=== PATIENT | female | born 1945 | race Caucasian/White ===

== ENCOUNTER 2018-06-27 11:16 | Observation (INO) | payer MEDICARE, SELFPAY ==
[2018-06-27 11:18] VITALS: BP 145/98; PULSE 59; RESP 18; TEMP 36.7; O2SAT 100
--- NOTE | 2018-06-27 11:41 | RAD_ITS ---
STUDY: X-RAY - RIGHT HIP REASON FOR EXAM: Female, 72 years old. Right hip pain. No known injury. TECHNIQUE: 2 views of the hip. COMPARISON: Comparison is made with prior study dated November 26, 2016. FINDINGS: The patient is status post Tejinder's pinning and side plate fixation of the right intertrochanteric fracture. This is unchanged. Healed right superior and inferior pubic rami fractures. RAD/HIP, UNI W/ Pelvis 2-3 Views IMPRESSION: No acute abnormality is seen. Electronically Signed: Martinez Amin, at 13:31 EST , Service support ,
[2018-06-27 12:17] LABS: Hematocrit 49.4 % (37-47); Mean Corp Hgb Conc 32.4 g/gl (32-36); Mean Corpuscular Volume 101.9 fL (81-99); Platelet Count 276 K/mm3 (150-450); RBC Distribution Width CV 14.8 % (11.6-14.6); RBC Distribution Width SD 52.8 fl (35.1-43.9); Red Blood Count 4.85 M/mm3 (4.2-5.4); White Blood Count 9.9 K/mm3 (4.4-11.0)
[2018-06-27] MEDS: HYDROcodone Bitartrate/Apap 5/325 Tablet PO (12:17)
[2018-06-27 12:18] LABS: Scan Indicated on CBC? Y/N NO
[2018-06-27 13:17] VITALS: BP 143/78; PULSE 61; RESP 17; O2SAT 97
[2018-06-27 13:36] LABS: International Normalized Ratio 1.1
[2018-06-27 13:37] LABS: Partial Thromboplast Time 27.7 Seconds (24.1-36.2)
[2018-06-27 13:41] LABS: ALB/GLOB Ratio 1.1 RATIO (0.9-2.4); AST(SGOT) 20 U/L (15-37); Alanine Aminotransfer ALT/SGPT 16 U/L (13-56); Alkaline Phosphatase 129 U/L (45-117); Anion Gap 11 (5-15); BUN 12 mg/dL (7-18); BUN/Creat Ratio 18.8 RATIO (10-20); Calcium,Total 8.1 mg/dL (8.5-10.1); Chloride 106 mmol/L (98-107); Creatinine, Serum 0.64 mg/dL (0.55-1.02); EST Glomerular Filtration Rate 98 mL/min (>60); Est Glom Filt Rate - Afr Amer 118 mL/min (>60); Estimated Creatinine Clearance 42.39 ml/min; Globulin 3.8 g/dL (2.2-4.2); Glucose 85 mg/dL (74-106); Protein, Total 7.8 g/dL (6.4-8.2); Sodium Level 141 mmol/L (136-145)
--- NOTE | 2018-06-27 14:50 | ED.DCSUM_ITS ---
- ER Visit Summary Date of Service: 06/27/18 Chief Complaint: Right leg pain History of Present Illness: The patient is a 72 F who states that when she woke this morning she had pain in her right leg. She describes it as being in the hip down the thigh and hamstring and into the calf. She states that it i ntermittently gets worse. She denies any rash. She denies any trauma. She has had prior orthopedic pinning of the right hip. She states that she has fallen twice because of the pain. She has history of hypertension hypothyroidism. She tells me she only has a glass of wine at nighttime. However from looking at prior records she has a history of alcoholism. She states that she has not had anything since last night. She is a long-term smoker. Physical Examination: Afebrile vital signs are stable Gen: Well-nourished well-developed Head: Normocephalic atraumatic Eyes: Perrl EOMI ENT: TMs clear no rhinorrhea moist mucous membranes Neck: Supple no lymphadenopathy no JVD nontender CVS: Regular rate rhythm no murmurs normal S1-S2 Respiratory: No distress clear to auscultation bilaterally chest nontender Abdomen: Soft nontender nondistended normal bowel sounds no masses Back: Nontender Extremity: Patient has intermittent tenderness to palpation of the calf hamstrin g and thigh musculature. There is no deformity. She is moving the extremity with full range of motion. Skin: Normal color no rash Neuro: alert orientated ?3 CN II-XII intact normal strength sensation reflexes Psych: Normal affect normal mood Test Results: Basic labs were negative. Alcohol level is 229. X-rays of the hip and pelvis were negative for fracture. Emergency Department Course and Treatment: Patient received 2 Macomb's and a liter of IV fluids. Patient states that the Macomb has not really helped. She reports continued discomfort. At this point I do not see an obvious cause for the patient's pain. She is rather cachectic and there is no edema or palpable cords. There is no obvious deformities. I discussed with her admission for physical therapy and for further evaluation as well as treatment for her alcoholism. She declines this. However she is unable to ambulate from the bed to the door. She is requiring assistance by nursing and a bedside commode. Impression: 1. Right leg pain 2. Alcoholism This note was generated with Dragon dictation software. It may contain incorrect words, spelling, and punctuation that were not noted in review of the chart prior to signing ED Disposition - Plan for ED Patient: Disposition: Home or Assisted Living Instructions: Possible Causes of Low Back or Leg Pain Referrals: Michael Brownlee MD [NON-STAFF] - (as soon as possible)
[2018-06-27] MEDS: 0.9% Normal Saline 1,000 ML 999 ML IV (14:54)
[2018-06-27 15:00] VITALS: BP 149/77; PULSE 63; RESP 17; O2SAT 97
--- NOTE | 2018-06-27 15:24 | RAD_ITS ---
STUDY: X-RAY - RIGHT KNEE REASON FOR EXAM: Female, 72 years old. Status post fall, pain TECHNIQUE: 4 view(s) of the knee. COMPARISON: None. FINDINGS: There is demineralization of the visualized distal femur. There is demineralization of the tibia and fibula. Normal proximal tibiofibular articulation. There is mild degenerative arthrosis of the medial femorotibial compartment. Normal lateral femorotibial compartment. There is mild degenerative arthrosis of the patellofemoral articulation. The soft tissue structures are unremarkable. RAD/Knee 4 or More Views IMPRESSION: Bony osteopenia. No visualized fracture. Electronically Signed: Stephanie Garner MD at 16:52 EST Tel , Service support ,
--- NOTE | 2018-06-27 16:27 | CM.ED ---
Social Work Assessment Referral Date: 07/11/18 Date of Assessment: 07/11/18 Informant: DR. HASSAN Reason for Consult: D/C PLANNING, POSSIBLE ALCOHOL ABUSE Information obtained from: PATIENT Living Arrangements: PATIENT LIVES HOME ALONE IN A 1 STORY APARTMENT WITH 0 STEPS TO ENTER. Employment/Financial: RETIRED FROM [employer]. DENIES ANY FINANCIAL ISSUES/CONCERNS. Supports: PATIENT STATES UTILIZES MEALS ON WHEELS AND HAS GOOD SUPPORT FROM CHILDREN. Social/Family Stressors: PATIENT CONCERNED WITH WHAT IS CAUSING HER PAIN. EMOTIONAL SUPPORT PROVIDED. Mental Health History: PATIENT ADMITS TO HX OF ANXIETY AND DEPRESSION WHEN HER . PATIENT REPORTS IN HIS LATER 30'S. PATIENT STATES WAS TREATED WITH MEDICATION AT THAT TIME. Substance Abuse History: PATIENT ADMITS TO ALCOHOL USE. PATIENT REPORTS DRINKS A GLASS OR MORE OF WINE EVERY NIGHT. PATIENT DOES NOT VIEW USE OF ALCOHOL A PROBLEM. Interventions: SOCIAL SERVICE ASSESSMENT EDUCATION AND EMOTIONAL SUPPORT Assessment: PATIENT IS A 72 Y/O FEMALE WHO PRESENTS TO THE ED WITH HIP PAIN. NURSING REPORTS ATTEMPTED TO WALK PATIENT AND PATIENT UNABLE TO AMBULATE SAFELY. DR. HASSAN REQUESTED THIS WORKER FOLLOW UP WITH PATIENT TO DISCUSS D/C PLANNING AND ALCOHOL USE PATIENT'S ALCOHOL LEVEL WAS A 229 UPON ARRIVAL. PATIENT STATES HAS HX OF R HIP FRACTURE AND STATES PAIN IS RADIATING DOWN RIGHT LEG. PATIENT STATES DID NOT FALL AND DOES NOT UNDERSTAND WHAT IS CAUSING ALL OF HER PAIN. PATIENT DOES NOT FEEL SAFE RETURNING HOME NOT BEING ABLE TO WALK SHE LIVES HOME ALONE. PATIENT STATES DME IN THE HOME CONSISTS OF WALKER, GRAB BARS, AND SHOWER CHAIR. PATIENT REPORTS HAS HAD HOME HEALTH SERVICES IN THE PAST ALONG WITH A SNF STAY AT [facility] AFTER HIP SURGERY 3-4 YEARS AGO. PATIENT REPORTS UTILIZES MEALS ON WHEELS AND DAUGHTER ASSISTS WITH TRANSPORTATION, [employer]OPPING AND LAUNDRY. PATIENT ADMITS TO HX OF ANXIETY AND DEPRESSION WHEN . PATIENT STATES AT THAT TIME, SHE WAS TREATED WITH MEDICATION. PATIENT ADMITS TO ALCOHOL USE. PATIENT STATES DRINKS A GLASS OR MORE OF WINE A NIGHT. PATIENT DOES NOT VIEW USE OF ALCOHOL A PROBLEM. INFORMED PATIENT A COMMERCIAL INSULATOR WILL BE FOLLOWING UP TOMORROW TO DISCUSS D/C PLANNING. PATIENT VERBALIZED UNDERSTANDING AND IS HOPING TO RETURN HOME UPON D/C. UPDATED NURSING AND DR. HASSAN ON THIS WORKER'S ASSESSMENT OF PATIENT. PLAN: PER DR. HASSAN, ANTICIPATE ADMISSION
[2018-06-27 17:17] VITALS: BP 164/78; PULSE 78; RESP 14; O2SAT 99
--- NOTE | 2018-06-27 18:17 | PCM.HP.STD ---
Problem List (1) Right knee pain Status: Acute Qualifiers: Chronicity: acute Qualified Code(s): M25.561 - Pain in right knee History of Present Illness Date of Admission: 06/27/18 Chief Complaint: right leg pain. The patient is a 72 year old F who has falls that she has no idea how the occur and had several last night. She does not recall how they happened or how she winds up but noted that when she try to get up this morning, her right leg hurts. Patient described the pain in her thigh near the anterior and posteriorly as well as her calf. Is never had anything like this before. She presented to the emergency room with this complaint and had a knee and hip x-ray that were negative for any acute fracture. Patient states that she drinks a glass to and 1/2-2 glasses of wine per night. Her last drink was sometime last evening. She denies any additional alcohol and denies any alcohol today, however, her alcohol level came at 229. Patient seem to scoffed at that notion of that her alcohol level should not be that high if she only had a glass and a half or 2 glasses of wine last night. [] Past Medical History Past Medical History (Chronic Problems): Chronic Problems Tobacco user (Chronic) Hypothyroidism (Chronic) Essential hypertension (Chronic) Chronic pain syndrome (Chronic) Alcoholic cirrhosis (Chronic) Alcohol abuse (Chronic) Allergies No Known Allergies Allergy (Verified 06/27/18 11:21) Home Medications: Ambulatory Orders Medication Instructions Recorded Sertraline HCl [Zoloft] 50 mg PO DAILY tablet 11/29/16 Levothyroxine [Synthroid] 75 mcg PO DAILY 06/27/18 Surgical History: appendectomy, hysterectomy, tonsillectomy, - - Right hip surgery Psychiatric History: No pertinent psych hx 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 Smoking Status: Heavy Smoker (>10/day) Tobacco Use: Cigarettes Alcohol: Heavy Drugs: None - *Family History Maternal History Items: Heart Disease Paternal History Items: Cancer - Suspected, Diabetes, Heart Disease Review of Systems Constitutional: Denies: Anorexia, Chills, Fever Eyes: Denies: Blurred vision, Double vision HEENT: Denies: Head Aches, Sinus Congestion, Sinus Drainage Cardiovascular: Denies: Chest Pain, Palpitations Respiratory: Denies: Cough, Shortness of breath at rest, Sputum production Gastrointestinal: Denies: Abdominal Pain, Constipation, Diarrhea Genitourinary: Denies: Dysuria Musculoskeletal: Reports: Joint Pain - Right knee pain, Leg Pain - Right leg pain Skin: Denies: Dryness, Jaundice Neurological: Reports: Balance problems. Denies: Blurred vision, Double vision Psychiatric: Denies: Anxiety, Depression, Homicidal Ideations, Suicidal Ideations Endocrine: Denies: Change in Body Habitus, Heat/ Cold Intolerance Hematologic/ Lymphatic: Denies: Easy Bruising, Easy Bleeding, Hx of blood clot Comment: A 10 point review of systems were negative except as mentioned in the history of present illness and the other review of systems. VTE Information - Inpt Only VTE Present on Admission: No VTE Mechan Device Prophylaxis: None VTE Pharm Prophylaxis ordered?: Yes Patient Problems: Active and Suspected Problems Right knee pain (Acute) - Physical Exam General: Alert, Cooperative, No apparent distress, - - Cachectic. Afebrile. HEENT: Atraumatic, PERRLA, EOMI, Normocephalic Oral: Moist Mucosa, No Gingival or Mucosal Lesions/ Ulcerations Neck: No Nodes, Thyroid Normal Size and Texture Lungs: Clear to auscultation, Normal air movement, No rhonchi, No wheeze Cardiovascular: Regular rate, Regular Rhythm, Normal S1, Normal S2, No murmurs Abdomen: Bowel Sounds Present, Soft, Non Tender, Non-Distended, No Hepato-splenomegaly Extremities: No edema, No Calf Tenderness Skin: No rashes, No breakdown Musculoskeletal: Cachexia, Muscle Wasting, - - No right knee effusion but tender to palpation at the tibial plateau. Also tender palpation medially along the knee joint. Psych/Mental Status: Normal Affect, Appropriate Vital Signs Temp Pulse Resp BP Pulse Ox 36.7 C 78 14 164/78 H 99 06/27/18 11:18 06/27/18 17:17 06/27/18 17:17 06/27/18 17:17 06/27/18 17:17 Oxygen Delivery Method Room Air Weight: 51.3 kg Body Mass Index (BMI) 20.0 Laboratory Tests Past 24 Hrs 06/27/18 06/27/18 06/27/18 11:55 11:55 11:55 WBC 9.9 RBC 4.85 Hgb 16.0 H Hct 49.4 H MCV 101.9 H MCH 33.0 H MCHC 32.4 RDW 14.8 H RDW Differential 52.8 H Plt Count 276 MPV 9.0 PT Cancelled INR Cancelled APTT Cancelled Sodium Cancelled Potassium Cancelled Chloride Cancelled Carbon Dioxide Cancelled Anion Gap Cancelled BUN Cancelled Creatinine Cancelled Estim Creat Clear Calc Cancelled Est GFR (MDRD) Af Amer Cancelled Est GFR (MDRD) Non-Af Cancelled BUN/Creatinine Ratio Cancelled Glucose Cancelled Calcium Cancelled Magnesium Cancelled Total Bilirubin Cancelled AST Cancelled ALT Cancelled Alkaline Phosphatase Cancelled Total Protein Cancelled Albumin Cancelled Globulin Cancelled Albumin/Globulin Ratio Cancelled Ethyl Alcohol 06/27/18 06/27/18 06/27/18 12:20 13:15 13:15 WBC RBC Hgb Hct MCV MCH MCHC RDW RDW Differential Plt Count MPV PT 14.0 INR 1.1 APTT 27.7 Sodium 141 Potassium 4.0 Chloride 106 Carbon Dioxide 24.0 Anion Gap 11 BUN 12 Creatinine 0.64 Estim Creat Clear Calc 42.39 Est GFR (MDRD) Af Amer 118 Est GFR (MDRD) Non-Af 98 BUN/Creatinine Ratio 18.8 Glucose 85 Calcium 8.1 L Magnesium 2.0 Total Bilirubin 0.20 AST 20 ALT 16 Alkaline Phosphatase 129 H Total Protein 7.8 Albumin 4.0 Globulin 3.8 Albumin/Globulin Ratio 1.1 Ethyl Alcohol 229.0 Clinical Impression(s) from Imaging Studies Hip/Pelvis X-Ray 06/27/18 11:41 IMPRESSION: No acute abnormality is seen. Electronically Signed: Martinez Amin, at 13:31 EST , Service support , Knee X-Ray 06/27/18 15:24 IMPRESSION: Bony osteopenia. No visualized fracture. Electronically Signed: Stephanie Garner MD at 16:52 EST Tel , Service support , Assessment/Plan All Active Problems Right knee pain (Acute) Fracture of inferior pubic ramus (Acute) 1. Right knee pain: Secondary to her fall. No obvious fracture on x-rays. Will order an MRI given her does not have a hairline fracture. Osteopenia was noted on the x-ray so I will check a 25-hydroxy vitamin D level. 2. Debility: We will have physical and occupational therapy evaluate her see if she requires any higher level care upon discharge. 3. Alcohol abuse: 229. Patient states that she only drank a glass or 2 glasses of wine last night. Either way there is no way that her that high roughly 18 hours after her last drink. I suspect you have the patient drank way more than a glass or 2 of wine or she is drinking this morning. On patient's history she has a history of alcohol abuse and alcoholic cirrhosis. Will start patient on thiamine and folate and monitor the patient closely for any signs or symptoms of alcohol withdrawal. Patient apparently told the ER doctor that she was concerned about delirium tremens but when I brought that up to her, patient denies she ever said that. 4. DVT prophylaxis with Lovenox 5. Falls: Patient states that she has no idea why she is falling. I presume is probably because she is intoxicated/inebriated. We will monitor the patient while she was here to see has any further events. Code Visit OBSV E&M: 21447 Initial observation care L3
--- NOTE | 2018-06-27 18:21 | HP.PCM_ITS ---
Problem List (1) Right knee pain Status: Acute Qualifiers: Chronicity: acute Qualified Code(s): M25.561 - Pain in right knee History of Present Illness Date of Admission: 06/27/18 Chief Complaint: right leg pain. The patient is a 72 year old F who has falls that she has no idea how the occur and had several last night. She does not recall how they happened or how she winds up but noted that when she try to get up this morning, her right leg hurts. Patient described the pain in her thigh near the anterior and posteriorly as well as her calf. Is never had anything like this before. She p resented to the emergency room with this complaint and had a knee and hip x-ray that were negative for any acute fracture. Patient states that she drinks a glass to and 1/2-2 glasses of wine per night. Her last drink was sometime last evening. She denies any additional alcohol and denies any alcohol today, however, her alcohol level came at 229. Patient seem to scoffed at that notion of that her alcohol level should not be that high if she only had a glass and a half or 2 glasses of wine last night. 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 [employer]ESSION[employer]ISTICS history Smoking Status: Heavy Smoker (>10/day) Tobacco Use: Cigarettes Alcohol: Heavy Drugs: None - *Family History Maternal History Items: Heart Disease Paternal History Items: Cancer - Suspected, Diabetes, Heart Disease Review of Systems Constitutional: Denies: Anorexia, Chills, Fever Eyes: Denies: Blurred vision, Double vision HEENT: Denies: Head Aches, Sinus Congestion, Sinus Drainage Cardiovascular: Denies: Chest Pain, Palpitations Respiratory: Denies: Cough, Shortness of breath at rest, Sputum production Gastrointestinal: Denies: Abdominal Pain, Constipation, Diarrhea Genitourinary: Denies: Dysuria Musculoskeletal: Reports: Joint Pain - Right knee pain, Leg Pain - Right leg pain Skin: Denies: Dryness, Jaundice Neurological: Reports: Balance problems. Denies: Blurred vision, Double vision Psychiatric: Denies: Anxiety, Depression, Homicidal Ideations, Suicidal Ideations Endocrine: Denies: Change in Body Habitus, Heat/ Cold Intolerance Hematologic/ Lymphatic: Denies: Easy Bruising, Easy Bleeding, Hx of blood clot Comment: A 10 point review of systems were negative except as mentioned in the history of present illness and the other review of systems. VTE Information - Inpt Only VTE Present on Admission: No VTE Mechan Device Prophylaxis: None VTE Pharm Prophylaxis ordered?: Yes Patient Problems: Active and Suspected Problems Right knee pain (Acute) - Physical Exam General: Alert, Cooperative, No apparent distress, - - Cachectic. Afebrile. HEENT: Atraumatic, PERRLA, EOMI, Normocephalic Oral: Moist Mucosa, No Gingival or Mucosal Lesions/ Ulcerations Neck: No Nodes, Thyroid Normal Size and Texture Lungs: Clear to auscultation, Normal air movement, No rhonchi, No wheeze Cardiovascular: Regular rate, Regular Rhythm, Normal S1, Normal S2, No murmurs Abdomen: Bowel Sounds Present, Soft, Non Tender, Non-Distended, No Hepato- splenomegaly Extremities: No edema, No Calf Tenderness Skin: No rashes, No breakdown Musculoskeletal: Cachexia, Muscle Wasting, - - No right knee effusion but tender to palpation at the tibial plateau. Also tender palpation medially along the knee joint. Psych/Mental Status: Normal Affect, Appropriate Vital Signs Temp Pulse Resp BP Pulse Ox 36.7 C 78 14 164/78 H 99 06/27/18 11:18 06/27/18 17:17 06/27/18 17:17 06/27/18 17:17 06/27/18 17:17 Oxygen Delivery Method Room Air Weight: 51.3 kg Body Mass Index (BMI) 20.0 Laboratory Tests Past 24 Hrs 06/27/18 06/27/18 06/27/18 11:55 11:55 11:55 WBC 9.9 RBC 4.85 Hgb 16.0 H Hct 49.4 H MCV 101.9 H MCH 33.0 H MCHC 32.4 RDW 14.8 H RDW Differential 52.8 H Plt Count 276 MPV 9.0 PT Cancelled INR Cancelled APTT Cancelled Sodium Cancelled Potassium Cancelled Chloride Cancelled Carbon Dioxide Cancelled Anion Gap Cancelled BUN Cancelled Creatinine Cancelled Estim Creat Clear Calc Cancelled Est GFR (MDRD) Af Amer Cancelled Est GFR (MDRD) Non-Af Cancelled BUN/Creatinine Ratio Cancelled Glucose Cancelled Calcium Cancelled Magnesium Cancelled Total Bilirubin Cancelled AST Cancelled ALT Cancelled Alkaline Phosphatase Cancelled Total Protein Cancelled Albumin Cancelled Globulin Cancelled Albumin/Globulin Ratio Cancelled Ethyl Alcohol 06/27/18 06/27/18 06/27/18 12:20 13:15 13:15 WBC RBC Hgb Hct MCV MCH MCHC RDW RDW Differential Plt Count MPV PT 14.0 INR 1.1 APTT 27.7 Sodium 141 Potassium 4.0 Chloride 106 Carbon Dioxide 24.0 Anion Gap 11 BUN 12 Creatinine 0.64 Estim Creat Clear Calc 42.39 Est GFR (MDRD) Af Amer 118 Est GFR (MDRD) Non-Af 98 BUN/Creatinine Ratio 18.8 Glucose 85 Calcium 8.1 L Magnesium 2.0 Total Bilirubin 0.20 AST 20 ALT 16 Alkaline Phosphatase 129 H Total Protein 7.8 Albumin 4.0 Globulin 3.8 Albumin/Globulin Ratio 1.1 Ethyl Alcohol 229.0 Clinical Impression(s) from Imaging Studies Hip/Pelvis X-Ray 06/27/18 11:41 IMPRESSION: No acute abnormality is seen. Electronically Signed: Martinez Amin, at 13:31 EST , Service support , Knee X-Ray 06/27/18 15:24 IMPRESSION: Bony osteopenia. No visualized fracture. Electronically Signed: Stephanie Garner MD at 16:52 EST Tel , Service support , Assessment/Plan All Active Problems Right knee pain (Acute) Fracture of inferior pubic ramus (Acute) 1. Right knee pain: Secondary to her fall. No obvious fracture on x-rays. Will order an MRI given her does not have a hairline fracture. Osteopenia was noted on the x-ray so I will check a 25-hydroxy vitamin D level. 2. Debility: We will have physical and occupational therapy evaluate her see if she requires any higher level care upon discharge. 3. Alcohol abuse: 229. Patient states that she only drank a glass or 2 glasses of wine last night. Either way there is no way that her that high roughly 18 hours after her last drink. I suspect you have the patient drank way more than a glass or 2 of wine or she is drinking this morning. On patient's history she has a history of alcohol abuse and alcoholic cirrhosis. Will start patient on thiamine and folate and monitor the patient closely for any signs or symptoms of alcohol withdrawal. Patient apparently told the ER doctor that she was concerned about delirium tremens but when I brought that up to her, patient denies she ever said that. 4. DVT prophylaxis with Lovenox 5. Falls: Patient states that she has no idea why she is falling. I presume is probably because she is intoxicated/inebriated. We will monitor the patient while she was here to see has any further events. Code Visit OBSV E&M: 18936 Initial observation care L3
--- NOTE | 2018-06-27 18:26 | NURSING ---
207 RT KNEE PAIN JOSSUE
[2018-06-27] MEDS: oxyCODONE 5 MG Tablet PO (19:00)
[2018-06-27 19:45] VITALS: BP 162/106; PULSE 71; RESP 18; TEMP 36.6; O2SAT 99
[2018-06-27 19:53] VITALS: BMI 19.6
[2018-06-27 20:10] LABS: Prealbumin 30.9 mg/dL (20.0-40.0); Thyroid Stim Hormone (TSH) 1.13 uIU/mL (0.358-3.74)
[2018-06-27] MEDS: Acetaminophen 325 MG Tablet 650 MG PO (20:11)
[2018-06-27 20:28] LABS: Vitamin D,25 Hydroxy < 4.2 ng/mL (29.95-100.01)
[2018-06-27] MEDS: oxyCODONE 5 MG Tablet 10 MG PO (22:58)
[2018-06-28 02:12] VITALS: BP 167/73; PULSE 75; RESP 18; TEMP 36.9; O2SAT 99
[2018-06-28] MEDS: Acetaminophen 325 MG Tablet 650 MG PO ×2 (02:14→09:14)
[2018-06-28] MEDS: 0.9% NaCl Peripheral Flush Adult/Peds IV (03:56)
[2018-06-28] MEDS: Ketorolac 15 MG/ML Vial IV (03:56)
[2018-06-28] MEDS: Levothyroxine 75 MCG Tablet PO (05:57)
[2018-06-28] MEDS: oxyCODONE 5 MG Tablet 10 MG PO (05:57)
--- NOTE | 2018-06-28 07:30 | MRI_ITS ---
STUDY: MRI RIGHT KNEE REASON FOR EXAM: Female, 72 years old. Right knee pain TECHNIQUE: Standardized fat and water weighted pulse sequences were obtained in all 3 orthogonal planes. COMPARISON: None. FINDINGS: Normal medial meniscus. Normal hyaline cartilage of the medial femorotibial compartment. Normal medial femoral condyle . There is mild to moderate marrow edema in the posterior medial tibial plateau without evidence of fracture. There is mild edema superficial to the MCL and mild thickening without evidence of tear. There is mild high signal and thickening in the semimembranosus distal tendon. Normal distal gracilis and semitendinosus tendons. Normal lateral meniscus. Normal hyaline cartilage of the lateral femorotibial compartment. Normal lateral femoral condyle and tibial plateau. Normal proximal tibiofibular articulation. Normal lateral collateral (fibular) ligament. Normal popliteus tendon. Normal biceps femoris tendon. Normal anterior cruciate ligament (ACL). Normal posterior cruciate ligament (PCL). Normal congruent patellofemoral articulation. Normal hyaline cartilage of the patellofemoral compartment. Normal medial and lateral patellar retinaculum. Normal quadriceps tendon. Normal patellar tendon. Normal Hoffa's fat pad. There is a small volume joint effusion. There is a small Ugalde's cyst. The soft tissues are unremarkable. MRI/Lower Ext Joint Only (Routine) IMPRESSION: Bony contusion of the medial tibial plateau posteriorly without evidence of fracture. Grade 1 MCL injury and mild tendinopathy of the semimembranosus distal tendon. Small joint effusion. Small Ugalde cyst. Electronically Signed: Yomaira Joseestefany, at 15:52 EST Tel , Service support ,
[2018-06-28 09:05] VITALS: BP 138/92; PULSE 74; RESP 16; TEMP 36.9; O2SAT 100
[2018-06-28] MEDS: Enoxaparin 40 MG/0.4 ML Syringe SC (09:14)
[2018-06-28] MEDS: Sertraline 50 MG Tablet PO (09:14)
[2018-06-28] MEDS: Folic Acid 1 MG Tablet PO (09:14)
[2018-06-28] MEDS: Thiamine Hydrochloride 100 MG Tablet PO (09:14)
--- NOTE | 2018-06-28 09:55 | CASEMGMT ---
Copies of LW/POA in [facility], however the LW is not signed. SW did print the POA form and place it in the paper chart. JENNY Guerin, CLERK OF SUPERIOR COURT
--- NOTE | 2018-06-28 10:46 | CASEMGMT ---
SW spoke w/pt in room, to follow up on initial assessment by SW in ED. Pt reports to be feeling better today and moving better. Pt does feel she will be able to manage at home rather than going somewhere for rehab. Pt walked 110 feet w/therapy today, SBA. Pt states she has her 's walker at home and can use this. Pt declined home health referral at this time also. Pt reports her children to be supportive, will take her wherever she needs to go. Pt states she fell on her knee going to the restroom at 3am. SW did ask about pt's alcohol use, pt continues to state that it is not a problem. SW spoke w/pt about LW, as it is not signed. Pt may be interested in redo-ing the document after discharge. SW gave pt a blank copy of LW with the card to call SW, let her know if she would like to complete the document she can call and set up an appointment. Pt states understanding. No further needs anticipated, pt home at discharge. JENNY Guerin, FINGERPRINTER
--- NOTE | 2018-06-28 11:03 | DS.PCM_ITS ---
Discharge Date and Diagnosis Date of Admission: 06/27/18 Date of Discharge: 06/28/18 - Primary Discharge Diagnosis Active and Suspected Problems Right knee pain (Acute) secondary to knee contusion Acute alcohol intoxication Alcohol use disorder Nicotine dependence - Secondary Discharge Diagnosis Chronic Problems Tobacco user (Chronic) Hypothyroidism (Chronic) Essential hypertension (Chronic) Chronic pain syndrome (Chronic) Alcoholic cirrhosis (Chronic) Alcohol abuse (Chronic) Hospital Course and Treatment Imaging Results: 06/28/18 07:30 Lower Ext Joint Only (Routine) [MRI] Stat Clinical Impression(s) from Imaging Studies Hip/Pelvis X-Ray 06/27/18 11:41 IMPRESSION: No acute abnormality is seen. Electronically Signed: Martinez Amin, at 13:31 EST , Service support , Knee X-Ray 06/27/18 15:24 IMPRESSION: Bony osteopenia. No visualized fracture. Electronically Signed: Stephanie Garner MD at 16:52 EST Tel , Service support , Lower Extremity MRI 06/28/18 07:30 IMPRESSION: Bony contusion of the medial tibial plateau posteriorly without evidence of fracture. Grade 1 MCL injury and mild tendinopathy of the semimembranosus distal tendon. Small joint effusion. Small Ugalde cyst. Electronically Signed: Yomaira Boston, at 15:52 EST Tel , Service support , None Operations: None Procedures: None Summary of Care Provided: The patient is a 72 year old F with past medical history of heavy alcohol use disorder, with alcoholic cirrhosis, hypertension, hypothyroidism, nicotine dependence who comes in with complaints of right leg pain. Patient has history of recurrent falls, and has no idea how they happened or how she ends up on the floor. She described the pain in her right knee as well as her thigh. X-ray of the hip and knee in the emergency room negative for any acute fractures. Patient's admitting alcohol level was 229. I had an extensive talk with her counseling her strongly against use of alcohol and nicotine. She insists that she will continue to drink because she is 72 years old and that the only pleasure she has left in her life. She was admitted to the regular nursing floor, no acute events overnight. Vitals remained stable. MRI of the knee showed bony contusion of the medial tibial plateau posteriorly without evidence of fracture, grade 1 MCL injury with mild tendinopathy of the semimembranosus distal tendon with small joint effusion. Patient refused follow-up with home health team. She was discharged in a stable state. Subjective: The day of discharge, patient was seen and examined. Pain in her right knee was improved. She had ambulated with physical and occupational therapy with a walker. She states she has a walker at home. She was bearing some weight on the right knee. Denied any fever or chills. No other acute complaints. - Physical Exam General: Alert, Oriented x3, Cooperative, No apparent distress, - - Appears cachectic HEENT: Atraumatic, PERRLA, EOMI, Normocephalic Oral: Moist Mucosa Neck: Supple Lungs: Clear to auscultation, Normal air movement Cardiovascular: Regular rate, Regular Rhythm, Normal S1, Normal S2, No murmurs Abdomen: Bowel Sounds Present, Soft, Non Tender, Non-Distended, No Hepato- splenomegaly Extremities: No edema Skin: No rashes, No breakdown Musculoskeletal: Tenderness - Over the right knee, no effusion seen or erythema. Lymphatic: No Cervical, Supraclavicular, or Inguinal Adenopathy Neurological: Cranial nerves II-XII grossly intact, Neuro grossly intact Psych/Mental Status: Normal Affect, Appropriate Vital Signs Temp Pulse Resp BP Pulse Ox 98.4 F 74 16 138/92 H 100 06/28/18 09:05 06/28/18 09:05 06/28/18 09:05 06/28/18 09:05 06/28/18 09:05 Oxygen Delivery Method Room Air Weight: 50.3 kg Body Mass Index (BMI) 19.6 Intake and Output for Last 24 Hours 06/26/18 06/27/18 06/28/18 23:59 23:59 23:59 Intake Total 900 / 900 Output Total 850 / 850 Balance 50 / 50 Laboratory Tests Past 24 Hrs 06/27/18 06/27/18 06/27/18 11:55 11:55 11:55 WBC 9.9 RBC 4.85 Hgb 16.0 H Hct 49.4 H MCV 101.9 H MCH 33.0 H MCHC 32.4 RDW 14.8 H RDW Differential 52.8 H Plt Count 276 MPV 9.0 PT Cancelled INR Cancelled APTT Cancelled Sodium Cancelled Potassium Cancelled Chloride Cancelled Carbon Dioxide Cancelled Anion Gap Cancelled BUN Cancelled Creatinine Cancelled Estim Creat Clear Calc Cancelled Est GFR (MDRD) Af Amer Cancelled Est GFR (MDRD) Non-Af Cancelled BUN/Creatinine Ratio Cancelled Glucose Cancelled Calcium Cancelled Magnesium Cancelled Total Bilirubin Cancelled AST Cancelled ALT Cancelled Alkaline Phosphatase Cancelled Total Protein Cancelled Albumin Cancelled Globulin Cancelled Albumin/Globulin Ratio Cancelled Prealbumin Vitamin D 25-Hydroxy TSH Ethyl Alcohol 06/27/18 06/27/18 06/27/18 12:20 12:20 13:15 WBC RBC Hgb Hct MCV MCH MCHC RDW RDW Differential Plt Count MPV PT 14.0 INR 1.1 APTT 27.7 Sodium Potassium Chloride Carbon Dioxide Anion Gap BUN Creatinine Estim Creat Clear Calc Est GFR (MDRD) Af Amer Est GFR (MDRD) Non-Af BUN/Creatinine Ratio Glucose Calcium Magnesium Total Bilirubin AST ALT Alkaline Phosphatase Total Protein Albumin Globulin Albumin/Globulin Ratio Prealbumin Vitamin D 25-Hydroxy < 4.2 L TSH Ethyl Alcohol 229.0 06/27/18 06/27/18 13:15 13:15 WBC RBC Hgb Hct MCV MCH MCHC RDW RDW Differential Plt Count MPV PT INR APTT Sodium 141 Potassium 4.0 Chloride 106 Carbon Dioxide 24.0 Anion Gap 11 BUN 12 Creatinine 0.64 Estim Creat Clear Calc 42.39 Est GFR (MDRD) Af Amer 118 Est GFR (MDRD) Non-Af 98 BUN/Creatinine Ratio 18.8 Glucose 85 Calcium 8.1 L Magnesium 2.0 Total Bilirubin 0.20 AST 20 ALT 16 Alkaline Phosphatase 129 H Total Protein 7.8 Albumin 4.0 Globulin 3.8 Albumin/Globulin Ratio 1.1 Prealbumin 30.9 Vitamin D 25-Hydroxy TSH 1.13 Ethyl Alcohol Discharge Diet: No Restrictions Discharge Activity: Return to Normal Activity Weight Bearing Status: Weight bearing as tolerated Home Medications: Medications to take at Discharge Sertraline HCl [Zoloft] 50 mg PO DAILY tablet 08/07/17 Levothyroxine [Synthroid] 75 mcg PO DAILY 06/27/18 Acetaminophen [Tylenol] 1,000 mg PO TID #60 tablet 06/28/18 Ensure Enlive 120 ml PO 4X/DAY #100 liquid 06/28/18 Folic Acid 1 mg PO DAILY@0800 #30 tablet 06/28/18 Thiamine Hydrochloride [Vitamin B1] 100 mg PO BIDCM #30 tablet 06/28/18 Following Prescrptions Were Given to Patient: Folic Acid 1 mg PO DAILY@0800 #30 tablet Thiamine Hydrochloride [Vitamin B1] 100 mg PO BIDCM #30 tablet Acetaminophen [Tylenol] 1,000 mg PO TID #60 tablet Ensure Enlive 120 ml PO 4X/DAY #100 liquid Primary Care Physician: Michael Brownlee MD [NON-STAFF] - (as soon as possible) Please follow up with your Primary Care Physician in: within 1-2 weeks Patient Instructions: Possible Causes of Low Back or Leg Pain Disposition: Home Minutes spent on discharge:: 40 Patient Condition:: Stable Medical Necessity - Tobacco Use Smoking Status: Heavy Smoker (>10/day) Tobacco Use: Cigarettes Meaningful Use Info Meaningful Use Diagnoses (Choose all that apply): None applicable Code Visit OBSV E&M: 49020 Observation care discharge
--- NOTE | 2018-06-28 11:03 | DCINST_ITS ---
- Discharge Diagnoses Current Active Problems: Current Active and Chronic Problems Right knee pain (Acute) Reason(s) for Visit for Discharge Instructions: Right knee pain You will use the following diet at home:: Cardiac Your food should be the consistency of: Regular Your liquids should be the consistency of: Regular/Thin Discharge Activity: Return to Normal Activity Weight Bearing Status: Weight bearing as tolerated Instructions: Possible Causes of Low Back or Leg Pain Additional Instructions: You are strongly advised to quit drinking and stop smoking. Continue to take all your medications as prescribed. Follow-up with your primary care doctor within 1-2 weeks. Allergies/Adverse Reactions: Allergies adhesive tape Adverse Reaction (Verified 06/27/18 18:49) Rash Medications to take at Discharge Sertraline HCl [Zoloft] 50 mg PO DAILY tablet 11/29/16 Levothyroxine [Synthroid] 75 mcg PO DAILY 06/27/18 Acetaminophen [Tylenol] 1,000 mg PO TID #60 tablet 06/28/18 Ensure Enlive 120 ml PO 4X/DAY #100 liquid 06/28/18 Folic Acid 1 mg PO DAILY@0800 #30 tablet 06/28/18 Thiamine Hydrochloride [Vitamin B1] 100 mg PO BIDCM #30 tablet 06/28/18 The following prescriptions were given: Folic Acid 1 mg PO DAILY@0800 #30 tablet Thiamine Hydrochloride [Vitamin B1] 100 mg PO BIDCM #30 tablet Acetaminophen [Tylenol] 1,000 mg PO TID #60 tablet Ensure Enlive 120 ml PO 4X/DAY #100 liquid Primary Care Physician: Michael Brownlee MD [NON-STAFF] - (as soon as possible) Please follow up with your Primary Care Physician in: within 1-2 weeks Test Results: Test results from this visit will be discussed in further detail at your follow- up appointment, if applicable. Proposed Discharge Date: 06/28/18
[2018-06-28 14:55] VITALS: BP 154/99; PULSE 73; RESP 18; TEMP 36.9; O2SAT 95
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
[2018-06-28] MEDS: Acetaminophen 500 MG Tablet 1000 MG PO (17:15)
== END 2018-06-28 17:27 | disposition home or self-care (01) ==
LOC: ED 15:07 → MS2 18:31
PROVIDERS: Emergency Provider Emergency Medicine; Visit Provider Internal Medicine
DX: S80.01XA Contusion of right knee, initial encounter (principal); W19.XXXA Unspecified fall, initial encounter; Y93.9 Activity, unspecified; Y92.9 Unspecified place or not applicable; Y99.9 Unspecified external cause status; F10.229 Alcohol dependence with intoxication, unspecified; Y90.7 Blood alcohol level of 200-239 mg/100 ml; E03.9 Hypothyroidism, unspecified; I10 Essential (primary) hypertension; Z79.899 Other long term (current) drug therapy; F17.210 Nicotine dependence, cigarettes, uncomplicated; R29.6 Repeated falls; K70.30 Alcoholic cirrhosis of liver without ascites; R64 Cachexia; Z68.1 Body mass index [BMI] 19.9 or less, adult; M79.651 Pain in right thigh
CPT/HCPCS: 73502; 73564; 73721; 80053; 80320; 82306; 83735; 84134; 84443; 85027; 85610; 85730; 96361; 96372; 96374; 97162; 97165; 99218; 99285; 99406; J7030; A4216; G0378; G0480

== ENCOUNTER 2020-11-10 13:01 | Emergency (ER) | payer MEDICARE, MEDICAID, SELFPAY ==
[2020-11-10] VITALS (7 sets, daily range): BP systolic 148–177; BP diastolic 91–110; PULSE 88–113; RESP 14–16; TEMP 36.6; O2SAT 96–98; BMI 19.5
--- NOTE | 2020-11-10 13:47 | EKG12_ITS ---
Test Reason : MENTAL HEALTH Blood Pressure : / mmHG Vent. Rate : 090 BPM Atrial Rate : 090 BPM P-R Int : 134 ms QRS Dur : 072 ms QT Int : 392 ms P-R-T Axes : 073 010 058 degrees QTc Int : 479 ms Normal sinus rhythm Nonspecific ST abnormality Abnormal ECG Confirmed by MARGI STANLEY, SUSY ([id number]), society editor VALENTIN XAVIER ([id number]) on 11/12/2020 12:33:36 PM Referred By: Confirmed By:SUSY KISER MD
--- NOTE | 2020-11-10 13:47 | CT_ITS ---
STUDY: CT BRAIN WITHOUT CONTRAST REASON FOR EXAM: Female, 75 years old. Altered loc RADIATION DOSAGE (If Supplied By Facility): CTDIvol = ( 44.99 ) mGy, DLP = ( 762.36 ) mGycm TECHNIQUE: Transaxial CT imaging of the brain was performed without administration of intravenous contrast material. Individualized dose optimization techniques were used for this CT. COMPARISON: Comparison is made with prior study dated 08/06/2012. FINDINGS: Normal soft tissue structures. Normal calvarium. There is mild cerebral atrophy with widening of the extra-axial spaces and ventricular dilatation. There are areas of decreased attenuation within the white matter tracts of the supratentorial brain, consistent with microvascular disease changes. Normal basal ganglia and thalami. Normal brainstem. Normal cerebellum. There is no intracranial hemorrhage. There are no findings of an acute ischemic infarction. Atherosclerotic calcification of the cavernous portions of the internal carotid arteries bilaterally. Normal visualized paranasal sinuses. CT/Brain/Head without Contrast IMPRESSION: Chronic involutional changes of the brain. Stable examination. Electronically Signed: Martinez Amin MD at 15:33 EDT , Service support ,
--- NOTE | 2020-11-10 13:47 | RAD_ITS ---
STUDY: X-RAY CHEST REASON FOR EXAM: Female, 75 years old. Altered LOC TECHNIQUE: Single AP portable view of the chest. COMPARISON: Comparison is made with prior study dated 04/01/2012. FINDINGS: There is hyperinflation of the lungs consistent with chronic obstructive lung disease (COPD). There is no demonstrated pleural abnormality. Normal size heart. Normal mediastinum and javy. Normal visualized pulmonary arteries. Normal visualized aortic arch and descending thoracic aorta. Normal visualized thoracic spine. Healed fracture of the proximal right humerus. There is no demonstrated abnormality of the visualized soft tissue structures of the upper abdomen. RAD/Chest 1 View (Portable) IMPRESSION: Stable examination. Electronically Signed: Martinez Amin MD at 15:18 EDT , Service support ,
--- NOTE | 2020-11-10 13:48 | EX.ED.VIS.PS ---
HPI HPI - Psych History of Present Illness Chief Complaint: Mental Health Informant: patient and spouse/S.O. Narrative Narrative: 75-year-old female presents to the emergency room with auditory and visual hallucinations. She tells me that about a year ago she started noticing that she was forgetting things. That has worsened. Her daughter is her power of workers compensation attorney and pays the bills for her. The daughter states that they check on her multiple times a week. She gets Meals on Wheels and has all these delivered. The daughter states that she went to visit her mom a month ago and seemed like a normal conversation however the neighbor called and stated that she reported that she did not know who she was. This morning when the daughter picked her up she was unsure if it was a large bear or a gorilla that was in her neighbors yard but it was just the neighbors dog. She notes at 1 point somebody came to visit her and 30 minutes after they left she kept hearing their voice and she got up to look for him. She tries to not get out of bed at night and takes a sleeping pill. She notes at least 2 to 3 glasses of red wine per night. PFSH PFSH Medical History Alcohol abuse Anxiety Cirrhosis Depression Smoker Home Medications diphenhydramine HCl [Benadryl] 150 mg PO QHS 11/10/20 [History Last Taken Unknown] naproxen sodium [Aleve] 440 mg PO Q12H 11/10/20 [History Last Taken Unknown] Allergy/AdvReac Type Severity Reaction Status Date / Time adhesive tape AdvReac Rash Verified 11/10/20 13:03 Surgical History History of appendectomy History of cholecystectomy History of hysterectomy Social History (Updated 11/10/20 @ 13:[address] Bhupinder Carrillo DO) Smoking Status: Heavy Smoker (>10/day) substance use type: does not use ROS ROS ED Constitutional Constitutional ED: Denies chills or weight loss Eyes Eyes: Denies change in vision or diplopia ENT ENT ED: Denies ear pain, rhinorrhea or sore throat Cardiovascular Cardiovascular: Denies chest pain, orthopnea, palpitations or racing heartbeat Respiratory/Chest Respiratory/Chest: Denies cough, dyspnea or orthopnea Gastrointestinal Gastrointestinal: Denies abdominal pain, diarrhea, nausea or vomiting Genitourinary Genitourinary ED: Denies dysuria, hematuria or urinary frequency Musculoskeletal Musculoskeletal: Denies arthralgias or myalgias Integumentary Denies abscess or rash Neurologic Neurologic: Denies headache(s) or weakness Psychiatric Psychiatric: Reports other Details: Dementia auditory visual hallucinations ; Denies anxiety, depression, suicidal ideation or suicidal thoughts Endocrine Endocrinology: Denies polydipsia, polyphagia or polyuria Allergic/Immunologic Allergic/Immunologic ED: Denies mouth swelling, tongue swelling or urticaria EXAM Physical Exam Const Vital Signs: 11/10/20 13:03 11/10/20 14:50 11/10/20 16:38 Temperature 97.9 F Temperature Source Temporal Pulse Rate 113 H 93 88 Respiratory Rate 14 16 16 Blood Pressure 177/102 H 173/110 H 165/92 H Blood Pressure Mean 127 131 116 Pulse Ox 97 97 98 Oxygen Delivery Method Room Air Room Air Positive well nourished and well developed General Appearance ED: well developed HEENT Reports normocephalic, head/scalp atraumatic and moist mucous membranes Eyes PERRL and EOMs intact bilaterally Neck no lymphadenopathy, supple and no JVD Resp normal respiratory effort and clear to auscultation bilaterally Cardio regular rate, regular rhythm and no murmurs GI normal to inspection, nondistended, normoactive bowel sounds and non-tender Palpation: soft Back/Spine no CVA tenderness and normal ROM Extremity normal to inspection General Extremety ED: Negative for edema General Extremity: Negative for edema Neuro oriented x3 and CN's II-XII intact bilaterally Sensorium / Orientation: alert Motor Exam: strength 5/5 throughout Psych mental status grossly normal Mood & Affect: Negative for depressed or tearful Skin no rashes or lesions noted and no wounds MDM MDM MDM Narrative Medical decision making narrative: Basic blood work was obtained which showed an elevated TSH at 5.73. Urinalysis shows 50-100 white cells negative nitrates positive leukocyte esterase and 1+ bacteria. She is asymptomatic. This will be sent for culture we can give her Keflex. Covid negative. My interpretation of the chest x-ray is no acute process. CT the brain negative. I think the patient most likely has dementia with now greater than 1 month history of auditory and visual hallucinations. I doubt that her asymptomatic cystitis is the cause of this. We will work with social work. Lab Data Attestation: I reviewed the patient's lab results. Labs: Laboratory Results - last 24 hr 11/10/20 11/10/20 11/10/20 14:47 14:47 14:47 WBC 9.3 RBC 3.90 L Hgb 14.0 Hct 40.5 MCV 103.8 H MCH 35.9 H MCHC 34.6 RDW Std Deviation 52.3 H RDW Coeff of Holly 13.7 Plt Count 182 MPV 8.7 Immature Gran % (Auto) 0.200 Neut % (Auto) 80.4 H Lymph % (Auto) 12.5 L [place] % (Auto) 6.0 Eos % (Auto) 0.5 Baso % (Auto) 0.4 Absolute Neuts (auto) 7.4 Absolute Lymphs (auto) 1.16 Nucleated RBC % 0 Sodium 137 Potassium 3.7 Chloride 103 Carbon Dioxide 26.0 Anion Gap 8 BUN 9 Creatinine 0.67 Estim Creat Clear Calc 39.47 Est GFR (MDRD) Af Amer 111 Est GFR (MDRD) Non-Af 92 BUN/Creatinine Ratio 13.5 Glucose 106 Calcium 8.5 Total Bilirubin 1.40 H AST 51 H ALT 25 Alkaline Phosphatase 148 H Troponin I High Sens 46.0 Total Protein 7.6 Albumin 4.2 Globulin 3.4 Albumin/Globulin Ratio 1.2 Lipase 48 L TSH 5.73 H Urine Color Urine Clarity Urine pH Ur Specific [place] Urine Protein Urine Glucose (UA) Urine Ketones Urine Occult Blood Urine Nitrite Urine Bilirubin Urine Urobilinogen Ur Leukocyte Esterase Urine RBC Urine WBC Ur Squamous Epith Cells Amorphous Sediment Urine Bacteria Urine Mucus Urine Opiates Screen Urine Methadone Screen Ur Barbiturates Screen Ur Phencyclidine Scrn Ur Amphetamines Screen U Methamphetamin-MDMA U Benzodiazepines Scrn Urine Cocaine Screen U Cannabinoids Screen Ur Drug Screen Comment Ethyl Alcohol < 3.0 11/10/20 11/10/20 16:00 16:00 WBC RBC Hgb Hct MCV MCH MCHC RDW Std Deviation RDW Coeff of Holly Plt Count MPV Immature Gran % (Auto) Neut % (Auto) Lymph % (Auto) [place] % (Auto) Eos % (Auto) Baso % (Auto) Absolute Neuts (auto) Absolute Lymphs (auto) Nucleated RBC % Sodium Potassium Chloride Carbon Dioxide Anion Gap BUN Creatinine Estim Creat Clear Calc Est GFR (MDRD) Af Amer Est GFR (MDRD) Non-Af BUN/Creatinine Ratio Glucose Calcium Total Bilirubin AST ALT Alkaline Phosphatase Troponin I High Sens Total Protein Albumin Globulin Albumin/Globulin Ratio Lipase TSH Urine Color Yellow Urine Clarity Cloudy Urine pH 8.0 Ur Specific [place] 1.010 Urine Protein 30 H Urine Glucose (UA) Normal Urine Ketones 50 H Urine Occult Blood 25 H Urine Nitrite Negative Urine Bilirubin Negative Urine Urobilinogen Normal Ur Leukocyte Esterase 500 H Urine RBC 0-5 SEEN Urine WBC 50-100 SEEN Ur Squamous Epith Cells 0-5 SEEN Amorphous Sediment 3+ PHOS Urine Bacteria 1+ Urine Mucus 0 SEEN Urine Opiates Screen NEGATIVE Urine Methadone Screen NEGATIVE Ur Barbiturates Screen NEGATIVE Ur Phencyclidine Scrn NEGATIVE Ur Amphetamines Screen NEGATIVE U Methamphetamin-MDMA NEGATIVE U Benzodiazepines Scrn NEGATIVE Urine Cocaine Screen NEGATIVE U Cannabinoids Screen NEGATIVE Ur Drug Screen Comment Ethyl Alcohol Radiography Diagnostic Testing: Radiology Impression Brain CT 11/10/20 13:47 IMPRESSION: Chronic involutional changes of the brain. Stable examination. Electronically Signed: Martinez Amin MD at 15:33 EDT , Service support , Chest X-Ray 11/10/20 13:47 IMPRESSION: Stable examination. Electronically Signed: Martinez Amin MD at 15:18 EDT , Service support , EKG Initial EKG: Attestation: I personally reviewed and interpreted this EKG as follows: Comments: EKG demonstrates a normal sinus rhythm at a rate of 90 bpm. No concerning features of ACS or ectopy noted. Discharge Plan Triage Chief Complaint: Mental Health ED Provider: Bhupinder Carrillo Dx/Rx/DC Orders Clinical Impression: Dementia, Hallucination, visual, Auditory hallucination, Elevated TSH, Cystitis Prescriptions: No Action diphenhydramine HCl [Benadryl] 50 mg Capsule 150 mg PO QHS RF: 0 naproxen sodium [Aleve] 220 mg Tablet 440 mg PO Q12H RF: 0 Primary Care Provider: Michael Brownlee Referrals: Michael Brownlee MD [Primary Care Provider] -
[2020-11-10 14:57] LABS: Absolute Lymphocyte Count 1.16 X10^3/uL (0.83-4.51); Absolute Neutrophil Count 7.4 X10^3/uL (2.0-7.7); Basophil# 0.04 X10^3/uL; Basophil% 0.4 % (0-1); Eosinophil# 0.05 X10^3/uL; Eosinophils% 0.5 % (0-5); Hematocrit 40.5 % (37-47); Lymphocyte # 1.16 X10^3/ul (0.83-4.51); Lymphocyte % 12.5 % (19-41); Mean Corp Hgb Conc 34.6 g/dL (32-36); Mean Corpuscular Hgb 35.9 pg (27.0-32.0); Mean Corpuscular Volume 103.8 fL (81-99); Mean Platelet Vol. 8.7 fl (6.2-12.0); Monocyte# 0.56 X10^3/uL; NRBC Flagged by Analyzer 0 % (0-5); Neutrophil # 7.44 X10^3/uL (2.7-7.7); Neutrophil % 80.4 % (47-70); Platelet Count 182 K/mm3 (150-450); RBC Distribution Width CV 13.7 % (11.6-14.6); RBC Distribution Width SD 52.3 fl (35.1-43.9); White Blood Count 9.3 K/mm3 (4.4-11.0)
--- NOTE | 2020-11-10 15:00 | CM.ED ---
SOCIAL WORK ASSESSMENT Referral Source: Dr. Carrillo Reason for Consult: Lawanda-psych evaluation Chief Compliant: Patient presents to [facility] ER by her daughter. Patient having auditory and visual hallucinations. Patient with no diagnosis of dementia at this time. 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 Triggers/Stressors: none reported Coping Skills: playing solitaire on the computer Abuse Issues: Patient denies any history of abuse. Substance Abuse History: Patient states I like my wine. Patient reports drinks 2 glasses of wine at night. Patient reports is a smoker. Risk to Self/Others: Suicidal- Patient denies any suicidal ideation. Homicidal- Patient denies any homicidal ideation. Violence- Patient denies any history of violence. Mental Status Exam: Orientation- A&OX3 Memory: fair Appearance/General Behavior: clean/appropriate, calm Mood/Affect: appropriate Communication Pattern: responds to questions Thought Process: patient reports more frequent auditory and visual hallucinations General Intellectual Functioning: Judgement: Insight: Assessment Plan:
--- NOTE | 2020-11-10 15:00 | CM.ED ---
SOCIAL WORK ASSESSMENT Referral Source: Dr. Carrillo Reason for Consult: [facility] evaluation Chief Compliant: Patient presents to [facility] ER by her daughter. Patient having auditory and visual hallucinations. Patient with no diagnosis of dementia at this time. 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 Triggers/Stressors: none reported Coping Skills: playing solitaire on the computer Abuse Issues: Patient denies any history of abuse. Substance Abuse History: Patient states I like my wine. Patient reports drinks 2 glasses of wine at night. Patient reports is a smoker. Risk to Self/Others: Suicidal- Patient denies any suicidal ideation. Homicidal- Patient denies any homicidal ideation. Violence- Patient denies any history of violence. Mental Status Exam: Orientation- A&OX3 Memory: fair Appearance/General Behavior: clean/appropriate, calm Mood/Affect: appropriate Communication Pattern: responds to questions Thought Process: patient reports more frequent auditory and visual hallucinations Judgement: fair Assessment: Met with patient and daughter in room. Patient with auditory and visual hallucinations. Patient reported to some forgetfulness over the last year. Daughter states forgetfulness has become worse. Patient today having visual hallucinations that neighbors dog was either a large bear or a gorilla. Patient has not been formally diagnosed with dementia per Dr. Carrillo. Daughter concerned for patient's safety due to active hallucinations. Collaboration with Dr. Carrillo, recommending referral to [facility] for evaluation and stabilization. This worker to facilitate placement. Plan: Referral to [facility] JESUS Galarza, SYL
[2020-11-10 15:27] LABS: Alcohol, Blood (Medical)-Serum < 3.0 mg/dL
[2020-11-10 15:38] LABS: ALB/GLOB Ratio 1.2 RATIO (0.9-2.4); AST(SGOT) 51 U/L (15-37); Alanine Aminotransfer ALT/SGPT 25 U/L (13-56); Albumin, Serum 4.2 g/dL (3.2-5.0); Alkaline Phosphatase 148 U/L (45-117); Anion Gap 8 (5-15); BUN 9 mg/dL (7-18); BUN/Creat Ratio 13.5 RATIO (10-20); Calcium,Total 8.5 mg/dL (8.5-10.1); Chloride 103 mmol/L (98-107); Creatinine, Serum 0.67 mg/dL (0.55-1.02); EST Glomerular Filtration Rate 92 mL/min (>60); Est Glom Filt Rate - Afr Amer 111 mL/min (>60); Estimated Creatinine Clearance 39.47 ml/min; Globulin 3.4 g/dL (2.2-4.2); Glucose 106 mg/dL (74-106); Lipase 48 U/L (73-393); Potassium 3.7 mmol/L (3.5-5.1); Protein, Total 7.6 g/dL (6.4-8.2); Sodium Level 137 mmol/L (136-145); Thyroid Stim Hormone (TSH) 5.73 uIU/mL (0.358-3.74)
[2020-11-10 16:12] LABS: Mucous, Urine 0 SEEN /hpf (<or=2+)
[2020-11-10 16:25] LABS: Color, Urine Yellow (Yellow); Glucose, Dipstick Normal (Normal); Ketone-Dipstick 50 mg/dl (Negative); Protein-Dipstick 30 mg/dl (Negative); Urine Bilirubin Dipstick Negative (Negative); Urine Clarity Cloudy (Clear)
[2020-11-10 16:26] LABS: Amorphous Sediment 3+ PHOS; Bacteria 1+ /hpf (None Seen); Leukocyte Esterase-Dipstick 500 /ul (Negative); Nitrite-Dipstick Negative (Negative); Occult Blood-Urine 25 /ul (Negative); Red Blood Cells-Urine 0-5 SEEN /hpf (0-5); Squamous Epithelial Cells - UA 0-5 SEEN /hpf (5-10); Urine Urobilinogen Normal (Normal); White Blood Cells 50-100 SEEN /hpf (0-5)
[2020-11-10 16:41] LABS: Amphetamine Urine VISTA NEGATIVE (<1000 ng/mL); Barbiturate Urine VISTA NEGATIVE (< 200 ng/mL); Benzodiazepine Urine VISTA NEGATIVE (< 200 ng/mL); Cocaine Urine VISTA NEGATIVE (< 300 ng/mL); Ecstacy Urine VISTA NEGATIVE (< 500 ng/mL); Methadone Urine VISTA NEGATIVE (< 300 ng/mL); PCP Urine VISTA NEGATIVE (< 25 ng/mL); THC Urine VISTA NEGATIVE (< 50 ng/mL); Vista UDS pH Range 6
[2020-11-10] MEDS: Cephalexin 250 MG Capsule 500 MG PO (16:46)
--- NOTE | 2020-11-10 17:06 | CM.ED ---
SOCIAL WORK Referral faxed to [facility]. Pending review at this time. Jenny Diaz, CHOPPER GUN OPERATOR, FUSION JUNCTURE GRINDER
--- NOTE | 2020-11-10 18:31 | CM.ED ---
SOCIAL WORK Call to [facility] to check on status of referral. Awaiting call back from intake. Jenny Diaz, SKIP TENDER, WAREHOUSE SELECTOR
--- NOTE | 2020-11-10 19:18 | CM.ED ---
SOCIAL WORK Call to [facility] regarding referral, spoke with Maritza who reports Sanjuana with intake is on the phone with physician at this time and will be calling this worker back. Jenny Diaz, WILDLIFE MANAGEMENT PROFESSOR, CORSAGE MAKER
--- NOTE | 2020-11-10 19:47 | CM.ED ---
SOCIAL WORK Patient has been accepted to [facility] by Dr. Pascual. Sanjuana with [facility] requesting curing pickling packer time of 10:30p. [facility] to set up transport for 10:30p curing pickling packer. Nurse to call report to [phone]. Patient and daughter updated. Jenny Diaz, NAIL SPECIALIST, DOOR ASSEMBLER
[2020-11-10] MEDS: Calcium Carbonate 500 MG Tablet PO (20:16)
== END 2020-11-10 23:17 ==
PROVIDERS: Emergency Provider Emergency Medicine; PCP Family Medicine
DX: F03.90 Unspecified dementia, unspecified severity, without behavioral disturbance, psychotic disturbance, mood disturbance, and anxiety (principal); N30.90 Cystitis, unspecified without hematuria; R44.0 Auditory hallucinations; R44.1 Visual hallucinations; F17.210 Nicotine dependence, cigarettes, uncomplicated; F32.9 Major depressive disorder, single episode, unspecified; F41.9 Anxiety disorder, unspecified
CPT/HCPCS: 70450; 71045; 80053; 80307; 81001; 82077; 83690; 84443; 84484; 85025; 87077; 87086; 87088; 87186; 87426; 93005; 99285; A4216

== ENCOUNTER → 2020-11-26 14:28 | Outpatient (CLI) | payer MEDICARE, SELFPAY ==
[2020-11-10 13:03] VITALS: BMI 19.5
[2020-11-26 15:48] LABS: Absolute Lymphocyte Count 1.01 X10^3/uL (0.83-4.51); Absolute Neutrophil Count 4.4 X10^3/uL (2.0-7.7); Basophil# 0.07 X10^3/uL; Basophil% 1.1 % (0-1); Eosinophil# 0.19 X10^3/uL; Hematocrit 38.3 % (37-47); Hemoglobin 12.4 g/dL (12.0-15.0); Lymphocyte # 1.01 X10^3/ul (0.83-4.51); Lymphocyte % 16.1 % (19-41); Mean Corp Hgb Conc 32.4 g/dL (32-36); Mean Corpuscular Hgb 34.5 pg (27.0-32.0); Mean Corpuscular Volume 106.7 fL (81-99); Mean Platelet Vol. 9.4 fl (6.2-12.0); Monocyte# 0.57 X10^3/uL; Monocyte% 9.1 % (0-10); NRBC Flagged by Analyzer 0 % (0-5); Neutrophil # 4.42 X10^3/uL (2.7-7.7); Neutrophil % 70.2 % (47-70); Platelet Count 499 K/mm3 (150-450); RBC Distribution Width CV 13.9 % (11.6-14.6); RBC Distribution Width SD 54.4 fl (35.1-43.9); Red Blood Count 3.59 M/mm3 (4.2-5.4); White Blood Count 6.3 K/mm3 (4.4-11.0)
[2020-11-26 15:53] LABS: Color, Urine Yellow (Yellow); Glucose, Dipstick Normal (Normal); Ketone-Dipstick Negative (Negative); Leukocyte Esterase-Dipstick 25 /ul (Negative); Nitrite-Dipstick Negative (Negative); Occult Blood-Urine Negative /ul (Negative); Protein-Dipstick Negative (Negative); Urine Bilirubin Dipstick Negative (Negative); Urine Clarity Sl. Cloudy (Clear); Urine Urobilinogen Normal (Normal)
[2020-11-26 16:12] LABS: T3 Total - Triiodothyronine 0.81 ng/mL (0.6-1.81)
[2020-11-26 16:31] LABS: AST(SGOT) 20 U/L (15-37); Alanine Aminotransfer ALT/SGPT 20 U/L (13-56); Albumin, Serum 3.6 g/dL (3.2-5.0); Alkaline Phosphatase 111 U/L (45-117); Anion Gap 6 (5-15); BUN 8 mg/dL (7-18); BUN/Creat Ratio 12.2 RATIO (10-20); Calcium,Total 8.9 mg/dL (8.5-10.1); Chloride 109 mmol/L (98-107); Creatinine, Serum 0.66 mg/dL (0.55-1.02); EST Glomerular Filtration Rate 94 mL/min (>60); Est Glom Filt Rate - Afr Amer 114 mL/min (>60); Globulin 3.7 g/dL (2.2-4.2); Glucose 99 mg/dL (74-106); Potassium 3.9 mmol/L (3.5-5.1); Protein, Total 7.3 g/dL (6.4-8.2); Sodium Level 138 mmol/L (136-145); T4 Free Direct 0.67 ng/dL (0.76-1.46); Thyroid Stim Hormone (TSH) 4.85 uIU/mL (0.358-3.74)
== END ==
PROVIDERS: PCP Family Medicine; Referring Provider Physician Assistant; Visit Provider Physician Assistant
DX: E03.9 Hypothyroidism, unspecified (principal); N30.00 Acute cystitis without hematuria; R44.0 Auditory hallucinations; R44.1 Visual hallucinations; K74.60 Unspecified cirrhosis of liver
CPT/HCPCS: 36415; 80053; 81002; 82140; 84439; 84443; 84480; 85025

== ENCOUNTER 2021-07-11 11:19 | Emergency (ER) | payer MEDICARE, MEDICAID, SELFPAY ==
[2021-07-11 11:21] VITALS: BP 191/90; PULSE 70; RESP 17; TEMP 36.9; O2SAT 100
--- NOTE | 2021-07-11 11:41 | CT_ITS ---
STUDY: CTA OF THE ABDOMINAL AORTA AND BILATERAL LOWER EXTREMITIES REASON FOR EXAM: Female, 76 years old. Leg weakness RADIATION DOSAGE (If Supplied By Facility): CTDIvol = ( 4.77 ) mGy, DLP = ( 1104.47 ) mGycm TECHNIQUE: Axial CT angiography multi-detector data acquisition was obtained from the to the following intravenous administration of IV 100mL Isovue-370. Axial images and MIP images were reconstructed from the axial data set. Post-processing of the angiographic images was performed, with multiplanar reformation and 3D reconstruction. Individualized dose optimization techniques were used for this CT. TECHNICAL QUALITY: Good COMPARISON: None. Descriptors of Narrowing: None (0%) Mild (< 50%) Moderate (50-70%) Severe (70-90%) Subtotal/Total Occlusion (90-100%) Non-Evaluable (technically non-diagnostic FINDINGS: Abdominal aorta: Diffuse atherosclerotic calcifications. No significant stenosis. No evidence of aneurysm. Celiac and superior mesenteric arteries: No demonstrated narrowing. Inferior mesenteric artery: No demonstrated narrowing. Right renal artery(arteries): Minimal calcification of the origin of the right renal artery without significant stenosis. Left renal artery(arteries): No demonstrated narrowing. Right common iliac artery: Atherosclerotic calcifications at its origin with mild stenosis. Right external iliac artery: No demonstrated narrowing. Right internal iliac artery: No demonstrated narrowing. Left common iliac artery: No demonstrated narrowing. Left external iliac artery: Atherosclerotic is patient''s of this origin with mild stenosis. Left internal iliac artery: No demonstrated narrowing. RIGHT LOWER EXTREMITY Right common femoral artery: There is mild diffuse narrowing. Right profundus femoris: No demonstrated narrowing. Right superficial femoral: No demonstrated narrowing. Right popliteal artery: No demonstrated narrowing. Right tibioperoneal trunk: No demonstrated narrowing. Right anterior tibial artery: Visualized to just below the level of the calf. Right posterior tibial artery: Visualized to the level of the calf. Right peroneal artery: Not clearly seen and its origin. LEFT LOWER EXTREMITY Left common femoral artery: No demonstrated narrowing. Left profundus femoris: No demonstrated narrowing. Left superficial femoral: No demonstrated narrowing. Left popliteal artery: No demonstrated narrowing. Left tibioperoneal trunk: There is moderate diffuse narrowing. Left anterior tibial artery: Not visualized. Left posterior tibial artery: Not visualized. Left peroneal artery: Not visualized. CT/CTA Abd w/Runoff W/WO Contrast IMPRESSION: 1. Mild diffuse atherosclerotic calcifications of the abdominal aorta without significant stenosis or aneurysm. 2. No significant stenosis in the common femoral, superficial femoral or popliteal arteries bilaterally. 3. Nonvisualization of the vessels below the level of the calfs bilaterally likely due to timing of contrast. Occlusion is less likely. The lower legs cannot be accurately evaluated on this exam. Electronically Signed: Raymundo Kilgore MD at 13:09 EDT ,
--- NOTE | 2021-07-11 11:45 | EDS_ITS ---
HPI History of Present Illness Chief Complaint: Lower Extremity Injury Narrative Narrative: 76-year-old female presenting with bilateral foot pain. She states he has a history of undiagnosed neuropathy in her feet. She states that she is never actually been told she has neuropathy. She used to see a primary care physician and Dr. Weir but he has retired. She currently sees Dr. Brownlee and was seen by him this morning. She is describing pain in her feet and difficulty walking. She has had no trauma to her feet. She states that over the last 2 weeks her toes have become more red and painful. She is not treated with anything for neuropathy. When she saw Dr. Brownlee this morning he told her to come to the emergency room. Patient states that she is able to ambulate and uses a walker and assist herself by using furniture. She is not had any falls. Patient is a smoker. She herself believes it is a circulatory problem. PFSH PFSH Medical History Alcohol abuse Anxiety Cirrhosis Depression Neuropathy Smoker Home Medications levothyroxine 50 mcg PO DAILY 07/11/21 [History Last Taken Unknown] Allergy/AdvReac Type Severity Reaction Status Date / Time adhesive tape AdvReac Rash Verified 07/11/21 11:21 Surgical History History of appendectomy History of cholecystectomy History of hysterectomy Social History Smoking Status: Current every day smoker tobacco type: cigarettes substance use type: does not use ROS ROS ED Constitutional Constitutional ED: Denies chills or fever(s) Eyes Eyes: Denies blurry vision or diplopia ENT ENT ED: Denies rhinorrhea or sore throat Cardiovascular Cardiovascular: Denies chest pain or palpitations Respiratory/Chest Respiratory/Chest: Denies cough or dyspnea Gastrointestinal Gastrointestinal: Denies abdominal pain, nausea or vomiting Genitourinary Genitourinary ED: Denies dysuria or hematuria Musculoskeletal Musculoskeletal: Reports other Details: Bilateral foot pain. Integumentary Denies Abrasions or rash Neurologic Neurologic: Denies headache(s) Psychiatric Psychiatric: Denies anxiety or depression EXAM Physical Exam Const Vital Signs: 07/11/21 11:21 07/11/21 14:02 Temperature 98.5 F Temperature Source Temporal Pulse Rate 70 76 Respiratory Rate 17 15 Blood Pressure 191/90 H 179/93 H Blood Pressure Mean 123 Pulse Ox 100 98 Oxygen Delivery Method Room Air Positive well nourished General Appearance ED: NAD HEENT Reports moist mucous membranes normocephalic and atraumatic Eyes PERRL Resp normal respiratory effort and clear to auscultation bilaterally Cardio regular rate and regular rhythm Extremity Extremity Narrative: 1+ pedal pulses bilaterally. All toes are slightly erythematous. She does have cap refill throughout. No bony abnormalities. Neuro oriented x3 Sensorium / Orientation: alert Psych mental status grossly normal Skin Skin Narrative: As described above. MDM MDM MDM Narrative Medical decision making narrative: Patient does appear to have blood flow to the bilateral feet although she does have pain in her toes. There is not evidence of infection here. No history of trauma. I obtained blood work which is normal. Her thyroid studies are within normal limits as well. I did order a CT with runoffs to evaluate the vascular supply however this was nondiagnostic. The radiologist cannot see the contrast below the level of the calves. He does document that it is less likely from occlusion and more likely from the timing of the bolus. I did staff genetic counselor the patient on this finding and she was comfortable following up with Dr. Timmons outpatient versus her own vascular surgeon. I do believe she has some peripheral vascular disease but I do not believe that she needs anything acutely done today. Impression: 1. Peripheral vascular disease 2. Peripheral neuropathy Lab Data Attestation: I reviewed the patient's lab results. Labs: Laboratory Results - last 24 hr 07/11/21 07/11/21 11:52 11:52 WBC 4.8 RBC 4.14 L Hgb 14.7 Hct 42.2 MCV 101.9 H MCH 35.5 H MCHC 34.8 RDW Std Deviation 51.2 H RDW Coeff of Holly 13.6 Plt Count 209 MPV 9.0 Immature Gran % (Auto) 0.400 Neut % (Auto) 70.7 H Lymph % (Auto) 15.[address] [place] % (Auto) 10.5 H Eos % (Auto) 2.5 Baso % (Auto) 0.6 Absolute Neuts (auto) 3.4 Absolute Lymphs (auto) 0.73 L Nucleated RBC % 0 Sodium 138 Potassium 4.1 Chloride 109 H Carbon Dioxide 27.0 Anion Gap 2 L BUN 9 Creatinine 0.76 Estim Creat Clear Calc 39.94 Est GFR (MDRD) Af Amer 96 Est GFR (MDRD) Non-Af 79 BUN/Creatinine Ratio 11.9 Glucose 103 Calcium 8.6 Total Bilirubin 0.30 AST 13 L ALT 18 Alkaline Phosphatase 104 Total Protein 6.9 Albumin 3.6 Globulin 3.3 Albumin/Globulin Ratio 1.1 TSH 3.54 Free T4 0.95 Free T3 pg/dL 2.4 Radiography Diagnostic Testing: Clinical Impression(s) from Imaging Studies Abdomen/Pelvis CTA 07/11/21 11:41 IMPRESSION: 1. Mild diffuse atherosclerotic calcifications of the abdominal aorta without significant stenosis or aneurysm. 2. No significant stenosis in the common femoral, superficial femoral or popliteal arteries bilaterally. 3. Nonvisualization of the vessels below the level of the calfs bilaterally likely due to timing of contrast. Occlusion is less likely. The lower legs cannot be accurately evaluated on this exam. Electronically Signed: Raymundo Kilgore MD at 13:09 EDT , Discharge Plan Triage Chief Complaint: Lower Extremity Injury ED Provider: Jose Payton Dx/Rx/DC Orders Instructions: ED Neuropathy, Peripheral, ED Peripheral Artery Disease (PAD) Prescriptions: No Action levothyroxine 50 mcg tablet 50 mcg PO DAILY RF: 0 Primary Care Provider: Michael Brownlee Referrals: Roc Timmons MD [STAFF PHYSICIAN] - As soon as possible Michael Brownlee MD [Primary Care Provider] - Disposition Disposition: Home, Self Care Discharge Date/Time: 07/11/21 14:03
[2021-07-11 12:06] LABS: Absolute Lymphocyte Count 0.73 X10^3/uL (0.83-4.51); Absolute Neutrophil Count 3.4 X10^3/uL (2.0-7.7); Basophil# 0.03 X10^3/uL; Basophil% 0.6 % (0-1); Eosinophil# 0.12 X10^3/uL; Eosinophils% 2.5 % (0-5); Hematocrit 42.2 % (37-47); Hemoglobin 14.7 g/dL (12.0-15.0); Lymphocyte # 0.73 X10^3/ul (0.83-4.51); Lymphocyte % 15.3 % (19-41); Mean Corp Hgb Conc 34.8 g/dL (32-36); Mean Corpuscular Hgb 35.5 pg (27.0-32.0); Mean Corpuscular Volume 101.9 fL (81-99); Monocyte% 10.5 % (0-10); NRBC Flagged by Analyzer 0 % (0-5); Neutrophil # 3.37 X10^3/uL (2.7-7.7); Neutrophil % 70.7 % (47-70); Platelet Count 209 K/mm3 (150-450); RBC Distribution Width CV 13.6 % (11.6-14.6); RBC Distribution Width SD 51.2 fl (35.1-43.9); Red Blood Count 4.14 M/mm3 (4.2-5.4); White Blood Count 4.8 K/mm3 (4.4-11.0)
[2021-07-11 12:25] LABS: ALB/GLOB Ratio 1.1 RATIO (0.9-2.4); AST(SGOT) 13 U/L (15-37); Alanine Aminotransfer ALT/SGPT 18 U/L (13-56); Albumin, Serum 3.6 g/dL (3.2-5.0); Alkaline Phosphatase 104 U/L (45-117); Anion Gap 2 (5-15); BUN 9 mg/dL (7-18); BUN/Creat Ratio 11.9 RATIO (10-20); Calcium,Total 8.6 mg/dL (8.5-10.1); Chloride 109 mmol/L (98-107); Creatinine, Serum 0.76 mg/dL (0.55-1.02); EST Glomerular Filtration Rate 79 mL/min (>60); Est Glom Filt Rate - Afr Amer 96 mL/min (>60); Estimated Creatinine Clearance 39.94 ml/min; Free T3 2.4 pg/mL (2.18-3.98); Globulin 3.3 g/dL (2.2-4.2); Glucose 103 mg/dL (74-106); Potassium 4.1 mmol/L (3.5-5.1); Protein, Total 6.9 g/dL (6.4-8.2); Sodium Level 138 mmol/L (136-145); T4 Free Direct 0.95 ng/dL (0.76-1.46); Thyroid Stim Hormone (TSH) 3.54 uIU/mL (0.358-3.74)
[2021-07-11 14:02] VITALS: BP 179/93; PULSE 76; RESP 15; O2SAT 98
== END 2021-07-11 14:03 | disposition home or self-care (01) ==
PROVIDERS: Emergency Provider Student in an Organized Health Care Education/Training Program; PCP Family Medicine; Visit Provider Student in an Organized Health Care Education/Training Program
DX: I73.9 Peripheral vascular disease, unspecified (principal); G62.9 Polyneuropathy, unspecified; F17.210 Nicotine dependence, cigarettes, uncomplicated; R26.2 Difficulty in walking, not elsewhere classified; Z79.899 Other long term (current) drug therapy
CPT/HCPCS: 75635; 80053; 84439; 84443; 84481; 85025; 99283; J7030; Q9967

== ENCOUNTER 2021-08-05 09:18 | Outpatient (CLI) | payer MEDICARE, MEDICAID, SELFPAY ==
--- NOTE | 2021-08-05 09:22 | ART_ITS ---
Reason For Study: BILATERAL LEG PAIN Procedure A bilateral lower extremity continuous wave Doppler with analog waveform analysis,segmental pressures,and ankle brachial indexes without exercise. Left Segmental Pressures Left brachial= 180mmHg. Left posterior tibial artery = 188mmHg. Left dorsalis pedis artery = 186mmHg. Left digit = 193 mmHg. The left posterior tibial artery waveforms are triphasic. The left dorsalis pedis waveforms are biphasic. Right Segmental Pressures Right brachial= 163mmHg. Right posterior tibial artery = 190mmHg. Right dorsalis pedis artery = 194mmHg. Right digit = 178 mmHg. The right posterior tibial artery waveforms are triphasic. The right dorsalis pedis waveforms are triphasic. Indices The right resting ankle brachial index is 1.08. The right ankle brachial index by the posterior tibial artery is 1.06. The right ankle brachial index by the dorsalis pedis is 1.08. The right digital-brachial index is 0.99. The left resting ankle brachial index is 1.04. The left ankle brachial index by the posterior tibial artery is 1.04. The left ankle brachial index by the dorsalis pedis is 1.03. The left digital-brachial index is 1.07. VL/Lower Ext Art Exam w/o Exercis Interpretation Summary Normal right lower extremity PT and DP ankle-brachial index of 1.061.0 respecti vely with triphasic Doppler waveforms Normal left lower extremity PT and DP ankle-brachial indices of 1.04 and 1.03 r espectively with triphasic Doppler waveforms of the posterior tibialis and biphasic at the dorsa lis pedis. Digital brachial indices are normal bilaterally on the right at 0.99 and on the left at 1.07 Ordering Physician: Roc Timmons Referring Physician: Michael Brownlee Performed By: Magdalena Romo RVT, RDCS
== END 2021-08-05 23:59 | disposition home or self-care (01) ==
LOC: CVS 09:22
PROVIDERS: PCP Family Medicine; Visit Provider Surgery
DX: I73.9 Peripheral vascular disease, unspecified (principal); M79.604 Pain in right leg; M79.605 Pain in left leg
CPT/HCPCS: 93923

== ENCOUNTER 2021-12-27 00:44 | Emergency (ER) | payer MEDICARE, SELFPAY ==
[2021-12-27] VITALS (10 sets, daily range): BP systolic 78–174; BP diastolic 45–89; PULSE 69–96; RESP 14–22; TEMP 36.8–37.1; O2SAT 93–99
--- NOTE | 2021-12-27 01:20 | EDS_ITS ---
HPI History of Present Illness Chief Complaint: Flank Pain Narrative Narrative: Patient is a 76-year-old female from home with past medical history of hypertension peripheral vascular disease alcoholic cirrhosis/alcohol abuse and dementia. She states she typically drinks wine nightly. Patient states she did her normal routine this evening. However a few hours ago she developed abdominal pain greatest in the right mid to upper abdomen and with this large amounts of loose stool. She denies any known sick contacts but with the pain called EMS and was brought in for evaluation. PFSH PFSH Medical History Alcohol abuse Anxiety Cirrhosis Depression Neuropathy Smoker Home Medications levothyroxine 50 mcg tablet 50 mcg PO DAILY 07/11/21 [History Last Taken Unknow n] ibuprofen 200 mg capsule 400 mg PO Q6H PRN Pain 08/07/21 [History Last Taken Unknown] Allergy/AdvReac Type Severity Reaction Status Date / Time adhesive tape AdvReac Rash Verified 08/07/21 13:05 Surgical History (Updated 08/07/21 @ 13:02 by Maritza Tuesday) History of appendectomy History of cholecystectomy History of hysterectomy History of repair of right hip joint Social History (Updated 08/07/21 @ 13:04 by Maritza Tuesday) Smoking Status: Current every day smoker tobacco type: cigarettes alcohol intake: current substance use type: does not use ROS ROS ED Constitutional Constitutional ED: Denies chills or fever(s) ENT ENT ED: Denies sore throat Cardiovascular Cardiovascular: Denies chest pain Respiratory/Chest Respiratory/Chest: Denies cough or dyspnea Gastrointestinal Gastrointestinal: Reports abdominal pain, diarrhea and nausea; Denies vomiting Genitourinary Genitourinary ED: Denies dysuria Musculoskeletal Musculoskeletal: Denies myalgias Integumentary Denies rash Neurologic Neurologic: Denies headache(s) Hematologic/Lymphatic Hematologic/Lymphatic: Denies easy bleeding or easy bruising EXAM Physical Exam Const Vital Signs: 12/27/21 00:47 12/27/21 00:58 12/27/21 01:33 Temperature 98.7 F Temperature Source Temporal Pulse Rate 69 Respiratory Rate 14 Respiratory Effort Normal Blood Pressure 78/45 L Blood Pressure Mean 56 Pulse Ox 97 Oxygen Delivery Method Room Air Oxygen Flow Rate (L/min) 12/27/21 02:11 12/27/21 03:15 12/27/21 03:42 Temperature 98.3 F Temperature Source Oral Pulse Rate 88 90 94 Respiratory Rate 16 18 20 H Respiratory Effort Blood Pressure 101/84 H 148/87 H 142/72 H Blood Pressure Mean 89 107 95 Pulse Ox 99 99 99 Oxygen Delivery Method Nasal Cannula Room Air Nasal Cannula Oxygen Flow Rate (L/min) 2 2 12/27/21 04:40 12/27/21 05:40 12/27/21 06:40 Temperature 98.7 F 98.8 F 98.6 F Temperature Source Oral Oral Oral Pulse Rate 95 92 85 Respiratory Rate 22 H 20 H 18 Respiratory Effort Blood Pressure 157/79 H 151/80 H 171/81 H Blood Pressure Mean 105 103 111 Pulse Ox 93 97 94 Oxygen Delivery Method Nasal Cannula Nasal Cannula Nasal Cannula Oxygen Flow Rate (L/min) 2 3 3 Positive well nourished and well developed General Appearance ED: well developed HEENT Reports dry mucous membranes Mouth ED: Yes dry mucous membranes Mouth: dry mucous membranes Eyes PERRL and EOMs intact bilaterally General Eye ED: Negative for scleral icterus Neck supple Resp normal respiratory effort Resp Narrative: Breath sounds are diminished throughout with diffuse expiratory wheeze consistent with history of smoking but no signs of respiratory distress Cardio regular rate and regular rhythm Rate: other Other Details: Radial pulses are +2-4 bilaterally are equal and symmetric GI non-distended GI Narrative: Abdomen is soft and nondistended with hyperactive bowel sound. Patient has pain with palpation in the midepigastric to right upper quadrant with voluntary guarding but no rigidity. No pulsatile mass or fluid wave noted. Auscultation: hyperactive bowel sounds Palpation: soft Extremity normal to inspection Neuro CN's II-XII intact bilaterally Neuro Narrative: Patient is oriented to person place but off on time which is consistent with her history of dementia however there is no focal neurologic deficit noted Psych Psych Narrative: Patient has a flat affect Skin no rashes or lesions noted Skin Narrative: Skin turgor slightly increased. No jaundice noted. No overlying soft tissue changes to suggest infection or trauma MDM MDM MDM Narrative Medical decision making narrative: Patient presented to the ER hypertensive but afebrile. With report of sudden onset pain and physical exam having voluntary guarding basic labs and a CT scan with IV contrast of the abdomen and pelvis was ordered. The labs show leukocytosis at 15.1 with lactic acidosis at 3.4. Patient does not have a history of of diabetes but her bicarb is low at 19 so serum ketones were added which were also negative. Patient was given IV fluids and her blood pressure normalized. The CT scan revealed a pneumomediastinum with air around the lower esophagus as well as pneumatosis of the cecum without obvious infectious or perforation change. The case was discussed with general surgery on-call and they feel patient would require higher level of care. Secondary to this [facility] was contacted. I spoke to the general surgeon Dr. Madsen and he feels that patient would be appropriate for their facility and he agrees to accept the patient but would prefer they go to the ER as an ER to ER. Patient was started on Zosyn secondary to concern for infection. I elected to add a CT of the chest to check for extension of the pneumomediastinum prior to transport. CT of the chest did reveal a pneumomediastinum extending up into the base of the neck without obvious pneumothorax or esophageal rupture. At this time because of the patient's pneumatosis and pneumomediastinum she will require higher level of care and patient will be sent to [facility] for further evaluation and treatment Lab Data Attestation: I reviewed the patient's lab results. Labs: Laboratory Results - last 24 hr 12/27/21 12/27/21 12/27/21 01:46 01:46 01:46 WBC 15.1 H RBC 3.93 L Hgb 14.2 Hct 42.8 MCV 108.9 H MCH 36.1 H MCHC 33.2 RDW Std Deviation 61.1 H RDW Coeff of Holly 15.2 H Plt Count 243 MPV 8.4 Immature Gran % (Auto) 0.300 Neut % (Auto) 83.6 H Lymph % (Auto) 6.6 L [place] % (Auto) 8.2 Eos % (Auto) 0.8 Baso % (Auto) 0.5 Absolute Neuts (auto) 12.6 H Absolute Lymphs (auto) 0.99 Nucleated RBC % 0 PT INR APTT Sodium 145 Potassium 3.7 Chloride 114 H Carbon Dioxide 19.0 L Anion Gap 12 BUN 9 Creatinine 1.01 Estim Creat Clear Calc 39.50 Est GFR (MDRD) Af Amer 69 Est GFR (MDRD) Non-Af 57 L BUN/Creatinine Ratio 8.9 L Glucose 173 H Lactic Acid 3.4 H* Calcium 8.1 L Total Bilirubin 0.20 Direct Bilirubin 0.09 AST 11 L ALT 13 Alkaline Phosphatase 86 Total Protein 6.7 Albumin 3.2 Globulin 3.5 Lipase 128 Urine Color Urine Clarity Urine pH Ur Specific [place] Urine Protein Urine Glucose (UA) Urine Ketones Urine Occult Blood Urine Nitrite Urine Bilirubin Urine Urobilinogen Ur Leukocyte Esterase Urine RBC Urine WBC Ur Squamous Epith Cells Urine Bacteria Urine Mucus Acetone Level 12/27/21 12/27/21 12/27/21 01:50 02:40 03:41 WBC RBC Hgb Hct MCV MCH MCHC RDW Std Deviation RDW Coeff of Holly Plt Count MPV Immature Gran % (Auto) Neut % (Auto) Lymph % (Auto) [place] % (Auto) Eos % (Auto) Baso % (Auto) Absolute Neuts (auto) Absolute Lymphs (auto) Nucleated RBC % PT INR APTT Sodium Potassium Chloride Carbon Dioxide Anion Gap BUN Creatinine Estim Creat Clear Calc Est GFR (MDRD) Af Amer Est GFR (MDRD) Non-Af BUN/Creatinine Ratio Glucose Lactic Acid 3.4 H* Calcium Total Bilirubin Direct Bilirubin AST ALT Alkaline Phosphatase Total Protein Albumin Globulin Lipase Urine Color Yellow Urine Clarity Clear Urine pH 6.0 Ur Specific [place] 1.015 Urine Protein Negative Urine Glucose (UA) Normal Urine Ketones Negative Urine Occult Blood Negative Urine Nitrite Negative Urine Bilirubin Negative Urine Urobilinogen Normal Ur Leukocyte Esterase Negative Urine RBC 0 SEEN Urine WBC 0 SEEN Ur Squamous Epith Cells 0 SEEN Urine Bacteria RARE Urine Mucus 0 SEEN Acetone Level NEGATIVE 12/27/21 12/27/21 04:34 06:11 WBC RBC Hgb Hct MCV MCH MCHC RDW Std Deviation RDW Coeff of Holly Plt Count MPV Immature Gran % (Auto) Neut % (Auto) Lymph % (Auto) [place] % (Auto) Eos % (Auto) Baso % (Auto) Absolute Neuts (auto) Absolute Lymphs (auto) Nucleated RBC % PT 13.2 INR 1.0 APTT 21.0 L Sodium Potassium Chloride Carbon Dioxide Anion Gap BUN Creatinine Estim Creat Clear Calc Est GFR (MDRD) Af Amer Est GFR (MDRD) Non-Af BUN/Creatinine Ratio Glucose Lactic Acid 2.5 H* Calcium Total Bilirubin Direct Bilirubin AST ALT Alkaline Phosphatase Total Protein Albumin Globulin Lipase Urine Color Urine Clarity Urine pH Ur Specific [place] Urine Protein Urine Glucose (UA) Urine Ketones Urine Occult Blood Urine Nitrite Urine Bilirubin Urine Urobilinogen Ur Leukocyte Esterase Urine RBC Urine WBC Ur Squamous Epith Cells Urine Bacteria Urine Mucus Acetone Level Radiography Diagnostic Testing: Clinical Impression(s) from Imaging Studies Abdomen/Pelvis CT 12/27/21 02:32 IMPRESSION: There is pneumomediastinum surrounding the lower esophagus. There is pneumatosis in the wall of the cecum suggesting ischemia. There is sigmoid diverticulosis. Electronically Signed: Delia Bedoya MD at 2:58 EDT , ADDENDUM: 12/27/21 0312 IMPRESSION: There is pneumomediastinum surrounding the lower esophagus. There is pneumatosis in the wall of the cecum suggesting ischemia. There is sigmoid diverticulosis. N.B. : The above Results were Read Back by Delia Bedoya MD to IRAM levy, and understanding confirmed on 12/27/2021 03:05:03 (ET). Electronically Signed: Delia Bedoya MD at 2:58 EDT , Chest CT 12/27/21 05:02 IMPRESSION: 1. Pneumomediastinum. No evidence of pneumothorax 2. Bibasilar airspace disease; right greater than left. Small effusion Electronically Signed: Bradley Woodward DO at 5:37 EDT , Discharge Plan Triage Chief Complaint: Flank Pain ED Provider: Wale Chavez Dx/Rx/DC Orders Clinical Impression: Pneumomediastinum, Pneumatosis of intestines, History of alcohol abuse, Alcoholic cirrhosis of liver without ascites Prescriptions: No Action ibuprofen 200 mg capsule 400 mg PO Q6H PRN (Reason: Pain) levothyroxine 50 mcg tablet 50 mcg PO DAILY Label Comments: take 1 tablet by mouth every morning ON AN EMPTY STOMACH Primary Care Provider: Michael Brownlee Referrals: Michael Brownlee MD [Primary Care Provider] - Disposition Disposition: Acute Care Hospital Discharge Location: [facility]
[2021-12-27] MEDS: 0.9% Normal Saline 1,000 ML 999 ML IV (01:29)
[2021-12-27] MEDS: Ondansetron 4 MG/2 ML Vial IV ×2 (01:30→04:38)
[2021-12-27] MEDS: fentaNYL 100 MCG/2 ML Ampul 25 MCG IV (01:30)
[2021-12-27 01:54] LABS: Absolute Lymphocyte Count 0.99 X10^3/uL (0.83-4.51); Absolute Neutrophil Count 12.6 X10^3/uL (2.0-7.7); Basophil# 0.07 X10^3/uL; Basophil% 0.5 % (0-1); Eosinophil# 0.12 X10^3/uL; Eosinophils% 0.8 % (0-5); Hematocrit 42.8 % (37-47); Hemoglobin 14.2 g/dL (12.0-15.0); Lymphocyte # 0.99 X10^3/ul (0.83-4.51); Lymphocyte % 6.6 % (19-41); Mean Corp Hgb Conc 33.2 g/dL (32-36); Mean Corpuscular Hgb 36.1 pg (27.0-32.0); Mean Corpuscular Volume 108.9 fL (81-99); Mean Platelet Vol. 8.4 fl (6.2-12.0); Monocyte# 1.24 X10^3/uL; Monocyte% 8.2 % (0-10); NRBC Flagged by Analyzer 0 % (0-5); Neutrophil # 12.62 X10^3/uL (2.7-7.7); Neutrophil % 83.6 % (47-70); Platelet Count 243 K/mm3 (150-450); RBC Distribution Width CV 15.2 % (11.6-14.6); RBC Distribution Width SD 61.1 fl (35.1-43.9); Red Blood Count 3.93 M/mm3 (4.2-5.4); White Blood Count 15.1 K/mm3 (4.4-11.0)
[2021-12-27 01:57] LABS: Mucous, Urine 0 SEEN /hpf (<or=2+); Red Blood Cells-Urine 0 SEEN /hpf (0-5); Squamous Epithelial Cells - UA 0 SEEN /hpf (5-10); White Blood Cells 0 SEEN /hpf (0-5)
[2021-12-27 02:00] LABS: Color, Urine Yellow (Yellow); Glucose, Dipstick Normal (Normal); Ketone-Dipstick Negative (Negative); Leukocyte Esterase-Dipstick Negative /ul (Negative); Nitrite-Dipstick Negative (Negative); Occult Blood-Urine Negative /ul (Negative); Protein-Dipstick Negative (Negative); Specific Gravity, Urine 1.015 (1.002-1.030); Urine Bilirubin Dipstick Negative (Negative); Urine Clarity Clear (Clear); Urine Urobilinogen Normal (Normal)
[2021-12-27 02:12] LABS: AST(SGOT) 11 U/L (15-37); Alanine Aminotransfer ALT/SGPT 13 U/L (13-56); Albumin, Serum 3.2 g/dL (3.2-5.0); Alkaline Phosphatase 86 U/L (45-117); Anion Gap 12 (5-15); BUN 9 mg/dL (7-18); BUN/Creat Ratio 8.9 RATIO (10-20); Bilirubin, Direct 0.09 mg/dL (0.00-0.30); Calcium,Total 8.1 mg/dL (8.5-10.1); Chloride 114 mmol/L (98-107); Creatinine, Serum 1.01 mg/dL (0.55-1.02); EST Glomerular Filtration Rate 57 mL/min (>60); Est Glom Filt Rate - Afr Amer 69 mL/min (>60); Globulin 3.5 g/dL (2.2-4.2); Glucose 173 mg/dL (74-106); Lipase 128 U/L (73-393); Potassium 3.7 mmol/L (3.5-5.1); Protein, Total 6.7 g/dL (6.4-8.2); Sodium Level 145 mmol/L (136-145)
[2021-12-27 02:18] LABS: Lactic Acid 3.4 mmol/L (0.4-1.9)
[2021-12-27 02:21] LABS: Bacteria RARE /hpf (None Seen)
--- NOTE | 2021-12-27 02:32 | CT_ITS ---
We are attempting to reach an attending provider to discuss findings. An addendum with communication details will be sent when the communication is complete. STUDY: CT ABDOMEN AND PELVIS WITH CONTRAST REASON FOR EXAM: Female, 76 years old. abd pain RADIATION DOSAGE (If Supplied By Facility): CTDIvol = ( 9.49 ) mGy, DLP = ( 429.29 ) mGycm TECHNIQUE: Transaxial images were obtained from the dome of the diaphragm to the symphysis pubis without oral contrast. IV 75mL Isovue-370 was administered. Sagittal and coronal images were reconstructed. Individualized dose optimization techniques were used for this CT. COMPARISON: None. FINDINGS: There is small right pleural effusion. There is pneumomediastinum surrounding the lower esophagus. The visualized portions of the heart are within normal limits. Normal liver. There is non-visualization of the gallbladder, which may be secondary to either contraction or a prior cholecystectomy. Normal spleen. Normal pancreas. Normal bilateral adrenal glands. Bilateral renal cysts the largest measures 1.7 cm. Normal visualized stomach. Normal small intestine. There is pneumatosis in the wall of the cecum suggesting ischemia. There is sigmoid diverticulosis. There is non-visualization of the appendix. Normal abdominal aorta. Normal inferior vena cava. Normal retroperitoneum. Normal urinary bladder. Normal abdominal wall. Normal osseous structures. CT/Abdomen/Pelvis W IV Cont ONLY IMPRESSION: There is pneumomediastinum surrounding the lower esophagus. There is pneumatosis in the wall of the cecum suggesting ischemia. There is sigmoid diverticulosis. Electronically Signed: Delia Bedoya MD at 2:58 EDT ,
[2021-12-27] MEDS: Lactated Ringers 1,000 ML 999 ML IV (02:45)
[2021-12-27] MEDS: fentaNYL 100 MCG/2 ML Ampul 50 MCG IV (03:37)
--- NOTE | 2021-12-27 03:47 | EKG12_ITS ---
Test Reason : FLANK PAIN Blood Pressure : / mmHG Vent. Rate : 097 BPM Atrial Rate : 097 BPM P-R Int : 136 ms QRS Dur : 074 ms QT Int : 350 ms P-R-T Axes : 071 052 073 degrees QTc Int : 444 ms Normal sinus rhythm Nonspecific ST abnormality Abnormal ECG Confirmed by ESTHER STANLEY, ALEX ([id number]), video editor VALENTIN XAVIER ([id number]) on 12/29/2021 9:11:43 AM Referred By: ABDIRIZAK Confirmed By:PHANI SANTANA MD
[2021-12-27] MEDS: HYDROmorphone 1 MG/ML Syringe IV ×3 (04:39→08:51)
[2021-12-27 04:47] LABS: Lactic Acid 3.4 mmol/L (0.4-1.9)
[2021-12-27] MEDS: Lactated Ringers 1,000 ML 150 ML IV ×2 (04:52→09:04)
[2021-12-27 04:55] LABS: Prothrombin Time (Protime)PT. 13.2 SECONDS (11.7-14.9)
--- NOTE | 2021-12-27 05:02 | CT_ITS ---
INDICATION: Pneumomediastinum EXAMINATION: CT CHEST WITHOUT CONTRAST - CT Chest W/O Contrast Injection TECHNIQUE: Helically acquired images were obtained of the chest. A radiation dose optimization technique was used for this scan. IV Contrast dosage and agent: None. COMPARISON: None. FINDINGS: LUNGS, PLEURA AND LARGE AIRWAYS: Bibasilar airspace disease with consolidation; right greater than left. Small bilateral effusions. No pneumothorax. THYROID: Nonvisualized HEART AND PERICARDIUM: Mild cardiomegaly. No pericardial effusion. CORONARY ARTERIES: Coronary artery calcification is seen. VESSELS: Thoracic aorta is not dilated. MEDIASTINUM AND LEWIS: Pneumomediastinum is identified extending into the soft tissues of the base of the neck. No identifiable esophageal rupture. Small hiatal hernia. UPPER ABDOMEN: No acute pathology. BONES: No suspicious lytic or blastic abnormality. CT/Chest without Contrast IMPRESSION: 1. Pneumomediastinum. No evidence of pneumothorax 2. Bibasilar airspace disease; right greater than left. Small effusion Electronically Signed: Bradley Woodward DO at 5:37 EDT ,
--- NOTE | 2021-12-27 05:17 | NURSING ---
[facility] 2-3 hours transport pt to [facility]
[2021-12-27 05:50] LABS: Reflex Lactate? Y
--- NOTE | 2021-12-27 06:26 | ED.RN ---
called and lmom for lizette patel, to let know of transfer to [facility]. patient is aware of this contact.
[2021-12-27 06:43] LABS: Lactic Acid 2.5 mmol/L (0.4-1.9)
[2021-12-27 08:01] LABS: Reflex Lactate? Y
[2021-12-27 09:06] LABS: Lactic Acid 2.5 mmol/L (0.4-1.9)
== END 2021-12-27 09:06 | disposition short-term general hospital (02) ==
PROVIDERS: Emergency Provider Emergency Medicine; PCP Family Medicine; Visit Provider Emergency Medicine
DX: J98.2 Interstitial emphysema (principal); K70.30 Alcoholic cirrhosis of liver without ascites; F03.90 Unspecified dementia, unspecified severity, without behavioral disturbance, psychotic disturbance, mood disturbance, and anxiety; I73.9 Peripheral vascular disease, unspecified; K63.89 Other specified diseases of intestine; F17.210 Nicotine dependence, cigarettes, uncomplicated; I10 Essential (primary) hypertension; F32.9 Major depressive disorder, single episode, unspecified; Z79.899 Other long term (current) drug therapy; G62.9 Polyneuropathy, unspecified; F10.10 Alcohol abuse, uncomplicated
CPT/HCPCS: 71250; 74177; 80048; 80076; 81001; 82009; 83605; 83690; 85025; 85610; 85730; 87811; 93005; 99285; J7030; J7050; J7120; Q9967; A4216; J2405

== ENCOUNTER → 2022-01-29 | Outpatient (REF) | payer SELFPAY ==
[2022-01-29 08:07] LABS: Absolute Lymphocyte Count 1.55 X10^3/uL (0.83-4.51); Absolute Neutrophil Count 5.7 X10^3/uL (2.0-7.7); Basophil# 0.07 X10^3/uL; Basophil% 0.8 % (0-1); Eosinophil# 0.25 X10^3/uL; Hematocrit 28.7 % (37-47); Hemoglobin 9.2 g/dL (12.0-15.0); Lymphocyte # 1.55 X10^3/ul (0.83-4.51); Lymphocyte % 18.5 % (19-41); Mean Corp Hgb Conc 32.1 g/dL (32-36); Mean Corpuscular Hgb 31.8 pg (27.0-32.0); Mean Corpuscular Volume 99.3 fL (81-99); Mean Platelet Vol. 8.7 fl (6.2-12.0); Monocyte# 0.83 X10^3/uL; Monocyte% 9.9 % (0-10); NRBC Flagged by Analyzer 0 % (0-5); Neutrophil # 5.67 X10^3/uL (2.7-7.7); Neutrophil % 67.6 % (47-70); POSITIVE MORPHOLOGY YES; Platelet Count 486 K/mm3 (150-450); RBC Distribution Width SD 65.9 fl (35.1-43.9); Red Blood Count 2.89 M/mm3 (4.2-5.4); White Blood Count 8.4 K/mm3 (4.4-11.0)
[2022-01-29 08:16] LABS: Differential Indicated SCAN CRITERIA MET
[2022-01-29 08:17] LABS: ALB/GLOB Ratio 0.5 RATIO (0.9-2.4); AST(SGOT) 16 U/L (15-37); Alanine Aminotransfer ALT/SGPT 22 U/L (13-56); Albumin, Serum 2.4 g/dL (3.2-5.0); Alkaline Phosphatase 98 U/L (45-117); Anion Gap 8 (5-15); BUN 9 mg/dL (7-18); BUN/Creat Ratio 11.8 RATIO (10-20); Calcium,Total 9.4 mg/dL (8.5-10.1); Chloride 101 mmol/L (98-107); Creatinine, Serum 0.76 mg/dL (0.55-1.02); EST Glomerular Filtration Rate 79 mL/min (>60); Est Glom Filt Rate - Afr Amer 96 mL/min (>60); Globulin 5.2 g/dL (2.2-4.2); Glucose 101 mg/dL (74-106); Potassium 4.6 mmol/L (3.5-5.1); Protein, Total 7.6 g/dL (6.4-8.2); Sodium Level 135 mmol/L (136-145)
[2022-01-29 08:56] LABS: Anisocytosis 1+; Platelet Estimate ADEQUATE (ADEQ); Red Cell Morphology N CHROM NORMAL (NORM C&C)
== END ==
LOC: OLS.WHLTCC 05:00
PROVIDERS: PCP Family Medicine; Visit Provider Family Medicine
DX: E03.9 Hypothyroidism, unspecified (principal); J98.2 Interstitial emphysema; J96.01 Acute respiratory failure with hypoxia; K63.9 Disease of intestine, unspecified; J90 Pleural effusion, not elsewhere classified; M62.81 Muscle weakness (generalized); R26.2 Difficulty in walking, not elsewhere classified
CPT/HCPCS: 36415; 80053; 85025

== ENCOUNTER → 2022-02-26 | Outpatient (REF) | payer MEDICARE, SELFPAY ==
[2022-02-26 07:39] LABS: Absolute Lymphocyte Count 1.59 X10^3/uL (0.83-4.51); Absolute Neutrophil Count 2.5 X10^3/uL (2.0-7.7); Basophil# 0.08 X10^3/uL; Basophil% 1.6 % (0-1); Eosinophils% 5.8 % (0-5); Hematocrit 31.3 % (37-47); Hemoglobin 10.1 g/dL (12.0-15.0); Lymphocyte # 1.59 X10^3/ul (0.83-4.51); Mean Corp Hgb Conc 32.3 g/dL (32-36); Mean Corpuscular Hgb 28.9 pg (27.0-32.0); Mean Corpuscular Volume 89.7 fL (81-99); Mean Platelet Vol. 8.4 fl (6.2-12.0); Monocyte# 0.66 X10^3/uL; Monocyte% 12.9 % (0-10); NRBC Flagged by Analyzer 0 % (0-5); Neutrophil # 2.47 X10^3/uL (2.7-7.7); Neutrophil % 48.1 % (47-70); Platelet Count 358 K/mm3 (150-450); RBC Distribution Width SD 59.3 fl (35.1-43.9); Red Blood Count 3.49 M/mm3 (4.2-5.4); White Blood Count 5.1 K/mm3 (4.4-11.0)
[2022-02-26 07:53] LABS: ALB/GLOB Ratio 0.6 RATIO (0.9-2.4); AST(SGOT) 13 U/L (15-37); Alanine Aminotransfer ALT/SGPT 15 U/L (13-56); Albumin, Serum 2.8 g/dL (3.2-5.0); Alkaline Phosphatase 110 U/L (45-117); Anion Gap 6 (5-15); BUN 9 mg/dL (7-18); BUN/Creat Ratio 11.1 RATIO (10-20); Calcium,Total 9.3 mg/dL (8.5-10.1); Chloride 101 mmol/L (98-107); Creatinine, Serum 0.81 mg/dL (0.55-1.02); EST Glomerular Filtration Rate 73 mL/min (>60); Est Glom Filt Rate - Afr Amer 88 mL/min (>60); Globulin 4.5 g/dL (2.2-4.2); Glucose 99 mg/dL (74-106); Potassium 4.3 mmol/L (3.5-5.1); Protein, Total 7.3 g/dL (6.4-8.2); Sodium Level 134 mmol/L (136-145)
== END ==
LOC: OLS.WHLEAS 05:00
PROVIDERS: PCP Family Medicine; Referring Provider Family Medicine; Visit Provider Family Medicine
DX: J98.2 Interstitial emphysema (principal); J96.01 Acute respiratory failure with hypoxia; K63.9 Disease of intestine, unspecified; J90 Pleural effusion, not elsewhere classified; M62.81 Muscle weakness (generalized); R26.2 Difficulty in walking, not elsewhere classified; G89.29 Other chronic pain
CPT/HCPCS: 36415; 80053; 85025

== ENCOUNTER → 2022-03-26 | Outpatient (REF) | payer MEDICARE, MEDICAID, SELFPAY ==
[2022-03-26 09:27] LABS: Absolute Lymphocyte Count 0.77 X10^3/uL (0.83-4.51); Basophil# 0.06 X10^3/uL; Basophil% 0.6 % (0-1); Eosinophil# 0.16 X10^3/uL; Eosinophils% 1.7 % (0-5); Hematocrit 37.6 % (37-47); Hemoglobin 11.5 g/dL (12.0-15.0); Lymphocyte # 0.77 X10^3/ul (0.83-4.51); Mean Corp Hgb Conc 30.6 g/dL (32-36); Mean Corpuscular Hgb 27.7 pg (27.0-32.0); Mean Corpuscular Volume 90.6 fL (81-99); Mean Platelet Vol. 8.9 fl (6.2-12.0); Monocyte# 0.67 X10^3/uL; NRBC Flagged by Analyzer 0 % (0-5); Neutrophil # 7.95 X10^3/uL (2.7-7.7); Neutrophil % 82.4 % (47-70); Platelet Count 334 K/mm3 (150-450); RBC Distribution Width CV 17.9 % (11.6-14.6); RBC Distribution Width SD 59.8 fl (35.1-43.9); Red Blood Count 4.15 M/mm3 (4.2-5.4); White Blood Count 9.6 K/mm3 (4.4-11.0)
[2022-03-26 09:37] LABS: ALB/GLOB Ratio 0.8 RATIO (0.9-2.4); AST(SGOT) 12 U/L (15-37); Alanine Aminotransfer ALT/SGPT 15 U/L (13-56); Albumin, Serum 3.2 g/dL (3.2-5.0); Alkaline Phosphatase 125 U/L (45-117); Anion Gap 5 (5-15); BUN 12 mg/dL (7-18); BUN/Creat Ratio 14.1 RATIO (10-20); Calcium,Total 8.9 mg/dL (8.5-10.1); Chloride 107 mmol/L (98-107); Creatinine, Serum 0.85 mg/dL (0.55-1.02); EST Glomerular Filtration Rate 69 mL/min (>60); Est Glom Filt Rate - Afr Amer 84 mL/min (>60); Glucose 115 mg/dL (74-106); Potassium 4.2 mmol/L (3.5-5.1); Protein, Total 7.2 g/dL (6.4-8.2); Sodium Level 138 mmol/L (136-145)
== END ==
LOC: OLS.WHLEAS 05:00
PROVIDERS: PCP Family Medicine; Visit Provider Family Medicine
DX: J98.2 Interstitial emphysema (principal); J96.01 Acute respiratory failure with hypoxia; K63.9 Disease of intestine, unspecified; J90 Pleural effusion, not elsewhere classified; M62.81 Muscle weakness (generalized); R26.2 Difficulty in walking, not elsewhere classified; G89.29 Other chronic pain
CPT/HCPCS: 36415; 80053; 85025

== ENCOUNTER → 2022-03-29 | Outpatient (REF) | payer MEDICARE, SELFPAY ==
[2022-03-29 09:08] LABS: Thyroid Stim Hormone (TSH) 2.52 uIU/mL (0.358-3.74)
== END ==
LOC: OLS.WHLEAS 04:00
PROVIDERS: PCP Family Medicine; Referring Provider Internal Medicine; Visit Provider Internal Medicine
DX: J98.2 Interstitial emphysema (principal); J96.01 Acute respiratory failure with hypoxia; K63.9 Disease of intestine, unspecified; J90 Pleural effusion, not elsewhere classified; M62.81 Muscle weakness (generalized); R26.2 Difficulty in walking, not elsewhere classified; Z74.1 Need for assistance with personal care
CPT/HCPCS: 36415; 84443

== ENCOUNTER → 2022-04-30 | Outpatient (REF) | payer MEDICARE, MEDICAID, SELFPAY ==
[2022-04-30 08:30] LABS: Absolute Lymphocyte Count 1.52 X10^3/uL (0.83-4.51); Absolute Neutrophil Count 2.7 X10^3/uL (2.0-7.7); Basophil# 0.07 X10^3/uL; Basophil% 1.4 % (0-1); Eosinophil# 0.18 X10^3/uL; Eosinophils% 3.5 % (0-5); Hematocrit 35.9 % (37-47); Hemoglobin 11.5 g/dL (12.0-15.0); Lymphocyte # 1.52 X10^3/ul (0.83-4.51); Lymphocyte % 29.4 % (19-41); Mean Corpuscular Hgb 28.3 pg (27.0-32.0); Mean Corpuscular Volume 88.2 fL (81-99); Mean Platelet Vol. 9.1 fl (6.2-12.0); Monocyte# 0.67 X10^3/uL; NRBC Flagged by Analyzer 0 % (0-5); Neutrophil % 52.1 % (47-70); Platelet Count 280 K/mm3 (150-450); RBC Distribution Width CV 17.4 % (11.6-14.6); RBC Distribution Width SD 55.8 fl (35.1-43.9); Red Blood Count 4.07 M/mm3 (4.2-5.4); White Blood Count 5.2 K/mm3 (4.4-11.0)
[2022-04-30 08:35] LABS: ALB/GLOB Ratio 0.9 RATIO (0.9-2.4); AST(SGOT) 11 U/L (15-37); Alanine Aminotransfer ALT/SGPT 15 U/L (13-56); Albumin, Serum 3.1 g/dL (3.2-5.0); Alkaline Phosphatase 102 U/L (45-117); Anion Gap 3 (5-15); BUN 16 mg/dL (7-18); Calcium,Total 8.9 mg/dL (8.5-10.1); Chloride 111 mmol/L (98-107); Creatinine, Serum 0.89 mg/dL (0.55-1.02); EST Glomerular Filtration Rate 66 mL/min (>60); Est Glom Filt Rate - Afr Amer 80 mL/min (>60); Globulin 3.3 g/dL (2.2-4.2); Glucose 110 mg/dL (74-106); Potassium 4.3 mmol/L (3.5-5.1); Protein, Total 6.4 g/dL (6.4-8.2); Sodium Level 141 mmol/L (136-145)
== END ==
LOC: OLS.WHLEAS 05:00
PROVIDERS: PCP Family Medicine; Visit Provider Family Medicine
DX: G89.29 Other chronic pain (principal); J98.2 Interstitial emphysema; K63.9 Disease of intestine, unspecified; J96.01 Acute respiratory failure with hypoxia; J90 Pleural effusion, not elsewhere classified; M62.81 Muscle weakness (generalized); R26.2 Difficulty in walking, not elsewhere classified
CPT/HCPCS: 36415; 80053; 85025

== ENCOUNTER → 2022-05-28 | Outpatient (REF) | payer MEDICARE, SELFPAY ==
[2022-05-28 09:09] LABS: Absolute Lymphocyte Count 1.54 X10^3/uL (0.83-4.51); Basophil# 0.06 X10^3/uL; Basophil% 1.4 % (0-1); Eosinophil# 0.19 X10^3/uL; Eosinophils% 4.3 % (0-5); Hematocrit 36.2 % (37-47); Hemoglobin 11.9 g/dL (12.0-15.0); Lymphocyte # 1.54 X10^3/ul (0.83-4.51); Lymphocyte % 35.2 % (19-41); Mean Corp Hgb Conc 32.9 g/dL (32-36); Mean Corpuscular Hgb 29.3 pg (27.0-32.0); Mean Corpuscular Volume 89.2 fL (81-99); Mean Platelet Vol. 9.2 fl (6.2-12.0); Monocyte# 0.63 X10^3/uL; Monocyte% 14.4 % (0-10); NRBC Flagged by Analyzer 0 % (0-5); Neutrophil # 1.95 X10^3/uL (2.7-7.7); Neutrophil % 44.7 % (47-70); Platelet Count 219 K/mm3 (150-450); RBC Distribution Width CV 15.8 % (11.6-14.6); RBC Distribution Width SD 51.6 fl (35.1-43.9); Red Blood Count 4.06 M/mm3 (4.2-5.4); White Blood Count 4.4 K/mm3 (4.4-11.0)
[2022-05-28 09:22] LABS: ALB/GLOB Ratio 0.9 RATIO (0.9-2.4); AST(SGOT) 14 U/L (15-37); Alanine Aminotransfer ALT/SGPT 14 U/L (13-56); Albumin, Serum 3.1 g/dL (3.2-5.0); Alkaline Phosphatase 91 U/L (45-117); Anion Gap 9 (5-15); BUN 16 mg/dL (7-18); BUN/Creat Ratio 18.8 RATIO (10-20); Calcium,Total 8.3 mg/dL (8.5-10.1); Chloride 111 mmol/L (98-107); Creatinine, Serum 0.85 mg/dL (0.55-1.02); EST Glomerular Filtration Rate 69 mL/min (>60); Est Glom Filt Rate - Afr Amer 84 mL/min (>60); Globulin 3.3 g/dL (2.2-4.2); Glucose 105 mg/dL (74-106); Potassium 4.2 mmol/L (3.5-5.1); Protein, Total 6.4 g/dL (6.4-8.2); Sodium Level 142 mmol/L (136-145)
== END ==
LOC: OLS.WHLEAS 05:00
PROVIDERS: PCP Family Medicine; Visit Provider Internal Medicine
DX: G89.29 Other chronic pain (principal); J98.2 Interstitial emphysema; K63.9 Disease of intestine, unspecified; J96.01 Acute respiratory failure with hypoxia; J90 Pleural effusion, not elsewhere classified; M62.81 Muscle weakness (generalized); R26.2 Difficulty in walking, not elsewhere classified
CPT/HCPCS: 36415; 80053; 85025

== ENCOUNTER → 2022-06-25 | Outpatient (REF) | payer MEDICARE, MEDICAID, SELFPAY ==
[2022-06-25 07:56] LABS: Absolute Lymphocyte Count 1.43 X10^3/uL (0.83-4.51); Absolute Neutrophil Count 2.7 X10^3/uL (2.0-7.7); Basophil# 0.04 X10^3/uL; Basophil% 0.8 % (0-1); Eosinophil# 0.16 X10^3/uL; Eosinophils% 3.2 % (0-5); Hematocrit 36.5 % (37-47); Lymphocyte # 1.43 X10^3/ul (0.83-4.51); Lymphocyte % 28.8 % (19-41); Mean Corp Hgb Conc 32.9 g/dL (32-36); Mean Corpuscular Hgb 30.3 pg (27.0-32.0); Mean Corpuscular Volume 92.2 fL (81-99); Mean Platelet Vol. 9.6 fl (6.2-12.0); Monocyte# 0.63 X10^3/uL; Monocyte% 12.7 % (0-10); NRBC Flagged by Analyzer 0 % (0-5); Neutrophil # 2.69 X10^3/uL (2.7-7.7); Neutrophil % 54.1 % (47-70); Platelet Count 237 K/mm3 (150-450); RBC Distribution Width CV 14.1 % (11.6-14.6); RBC Distribution Width SD 47.5 fl (35.1-43.9); Red Blood Count 3.96 M/mm3 (4.2-5.4)
[2022-06-25 08:19] LABS: AST(SGOT) 12 U/L (15-37); Alanine Aminotransfer ALT/SGPT 17 U/L (13-56); Albumin, Serum 3.2 g/dL (3.2-5.0); Alkaline Phosphatase 94 U/L (45-117); Anion Gap 8 (5-15); BUN 13 mg/dL (7-18); BUN/Creat Ratio 15.6 RATIO (10-20); Chloride 108 mmol/L (98-107); Creatinine, Serum 0.83 mg/dL (0.55-1.02); EST Glomerular Filtration Rate 71 mL/min (>60); Est Glom Filt Rate - Afr Amer 86 mL/min (>60); Globulin 3.2 g/dL (2.2-4.2); Glucose 122 mg/dL (74-106); Potassium 4.5 mmol/L (3.5-5.1); Protein, Total 6.4 g/dL (6.4-8.2); Sodium Level 141 mmol/L (136-145)
== END ==
LOC: OLS.WHLEAS 05:00
PROVIDERS: PCP Family Medicine; Visit Provider Family Medicine
DX: G89.29 Other chronic pain (principal); J98.2 Interstitial emphysema; K63.9 Disease of intestine, unspecified; J96.01 Acute respiratory failure with hypoxia; J90 Pleural effusion, not elsewhere classified; M62.81 Muscle weakness (generalized); R26.2 Difficulty in walking, not elsewhere classified
CPT/HCPCS: 36415; 80053; 85025

== ENCOUNTER → 2022-07-30 | Outpatient (REF) | payer MEDICARE, MEDICAID, SELFPAY ==
[2022-07-30 07:28] LABS: Absolute Neutrophil Count 2.6 X10^3/uL (2.0-7.7); Basophil# 0.06 X10^3/uL; Basophil% 1.2 % (0-1); Hematocrit 35.5 % (37-47); Hemoglobin 11.8 g/dL (12.0-15.0); Lymphocyte % 30.2 % (19-41); Mean Corp Hgb Conc 33.2 g/dL (32-36); Mean Corpuscular Hgb 31.6 pg (27.0-32.0); Mean Corpuscular Volume 94.9 fL (81-99); Mean Platelet Vol. 9.1 fl (6.2-12.0); Monocyte# 0.59 X10^3/uL; Monocyte% 11.9 % (0-10); NRBC Flagged by Analyzer 0 % (0-5); Neutrophil % 52.5 % (47-70); Platelet Count 261 K/mm3 (150-450); RBC Distribution Width CV 13.2 % (11.6-14.6); RBC Distribution Width SD 45.2 fl (35.1-43.9); Red Blood Count 3.74 M/mm3 (4.2-5.4)
[2022-07-30 07:40] LABS: AST(SGOT) 19 U/L (15-37); Alanine Aminotransfer ALT/SGPT 17 U/L (13-56); Albumin, Serum 3.4 g/dL (3.2-5.0); Alkaline Phosphatase 101 U/L (45-117); Anion Gap 6 (5-15); BUN 18 mg/dL (7-18); BUN/Creat Ratio 20.7 RATIO (10-20); Calcium,Total 8.8 mg/dL (8.5-10.1); Chloride 111 mmol/L (98-107); Creatinine, Serum 0.87 mg/dL (0.55-1.02); EST Glomerular Filtration Rate 68 mL/min (>60); Est Glom Filt Rate - Afr Amer 82 mL/min (>60); Globulin 3.3 g/dL (2.2-4.2); Glucose 117 mg/dL (74-106); Potassium 4.2 mmol/L (3.5-5.1); Protein, Total 6.7 g/dL (6.4-8.2); Sodium Level 139 mmol/L (136-145)
== END ==
LOC: OLS.WHLEAS 05:00
PROVIDERS: PCP Family Medicine; Visit Provider Family Medicine
DX: G89.29 Other chronic pain (principal); J98.2 Interstitial emphysema; K63.9 Disease of intestine, unspecified; J96.01 Acute respiratory failure with hypoxia; J90 Pleural effusion, not elsewhere classified; M62.81 Muscle weakness (generalized); R26.2 Difficulty in walking, not elsewhere classified; Z79.899 Other long term (current) drug therapy
CPT/HCPCS: 36415; 80053; 85025

== ENCOUNTER → 2022-08-27 | Outpatient (REF) | payer MEDICARE, MEDICAID, SELFPAY ==
[2022-08-27 08:24] LABS: Absolute Lymphocyte Count 1.65 X10^3/uL (0.83-4.51); Absolute Neutrophil Count 2.7 X10^3/uL (2.0-7.7); Basophil# 0.06 X10^3/uL; Basophil% 1.1 % (0-1); Eosinophil# 0.19 X10^3/uL; Eosinophils% 3.6 % (0-5); Hematocrit 36.7 % (37-47); Lymphocyte # 1.65 X10^3/ul (0.83-4.51); Lymphocyte % 31.4 % (19-41); Mean Corp Hgb Conc 32.7 g/dL (32-36); Mean Corpuscular Hgb 31.3 pg (27.0-32.0); Mean Corpuscular Volume 95.6 fL (81-99); Mean Platelet Vol. 9.6 fl (6.2-12.0); Monocyte# 0.66 X10^3/uL; Monocyte% 12.6 % (0-10); NRBC Flagged by Analyzer 0 % (0-5); Neutrophil # 2.67 X10^3/uL (2.7-7.7); Neutrophil % 50.9 % (47-70); Platelet Count 270 K/mm3 (150-450); RBC Distribution Width CV 12.8 % (11.6-14.6); RBC Distribution Width SD 44.7 fl (35.1-43.9); Red Blood Count 3.84 M/mm3 (4.2-5.4); White Blood Count 5.3 K/mm3 (4.4-11.0)
[2022-08-27 08:43] LABS: AST(SGOT) 11 U/L (15-37); Alanine Aminotransfer ALT/SGPT 19 U/L (13-56); Albumin, Serum 3.4 g/dL (3.2-5.0); Alkaline Phosphatase 94 U/L (45-117); Anion Gap 10 (5-15); BUN 21 mg/dL (7-18); BUN/Creat Ratio 24.6 RATIO (10-20); Calcium,Total 8.7 mg/dL (8.5-10.1); Chloride 110 mmol/L (98-107); Creatinine, Serum 0.85 mg/dL (0.55-1.02); EST Glomerular Filtration Rate 69 mL/min (>60); Est Glom Filt Rate - Afr Amer 84 mL/min (>60); Globulin 3.4 g/dL (2.2-4.2); Glucose 105 mg/dL (74-106); Potassium 4.5 mmol/L (3.5-5.1); Protein, Total 6.8 g/dL (6.4-8.2); Sodium Level 142 mmol/L (136-145)
== END ==
LOC: OLS.WHLEAS 05:00
PROVIDERS: PCP Family Medicine; Visit Provider Family Medicine
DX: G89.29 Other chronic pain (principal); J98.2 Interstitial emphysema; K63.9 Disease of intestine, unspecified; J96.01 Acute respiratory failure with hypoxia; J90 Pleural effusion, not elsewhere classified; M62.81 Muscle weakness (generalized); R26.2 Difficulty in walking, not elsewhere classified
CPT/HCPCS: 36415; 80053; 85025

== ENCOUNTER → 2022-09-24 | Outpatient (REF) | payer MEDICARE, MEDICAID, SELFPAY ==
[2022-09-24 06:41] LABS: Absolute Lymphocyte Count 1.68 X10^3/uL (0.83-4.51); Absolute Neutrophil Count 2.8 X10^3/uL (2.0-7.7); Basophil# 0.03 X10^3/uL; Basophil% 0.6 % (0-1); Eosinophil# 0.18 X10^3/uL; Eosinophils% 3.3 % (0-5); Hematocrit 36.5 % (37-47); Hemoglobin 12.1 g/dL (12.0-15.0); Lymphocyte # 1.68 X10^3/ul (0.83-4.51); Lymphocyte % 31.2 % (19-41); Mean Corp Hgb Conc 33.2 g/dL (32-36); Mean Corpuscular Hgb 31.7 pg (27.0-32.0); Mean Corpuscular Volume 95.5 fL (81-99); Mean Platelet Vol. 8.9 fl (6.2-12.0); Monocyte# 0.72 X10^3/uL; Monocyte% 13.4 % (0-10); NRBC Flagged by Analyzer 0 % (0-5); Neutrophil # 2.75 X10^3/uL (2.7-7.7); Neutrophil % 51.1 % (47-70); Platelet Count 286 K/mm3 (150-450); RBC Distribution Width SD 45.3 fl (35.1-43.9); Red Blood Count 3.82 M/mm3 (4.2-5.4); White Blood Count 5.4 K/mm3 (4.4-11.0)
[2022-09-24 06:57] LABS: ALB/GLOB Ratio 0.8 RATIO (0.9-2.4); AST(SGOT) 14 U/L (15-37); Alanine Aminotransfer ALT/SGPT 20 U/L (13-56); Albumin, Serum 3.2 g/dL (3.2-5.0); Alkaline Phosphatase 115 U/L (45-117); Anion Gap 6 (5-15); BUN 16 mg/dL (7-18); BUN/Creat Ratio 18.8 RATIO (10-20); Calcium,Total 8.6 mg/dL (8.5-10.1); Chloride 110 mmol/L (98-107); Creatinine, Serum 0.85 mg/dL (0.55-1.02); EST Glomerular Filtration Rate 69 mL/min (>60); Est Glom Filt Rate - Afr Amer 84 mL/min (>60); Globulin 3.9 g/dL (2.2-4.2); Glucose 124 mg/dL (74-106); Potassium 4.4 mmol/L (3.5-5.1); Protein, Total 7.1 g/dL (6.4-8.2); Sodium Level 139 mmol/L (136-145)
[2022-09-27 05:11] LABS: Thyroid Stim Hormone (TSH) 2.25 uIU/mL (0.358-3.74)
== END ==
LOC: OLS.WHLEAS 05:00
PROVIDERS: PCP Family Medicine; Visit Provider Family Medicine
DX: Z74.1 Need for assistance with personal care (principal); J98.2 Interstitial emphysema; K63.9 Disease of intestine, unspecified; J96.01 Acute respiratory failure with hypoxia; J90 Pleural effusion, not elsewhere classified; M62.81 Muscle weakness (generalized)
CPT/HCPCS: 36415; 80053; 84443; 85025

== ENCOUNTER → 2022-10-29 | Outpatient (REF) | payer MEDICARE, MEDICAID, SELFPAY ==
[2022-10-29 08:34] LABS: Absolute Lymphocyte Count 1.55 X10^3/uL (0.83-4.51); Absolute Neutrophil Count 2.5 X10^3/uL (2.0-7.7); Basophil# 0.06 X10^3/uL; Basophil% 1.3 % (0-1); Eosinophil# 0.22 X10^3/uL; Eosinophils% 4.6 % (0-5); Hemoglobin 13.2 g/dL (12.0-15.0); Lymphocyte # 1.55 X10^3/ul (0.83-4.51); Lymphocyte % 32.6 % (19-41); Mean Corp Hgb Conc 33.8 g/dL (32-36); Mean Corpuscular Volume 97.5 fL (81-99); Mean Platelet Vol. 9.1 fl (6.2-12.0); Monocyte# 0.46 X10^3/uL; Monocyte% 9.7 % (0-10); NRBC Flagged by Analyzer 0 % (0-5); Neutrophil # 2.45 X10^3/uL (2.7-7.7); Neutrophil % 51.6 % (47-70); Platelet Count 282 K/mm3 (150-450); RBC Distribution Width CV 12.7 % (11.6-14.6); RBC Distribution Width SD 45.5 fl (35.1-43.9); White Blood Count 4.8 K/mm3 (4.4-11.0)
[2022-10-29 08:51] LABS: AST(SGOT) 15 U/L (15-37); Alanine Aminotransfer ALT/SGPT 18 U/L (13-56); Albumin, Serum 3.8 g/dL (3.2-5.0); Alkaline Phosphatase 109 U/L (45-117); Anion Gap 5 (5-15); BUN 18 mg/dL (7-18); Calcium,Total 9.1 mg/dL (8.5-10.1); Chloride 107 mmol/L (98-107); EST Glomerular Filtration Rate 58 mL/min (>60); Est Glom Filt Rate - Afr Amer 70 mL/min (>60); Globulin 3.9 g/dL (2.2-4.2); Glucose 112 mg/dL (74-106); Potassium 4.3 mmol/L (3.5-5.1); Protein, Total 7.7 g/dL (6.4-8.2); Sodium Level 138 mmol/L (136-145)
== END ==
LOC: OLS.WHLEAS 06:55
PROVIDERS: PCP Family Medicine; Referring Provider Family Medicine; Visit Provider Family Medicine
DX: G89.29 Other chronic pain (principal); J98.2 Interstitial emphysema; J96.01 Acute respiratory failure with hypoxia; M62.81 Muscle weakness (generalized); Z79.899 Other long term (current) drug therapy
CPT/HCPCS: 36415; 80053; 85025

== ENCOUNTER → 2022-11-09 | Outpatient (REF) | payer MEDICARE, MEDICAID, SELFPAY ==
[2022-11-09 07:02] LABS: Absolute Lymphocyte Count 1.33 X10^3/uL (0.83-4.51); Absolute Neutrophil Count 2.5 X10^3/uL (2.0-7.7); Basophil# 0.05 X10^3/uL; Basophil% 1.1 % (0-1); Eosinophil# 0.24 X10^3/uL; Eosinophils% 5.1 % (0-5); Hematocrit 36.7 % (37-47); Hemoglobin 11.9 g/dL (12.0-15.0); Lymphocyte # 1.33 X10^3/ul (0.83-4.51); Lymphocyte % 28.2 % (19-41); Mean Corp Hgb Conc 32.4 g/dL (32-36); Mean Corpuscular Hgb 31.6 pg (27.0-32.0); Mean Corpuscular Volume 97.3 fL (81-99); Monocyte% 12.7 % (0-10); NRBC Flagged by Analyzer 0 % (0-5); Neutrophil # 2.48 X10^3/uL (2.7-7.7); Neutrophil % 52.7 % (47-70); Platelet Count 256 K/mm3 (150-450); RBC Distribution Width CV 12.6 % (11.6-14.6); Red Blood Count 3.77 M/mm3 (4.2-5.4); White Blood Count 4.7 K/mm3 (4.4-11.0)
[2022-11-09 07:27] LABS: ALB/GLOB Ratio 0.9 RATIO (0.9-2.4); AST(SGOT) 12 U/L (15-37); Alanine Aminotransfer ALT/SGPT 15 U/L (13-56); Albumin, Serum 3.2 g/dL (3.2-5.0); Alkaline Phosphatase 103 U/L (45-117); Anion Gap 6 (5-15); BUN 14 mg/dL (7-18); BUN/Creat Ratio 15.7 RATIO (10-20); Calcium,Total 8.7 mg/dL (8.5-10.1); Chloride 111 mmol/L (98-107); Creatinine, Serum 0.89 mg/dL (0.55-1.02); EST Glomerular Filtration Rate 66 mL/min (>60); Est Glom Filt Rate - Afr Amer 79 mL/min (>60); Globulin 3.6 g/dL (2.2-4.2); Glucose 135 mg/dL (74-106); Potassium 4.2 mmol/L (3.5-5.1); Protein, Total 6.8 g/dL (6.4-8.2); Sodium Level 141 mmol/L (136-145)
== END ==
LOC: OLS.WHLEAS 05:00
PROVIDERS: PCP Family Medicine; Visit Provider Internal Medicine
DX: G89.29 Other chronic pain (principal); J98.2 Interstitial emphysema; K63.9 Disease of intestine, unspecified; J96.01 Acute respiratory failure with hypoxia; J90 Pleural effusion, not elsewhere classified; M62.81 Muscle weakness (generalized)
CPT/HCPCS: 36415; 80053; 85025

== ENCOUNTER → 2022-11-26 | Outpatient (REF) | payer MEDICARE, MEDICAID, SELFPAY ==
[2022-11-26 09:03] LABS: Absolute Lymphocyte Count 1.32 X10^3/uL (0.83-4.51); Absolute Neutrophil Count 2.7 X10^3/uL (2.0-7.7); Basophil# 0.08 X10^3/uL; Basophil% 1.6 % (0-1); Eosinophil# 0.24 X10^3/uL; Eosinophils% 4.9 % (0-5); Hematocrit 35.7 % (37-47); Hemoglobin 12.1 g/dL (12.0-15.0); Lymphocyte # 1.32 X10^3/ul (0.83-4.51); Lymphocyte % 27.1 % (19-41); Mean Corp Hgb Conc 33.9 g/dL (32-36); Mean Corpuscular Hgb 32.6 pg (27.0-32.0); Mean Corpuscular Volume 96.2 fL (81-99); Mean Platelet Vol. 9.2 fl (6.2-12.0); Monocyte# 0.54 X10^3/uL; Monocyte% 11.1 % (0-10); NRBC Flagged by Analyzer 0 % (0-5); Neutrophil # 2.68 X10^3/uL (2.7-7.7); Neutrophil % 55.1 % (47-70); Platelet Count 264 K/mm3 (150-450); RBC Distribution Width CV 12.6 % (11.6-14.6); RBC Distribution Width SD 44.2 fl (35.1-43.9); Red Blood Count 3.71 M/mm3 (4.2-5.4); White Blood Count 4.9 K/mm3 (4.4-11.0)
[2022-11-26 09:21] LABS: AST(SGOT) 11 U/L (15-37); Alanine Aminotransfer ALT/SGPT 16 U/L (13-56); Albumin, Serum 3.4 g/dL (3.2-5.0); Alkaline Phosphatase 104 U/L (45-117); Anion Gap 7 (5-15); BUN 16 mg/dL (7-18); BUN/Creat Ratio 18.3 RATIO (10-20); Calcium,Total 8.8 mg/dL (8.5-10.1); Chloride 109 mmol/L (98-107); Creatinine, Serum 0.88 mg/dL (0.55-1.02); EST Glomerular Filtration Rate 67 mL/min (>60); Est Glom Filt Rate - Afr Amer 81 mL/min (>60); Globulin 3.5 g/dL (2.2-4.2); Glucose 132 mg/dL (74-106); Potassium 4.1 mmol/L (3.5-5.1); Protein, Total 6.9 g/dL (6.4-8.2); Sodium Level 139 mmol/L (136-145)
== END ==
LOC: OLS.WHLEAS 05:00
PROVIDERS: PCP Family Medicine; Visit Provider Family Medicine
DX: G89.29 Other chronic pain (principal); J98.2 Interstitial emphysema; K63.9 Disease of intestine, unspecified; J96.01 Acute respiratory failure with hypoxia; J90 Pleural effusion, not elsewhere classified; M62.81 Muscle weakness (generalized)
CPT/HCPCS: 36415; 80053; 85025

== ENCOUNTER → 2022-12-24 | Outpatient (REF) | payer MEDICARE, MEDICAID, SELFPAY ==
[2022-12-24 10:49] LABS: Absolute Lymphocyte Count 1.57 X10^3/uL (0.83-4.51); Absolute Neutrophil Count 3.9 X10^3/uL (2.0-7.7); Basophil# 0.06 X10^3/uL; Eosinophil# 0.17 X10^3/uL; Eosinophils% 2.7 % (0-5); Hematocrit 40.3 % (37-47); Hemoglobin 12.8 g/dL (12.0-15.0); Lymphocyte # 1.57 X10^3/ul (0.83-4.51); Lymphocyte % 25.1 % (19-41); Mean Corp Hgb Conc 31.8 g/dL (32-36); Mean Corpuscular Hgb 32.1 pg (27.0-32.0); Mean Platelet Vol. 9.4 fl (6.2-12.0); Monocyte# 0.59 X10^3/uL; Monocyte% 9.4 % (0-10); NRBC Flagged by Analyzer 0 % (0-5); Neutrophil # 3.85 X10^3/uL (2.7-7.7); Neutrophil % 61.5 % (47-70); Platelet Count 308 K/mm3 (150-450); RBC Distribution Width CV 12.6 % (11.6-14.6); RBC Distribution Width SD 46.8 fl (35.1-43.9); Red Blood Count 3.99 M/mm3 (4.2-5.4); White Blood Count 6.3 K/mm3 (4.4-11.0)
[2022-12-24 11:34] LABS: AST(SGOT) 11 U/L (15-37); Alanine Aminotransfer ALT/SGPT 16 U/L (13-56); Albumin, Serum 3.8 g/dL (3.2-5.0); Alkaline Phosphatase 108 U/L (45-117); Anion Gap 5 (5-15); BUN 15 mg/dL (7-18); BUN/Creat Ratio 16.5 RATIO (10-20); Chloride 108 mmol/L (98-107); Creatinine, Serum 0.91 mg/dL (0.55-1.02); EST Glomerular Filtration Rate 64 mL/min (>60); Est Glom Filt Rate - Afr Amer 78 mL/min (>60); Globulin 3.8 g/dL (2.2-4.2); Glucose 133 mg/dL (74-106); Potassium 4.1 mmol/L (3.5-5.1); Protein, Total 7.6 g/dL (6.4-8.2); Sodium Level 140 mmol/L (136-145)
== END ==
LOC: OLS.WHLEAS 05:00
PROVIDERS: PCP Family Medicine; Visit Provider Family Medicine
DX: G89.29 Other chronic pain (principal); J96.01 Acute respiratory failure with hypoxia; M62.81 Muscle weakness (generalized)
CPT/HCPCS: 36415; 80053; 85025

== ENCOUNTER → 2023-01-07 | Outpatient (CLI) | payer MEDICARE, MEDICAID, SELFPAY ==
--- NOTE | 2023-01-07 14:36 | ART_ITS ---
Reason For Study: PVD Procedure A bilateral lower extremity continuous wave Doppler with analog waveform analysis,segmental pressures,and ankle brachial indexes without exercise. Left Segmental Pressures Left brachial= 132mmHg. Left posterior tibial artery = 119mmHg. Left dorsalis pedis artery = 126mmHg. Left digit = 64 mmHg. The left posterior tibial artery waveforms are biphasic. The left dorsalis pedis waveforms are triphasic. Right Segmental Pressures Right brachial= 131mmHg. Right posterior tibial artery = 56mmHg. Right dorsalis pedis artery = 56mmHg. Right digit = 26 mmHg. The right posterior tibial artery waveforms are monophasic. The right dorsalis pedis waveforms are monophasic. Indices The right ankle brachial index by the posterior tibial artery is 0.42. The right ankle brachial index by the dorsalis pedis is 0.42. The right digital-brachial index is 0.20. The left ankle brachial index by the posterior tibial artery is 0.90. The left ankle brachial index by the dorsalis pedis is 0.95. The left digital-brachial index is 0.48. . Unable to reach provider to deliver preliminary results. VL/Ankle Brachial Index Interpretation Summary Right FAISAL 0.42, severe arterial insufficiency. Doppler/PVR waveforms of the rig ht ankle severely diminished. Left FAISAL 0.95, mild arterial insufficiency. Doppler/PVR waveforms of the left a nkle mildly diminished. Ordering Physician: Matilda Doherty Referring Physician: Michael Brownlee Performed By: Barrett Malhotra, RVT
== END | disposition home or self-care (01) ==
LOC: CVS 14:36
PROVIDERS: PCP Family Medicine; Referring Provider Nurse Practitioner Adult Health; Visit Provider Nurse Practitioner Adult Health
DX: I73.9 Peripheral vascular disease, unspecified (principal)
CPT/HCPCS: 93922

== ENCOUNTER → 2023-01-26 | Outpatient (CLI) | payer MEDICARE, MEDICAID, SELFPAY ==
[2023-01-26 16:24] LABS: Creatinine, Serum 1.16 mg/dL (0.55-1.02); EST Glomerular Filtration Rate 48 mL/min (>60); Est Glom Filt Rate - Afr Amer 59 mL/min (>60)
== END | disposition home or self-care (01) ==
PROVIDERS: PCP Family Medicine; Referring Provider Surgery Trauma Surgery; Visit Provider Surgery Trauma Surgery
DX: I73.9 Peripheral vascular disease, unspecified (principal)
CPT/HCPCS: 36415; 82565

== ENCOUNTER → 2023-01-28 | Outpatient (REF) | payer MEDICARE, MEDICAID, SELFPAY ==
[2023-01-28 09:25] LABS: Absolute Lymphocyte Count 1.28 X10^3/uL (0.83-4.51); Absolute Neutrophil Count 3.5 X10^3/uL (2.0-7.7); Basophil# 0.05 X10^3/uL; Basophil% 0.9 % (0-1); Eosinophil# 0.13 X10^3/uL; Eosinophils% 2.4 % (0-5); Hematocrit 37.7 % (37-47); Hemoglobin 12.1 g/dL (12.0-15.0); Lymphocyte # 1.28 X10^3/ul (0.83-4.51); Lymphocyte % 23.2 % (19-41); Mean Corp Hgb Conc 32.1 g/dL (32-36); Mean Corpuscular Hgb 32.3 pg (27.0-32.0); Mean Corpuscular Volume 100.5 fL (81-99); Mean Platelet Vol. 9.3 fl (6.2-12.0); Monocyte# 0.57 X10^3/uL; Monocyte% 10.3 % (0-10); NRBC Flagged by Analyzer 0 % (0-5); Neutrophil # 3.46 X10^3/uL (2.7-7.7); Neutrophil % 62.7 % (47-70); Platelet Count 292 K/mm3 (150-450); RBC Distribution Width CV 12.2 % (11.6-14.6); Red Blood Count 3.75 M/mm3 (4.2-5.4); White Blood Count 5.5 K/mm3 (4.4-11.0)
[2023-01-28 09:31] LABS: ALB/GLOB Ratio 0.9 RATIO (0.9-2.4); AST(SGOT) 10 U/L (15-37); Alanine Aminotransfer ALT/SGPT 17 U/L (13-56); Albumin, Serum 3.4 g/dL (3.2-5.0); Alkaline Phosphatase 107 U/L (45-117); Anion Gap 4 (5-15); BUN 13 mg/dL (7-18); BUN/Creat Ratio 13.7 RATIO (10-20); Chloride 109 mmol/L (98-107); Creatinine, Serum 0.95 mg/dL (0.55-1.02); EST Glomerular Filtration Rate 61 mL/min (>60); Est Glom Filt Rate - Afr Amer 74 mL/min (>60); Globulin 3.8 g/dL (2.2-4.2); Glucose 152 mg/dL (74-106); Potassium 4.1 mmol/L (3.5-5.1); Protein, Total 7.2 g/dL (6.4-8.2); Sodium Level 139 mmol/L (136-145)
== END ==
LOC: OLS.WHLEAS 05:00
PROVIDERS: PCP Family Medicine; Visit Provider Internal Medicine
DX: G89.29 Other chronic pain (principal); J98.2 Interstitial emphysema; K63.9 Disease of intestine, unspecified; J96.01 Acute respiratory failure with hypoxia; J90 Pleural effusion, not elsewhere classified; M62.81 Muscle weakness (generalized)
CPT/HCPCS: 36415; 80053; 85025

== ENCOUNTER 2023-01-30 16:38 | Emergency (ER) | payer MEDICARE, MEDICAID, SELFPAY ==
[2023-01-30 16:40] VITALS: BP 182/74; PULSE 68; RESP 18; TEMP 36.5; O2SAT 98; BMI 26.7
[2023-01-30 16:47] VITALS: BP 174/92; PULSE 59; RESP 18; O2SAT 98
--- NOTE | 2023-01-30 16:57 | RAD_ITS ---
STUDY: X-RAY - PELVIS REASON FOR EXAM: Female, 77 years old. pain TECHNIQUE: One view of the pelvis was obtained. COMPARISON: 06/27/2018 FINDINGS: There is a non-specific bowel gas pattern. Normal visualized soft tissue structures. Normal bilateral iliac wings, sacroiliac joints and visualized sacrum. Healed fractures of the right superior and inferior pubic rami. Normal pubic symphysis. Normal ischial tuberosities. Healed fracture of the intertrochanteric right femur after open reduction internal fixation with a femoral neck compression screw and lateral plate. Normal right acetabulum. Normal right hip joint. Normal visualized left femoral head. Normal left acetabulum. Normal left hip joint. RAD/Pelvis 1 or 2 Views IMPRESSION: No acute fracture or dislocation Electronically Signed: Tejinder Veliz MD at 18:15 EDT ,
--- NOTE | 2023-01-30 16:58 | EDS_ITS ---
HPI History of Present Illness Chief Complaint: Lower Extremity Injury Detail of Chief Complaint: Right leg pain Informant: patient Onset/Context/Timing Onset: Today Narrative Narrative: Patient presents with progressive right leg pain today. She points to the lateral portion of her mid right thigh and complains of pain there. She states she also noted some swelling in her right ankle today. She denies any recent fall or injury. On review of her records it appears she was on prednisone a couple weeks ago for right greater trochanter bursitis. PFSH PFSH Medical History Alcohol abuse Anxiety Chronic pain syndrome Cirrhosis Dementia Depression Essential hypertension Neuropathy PAD (peripheral artery disease) Smoker Home Medications levothyroxine 50 mcg tablet 50 mcg PO DAILY 07/11/21 [History Last Taken Unknown] ibuprofen 200 mg capsule 400 mg PO Q6H PRN Pain 08/07/21 [History Last Taken Unknown] docusate sodium 100 mg capsule (Colace) 100 mg PO DAILY 01/26/23 [History Last Taken Unknown] furosemide 20 mg tablet (Lasix) 20 mg PO QAM 01/26/23 [History Last Taken Unknown] melatonin 5 mg capsule mg PO 01/26/23 [History Last Taken Unknown] mirtazapine 15 mg tablet 15 mg PO QHS 01/26/23 [History Last Taken Unknown] spironolactone 25 mg tablet 25 mg PO BID 01/26/23 [History Last Taken Unknown] prednisone 20 mg tablet 40 mg (2 x 20 mg) PO DAILY #10 tabs 01/30/23 [Rx Last Taken Unknown] Allergy/AdvReac Type Severity Reaction Status Date / Time azithromycin Allergy Intermediate PT UNSURE Verified 01/30/23 16:43 OF REACTION bisoprolol Allergy Intermediate PT UNSURE Verified 01/30/23 16:43 OF REACTION adhesive tape AdvReac Rash Verified 01/30/23 16:43 Surgical History History of appendectomy History of cholecystectomy History of hysterectomy History of repair of right hip joint Social History Smoking Status: Current every day smoker tobacco type: cigarettes Tobacco: How many years used: 40 alcohol intake: former substance use type: does not use ROS ROS ED Constitutional Constitutional ED: Denies chills or fever(s) Eyes Eyes: Denies change in vision or discharge from eye(s) ENT ENT ED: Denies discharge from eye(s), rhinorrhea or sore throat Cardiovascular Cardiovascular: Denies chest pain or palpitations Respiratory/Chest Respiratory/Chest: Denies cough or dyspnea Gastrointestinal Gastrointestinal: Denies abdominal pain, nausea or vomiting Musculoskeletal Musculoskeletal: Reports extremity pain; Denies back pain Integumentary Denies Abrasions or rash Neurologic Neurologic: Denies headache(s) or weakness Allergic/Immunologic Allergic/Immunologic ED: Denies lip swelling or urticaria EXAM Physical Exam Const Vital Signs: 01/30/23 16:40 01/30/23 16:47 01/30/23 17:37 Temperature 97.7 F L Temperature Source Oral Pulse Rate 68 59 L 66 Respiratory Rate 18 18 18 Blood Pressure 182/74 H 174/92 H 181/77 H Blood Pressure Mean 110 119 111 Pulse Ox 98 98 98 Oxygen Delivery Method Room Air Room Air Room Air Positive well nourished and well developed General Appearance ED: well developed Eyes EOMs intact bilaterally Neck no lymphadenopathy Chest Wall inspection of chest normal and palpation of chest normal Resp normal respiratory effort and clear to auscultation bilaterally Cardio regular rate and regular rhythm GI non-tender Palpation: soft Back/Spine Back/Spine Narrative: No thoracic or lumbar tenderness to palpation. Extremity Extremity Narrative: Mild tenderness to the lateral right thigh. No skin changes noted. Mild edema noted to the lateral malleolus of the right ankle. No leg edema noted over the calf or thigh. No skin changes appreciated. Strong distal pulses. Neuro oriented x3 and no sensory deficits noted Psych mental status grossly normal MDM MDM MDM Narrative Medical decision making narrative: Patient has been getting Tylenol regularly at the [facility]. She was given a dose of oxycodone here. X-rays of the pelvis, right femur, right ankle obtained to evaluate for fracture. Radiography Diagnostic Testing: Clinical Impression(s) from Imaging Studies Pelvis X-Ray 01/30/23 16:57 IMPRESSION: No acute fracture or dislocation Electronically Signed: Tejinder Veliz MD at 18:15 EDT , Ankle X-Ray 01/30/23 17:05 IMPRESSION: Normal x-ray examination of the ankle. Electronically Signed: Tejinder Veliz MD at 17:42 EDT , Femur X-Ray 01/30/23 17:05 IMPRESSION: No acute fracture or dislocation. Electronically Signed: Tejinder Veliz MD at 18:05 EDT , Treatment and Re-Evaluation :: X-rays of the pelvis, right femur, and right ankle per my interpretation reveal no evidence of bony fracture. Radiology interpretation is reviewed and agrees. Patient is on prednisone January 12 the for right hip bursitis per the records. Patient does not remember this. I think this likely irritated the sciatic nerve running down the lateral aspect of her thigh and now has nerve irritation. I do not see significant edema concerning for a blood clot. I will treat patient with another course of steroids. I will speak with her [facility] doctor or whoever is on-call for her. Discharge Plan Triage Chief Complaint: Lower Extremity Injury ED Provider: Darlene Veliz Dx/Rx/DC Orders Clinical Impression: Acute pain of right thigh Instructions: ED Contusion, Lower Extremity, ED Muscle Strain, Extremity Prescriptions: New prednisone 20 mg tablet 40 mg PO DAILY Qty: 10 0RF No Action ibuprofen 200 mg capsule 400 mg PO Q6H PRN (Reason: Pain) levothyroxine 50 mcg tablet 50 mcg PO DAILY Patient Comments: take 1 tablet by mouth every morning ON AN EMPTY STOMACH Primary Care Provider: Viviana Mcgee Referrals: Viviana Mcgee MD [Primary Care Provider] - 3-5 Days Michael Brownlee MD [Non-Staff] - Disposition Disposition: Home, Self Care
--- NOTE | 2023-01-30 17:05 | RAD_ITS ---
STUDY: X-RAY - RIGHT FEMUR REASON FOR STUDY: Female, 77 years old. pain TECHNIQUE: 2 view(s) of the femur. COMPARISON: 06/27/2018 FINDINGS: Healed fracture of the intertrochanteric right femur with the femoral neck compression screw and lateral plate and screws. Normal visualized soft tissue structure. RAD/Femur Min 2 Views IMPRESSION: No acute fracture or dislocation. Electronically Signed: Tejinder Veliz MD at 18:05 EDT ,
--- NOTE | 2023-01-30 17:05 | RAD_ITS ---
STUDY: X-RAY - RIGHT ANKLE REASON FOR EXAM: Female, 77 years old. pain TECHNIQUE: 3 view(s) of the ankle. COMPARISON: None. FINDINGS: Normal visualized distal tibia and fibula. Normal medial and lateral malleoli. Normal tibiotalar articulation and ankle mortise. Normal visualized talus and calcaneus. Moderate-sized plantar calcaneal enthesophyte. The visualized subtalar, talonavicular, calcaneocuboid and tarsal articulations are normal. The soft tissue structures are unremarkable. RAD/Ankle min 3 Views IMPRESSION: Normal x-ray examination of the ankle. Electronically Signed: Tejinder Veliz MD at 17:42 EDT ,
[2023-01-30] MEDS: oxyCODONE 5 MG Tablet PO (17:15)
[2023-01-30 17:37] VITALS: BP 181/77; PULSE 66; RESP 18; O2SAT 98
[2023-01-30 18:46] VITALS: BP 162/83; PULSE 63; RESP 14; O2SAT 97
== END 2023-01-30 18:55 | disposition home or self-care (01) ==
PROVIDERS: Emergency Provider Emergency Medicine; PCP Internal Medicine; Visit Provider Emergency Medicine
DX: M79.651 Pain in right thigh (principal); I10 Essential (primary) hypertension; F17.210 Nicotine dependence, cigarettes, uncomplicated; F32.A Depression, unspecified; Z79.899 Other long term (current) drug therapy; Z90.49 Acquired absence of other specified parts of digestive tract; Z90.710 Acquired absence of both cervix and uterus
CPT/HCPCS: 72170; 73552; 73610; 99284

== ENCOUNTER → 2023-02-25 | Outpatient (REF) | payer MEDICARE, MEDICAID, SELFPAY ==
[2023-02-25 09:39] LABS: Absolute Lymphocyte Count 1.49 X10^3/uL (0.83-4.51); Absolute Neutrophil Count 2.8 X10^3/uL (2.0-7.7); Basophil# 0.05 X10^3/uL; Eosinophil# 0.16 X10^3/uL; Eosinophils% 3.1 % (0-5); Hematocrit 36.2 % (37-47); Hemoglobin 12.1 g/dL (12.0-15.0); Lymphocyte # 1.49 X10^3/ul (0.83-4.51); Lymphocyte % 29.2 % (19-41); Mean Corp Hgb Conc 33.4 g/dL (32-36); Mean Corpuscular Hgb 32.7 pg (27.0-32.0); Mean Corpuscular Volume 97.8 fL (81-99); Mean Platelet Vol. 9.3 fl (6.2-12.0); Monocyte% 11.8 % (0-10); NRBC Flagged by Analyzer 0 % (0-5); Neutrophil # 2.78 X10^3/uL (2.7-7.7); Neutrophil % 54.5 % (47-70); Platelet Count 281 K/mm3 (150-450); RBC Distribution Width CV 12.5 % (11.6-14.6); White Blood Count 5.1 K/mm3 (4.4-11.0)
[2023-02-25 09:54] LABS: ALB/GLOB Ratio 0.8 RATIO (0.9-2.4); AST(SGOT) 9 U/L (15-37); Alanine Aminotransfer ALT/SGPT 15 U/L (13-56); Albumin, Serum 3.1 g/dL (3.2-5.0); Alkaline Phosphatase 102 U/L (45-117); Anion Gap 4 (5-15); BUN 13 mg/dL (7-18); BUN/Creat Ratio 14.4 RATIO (10-20); Calcium,Total 8.4 mg/dL (8.5-10.1); Chloride 109 mmol/L (98-107); EST Glomerular Filtration Rate 64 mL/min (>60); Est Glom Filt Rate - Afr Amer 78 mL/min (>60); Globulin 3.8 g/dL (2.2-4.2); Glucose 165 mg/dL (74-106); Potassium 4.2 mmol/L (3.5-5.1); Protein, Total 6.9 g/dL (6.4-8.2); Sodium Level 139 mmol/L (136-145)
== END ==
LOC: OLS.WHLEAS 05:00
PROVIDERS: PCP Internal Medicine
DX: G89.29 Other chronic pain (principal); J98.2 Interstitial emphysema; J44.9 Chronic obstructive pulmonary disease, unspecified; I10 Essential (primary) hypertension; E03.9 Hypothyroidism, unspecified; K70.30 Alcoholic cirrhosis of liver without ascites
CPT/HCPCS: 36415; 80053; 85025

== ENCOUNTER → 2023-03-25 | Outpatient (REF) | payer MEDICARE, MEDICAID, SELFPAY ==
[2023-03-25 09:08] LABS: Absolute Lymphocyte Count 1.53 X10^3/uL (0.83-4.51); Absolute Neutrophil Count 4.9 X10^3/uL (2.0-7.7); Basophil# 0.06 X10^3/uL; Basophil% 0.8 % (0-1); Eosinophil# 0.17 X10^3/uL; Eosinophils% 2.3 % (0-5); Hematocrit 38.8 % (37-47); Hemoglobin 12.6 g/dL (12.0-15.0); Lymphocyte # 1.53 X10^3/ul (0.83-4.51); Lymphocyte % 20.6 % (19-41); Mean Corp Hgb Conc 32.5 g/dL (32-36); Mean Corpuscular Hgb 31.7 pg (27.0-32.0); Mean Corpuscular Volume 97.5 fL (81-99); Mean Platelet Vol. 9.1 fl (6.2-12.0); Monocyte# 0.72 X10^3/uL; Monocyte% 9.7 % (0-10); NRBC Flagged by Analyzer 0 % (0-5); Neutrophil # 4.91 X10^3/uL (2.7-7.7); Neutrophil % 66.1 % (47-70); Platelet Count 337 K/mm3 (150-450); RBC Distribution Width CV 12.2 % (11.6-14.6); RBC Distribution Width SD 44.2 fl (35.1-43.9); Red Blood Count 3.98 M/mm3 (4.2-5.4); White Blood Count 7.4 K/mm3 (4.4-11.0)
[2023-03-25 09:30] LABS: ALB/GLOB Ratio 0.9 RATIO (0.9-2.4); AST(SGOT) 10 U/L (15-37); Alanine Aminotransfer ALT/SGPT 16 U/L (13-56); Albumin, Serum 3.7 g/dL (3.2-5.0); Alkaline Phosphatase 109 U/L (45-117); Anion Gap 5 (5-15); BUN 20 mg/dL (7-18); BUN/Creat Ratio 19.6 RATIO (10-20); Calcium,Total 9.1 mg/dL (8.5-10.1); Chloride 107 mmol/L (98-107); Creatinine, Serum 1.02 mg/dL (0.55-1.02); EST Glomerular Filtration Rate 56 mL/min (>60); Est Glom Filt Rate - Afr Amer 68 mL/min (>60); Globulin 4.1 g/dL (2.2-4.2); Glucose 189 mg/dL (74-106); Potassium 4.4 mmol/L (3.5-5.1); Protein, Total 7.8 g/dL (6.4-8.2); Sodium Level 135 mmol/L (136-145)
== END ==
LOC: OLS.WHLEAS 05:00
PROVIDERS: PCP Internal Medicine; Visit Provider Internal Medicine
DX: G89.29 Other chronic pain (principal); I10 Essential (primary) hypertension
CPT/HCPCS: 36415; 80053; 85025

== ENCOUNTER → 2023-03-28 | Outpatient (CLI) | payer MEDICARE, MEDICAID, SELFPAY ==
--- NOTE | 2023-03-28 13:08 | CT_ITS ---
STUDY: CTA OF THE ABDOMINAL AORTA AND BILATERAL LOWER EXTREMITIES REASON FOR EXAM: Female, 77 years old. Claudication RADIATION DOSAGE (If Supplied By Facility): CTDIvol = ( 6.51 ) mGy, DLP = ( 1313.23 ) mGycm TECHNIQUE: Axial CT angiography multi-detector data acquisition was obtained from the dome of the liver to the level of the ankles following intravenous administration of IV 100mL Isovue-[id number]. Axial images and MIP images were reconstructed from the axial data set. Post-processing of the angiographic images was performed, with multiplanar reformation and 3D reconstruction. Individualized dose optimization techniques were used for this CT. TECHNICAL QUALITY: Good COMPARISON: Comparison is made with prior study dated July 11, 2021. Descriptors of Narrowing: None (0%) Mild (< 50%) Moderate (50-70%) Severe (70-90%) Subtotal/Total Occlusion (90-100%) Non-Evaluable (technically non-diagnostic FINDINGS: Diffuse fatty infiltration of the liver. Hepatomegaly. Abdominal aorta: Atherosclerotic plaque formation. No significant stenosis is seen. Celiac and superior mesenteric arteries: No demonstrated narrowing. Inferior mesenteric artery: No demonstrated narrowing. Right renal artery(arteries): No demonstrated narrowing. Left renal artery(arteries): No demonstrated narrowing. Right common iliac artery: Mild degree of atherosclerotic tract formation. Right external iliac artery: No demonstrated narrowing. Right internal iliac artery: No demonstrated narrowing. Left common iliac artery: Mild degree of atherosclerotic plaque formation. Left external iliac artery: No demonstrated narrowing. Left internal iliac artery: No demonstrated narrowing. RIGHT LOWER EXTREMITY Right common femoral artery: No demonstrated narrowing. Right profundus femoris: No demonstrated narrowing. 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 Right popliteal artery: Reconstitution of the popliteal artery at its origin. Right tibioperoneal trunk: No demonstrated narrowing. Right anterior tibial artery: No demonstrated narrowing. Right posterior tibial artery: No demonstrated narrowing. Right peroneal artery: No demonstrated narrowing. LEFT LOWER EXTREMITY Left common femoral artery: No demonstrated narrowing. Left profundus femoris: No demonstrated narrowing. Left superficial femoral: No demonstrated narrowing. Left popliteal artery: No demonstrated narrowing. Left tibioperoneal trunk: Moderate degree of diffuse narrowing. Left anterior tibial artery: No demonstrated narrowing. Left posterior tibial artery: No demonstrated narrowing. Left peroneal artery: No demonstrated narrowing. 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 Electronically Signed: Martinez Amin MD at 15:33 EST ,
== END | disposition home or self-care (01) ==
LOC: CT 13:08
PROVIDERS: PCP Internal Medicine; Referring Provider Physician Assistant; Visit Provider Physician Assistant
DX: I73.9 Peripheral vascular disease, unspecified (principal); I70.90 Unspecified atherosclerosis
CPT/HCPCS: 75635; Q9967

== ENCOUNTER → 2023-04-29 | Outpatient (REF) | payer MEDICARE, MEDICAID, SELFPAY ==
[2023-04-29 09:03] LABS: Absolute Lymphocyte Count 1.47 X10^3/uL (0.83-4.51); Absolute Neutrophil Count 3.4 X10^3/uL (2.0-7.7); Basophil# 0.07 X10^3/uL; Basophil% 1.3 % (0-1); Eosinophil# 0.17 X10^3/uL; Hematocrit 39.3 % (37-47); Hemoglobin 12.6 g/dL (12.0-15.0); Lymphocyte # 1.47 X10^3/ul (0.83-4.51); Lymphocyte % 26.3 % (19-41); Mean Corp Hgb Conc 32.1 g/dL (32-36); Mean Corpuscular Hgb 31.7 pg (27.0-32.0); Mean Corpuscular Volume 98.7 fL (81-99); Mean Platelet Vol. 9.3 fl (6.2-12.0); Monocyte# 0.49 X10^3/uL; Monocyte% 8.8 % (0-10); NRBC Flagged by Analyzer 0 % (0-5); Neutrophil # 3.36 X10^3/uL (2.7-7.7); Neutrophil % 60.2 % (47-70); Platelet Count 289 K/mm3 (150-450); RBC Distribution Width CV 12.9 % (11.6-14.6); RBC Distribution Width SD 46.8 fl (35.1-43.9); Red Blood Count 3.98 M/mm3 (4.2-5.4); White Blood Count 5.6 K/mm3 (4.4-11.0)
[2023-04-29 09:23] LABS: ALB/GLOB Ratio 0.9 RATIO (0.9-2.4); AST(SGOT) 10 U/L (15-37); Alanine Aminotransfer ALT/SGPT 14 U/L (13-56); Albumin, Serum 3.6 g/dL (3.2-5.0); Alkaline Phosphatase 102 U/L (45-117); Anion Gap 5 (5-15); BUN 16 mg/dL (7-18); BUN/Creat Ratio 16.7 RATIO (10-20); Chloride 109 mmol/L (98-107); Creatinine, Serum 0.96 mg/dL (0.55-1.02); EST Glomerular Filtration Rate 60 mL/min (>60); Est Glom Filt Rate - Afr Amer 73 mL/min (>60); Globulin 3.9 g/dL (2.2-4.2); Glucose 144 mg/dL (74-106); Potassium 4.1 mmol/L (3.5-5.1); Protein, Total 7.5 g/dL (6.4-8.2); Sodium Level 139 mmol/L (136-145)
== END ==
LOC: OLS.WHLEAS 05:00
PROVIDERS: PCP Internal Medicine; Visit Provider Internal Medicine
DX: E55.9 Vitamin D deficiency, unspecified (principal); G89.29 Other chronic pain; I10 Essential (primary) hypertension; E03.9 Hypothyroidism, unspecified
CPT/HCPCS: 36415; 80053; 82306; 85025

== ENCOUNTER → 2023-05-27 | Outpatient (REF) | payer MEDICARE, MEDICAID, SELFPAY ==
[2023-05-27 08:34] LABS: Absolute Lymphocyte Count 1.09 X10^3/uL (0.83-4.51); Absolute Neutrophil Count 9.1 X10^3/uL (2.0-7.7); Basophil# 0.04 X10^3/uL; Basophil% 0.4 % (0-1); Eosinophil# 0.08 X10^3/uL; Eosinophils% 0.7 % (0-5); Hematocrit 39.5 % (37-47); Hemoglobin 12.5 g/dL (12.0-15.0); Lymphocyte # 1.09 X10^3/ul (0.83-4.51); Lymphocyte % 9.6 % (19-41); Mean Corp Hgb Conc 31.6 g/dL (32-36); Mean Platelet Vol. 9.3 fl (6.2-12.0); Monocyte# 1.02 X10^3/uL; NRBC Flagged by Analyzer 0 % (0-5); Neutrophil # 9.05 X10^3/uL (2.7-7.7); Platelet Count 301 K/mm3 (150-450); RBC Distribution Width SD 48.2 fl (35.1-43.9); Red Blood Count 3.91 M/mm3 (4.2-5.4); White Blood Count 11.3 K/mm3 (4.4-11.0)
[2023-05-27 08:57] LABS: ALB/GLOB Ratio 0.9 RATIO (0.9-2.4); AST(SGOT) 14 U/L (15-37); Alanine Aminotransfer ALT/SGPT 21 U/L (13-56); Albumin, Serum 3.8 g/dL (3.2-5.0); Alkaline Phosphatase 117 U/L (45-117); Anion Gap 4 (5-15); BUN 21 mg/dL (7-18); BUN/Creat Ratio 18.8 RATIO (10-20); Chloride 114 mmol/L (98-107); Creatinine, Serum 1.12 mg/dL (0.55-1.02); EST Glomerular Filtration Rate 50 mL/min (>60); Est Glom Filt Rate - Afr Amer 61 mL/min (>60); Globulin 4.1 g/dL (2.2-4.2); Glucose 224 mg/dL (74-106); Potassium 4.6 mmol/L (3.5-5.1); Protein, Total 7.9 g/dL (6.4-8.2); Sodium Level 137 mmol/L (136-145)
== END ==
LOC: OLS.WHLEAS 05:00
PROVIDERS: PCP Internal Medicine; Visit Provider Internal Medicine
DX: G89.29 Other chronic pain (principal); I10 Essential (primary) hypertension; E03.9 Hypothyroidism, unspecified; J44.9 Chronic obstructive pulmonary disease, unspecified
CPT/HCPCS: 36415; 80053; 85025

== ENCOUNTER → 2023-06-24 | Outpatient (REF) | payer MEDICARE, MEDICAID, SELFPAY ==
[2023-06-24 08:16] LABS: Absolute Lymphocyte Count 1.01 X10^3/uL (0.83-4.51); Absolute Neutrophil Count 4.2 X10^3/uL (2.0-7.7); Basophil# 0.04 X10^3/uL; Basophil% 0.7 % (0-1); Eosinophil# 0.18 X10^3/uL; Eosinophils% 2.9 % (0-5); Hematocrit 36.5 % (37-47); Hemoglobin 11.9 g/dL (12.0-15.0); Lymphocyte # 1.01 X10^3/ul (0.83-4.51); Lymphocyte % 16.4 % (19-41); Mean Corp Hgb Conc 32.6 g/dL (32-36); Mean Corpuscular Hgb 32.2 pg (27.0-32.0); Mean Corpuscular Volume 98.9 fL (81-99); Mean Platelet Vol. 9.1 fl (6.2-12.0); Monocyte# 0.71 X10^3/uL; Monocyte% 11.5 % (0-10); NRBC Flagged by Analyzer 0 % (0-5); Neutrophil % 68.3 % (47-70); Platelet Count 267 K/mm3 (150-450); RBC Distribution Width CV 12.8 % (11.6-14.6); RBC Distribution Width SD 46.1 fl (35.1-43.9); Red Blood Count 3.69 M/mm3 (4.2-5.4); White Blood Count 6.2 K/mm3 (4.4-11.0)
[2023-06-24 08:34] LABS: AST(SGOT) 11 U/L (15-37); Alanine Aminotransfer ALT/SGPT 16 U/L (13-56); Albumin, Serum 3.4 g/dL (3.2-5.0); Alkaline Phosphatase 110 U/L (45-117); Anion Gap 4 (5-15); BUN 12 mg/dL (7-18); BUN/Creat Ratio 12.3 RATIO (10-20); Calcium,Total 9.2 mg/dL (8.5-10.1); Chloride 111 mmol/L (98-107); Cholesterol 108 mg/dL (200); Creatinine, Serum 0.97 mg/dL (0.55-1.02); EST Glomerular Filtration Rate 59 mL/min (>60); Est Glom Filt Rate - Afr Amer 72 mL/min (>60); Globulin 3.4 g/dL (2.2-4.2); Glucose 142 mg/dL (74-106); High Density Lipoprotein 38 mg/dL; Potassium 4.3 mmol/L (3.5-5.1); Protein, Total 6.8 g/dL (6.4-8.2); Sodium Level 140 mmol/L (136-145); Triglycerides 204 mg/dL; Very Low Density Lipoprotein 41 mg/dL (5-40)
[2023-06-24 09:16] LABS: Hemoglobin A1c 7.5 % (3.8-5.6)
== END ==
LOC: OLS.WHLEAS 05:00
PROVIDERS: PCP Internal Medicine; Visit Provider Nurse Practitioner Adult Health
DX: R73.9 Hyperglycemia, unspecified (principal); I10 Essential (primary) hypertension; G89.29 Other chronic pain; E03.9 Hypothyroidism, unspecified
CPT/HCPCS: 36415; 80053; 80061; 83036; 85025

== ENCOUNTER → 2023-07-29 | Outpatient (REF) | payer MEDICARE, MEDICAID, SELFPAY ==
[2023-07-29 07:48] LABS: Absolute Lymphocyte Count 1.41 X10^3/uL (0.83-4.51); Absolute Neutrophil Count 4.4 X10^3/uL (2.0-7.7); Basophil# 0.05 X10^3/uL; Basophil% 0.7 % (0-1); Eosinophil# 0.18 X10^3/uL; Eosinophils% 2.7 % (0-5); Hematocrit 37.3 % (37-47); Lymphocyte # 1.41 X10^3/ul (0.83-4.51); Lymphocyte % 21.1 % (19-41); Mean Corp Hgb Conc 32.2 g/dL (32-36); Mean Corpuscular Hgb 31.9 pg (27.0-32.0); Mean Corpuscular Volume 99.2 fL (81-99); Mean Platelet Vol. 9.4 fl (6.2-12.0); Monocyte# 0.61 X10^3/uL; Monocyte% 9.1 % (0-10); NRBC Flagged by Analyzer 0 % (0-5); Neutrophil # 4.41 X10^3/uL (2.7-7.7); Platelet Count 275 K/mm3 (150-450); RBC Distribution Width CV 12.8 % (11.6-14.6); RBC Distribution Width SD 46.4 fl (35.1-43.9); Red Blood Count 3.76 M/mm3 (4.2-5.4); White Blood Count 6.7 K/mm3 (4.4-11.0)
[2023-07-29 08:00] LABS: AST(SGOT) 17 U/L (15-37); Alanine Aminotransfer ALT/SGPT 15 U/L (13-56); Albumin, Serum 3.4 g/dL (3.2-5.0); Alkaline Phosphatase 92 U/L (45-117); Anion Gap 4 (5-15); BUN 12 mg/dL (7-18); BUN/Creat Ratio 13.4 RATIO (10-20); Calcium,Total 8.8 mg/dL (8.5-10.1); Chloride 113 mmol/L (98-107); Creatinine, Serum 0.89 mg/dL (0.55-1.02); EST Glomerular Filtration Rate 65 mL/min (>60); Est Glom Filt Rate - Afr Amer 79 mL/min (>60); Globulin 3.4 g/dL (2.2-4.2); Glucose 112 mg/dL (74-106); Protein, Total 6.8 g/dL (6.4-8.2); Sodium Level 142 mmol/L (136-145)
== END ==
LOC: OLS.WHLEAS 05:00
PROVIDERS: PCP Internal Medicine; Visit Provider Internal Medicine
DX: G89.29 Other chronic pain (principal); J44.9 Chronic obstructive pulmonary disease, unspecified; I10 Essential (primary) hypertension; E03.9 Hypothyroidism, unspecified
CPT/HCPCS: 36415; 80053; 85025

== ENCOUNTER → 2023-08-16 | Outpatient (REF) | payer MEDICARE, MEDICAID, SELFPAY ==
[2023-08-16 08:45] LABS: Vitamin D,25 Hydroxy 74.1 ng/mL
== END ==
LOC: OLS.WHLEAS 05:00
PROVIDERS: PCP Internal Medicine; Visit Provider Internal Medicine
DX: E55.9 Vitamin D deficiency, unspecified (principal)
CPT/HCPCS: 36415; 82306

== ENCOUNTER → 2023-08-26 | Outpatient (REF) | payer MEDICARE, MEDICAID, SELFPAY ==
[2023-08-26 07:43] LABS: Absolute Lymphocyte Count 1.44 X10^3/uL (0.83-4.51); Absolute Neutrophil Count 2.5 X10^3/uL (2.0-7.7); Basophil# 0.06 X10^3/uL; Basophil% 1.3 % (0-1); Eosinophil# 0.18 X10^3/uL; Eosinophils% 3.8 % (0-5); Hematocrit 37.6 % (37-47); Hemoglobin 12.1 g/dL (12.0-15.0); Lymphocyte # 1.44 X10^3/ul (0.83-4.51); Lymphocyte % 30.2 % (19-41); Mean Corp Hgb Conc 32.2 g/dL (32-36); Mean Corpuscular Volume 99.5 fL (81-99); Mean Platelet Vol. 9.3 fl (6.2-12.0); Monocyte# 0.56 X10^3/uL; Monocyte% 11.7 % (0-10); NRBC Flagged by Analyzer 0 % (0-5); Neutrophil # 2.52 X10^3/uL (2.7-7.7); Neutrophil % 52.8 % (47-70); Platelet Count 250 K/mm3 (150-450); RBC Distribution Width CV 12.6 % (11.6-14.6); Red Blood Count 3.78 M/mm3 (4.2-5.4); White Blood Count 4.8 K/mm3 (4.4-11.0)
[2023-08-26 08:47] LABS: ALB/GLOB Ratio 1.1 RATIO (0.9-2.4); AST(SGOT) 16 U/L (15-37); Alanine Aminotransfer ALT/SGPT 17 U/L (13-56); Albumin, Serum 3.6 g/dL (3.2-5.0); Alkaline Phosphatase 89 U/L (45-117); Anion Gap 8 (5-15); BUN 16 mg/dL (7-18); BUN/Creat Ratio 17.3 RATIO (10-20); Calcium,Total 8.8 mg/dL (8.5-10.1); Chloride 109 mmol/L (98-107); Creatinine, Serum 0.92 mg/dL (0.55-1.02); EST Glomerular Filtration Rate 63 mL/min (>60); Est Glom Filt Rate - Afr Amer 76 mL/min (>60); Globulin 3.3 g/dL (2.2-4.2); Glucose 121 mg/dL (74-106); Potassium 4.3 mmol/L (3.5-5.1); Protein, Total 6.9 g/dL (6.4-8.2); Sodium Level 141 mmol/L (136-145); Thyroid Stim Hormone (TSH) 1.89 uIU/mL (0.358-3.74)
== END ==
LOC: OLS.WHLEAS 05:00
PROVIDERS: PCP Internal Medicine; Visit Provider Nurse Practitioner Adult Health
DX: J98.2 Interstitial emphysema (principal); I10 Essential (primary) hypertension; J44.9 Chronic obstructive pulmonary disease, unspecified; E03.9 Hypothyroidism, unspecified; G89.29 Other chronic pain
CPT/HCPCS: 36415; 80053; 84443; 85025

== ENCOUNTER → 2023-09-30 | Outpatient (REF) | payer MEDICARE, MEDICAID, SELFPAY ==
[2023-09-30 08:55] LABS: Absolute Lymphocyte Count 1.58 X10^3/uL (0.83-4.51); Absolute Neutrophil Count 2.5 X10^3/uL (2.0-7.7); Basophil# 0.05 X10^3/uL; Eosinophil# 0.29 X10^3/uL; Eosinophils% 5.8 % (0-5); Hematocrit 36.7 % (37-47); Hemoglobin 11.9 g/dL (12.0-15.0); Lymphocyte # 1.58 X10^3/ul (0.83-4.51); Lymphocyte % 31.8 % (19-41); Mean Corp Hgb Conc 32.4 g/dL (32-36); Mean Corpuscular Hgb 32.2 pg (27.0-32.0); Mean Corpuscular Volume 99.5 fL (81-99); Mean Platelet Vol. 9.5 fl (6.2-12.0); Monocyte# 0.53 X10^3/uL; Monocyte% 10.7 % (0-10); NRBC Flagged by Analyzer 0 % (0-5); Neutrophil # 2.51 X10^3/uL (2.7-7.7); Neutrophil % 50.5 % (47-70); Platelet Count 288 K/mm3 (150-450); RBC Distribution Width CV 12.3 % (11.6-14.6); RBC Distribution Width SD 44.5 fl (35.1-43.9); Red Blood Count 3.69 M/mm3 (4.2-5.4)
[2023-09-30 09:08] LABS: AST(SGOT) 13 U/L (15-37); Alanine Aminotransfer ALT/SGPT 20 U/L (13-56); Albumin, Serum 3.5 g/dL (3.2-5.0); Alkaline Phosphatase 108 U/L (45-117); Anion Gap 9 (5-15); BUN 13 mg/dL (7-18); BUN/Creat Ratio 14.4 RATIO (10-20); Calcium,Total 8.4 mg/dL (8.5-10.1); Chloride 108 mmol/L (98-107); EST Glomerular Filtration Rate 64 mL/min (>60); Est Glom Filt Rate - Afr Amer 78 mL/min (>60); Globulin 3.4 g/dL (2.2-4.2); Glucose 150 mg/dL (74-106); Protein, Total 6.9 g/dL (6.4-8.2); Sodium Level 142 mmol/L (136-145)
[2023-10-05 08:28] LABS: Hemoglobin A1c 6.6 % (3.8-5.6)
== END ==
LOC: OLS.WHLEAS 04:00
PROVIDERS: PCP Internal Medicine; Referring Provider Internal Medicine; Visit Provider Internal Medicine
DX: G89.29 Other chronic pain (principal); I10 Essential (primary) hypertension; J98.2 Interstitial emphysema; J44.9 Chronic obstructive pulmonary disease, unspecified; E03.9 Hypothyroidism, unspecified; Z79.899 Other long term (current) drug therapy
CPT/HCPCS: 36415; 80053; 83036; 85025

== ENCOUNTER → 2023-10-28 | Outpatient (REF) | payer MEDICARE, MEDICAID, SELFPAY ==
[2023-10-28 08:06] LABS: Absolute Lymphocyte Count 1.67 X10^3/uL (0.83-4.51); Absolute Neutrophil Count 4.2 X10^3/uL (2.0-7.7); Basophil# 0.05 X10^3/uL; Basophil% 0.7 % (0-1); Eosinophil# 0.18 X10^3/uL; Eosinophils% 2.7 % (0-5); Hematocrit 38.6 % (37-47); Hemoglobin 12.1 g/dL (12.0-15.0); Lymphocyte # 1.67 X10^3/ul (0.83-4.51); Mean Corp Hgb Conc 31.3 g/dL (32-36); Mean Corpuscular Hgb 31.3 pg (27.0-32.0); Mean Corpuscular Volume 99.7 fL (81-99); Mean Platelet Vol. 9.5 fl (6.2-12.0); NRBC Flagged by Analyzer 0 % (0-5); Neutrophil # 4.16 X10^3/uL (2.7-7.7); Neutrophil % 62.3 % (47-70); Platelet Count 320 K/mm3 (150-450); RBC Distribution Width CV 12.4 % (11.6-14.6); RBC Distribution Width SD 45.1 fl (35.1-43.9); Red Blood Count 3.87 M/mm3 (4.2-5.4); White Blood Count 6.7 K/mm3 (4.4-11.0)
[2023-10-28 08:28] LABS: AST(SGOT) 17 U/L (15-37); Alanine Aminotransfer ALT/SGPT 19 U/L (13-56); Albumin, Serum 3.7 g/dL (3.2-5.0); Alkaline Phosphatase 108 U/L (45-117); Anion Gap 5 (5-15); BUN 14 mg/dL (7-18); BUN/Creat Ratio 15.5 RATIO (10-20); Calcium,Total 8.8 mg/dL (8.5-10.1); Chloride 108 mmol/L (98-107); Creatinine, Serum 0.91 mg/dL (0.55-1.02); EST Glomerular Filtration Rate 64 mL/min (>60); Est Glom Filt Rate - Afr Amer 78 mL/min (>60); Globulin 3.6 g/dL (2.2-4.2); Glucose 131 mg/dL (74-106); Protein, Total 7.3 g/dL (6.4-8.2); Sodium Level 140 mmol/L (136-145); Vitamin D,25 Hydroxy 36.6 ng/mL
== END ==
LOC: OLS.WHLEAS 05:00
PROVIDERS: PCP Internal Medicine; Visit Provider Internal Medicine
DX: E55.9 Vitamin D deficiency, unspecified (principal); G89.29 Other chronic pain; I10 Essential (primary) hypertension; J44.9 Chronic obstructive pulmonary disease, unspecified
CPT/HCPCS: 36415; 80053; 82306; 85025

== ENCOUNTER → 2023-11-25 | Outpatient (REF) | payer MEDICARE, MEDICAID, SELFPAY ==
[2023-11-25 08:18] LABS: Absolute Lymphocyte Count 1.63 X10^3/uL (0.83-4.51); Absolute Neutrophil Count 3.6 X10^3/uL (2.0-7.7); Basophil# 0.05 X10^3/uL; Basophil% 0.8 % (0-1); Eosinophil# 0.14 X10^3/uL; Eosinophils% 2.4 % (0-5); Hematocrit 35.5 % (37-47); Hemoglobin 11.6 g/dL (12.0-15.0); Lymphocyte # 1.63 X10^3/ul (0.83-4.51); Lymphocyte % 27.4 % (19-41); Mean Corp Hgb Conc 32.7 g/dL (32-36); Mean Corpuscular Volume 98.1 fL (81-99); Mean Platelet Vol. 9.8 fl (6.2-12.0); Monocyte# 0.55 X10^3/uL; Monocyte% 9.3 % (0-10); NRBC Flagged by Analyzer 0 % (0-5); Neutrophil # 3.56 X10^3/uL (2.7-7.7); Neutrophil % 59.9 % (47-70); Platelet Count 260 K/mm3 (150-450); RBC Distribution Width CV 12.3 % (11.6-14.6); RBC Distribution Width SD 44.4 fl (35.1-43.9); Red Blood Count 3.62 M/mm3 (4.2-5.4); White Blood Count 5.9 K/mm3 (4.4-11.0)
[2023-11-25 08:26] LABS: ALB/GLOB Ratio 1.1 RATIO (0.9-2.4); AST(SGOT) 16 U/L (15-37); Alanine Aminotransfer ALT/SGPT 19 U/L (13-56); Albumin, Serum 3.4 g/dL (3.2-5.0); Alkaline Phosphatase 105 U/L (45-117); Anion Gap 4 (5-15); BUN 13 mg/dL (7-18); BUN/Creat Ratio 14.1 RATIO (10-20); Calcium,Total 8.7 mg/dL (8.5-10.1); Chloride 113 mmol/L (98-107); Creatinine, Serum 0.92 mg/dL (0.55-1.02); EST Glomerular Filtration Rate 63 mL/min (>60); Est Glom Filt Rate - Afr Amer 76 mL/min (>60); Globulin 3.2 g/dL (2.2-4.2); Glucose 119 mg/dL (74-106); Potassium 4.3 mmol/L (3.5-5.1); Protein, Total 6.6 g/dL (6.4-8.2); Sodium Level 143 mmol/L (136-145)
== END ==
LOC: OLS.WHLEAS 05:00
PROVIDERS: PCP Internal Medicine; Visit Provider Internal Medicine
DX: G89.29 Other chronic pain (principal); I10 Essential (primary) hypertension; E03.9 Hypothyroidism, unspecified
CPT/HCPCS: 36415; 80053; 85025

== ENCOUNTER → 2023-12-28 05:00 | Outpatient (REF) | payer MEDICARE, MEDICAID, SELFPAY ==
[2023-12-28 08:50] LABS: Hemoglobin A1c 6.4 % (3.8-5.6)
== END ==
LOC: OLS.WHLEAS 05:00
PROVIDERS: PCP Internal Medicine; Visit Provider Internal Medicine
DX: E11.9 Type 2 diabetes mellitus without complications (principal)
CPT/HCPCS: 36415; 83036

== ENCOUNTER → 2023-12-30 05:00 | Outpatient (REF) | payer MEDICARE, MEDICAID, SELFPAY ==
[2023-12-30 07:19] LABS: Absolute Lymphocyte Count 1.29 X10^3/uL (0.83-4.51); Absolute Neutrophil Count 2.2 X10^3/uL (2.0-7.7); Basophil# 0.03 X10^3/uL; Basophil% 0.7 % (0-1); Eosinophil# 0.16 X10^3/uL; Eosinophils% 3.9 % (0-5); Hematocrit 35.8 % (37-47); Hemoglobin 11.6 g/dL (12.0-15.0); Lymphocyte # 1.29 X10^3/ul (0.83-4.51); Lymphocyte % 31.1 % (19-41); Mean Corp Hgb Conc 32.4 g/dL (32-36); Mean Corpuscular Hgb 31.9 pg (27.0-32.0); Mean Corpuscular Volume 98.4 fL (81-99); Mean Platelet Vol. 9.7 fl (6.2-12.0); Monocyte# 0.43 X10^3/uL; Monocyte% 10.4 % (0-10); NRBC Flagged by Analyzer 0 % (0-5); Neutrophil # 2.23 X10^3/uL (2.7-7.7); Neutrophil % 53.7 % (47-70); Platelet Count 254 K/mm3 (150-450); RBC Distribution Width CV 12.8 % (11.6-14.6); RBC Distribution Width SD 45.9 fl (35.1-43.9); Red Blood Count 3.64 M/mm3 (4.2-5.4); White Blood Count 4.2 K/mm3 (4.4-11.0)
[2023-12-30 10:09] LABS: AST(SGOT) 19 U/L (15-37); Alanine Aminotransfer ALT/SGPT 20 U/L (13-56); Albumin, Serum 3.2 g/dL (3.2-5.0); Alkaline Phosphatase 104 U/L (45-117); Anion Gap 5 (5-15); BUN 9 mg/dL (7-18); BUN/Creat Ratio 10.8 RATIO (10-20); Calcium,Total 8.6 mg/dL (8.5-10.1); Chloride 111 mmol/L (98-107); Creatinine, Serum 0.83 mg/dL (0.55-1.02); EST Glomerular Filtration Rate 71 mL/min (>60); Est Glom Filt Rate - Afr Amer 86 mL/min (>60); Globulin 3.1 g/dL (2.2-4.2); Glucose 122 mg/dL (74-106); Potassium 3.8 mmol/L (3.5-5.1); Protein, Total 6.3 g/dL (6.4-8.2); Sodium Level 142 mmol/L (136-145)
== END ==
LOC: OLS.WHLEAS 05:00
PROVIDERS: PCP Internal Medicine; Visit Provider Internal Medicine
DX: G89.29 Other chronic pain (principal); I10 Essential (primary) hypertension
CPT/HCPCS: 36415; 80053; 85025

== ENCOUNTER → 2024-01-06 05:00 | Outpatient (REF) | payer MEDICARE, MEDICAID, SELFPAY ==
[2024-01-06 15:09] LABS: Vitamin B12 203 pg/mL (211-911)
== END ==
LOC: OLS.WHLEAS 05:00
PROVIDERS: PCP Internal Medicine; Visit Provider Internal Medicine
DX: E53.9 Vitamin B deficiency, unspecified (principal); J98.2 Interstitial emphysema; J44.9 Chronic obstructive pulmonary disease, unspecified; K70.30 Alcoholic cirrhosis of liver without ascites; E03.9 Hypothyroidism, unspecified; G89.29 Other chronic pain
CPT/HCPCS: 36415; 82607

== ENCOUNTER → 2024-01-27 | Outpatient (REF) | payer MEDICARE, MEDICAID, SELFPAY ==
[2024-01-27 08:04] LABS: Absolute Lymphocyte Count 1.34 X10^3/uL (0.83-4.51); Absolute Neutrophil Count 3.1 X10^3/uL (2.0-7.7); Basophil# 0.05 X10^3/uL; Eosinophil# 0.16 X10^3/uL; Eosinophils% 3.2 % (0-5); Hematocrit 36.8 % (37-47); Hemoglobin 11.8 g/dL (12.0-15.0); Lymphocyte # 1.34 X10^3/ul (0.83-4.51); Lymphocyte % 26.4 % (19-41); Mean Corp Hgb Conc 32.1 g/dL (32-36); Mean Corpuscular Hgb 31.8 pg (27.0-32.0); Mean Corpuscular Volume 99.2 fL (81-99); Mean Platelet Vol. 10.2 fl (6.2-12.0); Monocyte# 0.41 X10^3/uL; Monocyte% 8.1 % (0-10); NRBC Flagged by Analyzer 0 % (0-5); Neutrophil % 61.1 % (47-70); Platelet Count 267 K/mm3 (150-450); RBC Distribution Width CV 12.7 % (11.6-14.6); RBC Distribution Width SD 45.9 fl (35.1-43.9); Red Blood Count 3.71 M/mm3 (4.2-5.4); White Blood Count 5.1 K/mm3 (4.4-11.0)
[2024-01-27 08:11] LABS: Anion Gap 5 (5-15); BUN 12 mg/dL (7-18); BUN/Creat Ratio 15.9 RATIO (10-20); Calcium,Total 8.6 mg/dL (8.5-10.1); Chloride 111 mmol/L (98-107); Creatinine, Serum 0.76 mg/dL (0.55-1.02); EST Glomerular Filtration Rate 79 mL/min (>60); Est Glom Filt Rate - Afr Amer 95 mL/min (>60); Glucose 127 mg/dL (74-106); Potassium 3.7 mmol/L (3.5-5.1); Sodium Level 142 mmol/L (136-145)
== END ==
LOC: OLS.WHLEAS 05:00
PROVIDERS: PCP Internal Medicine; Visit Provider Internal Medicine
DX: I10 Essential (primary) hypertension (principal); G89.29 Other chronic pain
CPT/HCPCS: 36415; 80048; 85025

== ENCOUNTER → 2024-02-24 | Outpatient (REF) | payer MEDICARE, MEDICAID, SELFPAY ==
[2024-02-24 08:35] LABS: Absolute Neutrophil Count 2.5 X10^3/uL (2.0-7.7); Basophil# 0.05 X10^3/uL; Basophil% 1.1 % (0-1); Eosinophil# 0.13 X10^3/uL; Eosinophils% 2.8 % (0-5); Hematocrit 38.6 % (37-47); Hemoglobin 12.3 g/dL (12.0-15.0); Lymphocyte % 32.7 % (19-41); Mean Corp Hgb Conc 31.9 g/dL (32-36); Mean Corpuscular Hgb 31.4 pg (27.0-32.0); Mean Corpuscular Volume 98.5 fL (81-99); Mean Platelet Vol. 9.8 fl (6.2-12.0); Monocyte# 0.43 X10^3/uL; Monocyte% 9.4 % (0-10); NRBC Flagged by Analyzer 0 % (0-5); Neutrophil # 2.47 X10^3/uL (2.7-7.7); Neutrophil % 53.8 % (47-70); Platelet Count 285 K/mm3 (150-450); RBC Distribution Width CV 12.8 % (11.6-14.6); RBC Distribution Width SD 45.8 fl (35.1-43.9); Red Blood Count 3.92 M/mm3 (4.2-5.4); White Blood Count 4.6 K/mm3 (4.4-11.0)
[2024-02-24 09:10] LABS: AST(SGOT) 17 U/L (15-37); Alanine Aminotransfer ALT/SGPT 21 U/L (13-56); Albumin, Serum 3.5 g/dL (3.2-5.0); Alkaline Phosphatase 129 U/L (45-117); Anion Gap 8 (5-15); BUN 10 mg/dL (7-18); BUN/Creat Ratio 11.7 RATIO (10-20); Chloride 110 mmol/L (98-107); Creatinine, Serum 0.86 mg/dL (0.55-1.02); EST Glomerular Filtration Rate 68 mL/min (>60); Est Glom Filt Rate - Afr Amer 83 mL/min (>60); Globulin 3.5 g/dL (2.2-4.2); Glucose 105 mg/dL (74-106); Potassium 3.5 mmol/L (3.5-5.1); Sodium Level 144 mmol/L (136-145)
== END ==
LOC: OLS.WHLEAS 05:00
PROVIDERS: PCP Internal Medicine; Visit Provider Internal Medicine
DX: I10 Essential (primary) hypertension (principal); G89.29 Other chronic pain
CPT/HCPCS: 36415; 80053; 84443; 85025

== ENCOUNTER → 2024-03-21 | Outpatient (REF) | payer MEDICARE, MEDICAID, SELFPAY ==
[2024-03-21 08:15] LABS: Hemoglobin A1c 6.2 % (3.8-5.6)
== END ==
LOC: OLS.WHLEAS 05:00
PROVIDERS: PCP Internal Medicine; Visit Provider Internal Medicine
DX: E11.9 Type 2 diabetes mellitus without complications (principal)
CPT/HCPCS: 36415; 83036

== ENCOUNTER → 2024-03-30 | Outpatient (REF) | payer MEDICARE, MEDICAID, SELFPAY ==
[2024-03-30 07:41] LABS: Absolute Lymphocyte Count 1.63 X10^3/uL (0.83-4.51); Basophil# 0.05 X10^3/uL; Basophil% 0.9 % (0-1); Eosinophil# 0.15 X10^3/uL; Eosinophils% 2.8 % (0-5); Hematocrit 37.1 % (37-47); Hemoglobin 12.1 g/dL (12.0-15.0); Lymphocyte # 1.63 X10^3/ul (0.83-4.51); Lymphocyte % 30.2 % (19-41); Mean Corp Hgb Conc 32.6 g/dL (32-36); Mean Corpuscular Volume 98.1 fL (81-99); Mean Platelet Vol. 9.8 fl (6.2-12.0); Monocyte# 0.56 X10^3/uL; Monocyte% 10.4 % (0-10); NRBC Flagged by Analyzer 0 % (0-5); Neutrophil # 2.99 X10^3/uL (2.7-7.7); Neutrophil % 55.3 % (47-70); Platelet Count 241 K/mm3 (150-450); RBC Distribution Width CV 12.8 % (11.6-14.6); Red Blood Count 3.78 M/mm3 (4.2-5.4); White Blood Count 5.4 K/mm3 (4.4-11.0)
[2024-03-30 07:55] LABS: ALB/GLOB Ratio 1.1 RATIO (0.9-2.4); AST(SGOT) 14 U/L (15-37); Alanine Aminotransfer ALT/SGPT 15 U/L (13-56); Albumin, Serum 3.5 g/dL (3.2-5.0); Alkaline Phosphatase 114 U/L (45-117); Anion Gap 6 (5-15); BUN 12 mg/dL (7-18); BUN/Creat Ratio 15.5 RATIO (10-20); Calcium,Total 8.5 mg/dL (8.5-10.1); Chloride 112 mmol/L (98-107); Creatinine, Serum 0.77 mg/dL (0.55-1.02); EST Glomerular Filtration Rate 77 mL/min (>60); Est Glom Filt Rate - Afr Amer 93 mL/min (>60); Globulin 3.1 g/dL (2.2-4.2); Glucose 119 mg/dL (74-106); Potassium 3.7 mmol/L (3.5-5.1); Protein, Total 6.6 g/dL (6.4-8.2); Sodium Level 144 mmol/L (136-145)
== END ==
LOC: OLS.WHLEAS 05:00
PROVIDERS: PCP Internal Medicine; Visit Provider Internal Medicine
DX: G89.29 Other chronic pain (principal); E03.9 Hypothyroidism, unspecified
CPT/HCPCS: 36415; 80053; 85025

== ENCOUNTER → 2024-04-27 05:00 | Outpatient (REF) | payer MEDICARE, MEDICAID, SELFPAY ==
[2024-04-27 09:24] LABS: Vitamin D,25 Hydroxy 22.5 ng/mL
[2024-04-27 09:33] LABS: Absolute Lymphocyte Count 1.58 X10^3/uL (0.83-4.51); Absolute Neutrophil Count 2.3 X10^3/uL (2.0-7.7); Basophil# 0.04 X10^3/uL; Basophil% 0.9 % (0-1); Eosinophil# 0.13 X10^3/uL; Eosinophils% 2.9 % (0-5); Hematocrit 37.6 % (37-47); Hemoglobin 12.1 g/dL (12.0-15.0); Lymphocyte # 1.58 X10^3/ul (0.83-4.51); Mean Corp Hgb Conc 32.2 g/dL (32-36); Mean Corpuscular Hgb 31.6 pg (27.0-32.0); Mean Corpuscular Volume 98.2 fL (81-99); Mean Platelet Vol. 9.8 fl (6.2-12.0); Monocyte# 0.46 X10^3/uL; Monocyte% 10.2 % (0-10); NRBC Flagged by Analyzer 0 % (0-5); Neutrophil # 2.29 X10^3/uL (2.7-7.7); Neutrophil % 50.8 % (47-70); Platelet Count 240 K/mm3 (150-450); RBC Distribution Width CV 12.5 % (11.6-14.6); Red Blood Count 3.83 M/mm3 (4.2-5.4); White Blood Count 4.5 K/mm3 (4.4-11.0)
[2024-04-27 09:44] LABS: AST(SGOT) 18 U/L (15-37); Alanine Aminotransfer ALT/SGPT 18 U/L (13-56); Albumin, Serum 3.2 g/dL (3.2-5.0); Alkaline Phosphatase 108 U/L (45-117); Anion Gap 4 (5-15); BUN 12 mg/dL (7-18); BUN/Creat Ratio 14.4 RATIO (10-20); Calcium,Total 8.4 mg/dL (8.5-10.1); Chloride 110 mmol/L (98-107); Creatinine, Serum 0.83 mg/dL (0.55-1.02); EST Glomerular Filtration Rate 71 mL/min (>60); Est Glom Filt Rate - Afr Amer 85 mL/min (>60); Globulin 3.2 g/dL (2.2-4.2); Glucose 107 mg/dL (74-106); Potassium 3.7 mmol/L (3.5-5.1); Protein, Total 6.4 g/dL (6.4-8.2); Sodium Level 141 mmol/L (136-145)
== END ==
LOC: OLS.WHLEAS 05:00
PROVIDERS: PCP Internal Medicine; Visit Provider Internal Medicine
DX: G89.29 Other chronic pain (principal); E55.9 Vitamin D deficiency, unspecified
CPT/HCPCS: 36415; 80053; 82306; 85025

== ENCOUNTER → 2024-06-01 04:00 | Outpatient (REF) | payer MEDICARE, MEDICAID, SELFPAY ==
[2024-06-01 08:51] LABS: Vitamin B12 475 pg/mL (211-911)
== END ==
LOC: OLS.WHLEAS 04:00
PROVIDERS: PCP Internal Medicine; Referring Provider Internal Medicine; Visit Provider Internal Medicine
DX: J98.2 Interstitial emphysema (principal); J44.9 Chronic obstructive pulmonary disease, unspecified; I10 Essential (primary) hypertension; K70.30 Alcoholic cirrhosis of liver without ascites; E03.9 Hypothyroidism, unspecified; G89.29 Other chronic pain; E53.9 Vitamin B deficiency, unspecified
CPT/HCPCS: 36415; 82607

== ENCOUNTER → 2024-06-07 05:00 | Outpatient (REF) | payer MEDICARE, MEDICAID, SELFPAY ==
[2024-06-07 08:19] LABS: Hemoglobin A1c 6.4 % (3.8-5.6)
== END ==
LOC: OLS.WHLEAS 05:00
PROVIDERS: PCP Internal Medicine; Visit Provider Internal Medicine
DX: J98.2 Interstitial emphysema (principal); J44.9 Chronic obstructive pulmonary disease, unspecified; I10 Essential (primary) hypertension; K70.30 Alcoholic cirrhosis of liver without ascites; E03.9 Hypothyroidism, unspecified; G89.29 Other chronic pain; E11.9 Type 2 diabetes mellitus without complications
CPT/HCPCS: 36415; 83036

== ENCOUNTER → 2024-06-29 | Outpatient (REF) | payer MEDICARE, MEDICAID, SELFPAY ==
[2024-06-29 08:20] LABS: Cholesterol 105 mg/dL (<=200); High Density Lipoprotein 39 mg/dL; Low Density Lipoprotein Calc. 34 mg/dL; Triglycerides 157 mg/dL; Very Low Density Lipoprotein 31 mg/dL (5-40); cholesterol:hdl ratio screen 2.68
== END ==
LOC: OLS.WHLEAS 05:00
PROVIDERS: PCP Internal Medicine; Visit Provider Nurse Practitioner Adult Health
DX: I10 Essential (primary) hypertension (principal)
CPT/HCPCS: 36415; 80061

== ENCOUNTER → 2024-07-31 | Outpatient (CLI) | payer MEDICARE, MEDICAID, SELFPAY ==
--- NOTE | 2024-07-31 11:00 | ART_ITS ---
Reason For Study Reason For Study: PVD Procedure A bilateral lower extremity continuous wave Doppler with analog waveform analysis,segmental pressures,and ankle brachial indexes without exercise. Left Segmental Pressures Left brachial= 142mmHg. Left calf = 142mmHg. Left posterior tibial artery = 125mmHg. Left dorsalis pedis artery = 132mmHg. Left digit = 83 mmHg. The left dorsalis pedis waveforms are biphasic. The left posterior tibial artery waveforms are triphasic. Right Segmental Pressures Right brachial= 142mmHg. Right high thigh = 181mmHg. Right low thigh = 103mmHg. Right calf = 90mmHg. Right posterior tibial artery = 80mmHg. Right dorsalis pedis artery = 80mmHg. Right digit = 57 mmHg. The right dorsalis pedis waveforms are monophasic. The right posterior tibial artery waveforms are monophasic. Indices The right ankle brachial index by the dorsalis pedis is 0.56. The right ankle brachial index by the posterior tibial artery is 0.56. The right digital-brachial index is 0.40. The left ankle brachial index by the dorsalis pedis is 0.93. The left ankle brachial index by the posterior tibial artery is 0.88. The left digital-brachial index is 0.58. VL/Lower Ext Art Exam w/o Exercis Interpretation Summary Right FAISAL 0.56, moderate arterial insufficiency. Doppler/PVR waveforms and segm ental pressures reveal proximal SFA disease. Left FAISAL 0.93, mild arterial insufficiency. Doppler/PVR waveforms of the left l eg normal at rest. Ordering Physician: Lacy Barbour Referring Physician: Viviana Mcgee Performed By: GARRETT NANCE RVT
== END | disposition home or self-care (01) ==
LOC: CVS 10:59
PROVIDERS: PCP Internal Medicine; Referring Provider Physician Assistant; Visit Provider Physician Assistant
DX: I73.9 Peripheral vascular disease, unspecified (principal)
CPT/HCPCS: 93923

== ENCOUNTER → 2024-08-24 | Outpatient (REF) | payer MEDICARE, MEDICAID, SELFPAY ==
[2024-08-24 08:56] LABS: Vitamin B12 885 pg/mL (180-914)
== END ==
LOC: OLS.WHLTSB 05:00
PROVIDERS: PCP Internal Medicine; Visit Provider Internal Medicine
DX: E03.9 Hypothyroidism, unspecified (principal); J98.2 Interstitial emphysema; J44.9 Chronic obstructive pulmonary disease, unspecified; I10 Essential (primary) hypertension; G89.29 Other chronic pain
CPT/HCPCS: 36415; 82607; 84443

== ENCOUNTER → 2024-11-23 05:00 | Outpatient (REF) | payer MEDICARE, MEDICAID, SELFPAY ==
--- OUTSIDE RECORDS SUMMARY | 2024-11-23 04:20 | XMS RPT_ITS | CCD ---
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 Michael Cox Primary Care Provider Dr. Roc Timmons Attending Provider Dr. Roc Timmons Referring Provider Dr. Michael Cox Referring Provider Michael Cox MD Primary Care Provider Michael Cox MD Primary Care Provider [phone] Michael Cox Primary Care Unavailable Marcus Murry Referring Unavailable Johnny Berrios Attending Unavailable Dr. Michael Cox Primary Care Provider RAYNE Dohetry NP Attending Provider MICHAEL Bergeron Attending MICHAEL Parra Primary Care Unavailable Michael Cox MD Primary Care Provider Dr. Michael Cox Primary Care Provider Dr. Viviana Mcgee Attending Provider [phone] RAYNE Doherty Attending Provider Dr. Michael Cox Primary Care Provider RAYNE Doherty NP Attending Provider Unav Dr. Viviana Perez Attending Provider RAYNE Emmanuel Attending Provider Unavailable Primary Care Provider Dr. Michael Sosa Primary Care Provider Dr. Viviana Mcgee Attending Provider RAYNE Doherty NP Attending Provider Dr. Michael Bergeron Primary Care Provider Dr. Viviana Mcgee Attending Provider [phone] Dr. Zachary Cruz Attending Provider [phone] [place] [employer] SUPERVISOR, [employer] SHE[employer] SUPERVISOR-C Matilda Referring Provider Dr. Michael Bergeron Referring Provider Dr. Michale Cox Primary Care Provider [place] [employer] SUPERVISOR, M[employer] SHEETS SUPERVISOR-C Matilda Attending Provider Dr. Zachary San Attending Provider [phone] [place] [employer] SHEETS SUPERVISOR, M[employer] SHEETS SUPERVISOR-C Matilda Referring Provider Dr. Viviana Gaines Attending Provider [phone] Dr. Michael Cox Referring Provider Dr. Viviana Mcgee Primary Care Provider [phone] Dr. Michael Cox Primary Care Provider [place] [employer] SUPERVISOR, M[employer] SHE[employer] SUPERVISOR-C Matilda Attending Provider Dr. Michael Bergeron Primary Care Provider Dr. Zachary Cruz Attending Provider [phone] [place] [employer] SHEETS SUPERVISOR, M[employer] SHEETS SUPERVISOR-C Matilda Attending Provider Dr. Viviana Mcgee Attending Provider [phone] Dr. Viviana Mcgee Referring Provider [phone] Dr. Viviana Mcgee Primary Care Provider [phone] [place] [employer] SHE[employer] SUPERVISOR, M[employer] SHEETS SUPERVISOR-C Matilda Attending Provider Dr. Zachary Cruz Attending Provider [phone] Dr. Viviana Mcgee Primary Care Provider [phone] [place] [employer] SHEETS SUPERVISOR, M[employer] SHEETS SUPERVISOR-C Matilda Attending Provider Dr. Viviana Mcgee Referring Provider [phone] Dr. Zachary Cruz Attending Provider [phone] Dr. Viviana Mcgee Attending Provider [phone] Dr. Viviana Mcgee Primary Care Provider [phone] Bessy [employer]ETS SUPERVISOR, M[employer] SHEETS SUPERVISOR-C Matilda Attending Provider Newton [employer] SHE[employer] SUPERVISOR-C Lesvia Attending Provider [phone] LAURA Perdomo Attending Provider [phone] Everardo STANLEY, Dr. Michelle Primary Care Provider Viviana Mcgee MD Attending Provider Shahid Doherty [employer] SUPERVISOR-CMatilda Attending Provider Everardo STANLEY, Dr. Michelle Attending Provider [phone] Viviana Mcgee MD Referring Provider Cr Delatorre Attending Provider Everardo STANLEY, Dr. Michelle Referring Provider [phone] Lacy Mcmanus Attending Provider [phone] Bessy [employer] SUPERVISOR-CMatilda Attending Provider [phone] Everardo STANLEY, Dr. Michelle Primary Care Provider Viviana Mcgee MD Attending Provider Shahid Doherty [employer] SUPERVISOR-CMatilda Attending Provider Lacy Mcmanus Referring Provider [phone] Nancy STANLEY, Dr. Sharma Attending Provider [phone] Dr. Viviana Mcgee MD Primary Care Provider Viviana Mcgee MD Attending Provider Unavailchayo Mcgee MD, Dr. Michelle Primary Care Provider Everardo STANLEY, Dr. Michelle Attending Provider [phone] Bessy [employer] SUPERVISOR-CMatilda Attending Provider Everardo STANLEY, Dr. Michelle Primary Care Provider Lacy Mcmanus Attending Provider [phone] Viviana Mcgee MD Attending Provider Shahid Mcgee MD, Dr. Efewongbe Attending Provider Oleghe, Efewongbe Attending Unavailable Oleghe, Efewongbe Primary Care Unavailable Matilda Doherty NP Attending Unavailable Oleghe, Efewongbe Primary Care Unavailable Oleghe, Efewongbe Primary Care Unavailable [place] [employer] SUPERVISORMatilda Attending Unavailable Oleghe, Efewongbe Primary Care Unavailable Lesvia Glez Attending Unavailable Oleghe OLS, Efewongbe Attending Unavailabl e Oleghe, Efewongbe Primary Care Unavailable Oleghe, Efewongbe Primary Care Unavailable Oleghe OLS, Efewongbe Attending Unavailabl e Oleghe, Efewongbe Primary Care Unavailable Barbour, Lacy Referring Unavailable Barbour, Lacy Attending Unavailable Oleghe OLS, Efewongbe Attending Unavailabl e Oleghe, Efewongbe Primary Care Unavailable Oleghe, Efewongbe Referring Unavailable Oleghe, Efewongbe Primary Care Unavailable Barbour, Lacy Attending Unavailable Oleghe, Efewongbe Attending Unavailable Oleghe, Efewongbe Primary Care Unavailable Zachary Cruz Attending Unavailable Oleghe, Efewongbe Primary Care Unavailable Barbour, Lacy Referring Unavailable Oleghe, Efewongbe Primary Care Unavailable Oleghe OLS, Efewongbe Attending Unavailabl e Oleghe, Efewongbe Primary Care Unavailable Oleghe OLS, Efewongbe Attending Unavailabl e Oleghe OLS, Efewongbe Attending Unavailabl e Oleghe, Efewongbe Primary Care Unavailable Oleghe, Efewongbe Primary Care Unavailable Oleghe OLS, Efewongbe Attending Unavailabl e [place] Matilda ABBOTT Attending Unavailable Oleghe, Efewongbe Primary Care Unavailable Oleghe OLS, Efewongbe Referring Unavailabl e Oleghe, Efewongbe Primary Care Unavailable Oleghe OLS, Efewongbe Attending Unavailabl e Oleghe OLS, Efewongbe Attending Unavailabl e Oleghe, Efewongbe Primary Care Unavailable Oleghe OLS, Efewongbe Attending Unavailabl e Oleghe, Efewongbe Primary Care Unavailable Oleghe, Efewongbe Primary Care Unavailable Cr Perdomo Attending Unavailable Oleghe OLS, Efewongbe Attending Unavailabl e Oleghe, Efewongbe Primary Care Unavailable Oleghe OLS, Efewongbe Attending Unavailabl e Oleluize, Efewongbe Primary Care Unavailable Bessy [employer] SUPERVISOR, Matilda Attending Unavailable Oleghe, Efewongbe Primary Care Unavailable Oleghe, Efewongbe Attending Unavailable Oleghe, Efewongbe Primary Care Unavailable Oleghe, Efewongbe Primary Care Unavailable Bessy [employer]ETS SUPERVISOR, Matilda Attending Unavailable Oleghe, Efewongbe Primary Care Unavailable Oleluize, Efewongbe Attending Unavailable Oleghe, Efewongbe Primary Care Unavailable Oleluize, Efewongbe Attending Unavailable Allergies Allergy Classification Reported Allergen(s) Allergy Type Date of Onset Reaction(s) Facility (20 sources) Adhesive Tape; Translations: [adhesive tape] Propensity to adverse reactions 2 Rash [facility] (19 sources) Azithromycin; Translations: [AZITHROMYCIN] Drug Allergy 8 PT UNSURE OF REACTION [facility] Work Phone: (5 sources) Bisoprolol / hydroCHLOROthiaz guerita; Translations: [BISOPROLOL-HYDR OCHLOROTHIAZIDE] Drug Allergy 8 [facility] Work Phone: (5 sources) Latex; Translations: [LATEX] Propensity to adverse reactions 9 [facility] Work Phone: (14 sources) Bisoprolol Drug Allergy 3 PT UNSURE OF REACTION [facility] (1 source) Azithromycin Drug Allergy 5 [facility] Repository (1 source) Bisoprolol Drug Allergy 5 [facility] Repository Medications Current Medications Medication Drug Class(es) Dates Sig (Normalized) Sig (Original) albuterol 0.833 mg/ml / ipratropium bromide 0.167 mg/ml inhalation solution (4 sources) Anticholinergic, beta2-Adrenergic Agonist Start: 01-07-2022 Start: 01-02-2022 End: 01-06-2022 1 ampule, Inhalation, 2 TIME S DAILY PRN, Starting on Tue01/06/22 at 0945, Until Discontinued, Shortness of Breath Initiate RT Bronchodilator Protocol: No Start: 12-28-2021 End: 01-02-2022 1 ampule, Inhalation, EVERY 4 HOURS WHILE AWAKE, First dose on 12/28/21 at 0800, Until Discontinued Initiate RT Bronchodilator Protocol: No amoxicillin 875 mg / clavula makenna 125 mg oral tablet (1 source) Penicillin-class Antibacterial Start: 01-08-2022 End: 01-07-2022 Start: 01-08-2022 End: 01-07-2022 aspirin 81 mg delayed release oral tablet (10 sources) Platelet Aggregation Inhibitor, Nonsteroidal Anti-inflammatory Drug Start: 04-29-2023 take 1 tablet by mouth once daily Aspirin (Adult Aspirin Regimen) 81 mg tablet,delayed release (DR/EC) Active 81 mg PO DAILY 24 03April 29, 2023 1:00am atorvastatin 80 mg oral tablet (10 sources) HMG-CoA Reductase Inhibitor Start: 04-29-2023 take 1 tablet by mouth at bedtime Atorvastatin 80 mg tablet Active 80 mg PO AT BEDTIME 24 03April 29, 2023 1:00am cholecalciferol 9.52 unt/ml / glucose 357 mg/ml oral gel (1 source) Vitamin D Start: 12-30-2021 15 g, Oral, PRN, Starting on Tue12/30/21 at 0944, Until Discontinued, Low blood sugar If blood glucose less than 50 mg/dL and patient ALERT and NOT NPO, give 2 tubes glucose gel. If blood glucose less than 70 mg/dL and patient ALERT and NOT NPO, give 1 tube glucose gel. Repeat blood glucose in 15 minutes. If blood glucose is less than 70 mg/dL, repeat treatment and recheck blood glucose in 15 minutes x2 and notify provider. docusate sodium 100 mg oral capsule (14 sources) Start: 01-26-2023 take 1 capsule by mouth at bedtime Docusate Sodium (Colace) 100 mg capsule Active 100 mg PO AT BEDTIME January 26, 2023 12:00am folic acid 1 mg oral tablet (3 sources) Start: 01-08-2022 Start: 01-02-2022 take 1 mg by mouth once daily 1 mg, Oral, DAILY, First dose on 01/02/22 at 0900, Until Discontinued Start: 12-27-2021 End: 12-29-2021 take 1 mg by mouth once daily 1 mg, Oral, DAILY, First dose on 12/27/21 at 1815, Until Discontinued furosemide 20 mg oral tablet (19 sources) Loop Diuretic Start: 01-26-2023 take 1 tablet by mouth once daily in the morning Furosemide (Lasix) 20 mg tablet Active 20 mg PO EVERY MORNING January 26, 2023 12:00am Start: 01-08-2022 Start: 01-06-2022 take 20 mg by mouth once daily 20 mg, Oral, DAILY, First dose on Tue01/06/22 at 1315, Until Discontinued Start: 01-01-2022 40 mg, IntraVE Nous, ONCE, 1 dose, On Tue01/05/22 at 1045 150 ml glucose 50 mg/ml injection (2 sources) Start: 12-30-2021 100 mL/hr, Int raVENous, PRN, Blood sugar less than 70mg/dL, Starting on Tue12/30/21 at 0944 Start infusion following administration of dextrose 50% or glucagon. Start: 12-30-2021 12.5 g, IntraV ENous, PRN, Starting on Tue12/30/21 at 0944, Until Discontinued, Low blood sugar, Blood glucose less than 70 mg/dL and patient NOT ALERT or NPO. If patient does not respond within 5 minutes, repeat dose x1. Start D5W at 100 mL/hour until ordering provider can be reached. Repeat blood glucose in 15 minutes. If blood glucose is less than 70 mg/dL, repeat treatment and recheck blood glucose in 15 minutes x2. lidocaine 0.04 mg/mg medicated patch (2 sources) Antiarrhythmic, Amide Local Anesthetic Start: 01-08-2022 Start: 12-27-2021 apply 1 dose transde rmal route every twelve hours 1 patch, TransDERmal, Administer over 12 Hours, DAILY, First dose on Tue12/27/21 at 1815 Apply patch to R chest. Patch may remain in place for up to 12 hours in any 24 hour period. melatonin 5 mg oral capsule (14 sources) Start: 01-26-2023 take 1 mg by mouth at bedtime Melatonin 5 mg capsule Active mg PO AT BEDTIME January 26, 2023 12:00am Start: 01-26-2023 take 1 mg by mouth at bedtime Melatonin Active MG PO AT BEDTIME January 26, 2023 12:00am meloxicam 7.5 mg oral tablet (10 sources) Nonsteroidal Anti-inflammatory Drug Start: 04-27-2023 take 1 tablet by mouth once daily Meloxicam 7.5 mg tablet Active 7.5 mg PO DAILY April 27, 2023 1:00am 24 hr nicotine 0.875 mg/hr transdermal system (2 sources) Cholinergic Nicotinic Agonist Start: 01-08-2022 Start: 01-01-2022 apply 1 dose transde rmal route once daily 1 patch, TransDERmal, Administer over 24 Hours, DAILY, First dose on Tue01/01/22 at 1345 Apply new patch to nonhairy, clean, dry skin on the upper body or upper outer arm. Rotate patch sites. Notify pharmacy if patient or provider prefers patch to be removed at bedtime and replaced in the morning. Hazardous Medication -- Refer to facility policy for handling and disposal. oxyCODONE hydrochloride 5 mg oral tablet (2 sources) Opioid Agonist Start: 01-07-2022 End: 01-12-2022 QUEtiapine 50 mg oral tablet (2 sources) Atypical Antipsychotic Start: 01-01-2022 spironolactone 25 mg oral tablet (17 sources) Aldosterone Antagonist Start: 01-26-2023 take 1 tablet by mouth twice daily Spironolactone 25 mg tablet Active 25 mg PO TWICE A DAY January 26, 2023 12:00am Start: 01-08-2022 End: 01-07-2022 Start: 01-02-2022 thiamine 100 mg oral tablet (5 sources) Start: 01-08-2022 Start: 01-02-2022 take 100 mg by mouth once daily 100 mg, Oral, DAILY, First dose on Tue01/02/22 at 0900, Until Discontinued Start: 12-28-2021 End: 12-28-2021 Doses greater than 100 mg sh ould be administered over 1-2 minutes 200 mg, IntraVENous, ONCE, 1 dose, On Tue12/28/21 at 1530 Start: 12-28-2021 End: 12-29-2021 Doses greater than 100 mg sh ould be administered over 1-2 minutes 100 mg, IntraVENous, DAILY, First dose on Tue12/28/21 at 0900, Until Discontinued Start: 12-27-2021 End: 12-28-2021 take 100 mg by mouth once daily 100 mg, Oral, DAILY, First dose on 12/27/21 at 1815, Until Discontinued Completed/Discontinued Medications Medication Drug Class(es) Dates Sig (Normalized) Sig (Original) acetaminophen 500 mg oral tablet (1 source) Start: 12-27-2021 take 1 dose by mouth three times daily 1,000 mg, Oral, EVERY 8 HOURS SCHEDULED (3 times per day), First dose on 12/27/21 at 2200, Until Discontinued Maximum dose of acetaminophen is 4000 mg from all sources in 24 hours. [id number] 200 actuat albuterol 0.09 mg/actuat metered dose inhaler (3 sources) beta2-Adrenergic Agonist Start: 11-14-2020 take 2 puff(s) by inhalation every four hours as needed for wheezing albuterol HFA (VENTOLIN HFA) 90 mcg/actuation inhaler Inhale 2 Puffs as instructed every 4 hours as needed for wheezing/shortness of breath. 0 11/14/2020 Active Comment on above: Inhale 2 Puffs as in structed every 4 hours as needed for wheezing/shortness of breath. ARIPiprazole 2 mg oral tablet (3 sources) Atypical Antipsychotic Start: 11-14-2020 take 1 tablet by mouth once daily ARIPiprazole (ABILIFY) 2 mg tablet Indications: Verbal auditory hallucination , Visual hallucinations Take 1 tablet by mouth once daily. 0 11/14/2020 Active Comment on above: Take 1 tablet by teo once daily. bisacodyl 10 mg rectal suppository (3 sources) Stimulant Laxative Start: 12-29-2021 End: 12-31-2021 take 10 mg rectal route once daily as needed 10 mg, Rectal, DAILY PRN, Starting on Carly 12/31/21 at 0830, Until Discontinued, Constipation First line therapy for constipation Start: 12-27-2021 take 5 mg by mouth once daily 5 mg, Oral, DAILY, First dose on 12/27/21 at 1815, Until Discontinued Do not crush or break. calcium chloride 0.0014 meq/ ml / potassium chloride 0.004 meq/ml / sodium chloride 0.103 meq/ml / sodium lactate 0.028 meq/ml injectable solution (3 sources) Start: 12-28-2021 End: 09-05-2022 500 mL, IntraVENous, at 247. 9 mL/hr, Administer over 121 Minutes, ONCE, On Tue12/28/21 at 1530, For 1 dose Start: 12-27-2021 End: 12-30-2021 IntraVENous, at 50 mL/hr, CO NTINUOUS, Starting on Tue12/27/21 at 1430 cholecalciferol 0.05 mg oral capsule (5 sources) Vitamin D Start: 06-27-2024 take 1 capsule by mouth once daily Cholecalciferol (Vitamin D3) 50 mcg (2,000 unit) capsule Discontinued 50 ug PO daily June 27, 2024 1:00am docusate sodium 50 mg / sennosides, longterm 8.6 mg oral tablet (1 source) Start: 12-27-2021 take 1 tablet by mouth twice daily 1 tablet, Oral, 2 TIMES DAILY, First dose on Tue12/27/21 at 2100, Until Discontinued Drug or medicament (substance) (1 source) Start: 12-29-2021 take 0.3 mg under the tongue once daily as needed 0.3 mg, SubLINGual, NIGHTLY PRN, Starting on Tue12/29/21 at 2100, Until Discontinued, Sleep 0.4 ml enoxaparin sodium 100 mg/ml prefilled syringe (1 source) Low Molecular Weight Heparin Start: 12-27-2021 inject 40 mg by subcutaneous injection once daily 40 mg, SubCUTAneous, DAILY, First dose on Tue12/27/21 at 1900, Until Discontinued Indication of Use: Prophylaxis-DVT/PE glucagon (rdna) 1 mg injection (1 source) Antihypoglycemic Agent Start: 12-30-2021 take 1 mL intravenously every hour 1 mg, IntraMUSCular, PRN, Starting on Tue12/30/21 at 0944, Until Discontinued, Low blood sugar, Blood glucose less than 70 mg/dL and patient NOT ALERT or NPO and does not have IV access. After administration, attempt intravenous access and start D5W at 100 mL/hr. Repeat blood glucose in 15 minutes x2 and notify provider. 500 ml glucose 50 mg/ml / potassium chloride 0.02 meq/ml / sodium chloride 4.5 mg/ml injection (1 source) Start: 12-30-2021 End: 01-01-2022 IntraVENous, at 50 mL/hr, CONTINUOUS, Starting on Tue12/30/21 at 1415 1 ml hydrALAZINE hydrochloride 20 mg/ml injection (1 source) Arteriolar Vasodilator Start: 01-01-2022 10 mg, IntraVENous, EVERY 4 HOURS PRN, Starting on Tue01/01/22 at 0709, Until Discontinued, High Blood Pressure, for SBP>160, hold for HR>105, second line ibuprofen 200 mg oral capsule (20 sources) Nonsteroidal Anti-inflammatory Drug Start: 08-07-2021 End: 04-27-2023 take 2 capsules by mouth every six hours as needed for pain Ibuprofen 200 mg capsule Discontinued 400 mg PO EVERY 6 HOURS as needed for Pain August 07, 2021 12:00am April 27, 2023 4:38pm Start: 08-07-2021 End: 04-27-2023 take 400 mg by mouth every six hours Ibuprofen Discontinued 400 MG PO EVERY 6 HOURS August 07, 2021 12:00am April 27, 2023 4:38pm labetalol hydrochloride 5 mg/ml injectable solution (2 sources) beta-Adrenergic Leanna Start: 01-01-2022 10 mg, IntraVENous, EVERY 4 HOURS PRN, Starting on Tue01/01/22 at 0715, Until Discontinued, High Blood Pressure, for SBP>160, hold for HR<60, first line Start: 12-28-2021 End: 01-01-2022 10 mg, IntraVENous, EVERY 6 HOURS PRN, Starting on Tue12/28/21 at 0221, Until Tue01/01/22 at 0722, High Blood Pressure, for SBP>160, hold for HR<60, first line levothyroxine sodium 0.025 mg oral tablet (20 sources) l-Thyroxine Start: 12-30-2021 take 50 ug by mouth once daily 50 mcg, Oral, DAILY, First dose on Tue12/30/21 at 1245, Until Discontinued Tube feeding (TF) interaction, obtain physician order to manage, recommend holding TF for 30 minutes before and after dose. Start: 07-11-2021 End: 03-10-2022 take 1 tablet by mouth once daily Levothyroxine 50 mcg tablet Active 50 ug PO DAILY July 11, 2021 12:00am Comment on above: Take 1 tablet by teo once daily. Take on empty stomach. For thyroid. 50 ml magnesium sulfate 40 mg/ml injection (1 source) Start: End: 2 2,000 mg, IntraVENous, at 25 mL/hr, Administer over 2 Hours, ONCE, On Carly 12/31/21 at 1200, For 1 dose Recommended infusion rate not to exceed 1,000 mg (milligrams) per hour. mirtazapine 15 mg oral tablet (17 sources) Start: 3 End: 5 take 1 tablet by mouth at bedtime Mirtazapine 15 mg tablet Discontinued 15 mg PO AT BEDTIME January 26, 2023 12:00am June 27, 2024 9:47am Start: 11-14-2020 take 1 tablet by teo th once daily at bedtime mirtazapine (REMERON) 15 mg tablet Indications: Verbal auditory hallucination , Visual hallucinations Take 1 tablet by mouth daily at bedtime. 0 11/14/2020 Active Comment on above: Take 1 tablet by teo th daily at bedtime. 1 ml morphine sulfate 4 mg/ml injection (3 sources) Opioid Agonist Start: 12-28-2021 End: 12-28-2021 1 dose, Starting on Tue12/28/21 at 1119, Until Tue12/28/21 at 2329 Kriss Rodriges: melly override Kriss Rodriges: melly override Start: 12-27-2021 End: 12-28-2021 take 1 dose by mouth once 2 mg, IntraVENous, ONCE, 1 d ose, On Tue12/28/21 at 1200 If oral and IV narcotics ordered, use oral first and only use IV if oral is ineffective or cannot take oral. Do Not give oral and IV within 1 hour of each other unless specifically ordered. omeprazole 20 mg delayed release oral capsule (5 sources) Proton Pump Inhibitor Start: 06-27-2024 take 1 capsule by mouth once daily Omeprazole 20 mg capsule,delayed release(DR/EC) Discontinued 20 mg PO daily June 27, 2024 1:00am 2 ml ondansetron 2 mg/ml injection (1 source) Serotonin-3 Receptor Antagonist Start: 12-27-2021 4 mg, IntraVENous, EVERY 6 HOURS PRN, Starting on Tue12/27/21 at 1757, Until Discontinued, Nausea, Vomiting PHENobarbital 32 mg oral tablet (4 sources) Start: 01-02-2022 End: 01-03-2022 take 16.2 mg by mouth once daily 16.2 mg, Oral, NIGHTLY, First dose on Tue01/02/22 at 2100, Until Discontinued Start: 12-31-2021 End: 01-01-2022 16.25 mg, IntraVENous, 2 PAO ES DAILY, First dose (after last modification) on Tue12/31/21 at 2100, Until Discontinued Start: 12-28-2021 End: 12-31-2021 16.25 mg, IntraVENous, EVERY 8 HOURS SCHEDULED (3 times per day), First dose (after last modification) on Tue12/29/21 at 1600, Until Discontinued piperacillin 4000 mg / tazobactam 500 mg injection (1 source) Penicillin-class Antibacterial, beta Lactamase Inhibitor Start: 12-28-2021 End: 01-04-2022 4,500 mg, IntraVENous, EVERY 6 HOURS, 28 doses, First dose (after last modification) on Tue12/28/21 at 1045, Last dose on Tue01/04/22 at 0445 Antimicrobial Indications: Intra-Abdominal Infection Day 1: 12/28/21 Original dose: pip/tazo 3.375 g every 8 hours over 4 hours Dose adjusted for initial critical care dosing for CrCl > 40 mL/min per P&T Committee, SLIM <= 24 and 32 mcg/mL polyethylene glycol 3350 79521 mg powder for oral solution (1 source) Osmotic Laxative Start: 12-30-2021 17 g, Oral, DAILY, First dose on Tue12/30/21 at 1245, Until Discontinued potassium chloride 20 meq powder for oral solution (3 sources) Start: 12-31-2021 40 mEq, Oral, 2 TIMES DAILY, First dose on Tue12/31/21 at 0900, Until Discontinued Dilute with at least 4 ounces of cold water. May further dilute if GI adverse effects occur. Start: 12-29-2021 End: 12-30-2021 For doses greater than 10 mE q, change frequency to every one hour for "x" number of doses. 10 mEq, IntraVENous, EVERY HOUR, 4 doses, First dose on Tue12/30/21 at 0800, Last dose on Tue12/30/21 at 1100, at 100 mL/hr predniSONE 20 mg oral tablet (14 sources) Start: 01-30-2023 End: 04-27-2023 take 2 tablets by mouth once daily Prednisone 20 mg tablet Discontinued 40 mg PO DAILY January 30, 2023 12:00am April 27, 2023 4:38pm Start: 01-30-2023 End: 04-27-2023 take 40 mg by mouth once daily Prednisone Discontinued 40 MG PO DAILY January 30, 2023 12:00am April 27, 2023 4:38pm SITagliptin 100 mg oral tablet (5 sources) Dipeptidyl Peptidase 4 Inhibitor Start: 06-27-2024 take 1 tablet by mouth once daily Sitagliptin Phosphate (Januvia) 100 mg tablet Discontinued 100 mg PO daily June 27, 2024 1:00am sodium chloride 30 mg/ml inhalation solution (8 sources) Start: 01-02-2022 End: 01-06-2022 4 mL, Nebulization, 2 TIMES DAILY PRN, Starting on Tue01/06/22 at 0945, Until Discontinued, Cough Start: 12-29-2021 End: 01-02-2022 4 mL, Nebulization, 3 times daily, First dose (after last modification) on Tue12/29/21 at 1500, Until Discontinued Start: 12-28-2021 take 5-40 mL intrave nously every eight hours 5-40 mL, IntraCATHeter, EVERY 8 HOURS, First dose on Tue12/28/21 at 1830, Until Discontinued For Line Patency: Peripheral IV = 5 mL; Midline or Central Line = 10 mL/lumen. If following IV push medication, administer flush at same rate as the IV push. Flush volume is determined by type of infusion therapy being given. For non-viscous solutions use: Peripheral IV = 5 mL Midline or Central Line = 10 mL/lumen For viscous solutions (i.e. blood components, parenteral nutrition, contrast media, or after obtaining blood sample) use: Peripheral IV = 10 mL Midline or Central Line = 20 mL/lumen Start: 12-28-2021 5-40 mL, Intra CATHeter, PRN, Starting on Tue12/28/21 at 1800, Until Discontinued, Line Care, before and after blood draws, infusion or medication administration For Line Patency: Peripheral IV = 5 mL; Midline or Central Line = 10 mL/lumen. If following IV push medication, administer flush at same rate as the IV push. Flush volume is determined by type of infusion therapy being given. For non-viscous solutions use: Peripheral IV = 5 mL Midline or Central Line = 10 mL/lumen For viscous solutions (i.e. blood components, parenteral nutrition, contrast media, or after obtaining blood sample) use: Peripheral IV = 10 mL Midline or Central Line = 20 mL/lumen Start: 12-27-2021 take 1 dose intraven ously twice daily 5-40 mL, IntraVENous, EVERY 12 HOURS SCHEDULED (2 times per day), First dose on 12/27/21 at 2100, Until Discontinued For Line Patency: Peripheral IV = 5 mL; Midline or Central Line = 10 mL/lumen. If following IV push medication, administer flush at same rate as the IV push. Flush volume is determined by type of infusion therapy being given. For non-viscous solutions use: Peripheral IV = 5 mL Midline or Central Line = 10 mL/lumen For viscous solutions (i.e. blood components, parenteral nutrition, contrast media, or after obtaining blood sample) use: Peripheral IV = 10 mL Midline or Central Line = 20 mL/lumen Start: 12-27-2021 IntraVENous, a t 5-250 mL/hr, PRN, if patient receiving piggyback infusions and maintenance fluids are not ordered OR KVO fluids to protect IV site / prevent frequent line interruptions/ long duration, Starting on 12/27/21 at 1757 For piggyback infusion, administer at same rate as piggyback for a total of 25 mL. Enter 25 mL into dose field and piggyback rate into rate field of order. If piggyback is infusing at a rate less than 100 mL/hr, enter 25 mL into dose field and 100 mL/hr into rate field of order. For KVO fluids, enter rate of 20 mL/hr or less into rate field of order. Start: 12-27-2021 take 5-40 mL intrave nously once as needed 5-40 mL, IntraVENous, PRN, Starting on Tue12/27/21 at 1757, Until Discontinued, Line Care, After every IV line use For Line Patency: Peripheral IV = 5 mL; Midline or Central Line = 10 mL/lumen. If following IV push medication, administer flush at same rate as the IV push. Flush volume is determined by type of infusion therapy being given. For non-viscous solutions use: Peripheral IV = 5 mL Midline or Central Line = 10 mL/lumen For viscous solutions (i.e. blood components, parenteral nutrition, contrast media, or after obtaining blood sample) use: Peripheral IV = 10 mL Midline or Central Line = 20 mL/lumen 10 actuat tiotropium 0.0025 mg/actuat inhalation spray (3 sources) Anticholinergic Start: 11-14-2020 take 2 puff(s) by inhalation once daily, then take 2 puff(s) by inhalation once daily tiotropium bromide (SPIRIVA RESPIMAT) 2.5 mcg/actuation inhaler Inhale 2 Puffs as instructed once daily. Inhale two puffs once daily. 0 11/14/2020 Active Comment on above: Inhale 2 Puffs as instructed once daily. Inhale two puffs once daily. vitamin b12 1 mg oral tablet (5 sources) Vitamin B12 Start: 06-27-2024 take 1 tablet by mouth once daily Cyanocobalamin (Vitamin B-12) 1,000 mcg tablet Discontinued 1000 ug PO daily June 27, 2024 1:00am (5 sources) Start: 12-29-2021 End: 01-01-2022 500 mg, IntraVENous, at 200 mL/hr, Administer over 30 Minutes, 3 times daily, First dose on Tue12/29/21 at 1830 Protect from light. Start: 12-29-2021 End: 01-01-2022 1 mg, IntraVENous, at 100 mL /hr, Administer over 30 Minutes, DAILY, First dose on Tue12/29/21 at 0900 Start: 12-29-2021 End: 12-29-2021 1,000 mg, IntraVENous, at 10 0 mL/hr, Administer over 60 Minutes, ONCE, On Tue12/29/21 at 0715, For 1 dose Start: 12-28-2021 End: 01-01-2022 40 mg, IntraVENous, DAILY, F irst dose on Tue12/28/21 at 0900 Reconstitute with 10 mL 0.9 % sodium chloride and administer over at least 2 minutes. Start: 12-27-2021 [Order 1 Start ] Name: oxyCODONE (ROXICODONE) immediate release tablet 5 mg Signed Summary: 5 mg, Oral, EVERY 4 HOURS PRN, Starting on Tue12/27/21 at 1757, Until Discontinued, Pain Moderate (4-6) [Order 1 End] [Order 2 Start] Name: oxyCODONE (ROXICODONE) immediate release tablet 10 mg Signed Summary: 10 mg, Oral, EVERY 4 HOURS PRN, Starting on Tue12/27/21 at 1757, Until Discontinued, Pain Severe (7-10) [Order 2 End] Problems Active Problems Problem Classification Problem Date Documented Da te Episodic/Chronic Alcohol-related disorders (20 sources) Alcohol abuse; Translations: [Alcohol abuse, uncomplicated] Onset: 12-28-2021 Chronic Blindness and vision defects (20 sources) Visual hallucinations; Translations: [Visual hallucinations] 11-10-2020 Episodic Chronic obstructive pulmonary disease and bronchiectasis (2 sources) Chronic obstructive pulmonary disease, unspecified; Translations: [Chronic obstructive pulmonary disease, unspecified] Onset: 07-03-2024 Chronic Coronary atherosclerosis and other heart disease (2 sources) Myocardial ischemia; Translations: [Other forms of acute ischemic heart disease] Onset: 12-29-2021 Resolved: 01-07-2022 Chronic Delirium, dementia, and amnestic and other cognitive disorders (20 sources) Dementia; Translations: [Unspecified dementia without behavioral disturbance] 11-10-2020 Chronic Diabetes mellitus without complication (2 sources) Type 2 diabetes mellitus without complications; Translations: [Type 2 diabetes mellitus without complications] Onset: 04-27-2024 Chronic Disorders of lipid metabolism (3 sources) Hyperlipidemia; Translations: [Hyperlipidemia, unspecified] 01-11-2008 Chronic Essential hypertension (20 sources) Essential hypertension; Translations: [Essential (primary) hypertension] Onset: 06-11-2024 02-06-2016 Chronic Fluid and electrolyte disorders (3 sources) Hypokalemia; Translations: [Hypokalemia] 01-11-2008 Episodic Malaise and fatigue (7 sources) Malaise and fatigue; Translations: [Other malaise] Onset: 12-28-2021 01-11-2008 Episodic Nutritional deficiencies (3 sources) Nutritional marasmus; Translations: [Unspecified severe protein-calorie malnutrition] Onset: 01-01-2022 Chronic Other aftercare (2 sources) Patient encounter status; Translations: [Encounter for palliative care] Onset: 12-29-2021 Resolved: 01-07-2022 Episodic Other circulatory disease (15 sources) Abnormal peripheral pulse; Translations: [Other specified symptoms and signs involving the circulatory and respiratory systems] 12-23-2022 Episodic Other connective tissue disease (14 sources) Thigh pain; Translations: [Pain in right thigh] 02-07-2023 Episodic Other fractures (20 sources) Fracture of inferior pubic ramus; Translations: [Other specified fracture of unspecified pubis, initial encounter for closed fracture] 06-27-2018 Episodic Other gastrointestinal disorders (20 sources) Disorder of intestine; Translations: [Other specified diseases of intestine] Onset: 12-27-2021 Resolved: 01-07-2022 Episodic Other gastrointestinal disorders (2 sources) Slow transit constipation; Translations: [Slow transit constipation] Onset: 01-01-2022 Resolved: 01-07-2022 Episodic Other hematologic conditions (2 sources) Protein level - finding; Translations: [Other specified abnormalities of plasma proteins] Onset: 12-30-2021 Resolved: 01-07-2022 Episodic Other liver diseases (3 sources) Cirrhosis of liver; Translations: [Unspecified cirrhosis of liver] Onset: 12-03-2008 02-17-2016 Chronic Other lower respiratory disease (2 sources) Respiratory insufficiency; Translations: [Other abnormalities of breathing] Onset: 12-29-2021 Episodic Other lower respiratory disease (2 sources) Dyspnea; Translations: [Shortness of breath] Onset: 12-29-2021 Resolved: 01-07-2022 Episodic Other lower respiratory disease (2 sources) Hypoxia; Translations: [Hypoxemia] Onset: 01-01-2022 Resolved: 01-07-2022 Episodic Other nervous system disorders (20 sources) Chronic pain syndrome; Translations: [Chronic pain syndrome] 06-27-2018 Chronic Other nervous system disorders (3 sources) Neuropathy; Translations: [Polyneuropathy, unspecified] Onset: 11-17-2017 11-17-2017 Chronic Other nervous system disorders (2 sources) Disorder of brain; Translations: [Encephalopathy, unspecified] Onset: 01-01-2022 Resolved: 01-07-2022 Chronic Other nervous system disorders (2 sources) Other chronic pain; Translations: [Other chronic pain] Onset: 06-11-2024 Chronic Other nervous system disorders (1 source) Chronic pain syndrome; Translations: [Chronic pain syndrome] Onset: 01-19-2024 Chronic Other nervous system disorders (3 sources) Skin sensation disturbance; Translations: [Unspecified disturbances of skin sensation] 01-11-2008 Episodic Other nervous system disorders (2 sources) Impaired cognition; Translations: [Other symptoms and signs involving cognitive functions and awareness] Onset: 01-01-2022 Episodic Other non-traumatic joint disorders (20 sources) Pain in right knee; Translations: [Right knee pain] 06-27-2018 Episodic Other screening for suspected conditions (not mental disorders or infectious disease) (20 sources) Raised TSH level; Translations: [Other specified abnormal findings of blood chemistry] Episodic Peripheral and visceral atherosclerosis (20 sources) Peripheral vascular disease; Translations: [Peripheral vascular disease, unspecified] Onset: 08-06-2024 Chronic Comment on above: PVR-Interpretation S ummaryRight FAISAL 0.42, severe arterial insufficiency. Doppler/PVR waveforms of the right ankle severelydiminished.Left FAISAL 0.95, mild arterial insufficiency. Doppler/PVR waveforms of the left ankle mildlydiminished. CTA- right SFA occlu myrna, no significant aortic/iliac stenosis, moderate scattered atherosclerosis on left Regional enteritis and ulcerative colitis (3 sources) Crohn's disease; Translations: [Crohn's disease, unspecified, without complications] 01-11-2008 Chronic Rehabilitation care; fitting of prostheses; and adjustment of devices (2 sources) Procedure needed; Translations: [Encounter for fitting and adjustment of non-vascular catheter] Onset: 01-06-2022 Resolved: 01-07-2022 Episodic Residual codes; unclassified (20 sources) Auditory hallucinations; Translations: [Auditory hallucinations] 11-10-2020 Episodic Residual codes; unclassified (20 sources) Tobacco user; Translations: [Tobacco use] Onset: 01-17-2014 01-17-2014 Episodic Residual codes; unclassified (1 source) Tobacco use; Translations: [Tobacco use disorder] Episodic Residual codes; unclassified (2 sources) At risk of delirium; Translations: [Other specified personal risk factors, not elsewhere classified] Onset: 12-28-2021 Episodic Thyroid disorders (20 sources) Hypothyroidism; Translations: [Hypothyroidism, unspecified] Onset: 05-29-2014 05-29-2014 Chronic Urinary tract infections (20 sources) Cystitis; Translations: [Cystitis, unspecified without hematuria] 11-10-2020 Episodic Past or Other Problems Problem Classification Problem Date Documented Da te Episodic/Chronic Complications of surgical procedures or medical care (3 sources) Expected difficult tracheal intubation; Translations: [Failed or difficult intubation, initial encounter] Onset: 07-02-2014 Episodic Deficiency and other anemia (3 sources) Anemia; Translations: [Anemia, unspecified] Onset: 02-06-2008 02-06-2008 Episodic Nutritional deficiencies (1 source) Vitamin B deficiency, unspecified; Translations: [Vitamin B deficiency, unspecified] Onset: 06-11-2024 Episodic Other gastrointestinal disorders (3 sources) Ascites; Translations: [Other ascites] Onset: 12-09-2008 12-09-2008 Episodic Pleurisy; pneumothorax; pulmonary collapse (20 sources) Mediastinal emphysema; Translations: [Interstitial emphysema] Onset: 12-29-2021 Resolved: 01-07-2022 Episodic Results Test Name Value Interpretation Reference Range Facility TSH DL <= 0.005 mIU/L QnOrde red By: Viviana Mcgee on 08-24-2024 TSH Qn 1.860 uIU/mL 0.300-4.200 [facility] Vitamin B12 ser/plasOrdered By: Viviana Mcgee on 08-24-2024 Cobalamin (Vitamin B12) [Mass/Vol] 885 pg/mL 180-914 [facility] Arterial study reportOrdered By: Zachary Cruz on 07-31-2024 Noninvasive arteriosclerosis study report [facility] [address] [place] [address] Lower Ext Art Exam w/o Exercis 07/31/24 1102 MR#: [id number] Acct: [id number] Name: JAIMIE AVENDANO Rep #:[id number] : 1945 79 From: Zachary Adams Attending Dr: LAURA Irby Stat us: REG CLI Ordering Dr: Lacy Barbour Date: Location: [facility] Sex: F C Admitted: Reason For Study Reason For Study: PVD Procedure A bilateral lower extremity continuous wave Doppler with analog waveform analysis,segmental pressures,and ankle brachial indexes without exercise. Left Segmental Pressures Left brachial= 142mmHg. Left calf = 142mmHg. Left posterior tibial artery = 125mmHg. Left dorsalis pedis artery = 132mmHg. Left digit = 83 mmHg. The left dorsalis pedis waveforms are biphasic. The left posterior tibial artery waveforms are triphasic. Right Segmental Pressures Right brachial= 142mmHg. Right high thigh = 181mmHg. Right low thigh = 103mmHg. Right calf = 90mmHg. Right posterior tibial artery = 80mmHg. Right dorsalis pedis artery = 80mmHg. Right digit = 57 mmHg. The right dorsalis pedis waveforms are monophasic. The right posterior tibial artery waveforms are monophasic. Indices The right ankle brachial index by the dorsalis pedis is 0.56. The right ankle brachial index by the posterior tibial artery is 0.56. The right digital-brachial index is 0.40. The left ankle brachial index by the dorsalis pedis is 0.93. The left ankle brachial index by the posterior tibial artery is 0.88. The left digital-brachial index is 0.58. /Lower Ext Art Exam w/o Exercis Interpretation Summary Right FAISAL 0.56, moderate arterial insufficiency. Doppler/PVR waveforms and segmental pressures reveal proximal SFA disease. Left FAISAL 0.93, mild arterial insufficiency. Doppler/PVR waveforms of the left leg normal at rest. Ordering Physician: Lacy Barbour Referring Physician: Viviana Mcgee Performed By: GARRETT NANCE RVT 07/31/24 1800 Date _ Zachary Cruz MD CC: LAURA Irby; Dr. Viviana Mcgee MD ~ Date Dictated: 07/31/24 1102 Date Transcribed: 07/31/24 1800 Mechatronics Technician: Signed [facility] Work Phone: Lower Ext Art Exam w/o Exerc do 07-31-2024 Lower Ext Art Exam w/o Exercis [facility] Cardi[facility] Services [address] [place] [address] Lower Ext Art Exam w/o Exercis 07/31/24 110 MR#: [id number] Acct: [id number] Name: JAIMIE AVENDANO Rep #: [id number] : 1945 79 From: Zachary Cruz MD Attending Dr: LAURA Irby Status: REG CLI Ordering Dr: Lacy Barbour Date: 07/31/24 Location: [facility] Sex: F C Admitted: Reason For Study Reason For Study: PVD Procedure A bilateral lower extremity continuous wave Doppler with analog waveform analysis,segmental pressures,and ankle brachial indexes without exercise. Left Segmental Pressures Left brachial= 142mmHg. Left calf = 142mmHg. Left posterior tibial artery = 125mmHg. Left dorsalis pedis artery = 132mmHg. Left digit = 83 mmHg. The left dorsalis pedis waveforms are biphasic. The left posterior tibial artery waveforms are triphasic. Right Segmental Pressures Right brachial= 142mmHg. Right high thigh = 181mmHg. Right low thigh = 103mmHg. Right calf = 90mmHg. Right posterior tibial artery = 80mmHg. Right dorsalis pedis artery = 80mmHg. Right digit = 57 mmHg. The right dorsalis pedis waveforms are monophasic. The right posterior tibial artery waveforms are monophasic. Indices The right ankle brachial index by the dorsalis pedis is 0.56. The right ankle brachial index by the posterior tibial artery is 0.56. The right digital-brachial index is 0.40. The left ankle brachial index by the dorsalis pedis is 0.93. The left ankle brachial index by the posterior tibial artery is 0.88. The left digital-brachial index is 0.58. VL/Lower Ext Art Exam w/o Exercis Interpretation Summary Right FAISAL 0.56, moderate arterial insufficiency. Doppler/PVR waveforms and segmental pressures reveal proximal SFA disease. Left FAISAL 0.93, mild arterial insufficiency. Doppler/PVR waveforms of the left leg normal at rest. Ordering Physician: Lacy Barbour Referring Physician: Viviana Mcgee Performed By: GARRETT NANCE T 07/31/24 1800 Date Zachary Cruz MD CC: LAURA Irby; Dr. Viviana Mcgee MD Date Dictated: 07/31/24 1102 Date Transcribed: 07/31/24 1800 Mechatronics Technician: Signed Normal [facility] Calculated very low density lipoprotein (VLDL) cholesterol measurementOrdered By: Matilda Doherty on 06-29-2024 Calculated very low density lipoprotein (VLDL) cholesterol measurement 31 mg/dL [facility] VLDL Cholesterol 31 mg/dL [facility] LDL calc ser/plasOrdered By: Matilda Doherty on 06-29-2024 Cholesterol in LDL [Mass/Vol] 34 mg/dL [facility] Comment on above: Odxrlvrufc=213-553 m g/dL & Higher Whcj=433 mg/dL or greater LDL Cholesterol, Calculated 34 mg/dL [facility] Comment on above: Pszvlqenpk=334-840 m g/dL & Higher Emiu=930 mg/dL or greater Screening total cholesterol/ high density lipoprotein (HDL) cholesterol ratioOrdered By: Matilda Doherty on 06-29-2024 Cholesterol.total/Vicenta sterol in HDL [Mass ratio] 2.68 {ratio} [facility] Serum or plasma cholesterol in HDL measurement (mass/volume)Ordered By: Matilda Doherty on 06-29-2024 Cholesterol in HDL [Mass/Vol] 39 mg/dL Low >40 [facility] Comment on above: National Cholesterol Education Program (NCEP) guidelines:<40 mg/dL: Low HDL-cholesterol (major risk factor for CHD)>= 60 mg/dL: High HDL-cholesterol (negative risk factor for CHD)HDL-cholesterol is affected by a number of factors, e.g. smoking, exercise, hormones, sex and age. Serum or plasma cholesterol measurement (mass/volume)Ordered By: Matilda Doherty on 06-29-2024 Cholesterol [Mass/Vol] 105 mg/dL <201 [facility] Comment on above: Cholesterol level, D esirable <200 mg/dLBorderline high cholesterol 200-239 mg/dLHigh cholesterol >=240 mg/dLRecommendations of the NCEP Adult Treatment Panel for the following risk-cutoff thresholds for the [place] population. Triglycerides measurementOrd ered By: Matilda Doherty on 06-29-2024 Triglyceride [Mass/Vol] 157 mg/dL <199 [facility] Comment on above: The drugs N-Acetylcy steine and Metamizole may falsely depress this assay. Normal range: <150 mg/dLBorderline High: 150-199 mg/dLHigh: 200-499 mg/dLVery High: >500 mg/dL Justen 06-27-2024 MARY [facility] Surgery [address] [place] [address] OFFICE VISIT Date of Service: 06/27/24 MR#: [id number] Acct: [id number] Name: JAIMIE AVENDANO Rep #: [id number] : 1945 Provider: LAURA Irby Age/Sex: 78/F Location[place] [facility] [place] Status: Signed Intake Vital Signs 02/24/23 11:52 06/27/24 08:37 Height 5 ft 3 in Weight: 148 lb BP 167/90 H Blood Pressure Location Rt brachial Position Sitting Respiration 14 Pulse 80 Pulse Source Monitor Temp 98.2 F Temp Source Temporal Pulse Oximetry (%) 98 Oxygen Delivery Method room air Intake Visit Reasons: Peripheral vascular disease Is patient in pain?: No Allergies azithromycin Allergy (Intermediate, Verified 06/27/24 08:40) PT UNSURE OF REACTION bisoprolol Allergy (Intermediate, Verified 06/27/24 08:40) PT UNSURE OF REACTION adhesive tape Adverse Reaction (Verified 06/27/24 08:40) Rash Medications ???Medication ???Instructions ???Recorded ???Confirmed ???Type levothyroxine 50 mcg tablet 50 mcg PO DAILY 07/11/21 06/27/24 History docusate sodium 100 mg capsule 100 mg PO QHS 01/26/23 06/27/24 Hi story (Colace) furosemide 20 mg tablet (Lasix) 20 mg PO QAM 01/26/23 06/27/24 His tory melatonin 5 mg capsule mg PO QHS 01/26/23 06/27/24 Histor y spironolactone 25 mg tablet 25 mg PO BID 01/26/23 06/27/24 His tory meloxicam 7.5 mg tablet 7.5 mg PO DAILY 04/27/23 06/27/24 History aspirin 81 mg tablet,delayed 81 mg PO DAILY #30 tabs 04/29/23 0 06/27/24 Rx release (Adult Aspirin Regimen) atorvastatin 80 mg tablet 80 mg PO QHS #30 tabs 04/29/2309/16 Rx cholecalciferol (vitamin D3) 50 50 mcg PO QDAY 06/27/24 06/27/24 H istory mcg (2,000 unit) capsule cyanocobalamin (vitamin B-12) 1,000 mcg PO QDAY 06/27/24 5 History 1,000 mcg tablet omeprazole 20 mg capsule,delayed 20 mg PO QDAY 06/27/24 06/27/24 Hi story release sitagliptin phosphate 100 mg 100 mg PO QDAY 06/27/24 06/27/24 H istory tablet (Januvia) Is last menstrual period known: No Post menopausal: Yes Patient : No Have you fallen in the past year?: No PFSH Medical History PAD (peripheral artery disease) Neuropathy Dementia Alcohol abuse Anxiety Depression Cirrhosis Smoker Essential hypertension Chronic pain syndrome Surgical History History of repair of right hip joint History of hysterectomy History of appendectomy History of cholecystectomy Family History (Updated 06/27/24 @ 08:37 by Marnie Smith) Other CVA (cerebral vascular accident) Cancer Diabetes Hypertension Social History Smoking Status: Former smoker Tobacco: How many years used: 40 alcohol intake: former substance use type: does not use HPI HPI HPI: JAIMIE AVENDANO, is a 78 F who presents to the office today for follow-up of her RLE PAD. Last year, she had CTA which revealed R SFA occlusion with distal reconstitution and had no associated claudication. Plan was for repeat PVRs in 1 year which have not yet been completed. She complains of bilateral nocturnal calf cramps which improve when she gets out of bed and moves around a bit and with massage. She denies any calf cramping or pain with ambulation. She denies any lower extremity wounds. She continues to have neuropathy in her bilateral feet, otherwise no rest pain. She denies any significant changes to her health over the last year. She takes ASA and statin daily without adverse effects. ROS General General: Yes weight change, fatigue and weakness; No appetite, colon cancer or breast cancer HEENT HEENT: No difficulty swallowing, eye injury, eye surgery, swollen glands or hoarseness Endo Endocrine: No thyroid disease, diabetes mellitus, thyroid cancer, Hair loss, heat intolerance or cold intolerance Skin Skin: Yes changing moles; No rash Musc Musculoskeletal: Yes arthritis and joint pain; No back problems, rheumatoid arthritis or gout Cardio Cardiovascular: Yes high blood pressure; No murmur, pacemaker, heart disease, atrial fibrillation, heart attack, heart stent, palpitations, shortness of breat with exertion or chest pain Psych Psychiatric: Yes depression and anxiety; No hearing voices Resp Respiratory: No shortness of breath, Yes sleep apnea, No cough, No COPD, No asthma, No emphysema and No wheezing Gastro Gastrointestinal: No abdominal pain, No nausea or vomiting, Yes diarrhea, No constipation, No blood in stool, No acid reflux, No hemorrhoids, No ulcers, No gallbladder problem and No black,tarry stools Jonny Hematologic: No blood thinners, No blood disorders, N (more content not included)... Normal [facility] Hemoglobin A1c percentageOrd ered By: Viviana Mcgee on 06-07-2024 HbA1c (Bld) [Mass fraction] 6.4 % High 3.8-5.6 [facility] Comment on above: Normal < 5.7 % Predi abetic 5.7 - 6.4 % Diabetic >or= 6.5 % Please note range changes. Vitamin B12 measurementOrder ed By: Viviana Mcgee on 06-01-2024 Cobalamin (Vitamin B12) [Mass/Vol] 475 pg/mL 211-911 [facility] [id number] DOrdered By: Ji Mcgee on 04-27-2024 Vitamin D 25-Hydroxy 22.5 ng/mL [facility] Comment on above: Vitamin D 25(OH) Sta tus Range Deficiency <20 ng/mL (50nmol/L) Insufficiency 20 - 30 ng/mL (50 - 75 nmol/L) Sufficiency 30 - 100 ng/mL (75 - 250 nmol/L) Toxicity >100 ng/mL (>250 nmol/L) Absolute neutrophil countOrd ered By: Viviana Mcgee on 04-27-2024 Neutrophils (Bld) [#/Vol] 2.3 10*3/uL 2.0-7.7 [facility] Albumin to globulin ratioOrd ered By: Viviana Mcgee on 04-27-2024 Albumin/Globulin [Mass ratio] 1.0 {ratio} 0.9-2.4 [facility] [facility] Basophil percentageOrdered B y: Viviana Mcgee on 04-27-2024 Basophils/100 WBC (Bld) 0.9 % 0-1 [facility] Bilirubin, totalOrdered By: Viviana Mcgee on 04-27-2024 Bilirubin [Mass/Vol] 0.40 mg/dL 0.20-1.00 [facility] Comment on above: For patients on eltr ombopag therapy, use of Dimension Mays TBIL is not recommended. Blood urea nitrogen (BUN)/cr eatinine ratioOrdered By: Viviana Mcgee on 04-27-2024 Urea nitrogen/Creatinine [Mass ratio] 14.4 mg/mg 10-20 [facility] Carbon dioxide measurementOr dered By: Viviana Mcgee on 04-27-2024 CO2 [Moles/Vol] 27.0 mmol/L 21.0-32.0 [facility] Chloride measurementOrdered By: Viviana Mcgee on 04-27-2024 Chloride [Moles/Vol] 110 mmol/L High 98-107 [facility] Eosinophil percentageOrdered By: Viviana Mcgee on 04-27-2024 Eosinophils/100 WBC (Bld) 2.9 % 0-5 [facility] Erythrocyte distribution wid th (RBC) [Ratio]Ordered By: Viviana Mcgee on 04-27-2024 Erythrocyte distribution width (RBC) [Entitic vol] 45.0 fL High 35.1-43.9 [facility] Erythrocyte distribution wid th ratioOrdered By: Viviana Mcgee on 04-27-2024 Erythrocyte distribution width (RBC) [Ratio] 12.5 % 11.6-14.6 [facility] Estimated glomerular filtrat ion rate (GFR) AmericanOrdered By: Viviana Mcgee on 04-27-2024 Estimated GFR (MDRD) Amer 85 mL/min >60 [facility] Comment on above: GFR Calc Glomerular filtration rate ( GFR) estimationOrdered By: Viviana Mcgee on 04-27-2024 Estimated GFR (MDRD) Non-Af Amer 71 mL/min >60 [facility] Comment on above: Non- GFR Calc Glucose measurementOrdered B y: Viviana Mcgee on 04-27-2024 Glucose [Mass/Vol] 107 mg/dL High 74-106 [facility] Comment on above: Fasting Glucose resu lt from 100 to 125 mg/dL suggests IMPAIRED HOMEOSTASIS per A.D.A. criteria. Hematocrit Auto (Bld) [Volum e fraction]Ordered By: Viviana Mcgee on 04-27-2024 Hematocrit (Bld) [Volume fraction] 37.6 % 37-47 [facility] Hemoglobin measurementOrdere d By: Viviana Mcgee on 04-27-2024 Hemoglobin (Bld) [Mass/Vol] 12.1 g/dL 12.0-15.0 [facility] Immature granulocytes/100 WB C Auto (Bld)Ordered By: Viviana Mcgee on 04-27-2024 Immature granulocytes/100 WBC (Bld) 0.200 % 0.0-0.9 [facility] Comment on above: IG% - Immature Granu locytes (promyelocytes, myelocytes and metamyelocytes) > 1% indicates that a LEFT SHIFT is Present. Laboratory - Chemistry and C hemistry - challengeOrdered By: Viviana Mcgee on 04-27-2024 AST [Catalytic activity/Vol] 18 U/L 15-37 [facility] Lymphocytes Auto (Unsp spec) [#/Vol]Ordered By: Viviana Mcgee on 04-27-2024 Lymphocytes (Bld) [#/Vol] 1.58 10*3/uL 0.83-4.51 [facility] Lymphocytes/100 WBC Auto (Un sp spec)Ordered By: Viviana Mcgee on 04-27-2024 Lymphocytes/100 WBC (Bld) 35.0 % 19-41 [facility] MCV (mean corpuscular volume ) determinationOrdered By: Viviana Mcgee on 04-27-2024 MCV (RBC) [Entitic vol] 98.2 fL 81-99 [facility] Mean corpuscular hemoglobin (MCH) determinationOrdered By: Viviana Mcgee on 04-27-2024 MCH (RBC) [Entitic mass] 31.6 pg 27.0-32.0 [facility] Mean corpuscular hemoglobin concentration (MCHC) determinationOrdered By: Viviana Mcgee on 04-27-2024 MCHC (RBC) [Mass/Vol] 32.2 g/dL 32-36 [facility] Mean platelet volume determi nationOrdered By: Viviana Mcgee on 04-27-2024 Platelet mean volume (Bld) [Entitic vol] 9.8 fL 6.2-12.0 [facility] Monocyte percentageOrdered B y: Viviana Mcgee on 04-27-2024 Monocytes/100 WBC (Bld) 10.2 % High 0-10 [facility] Neutrophil percentageOrdered By: Viviana Mcgee on 04-27-2024 Neutrophils/100 WBC (Bld) 50.8 % 47-70 [facility] Nucleated red blood cell per centageOrdered By: Viviana Mcgee on 04-27-2024 Nucleated RBC/100 WBC (Bld) [Ratio] 0 % 0-5 [facility] Platelet countOrdered By: Link Mcgee on 04-27-2024 Platelets (Bld) [#/Vol] 240 10*3/uL 150-450 [facility] Potassium measurementOrdered By: Viviana Mcgee on 04-27-2024 Potassium [Moles/Vol] 3.7 mmol/L 3.5-5.1 [facility] RBC Auto (Bld) [#/Vol]Ordere d By: Viviana Mcgee on 04-27-2024 RBC (Bld) [#/Vol] 3.83 10*6/uL Low 4.2-5.4 [facility] Serum anion gap measurementO rdered By: Viviana Mcgee on 04-27-2024 Anion gap [Moles/Vol] 4 mmol/L Low 5-15 [facility] Serum globulin measurementOr dered By: Viviana Mcgee on 04-27-2024 Globulin (S) [Mass/Vol] 3.2 g/dL 2.2-4.2 [facility] Serum or plasma alanine jay otransferase (ALT) measurementOrdered By: Viviana Mcgee on 04-27-2024 ALT [Catalytic activity/Vol] 18 U/L 13-56 [facility] Serum or plasma albumin fiona urement (mass/volume)Ordered By: Viviana Mcgee on 04-27-2024 Albumin [Mass/Vol] 3.2 g/dL 3.2-5.0 [facility] Serum or plasma alkaline dmitry sphatase measurementOrdered By: Viviana Walterluizji on 04-27-2024 ALP [Catalytic activity/Vol] 108 U/L 45-117 [facility] Serum or plasma calcium fiona urement (mass/volume)Ordered By: Viviana Walterluizji on 04-27-2024 Calcium [Mass/Vol] 8.4 mg/dL Low 8.5-10.1 [facility] Serum or plasma creatinine m easurement (mass/volume)Ordered By: Viviana Walterluizji on 04-27-2024 Creatinine [Mass/Vol] 0.83 mg/dL 0.55-1.02 [facility] Comment on above: The validity of the calculated GFR & GFRAA in patients over 70 years has not been determined. Clinical correlation is essential. Serum or plasma urea nitroge n measurement (mass/volume)Ordered By: Linklawsonclint Walterluizji on 04-27-2024 Urea nitrogen [Mass/Vol] 12 mg/dL 7-18 [facility] Sodium levelOrdered By: Reynaldo jaramillo Walterluizji on 04-27-2024 Sodium [Moles/Vol] 141 mmol/L 136-145 [facility] Total proteinOrdered By: Reza boothe Walterluizji on 04-27-2024 Protein [Mass/Vol] 6.4 g/dL 6.4-8.2 [facility] White blood cell (WBC) count Ordered By: Linklawsonjose apapa Watsonluizji on 04-27-2024 WBC (Bld) [#/Vol] 4.5 10*3/uL 4.4-11.0 [facility] Absolute neutrophil countOrd ered By: [facility] Watsonluizji on 03-30-2024 Neutrophils (Bld) [#/Vol] 3.0 10*3/uL 2.0-7.7 [facility] Albumin to globulin ratioOrd ered By: lawsonjose apapa Watsonluizji on 03-30-2024 Albumin/Globulin [Mass ratio] 1.1 {ratio} 0.9-2.4 [facility] Basophil percentageOrdered B y: Viviana Walterluizji on 03-30-2024 Basophils/100 WBC (Bld) 0.9 % 0-1 [facility] Bilirubin, totalOrdered By: Viviana Mcgee on 03-30-2024 Bilirubin [Mass/Vol] 0.40 mg/dL 0.20-1.00 [facility] Comment on above: For patients on eltr ombopag therapy, use of Dimension [place] TBIL is not recommended. Blood urea nitrogen (BUN)/cr eatinine ratioOrdered By: Viviana Mcgee on 03-30-2024 Urea nitrogen/Creatinine [Mass ratio] 15.5 mg/mg 10-20 [facility] Carbon dioxide measurementOr dered By: Viviana Mcgee on 03-30-2024 CO2 [Moles/Vol] 27.0 mmol/L 21.0-32.0 [facility] Chloride measurementOrdered By: Viviana Mcgee on 03-30-2024 Chloride [Moles/Vol] 112 mmol/L High 98-107 [facility] Eosinophil percentageOrdered By: Viviana Mcgee on 03-30-2024 Eosinophils/100 WBC (Bld) 2.8 % 0-5 [facility] Erythrocyte distribution wid th (RBC) [Ratio]Ordered By: Viviana Mcgee on 03-30-2024 Erythrocyte distribution width (RBC) [Entitic vol] 46.0 fL High 35.1-43.9 [facility] Erythrocyte distribution wid th ratioOrdered By: Viviana Mcgee on 03-30-2024 Erythrocyte distribution width (RBC) [Ratio] 12.8 % 11.6-14.6 [facility] Estimated glomerular filtrat ion rate (GFR) AmericanOrdered By: Viviana Mcgee on 03-30-2024 Estimated GFR (MDRD) Amer 93 mL/min >60 [facility] Comment on above: GFR Calc Glomerular filtration rate ( GFR) estimationOrdered By: Viviana Mcgee on 03-30-2024 Estimated GFR (MDRD) Non-Af Amer 77 mL/min >60 [facility] Comment on above: Non- GFR Calc Glucose measurementOrdered B y: Viviana Mcgee on 03-30-2024 Glucose [Mass/Vol] 119 mg/dL High 74-106 [facility] Comment on above: Fasting Glucose resu lt from 100 to 125 mg/dL suggests IMPAIRED HOMEOSTASIS per A.D.A. criteria. Hematocrit Auto (Bld) [Volum e fraction]Ordered By: Viviana Mcgee on 03-30-2024 Hematocrit (Bld) [Volume fraction] 37.1 % 37-47 [facility] Hemoglobin measurementOrdere d By: Viviana Mcgee on 03-30-2024 Hemoglobin (Bld) [Mass/Vol] 12.1 g/dL 12.0-15.0 [facility] Immature granulocytes/100 WB C Auto (Bld)Ordered By: Viviana Mcgee on 03-30-2024 Immature granulocytes/100 WBC (Bld) 0.400 % 0.0-0.9 [facility] Comment on above: IG% - Immature Granu locytes (promyelocytes, myelocytes and metamyelocytes) > 1% indicates that a LEFT SHIFT is Present. Laboratory - Chemistry and C hemistry - challengeOrdered By: Viviana Mcgee on 03-30-2024 AST [Catalytic activity/Vol] 14 U/L Low 15-37 [facility] Lymphocytes Auto (Unsp spec) [#/Vol]Ordered By: Viviana Mcgee on 03-30-2024 Lymphocytes (Bld) [#/Vol] 1.63 10*3/uL 0.83-4.51 [facility] Lymphocytes/100 WBC Auto (Un sp spec)Ordered By: Viviana Mcgee on 03-30-2024 Lymphocytes/100 WBC (Bld) 30.2 % 19-41 [facility] MCV (mean corpuscular volume ) determinationOrdered By: Viviana Mcgee on 03-30-2024 MCV (RBC) [Entitic vol] 98.1 fL 81-99 [facility] Mean corpuscular hemoglobin (MCH) determinationOrdered By: Viviana Mcgee on 03-30-2024 MCH (RBC) [Entitic mass] 32.0 pg 27.0-32.0 [facility] Mean corpuscular hemoglobin concentration (MCHC) determinationOrdered By: Viviana Mcgee on 03-30-2024 MCHC (RBC) [Mass/Vol] 32.6 g/dL 32-36 [facility] Mean platelet volume determi nationOrdered By: Viviana Mcgee on 03-30-2024 Platelet mean volume (Bld) [Entitic vol] 9.8 fL 6.2-12.0 [facility] Monocyte percentageOrdered B y: Viviana Mcgee on 03-30-2024 Monocytes/100 WBC (Bld) 10.4 % High 0-10 [facility] Neutrophil percentageOrdered By: Viviana Mcgee on 03-30-2024 Neutrophils/100 WBC (Bld) 55.3 % 47-70 [facility] Nucleated red blood cell per centageOrdered By: Viviana Mcgee on 03-30-2024 Nucleated RBC/100 WBC (Bld) [Ratio] 0 % 0-5 [facility] Platelet countOrdered By: Link Mcgee on 03-30-2024 Platelets (Bld) [#/Vol] 241 10*3/uL 150-450 [facility] Potassium measurementOrdered By: Viviana Mcgee on 03-30-2024 Potassium [Moles/Vol] 3.7 mmol/L 3.5-5.1 [facility] RBC Auto (Bld) [#/Vol]Ordere d By: Viviana Mcgee on 03-30-2024 RBC (Bld) [#/Vol] 3.78 10*6/uL Low 4.2-5.4 [facility] Serum anion gap measurementO rdered By: Viviana Mcgee on 03-30-2024 Anion gap [Moles/Vol] 6 mmol/L 5-15 [facility] Serum globulin measurementOr dered By: Viviana Mcgee on 03-30-2024 Globulin (S) [Mass/Vol] 3.1 g/dL 2.2-4.2 [facility] Serum or plasma alanine jay otransferase (ALT) measurementOrdered By: Viviana Mcgee on 03-30-2024 ALT [Catalytic activity/Vol] 15 U/L 13-56 [facility] Serum or plasma albumin fiona urement (mass/volume)Ordered By: Linklevy Mcgee on 03-30-2024 Albumin [Mass/Vol] 3.5 g/dL 3.2-5.0 [facility] Serum or plasma alkaline dmitry sphatase measurementOrdered By: Linklawsonjose apapa Watsonluizji on 03-30-2024 ALP [Catalytic activity/Vol] 114 U/L 45-117 [facility] Serum or plasma calcium fiona urement (mass/volume)Ordered By: Linklevy Mcgee on 03-30-2024 Calcium [Mass/Vol] 8.5 mg/dL 8.5-10.1 [facility] Serum or plasma creatinine m easurement (mass/volume)Ordered By: Linklevy Mcgee on 03-30-2024 Creatinine [Mass/Vol] 0.77 mg/dL 0.55-1.02 [facility] Comment on above: The validity of the calculated GFR & GFRAA in patients over 70 years has not been determined. Clinical correlation is essential. Serum or plasma urea nitroge n measurement (mass/volume)Ordered By: Linklevy Mcgee on 03-30-2024 Urea nitrogen [Mass/Vol] 12 mg/dL 7-18 [facility] Sodium levelOrdered By: Reynaldo jaramillo Walterluizji on 03-30-2024 Sodium [Moles/Vol] 144 mmol/L 136-145 [facility] Total proteinOrdered By: Reza boothe Walterluizji on 03-30-2024 Protein [Mass/Vol] 6.6 g/dL 6.4-8.2 [facility] White blood cell (WBC) count Ordered By: Viviana Mcgee on 03-30-2024 WBC (Bld) [#/Vol] 5.4 10*3/uL 4.4-11.0 [facility] Absolute lymphocyte countOrd ered By: Matilda Doherty on 08-26-2023 Lymphocytes Auto (Unsp spec) [#/Vol] 1.44 10*3/uL 0.83-4.51 [facility] Automated lymphocyte count a s percentage of total leukocytesOrdered By: Matilda Doherty on 08-26-2023 Lymphocytes/100 WBC Auto (Unsp spec) 30.2 % 19-41 [facility] Basophil percentageOrdered B y: Matilda Doherty on 08-26-2023 Basophils/100 WBC (Bld) 1.3 % 0-1 [facility] Bilirubin [Mass/Vol] 0.30 mg/dL 0.20-1.00 [facility] Comment on above: For patients on eltr ombopag therapy, use of Dimension [place] TBIL is not recommended. Chloride [Moles/Vol] 109 mmol/L 98-107 [facility] Eosinophils/100 WBC (Bld) 3.8 % 0-5 [facility] Glucose [Mass/Vol] 121 mg/dL 74-106 [facility] Comment on above: Fasting Glucose resu lt from 100 to 125 mg/dL suggests IMPAIRED HOMEOSTASIS per A.D.A. criteria. Hemoglobin (Bld) [Mass/Vol] 12.1 g/dL 12.0-15.0 [facility] Monocytes/100 WBC (Bld) 11.7 % 0-10 [facility] Neutrophils (Bld) [#/Vol] 2.5 10*3/uL 2.0-7.7 [facility] Neutrophils/100 WBC (Bld) 52.8 % 47-70 [facility] Potassium [Moles/Vol] 4.3 mmol/L 3.5-5.1 [facility] Protein [Mass/Vol] 6.9 g/dL 6.4-8.2 [facility] Sodium [Moles/Vol] 141 mmol/L 136-145 [facility] WBC (Bld) [#/Vol] 4.8 10*3/uL 4.4-11.0 [facility] Determination of erythrocyte mean corpuscular volume (MCV)Ordered By: Matilda Doherty on 08-26-2023 MCV (RBC) [Entitic vol] 99.5 fL 81-99 [facility] Erythrocyte distribution wid th ratioOrdered By: Matilda Doherty on 08-26-2023 Erythrocyte distribution width (RBC) [Ratio] 12.6 % 11.6-14.6 [facility] Erythrocyte distribution wid th standard deviationOrdered By: Matilda Doherty on 08-26-2023 Erythrocyte distribution width (RBC) [Entitic vol] 46.0 fL 35.1-43.9 [facility] Hematocrit Auto (Bld) [Volum e fraction]Ordered By: Matilda Doherty on 08-26-2023 Hematocrit (Bld) [Volume fraction] 37.6 % 37-47 [facility] Immature granulocytes/100 WB C Auto (Bld)Ordered By: Matilda Doherty on 08-26-2023 Immature granulocytes/100 WBC (Bld) 0.200 % 0.0-0.9 [facility] Comment on above: IG% - Immature Granu locytes (promyelocytes, myelocytes and metamyelocytes) > 1% indicates that a LEFT SHIFT is Present. Laboratory - Chemistry and C hemistry - challengeOrdered By: Matilda Doherty on 08-26-2023 Albumin/Globulin [Mass ratio] 1.1 {ratio} 0.9-2.4 [facility] ALP [Catalytic activity/Vol] 89 U/L 45-117 [facility] ALT [Catalytic activity/Vol] 17 U/L 13-56 [facility] CO2 [Moles/Vol] 24.0 mmol/L 21.0-32.0 [facility] Globulin (S) [Mass/Vol] 3.3 g/dL 2.2-4.2 [facility] Urea nitrogen/Creatinine [Mass ratio] 17.3 mg/mg 10-20 [facility] Laboratory - Hematology and Cell countsOrdered By: Matilda Doherty on 08-26-2023 MCH (RBC) [Entitic mass] 32.0 pg 27.0-32.0 [facility] MCHC (RBC) [Mass/Vol] 32.2 g/dL 32-36 [facility] Nucleated RBC/100 WBC (Bld) [Ratio] 0 % 0-5 [facility] Platelet mean volume (Bld) [Entitic vol] 9.3 fL 6.2-12.0 [facility] Platelets (Bld) [#/Vol] 250 10*3/uL 150-450 [facility] No Panel InformationOrdered By: Matilda Doherty on 08-26-2023 Estimated GFR (MDRD) Amer 76 mL/min >60 [facility] Comment on above: GFR Calc Estimated GFR (MDRD) Non-Af Amer 63 mL/min >60 [facility] Comment on above: Non- GFR Calc RBC Auto (Bld) [#/Vol]Ordere d By: Matilda Doherty on 08-26-2023 RBC (Bld) [#/Vol] 3.78 10*6/uL 4.2-5.4 [facility] Serum or plasma calcium fiona urement (mass/volume)Ordered By: Matilda Doherty on 08-26-2023 Calcium [Mass/Vol] 8.8 mg/dL 8.5-10.1 [facility] Serum or plasma creatinine m easurement (mass/volume)Ordered By: Matilda Doherty on 08-26-2023 Creatinine [Mass/Vol] 0.92 mg/dL 0.55-1.02 [facility] Comment on above: The validity of the calculated GFR & GFRAA in patients over 70 years has not been determined. Clinical correlation is essential. Serum or plasma thyroid stim ulating hormone (TSH) measurement (units/volume)Ordered By: Matilda Doherty on 08-26-2023 TSH Qn 1.89 uIU/mL 0.358-3.74 [facility] Serum or plasma urea nitroge n measurement (mass/volume)Ordered By: Matilda Doherty on 08-26-2023 Urea nitrogen [Mass/Vol] 16 mg/dL 7-18 [facility] Thin prep Papanicolaou smear with manual screeningOrdered By: Matilda Doherty on 08-26-2023 Thin prep Papanicolaou smear with manual screening 3.6 g/dL 3.2-5.0 [facility] Thin prep Papanicolaou smear with manual screening 16 U/L 15-37 [facility] Thin prep Papanicolaou smear with manual screening 8 5-15 [facility] No Panel InformationOrdered By: Viviana Mcgee on 08-16-2023 Vitamin D 25-Hydroxy 74.1 ng/mL [facility] Comment on above: Vitamin D 25(OH) Sta tus Range Deficiency <20 ng/mL (50nmol/L) Insufficiency 20 - 30 ng/mL (50 - 75 nmol/L) Sufficiency 30 - 100 ng/mL (75 - 250 nmol/L) Toxicity >100 ng/mL (>250 nmol/L) Absolute lymphocyte countOrd ered By: Viviana Mcgee on 07-29-2023 Lymphocytes Auto (Unsp spec) [#/Vol] 1.41 10*3/uL 0.83-4.51 [facility] Automated lymphocyte count a s percentage of total leukocytesOrdered By: Viviana Mcgee on 07-29-2023 Lymphocytes/100 WBC Auto (Unsp spec) 21.1 % 19-41 [facility] Basophil percentageOrdered B y: Viviana Mcgee on 07-29-2023 Basophils/100 WBC (Bld) 0.7 % 0-1 [facility] Bilirubin [Mass/Vol] 0.30 mg/dL 0.20-1.00 [facility] Comment on above: For patients on eltr ombopag therapy, use of Dimension [place] TBIL is not recommended. Chloride [Moles/Vol] 113 mmol/L 98-107 [facility] Eosinophils/100 WBC (Bld) 2.7 % 0-5 [facility] Glucose [Mass/Vol] 112 mg/dL 74-106 [facility] Comment on above: Fasting Glucose resu lt from 100 to 125 mg/dL suggests IMPAIRED HOMEOSTASIS per A.D.A. criteria. Hemoglobin (Bld) [Mass/Vol] 12.0 g/dL 12.0-15.0 [facility] Monocytes/100 WBC (Bld) 9.1 % 0-10 [facility] Neutrophils (Bld) [#/Vol] 4.4 10*3/uL 2.0-7.7 [facility] Neutrophils/100 WBC (Bld) 66.0 % 47-70 [facility] Potassium [Moles/Vol] 4.0 mmol/L 3.5-5.1 [facility] Protein [Mass/Vol] 6.8 g/dL 6.4-8.2 [facility] Sodium [Moles/Vol] 142 mmol/L 136-145 [facility] WBC (Bld) [#/Vol] 6.7 10*3/uL 4.4-11.0 [facility] Determination of erythrocyte mean corpuscular volume (MCV)Ordered By: [place] Watsonluizji on 07-29-2023 MCV (RBC) [Entitic vol] 99.2 fL 81-99 [facility] Erythrocyte distribution wid th ratioOrdered By: Reynaldocuba citypapa Mcgee on 07-29-2023 Erythrocyte distribution width (RBC) [Ratio] 12.8 % 11.6-14.6 [facility] Erythrocyte distribution wid th standard deviationOrdered By: [facility] Everardo on 07-29-2023 Erythrocyte distribution width (RBC) [Entitic vol] 46.4 fL 35.1-43.9 [facility] Hematocrit Auto (Bld) [Volum e fraction]Ordered By: [facility] Mcgee on 07-29-2023 Hematocrit (Bld) [Volume fraction] 37.3 % 37-47 [facility] Immature granulocytes/100 WB C Auto (Bld)Ordered By: [facility] Everardo on 07-29-2023 Immature granulocytes/100 WBC (Bld) 0.400 % 0.0-0.9 [facility] Comment on above: IG% - Immature Granu locytes (promyelocytes, myelocytes and metamyelocytes) > 1% indicates that a LEFT SHIFT is Present. Laboratory - Chemistry and C hemistry - challengeOrdered By: [facility] Mcgee on 07-29-2023 Albumin/Globulin [Mass ratio] 1.0 {ratio} 0.9-2.4 [facility] ALP [Catalytic activity/Vol] 92 U/L 45-117 [facility] ALT [Catalytic activity/Vol] 15 U/L 13-56 [facility] CO2 [Moles/Vol] 25.0 mmol/L 21.0-32.0 [facility] Globulin (S) [Mass/Vol] 3.4 g/dL 2.2-4.2 [facility] Urea nitrogen/Creatinine [Mass ratio] 13.4 mg/mg 10-20 [facility] Laboratory - Hematology and Cell countsOrdered By: lawsoncuba citypapa Mcgee on 07-29-2023 MCH (RBC) [Entitic mass] 31.9 pg 27.0-32.0 [facility] MCHC (RBC) [Mass/Vol] 32.2 g/dL 32-36 [facility] Nucleated RBC/100 WBC (Bld) [Ratio] 0 % 0-5 [facility] Platelet mean volume (Bld) [Entitic vol] 9.4 fL 6.2-12.0 [facility] Platelets (Bld) [#/Vol] 275 10*3/uL 150-450 [facility] No Panel InformationOrdered By: Viviana Mcgee on 07-29-2023 Estimated GFR (MDRD) Amer 79 mL/min >60 [facility] Comment on above: GFR Calc Estimated GFR (MDRD) Non-Af Amer 65 mL/min >60 [facility] Comment on above: Non- GFR Calc RBC Auto (Bld) [#/Vol]Ordere d By: Viviana Mcgee on 07-29-2023 RBC (Bld) [#/Vol] 3.76 10*6/uL 4.2-5.4 [facility] Serum or plasma calcium fiona urement (mass/volume)Ordered By: Viviana Mcgee on 07-29-2023 Calcium [Mass/Vol] 8.8 mg/dL 8.5-10.1 [facility] Serum or plasma creatinine m easurement (mass/volume)Ordered By: Viviana Mcgee on 07-29-2023 Creatinine [Mass/Vol] 0.89 mg/dL 0.55-1.02 [facility] Comment on above: The validity of the calculated GFR & GFRAA in patients over 70 years has not been determined. Clinical correlation is essential. Serum or plasma urea nitroge n measurement (mass/volume)Ordered By: Viviana Mcgee on 07-29-2023 Urea nitrogen [Mass/Vol] 12 mg/dL 7-18 [facility] Thin prep Papanicolaou smear with manual screeningOrdered By: Viviana Mcgee on 07-29-2023 Thin prep Papanicolaou smear with manual screening 3.4 g/dL 3.2-5.0 [facility] Thin prep Papanicolaou smear with manual screening 17 U/L 15-37 [facility] Thin prep Papanicolaou smear with manual screening 4 5-15 [facility] Absolute lymphocyte countOrd ered By: Matilda Doherty on 06-24-2023 Lymphocytes Auto (Unsp spec) [#/Vol] 1.01 10*3/uL 0.83-4.51 [facility] Automated lymphocyte count a s percentage of total leukocytesOrdered By: Matilda Doherty on 06-24-2023 Lymphocytes/100 WBC Auto (Unsp spec) 16.4 % 19-41 [facility] Basophil percentageOrdered B y: Matilda Doherty on 06-24-2023 Basophils/100 WBC (Bld) 0.7 % 0-1 [facility] Bilirubin [Mass/Vol] 0.40 mg/dL 0.20-1.00 [facility] Comment on above: For patients on eltr ombopag therapy, use of Dimension [place] TBIL is not recommended. Chloride [Moles/Vol] 111 mmol/L 98-107 [facility] Cholesterol [Mass/Vol] 108 mg/dL <200 [facility] Comment on above: <200 mg/dL Desirable 200-240 mg/dL Borderline >240 mg/dL High Risk Eosinophils/100 WBC (Bld) 2.9 % 0-5 [facility] Glucose [Mass/Vol] 142 mg/dL 74-106 [facility] Comment on above: Fasting Glucose resu lt greater than or equal to 126 mg/dL suggests DIABETES MELLITUS per A.D.A. criteria. Hemoglobin (Bld) [Mass/Vol] 11.9 g/dL 12.0-15.0 [facility] Monocytes/100 WBC (Bld) 11.5 % 0-10 [facility] Neutrophils (Bld) [#/Vol] 4.2 10*3/uL 2.0-7.7 [facility] Neutrophils/100 WBC (Bld) 68.3 % 47-70 [facility] Potassium [Moles/Vol] 4.3 mmol/L 3.5-5.1 [facility] Protein [Mass/Vol] 6.8 g/dL 6.4-8.2 [facility] Sodium [Moles/Vol] 140 mmol/L 136-145 [facility] Triglyceride [Mass/Vol] 204 mg/dL <199 [facility] Comment on above: The drugs N-Acetylcy steine and Metamizole may falsely depress this assay.Serum Triglycerides Reference Interval Normal <150 mg/dL Borderline high 150 - 199 mg/dL High 200 - 499 mg/dL Very High > or = 500 mg/dL WBC (Bld) [#/Vol] 6.2 10*3/uL 4.4-11.0 [facility] Determination of erythrocyte mean corpuscular volume (MCV)Ordered By: Matilda Doherty on 06-24-2023 MCV (RBC) [Entitic vol] 98.9 fL 81-99 [facility] Erythrocyte distribution wid th ratioOrdered By: Matilda Doherty on 06-24-2023 Erythrocyte distribution width (RBC) [Ratio] 12.8 % 11.6-14.6 [facility] Erythrocyte distribution wid th standard deviationOrdered By: Matilda Doherty on 06-24-2023 Erythrocyte distribution width (RBC) [Entitic vol] 46.1 fL 35.1-43.9 [facility] Hematocrit Auto (Bld) [Volum e fraction]Ordered By: Matilda Doherty on 06-24-2023 Hematocrit (Bld) [Volume fraction] 36.5 % 37-47 [facility] Immature granulocytes/100 WB C Auto (Bld)Ordered By: Matilda Doherty on 06-24-2023 Immature granulocytes/100 WBC (Bld) 0.200 % 0.0-0.9 [facility] Comment on above: IG% - Immature Granu locytes (promyelocytes, myelocytes and metamyelocytes) > 1% indicates that a LEFT SHIFT is Present. Laboratory - Chemistry and C hemistry - challengeOrdered By: Matilda Doherty on 06-24-2023 Albumin/Globulin [Mass ratio] 1.0 {ratio} 0.9-2.4 [facility] ALP [Catalytic activity/Vol] 110 U/L 45-117 [facility] ALT [Catalytic activity/Vol] 16 U/L 13-56 [facility] Cholesterol in HDL [Mass/Vol] 38 mg/dL >40 [facility] Comment on above: The drugs N-Acetylcy steine and Metamizole may falsely depress this assay. Reference Range HDL <40 mg/dL Low HDL Cholesterol HDL >or= 60 mg/dL High HDL Cholesterol Cholesterol in LDL [Mass/Vol] 29 mg/dL 0-130 [facility] CO2 [Moles/Vol] 25.0 mmol/L 21.0-32.0 [facility] Globulin (S) [Mass/Vol] 3.4 g/dL 2.2-4.2 [facility] Urea nitrogen/Creatinine [Mass ratio] 12.3 mg/mg 10-20 [facility] Laboratory - Hematology and Cell countsOrdered By: Matilda Doherty on 06-24-2023 MCH (RBC) [Entitic mass] 32.2 pg 27.0-32.0 [facility] MCHC (RBC) [Mass/Vol] 32.6 g/dL 32-36 [facility] Nucleated RBC/100 WBC (Bld) [Ratio] 0 % 0-5 [facility] Platelet mean volume (Bld) [Entitic vol] 9.1 fL 6.2-12.0 [facility] Platelets (Bld) [#/Vol] 267 10*3/uL 150-450 [facility] No Panel InformationOrdered By: Matilda Doherty on 06-24-2023 Estimated GFR (MDRD) Amer 72 mL/min >60 [facility] Comment on above: GFR Calc Estimated GFR (MDRD) Non-Af Amer 59 mL/min >60 [facility] Comment on above: Non- GFR Calc VLDL Cholesterol 41 mg/dL 5-40 [facility] RBC Auto (Bld) [#/Vol]Ordere d By: Matilda Doherty on 06-24-2023 RBC (Bld) [#/Vol] 3.69 10*6/uL 4.2-5.4 [facility] Serum or plasma calcium fiona urement (mass/volume)Ordered By: Matilda Doherty on 06-24-2023 Calcium [Mass/Vol] 9.2 mg/dL 8.5-10.1 [facility] Serum or plasma creatinine m easurement (mass/volume)Ordered By: Matilda Doherty on 06-24-2023 Creatinine [Mass/Vol] 0.97 mg/dL 0.55-1.02 [facility] Comment on above: The validity of the calculated GFR & GFRAA in patients over 70 years has not been determined. Clinical correlation is essential. Serum or plasma urea nitroge n measurement (mass/volume)Ordered By: Matilda Doherty on 06-24-2023 Urea nitrogen [Mass/Vol] 12 mg/dL 7-18 [facility] Thin prep Papanicolaou smear with manual screeningOrdered By: Matilda Doherty on 06-24-2023 Thin prep Papanicolaou smear with manual screening 3.4 g/dL 3.2-5.0 [facility] Thin prep Papanicolaou smear with manual screening 11 U/L 15-37 [facility] Thin prep Papanicolaou smear with manual screening 4 5-15 [facility] Whole blood hemoglobin A1c/t otal hemoglobin ratio (mass fraction)Ordered By: Matilda Doherty on 06-24-2023 HbA1c (Bld) [Mass fraction] 7.5 % 3.8-5.6 [facility] Comment on above: Normal < 5.7 % Predi abetic 5.7 - 6.4 % Diabetic >or= 6.5 % Please note range changes. Absolute lymphocyte countOrd ered By: Viviana Mcgee on 05-27-2023 Lymphocytes Auto (Unsp spec) [#/Vol] 1.09 10*3/uL 0.83-4.51 [facility] Automated lymphocyte count a s percentage of total leukocytesOrdered By: Viviana Mcgee on 05-27-2023 Lymphocytes/100 WBC Auto (Unsp spec) 9.6 % 19-41 [facility] Basophil percentageOrdered B y: Viviana Mcgee on 05-27-2023 Basophils/100 WBC (Bld) 0.4 % 0-1 [facility] Bilirubin [Mass/Vol] 0.20 mg/dL 0.20-1.00 [facility] Comment on above: For patients on eltr ombopag therapy, use of Dimension [place] TBIL is not recommended. Chloride [Moles/Vol] 114 mmol/L 98-107 [facility] Eosinophils/100 WBC (Bld) 0.7 % 0-5 [facility] Glucose [Mass/Vol] 224 mg/dL 74-106 [facility] Comment on above: Glucose result great er than or equal to 200 mg/dLsuggests DIABETES MELLITUS per A.D.A. criteria. Hemoglobin (Bld) [Mass/Vol] 12.5 g/dL 12.0-15.0 [facility] Monocytes/100 WBC (Bld) 9.0 % 0-10 [facility] Neutrophils (Bld) [#/Vol] 9.1 10*3/uL 2.0-7.7 [facility] Neutrophils/100 WBC (Bld) 80.0 % 47-70 [facility] Potassium [Moles/Vol] 4.6 mmol/L 3.5-5.1 [facility] Protein [Mass/Vol] 7.9 g/dL 6.4-8.2 [facility] Sodium [Moles/Vol] 137 mmol/L 136-145 [facility] WBC (Bld) [#/Vol] 11.3 10*3/uL 4.4-11.0 [facility] Determination of erythrocyte mean corpuscular volume (MCV)Ordered By: Viviana Mcgee on 05-27-2023 MCV (RBC) [Entitic vol] 101.0 fL 81-99 [facility] Erythrocyte distribution wid th ratioOrdered By: [facility] Watsonji on 05-27-2023 Erythrocyte distribution width (RBC) [Ratio] 13.0 % 11.6-14.6 [facility] Erythrocyte distribution wid th standard deviationOrdered By: [facility] Mcgee on 05-27-2023 Erythrocyte distribution width (RBC) [Entitic vol] 48.2 fL 35.1-43.9 [facility] Hematocrit Auto (Bld) [Volum e fraction]Ordered By: Reynaldocuba citypapa Mcgee on 05-27-2023 Hematocrit (Bld) [Volume fraction] 39.5 % 37-47 [facility] Immature granulocytes/100 WB C Auto (Bld)Ordered By: Viviana Mcgee on 05-27-2023 Immature granulocytes/100 WBC (Bld) 0.300 % 0.0-0.9 [facility] Comment on above: IG% - Immature Granu locytes (promyelocytes, myelocytes and metamyelocytes) > 1% indicates that a LEFT SHIFT is Present. Laboratory - Chemistry and C hemistry - challengeOrdered By: Viviana Mcgee on 05-27-2023 Albumin/Globulin [Mass ratio] 0.9 {ratio} 0.9-2.4 [facility] ALP [Catalytic activity/Vol] 117 U/L 45-117 [facility] ALT [Catalytic activity/Vol] 21 U/L 13-56 [facility] CO2 [Moles/Vol] 19.0 mmol/L 21.0-32.0 [facility] Globulin (S) [Mass/Vol] 4.1 g/dL 2.2-4.2 [facility] Urea nitrogen/Creatinine [Mass ratio] 18.8 mg/mg 10-20 [facility] Laboratory - Hematology and Cell countsOrdered By: Viviana Mcgee on 05-27-2023 MCH (RBC) [Entitic mass] 32.0 pg 27.0-32.0 [facility] MCHC (RBC) [Mass/Vol] 31.6 g/dL 32-36 [facility] Nucleated RBC/100 WBC (Bld) [Ratio] 0 % 0-5 [facility] Platelets (Bld) [#/Vol] 301 10*3/uL 150-450 [facility] No Panel InformationOrdered By: Viviana Mcgee on 05-27-2023 Estimated GFR (MDRD) Amer 61 mL/min >60 [facility] Comment on above: GFR Calc Estimated GFR (MDRD) Non-Af Amer 50 mL/min >60 [facility] Comment on above: Non- GFR Calc Platelet mean volume Bj-Ec ker (Bld) [Entitic vol]Ordered By: Viviana Mcgee on 05-27-2023 Platelet mean volume (Bld) [Entitic vol] 9.3 fL 6.2-12.0 [facility] RBC Auto (Bld) [#/Vol]Ordere d By: Viviana Mcgee on 05-27-2023 RBC (Bld) [#/Vol] 3.91 10*6/uL 4.2-5.4 [facility] Serum or plasma calcium fiona urement (mass/volume)Ordered By: Viviana Mcgee on 05-27-2023 Calcium [Mass/Vol] 9.0 mg/dL 8.5-10.1 [facility] Serum or plasma creatinine m easurement (mass/volume)Ordered By: Viviana Mcgee on 05-27-2023 Creatinine [Mass/Vol] 1.12 mg/dL 0.55-1.02 [facility] Comment on above: The validity of the calculated GFR & GFRAA in patients over 70 years has not been determined. Clinical correlation is essential. Serum or plasma urea nitroge n measurement (mass/volume)Ordered By: Viviana Mcgee on 05-27-2023 Urea nitrogen [Mass/Vol] 21 mg/dL 7-18 [facility] Thin prep Papanicolaou smear with manual screeningOrdered By: Viviana Mcgee on 05-27-2023 Thin prep Papanicolaou smear with manual screening 3.8 g/dL 3.2-5.0 [facility] Thin prep Papanicolaou smear with manual screening 14 U/L 15-37 [facility] Thin prep Papanicolaou smear with manual screening 4 5-15 [facility] Absolute lymphocyte countOrd ered By: Viviana Mcgee on 04-29-2023 Lymphocytes Auto (Unsp spec) [#/Vol] 1.47 10*3/uL 0.83-4.51 [facility] Basophil percentageOrdered B y: Viviana Mcgee on 04-29-2023 Basophils/100 WBC (Bld) 1.3 % 0-1 [facility] Bilirubin [Mass/Vol] 0.30 mg/dL 0.20-1.00 [facility] Comment on above: For patients on eltr ombopag therapy, use of Dimension [place] TBIL is not recommended. Chloride [Moles/Vol] 109 mmol/L 98-107 [facility] Eosinophils/100 WBC (Bld) 3.0 % 0-5 [facility] Glucose [Mass/Vol] 144 mg/dL 74-106 [facility] Comment on above: Fasting Glucose resu lt greater than or equal to 126 mg/dL suggests DIABETES MELLITUS per A.D.A. criteria. Neutrophils (Bld) [#/Vol] 3.4 10*3/uL 2.0-7.7 [facility] Neutrophils/100 WBC (Bld) 60.2 % 47-70 [facility] Potassium [Moles/Vol] 4.1 mmol/L 3.5-5.1 [facility] Protein [Mass/Vol] 7.5 g/dL 6.4-8.2 [facility] Sodium [Moles/Vol] 139 mmol/L 136-145 [facility] WBC (Bld) [#/Vol] 5.6 10*3/uL 4.4-11.0 [facility] Blood erythrocytes count (nu mber/volume)Ordered By: Viviana Mcgee on 04-29-2023 RBC (Bld) [#/Vol] 3.98 10*6/uL 4.2-5.4 [facility] Blood hemoglobin measurement (mass/volume)Ordered By: Viviana Mgcee on 04-29-2023 Hemoglobin (Bld) [Mass/Vol] 12.6 g/dL 12.0-15.0 [facility] Blood lymphocytes/100 leukoc ytesOrdered By: Viviana Mcgee on 04-29-2023 Lymphocytes/100 WBC (Bld) 26.3 % 19-41 [facility] Blood monocytes/100 leukocyt esOrdered By: Viviana Mcgee on 04-29-2023 Monocytes/100 WBC (Bld) 8.8 % 0-10 [facility] Blood platelet mean volumeOr dered By: Viviana Mcgee on 04-29-2023 Platelet mean volume (Bld) [Entitic vol] 9.3 fL 6.2-12.0 [facility] Determination of erythrocyte mean corpuscular volume (MCV)Ordered By: Viviana Mcgee on 04-29-2023 MCV (RBC) [Entitic vol] 98.7 fL 81-99 [facility] Hematocrit Auto (Bld) [Volum e fraction]Ordered By: Viviana Mcgee on 04-29-2023 Hematocrit (Bld) [Volume fraction] 39.3 % 37-47 [facility] Laboratory - Chemistry and C hemistry - challengeOrdered By: Viviana Mcgee on 04-29-2023 ALP [Catalytic activity/Vol] 102 U/L 45-117 [facility] ALT [Catalytic activity/Vol] 14 U/L 13-56 [facility] CO2 [Moles/Vol] 25.0 mmol/L 21.0-32.0 [facility] Globulin (S) [Mass/Vol] 3.9 g/dL 2.2-4.2 [facility] Urea nitrogen/Creatinine [Mass ratio] 16.7 mg/mg 10-20 [facility] Laboratory - Hematology and Cell countsOrdered By: Viviana Mcgee on 04-29-2023 Erythrocyte distribution width (RBC) [Entitic vol] 46.8 fL 35.1-43.9 [facility] Erythrocyte distribution width (RBC) [Ratio] 12.9 % 11.6-14.6 [facility] Immature granulocytes/100 WBC (Bld) 0.400 % 0.0-0.9 [facility] Comment on above: IG% - Immature Granu locytes (promyelocytes, myelocytes and metamyelocytes) > 1% indicates that a LEFT SHIFT is Present. MCH (RBC) [Entitic mass] 31.7 pg 27.0-32.0 [facility] Nucleated RBC/100 WBC (Bld) [Ratio] 0 % 0-5 [facility] MCHC Auto (RBC) [Mass/Vol]Or dered By: Viviana Mcgee on 04-29-2023 MCHC (RBC) [Mass/Vol] 32.1 g/dL 32-36 [facility] No Panel InformationOrdered By: Viviana Mcgee on 04-29-2023 Estimated GFR (MDRD) Amer 73 mL/min >60 [facility] Comment on above: GFR Calc Estimated GFR (MDRD) Non-Af Amer 60 mL/min >60 [facility] Comment on above: Non- GFR Calc Vitamin D 25-Hydroxy 13.0 ng/mL [facility] Comment on above: Vitamin D 25(OH) Sta tus Range Deficiency <20 ng/mL (50nmol/L) Insufficiency 20 - 30 ng/mL (50 - 75 nmol/L) Sufficiency 30 - 100 ng/mL (75 - 250 nmol/L) Toxicity >100 ng/mL (>250 nmol/L) Platelets bldOrdered By: Reza Mcgee on 04-29-2023 Platelets (Bld) [#/Vol] 289 10*3/uL 150-450 [facility] Serum or plasma albumin fiona urement (mass/volume)Ordered By: Viviana Mcgee on 04-29-2023 Albumin [Mass/Vol] 3.6 g/dL 3.2-5.0 [facility] Serum or plasma albumin/glob ulin mass ratioOrdered By: Viviana Mcgee on 04-29-2023 Albumin/Globulin [Mass ratio] 0.9 {ratio} 0.9-2.4 [facility] Serum or plasma calcium fiona urement (mass/volume)Ordered By: Viviana Mcgee on 04-29-2023 Calcium [Mass/Vol] 9.0 mg/dL 8.5-10.1 [facility] Serum or plasma creatinine m easurement (mass/volume)Ordered By: Viviana Mcgee on 04-29-2023 Creatinine [Mass/Vol] 0.96 mg/dL 0.55-1.02 [facility] Comment on above: The validity of the calculated GFR & GFRAA in patients over 70 years has not been determined. Clinical correlation is essential. Serum or plasma urea nitroge n measurement (mass/volume)Ordered By: Viviana Mcgee on 04-29-2023 Urea nitrogen [Mass/Vol] 16 mg/dL 7-18 [facility] Thin prep Papanicolaou smear with manual screeningOrdered By: Viviana Mcgee on 04-29-2023 Thin prep Papanicolaou smear with manual screening 10 U/L 15-37 [facility] Thin prep Papanicolaou smear with manual screening 5 5-15 [facility] Absolute lymphocyte countOrd ered By: Viviana Mcgee on 03-25-2023 Lymphocytes Auto (Unsp spec) [#/Vol] 1.53 10*3/uL 0.83-4.51 [facility] Basophil percentageOrdered B y: Viviana Mcgee on 03-25-2023 Basophils/100 WBC (Bld) 0.8 % 0-1 [facility] Bilirubin [Mass/Vol] 0.20 mg/dL 0.20-1.00 [facility] Comment on above: For patients on eltr ombopag therapy, use of Dimension [place] TBIL is not recommended. Chloride [Moles/Vol] 107 mmol/L 98-107 [facility] Eosinophils/100 WBC (Bld) 2.3 % 0-5 [facility] Glucose [Mass/Vol] 189 mg/dL 74-106 [facility] Comment on above: Fasting Glucose resu lt greater than or equal to 126 mg/dL suggests DIABETES MELLITUS per A.D.A. criteria. Neutrophils (Bld) [#/Vol] 4.9 10*3/uL 2.0-7.7 [facility] Neutrophils/100 WBC (Bld) 66.1 % 47-70 [facility] Potassium [Moles/Vol] 4.4 mmol/L 3.5-5.1 [facility] Protein [Mass/Vol] 7.8 g/dL 6.4-8.2 [facility] Sodium [Moles/Vol] 135 mmol/L 136-145 [facility] WBC (Bld) [#/Vol] 7.4 10*3/uL 4.4-11.0 [facility] Blood erythrocytes count (nu mber/volume)Ordered By: Viviana Mcgee on 03-25-2023 RBC (Bld) [#/Vol] 3.98 10*6/uL 4.2-5.4 [facility] Blood hemoglobin measurement (mass/volume)Ordered By: Viviana Mcgee on 03-25-2023 Hemoglobin (Bld) [Mass/Vol] 12.6 g/dL 12.0-15.0 [facility] Blood lymphocytes/100 leukoc ytesOrdered By: Viviana Mcgee on 03-25-2023 Lymphocytes/100 WBC (Bld) 20.6 % 19-41 [facility] Blood monocytes/100 leukocyt esOrdered By: Viviana Mcgee on 03-25-2023 Monocytes/100 WBC (Bld) 9.7 % 0-10 [facility] Blood platelet mean volumeOr dered By: Viviana Mcgee on 03-25-2023 Platelet mean volume (Bld) [Entitic vol] 9.1 fL 6.2-12.0 [facility] Determination of erythrocyte mean corpuscular volume (MCV)Ordered By: Viviana Mcgee on 12-01-2023 MCV (RBC) [Entitic vol] 97.5 fL 81-99 [facility] Hematocrit Auto (Bld) [Volum e fraction]Ordered By: Viviana Mcgee on 03-25-2023 Hematocrit (Bld) [Volume fraction] 38.8 % 37-47 [facility] Laboratory - Chemistry and C hemistry - challengeOrdered By: Viviana Mcgee on 03-25-2023 ALP [Catalytic activity/Vol] 109 U/L 45-117 [facility] ALT [Catalytic activity/Vol] 16 U/L 13-56 [facility] CO2 [Moles/Vol] 23.0 mmol/L 21.0-32.0 [facility] Globulin (S) [Mass/Vol] 4.1 g/dL 2.2-4.2 [facility] Urea nitrogen/Creatinine [Mass ratio] 19.6 mg/mg 10-20 [facility] Laboratory - Hematology and Cell countsOrdered By: Viviana Mcgee on 03-25-2023 Erythrocyte distribution width (RBC) [Entitic vol] 44.2 fL 35.1-43.9 [facility] Erythrocyte distribution width (RBC) [Ratio] 12.2 % 11.6-14.6 [facility] Immature granulocytes/100 WBC (Bld) 0.500 % 0.0-0.9 [facility] Comment on above: IG% - Immature Granu locytes (promyelocytes, myelocytes and metamyelocytes) > 1% indicates that a LEFT SHIFT is Present. MCH (RBC) [Entitic mass] 31.7 pg 27.0-32.0 [facility] Nucleated RBC/100 WBC (Bld) [Ratio] 0 % 0-5 [facility] MCHC Auto (RBC) [Mass/Vol]Or dered By: Viviana Mcgee on 03-25-2023 MCHC (RBC) [Mass/Vol] 32.5 g/dL 32-36 [facility] No Panel InformationOrdered By: Viviana Mcgee on 03-25-2023 Estimated GFR (MDRD) Amer 68 mL/min >60 [facility] Comment on above: GFR Calc Estimated GFR (MDRD) Non-Af Amer 56 mL/min >60 [facility] Comment on above: Non- GFR Calc Platelets bldOrdered By: Reza boothe Walterluizji on 03-25-2023 Platelets (Bld) [#/Vol] 337 10*3/uL 150-450 [facility] Serum or plasma albumin fiona urement (mass/volume)Ordered By: Viviana Mcgee on 03-25-2023 Albumin [Mass/Vol] 3.7 g/dL 3.2-5.0 [facility] Serum or plasma albumin/glob ulin mass ratioOrdered By: Viviana Mcgee on 03-25-2023 Albumin/Globulin [Mass ratio] 0.9 {ratio} 0.9-2.4 [facility] Serum or plasma calcium fiona urement (mass/volume)Ordered By: Viviana Mcgee on 03-25-2023 Calcium [Mass/Vol] 9.1 mg/dL 8.5-10.1 [facility] Serum or plasma creatinine m easurement (mass/volume)Ordered By: Viviana Mcgee on 03-25-2023 Creatinine [Mass/Vol] 1.02 mg/dL 0.55-1.02 [facility] Comment on above: The validity of the calculated GFR & GFRAA in patients over 70 years has not been determined. Clinical correlation is essential. Serum or plasma urea nitroge n measurement (mass/volume)Ordered By: Viviana Mcgee on 03-25-2023 Urea nitrogen [Mass/Vol] 20 mg/dL 7-18 [facility] Thin prep Papanicolaou smear with manual screeningOrdered By: Viviana Mcege on 03-25-2023 Thin prep Papanicolaou smear with manual screening 10 U/L 15-37 [facility] Thin prep Papanicolaou smear with manual screening 5 5-15 [facility] Absolute lymphocyte countOrd ered By: [facility] Living on 02-25-2023 Lymphocytes Auto (Unsp spec) [#/Vol] 1.49 10*3/uL 0.83-4.51 [facility] Basophil percentageOrdered B y: Juan Carlos Living on 02-25-2023 Basophils/100 WBC (Bld) 1.0 % 0-1 [facility] Bilirubin [Mass/Vol] 0.30 mg/dL 0.20-1.00 [facility] Comment on above: For patients on eltr ombopag therapy, use of Dimension [place] TBIL is not recommended. Chloride [Moles/Vol] 109 mmol/L 98-107 [facility] Eosinophils/100 WBC (Bld) 3.1 % 0-5 [facility] Glucose [Mass/Vol] 165 mg/dL 74-106 [facility] Comment on above: Fasting Glucose resu lt greater than or equal to 126 mg/dL suggests DIABETES MELLITUS per A.D.A. criteria. Neutrophils (Bld) [#/Vol] 2.8 10*3/uL 2.0-7.7 [facility] Neutrophils/100 WBC (Bld) 54.5 % 47-70 [facility] Potassium [Moles/Vol] 4.2 mmol/L 3.5-5.1 [facility] Protein [Mass/Vol] 6.9 g/dL 6.4-8.2 [facility] Sodium [Moles/Vol] 139 mmol/L 136-145 [facility] WBC (Bld) [#/Vol] 5.1 10*3/uL 4.4-11.0 [facility] Blood erythrocytes count (nu mber/volume)Ordered By: [facility] on 02-25-2023 RBC (Bld) [#/Vol] 3.70 10*6/uL 4.2-5.4 [facility] Blood hemoglobin measurement (mass/volume)Ordered By: [facility] on 02-25-2023 Hemoglobin (Bld) [Mass/Vol] 12.1 g/dL 12.0-15.0 [facility] Blood lymphocytes/100 leukoc ytesOrdered By: [facility] on 02-25-2023 Lymphocytes/100 WBC (Bld) 29.2 % 19-41 [facility] Blood monocytes/100 leukocyt esOrdered By: [facility] on 02-25-2023 Monocytes/100 WBC (Bld) 11.8 % 0-10 [facility] Blood platelet mean volumeOr dered By: [facility] on 02-25-2023 Platelet mean volume (Bld) [Entitic vol] 9.3 fL 6.2-12.0 [facility] Determination of erythrocyte mean corpuscular volume (MCV)Ordered By: [facility] on 02-25-2023 MCV (RBC) [Entitic vol] 97.8 fL 81-99 [facility] Hematocrit Auto (Bld) [Volum e fraction]Ordered By: [facility] on 02-25-2023 Hematocrit (Bld) [Volume fraction] 36.2 % 37-47 [facility] Laboratory - Chemistry and C hemistry - challengeOrdered By: [facility] on 02-25-2023 ALP [Catalytic activity/Vol] 102 U/L 45-117 [facility] ALT [Catalytic activity/Vol] 15 U/L 13-56 [facility] CO2 [Moles/Vol] 26.0 mmol/L 21.0-32.0 [facility] Globulin (S) [Mass/Vol] 3.8 g/dL 2.2-4.2 [facility] Urea nitrogen/Creatinine [Mass ratio] 14.4 mg/mg 10-20 [facility] Laboratory - Hematology and Cell countsOrdered By: [facility] on 02-25-2023 Erythrocyte distribution width (RBC) [Entitic vol] 45.0 fL 35.1-43.9 [facility] Erythrocyte distribution width (RBC) [Ratio] 12.5 % 11.6-14.6 [facility] Immature granulocytes/100 WBC (Bld) 0.400 % 0.0-0.9 [facility] Comment on above: IG% - Immature Granu locytes (promyelocytes, myelocytes and metamyelocytes) > 1% indicates that a LEFT SHIFT is Present. MCH (RBC) [Entitic mass] 32.7 pg 27.0-32.0 [facility] Nucleated RBC/100 WBC (Bld) [Ratio] 0 % 0-5 [facility] MCHC Auto (RBC) [Mass/Vol]Or dered By: [facility] on 02-25-2023 MCHC (RBC) [Mass/Vol] 33.4 g/dL 32-36 [facility] No Panel InformationOrdered By: [facility] on 02-25-2023 Estimated GFR (MDRD) Amer 78 mL/min >60 [facility] Comment on above: GFR Calc Estimated GFR (MDRD) Non-Af Amer 64 mL/min >60 [facility] Comment on above: Non- GFR Calc Platelets bldOrdered By: [facility] on 02-25-2023 Platelets (Bld) [#/Vol] 281 10*3/uL 150-450 [facility] Serum or plasma albumin fiona urement (mass/volume)Ordered By: [facility] on 02-25-2023 Albumin [Mass/Vol] 3.1 g/dL 3.2-5.0 [facility] Serum or plasma albumin/glob ulin mass ratioOrdered By: [facility] on 02-25-2023 Albumin/Globulin [Mass ratio] 0.8 {ratio} 0.9-2.4 [facility] Serum or plasma calcium fiona urement (mass/volume)Ordered By: [facility] on 02-25-2023 Calcium [Mass/Vol] 8.4 mg/dL 8.5-10.1 [facility] Serum or plasma creatinine m easurement (mass/volume)Ordered By: [facility] on 02-25-2023 Creatinine [Mass/Vol] 0.90 mg/dL 0.55-1.02 [facility] Comment on above: The validity of the calculated GFR & GFRAA in patients over 70 years has not been determined. Clinical correlation is essential. Serum or plasma urea nitroge n measurement (mass/volume)Ordered By: [facility] on 02-25-2023 Urea nitrogen [Mass/Vol] 13 mg/dL 7-18 [facility] Thin prep Papanicolaou smear with manual screeningOrdered By: [facility] on 02-25-2023 Thin prep Papanicolaou smear with manual screening 9 U/L 15-37 [facility] Thin prep Papanicolaou smear with manual screening 4 5-15 [facility] Absolute lymphocyte countOrd ered By: Viviana Mcgee on 01-28-2023 Lymphocytes Auto (Unsp spec) [#/Vol] 1.28 10*3/uL 0.83-4.51 [facility] Basophil percentageOrdered B y: Viviana Mcgee on 01-28-2023 Basophils/100 WBC (Bld) 0.9 % 0-1 [facility] Bilirubin [Mass/Vol] 0.30 mg/dL 0.20-1.00 [facility] Comment on above: For patients on eltr ombopag therapy, use of Dimension Mays TBIL is not recommended. Chloride [Moles/Vol] 109 mmol/L 98-107 [facility] Eosinophils/100 WBC (Bld) 2.4 % 0-5 [facility] Glucose [Mass/Vol] 152 mg/dL 74-106 [facility] Comment on above: Fasting Glucose resu lt greater than or equal to 126 mg/dL suggests DIABETES MELLITUS per A.D.A. criteria. Neutrophils (Bld) [#/Vol] 3.5 10*3/uL 2.0-7.7 [facility] Neutrophils/100 WBC (Bld) 62.7 % 47-70 [facility] Potassium [Moles/Vol] 4.1 mmol/L 3.5-5.1 [facility] Protein [Mass/Vol] 7.2 g/dL 6.4-8.2 [facility] Sodium [Moles/Vol] 139 mmol/L 136-145 [facility] WBC (Bld) [#/Vol] 5.5 10*3/uL 4.4-11.0 [facility] Blood erythrocytes count (nu mber/volume)Ordered By: Viviana Mcgee on 01-28-2023 RBC (Bld) [#/Vol] 3.75 10*6/uL 4.2-5.4 [facility] Blood hemoglobin measurement (mass/volume)Ordered By: Viviana Mcgee on 01-28-2023 Hemoglobin (Bld) [Mass/Vol] 12.1 g/dL 12.0-15.0 [facility] Blood lymphocytes/100 leukoc ytesOrdered By: Viviana Mcgee on 01-28-2023 Lymphocytes/100 WBC (Bld) 23.2 % 19-41 [facility] Blood monocytes/100 leukocyt esOrdered By: Viviana Mcgee on 01-28-2023 Monocytes/100 WBC (Bld) 10.3 % 0-10 [facility] Blood platelet mean volumeOr dered By: Viviana Mcgee on 01-28-2023 Platelet mean volume (Bld) [Entitic vol] 9.3 fL 6.2-12.0 [facility] Determination of erythrocyte mean corpuscular volume (MCV)Ordered By: Viviana Mcgee on 01-28-2023 MCV (RBC) [Entitic vol] 100.5 fL 81-99 [facility] Hematocrit Auto (Bld) [Volum e fraction]Ordered By: Viviana Mcgee on 01-28-2023 Hematocrit (Bld) [Volume fraction] 37.7 % 37-47 [facility] Laboratory - Chemistry and C hemistry - challengeOrdered By: Viviana Mcgee on 01-28-2023 ALP [Catalytic activity/Vol] 107 U/L 45-117 [facility] ALT [Catalytic activity/Vol] 17 U/L 13-56 [facility] CO2 [Moles/Vol] 26.0 mmol/L 21.0-32.0 [facility] Globulin (S) [Mass/Vol] 3.8 g/dL 2.2-4.2 [facility] Urea nitrogen/Creatinine [Mass ratio] 13.7 mg/mg 10-20 [facility] Laboratory - Hematology and Cell countsOrdered By: Viviana Mcgee on 01-28-2023 Erythrocyte distribution width (RBC) [Entitic vol] 45.0 fL 35.1-43.9 [facility] Erythrocyte distribution width (RBC) [Ratio] 12.2 % 11.6-14.6 [facility] Immature granulocytes/100 WBC (Bld) 0.500 % 0.0-0.9 [facility] Comment on above: IG% - Immature Granu locytes (promyelocytes, myelocytes and metamyelocytes) > 1% indicates that a LEFT SHIFT is Present. MCH (RBC) [Entitic mass] 32.3 pg 27.0-32.0 [facility] Nucleated RBC/100 WBC (Bld) [Ratio] 0 % 0-5 [facility] MCHC Auto (RBC) [Mass/Vol]Or dered By: Viviana Mcgee on 01-28-2023 MCHC (RBC) [Mass/Vol] 32.1 g/dL 32-36 [facility] No Panel InformationOrdered By: Viviana Mcgee on 01-28-2023 Estimated GFR (MDRD) Amer 74 mL/min >60 [facility] Comment on above: GFR Calc Estimated GFR (MDRD) Non-Af Amer 61 mL/min >60 [facility] Comment on above: Non- GFR Calc Platelets bldOrdered By: Reaz Mcgee on 01-28-2023 Platelets (Bld) [#/Vol] 292 10*3/uL 150-450 [facility] Serum or plasma albumin fiona urement (mass/volume)Ordered By: Viviana Mcgee on 01-28-2023 Albumin [Mass/Vol] 3.4 g/dL 3.2-5.0 [facility] Serum or plasma albumin/glob ulin mass ratioOrdered By: Viviana Mcgee on 01-28-2023 Albumin/Globulin [Mass ratio] 0.9 {ratio} 0.9-2.4 [facility] Serum or plasma calcium fiona urement (mass/volume)Ordered By: Viviana Mcgee on 01-28-2023 Calcium [Mass/Vol] 9.0 mg/dL 8.5-10.1 [facility] Serum or plasma creatinine m easurement (mass/volume)Ordered By: Viviana Mcgee on 01-28-2023 Creatinine [Mass/Vol] 0.95 mg/dL 0.55-1.02 [facility] Comment on above: The validity of the calculated GFR & GFRAA in patients over 70 years has not been determined. Clinical correlation is essential. Serum or plasma urea nitroge n measurement (mass/volume)Ordered By: Viviana Mcgee on 01-28-2023 Urea nitrogen [Mass/Vol] 13 mg/dL 7-18 [facility] Thin prep Papanicolaou smear with manual screeningOrdered By: Viviana Mcgee on 01-28-2023 Thin prep Papanicolaou smear with manual screening 10 U/L 15-37 [facility] Thin prep Papanicolaou smear with manual screening 4 5-15 [facility] No Panel InformationOrdered By: Zachary Cruz on 01-26-2023 Estimated GFR (MDRD) Amer 59 mL/min >60 [facility] Comment on above: GFR Calc Estimated GFR (MDRD) Non-Af Amer 48 mL/min >60 [facility] Comment on above: Non- GFR Calc Serum or plasma creatinine m easurement (mass/volume)Ordered By: Zachary Cruz on 01-26-2023 Creatinine [Mass/Vol] 1.16 mg/dL 0.55-1.02 [facility] Comment on above: The validity of the calculated GFR & GFRAA in patients over 70 years has not been determined. Clinical correlation is essential. Absolute lymphocyte countOrd ered By: Alex Weir on 12-24-2022 Lymphocytes Auto (Unsp spec) [#/Vol] 1.57 10*3/uL 0.83-4.51 [facility] Basophil percentageOrdered B y: Alex Weir on 12-24-2022 Basophils/100 WBC (Bld) 1.0 % 0-1 [facility] Bilirubin [Mass/Vol] 0.30 mg/dL 0.20-1.00 [facility] Comment on above: For patients on eltr ombopag therapy, use of Dimension Mays TBIL is not recommended. Chloride [Moles/Vol] 108 mmol/L 98-107 [facility] Eosinophils/100 WBC (Bld) 2.7 % 0-5 [facility] Glucose [Mass/Vol] 133 mg/dL 74-106 [facility] Comment on above: Fasting Glucose resu lt greater than or equal to 126 mg/dL suggests DIABETES MELLITUS per A.D.A. criteria. Neutrophils (Bld) [#/Vol] 3.9 10*3/uL 2.0-7.7 [facility] Neutrophils/100 WBC (Bld) 61.5 % 47-70 [facility] Potassium [Moles/Vol] 4.1 mmol/L 3.5-5.1 [facility] Protein [Mass/Vol] 7.6 g/dL 6.4-8.2 [facility] Sodium [Moles/Vol] 140 mmol/L 136-145 [facility] WBC (Bld) [#/Vol] 6.3 10*3/uL 4.4-11.0 [facility] Blood erythrocytes count (nu mber/volume)Ordered By: Alex Weir on 12-24-2022 RBC (Bld) [#/Vol] 3.99 10*6/uL 4.2-5.4 [facility] Blood hemoglobin measurement (mass/volume)Ordered By: Alex Weir on 12-24-2022 Hemoglobin (Bld) [Mass/Vol] 12.8 g/dL 12.0-15.0 [facility] Blood lymphocytes/100 leukoc ytesOrdered By: Alex Weir on 12-24-2022 Lymphocytes/100 WBC (Bld) 25.1 % 19-41 [facility] Blood monocytes/100 leukocyt esOrdered By: Alex Weir on 12-24-2022 Monocytes/100 WBC (Bld) 9.4 % 0-10 [facility] Blood platelet mean volumeOr dered By: Alex Weir on 12-24-2022 Platelet mean volume (Bld) [Entitic vol] 9.4 fL 6.2-12.0 [facility] Determination of erythrocyte mean corpuscular volume (MCV)Ordered By: Alex Weir on 12-24-2022 MCV (RBC) [Entitic vol] 101.0 fL 81-99 [facility] Hematocrit Auto (Bld) [Volum e fraction]Ordered By: Alex Weir on 12-24-2022 Hematocrit (Bld) [Volume fraction] 40.3 % 37-47 [facility] Laboratory - Chemistry and C hemistry - challengeOrdered By: Alex Weir on 12-24-2022 ALP [Catalytic activity/Vol] 108 U/L 45-117 [facility] ALT [Catalytic activity/Vol] 16 U/L 13-56 [facility] CO2 [Moles/Vol] 27.0 mmol/L 21.0-32.0 [facility] Globulin (S) [Mass/Vol] 3.8 g/dL 2.2-4.2 [facility] Urea nitrogen/Creatinine [Mass ratio] 16.5 mg/mg 10-20 [facility] Laboratory - Hematology and Cell countsOrdered By: Alex Weir on 12-24-2022 Erythrocyte distribution width (RBC) [Entitic vol] 46.8 fL 35.1-43.9 [facility] Erythrocyte distribution width (RBC) [Ratio] 12.6 % 11.6-14.6 [facility] Immature granulocytes/100 WBC (Bld) 0.300 % 0.0-0.9 [facility] Comment on above: IG% - Immature Granu locytes (promyelocytes, myelocytes and metamyelocytes) > 1% indicates that a LEFT SHIFT is Present. MCH (RBC) [Entitic mass] 32.1 pg 27.0-32.0 [facility] Nucleated RBC/100 WBC (Bld) [Ratio] 0 % 0-5 [facility] MCHC Auto (RBC) [Mass/Vol]Or dered By: Alex Weir on 12-24-2022 MCHC (RBC) [Mass/Vol] 31.8 g/dL 32-36 [facility] No Panel InformationOrdered By: Alex Weir on 12-24-2022 Estimated GFR (MDRD) Amer 78 mL/min >60 [facility] Comment on above: GFR Calc Estimated GFR (MDRD) Non-Af Amer 64 mL/min >60 [facility] Comment on above: Non- GFR Calc Platelets bldOrdered By: Kunal Weir on 12-24-2022 Platelets (Bld) [#/Vol] 308 10*3/uL 150-450 [facility] Serum or plasma albumin fiona urement (mass/volume)Ordered By: Alex Weir on 12-24-2022 Albumin [Mass/Vol] 3.8 g/dL 3.2-5.0 [facility] Serum or plasma albumin/glob ulin mass ratioOrdered By: Alex Weir on 12-24-2022 Albumin/Globulin [Mass ratio] 1.0 {ratio} 0.9-2.4 [facility] Serum or plasma calcium fiona urement (mass/volume)Ordered By: Alex Weir on 12-24-2022 Calcium [Mass/Vol] 9.0 mg/dL 8.5-10.1 [facility] Serum or plasma creatinine m easurement (mass/volume)Ordered By: Alex Weir on 12-24-2022 Creatinine [Mass/Vol] 0.91 mg/dL 0.55-1.02 [facility] Comment on above: The validity of the calculated GFR & GFRAA in patients over 70 years has not been determined. Clinical correlation is essential. Serum or plasma urea nitroge n measurement (mass/volume)Ordered By: Alex Weir on 12-24-2022 Urea nitrogen [Mass/Vol] 15 mg/dL 7-18 [facility] Thin prep Papanicolaou smear with manual screeningOrdered By: Alex Weir on 12-24-2022 Thin prep Papanicolaou smear with manual screening 11 U/L 15-37 [facility] Thin prep Papanicolaou smear with manual screening 5 5-15 [facility] Absolute lymphocyte countOrd ered By: Alex Weir on 11-26-2022 Lymphocytes Auto (Unsp spec) [#/Vol] 1.32 10*3/uL 0.83-4.51 [facility] Basophil percentageOrdered B y: Alex Weir on 11-26-2022 Basophils/100 WBC (Bld) 1.6 % 0-1 [facility] Bilirubin [Mass/Vol] 0.30 mg/dL 0.20-1.00 [facility] Comment on above: For patients on eltr ombopag therapy, use of Dimension Mays TBIL is not recommended. Chloride [Moles/Vol] 109 mmol/L 98-107 [facility] Eosinophils/100 WBC (Bld) 4.9 % 0-5 [facility] Glucose [Mass/Vol] 132 mg/dL 74-106 [facility] Comment on above: Fasting Glucose resu lt greater than or equal to 126 mg/dL suggests DIABETES MELLITUS per A.D.A. criteria. Neutrophils (Bld) [#/Vol] 2.7 10*3/uL 2.0-7.7 [facility] Neutrophils/100 WBC (Bld) 55.1 % 47-70 [facility] Potassium [Moles/Vol] 4.1 mmol/L 3.5-5.1 [facility] Protein [Mass/Vol] 6.9 g/dL 6.4-8.2 [facility] Sodium [Moles/Vol] 139 mmol/L 136-145 [facility] WBC (Bld) [#/Vol] 4.9 10*3/uL 4.4-11.0 [facility] Blood erythrocytes count (nu mber/volume)Ordered By: Alex Weir on 11-26-2022 RBC (Bld) [#/Vol] 3.71 10*6/uL 4.2-5.4 [facility] Blood hemoglobin measurement (mass/volume)Ordered By: Alex Weir on 11-26-2022 Hemoglobin (Bld) [Mass/Vol] 12.1 g/dL 12.0-15.0 [facility] Blood lymphocytes/100 leukoc ytesOrdered By: Alex Weir on 11-26-2022 Lymphocytes/100 WBC (Bld) 27.1 % 19-41 [facility] Blood monocytes/100 leukocyt esOrdered By: Alex Weir on 11-26-2022 Monocytes/100 WBC (Bld) 11.1 % 0-10 [facility] Blood platelet mean volumeOr dered By: Alex Weir on 11-26-2022 Platelet mean volume (Bld) [Entitic vol] 9.2 fL 6.2-12.0 [facility] Determination of erythrocyte mean corpuscular volume (MCV)Ordered By: Alex Weir on 11-26-2022 MCV (RBC) [Entitic vol] 96.2 fL 81-99 [facility] Hematocrit Auto (Bld) [Volum e fraction]Ordered By: Alex Weir on 11-26-2022 Hematocrit (Bld) [Volume fraction] 35.7 % 37-47 [facility] Laboratory - Chemistry and C hemistry - challengeOrdered By: Alex Weir on 11-26-2022 ALP [Catalytic activity/Vol] 104 U/L 45-117 [facility] ALT [Catalytic activity/Vol] 16 U/L 13-56 [facility] CO2 [Moles/Vol] 23.0 mmol/L 21.0-32.0 [facility] Globulin (S) [Mass/Vol] 3.5 g/dL 2.2-4.2 [facility] Urea nitrogen/Creatinine [Mass ratio] 18.3 mg/mg 10-20 [facility] Laboratory - Hematology and Cell countsOrdered By: Alex Weir on 11-26-2022 Erythrocyte distribution width (RBC) [Entitic vol] 44.2 fL 35.1-43.9 [facility] Erythrocyte distribution width (RBC) [Ratio] 12.6 % 11.6-14.6 [facility] Immature granulocytes/100 WBC (Bld) 0.200 % 0.0-0.9 [facility] Comment on above: IG% - Immature Granu locytes (promyelocytes, myelocytes and metamyelocytes) > 1% indicates that a LEFT SHIFT is Present. MCH (RBC) [Entitic mass] 32.6 pg 27.0-32.0 [facility] Nucleated RBC/100 WBC (Bld) [Ratio] 0 % 0-5 [facility] MCHC Auto (RBC) [Mass/Vol]Or dered By: Alex Weir on 11-26-2022 MCHC (RBC) [Mass/Vol] 33.9 g/dL 32-36 [facility] No Panel InformationOrdered By: Alex Weir on 11-26-2022 Estimated GFR (MDRD) Amer 81 mL/min >60 [facility] Comment on above: GFR Calc Estimated GFR (MDRD) Non-Af Amer 67 mL/min >60 [facility] Comment on above: Non- GFR Calc Platelets bldOrdered By: Kunal Weir on 11-26-2022 Platelets (Bld) [#/Vol] 264 10*3/uL 150-450 [facility] Serum or plasma albumin fiona urement (mass/volume)Ordered By: Alex Weir on 11-26-2022 Albumin [Mass/Vol] 3.4 g/dL 3.2-5.0 [facility] Serum or plasma albumin/glob ulin mass ratioOrdered By: Alex Weir on 11-26-2022 Albumin/Globulin [Mass ratio] 1.0 {ratio} 0.9-2.4 [facility] Serum or plasma calcium fiona urement (mass/volume)Ordered By: Alex Weir on 11-26-2022 Calcium [Mass/Vol] 8.8 mg/dL 8.5-10.1 [facility] Serum or plasma creatinine m easurement (mass/volume)Ordered By: Alex Weir on 11-26-2022 Creatinine [Mass/Vol] 0.88 mg/dL 0.55-1.02 [facility] Comment on above: The validity of the calculated GFR & GFRAA in patients over 70 years has not been determined. Clinical correlation is essential. Serum or plasma urea nitroge n measurement (mass/volume)Ordered By: Alex Weir on 11-26-2022 Urea nitrogen [Mass/Vol] 16 mg/dL 7-18 [facility] Thin prep Papanicolaou smear with manual screeningOrdered By: Alex Weir on 11-26-2022 Thin prep Papanicolaou smear with manual screening 11 U/L 15-37 [facility] Thin prep Papanicolaou smear with manual screening 7 5-15 [facility] Absolute lymphocyte countOrd ered By: Viviana Mcgee on 11-09-2022 Lymphocytes Auto (Unsp spec) [#/Vol] 1.33 10*3/uL 0.83-4.51 [facility] Basophil percentageOrdered B y: Viviana Mcgee on 11-09-2022 Basophils/100 WBC (Bld) 1.1 % 0-1 [facility] Bilirubin [Mass/Vol] 0.30 mg/dL 0.20-1.00 [facility] Comment on above: For patients on eltr ombopag therapy, use of Dimension Mays TBIL is not recommended. Chloride [Moles/Vol] 111 mmol/L 98-107 [facility] Eosinophils/100 WBC (Bld) 5.1 % 0-5 [facility] Glucose [Mass/Vol] 135 mg/dL 74-106 [facility] Comment on above: Fasting Glucose resu lt greater than or equal to 126 mg/dL suggests DIABETES MELLITUS per A.D.A. criteria. Neutrophils (Bld) [#/Vol] 2.5 10*3/uL 2.0-7.7 [facility] Neutrophils/100 WBC (Bld) 52.7 % 47-70 [facility] Potassium [Moles/Vol] 4.2 mmol/L 3.5-5.1 [facility] Protein [Mass/Vol] 6.8 g/dL 6.4-8.2 [facility] Sodium [Moles/Vol] 141 mmol/L 136-145 [facility] WBC (Bld) [#/Vol] 4.7 10*3/uL 4.4-11.0 [facility] Blood erythrocytes count (nu mber/volume)Ordered By: Viviana Mcgee on 11-09-2022 RBC (Bld) [#/Vol] 3.77 10*6/uL 4.2-5.4 [facility] Blood hemoglobin measurement (mass/volume)Ordered By: Viviana Mcgee on 11-09-2022 Hemoglobin (Bld) [Mass/Vol] 11.9 g/dL 12.0-15.0 [facility] Blood lymphocytes/100 leukoc ytesOrdered By: levy Mcgee on 11-09-2022 Lymphocytes/100 WBC (Bld) 28.2 % 19-41 [facility] Blood monocytes/100 leukocyt esOrdered By: [facility] on 11-09-2022 Monocytes/100 WBC (Bld) 12.7 % 0-10 [facility] Blood platelet mean volumeOr dered By: levy Mcgee on 11-09-2022 Platelet mean volume (Bld) [Entitic vol] 9.0 fL 6.2-12.0 [facility] Determination of erythrocyte mean corpuscular volume (MCV)Ordered By: [facility] [facility] Mcgee on 11-09-2022 MCV (RBC) [Entitic vol] 97.3 fL 81-99 [facility] Hematocrit Auto (Bld) [Volum e fraction]Ordered By: [facility] Mcgee on 11-09-2022 Hematocrit (Bld) [Volume fraction] 36.7 % 37-47 [facility] Laboratory - Chemistry and C hemistry - challengeOrdered By: levy Mcgee on 11-09-2022 ALP [Catalytic activity/Vol] 103 U/L 45-117 [facility] ALT [Catalytic activity/Vol] 15 U/L 13-56 [facility] CO2 [Moles/Vol] 24.0 mmol/L 21.0-32.0 [facility] Globulin (S) [Mass/Vol] 3.6 g/dL 2.2-4.2 [facility] Urea nitrogen/Creatinine [Mass ratio] 15.7 mg/mg 10-20 [facility] Laboratory - Hematology and Cell countsOrdered By: [place] [facility] Mcgee on 11-09-2022 Erythrocyte distribution width (RBC) [Entitic vol] 45.0 fL 35.1-43.9 [facility] Erythrocyte distribution width (RBC) [Ratio] 12.6 % 11.6-14.6 [facility] Immature granulocytes/100 WBC (Bld) 0.200 % 0.0-0.9 [facility] Comment on above: IG% - Immature Granu locytes (promyelocytes, myelocytes and metamyelocytes) > 1% indicates that a LEFT SHIFT is Present. MCH (RBC) [Entitic mass] 31.6 pg 27.0-32.0 [facility] Nucleated RBC/100 WBC (Bld) [Ratio] 0 % 0-5 [facility] MCHC Auto (RBC) [Mass/Vol]Or dered By: Viviana Mcgee on 11-09-2022 MCHC (RBC) [Mass/Vol] 32.4 g/dL 32-36 [facility] No Panel InformationOrdered By: Viviana Mcgee on 11-09-2022 Estimated GFR (MDRD) Amer 79 mL/min >60 [facility] Comment on above: GFR Calc Estimated GFR (MDRD) Non-Af Amer 66 mL/min >60 [facility] Comment on above: Non- GFR Calc Platelets bldOrdered By: Reza Mcgee on 11-09-2022 Platelets (Bld) [#/Vol] 256 10*3/uL 150-450 [facility] Serum or plasma albumin fiona urement (mass/volume)Ordered By: Viviana Mcgee on 11-09-2022 Albumin [Mass/Vol] 3.2 g/dL 3.2-5.0 [facility] Serum or plasma albumin/glob ulin mass ratioOrdered By: Viviana Mcgee on 11-09-2022 Albumin/Globulin [Mass ratio] 0.9 {ratio} 0.9-2.4 [facility] Serum or plasma calcium fiona urement (mass/volume)Ordered By: Viviana Mcgee on 11-09-2022 Calcium [Mass/Vol] 8.7 mg/dL 8.5-10.1 [facility] Serum or plasma creatinine m easurement (mass/volume)Ordered By: Viviana Mcgee on 11-09-2022 Creatinine [Mass/Vol] 0.89 mg/dL 0.55-1.02 [facility] Comment on above: The validity of the calculated GFR & GFRAA in patients over 70 years has not been determined. Clinical correlation is essential. Serum or plasma urea nitroge n measurement (mass/volume)Ordered By: Viviana Mcgee on 11-09-2022 Urea nitrogen [Mass/Vol] 14 mg/dL -18 [facility] Thin prep Papanicolaou smear with manual screeningOrdered By: Viviana Mcgee on 11-09-2022 Thin prep Papanicolaou smear with manual screening 12 U/L 15-37 [facility] Thin prep Papanicolaou smear with manual screening 6 5-15 [facility] Absolute lymphocyte countOrd ered By: Alex Weir on 10-29-2022 Lymphocytes Auto (Unsp spec) [#/Vol] 1.55 10*3/uL 0.83-4.51 [facility] Basophil percentageOrdered B y: Alex Weir on 10-29-2022 Basophils/100 WBC (Bld) 1.3 % 0-1 [facility] Bilirubin [Mass/Vol] 0.30 mg/dL 0.20-1.00 [facility] Comment on above: For patients on eltr ombopag therapy, use of Dimension Mays TBIL is not recommended. Chloride [Moles/Vol] 107 mmol/L 98-107 [facility] Eosinophils/100 WBC (Bld) 4.6 % 0-5 [facility] Glucose [Mass/Vol] 112 mg/dL 74-106 [facility] Comment on above: Fasting Glucose resu lt from 100 to 125 mg/dL suggests IMPAIRED HOMEOSTASIS per A.D.A. criteria. Neutrophils (Bld) [#/Vol] 2.5 10*3/uL 2.0-7.7 [facility] Neutrophils/100 WBC (Bld) 51.6 % 47-70 [facility] Potassium [Moles/Vol] 4.3 mmol/L 3.5-5.1 [facility] Protein [Mass/Vol] 7.7 g/dL 6.4-8.2 [facility] Sodium [Moles/Vol] 138 mmol/L 136-145 [facility] WBC (Bld) [#/Vol] 4.8 10*3/uL 4.4-11.0 [facility] Blood erythrocytes count (nu mber/volume)Ordered By: Alex Weir on 10-29-2022 RBC (Bld) [#/Vol] 4.00 10*6/uL 4.2-5.4 [facility] Blood hemoglobin measurement (mass/volume)Ordered By: Alex Weir on 10-29-2022 Hemoglobin (Bld) [Mass/Vol] 13.2 g/dL 12.0-15.0 [facility] Blood lymphocytes/100 leukoc ytesOrdered By: Alex Weir on 10-29-2022 Lymphocytes/100 WBC (Bld) 32.6 % 19-41 [facility] Blood monocytes/100 leukocyt esOrdered By: Alex Weir on 10-29-2022 Monocytes/100 WBC (Bld) 9.7 % 0-10 [facility] Blood platelet mean volumeOr dered By: Alex Weir on 10-29-2022 Platelet mean volume (Bld) [Entitic vol] 9.1 fL 6.2-12.0 [facility] Determination of erythrocyte mean corpuscular volume (MCV)Ordered By: Alex Weir on 10-29-2022 MCV (RBC) [Entitic vol] 97.5 fL 81-99 [facility] Hematocrit Auto (Bld) [Volum e fraction]Ordered By: Alex Weir on 10-29-2022 Hematocrit (Bld) [Volume fraction] 39.0 % 37-47 [facility] Laboratory - Chemistry and C hemistry - challengeOrdered By: Alex Weir on 10-29-2022 ALP [Catalytic activity/Vol] 109 U/L 45-117 [facility] ALT [Catalytic activity/Vol] 18 U/L 13-56 [facility] CO2 [Moles/Vol] 26.0 mmol/L 21.0-32.0 [facility] Globulin (S) [Mass/Vol] 3.9 g/dL 2.2-4.2 [facility] Urea nitrogen/Creatinine [Mass ratio] 18.0 mg/mg 10-20 [facility] Laboratory - Hematology and Cell countsOrdered By: Alex Weir on 10-29-2022 Erythrocyte distribution width (RBC) [Entitic vol] 45.5 fL 35.1-43.9 [facility] Erythrocyte distribution width (RBC) [Ratio] 12.7 % 11.6-14.6 [facility] Immature granulocytes/100 WBC (Bld) 0.200 % 0.0-0.9 [facility] Comment on above: IG% - Immature Granu locytes (promyelocytes, myelocytes and metamyelocytes) > 1% indicates that a LEFT SHIFT is Present. MCH (RBC) [Entitic mass] 33.0 pg 27.0-32.0 [facility] Nucleated RBC/100 WBC (Bld) [Ratio] 0 % 0-5 [facility] MCHC Auto (RBC) [Mass/Vol]Or dered By: Alex Weir on 10-29-2022 MCHC (RBC) [Mass/Vol] 33.8 g/dL 32-36 [facility] No Panel InformationOrdered By: Alex Weir on 10-29-2022 Estimated GFR (MDRD) Amer 70 mL/min >60 [facility] Comment on above: GFR Calc Estimated GFR (MDRD) Non-Af Amer 58 mL/min >60 [facility] Comment on above: Non- GFR Calc Platelets bldOrdered By: Kunal Weir on 10-29-2022 Platelets (Bld) [#/Vol] 282 10*3/uL 150-450 [facility] Serum or plasma albumin fiona urement (mass/volume)Ordered By: Alex Weir on 10-29-2022 Albumin [Mass/Vol] 3.8 g/dL 3.2-5.0 [facility] Serum or plasma albumin/glob ulin mass ratioOrdered By: Alex Weir on 10-29-2022 Albumin/Globulin [Mass ratio] 1.0 {ratio} 0.9-2.4 [facility] Serum or plasma calcium fiona urement (mass/volume)Ordered By: Alex Weir on 10-29-2022 Calcium [Mass/Vol] 9.1 mg/dL 8.5-10.1 [facility] Serum or plasma creatinine m easurement (mass/volume)Ordered By: Alex Weir on 10-29-2022 Creatinine [Mass/Vol] 1.00 mg/dL 0.55-1.02 [facility] Comment on above: The validity of the calculated GFR & GFRAA in patients over 70 years has not been determined. Clinical correlation is essential. Serum or plasma urea nitroge n measurement (mass/volume)Ordered By: Alex Weir on 10-29-2022 Urea nitrogen [Mass/Vol] 18 mg/dL 7-18 [facility] Thin prep Papanicolaou smear with manual screeningOrdered By: Alex Weir on 10-29-2022 Thin prep Papanicolaou smear with manual screening 15 U/L 15-37 [facility] Thin prep Papanicolaou smear with manual screening 5 5-15 [facility] Absolute lymphocyte countOrd ered By: Alex Weir on 09-24-2022 Lymphocytes Auto (Unsp spec) [#/Vol] 1.68 10*3/uL 0.83-4.51 [facility] Basophil percentageOrdered B y: Alex Weir on 09-24-2022 Basophils/100 WBC (Bld) 0.6 % 0-1 [facility] Bilirubin [Mass/Vol] 0.30 mg/dL 0.20-1.00 [facility] Comment on above: For patients on eltr ombopag therapy, use of Dimension Mays TBIL is not recommended. Chloride [Moles/Vol] 110 mmol/L 98-107 [facility] Eosinophils/100 WBC (Bld) 3.3 % 0-5 [facility] Glucose [Mass/Vol] 124 mg/dL 74-106 [facility] Comment on above: Fasting Glucose resu lt from 100 to 125 mg/dL suggests IMPAIRED HOMEOSTASIS per A.D.A. criteria. Neutrophils (Bld) [#/Vol] 2.8 10*3/uL 2.0-7.7 [facility] Neutrophils/100 WBC (Bld) 51.1 % 47-70 [facility] Potassium [Moles/Vol] 4.4 mmol/L 3.5-5.1 [facility] Protein [Mass/Vol] 7.1 g/dL 6.4-8.2 [facility] Sodium [Moles/Vol] 139 mmol/L 136-145 [facility] WBC (Bld) [#/Vol] 5.4 10*3/uL 4.4-11.0 [facility] Blood erythrocytes count (nu mber/volume)Ordered By: Alex Weir on 09-24-2022 RBC (Bld) [#/Vol] 3.82 10*6/uL 4.2-5.4 [facility] Blood hemoglobin measurement (mass/volume)Ordered By: Alex Weir on 09-24-2022 Hemoglobin (Bld) [Mass/Vol] 12.1 g/dL 12.0-15.0 [facility] Blood lymphocytes/100 leukoc ytesOrdered By: Alex Weir on 09-24-2022 Lymphocytes/100 WBC (Bld) 31.2 % 19-41 [facility] Blood monocytes/100 leukocyt esOrdered By: Alex Weir on 09-24-2022 Monocytes/100 WBC (Bld) 13.4 % 0-10 [facility] Blood platelet mean volumeOr dered By: Alex Weir on 09-24-2022 Platelet mean volume (Bld) [Entitic vol] 8.9 fL 6.2-12.0 [facility] Determination of erythrocyte mean corpuscular volume (MCV)Ordered By: Alex Weir on 09-24-2022 MCV (RBC) [Entitic vol] 95.5 fL 81-99 [facility] Hematocrit Auto (Bld) [Volum e fraction]Ordered By: Alex Weir on 09-24-2022 Hematocrit (Bld) [Volume fraction] 36.5 % 37-47 [facility] Laboratory - Chemistry and C hemistry - challengeOrdered By: Alex Weir on 09-24-2022 ALP [Catalytic activity/Vol] 115 U/L 45-117 [facility] ALT [Catalytic activity/Vol] 20 U/L 13-56 [facility] CO2 [Moles/Vol] 23.0 mmol/L 21.0-32.0 [facility] Globulin (S) [Mass/Vol] 3.9 g/dL 2.2-4.2 [facility] Urea nitrogen/Creatinine [Mass ratio] 18.8 mg/mg 10-20 [facility] Laboratory - Hematology and Cell countsOrdered By: Alex Weir on 09-24-2022 Erythrocyte distribution width (RBC) [Entitic vol] 45.3 fL 35.1-43.9 [facility] Erythrocyte distribution width (RBC) [Ratio] 13.0 % 11.6-14.6 [facility] Immature granulocytes/100 WBC (Bld) 0.400 % 0.0-0.9 [facility] Comment on above: IG% - Immature Granu locytes (promyelocytes, myelocytes and metamyelocytes) > 1% indicates that a LEFT SHIFT is Present. MCH (RBC) [Entitic mass] 31.7 pg 27.0-32.0 [facility] Nucleated RBC/100 WBC (Bld) [Ratio] 0 % 0-5 [facility] MCHC Auto (RBC) [Mass/Vol]Or dered By: Alex Weir on 09-24-2022 MCHC (RBC) [Mass/Vol] 33.2 g/dL 32-36 [facility] No Panel InformationOrdered By: Alex Weir on 09-24-2022 Estimated GFR (MDRD) Amer 84 mL/min >60 [facility] Comment on above: GFR Calc Estimated GFR (MDRD) Non-Af Amer 69 mL/min >60 [facility] Comment on above: Non- GFR Calc Thyroid Stimulating Hormone (TSH) 2.25 uIU/mL 0.358-3.74 [facility] Platelets bldOrdered By: Kunal Weir on 09-24-2022 Platelets (Bld) [#/Vol] 286 10*3/uL 150-450 [facility] Serum or plasma albumin fiona urement (mass/volume)Ordered By: Alex Weir on 09-24-2022 Albumin [Mass/Vol] 3.2 g/dL 3.2-5.0 [facility] Serum or plasma albumin/glob ulin mass ratioOrdered By: Alex Weir on 09-24-2022 Albumin/Globulin [Mass ratio] 0.8 {ratio} 0.9-2.4 [facility] Serum or plasma calcium fiona urement (mass/volume)Ordered By: Alex Weir on 09-24-2022 Calcium [Mass/Vol] 8.6 mg/dL 8.5-10.1 [facility] Serum or plasma creatinine m easurement (mass/volume)Ordered By: Alex Weir on 09-24-2022 Creatinine [Mass/Vol] 0.85 mg/dL 0.55-1.02 [facility] Comment on above: The validity of the calculated GFR & GFRAA in patients over 70 years has not been determined. Clinical correlation is essential. Serum or plasma urea nitroge n measurement (mass/volume)Ordered By: Alex Weir on 09-24-2022 Urea nitrogen [Mass/Vol] 16 mg/dL 7-18 [facility] Thin prep Papanicolaou smear with manual screeningOrdered By: Alex Weir on 09-24-2022 Thin prep Papanicolaou smear with manual screening 14 U/L 15-37 [facility] Thin prep Papanicolaou smear with manual screening 6 5-15 [facility] Absolute lymphocyte countOrd ered By: Alex Weir on 08-27-2022 Lymphocytes Auto (Unsp spec) [#/Vol] 1.65 10*3/uL 0.83-4.51 [facility] Basophil percentageOrdered B y: Alex Weir on 08-27-2022 Basophils/100 WBC (Bld) 1.1 % 0-1 [facility] Bilirubin [Mass/Vol] 0.20 mg/dL 0.20-1.00 [facility] Comment on above: For patients on eltr ombopag therapy, use of Dimension Mays TBIL is not recommended. Chloride [Moles/Vol] 110 mmol/L 98-107 [facility] Eosinophils/100 WBC (Bld) 3.6 % 0-5 [facility] Glucose [Mass/Vol] 105 mg/dL 74-106 [facility] Comment on above: Fasting Glucose resu lt from 100 to 125 mg/dL suggests IMPAIRED HOMEOSTASIS per A.D.A. criteria. Neutrophils (Bld) [#/Vol] 2.7 10*3/uL 2.0-7.7 [facility] Neutrophils/100 WBC (Bld) 50.9 % 47-70 [facility] Potassium [Moles/Vol] 4.5 mmol/L 3.5-5.1 [facility] Protein [Mass/Vol] 6.8 g/dL 6.4-8.2 [facility] Sodium [Moles/Vol] 142 mmol/L 136-145 [facility] WBC (Bld) [#/Vol] 5.3 10*3/uL 4.4-11.0 [facility] Blood erythrocytes count (nu mber/volume)Ordered By: Alex Weir on 08-27-2022 RBC (Bld) [#/Vol] 3.84 10*6/uL 4.2-5.4 [facility] Blood hemoglobin measurement (mass/volume)Ordered By: Alex Weir on 08-27-2022 Hemoglobin (Bld) [Mass/Vol] 12.0 g/dL 12.0-15.0 [facility] Blood lymphocytes/100 leukoc ytesOrdered By: Alex Weir on 08-27-2022 Lymphocytes/100 WBC (Bld) 31.4 % 19-41 [facility] Blood monocytes/100 leukocyt esOrdered By: Alex Weir on 08-27-2022 Monocytes/100 WBC (Bld) 12.6 % 0-10 [facility] Blood platelet mean volumeOr dered By: Alex Weir on 08-27-2022 Platelet mean volume (Bld) [Entitic vol] 9.6 fL 6.2-12.0 [facility] Determination of erythrocyte mean corpuscular volume (MCV)Ordered By: Alex Weir on 08-27-2022 MCV (RBC) [Entitic vol] 95.6 fL 81-99 [facility] Hematocrit Auto (Bld) [Volum e fraction]Ordered By: Alex Weir on 08-27-2022 Hematocrit (Bld) [Volume fraction] 36.7 % 37-47 [facility] Laboratory - Chemistry and C hemistry - challengeOrdered By: Alex Weir on 08-27-2022 ALP [Catalytic activity/Vol] 94 U/L 45-117 [facility] ALT [Catalytic activity/Vol] 19 U/L 13-56 [facility] CO2 [Moles/Vol] 22.0 mmol/L 21.0-32.0 [facility] Globulin (S) [Mass/Vol] 3.4 g/dL 2.2-4.2 [facility] Urea nitrogen/Creatinine [Mass ratio] 24.6 mg/mg 10-20 [facility] Laboratory - Hematology and Cell countsOrdered By: Alex Weir on 08-27-2022 Erythrocyte distribution width (RBC) [Entitic vol] 44.7 fL 35.1-43.9 [facility] Erythrocyte distribution width (RBC) [Ratio] 12.8 % 11.6-14.6 [facility] Immature granulocytes/100 WBC (Bld) 0.400 % 0.0-0.9 [facility] Comment on above: IG% - Immature Granu locytes (promyelocytes, myelocytes and metamyelocytes) > 1% indicates that a LEFT SHIFT is Present. MCH (RBC) [Entitic mass] 31.3 pg 27.0-32.0 [facility] Nucleated RBC/100 WBC (Bld) [Ratio] 0 % 0-5 [facility] MCHC Auto (RBC) [Mass/Vol]Or dered By: Alex Weir on 08-27-2022 MCHC (RBC) [Mass/Vol] 32.7 g/dL 32-36 [facility] No Panel InformationOrdered By: Alex Weir on 08-27-2022 Estimated GFR (MDRD) Amer 84 mL/min >60 [facility] Comment on above: GFR Calc Estimated GFR (MDRD) Non-Af Amer 69 mL/min >60 [facility] Comment on above: Non- GFR Calc Platelets bldOrdered By: Kunal Weir on 08-27-2022 Platelets (Bld) [#/Vol] 270 10*3/uL 150-450 [facility] Serum or plasma albumin fiona urement (mass/volume)Ordered By: Alex Weir on 08-27-2022 Albumin [Mass/Vol] 3.4 g/dL 3.2-5.0 [facility] Serum or plasma albumin/glob ulin mass ratioOrdered By: Alex Weir on 08-27-2022 Albumin/Globulin [Mass ratio] 1.0 {ratio} 0.9-2.4 [facility] Serum or plasma calcium fiona urement (mass/volume)Ordered By: Alex Weir on 08-27-2022 Calcium [Mass/Vol] 8.7 mg/dL 8.5-10.1 [facility] Serum or plasma creatinine m easurement (mass/volume)Ordered By: Alex Weir on 08-27-2022 Creatinine [Mass/Vol] 0.85 mg/dL 0.55-1.02 [facility] Comment on above: The validity of the calculated GFR & GFRAA in patients over 70 years has not been determined. Clinical correlation is essential. Serum or plasma urea nitroge n measurement (mass/volume)Ordered By: Alex Weir on 08-27-2022 Urea nitrogen [Mass/Vol] 21 mg/dL 7-18 [facility] Thin prep Papanicolaou smear with manual screeningOrdered By: Alex Weir on 08-27-2022 Thin prep Papanicolaou smear with manual screening 11 U/L 15-37 [facility] Thin prep Papanicolaou smear with manual screening 10 5-15 [facility] Absolute lymphocyte countOrd ered By: Alex Weir on 06-25-2022 Lymphocytes Auto (Unsp spec) [#/Vol] 1.43 10*3/uL 0.83-4.51 [facility] Basophil percentageOrdered B y: Alex Weir on 06-25-2022 Basophils/100 WBC (Bld) 0.8 % 0-1 [facility] Bilirubin [Mass/Vol] 0.30 mg/dL 0.20-1.00 [facility] Comment on above: For patients on eltr ombopag therapy, use of Dimension Mays TBIL is not recommended. Chloride [Moles/Vol] 108 mmol/L 98-107 [facility] Eosinophils/100 WBC (Bld) 3.2 % 0-5 [facility] Glucose [Mass/Vol] 122 mg/dL 74-106 [facility] Comment on above: Fasting Glucose resu lt from 100 to 125 mg/dL suggests IMPAIRED HOMEOSTASIS per A.D.A. criteria. Neutrophils (Bld) [#/Vol] 2.7 10*3/uL 2.0-7.7 [facility] Neutrophils/100 WBC (Bld) 54.1 % 47-70 [facility] Potassium [Moles/Vol] 4.5 mmol/L 3.5-5.1 [facility] Protein [Mass/Vol] 6.4 g/dL 6.4-8.2 [facility] Sodium [Moles/Vol] 141 mmol/L 136-145 [facility] WBC (Bld) [#/Vol] 5.0 10*3/uL 4.4-11.0 [facility] Blood erythrocytes count (nu mber/volume)Ordered By: Alex Weir on 06-25-2022 RBC (Bld) [#/Vol] 3.96 10*6/uL 4.2-5.4 [facility] Blood hemoglobin measurement (mass/volume)Ordered By: Alex Weir on 06-25-2022 Hemoglobin (Bld) [Mass/Vol] 12.0 g/dL 12.0-15.0 [facility] Blood lymphocytes/100 leukoc ytesOrdered By: Alex Weir on 06-25-2022 Lymphocytes/100 WBC (Bld) 28.8 % 19-41 [facility] Blood monocytes/100 leukocyt esOrdered By: Alex Weir on 06-25-2022 Monocytes/100 WBC (Bld) 12.7 % 0-10 [facility] Blood platelet mean volumeOr dered By: Alex Weir on 06-25-2022 Platelet mean volume (Bld) [Entitic vol] 9.6 fL 6.2-12.0 [facility] Determination of erythrocyte mean corpuscular volume (MCV)Ordered By: Alex Weir on 06-25-2022 MCV (RBC) [Entitic vol] 92.2 fL 81-99 [facility] Hematocrit Auto (Bld) [Volum e fraction]Ordered By: Alex Weir on 06-25-2022 Hematocrit (Bld) [Volume fraction] 36.5 % 37-47 [facility] Laboratory - Chemistry and C hemistry - challengeOrdered By: Alex Weir on 06-25-2022 ALP [Catalytic activity/Vol] 94 U/L 45-117 [facility] ALT [Catalytic activity/Vol] 17 U/L 13-56 [facility] CO2 [Moles/Vol] 25.0 mmol/L 21.0-32.0 [facility] Globulin (S) [Mass/Vol] 3.2 g/dL 2.2-4.2 [facility] Urea nitrogen/Creatinine [Mass ratio] 15.6 mg/mg 10-20 [facility] Laboratory - Hematology and Cell countsOrdered By: Alex Weir on 06-25-2022 Erythrocyte distribution width (RBC) [Entitic vol] 47.5 fL 35.1-43.9 [facility] Erythrocyte distribution width (RBC) [Ratio] 14.1 % 11.6-14.6 [facility] Immature granulocytes/100 WBC (Bld) 0.400 % 0.0-0.9 [facility] Comment on above: IG% - Immature Granu locytes (promyelocytes, myelocytes and metamyelocytes) > 1% indicates that a LEFT SHIFT is Present. MCH (RBC) [Entitic mass] 30.3 pg 27.0-32.0 [facility] Nucleated RBC/100 WBC (Bld) [Ratio] 0 % 0-5 [facility] MCHC Auto (RBC) [Mass/Vol]Or dered By: Alex Weir on 06-25-2022 MCHC (RBC) [Mass/Vol] 32.9 g/dL 32-36 [facility] No Panel InformationOrdered By: Alex Weir on 06-25-2022 Estimated GFR (MDRD) Amer 86 mL/min >60 [facility] Comment on above: GFR Calc Estimated GFR (MDRD) Non-Af Amer 71 mL/min >60 [facility] Comment on above: Non- GFR Calc Platelets bldOrdered By: Kunal Weir on 06-25-2022 Platelets (Bld) [#/Vol] 237 10*3/uL 150-450 [facility] Serum or plasma albumin fiona urement (mass/volume)Ordered By: Alex Weir on 06-25-2022 Albumin [Mass/Vol] 3.2 g/dL 3.2-5.0 [facility] Serum or plasma albumin/glob ulin mass ratioOrdered By: Alex Weir on 06-25-2022 Albumin/Globulin [Mass ratio] 1.0 {ratio} 0.9-2.4 [facility] Serum or plasma calcium fiona urement (mass/volume)Ordered By: Alex Weir on 06-25-2022 Calcium [Mass/Vol] 9.0 mg/dL 8.5-10.1 [facility] Serum or plasma creatinine m easurement (mass/volume)Ordered By: Alex Weir on 06-25-2022 Creatinine [Mass/Vol] 0.83 mg/dL 0.55-1.02 [facility] Comment on above: The validity of the calculated GFR & GFRAA in patients over 70 years has not been determined. Clinical correlation is essential. Serum or plasma urea nitroge n measurement (mass/volume)Ordered By: Alex Weir on 06-25-2022 Urea nitrogen [Mass/Vol] 13 mg/dL 7-18 [facility] Thin prep Papanicolaou smear with manual screeningOrdered By: lAex Weir on 06-25-2022 Thin prep Papanicolaou smear with manual screening 12 U/L 15-37 [facility] Thin prep Papanicolaou smear with manual screening 8 5-15 [facility] Absolute lymphocyte countOrd ered By: Viviana Mcgee on 05-28-2022 Lymphocytes Auto (Unsp spec) [#/Vol] 1.54 10*3/uL 0.83-4.51 [facility] Basophil percentageOrdered B y: Viviana Mcgee on 05-28-2022 Basophils/100 WBC (Bld) 1.4 % 0-1 [facility] Bilirubin [Mass/Vol] 0.30 mg/dL 0.20-1.00 [facility] Comment on above: For patients on eltr ombopag therapy, use of Dimension [place] TBIL is not recommended. Chloride [Moles/Vol] 111 mmol/L 98-107 [facility] Eosinophils/100 WBC (Bld) 4.3 % 0-5 [facility] Glucose [Mass/Vol] 105 mg/dL 74-106 [facility] Comment on above: Fasting Glucose resu lt from 100 to 125 mg/dL suggests IMPAIRED HOMEOSTASIS per A.D.A. criteria. Neutrophils (Bld) [#/Vol] 2.0 10*3/uL 2.0-7.7 [facility] Neutrophils/100 WBC (Bld) 44.7 % 47-70 [facility] Potassium [Moles/Vol] 4.2 mmol/L 3.5-5.1 [facility] Protein [Mass/Vol] 6.4 g/dL 6.4-8.2 [facility] Sodium [Moles/Vol] 142 mmol/L 136-145 [facility] WBC (Bld) [#/Vol] 4.4 10*3/uL 4.4-11.0 [facility] Blood erythrocytes count (nu mber/volume)Ordered By: Viviana Mcgee on 05-28-2022 RBC (Bld) [#/Vol] 4.06 10*6/uL 4.2-5.4 [facility] Blood hemoglobin measurement (mass/volume)Ordered By: Viviana Mcgee on 05-28-2022 Hemoglobin (Bld) [Mass/Vol] 11.9 g/dL 12.0-15.0 [facility] Blood lymphocytes/100 leukoc ytesOrdered By: levy Mcgee on 05-28-2022 Lymphocytes/100 WBC (Bld) 35.2 % 19-41 [facility] Blood monocytes/100 leukocyt esOrdered By: [facility] Mcgee on 05-28-2022 Monocytes/100 WBC (Bld) 14.4 % 0-10 [facility] Blood platelet mean volumeOr dered By: levy Mcgee on 05-28-2022 Platelet mean volume (Bld) [Entitic vol] 9.2 fL 6.2-12.0 [facility] Determination of erythrocyte mean corpuscular volume (MCV)Ordered By: levy Mcgee on 05-28-2022 MCV (RBC) [Entitic vol] 89.2 fL 81-99 [facility] Hematocrit Auto (Bld) [Volum e fraction]Ordered By: [facility] [place] on 05-28-2022 Hematocrit (Bld) [Volume fraction] 36.2 % 37-47 [facility] Laboratory - Chemistry and C hemistry - challengeOrdered By: [facility] Mcgee on 05-28-2022 ALP [Catalytic activity/Vol] 91 U/L 45-117 [facility] ALT [Catalytic activity/Vol] 14 U/L 13-56 [facility] CO2 [Moles/Vol] 22.0 mmol/L 21.0-32.0 [facility] Globulin (S) [Mass/Vol] 3.3 g/dL 2.2-4.2 [facility] Urea nitrogen/Creatinine [Mass ratio] 18.8 mg/mg 10-20 [facility] Laboratory - Hematology and Cell countsOrdered By: [place] on 05-28-2022 Erythrocyte distribution width (RBC) [Entitic vol] 51.6 fL 35.1-43.9 [facility] Erythrocyte distribution width (RBC) [Ratio] 15.8 % 11.6-14.6 [facility] Immature granulocytes/100 WBC (Bld) 0.000 % 0.0-0.9 [facility] Comment on above: IG% - Immature Granu locytes (promyelocytes, myelocytes and metamyelocytes) > 1% indicates that a LEFT SHIFT is Present. MCH (RBC) [Entitic mass] 29.3 pg 27.0-32.0 [facility] Nucleated RBC/100 WBC (Bld) [Ratio] 0 % 0-5 [facility] MCHC Auto (RBC) [Mass/Vol]Or dered By: Viviana Mcgee on 05-28-2022 MCHC (RBC) [Mass/Vol] 32.9 g/dL 32-36 [facility] No Panel InformationOrdered By: Viviana Mcgee on 05-28-2022 Estimated GFR (MDRD) Amer 84 mL/min >60 [facility] Comment on above: GFR Calc Estimated GFR (MDRD) Non-Af Amer 69 mL/min >60 [facility] Comment on above: Non- GFR Calc Platelets bldOrdered By: Reza Mcgee on 05-28-2022 Platelets (Bld) [#/Vol] 219 10*3/uL 150-450 [facility] Serum or plasma albumin fiona urement (mass/volume)Ordered By: Viviana Mcgee on 05-28-2022 Albumin [Mass/Vol] 3.1 g/dL 3.2-5.0 [facility] Serum or plasma albumin/glob ulin mass ratioOrdered By: Viviana Mcgee on 05-28-2022 Albumin/Globulin [Mass ratio] 0.9 {ratio} 0.9-2.4 [facility] [facility] Serum or plasma calcium fiona urement (mass/volume)Ordered By: Viviana Mcgee on 05-28-2022 Calcium [Mass/Vol] 8.3 mg/dL 8.5-10.1 [facility] Serum or plasma creatinine m easurement (mass/volume)Ordered By: Viviana Mcgee on 05-28-2022 Creatinine [Mass/Vol] 0.85 mg/dL 0.55-1.02 [facility] Comment on above: The validity of the calculated GFR & GFRAA in patients over 70 years has not been determined. Clinical correlation is essential. Serum or plasma urea nitroge n measurement (mass/volume)Ordered By: Viviana Mcgee on 05-28-2022 Urea nitrogen [Mass/Vol] 16 mg/dL 7-18 [facility] Thin prep Papanicolaou smear with manual screeningOrdered By: Viviana Mcgee on 05-28-2022 Thin prep Papanicolaou smear with manual screening 14 U/L 15-37 [facility] Thin prep Papanicolaou smear with manual screening 9 5-15 [facility] Absolute lymphocyte countOrd ered By: Alex Weir on 04-30-2022 Lymphocytes Auto (Unsp spec) [#/Vol] 1.52 10*3/uL 0.83-4.51 [facility] Basophil percentageOrdered B y: Alex Weir on 04-30-2022 Basophils/100 WBC (Bld) 1.4 % 0-1 [facility] Bilirubin [Mass/Vol] 0.30 mg/dL 0.20-1.00 [facility] Comment on above: For patients on eltr ombopag therapy, use of Dimension Mays TBIL is not recommended. Chloride [Moles/Vol] 111 mmol/L 98-107 [facility] Eosinophils/100 WBC (Bld) 3.5 % 0-5 [facility] Glucose [Mass/Vol] 110 mg/dL 74-106 [facility] Comment on above: Fasting Glucose resu lt from 100 to 125 mg/dL suggests IMPAIRED HOMEOSTASIS per A.D.A. criteria. Neutrophils (Bld) [#/Vol] 2.7 10*3/uL 2.0-7.7 [facility] Neutrophils/100 WBC (Bld) 52.1 % 47-70 [facility] Potassium [Moles/Vol] 4.3 mmol/L 3.5-5.1 [facility] Protein [Mass/Vol] 6.4 g/dL 6.4-8.2 [facility] Sodium [Moles/Vol] 141 mmol/L 136-145 [facility] WBC (Bld) [#/Vol] 5.2 10*3/uL 4.4-11.0 [facility] Blood erythrocytes count (nu mber/volume)Ordered By: Alex Weir on 04-30-2022 RBC (Bld) [#/Vol] 4.07 10*6/uL 4.2-5.4 [facility] Blood hemoglobin measurement (mass/volume)Ordered By: Alex Weir on 04-30-2022 Hemoglobin (Bld) [Mass/Vol] 11.5 g/dL 12.0-15.0 [facility] Blood lymphocytes/100 leukoc ytesOrdered By: Alex Weir on 04-30-2022 Lymphocytes/100 WBC (Bld) 29.4 % 19-41 [facility] Blood monocytes/100 leukocyt esOrdered By: Alex Weir on 04-30-2022 Monocytes/100 WBC (Bld) 13.0 % 0-10 [facility] Blood platelet mean volumeOr dered By: Alex Weir on 04-30-2022 Platelet mean volume (Bld) [Entitic vol] 9.1 fL 6.2-12.0 [facility] Determination of erythrocyte mean corpuscular volume (MCV)Ordered By: Alex Weir on 04-30-2022 MCV (RBC) [Entitic vol] 88.2 fL 81-99 [facility] Hematocrit Auto (Bld) [Volum e fraction]Ordered By: Alex Weir on 04-30-2022 Hematocrit (Bld) [Volume fraction] 35.9 % 37-47 [facility] Laboratory - Chemistry and C hemistry - challengeOrdered By: Alex Weir on 04-30-2022 ALP [Catalytic activity/Vol] 102 U/L 45-117 [facility] ALT [Catalytic activity/Vol] 15 U/L 13-56 [facility] CO2 [Moles/Vol] 27.0 mmol/L 21.0-32.0 [facility] Globulin (S) [Mass/Vol] 3.3 g/dL 2.2-4.2 [facility] Urea nitrogen/Creatinine [Mass ratio] 18.0 mg/mg 10-20 [facility] Laboratory - Hematology and Cell countsOrdered By: Alex Weir on 04-30-2022 Erythrocyte distribution width (RBC) [Entitic vol] 55.8 fL 35.1-43.9 [facility] Erythrocyte distribution width (RBC) [Ratio] 17.4 % 11.6-14.6 [facility] Immature granulocytes/100 WBC (Bld) 0.600 % 0.0-0.9 [facility] Comment on above: IG% - Immature Granu locytes (promyelocytes, myelocytes and metamyelocytes) > 1% indicates that a LEFT SHIFT is Present. MCH (RBC) [Entitic mass] 28.3 pg 27.0-32.0 [facility] Nucleated RBC/100 WBC (Bld) [Ratio] 0 % 0-5 [facility] MCHC Auto (RBC) [Mass/Vol]Or dered By: Alex Weir on 04-30-2022 MCHC (RBC) [Mass/Vol] 32.0 g/dL 32-36 [facility] No Panel InformationOrdered By: Alex Weir on 04-30-2022 Estimated GFR (MDRD) Amer 80 mL/min >60 [facility] Comment on above: GFR Calc Estimated GFR (MDRD) Non-Af Amer 66 mL/min >60 [facility] Comment on above: Non- GFR Calc Platelets bldOrdered By: Kunal Weir on 04-30-2022 Platelets (Bld) [#/Vol] 280 10*3/uL 150-450 [facility] Serum or plasma albumin fiona urement (mass/volume)Ordered By: Alex Weir on 04-30-2022 Albumin [Mass/Vol] 3.1 g/dL 3.2-5.0 [facility] Serum or plasma albumin/glob ulin mass ratioOrdered By: Alex Weir on 04-30-2022 Albumin/Globulin [Mass ratio] 0.9 {ratio} 0.9-2.4 [facility] Serum or plasma calcium fiona urement (mass/volume)Ordered By: Alex Weir on 04-30-2022 Calcium [Mass/Vol] 8.9 mg/dL 8.5-10.1 [facility] Serum or plasma creatinine m easurement (mass/volume)Ordered By: Alex Weir on 04-30-2022 Creatinine [Mass/Vol] 0.89 mg/dL 0.55-1.02 [facility] Comment on above: The validity of the calculated GFR & GFRAA in patients over 70 years has not been determined. Clinical correlation is essential. Serum or plasma urea nitroge n measurement (mass/volume)Ordered By: Alex Weir on 04-30-2022 Urea nitrogen [Mass/Vol] 16 mg/dL 7-18 [facility] Thin prep Papanicolaou smear with manual screeningOrdered By: Alex Weir on 04-30-2022 Thin prep Papanicolaou smear with manual screening 11 U/L 15-37 [facility] Thin prep Papanicolaou smear with manual screening 3 5-15 [facility] No Panel InformationOrdered By: Viviana Mcgee on 03-29-2022 Thyroid Stimulating Hormone (TSH) 2.52 uIU/mL 0.358-3.74 [facility] Absolute lymphocyte countOrd ered By: Alex Weir on 03-26-2022 Lymphocytes Auto (Unsp spec) [#/Vol] 0.77 10*3/uL 0.83-4.51 [facility] Basophil percentageOrdered B y: Alex Weir on 03-26-2022 Basophils/100 WBC (Bld) 0.6 % 0-1 [facility] Bilirubin [Mass/Vol] 0.20 mg/dL 0.20-1.00 [facility] Comment on above: For patients on eltr ombopag therapy, use of Dimension Mays TBIL is not recommended. Chloride [Moles/Vol] 107 mmol/L 98-107 [facility] Eosinophils/100 WBC (Bld) 1.7 % 0-5 [facility] Glucose [Mass/Vol] 115 mg/dL 74-106 [facility] Comment on above: Fasting Glucose resu lt from 100 to 125 mg/dL suggests IMPAIRED HOMEOSTASIS per A.D.A. criteria. Neutrophils (Bld) [#/Vol] 8.0 10*3/uL 2.0-7.7 [facility] Neutrophils/100 WBC (Bld) 82.4 % 47-70 [facility] Potassium [Moles/Vol] 4.2 mmol/L 3.5-5.1 [facility] Protein [Mass/Vol] 7.2 g/dL 6.4-8.2 [facility] Sodium [Moles/Vol] 138 mmol/L 136-145 [facility] WBC (Bld) [#/Vol] 9.6 10*3/uL 4.4-11.0 [facility] Blood erythrocytes count (nu mber/volume)Ordered By: Alex Weir on 03-26-2022 RBC (Bld) [#/Vol] 4.15 10*6/uL 4.2-5.4 [facility] Blood hemoglobin measurement (mass/volume)Ordered By: Alex Weir on 03-26-2022 Hemoglobin (Bld) [Mass/Vol] 11.5 g/dL 12.0-15.0 [facility] Blood lymphocytes/100 leukoc ytesOrdered By: Alex Weir on 03-26-2022 Lymphocytes/100 WBC (Bld) 8.0 % 19-41 [facility] Blood monocytes/100 leukocyt esOrdered By: Alex Weir on 03-26-2022 Monocytes/100 WBC (Bld) 7.0 % 0-10 [facility] Blood platelet mean volumeOr dered By: Alex Weir on 03-26-2022 Platelet mean volume (Bld) [Entitic vol] 8.9 fL 6.2-12.0 [facility] Determination of erythrocyte mean corpuscular volume (MCV)Ordered By: Alex Weir on 03-26-2022 MCV (RBC) [Entitic vol] 90.6 fL 81-99 [facility] Hematocrit Auto (Bld) [Volum e fraction]Ordered By: Alex Weir on 03-26-2022 Hematocrit (Bld) [Volume fraction] 37.6 % 37-47 [facility] Laboratory - Chemistry and C hemistry - challengeOrdered By: Alex Weir on 03-26-2022 ALP [Catalytic activity/Vol] 125 U/L 45-117 [facility] ALT [Catalytic activity/Vol] 15 U/L 13-56 [facility] CO2 [Moles/Vol] 26.0 mmol/L 21.0-32.0 [facility] Globulin (S) [Mass/Vol] 4.0 g/dL 2.2-4.2 [facility] Urea nitrogen/Creatinine [Mass ratio] 14.1 mg/mg 10-20 [facility] Laboratory - Hematology and Cell countsOrdered By: Alex Weir on 03-26-2022 Erythrocyte distribution width (RBC) [Entitic vol] 59.8 fL 35.1-43.9 [facility] Erythrocyte distribution width (RBC) [Ratio] 17.9 % 11.6-14.6 [facility] Immature granulocytes/100 WBC (Bld) 0.300 % 0.0-0.9 [facility] Comment on above: IG% - Immature Granu locytes (promyelocytes, myelocytes and metamyelocytes) > 1% indicates that a LEFT SHIFT is Present. MCH (RBC) [Entitic mass] 27.7 pg 27.0-32.0 [facility] Nucleated RBC/100 WBC (Bld) [Ratio] 0 % 0-5 [facility] MCHC Auto (RBC) [Mass/Vol]Or dered By: Alex Weir on 03-26-2022 MCHC (RBC) [Mass/Vol] 30.6 g/dL 32-36 [facility] No Panel InformationOrdered By: Alex Weir on 03-26-2022 Estimated GFR (MDRD) Amer 84 mL/min >60 [facility] Comment on above: GFR Calc Estimated GFR (MDRD) Non-Af Amer 69 mL/min >60 [facility] Comment on above: Non- GFR Calc Platelets bldOrdered By: Kunal Weir on 03-26-2022 Platelets (Bld) [#/Vol] 334 10*3/uL 150-450 [facility] Serum or plasma albumin fiona urement (mass/volume)Ordered By: Alex Weir on 03-26-2022 Albumin [Mass/Vol] 3.2 g/dL 3.2-5.0 [facility] Serum or plasma albumin/glob ulin mass ratioOrdered By: Alex Weir on 03-26-2022 Albumin/Globulin [Mass ratio] 0.8 {ratio} 0.9-2.4 [facility] Serum or plasma calcium fiona urement (mass/volume)Ordered By: Alex Weir on 03-26-2022 Calcium [Mass/Vol] 8.9 mg/dL 8.5-10.1 [facility] Serum or plasma creatinine m easurement (mass/volume)Ordered By: Alex Weir on 03-26-2022 Creatinine [Mass/Vol] 0.85 mg/dL 0.55-1.02 [facility] Comment on above: The validity of the calculated GFR & GFRAA in patients over 70 years has not been determined. Clinical correlation is essential. Serum or plasma urea nitroge n measurement (mass/volume)Ordered By: Alex Weir on 03-26-2022 Urea nitrogen [Mass/Vol] 12 mg/dL 7-18 [facility] Thin prep Papanicolaou smear with manual screeningOrdered By: Alex Weir on 03-26-2022 Thin prep Papanicolaou smear with manual screening 12 U/L 15-37 [facility] Thin prep Papanicolaou smear with manual screening 5 5-15 [facility] Absolute lymphocyte countOrd ered By: Alex Weir on 02-26-2022 Lymphocytes Auto (Unsp spec) [#/Vol] 1.59 10*3/uL 0.83-4.51 [facility] Basophil percentageOrdered B y: Alex Weir on 02-26-2022 Basophils/100 WBC (Bld) 1.6 % 0-1 [facility] Bilirubin [Mass/Vol] 0.20 mg/dL 0.20-1.00 [facility] Comment on above: For patients on eltr ombopag therapy, use of Dimension Mays TBIL is not recommended. Chloride [Moles/Vol] 101 mmol/L 98-107 [facility] Eosinophils/100 WBC (Bld) 5.8 % 0-5 [facility] Glucose [Mass/Vol] 99 mg/dL 74-106 [facility] Neutrophils (Bld) [#/Vol] 2.5 10*3/uL 2.0-7.7 [facility] Neutrophils/100 WBC (Bld) 48.1 % 47-70 [facility] Potassium [Moles/Vol] 4.3 mmol/L 3.5-5.1 [facility] Protein [Mass/Vol] 7.3 g/dL 6.4-8.2 [facility] Sodium [Moles/Vol] 134 mmol/L 136-145 [facility] WBC (Bld) [#/Vol] 5.1 10*3/uL 4.4-11.0 [facility] Blood erythrocytes count (nu mber/volume)Ordered By: Alex Weir on 02-26-2022 RBC (Bld) [#/Vol] 3.49 10*6/uL 4.2-5.4 [facility] Blood hemoglobin measurement (mass/volume)Ordered By: Alex Weir on 02-26-2022 Hemoglobin (Bld) [Mass/Vol] 10.1 g/dL 12.0-15.0 [facility] Blood lymphocytes/100 leukoc ytesOrdered By: Alex Weir on 02-26-2022 Lymphocytes/100 WBC (Bld) 31.0 % 19-41 [facility] Blood monocytes/100 leukocyt esOrdered By: Alex Weir on 02-26-2022 Monocytes/100 WBC (Bld) 12.9 % 0-10 [facility] Blood platelet mean volumeOr dered By: Alex Weir on 02-26-2022 Platelet mean volume (Bld) [Entitic vol] 8.4 fL 6.2-12.0 [facility] Determination of erythrocyte mean corpuscular volume (MCV)Ordered By: Alex Weir on 02-26-2022 MCV (RBC) [Entitic vol] 89.7 fL 81-99 [facility] Hematocrit Auto (Bld) [Volum e fraction]Ordered By: Alex Weir on 02-26-2022 Hematocrit (Bld) [Volume fraction] 31.3 % 37-47 [facility] Laboratory - Chemistry and C hemistry - challengeOrdered By: Alex Weir on 02-26-2022 ALP [Catalytic activity/Vol] 110 U/L 45-117 [facility] ALT [Catalytic activity/Vol] 15 U/L 13-56 [facility] CO2 [Moles/Vol] 27.0 mmol/L 21.0-32.0 [facility] Globulin (S) [Mass/Vol] 4.5 g/dL 2.2-4.2 [facility] Urea nitrogen/Creatinine [Mass ratio] 11.1 mg/mg 10-20 [facility] Laboratory - Hematology and Cell countsOrdered By: Alex Weir on 02-26-2022 Erythrocyte distribution width (RBC) [Entitic vol] 59.3 fL 35.1-43.9 [facility] Erythrocyte distribution width (RBC) [Ratio] 18.0 % 11.6-14.6 [facility] Immature granulocytes/100 WBC (Bld) 0.600 % 0.0-0.9 [facility] Comment on above: IG% - Immature Granu locytes (promyelocytes, myelocytes and metamyelocytes) > 1% indicates that a LEFT SHIFT is Present. MCH (RBC) [Entitic mass] 28.9 pg 27.0-32.0 [facility] Nucleated RBC/100 [facility]Bld) [[facility]] 0 [facility] [[facility]/Vol]Or dered By: Alex Weir on 02-26-2022 MCHC (RBC) [Mass/Vol] 32.3 g/dL 32-36 [facility] No Panel InformationOrdered By: Alex Weir on 02-26-2022 Estimated GFR (MDRD) Amer 88 mL/min >60 [facility] Comment on above: GFR Calc Estimated GFR (MDRD) Non-Af Amer 73 mL/min >60 [facility] Comment on above: Non- GFR Calc Platelets bldOrdered By: Kunal Weir on 02-26-2022 Platelets (Bld) [#/Vol] 358 10*3/uL 150-450 [facility] Serum or plasma albumin fiona urement (mass/volume)Ordered By: Alex Weir on 02-26-2022 Albumin [Mass/Vol] 2.8 g/dL 3.2-5.0 [facility] Serum or plasma albumin/glob ulin mass ratioOrdered By: Alex Weir on 02-26-2022 Albumin/Globulin [Mass ratio] 0.6 {ratio} 0.9-2.4 [facility] Serum or plasma calcium fiona urement (mass/volume)Ordered By: Alex Weir on 02-26-2022 Calcium [Mass/Vol] 9.3 mg/dL 8.5-10.1 [facility] Serum or plasma creatinine m easurement (mass/volume)Ordered By: Alex Weir on 02-26-2022 Creatinine [Mass/Vol] 0.81 mg/dL 0.55-1.02 [facility] Comment on above: The validity of the calculated GFR & GFRAA in patients over 70 years has not been determined. Clinical correlation is essential. Serum or plasma urea nitroge n measurement (mass/volume)Ordered By: Alex Weir on 02-26-2022 Urea nitrogen [Mass/Vol] 9 mg/dL 7-18 [facility] Thin prep Papanicolaou smear with manual screeningOrdered By: Alex Weir on 02-26-2022 Thin prep Papanicolaou smear with manual screening 13 U/L 15-37 [facility] Thin prep Papanicolaou smear with manual screening 6 5-15 [facility] Absolute lymphocyte countOrd ered By: Alex Weir on 01-29-2022 Lymphocytes Auto (Unsp spec) [#/Vol] 1.55 10*3/uL 0.83-4.51 [facility] Basophil percentageOrdered B y: Alex Weir on 01-29-2022 Basophils/100 WBC (Bld) 0.8 % 0-1 [facility] Bilirubin [Mass/Vol] 0.10 mg/dL 0.20-1.00 [facility] Comment on above: For patients on eltr ombopag therapy, use of Dimension Mays TBIL is not recommended. Chloride [Moles/Vol] 101 mmol/L 98-107 [facility] Eosinophils/100 WBC (Bld) 3.0 % 0-5 [facility] Glucose [Mass/Vol] 101 mg/dL 74-106 [facility] Comment on above: Fasting Glucose resu lt from 100 to 125 mg/dL suggests IMPAIRED HOMEOSTASIS per A.D.A. criteria. Neutrophils (Bld) [#/Vol] 5.7 10*3/uL 2.0-7.7 [facility] Neutrophils/100 WBC (Bld) 67.6 % 47-70 [facility] Potassium [Moles/Vol] 4.6 mmol/L 3.5-5.1 [facility] Protein [Mass/Vol] 7.6 g/dL 6.4-8.2 [facility] Sodium [Moles/Vol] 135 mmol/L 136-145 [facility] WBC (Bld) [#/Vol] 8.4 10*3/uL 4.4-11.0 [facility] Blood erythrocytes count (nu mber/volume)Ordered By: Alex Weir on 01-29-2022 RBC (Bld) [#/Vol] 2.89 10*6/uL 4.2-5.4 [facility] Blood hemoglobin measurement (mass/volume)Ordered By: Alex Weir on 01-29-2022 Hemoglobin (Bld) [Mass/Vol] 9.2 g/dL 12.0-15.0 [facility] Blood lymphocytes/100 leukoc ytesOrdered By: Alex Weir on 01-29-2022 Lymphocytes/100 WBC (Bld) 18.5 % 19-41 [facility] Blood monocytes/100 leukocyt esOrdered By: Alex Weir on 01-29-2022 Monocytes/100 WBC (Bld) 9.9 % 0-10 [facility] Blood platelet adequacy dete ction by light microscopyOrdered By: Alex Weir on 01-29-2022 Platelets LM Ql (Bld) ADEQUATE ADEQ [facility] Blood platelet mean volumeOr dered By: Alex Weir on 01-29-2022 Platelet mean volume (Bld) [Entitic vol] 8.7 fL 6.2-12.0 [facility] Determination of erythrocyte mean corpuscular volume (MCV)Ordered By: Alex Weir on 01-29-2022 MCV (RBC) [Entitic vol] 99.3 fL 81-99 [facility] Hematocrit Auto (Bld) [Volum e fraction]Ordered By: Alex Weir on 01-29-2022 Hematocrit (Bld) [Volume fraction] 28.7 % 37-47 [facility] Laboratory - Chemistry and C hemistry - challengeOrdered By: Alex Weir on 01-29-2022 ALP [Catalytic activity/Vol] 98 U/L 45-117 [facility] ALT [Catalytic activity/Vol] 22 U/L 13-56 [facility] CO2 [Moles/Vol] 26.0 mmol/L 21.0-32.0 [facility] Globulin (S) [Mass/Vol] 5.2 g/dL 2.2-4.2 [facility] Urea nitrogen/Creatinine [Mass ratio] 11.8 mg/mg 10-20 [facility] Laboratory - Hematology and Cell countsOrdered By: Alex Weir on 01-29-2022 Anisocytosis Ql (Bld) 1+ [facility] Erythrocyte distribution width (RBC) [Entitic vol] 65.9 fL 35.1-43.9 [facility] Erythrocyte distribution width (RBC) [Ratio] 18.0 % 11.6-14.6 [facility] Immature granulocytes/100 WBC (Bld) 0.200 % 0.0-0.9 [facility] Comment on above: IG% - Immature Granu locytes (promyelocytes, myelocytes and metamyelocytes) > 1% indicates that a LEFT SHIFT is Present. MCH (RBC) [Entitic mass] 31.8 pg 27.0-32.0 [facility] Nucleated RBC/100 WBC (Bld) [Ratio] 0 % 0-5 [facility] MCHC Auto (RBC) [Mass/Vol]Or dered By: Alex Weir on 01-29-2022 MCHC (RBC) [Mass/Vol] 32.1 g/dL 32-36 [facility] No Panel InformationOrdered By: Alex Weir on 01-29-2022 Estimated GFR (MDRD) Amer 96 mL/min >60 [facility] Comment on above: GFR Calc Estimated GFR (MDRD) Non-Af Amer 79 mL/min >60 [facility] Comment on above: Non- GFR Calc Platelets bldOrdered By: Kunal Weir on 01-29-2022 Platelets (Bld) [#/Vol] 486 10*3/uL 150-450 [facility] RBC morphologyOrdered By: Naida Weir on 01-29-2022 RBC morphology finding Nom (Bld) N CHROM NORMAL NORM C&C [facility] Serum or plasma albumin fiona urement (mass/volume)Ordered By: Alex Weir on 01-29-2022 Albumin [Mass/Vol] 2.4 g/dL 3.2-5.0 [facility] Serum or plasma albumin/glob ulin mass ratioOrdered By: Alex Weir on 01-29-2022 Albumin/Globulin [Mass ratio] 0.5 {ratio} 0.9-2.4 [facility] Serum or plasma calcium fiona urement (mass/volume)Ordered By: Alex Weir on 01-29-2022 Calcium [Mass/Vol] 9.4 mg/dL 8.5-10.1 [facility] Serum or plasma creatinine m easurement (mass/volume)Ordered By: Alex Weir on 01-29-2022 Creatinine [Mass/Vol] 0.76 mg/dL 0.55-1.02 [facility] Comment on above: The validity of the calculated GFR & GFRAA in patients over 70 years has not been determined. Clinical correlation is essential. Serum or plasma urea nitroge n measurement (mass/volume)Ordered By: Alex Weir on 01-29-2022 Urea nitrogen [Mass/Vol] 9 mg/dL 7-18 [facility] Thin prep Papanicolaou smear with manual screeningOrdered By: Alex Weir on 01-29-2022 Thin prep Papanicolaou smear with manual screening 16 U/L 15-37 [facility] Thin prep Papanicolaou smear with manual screening 8 5-15 [facility] Absolute lymphocyte counton 01-11-2022 Lymphocytes Auto (Unsp spec) [#/Vol] 0.80 10*3/uL 0.83-4.51 [facility] Work Phone: Basophil percentageon 2021 Basophils/100 WBC (Bld) 0.7 % 0-1 [facility] Work Phone: Bilirubin [Mass/Vol] 0.30 mg/dL 0.20-1.00 [facility] Work Phone: Comment on above: For patients on eltr ombopag therapy, use of Dimension Mays TBIL is not recommended. Chloride [Moles/Vol] 100 mmol/L 98-107 [facility] Work Phone: Eosinophils/100 WBC (Bld) 0.8 % 0-5 [facility] Work Phone: Glucose [Mass/Vol] 84 mg/dL 74-106 [facility] Work Phone: Neutrophils (Bld) [#/Vol] 6.7 10*3/uL 2.0-7.7 [facility] Work Phone: Neutrophils/100 WBC (Bld) 76.8 % 47-70 [facility] Work Phone: Potassium [Moles/Vol] 3.8 mmol/L 3.5-5.1 [facility] Work Phone: Protein [Mass/Vol] 7.0 g/dL 6.4-8.2 [facility] Work Phone: Sodium [Moles/Vol] 135 mmol/L 136-145 [facility] Work Phone: WBC (Bld) [#/Vol] 8.8 10*3/uL 4.4-11.0 [facility] Work Phone: Blood erythrocytes count (nu mber/volume)on 01-11-2022 RBC (Bld) [#/Vol] 2.73 10*6/uL 4.2-5.4 [facility] Work Phone: Blood hemoglobin measurement (mass/volume)on 01-11-2022 Hemoglobin (Bld) [Mass/Vol] 9.4 g/dL 12.0-15.0 [facility] Work Phone: [phone] Blood lymphocytes/100 leukoc yteson 01-11-2022 Lymphocytes/100 WBC (Bld) 9.1 % 19-41 [facility] Work Phone: [phone] Blood monocytes/100 leukocyt eson 01-11-2022 Monocytes/100 WBC (Bld) 11.8 % 0-10 [facility] Work Phone: Blood platelet adequacy dete ction by light microscopyon 01-11-2022 Platelets LM Ql (Bld) MKD INC ADEQ [facility] Work Phone: Blood platelet mean volumeon 01-11-2022 Platelet mean volume (Bld) [Entitic vol] 8.6 fL 6.2-12.0 [facility] Work Phone: Determination of erythrocyte mean corpuscular volume (MCV)on 01-11-2022 MCV (RBC) [Entitic vol] 107.0 fL 81-99 [facility] Work Phone: Hematocrit Auto (Bld) [Volum e fraction]on 01-11-2022 Hematocrit (Bld) [Volume fraction] 29.2 % 37-47 [facility] Work Phone: Laboratory - Chemistry and C hemistry - challengeon 01-11-2022 ALP [Catalytic activity/Vol] 148 U/L 45-117 [facility] Work Phone: ALT [Catalytic activity/Vol] 56 U/L 13-56 [facility] Work Phone: CO2 [Moles/Vol] 25.0 mmol/L 21.0-32.0 [facility] Work Phone: Globulin (S) [Mass/Vol] 5.2 g/dL 2.2-4.2 [facility] Work Phone: [phone] Urea nitrogen/Creatinine [Mass ratio] 8.5 mg/mg 10-20 [facility] Work Phone: Laboratory - Hematology and Cell countson 01-11-2022 Anisocytosis Ql (Bld) 1+ [facility] Work Phone: [phone] Erythrocyte distribution width (RBC) [Entitic vol] 65.2 fL 35.1-43.9 [facility] Work Phone: [phone] Erythrocyte distribution width (RBC) [Ratio] 16.7 % 11.6-14.6 [facility] Work Phone: [phone] Immature granulocytes/100 WBC (Bld) 0.800 % 0.0-0.9 [facility] Work Phone: Comment on above: IG% - Immature Granu locytes (promyelocytes, myelocytes and metamyelocytes) > 1% indicates that a LEFT SHIFT is Present. MCH (RBC) [Entitic mass] 34.4 pg 27.0-32.0 [facility] Work Phone: Nucleated RBC/100 WBC (Bld) [Ratio] 0 % 0-5 [facility] Work Phone: MCHC Auto (RBC) [Mass/Vol]on 01-11-2022 MCHC (RBC) [Mass/Vol] 32.2 g/dL 32-36 [facility] Work Phone: No Panel Informationon 01-11 Estimated GFR (MDRD) Amer 128 mL/min >60 [facility] Work Phone: Comment on above: GFR Calc Estimated GFR (MDRD) Non-Af Amer 106 mL/min >60 [facility] Work Phone: Comment on above: Non- GFR Calc Platelets bldon 01-11-2022 Platelets (Bld) [#/Vol] 846 10*3/uL 150-450 [facility] Work Phone: Comment on above: CRITICAL VALUE VERIF IED. CALLED TO LEANNA BAEZA ([facility])01/11/22 0834 Cr [place].RESULTS READ BACK BY SAME. Previous reported result: 846 K/tc1Eevory by: MICHELLE on 01/11/22:0834 AMENDED REPORT 01/11/22 0834 PLT previously reported as: 846 *H K/mm3 Review by pathologiston 12-24 Pathologist review Guy (Unsp spec) [Interp] Reviewed [facility] Work Phone: Comment on above: Previous reported re sult: Iqra reianldo Edited by: ANDERSON on 01/12/22:1304Mild Macrocytic anemia.Thrombocytosis.Clinical correlation necessary.Chao Mathews M.D. 01/12/22 AMENDED REPORT 01/12/22 1304 PATH REV previously reported as: Iqra najera Serum or plasma albumin fiona urement (mass/volume)on 01-11-2022 Albumin [Mass/Vol] 1.8 g/dL 3.2-5.0 [facility] Work Phone: Serum or plasma albumin/glob ulin mass ratioon 01-11-2022 Albumin/Globulin [Mass ratio] 0.3 {ratio} 0.9-2.4 [facility] Work Phone: Serum or plasma calcium fiona urement (mass/volume)on 01-11-2022 Calcium [Mass/Vol] 8.7 mg/dL 8.5-10.1 [facility] Work Phone: Serum or plasma creatinine m easurement (mass/volume)on 01-11-2022 Creatinine [Mass/Vol] 0.59 mg/dL 0.55-1.02 [facility] Work Phone: Comment on above: The validity of the calculated GFR & GFRAA in patients over 70 years has not been determined. Clinical correlation is essential. Serum or plasma urea nitroge n measurement (mass/volume)on 01-11-2022 Urea nitrogen [Mass/Vol] 5 mg/dL 7-18 [facility] Work Phone: Thin prep Papanicolaou smear with manual screeningon 01-11-2022 Thin prep Papanicolaou smear with manual screening 41 U/L 15-37 [facility] Work Phone: Thin prep Papanicolaou smear with manual screening 10 5-15 [facility] Work Phone: Basic Metabolic Panelon 12-24 Calcium [Mass/Vol] 8.6 mg/dL Normal 8.4-10.4 [facility] Comment on above: Performed By: #### H EMDF, BMP3M #### [facility] [address] [place], [place] Glucose [Mass/Vol] 86 mg/dL Normal 70-100 [facility] Comment on above: Performed By: #### H EMDF, BMP3M #### [facility] [address] [place], [place] Urea nitrogen [Mass/Vol] 9 mg/dL Normal 9-20 [facility] Comment on above: Performed By: #### H EMDF, BMP3M #### [facility] [address] [place], [place] Anion gap [Moles/Vol] 8 mmol/L Normal 3-13 [facility] Comment on above: Performed By: #### H EMDF, BMP3M #### [facility] [address] [place], [place] CO2 [Moles/Vol] 23 mmol/L Normal 22-30 [facility] Comment on above: Performed By: #### H EMDF, BMP3M #### [facility] [address] [place] Creatinine [Mass/Vol] 0.55 mg/dL Normal 0.52-1.25 [facility] Comment on above: Performed By: #### H EMDF, BMP3M #### [facility] [address] [place] eGFR OTHER > 90.0 Normal >60 [facility] Comment on above: Result Comment: KDIG O guidelines provide the following GFR categories: Stage GFR(ml/min/1.73 m2) Terms G1 >=90 Normal or high G2 60-89 Mildly decreased* G3a 45-59 Mildly to moderately decreased G3b 30-44 Moderately to severely decreased G4 15-29 Severely decreased G5 <15 Kidney failure *Relative to young adult level. In the absence of evidence of kidney damage, neither GFR category G1 nor G2 fulfill the criteria for CKD. The CKD-EPI equation is validated in individuals 18 years of age and older. Currently the best equation for estimating glomerular filtration rate (GFR) from serum creatinine in children is the Bedside Velez equation. It is less accurate in patients with extremes of muscle mass, restriction of dietary protein, ingestion of creatine, extra-renal metabolism of creatinine, or treatment with medications that affect renal tubular creatinine secretion. Performed By: #### H LALA BMP3M #### [address] [address] [place], [place] GFR/1.73 sq M.predicted among blacks MDRD (S/P/Bld) [Vol rate/Area] mL/min/{1.73_m2} Normal >60 [facility] Comment on above: Performed By: #### H LALA BMP3M #### [address] [place], [place] Chloride [Moles/Vol] 105 mmol/L Normal 98-107 [facility] Comment on above: Performed By: #### H LALA BMP3M #### [address] [address] [place], [place] Potassium [Moles/Vol] 4.8 mmol/L Normal 3.5-5.1 [facility] Comment on above: Performed By: #### H LALA BMP3M #### [address] Sodium [Moles/Vol] 136 mmol/L Normal 135-145 [facility] Comment on above: Performed By: #### H LALA BMP3M #### [address] [address] [place], [place] Basic Metabolic Panel w/ Ref emmanuel to MGon 01-07-2022 Anion gap [Moles/Vol] 8 mmol/L 3 - 13 mmol/L [facility] Calcium [Mass/Vol] 8.6 mg/dL 8.4 - 10. 4 mg/dL [facility] Chloride [Moles/Vol] 105 mmol/L 98 - 10 7 mmol/L [facility] CO2 [Moles/Vol] 23 mmol/L 22 - 30 mmol/L [facility] Creatinine [Mass/Vol] 0.55 mg/dL 0.52 - 1.25 mg/dL [facility] eGFR mL/min 60 - P INF mL/min [facility] EGFR IF NonAfrican Trinidadian mL/min 60 - PINF mL/min [facility] Glucose [Mass/Vol] 86 mg/dL 70 - 100 mg/dL [facility] Potassium [Moles/Vol] 4.8 mmol/L 3.5 - 5.1 mmol/L [facility] Sodium [Moles/Vol] 136 mmol/L 135 - 145 mmol/L [facility] Urea nitrogen (BldV) [Mass/Vol] 9 mg/dL 9 - 20 mg/dL [facility] CBC with Auto Differentialon 01-07-2022 Absolute Baso # 0.1 10*3/uL 0 - 0.2 10*3/uL [facility] Absolute Neut # 8.9 10*3/uL High 1.8 - 7 10*3/uL [facility] Basophils/100 WBC (Bld) 0.6 % 0 - 2 % [facility] Eosinophils (Bld) [#/Vol] 0.1 10*3/uL 0 - 0.5 10*3/uL [facility] Eosinophils/100 WBC (Bld) 1.1 % 1 - 6 % [facility] Granulocytes/100 WBC (Bld) 79.2 % 40 - 80 % [facility] Hematocrit (Bld) [Volume fraction] 34.9 % Low 35 - 47 % [facility] Hemoglobin (Bld) [Mass/Vol] 11.2 g/dL Low 11.7 - 16 g/dL [facility] Interpretation and review of laboratory results Abnormal [facility] Lymphocytes (Bld) [#/Vol] 0.9 10*3/uL Low 1 - 4.3 10*3/uL [facility] Lymphocytes/100 WBC (Bld) 8.4 % Low 20 - 40 % [facility] MCH (RBC) [Entitic mass] 34.1 pg High 26 - 34 pg [facility] MCHC (RBC) [Mass/Vol] 32.1 % 32 - 36 % [facility] MCV (RBC) [Entitic vol] 106.4 fL High 79 - 98 fL [facility] Monocytes (Bld) [#/Vol] 1.2 10*3/uL High 0 - 0.8 10*3/uL [facility] Monocytes/100 WBC (Bld) 10.7 % High 2 - 10 % [facility] Platelet distribution width (Bld) [Ratio] 18.6 % High 11.5 - 14.5 % [facility] Platelet mean volume (Bld) [Entitic vol] 7.3 fL Low 7.4 - 12.4 fL [facility] Platelets (Bld) [#/Vol] 725 10*3/uL High 140 - 440 10*3/uL [facility] RBC (Bld) [#/Vol] 3.28 10*6/uL Low 3.8 - 5.2 10*6/uL [facility] W[facility] ([facility]ld) [#/Vol] 10.8 10*3/uL High 3.6 - 10.7 10*3/uL [facility] COVID-19on 01-07-2022 SARS-CoV-2 (COVID-19) RNA LISE+probe Ql (Unsp spec) Not detected Not Detected [facility] CR Chest Portableon 01-08-20 CR Chest Portable Patient Name: JAIMIE MCGOVERN Diagnostic Radiology ACCESSION EXAM DATE/TIME PROCEDURE ORDERING PROVIDER [id number] 01/07/2022 06:40 EDT CR Chest Portable [id number] -NATHALIE, ANEIL CPT code 36236 Reason For Exam (CR Chest Portable) patient with desaturation and tacypnea Report PORTABLE CHEST: INDICATION: Tachypnea COMPARISON: 01/06/2022 Obtained at 0627 hours. A single portable AP radiograph of the chest was obtained. The heart is normal in size. The mediastinal silhouette is normal. Again seen is a moderate right-sided pleural effusion with atelectasis of the right base. There is a small left effusion with linear atelectasis. There is biapical pleural thickening. Arthritic changes of the spine and shoulders are present. IMPRESSION: Chronic interstitial changes. Bilateral effusions and atelectasis, right greater than left. Report Dictated on Final Dictated: 01/07/2022 7:25 am Dictating Physician: DO BLANKENSHIP ALFRED Signed Date and Time: 01/07/2022 7:27 am Signed by: DO BLANKENSHIP ALFRED Transcribed Date and Time: 01/07/2022 7:25 Normal [facility] Hemogram w/ Autodiffon 01-07 Abs Baso Cnt 0.1 10*3/uL Normal 0.0-0.2 [facility] Comment on above: Performed By: #### H EMDLavon BMP3M #### [address] [place] [address] Abs Neutrophile Cnt 8.9 10*3/uL High 1.8-7.0 [facility] Comment on above: Performed By: #### H EMDLavon BMP3M #### [address] [address] [place] [address] Basophils/100 WBC (Bld) 0.6 % Normal 0.0-2.0 [facility] Comment on above: Performed By: #### H EMDLavon BMP3M #### [address] [address] Eosinophils (Bld) [#/Vol] 0.1 10*3/uL Normal 0.0-0.5 [facility] Comment on above: Performed By: #### H EMDF BMP3M #### [address] [place] [address] Eosinophils/100 WBC (Bld) 1.1 % Normal 1.0-6.0 [facility] Comment on above: Performed By: #### H EMDF BMP3M #### [address] [address] Granulocytes/100 WBC (Bld) 79.2 % Normal 40.0-80.0 [facility] Comment on above: Performed By: #### H EMDF BMP3M #### [address] Lymphocytes (Bld) [#/Vol] 0.9 10*3/uL Low 1.0-4.3 [facility] Comment on above: Performed By: #### H LALA BMP3M #### [facility] [address] [place] Lymphocytes/100 WBC (Bld) 8.4 % Low 20.0-40.0 [facility] Comment on above: Performed By: #### H LALA BMP3M #### [facility] [address] [place] Monocytes (Bld) [#/Vol] 1.2 10*3/uL High 0.0-0.8 [facility] Comment on above: Performed By: #### H LALA BMP3M #### [address] [address] [place], [place] Monocytes/100 WBC (Bld) 10.7 % High 2.0-10.0 [facility] Comment on above: Performed By: #### H LALA BMP3M #### [facility] [address] [place] Erythrocyte distribution width (RBC) [Ratio] 18.6 % High 11.5-14.5 [facility] Comment on above: Performed By: #### H LALA BMP3M #### [facility] [address] [place] Hematocrit (Bld) [Volume fraction] 34.9 % Low 35.0-47.0 [facility] Comment on above: Performed By: #### H LALA BMP3M #### [facility] [address] [place] Hemoglobin (Bld) [Mass/Vol] 11.2 g/dL Low 11.7-16.0 [facility] Comment on above: Performed By: #### H LALA BMP3M #### [facility] [address] [place] MCH (RBC) [Entitic mass] 34.1 pg High 26.0-34.0 [facility] Comment on above: Performed By: #### MAGDALENA BOBO3M #### [address] [address] [place] MCHC 32.1 % Normal 32.0-36.0 [facility] Comment on above: Performed By: #### MAGDALENA BOBO3M #### [address] [address] [place] MCV (RBC) [Entitic vol] 106.4 fL High 79.0-98.0 [facility] Comment on above: Performed By: #### MAGDALENA BBOO3M #### [address] [address] [address] [place] Platelet mean volume (Bld) [Entitic vol] 7.3 fL Low 7.4-12.4 [facility] Comment on above: Result Comment: MPV is a calculated measurement using platelet volume ratio. Performed By: #### MAGDALENA BOBO3M #### [address] [address] [address] [place], [place] Platelets (Bld) [#/Vol] 725 10*3/uL High 140-440 [facility] Comment on above: Performed By: #### MAGDALENA BOBO3M #### [address] [address] [address] [place] RBC (Bld) [#/Vol] 3.28 10*6/uL Low 3.80-5.20 [facility] Comment on above: Performed By: #### Micheal REEVES BMP3M #### [address] [address] [address] [place] WBC (Bld) [#/Vol] 10.8 10*3/uL High 3.6-10.7 [facility] Comment on above: Performed By: #### MAGDALENA BOBO3M #### [address] [address] [place], [place] No Panel Informationon 01-07 Radiology Study observation (narrative) [facility] Work Phone: [id number] 01-07-2022 SARS-CoV-2 (COVID-19) RNA LISE+probe Ql (Unsp spec) SARS-CoV-2 --> Status: F Not Detected. Expected result: Not Detected _ Method: Real-time, RT-PCR Negative results do not preclude SARS-CoV-2 infection and should not be used as the sole basis for treatment or other patient management decisions. This assay was developed by [employer] and distributed under an Emergency Use Authorization (EUA) granted by the FDA for the qualitative detection of SARS-CoV-2 nucleic acid. Provider and patient fact sheets can be found at https://www.[facility].gov/ edia/993690/download and https://www.fda.gov/ edia/662368/download. Expected result: Not Detected _ Method: Real-time, RT-PCR Negative results do not preclude SARS-CoV-2 infection and should not be used as the sole basis for treatment or other patient management decisions. This assay was developed by [employer] and distributed under an Emergency Use Authorization (EUA) granted by the FDA for the qualitative detection of SARS-CoV-2 nucleic acid. Provider and patient fact sheets can be found at https://www.[employer].gov/m edia/766534/download and https://www.[employer].gov/ edia/605462/download. Normal [facility] Comment on above: Performed By: #### B MP3M, HEMDF, MG3, PHOS3, PCAL #### [facility] [address] [place] [phone] VL LOWER EXTREMITY BILATERAL VENOUS DUPLEXon 01-07-2022 [facility] Work Phone: VL LOWER EXTREMITY BILATERAL VENOUS DUPLEXOrdered By: Rob Combs on 01-07-2022 [facility] Work Phone: VL Venous Duplex US Lower Ex t Bilateralon 01-07-2022 VL Venous Duplex US Lower Ext Bilateral Patient Name: JAIMIE MCGOVERN Ultrasound ACCESSION EXAM DATE/TIME PROCEDURE ORDERING PROVIDER [id number] 01/07/2022 14:19 EDT VL Venous Duplex US [id number] -NATHALIE, ANEIL Lower Ext Bilateral CPT code 32739 Reason For Exam (VL Venous Duplex US Lower Ext Bilateral) edema Report [facility] -------- Lower Extremity Venous Duplex Report Patient Olimpia, : 1945 Study 01/07/2022 Name: Jaimie (76yrs) Date: Patient [id number] Age: 76 Account: [id number] ID: Gender: F Loc: 6104 BP: Ordering Physician: [employer] Secretary: Carolina Mccormack RVT Interpreting Physician: Rob Combs MD -------- Location: [facility] -------- Indications: BLE edema. -------- Conclusions 1. There is no evidence of acute deep or superficial venous thrombosis noted in the right lower extremity. 2. There is no evidence of acute deep or superficial venous thrombosis noted in the left lower extremity. -------- History: Risk factors: Immobility. Age over 65 years. -------- Study data: Complete lower extremity venous duplex evaluation. Grayscale 2D imaging, color Doppler imaging, and spectral Doppler analysis. Location: Vascular laboratory. Procedure: A vascular evaluation was performed with the patient in the supine position. Images were obtained using a Fullscreens vascular ultrasound machine. -------- Ultrasound Report Venous flow and imaging: + -----+-------+------- -------+ +Location +Overall+Properties + + -----+-------+------- -------+ +R CFV +Patent +Normal phasicity; spontaneous; + + + +normal augmentation; compressible + + -----+-------+------- -------+ +R saphenofemoral junction+Patent +Compressible + + -----+-------+------- -------+ +R profunda femoral +Patent + + + -----+-------+------- -------+ +R FV - prox. +Patent +Compressible + + -----+-------+------- -------+ +R FV - mid +Patent +Normal phasicity; spontaneous; + + + +normal augmentation; compressible + + -----+-------+------- -------+ +R FV - distal +Patent +Compressible + + -----+-------+------- -------+ +R popliteal +Patent +Normal phasicity; spontaneous; + + + +normal augmentation; compressible + + -----+-------+------- -------+ +R gastrocnemius +Patent +Compressible + + -----+-------+------- -------+ +R PTV +Patent +Compressible + + -----+-------+------- -------+ +R peroneal +Patent +Compressible + + -----+-------+------- -------+ +R soleal +Patent +Compressible + + -----+-------+------- -------+ +R GSV +Patent +Compressible + + -----+-------+------- -------+ +L CFV +Patent +Normal phasicity; spontaneous; + + + +normal augmentation; compressible + + -----+-------+------- -------+ +L saphenofemoral junction+Patent +Compressible + + -----+-------+------- -------+ +L profunda femoral +Patent + + + -----+-------+------- -------+ +L FV - prox. +Patent +Compressible + + -----+-------+------- -------+ +L FV - mid +Patent +Normal phasicity; spontaneous; + + + +normal augmentation; compressible + + -----+-------+------- -------+ +L FV - distal +Patent +Compressible + + -----+-------+------- -------+ +L popliteal +Patent +Normal phasicity; spontaneous; + + + +normal augmentation; compressible + + -----+-------+------- -------+ +L gastrocnemius +Patent +Compressible + + -----+-------+------- -------+ +L PTV +Patent +Compressible + + -----+-------+------- -------+ +L peroneal +Patent (more content not included)... Normal [facility] XR CHEST PORTABLEon 01-08-20 22 [facility] [employer] Work Phone: XR CHEST PORTABLEOrdered By: Jack Blankenship on 01-07-2022 [facility] Work Phone: Basic Metabolic Panelon 12-24 Anion gap [Moles/Vol] 8 mmol/L Normal 3-13 [facility] Comment on above: Performed By: #### H LALA BMP3M ####[facility] [employer] [id number] [place] [address] Calcium [Mass/Vol] 8.4 mg/dL Normal 8.4-10.4 [facility] Comment on above: Performed By: #### H LALA BMP3M ####[facility] [employer]. [id number] [place] [address] CO2 [Moles/Vol] 22 mmol/L Normal 22-30 [facility] Comment on above: Performed By: #### H MAGDALENA REEVES3M ####[address] [place], [place] Creatinine [Mass/Vol] 0.60 mg/dL Normal 0.52-1.25 [facility] Comment on above: Performed By: #### H LALA BMP3M ####[address] [place], [place] GFR/1.73 sq M.predicted among blacks MDRD (S/P/Bld) [Vol rate/Area] mL/min/{1.73_m2} Normal >60 [facility] Comment on above: Performed By: #### H MAGDALENA REEVES3M ####[address] GFR/1.73 sq M.predicted among non-blacks MDRD (S/P/Bld) [Vol rate/Area] 89.5 mL/min/{1.73_m2} Normal >60 [facility] Comment on above: Result Comment: KDIG O guidelines provide the following GFR categories: Stage GFR(ml/min/1.73 m2) Terms G1 >=90 Normal or high G2 60-89 Mildly decreased* G3a 45-59 Mildly to moderately decreased G3b 30-44 Moderately to severely decreased G4 15-29 Severely decreased G5 <15 Kidney failure *Relative to young adult level. In the absence of evidence of kidney damage, neither GFR category G1 nor G2 fulfill the criteria for CKD. The CKD-EPI equation is validated in individuals 18 years of age and older. Currently the best equation for estimating glomerular filtration rate (GFR) from serum creatinine in children is the Bedside Velez equation. It is less accurate in patients with extremes of muscle mass, restriction of dietary protein, ingestion of creatine, extra-renal metabolism of creatinine, or treatment with medications that affect renal tubular creatinine secretion. Performed By: #### H MAGDALENA REEVES3M ####[address] [place], [place] Glucose [Mass/Vol] 107 mg/dL High 70-100 [facility] Comment on above: Performed By: #### H MAGDALENA REEVES3M ####[facility] [address] [place] [address] Urea nitrogen [Mass/Vol] 8 mg/dL Low 9-20 [facility] Comment on above: Performed By: #### H MAGDALENA REEVES3M ####[facility] [place] [address] Chloride [Moles/Vol] 107 mmol/L Normal 98-107 [facility] Comment on above: Performed By: #### H MAGDALENA REEVES3M ####[facility] [place] [address] Potassium [Moles/Vol] 4.2 mmol/L Normal 3.5-5.1 [facility] Comment on above: Performed By: #### H MAGDALENA REEVES3M ####[address] [place] [address] Sodium [Moles/Vol] 137 mmol/L Normal 135-145 [facility] Comment on above: Performed By: #### H MAGDALENA REEVES3M ####[address] [place] [address] Basic Metabolic Panel w/ Ref emmanuel to MGon 01-06-2022 Anion gap [Moles/Vol] 8 mmol/L 3 - 13 mmol/L [facility] Calcium [Mass/Vol] 8.4 mg/dL 8.4 - 10. 4 mg/dL [facility] Chloride [Moles/Vol] 107 mmol/L 98 - 10 7 mmol/L [facility] CO2 [Moles/Vol] 22 mmol/L 22 - 30 mmol/L [facility] Creatinine [Mass/Vol] 0.6 mg/dL 0.52 - 1.25 mg/dL [facility] eGFR mL/min 60 - P INF mL/min [facility] EGFR IF NonAfrican Trinidadian 89.5 mL/min 60 - PINF mL/min [facility] Glucose [Mass/Vol] 107 mg/dL High 70 - 100 mg/dL [facility] Interpretation and review of laboratory results Abnormal [facility] Potassium [Moles/Vol] 4.2 mmol/L 3.5 - 5.1 mmol/L [facility] Sodium [Moles/Vol] 137 mmol/L 135 - 145 mmol/L [facility] Urea nitrogen (BldV) [Mass/Vol] 8 mg/dL Low 9 - 20 mg/dL [facility] CBC with Auto Differentialon 01-06-2022 Absolute Baso # 0.2 10*3/uL 0 - 0.2 10*3/uL [facility] Absolute Neut # 10.5 10*3/uL High 1.8 - 7 10*3/uL [facility] Basophils/100 WBC (Bld) 1.4 % 0 - 2 % [facility] Eosinophils (Bld) [#/Vol] 0.1 10*3/uL 0 - 0.5 10*3/uL [facility] Eosinophils/100 WBC (Bld) 0.9 % Low 1 - 6 % [facility] Granulocytes/100 WBC (Bld) 83.1 % High 40 - 80 % [facility] Hematocrit (Bld) [Volume fraction] 33.4 % Low 35 - 47 % [facility] Hemoglobin (Bld) [Mass/Vol] 10.9 g/dL Low 11.7 - 16 g/dL [facility] Interpretation and review of laboratory results Abnormal [facility] Lymphocytes (Bld) [#/Vol] 0.8 10*3/uL Low 1 - 4.3 10*3/uL [facility] Lymphocytes/100 WBC (Bld) 6.3 % Low 20 - 40 % [facility] MCH (RBC) [Entitic mass] 34.5 pg High 26 - 34 pg [facility] MCHC (RBC) [Mass/Vol] 32.7 % 32 - 36 % [facility] MCV (RBC) [Entitic vol] 105.5 fL High 79 - 98 fL [facility] Monocytes (Bld) [#/Vol] 1.0 10*3/uL High 0 - 0.8 10*3/uL [facility] Monocytes/100 WBC (Bld) 8.3 % 2 - 10 % [facility] Platelet distribution width (Bld) [Ratio] 17.8 % High 11.5 - 14.5 % [facility] Platelet mean volume (Bld) [Entitic vol] 7.3 fL Low 7.4 - 12.4 fL [facility] Platelets (Bld) [#/Vol] 647 10*3/uL High 140 - 440 10*3/uL [facility] RBC (Bld) [#/Vol] 3.17 10*6/uL Low 3.8 - 5.2 10*6/uL [facility] WBC (Bld) [#/Vol] 12.3 10*3/uL High 3.6 - 10.7 10*3/uL [facility] CR Chest Portableon 01-07-20 CR Chest Portable Patient Name: JAIMIE MCGOVERN Diagnostic Radiology ACCESSION EXAM DATE/TIME PROCEDURE ORDERING PROVIDER [id number] 01/06/2022 06:48 EDT CR Chest Portable [id number] -NATHALIE, ANEIL CPT code 41367 Reason For Exam (CR Chest Portable) patient with desaturation and tacypnea Report INDICATION: 76-year-old; inpatient; desaturation and tachypnea. VIEWS: Portable COMPARISON: 01/05/2022 FINDINGS: The trachea is midline. The cardiac silhouette is upper limits of normal. Blunting of left costophrenic angle with left lung base opacities. Right lower lung opacities obscure the hemidiaphragm and blunts the costophrenic angle. There is thickening of the interstitium. The osseous structures appear stable. IMPRESSION: 1. No significant change of a right small to moderate pleural effusion with compressive atelectasis and/or infiltrate.. 2. Mild increase in size of a small a left pleural effusion with possible atelectasis and/or infiltrate. Report Dictated on Final Dictated: 01/06/2022 8:25 am Dictating Physician: MD CARLIN JENNIFER R Signed Date and Time: 01/06/2022 8:27 am Signed by: MD CARLIN JENNIFER R Transcribed Date and Time: 01/06/2022 8:25 Normal [facility] Culture, Body Fluidon 2021 Body Fluid Cult/Smear, Aerobic No growth at 5 days. [facility] Gram Stain Result [facility] w/ Autodiffon 01-06 Abs Baso Cnt 0.2 10*3/uL Normal 0.0-0.2 [facility] Comment on above: Performed By: #### H EMDF, BMP3M ####[address] [place] [address] Abs Neutrophile Cnt 10.5 10*3/uL High 1.8-7.0 [facility] Comment on above: Performed By: #### H LALA BMP3M ####[address] [place] [address] Basophils/100 WBC (Bld) 1.4 % Normal 0.0-2.0 [facility] Comment on above: Performed By: #### H LALA BMP3M ####[address] [place] [address] Eosinophils (Bld) [#/Vol] 0.1 10*3/uL Normal 0.0-0.5 [facility] Comment on above: Performed By: #### H LALA BMP3M ####[address] [address] Eosinophils/100 WBC (Bld) 0.9 % Low 1.0-6.0 [facility] Comment on above: Performed By: #### H LALA BMP3M ####[address] [address] Granulocytes/100 WBC (Bld) 83.1 % High 40.0-80.0 [facility] Comment on above: Performed By: #### H LALA BMP3M ####[address] [address] Lymphocytes (Bld) [#/Vol] 0.8 10*3/uL Low 1.0-4.3 [facility] Comment on above: Performed By: #### H LALA BMP3M ####[address] [place] [address] Lymphocytes/100 WBC (Bld) 6.3 % Low 20.0-40.0 [facility] Comment on above: Performed By: #### H LALA BMP3M ####[address] [address] Monocytes (Bld) [#/Vol] 1.0 10*3/uL High 0.0-0.8 [facility] Comment on above: Performed By: #### H MAGDALENA REEVES3M ####[address] Monocytes/100 WBC (Bld) 8.3 % Normal 2.0-10.0 [facility] Comment on above: Performed By: #### H MAGDALENA REEVES3M ####[address] Erythrocyte distribution width (RBC) [Ratio] 17.8 % High 11.5-14.5 [facility] Comment on above: Performed By: #### H MAGDALENA REEVES3M ####[address] Hematocrit (Bld) [Volume fraction] 33.4 % Low 35.0-47.0 [facility] Comment on above: Performed By: #### H MAGDALENA REEVES3M ####[address] Hemoglobin (Bld) [Mass/Vol] 10.9 g/dL Low 11.7-16.0 [facility] Comment on above: Performed By: #### MAGDALENA BOBO3M ####[address] [place], [place] MCH (RBC) [Entitic mass] 34.5 pg High 26.0-34.0 [facility] Comment on above: Performed By: #### H LALA BMP3M ####[address] MCHC 32.7 % Normal 32.0-36.0 [facility] Comment on above: Performed By: #### H LALA BMP3M ####[address] MCV (RBC) [Entitic vol] 105.5 fL High 79.0-98.0 [facility] Comment on above: Performed By: #### H LALA BMP3M ####[address], [place] Platelet mean volume (Bld) [Entitic vol] 7.3 fL Low 7.4-12.4 [facility] Comment on above: Result Comment: MPV is a calculated measurement using platelet volume ratio. Performed By: #### H LALA BMP3M ####[address] [place], [place] Platelets (Bld) [#/Vol] 647 10*3/uL High 140-440 [facility] Comment on above: Performed By: #### H EMDLavon BMP3M ####[address] [place], [place] RBC (Bld) [#/Vol] 3.17 10*6/uL Low 3.80-5.20 [facility] Comment on above: Performed By: #### H EMDF BMP3M ####[address] [place], [place] WBC (Bld) [#/Vol] 12.3 10*3/uL High 3.6-10.7 [facility] Comment on above: Performed By: #### H EMDLavon BMP3M ####[facility] [employer]. [address] No Panel Informationon 01-06 Radiology Study observation (narrative) [facility] Work Phone: US GUIDE THORACENTESISon [facility] Work Phone: [facility] Work Phone: US Thora-Aspir Pleura w/ Shawanda geon 01-06-2022 US Thora-Aspir Pleura w/ Image Patient Name: JAIMIE MCGOVERN Ultrasound ACCESSION EXAM DATE/TIME PROCEDURE ORDERING PROVIDER [id number] 01/06/2022 15:22 EDT US Thora-Aspir Pleura w/ [id number] -PATRICK, MELY Image CPT code 47786 Reason For Exam (US Thora-Aspir Pleura w/ Image) persistent R-sided pleural effusion Report PROCEDURE: Ultrasound-guided thoracentesis Procedural Personnel Attending physician(s): Rafael Liao M.D. Advanced practice provider(s): Nicola Rob PA-C Indication: Pleural effusion Additional clinical history: None Complications: No immediate complications. IMPRESSION: Successful ultrasound-guided right thoracentesis with drainage of 40 milliliters of tea-colored fluid from loculated fluid pocket. Attending physician was present for the entirety of the procedure. PROCEDURE SUMMARY: - Limited thoracic ultrasound - Ultrasound-guided thoracentesis - Additional procedure(s): None PROCEDURE DETAILS: Pre-procedure Consent: Informed consent for the procedure including risks, benefits and alternatives was obtained and time-out was performed prior to the procedure. Preparation: The site was prepared and draped using maximal sterile barrier technique including cutaneous antisepsis. Anesthesia/sedation None Limited thoracic ultrasound Limited thoracic ultrasound was performed using a curved transducer. A safe window for thoracentesis was identified. Moderate to large pleural effusion was seen on the side of aspiration. The contralateral side was not investigated. Ultrasound Report Thoracentesis Local anesthesia was administered. Ultrasound was used to pick a safe access site. A permanent image was stored. The pleural space was accessed and fluid return confirmed position. The fluid was drained. Catheter placed: 5F Yueh Closure The catheter was removed. A sterile bandage was applied. Post-drainage hemithorax findings: Minimal effusion Additional Details Additional description of procedure: None Equipment details: None Specimens removed: Pleural fluid Estimated blood loss (mL): Less than 10 Report Dictated on Final Dictated: 01/06/2022 4:08 pm Dictating Physician: MD LIAO MALAY Signed Date and Time: 01/06/2022 4:29 pm Signed by: MD LIAO MALAY Transcribed Date and Time: 01/06/2022 4:09 Normal [facility] XR CHEST PORTABLEon 01-07-20 22 [facility] Work Phone: [facility] Work Phone: Add On Lab Teston 01-05-2022 Add On Accepted [facility] Add on test from HISon 01-05 Add on test from HIS Accepted Normal [facility] Comment on above: Result Comment: Spec imen available & acceptable for analysis. Performed By: #### A DDON ####[facility] [place], [place] Basic Metabolic Panelon 12-24 Calcium [Mass/Vol] 8.0 mg/dL Low 8.4-10.4 [facility] Comment on above: Performed By: #### H EMDF, BMP3M #### [facility] [address] [place], [place] Anion gap [Moles/Vol] 8 mmol/L Normal 07-05 [facility] Comment on above: Performed By: #### H EMDF, BMP3M #### [facility] [address] [place], [place] CO2 [Moles/Vol] 17 mmol/L Low - [facility] Comment on above: Performed By: #### H EMDF, BMP3M #### [facility] [address] [place], [place] Creatinine [Mass/Vol] 0.46 mg/dL Low 0.52-1.25 [facility] Comment on above: Performed By: #### H EMDF, BMP3M #### [facility] [address] [place], [place] eGFR OTHER > 90.0 Normal >60 [facility] Comment on above: Result Comment: KDIG O guidelines provide the following GFR categories: Stage GFR(ml/min/1.73 m2) Terms G1 >=90 Normal or high G2 60-89 Mildly decreased* G3a 45-59 Mildly to moderately decreased G3b 30-44 Moderately to severely decreased G4 15-29 Severely decreased G5 <15 Kidney failure *Relative to young adult level. In the absence of evidence of kidney damage, neither GFR category G1 nor G2 fulfill the criteria for CKD. The CKD-EPI equation is validated in individuals 18 years of age and older. Currently the best equation for estimating glomerular filtration rate (GFR) from serum creatinine in children is the Bedside Velez equation. It is less accurate in patients with extremes of muscle mass, restriction of dietary protein, ingestion of creatine, extra-renal metabolism of creatinine, or treatment with medications that affect renal tubular creatinine secretion. Performed By: #### Micheal REEVES BMP3M #### [address] [place], [place] GFR/1.73 sq M.predicted among blacks MDRD (S/P/Bld) [Vol rate/Area] mL/min/{1.73_m2} Normal >60 [facility] Comment on above: Performed By: #### H LALA BMP3M #### [address] [place] Glucose [Mass/Vol] 64 mg/dL Low 70-100 [facility] Comment on above: Performed By: #### Micheal REEVES BMP3M #### [address] [place], [place] Urea nitrogen [Mass/Vol] 6 mg/dL Low 9-20 [facility] Comment on above: Performed By: #### H LALA BMP3M #### [address] [place] Chloride [Moles/Vol] 108 mmol/L High 98-107 [facility] Comment on above: Performed By: #### H LALA BMP3M #### [address] [place] Potassium [Moles/Vol] 4.7 mmol/L Normal 3.5-5.1 [facility] Comment on above: Performed By: #### Micheal REEVES BMP3M #### [address] [place] Sodium [Moles/Vol] 133 mmol/L Low 135-145 [facility] Comment on above: Performed By: #### Micheal REEVES BMP3M #### [address] [place], [place] Basic Metabolic Panel w/ Ref emmanuel to MGon 01-05-2022 Anion gap [Moles/Vol] 8 mmol/L 3 - 13 mmol/L [facility] Calcium [Mass/Vol] 8.0 mg/dL Low 8.4 - 10. 4 mg/dL [facility] Chloride [Moles/Vol] 108 mmol/L High 98 - 10 7 mmol/L [facility] CO2 [Moles/Vol] 17 mmol/L Low 22 - 30 mmol/L [facility] Creatinine [Mass/Vol] 0.46 mg/dL Low 0.52 - 1.25 mg/dL [facility] eGFR mL/min 60 - P INF mL/min [facility] EGFR IF NonAfrican Trinidadian mL/min 60 - PINF mL/min [facility] Glucose [Mass/Vol] 64 mg/dL Low 70 - 100 mg/dL [facility] Interpretation and review of laboratory results Abnormal [facility] Potassium [Moles/Vol] 4.7 mmol/L 3.5 - 5.1 mmol/L [facility] Sodium [Moles/Vol] 133 mmol/L Low 135 - 145 mmol/L [facility] Urea nitrogen (BldV) [Mass/Vol] 6 mg/dL Low 9 - 20 mg/dL [facility] CBC with Auto Differentialon 01-05-2022 Absolute Baso # 0.0 10*3/uL 0 - 0.2 10*3/uL [facility] Absolute Neut # 11.3 10*3/uL High 1.8 - 7 10*3/uL [facility] Basophils/100 WBC (Bld) 0.3 % 0 - 2 % S [facility] Eosinophils (Bld) [#/Vol] 0.1 10*3/uL 0 - 0.5 10*3/uL [facility] Eosinophils/100 WBC (Bld) 1.1 % 1 - 6 % [facility] Granulocytes/100 WBC (Bld) 84.2 % High 40 - 80 % [facility] Hematocrit (Bld) [Volume fraction] 35.7 % 35 - 47 % [facility] Hemoglobin (Bld) [Mass/Vol] 11.6 g/dL Low 11.7 - 16 g/dL [facility] Interpretation and review of laboratory results Abnormal [facility] Lymphocytes (Bld) [#/Vol] 0.8 10*3/uL Low 1 - 4.3 10*3/uL [facility] Lymphocytes/100 WBC (Bld) 6.0 % Low 20 - 40 % [facility] MCH (RBC) [Entitic mass] 35.4 pg High 26 - 34 pg [facility] MCHC (RBC) [Mass/Vol] 32.6 % 32 - 36 % [facility] MCV (RBC) [Entitic vol] 108.5 fL High 79 - 98 fL S [facility] Monocytes (Bld) [#/Vol] 1.1 10*3/uL High 0 - 0.8 10*3/uL [facility] Monocytes/100 WBC (Bld) 8.4 % 2 - 10 % [facility] Platelet distribution width (Bld) [Ratio] 18.1 % High 11.5 - 14.5 % [facility] Platelet mean volume (Bld) [Entitic vol] 7.1 fL Low 7.4 - 12.4 fL [facility] Platelets (Bld) [#/Vol] 500 10*3/uL High 140 - 440 10*3/uL [facility] RBC (Bld) [#/Vol] 3.29 10*6/uL Low 3.8 - 5.2 10*6/uL [facility] WBC (Bld) [#/Vol] 13.4 10*3/uL High 3.6 - 10.7 10*3/uL [facility] CR Chest Portableon 01-06-20 CR Chest Portable Patient Name: JAIMIE MCGOVERN Diagnostic Radiology ACCESSION EXAM DATE/TIME PROCEDURE ORDERING PROVIDER [id number] 01/05/2022 06:51 EDT CR Chest Portable [id number] -NATHALIE, ANEIL CPT code 52374 Reason For Exam (CR Chest Portable) patient with desaturation and tacypnea Report INDICATION: 76-year-old; inpatient; patient with desaturation; pleural effusion; L2 vertebral body fracture. VIEWS: Portable COMPARISON: 01/04/2022 FINDINGS: Interval removal of a right chest tube/pigtail catheter. The osseous structures are stable. The bone mineralization is decreased (osteopenia versus osteoporosis). The trachea is midline. The cardiac silhouette is within normal limits. Improved aeration of the left lung base. Bibasilar opacities are present. Right lower lung opacities silhouette the hemidiaphragm and costophrenic angle. There is thickening of the pleura of the right hemithorax. IMPRESSION: 1. Interval removal of right pigtail catheter with no change of the right pleural effusion with compressive atelectasis and/or infiltrate. 2. Improved aeration of the left lung base with a probable small residual left pleural effusion and/or infiltrate. Report Dictated on Final Dictated: 01/05/2022 9:19 am Dictating Physician: MD CARLIN JENNIFER R Signed Date and Time: 01/05/2022 9:23 am Signed by: MD CARLIN JENNIFER R Transcribed Date and Time: 01/05/2022 9:19 Normal [facility] Hemogram w/ Autodiffon 01-05 Abs Baso Cnt 0.0 10*3/uL Normal 0.0-0.2 [facility] Comment on above: Performed By: #### H EMDF, BMP3M #### [facility] [address] [place], [place] Abs Neutrophile Cnt 11.3 10*3/uL High 1.8-7.0 [facility] Comment on above: Performed By: #### H EMDF, BMP3M #### [facility] [address] [place], [place] Basophils/100 WBC (Bld) 0.3 % Normal 0.0-2.0 S [facility] Comment on above: Performed By: #### H EMDF, BMP3M #### [facility] [address] [place] [address] Eosinophils (Bld) [#/Vol] 0.1 10*3/uL Normal 0.0-0.5 [facility] Comment on above: Performed By: #### H EMDF, BMP3M #### [facility] [address] [place] Eosinophils/100 WBC (Bld) 1.1 % Normal 1.0-6.0 [facility] Comment on above: Performed By: #### H EMDF, BMP3M #### [facility] [address] [place], [place] Erythrocyte distribution width (RBC) [Ratio] 18.1 % High 11.5-14.5 [facility] Comment on above: Performed By: #### H MAGDALENA REEVES3M #### [address] Granulocytes/100 WBC (Bld) 84.2 % High 40.0-80.0 [facility] Comment on above: Performed By: #### MAGDALENA BOBO3M #### [address] [place], [place] Hematocrit (Bld) [Volume fraction] 35.7 % Normal 35.0-47.0 [facility] Comment on above: Performed By: #### H MAGDALENA REEVES3M #### [address] Hemoglobin (Bld) [Mass/Vol] 11.6 g/dL Low 11.7-16.0 [facility] Comment on above: Performed By: #### MAGDALENA BOBO3M #### [address] [place], [place] Lymphocytes (Bld) [#/Vol] 0.8 10*3/uL Low 1.0-4.3 [facility] Comment on above: Performed By: #### MAGDALENA BOBO3M #### [address] Lymphocytes/100 WBC (Bld) 6.0 % Low 20.0-40.0 [facility] Comment on above: Performed By: #### Micheal REEVES BMP3M #### [address] [place] MCH (RBC) [Entitic mass] 35.4 pg High 26.0-34.0 [facility] Comment on above: Performed By: #### MAGDALENA BOBO3M #### [address] MCHC 32.6 % Normal 32.0-36.0 [facility] Comment on above: Performed By: #### Micheal REEVES BMP3M #### [address] [place] MCV (RBC) [Entitic vol] 108.5 fL High 79.0-98.0 S [facility] Comment on above: Performed By: #### H LALA BMP3M #### [address] Monocytes (Bld) [#/Vol] 1.1 10*3/uL High 0.0-0.8 [facility] Comment on above: Performed By: #### H LALA BMP3M #### [address] Monocytes/100 WBC (Bld) 8.4 % Normal 2.0-10.0 [facility] Comment on above: Performed By: #### H LALA BMP3M #### [address] Platelet mean volume (Bld) [Entitic vol] 7.1 fL Low 7.4-12.4 [facility] Comment on above: Result Comment: MPV is a calculated measurement using platelet volume ratio. Performed By: #### H LALA BMP3M #### [address] Platelets (Bld) [#/Vol] 500 10*3/uL High 140-440 [facility] Comment on above: Performed By: #### H LALA BMP3M #### [address] RBC (Bld) [#/Vol] 3.29 10*6/uL Low 3.80-5.20 [facility] Comment on above: Performed By: #### H LALA BMP3M #### [address] WBC (Bld) [#/Vol] 13.4 10*3/uL High 3.6-10.7 [facility] Comment on above: Performed By: #### H LALA BMP3M #### [address] Hepatic Functionon 2 ALP [Catalytic activity/Vol] 94 U/L Normal 38-126 [facility] Comment on above: Result Comment: Slig htly hemolysed, interpret with caution. Performed By: #### H LALA BMP3M #### [facility] [address] [place], [place] ALT [Catalytic activity/Vol] 23 U/L Normal 0-34 [facility] Comment on above: Result Comment: The ALT test is performed by an updated assay method. Please note that the reference intervals have been changed and are now sex specific. Performed By: #### H LALA BMP3M #### [address] [place], [place] AST [Catalytic activity/Vol] 55 U/L High 15-46 [facility] Comment on above: Result Comment: Slig htly hemolysed, interpret with caution. Performed By: #### H LALA BMP3M #### [address] [place] Bilirubin [Mass/Vol] 0.7 mg/dL Normal 0.2-1.3 [facility] Comment on above: Performed By: #### H LALA BMP3M #### [address] [place] Bilirubin.indirect [Mass/Vol] 0.0 mg/dL Normal 0.0-0.3 [facility] Comment on above: Performed By: #### H LALA BMP3M #### [address] [place] Protein [Mass/Vol] 5.5 g/dL Low 6.3-8.2 [facility] Comment on above: Performed By: #### H LALA BMP3M #### [address] [place] Albumin [Mass/Vol] 3.0 g/dL Low 3.5-5.0 [facility] Comment on above: Performed By: #### H LALA BMP3M #### [address] [place] Hepatic Function Panelon Albumin [Mass/Vol] 3.0 g/dL Low 3.5 - 5 g/dL [facility] ALP (Bld) [Catalytic activity/Vol] 94 U/L 38 - 126 U/L [facility] ALT [Catalytic activity/Vol] 23 U/L 0 - 34 U/L [facility] AST [Catalytic activity/Vol] 55 U/L High 15 - 46 U/L [facility] Bilirubin [Mass/Vol] 0.7 mg/dL 0.2 - 1 .3 mg/dL [facility] Bilirubin.indirect [Mass/Vol] 0.0 mg/dL 0 - 0.3 mg/dL [facility] Free PSA/Total PSA [Mass fraction] 5.5 g/dL Low 6.3 - 8.2 g/dL [facility] Interpretation and review of laboratory results Abnormal [facility] Procalcitoninon 01-05-2022 Procalcitonin 14.05 ng/mL High 0.00-0.09 [facility] Comment on above: Performed By: #### H EMDF, BMP3M #### [facility] [address] [place] [address] Interpretation See Below [facility] Interpretation and review of laboratory results Abnormal [facility] Procalcitonin 14.05 ng/mL High 0 - 0.09 ng/mL [facility] X[facility] CHEST PORTABLEon 01-06-20 22 [facility] Work Phone: [facility] Work Phone: Radiology Study observation (narrative) [facility] Work Phone: Add On Lab Teston 01-04-2022 Add On Accepted [facility] Add on test from HISon 01-04 Add on test from HIS Accepted Normal [facility] Comment on above: Result Comment: Spec imen available & acceptable for analysis. Performed By: #### A DDON ####[facility] [place] [address] Albumin, Body Fluidon 2021 Fluid Type Thoracentesis Normal [facility] Comment on above: Performed By: #### B MP3M, HEMDF, MG3, PHOS3, PCAL #### [facility] [address] [place] Albumin [Mass/Vol] 1.3 g/dL Normal No Range [facility] Comment on above: Performed By: #### B MP3M, HEMDF, MG3, PHOS3, PCAL #### [facility] [address] [place] Albumin, Fluid 1.3 g/dL No Range [facility] Fluid Type Thoracentesis [facility] Basic Metabolic Panelon 12-24-2021 Anion gap [Moles/Vol] 8 mmol/L Normal 3-13 [facility] Comment on above: Performed By: #### B MP3M, HEMDF, MG3, PHOS3, PCAL #### [address] [place], [place] Calcium [Mass/Vol] 7.9 mg/dL Low 8.4-10.4 [facility] Comment on above: Performed By: #### B MP3M, HEMDF, MG3, PHOS3, PCAL #### [address] [place] CO2 [Moles/Vol] 22 mmol/L Normal 22-30 [facility] Comment on above: Performed By: #### B MP3M, HEMDF, MG3, PHOS3, PCAL #### [address] [place] Creatinine [Mass/Vol] 0.49 mg/dL Low 0.52-1.25 [facility] Comment on above: Performed By: #### B MP3M, HEMDF, MG3, PHOS3, PCAL #### [address] [place], [place] eGFR OTHER > 90.0 Normal >60 [facility] Comment on above: Result Comment: KDIG O guidelines provide the following GFR categories: Stage GFR(ml/min/1.73 m2) Terms G1 >=90 Normal or high G2 60-89 Mildly decreased* G3a 45-59 Mildly to moderately decreased G3b 30-44 Moderately to severely decreased G4 15-29 Severely decreased G5 <15 Kidney failure *Relative to young adult level. In the absence of evidence of kidney damage, neither GFR category G1 nor G2 fulfill the criteria for CKD. The CKD-EPI equation is validated in individuals 18 years of age and older. Currently the best equation for estimating glomerular filtration rate (GFR) from serum creatinine in children is the Bedside Velez equation. It is less accurate in patients with extremes of muscle mass, restriction of dietary protein, ingestion of creatine, extra-renal metabolism of creatinine, or treatment with medications that affect renal tubular creatinine secretion. Performed By: #### B MP3M, HEMDF, MG3, PHOS3, PCAL #### [address] [address] GFR/1.73 sq M.predicted among blacks MDRD (S/P/Bld) [Vol rate/Area] mL/min/{1.73_m2} Normal >60 [facility] Comment on above: Performed By: #### B MP3M, HEMDF, MG3, PHOS3, PCAL #### [address] [place] [address] Glucose [Mass/Vol] 101 mg/dL High 70-100 [facility] Comment on above: Performed By: #### B MP3M, HEMDF, MG3, PHOS3, PCAL #### [address] [address] Urea nitrogen [Mass/Vol] 10 mg/dL Normal 9-20 [facility] Comment on above: Performed By: #### B MP3M, HEMDF, MG3, PHOS3, PCAL #### [address] [place] [address] Chloride [Moles/Vol] 108 mmol/L High 98-107 [facility] Comment on above: Performed By: #### B MP3M, HEMDF, MG3, PHOS3, PCAL #### [address] [place] [address] Potassium [Moles/Vol] 4.0 mmol/L Normal 3.5-5.1 [facility] Comment on above: Performed By: #### B MP3M, HEMDF, MG3, PHOS3, PCAL #### [facility] [address] [place] [address] Sodium [Moles/Vol] 137 mmol/L Normal 135-145 [facility] Comment on above: Performed By: #### B MP3M, HEMDF, MG3, PHOS3, PCAL #### [facility] [address] [place] [address] Basic Metabolic Panel w/ Ref emmanuel to MGon 01-04-2022 Anion gap [Moles/Vol] 8 mmol/L 3 - 13 mmol/L [facility] Calcium [Mass/Vol] 7.9 mg/dL Low 8.4 - 10. 4 mg/dL [facility] Chloride [Moles/Vol] 108 mmol/L High 98 - 10 7 mmol/L [facility] CO2 [Moles/Vol] 22 mmol/L 22 - 30 mmol/L [facility] Creatinine [Mass/Vol] 0.49 mg/dL Low 0.52 - 1.25 mg/dL [facility] eGFR mL/min 60 - P INF mL/min [facility] EGFR IF NonAfrican Trinidadian mL/min 60 - PINF mL/min [facility] Glucose [Mass/Vol] 101 mg/dL High 70 - 100 mg/dL [facility] Interpretation and review of laboratory results Abnormal [facility] Potassium [Moles/Vol] 4.0 mmol/L 3.5 - 5.1 mmol/L [facility] Sodium [Moles/Vol] 137 mmol/L 135 - 145 mmol/L [facility] Urea nitrogen (BldV) [Mass/Vol] 10 mg/dL 9 - 20 mg/dL [facility] CBC with Auto Differentialon 01-04-2022 Absolute Baso # 0.0 10*3/uL 0 - 0.2 10*3/uL [facility] Absolute Neut # 8.3 10*3/uL High 1.8 - 7 10*3/uL [facility] Basophils/100 WBC (Bld) 0.4 % 0 - 2 % [facility] Eosinophils (Bld) [#/Vol] 0.2 10*3/uL 0 - 0.5 10*3/uL [facility] Eosinophils/100 WBC (Bld) 2.2 % 1 - 6 % [facility] Granulocytes/100 WBC (Bld) 83.2 % High 40 - 80 % [facility] Hematocrit (Bld) [Volume fraction] 30.9 % Low 35 - 47 % [facility] Hemoglobin (Bld) [Mass/Vol] 10.7 g/dL Low 11.7 - 16 g/dL [facility] Interpretation and review of laboratory results Abnormal [facility] Lymphocytes (Bld) [#/Vol] 0.7 10*3/uL Low 1 - 4.3 10*3/uL [facility] Lymphocytes/100 WBC (Bld) 6.5 % Low 20 - 40 % [facility] MCH (RBC) [Entitic mass] 36.5 pg High 26 - 34 pg [facility] MCHC (RBC) [Mass/Vol] 34.6 % 32 - 36 % [facility] MCV (RBC) [Entitic vol] 105.6 fL High 79 - 98 fL [facility] Monocytes (Bld) [#/Vol] 0.8 10*3/uL 0 - 0.8 10*3/uL [facility] Monocytes/100 WBC (Bld) 7.7 % 2 - 10 % [facility] Platelet distribution width (Bld) [Ratio] 17.2 % High 11.5 - 14.5 % [facility] Platelet mean volume (Bld) [Entitic vol] 7.5 fL 7.4 - 12.4 fL [facility] Platelets (Bld) [#/Vol] 451 10*3/uL High 140 - 440 10*3/uL [facility] RBC (Bld) [#/Vol] 2.93 10*6/uL Low 3.8 - 5.2 10*6/uL [facility] WBC (Bld) [#/Vol] 10.0 10*3/uL 3.6 - 10.7 10*3/uL [facility] Chest Portableon 01-05-20 CR Chest Portable Patient Name: JAIMIE MCGOVERN Diagnostic Radiology ACCESSION EXAM DATE/TIME PROCEDURE ORDERING PROVIDER [id number] 01/04/2022 06:30 EDT CR Chest Portable [id number] -NATHALIE, ANEIL CPT code 72133 Reason For Exam (CR Chest Portable) patient with desaturation and tacypnea Report CLINICAL INFORMATION: Respiratory distress. Hypoxia. Portable view of the chest at 0625 hours is provided and compared to a previous study dated January 03, 2022. FINDINGS: The cardiac silhouette and mediastinum are within normal limits. Interstitial infiltrates are noted bilaterally. There is a pleural effusion on the right. There is evidence of loculation. A pigtail chest tube is in place. However, the catheter appears to have been withdrawn several cm. IMPRESSION: 1. Progression of interstitial infiltrates. 2. Right-sided pleural effusion. This appears to have increased in size despite pigtail catheter in place. The catheter appears to have been withdrawn several cm. Report Dictated on Final Dictated: 01/04/2022 6:36 am Dictating Physician: MD LOYOLA JEFFREY Signed Date and Time: 01/04/2022 6:38 am Signed by: MD LOYOLA JEFFREY Transcribed Date and Time: 01/04/2022 6:36 Normal [facility] Glucose,Bedsideon 01-04-2022 Glucose [Mass/Vol] 157 mg/dL High 70-100 [facility] Work Phone: Comment on above: Result Comment: Test performed by glucose meter. Results may be 10%-15% lower than serum/plasma values. (CLIA ID [id number]) Performed By: #### B GLU #### [address] [place] [address] Glucose [Mass/Vol] 104 mg/dL High 70-100 [facility] Comment on above: Result Comment: Test performed by glucose meter. Results may be 10%-15% lower than serum/plasma values. (CLIA ID [id number]) Performed By: #### H EMDF, BMP3M #### [facility] [address] [place] [address] Glucose [Mass/Vol] 91 mg/dL Normal 70-100 [facility] Comment on above: Result Comment: Test performed by glucose meter. Results may be 10%-15% lower than serum/plasma values. (CLIA ID [id number]) Performed By: #### B GLU ####[id number] [place], [place] Hemogram w/ Autodiffon 01-04 Abs Baso Cnt 0.0 10*3/uL Normal 0.0-0.2 [facility] Comment on above: Performed By: #### B MP3M, HEMDF, MG3, PHOS3, PCAL #### [facility] [address] [place], [place] Abs Neutrophile Cnt 8.3 10*3/uL High 1.8-7.0 [facility] Comment on above: Performed By: #### B MP3M, HEMDF, MG3, PHOS3, PCAL #### [address] [place] Basophils/100 WBC (Bld) 0.4 % Normal 0.0-2.0 [facility] Comment on above: Performed By: #### B MP3M, HEMDF, MG3, PHOS3, PCAL #### [address] [place] Eosinophils (Bld) [#/Vol] 0.2 10*3/uL Normal 0.0-0.5 [facility] Comment on above: Performed By: #### B MP3M, HEMDF, MG3, PHOS3, PCAL #### [address] [place] Eosinophils/100 WBC (Bld) 2.2 % Normal 1.0-6.0 [facility] Comment on above: Performed By: #### B MP3M, HEMDF, MG3, PHOS3, PCAL #### [address] [place] Erythrocyte distribution width (RBC) [Ratio] 17.2 % High 11.5-14.5 [facility] Comment on above: Performed By: #### B MP3M, HEMDF, MG3, PHOS3, PCAL #### [address] [place] Granulocytes/100 WBC (Bld) 83.2 % High 40.0-80.0 [facility] Comment on above: Performed By: #### B MP3M, HEMDF, MG3, PHOS3, PCAL #### [address] [place] Hematocrit (Bld) [Volume fraction] 30.9 % Low 35.0-47.0 [facility] Comment on above: Performed By: #### B MP3M, HEMDF, MG3, PHOS3, PCAL #### [address] [place], [place] Hemoglobin (Bld) [Mass/Vol] 10.7 g/dL Low 11.7-16.0 [facility] Comment on above: Performed By: #### B MP3M, HEMDF, MG3, PHOS3, PCAL #### [address] [place] Lymphocytes (Bld) [#/Vol] 0.7 10*3/uL Low 1.0-4.3 [facility] Comment on above: Performed By: #### B MP3M, HEMDF, MG3, PHOS3, PCAL #### [address] [place] Lymphocytes/100 WBC (Bld) 6.5 % Low 20.0-40.0 [facility] Comment on above: Performed By: #### B MP3M, HEMDF, MG3, PHOS3, PCAL #### [address] [address] [place] MCH (RBC) [Entitic mass] 36.5 pg High 26.0-34.0 [facility] Comment on above: Performed By: #### B MP3M, HEMDF, MG3, PHOS3, PCAL #### [address] [place] MCHC 34.6 % Normal 32.0-36.0 [facility] Comment on above: Performed By: #### B MP3M, HEMDF, MG3, PHOS3, PCAL #### [address] MCV (RBC) [Entitic vol] 105.6 fL High 79.0-98.0 [facility] Comment on above: Performed By: #### B MP3M, HEMDF, MG3, PHOS3, PCAL #### [address] [place] Monocytes (Bld) [#/Vol] 0.8 10*3/uL Normal 0.0-0.8 [facility] Comment on above: Performed By: #### B MP3M, HEMDF, MG3, PHOS3, PCAL #### [address] [address] [place], [place] Monocytes/100 WBC (Bld) 7.7 % Normal 2.0-10.0 [facility] Comment on above: Performed By: #### B MP3M, HEMDF, MG3, PHOS3, PCAL #### [address] Platelet mean volume (Bld) [Entitic vol] 7.5 fL Normal 7.4-12.4 [facility] Comment on above: Result Comment: MPV is a calculated measurement using platelet volume ratio. Performed By: #### B MP3M, HEMDF, MG3, PHOS3, PCAL #### [address] [address] [place], [place] Platelets (Bld) [#/Vol] 451 10*3/uL High 140-440 [facility] Comment on above: Performed By: #### B MP3M, HEMDF, MG3, PHOS3, PCAL #### [address] [place], [place] RBC (Bld) [#/Vol] 2.93 10*6/uL Low 3.80-5.20 [facility] Comment on above: Performed By: #### B MP3M, HEMDF, MG3, PHOS3, PCAL #### [address] WBC (Bld) [#/Vol] 10.0 10*3/uL Normal 3.6-10.7 [facility] Comment on above: Performed By: #### B MP3M, HEMDF, MG3, PHOS3, PCAL #### [facility] [address] [place] [address] Magnesiumon 01-04-2022 Magnesium [Mass/Vol] 2.1 mg/dL Normal 1.6-2.3 [facility] Comment on above: Performed By: #### B MP3M, HEMDF, MG3, PHOS3, PCAL #### [facility] [address] [place] [address] Magnesium [Mass/Vol] 2.1 mg/dL 1.6 - 2 .3 mg/dL [facility] No Panel InformationOrdered By: Johnny Salas on 01-04-2022 Interpretation and review of laboratory results Abnormal [facility] Work Phone: [phone] [facility] Work Phone: [phone] Panel Informationon 01-04 [facility] Radiology Study observation (narrative) [facility] Work Phone: POCT Glucoseon 01-04-2022 Interpretation and review of laboratory results Abnormal [facility] Work Phone: [facility] Work Phone: [facility] Glucose [Mass/Vol] 91 mg/dL 70 - 100 mg/dL [facility] Work Phone: [facility] Work Phone: POCT GlucoseOrdered By: Isra Salas on 01-04-2022 Glucose [Mass/Vol] 104 mg/dL High 70 - 100 mg/dL [facility] Work Phone: Phosphoruson 01-04-2022 Phosphate [Mass/Vol] 4.6 mg/dL High 2.5-4.5 [facility] Comment on above: Performed By: #### B MP3M, HEMDF, MG3, PHOS3, PCAL #### [facility] [address] [place] [address] Interpretation and review of laboratory results Abnormal [facility] Phosphate [Mass/Vol] 4.6 mg/dL High 2.5 - 4 .5 mg/dL [facility] Procalcitoninon 01-04-2022 Procalcitonin 15.03 ng/mL High 0.00-0.09 [facility] Comment on above: Performed By: #### B MP3M, HEMDF, MG3, PHOS3, PCAL #### [facility] [address] [place] [address] Interpretation See Below Normal [facility] Comment on above: Result Comment: PCT <0.50 = Low risk of severe sepsis and/or septic shock. PCT >2.00 = High risk of severe sepsis and/or septic shock. Performed By: #### B MP3M, HEMDF, MG3, PHOS3, PCAL #### [address] [address] US ABDOMEN LIMITEDon 022 [facility] Work Phone: US ABDOMEN LIMITEDOrdered By : Froilan Elam on 01-04-2022 [facility] Work Phone: US Abdomen Limitedon 022 US Abdomen Limited Patient Name: JAIMIE MCGOVERN Ultrasound ACCESSION EXAM DATE/TIME PROCEDURE ORDERING PROVIDER [id number] 01/04/2022 16:53 EDT US Abdomen Limited [id number] -PATRICK MELY CPT code 67741 Reason For Exam (US Abdomen Limited) ascites Report ULTRASOUND ABDOMEN LIMITED CLINICAL INDICATION: Suspected ascites with pleural effusion TECHNIQUE: Ultrasound of the four quadrants of the abdomen and pelvis COMPARISON: CT from four days ago FINDINGS: No free intraperitoneal fluid is identified. Left pleural fluid is noted. Report Dictated on Final Dictated: 01/04/2022 11:46 pm Dictating Physician: MD ELAM JEFFREY Signed Date and Time: 01/04/2022 11:47 pm Signed by: MD ELAM JEFFREY Transcribed Date and Time: 01/04/2022 11:46 Normal [facility] VL DUP LOWER EXTREMITY VENOU S BILATERALon 01-04-2022 [facility] Work Phone: [facility] Work Phone: XR CHEST PORTABLEon 01-05-20 22 [facility] Work Phone: [phone] [facility] Work Phone: Basic Metabolic Panelon 12-24 Calcium [Mass/Vol] 7.8 mg/dL Low 8.4-10.4 [facility] Comment on above: Performed By: #### B MP3M, LFT3, HEMDF ####[facility] [place] [address] Anion gap [Moles/Vol] 5 mmol/L Normal 3-13 [facility] Comment on above: Performed By: #### B MP3M, LFT3, HEMDF ####[facility] [place] [address] CO2 [Moles/Vol] 26 mmol/L Normal 22-30 [facility] Comment on above: Performed By: #### B MP3M, LFT3, HEMDF ####[facility] [place] [address] Glucose [Mass/Vol] 99 mg/dL Normal 70-100 [facility] Comment on above: Performed By: #### B MP3M, LFT3, HEMDF ####[facility] [address] [place] [address] Urea nitrogen [Mass/Vol] 10 mg/dL Normal 9-20 [facility] Comment on above: Performed By: #### B MP3M, LFT3, HEMDF ####[facility] [address] [place] [address] Creatinine [Mass/Vol] 0.61 mg/dL Normal 0.52-1.25 [facility] Comment on above: Performed By: #### B MP3M, LFT3, HEMDF ####[address] [place] [address] GFR/1.73 sq M.predicted among blacks MDRD (S/P/Bld) [Vol rate/Area] mL/min/{1.73_m2} Normal >60 [facility] Comment on above: Performed By: #### B MP3M, LFT3, HEMDF ####[facility] [employer] [id number] [place], [place] GFR/1.73 sq M.predicted among non-blacks MDRD (S/P/Bld) [Vol rate/Area] 89.0 mL/min/{1.73_m2} Normal >60 [facility] Comment on above: Result Comment: KDIG O guidelines provide the following GFR categories: Stage GFR(ml/min/1.73 m2) Terms G1 >=90 Normal or high G2 60-89 Mildly decreased* G3a 45-59 Mildly to moderately decreased G3b 30-44 Moderately to severely decreased G4 15-29 Severely decreased G5 <15 Kidney failure *Relative to young adult level. In the absence of evidence of kidney damage, neither GFR category G1 nor G2 fulfill the criteria for CKD. The CKD-EPI equation is validated in individuals 18 years of age and older. Currently the best equation for estimating glomerular filtration rate (GFR) from serum creatinine in children is the Bedside Velez equation. It is less accurate in patients with extremes of muscle mass, restriction of dietary protein, ingestion of creatine, extra-renal metabolism of creatinine, or treatment with medications that affect renal tubular creatinine secretion. Performed By: #### B MP3M, LFT3, HEMDF ####[facility] [employer]. [id number] [place], [place] Chloride [Moles/Vol] 107 mmol/L Normal 98-107 [facility] Comment on above: Performed By: #### B MP3M, LFT3, HEMDF ####[address] [place], [place] Potassium [Moles/Vol] 3.6 mmol/L Normal 3.5-5.1 [facility] Comment on above: Performed By: #### B MP3M, LFT3, HEMDF ####[address] [place], [place] Sodium [Moles/Vol] 138 mmol/L Normal 135-145 [facility] Comment on above: Performed By: #### B MP3M, LFT3, HEMDF ####[facility] [employer] [id number] [place] [address] Basic Metabolic Panel w/ Ref emmanuel to MGon 01-03-2022 Anion gap [Moles/Vol] 5 mmol/L 3 - 13 mmol/L [facility] Calcium [Mass/Vol] 7.8 mg/dL Low 8.4 - 10. 4 mg/dL [facility] Chloride [Moles/Vol] 107 mmol/L 98 - 10 7 mmol/L [facility] CO2 [Moles/Vol] 26 mmol/L 22 - 30 mmol/L [facility] Creatinine [Mass/Vol] 0.61 mg/dL 0.52 - 1.25 mg/dL [facility] eGFR mL/min 60 - P INF mL/min [facility] EGFR IF NonAfrican Trinidadian 89.0 mL/min 60 - PINF mL/min [facility] Glucose [Mass/Vol] 99 mg/dL 70 - 100 mg/dL [facility] Potassium [Moles/Vol] 3.6 mmol/L 3.5 - 5.1 mmol/L [facility] Sodium [Moles/Vol] 138 mmol/L 135 - 145 mmol/L [facility] Urea nitrogen (BldV) [Mass/Vol] 10 mg/dL 9 - 20 mg/dL [facility] CBC with Auto Differentialon 01-03-2022 Absolute Baso # 0.1 10*3/uL 0 - 0.2 10*3/uL [facility] Absolute Neut # 6.1 10*3/uL 1.8 - 7 10*3/uL [facility] Basophils/100 WBC (Bld) 0.8 % 0 - 2 % [facility] Eosinophils (Bld) [#/Vol] 0.2 10*3/uL 0 - 0.5 10*3/uL [facility] Eosinophils/100 WBC (Bld) 2.4 % 1 - 6 % [facility] Granulocytes/100 WBC (Bld) 80.5 % High 40 - 80 % [facility] Hematocrit (Bld) [Volume fraction] 32.7 % Low 35 - 47 % [facility] Hemoglobin (Bld) [Mass/Vol] 10.8 g/dL Low 11.7 - 16 g/dL [facility] Interpretation and review of laboratory results Abnormal [facility] Lymphocytes (Bld) [#/Vol] 0.7 10*3/uL Low 1 - 4.3 10*3/uL [facility] Lymphocytes/100 WBC (Bld) 8.6 % Low 20 - 40 % [facility] MCH (RBC) [Entitic mass] 35.2 pg High 26 - 34 pg [facility] MCHC (RBC) [Mass/Vol] 33.0 % 32 - 36 % [facility] MCV (RBC) [Entitic vol] 106.8 fL High 79 - 98 fL [facility] Monocytes (Bld) [#/Vol] 0.6 10*3/uL 0 - 0.8 10*3/uL [facility] Monocytes/100 WBC (Bld) 7.7 % 2 - 10 % [facility] Platelet distribution width (Bld) [Ratio] 17.5 % High 11.5 - 14.5 % [facility] Platelet mean volume (Bld) [Entitic vol] 7.6 fL 7.4 - 12.4 fL [facility] Platelets (Bld) [#/Vol] 365 10*3/uL 140 - 440 10*3/uL [facility] RBC (Bld) [#/Vol] 3.06 10*6/uL Low 3.8 - 5.2 10*6/uL [facility] WBC (Bld) [#/Vol] 7.6 10*3/uL 3.6 - 10.7 10*3/uL [facility] CR Chest Portableon 01-04-20 CR Chest Portable Patient Name: JAIMIE MCGOVERN Diagnostic Radiology ACCESSION EXAM DATE/TIME PROCEDURE ORDERING PROVIDER [id number] 01/03/2022 08:23 EDT CR Chest Portable MD MACIEL ANDREW CPT code 75975 Reason For Exam (CR Chest Portable) patient with desaturation and tacypnea Report Clinical History: patient with desaturation and tacypnea Comparison: 01/02/2022 Technique: Single AP radiograph of the chest. Findings: Right sided chest tube appears retracted a few centimeters from prior examination, now positioned peripherally over the right lung base. Cardiomediastinal silhouette is within normal limits. Diffuse interstitial coarsening is similar to prior study with predominance in the right upper and mid lung. More dense right basilar opacity obscures the diaphragm with meniscus sign in lateral right-sided pleural straight thickening. Partial obscuration of the left hemidiaphragm by smaller hazy opacity. No pneumothorax. Impression: 1. Interval partial retraction of right basilar chest tube by a few centimeters. 2. Otherwise unchanged examination of the chest with bibasilar pulmonary infiltrates and right greater than left pleural effusions. Report Dictated on Final Dictated: 01/03/2022 8:20 am Dictating Physician: MD PANTOJA JAMES Signed Date and Time: 01/03/2022 8:23 am Signed by: MD PANTOJA JAMES Transcribed Date and Time: 01/03/2022 8:20 Normal [facility] Culture, Body Fluidon 2021 Body Fluid Cult/Smear, Aerobic No growth at 5 days. [facility] Gram Stain Result [facility] Glucose,Bedsideon 01-03-2022 Glucose [Mass/Vol] 115 mg/dL High 70-100 [facility] Comment on above: Result Comment: Test performed by glucose meter. Results may be 10%-15% lower than serum/plasma values. (CLIA ID [id number]) Performed By: #### B GLU #### [facility] [address] [place], [place] Hemogram w/ Autodiffon 01-03 Abs Baso Cnt 0.1 10*3/uL Normal 0.0-0.2 [facility] Comment on above: Performed By: #### B MP3M, LFT3, HEMDF ####[address] [place] [address] Abs Neutrophile Cnt 6.1 10*3/uL Normal 1.8-7.0 [facility] Comment on above: Performed By: #### B MP3M, LFT3, HEMDF ####[facility] [place] [address] Basophils/100 WBC (Bld) 0.8 % Normal 0.0-2.0 [facility] Comment on above: Performed By: #### B MP3M, LFT3, HEMDF ####[address] [place] [address] Eosinophils (Bld) [#/Vol] 0.2 10*3/uL Normal 0.0-0.5 [facility] Comment on above: Performed By: #### B MP3M, LFT3, HEMDF ####[address] Eosinophils/100 WBC (Bld) 2.4 % Normal 1.0-6.0 [facility] Comment on above: Performed By: #### B MP3M, LFT3, HEMDF ####[address] Erythrocyte distribution width (RBC) [Ratio] 17.5 % High 11.5-14.5 [facility] Comment on above: Performed By: #### B MP3M, LFT3, HEMDF ####[address] Granulocytes/100 WBC (Bld) 80.5 % High 40.0-80.0 [facility] Comment on above: Performed By: #### B MP3M, LFT3, HEMDF ####[address] Hematocrit (Bld) [Volume fraction] 32.7 % Low 35.0-47.0 [facility] Comment on above: Performed By: #### B MP3M, LFT3, HEMDF ####[address] Hemoglobin (Bld) [Mass/Vol] 10.8 g/dL Low 11.7-16.0 [facility] Comment on above: Performed By: #### B MP3M, LFT3, HEMDF ####[address] Lymphocytes (Bld) [#/Vol] 0.7 10*3/uL Low 1.0-4.3 [facility] Comment on above: Performed By: #### B MP3M, LFT3, HEMDF ####[address] Lymphocytes/100 WBC (Bld) 8.6 % Low 20.0-40.0 [facility] Comment on above: Performed By: #### B MP3M, LFT3, HEMDF ####[address] MCH (RBC) [Entitic mass] 35.2 pg High 26.0-34.0 [facility] Comment on above: Performed By: #### B MP3M, LFT3, HEMDF ####[address] [place], [place] MCHC 33.0 % Normal 32.0-36.0 [facility] Comment on above: Performed By: #### B MP3M, LFT3, HEMDF ####[address] [place], [place] MCV (RBC) [Entitic vol] 106.8 fL High 79.0-98.0 [facility] Comment on above: Performed By: #### B MP3M, LFT3, HEMDF ####[address] Monocytes (Bld) [#/Vol] 0.6 10*3/uL Normal 0.0-0.8 [facility] Comment on above: Performed By: #### B MP3M, LFT3, HEMDF ####[address] [place], [place] Monocytes/100 WBC (Bld) 7.7 % Normal 2.0-10.0 [facility] Comment on above: Performed By: #### B MP3M, LFT3, HEMDF ####[address] Platelet mean volume (Bld) [Entitic vol] 7.6 fL Normal 7.4-12.4 [facility] Comment on above: Result Comment: MPV is a calculated measurement using platelet volume ratio. Performed By: #### B MP3M, LFT3, HEMDF ####[address] [place], [place] Platelets (Bld) [#/Vol] 365 10*3/uL Normal 140-440 [facility] Comment on above: Performed By: #### B MP3M, LFT3, HEMDF ####[address] [place], [place] RBC (Bld) [#/Vol] 3.06 10*6/uL Low 3.80-5.20 [facility] Comment on above: Performed By: #### B MP3M, LFT3, HEMDF ####[address] [place], [place] WBC (Bld) [#/Vol] 7.6 10*3/uL Normal 3.6-10.7 [facility] Comment on above: Performed By: #### B MP3M, LFT3, HEMDF ####[address] [place], [place] Hepatic Functionon 2 ALP [Catalytic activity/Vol] 91 U/L Normal 38-126 [facility] Comment on above: Performed By: #### B MP3M, LFT3, HEMDF ####[address] [place], [place] ALT [Catalytic activity/Vol] 14 U/L Normal 0-34 [facility] Comment on above: Result Comment: The ALT test is performed by an updated assay method. Please note that the reference intervals have been changed and are now sex specific. Performed By: #### B MP3M, LFT3, HEMDF ####[id number] [place], [place] AST [Catalytic activity/Vol] 29 U/L Normal 15-46 [facility] Comment on above: Performed By: #### B MP3M, LFT3, HEMDF ####[id number] [place], [place] Bilirubin [Mass/Vol] 0.4 mg/dL Normal 0.2-1.3 [facility] Comment on above: Performed By: #### B MP3M, LFT3, HEMDF ####[id number] [place], [place] Protein [Mass/Vol] 5.9 g/dL Low 6.3-8.2 [facility] Comment on above: Performed By: #### B MP3M, LFT3, HEMDF ####[facility] [employer] [id number] [place], [place] Bilirubin.indirect [Mass/Vol] 0.0 mg/dL Normal 0.0-0.3 [facility] Comment on above: Performed By: #### B MP3M, LFT3, HEMDF ####[facility] [employer]. [id number] [place], [place] Albumin [Mass/Vol] 2.8 g/dL Low 3.5-5.0 [facility] Comment on above: Performed By: #### B MP3M, LFT3, HEMDF ####[id number] [place], [place] Hepatic Function Panelon Albumin [Mass/Vol] 2.8 g/dL Low 3.5 - 5 g/dL [facility] ALP (Bld) [Catalytic activity/Vol] 91 U/L 38 - 126 U/L [facility] ALT [Catalytic activity/Vol] 14 U/L 0 - 34 U/L [facility] AST [Catalytic activity/Vol] 29 U/L 15 - 46 U/L [facility] Bilirubin [Mass/Vol] 0.4 mg/dL 0.2 - 1 .3 mg/dL [facility] Bilirubin.indirect [Mass/Vol] 0.0 mg/dL 0 - 0.3 mg/dL [facility] Free PSA/Total PSA [Mass fraction] 5.9 g/dL Low 6.3 - 8.2 g/dL [facility] Lactic Acidon 01-03-2022 Lactate [Moles/Vol] 1.6 mmol/L Normal 0.7-2.0 [facility] Comment on above: Performed By: #### L ACT3 ####[id number] [place], [place] Lactate [Moles/Vol] 1.6 mmol/L 0.7 - 2 mmol/L [facility] No Panel Informationon 01-03 Radiology Study observation (narrative) [facility] Work Phone: Interpretation and review of laboratory results Abnormal [facility] POCT GlucoseOrdered By: Corbin Carpio on 01-03-2022 Glucose [Mass/Vol] 115 mg/dL High 70 - 100 mg/dL [facility] Work Phone: Interpretation and review of laboratory results Abnormal [facility] Work Phone: [facility] Work Phone: POCT Glucoseon 01-03-2022 [facility] Procalcitoninon 01-03-2022 Interpretation See Below Normal [facility] Comment on above: Result Comment: PCT <0.50 = Low risk of severe sepsis and/or septic shock. PCT >2.00 = High risk of severe sepsis and/or septic shock. Performed By: #### H EMD, BMP3M #### [address] [address] VL Venous Duplex US Lower Ex t Bilateralon 01-03-2022 VL Venous Duplex US Lower Ext Bilateral Patient Name: JAIMIE MCGOVERN Ultrasound ACCESSION EXAM DATE/TIME PROCEDURE ORDERING PROVIDER [id number] 01/03/2022 12:07 EDT VL Venous Duplex [place] [id number] -YARIEL BEASLEY Lower Ext Bilateral CPT code 79742 Reason For Exam (VL Venous Duplex US Lower Ext Bilateral) elevated procalcitonin and edema Report [facility] -------- Lower Extremity Venous Duplex Report Patient Olimpia, : 1945 Study 01/03/2022 Name: Jaimie (76yrs) Date: Patient [id number] Age: 76 Account: [id number] ID: Gender: F Loc: 6104 BP: Ordering Physician: [employer] Secretary: Aleja Case, RDMS, RVT Interpreting Physician: Alex Diop MD -------- Location: [facility] -------- Indications: Elevated procalcitionin and edema. -------- Conclusions 1. There is no evidence of acute deep or superficial venous thrombosis noted in the right lower extremity. 2. There is no evidence of acute deep or superficial venous thrombosis noted in the left lower extremity. -------- History: Risk factors: Immobility. Age over 65 years. Recent trauma. -------- Study data: Complete lower extremity venous duplex evaluation. Grayscale 2D imaging, color Doppler imaging, and spectral Doppler analysis. Location: Vascular laboratory. Procedure: A vascular evaluation was performed with the patient in the supine position. Images were obtained using a Fullscreens vascular ultrasound machine. -------- Ultrasound Report Venous flow and imaging: + -----+-------+------- -------+ +Location +Overall+Properties + + -----+-------+------- -------+ +R CFV +Patent +Normal phasicity; spontaneous; + + + +normal augmentation; compressible + + -----+-------+------- -------+ +R saphenofemoral junction+Patent +Compressible + + -----+-------+------- -------+ +R profunda femoral +Patent + + + -----+-------+------- -------+ +R FV - prox. +Patent +Compressible + + -----+-------+------- -------+ +R FV - mid +Patent +Normal phasicity; spontaneous; + + + +normal augmentation; compressible + + -----+-------+------- -------+ +R FV - distal +Patent +Compressible + + -----+-------+------- -------+ +R popliteal +Patent +Normal phasicity; spontaneous; + + + +normal augmentation; compressible + + -----+-------+------- -------+ +R gastrocnemius +Patent +Compressible + + -----+-------+------- -------+ +R PTV +Patent +Compressible + + -----+-------+------- -------+ +R peroneal +Patent +Compressible + + -----+-------+------- -------+ +R soleal +Patent +Compressible + + -----+-------+------- -------+ +R GSV +Patent +Compressible + + -----+-------+------- -------+ +L CFV +Patent +Normal phasicity; spontaneous; + + + +normal augmentation; compressible + + -----+-------+------- -------+ +L saphenofemoral junction+Patent +Compressible + + -----+-------+------- -------+ +L profunda femoral +Patent + + + -----+-------+------- -------+ +L FV - prox. +Patent +Compressible + + -----+-------+------- -------+ +L FV - mid +Patent +Normal phasicity; spontaneous; + + + +normal augmentation; compressible + + -----+-------+------- -------+ +L FV - distal +Patent +Compressible + + -----+-------+------- -------+ +L popliteal +Patent +Normal phasicity; spontaneous; + + + +normal augmentation; compressible + + -----+-------+------- -------+ +L gastrocnemius +Patent +Compressible + + -----+-------+------- -------+ +L PTV +Patent +Compressible + + -- (more content not included)... Normal [facility] [employer]. System XR CHEST PORTABLEon 01-04-20 22 [facility] Work Phone: XR CHEST PORTABLEOrdered By: Isaiah Pantoja on 01-03-2022 [facility] Work Phone: Basic Metabolic Panelon 12-24 Anion gap [Moles/Vol] 1 mmol/L Low 3-13 [facility] Comment on above: Performed By: #### B GLU #### [facility] [address], [place] Calcium [Mass/Vol] 7.9 mg/dL Low 8.4-10.4 [facility] Comment on above: Performed By: #### B GLU #### [facility] [address], [place] CO2 [Moles/Vol] 26 mmol/L Normal 22-30 [facility] Comment on above: Performed By: #### B GLU #### [facility] [address], [place] Creatinine [Mass/Vol] 0.54 mg/dL Normal 0.52-1.25 [facility] Comment on above: Performed By: #### B GLU #### [facility] [address] [place], [place] eGFR OTHER > 90.0 Normal >60 [facility] Comment on above: Result Comment: KDIG O guidelines provide the following GFR categories: Stage GFR(ml/min/1.73 m2) Terms G1 >=90 Normal or high G2 60-89 Mildly decreased* G3a 45-59 Mildly to moderately decreased G3b 30-44 Moderately to severely decreased G4 15-29 Severely decreased G5 <15 Kidney failure *Relative to young adult level. In the absence of evidence of kidney damage, neither GFR category G1 nor G2 fulfill the criteria for CKD. The CKD-EPI equation is validated in individuals 18 years of age and older. Currently the best equation for estimating glomerular filtration rate (GFR) from serum creatinine in children is the Bedside Velez equation. It is less accurate in patients with extremes of muscle mass, restriction of dietary protein, ingestion of creatine, extra-renal metabolism of creatinine, or treatment with medications that affect renal tubular creatinine secretion. Performed By: #### B GLU #### [facility] [address] [place], [place] GFR/1.73 sq M.predicted among blacks MDRD (S/P/Bld) [Vol rate/Area] mL/min/{1.73_m2} Normal >60 [facility] Comment on above: Performed By: #### B GLU #### [address] [place], [place] Glucose [Mass/Vol] 80 mg/dL Normal 70-100 [facility] Comment on above: Performed By: #### B GLU #### [address] [place] Urea nitrogen [Mass/Vol] 5 mg/dL Low 9-20 [facility] Comment on above: Performed By: #### B GLU #### [address] [place] Chloride [Moles/Vol] 110 mmol/L High 98-107 [facility] Comment on above: Performed By: #### B GLU #### [address] [place] Potassium [Moles/Vol] 3.6 mmol/L Normal 3.5-5.1 [facility] Comment on above: Performed By: #### B GLU #### [address] [place] Sodium [Moles/Vol] 138 mmol/L Normal 135-145 [facility] Comment on above: Performed By: #### B GLU #### [address] [place] [facility] Basic Metabolic PanelOrdered By: Ledy Penn on 01-02-2022 Anion gap [Moles/Vol] 1 mmol/L Low 3 - 13 mmol/L [facility] Calcium [Mass/Vol] 7.9 mg/dL Low 8.4 - 10. 4 mg/dL [facility] Chloride [Moles/Vol] 110 mmol/L High 98 - 10 7 mmol/L [facility] CO2 [Moles/Vol] 26 mmol/L 22 - 30 mmol/L [facility] Creatinine [Mass/Vol] 0.54 mg/dL 0.52 - 1.25 mg/dL [facility] eGFR mL/min 60 - P INF mL/min [facility] EGFR IF NonAfrican Trinidadian mL/min 60 - PINF mL/min [facility] Glucose [Mass/Vol] 80 mg/dL 70 - 100 mg/dL [facility] Interpretation and review of laboratory results Abnormal [facility] Potassium [Moles/Vol] 3.6 mmol/L 3.5 - 5.1 mmol/L [facility] Sodium [Moles/Vol] 138 mmol/L 135 - 145 mmol/L [facility] Urea nitrogen (BldV) [Mass/Vol] 5 mg/dL Low 9 - 20 mg/dL [facility] CBC with Auto Differentialon 01-02-2022 Hematocrit (Bld) [Volume fraction] 31.4 % Low 35 - 47 % [facility] Hemoglobin (Bld) [Mass/Vol] 10.4 g/dL Low 11.7 - 16 g/dL [facility] Interpretation and review of laboratory results Abnormal [facility] MCH (RBC) [Entitic mass] 35.0 pg High 26 - 34 pg [facility] MCHC (RBC) [Mass/Vol] 33.0 % 32 - 36 % [facility] MCV (RBC) [Entitic vol] 106.1 fL High 79 - 98 fL [facility] Platelet distribution width (Bld) [Ratio] 17.0 % High 11.5 - 14.5 % [facility] Platelet mean volume (Bld) [Entitic vol] 7.8 fL 7.4 - 12.4 fL [facility] Platelets (Bld) [#/Vol] 268 10*3/uL 140 - 440 10*3/uL [facility] RBC (Bld) [#/Vol] 2.96 10*6/uL Low 3.8 - 5.2 10*6/uL [facility] WBC (Bld) [#/Vol] 7.7 10*3/uL 3.6 - 10.7 10*3/uL [facility] CR Chest Portableon 01-03-20 CR Chest Portable Patient Name: JAIMIE MCGOVERN [facility]#: [id number] Diagnostic Radiology ACCESSION EXAM DATE/TIME PROCEDURE ORDERING PROVIDER [id number] 01/02/2022 06:01 EDT CR Chest Portable MD MACIEL ANDREW CPT code 11512 Reason For Exam (CR Chest Portable) patient with desaturation and tacypnea Report CHEST: CLINICAL INDICATION: Desaturations, tachypnea TECHNIQUE: AP portable chest COMPARISON: Radiograph from yesterday FINDINGS: Support devices: Right basilar chest tube The cardiomediastinal silhouette appears unchanged from the prior exam. No pneumothorax. Infiltrates in both lungs, unchanged. Stable or slightly smaller right pleural effusion and small left pleural effusion. Degenerative change of the thoracic spine is noted. IMPRESSION: No pneumothorax. Infiltrates in both lungs, unchanged. Right chest tube with a stable or slightly smaller right pleural effusion and small left pleural effusion. Report Dictated on Final Dictated: 01/02/2022 7:16 am Dictating Physician: MD SUNSHINE NICHOLAS Signed Date and Time: 01/02/2022 7:17 am Signed by: MD SUNSHINE NICHOLAS Transcribed Date and Time: 01/02/2022 7:16 Normal [facility] CULTURE BLOODon 01-02-2022 Microscopic examination of blood, culture CULTURE BLOOD --> Status: F No growth at 5 days. Normal [facility] Comment on above: Performed By: #### B MP3M, HEMDF, MG3, PHOS3, PCAL #### [facility] [address] [place] [address] Culture, Bloodon 01-02-2022 Blood Culture, Routine No growth at 5 days. [facility] Work Phone: [facility] Work Phone: Glucose,Bedsideon 01-02-2022 Glucose [Mass/Vol] 100 mg/dL Normal 70-100 [facility] Comment on above: Result Comment: Test performed by glucose meter. Results may be 10%-15% lower than serum/plasma values. (CLIA ID [id number]) Performed By: #### B GLU ####[facility] [address] Hemogram w/ Autodiffon 01-02 Erythrocyte distribution width (RBC) [Ratio] 17.0 % High 11.5-14.5 [facility] Comment on above: Performed By: #### DAVID BOBO ####[address] Hematocrit (Bld) [Volume fraction] 31.4 % Low 35.0-47.0 [facility] Comment on above: Performed By: #### DAVID BOBO ####[address] Hemoglobin (Bld) [Mass/Vol] 10.4 g/dL Low 11.7-16.0 [facility] Comment on above: Performed By: #### DAVID BOBO ####[address] MCH (RBC) [Entitic mass] 35.0 pg High 26.0-34.0 [facility] Comment on above: Performed By: #### DAVID BOBO ####[address] MCHC 33.0 % Normal 32.0-36.0 [facility] Comment on above: Performed By: #### DAVID BOBO ####[address] MCV (RBC) [Entitic vol] 106.1 fL High 79.0-98.0 S [facility] Comment on above: Performed By: #### DAVID BOBO ####[address] Platelet mean volume (Bld) [Entitic vol] 7.8 fL Normal 7.4-12.4 [facility] Comment on above: Result Comment: MPV is a calculated measurement using platelet volume ratio. Performed By: #### DAVID BOBO ####[address] Platelets (Bld) [#/Vol] 268 10*3/uL Normal 140-440 [facility] Comment on above: Performed By: ###DAVID SHERMAN ####[address] RBC (Bld) [#/Vol] 2.96 10*6/uL Low 3.80-5.20 [facility] Comment on above: Performed By: ###DAVID SHERMAN ####[address] WBC (Bld) [#/Vol] 7.7 10*3/uL Normal 3.6-10.7 [facility] Comment on above: Performed By: #### DAVID BOBO ####[id number] [place], [place] Manual Diffon 01-02-2022 Abs Lymph Cnt 0.5 10*3/uL Low 1.1-4.5 [facility] Comment on above: Performed By: ###ADVID SHERMAN ####[id number] [place], [place] Abs Monocyte Cnt 0.5 10*3/uL Normal 0.2-1.1 [facility] Comment on above: Performed By: ###DAVID SHERMAN ####[id number] [place], [place] Abs Neutrophile Cnt 6.7 10*3/uL Normal 2.2-8.2 [facility] Comment on above: Performed By: #### DAVID BOBO ####[address] Anisocytosis Slight Normal [facility] Comment on above: Performed By: ###DAVID SHERMAN ####[id number] [place], [place] Bands 16 % High 0-3 [facility] Comment on above: Performed By: #### DAVID BOBO ####[address] [place] Cells Slight Normal [facility] Comment on above: Performed By: #### DAVID BOBO ####[facility] [id number] [place], [place] Lymphocytes 7 % Low 20-40 [facility] Comment on above: Performed By: #### DAVID BOBO ####[facility] [id number] [place], [place] Macrocytosis Slight Normal [facility] Comment on above: Performed By: #### DAVID BOBO ####[facility] [id number] [place], [place] Monocytes 6 % Normal 2-10 [facility] Comment on above: Performed By: #### DAVID BOBO ####[facility] [id number] [place], [place] Ovalocytes Slight Normal [facility] Comment on above: Performed By: #### DAVID BOBO ####[facility] [id number] [place], [place] Poikilocytosis Slight Normal [facility] Comment on above: Performed By: #### DVAID BOBO ####[facility] [id number] [place], [place] Polychromasia Slight Normal [facility] Comment on above: Performed By: #### DAVID BOBO ####[facility] [id number] [place], [place] RBC Morphology ABNORMAL Normal [facility] Comment on above: Performed By: #### DAVID BOBO ####[facility] [id number] [place], [place] Seg Neutrophils 71 % Normal 40-80 [facility] Comment on above: Performed By: #### DAVID BOBO ####[facility] [id number] [place], [place] Target Cells Slight Normal [facility] Comment on above: Performed By: #### DAVID BOBO ####[facility] [id number] [place], [place] Tear Drop Forms Slight Normal [facility] Comment on above: Performed By: #### DAVID BOBO ####[address] Toxic Granulation Slight Normal [facility] Comment on above: Performed By: #### DAVID BOBO ####[address] Toxic Vacuoles Slight Normal [facility] Comment on above: Performed By: #### DAVID BOBO ####[address] Abs Baso Cnt 0.0 10*3/uL Normal 0.0-0.2 [facility] Comment on above: Performed By: #### DAVID BOBO ####[address] Abs Eosin Cnt 0.0 10*3/uL Normal 0.0-0.5 [facility] Comment on above: Performed By: #### DAVID BOBO ####[address] Basophils 0 % Normal 0-2 [facility] Comment on above: Performed By: #### DAVID BOBO ####[address] Cells counted 100 Normal [facility] Comment on above: Performed By: #### DAVID BOBO ####[facility] [id number] [place], [place] Eosinophils 0 % Low 1-6 [facility] Comment on above: Performed By: #### DAVID BOBO ####[address] Manual Differentialon 2021 Absolute Baso # 0.0 10*3/uL 0 - 0.2 10*3/uL [facility] Absolute Eos # 0.0 10*3/uL 0 - 0.5 10*3/uL [facility] Absolute Lymph # 0.5 10*3/uL Low 1.1 - 4.5 10*3/uL [facility] Absolute [place] # 0.5 10*3/uL 0.2 - 1.1 10*3/uL [facility] Absolute Neut # 6.7 10*3/uL 2.2 - 8.2 10*3/uL [facility] Anisocytosis Slight [facility] Bands 16 % High 0 - 3 % [facility] Basophils/100 WBC (Bld) 0 % 0 - 2 % [facility] Brandt Cells Slight [facility] Eosinophils/100 WBC (Bld) 0 % Low 1 - 6 % [facility] Interpretation and review of laboratory results Abnormal [facility] Lymphocytes/100 WBC (Bld) 7 % Low 20 - 40 % [facility] Macrocytosis Slight [facility] Monocytes/100 WBC (Bld) 6 % 2 - 10 % S [facility] Ovalocytes Slight [facility] Poikilocytes Slight [facility] Polychromasia Slight [facility] RBC (Bld) [#/Vol] ABNORMAL [facility] Seg Neutrophils 71 % 40 - 80 % [facility] Target Cells Slight [facility] Tear Drop Cells Slight [facility] TOTAL CELLS COUNTED 100 [facility] Toxic Granulation Slight [facility] TOXIC VACUOLES Slight [facility] POCT Glucoseon 01-02-2022 Glucose [Mass/Vol] 100 mg/dL 70 - 100 mg/dL [facility] Work Phone: [phone] [facility] Work Phone: [phone] Procalcitoninon 01-02-2022 Procalcitonin 23.68 ng/mL High 0.00-0.09 [facility] Comment on above: Performed By: #### B GLU #### [address] [address] Interpretation See Below [facility] Interpretation and review of laboratory results Abnormal [facility] Procalcitonin 23.68 ng/mL High 0 - 0.09 ng/mL [facility] XR CHEST PORTABLEon 01-03-20 22 [facility] Work Phone: [phone] [facility] Work Phone: [phone] Radiology Study observation (narrative) [facility] Work Phone: [phone] Basic Metabolic Panelon Calcium [Mass/Vol] 7.2 mg/dL Low 8.4-10.4 [facility] Comment on above: Performed By: #### B GLU #### [facility] [address], [place] Glucose [Mass/Vol] 129 mg/dL High 70-100 [facility] Comment on above: Performed By: #### B GLU #### [facility] [address] [place], [place] Urea nitrogen [Mass/Vol] 3 mg/dL Low 9-20 [facility] Comment on above: Performed By: #### B GLU #### [facility] [address] [place], [place] Anion gap [Moles/Vol] 2 mmol/L Low 3-13 [facility] Comment on above: Performed By: #### B GLU #### [facility] [address] [place], [place] CO2 [Moles/Vol] 22 mmol/L Normal 22-30 [facility] Comment on above: Performed By: #### B GLU #### [facility] [address] [place], [place] Creatinine [Mass/Vol] 0.40 mg/dL Low 0.52-1.25 [facility] Comment on above: Performed By: #### B GLU #### [facility] [address] [place], [place] eGFR OTHER > 90.0 Normal >60 [facility] Comment on above: Result Comment: KDIG O guidelines provide the following GFR categories: Stage GFR(ml/min/1.73 m2) Terms G1 >=90 Normal or high G2 60-89 Mildly decreased* G3a 45-59 Mildly to moderately decreased G3b 30-44 Moderately to severely decreased G4 15-29 Severely decreased G5 <15 Kidney failure *Relative to young adult level. In the absence of evidence of kidney damage, neither GFR category G1 nor G2 fulfill the criteria for CKD. The CKD-EPI equation is validated in individuals 18 years of age and older. Currently the best equation for estimating glomerular filtration rate (GFR) from serum creatinine in children is the Bedside Velez equation. It is less accurate in patients with extremes of muscle mass, restriction of dietary protein, ingestion of creatine, extra-renal metabolism of creatinine, or treatment with medications that affect renal tubular creatinine secretion. Performed By: #### B GLU #### [address] [place], [place] GFR/1.73 sq M.predicted among blacks MDRD (S/P/Bld) [Vol rate/Area] mL/min/{1.73_m2} Normal >60 [facility] Comment on above: Performed By: #### B GLU #### [address] [place] Chloride [Moles/Vol] 112 mmol/L High 98-107 [facility] Comment on above: Performed By: #### B GLU #### [address] [place], [place] Potassium [Moles/Vol] 4.1 mmol/L Normal 3.5-5.1 [facility] Comment on above: Performed By: #### B GLU #### [address] [place] Sodium [Moles/Vol] 136 mmol/L Normal 135-145 [facility] Comment on above: Performed By: #### B GLU #### [address] [place], [place] Basic Metabolic Panel w/ Ref emmanuel to MGon 01-01-2022 Anion gap [Moles/Vol] 2 mmol/L Low 3 - 13 mmol/L [facility] Calcium [Mass/Vol] 7.2 mg/dL Low 8.4 - 10. 4 mg/dL [facility] Chloride [Moles/Vol] 112 mmol/L High 98 - 10 7 mmol/L [facility] CO2 [Moles/Vol] 22 mmol/L 22 - 30 mmol/L [facility] Creatinine [Mass/Vol] 0.4 mg/dL Low 0.52 - 1.25 mg/dL [facility] eGFR mL/min 60 - P INF mL/min [facility] EGFR IF NonAfrican Trin[place] mL/min 60 - PINF mL/min [facility] Glucose [Mass/Vol] 129 mg/dL High 70 - 100 mg/dL [facility] Potassium [Moles/Vol] 4.1 mmol/L 3.5 - 5.1 mmol/L [facility] Sodium [Moles/Vol] 136 mmol/L 135 - 145 mmol/L [facility] Urea nitrogen (BldV) [Mass/Vol] 3 mg/dL Low 9 - 20 mg/dL [facility] CBC with Auto Differentialon 01-01-2022 Absolute Baso # 0.0 10*3/uL 0 - 0.2 10*3/uL [facility] Absolute Neut # 10.9 10*3/uL High 1.8 - 7 10*3/uL [facility] Basophils/100 WBC (Bld) 0.1 % 0 - 2 % [facility] Eosinophils (Bld) [#/Vol] 0.0 10*3/uL 0 - 0.5 10*3/uL [facility] Eosinophils/100 WBC (Bld) 0.1 % Low 1 - 6 % [facility] Granulocytes/100 WBC (Bld) 91.7 % High 40 - 80 % [facility] Hematocrit (Bld) [Volume fraction] 32.4 % Low 35 - 47 % [facility] Hemoglobin (Bld) [Mass/Vol] 10.9 g/dL Low 11.7 - 16 g/dL [facility] Interpretation and review of laboratory results Abnormal [facility] Lymphocytes (Bld) [#/Vol] 0.3 10*3/uL Low 1 - 4.3 10*3/uL [facility] Lymphocytes/100 WBC (Bld) 2.3 % Low 20 - 40 % [facility] MCH (RBC) [Entitic mass] 35.8 pg High 26 - 34 pg [facility] MCHC (RBC) [Mass/Vol] 33.7 % 32 - 36 % [facility] MCV (RBC) [Entitic vol] 106.1 fL High 79 - 98 fL [facility] Monocytes (Bld) [#/Vol] 0.7 10*3/uL 0 - 0.8 10*3/uL [facility] Monocytes/100 WBC (Bld) 5.8 % 2 - 10 % [facility] Platelet distribution width (Bld) [Ratio] 17.0 % High 11.5 - 14.5 % [facility] Platelet mean volume (Bld) [Entitic vol] 7.3 fL Low 7.4 - 12.4 fL [facility] Platelets (Bld) [#/Vol] 220 10*3/uL 140 - 440 10*3/uL [facility] RBC (Bld) [#/Vol] 3.05 10*6/uL Low 3.8 - 5.2 10*6/uL [facility] WBC (Bld) [#/Vol] 11.8 10*3/uL High 3.6 - 10.7 10*3/uL [facility] CR Abdomen APon 01-01-2022 CR Abdomen AP Patient Name: JAIMIE MCGOVERN Diagnostic Radiology ACCESSION EXAM DATE/TIME PROCEDURE ORDERING PROVIDER [id number] 01/01/2022 06:10 EDT CR Abdomen AP [id number] -[place] CPT code 14248 Reason For Exam (CR Abdomen AP) assess for cecal pneumatosis Report EXAM TYPE: CR Abdomen AP EXAM DATE AND TIME: 01/01/2022 6:10 AM EDT INDICATION: 76 years Female with possible cecal pneumatosis COMPARISON: Radiograph from yesterday TECHNIQUE: AP supine radiograph of the abdomen and pelvis was obtained. FINDINGS: The bowel gas pattern is unremarkable. No pneumatosis intestinalis or pneumatosis coli. Limited evaluation for free air or air-fluid levels on supine-only imaging. No abnormal soft tissue calcifications are seen. Degenerative changes are seen in the visualized spine.. Postsurgical changes in the right hip. The lung bases are not included in the field of view. IMPRESSION: No pneumatosis intestinalis or pneumatosis coli. Nonobstructive bowel gas pattern. If there is concern for an abdominopelvic process not seen radiographically, consider CT or ultrasound depending on the nature of the symptoms. Report Dictated on Final Dictated: 01/01/2022 7:24 am Dictating Physician: MD SUNSHINE NICHOLAS Signed Date and Time: 01/01/2022 7:25 am Signed by: MD SUNSHINE NICHOLAS Transcribed Date and Time: 01/01/2022 7:24 Normal [facility] CR Chest Portableon 01-02-20 CR Chest Portable Patient Name: JAIMIE MCGOVERN Diagnostic Radiology ACCESSION EXAM DATE/TIME PROCEDURE ORDERING PROVIDER [id number] 01/01/2022 11:08 EDT CR Chest Portable [id number] -[place] CPT code 49669 Reason For Exam (CR Chest Portable) right chest tube placement Report CHEST: CLINICAL INDICATION: Chest tube placement TECHNIQUE: AP portable chest COMPARISON: Earlier today at 5:32 AM FINDINGS: Interval placement of a right basilar chest tube. No pneumothorax. Some improved aeration of the right lung base and decreased size of the right pleural effusion. No other significant interval change. Report Dictated on Final Dictated: 01/01/2022 12:16 pm Dictating Physician: MD SUNSHINE NICHOLAS Signed Date and Time: 01/01/2022 12:19 pm Signed by: MD SUNSHINE NICHOLAS Transcribed Date and Time: 01/01/2022 12:17 [facility] CR Chest Portable Patient Name: JAIMIE MCGOVERN Diagnostic Radiology ACCESSION EXAM DATE/TIME PROCEDURE ORDERING PROVIDER [id number] 01/01/2022 06:10 EDT CR Chest Portable MD MACIEL ANDREW CPT code 55208 Reason For Exam (CR Chest Portable) patient with desaturation and tacypnea Report CHEST: CLINICAL INDICATION: Hypoxia, tachypnea TECHNIQUE: AP portable chest COMPARISON: Radiograph from yesterday FINDINGS: Support devices: Stable right IJ central venous catheter The cardiomediastinal silhouette appears unchanged from the prior exam. Multifocal opacities in both lungs, greater on the right and most notable in the upper lobes, not significantly changed. Large right pleural effusion again present. Small left pleural effusion. The osseous structures are unremarkable. IMPRESSION: Multifocal opacities in both lungs, greater on the right and most notable in the upper lobes, not significantly changed. Large right pleural effusion again present. Small left pleural effusion. Report Dictated on Final Dictated: 01/01/2022 7:22 am Dictating Physician: MD SUNSHINE NICHOLAS Signed Date and Time: 01/01/2022 7:24 am Signed by: MD SUNSHINE NICHOLAS Transcribed Date and Time: 01/01/2022 7:22 Normal [facility] CT GUIDED PLEURAL DRAINAGE W CATH PERCon 01-01-2022 [facility] Work Phone: [facility] Work Phone: CT Insert Cath Pleura w/ Shawanda geon 01-01-2022 CT Insert Cath Pleura w/ Image Patient Name: JAIMIE MCGOVERN Computed Tomography ACCESSION EXAM DATE/TIME PROCEDURE ORDERING PROVIDER [id number] 01/01/2022 10:[address] Insert Cath Pleura w/ [id number] -NATHALIE, ANEIL Image CPT code 55525 Reason For Exam (CT Insert Cath Pleura w/ Image) consult for Alonso thoracentesis - R sided pigtail if output >750cc or thick Report EXAMINATION: CT-guided right-sided chest tube placement. CLINICAL INFORMATION: Recurrent sizable pleural effusion. Prior to the procedure, the details of the examination were explained to the patient. She understands the risks, alternative, and benefits and wishes to proceed. Informed written consent is obtained and placed in the chart. ANESTHESIA: 1 mg Versed and 50 mcg Fentanyl IV for intraservice conscious sedation. The patient was monitored by an independent observer/nurse for a total of 30 minutes. Local anesthesia is maintained with Lidocaine. PROCEDURE: The patient was placed supine on the CT table. A limited CT scan through the chest demonstrates a sizable right-sided pleural effusion. A site was picked for percutaneous drainage. This area was prepped and draped in the usual fashion. Under CT guidance, an 18 gauge Chiba needle was directed without difficulty into the posterior pleural space. Subsequently, the tract was dilated. A 12 Israeli pigtail drainage catheter was advanced into position. A CT was performed to confirm its position. There were no immediate complications. The patient tolerated the procedure without difficulty and was transferred back to the floor in stable condition. IMPRESSION: 1. Successful placement of a right-sided pigtail chest tube as detailed above. Report Dictated on Final Dictated: 01/01/2022 10:45 am Dictating Physician: MD LOYOLA JEFFREY Signed Date and Time: 01/01/2022 10:48 am Signed by: MD LOYOLA JEFFREY Transcribed Date and Time: 01/01/2022 10:45 Normal [facility] CULTURE AND STAIN - FLUIDon 01-01-2022 CULTURE AND STAIN - FLUID CULTURE & STAIN - FLUID --> Status: F No growth at 5 days. STAIN GRAM --> Status: F Many polymorphonuclear cells/lpf. No organisms seen. No organisms seen. Normal [facility] Comment on above: Performed By: #### B MP3M, HEMDF, MG3, PHOS3, PCAL #### [facility] [address] [place], [place] Glucose,Bedsideon 01-01-2022 Glucose [Mass/Vol] 125 mg/dL High 70-100 [facility] Comment on above: Result Comment: Test performed by glucose meter. Results may be 10%-15% lower than serum/plasma values. (CLIA ID [id number]) Performed By: #### B GLU ####[id number] [place], [place] Glucose [Mass/Vol] 102 mg/dL High 70-100 [facility] Comment on above: Result Comment: Test performed by glucose meter. Results may be 10%-15% lower than serum/plasma values. (CLIA ID [id number]) Performed By: #### B GLU #### [facility] [address], [place] Glucose [Mass/Vol] 120 mg/dL High 70-100 [facility] Comment on above: Result Comment: Test performed by glucose meter. Results may be 10%-15% lower than serum/plasma values. (CLIA ID [id number]) Performed By: #### B GLU ####[id number] [place], [place] Hemogram w/ Autodiffon 01-01 Abs Baso Cnt 0.0 10*3/uL Normal 0.0-0.2 [facility] Comment on above: Performed By: #### B GLU #### [facility] [address] [place], [place] Abs Neutrophile Cnt 10.9 10*3/uL High 1.8-7.0 [facility] Comment on above: Performed By: #### B GLU #### [facility] [address] [place] [address] Basophils/100 WBC (Bld) 0.1 % Normal 0.0-2.0 S [facility] Comment on above: Performed By: #### B GLU #### [facility] [address] [place] [address] Eosinophils (Bld) [#/Vol] 0.0 10*3/uL Normal 0.0-0.5 [facility] Comment on above: Performed By: #### B GLU #### [facility] [address] [place] [address] Eosinophils/100 WBC (Bld) 0.1 % Low 1.0-6.0 [facility] Comment on above: Performed By: #### B GLU #### [address] [place] [address] Erythrocyte distribution width (RBC) [Ratio] 17.0 % High 11.5-14.5 [facility] Comment on above: Performed By: #### B GLU #### [address] [place] [address] Granulocytes/100 WBC (Bld) 91.7 % High 40.0-80.0 [facility] Comment on above: Performed By: #### B GLU #### [facility] [address] [place] [address] Hematocrit (Bld) [Volume fraction] 32.4 % Low 35.0-47.0 [facility] Comment on above: Performed By: #### B GLU #### [address] [place] [address] Hemoglobin (Bld) [Mass/Vol] 10.9 g/dL Low 11.7-16.0 [facility] Comment on above: Performed By: #### B GLU #### [address] [place] [address] Lymphocytes (Bld) [#/Vol] 0.3 10*3/uL Low 1.0-4.3 [facility] Comment on above: Performed By: #### B GLU #### [facility] [address], [place] Lymphocytes/100 WBC (Bld) 2.3 % Low 20.0-40.0 [facility] Comment on above: Performed By: #### B GLU #### [facility] [address], [place] MCH (RBC) [Entitic mass] 35.8 pg High 26.0-34.0 [facility] Comment on above: Performed By: #### B GLU #### [facility] [address] MCHC 33.7 % Normal 32.0-36.0 [facility] Comment on above: Performed By: #### B GLU #### [address] [place], [place] MCV (RBC) [Entitic vol] 106.1 fL High 79.0-98.0 [facility] Comment on above: Performed By: #### B GLU #### [address] [place], [place] Monocytes (Bld) [#/Vol] 0.7 10*3/uL Normal 0.0-0.8 [facility] Comment on above: Performed By: #### B GLU #### [address] [place], [place] Monocytes/100 WBC (Bld) 5.8 % Normal 2.0-10.0 [facility] Comment on above: Performed By: #### B GLU #### [address] [place] Platelet mean volume (Bld) [Entitic vol] 7.3 fL Low 7.4-12.4 [facility] Comment on above: Result Comment: MPV is a calculated measurement using platelet volume ratio. Performed By: #### B GLU #### [address] [place], [place] Platelets (Bld) [#/Vol] 220 10*3/uL Normal 140-440 [facility] Comment on above: Performed By: #### B GLU #### [facility] [address], [place] RBC (Bld) [#/Vol] 3.05 10*6/uL Low 3.80-5.20 [facility] Comment on above: Performed By: #### B GLU #### [facility] [address], [place] WBC (Bld) [#/Vol] 11.8 10*3/uL High 3.6-10.7 [facility] Comment on above: Performed By: #### B GLU #### [facility] [address], [place] Hepatic Functionon 2 ALP [Catalytic activity/Vol] 56 U/L Normal 38-126 [facility] Comment on above: Performed By: #### B GLU #### [facility] [address] [place], [place] ALT [Catalytic activity/Vol] 12 U/L Normal 0-34 [facility] Comment on above: Result Comment: The ALT test is performed by an updated assay method. Please note that the reference intervals have been changed and are now sex specific. Performed By: #### B GLU #### [facility] [address], [place] AST [Catalytic activity/Vol] 35 U/L Normal 15-46 [facility] Comment on above: Performed By: #### B GLU #### [facility] [address] [facility], [place] Bilirubin [Mass/Vol] 1.0 mg/dL Normal 0.2-1.3 [facility] Comment on above: Performed By: #### B GLU #### [facility] [address] [facility] [place], [place] Bilirubin.indirect [Mass/Vol] 0.0 mg/dL Normal 0.0-0.3 [facility] Comment on above: Performed By: #### B GLU #### [facility] [address] [facility], [place] Protein [Mass/Vol] 5.3 g/dL Low 6.3-8.2 [facility] Comment on above: Performed By: #### B GLU #### [facility] [address] [place] [address] Albumin [Mass/Vol] 2.5 g/dL Low 3.5-5.0 [facility] Comment on above: Performed By: #### B GLU #### [facility] [address] [place] [address] Hepatic Function Panelon Albumin [Mass/Vol] 2.5 g/dL Low 3.5 - 5 g/dL [facility] ALP (Bld) [Catalytic activity/Vol] 56 U/L 38 - 126 U/L [facility] ALT [Catalytic activity/Vol] 12 U/L 0 - 34 U/L [facility] AST [Catalytic activity/Vol] 35 U/L 15 - 46 U/L [facility] Bilirubin [Mass/Vol] 1.0 mg/dL 0.2 - 1 .3 mg/dL [facility] Bilirubin.indirect [Mass/Vol] 0.0 mg/dL 0 - 0.3 mg/dL [facility] Free PSA/Total PSA [Mass fraction] 5.3 g/dL Low 6.3 - 8.2 g/dL [facility] No Panel Informationon 01-01 Radiology Study observation (narrative) [facility] Work Phone: Interpretation and review of laboratory results Abnormal [facility] POCT GlucoseOrdered By: Vamshi Solorio on 01-01-2022 Glucose [Mass/Vol] 125 mg/dL High 70 - 100 mg/dL [facility] Work Phone: Interpretation and review of laboratory results Abnormal [facility] Work Phone: [facility] Work Phone: POCT Glucoseon 01-01-2022 [facility] Glucose [Mass/Vol] 102 mg/dL High 70 - 100 mg/dL [facility] Work Phone: Interpretation and review of laboratory results Abnormal [facility] Work Phone: [facility] Work Phone: Glucose [Mass/Vol] 120 mg/dL High 70 - 100 mg/dL [facility] Work Phone: Interpretation and review of laboratory results Abnormal [facility] Work Phone: [facility] Work Phone: Procalcitoninon 01-01-2022 Interpretation See Below Normal [facility] Comment on above: Result Comment: PCT <0.50 = Low risk of severe sepsis and/or septic shock. PCT >2.00 = High risk of severe sepsis and/or septic shock. Performed By: #### B GLU #### [facility] [employer] [address] [place] [address] Staph Aureus Complete Nasalo n 01-01-2022 Staph Aureus Complete Nasal Staph Screen --> Status: F No S. aureus detected. Negative nasal MRSA PCR has a high negative predictive value for MRSA pneumonia. Consider stopping vancomycin if no other clinical indication. Contact Antimicrobial Stewardship for further recommendations. The analytical performance characteristics of this assay have been determined by [facility] in accordance with CLIA regulations. The modifications have not been cleared or approved by the U. S. Food and Drug Administration; however, the FDA has determined that such clearance or approval is not necessary. Negative nasal MRSA PCR has a high negative predictive value for MRSA pneumonia. Consider stopping vancomycin if no other clinical indication. Contact Antimicrobial Stewardship for further recommendations. The analytical performance characteristics of this assay have been determined by [facility] in accordance with CLIA regulations. The modifications have not been cleared or approved by the U. S. Food and Drug Administration; however, the FDA has determined that such clearance or approval is not necessary. Normal [facility] Comment on above: Performed By: #### B MP3M, HEMDF, MG3, PHOS3, PCAL #### [facility] [address] [place] [address] XR ABDOMEN (KUB) (SINGLE AP VIEW)on 01-01-2022 [facility] [employer] Work Phone: XR ABDOMEN (KUB) (SINGLE AP VIEW)Ordered By: Ted Sunshine on 01-01-2022 [employer] Work Phone: XR CHEST PORTABLEon 01-02-20 [facility] Work Phone: [phone] [facility] Work Phone: [phone] [facility] Work Phone: [phone] [facility] Work Phone: [phone] Basic Metabolic Panelon 09-0 Calcium [Mass/Vol] 7.4 mg/dL Low 8.4-10.4 [facility] Comment on above: Performed By: #### M G3, LFT3, PCAL, BMP3M ####[facility] [employer] [id number] [place] [address] Glucose [Mass/Vol] 163 mg/dL High 70-100 [facility] Comment on above: Performed By: #### M G3, LFT3, PCAL, BMP3M ####[facility] [employer] [id number] [place] [address] Anion gap [Moles/Vol] 2 mmol/L Low 3-13 [facility] Comment on above: Performed By: #### M G3, LFT3, PCAL, BMP3M ####[facility] [employer] [id number] [employer] [place] [address] CO2 [Moles/Vol] 23 mmol/L Normal 22-30 [facility] Comment on above: Performed By: #### M G3, LFT3, PCAL, BMP3M ####[facility] [employer] [id number] [place] [address] Creatinine [Mass/Vol] 0.49 mg/dL Low 0.52-1.25 [facility] Comment on above: Performed By: #### M G3, LFT3, PCAL, BMP3M ####[facility] [employer]. [id number] [place] [address] eGFR OTHER > 90.0 Normal >60 [facility] Comment on above: Result Comment: KDIG O guidelines provide the following GFR categories: Stage GFR(ml/min/1.73 m2) Terms G1 >=90 Normal or high G2 60-89 Mildly decreased* G3a 45-59 Mildly to moderately decreased G3b 30-44 Moderately to severely decreased G4 15-29 Severely decreased G5 <15 Kidney failure *Relative to young adult level. In the absence of evidence of kidney damage, neither GFR category G1 nor G2 fulfill the criteria for CKD. The CKD-EPI equation is validated in individuals 18 years of age and older. Currently the best equation for estimating glomerular filtration rate (GFR) from serum creatinine in children is the Bedside Velez equation. It is less accurate in patients with extremes of muscle mass, restriction of dietary protein, ingestion of creatine, extra-renal metabolism of creatinine, or treatment with medications that affect renal tubular creatinine secretion. Performed By: #### M G3, LFT3, PCAL, BMP3M ####[id number] [place], [place] GFR/1.73 sq M.predicted among blacks MDRD (S/P/Bld) [Vol rate/Area] mL/min/{1.73_m2} Normal >60 [facility] Comment on above: Performed By: #### M G3, LFT3, PCAL, BMP3M ####[address] Urea nitrogen [Mass/Vol] 5 mg/dL Low 9-20 [facility] Comment on above: Performed By: #### M G3, LFT3, PCAL, BMP3M ####[address] Chloride [Moles/Vol] 111 mmol/L High 98-107 [facility] Comment on above: Performed By: #### M G3, LFT3, PCAL, BMP3M ####[address] Potassium [Moles/Vol] 2.9 mmol/L Low 3.5-5.1 [facility] Comment on above: Performed By: #### M G3, LFT3, PCAL, BMP3M ####[address] Sodium [Moles/Vol] 137 mmol/L Normal 135-145 [facility] Comment on above: Performed By: #### M G3, LFT3, PCAL, BMP3M ####[address] Basic Metabolic Panel w/ Ref emmanuel to MGon 12-31-2021 Anion gap [Moles/Vol] 2 mmol/L Low 3 - 13 mmol/L [facility] Calcium [Mass/Vol] 7.4 mg/dL Low 8.4 - 10. 4 mg/dL [facility] Chloride [Moles/Vol] 111 mmol/L High 98 - 10 7 mmol/L [facility] CO2 [Moles/Vol] 23 mmol/L 22 - 30 mmol/L [facility] Creatinine [Mass/Vol] 0.49 mg/dL Low 0.52 - 1.25 mg/dL [facility] eGFR mL/min 60 - P INF mL/min [facility] EGFR IF NonAfrican Trinidadian mL/min 60 - PINF mL/min [facility] Glucose [Mass/Vol] 163 mg/dL High 70 - 100 mg/dL [facility] Interpretation and review of laboratory results Abnormal [facility] Potassium [Moles/Vol] 2.9 mmol/L Low 3.5 - 5.1 mmol/L [facility] Sodium [Moles/Vol] 137 mmol/L 135 - 145 mmol/L [facility] Urea nitrogen (BldV) [Mass/Vol] 5 mg/dL Low 9 - 20 mg/dL [facility] CBC with Auto Differentialon 12-31-2021 Absolute Baso # 0.0 10*3/uL 0 - 0.2 10*3/uL [facility] Absolute Neut # 6.4 10*3/uL 1.8 - 7 10*3/uL [facility] Basophils/100 WBC (Bld) 0.2 % 0 - 2 % [facility] Eosinophils (Bld) [#/Vol] 0.0 10*3/uL 0 - 0.5 10*3/uL [facility] Eosinophils/100 WBC (Bld) 0.2 % Low 1 - 6 % [facility] Granulocytes/100 WBC (Bld) 85.2 % High 40 - 80 % [facility] Hematocrit (Bld) [Volume fraction] 32.2 % Low 35 - 47 % [facility] Hemoglobin (Bld) [Mass/Vol] 10.6 g/dL Low 11.7 - 16 g/dL [facility] Interpretation and review of laboratory results Abnormal [facility] Lymphocytes (Bld) [#/Vol] 0.4 10*3/uL Low 1 - 4.3 10*3/uL [facility] Lymphocytes/100 WBC (Bld) 5.4 % Low 20 - 40 % [facility] MCH (RBC) [Entitic mass] 35.2 pg High 26 - 34 pg [facility] MCHC (RBC) [Mass/Vol] 33.1 % 32 - 36 % [facility] MCV (RBC) [Entitic vol] 106.5 fL High 79 - 98 fL [facility] Monocytes (Bld) [#/Vol] 0.7 10*3/uL 0 - 0.8 10*3/uL [facility] Monocytes/100 WBC (Bld) 9.0 % 2 - 10 % [facility] Platelet distribution width (Bld) [Ratio] 16.6 % High 11.5 - 14.5 % [facility] Platelet mean volume (Bld) [Entitic vol] 6.8 fL Low 7.4 - 12.4 fL [facility] Platelets (Bld) [#/Vol] 193 10*3/uL 140 - 440 10*3/uL [facility] RBC (Bld) [#/Vol] 3.02 10*6/uL Low 3.8 - 5.2 10*6/uL [facility] WBC (Bld) [#/Vol] 7.8 10*3/uL 3.6 - 10.7 10*3/uL [facility] CR Abdomen APon 12-31-2021 CR Abdomen AP Patient Name: JAIMIE MCGOVERN Diagnostic Radiology ACCESSION EXAM DATE/TIME PROCEDURE ORDERING PROVIDER [id number] 12/31/2021 05:51 EDT CR Abdomen AP [id number] -[place] CPT code 66785 Reason For Exam (CR Abdomen AP) assess for cecal pneumatosis Report EXAMINATION: ABDOMINAL RADIOGRAPH HISTORY: Assess for pneumatosis TECHNIQUE: AP view COMPARISON: 12/30/2021 FINDINGS: Nonobstructive bowel gas pattern. No free air or definite evidence of pneumatosis. No abnormal calcifications. No acute osseous abnormality. Contrast within the colon noted. IMPRESSION: No definite evidence of pneumatosis though evaluation is limited on radiograph. Nonobstructive bowel gas pattern. Report Dictated on Final Dictated: 12/31/2021 7:34 am Dictating Physician: MD SERA, KISHA ROGEL Signed Date and Time: 12/31/2021 7:44 am Signed by: MD BECERRA WASSIM OSAMA Transcribed Date and Time: 12/31/2021 7:34 Normal [facility] CR Chest Portableon 01-01-20 CR Chest Portable Patient Name: JAIMIE MCGOVERN [facility]#: [id number] Diagnostic Radiology ACCESSION EXAM DATE/TIME PROCEDURE ORDERING PROVIDER [id number] 12/31/2021 05:51 EDT CR Chest Portable MD MACIEL ANDREW CPT code 34729 Reason For Exam (CR Chest Portable) patient with desaturation and tacypnea Report EXAM TYPE: RADIOLOGIC EXAMINATION, CHEST, SINGLE VIEW FRONTAL (CXR SINGLE VIEW) EXAM DATE AND TIME: 12/31/2021 5:51 AM EDT INDICATION: Respiratory distress COMPARISON: 12/30/2021 TECHNIQUE: A single frontal view of the thorax was obtained and reviewed. Special views: None. IMPRESSION: 1. Lines/Tubes/Devices/H ardware: Stable projection of venous access. Please confirm position/function of devices/catheters clinically. 2. Lungs: Abnormal. Persistent infiltrate densities and volume loss. Enlarging right effusion.. Limited due to technique. Consider follow-up with PA and lateral chest for persistent symptoms. 3. Pleura: See above. No significant pneumothorax. 4. Heart and mediastinum: Limited due to technique. 5. Upper abdomen: No acute process seen. 6. Thorax:No acute bony process Report Dictated on Final Dictated: 12/31/2021 7:15 am Dictating Physician: MD CERRATO JOHN Signed Date and Time: 12/31/2021 7:16 am Signed by: MD CERRATO JOHN Transcribed Date and Time: 12/31/2021 7:15 [facility] CTA CHEST ABDOMEN PELVIS W C ONTRASTon 12-31-2021 [facility] Work Phone: [facility] Work Phone: CTA Chest/Abdomen/Pelvis w/ + w/o contraon 12-31-2021 CTA Chest/Abdomen/Pelvis w/ + w/o contra Patient Name: JAIMIE MCGOVERN Computed Tomography ACCESSION EXAM DATE/TIME PROCEDURE ORDERING PROVIDER [id number] 12/31/2021 12:41 EDT CTA Chest/Abdomen/Pelvis [id number] -[place] w/ + w/o contra CPT code 86218 [id number] Reason For Exam (CTA Chest/Abdomen/Pelvis w/ + w/o contra) elevated procal, pleural effusion, concern for cecal pneumatosis, concern for pneumomediastinum Report CT ANGIOGRAM OF THE CHEST, ABDOMEN AND PELVIS, INDICATION: Pleural effusion TECHNIQUE: Multidetector contiguous 2 mm axial images obtained from of the chest abdomen pelvis before and after the administration of 75 mL of Isovue-370 intravenous contrast in the angiographic phase. Coronal and sagittal reformats were included. MIP reformats were performed at a non-independent work station. COMPARISON: Chest CT 12/27/2021 FINDINGS: CT ANGIOGRAM OF THE CHEST, ABDOMEN AND PELVIS: THORACIC AORTA: Thoracic aorta is normal in caliber. Mild calcifications of the thoracic aorta. No evidence of abdominal aortic dissection or aneurysm. Scattered atherosclerotic calcifications of the abdominal aorta and its major branches. The abdominal aorta measures 1.6 cm. The celiac, superior and inferior mesenteric and renal arteries are patent and normal in caliber. Conventional branching pattern of the celiac axis. Left common iliac artery is dilated measuring 1.5 cm. Otherwise, right common iliac and bilateral external/internal iliac arteries are unremarkable. CT CHEST: PULMONARY ARTERIES: The main pulmonary artery is normal in caliber. Limited evaluation for pulmonary emboli due to phase of contrast. LUNGS AND AIRWAYS: The central tracheobronchial tree is clear. Large right and moderate left loculated pleural effusions with atelectasis of the right middle and bilateral lower lobes. Ground glass opacities in the left greater than right upper lobes. PLEURA: Loculated effusions. No pneumothorax. Computed Tomography Report LOWER NECK: Visualized portion of the thyroid is unremarkable. No lymphadenopathy. MEDIASTINUM AND LEWIS: Significant interval decrease in pneumomediastinum with only few foci remaining. No mediastinal lymphadenopathy. No hilar lymphadenopathy. HEART AND PERICARDIUM: Heart size is normal. No pericardial thickening or effusion. No visible coronary artery calcification. CHEST WALL: Unremarkable. No axillary or supraclavicular lymphadenopathy. CT ABDOMEN AND PELVIS: LIVER: Unremarkable. GALLBLADDER: Unremarkable. No calcified gallstones. BILIARY TREE: No intrahepatic or extrahepatic biliary ductal dilatation. PANCREAS: Unremarkable. SPLEEN: Unremarkable. ADRENAL GLANDS: Unremarkable. KIDNEYS/URETERS: Unremarkable. No renal or ureteral stones. No hydronephrosis or hydroureter. GI TRACT: No bowel wall thickening, distention, or obstruction in the small or large bowel. Slightly ill-defined cecal wall may be due to respiratory degradation. No definite pneumatosis. Diverticulosis without diverticulitis. APPENDIX: Normal. LYMPH NODES: No lymphadenopathy. BLADDER: Indwelling [place] PELVIS: No pelvic mass. PERITONEUM/RETROPERIT ONEUM: No free fluid or focal fluid collections. No intraperitoneal free air. INGUINAL: Unremarkable. VESSELS: Normal caliber abdominal aorta. No abnormality of the IVC or portal venous system. SUPERFICIAL SOFT TISSUES: Edema within the subcutaneous fat bilateral hips. BONES: No suspicious lytic or blastic bone lesions. Compression deformity of the L2 vertebral body of uncertain chronicity. Minimal posterior displacement of fracture fragments. CONCLUSION: No evidence of aortic aneurysm, dissection, or intracranial hematoma. Dilatation of the left common iliac artery measuring 1.5 cm. Moderate Computed Tomography Report diffuse atherosclerotic disease noted. Significant improvement in pneumomediastinum with only few foci remaining along the right esophageal wall. Large right and moderate left loculated pleural effusions with atelectasis of the right middle lobe and bilateral lower lobes. Multifocal infiltrate within the left more than right upper lobes. No evidence of pneumatosis intestinalis. No acute abdominal abnormality. Compression deformity of the L2 vertebral body of uncertain chronicity. Minimal posterior displacement of fracture fragments. Report Dictated on Final Dictated: 12/31/2021 2:49 pm Dictating Physician: MD SERA, KISHA ROGEL Signed Date and Time: 12/31/2021 3:16 pm Signed by: MD SERA, KISHA ROGEL Transcribed Date and Time: 12/31/2021 2:58 Normal [facility] Cytology, Non-Gynon 01-01-20 22 Cytology report Cyto stain.thin prep Doc (Cvx/Vag) SEE BELOW [facility] Glucose, Bedsideon 2 Confirmation see below Normal [facility] Comment on above: Result Comment: No c onfirmation received. Performed By: #### G LUB ####[facility] [employer]. [id number] [place], [place] Glucose,Bedside < 50 Low 70-100 [facility] Comment on above: Result Comment: Test performed by glucose meter. Results may be 10%-15% lower than serum/plasma values. (CLIA ID [id number]) Performed By: #### G LUB ####[id number] [place], [place] Glucose,Bedsideon 12-31-2021 Glucose [Mass/Vol] 129 mg/dL High 70-100 [facility] Comment on above: Result Comment: Test performed by glucose meter. Results may be 10%-15% lower than serum/plasma values. (CLIA ID [id number]) Performed By: #### B GLU ####[id number] [place], [place] Glucose [Mass/Vol] 165 mg/dL High 70-100 [facility] Comment on above: Result Comment: Test performed by glucose meter. Results may be 10%-15% lower than serum/plasma values. (CLIA ID [id number]) Performed By: #### B GLU ####[id number] [place], [place] Hemogram w/ Autodiffon 12-31 Abs Baso Cnt 0.0 10*3/uL Normal 0.0-0.2 [facility] Comment on above: Performed By: #### H EMDF ####[id number] [place], [place] Abs Neutrophile Cnt 6.4 10*3/uL Normal 1.8-7.0 [facility] Comment on above: Performed By: #### H EMDF ####[address] Basophils/100 WBC (Bld) 0.2 % Normal 0.0-2.0 S [facility] Comment on above: Performed By: #### H EMDF ####[id number] [place] [address] Eosinophils (Bld) [#/Vol] 0.0 10*3/uL Normal 0.0-0.5 [facility] Comment on above: Performed By: #### H EMDF ####[id number] [place] [address] Eosinophils/100 WBC (Bld) 0.2 % Low 1.0-6.0 [facility] Comment on above: Performed By: #### H EMDF ####[address] [place] [address] Granulocytes/100 WBC (Bld) 85.2 % High 40.0-80.0 [facility] Comment on above: Performed By: #### H EMDF ####[address] [address] Lymphocytes (Bld) [#/Vol] 0.4 10*3/uL Low 1.0-4.3 [facility] Comment on above: Performed By: #### H EMDF ####[address] [address] Lymphocytes/100 WBC (Bld) 5.4 % Low 20.0-40.0 [facility] Comment on above: Performed By: #### H EMDF ####[address] [address] Monocytes (Bld) [#/Vol] 0.7 10*3/uL Normal 0.0-0.8 [facility] Comment on above: Performed By: #### H EMDF ####[facility] [id number] [place] [address] Monocytes/100 WBC (Bld) 9.0 % Normal 2.0-10.0 [facility] Comment on above: Performed By: #### H EMDF ####[address] [address] Erythrocyte distribution width (RBC) [Ratio] 16.6 % High 11.5-14.5 [facility] Comment on above: Performed By: #### H EMDF ####[address] [place], [place] Hematocrit (Bld) [Volume fraction] 32.2 % Low 35.0-47.0 [facility] Comment on above: Performed By: #### H EMDF ####[address] [place], [place] Hemoglobin (Bld) [Mass/Vol] 10.6 g/dL Low 11.7-16.0 [facility] Comment on above: Performed By: #### H EMDF ####[address] MCH (RBC) [Entitic mass] 35.2 pg High 26.0-34.0 [facility] Comment on above: Performed By: #### H EMDF ####[address] MCHC 33.1 % Normal 32.0-36.0 [facility] Comment on above: Performed By: #### H EMDF ####[address] MCV (RBC) [Entitic vol] 106.5 fL High 79.0-98.0 S [facility] Comment on above: Performed By: #### H EMDF ####[address] Platelet mean volume (Bld) [Entitic vol] 6.8 fL Low 7.4-12.4 [facility] Comment on above: Result Comment: MPV is a calculated measurement using platelet volume ratio. Performed By: #### H EMDF ####[address] [place], [place] Platelets (Bld) [#/Vol] 193 10*3/uL Normal 140-440 [facility] Comment on above: Performed By: #### H EMDF ####[id number] [place], [place] RBC (Bld) [#/Vol] 3.02 10*6/uL Low 3.80-5.20 [facility] Comment on above: Performed By: #### H EMDF ####[facility] [place], [place] WBC (Bld) [#/Vol] 7.8 10*3/uL Normal 3.6-10.7 [facility] Comment on above: Performed By: #### H EMDF ####[address] [place], [place] Hepatic Functionon 2 ALP [Catalytic activity/Vol] 60 U/L Normal 38-126 [facility] Comment on above: Performed By: #### H LALA BMP3M #### [facility] [address] [place], [place] ALT [Catalytic activity/Vol] 12 U/L Normal 0-34 [facility] Comment on above: Result Comment: The ALT test is performed by an updated assay method. Please note that the reference intervals have been changed and are now sex specific. Performed By: #### H LALA BMP3M #### [facility] [address] [place], [place] AST [Catalytic activity/Vol] 40 U/L Normal 15-46 [facility] Comment on above: Performed By: #### H LALA BMP3M #### [facility] [address] [place], [place] Protein [Mass/Vol] 4.8 g/dL Low 6.3-8.2 [facility] Comment on above: Performed By: #### H LALA BMP3M #### [facility] [address] [place], [place] Bilirubin [Mass/Vol] 0.9 mg/dL Normal 0.2-1.3 [facility] Comment on above: Performed By: #### H LALA BMP3M #### [facility] [address] [place], [place] Bilirubin.indirect [Mass/Vol] 0.0 mg/dL Normal 0.0-0.3 [facility] Comment on above: Performed By: #### H LALA BMP3M #### [facility] [address] [place] [address] Albumin [Mass/Vol] 2.3 g/dL Low 3.5-5.0 [facility] Comment on above: Performed By: #### H MAGDALENA REEVES3M #### [address] [address] Hepatic Function Panelon Albumin [Mass/Vol] 2.3 g/dL Low 3.5 - 5 g/dL [facility] ALP (Bld) [Catalytic activity/Vol] 60 U/L 38 - 126 U/L [facility] ALT [Catalytic activity/Vol] 12 U/L 0 - 34 U/L [facility] AST [Catalytic activity/Vol] 40 U/L 15 - 46 U/L [facility] Bilirubin [Mass/Vol] 0.9 mg/dL 0.2 - 1 .3 mg/dL [facility] Bilirubin.indirect [Mass/Vol] 0.0 mg/dL 0 - 0.3 mg/dL [facility] Free PSA/Total PSA [Mass fraction] 4.8 g/dL Low 6.3 - 8.2 g/dL [facility] Interpretation and review of laboratory results Abnormal [facility] MRSA by PCRon 12-31-2021 Staph Aureus Sc [facility] Magnesiumon 12-31-2021 Magnesium [Mass/Vol] 1.9 mg/dL Normal 1.6-2.3 [facility] Comment on above: Performed By: #### H MAGDALENA REEVES3M #### [address] [address] Magnesium [Mass/Vol] 1.9 mg/dL 1.6 - 2 .3 mg/dL [facility] No Panel Informationon 12-31 Radiology Study observation (narrative) [facility] Work Phone: POC Glucose, Whole Bloodon 0 12-31-2021 Confirmation see below [facility] Glucose [Mass/Vol] mg/dL Low 70 - 100 mg/dL [facility] Interpretation and review of laboratory results Abnormal [facility] POCT GlucoseOrdered By: Gerda Stiles on 12-31-2021 Glucose [Mass/Vol] 129 mg/dL High 70 - 100 mg/dL [facility] Work Phone: Interpretation and review of laboratory results Abnormal [facility] Work Phone: [facility] Work Phone: POCT Glucoseon 12-31-2021 [facility] POCT GlucoseOrdered By: Cruz Weir on 12-31-2021 Glucose [Mass/Vol] 165 mg/dL High 70 - 100 mg/dL [facility] Work Phone: Interpretation and review of laboratory results Abnormal [facility] Work Phone: [facility] Work Phone: Procalcitoninon 12-31-2021 Procalcitonin 6.23 ng/mL High 0.00-0.09 [facility] Comment on above: Performed By: #### H EMDF, BMP3M #### [address] [address] Interpretation See Below [facility] Interpretation and review of laboratory results Abnormal [facility] Procalcitonin 6.23 ng/mL High 0 - 0.09 ng/mL [facility] Interpretation See Below Normal [facility] Comment on above: Result Comment: PCT <0.50 = Low risk of severe sepsis and/or septic shock. PCT >2.00 = High risk of severe sepsis and/or septic shock. Performed By: #### H EMDF, BMP3M #### [address] [address] VL LOWER EXTREMITY BILATERAL VENOUS DUPLEXon 12-31-2021 [facility] Work Phone: VL LOWER EXTREMITY BILATERAL VENOUS DUPLEXOrdered By: Alex Diop on 12-31-2021 [facility] Work Phone: VL Venous Duplex US Lower Ex t Bilateralon 12-31-2021 VL Venous Duplex US Lower Ext Bilateral Patient Name: JAIMIE MCGOVERN [facility]#: [id number] Ultrasound ACCESSION EXAM DATE/TIME PROCEDURE ORDERING PROVIDER [id number] 12/31/2021 12:39 EDT VL Venous Duplex US [id number] -[place] Lower Ext Bilateral CPT code 78655 Reason For Exam (VL Venous Duplex US Lower Ext Bilateral) edema Report [facility] [place] -------- Lower Extremity Venous Duplex Report Patient Olimpia, : 1945 Study 12/31/2021 Name: Jaimie (76yrs) Date: Patient [id number] Age: 76 Account: [id number] ID: Gender: F Loc: T223 BP: Ordering Physician: [employer] Secretary: Marylou Harper RVT Interpreting Physician: Alex Diop MD -------- Location: [facility] -------- Indications: Edema left calf. -------- Conclusions 1. There is no evidence of acute deep or superficial venous thrombosis noted in the right lower extremity. 2. There is no evidence of acute deep or superficial venous thrombosis noted in the left lower extremity. -------- History: Risk factors: Age over 65 years. Pneumatosis of intestines. -------- Study data: Complete lower extremity venous duplex evaluation. Grayscale 2D imaging, color Doppler imaging, and spectral Doppler analysis. Location: Vascular laboratory. Procedure: A vascular evaluation was performed with the patient in the supine position. Images were obtained using a Fullscreens vascular ultrasound machine. -------- Ultrasound Report Venous flow and imaging: + --+-------+ +---- -------+ +Location +Overall+Properties +Comments + + --+-------+ +---- -------+ +R CFV +Patent +Normal phasicity; + + + + +spontaneous; normal + + + + +augmentation; compressible+ + + --+-------+ +---- -------+ +R saphenofemoral +Patent +Compressible + + +junction + + + + + --+-------+ +---- -------+ +R profunda femoral +Patent + ------+ + + --+-------+ +---- -------+ +R FV - prox. +Patent +Compressible + + + --+-------+ +---- -------+ +R FV - mid +Patent +Normal phasicity; + + + + +spontaneous; normal + + + + +augmentation; compressible+ + + --+-------+ +---- -------+ +R FV - distal +Patent + ------+Color only.+ + --+-------+ +---- -------+ +R popliteal +Patent +Normal phasicity; + + + + +spontaneous; normal + + + + +augmentation; compressible+ + + --+-------+ +---- -------+ +R gastrocnemius +Patent +Compressible + + + --+-------+ +---- -------+ +R PTV +Patent +Compressible + + + --+-------+ +---- -------+ +R peroneal +Patent +Compressible + + + --+-------+ +---- -------+ +R soleal +Patent +Compressible + + + --+-------+ +---- -------+ +R GSV +Patent +Compressible + + + --+-------+ +---- -------+ +L CFV +Patent +Normal phasicity; + + + + +spontaneous; normal + + + + +augmentation; compressible+ + + --+-------+ +---- -------+ +L saphenofemoral +Patent +Compressible + + +junction + + + + + --+-------+ +---- -------+ +L profunda femoral +Patent + ------+ + + --+-------+ +---- -------+ +L FV - prox. +Patent +Compressible + + + --+-------+ +---- -------+ +L FV - mid +Patent +Normal phasicity; + + + + +spontaneous; normal + + + + +augmentation; compressible+ + + --+-------+ +---- -------+ +L FV - distal +Patent +Compressible + + + --+-------+ +---- -------+ +L popliteal +Patent +Normal phasicity; + + + + +spontaneous; normal + + + + + (more content not included)... Normal [facility] XR ABDOMEN (KUB) (SINGLE AP VIEW)on 12-31-2021 [facility] [employer] Work Phone: XR ABDOMEN (KUB) (SINGLE AP VIEW)Ordered By: Kisha Becerra on 12-31-2021 [employer] Work Phone: XR CHEST PORTABLEon 01-01-20 [facility] [employer] Work Phone: XR CHEST PORTABLEOrdered By: Alex Cerrato on 12-31-2021 [employer] Work Phone: Arterial Blood Gaseson 12-30 CO2 [Moles/Vol] 22.7 mmol/L Low 23.0-27.0 [facility] Comment on above: Performed By: #### H LALA BMP3M #### [facility] [address] [place], [place] HCO3 (Bld) [Moles/Vol] 21.7 mmol/L Normal 21.0-25.0 [facility] Comment on above: Performed By: #### H EMDLavon BMP3M #### [facility] [address] [place], [place] Hemoglobin (Bld) [Mass/Vol] 11.7 g/dL Normal ScreenOnly [facility] Comment on above: Performed By: #### H LALA BMP3M #### [facility] [address] [place] Oxygen (Bld) [Partial pressure] 62.1 mm[Hg] Low 80.0-100.0 [facility] Comment on above: Performed By: #### H LALA BMP3M #### [facility] [address] [place] Oxygen saturation in Blood 91.8 % Low 95.0-100.0 [facility] Comment on above: Performed By: #### H EMDLavon BMP3M #### [facility] [address] [place] pCO2 32.2 mm[Hg] Low 35.0-45.0 [facility] Comment on above: Performed By: #### H EMDLavon BMP3M #### [facility] [address] [place] pH 7.446 Normal 7.350-7.450 [facility] Comment on above: Performed By: #### H EMDF BMP3M #### [facility] [address] [place], [place] Std Base Excess -1.7 mmol/L Normal -3.0-3.0 [facility] Comment on above: Performed By: #### H EMDLavon, BMP3M #### [facility] [address] [place] [address] FIO2 No data Normal [facility] Comment on above: Performed By: #### H LALA BMP3M #### [facility] [address] [place] [address] Basic Metabolic Panelon 09-0 Anion gap [Moles/Vol] 5 mmol/L Normal 3-13 [facility] Comment on above: Performed By: #### H TRAEF BMP3M #### [facility] [address] [place] Calcium [Mass/Vol] 7.7 mg/dL Low 8.4-10.4 [facility] Comment on above: Performed By: #### H LALA BMP3M #### [facility] [address] [place] CO2 [Moles/Vol] 24 mmol/L Normal 22-30 [facility] Comment on above: Performed By: #### H LALA BMP3M #### [facility] [address] [place] Creatinine [Mass/Vol] 0.57 mg/dL Normal 0.52-1.25 [facility] Comment on above: Performed By: #### H EMDLavon BMP3M #### [facility] [address] [place] eGFR OTHER > 90.0 Normal >60 [facility] Comment on above: Result Comment: KDIG O guidelines provide the following GFR categories: Stage GFR(ml/min/1.73 m2) Terms G1 >=90 Normal or high G2 60-89 Mildly decreased* G3a 45-59 Mildly to moderately decreased G3b 30-44 Moderately to severely decreased G4 15-29 Severely decreased G5 <15 Kidney failure *Relative to young adult level. In the absence of evidence of kidney damage, neither GFR category G1 nor G2 fulfill the criteria for CKD. The CKD-EPI equation is validated in individuals 18 years of age and older. Currently the best equation for estimating glomerular filtration rate (GFR) from serum creatinine in children is the Bedside Velez equation. It is less accurate in patients with extremes of muscle mass, restriction of dietary protein, ingestion of creatine, extra-renal metabolism of creatinine, or treatment with medications that affect renal tubular creatinine secretion. Performed By: #### MAGDALENA BOBO3M #### [facility] [address] [place], [place] GFR/1.73 sq M.predicted among blacks MDRD (S/P/Bld) [Vol rate/Area] mL/min/{1.73_m2} Normal >60 [facility] Comment on above: Performed By: #### Micheal REEVES BMP3M #### [address] [place], [place] Glucose [Mass/Vol] 61 mg/dL Low 70-100 [facility] Comment on above: Performed By: #### Micheal REEVES BMP3M #### [address] [place], [place] Urea nitrogen [Mass/Vol] 8 mg/dL Low 9-20 [facility] Comment on above: Performed By: #### Micheal REEVES BMP3M #### [address] [place] Potassium [Moles/Vol] 2.8 mmol/L Low 3.5-5.1 [facility] Comment on above: Performed By: #### Micheal REEVES BMP3M #### [address] [place] Sodium [Moles/Vol] 136 mmol/L Normal 135-145 [facility] Comment on above: Performed By: #### Micheal REEVES BMP3M #### [address] [place] Chloride [Moles/Vol] 107 mmol/L Normal 98-107 [facility] Comment on above: Performed By: #### Micheal REEVES BMP3M #### [address] [place], [place] Basic Metabolic Panel w/ Ref emmanuel to MGon 12-30-2021 Anion gap [Moles/Vol] 5 mmol/L 3 - 13 mmol/L [facility] Calcium [Mass/Vol] 7.7 mg/dL Low 8.4 - 10. 4 mg/dL [facility] Chloride [Moles/Vol] 107 mmol/L 98 - 10 7 mmol/L [facility] CO2 [Moles/Vol] 24 mmol/L 22 - 30 mmol/L [facility] Creatinine [Mass/Vol] 0.57 mg/dL 0.52 - 1.25 mg/dL [facility] eGFR mL/min 60 - P INF mL/min [facility] EGFR IF NonAfrican Trinidadian mL/min 60 - PINF mL/min [facility] Glucose [Mass/Vol] 61 mg/dL Low 70 - 100 mg/dL [facility] [facility] Interpretation and review of laboratory results Abnormal [facility] Potassium [Moles/Vol] 2.8 mmol/L Low 3.5 - 5.1 mmol/L [facility] Sodium [Moles/Vol] 136 mmol/L 135 - 145 mmol/L [facility] Urea nitrogen (BldV) [Mass/Vol] 8 mg/dL Low 9 - 20 mg/dL [facility] Blood Gas, Arterialon 2021 Base Excess, Arterial -1.7 mmol/L -3 - 3 mmol/L [facility] Work Phone: CO2 [Moles/Vol] 22.7 mmol/L Low 23 - 27 mmol/L [facility] Work Phone: FIO2 Arterial No data [facility] Work Phone: HCO3 (Bld) [Moles/Vol] 21.7 mmol/L 21 - 25 mmol/L [facility] Work Phone: Hemoglobin (Bld) [Mass/Vol] 11.7 g/dL ScreenOnly [facility] Work Phone: Interpretation and review of laboratory results Abnormal [facility] Work Phone: Oxygen saturation in Blood 91.8 % Low 95 - 100 % [facility] Work Phone: pCO2, Arterial 32.2 mm[Hg] Low 35 - 45 mm[Hg] [facility] Work Phone: pH, Arterial 7.446 [facility] Work Phone: pO2, Arterial 62.1 mm[Hg] Low 80 - 100 mm[Hg] [facility] Work Phone: [facility] Work Phone: CBC with Auto Differentialon 12-30-2021 Absolute Baso # 0.0 10*3/uL 0 - 0.2 10*3/uL [facility] Absolute Neut # 5.5 10*3/uL 1.8 - 7 10*3/uL [facility] Basophils/100 WBC (Bld) 0.6 % 0 - 2 % S [facility] Eosinophils (Bld) [#/Vol] 0.0 10*3/uL 0 - 0.5 10*3/uL [facility] Eosinophils/100 WBC (Bld) 0.3 % Low 1 - 6 % [facility] Granulocytes/100 WBC (Bld) 80.0 % 40 - 80 % [facility] Hematocrit (Bld) [Volume fraction] 29.7 % Low 35 - 47 % [facility] Hemoglobin (Bld) [Mass/Vol] 10.2 g/dL Low 11.7 - 16 g/dL [facility] Interpretation and review of laboratory results Abnormal [facility] Lymphocytes (Bld) [#/Vol] 0.7 10*3/uL Low 1 - 4.3 10*3/uL [facility] Lymphocytes/100 WBC (Bld) 10.0 % Low 20 - 40 % [facility] MCH (RBC) [Entitic mass] 36.3 pg High 26 - 34 pg [facility] MCHC (RBC) [Mass/Vol] 34.2 % 32 - 36 % [facility] MCV (RBC) [Entitic vol] 106.2 fL High 79 - 98 fL [facility] Monocytes (Bld) [#/Vol] 0.6 10*3/uL 0 - 0.8 10*3/uL [facility] Monocytes/100 WBC (Bld) 9.1 % 2 - 10 % [facility] Platelet distribution width (Bld) [Ratio] 16.6 % High 11.5 - 14.5 % [facility] Platelet mean volume (Bld) [Entitic vol] 6.9 fL Low 7.4 - 12.4 fL [facility] Platelets (Bld) [#/Vol] 161 10*3/uL 140 - 440 10*3/uL [facility] RBC (Bld) [#/Vol] 2.80 10*6/uL Low 3.8 - 5.2 10*6/uL [facility] WBC (Bld) [#/Vol] 6.8 10*3/uL 3.6 - 10.7 10*3/uL [facility] CR Abdomen APon 12-30-2021 CR Abdomen AP Patient Name: JAIMIE MCGOVERN Diagnostic Radiology ACCESSION EXAM DATE/TIME PROCEDURE ORDERING PROVIDER [id number] 12/30/2021 07:53 EDT CR Abdomen AP [id number] -[place] CPT code 60007 Reason For Exam (CR Abdomen AP) assess for cecal pneumatosis Report Examination: Abdomen: AP view. Comparison: 12/29/2021. Reason For Study: Assess for cecal pneumatosis. Findings/Interpretati ons: 1. Limited view of the right lower quadrant shows curvilinear lucencies cephalad to the right greater trochanter which may represent pneumatosis coli. Clarification with CT of the abdomen would be more beneficial. 2. Small amount residual colorectal contrast and solid content. 3. Tubular lucencies overlying the abdomen suggest distal small bowel obstruction. Further evaluation with CT scan of the abdomen and pelvis would be of value. Report Dictated on Final Dictated: 12/30/2021 11:07 am Dictating Physician: MD MAHAJAN B NELSON Signed Date and Time: 12/30/2021 11:24 am Signed by: MD MAHAJAN B NELSON Transcribed Date and Time: 12/30/2021 11:07 Normal [facility] CR Chest Portableon 12-31-19 CR Chest Portable Patient Name: JAIMIE MCGOVERN Diagnostic Radiology ACCESSION EXAM DATE/TIME PROCEDURE ORDERING PROVIDER [id number] 12/30/2021 06:05 EDT CR Chest Portable MD MACIEL ANDREW CPT code 92594 Reason For Exam (CR Chest Portable) patient with desaturation and tacypnea Report Indication: 76-year-old; inpatient; desaturation and tachypnea. Views: Chest portable Comparison: 12/29/2021 at 5:34 AM Findings: Right internal jugular approach central venous catheter is present with tip overlying the right atria. Cardiac monitoring wires and leads are present. The patient is rotated. The cardiomediastinal silhouette is enlarged. The osseous structures appear stable. A layering right pleural effusion is present which appears decreased compared to prior day. Small left pleural effusion. There is thickening of the interstitium.. IMPRESSION: Interval decrease in size of a RIGHT pleural effusion. Bilateral pleural effusions, right greater than left. Pulmonary vascular congestion.. Report Dictated on Final Dictated: 12/30/2021 7:09 am Dictating Physician: MD CARLIN JENNIFER R Signed Date and Time: 12/30/2021 7:12 am Signed by: MD CARLIN JENNIFER R Transcribed Date and Time: 12/30/2021 7:09 [facility] CULTURE BLOOD (Two)on 2021 Microscopic examination of blood, culture CULTURE BLOOD (Two) --> Status: F Coagulase negative Staphylococcus species DETECTED. Presumptive identification performed using [employer]NetworksArray PCR methodology; confirmatory identification to follow. _ The [employer]Array BCID2 PCR Panel can detect the following targets: E. faecalis, E. faecium, Staphylococcus spp., S. aureus, S. epidermidis, S. lugdunensis, Streptococcus spp., S. pyogenes (Group A), S. agalactiae (Group B), S. pneumoniae, A. baumannii complex, B. fragilis, H. influenzae, N. meningitidis (encapsulated), P. aeruginosa, S. maltophilia, Enterobacterales, E. cloacae complex, E. coli, K. aerogenes, K. oxytoca, K. pneumoniae, Proteus spp., Salmonella spp., S. marcescens, C. albicans, C. auris, C. glabrata, C. krusei, C. parapsilosis, C. tropicalis, C. neoformans/gattii, and antimicrobial resistance genes: mecA/C, Pedro/B, CTX-M, IMP, KPC, NDM, OXA-48-like, VIM, and mcr-1. Presumptive identification performed using [employer] FilmArray PCR methodology; confirmatory identification to follow. _ The [employer]ViNetworksArray BCID2 PCR Panel can detect the following targets: E. faecalis, E. faecium, Staphylococcus spp., S. aureus, S. epidermidis, S. lugdunensis, Streptococcus spp., S. pyogenes (Group A), S. agalactiae (Group B), S. pneumoniae, A. baumannii complex, B. fragilis, H. influenzae, N. meningitidis (encapsulated), P. aeruginosa, S. maltophilia, Enterobacterales, E. cloacae complex, E. coli, K. aerogenes, K. oxytoca, K. pneumoniae, Proteus spp., Salmonella spp., S. marcescens, C. albicans, C. auris, C. glabrata, C. krusei, C. parapsilosis, C. tropicalis, C. neoformans/gattii, and antimicrobial resistance genes: mecA/C, Pedro/B, CTX-M, IMP, KPC, NDM, OXA-48-like, VIM, and mcr-1. 1 Organism (Coagulase-negative) Staphylococcus hominis Isolated: Contamination likely unless additional blood culture sets are found to be positive with the same organism. Normal [facility] Comment on above: Performed By: #### C /BLT ####[facility] [employer] [place] [address] Culture, Blood 2on 2 Blood Culture, Routine Staphylococcus hominis Abnormal [facility] Work Phone: Interpretation and review of laboratory results Abnormal [facility] Work Phone: [facility] Work Phone: EKG 12 Leadon 12-30-2021 [facility] Work Phone: EKG 12 LeadOrdered By: Tiago Moses on 12-30-2021 [facility] Work Phone: Glucose,Bedsideon 12-30-2021 Glucose [Mass/Vol] 141 mg/dL High 70-100 [facility] Comment on above: Result Comment: Test performed by glucose meter. Results may be 10%-15% lower than serum/plasma values. (CLIA ID [id number]) Performed By: #### B GLU ####[facility] [place] [address] Glucose [Mass/Vol] 163 mg/dL High 70-100 [facility] Comment on above: Result Comment: Test performed by glucose meter. Results may be 10%-15% lower than serum/plasma values. (CLIA ID [id number]) Performed By: #### B MP3M, HEMDF, MG3, PHOS3, PCAL #### [facility] [address] [place], [place] Glucose [Mass/Vol] 210 mg/dL High 70-100 [facility] Comment on above: Result Comment: Test performed by glucose meter. Results may be 10%-15% lower than serum/plasma values. (CLIA ID [id number]) Performed By: #### B MP3M, HEMDF, MG3, PHOS3, PCAL #### [facility] [address] [place], [place] Glucose [Mass/Vol] 63 mg/dL Low 70-100 [facility] Comment on above: Result Comment: Test performed by glucose meter. Results may be 10%-15% lower than serum/plasma values. (CLIA ID [id number]) Performed By: #### B MP3M, HEMDF, MG3, PHOS3, PCAL #### [facility] [employer] [facility] [address] [place], [place] Glucose [Mass/Vol] 70 mg/dL Normal 70-100 [facility] Comment on above: Result Comment: Test performed by glucose meter. Results may be 10%-15% lower than serum/plasma values. (CLIA ID [id number]) Performed By: #### H EMDLavon BMP3M #### [facility] [employer] [facility] [address] [place], [place] Hemogram w/ Autodiffon 12-30 Abs Baso Cnt 0.0 10*3/uL Normal 0.0-0.2 [facility] Comment on above: Performed By: #### H EMDF, BMP3M #### [facility] [address] [place], [place] Abs Neutrophile Cnt 5.5 10*3/uL Normal 1.8-7.0 [facility] Comment on above: Performed By: #### H EMDLavon BMP3M #### [address] Basophils/100 WBC (Bld) 0.6 % Normal 0.0-2.0 S [facility] Comment on above: Performed By: #### H LALA BMP3M #### [address] [address] [place], [place] Eosinophils (Bld) [#/Vol] 0.0 10*3/uL Normal 0.0-0.5 [facility] Comment on above: Performed By: #### H LALA BMP3M #### [address] Eosinophils/100 WBC (Bld) 0.3 % Low 1.0-6.0 [facility] Comment on above: Performed By: #### H LALA BMP3M #### [address] Erythrocyte distribution width (RBC) [Ratio] 16.6 % High 11.5-14.5 [facility] Comment on above: Performed By: #### H LALA BMP3M #### [address] Granulocytes/100 WBC (Bld) 80.0 % Normal 40.0-80.0 [facility] Comment on above: Performed By: #### H EMDLavon BMP3M #### [address] Hematocrit (Bld) [Volume fraction] 29.7 % Low 35.0-47.0 [facility] Comment on above: Performed By: #### H LALA BMP3M #### [address] Hemoglobin (Bld) [Mass/Vol] 10.2 g/dL Low 11.7-16.0 [facility] Comment on above: Performed By: #### H LALA BMP3M #### [address] Lymphocytes (Bld) [#/Vol] 0.7 10*3/uL Low 1.0-4.3 [facility] Comment on above: Performed By: #### H MAGDALENA REEVES3M #### [facility] [address] [place], [place] Lymphocytes/100 WBC (Bld) 10.0 % Low 20.0-40.0 [facility] Comment on above: Performed By: #### H LALA BMP3M #### [facility] [address] [place], [place] MCH (RBC) [Entitic mass] 36.3 pg High 26.0-34.0 [facility] Comment on above: Performed By: #### H LALA BMP3M #### [address] [address] [place], [place] MCHC 34.2 % Normal 32.0-36.0 [facility] Comment on above: Performed By: #### H LALA BMP3M #### [address] [address] [address] [place], [place] MCV (RBC) [Entitic vol] 106.2 fL High 79.0-98.0 S [facility] Comment on above: Performed By: #### H LALA BMP3M #### [address] [address] [place], [place] Monocytes (Bld) [#/Vol] 0.6 10*3/uL Normal 0.0-0.8 [facility] Comment on above: Performed By: #### H LALA BMP3M #### [address] [address] [address] [place], [place] Monocytes/100 WBC (Bld) 9.1 % Normal 2.0-10.0 S [facility] Comment on above: Performed By: #### H LALA BMP3M #### [address] [address] [place], [place] Platelet mean volume (Bld) [Entitic vol] 6.9 fL Low 7.4-12.4 [facility] Comment on above: Result Comment: MPV is a calculated measurement using platelet volume ratio. Performed By: #### H LALA BMP3M #### [facility] [address] [place], [place] Platelets (Bld) [#/Vol] 161 10*3/uL Normal 140-440 [facility] Comment on above: Performed By: #### H LALA BMP3M #### [facility] [address] [place], [place] RBC (Bld) [#/Vol] 2.80 10*6/uL Low 3.80-5.20 [facility] Comment on above: Performed By: #### H LALA BMP3M #### [address] [address] [address] [place], [place] WBC (Bld) [#/Vol] 6.8 10*3/uL Normal 3.6-10.7 [facility] Comment on above: Performed By: #### H LALA BMP3M #### [address] [address] [address] [place], [place] Hepatic/Renal Panelon 2021 ALP [Catalytic activity/Vol] 52 U/L Normal 38-126 [facility] Comment on above: Performed By: #### H LALA BMP3M #### [address] [address] [address], [place] ALT [Catalytic activity/Vol] 11 U/L Normal 0-34 [facility] Comment on above: Result Comment: The ALT test is performed by an updated assay method. Please note that the reference intervals have been changed and are now sex specific. Performed By: #### H LALA BMP3M #### [facility] [address] [place], [place] AST [Catalytic activity/Vol] 42 U/L Normal 15-46 [facility] Comment on above: Performed By: #### H LALA BMP3M #### [facility] [address] [place], [place] Calcium [Mass/Vol] 7.7 mg/dL Low 8.4-10.4 [facility] Comment on above: Performed By: #### H EMDF, BMP3M #### [facility] [address] [place] [address] Glucose [Mass/Vol] 70 mg/dL Normal 70-100 [facility] Comment on above: Performed By: #### H EMDF, BMP3M #### [facility] [address] [place] [address] Phosphate [Mass/Vol] 3.6 mg/dL Normal 2.5-4.5 [facility] Comment on above: Performed By: #### H EMDF, BMP3M #### [facility] [address] [place] [address] Protein [Mass/Vol] 4.8 g/dL Low 6.3-8.2 [facility] Comment on above: Performed By: #### H EMDF, BMP3M #### [facility] [address] [place] [address] Urea nitrogen [Mass/Vol] 8 mg/dL Low 9-20 [facility] Comment on above: Performed By: #### H EMDF, BMP3M #### [facility] [address] [place] [address] Anion gap [Moles/Vol] 6 mmol/L Normal 3-13 [facility] Comment on above: Performed By: #### H EMDF, BMP3M #### [facility] [address] [place] [address] Bilirubin [Mass/Vol] 1.1 mg/dL Normal 0.2-1.3 [facility] Comment on above: Performed By: #### H EMDF, BMP3M #### [facility] [address] [place] [address] Bilirubin.indirect [Mass/Vol] 0.0 mg/dL Normal 0.0-0.3 [facility] Comment on above: Performed By: #### H EMDF, BMP3M #### [facility] [address] [place] [address] CO2 [Moles/Vol] 23 mmol/L Normal 22-30 [facility] Comment on above: Performed By: #### H EMDF, BMP3M #### [facility] [address] [place], [place] Creatinine [Mass/Vol] 0.53 mg/dL Normal 0.52-1.25 [facility] Comment on above: Performed By: #### H LALA BMP3M #### [facility] [address] [place], [place] eGFR OTHER > 90.0 Normal >60 [facility] Comment on above: Result Comment: KDIG O guidelines provide the following GFR categories: Stage GFR(ml/min/1.73 m2) Terms G1 >=90 Normal or high G2 60-89 Mildly decreased* G3a 45-59 Mildly to moderately decreased G3b 30-44 Moderately to severely decreased G4 15-29 Severely decreased G5 <15 Kidney failure *Relative to young adult level. In the absence of evidence of kidney damage, neither GFR category G1 nor G2 fulfill the criteria for CKD. The CKD-EPI equation is validated in individuals 18 years of age and older. Currently the best equation for estimating glomerular filtration rate (GFR) from serum creatinine in children is the Bedside Velez equation. It is less accurate in patients with extremes of muscle mass, restriction of dietary protein, ingestion of creatine, extra-renal metabolism of creatinine, or treatment with medications that affect renal tubular creatinine secretion. Performed By: #### H MAGDALENA REEVES3M #### [address] GFR/1.73 sq M.predicted among blacks MDRD (S/P/Bld) [Vol rate/Area] mL/min/{1.73_m2} Normal >60 [facility] Comment on above: Performed By: #### H LALA BMP3M #### [facility] [address] [place], [place] Potassium [Moles/Vol] 2.7 mmol/L Low 3.5-5.1 [facility] Comment on above: Performed By: #### H LALA BMP3M #### [facility] [address] [place], [place] Sodium [Moles/Vol] 136 mmol/L Normal 135-145 [facility] Comment on above: Performed By: #### H LALA, BMP3M #### [facility] [address] [place] [address] Albumin [Mass/Vol] 2.3 g/dL Low 3.5-5.0 [facility] Comment on above: Performed By: #### H EMDF, BMP3M #### [facility] [address] [place] [address] Chloride [Moles/Vol] 108 mmol/L High 98-107 [facility] Comment on above: Performed By: #### H EMDF, BMP3M #### [facility] [address] [place] [address] Magnesiumon 12-30-2021 Magnesium [Mass/Vol] 1.9 mg/dL Normal 1.6-2.3 [facility] Comment on above: Performed By: #### H EMDF BMP3M #### [facility] [address] [place] [address] Magnesium [Mass/Vol] 1.9 mg/dL 1.6 - 2 .3 mg/dL [facility] No Panel Informationon 12-30 Interpretation and review of laboratory results Abnormal [facility] Work Phone: [facility] Work Phone: Blood Culture, Routine [employer] [facility] Work Phone: Radiology Study observation (narrative) [facility] Work Phone: POCT GlucoseOrdered By: Rock Corbett on 12-30-2021 Glucose [Mass/Vol] 141 mg/dL High 70 - 100 mg/dL [facility] Work Phone: Interpretation and review of laboratory results Abnormal [facility] Work Phone: [facility] Work Phone: POCT Glucoseon 12-30-2021 [facility] Glucose [Mass/Vol] 210 mg/dL High 70 - 100 mg/dL [facility] Work Phone: Glucose [Mass/Vol] 163 mg/dL High 70 - 100 mg/dL [facility] Work Phone: [facility] POCT GlucoseOrdered By: Laura Hilliard on 12-30-2021 Glucose [Mass/Vol] 63 mg/dL Low 70 - 100 mg/dL [facility] Work Phone: Interpretation and review of laboratory results Abnormal [facility] Work Phone: [facility] Work Phone: POCT GlucoseOrdered By: Chidi Brewer on 12-30-2021 Glucose [Mass/Vol] 70 mg/dL 70 - 100 mg/dL [facility] Renal & Liver Profileon Albumin [Mass/Vol] 2.3 g/dL Low 3.5 - 5 g/dL [facility] ALP (Bld) [Catalytic activity/Vol] 52 U/L 38 - 126 U/L [facility] ALT [Catalytic activity/Vol] 11 U/L 0 - 34 U/L [facility] Anion gap [Moles/Vol] 6 mmol/L 3 - 13 mmol/L [facility] AST [Catalytic activity/Vol] 42 U/L 15 - 46 U/L [facility] Bilirubin [Mass/Vol] 1.1 mg/dL 0.2 - 1 .3 mg/dL [facility] Bilirubin.indirect [Mass/Vol] 0.0 mg/dL 0 - 0.3 mg/dL [facility] Calcium [Mass/Vol] 7.7 mg/dL Low 8.4 - 10. 4 mg/dL [facility] Chloride [Moles/Vol] 108 mmol/L High 98 - 10 7 mmol/L [facility] CO2 [Moles/Vol] 23 mmol/L 22 - 30 mmol/L [facility] Creatinine [Mass/Vol] 0.53 mg/dL 0.52 - 1.25 mg/dL [facility] eGFR mL/min 60 - P INF mL/min [facility] EGFR IF NonAfrican Trinidadian mL/min 60 - PINF mL/min [facility] Free PSA/Total PSA [Mass fraction] 4.8 g/dL Low 6.3 - 8.2 g/dL [facility] Glucose [Mass/Vol] 70 mg/dL 70 - 100 mg/dL [facility] Interpretation and review of laboratory results Abnormal [facility] Phosphate [Mass/Vol] 3.6 mg/dL 2.5 - 4 .5 mg/dL [facility] Potassium [Moles/Vol] 2.7 mmol/L Low 3.5 - 5.1 mmol/L [facility] Sodium [Moles/Vol] 136 mmol/L 135 - 145 mmol/L [facility] Urea nitrogen (BldV) [Mass/Vol] 8 mg/dL Low 9 - 20 mg/dL [facility] Troponinon 12-30-2021 Interpretation and review of laboratory results Abnormal [facility] Work Phone: Troponin I.cardiac [Mass/Vol] 0.124 ng/mL High 0 - 0.034 ng/mL [facility] Work Phone: [facility] Work Phone: Troponin Ion 12-30-2021 Troponin I.cardiac [Mass/Vol] 0.124 ng/mL High 0.000-0.034 [facility] Comment on above: Result Comment: . Performed By: #### B MP3M, HEMDF, MG3, PHOS3, PCAL #### [facility] [employer] [address] [place] [address] US GUIDE THORACENTESISon [facility] Work Phone: US GUIDE THORACENTESISOrdere d By: Quinn Pastor on 12-30-2021 [facility] Work Phone: Vitamin B12on 12-30-2021 Cobalamin (Vitamin B12) [Mass/Vol] 459 pg/mL Normal 239-931 [facility] Comment on above: Performed By: #### H EMDF, BMP3M #### [facility] [address] [place] [address] Cobalamin (Vitamin B12) [Mass/Vol] 459 pg/mL 239 - 931 pg/mL [facility] XR ABDOMEN (KUB) (SINGLE AP VIEW)on 12-30-2021 [facility] Work Phone: XR ABDOMEN (KUB) (SINGLE AP VIEW)Ordered By: Faheem Mahajan on 12-30-2021 [facility] Work Phone: XR CHEST PORTABLEon 12-31-19 [facility] Work Phone: XR CHEST PORTABLEOrdered By: Darlene Carlin on 12-30-2021 [facility] Work Phone: Ammoniaon 12-29-2021 Ammonia (P) [Mass/Vol] ug/dL Normal 9-30 [facility] Comment on above: Performed By: #### B MP3M, HEMDF, MG3, PHOS3, PCAL #### [address] [address] [place] [address] Ammonia (P) [Mass/Vol] ug/dL 9 - 30 umol/L [facility] Work Phone: [facility] Work Phone: Arterial Respiratory Panel - Rapid Responseon 12-29-2021 Base Excess -2.3 mmol/L Normal -3.0-3.0 [facility] Comment on above: Performed By: #### B MP3M, HEMDF, MG3, PHOS3, PCAL #### [address] [address] [place] [address] CO2 [Moles/Vol] 21.9 mmol/L Low 23.0-27.[address] [facility] Comment on above: Performed By: #### B MP3M, HEMDF, MG3, PHOS3, PCAL #### [address] [address] [place] [address] HCO3 (Bld) [Moles/Vol] 20.9 mmol/L Low 21.0-25.0 S [facility] Comment on above: Performed By: #### B MP3M, HEMDF, MG3, PHOS3, PCAL #### [address] [address] Hematocrit, Whole Blood 40 % Normal 37-52 S [facility] Comment on above: Result Comment: Perf ormed by CLIA ID: [id number] [place], [place] Performed By: #### B MP3M, HEMDF, MG3, PHOS3, PCAL #### [address] [address] [place], [place] Oxygen (Bld) [Partial pressure] 64.8 mm[Hg] Low 80.0-100.0 [facility] Comment on above: Performed By: #### B MP3M, HEMDF, MG3, PHOS3, PCAL #### [address] [address] [place], [place] Oxygen saturation in Blood 93.3 % Low 95.0-100.0 [facility] Comment on above: Performed By: #### B MP3M, HEMDF, MG3, PHOS3, PCAL #### [address] pCO2 31.1 mm[Hg] Low 35.0-45.0 [facility] Comment on above: Performed By: #### B MP3M, HEMDF, MG3, PHOS3, PCAL #### [address] pH 7.436 Normal 7.350-7.450 [facility] Comment on above: Performed By: #### B MP3M, HEMDF, MG3, PHOS3, PCAL #### [address] Potassium [Moles/Vol] 3.4 mmol/L Normal 3.4-5.1 [facility] Comment on above: Performed By: #### B MP3M, HEMDF, MG3, PHOS3, PCAL #### [address] Sodium [Moles/Vol] 135 mmol/L Normal 133-145 [facility] Comment on above: Performed By: #### B MP3M, HEMDF, MG3, PHOS3, PCAL #### [address] Basic Metabolic Panelon 09-0 -2021 Anion gap [Moles/Vol] 6 mmol/L Normal 3-13 [facility] Comment on above: Performed By: #### B MP3M, HEMDF, MG3, PHOS3, PCAL #### [address] [address] [place] Calcium [Mass/Vol] 8.1 mg/dL Low 8.4-10.4 [facility] Comment on above: Performed By: #### B MP3M, HEMDF, MG3, PHOS3, PCAL #### [address] [address] [place] CO2 [Moles/Vol] 23 mmol/L Normal 22-30 [facility] Comment on above: Performed By: #### B MP3M, HEMDF, MG3, PHOS3, PCAL #### [address] [address] [place] Glucose [Mass/Vol] 104 mg/dL High 70-100 [facility] Comment on above: Performed By: #### B MP3M, HEMDF, MG3, PHOS3, PCAL #### [address] [address] [place] Urea nitrogen [Mass/Vol] 7 mg/dL Low 9-20 [facility] Comment on above: Performed By: #### B MP3M, HEMDF, MG3, PHOS3, PCAL #### [address] [address] [place] Creatinine [Mass/Vol] 0.50 mg/dL Low 0.52-1.25 [facility] Comment on above: Performed By: #### B MP3M, HEMDF, MG3, PHOS3, PCAL #### [address] [address] [place] eGFR OTHER > 90.0 Normal >60 [facility] Comment on above: Result Comment: KDIG O guidelines provide the following GFR categories: Stage GFR(ml/min/1.73 m2) Terms G1 >=90 Normal or high G2 60-89 Mildly decreased* G3a 45-59 Mildly to moderately decreased G3b 30-44 Moderately to severely decreased G4 15-29 Severely decreased G5 <15 Kidney failure *Relative to young adult level. In the absence of evidence of kidney damage, neither GFR category G1 nor G2 fulfill the criteria for CKD. The CKD-EPI equation is validated in individuals 18 years of age and older. Currently the best equation for estimating glomerular filtration rate (GFR) from serum creatinine in children is the Bedside Velez equation. It is less accurate in patients with extremes of muscle mass, restriction of dietary protein, ingestion of creatine, extra-renal metabolism of creatinine, or treatment with medications that affect renal tubular creatinine secretion. Performed By: #### B MP3M, HEMDF, MG3, PHOS3, PCAL #### [address] [address] [place], [place] GFR/1.73 sq M.predicted among blacks MDRD (S/P/Bld) [Vol rate/Area] mL/min/{1.73_m2} Normal >60 [facility] Comment on above: Performed By: #### B MP3M, HEMDF, MG3, PHOS3, PCAL #### [address] [address] [place] Potassium [Moles/Vol] 3.4 mmol/L Low 3.5-5.1 [facility] Comment on above: Performed By: #### B MP3M, HEMDF, MG3, PHOS3, PCAL #### [address] [address] [place] Sodium [Moles/Vol] 136 mmol/L Normal 135-145 [facility] Comment on above: Performed By: #### B MP3M, HEMDF, MG3, PHOS3, PCAL #### [address] Chloride [Moles/Vol] 107 mmol/L Normal 98-107 [facility] Comment on above: Performed By: #### B MP3M, HEMDF, MG3, PHOS3, PCAL #### [address] Basic Metabolic Panel w/ Ref emmanuel to MGon 12-29-2021 Anion gap [Moles/Vol] 6 mmol/L 3 - 13 mmol/L [facility] Work Phone: Calcium [Mass/Vol] 8.1 mg/dL Low 8.4 - 10. 4 mg/dL [facility] Work Phone: Chloride [Moles/Vol] 107 mmol/L 98 - 10 7 mmol/L [employer] Work Phone: CO2 [Moles/Vol] 23 mmol/L 22 - 30 mmol/L [employer] Work Phone: Creatinine [Mass/Vol] 0.5 mg/dL Low 0.52 - 1.25 mg/dL [employer] Work Phone: eGFR mL/min 60 - P INF mL/min [facility] Work Phone: EGFR IF NonAfrican Trinidadian mL/min 60 - PINF mL/min [employer] Work Phone: Glucose [Mass/Vol] 104 mg/dL High 70 - 100 mg/dL [employer] Work Phone: Potassium [Moles/Vol] 3.4 mmol/L Low 3.5 - 5.1 mmol/L [facility] Work Phone: [phone] Sodium [Moles/Vol] 136 mmol/L 135 - 145 mmol/L [facility] Work Phone: [phone] Urea nitrogen (BldV) [Mass/Vol] 7 mg/dL Low 9 - 20 mg/dL [facility] Work Phone: [phone] Body Fluid Cell Count with D ifferentialon 12-29-2021 Fluid Type Thoracentesis [facility] Nucl Cell, Fluid 6336 {cells}/uL [facility] RED BLOOD CELLS, BODY FLUID 62407 {RBC}/uL [facility] CBC with Auto Differentialon 12-29-2021 Absolute Baso # 0.0 10*3/uL 0 - 0.2 10*3/uL [facility] Absolute Neut # 9.8 10*3/uL High 1.8 - 7 10*3/uL [facility] Basophils/100 WBC (Bld) 0.4 % 0 - 2 % [facility] Eosinophils (Bld) [#/Vol] 0.0 10*3/uL 0 - 0.5 10*3/uL [facility] Eosinophils/100 WBC (Bld) 0.1 % Low 1 - 6 % [facility] Granulocytes/100 WBC (Bld) 92.0 % High 40 - 80 % [facility] Hematocrit (Bld) [Volume fraction] 35.3 % 35 - 47 % [facility] Hemoglobin (Bld) [Mass/Vol] 12.1 g/dL 11.7 - 16 g/dL [facility] Interpretation and review of laboratory results Abnormal [facility] Lymphocytes (Bld) [#/Vol] 0.4 10*3/uL Low 1 - 4.3 10*3/uL [facility] Lymphocytes/100 WBC (Bld) 3.5 % Low 20 - 40 % [facility] MCH (RBC) [Entitic mass] 36.6 pg High 26 - 34 pg [facility] MCHC (RBC) [Mass/Vol] 34.2 % 32 - 36 % [facility] MCV (RBC) [Entitic vol] 106.9 fL High 79 - 98 fL [facility] Monocytes (Bld) [#/Vol] 0.4 10*3/uL 0 - 0.8 10*3/uL [facility] Monocytes/100 WBC (Bld) 4.0 % 2 - 10 % [facility] Platelet distribution width (Bld) [Ratio] 16.8 % High 11.5 - 14.5 % [facility] Platelet mean volume (Bld) [Entitic vol] 6.7 fL Low 7.4 - 12.4 fL [facility] Platelets (Bld) [#/Vol] 178 10*3/uL 140 - 440 10*3/uL [facility] RBC (Bld) [#/Vol] 3.30 10*6/uL Low 3.8 - 5.2 10*6/uL [facility] WBC (Bld) [#/Vol] 10.6 10*3/uL 3.6 - 10.7 10*3/uL [facility] CR Abdomen APon 12-29-2021 CR Abdomen AP Patient Name: JAIMIE MCGOVERN Diagnostic Radiology ACCESSION EXAM DATE/TIME PROCEDURE ORDERING PROVIDER [id number] 12/29/2021 10:58 EDT CR Abdomen AP [id number] -NATHALIE, ANEIL CPT code 18139 Reason For Exam (CR Abdomen AP) distention, increase WOB Report CLINICAL INFORMATION: Abdominal pain. Distention. Supine KUB is provided. FINDINGS: Air, stool, and previously administered oral contrast are seen in nondistended loops of: to the level of the rectum. The small bowel is not dilated. IMPRESSION: 1. Nonobstructive bowel gas pattern. Report Dictated on Final Dictated: 12/29/2021 11:13 am Dictating Physician: MD LOYOLA JEFFREY Signed Date and Time: 12/29/2021 11:14 am Signed by: MD LOYOLA JEFFREY Transcribed Date and Time: 12/29/2021 11:13 Normal [facility] CR Chest Portableon 12-30-19 CR Chest Portable Patient Name: JAIMIE MCGOVERN Diagnostic Radiology ACCESSION EXAM DATE/TIME PROCEDURE ORDERING PROVIDER [id number] 12/29/2021 05:47 EDT CR Chest Portable Jb -MONIKA ARAUJO CPT code 25692 Reason For Exam (CR Chest Portable) pneumomediastinum Report CLINICAL INFORMATION: Respiratory abnormality. History of pneumomediastinum. CHEST X-RAY, PORTABLE, 0534 hours: An AP portable view is compared to the prior examination of earlier the same day at 0044 hours. There is no change in the position of the right internal jugular central venous catheter. A moderate right pleural effusion appears to be slightly increased but differences may be positional. There is mild to moderate pulmonary vascular congestion. No pneumomediastinum is visualized. No other changes. Report Dictated on Final Dictated: 12/29/2021 8:11 am Dictating Physician: MD MCKENNA HARLAN Signed Date and Time: 12/29/2021 8:20 am Signed by: MD MCKENNA HARLAN Transcribed Date and Time: 12/29/2021 8:11 Normal [facility] CR Chest Portable Patient Name: JAIMIE MCGOVERN Diagnostic Radiology ACCESSION EXAM DATE/TIME PROCEDURE ORDERING PROVIDER [id number] 12/29/2021 00:49 EDT CR Chest Portable MD MACIEL ANDREW CPT code 63255 Reason For Exam (CR Chest Portable) patient with desaturation and tacypnea Report Chest one view HISTORY: Desaturation Right IJ central line. Moderate right pleural effusion. Adjacent right lower lung infiltrate. Cardiomegaly. Report Dictated on Final Dictated: 12/29/2021 0:47 am Dictating Physician: MD LIAO MALAY Signed Date and Time: 12/29/2021 0:47 am Signed by: MD LIAO MALAY Transcribed Date and Time: 12/29/2021 0:47 Normal [facility] CULTURE AND STAIN - FLUIDon 12-29-2021 CULTURE AND STAIN - FLUID CULTURE & STAIN - FLUID --> Status: F No growth at 5 days. STAIN GRAM --> Status: F Many polymorphonuclear cells/lpf. No organisms seen. No organisms seen. Normal [facility] Comment on above: Performed By: #### B MP3M, HEMDF, MG3, PHOS3, PCAL #### [facility] [address], [place] Cell Count,Body Fluidon Nucleated Cells 6336 {cells}/uL Normal [facility] Comment on above: Order Comment: rt. t hora uu=423 ml Performed By: #### B GLU #### [facility] [address], [place] [address] {RBC}/uL Normal [facility] Comment on above: Order Comment: rt. t hora kr=506 ml Performed By: #### B GLU #### [facility] [address] Fluid Type Thoracentesis Normal [facility] Comment on above: Order Comment: rt. t hora ev=540 ml Performed By: #### B GLU #### [facility] [address] Differential, Body Fluidon 0 12-29-2021 Differential Count 100 [facility] Monocytes/100 WBC (Bld) 1 % [facility] Neutrophils/100 WBC (Bld) 99 % [facility] Differential,Body Fluidson 0 12-29-2021 Monocytes/100 WBC (Bld) 1 % Normal [facility] Comment on above: Order Comment: rt. t hora tp=636 ml Performed By: #### B MP3M, HEMDF, MG3, PHOS3, PCAL #### [facility] [address] [place] [address] Neutrophils/100 WBC (Bld) 99 % Normal [facility] Comment on above: Order Comment: rt. t hora jk=054 ml Performed By: #### B MP3M, HEMDF, MG3, PHOS3, PCAL #### [facility] [address] [place] [address] Cells Counted for Diff 100 Normal [facility] Comment on above: Order Comment: rt. t hora ow=157 ml Performed By: #### B MP3M, HEMDF, MG3, PHOS3, PCAL #### [facility] [address] [place] [address] EKG 12 Leadon 12-29-2021 [facility] Work Phone: [facility] Work Phone: [facility] Work Phone: EKG 12 LeadOrdered By: Phoebe Mccracken on 12-29-2021 [facility] Work Phone: Hemogram w/ Autodiffon 12-29 Abs Baso Cnt 0.0 10*3/uL Normal 0.0-0.2 [facility] Comment on above: Performed By: #### B MP3M, HEMDF, MG3, PHOS3, PCAL #### [facility] [address] [place] [address] Abs Neutrophile Cnt 9.8 10*3/uL High 1.8-7.0 [facility] Comment on above: Performed By: #### B MP3M, HEMDF, MG3, PHOS3, PCAL #### [facility] [address] [place] [address] Basophils/100 WBC (Bld) 0.4 % Normal 0.0-2.0 [facility] Comment on above: Performed By: #### B MP3M, HEMDF, MG3, PHOS3, PCAL #### [address] [place] [address] [place] Eosinophils (Bld) [#/Vol] 0.0 10*3/uL Normal 0.0-0.5 [facility] Comment on above: Performed By: #### B MP3M, HEMDF, MG3, PHOS3, PCAL #### [address] [place] [address] [place] Eosinophils/100 WBC (Bld) 0.1 % Low 1.0-6.0 [facility] Comment on above: Performed By: #### B MP3M, HEMDF, MG3, PHOS3, PCAL #### [address] Erythrocyte distribution width (RBC) [Ratio] 16.8 % High 11.5-14.5 [facility] Comment on above: Performed By: #### B MP3M, HEMDF, MG3, PHOS3, PCAL #### [address] Granulocytes/100 WBC (Bld) 92.0 % High 40.0-80.0 [facility] Comment on above: Performed By: #### B MP3M, HEMDF, MG3, PHOS3, PCAL #### [address] [address] [place], [place] Hematocrit (Bld) [Volume fraction] 35.3 % Normal 35.0-47.0 [facility] Comment on above: Performed By: #### B MP3M, HEMDF, MG3, PHOS3, PCAL #### [address] [address] [place] Hemoglobin (Bld) [Mass/Vol] 12.1 g/dL Normal 11.7-16.0 [facility] Comment on above: Performed By: #### B MP3M, HEMDF, MG3, PHOS3, PCAL #### [address] [address] [place] Lymphocytes (Bld) [#/Vol] 0.4 10*3/uL Low 1.0-4.3 [facility] Comment on above: Performed By: #### B MP3M, HEMDF, MG3, PHOS3, PCAL #### [address] [address] [place] Lymphocytes/100 WBC (Bld) 3.5 % Low 20.0-40.0 [facility] Comment on above: Performed By: #### B MP3M, HEMDF, MG3, PHOS3, PCAL #### [address] [address] [place] MCH (RBC) [Entitic mass] 36.6 pg High 26.0-34.0 [facility] Comment on above: Performed By: #### B MP3M, HEMDF, MG3, PHOS3, PCAL #### [address] [address] [place] MCHC 34.2 % Normal 32.0-36.0 [facility] Comment on above: Performed By: #### B MP3M, HEMDF, MG3, PHOS3, PCAL #### [address] MCV (RBC) [Entitic vol] 106.9 fL High 79.0-98.0 S [facility] Comment on above: Performed By: #### B MP3M, HEMDF, MG3, PHOS3, PCAL #### [address] [address] [place] Monocytes (Bld) [#/Vol] 0.4 10*3/uL Normal 0.0-0.8 [facility] Comment on above: Performed By: #### B MP3M, HEMDF, MG3, PHOS3, PCAL #### [address] Monocytes/100 WBC (Bld) 4.0 % Normal 2.0-10.0 [facility] Comment on above: Performed By: #### B MP3M, HEMDF, MG3, PHOS3, PCAL #### [facility] [address] [place] Platelet mean volume (Bld) [Entitic vol] 6.7 fL Low 7.4-12.4 [facility] Comment on above: Result Comment: MPV is a calculated measurement using platelet volume ratio. Performed By: #### B MP3M, HEMDF, MG3, PHOS3, PCAL #### [facility] [address] [place] Platelets (Bld) [#/Vol] 178 10*3/uL Normal 140-440 [facility] Comment on above: Performed By: #### B MP3M, HEMDF, MG3, PHOS3, PCAL #### [address] [place] [place] RBC (Bld) [#/Vol] 3.30 10*6/uL Low 3.80-5.20 [facility] Comment on above: Performed By: #### B MP3M, HEMDF, MG3, PHOS3, PCAL #### [address] [place] [place] WBC (Bld) [#/Vol] 10.6 10*3/uL Normal 3.6-10.7 [facility] Comment on above: Performed By: #### B MP3M, HEMDF, MG3, PHOS3, PCAL #### [address] [place] [place] LDHon 12-29-2021 LDH 199 U/L Normal 120-246 [facility] Comment on above: Performed By: #### H EMDF, BMP3M #### [facility] [address] LDH, Body Fluidon 12-29-2021 LDH, Body Fluid 1025 U/L Normal No Range [facility] Comment on above: Order Comment: rt. t hora ve=533 ml Performed By: #### B GLU #### [facility] [address], [place] LEGIONELLA AG, URINEon 12-29 LEGIONELLA AG, URINE Not detected Normal [facility] Comment on above: Performed By: #### B MP3M, HEMDF, MG3, PHOS3, PCAL #### [facility] [address] [place] [address] Lactate Dehydrogenaseon LD 199 U/L 120 - 246 U/L [facility] Lactate Dehydrogenase, Body Fluidon 12-29-2021 LD, Fluid 1025 U/L No Range [facility] Lactic Acidon 12-29-2021 Lactate [Moles/Vol] 1.0 mmol/L Normal 0.7-2.0 [facility] Comment on above: Performed By: #### B MP3M, HEMDF, MG3, PHOS3, PCAL #### [address] [address] Lactate [Moles/Vol] 1 mmol/L 0.7 - 2 mmol/L [facility] Lactate [Moles/Vol] 2.1 mmol/L Critically high 0.7-2.0 [facility] Comment on above: Performed By: #### B MP3M, HEMDF, MG3, PHOS3, PCAL #### [facility] [address] [place] [address] Lactate [Moles/Vol] 2.1 mmol/L Critically high 0.7 - 2 mmol/L [facility] Legionella Antigen, Urineon 12-29-2021 LEGIONELLA ANTIGEN Not detected [facility] Work Phone: Magnesiumon 12-29-2021 Magnesium [Mass/Vol] 1.6 mg/dL Normal 1.6-2.3 [facility] Comment on above: Performed By: #### B MP3M, HEMDF, MG3, PHOS3, PCAL #### [facility] [address] [place] [address] Magnesium [Mass/Vol] 1.6 mg/dL 1.6 - 2 .3 mg/dL [facility] Work Phone: [facility] Work Phone: Medical Cytology 2 Medical Cytology [facility] [phone] DEPARTMENT OF PATHOLOGY AND [facility] LABORATORY MEDICINE [address] [facility] [place] [address] FINAL MEDICAL CYTOLOGY REPORT NAME: JAIMIE MCGOVERN : 1945 76 Y F BILLING NO.: [id number] LOCATION: [facility] T2 INPAT T223 PROCEDURE 12/29/2021 DATE: PHYSICIAN: MONIKA ARAUJO MD RECEIVED DATE: 12/30/2021 ATTENDING: JOHNNY BERRIOS MD REPORT DATE: 12/31/2021 COPIES TO: JOHNNY BERRIOS MD; DARLENE MENDEZ D.O. CLINICAL DATA: DIAGNOSIS NO MALIGNANT CELLS IDENTIFIED. Inflammation present. SPECIMEN: PLEURAL FLUID, RIGHT PROCEDURE(S): FLUID COLLECTION GROSS DESCRIPTION: 500 ml, Red fluid, w/o cytolyt. Materials Prepared & Examined: Cell Blocks . . . . . . . . . . . . 2 Monolayers . . . . . . . . . . . . 1 KB5 Screened by RADHA GALVAN M.D. The following statement applies to all immunohistochemistry, in situ hybridization, molecular studies, and immunofluorescence testing. The use of one or more reagents in the above tests is regulated as an analyte specific reagent (ASR). These tests were developed and their performance characteristics determined by the clinical laboratories of [facility]. They have not been cleared by the US Food and Drug Administration (FDA). The FDA has determined that such clearance or approval is not necessary. All the above immunostains were performed on paraffin embedded tissue. Appropriate positive and negative controls (where applicable) were run in parallel with the patient's specimen; these controls showed expected staining pattern, with acceptable intensity of staining. Immunohistochemical assays have not been validated on decalcified tissues. Results should be interpreted with caution given the raised possibility of false negativity on decalcified specimens. Case reviewed at [facility] [address] [place] [address]. DEPARTMENT OF PATHOLOGY AND LABORATORY MEDICINE [place], [place] [address] [email or web address] Normal [facility] No Panel Informationon 12-29 [facility] Work Phone: Radiology Study observation (narrative) [facility] Work Phone: Interpretation and review of laboratory results Abnormal [facility] Interpretation and review of laboratory results Abnormal [facility] POC Arterial Respiratory Pastor el - Rapid Responseon 12-29-2021 Base Excess, Arterial -2.3 mmol/L -3 - 3 mmol/L [facility] CO2 [Moles/Vol] 21.9 mmol/L Low 23 - 27 mmol/L [facility] HCO3 (Bld) [Moles/Vol] 20.9 mmol/L Low 21 - 25 mmol/L [facility] Hematocrit (Bld) [Volume fraction] 40 % 37 - 52 % [facility] Oxygen saturation in Blood 93.3 % Low 95 - 100 % [facility] pCO2, Arterial 31.1 mm[Hg] Low 35 - 45 mm[Hg] [facility] pH, Arterial 7.436 [facility] pO2, Arterial 64.8 mm[Hg] Low 80 - 100 mm[Hg] [facility] Potassium [Moles/Vol] 3.4 mmol/L 3.4 - 5.1 mmol/L [facility] Sodium [Moles/Vol] 135 mmol/L 133 - 145 mmol/L [facility] Procalcitoninon 12-29-2021 Procalcitonin 3.68 ng/mL High 0.00-0.09 [facility] Comment on above: Performed By: #### B MP3M, HEMDF, MG3, PHOS3, PCAL #### [facility] [address] [place] [address] Interpretation See Below [facility] Work Phone: Interpretation and review of laboratory results Abnormal [facility] Work Phone: [phone] Procalcitonin 3.68 ng/mL High 0 - 0.09 ng/mL [facility] Work Phone: [phone] Work Phone: [phone] Interpretation See Below Normal [facility] Comment on above: Result Comment: PCT <0.50 = Low risk of severe sepsis and/or septic shock. PCT >2.00 = High risk of severe sepsis and/or septic shock. Performed By: #### B MP3M, HEMDF, MG3, PHOS3, PCAL #### [facility] [address] [place] Protein, Totalon 12-29-2021 Free PSA/Total PSA [Mass fraction] 5.5 g/dL Low 6.3 - 8.2 g/dL [facility] Interpretation and review of laboratory results Abnormal [facility] Protein, Total Body Fluidon 12-29-2021 Protein,Total-Body Fld 2.9 g/dL Normal No Range [facility] Comment on above: Order Comment: rt. t hora yu=810 ml Performed By: #### B GLU #### [facility] [address] STREP PNEUMO ANTIGEN, URINEo n 12-29-2021 STREP PNEUMO ANTIGEN, URINE Not detected Normal [facility] Comment on above: Performed By: #### B MP3M, HEMDF, MG3, PHOS3, PCAL #### [facility] [address] Strep Pneumoniae Antigenon 0 12-29-2021 STREP PNEUMONIAE ANTIGEN, URINE Not detected [facility] Work Phone: TSHon 12-29-2021 TSH Qn 2.263 u[IU]/mL 0.465 - 4.68 u[IU]/mL [facility] Work Phone: [phone] [facility] Work Phone: [phone] Thyroid Stim. Hormoneon Thyroid Stim. Hormone 2.263 u[IU]/mL Normal 0.465-4.68 0 [facility] Comment on above: Performed By: #### B MP3M, HEMDF, MG3, PHOS3, PCAL #### [address] [address] Total Proteinon 12-29-2021 Protein [Mass/Vol] 5.5 g/dL Low 6.3-8.2 [facility] Comment on above: Performed By: #### H EMDF, BMP3M #### [address] [address] Total Protein, Fluidon 12-29 Fluid Type Thoracentesis [facility] Protein, body fluid 2.9 g/dL No Range [facility] Troponinon 12-29-2021 Interpretation and review of laboratory results Abnormal [facility] Work Phone: [phone] Troponin I.cardiac [Mass/Vol] 0.156 ng/mL High 0 - 0.034 ng/mL [facility] Work Phone: [phone] [facility] Work Phone: [phone] Interpretation and review of laboratory results Abnormal [facility] Work Phone: [phone] Troponin I.cardiac [Mass/Vol] 0.162 ng/mL High 0 - 0.034 ng/mL [facility] Work Phone: [phone] [facility] Work Phone: [phone] Interpretation and review of laboratory results Abnormal [facility] Work Phone: [phone] Troponin I.cardiac [Mass/Vol] 0.039 ng/mL High 0 - 0.034 ng/mL [facility] Work Phone: [phone] [facility] Work Phone: [phone] Troponin Ion 12-29-2021 Troponin I.cardiac [Mass/Vol] 0.156 ng/mL High 0.000-0.034 [facility] [employer] [facility] Comment on above: Result Comment: . Performed By: #### H EMDF, BMP3M #### [employer] [facility] [address] [place], [place] Troponin I.cardiac [Mass/Vol] 0.162 ng/mL High 0.000-0.034 [facility] [employer] [facility] Comment on above: Result Comment: . Performed By: #### T ROPN ####[address] [place], [place] Troponin I.cardiac [Mass/Vol] 0.039 ng/mL High 0.000-0.034 [facility] [employer] Comment on above: Result Comment: . Performed By: #### B MP3M, HEMDF, MG3, PHOS3, PCAL #### [employer] [address] [place], [place] US Thora-Aspir Pleura w/ Shawanda geon 12-29-2021 US Thora-Aspir Pleura w/ Image Patient Name: JAIMIE MCGOVERN Ultrasound ACCESSION EXAM DATE/TIME PROCEDURE ORDERING PROVIDER [id number] 12/29/2021 16:07 EDT US Thora-Aspir Pleura w/ [id number] -[place], Image MONIKA CPT code 44412 Reason For Exam (US Thora-Aspir Pleura w/ Image) Thoracentesis Right pleural effusion. Report PROCEDURE: Ultrasound-guided thoracentesis Procedural Personnel Attending physician(s): Quinn Pastor MD Advanced practice provider(s): Nicola Rob PA-C Indication: Pleural effusion Additional clinical history: None Complications: No immediate complications. IMPRESSION: Successful ultrasound-guided right thoracentesis with drainage of 500 milliliters of cloudy sita-colored serous fluid. Attending physician was present for the entirety of the procedure. PROCEDURE SUMMARY: - Limited thoracic ultrasound - Ultrasound-guided thoracentesis - Additional procedure(s): None PROCEDURE DETAILS: Pre-procedure Consent: Informed consent for the procedure including risks, benefits and alternatives was obtained and time-out was performed prior to the procedure. Preparation: The site was prepared and draped using maximal sterile barrier technique including cutaneous antisepsis. Anesthesia/sedation None Limited thoracic ultrasound Limited thoracic ultrasound was performed using a curved transducer. A safe window for thoracentesis was identified. Moderate to large pleural effusion was seen on the side of aspiration. The contralateral side was not investigated. Ultrasound Report Thoracentesis Local anesthesia was administered. Ultrasound was used to pick a safe access site. A permanent image was stored. The pleural space was accessed and fluid return confirmed position. The fluid was drained. Catheter placed: 5F Yueh Closure The catheter was removed. A sterile bandage was applied. Post-drainage hemithorax findings: Minimal effusion Additional Details Additional description of procedure: None Equipment details: None Specimens removed: Pleural fluid Estimated blood loss (mL): Less than 10 Report Dictated on Final Dictated: 12/29/2021 4:13 pm Dictating Physician: MD PASTOR KEVIN Signed Date and Time: 12/30/2021 8:18 am Signed by: MD PASTOR KEVIN Transcribed Date and Time: 12/29/2021 4:14 Normal [facility] XR ABDOMEN (KUB) (SINGLE AP VIEW)on 12-29-2021 [facility] Work Phone: XR ABDOMEN (KUB) (SINGLE AP VIEW)Ordered By: Froilan Loyola on 12-29-2021 [facility] Work Phone: XR CHEST PORTABLEon 12-30-19 22 [facility] Work Phone: [facility] Work Phone: XR CHEST PORTABLEOrdered By: Jorge Mckenna on 12-29-2021 [facility] Work Phone: XR CHEST PORTABLEOrdered By: Rafael Liao on 12-29-2021 [facility] Work Phone: CR Chest Portableon 12-29-19 22 CR Chest Portable Patient Name: JAIMIE MCGOVERN Diagnostic Radiology ACCESSION EXAM DATE/TIME PROCEDURE ORDERING PROVIDER [id number] 12/28/2021 12:22 EDT CR Chest Portable MD GONZALEZ DAVID CPT code 42742 Reason For Exam (CR Chest Portable) s/p R IJ CVC placement Report PORTABLE CHEST (Frontal View) History: Catheter placement Comparison: 12/28/2021, 0556 hours Findings: Frontal portable chest view shows the tip of newly inserted right IJ catheter overlies the right atrium/SVC junction. There is large right and small left pleural effusion. There are also right and smaller left basilar atelectasis/infiltrat e. The lungs appear less congested compared to last exam. The heart is borderline in size. There is no mediastinal widening, pneumothorax, or other significant interval change. Report Dictated on Final Dictated: 12/28/2021 1:35 pm Dictating Physician: MD SALAZAR AHMAD Signed Date and Time: 12/28/2021 1:38 pm Signed by: MD SALAZAR AHMAD Transcribed Date and Time: 12/28/2021 1:35 Normal [facility] CR Chest Portable Patient Name: JAIMIE MCGOVERN Diagnostic Radiology ACCESSION EXAM DATE/TIME PROCEDURE ORDERING PROVIDER [id number] 12/28/2021 05:56 EDT CR Chest Portable [id number] MONIKA AYOUB CPT code 25251 Reason For Exam (CR Chest Portable) pneumomediastinum Report PORTABLE CHEST (Frontal View) History: Respiratory abnormality, pneumomediastinum, follow-up Comparison: 12/27/[address] Findings: Frontal portable chest view shows haziness throughout the right lung and to a lesser degree left lung base suggesting bilateral infiltrate/edema with moderate right and a small left pleural effusions. The heart is borderline in size. Compared to the chest CT of 12/27/2021, previously described pneumomediastinum could not be appreciated on the current radiographs (CT more sensitive). Continued evaluation and follow-up recommended. Report Dictated on Final Dictated: 12/28/2021 8:18 am Dictating Physician: MD SALAZAR AHMAD Signed Date and Time: 12/28/2021 8:28 am Signed by: MD SALAZAR AHMAD Transcribed Date and Time: 12/28/2021 8:18 Normal [facility] Lactic Acidon 12-28-2021 Lactate [Moles/Vol] 2.4 mmol/L Critically high 0.7-2.0 [facility] Comment on above: Performed By: #### H EMDF, BMP3M #### [facility] [address] [place], [place] Lactate [Moles/Vol] 3.6 mmol/L Critically high 0.7-2.0 [facility] Comment on above: Performed By: #### L ACT3 ####[id number] [place], [place] Interpretation and review of laboratory results Abnormal [facility] Lactate [Moles/Vol] 3.6 mmol/L Critically high 0.7 - 2 mmol/L [facility] No Panel Informationon 12-28 [facility] Work Phone: [phone] [facility] Radiology Study observation (narrative) [facility] Work Phone: Troponinon 12-28-2021 Troponin I.cardiac [Mass/Vol] 0.027 ng/mL 0 - 0.034 ng/mL [facility] Work Phone: [phone] Troponin I.cardiac [Mass/Vol] 0.025 ng/mL 0 - 0.034 ng/mL [facility] Work Phone: Troponin Ion 12-28-2021 Troponin I.cardiac [Mass/Vol] 0.027 ng/mL Normal 0.000-0.034 [facility] Comment on above: Result Comment: . Performed By: #### T ROPN ####[address] [place], [place] Troponin I.cardiac [Mass/Vol] 0.025 ng/mL Normal 0.000-0.034 [facility] Comment on above: Result Comment: . Performed By: #### T ROPN ####[facility] [place], [place] XR CHEST PORTABLEon 12-29-19 22 [facility] Work Phone: [facility] Work Phone: [facility] Work Phone: XR CHEST PORTABLEOrdered By: Unknown Result on 12-28-2021 [facility] Absolute lymphocyte counton 12-27-2021 Lymphocytes Auto (Unsp spec) [#/Vol] 0.99 10*3/uL 0.83-4.51 [facility] Work Phone: Add On Lab Teston 12-27-2021 Add On Accepted [facility] Add on test from HISon 12-27 Add on test from HIS Accepted Normal [facility] Comment on above: Result Comment: Spec imen available & acceptable for analysis. Performed By: #### B MP3M, HEMDF, MG3, PHOS3, PCAL #### [facility] [address], [place] Basic Metabolic Panelon Anion gap [Moles/Vol] 7 mmol/L Normal 3-13 [facility] Comment on above: Performed By: #### B MP3M, HEMDF, MG3, PHOS3, PCAL #### [facility] [address] [place], [place] Calcium [Mass/Vol] 7.9 mg/dL Low 8.4-10.4 [facility] Comment on above: Performed By: #### B MP3M, HEMDF, MG3, PHOS3, PCAL #### [facility] [address] [place], [place] CO2 [Moles/Vol] 20 mmol/L Low 22-30 [facility] Comment on above: Performed By: #### B MP3M, HEMDF, MG3, PHOS3, PCAL #### [facility] [address] [place], [place] Glucose [Mass/Vol] 120 mg/dL High 70-100 [facility] Comment on above: Performed By: #### B MP3M, HEMDF, MG3, PHOS3, PCAL #### [facility] [address] [place], [place] Urea nitrogen [Mass/Vol] 9 mg/dL Normal 9-20 [facility] Comment on above: Performed By: #### B MP3M, HEMDF, MG3, PHOS3, PCAL #### [facility] [address] [place], [place] Creatinine [Mass/Vol] 0.52 mg/dL Normal 0.52-1.25 [facility] Comment on above: Performed By: #### B MP3M, HEMDF, MG3, PHOS3, PCAL #### [facility] [address], [place] eGFR OTHER > 90.0 Normal >60 [facility] Comment on above: Result Comment: KDIG O guidelines provide the following GFR categories: Stage GFR(ml/min/1.73 m2) Terms G1 >=90 Normal or high G2 60-89 Mildly decreased* G3a 45-59 Mildly to moderately decreased G3b 30-44 Moderately to severely decreased G4 15-29 Severely decreased G5 <15 Kidney failure *Relative to young adult level. In the absence of evidence of kidney damage, neither GFR category G1 nor G2 fulfill the criteria for CKD. The CKD-EPI equation is validated in individuals 18 years of age and older. Currently the best equation for estimating glomerular filtration rate (GFR) from serum creatinine in children is the Bedside Velez equation. It is less accurate in patients with extremes of muscle mass, restriction of dietary protein, ingestion of creatine, extra-renal metabolism of creatinine, or treatment with medications that affect renal tubular creatinine secretion. Performed By: #### B MP3M, HEMDF, MG3, PHOS3, PCAL #### [facility] [address], [place] GFR/1.73 sq M.predicted among blacks MDRD (S/P/Bld) [Vol rate/Area] mL/min/{1.73_m2} Normal >60 [facility] Comment on above: Performed By: #### B MP3M, HEMDF, MG3, PHOS3, PCAL #### [facility] [address] [place] [address] Chloride [Moles/Vol] 112 mmol/L High 98-107 [facility] Comment on above: Performed By: #### B MP3M, HEMDF, MG3, PHOS3, PCAL #### [facility] [address] [place] [address] Potassium [Moles/Vol] 4.4 mmol/L Normal 3.5-5.1 [facility] Comment on above: Result Comment: Slig htly hemolysed, interpret with caution. Performed By: #### B MP3M, HEMDF, MG3, PHOS3, PCAL #### [facility] [address] [place] [address] Sodium [Moles/Vol] 140 mmol/L Normal 135-145 [facility] Comment on above: Performed By: #### B MP3M, HEMDF, MG3, PHOS3, PCAL #### [address] [place] [address] Anion gap [Moles/Vol] 7 mmol/L 3 - 13 mmol/L [facility] Work Phone: Calcium [Mass/Vol] 7.9 mg/dL Low 8.4 - 10. 4 mg/dL [facility] Work Phone: [phone] Chloride [Moles/Vol] 112 mmol/L High 98 - 10 7 mmol/L [facility] Work Phone: [phone] CO2 [Moles/Vol] 20 mmol/L Low 22 - 30 mmol/L [facility] Work Phone: [phone] Creatinine [Mass/Vol] 0.52 mg/dL 0.52 - 1.25 mg/dL [facility] Work Phone: [phone] eGFR mL/min 60 - P INF mL/min [facility] Work Phone: [phone] EGFR IF NonAfrican Trinidadian mL/min 60 - PINF mL/min [facility] Work Phone: [phone] Glucose [Mass/Vol] 120 mg/dL High 70 - 100 mg/dL [facility] Work Phone: Interpretation and review of laboratory results Abnormal [facility] Work Phone: [phone] Potassium [Moles/Vol] 4.4 mmol/L 3.5 - 5.1 mmol/L [facility] Work Phone: [phone] Sodium [Moles/Vol] 140 mmol/L 135 - 145 mmol/L [facility] Work Phone: [phone] Urea nitrogen (BldV) [Mass/Vol] 9 mg/dL 9 - 20 mg/dL [facility] Work Phone: [phone] [facility] Work Phone: [phone] Basophil percentageon 2021 Lactate [Moles/Vol] 2.5 mmol/L 0.4-2.0 [facility] Work Phone: Comment on above: Critical Result(s) C alled at: 09:11:21 12/27/2021 by: Mercedes Panda to [place]. Results read back by same. Basophil percentage 0 SEEN /hpf 0-5 [facility] Work Phone: Basophils/100 WBC (Bld) 0.5 % 0-1 [facility] Work Phone: Bilirubin [Mass/Vol] 0.20 mg/dL 0.20-1.00 [facility] Work Phone: Comment on above: For patients on eltr ombopag therapy, use of Dimension Mays TBIL is not recommended. Chloride [Moles/Vol] 114 mmol/L 98-107 [facility] Work Phone: Eosinophils/100 WBC (Bld) 0.8 % 0-5 [facility] Work Phone: Glucose [Mass/Vol] 173 mg/dL 74-106 [facility] Work Phone: Comment on above: Fasting Glucose resu lt greater than or equal to 126 mg/dL suggests DIABETES MELLITUS per A.D.A. criteria. Neutrophils (Bld) [#/Vol] 12.6 10*3/uL 2.0-7.7 [facility] Work Phone: Neutrophils/100 WBC (Bld) 83.6 % 47-70 [facility] Work Phone: Potassium [Moles/Vol] 3.7 mmol/L 3.5-5.1 [facility] Work Phone: Protein [Mass/Vol] 6.7 g/dL 6.4-8.2 [facility] Work Phone: Sodium [Moles/Vol] 145 mmol/L 136-145 [facility] Work Phone: WBC (Bld) [#/Vol] 15.1 10*3/uL 4.4-11.0 [facility] Work Phone: Bilirubin Test strip Ql (U)o n 12-27-2021 Bilirubin Ql (U) Negative Negative [facility] Work Phone: Blood erythrocytes count (nu mber/volume)on 12-27-2021 RBC (Bld) [#/Vol] 3.93 10*6/uL 4.2-5.4 [facility] Work Phone: Blood hemoglobin measurement (mass/volume)on 12-27-2021 Hemoglobin (Bld) [Mass/Vol] 14.2 g/dL 12.0-15.0 [facility] Work Phone: Blood lymphocytes/100 leukoc yteson 12-27-2021 Lymphocytes/100 WBC (Bld) 6.6 % 19-41 [facility] Work Phone: Blood monocytes/100 leukocyt eson 12-27-2021 Monocytes/100 WBC (Bld) 8.2 % 0-10 [facility] Work Phone: Blood platelet mean volumeon 12-27-2021 Platelet mean volume (Bld) [Entitic vol] 8.4 fL 6.2-12.0 [facility] Work Phone: CBC with Auto Differentialon 12-27-2021 Hematocrit (Bld) [Volume fraction] 41.2 % 35 - 47 % [facility] Work Phone: [phone] Hemoglobin (Bld) [Mass/Vol] 13.5 g/dL 11.7 - 16 g/dL [facility] Work Phone: [phone] Interpretation and review of laboratory results Abnormal [facility] Work Phone: [phone] MCH (RBC) [Entitic mass] 35.8 pg High 26 - 34 pg [facility] Work Phone: [phone] MCHC (RBC) [Mass/Vol] 32.9 % 32 - 36 % [facility] Work Phone: [phone] MCV (RBC) [Entitic vol] 108.9 fL High 79 - 98 fL [facility] Work Phone: [phone] Platelet distribution width (Bld) [Ratio] 17.3 % High 11.5 - 14.5 % [facility] Work Phone: [phone] Platelet mean volume (Bld) [Entitic vol] 6.9 fL Low 7.4 - 12.4 fL [facility] Work Phone: [phone] Platelets (Bld) [#/Vol] 219 10*3/uL 140 - 440 10*3/uL [facility] Work Phone: [phone] RBC (Bld) [#/Vol] 3.78 10*6/uL Low 3.8 - 5.2 10*6/uL [facility] Work Phone: [phone] WBC (Bld) [#/Vol] 8.4 10*3/uL 3.6 - 10.7 10*3/uL [facility] Work Phone: [phone] [facility] Work Phone: [phone] COVID and Resp PCR Panelon 0 12-27-2021 SARS-CoV-2 (COVID-19) RNA LISE+probe Ql (Unsp spec) COVID and Resp PCR Panel --> Status: F NEGATIVE: No targets were detected by the [employer] Upper Respiratory Pathogens PCR Panel. _ Expected Result: Not Detected The [employer] Upper Respiratory Pathogens PCR Panel can detect the following targets: SARS-CoV-2, Adenovirus, Coronavirus 229E, Coronavirus HKU1, Coronavirus NL63, Coronavirus OC43, Human Metapneumovirus, Human Rhinovirus/Enteroviru s, Influenza A, Influenza B, Parainfluenza Virus 1, Parainfluenza Virus 2, Parainfluenza Virus 3, Parainfluenza Virus 4, Respiratory Syncytial Virus, Bordetella pertussis, Bordetella parapertussis, Chlamydia pneumoniae, Mycoplasma pneumoniae. Method: Real-time PCR. Respiratory Pathogens PCR Panel. _ Expected Result: Not Detected The [employer] Upper Respiratory Pathogens PCR Panel can detect the following targets: SARS-CoV-2, Adenovirus, Coronavirus 229E, Coronavirus HKU1, Coronavirus NL63, Coronavirus OC43, Human Metapneumovirus, Human Rhinovirus/Enteroviru s, Influenza A, Influenza B, Parainfluenza Virus 1, Parainfluenza Virus 2, Parainfluenza Virus 3, Parainfluenza Virus 4, Respiratory Syncytial Virus, Bordetella pertussis, Bordetella parapertussis, Chlamydia pneumoniae, Mycoplasma pneumoniae. Method: Real-time PCR. Normal [facility] Comment on above: Performed By: #### B MP3M, HEMDF, MG3, PHOS3, PCAL #### [employer] [address] [place] [id number] [address] CHEST W CONTRASTon 2021 [facility] [employer] Work Phone: Radiology Study observation (narrative) [employer] Work Phone: CT CHEST W CONTRASTOrdered B y: Evgeny Arenas on 12-27-2021 [facility] Work [facility]: CT Chest w/ Contraston 12-27 CT Chest w/ Contrast Patient Name: JAIMIE MCGOVERN Computed Tomography ACCESSION EXAM DATE/TIME PROCEDURE ORDERING PROVIDER [id number] 12/27/2021 14:[address] Thorax w/ Contrast [id number] MONIKA AYOUB CPT code 08377 Q9967 Reason For Exam (CT Thorax w/ Contrast) CT esophogram for possible esophageal perforation Report EXAMINATION: CT of the chest with oral contrast (CT esophagram). EXAM DATE and TIME: 12/27/2021 2:58 PM EDT INDICATION: CT esophogram for possible esophageal perforation ADDITIONAL INFORMATION: 76-year-old female with suspected perforated esophagus presents for CT esophagram COMPARISON: None LIMITATIONS: None TECHNIQUE: [address] images were obtained of the chest during dynamic injection of oral contrast. Images were reformatted in coronal and sagittal projections using the raw CT data and were interpreted in conjunction with the axial images to render the findings listed below. Before infusion of intravenous contrast, radiology personnel investigated the possibility of an allergic history and any history of reaction to iodinated contrast material. FINDINGS: Cardiovascular: Atherosclerotic vascular calcifications are present. Mediastinum/pericardi um: A moderate amount of pneumomediastinum is present, tracking from the level of the thyroid gland, down to the gastroesophageal junction. No evidence of contrast extravasation into the mediastinum to suggest the presence of an esophageal injury. Thyroid: Unremarkable. Tracheobronchial tree: Some debris is present in the trachea and proximal mainstem bronchi. A large amount of debris is present in the bilateral lower lobe bronchioles, suspicious for aspiration. Pleura: There are large right and small left pleural effusions with associated atelectatic change. No evidence of pneumothorax. Computed Tomography Report Lungs: There is bibasilar scarring/atelectasis and partial collapse of the bilateral lower lobes. There is also mild patchy consolidation near the dependent aspects of the lung bases. Nodules: No nodules are present that require follow up. Lymph nodes: No emerging adenopathy. Included images of the upper abdomen: There is colonic interposition. Nodular hepatic margin is suggestive of cirrhotic liver morphology. There is moderate bilateral adrenal nodularity, left greater than right. Visualized musculoskeletal structures: No acute osseous abnormality is demonstrated. Mild multilevel spondylosis is present. IMPRESSION: 1. No contrast extravasation to suggest the presence of an esophageal injury. 2. Fairly extensive pneumomediastinum, spanning the level of the thyroid gland of the gastroesophageal junction. 3. Large right and small left pleural effusions with associated atelectatic change. 4. Debris in the trachea, mainstem bronchi and bilateral lower lobe bronchioles, suspicious for aspiration. Clinical correlation recommended. 5. Hepatic cirrhosis. 6. Additional chronic findings as above. Report Dictated on Final Dictated: 12/27/2021 3:37 pm Dictating Physician: MD ARENAS CHRISTOPHER Signed Date and Time: 12/27/2021 3:46 pm Signed by: MD ARENAS CHRISTOPHER Transcribed Date and Time: 12/27/2021 3:37 Normal [facility] Determination of erythrocyte mean corpuscular volume (MCV)on 12-27-2021 MCV (RBC) [Entitic vol] 108.9 fL 81-99 [facility] Work Phone: Direct bilirubinon 2 Bilirubin.direct [Mass/Vol] 0.09 mg/dL 0.00-0.30 [facility] Work Phone: ED Provider Noteon 2 ED Provider Note [facility] EMERG[facility]Y DEPT EMERGENCY DEPARTMENT ENCOUNTER Pt Name: Jaimie Mcgovern Birthdate 1945 Date of evaluation: 12/27/2021 Provider: Mary Queen MD CHIEF COMPLAINT Chief Complaint Patient presents with Abdominal Pain Transfer from [place]. Pt c/o abdominal pain. HISTORY OF PRESENT ILLNESS (Location/Symptom, Timing/Onset, Context/Setting, Quality, Duration, Modifying Factors, Severity) Note limiting factors. I wore a kn95 mask for the entirety of this encounter. Jaimie Mcgovern is a 76 y.o. female who presents to the emergency department from transfer from [facility] . She had originally presented to [facility] via EMS due to pain in the right side for the past couple days and worsening late last night.There she had scans showing pneumatosis of the cecum concerning for bowel ischemia. She was transferred for surgical evaluation. S/P 2L fluid bolus, Piperacillen/Tazobact am, and pain control. She denies changes in bowel or bladder habits, blood in stools, or changes in stool caliber. She last ate yesterday night. Past medical history is only significant for liver cirrhosis which was diagnosed >5 years ago. She drinks approximately 3 glasses of wine >4x weekly. She is a current everyday smoker of 1ppd, with no prior oxygen requirement. 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 They stated no current interventions to be done per patient family. Nursing Notes were reviewed. REVIEW OF SYSTEMS (2+ for level 4; 10+ for level 5) Review of Systems Constitutional: Negative for activity change, appetite change, chills, diaphoresis, fatigue and fever. HENT: Negative for sore throat. Respiratory: Positive for cough. Negative for chest tightness and shortness of breath. Cardiovascular: Negative for chest pain. Gastrointestinal: Positive for abdominal pain and vomiting. Negative for abdominal distention, anal bleeding, blood in stool, constipation, diarrhea and nausea. Genitourinary: Positive for frequency. Negative for dysuria and flank pain. Skin: Negative. Allergic/Immunologic: Negative. Neurological: Negative for dizziness, syncope and weakness. Psychiatric/Behaviora l: Negative. All other systems reviewed and are negative. PAST MEDICAL HISTORY No past medical history on file. SURGICAL HISTORY No past surgical history on file. CURRENT MEDICATIONS Previous Medications No medications on file ALLERGIES Patient has no allergy information on record. FAMILY HISTORY No family history on file. SOCIAL HISTORY Social History Socioeconomic History Marital status: Single SCREENINGS PHYSICAL EXAM (up to 7 for level 4, 8 or more for level 5) ED Triage Vitals BP Temp Temp Source Heart Rate Resp SpO2 Height Weight 12/27/21 1033 12/27/21 1033 12/27/21 1033 12/27/21 1033 12/27/21 1033 12/27/21 1033 12/27/21 1040 12/27/21 1040 (!) 173/89 98.3 ?F (36.8 ?C) Oral 92 16 98 % 5' (1.524 m) 115 lb (52.2 kg) Physical Exam Constitutional: Appearance: She is well-developed. She is not toxic-appearing. HENT: Head: Normocephalic and atraumatic. Mouth/Throat: Mouth: Mucous membranes are moist. Pharynx: Oropharynx is clear. Eyes: Extraocular Movements: Extraocular movements intact. Pupils: Pupils are equal, round, and reactive to light. Cardiovascular: Rate and Rhythm: Normal rate and regular rhythm. Heart sounds: Normal heart sounds. No murmur heard. No friction rub. No gallop. Pulmonary: Effort: Pulmonary effort is normal. No respiratory distress. Breath sounds: Wheezing present. Abdominal: General: Abdomen is flat. There is no distension. Palpations: Abdomen is soft. There is no hepatomegaly. Tenderness: There is abdominal tenderness in the right upper quadrant and right lower quadrant. Hernia: No hernia is present. Skin: General: Skin is warm and dry. Neurological: General: No focal deficit present. Mental Status: She is alert. Psychiatric: Mood and Affect: Mood normal. DIAGNOSTIC RESULTS RADIOLOGY (Per Emergency Physician): Findings present in documentation from [place] [facility]. Interpretation per the Radiologist below, if available at the time of this note: CT CHEST W CONTRAST Result Date: 12/27/2021 Patient Name: JAIMIE MCGOVERN [facility]#: [id number] Computed Tomography ACCESSION EXAM DATE/TIME PROCEDURE ORDERING PROVIDER [id number] 12/27/2021 14:[address] Thorax w/ Contrast [id number] MONIKA AYOUB CPT code 47315 Q9967 Reason For Exam (CT Thorax w/ Contrast) CT esophogram for possible esophageal perforation Report EXAMINATION: CT of the chest with oral contrast (CT esophagram). EXAM DATE & TIME: 12/27/2021 2:58 PM EDT INDICATION: CT esophogram for possible esophageal perforation ADDITIONAL INFORMATION: 76-year-old female with suspected perforated esophagus presents for CT esophagram COMPARISON: None LIMITATIONS: (more content not included)... Normal [facility] ED Provider Note Emergency Department Encounter [facility] EMERGENCY DEPT Patient: Jaimie Mcgovern : 1945 Date of Evaluation: 12/27/2021 ED Supervising Physician: Dex Hicks DO I independently examined and evaluated Jaimie Mcgovern. Focused exam: Appears well, in no acute distress, regular rate and rhythm, lungs are clear to auscultation, it is present in the right upper and right lower quadrant. Brief ED course/MDM: I, Dr. Hicks, am the outreach clinician of record. I personally saw the patient and performed a substantive portion of the visit including all aspects of the medical decision making. Patient is a 76 y.o. female presenting to the emergency department with abdominal pain.The chart was reviewed for pertinent history relating to the chief complaint. The patient was evaluated at bedside. The patient appears uncomfortable, vitals are stable, CT at outside hospital revealed pneumatosis within the cecum. The patient was given 1 dose of Zosyn and 2 L normal saline bolus at outside hospital emergency department. Appropriate evaluation adjuncts were ordered. All diagnostic, treatment, and disposition decisions were made by myself in conjunction with the Resident. I also supervised gustafson portions of any procedures performed by the Resident. For all further details of the patient's emergency department visit, please see their documentation. (Please note that portions of this note may have been completed with a voice recognition program. Efforts were made to edit the dictations but occasionally words are mis-transcribed.) Dex Hicks DO [employer] Dex Hicks DO 12/27/21 1053 Normal [facility] Hematocrit Auto (Bld) [Volum e fraction]on 12-27-2021 Hematocrit (Bld) [Volume fraction] 42.8 % 37-47 [facility] Work Phone: Hemogram w/ Autodiffon 12-27 Erythrocyte distribution width (RBC) [Ratio] 17.3 % High 11.5-14.5 [facility] Comment on above: Performed By: #### B MP3M, HEMDF, MG3, PHOS3, PCAL #### [address] Hematocrit (Bld) [Volume fraction] 41.2 % Normal 35.0-47.0 [facility] Comment on above: Performed By: #### B MP3M, HEMDF, MG3, PHOS3, PCAL #### [address] Hemoglobin (Bld) [Mass/Vol] 13.5 g/dL Normal 11.7-16.0 [facility] Comment on above: Performed By: #### B MP3M, HEMDF, MG3, PHOS3, PCAL #### [address] MCH (RBC) [Entitic mass] 35.8 pg High 26.0-34.0 [facility] Comment on above: Performed By: #### B MP3M, HEMDF, MG3, PHOS3, PCAL #### [address] MCHC 32.9 % Normal 32.0-36.0 [facility] Comment on above: Performed By: #### B MP3M, HEMDF, MG3, PHOS3, PCAL #### [place] [address] [address] [place] MCV (RBC) [Entitic vol] 108.9 fL High 79.0-98.0 [facility] Comment on above: Performed By: #### B MP3M, HEMDF, MG3, PHOS3, PCAL #### [address] [place] [address] [place], [place] Platelet mean volume (Bld) [Entitic vol] 6.9 fL Low 7.4-12.4 [facility] Comment on above: Result Comment: MPV is a calculated measurement using platelet volume ratio. Performed By: #### B MP3M, HEMDF, MG3, PHOS3, PCAL #### [place] [address] [place], [place] Platelets (Bld) [#/Vol] 219 10*3/uL Normal 140-440 [facility] Comment on above: Performed By: #### B MP3M, HEMDF, MG3, PHOS3, PCAL #### [place] [address] [address] [place] RBC (Bld) [#/Vol] 3.78 10*6/uL Low 3.80-5.20 [facility] Comment on above: Performed By: #### B MP3M, HEMDF, MG3, PHOS3, PCAL #### [place] [address] [place] WBC (Bld) [#/Vol] 8.4 10*3/uL Normal 3.6-10.7 [facility] Comment on above: Performed By: #### B MP3M, HEMDF, MG3, PHOS3, PCAL #### [place] [address] [place], [place] Hepatic Functionon 2 ALT [Catalytic activity/Vol] 14 U/L Normal 0-34 [facility] Comment on above: Result Comment: The ALT test is performed by an updated assay method. Please note that the reference intervals have been changed and are now sex specific. Performed By: #### B MP3M, HEMDF, MG3, PHOS3, PCAL #### [facility] [address] ALP [Catalytic activity/Vol] 56 U/L Normal 38-126 [facility] Comment on above: Result Comment: Slig htly hemolysed, interpret with caution. Performed By: #### B MP3M, HEMDF, MG3, PHOS3, PCAL #### [place] [address] [address] [place] AST [Catalytic activity/Vol] 36 U/L Normal 15-46 [facility] Comment on above: Result Comment: Slig htly hemolysed, interpret with caution. Performed By: #### B MP3M, HEMDF, MG3, PHOS3, PCAL #### [place] [address] [address] [place] Bilirubin [Mass/Vol] 0.8 mg/dL Normal 0.2-1.3 [facility] Comment on above: Performed By: #### B MP3M, HEMDF, MG3, PHOS3, PCAL #### [place] [address] [address] [place] Bilirubin.indirect [Mass/Vol] 0.0 mg/dL Normal 0.0-0.3 [facility] Comment on above: Performed By: #### B MP3M, HEMDF, MG3, PHOS3, PCAL #### [place] [address] [address] [place] Protein [Mass/Vol] 6.4 g/dL Normal 6.3-8.2 [facility] Comment on above: Result Comment: Slig htly hemolysed, interpret with caution. Performed By: #### B MP3M, HEMDF, MG3, PHOS3, PCAL #### [place] [address] [address] [place] Albumin [Mass/Vol] 3.5 g/dL Normal 3.5-5.0 [facility] Comment on above: Result Comment: Slig htly hemolysed, interpret with caution. Performed By: #### B MP3M, HEMDF, MG3, PHOS3, PCAL #### [address] [address] Hepatic Function Panelon Albumin [Mass/Vol] 3.5 g/dL 3.5 - 5 g/dL [facility] Work Phone: [phone] ALP (Bld) [Catalytic activity/Vol] 56 U/L 38 - 126 U/L [facility] Work Phone: [phone] ALT [Catalytic activity/Vol] 14 U/L 0 - 34 U/L [facility] Work Phone: [phone] AST [Catalytic activity/Vol] 36 U/L 15 - 46 U/L [facility] Work Phone: [phone] Bilirubin [Mass/Vol] 0.8 mg/dL 0.2 - 1 .3 mg/dL [facility] Work Phone: [phone] Bilirubin.indirect [Mass/Vol] 0.0 mg/dL 0 - 0.3 mg/dL [facility] Work Phone: [phone] Free PSA/Total PSA [Mass fraction] 6.4 g/dL 6.3 - 8.2 g/dL [facility] Work Phone: [phone] Work Phone: [phone] INR in Blood by Coagulation assayon 12-27-2021 INR Coag (Bld) [Relative time] 1.0 {INR} [facility] Work Phone: Ketones Test strip Ql (U)on 12-27-2021 Ketones Ql (U) Negative Negative [facility] Work Phone: Laboratory - Chemistry and C hemistry - challengeon 12-27-2021 ALP [Catalytic activity/Vol] 86 U/L 45-117 [facility] Work Phone: ALT [Catalytic activity/Vol] 13 U/L 13-56 [facility] Work Phone: CO2 [Moles/Vol] 19.0 mmol/L 21.0-32.0 [facility] Work Phone: Globulin (S) [Mass/Vol] 3.5 g/dL 2.2-4.2 [facility] Work Phone: Lipase [Catalytic activity/Vol] 128 U/L 73-393 [facility] Work Phone: Urea nitrogen/Creatinine [Mass ratio] 8.9 mg/mg 10-20 [facility] Work Phone: Laboratory - Coagulationon 0 12-27-2021 aPTT Coag (Bld) [Time] 21.0 s 24.1-36.2 mine Work Phone: PT Coag (PPP) [Time] 13.2 s 11.7-14.9 [facility] Work Phone: Laboratory - Hematology and Cell countson 12-27-2021 Erythrocyte distribution width (RBC) [Entitic vol] 61.1 fL 35.1-43.9 [facility] Work Phone: Erythrocyte distribution width (RBC) [Ratio] 15.2 % 11.6-14.6 [facility] Work Phone: [phone] Immature granulocytes/100 WBC (Bld) 0.300 % 0.0-0.9 [facility] Work Phone: Comment on above: IG% - Immature Granu locytes (promyelocytes, myelocytes and metamyelocytes) > 1% indicates that a LEFT SHIFT is Present. MCH (RBC) [Entitic mass] 36.1 pg 27.0-32.0 [facility] Work Phone: Nucleated RBC/100 WBC (Bld) [Ratio] 0 % 0-5 [facility] Work Phone: [phone] Lactic Acidon 12-27-2021 Lactate [Moles/Vol] 4.4 mmol/L Critically high 0.7-2.0 [facility] Comment on above: Performed By: #### B MP3M, HEMDF, MG3, PHOS3, PCAL #### [facility] [employer] [address] [place] [phone] Interpretation and review of laboratory results Abnormal [facility] Work Phone: Lactate [Moles/Vol] 4.4 mmol/L Critically high 0.7 - 2 mmol/L [facility] Work Phone: Lactate [Moles/Vol] 3.3 mmol/L Critically high 0.7-2.0 [facility] Comment on above: Result Comment: Crit ica Panic Lactate has fallen below the [facility] CCL/ED Panic Call Protocol. For [facility] ED patients ONLY the Lactate Levels greater than 2.0 and less than or equal to 4.0 mmol/L fall under the Panic Call Policy. Performed By: #### B MP3M, HEMDF, MG3, PHOS3, PCAL #### [address] [phone] Interpretation and review of laboratory results Abnormal [facility] Work Phone: Lactate [Moles/Vol] 3.3 mmol/L Critically high 0.7 - 2 mmol/L [facility] Work Phone: [facility] Work Phone: MCHC Auto (RBC) [Mass/Vol]on 12-27-2021 MCHC (RBC) [Mass/Vol] 33.2 g/dL 32-36 [facility] Work Phone: Manual Diffon 12-27-2021 Abs Baso Cnt 0.0 10*3/uL Normal 0.0-0.2 [facility] Comment on above: Performed By: #### B MP3M, HEMDF, MG3, PHOS3, PCAL #### [facility] [employer]. [address] [address] Abs Eosin Cnt 0.0 10*3/uL Normal 0.0-0.5 [facility] Comment on above: Performed By: #### B MP3M, HEMDF, MG3, PHOS3, PCAL #### [address] [address] Abs Lymph Cnt 0.3 10*3/uL Low 1.1-4.5 [facility] Comment on above: Performed By: #### B MP3M, HEMDF, MG3, PHOS3, PCAL #### [place] [address] [address] [place] Abs Monocyte Cnt 0.1 10*3/uL Low 0.2-1.1 [facility] Comment on above: Performed By: #### B MP3M, HEMDF, MG3, PHOS3, PCAL #### [place] [address] [address] [place] Abs Neutrophile Cnt 8.0 10*3/uL Normal 2.2-8.2 [facility] Comment on above: Performed By: #### B MP3M, HEMDF, MG3, PHOS3, PCAL #### [place] [address] [place] Anisocytosis Slight Normal [facility] Comment on above: Performed By: #### B MP3M, HEMDF, MG3, PHOS3, PCAL #### [place] [address] [address] [place] Bands 35 % High 0-3 [facility] Comment on above: Performed By: #### B MP3M, HEMDF, MG3, PHOS3, PCAL #### [place] [address] [place] Basophils 0 % Normal 0-2 [facility] Comment on above: Performed By: #### B MP3M, HEMDF, MG3, PHOS3, PCAL #### [place] [address] [address] [place] Cells counted 100 Normal [facility] Comment on above: Performed By: #### B MP3M, HEMDF, MG3, PHOS3, PCAL #### [address] Eosinophils 0 % Low 1-6 [facility] Comment on above: Performed By: #### B MP3M, HEMDF, MG3, PHOS3, PCAL #### [place] [address] [place] Lymphocytes 4 % Low 20-40 [facility] Comment on above: Performed By: #### B MP3M, HEMDF, MG3, PHOS3, PCAL #### [facility] [address] Macrocytosis Slight Normal [facility] Comment on above: Performed By: #### B MP3M, HEMDF, MG3, PHOS3, PCAL #### [facility] [address] [place] Monocytes 1 % Low 2-10 [facility] Comment on above: Performed By: #### B MP3M, HEMDF, MG3, PHOS3, PCAL #### [facility] [address] [place] RBC Morphology ABNORMAL Normal [facility] Comment on above: Performed By: #### B MP3M, HEMDF, MG3, PHOS3, PCAL #### [facility] [address] Seg Neutrophils 60 % Normal 40-80 [facility] Comment on above: Performed By: #### B MP3M, HEMDF, MG3, PHOS3, PCAL #### [facility] [address] Manual Differentialon 2021 Absolute Baso # 0.0 10*3/uL 0 - 0.2 10*3/uL [facility] Work Phone: Absolute Eos # 0.0 10*3/uL 0 - 0.5 10*3/uL [employer] [facility] Work Phone: [phone] Absolute Lymph # 0.3 10*3/uL Low 1.1 - 4.5 10*3/uL [facility] Work Phone: [phone] Absolute [place] # 0.1 10*3/uL Low 0.2 - 1.1 10*3/uL [facility] Work Phone: [phone] Absolute Neut # 8.0 10*3/uL 2.2 - 8.2 10*3/uL [facility] Work Phone: [phone] Anisocytosis Slight [facility] Work Phone: Bands 35 % High 0 - 3 % [facility] Work Phone: Basophils/100 WBC (Bld) 0 % 0 - 2 % [facility] Work Phone: Eosinophils/100 WBC (Bld) 0 % Low 1 - 6 % [facility] Work Phone: Interpretation and review of laboratory results Abnormal [facility] Work Phone: Lymphocytes/100 WBC (Bld) 4 % Low 20 - 40 % [facility] Work Phone: Macrocytosis Slight [facility] Work Phone: Monocytes/100 WBC (Bld) 1 % Low 2 - 10 % [facility] Work Phone: RBC (Bld) [#/Vol] ABNORMAL [facility] Work Phone: [phone] Seg Neutrophils 60 % 40 - 80 % [facility] Work Phone: [phone] TOTAL CELLS COUNTED 100 [facility] Work Phone: [facility] Work Phone: Mucus LM Ql (Urine sed)on Mucus Ql (Urine sed) 0 SEEN /hpf [facility] Work Phone: Nitrite Test strip Ql (U)on 12-27-2021 Nitrite Ql (U) Negative Negative [facility] Work Phone: No Panel Informationon 12-27 [facility] Work Phone: Estimated Creatinine Clearance Calc 39.50 ml/min [facility] Work Phone: Estimated GFR (MDRD) Amer 69 mL/min >60 [facility] Work Phone: Comment on above: GFR Calc Estimated GFR (MDRD) Non-Af Amer 57 mL/min >60 [facility] Work Phone: Comment on above: Non- GFR Calc POCT COVID-19, Antigenon SARS-CoV-2 Nucleocapsid Antigen Negative Negative NA [facility] Platelets bldon 12-27-2021 Platelets (Bld) [#/Vol] 243 10*3/uL 150-450 [facility] Work Phone: Protein Test strip Ql (U)on 12-27-2021 Protein Ql (U) Negative Negative [facility] Work Phone: Prothrombin Timeon INR 1.0 Normal 0.9-1.1 [facility] Comment on above: Result Comment: Darion mmended Anticoagulant Therapy: SEE BELOW ----- INR of 2.0 - 3.0 : - Prophylaxis of Venous Thrombosis (high-risk surgery) - Treatment of Venous Thrombosis - Treatment of Pulmonary Embolism (Includes tissue heart valves, Acute Myocardial Infarction to prevent systemic embolism, Valvular Heart Disease, and Atrial Fibrillation) ----- INR of 2.5 - 3.5 : - Mechanical Prosthetic Valves (high risk) - If oral anticoagulant therapy is used to prevent Myocardial Infarction Performed By: #### B MP3M, HEMDF, MG3, PHOS3, PCAL #### [place] [address] [place] [address] PT Coag (PPP) [Time] 10.4 s Normal 9.0-12.0 [facility] Comment on above: Result Comment: . Performed By: #### B MP3M, HEMDF, MG3, PHOS3, PCAL #### [place] [address] [place] [address] Protime-INRon 12-27-2021 INR Coag (Bld) [Relative time] 1.0 {INR} [facility] Work Phone: PT Coag (PPP) [Time] 10.4 s 9 - 12 s [facility] Work Phone: [facility] Work Phone: Respiratory Panel, Molecular , with COVID-19 (Restricted: peds pts or suitable admitted adults)on 12-27-2021 Respiratory Panel Molecular, with COVID [facility] SARS-CoV-2 Antigenon 022 SARS-CoV-2 Antigen Negative Normal Negative [facility] Comment on above: Order Comment: ORDER WAS CANCELLED 12/27/21 17:19, Wrong test ordered. 12/27/2021 17:19. Result Comment: A negative result does not rule out the possibility of SARS-CoV-2 infection. NAAT-based methods should be considered for symptomatic patients presenting greater than seven days after onset of symptoms. Method: Lateral flow immunoassay. Fact sheets for healthcare providers and patients can be found at the following sites: https://www.[employer].gov/media/758423/download https://www.[employer].gov/media/235984/download Performed By: #### H EMDF, BMP3M #### [address] [address] Serum or plasma acetone fiona urement (mass/volume)on 12-27-2021 Acetone [Mass/Vol] Negative NEG [facility] Work Phone: Serum or plasma albumin fiona urement (mass/volume)on 12-27-2021 Albumin [Mass/Vol] 3.2 g/dL 3.2-5.0 [facility] Work Phone: Serum or plasma calcium fiona urement (mass/volume)on 12-27-2021 Calcium [Mass/Vol] 8.1 mg/dL 8.5-10.1 [facility] Work Phone: Serum or plasma creatinine m easurement (mass/volume)on 12-27-2021 Creatinine [Mass/Vol] 1.01 mg/dL 0.55-1.02 [facility] Work Phone: Comment on above: The validity of the calculated GFR & GFRAA in patients over 70 years has not been determined. Clinical correlation is essential. Serum or plasma urea nitroge n measurement (mass/volume)on 12-27-2021 Urea nitrogen [Mass/Vol] 9 mg/dL 7-18 [facility] Work Phone: Squamous epithelial cells de tection in urine sediment by light microscopyon 12-27-2021 Epithelial cells.squamous LM Ql (Urine sed) 0 SEEN /hpf 5-10 [facility] Work Phone: Thin prep Papanicolaou smear with manual screeningon 12-27-2021 Thin prep Papanicolaou smear with manual screening 11 U/L 15-37 [facility] Work Phone: [phone] Thin prep Papanicolaou smear with manual screening 12 5-15 [facility] Work Phone: Urine blood detectionon 09-0 RBC Ql (U) Negative Negative [facility] Work Phone: RBC Ql (U) 0 SEEN /hpf 0-5 [facility] Work Phone: Urine clarityon 12-27-2021 Clarity (U) Clear Clear [facility] Work Phone: Urine color determinationon 12-27-2021 Color (U) Yellow Yellow [facility] Work Phone: Urine glucose detectionon Glucose Ql (U) Normal mg/dl Normal [facility] Work Phone: Urine leukocyte esterase det ection by dipstickon 12-27-2021 Leukocyte esterase Test strip Ql (U) Negative Negative [facility] Work Phone: Urine pHon 12-27-2021 pH (U) 6.0 [pH] 5.0 - 8.0 [facility] Work Phone: Urine sediment bacteria coun t by microscopy (number/high power field)on 12-27-2021 Bacteria LM.HPF (Urine sed) [#/Area] RARE /hpf None Seen [facility] Work Phone: Urine specific gravity measu rementon 12-27-2021 Specific gravity (U) [Rel density] 1.015 1.002-1.030 [facility] Work Phone: Urobilinogen Auto test strip Ql (U)on 12-27-2021 Urobilinogen Ql (U) Normal mg/dl Normal [facility] Work Phone: CNPNon 12-07-2021 CNPN Telephone ([facility]) JAIMIE AVENDANO ([id number]) 1945 F Date Time Provider Department 12/07/21 MICHAEL COX During your visit today, we recorded the following information about you: Graciela Chamorro LPN 12/07/2021 7:17 PM Signed FMLA in office for patient daughter (Jasmin Zaidi). Placed on Dr Cox's desk for review. Michael Cox MD 12/08/2021 5:01 PM Signed Is this for intermittent leave? If so, how often on average does she need her and for how long. Is this for a continuous leave? Mandy Lamar LPN 12/08/2021 5:09 PM Signed TC to Jasmin, she states its about 4x year or 1-2 times every 6 months This is intermittent leave Michael Cox MD 12/09/2021 12:20 PM Signed done Jesika Rosales 12/09/2021 1:09 PM Signed Forms completed and faxed back to [facility]. Jesika Rosales Allergies As of Date: 12/07/2021 Noted Allergy Reaction LATEX 11/19/2008 Z LADAN (AZITHROMYCIN) 01/11/2008 Comments: did not work ZIAC (BISOPROLOL-HYDROCHLO ROTHIAZ*01/11/2008 Comments: did not work Date Reviewed: 07/11/2021 Reviewed by: Graciela Chamorro LPN - Fully Assessed Reason for Visit: [place] Paperwork [4185] Prescriptions as of 12/09/2021 - levothyroxine (SYNTHROID) 50 mcg tablet Take 1 tablet by mouth once daily. Take on empty stomach. For thyroid. - ARIPiprazole (ABILIFY) 2 mg tablet Take 1 tablet by mouth once daily. - mirtazapine (REMERON) 15 mg tablet Take 1 tablet by mouth daily at bedtime. - albuterol HFA (VENTOLIN HFA) 90 mcg/actuation inhaler Inhale 2 Puffs as instructed every 4 hours as needed for wheezing/shortness of breath. - tiotropium bromide (SPIRIVA RESPIMAT) 2.5 mcg/actuation inhaler Inhale 2 Puffs as instructed once daily. Inhale two puffs once daily. Problem List As Of Date 12/07/2021 Noted Resolved Essential hypertension [I10] DIABETES MELLITUS TYPE II-UNCOMPL [E11.9] 01/30/2014 REGIONAL ENTERITIS NOS [K50.90] HYPOPOTASSEMIA [E87.6] SKIN SENSATION DISTURB [R20.9] HYPERLIPIDEMIA NEC/NOS [E78.5] MALAISE AND FATIGUE NEC [R53.81, R53.83] ANEMIA NOS [D64.9] 02/06/2008 Hepatic cirrhosis (HCC) [K74.60] 12/03/2008 Other Ascites [R18.8] 12/09/2008 Tobacco abuse [Z72.0] 01/17/2014 Hypothyroidism [E03.9] 05/29/2014 Difficult airway [T88.4XXA] 07/02/2014 Neuropathy (HCC) [G62.9] 11/17/2017 Encounter Status:Closed by JESIK[facility] ([facility]) JAIMIE AVENDANO ([id number]) 1945 F Date Time Provider Department 11/20/21 MICHAEL COX During your visit today, we recorded the following information about you: Cailin Castañeda, RN 11/20/2021 8:36 AM Signed Pts daughter called in and reports her mother has been upset all last week. She reports mother is saying, "I can't take care of myself and I want to go to a Senior Living.". Daughter said she is not sure what she needs to do and would like some help. Let her know I would send message through to provider and SW. Michael Cox MD 11/20/2021 8:38 AM Signed Is there something acute going on? ie-has she suddenly deteriorated, best place to evaluate why would be ER Elizabeth Guido Ma 11/20/2021 9:07 AM Signed Call to daughter, [place]. She feels the main issue is her feet, having vascular issues and losing toes. Worried about getting around. Daughter, states yes she thinks she's deteriorated not getting around well with using walker. Calling her daily for the past couple weeks crying. Daughter agreeable to ER [facility] to see if placement could be done at [place]. Elizabeth Guido Ma Allergies As of Date: 11/20/2021 Noted Allergy Reaction LATEX 11/19/2008 Z LADAN (AZITHROMYCIN) 01/11/2008 Comments: did not work ZIAC (BISOPROLOL-HYDROCHLO ROTHIAZ*01/11/2008 Comments: did not work Date Reviewed: 07/11/2021 Reviewed by: Graciela Chamorro LPN - Fully Assessed Reason for Visit: Patient Update [1234] Patient Question [9447] Help with Senior Living [Other] Prescriptions as of 04/16/2022 - levothyroxine (SYNTHROID) 50 mcg tablet Take 1 tablet by mouth once daily. Take on empty stomach. For thyroid. - ARIPiprazole (ABILIFY) 2 mg tablet Take 1 tablet by mouth once daily. - mirtazapine (REMERON) 15 mg tablet Take 1 tablet by mouth daily at bedtime. - albuterol HFA (VENTOLIN HFA) 90 mcg/actuation inhaler Inhale 2 Puffs as instructed every 4 hours as needed for wheezing/shortness of breath. - tiotropium bromide (SPIRIVA RESPIMAT) 2.5 mcg/actuation inhaler Inhale 2 Puffs as instructed once daily. Inhale two puffs once daily. Problem List As Of Date 11/20/2021 Noted Resolved Essential hypertension [I10] DIABETES MELLITUS TYPE II-UNCOMPL [E11.9] 01/30/2014 REGIONAL ENTERITIS NOS [K50.90] HYPOPOTASSEMIA [E87.6] SKIN SENSATION DISTURB [R20.9] HYPERLIPIDEMIA NEC/NOS [E78.5] MALAISE AND FATIGUE NEC [R53.81, R53.83] ANEMIA NOS [D64.9] 02/06/2008 Hepatic cirrhosis (HCC) [K74.60] 12/03/2008 Other Ascites [R18.8] 12/09/2008 Tobacco abuse [Z72.0] 01/17/2014 Hypothyroidism [E03.9] 05/29/2014 Difficult airway [T88.4XXA] 07/02/2014 Neuropathy (HCC) [G62.9] 11/17/2017 Encounter Status:Closed by CAILIN CASTAÑEDA on 04/16/22 [facility] JAIMIE AVENDANO ([id number]) 1945 F Date Time Provider Department 07/16/21 MICHAEL COX [facility] During your visit today, we recorded the following information about you: Bernarda Eisenberg LPN 07/16/2021 10:03 AM Signed Darlene with [facility] out of [facility] called to see if you received a fax they sent yesterday at pt's request to have cancer screening done at her home per Darlene. 1. Did you receive fax form? IF not phone [phone]. 2. Require form to be fax back with Doctor's signature. Bernarda Chamorro LPN 07/16/2021 2:24 PM Signed Patient declines at this time. I spoke to patient to family about this testing. If decides that wants to complete testing will do this through [facility] lab. Faxed this paperwork back. Allergies As of Date: 07/16/2021 Noted Allergy Reaction LATEX 11/19/2008 Z LADAN (AZITHROMYCIN) 01/11/2008 Comments: did not work ZIAC (BISOPROLOL-HYDROCHLO ROTHIAZ*01/11/2008 Comments: did not work Date Reviewed: 07/11/2021 Reviewed by: Graciela Chamorro LPN - Fully Assessed Reason for Visit: Forms [913] Prescriptions as of 07/16/2021 - levothyroxine (SYNTHROID) 50 mcg tablet Take 1 tablet by mouth once daily. Take on empty stomach. For thyroid. - ARIPiprazole (ABILIFY) 2 mg tablet Take 1 tablet by mouth once daily. - mirtazapine (REMERON) 15 mg tablet Take 1 tablet by mouth daily at bedtime. - albuterol HFA (VENTOLIN HFA) 90 mcg/actuation inhaler Inhale 2 Puffs as instructed every 4 hours as needed for wheezing/shortness of breath. - tiotropium bromide (SPIRIVA RESPIMAT) 2.5 mcg/actuation inhaler Inhale 2 Puffs as instructed once daily. Inhale two puffs once daily. Problem List As Of Date 07/16/2021 Noted Resolved Essential hypertension [I10] DIABETES MELLITUS TYPE II-UNCOMPL [E11.9] 01/30/2014 REGIONAL ENTERITIS NOS [K50.90] HYPOPOTASSEMIA [E87.6] SKIN SENSATION DISTURB [R20.9] HYPERLIPIDEMIA NEC/NOS [E78.5] MALAISE AND FATIGUE NEC [R53.81, R53.83] ANEMIA NOS [D64.9] 02/06/2008 Hepatic cirrhosis (HCC) [K74.60] 12/03/2008 Other Ascites [R18.8] 12/09/2008 Tobacco abuse [Z72.0] 01/17/2014 Hypothyroidism [E03.9] 05/29/2014 Difficult airway [T88.4XXA] 07/02/2014 Neuropathy (HCC) [G62.9] 11/17/2017 Encounter Status:Closed by GRACIELA CHAMORRO LPN on 07/16/21 Normal [facility] Absolute lymphocyte counton 07-11-2021 Lymphocytes Auto (Unsp spec) [#/Vol] 0.73 10*3/uL 0.83-4.51 [facility] Work Phone: Basophil percentageon 2021 Basophils/100 WBC (Bld) 0.6 % 0-1 [facility] Work Phone: Bilirubin [Mass/Vol] 0.30 mg/dL 0.20-1.00 [facility] Work Phone: Comment on above: For patients on eltr ombopag therapy, use of Dimension Mays TBIL is not recommended. Chloride [Moles/Vol] 109 mmol/L 98-107 [facility] Work Phone: Eosinophils/100 WBC (Bld) 2.5 % 0-5 [facility] Work Phone: Glucose [Mass/Vol] 103 mg/dL 74-106 [facility] Work Phone: Comment on above: Fasting Glucose resu lt from 100 to 125 mg/dL suggests IMPAIRED HOMEOSTASIS per A.D.A. criteria. Neutrophils (Bld) [#/Vol] 3.4 10*3/uL 2.0-7.7 [facility] Work Phone: Neutrophils/100 WBC (Bld) 70.7 % 47-70 [facility] Work Phone: Potassium [Moles/Vol] 4.1 mmol/L 3.5-5.1 [facility] Work Phone: Protein [Mass/Vol] 6.9 g/dL 6.4-8.2 [facility] Work Phone: Sodium [Moles/Vol] 138 mmol/L 136-145 [facility] Work Phone: WBC (Bld) [#/Vol] 4.8 10*3/uL 4.4-11.0 [facility] Work Phone: Blood erythrocytes count (nu mber/volume)on 07-11-2021 RBC (Bld) [#/Vol] 4.14 10*6/uL 4.2-5.4 [facility] Work Phone: Blood hemoglobin measurement (mass/volume)on 07-11-2021 Hemoglobin (Bld) [Mass/Vol] 14.7 g/dL 12.0-15.0 [facility] Work Phone: Blood lymphocytes/100 leukoc yteson 07-11-2021 Lymphocytes/100 WBC (Bld) 15.3 % 19-41 [facility] Work Phone: Blood monocytes/100 leukocyt eson 07-11-2021 Monocytes/100 WBC (Bld) 10.5 % 0-10 [facility] Work Phone: Blood platelet mean volumeon 07-11-2021 Platelet mean volume (Bld) [Entitic vol] 9.0 fL 6.2-12.0 [facility] Work Phone: CNOVon 07-11-2021 CNOV Office Visit (FAMPWS ) JAIMIE AVENDANO ([id number]) 1945 F Date Time Provider Department 07/11/21 10:40 AM MICHAEL COX During your visit today, we recorded the following information about you: Pulse Blood pressure Weight 72/minute 158/98 52.6 kg Michael Cox MD 07/11/2021 11:14 AM Signed No charge for visit today. Family brought her in because in the last two weeks, her toes on both feet have turned blue cold and are extremely painful. 8/10. Even with elevation, has several toes on both feet that are very dusky, blue, cold to touch and painful. Has palpable dorsalis pedis pulses. No redness or warmth. I worry about acute ischemia given her hx and I have absolutely no way of evaluating that over the weekend. To [facility] ER. ER passport completed for transfer of care. Referring Provider: SELF [[id number]] Allergies As of Date: 07/11/2021 Noted Allergy Reaction LATEX 11/19/2008 Z LADAN (AZITHROMYCIN) 01/11/2008 Comments: did not work ZIAC (BISOPROLOL-HYDROCHLO ROTHIAZ*01/11/2008 Comments: did not work Date Reviewed: 07/11/2021 Reviewed by: Graciela Chamorro LPN - Fully Assessed Reason for Visit: Pain (foot) [760] Cmt: toes are blue-needs nails trimmed Primary Visit Diagnosis:Foot pain, bilateral [M79.671, M79.672] Prescriptions as of 07/11/2021 - levothyroxine (SYNTHROID) 50 mcg tablet Take 1 tablet by mouth once daily. Take on empty stomach. For thyroid. - ARIPiprazole (ABILIFY) 2 mg tablet Take 1 tablet by mouth once daily. - mirtazapine (REMERON) 15 mg tablet Take 1 tablet by mouth daily at bedtime. - albuterol HFA (VENTOLIN HFA) 90 mcg/actuation inhaler Inhale 2 Puffs as instructed every 4 hours as needed for wheezing/shortness of breath. - tiotropium bromide (SPIRIVA RESPIMAT) 2.5 mcg/actuation inhaler Inhale 2 Puffs as instructed once daily. Inhale two puffs once daily. Problem List As Of Date 07/11/2021 Noted Resolved Essential hypertension [I10] DIABETES MELLITUS TYPE II-UNCOMPL [E11.9] 01/30/2014 REGIONAL ENTERITIS NOS [K50.90] HYPOPOTASSEMIA [E87.6] SKIN SENSATION DISTURB [R20.9] HYPERLIPIDEMIA NEC/NOS [E78.5] MALAISE AND FATIGUE NEC [R53.81, R53.83] ANEMIA NOS [D64.9] 02/06/2008 Hepatic cirrhosis (HCC) [K74.60] 12/03/2008 Other Ascites [R18.8] 12/09/2008 Tobacco abuse [Z72.0] 01/17/2014 Hypothyroidism [E03.9] 05/29/2014 Difficult airway [T88.4XXA] 07/02/2014 Neuropathy (HCC) [G62.9] 11/17/2017 Encounter Status:Closed by MICHAEL COX on 07/11/21 Normal [facility] Determination of erythrocyte mean corpuscular volume (MCV)on 07-11-2021 MCV (RBC) [Entitic vol] 101.9 fL 81-99 [facility] Work Phone: Hematocrit Auto (Bld) [Volum e fraction]on 07-11-2021 Hematocrit (Bld) [Volume fraction] 42.2 % 37-47 [facility] Work Phone: [phone] Laboratory - Chemistry and C hemistry - challengeon 07-11-2021 ALP [Catalytic activity/Vol] 104 U/L 45-117 [facility] Work Phone: [phone] ALT [Catalytic activity/Vol] 18 U/L 13-56 [facility] Work Phone: [phone] CO2 [Moles/Vol] 27.0 mmol/L 21.0-32.0 [facility] Work Phone: [phone] Free T4 [Mass/Vol] 0.95 ng/dL 0.76-1.46 [facility] Work Phone: [phone] Globulin (S) [Mass/Vol] 3.3 g/dL 2.2-4.2 [facility] Work Phone: [phone] Urea nitrogen/Creatinine [Mass ratio] 11.9 mg/mg 10-20 [facility] Work Phone: [phone] Laboratory - Hematology and Cell countson 07-11-2021 Erythrocyte distribution width (RBC) [Entitic vol] 51.2 fL 35.1-43.9 [facility] Work Phone: [phone] Erythrocyte distribution width (RBC) [Ratio] 13.6 % 11.6-14.6 [facility] Work Phone: [phone] Immature granulocytes/100 WBC (Bld) 0.400 % 0.0-0.9 [facility] Work Phone: [phone] Comment on above: IG% - Immature Granu locytes (promyelocytes, myelocytes and metamyelocytes) > 1% indicates that a LEFT SHIFT is Present. MCH (RBC) [Entitic mass] 35.5 pg 27.0-32.0 [facility] Work Phone: [phone] Nucleated RBC/100 WBC (Bld) [Ratio] 0 % 0-5 [facility] Work Phone: [phone] MCHC Auto (RBC) [Mass/Vol]on 07-11-2021 MCHC (RBC) [Mass/Vol] 34.8 g/dL 32-36 [facility] Work Phone: No Panel Informationon 07-11 Estimated Creatinine Clearance Calc 39.94 ml/min [facility] Work Phone: Estimated GFR (MDRD) Amer 96 mL/min >60 [facility] Work Phone: Comment on above: GFR Calc Estimated GFR (MDRD) Non-Af Amer 79 mL/min >60 [facility] Work Phone: Comment on above: Non- GFR Calc Free Triiodothyronine (T3) pg/dL 2.4 pg/mL 2.18-3.98 [facility] Work Phone: Thyroid Stimulating Hormone (TSH) 3.54 uIU/mL 0.358-3.74 [facility] Work Phone: Platelets bldon 07-11-2021 Platelets (Bld) [#/Vol] 209 10*3/uL 150-450 [facility] Work Phone: Serum or plasma albumin fiona urement (mass/volume)on 07-11-2021 Albumin [Mass/Vol] 3.6 g/dL 3.2-5.0 [facility] Work Phone: Serum or plasma albumin/glob ulin mass ratioon 07-11-2021 Albumin/Globulin [Mass ratio] 1.1 {ratio} 0.9-2.4 [facility] Work Phone: Serum or plasma calcium fiona urement (mass/volume)on 07-11-2021 Calcium [Mass/Vol] 8.6 mg/dL 8.5-10.1 [facility] Work Phone: Serum or plasma creatinine m easurement (mass/volume)on 07-11-2021 Creatinine [Mass/Vol] 0.76 mg/dL 0.55-1.02 [facility] Work Phone: Comment on above: The validity of the calculated GFR & GFRAA in patients over 70 years has not been determined. Clinical correlation is essential. Serum or plasma urea nitroge n measurement (mass/volume)on 07-11-2021 Urea nitrogen [Mass/Vol] 9 mg/dL 7-18 [facility] Work Phone: Thin prep Papanicolaou smear with manual screeningon 07-11-2021 Thin prep Papanicolaou smear with manual screening 13 U/L 15-37 [facility] Work Phone: Thin prep Papanicolaou smear with manual screening 2 5-15 [facility] Work Phone: COVID-19 virus antigen assay SARS-CoV-2 (COVID-19) Ag IA.rapid Ql (Resp) [facility] Work Phone: Vital Signs Date Time Vital Sign Value Performing Clinician Faci lity 11-06-2024 14:57-0400 Body height 160.[address] Viviana Mcgee MD Work Phone: [facility] 06-27-2024 08:37-0500 Body temperature 98.2 [degF] Dr. Viviana Mcgee MD Work Phone: [facility] 06-27-2024 08:37-0500 Body weight 67.[address] Viviana Mcgee MD Work Phone: [facility] 06-27-2024 08:37-0500 Diastolic blood pressure 90 mm[Hg] Dr. Viviana Mcgee MD Work Phone: [facility] 06-27-2024 08:37-0500 Heart rate 80 /min Dr. Viviana Mcgee MD Work Phone: [facility] 06-27-2024 08:37-0500 Respiratory rate 14 /min Dr. Viviana Mcgee MD Work Phone: [facility] 06-27-2024 08:37-0500 SaO2% (BldA) [Mass fraction] 98 % Dr. Viviana Mcgee MD Work Phone: [facility] 06-27-2024 08:37-0500 Systolic blood pressure 167 mm[Hg] Dr. Viviana Mcgee MD Work Phone: [facility] 04-27-2023 15:25-0500 Body temperature 98 [degF] Dr. Michael Cox Work Phone: 9(791)671-409444 [place] [address] 04-27-2023 15:25-0500 Body weight 68.[address] Michael Cox Work Phone: 2(983)138-239486 [place] [address] 04-27-2023 15:25-0500 Diastolic blood pressure 77 mm[Hg] Dr. Michael Cox Work Phone: 2(985)716-952886 [place] [address] 04-27-2023 15:25-0500 Heart rate 63 /min Dr. Michael Cox Work Phone: 2(060)486-901686 [place] [address] 04-27-2023 15:25-0500 Respiratory rate 16 /min Dr. Michael Cox Work Phone: 0(441)190-589186 [place] [address] 04-27-2023 15:25-0500 SaO2% (BldA) [Mass fraction] 98 % Dr. Michael Cox Work Phone: 8(024)690-686086 [place] [address] 04-27-2023 15:25-0500 Systolic blood pressure 167 mm[Hg] Dr. Michael Cox Work Phone: 8(170)090-896486 [place] [address] 02-24-2023 11:52-0400 Body height 160.[address] Michael Cox Work Phone: 6(653)601-836744 [place] [address] 01-30-2023 18:46-0400 Diastolic blood pressure 83 mm[Hg] Dr. Michael Cox Work Phone: 4(954)833-110186 [place] [address] 01-30-2023 18:46-0400 Heart rate 63 /min Dr. Michael Cox Work Phone: 9(933)001-982544 [place] [address] 01-30-2023 18:46-0400 Respiratory rate 14 /min Dr. Michael Cox Work Phone: 9(466)521-980286 [place] [address] 01-30-2023 18:46-0400 SaO2% (BldA) [Mass fraction] 97 % Dr. Michael Cox Work Phone: 2(620)153-318344 [place] [address] 01-30-2023 18:46-0400 Systolic blood pressure 162 mm[Hg] Dr. Michael Cox Work Phone: 4(758)407-299586 [place] [address] 01-30-2023 16:40-0400 Body height 160.[address] Michael Cox Work Phone: 3(917)945-053186 [place] [address] 01-30-2023 16:40-0400 Body mass index (BMI) [Ratio] 26.7 kg/m2 Dr. Michael Cox Work Phone: 8(695)857-509286 [place] [address] 01-30-2023 16:40-0400 Body temperature 97.7 [degF] Dr. Michael Cox Work Phone: 6(888)003-451586 [place] [address] 01-30-2023 16:40-0400 Body weight 68.[address] Michael Cox Work Phone: 8(522)040-641386 [place] [address] 08-12-2022 15:01-0400 Body mass index (BMI) [Ratio] 25.8 kg/m2 Dr. Michael Cox Work Phone: 7(252)595-151986 [place] [address] 08-12-2022 15:01-0400 Body temperature 98.2 [degF] Dr. Michael Cox Work Phone: 1(461)615-346986 [place] [address] 08-12-2022 15:01-0400 Body weight 66.[address] Michael Cox Work Phone: 6(650)826-042286 [place] [address] 08-12-2022 15:01-0400 Diastolic blood pressure 70 mm[Hg] Dr. Michael Cox Work Phone: 1(837)857-004486 [place] [address] 08-12-2022 15:01-0400 Heart rate 65 /min Dr. Michael Cox Work Phone: 1(647)044-181386 [place] [address] 08-12-2022 15:01-0400 Respiratory rate 16 /min Dr. Michael Cox Work Phone: 9(583)681-040386 [place] [address] 08-12-2022 15:01-0400 SaO2% (BldA) [Mass fraction] 96 % Dr. Michael Cox Work Phone: 0(732)169-377286 [place] [address] 08-12-2022 15:01-0400 Systolic blood pressure 128 mm[Hg] Dr. Michael Cox Work Phone: [facility] 05-20-2022 09:02-0500 Body height 160.[address] Michael Cox Work Phone: [facility] 01-07-2022 04:16-0400 Body temperature 97 [degF] Dex Hicks [employer] Work Phone: [facility] 01-07-2022 04:16-0400 Diastolic blood pressure 70 mm[Hg] Dex Hicks DO Work Phone: [facility] 01-07-2022 04:16-0400 Heart rate 69 /min Dex Hicks [employer] Work Phone: [facility] 01-07-2022 04:16-0400 Respiratory rate 17 /min Dex [facility] [employer] Work Phone[facility] 01-07-2022 04:16-0400 SaO2% (BldA) [Mass fraction] 92 % Dex Hicks [employer] Work Phone: [employer] 01-07-2022 04:16-0400 Systolic blood pressure 142 mm[Hg] Dex Hicks [employer] Work Phone: [employer] 01-04-2022 09:05-0400 Body height 152.4 cm Dex Hicks [employer] Work Phone: [employer] 01-02-2022 04:00-0400 Body mass index (BMI) [Ratio] 21.74 kg/m2 Dex Hicks [employer] Work Phone: [employer] 01-02-2022 04:00-0400 Body weight 50.5 kg Dex Hicks [employer] Work Phone: [facility] 12-27-2021 09:04-0400 Body temperature 98.4 [degF] [facility] Work Phone: 12-27-2021 09:04-0400 Diastolic blood pressure 73 mm[Hg] [facility] Work Phone: 12-27-2021 09:04-0400 Heart rate 96 /min [facility] Work Phone: 12-27-2021 09:04-0400 Inhaled oxygen flow rate 3 L/min [facility] Work Phone: 12-27-2021 09:04-0400 Respiratory rate 18 /min [facility] Work Phone: 12-27-2021 09:04-0400 SaO2% (BldA) [Mass fraction] 96 % [facility] Work Phone: 12-27-2021 09:04-0400 Systolic blood pressure 173 mm[Hg] [facility] Work Phone: 12-27-2021 00:47-0400 Body height 160.02 cm [facility] Work Phone: 12-27-2021 00:47-0400 Body mass index (BMI) [Ratio] 20 kg/m2 [facility] Work Phone: 12-27-2021 00:47-0400 Body weight 51.2 kg [facility] Work Phone: 08-07-2021 13:04-0400 Body height 160.[address] Michael Cox Work Phone: [facility] Work Phone: 08-07-2021 13:04-0400 Body temperature 97.6 [degF] Dr. Michael Cox Work Phone: [facility] Work Phone: 08-07-2021 13:04-0400 Diastolic blood pressure 88 mm[Hg] Dr. Michael Cox Work Phone: [facility] Work Phone: 08-07-2021 13:04-0400 Heart rate 91 /min Dr. Michael Cox Work Phone: [facility] Work Phone: 08-07-2021 13:04-0400 Respiratory rate 18 /min Dr. Michael Cox Work Phone: [facility] Work Phone: 08-07-2021 13:04-0400 SaO2% (BldA) [Mass fraction] 97 % Dr. Michael Cox Work Phone: [facility] Work Phone: 08-07-2021 13:04-0400 Systolic blood pressure 158 mm[Hg] Dr. Michael Cox Work Phone: [facility] Work Phone: 07-11-2021 14:02-0400 Diastolic blood pressure 93 mm[Hg] Dr. Michael Cox Work Phone: [facility] Work Phone: 07-11-2021 14:02-0400 Heart rate 76 /min Dr. Michael Cox Work Phone: [facility] Work Phone: 07-11-2021 14:02-0400 Respiratory rate 15 /min Dr. Michael Cox Work Phone: [facility] Work Phone: 07-11-2021 14:02-0400 SaO2% (BldA) [Mass fraction] 98 % Dr. Michael Cox Work Phone: [facility] Work Phone: 07-11-2021 14:02-0400 Systolic blood pressure 179 mm[Hg] Dr. Michael Cox Work Phone: [facility] Work Phone: 07-11-2021 11:21-0400 Body mass index (BMI) [Ratio] 20 kg/m2 Dr. Michael Cox Work Phone: [facility] Work Phone: 07-11-2021 11:21-0400 Body temperature 98.5 [degF] Dr. Michael Cox Work Phone: [facility] Work Phone: 07-11-2021 11:21-0400 Body weight 51.[address] Michael Cox Work Phone: [facility] Work Phone: Encounters Encounter Date Encounter Type Care Provider Facility Start: 10-02-2024 End: 10-02-[address] Viviana Mcgee MD Work Phone: -[facility] Start: 10-02-2024 End: 10-02-[address] Viviana Mcgee MD -[facility] Work Phone: Start: 08-24-2024 End: 08-24-[address] Viviana Mcgee MD Work Phone: [facility] Work Phone: Start: 08-24-2024 End: 08-24-2024 Departed Referred Viviana Mcgee MD -[facility] D[facility] Start: 08-24-2024 Registered Referred Viviana Mcgee MD -[facility] Start: 08-24-2024 End: 08-24-2024 ambulatory Viviana ABBOTT Facility:[facility] Start: 07-31-2024 End: 07-31-[address] Viviana Mcgee MD Work Phone: [facility] Work Phone: Start: 07-31-2024 End: 07-31-2024 Patient encounter procedure Matilda MCLAIN -[facility] Work Phone: Start: 07-31-2024 Non-patient / Non-visit Dr. Zachary gupta MD -[facility] Start: 07-31-2024 End: 07-31-[address] Viviana Mcgee MD Work Phone: [facility] Work Phone: Start: 07-31-2024 End: 07-31-2024 Patient encounter procedure Lacy Barbuor PA -[facility] Work Phone: Start: 07-31-2024 End: 07-31-2024 ambulatory Efewongbe Oleghe Facility:[facility] Start: 07-03-2024 End: 07-03-2024 ambulatory Efewongbe Oleghe Facility:[facility] Start: 07-03-2024 End: 07-03-[address] Viviana Mcgee MD -[facility] Work Phone: Start: 06-29-2024 End: 06-29-[address] Viviana Mcgee MD Work Phone: [facility] Work Phone: Start: 06-29-2024 End: 06-29-2024 [facility]: 06-29-2024 End: 06-29-2024 ambulatory Matilda ABBOTT Facility:[facility] Start: 06-27-2024 End: 06-27-2024 Patient encounter procedure Lacy SANCHEZ -[facility] Work Phone: Start: 06-27-2024 End: 06-27-2024 ambulatory Efewongbe Oleluize Facility:[facility] Start: 06-21-2024 End: 06-21-2024 ambulatory Efewongbe Oleghe Facility:[facility] Start: 06-21-2024 End: 06-21-2024 Patient encounter procedure Cr SANCHEZ [facility] Work Phone: Start: 06-07-2024 ambulatory Efewongbe Walterghe [facility] Fa cility:[facility] Start: 06-07-2024 [facility] Start: 06-01-2024 ambulatory Efewongbe Oleghe OLS Fa cility:[facility] Start: 06-01-2024 [facility] Start: 05-16-2024 End: 05-16-2024 ambulatory Efewongbe Jeromee Facility:[facility] Start: 05-16-2024 End: 05-16-2024 Patient encounter procedure Matilda Tickton [employer]-[facility] Work Phone: Start: 05-08-2024 End: 05-08-2024 ambulatory Efewongbe Oleluize Facility:[facility] Start: 05-08-2024 End: 05-08-[address] Viviana Mcgee MD -[facility] Work Phone: Start: 04-27-2024 ambulatory Efewongbe Oleghe Facili ty:[facility] Start: 04-27-2024 Registered Referred Viviana Mcgee MD [facility] Start: 04-03-2024 End: 04-03-2024 ambulatory Matilda Doherty NP Facility:[facility] Start: 04-03-2024 End: 04-03-2024 Patient encounter procedure Matilda Doherty [employer] SUPERVISOR-[facility] Work Phone: Start: 03-30-2024 End: 03-30-2024 Departed Referred Viviana Mcgee MD [facility] Start: 03-30-2024 End: 03-30-2024 ambulatory Efewongbe Oleghe Facility:[facility] Start: 03-21-2024 End: 03-21-2024 ambulatory Efewongbe Oleluize OLS Facility:[facility] Start: 02-28-2024 End: 02-28-2024 ambulatory Efewongbe Oleghe Facility:[facility] Start: 02-24-2024 End: 02-24-2024 ambulatory Efewongbe Oleghe Facility:[facility] Start: 01-27-2024 End: 01-27-2024 ambulatory Efewongbe Oleghe Facility:[facility] Start: 01-25-2024 End: 01-25-2024 ambulatory Matilda Doherty [employer] MA[employer] SUPERVISOR Facility:[facility] Start: 01-06-2024 ambulatory Efewongbe Oleghe OLS Fa cility:[facility] Start: 01-03-2024 End: 01-03-2024 ambulatory Efewongbe Oleghe Facility:[facility] Start: 12-30-2023 ambulatory Efewongbe Oleghe OLS Fa cility:[facility] Start: 12-28-2023 ambulatory Efewongbe Oleghe OLS Fa cility:[facility] Start: 12-19-2023 End: 12-19-2023 ambulatory Reynaldojose apapa Canoji Facility:[facility] Start: 11-25-2023 End: 11-25-2023 ambulatory Viviana Mcgee OLS Facility:[facility] Start: 08-26-[address] Flavio Mcgee Work Phone: [facility] Start: 08-16-2023 End: 08-16-[address] Viviana Mcgee Work Phone: [facility] Work Phone: Start: 08-16-2023 End: 08-16-[address] Viviana Mcgee Work Phone: [facility] Start: 08-04-2023 End: 08-04-[address] Viviana Mcgee Work Phone: [facility] Work Phone: Start: 07-29-2023 End: 07-29-[address] Viviana Mcgee Work Phone: [facility] Work Phone: Start: 07-29-2023 End: 07-29-[address] Viviana Mcgee Work Phone: [facility] Start: 07-29-[address] Flavio Mcgee Work Phone: [facility] Start: 07-11-2023 End: 07-11-[address] Viviana Mcgee Work Phone: [facility] Work Phone: Start: 06-29-2023 End: 06-29-[address] Viviana Mcgee Work Phone: [facility] Work Phone: Start: 06-28-2023 End: 06-28-[address] Viviana Mcgee Work Phone: [facility] Work Phone: Start: 06-24-2023 End: 06-24-[address] Viviana Mcgee Work Phone: [facility] Work Phone: Start: 06-24-2023 End: 06-24-[address] Viviana Mcgee Work Phone: [facility] Start: 06-20-2023 End: 06-20-[address] Viviana Mcgee Work Phone: [facility] Work Phone: Start: 05-27-2023 End: 05-27-[address] Viviana Mcgee Work Phone: [facility] Work Phone: Start: 05-27-2023 End: 05-27-[address] Viviana Mcgee Work Phone: [facility] Start: 05-25-2023 End: 05-25-[address] Viviana Mcgee Work Phone: [facility] Work Phone: Start: 05-10-2023 End: 05-10-[address] Viviana Mcgee Work Phone: [facility] Work Phone: Start: 04-29-2023 End: 04-29-[address] Michael Cox Work Phone: [facility] Work Phone: Start: 04-29-2023 End: 04-29-[address] Michael Cox Work Phone: [facility] Start: 04-27-2023 End: 04-27-[address] Michael Cox Work Phone: [facility] Work Phone: Start: 04-07-2023 End: 04-07-[address] Michael Cox Work Phone: [facility] Work Phone: Start: 03-28-2023 End: 03-28-[address] Michael Cox Work Phone: [facility] Work Phone: Start: 03-28-2023 End: 03-28-[address] Michael Cox Work Phone: [facility] Work Phone: Start: 03-25-2023 End: 03-25-[address] Michael Cox Work Phone: [facility] Work Phone: Start: 03-25-2023 End: 03-25-[address] Michael Cox Work Phone: [facility] Start: 03-25-[address] Aidan Cox Work Phone: [facility] Start: 03-08-2023 End: 03-08-[address] Michael Cox Work Phone: [facility] Work Phone: Start: 02-25-2023 End: 02-25-[address] Michael Cox Work Phone: [facility] Work Phone: Start: 02-25-2023 End: 02-25-[address] Michael Cox Work Phone: [facility] Start: 02-08-2023 End: 02-08-[address] Michael Cox Work Phone: [facility] Work Phone: Start: 02-02-2023 End: 02-02-[address] Michael Cox Work Phone: [facility] Work Phone: Start: 01-30-2023 End: 01-30-2023 Emergency department patient visit Dr. Michael Cox Work Phone: [facility] Work Phone: Start: 01-28-2023 End: 01-28-[address] Michael Cox Work Phone: [facility] Work Phone: Start: 01-28-2023 End: 01-28-[address] Michael Cox Work Phone: [facility] Start: 01-26-2023 End: 01-26-[address] Michael Cox Work Phone: [facility] Work Phone: Start: 01-11-2023 End: 01-11-[address] Michael Cox Work Phone: [facility] Work Phone: Start: 01-11-2023 Non-patient / Non-visit Dr. Day Cox Work Phone: [facility] Start: 01-07-2023 Non-patient / Non-visit [facility] Day [facility] Start: 01-07-2023 End: 01-07-[address] [facility] Start: 12-24-2022 End: 12-24-[address] Michael oCx Work Phone: [facility] Work Phone: Start: 12-24-2022 End: 12-24-[address] Michael Cox Work Phone: [facility] Start: 12-23-2022 End: 12-23-[address] Michael Cox Work Phone: [facility] Work Phone: Start: 11-29-2022 End: 11-29-[address] Michael Cox Work Phone: [facility] Work Phone: Start: 11-26-2022 End: 11-26-[address] Michael Cox Work Phone: [facility] Work Phone: Start: 11-26-2022 End: 11-26-[address] Michael Cox Work Phone: [facility] Start: 11-26-[address] Aidan Cox Work Phone: [facility] Start: 11-09-2022 End: 11-09-[address] Michael Cox Work Phone: [facility] Work Phone: Start: 11-09-2022 End: 11-09-[address] Michael Cox Work Phone: [facility] Start: 11-09-[address] Adian Cox Work Phone: [facility] Start: 11-08-2022 End: 11-08-[address] Michael Cox Work Phone: [facility] Work Phone: Start: 11-02-2022 End: 11-02-[address] Michael Cox Work Phone: [facility] Work Phone: Start: 10-29-2022 End: 10-29-[address] Michael Cox Work Phone: [facility] Work Phone: Start: 10-29-2022 End: 10-29-[address] Michael Cox Work Phone: [facility] Start: 10-29-[address] Aidan Cox Work Phone: [facility] Start: 10-20-2022 End: 10-20-[address] Michael Cox Work Phone: [facility] Work Phone: Start: 09-24-2022 End: 09-24-[address] Michael Cox Work Phone: [facility] Work Phone: Start: 09-24-2022 End: 09-24-[address] Michael Cox Work Phone: [facility] Start: 09-14-2022 End: 09-14-[address] Michael Cox Work Phone: [facility] Work Phone: Start: 08-27-2022 End: 08-27-[address] Michael Cox Work Phone: [facility] Start: 08-20-2022 ambulatory [facility] Comment on above: Population Health Na vigation Outreach (ACO NO PCP) Start: 06-25-2022 End: 06-25-[address] Michael Cox Work Phone: [facility] Work Phone: Start: 06-25-2022 End: 06-25-[address] Michael Cox Work Phone: [facility] Start: 06-25-[address] Aidan Cox Work Phone: [facility] Start: 06-08-2022 End: 06-08-[address] Michael Cox Work Phone: [facility] Start: 05-28-2022 End: 05-28-[address] Michael Cox Work Phone: [facility] Work Phone: Start: 05-28-2022 End: 05-28-[address] Michael Cox Work Phone: [facility] Start: 05-11-2022 End: 05-11-[address] Michael Cox Work Phone: [facility] Start: 05-10-2022 End: 05-10-[address] Michael Cox Work Phone: [facility] Start: 04-30-2022 End: 04-30-[address] Michael Cox Work Phone: [facility] Work Phone: Start: 04-30-2022 End: 04-30-[address] Michael Cox Work Phone: [facility] Start: 04-30-[address] Aidan Cox Work Phone: [facility] Start: 03-29-2022 End: 03-29-[address] Michael Cox Work Phone: [facility] Work Phone: Start: 03-29-2022 End: 03-29-[address] Michael Cox Work Phone: [facility] Start: 03-29-[address] Aidan Cox Work Phone: [facility] Start: 03-26-2022 End: 03-26-[address] Michael Cox Work Phone: [facility] Work Phone: Start: 03-26-2022 End: 03-26-[address] Michael Cox Work Phone: [facility] Start: 03-26-[address] Aidan Cox Work Phone: [facility] Start: 03-10-2022 End: 03-10-[address] Michael Cox Work Phone: [facility] Start: 03-02-2022 End: 03-02-[address] Michael Cox Work Phone: [facility] Start: 02-26-2022 End: 02-26-[address] Michael Cox Work Phone: [facility] Work Phone: Start: 02-26-2022 End: 02-26-[address] Michael Cox Work Phone: [facility] Start: 02-26-[address] Aidan Cox Work Phone: [facility] Start: 01-29-2022 End: 01-29-[address] Michael Cox Work Phone: [facility] Work Phone: Start: 01-29-2022 End: 01-29-[address] Michael Cox Work Phone: [facility] Start: 01-11-[address] Aidan Cox Work Phone: [facility] Start: 12-27-2021 End: 01-07-2022 Evaluation and management of inpatient [facility] Start: 12-27-2021 End: 01-07-2022 Evaluation and management of inpatient Dex Hicks DO Work Phone: [facility] Start: 12-27-2021 End: 12-27-2021 Emergency department patient visit [facility] Start: 11-20-2021 Telephone encounter Michael Cox MD Work Phone: [facility] [place] Comment on above: Patient Update; Yola ent Question; Help with [facility] Start: 10-21-2021 ambulatory Michael Cox MD Work Phone: [facility] [place] Start: 08-07-2021 End: 08-07-[address] Michael Cox Work Phone: [facility] Start: 08-05-2021 Non-patient / Non-visit Dr. Day Cox Work Phone: [facility] Start: 08-05-2021 End: 08-05-[address] Michael Cox Work Phone: [facility] Start: 07-11-2021 End: 07-11-2021 ambulatory MICHAEL COX Facility:[facility] Start: 07-11-2021 End: 07-11-2021 Emergency department patient visit Dr. Michael Cox Work Phone: [facility] Procedures Date Procedure Procedure Detail Performing Clinician Start: 03-28-2023 CT of abdominal aort a with contrast Dr. Michael Cox Work Phone: Start: 01-30-2023 Plain X-ray of femur Dr Mohamud Cox Work Phone: Start: 01-30-[address] Mohamud Cox Work Phone: Start: 01-30-2023 Pelvis X-ray Dr. Aidan Cox Work Phone: Start: 01-07-2022 Dup-scan xtr veins c omplete bilateral study Aneil A Stefania Zelaya MD Work Phone: Start: 01-07-2022 COVID-19 Raman grace DO Work Phone: Start: 01-07-2022 Radiologic exam ches t single view Aneil A Stefania Zelaya MD Work Phone: Start: 01-07-2022 BASIC METABOLIC PANE L W/ REFLEX TO MG FOR LOW K Aneil A Stefania Zelaya MD Work Phone: Start: 01-07-2022 Blood count complete auto&auto difrntl wbc Aneil A Stefania Zelaya MD Work Phone: Start: 01-06-2022 Thoracentesis for aspiration Mely Burch MD Work Phone: Start: 01-06-2022 Radiologic exam ches t single view Aneil A Stefania Zelaya MD Work Phone: Start: 01-06-2022 BASIC METABOLIC PANE L W/ REFLEX TO MG FOR LOW K Aneil A Stefania Zelaya MD Work Phone: Start: 01-06-2022 Blood count complete auto&auto difrntl wbc Aneil A Stefania Zelaya MD Work Phone: Start: 01-05-2022 ADD ON LAB TEST Ra Arboleda MD Work Phone: Start: 01-05-2022 Radiologic exam ches t single view Blayne Zelaya MD Work Phone: Start: 01-05-2022 BASIC METABOLIC PANE L W/ REFLEX TO MG FOR LOW K Aneil Chayo Zelaya MD Work Phone: Start: 01-05-2022 Blood count complete auto&auto difrntl wbc Blayne Zelaya MD Work Phone: Start: 01-05-2022 Hepatic function panel Blayne Zelaya MD Work Phone: Start: 01-04-2022 Gluc bld gluc mntr d ev cleared fda spec home use Johnny Berrios MD Work Phone: Start: 01-04-2022 Us abdominal real ti me w/image limited Mely Burch MD Work Phone: Start: 01-04-2022 Gluc bld gluc mntr d ev cleared fda spec home use Johnny Berrios MD Work Phone: Start: 01-04-2022 Gluc bld gluc mntr d ev cleared fda spec home use Johnny Berrios MD Work Phone: Start: 01-04-2022 ADD ON LAB TEST Ra Arboleda MD Work Phone: Start: 01-04-2022 Radiologic exam ches t single view Blayne Zelaya MD Work Phone: Start: 01-04-2022 Assay of magnesium Nancii leon Zelaya MD Work Phone: Start: 01-04-2022 BASIC METABOLIC PANE L W/ REFLEX TO MG FOR LOW K Nanciil A Stefania Zelaya MD Work Phone: Start: 01-03-2022 Gluc bld gluc mntr d ev cleared fda spec home use Johnny Berrios MD Work Phone: Start: 01-03-2022 Dup-scan xtr veins c omplete bilateral study Yariel Beasley MD Work Phone: Start: 01-03-2022 Radiologic exam ches t single view Blayne Zelaya MD Work Phone: Start: 01-03-2022 Assay of lactate Blayne Zelaya MD Work Phone: Start: 01-03-2022 BASIC METABOLIC PANE L W/ REFLEX TO MG FOR LOW K Blayne Zelaya MD Work Phone: Start: 01-03-2022 Hepatic function panel Blayne Zelaya MD Work Phone: Start: 01-02-2022 Basic metabolic pane l calcium total Johnny Berrios MD Work Phone: Start: 01-02-2022 Radiologic exam ches t single view Blayne Zelaya MD Work Phone: Start: 01-02-2022 End: 01-02-2022 Gluc bld gluc mntr dev cleared fda spec home use Johnny Berrios MD Work Phone: Start: 01-02-2022 Manual Differential panel - Blood Monika Araujo MD Work Phone: Start: 01-01-2022 Gluc bld gluc mntr d ev cleared fda spec home use Johnny Berrios MD Work Phone: Start: 01-01-2022 Gluc bld gluc mntr d ev cleared fda spec home use Johnny Berrios MD Work Phone: Start: 01-01-2022 Cul bact xcpt urine blood/stool aerobic isol Isabel Nj [employer] 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 FINISHER Work Phone: Start: 01-01-2022 Other source albumin quantitative each specimen Isabel Nj [employer] 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 FINISHER Work Phone: Start: 01-01-2022 Radiologic exam ches t single view Isabel Nj [employer] 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 FINISHER Work Phone: Start: 01-01-2022 Perq drainage pleura insert cath w/imaging Blayne Zelaya MD Work Phone: Start: 01-01-2022 Radiologic exam ches t single view Blayne Zelaya MD Work Phone: Start: 01-01-2022 Radiologic exam abdo men 1 view Isabel Nj [employer]SP[employer] 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 FINISHER Work Phone: Start: 01-01-2022 End: 01-01-2022 Gluc bld gluc mntr dev cleared fda spec home use Johnny Berrios MD Work Phone: Start: 01-01-2022 BASIC METABOLIC PANE L W/ REFLEX TO MG FOR LOW K Blayne Zelaya MD Work Phone: Start: 01-01-2022 Hepatic function panel Blayne Zelaya MD Work Phone: Start: 12-31-2021 Gluc bld gluc mntr d ev cleared fda spec home use Johnny Berrios MD Work Phone: Start: 12-31-2021 MRSA BY PCR Isabel hayes [employer] 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 FINISHER Work Phone: Start: 12-31-2021 Gluc bld gluc mntr d ev cleared fda spec home use Johnny Berrios MD Work Phone: Start: 12-31-2021 Ct angiography chest w/contrast/noncontrast Isabel Nj [employer] 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 FINISHER Work Phone: Start: 12-31-2021 Dup-scan xtr veins c omplete bilateral study Blayne Zelaya MD Work Phone: Start: 12-31-2021 Radiologic exam abdo men 1 view Isabel Nj [employer] 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 FINISHER Work Phone: Start: 12-31-2021 Radiologic exam ches t single view Blayne Zelaya MD Work Phone: Start: 12-31-2021 Blood count complete auto&auto difrntl wbc Ezekiel Maciel MD Work Phone: Start: 12-31-2021 Assay of magnesium Carmelina sa Leon Araujo MD Work Phone: Start: 12-31-2021 BASIC METABOLIC PANE L W/ REFLEX TO MG FOR LOW K Blayne Zelaya MD Work Phone: Start: 12-31-2021 Hepatic function panel Monika Araujo MD Work Phone: Start: 12-30-2021 Gluc bld gluc mntr d ev cleared fda spec home use Johnny Berrios MD Work Phone: Start: 12-30-2021 End: 12-30-2021 Gluc bld gluc mntr dev cleared fda spec home use Johnny Berrios MD Work Phone: Start: 12-30-2021 Gluc bld gluc mntr d ev cleared fda spec home use Johnny Berrios MD Work Phone: Start: 12-30-2021 BLOOD GAS, ARTERIAL Bianca juan Beasley MD Work Phone: Start: 12-30-2021 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 CLINICAL BEDSIDE SWALLOW EVALUATION & TREATMENT Yariel Beasley MD Work Phone: Start: 12-30-2021 Radiologic exam abdo men 1 view Isabel Roxane [employer] 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 Work Phone: Start: 12-30-2021 RENAL & LIVER PROFILE L danielle Roxane [employer] 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 FINISHER Work Phone: Start: 12-30-2021 BASIC METABOLIC PANE L W/ REFLEX TO MG FOR LOW K Blayne Zelaya MD Work Phone: Start: 12-30-2021 Cyanocobalamin vitamin b-12 Kristopher Todd [employer]SP[employer] MANAGER - [employer] MA[employer] SUPERVISOR Work Phone: Start: 12-30-2021 Radiologic exam ches t single view Blayne Zelaya MD Work Phone: Start: 12-30-2021 Assay of troponin quantitative Yariel Beasley MD Work Phone: Start: 12-29-2021 Assay of troponin quantitative Yariel Beasley MD Work Phone: Start: 12-29-2021 Cell count misc body fluids w/differential count Monika Araujo MD Work Phone: Start: 12-29-2021 DIFFERENTIAL, BODY FLUID Monika L Margiotta MD Work Phone: Start: 12-29-2021 Lactate dehydrogenase ldh Monika Araujo MD Work Phone: Start: 12-29-2021 TOTAL PROTEIN, FLUID Vazquez Araujo MD Work Phone: Start: 12-29-2021 Cul bact xcpt urine blood/stool aerobic isol Monika Araujo MD Work Phone: Start: 12-29-2021 Cytp flu washgs/brus hings xcpt c/v smrs interpj Monika Araujo MD Work Phone: Start: 12-29-2021 Thoracentesis for aspiration Monika Araujo MD Work Phone: Start: 12-29-2021 Radiologic exam abdo men 1 view Blayne Zelaya MD Work Phone: Start: 12-29-2021 Assay of ammonia Blayne Zelaya MD Work Phone: Start: 12-29-2021 Iaad ia mult step me thod nos each organism Blayne Zelaya MD Work Phone: Start: 12-29-2021 STREP PNEUMONIAE ANTIGEN Blayne Zelaya MD Work Phone: Start: 12-29-2021 Ecg routine ecg w/le ast 12 lds w/i&r Yariel Beasley MD Work Phone: Start: 12-29-2021 Radiologic exam ches t single view Monika Araujo MD Work Phone: Start: 12-29-2021 Ecg routine ecg w/le ast 12 lds w/i&r Ezekiel Maciel MD Work Phone: Start: 12-29-2021 Assay of lactate Monika Araujo MD Work Phone: Start: 12-29-2021 BASIC METABOLIC PANE L W/ REFLEX TO MG FOR LOW K Johnny Berrios MD Work Phone: Start: 12-29-2021 POC ARTERIAL REPIRAT ORY PANEL - RAPID RESPONSE Johnny Berrios MD Work Phone: Start: 12-29-2021 Radiologic exam ches t single view Blayne Zelyaa MD Work Phone: Start: 12-28-2021 Assay of lactate Monika Araujo MD Work Phone: Start: 12-28-2021 Assay of lactate Monika Araujo MD Work Phone: Start: 12-28-2021 Radiologic exam ches t single view Christiano Gonzalez MD Work Phone: Start: 12-28-2021 Ecg routine ecg w/le ast 12 lds w/i&r Yariel Beasley MD Work Phone: Start: 12-28-2021 Radiologic exam ches t single view Monika Araujo MD Work Phone: Start: 12-27-2021 Assay of lactate Marta Stallings RN Start: 12-27-2021 RESPIRATORY PANEL, MOLECULAR, WITH COVID-19 Johnny Berrios MD Work Phone: Start: 12-27-2021 CHG IAAD IA SEVERE A QT RESPIR SYND CORONAVIRUS Monika Araujo MD Work Phone: Start: 12-27-2021 Ct thorax w/contrast material Monika Araujo MD Work Phone: Start: 12-27-2021 ADD ON LAB TEST Dex Hicks DO Work Phone: Start: 12-27-2021 Basic metabolic pane l calcium total Mary Queen MD Work Phone: Start: 12-27-2021 Culture bacterial bl ood aerobic w/id isolates Mary Queen MD Work Phone: Start: 12-27-2021 CULTURE, BLOOD 1 Mary Queen MD Work Phone: Start: 12-27-2021 Hepatic function panel Mary Queen MD Work Phone: Start: 12-27-2021 Manual Differential panel - Blood Mary Queen MD Work Phone: Start: 12-27-2021 CT of chest without contrast Start: 12-27-2021 Computed tomography of abdomen and pelvis with intravenous contrast Start: 07-11-2021 CT of abdominal aort a with contrast Dr. Michael Cox Work Phone: Start: 02-17-2016 Adult depression scr eening assessment Michael Cox MD Work Phone: Start: 02-12-2016 Mammography Michael Fu MD Work Phone: Viral antigen assay Plan of Treatment Date Care Activity Detail Author Start: 09-15-2025 LIPID SCREEN LIPID SCREEN [facility] Start: 09-16-2023 DIABETES SCREEN DIABETES SCREEN [facility] Start: 08-26-2023 Thyroid stimulating hormone measurement [facility] Start: 08-26-2023 [facility] Start: 01-30-2023 [facility] Start: 01-11-2023 Patient referral [facility] Work Phone: Start: 12-27-2022 Influenza vaccination LUNG CANCER SC REENING [facility] Start: 12-24-2022 Influenza vaccination INFLUENZ A (Season Ended) [facility] Start: 07-11-2022 ANNUAL PCP TEAM YARD CLERK PATRICIA DISEASE VISIT ANNUAL PCP TEAM CHRONIC DISEASE VISIT [facility] Start: 04-25-2022 ADVANCE DIRECTIVE DISCUSSION ADVANCE DIRECTIVE DISCUSSION [facility] Start: 04-25-2022 [facility] Start: 12-24-2021 Influenza vaccination INFLUENZA (#1) [facility] Start: 12-24-2021 [facility] Start: 06-30-2021 COVID-19 VACCINE (3 - Booster for Moderna series) COVID-19 VACCINE (3 - Booster for Moderna series) [facility] Start: 04-25-2021 ADVANCE DIRECTIVE DISCUSSION ADVANCE DIRECTIVE DISCUSSION [facility] Start: 04-25-2021 DEPRESSION ASSESSMENT DEPRESSION ASS ESSMENT [facility] Start: 03-27-2021 COVID-19 VACCINE (3 - Booster for Moderna series) COVID-19 VACCINE (3 - Booster for Moderna series) [facility] Start: 02-27-2021 [facility] Start: 02-16-2017 Adult depression scr eening assessment DEPRESSION SCREENING [facility] Start: 02-11-2017 Mammography MAMMOGRAM [facility] Start: 04-01-2015 COLORECTAL CANCER SCREENING COLORECTAL CANCER SCREENING [facility] Start: 04-01-2015 FECAL OCCULT BLOOD FECAL OCCULT BLOO D [facility] Start: 2007 HEPATITIS B (1 of 3 - Risk 3-dose series) HEPATITIS B (1 of 3 - Risk 3-dose series) [facility] Start: 06-30-1997 Influenza vaccination LUNG CANCER SC REENING [facility] Start: 06-30-1997 SHINGRIX VACCINE (1 of 2) [facility]AMPOS GRIX VACCINE (1 [facility] 2) [facility] [facility] Start: 06-30-1992 COLOGUARD (FIT-DNA) COLOGUARD (FIT-D NA) [facility] Start: 06-30-1992 Colonoscopy COLONOSCOPY [facility] Start: 06-30-[address]OGRAP[address] [facility] Start: 06-30-1992 SIGMOIDOSCOPY SIGMOIDOSCOPY [facility] Start: 06-30-1966 HEPATITIS B (1 of 3 - Risk 3-dose series) HEPATITIS B (1 of 3 - Risk 3-dose series) [facility] Start: 06-30-1966 Urine microalbumin profile DTAP,TDAP ,TD (1 - Tdap) [facility] Start: 06-30-1966 [facility] Start: 06-30-1965 BP CONTROLLED (<130/80) BP CONTROLLE D (<130/80) [facility] Start: 06-30-1965 MMR (1 of 2 - Risk 2 -dose series) MMR (1 of 2 - Risk 2-dose series) [facility] Start: 06-30-1957 MENINGOCOCCAL B: Con 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 lecturer based on risk (1 of 4 - Increased Risk Bexsero 2-dose series) MENINGOCOCCAL B: Consider based on risk (1 of 4 - Increased Risk Bexsero 2-dose series) [facility] Start: 06-30-1953 PNEUMOCOCCAL: 65+ (1 - PCV) PNEUMOCOCCAL: 65+ (1 - PCV) [facility] Start: 06-30-1948 HEPATITIS A (1 of 2 - Risk 2-dose series) HEPATITIS A (1 of 2 - Risk 2-dose series) [facility] [employer] [facility] Work Phone: Alanine aminotransfe rase [Enzymatic activity/volume] in Serum or Plasma [facility] Albumin [Mass/volume ] in Serum or Plasma [facility] Alkaline phosphatase [Enzymatic activity/volume] in Serum or Plasma [facility] Anion gap measurement [facility] Ankle brachial press ure index [facility] Aspartate aminotrans ferase [Enzymatic activity/volume] in Serum or Plasma [facility] End: 01-17-2022 Basic Metabolic Panel w/ Reflex to MG [facility] Work Phone: Basic Metabolic Pane l w/ Reflex to MG [facility] Work Phone: Bilirubin, total measurement [facility] BUN/Creatinine ratio [facility] Calcium [Mass/volume ] in Serum or Plasma [facility] Carbon dioxide, tota l [Moles/volume] in Serum or Plasma [facility] End: 01-17-2022 CBC W Auto Differential panel - Blood [facility] Work Phone: Chloride [Moles/volu me] in Serum or Plasma [facility] Creatinine [Moles/vo lume] in Serum or Plasma [facility] Glucose [Mass/volume ] in Serum or Plasma [facility] Work Phone: Glucose [Mass/volume ] in Serum or Plasma [facility] End: 12-31-2021 Hepatic function 2000 panel - Serum or Plasma [facility] Work Phone: End: 12-27-2021 Lactate [Moles/volume] in Serum or Plasma [facility] Work Phone: Measurement of renal function [facility] End: 12-29-2021 MRSA by PCR [facility] Work Phone: Nasotracheal suctioning [facility] Work Phone: Oxygen therapy [[facility] Data Set] [facility] Work Phone: Patient Education [facility] Work Phone: Patient referral [facility] Work Phone: Potassium [Moles/vol ume] in Serum or Plasma [facility] End: 12-27-2021 Protime-INR [facility] Work Phone: End: 11-20-2022 Screening mammography bi 2-view breast inc cad JACQUI SCREENING Radiology Routine Encounter for screening mammogram for breast cancer 1 Occurrences starting 10/21/2021 until 11/20/2022 [facility] Work Phone: Comment on above: 1 Occurrences starti ng 10/21/2021 until 11/20/2022 Sodium [Moles/volume ] in Serum or Plasma [facility] Total protein measurement [facility] Urea nitrogen [Mass/volume] in Serum or Plasma [facility] VL LOWER EXTREMITY BILATERAL VENOUS DUPLEX [facility] Work Phone: XR CHEST PORTABLE [facility] Work Phone: Immunizations Immunization Date Immunization Notes Care Provider Fa irwin 01-30-2021 COVID-19 vaccine, fu ll dose (MODERNA) Michael Cox MD Work Phone: [facility] Payers Date Payer Category Payer Medicaid [id number] 2023 Self-pay [id number] 2023 Unknown [id number] 2010 Medicare [id number] 2010 Medicare MEDICARE MEDICAR E A AND B [id number] 2010-Present [phone] [place] [address] Medicare [id number] 2010 Medicare 1945 Unknown [id number]..[id number] Unknown [id number] 2.16.840.1.700657.3.579.2.462 Unknown [id number] 2.16.840.1.973381.3.579.2.462 Unknown [id number] 2.16.840.1.582361.3.579.2.462 Unknown [id number] 2.16.840.1.702982.3.579.2.462 Unknown [id number] 2.16.840.1.747531.3.579.2.462 Unknown [id number] 2.16.840.1.584376.3.579.2.462 Unknown [id number] 2.16.840.1.367060.3.579.2.462 Unknown [id number] 2.16.840.1.464556.3.579.2.462 Unknown [id number] 2.16.840.1.219152.3.579.2.462 Unknown [id number] 2.16.840.1.182130.3.579.2.462 Unknown [id number] 2.16.840.1.029350.3.579.2.462 Unknown [id number] 2.16.840.1.036914.3.579.2.462 Unknown [id number] 2.16.840.1.483251.3.579.2.462 Unknown [id number] 2.16.840.1.660359.3.579.2.462 Unknown [id number] 2.16.840.1.268484.3.579.2.462 Unknown [id number] 2.16.840.1.772745.3.579.2.462 Unknown [id number] 2.16.840.1.475132.3.579.2.462 Unknown [id number] 2.16.840.1.744094.3.579.2.462 Unknown [id number] 2.16.840.1.780961.3.579.2.462 Unknown [id number] 2.16.840.1.385052.3.579.2.462 Unknown [id number] 2.16.840.1.683969.3.579.2.462 Unknown [id number] 2.16.840.1.192342.3.579.2.462 Unknown [id number] 2.16.840.1.565695.3.579.2.462 Unknown [id number] 2.16.840.1.279089.3.579.2.462 Unknown [id number] 2.16.840.1.843387.3.579.2.462 Unknown [id number] 2.16.840.1.606984.3.579.2.462 Unknown [id number] 2.16.840.1.944769.3.579.2.462 Social History Date Type Detail Facility Start: 08-07-2021 End: 02-24-[address] [facility] Unknown if ever smoked [facility] Start: 06-27-2018 Heavy [facility] Start: 06-27-2018 None [facility] Start: 11-26-2016 Alone [facility] Start: 06-29-2018 Cigarettes [facility] Start: 1945 Sex Assigned At Female [facility] Start: 07-25-2017 End: 01-04-2022 Tobacco smoking status GAIS Smokes tobacco daily [facility] History of tobacco use [facility] Start: 07-11-2021 Alcohol intake Current drinke r of alcohol (finding) [facility] Start: 07-25-2017 End: 07-11-2021 Alcohol intake [facility] Start: 1945 Sex Assigned At Not on file [facility] Start: 07-25-2017 End: 01-04-2022 Tobacco use and exposure Smokeless tobacco non-user [facility] Work Phone: Start: 12-25-2021 End: 01-04-2022 Exposure to SARS-CoV-2 (event) Not sure [facility] Work Phone: Start: 04-27-2023 End: 11-06-2024 Tobacco smoking status NHIS Ex-smoker (finding) [facility] Start: 07-26-2024 End: 08-06-2024 Sex Female (finding) [facility] Mental Status Date Assessment Result Facility 12-27-2021 Cognitive function Level Of Cons ciousness Awake;Alert;Follows Commands [facility] Work Phone: Clinical Notes 01-30-2014 to 06-27-2024 Note Date & Type Note Facility 06-27-2024 Evaluation note Diagnosis Onset Date Resolution PVD (peripheral vascular disease) chronic June 27 8:21am [facility] Work Phone: 1(920) 329-309004-28-2023 History of Present illness Narrative* Kinsey Gordon - 08/20/2022 1:38 PM EDT POPULATION HEALTH NAVIGATION OUTREACH Action/FYI I left a voice message and a my chart message Patient Identified by Name and : NO Outreach Outcome/Action Unable to reach patient: Left message [employer] message sent Did you use a PCP flex slot to schedule this appointment? N/A Reason for Outreach Attribution: Consult to Primary Care Payer: Payor: MEDICARE / Plan: MEDICARE A AND B / Product Type: Medicare / Care Gap Reviewed:: Annual Wellness visit Controlling Blood Pressure Colorectal Cancer Screening HBA1C Reminder: Reminder note to check Health Maintenance for items below Health Maintenance items due: HEPATITIS A(1 of 2 - Risk 2-dose series) Never done PNEUMOCOCCAL: 65+(1 - PCV) Never done MMR(1 of 2 - Risk 2-dose series) Never done BP CONTROLLED (<130/80) Never done DTAP,TDAP,TD(1 - Tdap) Never done SHINGRIX VACCINE(1 of 2) Never done HEPATITIS B(1 of 3 - Risk 3-dose series) Never done COLORECTAL CANCER SCREENING due on 04/01/2015 COVID-19 VACCINE(3 - Booster for Moderna series) due on 03/27/2021 ADVANCE DIRECTIVE DISCUSSION Never done DEPRESSION ASSESSMENT Never done ANNUAL PCP TEAM CHRONIC DISEASE VISIT due on 07/11/2022 Navigation Signature: Kinsey Gordon August 20, 2022 1:39 PM [facility] Note Attestation with edits by Mary Acosta DO at 01/27/2022 2:34 PM Patient seen & examined on day of discharge. Please refer to note dated on the day of discharge (01/07/2022) for associated attestation, exam, and plan. 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 Hypoxemia- resolved Elevated procalcitonin Lactic Acidosis likely related to EtOH or Starvation Ketosis but with concern for severe sepsis 2/2 culture negative PNA or intra-abdominal infection; sepsis supported by bandemia and elevated procalcitonin and treated w/7 days zosyn Chronic RUQ/R chest pain 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 female with significant past medical history of cirrhosis, COPD, hypothyroidism who presented with R shoulder, R chest, and RUQ pain. Patient received CT scan at [place] [facility] and was transferred here with concern for cecal pneumatosis as well as pneumomediastinum. General surgery consulted for cecal pneumatosis and thoracic surgery was consulted for pneumomediastinum. In our ED she did meet severe sepsis criteria on admission- lactate rapidly down trended w/IVF. She was admitted to SICU w/CT surgery, general surgery, geriatrics and palliative care consults. Her SICU course was notable for metabolic encephalopathy, alcohol withdrawal and need for high flow O2 w/recurrent R>L pleural effusions. Pulmonology, cardiology and ID were also consulted during her SICU stay. CT esophogram performed at [facility] with no extravasation of contrast and working diagnosis of her pneumomediastinum was ruptured lung bleb. Patient s/p thora x3 yielding exudative effusion for repeated CXRs showing R and L pleural effusions. A right sided pigtail was placed for the recurrent pleural effusion and pulm was consulted. Diuresis instituted and pigtail removed. 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 Abd imaging w/o ascites but does show cirrhotic liver. No infectious etiology found for effusions but was on 7 day course Zosyn at time of thoracentesis. Patient did complete a 7 day course of IV Zosyn for the cecal pneumatosis and possible PNA present on admission. Disposition: SNF Activity: up with assist Diet: Regular Discharge Medications: Current Outpatient Medications Medication Instructions folic acid (FOLVITE) 1 mg, Oral, DAILY furosemide (LASIX) 20 mg, Oral, DAILY ipratropium-albuterol (DUONEB) 0.5-2.5 (3) MG/3ML SOLN nebulizer solution 3 mLs, Inhalation, 2 TIMES DAILY PRN levothyroxine (SYNTHROID) 50 mcg, Oral, DAILY lidocaine 4 % external patch 1 patch, TransDERmal, DAILY nicotine (NICODERM CQ) 21 MG/24HR 1 patch, TransDERmal, DAILY oxyCODONE (ROXICODONE) 5 mg, Oral, EVERY 6 HOURS PRN QUEtiapine (SEROQUEL) 50 mg, Oral, NIGHTLY spironolactone (ALDACTONE) 25 mg, Oral, 2 TIMES DAILY vitamin B-1 (THIAMINE) 100 mg, Oral, DAILY Notable Medication Changes & Reasoning: Start lasix 20 mg and aldactone 25 mg BID for further pleural effusion managment Consultants ID, pulmonology, palliative care, geriatrics, CTS, general surgery, cardiology Procedures Performed 12/29 right thoracentesis-525ml bloody fluid 01/01 right thoracentesis with pigtail placement to water seal 01/04 pigtail removed 01/07 right thoracentesis-40 ccs sita colored fluid Significant Laboratory/Radiographic Data: CXR 01/07: Chronic interstitial changes. Bilateral effusions and atelectasis, right greater than left. US abd 01/04: No free intraperitoneal fluid is identified. Left pleural fluid is noted. CXR 01/01: Interval placement of a right basilar chest tube. No pneumothorax. Some improved aeration of the right lung base and decreased size of the right pleural effusion. No other significant interval change. CTAP 12/31: No evidence of aortic aneurysm, dissection, or intracranial hematoma. Dilatation of the left common iliac artery measuring 1.5 cm. Moderate diffuse atherosclerotic disease noted. Significant (more content not included)...[facility]09-15-2022 History of Present illness Narrative* Leonarda Casillas RN - 01/07/2022 3:40 PM EDT Report called to [facility] [place]. All questions answered. Patient to be picked up at 1630. * Sofiya Wall, MARCOS - 01/07/2022 12:08 PM EDT Physical Therapy Facility/Department: [facility] Physical Therapy Treatment Note Name: Jaimie Mcgovern : 1945 Date of Service: 01/07/2022 Discharge Recommendations: Subacute/Jail Facility Patient Diagnosis(es): The primary encounter diagnosis was Pneumatosis of intestines. A diagnosis of Pleural effusion was also pertinent to this visit. Past Medical History: has a past medical history of Alcoholic cirrhosis (HCC), Demand ischemia (HCC), Hypothyroid, and Pneumomediastinum (HCC). Past Surgical History: has a past surgical history that includes Cholecystectomy; Appendectomy; Hysterectomy; and CT GUIDED PLEURAL DRAINAGE W CATH PERC (01/01/2022). Assessment Body Structures, Functions, Activity Limitations Requiring Skilled Therapeutic Intervention: Decreased balance;Decreased endurance;Decreased functional mobility Assessment: Pt presents with the above deficits and decreased functional mobility. Agreeable to bedlevel exercise this session. Performed Supine exercise to improve strength in BLE for future mobility. No PT goals met this sesison. Recommend SNF at discharge. Activity Tolerance Activity Tolerance: Patient limited by fatigue;Patient limited by endurance Plan Plan Plan: 2-3 times per week Plan weeks: 4 weeks Current Treatment Recommendations: Strengthening, Balance training, Functional mobility training, Transfer training, Gait training, Endurance training, Neuromuscular re-education, Safety education & training, Patient/Caregiver education & training, Equipment evaluation, education, & procurement, Therapeutic activities Safety Devices Type of Devices: Left in bed, Call light within reach, Bed alarm in place Restraints Restraints Initially in Place: No Restrictions Restrictions/Precautions Restrictions/Precautions: Fall Risk, Up as Tolerated Required Braces or Orthoses?: No Position Activity Restriction Other position/activity restrictions: tele Subjective General Chart Reviewed: Yes Response To Previous Treatment: Patient with no complaints from previous session. Family / Caregiver Present: No Diagnosis: Pneumatosis of intestines Follows Commands: Within Functional Limits Subjective Subjective: Pt supine in the bed, agrees to bed level PT. Reports exhaustion and does not want to perform any OOB mobility at this this time. On room air. Denies pain Social/Functional History Social/Functional History Lives With: Alone Type of Home: (Senior Living) Home Layout: One level Home Access: Level entry Bathroom Shower/Tub: Tub/Shower unit Bathroom Toilet: Standard Bathroom Equipment: Grab bars in shower, Shower chair Bathroom Accessibility: Accessible Home Equipment: Cane, Walker, rolling (Pt unclear how often she is using these devices.) Receives Help From: Family ADL Assistance: Independent Homemaking Assistance: Needs assistance Homemaking Responsibilities: No Ambulation Assistance: Independent Transfer Assistance: Independent [employer] Dies Loader: No Mode of Transportation: Family Occupation: Retired Additional Comments: Pt poor historian this date and states she is confused at the beginning of session. Vision/Hearing Cognition Orientation Orientation Level: Oriented to place;Oriented to person;Disoriented to time Cognition Overall Cognitive Status: WFL Objective Heart Rate: 69 Heart Rate Source: Monitor BP: (!) 142/70 BP Location: Left Arm Patient Position: Supine MAP (Calculated): 94 Resp: 17 SpO2: 92 % Bed mobility Bed Mobility Comments: Unable to assess Transfers Comment: Unable to assess Ambulation Comments: Unable to assess Exercise Treatment: BLE AROM 2 x 10 - ankle pumps. QS, GS, hip ABD/ADD, heel slides, SLR. Cues for eccentric control and proper technique. AM-PAC Score AM-PAC Inpatient Mobility Raw Score : 13 (01/07/221206) AM-PAC Inpatient T-Scale Score : 36.74 (01/07/221206) Mobility Inpatient CMS 0-100% Score: 64.91 (01/07/221206) Mobility Inpatient CMS G-Code Modifier : CL (01/07/221206) Tinneti Score Goals Short Term Goals Time Frame for Short term goals: 4 weeks Short term goal 1: bed mobility, independent - not met Short term goal 2: transfers with/without device, modified independent - not met Short term goal 3: ambulation 50ft with/without device, modified independent - not met Patient Goals Patient goals : none stated Education Patient Education Education Given To: Patient Education Provided: Role of Therapy;Plan of Care;Home Exercise Program Education Method: Verbal Barriers to Learning: None Education Outcome: Verbalized understanding Therapy Time Individual Concurrent Group Co-treatment Time In 1140 Time Out 1149 Minutes 9 Timed Code Treatment Minutes: 9 Minutes (TP) SHORT HAUL DRIVER wore surgical mask and gloves throughout entire session with patient. Sofiya Wall PTA * Alejandro Georges MD - 01/07/2022 9:17 AM EDT Images from the original note were not included. 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 Hypoxemia - now resolved Emphysema, likely COPD Nicotine dependence, not ready to quit Pneumatosis/pneumomediastinum - asympatomatic and w/o evidence of esophageal perforation Recommendations: Chest tube has been out for 3 days US guided thoracentesis yesterday produced only small amount (40cc) of fluid CXR with small to mod residual effusion, possible pleural thickening Patient today declines any further intervention on the pleural effusion Given her stable respiratory status on room air, I think we can defer further invasive procedures US abd confirms cirrhotic liver, but no ascites; presentation is still most consistent with hepatichydrothorax Suggest standing diuretics as outpatient; continue aldactone; suggest furosemide 20mg daily on discharge Outpt pulm f/u for the pleural space and parenchymal abnormalities seen on CT Interval History/Event Changes: - no acute events overnight - on room air - eager to go home; daughter in law is coming today Allergies Allergies Allergen Reactions Latex Azithromycin did not work Bisoprolol-Hydrochlorothiazide did not work Review of Systems A pertinent review of systems was performed and was otherwise non-contributory. Vitals- BP (!) 142/70 Pulse 69 Temp 97 F (36.1 C) (Temporal) Resp 17 Ht 5' (1.524 m) Wt 111 lb 5.3 oz (50.5 kg) SpO2 92% BMI 21.74 kg/m Tmax: Temp (24hrs), Av.2 F (36.8 C), Min:97 F (36.1 C), Max:99.8 F (37.7 C) Hemodynamics: Cuff: Systolic (24hrs), Av , Min:122 , Max:142 /Diastolic (24hrs), Av, Min:62, Max:76 Cuff MAP:MAP (mmHg) Av.4 Min: 67 Max: 163 P: Pulse Av Min: 64 Max: 78 Observed RR: Resp Av.2 Min: 16 Max: 19 Observed O2 sats: SpO2 Av % Min: 78 % Max: 100 % No intake or output data in the 24 hours ending 01/07/22 0917 Physical exam- General appearance: Not ill appearing, alert, no converstional dyspnea Head: Normocephalic, without obvious abnormality, atraumatic Eyes:Pupils bilateral equal and reactive, EOM intact, conjunctiva - no icterus , no injection Throat: Clear, no lesions, Mallampti =1, no tonsillar eythema or edema Neck: Supple, symmetrical, trachea midline, no significant lymphadenopathy Lungs: Diminshed at bases, scattered rhonchi, no wheeze Heart: RRR, S1, S2 normal, no murmur, click, rub or gallop Abdomen: soft, non-tender, nondistended. Bowel sounds normal Extremities: extremities normal, atraumatic, no cyanosis, edema Musculoskeletal - No deformities Skin: Skin color, texture, turgor normal. No rashes or lesions Neurological: No focal deficits, cranial nerves grossly intact, sensations intact Psychiatric : Mood and effect normal , alert and oriented times 4 Routine labs: Recent Labs 01/05/225701/06/22 05001/07/22 0042 WBC 13.4* 12.3* 10.8* HGB 11.6* 10.9* 11.2* HCT 35.7 33.4* 34.9* PLT 500* 647* 725* Recent Labs 01/05/225701/06/223 01/07/22 0042 NA 133* 137 136 K 4.7 4.2 4.8 CL 108* 107 105 CO2 17* 22 23 BUN 6* 8* 9 CREATININE 0.46* 0.60 0.55 No results for input(s): GLU in the last 72 hours. Other Laboratory - Imaging Studies: Reviewed and as per electronic record. CxR/CT images reviewed by me when available. CXR reviewed. Alejandro Georges MD 01/07/22 * Hugh Marsh - 01/07/2022 7:30 AM EDT Images from the original note were not included. Med Team Progress Note Jaimie Mcgovern : 1945(76 y.o.) Date: January 07, 2022 Med Team: Chayo Attending: Dr. Acosta Chief Complaint: BL pleural effusions Subjective: - No acute events overnight. - Currently, patient pain is well tolerated. States not to bothersome. Patient seems to have depressed mode. Patient stated daughter in law is coming today and she is going to the prison. - Patient stable for DC to [facility] Review of Systems Constitutional: Negative for chills, diaphoresis and fever. HENT: Positive for trouble swallowing. Negative for congestion and sore throat. Eyes: Negative for pain and visual disturbance. Respiratory: Positive for shortness of breath. Negative for cough and chest tightness. Cardiovascular: Negative for chest pain and leg swelling. Gastrointestinal: Positive for diarrhea. Negative for abdominal pain, blood in stool, constipation,nausea and vomiting. Endocrine: Negative for polydipsia and polyuria. Genitourinary: Negative for dysuria, frequency and hematuria. Musculoskeletal: Negative for arthralgias and myalgias. Skin: Negative for rash and wound. Neurological: Negative for dizziness, weakness, light-headedness, numbness and headaches. Psychiatric/Behavioral: Negative for confusion and sleep disturbance. Last two days had sad affect All other systems reviewed and are negative. Scheduled Meds: furosemide 20 mg Oral Daily spironolactone 25 mg Oral Daily nicotine 1 patch TransDERmal Daily folic acid 1 mg Oral Daily thiamine mononitrate 100 mg Oral Daily QUEtiapine 50 mg Oral Nightly potassium chloride 40 mEq Oral BID [Held by provider] polyethylene glycol 17 g Oral Daily levothyroxine 50 mcg Oral Daily sodium chloride flush 5-40 mL IntraCATHeter Q8H sodium chloride flush 5-40 mL IntraVENous 2 times per day acetaminophen 1,000 mg Oral 3 times per day lidocaine 1 patch TransDERmal Daily [Held by provider] sennosides-docusate sodium 1 tablet Oral BID [Held by provider] bisacodyl 5 mg Oral Daily enoxaparin 40 mg SubCUTAneous Daily Continuous Infusions: dextrose sodium chloride PRN meds used in last 24hrs: Oxycodone 10mg x3 Melatonin 0.3mg x1 Objective: BP (!) 142/70 Pulse 69 Temp 97 F (36.1 C) (Temporal) Resp 17 Ht 5' (1.524 m) Wt 111 lb 5.3 oz (50.5 kg) SpO2 92% BMI 21.74 kg/m Physical Exam Vitals reviewed. Constitutional: General: She is not in acute distress. Appearance: She is well-developed. She is ill-appearing. HENT: Right Ear: Hearing and external ear normal. Left Ear: Hearing and external ear normal. Nose: Nose normal. Mouth/Throat: Mouth: Mucous membranes are moist. Pharynx: Oropharynx is clear. Eyes: General: Lids are normal. Extraocular Movements: Extraocular movements intact. Conjunctiva/sclera: Conjunctivae normal. Comments: Pupils equal and round Neck: Thyroid: No thyromegaly or thyroid tenderness. Cardiovascular: Rate and Rhythm: Normal rate and regular rhythm. Heart sounds: Normal heart sounds, S1 normal and S2 normal. No murmur heard. No friction rub. No gallop. Pulmonary: Effort: No respiratory distress. Breath sounds: Normal breath sounds. No wheezing. Chest: Breasts: Right: No supraclavicular adenopathy. Left: No supraclavicular adenopathy. Abdominal: General: Bowel sounds are normal. Palpations: Abdomen is soft. There is no mass. Tenderness: There is abdominal tenderness. Comments: No hepatosplenomegaly Musculoskeletal: Cervical back: Full passive range of motion without pain and neck supple. Right lower leg: No edema. Left lower leg: No edema. Lymphadenopathy: Cervical: No cervical adenopathy. Upper Body: Right upper body: No supraclavicular adenopathy. Left upper body: No supraclavicular adenopathy. Skin: General: Skin is warm and dry. Findings: No rash. Neurological: Mental Status: She is alert and oriented to person, place, and time. Sensory: Sensation is intact. Deep Tendon Reflexes: Reflexes are normal and symmetric. Psychiatric: Mood and Affect: Affect normal. Cognition and Memory: Memory normal. Judgment: Judgment normal. Comments: Normal [facility] within last 24 hours Lab Results Component Value Date/Time WBC 10.8 (H) 01/07/2022 12:42 AM Hemoglobin 11.2 (L) 01/07/2022 12:42 AM Hematocrit 34.9 (L) 01/07/2022 12:42 AM Platelets 725 (H) 01/07/2022 12:42 AM MCV 106.4 (H) 01/07/2022 12:42 AM Lab Results Component Value Date/Time Sodium 136 01/07/2022 12:42 AM Potassium 4.8 01/07/2022 12:42 AM Chloride 105 01/07/2022 12:42 AM CO2 23 01/07/2022 12:42 AM BUN 9 01/07/2022 12:42 AM Creatinine 0.55 01/07/2022 12:42 AM Glucose 86 01/07/2022 12:42 AM Calcium 8.6 01/07/2022 12:42 AM Assessment and Plan: Pneumomediastinum Cecal Pneumatosis B/L pleural effusions Elevated procalcitonin - CT Chest 12/27: No presence of an esophageal injury. Fairly extensive pneumomediastinum, spanning the level of the thyroid gland of the gastroesophageal junction. Large right and small left pleural effusions with associated atelectatic change - Vitals: HDS, afebrile - Labs: LA 1.6 and downtrending, WBC 12.3 - Procal elevated from 6 to 23 on (01/01), procal recently at 14. Continue to trend - Fluid cxs negative, bcx x1 showing coag neg staph, likely contaminant - S/p thoracentesis 12/29 with 500 ccs sita colored serous fluid noted, exudative etiology, neg cytology - S/p 01/01 Thoracentesis with right pigtail to water seal (440cc) - cultures came back, showed coag neg staph, concerned for contamination - Per Pulmonology: Continue with goal O2 92% given COPD, acapella, IS, duonebs BID. - Per Palliative: Douneb and NaCl decreased from qid/tid to bid. Recommend PO morphine - Order spirometry - Continue diuresis with lasix and aldactone - Chest tube removed on 01/04 - Follow-up outpatient Pulm - Per ID: elevated procal likely secondary to post-procedural etiology, keep monitoring for s/s of infection. ID still following - Zoysn completed - 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 following, continue with ensure, soft/easy chew diet - Serial abdominal exams - Protonix IV daily - CT surgery following, general surgery signed off - Patient to IR for thoracentesis of pleural effusion, 40cc fluid removed -X-ray 01/06 shows pleural effusion still present - Patient will be discharged w 50mg 1 a day aldactone and 20mg lasix - Stop potassium supplement - Pt stable for discharge Chronic RUQ/R chest pain - Moderate pain compared to admission, pt s/p thoracentesis and R pigtail placement. Continue monitoring - Stop IV and PO morphine - Scheuled tylenol, oxy prn - Watch use of oxy, adjust if necessary as pain has improved and chest tube removed - Currently on Oxycodone 10mg q4h - Lido patch for R chest pain Hepatic Cirrhosis - Likely secondary to EtOH liver cirrhosis - CT Chest 12/27 showing evidence of hepatic cirrhosis - ALT 14, AST 29, ALP 91 - Continue monitoring liver enzymes Elevated Troponin Secondary to Demand Ischemia Prolonged QTc - elevated troponin likely due to ischemic demand from acute illness- MAP goal >65, no issues atthis time - trop 0.124 12/30 from 0.162 12/29 - Hydralazine and labetalol prn antihypertensives for SBP>160 - 12/29 EKG: NSR 116, Qtc 461 - Continue tele - Cardiology consulted, pending recs - Avoid QT prolonging meds Acute metabolic encephalopathy Declining Functional Status - Developed AMS after admission to ICU. Likely multifactorial in setting of EtOH withdrawal, polypharmacy, hospital-acquired delirium - Patient more at baseline, A&Ox3. was altered upon admission q8h seroquel for delirium - Melatonin nightly - Geriatrics and palliative care following - PT/OT following Urinary Retention - Denies sxs, I/O net -1.6L - urine antigens negaive - Bladder scan 12/28 400ccs - Costa removed 01/03 - Continue monitoring I/O's Macrocytic Anemia - Hgb 10.8, MCV 106.8, overall stable - Likely secondary to EtOH use disorder - B12 wnl - RBC morphology 01/02 overall unremarkable - Continue monitoring H/H Alcohol Use Disorder - Patient has 2-3 glasses of wine daily, not interested in cessation at this time - No withdrawal symptoms noted - folic acid and thiamine - Last dose of scheduled phenobarb 01/02 - [facility] protocols stopped Tobacco Abuse - Pt smokes 1ppd - Continue encouraging cessation Hypothyroidism - TSH wnl on admission - Continue home synthroid 50 mcg COPD - Continue with goal O2 92% given COPD, acapella, IS, duonebs q4h, 3% nebs TID - Pulmonology following - OP pulm follow-up Disposition: SNF ([facility]) when patient is medically stable per surgery recs. - Goals of Care: FULL CODE - DVT Prophylaxis: lovenox 40 q24h - creatinine clearance > 30 - GI Prophylaxis: Not Indicated - Diet: General Associated attestation - Mary Acosta DO - 01/07/2022 6:02 PM EDT I have discussed the care of Jaimie AvendanoMonyjada with the medical student and/or resident. I have personally taken a history, examined the patient, and performed the associated medical decision making activities. I have reviewed & verified the attested documentation. Unless otherwise noted below, this documentation reflects the history, physical exam, and medical decision making that I performed myself. Please see below for my personal highlights or additions to the note. Patient seen and examined by myself on 01/07/22 -ok for d/c to SNF today. D/W TCC. -has been getting daily K replacement so will increase aldactone to 50daily w/lasix 20 and hold K replacement as is at 4.8; OLIVERIO w/instructions for repeat BMP to check K * Alejandro Georges MD - 01/06/2022 3:14 PM EDT Images from the original note were not included. 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 Hypoxemia - now resolved Emphysema, likely COPD Nicotine dependence, not ready to quit Pneumatosis/pneumomediastinum - asympatomatic and w/o evidence of esophageal perforation Recommendations: Chest tube has been out for 2 days CXR with small to mod residual effusion US abd confirms cirrhotic liver, but no ascites; presentation is still most consistent with hepatichydrothorax Patient stable on room air Suggest therapeutic thoracentesis to remove residual fluid; avoid chest tubes in future Suggest standing diuretics as outpatient; continue aldactone; suggest furosemide 20mg daily on discharge Will arrange outpatient pulm follow-up Interval History/Event Changes: - no acute events overnight - on room air - mild pain at previous chest tube site, improving - getting closer to discharge Allergies Allergies Allergen Reactions Latex Azithromycin did not work Bisoprolol-Hydrochlorothiazide did not work Review of Systems A pertinent review of systems was performed and was otherwise non-contributory. Vitals- BP 130/64 Pulse 75 Temp 98.5 F (36.9 C) (Temporal) Resp 18 Ht 5' (1.524 m) Wt 111 lb 5.3 oz (50.5 kg) SpO2 95% BMI 21.74 kg/m Tmax: Temp (24hrs), Av.8 F (36.6 C), Min:97.1 F (36.2 C), Max:98.5 F (36.9 C) Hemodynamics: Cuff: Systolic (24hrs), Av , Min:116 , Max:133 /Diastolic (24hrs), Av, Min:64, Max:68 Cuff MAP:MAP (mmHg) Av.5 Min: 67 Max: 163 P: Pulse Av.5 Min: 54 Max: 82 Observed RR: Resp Av.5 Min: 18 Max: 20 Observed O2 sats: SpO2 Av.1 % Min: 78 % Max: 100 % Intake/Output Summary (Last 24 hours) at 01/06/2022 1514 Last data filed at 01/05/2022 1900 Gross per 24 hour Intake 850 ml Output -- Net 850 ml Physical exam- General appearance: Not ill appearing, alert, no converstional dyspnea Head: Normocephalic, without obvious abnormality, atraumatic Eyes:Pupils bilateral equal and reactive, EOM intact, conjunctiva - no icterus , no injection Throat: Clear, no lesions, Mallampti =1, no tonsillar eythema or edema Neck: Supple, symmetrical, trachea midline, no significant lymphadenopathy Lungs: Diminshed at bases, scattered rhonchi, no wheeze Heart: RRR, S1, S2 normal, no murmur, click, rub or gallop Abdomen: soft, non-tender, nondistended. Bowel sounds normal Extremities: extremities normal, atraumatic, no cyanosis, edema Musculoskeletal - No deformities Skin: Skin color, texture, turgor normal. No rashes or lesions Neurological: No focal deficits, cranial nerves grossly intact, sensations intact Psychiatric : Mood and effect normal , alert and oriented times 4 Routine labs: Recent Labs 01/04/22 0111 01/05/22 0058 01/06/22 0503 WBC 10.0 13.4* 12.3* HGB 10.7* 11.6* 10.9* HCT 30.9* 35.7 33.4* PLT 451* 500* 647* Recent Labs 01/04/22 0111 01/05/22 0058 01/06/22 0503 NA 137 133* 137 K 4.0 4.7 4.2 CL 108* 108* 107 CO2 22 17* 22 BUN 10 6* 8* CREATININE 0.49* 0.46* 0.60 MG 2.1 -- -- PHOS 4.6* -- -- No results for input(s): GLU in the last 72 hours. Other Laboratory - Imaging Studies: Reviewed and as per electronic record. CxR/CT images reviewed by me when available. CXR reviewed. Alejandro Georges MD 01/06/22 * Maritza Davis RN - 01/06/2022 3:07 PM EDT Patient arrived to Ultrasound department for thoracentesis. History, medications and allergies reviewed. Dr. Liao in to discuss procedure and informed consent obtained. Pt lying on left side in bed. Right upper back scanned, marked and prepped in sterile fashion. 40 of tea colored fluid removed. Bandaid applied. Patient tolerated procedure well. Pt transported to [place] [id number] * ELIZ Buck - 01/06/2022 12:35 PM EDT Occupational Therapy Facility/Department: [facility] Occupational Therapy Treatment Name: Jaimie Mcgovern : 1945 Date of Service: 01/06/2022 Discharge Recommendations: Subacute/Jail Facility Assessment Assessment: Progressing toward goals; would be unable to complete daily routines at home. At this time,suggest SNF level therapies at discharge. Plan Plan Comment: Cont OT per POC Subjective Subjective: Pt in bed, aqua K pad on but not warm. Adjusted k-pad hoses with immediate result. Agrees to OT. c/o abdominal pain 11/01. Objective Balance Sitting: (supv at EOBduring functional reaching task) Standing: (CGA static stand) Gait Overall Level of Assistance: (Funct amb short distance in room with FWW, min assist) Toilet Transfers Equipment Used: Standard bedside commode Toilet Transfer: Supervision ADL Grooming: Supervision (seated EOB) LE Dressing: Minimal assistance (for standing portion) Toileting: Supervision (seated hygiene) Bed mobility Supine to Sit: Minimal assistance Sit to Supine: Contact guard assistance Transfers Sit to stand: Minimal assistance Stand to sit: Contact guard assistance AM-PAC Score [facility] Inpatient Daily Activity Raw Score: 16 (01/06/221323) AM-[facility] Inpatient ADL T-Scale Score : 35.96 (01/06/221323) ADL Inpatient CMS 0-100% Score: 53.32 (01/06/221323) ADL Inpatient CMS G-Code Modifier : CK (01/06/221323) Goals Short Term Goal 1: Static sitting balance to CGA during unilateral UE task- --GOAL MET Short Term Goal 2: Bed mobility min assist as a precursor to functional tasks- GOAL MET Short Term Goal 3: Pt to keep eyes open 50% of session-Met 01/04/2022 Short Term Goal 4: Toilet transfer with mod assist-Progressing Therapy Time Individual Concurrent Group Co-treatment Time In 1210 Time Out 1235 Minutes 25 Timed Code Treatment Minutes: (Funct--1; Self--1) ELIZ Allison * Aster Parks PTA - 01/06/2022 11:24 AM EDT Physical Therapy Facility/Department: [facility] Physical Therapy Daily Treatment Note Name: Jaimie Mcgovern : 1945 Date of Service: 01/06/2022 Discharge Recommendations: Subacute/Jail Facility Patient Diagnosis(es): The encounter diagnosis was Pneumatosis of intestines. Past Medical History: has a past medical history of Alcoholic cirrhosis (HCC), Demand ischemia (HCC), Hypothyroid, and Pneumomediastinum (HCC). Past Surgical History: has a past surgical history that includes Cholecystectomy; Appendectomy; Hysterectomy; and CT GUIDED PLEURAL DRAINAGE W CATH PERC (01/01/2022). Assessment Body Structures, Functions, Activity Limitations Requiring Skilled Therapeutic Intervention: Decreased balance;Decreased endurance;Decreased functional mobility Assessment: Pt requires min assist for bed mobility, transfers, and ambulation short distance. Pt with less SOB with ambulation this session. No PT goals met this session. Recommend SNF at discharge. Treatment Diagnosis: weakness, difficulty walking Requires PT Follow-Up: Yes Activity Tolerance Activity Tolerance: Patient limited by fatigue;Patient limited by endurance Plan Plan Plan: 2-3 times per week Plan weeks: 4 weeks Current Treatment Recommendations: Strengthening, Balance training, Functional mobility training, Transfer training, Gait training, Endurance training, Neuromuscular re-education, Safety education & training, Patient/Caregiver education & training, Equipment evaluation, education, & procurement, Therapeutic activities Safety Devices Type of Devices: Left in bed, Gait belt, Patient at risk for falls, Nurse notified, Call light within reach Restraints Restraints Initially in Place: No Restrictions Restrictions/Precautions Restrictions/Precautions: Fall Risk, Up as Tolerated Required Braces or Orthoses?: No Position Activity Restriction Other position/activity restrictions: tele Subjective General Chart Reviewed: Yes Family / Caregiver Present: No Diagnosis: Pneumatosis of intestines Follows Commands: Within Functional Limits Subjective Subjective: Pt supine in the bed, agrees to PT. On room air. Social/Functional History Social/Functional History Lives With: Alone Type of Home: (Senior Living) Home Layout: One level Home Access: Level entry Bathroom Shower/Tub: Tub/Shower unit Bathroom Toilet: Standard Bathroom Equipment: Grab bars in shower, Shower chair Bathroom Accessibility: Accessible Home Equipment: Cane, Walker, rolling (Pt unclear how often she is using these devices.) Receives Help From: Family ADL Assistance: Independent Homemaking Assistance: Needs assistance Homemaking Responsibilities: No Ambulation Assistance: Independent Transfer Assistance: Independent [employer] Dies Loader: No Mode of Transportation: Family Occupation: Retired Additional Comments: Pt poor historian this date and states she is confused at the beginning of session. Vision/Hearing Cognition Objective Heart Rate: 75 Heart Rate Source: Monitor BP: 133/68 BP Location: Left Arm Patient Position: Sitting MAP (Calculated): 89.67 Resp: 18 SpO2: 91 % O2 Device: None (Room air) Bed mobility Supine to Sit: Minimal assistance Sit to Supine: Stand by assistance Scooting: Stand by assistance Transfers Sit to Stand: Moderate Assistance;Minimal Assistance (min to mod assist) Stand to sit: Minimal Assistance Ambulation Surface: level tile Device: Rolling Walker Assistance: Minimal assistance Gait Deviations: Slow Leighann;Decreased step length;Decreased step height Distance: 12 feet Comments: SOB Stairs/Curb Stairs?: No Exercise Treatment: BLE ther ex: supine- ankle pumps. QS, GS, hip abduction, heel slides. seated- LAQ. all x 10 reps AROM Breathing Techniques: I.S. 250mL x 5 reps OutComes Score AM-PAC Score AM-[facility] Inpatient Mobility Raw Score : 13 (01/05/221150) AM-PAC Inpatient T-Scale Score : 36.74 (01/05/221150) Mobility Inpatient CMS 0-100% Score: 64.91 (01/05/221150) Mobility Inpatient CMS G-Code Modifier : CL (01/05/221150) Goals Short Term Goals Time Frame for Short term goals: 4 weeks Short term goal 1: bed mobility, independent - progressing Short term goal 2: transfers with/without device, modified independent - progressing Short term goal 3: ambulation 50ft with/without device, modified independent - progressing Patient Goals Patient goals : none stated Education Patient Education Education Given To: Patient Education Provided: Role of Therapy;Plan of Care Education Method: Verbal Barriers to Learning: None Education Outcome: Verbalized understanding Therapy Time Individual Concurrent Group Co-treatment Time In 1045 Time Out 1109 Minutes 24 Timed Code Treatment Minutes: (GT, TP) *PPE per facility policy used during session* Aster Parks PTA * Darlene Hanson RCP - 01/06/2022 9:30 AM EDT [facility] Respiratory Care Department Progress Note As part of the Respiratory Assessment Program (RAP), the following Respiratory Therapist evaluationhas been completed, including a chart review and clinical/physical assessment. Respiratory Therapist RAP Evaluation Guideline Points 0 1 2 3 4 Points Strongly Consider History Factor No Pulmonary conditions Stable Pulmonary condition(s) Surgery or Intervention that may impact Pulmonary system (at risk) Surgery or Intervention that is impacting Pulmonary system Active Exacerbation of Pulmonary Condition 0 Respiratory Pattern Regular, RR= 12-18 MISHRA or Increased RR= 19-24 Irregular, or RR= 25-30 SOB, talk in short sentences, or RR= 31-35 Severe SOB, accessory muscle use, one word answers, or RR>35 0 Aerosol Med(s), High Flow O2 Breath Sounds Clear Diminished in 1 lobe Diminished in ? 2 lobes Adventitious breath sounds Coarse crackles, Wheezes, or Diminished in >2 lobes 2 Aerosol Med(s), Bronchial Hygiene, Hyperinflation Cough & Sputum Strong cough, no secretion retention or production Weak cough, no secretion retention or production Weak cough, w/ production (less often than Q2hr), or secretion retention No cough, w/ secretion retention or production (less often than Q2hr) Significant secretion production (more often than Q2hr) or mucus plug 0 Aerosol Med(s), Bronchial Hygiene, Hyperinflation Level of Activity Ambulatory Ambulatory with Assist Up in chair or edge of bed (dangle) Non-ambulatory, bedridden with active ROM Completely paralyzed or without active ROM 0 Triage 5 0-2 Triage 4 3-5 Triage 3 6-10 Triage 2 11-14 Triage 1 ?15 Total 2 Triage Score = 5 TRIAGE SCORING - SUGGESTED FREQUENCIES Aerosol Therapy Bronchial Hygiene Hyperinflation Triage Score Q4h & PRN 1 Q4hWA (QID) & PRN 2 TID & PRN 3 BID & PRN 4 PRN 5 Therapy(s) Indicated Yes/No Aerosol Medication no Hyperinflation no Bronchial Hygiene no High Flow Oxygen no RT to enter/modify frequency of treatment order in EMR/EHR to match this RAP evaluation. Based on this RAP evaluation the following therapy is being initiated: Albuterol At the following frequency: prn Comments: Patient has chest tube removed, breathing looks good, RA 91% her baseline. Change to prn Thank you for involving Respiratory in the care of this patient, * Kristopher Todd, TRANSPORT COMPANY MANAGER - [employer] SHEETS SUPERVISOR - 01/06/2022 9:04 AM EDT Images from the original note were not included. [facility] Geriatric Medicine Inpatient Consult Service Admission Date: 12/27/2021 Assessment Principal Problem: Pneumomediastinum (HCC) Active Problems: Demand ischemia of myocardium (HCC) Pneumatosis of intestines Declining functional status At risk for delirium Alcohol abuse Acute respiratory insufficiency Shortness of breath Pleural effusion on right Palliative care encounter Elevated troponin Severe malnutrition (HCC) Alcoholic cirrhosis (HCC) Hypoxia Acute encephalopathy Cognitive deficits Constipation, slow transit Debility Resolved Problems: * No resolved hospital problems. * Plan Acute Encephalopathy --Resolved --Etiology likely medications, alcohol withdrawal, hypoxia --Encourage PO intake, time up in chair, family visits, supervised ambulation, and sleep hygiene --If agitated, assess for and consider treating for pain --QTc= 461 --No antipsychotic unless patient is danger to self/others/treatment --Continue PRN melatonin at HS --Monitor for constipation/urinary retention - last BM 01/05 --Possible medication contributions: phenobarb ( no longer on CIWA) Cognitive deficits --+history of cognitive decline at home. + history of decline in IADL's --TSH WNL, B12 WNL --Head imaging - none available --History concerning for baseline dementia, due to alcohol use + vascular risk factors --Recommend outpatient follow up at [facility] formore in depth cognitive evaluation when in usual state of health. Alcohol Abuse --Now off phenobarb. --Pt aware of recommendation to stop drinking, "not gonna happen" Constipation --Improved --Patient has two scheduled stimulant laxatives ordered: bisacodyl and senna- docusate. Recommend discontinuing scheduled bisacodyl, now on hold Declining functional status --Related to acute medical isuses, deconditioning --Continue PT/OT as able while inpatient --Anticipate d/c to SNF for ongoing daily PT/OT Follow-up: will sign off, please call if questions Subjective Chief Complaint: abd/chest pain, shortness of breath Geriatrics consulted for frailty, lives independently, heavy ETOH/Tobacco use HPI- The patient is known to me. 76 y.o. year-old female admitted to acute care from home for abd/chest pain, sob. Diagnosed with cecal pneumatosis/ pneumomediastinum. Per family report, history of short-term memory loss at home prior to hospitalization. Also has history of delirium with UTI. Long-standing alcohol and tobacco use. Interval History: Transferred to telemetry. 6104 Possible DC SNF today? CT removed 01/04 In bed, awake, alert, with bright affect. Oriented to place, self, month, year. Denies feeling of confusion/agitation. Appears calm and encephalopathy resolved. Complains of pain in L side at site of CT(removed). Winces with pain when moving, but states pain is mostly under control. Reports that she walked around her room this morning with PT. Did well on her feet. Discussed with RN Seen by PT, min assist, ambulated 5 steps to the left, recommending SNF Review of Systems Constitutional: Positive for appetite change and fatigue. HENT: Negative for sore throat and trouble swallowing. Eyes: Positive for visual disturbance (slightly blurry vision). Respiratory: Negative for cough, chest tightness and shortness of breath. Gastrointestinal: Negative for abdominal pain, constipation and nausea. Genitourinary: Negative for difficulty urinating and dysuria. Musculoskeletal: Positive for myalgias. Neurological: Negative for dizziness and headaches. Psychiatric/Behavioral: Negative for agitation, confusion and hallucinations. Objective BP 133/68 Pulse 75 Temp 98.5 F (36.9 C) (Temporal) Resp 18 Ht 5' (1.524 m) Wt 111 lb 5.3 oz (50.5 kg) SpO2 91% BMI 21.74 kg/m Intake/Output Summary (Last 24 hours) at 01/06/2022 0904 Last data filed at 01/05/2022 1900 Gross per 24 hour Intake 850 ml Output -- Net 850 ml No data found. Current Facility-Administered Medications: ipratropium-albuterol (DUONEB) nebulizer solution 1 ampule, 1 ampule, Inhalation, BID sodium chloride (Inhalant) 3 % nebulizer solution 4 mL, 4 mL, Nebulization, BID spironolactone (ALDACTONE) tablet 25 mg, 25 mg, Oral, Daily hydrALAZINE (APRESOLINE) injection 10 mg, 10 mg, IntraVENous, Q4H PRN labetalol (NORMODYNE;TRANDATE) injection 10 mg, 10 mg, IntraVENous, Q4H PRN nicotine (NICODERM CQ) 21 MG/24HR 1 patch, 1 patch, TransDERmal, Daily folic acid (FOLVITE) tablet 1 mg, 1 mg, Oral, Daily thiamine mononitrate tablet 100 mg, 100 mg, Oral, Daily QUEtiapine (SEROQUEL) tablet 50 mg, 50 mg, Oral, Nightly potassium chloride (KLOR-CON) packet 40 mEq, 40 mEq, Oral, BID [Held by provider] bisacodyl (DULCOLAX) suppository 10 mg, 10 mg, Rectal, Daily PRN Glucose (TRUEPLUS) oral gel 15 g, 15 g, Oral, PRN dextrose 50 % IV solution, 12.5 g, IntraVENous, PRN glucagon (rDNA) injection 1 mg, 1 mg, IntraMUSCular, PRN dextrose 5 % solution, 100 mL/hr, IntraVENous, PRN [Held by provider] polyethylene glycol (GLYCOLAX) packet 17 g, 17 g, Oral, Daily levothyroxine (SYNTHROID) tablet 50 mcg, 50 mcg, Oral, Daily melatonin SL liquid 0.3 mg, 0.3 mg, SubLINGual, Nightly PRN sodium chloride flush 0.9 % injection 5-40 mL, 5-40 mL, IntraCATHeter, Q8H sodium chloride flush 0.9 % injection 5-40 mL, 5-40 mL, IntraCATHeter, PRN sodium chloride flush 0.9 % injection 5-40 mL, 5-40 mL, IntraVENous, 2 times per day sodium chloride flush 0.9 % injection 5-40 mL, 5-40 mL, IntraVENous, PRN 0.9 % sodium chloride infusion, , IntraVENous, PRN acetaminophen (TYLENOL) tablet 1,000 mg, 1,000 mg, Oral, 3 times per day oxyCODONE (ROXICODONE) immediate release tablet 5 mg, 5 mg, Oral, Q4H PRN OR oxyCODONE (ROXICODONE) immediate release tablet 10 mg, 10 mg, Oral, Q4H PRN lidocaine 4 % external patch 1 patch, 1 patch, TransDERmal, Daily [Held by provider] sennosides-docusate sodium (SENOKOT-S) 8.6-50 MG tablet 1 tablet, 1 tablet, Oral, BID [Held by provider] bisacodyl (DULCOLAX) EC tablet 5 mg, 5 mg, Oral, Daily ondansetron (ZOFRAN) injection 4 mg, 4 mg, IntraVENous, Q6H PRN enoxaparin (LOVENOX) injection 40 mg, 40 mg, SubCUTAneous, Daily Physical Exam Constitutional: No acute distress, thin, frail, disheveled Psych: Mood and affect Bright. Good eye contact. Cardiovascular: Regular rate and rhythm, no murmur, no BLE edema Pulmonary/Chest: Diminished to auscultation bilaterally, normal respiratory effort, no coughing noted Abdominal: Soft, not distended, no tenderness to palpation, BS present, Neurological: alert, inattentive, speech is clear but vague , oriented to month, year, place, and self, follows commands, no tremor and no rigidity Skin: warm and dry, no visible rashes or wounds Labs and Imaging: Recent Results (from the past 24 hour(s)) Basic Metabolic Panel w/ Reflex to MG Collection Time: 01/06/22 5:03 AM Result Value Ref Range Sodium 137 135 - 145 mmol/L Potassium 4.2 3.5 - 5.1 mmol/L Chloride 107 98 - 107 mmol/L CO2 22 22 - 30 mmol/L Anion Gap 8 3 - 13 mmol/L Glucose 107 (H) 70 - 100 mg/dL BUN 8 (L) 9 - 20 mg/dL Creatinine 0.60 0.52 - 1.25 mg/dL eGFR >90.0 >60 mL/min EGFR IF NonAfrican [place] 89.5 >60 mL/min Calcium 8.4 8.4 - 10.4 mg/dL CBC with Auto Differential Collection Time: 01/06/22 5:03 AM Result Value Ref Range WBC 12.3 (H) 3.6 - 10.7 10*3/uL RBC 3.17 (L) 3.80 - 5.20 10*6/uL Hemoglobin 10.9 (L) 11.7 - 16.0 g/dL Hematocrit 33.4 (L) 35.0 - 47.0 % MCV 105.5 (H) 79.0 - 98.0 fL MCH 34.5 (H) 26.0 - 34.0 pg MCHC 32.7 32.0 - 36.0 % RDW 17.8 (H) 11.5 - 14.5 % Platelets 647 (H) 140 - 440 10*3/uL MPV 7.3 (L) 7.4 - 12.4 fL Granulocytes % 83.1 (H) 40.0 - 80.0 % Lymphocyte % 6.3 (L) 20.0 - 40.0 % Monocytes 8.3 2.0 - 10.0 % Eosinophils 0.9 (L) 1.0 - 6.0 % Basophils 1.4 0.0 - 2.0 % Absolute Neut # 10.5 (H) 1.8 - 7.0 10*3/uL Absolute Lymph # 0.8 (L) 1.0 - 4.3 10*3/uL Absolute [place] # 1.0 (H) 0.0 - 0.8 10*3/uL Absolute Eos # 0.1 0.0 - 0.5 10*3/uL Absolute Baso # 0.2 0.0 - 0.2 10*3/uL Lab Results Component Value Date TSH 2.263 12/29/2021 Lab Results Component Value Date [id number] 12/30/2021 No results found for: VITD25 Reviewed: active problem list, medication list, lab results, * Hugh Marsh - 01/06/2022 7:38 AM EDT Images from the original note were not included. Med Team Progress Note Jaimie Mcgovern : 1945(76 y.o.) Date: January 06, 2022 Med Team: Chayo Attending: Chief Complaint: BL P Subjective: - No acute events overnight. - Currently, patient still states having some RUQ/chest pain but is decently controlled through pain regiment. Also endorses pain with swallowing and deep breathes. Has no other complaints. - For discharge stated children will decide where she will go, will contact them. Review of Systems Constitutional: Negative for chills, diaphoresis and fever. HENT: Positive for trouble swallowing (states it cause her right side chest pain to swallow due to chest tube placement). Negative for rhinorrhea and sore throat. Eyes: Negative for pain and visual disturbance. Respiratory: Positive for shortness of breath. Negative for cough and chest tightness. Cardiovascular: Negative for chest pain and leg swelling. Gastrointestinal: Positive for diarrhea. Negative for abdominal pain, blood in stool, constipation,nausea and vomiting. Endocrine: Negative for polydipsia and polyuria. Genitourinary: Negative for dysuria, frequency and hematuria. Musculoskeletal: Negative for arthralgias and myalgias. Skin: Negative for rash and wound. Neurological: Negative for dizziness, weakness, light-headedness, numbness and headaches. Psychiatric/Behavioral: Negative for confusion and sleep disturbance. All other systems reviewed and are negative. Scheduled Meds: ipratropium-albuterol 1 ampule Inhalation BID sodium chloride (Inhalant) 4 mL Nebulization BID spironolactone 25 mg Oral Daily nicotine 1 patch TransDERmal Daily folic acid 1 mg Oral Daily thiamine mononitrate 100 mg Oral Daily QUEtiapine 50 mg Oral Nightly potassium chloride 40 mEq Oral BID [Held by provider] polyethylene glycol 17 g Oral Daily levothyroxine 50 mcg Oral Daily sodium chloride flush 5-40 mL IntraCATHeter Q8H sodium chloride flush 5-40 mL IntraVENous 2 times per day acetaminophen 1,000 mg Oral 3 times per day lidocaine 1 patch TransDERmal Daily [Held by provider] sennosides-docusate sodium 1 tablet Oral BID [Held by provider] bisacodyl 5 mg Oral Daily enoxaparin 40 mg SubCUTAneous Daily Continuous Infusions: dextrose sodium chloride PRN meds used in last 24hrs: Melatonin 0.3mg Oxycodone 10mg x2 Objective: BP 133/68 Pulse 54 Temp 98.5 F (36.9 C) (Temporal) Resp 20 Ht 5' (1.524 m) Wt 111 lb 5.3 oz (50.5 kg) SpO2 92% BMI 21.74 kg/m Physical Exam Vitals reviewed. Constitutional: General: She is not in acute distress. Appearance: She is well-developed. She is ill-appearing. HENT: Right Ear: Hearing and external ear normal. Left Ear: Hearing and external ear normal. Nose: Nose normal. Mouth/Throat: Mouth: Mucous membranes are moist. Pharynx: Oropharynx is clear. Eyes: General: Lids are normal. Extraocular Movements: Extraocular movements intact. Conjunctiva/sclera: Conjunctivae normal. Comments: Pupils equal and round Neck: Thyroid: No thyromegaly or thyroid tenderness. Cardiovascular: Rate and Rhythm: Normal rate and regular rhythm. Heart sounds: Normal heart sounds, S1 normal and S2 normal. No murmur heard. No friction rub. No gallop. Pulmonary: Effort: Pulmonary effort is normal. No respiratory distress. Breath sounds: Normal breath sounds. No wheezing. Chest: Breasts: Right: No supraclavicular adenopathy. Left: No supraclavicular adenopathy. Abdominal: General: Bowel sounds are normal. Palpations: Abdomen is soft. There is no mass. Tenderness: There is abdominal tenderness. Comments: No hepatosplenomegaly Musculoskeletal: Cervical back: Full passive range of motion without pain and neck supple. Right lower leg: No edema. Left lower leg: No edema. Lymphadenopathy: Cervical: No cervical adenopathy. Upper Body: Right upper body: No supraclavicular adenopathy. Left upper body: No supraclavicular adenopathy. Skin: General: Skin is warm and dry. Findings: No rash. Neurological: Mental Status: She is alert and oriented to person, place, and time. Sensory: Sensation is intact. Deep Tendon Reflexes: Reflexes are normal and symmetric. Psychiatric: Mood and Affect: Mood and affect normal. Cognition and Memory: Memory normal. Judgment: Judgment normal. Comments: Normal insight [facility] within last 24 hours Lab Results Component Value Date/Time WBC 12.3 (H) 01/06/2022 05:03 AM Hemoglobin 10.9 (L) 01/06/2022 05:03 AM Hematocrit 33.4 (L) 01/06/2022 05:03 AM Platelets 647 (H) 01/06/2022 05:03 AM MCV 105.5 (H) 01/06/2022 05:03 AM Lab Results Component Value Date/Time Sodium 137 01/06/2022 05:03 AM Potassium 4.2 01/06/2022 05:03 AM Chloride 107 01/06/2022 05:03 AM CO2 22 01/06/2022 05:03 AM BUN 8 (L) 01/06/2022 05:03 AM Creatinine 0.60 01/06/2022 05:03 AM Glucose 107 (H) 01/06/2022 05:03 AM Calcium 8.4 01/06/2022 05:03 AM Assessment and Plan: Pneumomediastinum Cecal Pneumatosis B/L pleural effusions Elevated procalcitonin - CT Chest 12/27: No presence of an esophageal injury. Fairly extensive pneumomediastinum, spanning the level of the thyroid gland of the gastroesophageal junction. Large right and small left pleural effusions with associated atelectatic change - Vitals: HDS, afebrile - Labs: LA 1.6 and downtrending, WBC 12.3 - Procal elevated from 6 to 23 on (01/01), procal recently at 14. Continue to trend - Fluid cxs negative, bcx x1 showing coag neg staph, likely contaminant - S/p thoracentesis 12/29 with 500 ccs sita colored serous fluid noted, exudative etiology, neg cytology - S/p 01/01 Thoracentesis with right pigtail to water seal (440cc) - cultures came back, showed coag neg staph, concerned for contamination - Per Pulmonology: Continue with goal O2 92% given COPD, acapella, IS, duonebs BID. - Per Palliative: Douneb and NaCl decreased from qid/tid to bid. Recommend PO morphine - Order spirometry - Continue diuresis with lasix and aldactone - Chest tube removed on 01/04 - Follow-up outpatient Pulm - Per ID: elevated procal likely secondary to post-procedural etiology, keep monitoring for s/s of infection. ID still following - Zoysn completed - 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 following, continue with ensure, soft/easy chew diet - Serial abdominal exams - Protonix IV daily - CT surgery following, general surgery signed off - Pulm recs: Sent patient to IR for thoracentesis of pleural effusion, scheduled standard dose of lasix Chronic RUQ/R chest pain - Moderate pain compared to admission, pt s/p thoracentesis and R pigtail placement. Continue monitoring - Stop IV and PO morphine - Scheuled tylenol, oxy prn - Watch use of oxy, adjust if necessary as pain has improved and chest tube removed - Currently on Oxycodone 10mg q4h - Lido patch for R chest pain Hepatic Cirrhosis - Likely secondary to EtOH liver cirrhosis - CT Chest 12/27 showing evidence of hepatic cirrhosis - ALT 14, AST 29, ALP 91 - Continue monitoring liver enzymes Elevated Troponin Secondary to Demand Ischemia Prolonged QTc - elevated troponin likely due to ischemic demand from acute illness- MAP goal >65, no issues atthis time - trop 0.124 12/30 from 0.162 12/29 - Hydralazine and labetalol prn antihypertensives for SBP>160 - 12/29 EKG: NSR 116, Qtc 461 - Continue tele - Cardiology consulted, pending recs - Avoid QT prolonging meds Acute metabolic encephalopathy Declining Functional Status - Developed AMS after admission to ICU. Likely multifactorial in setting of EtOH withdrawal, polypharmacy, hospital-acquired delirium - Patient more at baseline, A&Ox3. was altered upon admission q8h seroquel for delirium - Melatonin nightly - Geriatrics and palliative care following - PT/OT following Urinary Retention - Denies sxs, I/O net -1.6L - urine antigens negaive - Bladder scan 12/28 400ccs - Costa removed 01/03 - Continue monitoring I/O's Macrocytic Anemia - Hgb 10.8, MCV 106.8, overall stable - Likely secondary to EtOH use disorder - B12 wnl - RBC morphology 01/02 overall unremarkable - Continue monitoring H/H Alcohol Use Disorder - Patient has 2-3 glasses of wine daily, not interested in cessation at this time - No withdrawal symptoms noted - folic acid and thiamine - Last dose of scheduled phenobarb 01/02 - CIWA protocols stopped Tobacco Abuse - Pt smokes 1ppd - Continue encouraging cessation Hypothyroidism - TSH wnl on admission - Continue home synthroid 50 mcg COPD - Continue with goal O2 92% given COPD, acapella, IS, duonebs q4h, 3% nebs TID - Pulmonology following - OP pulm follow-up Disposition: SNF ([facility]) when patient is medically stable per surgery recs. - Goals of Care: FULL CODE - DVT Prophylaxis: lovenox 40 q24h - creatinine clearance > 30 - GI Prophylaxis: Not Indicated - Diet: General Associated attestation - Mary Acosta DO - 01/06/2022 5:18 PM EDT I have discussed the care of Jaimie AvendanoMonyjada with the medical student and/or resident. I have personally taken a history, examined the patient, and performed the associated medical decision making activities. I have reviewed & verified the attested documentation. Unless otherwise noted below, this documentation reflects the history, physical exam, and medical decision making that I performed myself. Please see below for my personal highlights or additions to the note. Patient seen and examined by myself on 01/06/22 -pt w/increased SOB on my exam today. CXR w/reaccumulating effusion. Pulm following- plan for therapeutic thora today and scheduled diuresis -d/w TCC. Possible d/c to SNF 01/08 * Aster Parks, SHORT HAUL DRIVER - 01/05/2022 11:50 AM EDT Physical Therapy Facility/Department: [facility] Physical Therapy Daily Treatment Note Name: Jaimie Mcgovern : 1945 Date of Service: 01/05/2022 Discharge Recommendations: Subacute/Jail Facility Patient Diagnosis(es): The encounter diagnosis was Pneumatosis of intestines. Past Medical History: has a past medical history of Alcoholic cirrhosis (HCC), Demand ischemia (HCC), Hypothyroid, and Pneumomediastinum (HCC). Past Surgical History: has a past surgical history that includes Cholecystectomy; Appendectomy; Hysterectomy; and CT GUIDED PLEURAL DRAINAGE W CATH PERC (01/01/2022). Assessment Body Structures, Functions, Activity Limitations Requiring Skilled Therapeutic Intervention: Decreased balance;Decreased endurance;Decreased functional mobility Assessment: Pt requires min assist for bed mobility, transfers, and ambulation short distance. Pt with increased SOB with ambulation. SpO2 93% on room air before ambulation. 2L O2 on pt during ambulation and at 92% on 2L after ambulation. Pt's O2 drupped on room air during ambulation yesterday in PT session. Pt was SOB during ambulation, but was able to recover quicker this session. RN notified. No PT goals met this session. Recommend SNF at discharge. Requires PT Follow-Up: Yes Activity Tolerance Activity Tolerance: Patient limited by fatigue;Patient limited by endurance Activity Tolerance Comments: limited by SOB Plan Plan Plan: 2-3 times per week Plan weeks: 4 weeks Current Treatment Recommendations: Strengthening, Balance training, Functional mobility training, Transfer training, Gait training, Endurance training, Neuromuscular re-education, Safety education & training, Patient/Caregiver education & training, Equipment evaluation, education, & procurement, Therapeutic activities Safety Devices Type of Devices: Left in bed, Gait belt, Patient at risk for falls, Nurse notified, Call light within reach Restraints Restraints Initially in Place: No Restrictions Restrictions/Precautions Restrictions/Precautions: Fall Risk, Up as Tolerated Required Braces or Orthoses?: No Position Activity Restriction Other position/activity restrictions: tele Subjective General Chart Reviewed: Yes Family / Caregiver Present: No Diagnosis: Pneumatosis of intestines Follows Commands: Within Functional Limits Subjective Subjective: Pt supine in the bed, agrees to PT. On room air. Social/Functional History Social/Functional History Lives With: Alone Type of Home: (Senior Living) Home Layout: One level Home Access: Level entry Bathroom Shower/Tub: Tub/Shower unit Bathroom Toilet: Standard Bathroom Equipment: Grab bars in shower, Shower chair Bathroom Accessibility: Accessible Home Equipment: Cane, Walker, rolling (Pt unclear how often she is using these devices.) Receives Help From: Family ADL Assistance: Independent Homemaking Assistance: Needs assistance Homemaking Responsibilities: No Ambulation Assistance: Independent Transfer Assistance: Independent [employer] Dies Loader: No Mode of Transportation: Family Occupation: Retired Additional Comments: Pt poor historian this date and states she is confused at the beginning of session. Vision/Hearing Cognition Objective Heart Rate: 87 Heart Rate Source: Monitor BP: (!) 140/73 BP Location: Left Arm Patient Position: Semi fowlers MAP (Calculated): 95.33 Resp: 18 SpO2: 94 % O2 Device: None (Room air) Bed mobility Supine to Sit: Minimal assistance Sit to Supine: Minimal assistance Scooting: Minimal assistance Transfers Sit to Stand: Minimal Assistance Stand to sit: Minimal Assistance Ambulation Surface: level tile Device: Rolling Walker Other Apparatus: O2 (2L) Assistance: Minimal assistance Gait Deviations: Slow Leighann;Decreased step length;Decreased step height Distance: 12 feet Comments: SOB Stairs/Curb Stairs?: No Exercise Treatment: BLE ther ex: supine- ankle pumps. QS, GS, hip abduction, heel slides. seated- LAQ. all x 10 reps AROM Breathing Techniques: I.S. 250mL x 3 reps OutComes Score AM-PAC Score AM-PAC Inpatient Mobility Raw Score : 13 (01/05/22 115) [facility] Inpatient T-Scale Score : 36.74 (01/05/22 115) Mobility Inpatient CMS 0-100% Score: 64.91 (01/05/221150) Mobility Inpatient CMS G-Code Modifier : CL (01/05/221150) Goals Short Term Goals Time Frame for Short term goals: 4 weeks Short term goal 1: bed mobility, independent - progressing Short term goal 2: transfers with/without device, modified independent - progressing Short term goal 3: ambulation 50ft with/without device, modified independent - progressing Patient Goals Patient goals : none stated Education Patient Education Education Given To: Patient Education Provided: Role of Therapy;Plan of Care Education Method: Verbal Barriers to Learning: None Education Outcome: Verbalized understanding Therapy Time Individual Concurrent Group Co-treatment Time In 1048 Time Out 1112 Minutes 24 Timed Code Treatment Minutes: (GT, TP) *PPE per facility policy used during session* Aster Parks SHORT HAUL DRIVER * Maki Crystal, 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 - 01/05/2022 11:24 AM EDT Facility/Department: [facility] Dysphagia Treatment Note NAME: Jaimie Mcgovern : 1945 Patient Diagnosis(es): Patient Active Problem List Diagnosis Pneumatosis of intestines Declining functional status At risk for delirium Alcohol abuse Acute respiratory insufficiency Shortness of breath Pleural effusion on right Palliative care encounter Demand ischemia of myocardium (HCC) Pneumomediastinum (HCC) Elevated troponin Severe malnutrition (HCC) Alcoholic cirrhosis (HCC) Hypoxia Acute encephalopathy Cognitive deficits Constipation, slow transit Debility Allergies: Allergies Allergen Reactions Latex Azithromycin did not work Bisoprolol-Hydrochlorothiazide did not work Onset Date: 12/27/2021 Oxygen Level: was on Room air; now on 2 liters after walking with PT Current Diet Level: Easy To Chew Compensatory Techniques [x]Small bolus [x]Alternate bites/ sips [x]Position patient upright Pain: RN managing S: Patient is alert and cooperative; states appetite is still poor O: Assess for diet upgrade A: There is no difficulty completing mastication of a dry olayinka cracker. Patient achieves full oral clearance. Patient is able to drink water with a large bore straw without evidence of airway penetration. Patient denies dysphagia. There is no change in respiratory status. [x] Goal met [] Progressing as expected [] Progressing slower than expected [] Medical status inhibits participation [] Goals not addressed this session [] Goals revised this session [] Unable to show any progress towards functional goals [] Progress towards functional goal is gradual / fair Discharge Education: Spoke with the patient and RN. Communicated recommendation to upgrade to a regular diet. No additional dysphagia intervention required. P: Please upgrade to a regular diet. Speech therapy will sign off. Time Out: 1120 Session time: 15 minutes A KN95 mask, full face shield, gown and gloves were worn throughout this session. * Cristofer Valverde MD - 01/05/2022 9:35 AM EDT PULMONOLOGY CONSULT PROGRESS NOTE 01/05/2022 Hospital LOS: LOS: 9 days Interval History/Event Changes: Chest tube removed yesterday PM. Patient tolerated procedure well. Overnight, patient stated that she almost fell while getting out of bed to use commode. Patient states she did not fall completely but was able to get back into bed. Did not hit head and no other injury. Patient states she is feeling better since getting chest tube out yesterday. Patient is breathing comfortably on room air. Denies any new onset SOB, chest pain, fevers, chills, cough or hemoptysis. Allergies Allergies Allergen Reactions Latex Azithromycin did not work Bisoprolol-Hydrochlorothiazide did not work Review of Systems A pertinent review of systems was performed and was otherwise non-contributory. Vitals- BP (!) 140/73 Pulse 87 Temp 98.2 F (36.8 C) (Temporal) Resp 18 Ht 5' (1.524 m) Wt 111 lb 5.3 oz (50.5 kg) SpO2 94% BMI 21.74 kg/m Tmax: Temp (24hrs), Av.9 F (36.6 C), Min:97.7 F (36.5 C), Max:98.2 F (36.8 C) Hemodynamics: Cuff: Systolic (24hrs), Av , Min:140 , Max:155 /Diastolic (24hrs), Av, Min:73, Max:89 Cuff MAP:MAP (mmHg) Av.6 Min: 67 Max: 163 P: Pulse Av.3 Min: 72 Max: 89 Observed RR: Resp Av.6 Min: 18 Max: 28 Observed O2 sats: SpO2 Av.2 % Min: 78 % Max: 100 % Intake/Output Summary (Last 24 hours) at 01/05/2022 0935 Last data filed at 01/04/2022 1900 Gross per 24 hour Intake 850 ml Output -- Net 850 ml Physical exam- Physical Exam Constitutional: General: She is not in acute distress. Appearance: Normal appearance. She is ill-appearing. HENT: Head: Normocephalic and atraumatic. Right Ear: External ear normal. Left Ear: External ear normal. Nose: Nose normal. No congestion. Mouth/Throat: Mouth: Mucous membranes are moist. Pharynx: Oropharynx is clear. No oropharyngeal exudate. Eyes: General: No scleral icterus. Extraocular Movements: Extraocular movements intact. Conjunctiva/sclera: Conjunctivae normal. Pupils: Pupils are equal, round, and reactive to light. Cardiovascular: Rate and Rhythm: Normal rate and regular rhythm. Pulses: Normal pulses. Heart sounds: Normal heart sounds. No murmur heard. Pulmonary: Effort: No respiratory distress. Breath sounds: Rhonchi present. Comments: Diminished respiratory effort, diminished breath sounds on auscultation Chest: Chest wall: No tenderness. Abdominal: General: Abdomen is flat. Bowel sounds are normal. There is no distension. Palpations: Abdomen is soft. Tenderness: There is no abdominal tenderness. There is no guarding. Musculoskeletal: General: No swelling or tenderness. Normal range of motion. Cervical back: Normal range of motion. No rigidity or tenderness. Right lower leg: No edema. Left lower leg: No edema. Lymphadenopathy: Cervical: No cervical adenopathy. Skin: General: Skin is warm and dry. Findings: No lesion or rash. Neurological: General: No focal deficit present. Mental Status: She is alert and oriented to person, place, and time. Cranial Nerves: No cranial nerve deficit. Motor: No weakness. Psychiatric: Mood and Affect: Mood normal. Behavior: Behavior normal. Thought Content: Thought content normal. Routine labs: Recent Labs 01/03/225201/04/2211001/05/2257 WBC 7.6 10.0 13.4* HGB 10.8* 10.7* 11.6* HCT 32.7* 30.9* 35.7 PLT 365 451* 500* Recent Labs 01/03/225201/04/2211001/05/2257 NA 138 137 133* K 3.6 4.0 4.7 CL 107 108* 108* CO2 26 22 17* BUN 10 10 6* CREATININE 0.61 0.49* 0.46* MG -- 2.1 -- PHOS -- 4.6* -- No results for input(s): GLU in the last 72 hours. Other Laboratory - Imaging Studies: Reviewed and as per electronic record. CxR/CT images personally reviewed by me when available; salient findings summarized in A/P. 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 S/P thoracentesis S/P pigtail catheter removal 01/04 Hypoxemia (resolved) Emphysema Tobacco use (not interested in quitting at this time) Alcohol use (Daily, not interested in quitting at this time) Pneumatosis/pneumomediastinum - asymptomatic Plan: - lasix 40mg ordered for further diuresis - Continue aldactone 25mg daily - Continue monitoring CXRs - Duonebs 2 times daily - Currently on room air, continue to monitor SPO2 - PT/OT as able - Patient will most likely require facility-based rehab for period of time - Rest of medical management per primary team Cristofer Valverde MD Pulmonary, Critical Care, and Sleep Medicine Portions of the information within this encounter were entered using an electronic dictation system. Best attempts were made to edit/proofread the information prior to note completion. Despite the review of information, some errors may remain. If there are questions related to the information contained within the note please contact the signing physician directly. Associated attestation - Alejandro Georges MD - 01/05/2022 7:23 PM EDT I have personally performed a face to face diagnostic evaluation on this patient. Labs, imaging studies and electronic medical record have been reviewed by me. This note documented and discussed by household appliance repairer Dr. Valverde reflects my history, exam and medical decision making. I have reviewed and agree with the care plan. Changes were made in the orders as necessary. My history, exam, assessment and plan are as follows. 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 Valverde's note and as per primary team Full Code PHYSICAL EXAM: General Appearance: []WDWN []Obese []Cachectic [x]Thin []ill Skin: Temperature [x]Warm []Cool Rash []Yes [x]No Tattoo(s) []Yes []No HEENT: Pupils round and react [x]Yes []No Sclera []Icteric [x]Non-Icteric Conjunctiva []Injected [x]Non-Injected Pinnae []Normal []Other Dentitian [][place] Teeth []Dentures []edentulous Oral Mucosa [x]Comer [x]Moist []Dry Oral ETT []Present [x]Absent Neck: Trachea midline [x]Yes []No Thyromegaly []Yes []No Crepitus []Present [x]Absent Jvd []Present [x]Absent Lungs: []Clear [x]Crackles []Wheezes []Rhonchi Respiratory effort []Labored [x]Non-Labored Heart: Rate [x]Regular []Irregular []Tachycardia []Bradycardia Rhythm [x]Regular []Irregular Murmur []Present [x]Absent Peripheral Edema []Present []Absent Abdomen: [x]Soft Bowel Sounds []Present []Absent []Tender [x]Non-Tender []Distended []Non-distended Hernia []Present []Absent Organomegaly []Present []Absent []unable to assess 2/2 body habitus []Scar Extremities: Cyanosis []Present [x]Absent FLORES ([]RUE []RLE []LUE []LLE) Neurologic: [place] []Yes []No Corneal reflexes []Present []Absent Plantar reflexes []Up []Down []Absent Withdraws to tactile []Yes []No Follows Commands [x]Yes []No []Unresponsive to verbal [x]Cranial nerves grossly intact [x]Sensation grossly intact Psych: Alert [x]yes []no Oriented []x0 []x1 []x2 [x]x3 Affect []Normal []Flat []Agitated []Anxious []Calm []Sedated []NAD Portions of the information within this encounter were entered using an electronic dictation system. Best attempts were made to edit/proofread the information prior to note completion. Despite the review of information, some errors may remain. If there are questions related to the information contained within the note please contact the signing physician directly. * Hugh Marsh - 01/05/2022 7:06 AM EDT Images from the original note were not included. Med Team Progress Note Jaimie AvendanoIsaias : 1945(76 y.o.) Date: January 05, 2022 Med Team: Chayo Attending: Dr. Acosta Chief Complaint: BL pleural effusions Subjective: - No acute events overnight. - Currently, patient is feeling well. Also looks much better. Patient had chest tube removed yesterday, tolerated procedure well. Stated her RUQ pain (near chest tube placement) is much improved. Still experiencing SOB. Has no new complaints or symptoms. - Patient did state she had a minor fall yesterday. Was trying to get up to use bathroom and fell backward onto the bed shortly after rising. She did not hit anything and is in no pain. Attributed fall to weakness. Review of Systems Constitutional: Negative for chills, diaphoresis and fever. HENT: Negative for rhinorrhea and sore throat. Eyes: Negative for pain and visual disturbance. Respiratory: Positive for shortness of breath. Negative for cough and chest tightness. Cardiovascular: Negative for chest pain and leg swelling. Gastrointestinal: Positive for diarrhea. Negative for abdominal pain, blood in stool, constipation,nausea and vomiting. Endocrine: Negative for polydipsia and polyuria. Genitourinary: Negative for dysuria, frequency and hematuria. Musculoskeletal: Negative for arthralgias and myalgias. Skin: Negative for rash and wound. Neurological: Positive for weakness. Negative for dizziness, light-headedness, numbness and headaches. Psychiatric/Behavioral: Negative for confusion and sleep disturbance. All other systems reviewed and are negative. Scheduled Meds: ipratropium-albuterol 1 ampule Inhalation BID sodium chloride (Inhalant) 4 mL Nebulization BID spironolactone 25 mg Oral Daily nicotine 1 patch TransDERmal Daily folic acid 1 mg Oral Daily thiamine mononitrate 100 mg Oral Daily QUEtiapine 50 mg Oral Nightly potassium chloride 40 mEq Oral BID [Held by provider] polyethylene glycol 17 g Oral Daily levothyroxine 50 mcg Oral Daily sodium chloride flush 5-40 mL IntraCATHeter Q8H sodium chloride flush 5-40 mL IntraVENous 2 times per day acetaminophen 1,000 mg Oral 3 times per day lidocaine 1 patch TransDERmal Daily [Held by provider] sennosides-docusate sodium 1 tablet Oral BID [Held by provider] bisacodyl 5 mg Oral Daily enoxaparin 40 mg SubCUTAneous Daily Continuous Infusions: dextrose sodium chloride PRN meds used in last 24hrs: Morphine sulfate injection 2mg x1 Oxycodone 10mg x5 Objective: BP (!) 148/77 Pulse 80 Temp 97.7 F (36.5 C) (Temporal) Resp 18 Ht 5' (1.524 m) Wt 111 lb 5.3 oz (50.5 kg) SpO2 92% BMI 21.74 kg/m Physical Exam Vitals reviewed. Constitutional: General: She is not in acute distress. Appearance: She is well-developed. She is ill-appearing. HENT: Right Ear: Hearing and external ear normal. Left Ear: Hearing and external ear normal. Nose: Nose normal. Mouth/Throat: Mouth: Mucous membranes are moist. Pharynx: Oropharynx is clear. Eyes: General: Lids are normal. Extraocular Movements: Extraocular movements intact. Conjunctiva/sclera: Conjunctivae normal. Comments: Pupils equal and round Neck: Thyroid: No thyromegaly or thyroid tenderness. Cardiovascular: Rate and Rhythm: Normal rate and regular rhythm. Heart sounds: Normal heart sounds, S1 normal and S2 normal. No murmur heard. No friction rub. No gallop. Pulmonary: Effort: Pulmonary effort is normal. No respiratory distress. Breath sounds: Normal breath sounds. No wheezing. Chest: Breasts: Right: No supraclavicular adenopathy. Left: No supraclavicular adenopathy. Abdominal: General: Bowel sounds are normal. Palpations: Abdomen is soft. There is no mass. Comments: No hepatosplenomegaly Musculoskeletal: Cervical back: Full passive range of motion without pain and neck supple. Right lower leg: No edema. Left lower leg: No edema. Lymphadenopathy: Cervical: No cervical adenopathy. Upper Body: Right upper body: No supraclavicular adenopathy. Left upper body: No supraclavicular adenopathy. Skin: General: Skin is warm and dry. Findings: No rash. Comments: Dressing applied to placement of chest tube on RUQ Neurological: Mental Status: She is alert and oriented to person, place, and time. Sensory: Sensation is intact. Deep Tendon Reflexes: Reflexes are normal and symmetric. Psychiatric: Mood and Affect: Mood and affect normal. Cognition and Memory: Memory normal. Judgment: Judgment normal. Comments: Normal [facility] within last 24 hours Lab Results Component Value Date/Time WBC 13.4 (H) 01/05/2022 12:58 AM Hemoglobin 11.6 (L) 01/05/2022 12:58 AM Hematocrit 35.7 01/05/2022 12:58 AM Platelets 500 (H) 01/05/2022 12:58 AM MCV 108.5 (H) 01/05/2022 12:58 AM Lab Results Component Value Date/Time Sodium 133 (L) 01/05/2022 12:58 AM Potassium 4.7 01/05/2022 12:58 AM Chloride 108 (H) 01/05/2022 12:58 AM CO2 17 (L) 01/05/2022 12:58 AM BUN 6 (L) 01/05/2022 12:58 AM Creatinine 0.46 (L) 01/05/2022 12:58 AM Glucose 64 (L) 01/05/2022 12:58 AM Calcium 8.0 (L) 01/05/2022 12:58 AM Lab Results Component Value Date/Time Procalcitonin 14.05 (H) 01/05/2022 12:58 AM Assessment and Plan: Pneumomediastinum Cecal Pneumatosis B/L pleural effusions Elevated procalcitonin - CT Chest 12/27: No presence of an esophageal injury. Fairly extensive pneumomediastinum, spanning the level of the thyroid gland of the gastroesophageal junction. Large right and small left pleural effusions with associated atelectatic change - CXR 01/05 IMPRESSION: 1. Interval removal of right pigtail catheter with no change of the right pleural effusion with compressive atelectasis and/or infiltrate. 2. Improved aeration of the left lung base with a probable small residual left pleural effusion and/or infiltrate. - Vitals: HDS, afebrile - Labs: LA 1.6 and downtrending, WBC 13.4 - Procal elevated from 6 to 23 on (01/01), procal recently at 14. Continue to trend - Fluid cxs negative, bcx x1 showing coag neg staph, likely contaminant - S/p thoracentesis 12/29 with 500 ccs sita colored serous fluid noted, exudative etiology, neg cytology - S/p 01/01 Thoracentesis with right pigtail to water seal (440cc) - cultures came back, showed coag neg staph, concerned for contamination - Per Pulmonology: Continue with goal O2 92% given COPD, acapella, IS, duonebs BID. - Per Palliative: Douneb and NaCl decreased from qid/tid to bid. Recommend PO morphine - Order spirometry - Continue diuresis with lasix and aldactone - Chest tube removed on 01/04 - Follow-up outpatient Pulm - Per ID: elevated procal likely secondary to post-procedural etiology, keep monitoring for s/s of infection. ID still following - Zoysn completed - Pulmonology following, ID following, recs appreciated - 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 following, continue with ensure, soft/easy chew diet - Serial abdominal exams - Protonix IV daily - CT surgery following, general surgery signed off Chronic RUQ/R chest pain - Moderate pain compared to admission, pt s/p thoracentesis and R pigtail placement. Continue monitoring - Stop IV and PO morphine - Scheuled tylenol, oxy prn - Watch use of oxy, adjust if necessary as pain has improved and chest tube removed - Currently on Oxycodone 10mg q4h - Lido patch for R chest pain Hepatic Cirrhosis - Likely secondary to EtOH liver cirrhosis - CT Chest 12/27 showing evidence of hepatic cirrhosis - ALT 14, AST 29, ALP 91 - Continue monitoring liver enzymes Elevated Troponin Secondary to Demand Ischemia Prolonged QTc - elevated troponin likely due to ischemic demand from acute illness- MAP goal >65, no issues atthis time - trop 0.124 12/30 from 0.162 12/29 - Hydralazine and labetalol prn antihypertensives for SBP>160 - 12/29 EKG: NSR 116, Qtc 461 - Continue tele - Cardiology consulted, pending recs - Avoid QT prolonging meds Acute metabolic encephalopathy Declining Functional Status - Developed AMS after admission to ICU. Likely multifactorial in setting of EtOH withdrawal, polypharmacy, hospital-acquired delirium - Patient more at baseline, A&Ox3. was altered upon admission q8h seroquel for delirium - Melatonin nightly - Geriatrics and palliative care following - PT/OT following Urinary Retention - Denies sxs, I/O net -1.6L - urine antigens negaive - Bladder scan 12/28 400ccs - Costa removed 01/03 - Continue monitoring I/O's Macrocytic Anemia - Hgb 10.8, MCV 106.8, overall stable - Likely secondary to EtOH use disorder - B12 wnl - RBC morphology 01/02 overall unremarkable - Continue monitoring H/H Alcohol Use Disorder - Patient has 2-3 glasses of wine daily, not interested in cessation at this time - No withdrawal symptoms noted - folic acid and thiamine - Last dose of scheduled phenobarb 01/02 - [facility] protocols stopped Tobacco Abuse - Pt smokes 1ppd - Continue encouraging cessation Hypothyroidism - TSH wnl on admission - Continue home synthroid 50 mcg COPD - Continue with goal O2 92% given COPD, acapella, IS, duonebs q4h, 3% nebs TID - Pulmonology following - OP pulm follow-up Disposition: SNF ([facility]) when patient is medically stable per surgery recs. - Goals of Care: FULL CODE - DVT Prophylaxis: lovenox 40 q24h - creatinine clearance > 30 - GI Prophylaxis: Not Indicated - Diet: General Associated attestation - Mary Acosta DO - 01/05/2022 5:53 PM EDT I have discussed the care of Jaimie Mcgovern with the medical student and/or resident. I have personally taken a history, examined the patient, and performed the associated medical decision making activities. I have reviewed & verified the attested documentation. Unless otherwise noted below, this documentation reflects the history, physical exam, and medical decision making that I performed myself. Please see below for my personal highlights or additions to the note. Patient seen and examined by myself on 01/05/22 -pt doing well and R side pain improved w/chest tube removal. Will D/C IV morphine and monitor on oral oxycodone. -monitor off Abx. WBC count rising but subjectively stable and CXR unchanged. Appreciate ID and pulm. Anticipate monitor off abx for now. No ascites on abd US so do not think needs treatment for peritonitis. -d/w TCC. Likely need for monitoring. Possible d/c 01/07 or 01/08 if remains clinically stable. * Roberto Rodriguez DO - 01/04/2022 4:36 PM EDT Images from the original note were not included. [facility] - Infectious Diseases Attending Progress Note Subjective: Following for IAI and elevated pro-calcitonin. During my assessment, patient is alert and oriented, and states that she is feeling well. She has mild soreness around her chest tube insertion site, but otherwise has no new complaints. Denies fever, chills, nausea, vomiting, or abdominal pain. Vitals are notable for BP 155/77. Satting appropriately on 3L NC. Labs show WBC 10.0 and pro-calcitonin 15.03. Currently off of antimicrobial therapy. Pleural fluid CXs show NGTD. Plan is for d/c to [facility] per primary. Objective: Vitals: Patient Vitals for the past 24 hrs: BP Temp Temp src Pulse Resp SpO2 Height 01/04/22 1626 (!) 143/89 97.9 F (36.6 C) Temporal 81 20 94 % -- 01/04/22 1426 -- -- Temporal 89 28 96 % -- 01/04/22 1200 (!) 155/77 97.8 F (36.6 C) Temporal 72 20 97 % -- 01/04/22 0950 -- -- -- 78 18 97 % -- 01/04/22 0905 -- -- -- -- -- -- 5' (1.524 m) 01/04/22 0758 139/75 98 F (36.7 C) Temporal 66 17 98 % -- 01/04/22 0503 130/66 98.2 F (36.8 C) Temporal 65 16 97 % -- 01/04/22 0008 (!) 165/77 97.5 F (36.4 C) Temporal 76 16 93 % -- 01/03/222009 130/71 97.1 F (36.2 C) Temporal 68 17 97 % -- 01/03/22 1747 -- -- -- 80 18 98 % -- 01/03/22 1739 -- -- -- 74 18 97 % -- 01/03/22 1639 (!) 159/80 98 F (36.7 C) Temporal 77 16 100 % -- Physical Exam Constitutional: Appearance: She is not ill-appearing or toxic-appearing. HENT: Head: Normocephalic and atraumatic. Mouth/Throat: Mouth: Mucous membranes are dry. Eyes: General: No scleral icterus. Extraocular Movements: Extraocular movements intact. Pupils: Pupils are equal, round, and reactive to light. Cardiovascular: Rate and Rhythm: Normal rate and regular rhythm. Pulses: Normal pulses. Heart sounds: Normal heart sounds. No murmur heard. No friction rub. No gallop. Pulmonary: Breath sounds: No wheezing, rhonchi or rales. Comments: Diminished breath sounds b/l Abdominal: General: Abdomen is flat. Bowel sounds are normal. Palpations: Abdomen is soft. There is no mass. Tenderness: There is no abdominal tenderness. There is no guarding or rebound. Hernia: No hernia is present. Musculoskeletal: Cervical back: Normal range of motion and neck supple. Right lower leg: No edema. Left lower leg: No edema. Skin: General: Skin is warm and dry. Findings: No lesion or rash. Neurological: General: No focal deficit present. Mental Status: She is alert. Psychiatric: Mood and Affect: Mood normal. Judgment: Judgment normal. Labs: Component Value Date/Time NA 137 01/04/2022110 K 4.0 01/04/2022110 CL 108 (H) 01/04/2022110 CO2 22 01/04/2022110 BUN 10 01/04/2022110 CREATININE 0.49 (L) 01/04/2022110 GLUCOSE 101 (H) 01/04/2022110 CALCIUM 7.9 (L) 01/04/2022110 PROT 5.9 (L) 01/03/202252 LABALBU 2.8 (L) 01/03/2022 005 BILITOT 0.4 01/03/2022 005 ALKPHOS 91 01/03/2022 0053 AST 29 01/03/2022 0053 ALT 14 01/03/2022 0053 PROCAL 15.03 (H) 01/04/2022110 PROCAL 23.68 (H) 01/02/2022 0318 PROCAL 6.23 (H) 12/31/2021 0258 Component Value Date/Time WBC 10.0 01/04/2022110 HGB 10.7 (L) 01/04/2022110 HCT 30.9 (L) 01/04/2022110 PLT 451 (H) 01/04/2022110 GRANULOCYTES 83.2 (H) 01/04/2022110 LYMPHOPCT 6.5 (L) 01/04/2022110 MONOPCT 7.7 01/04/2022110 LABEOS 2.2 01/04/2022110 BASOPCT 0.4 01/04/2022110 NEUTROABS 8.3 (H) 01/04/2022 0111 Micro: 12/27 Respiratory panel, molecular, w/ COVID-19: (-) 12/27 Blood CXs + for CoNS 12/29 Strep pneumoniae Ag, urine: (-) 12/29 Legionella Ag, urine: (-) 01/01 Body fluid CX NGTD Lines: 01/01 RUE PIV Antimicrobials, Start/End Dates: 12/28-01/03 piperacillin/tazobactam Impression: Ms. Avendano is a 76 y/o F w/ PMH of alcoholic cirrhosis, hypothyroidism, and COPD. Presented 12/27 w/ pain in RUQ, R shoulder, R chest. CT at [place] [facility] showed cecal pneumatosis and pneumomediastinum,and she was transferred to [facility]. CT Esophagram showed no signs of esophageal injury. Thoracentesis 12/29 yielded 500 mL sita colored serous fluid; fluid CXs show NGTD. She had recurrence of b/l pleuraleffusions, R>L, and multifocal infiltrate L>R on repeat CT 12/31/21. R pigtail catheter placed 12/31. She is being managed conservatively per the recommendations of general surgery. Developed AMS after admission, procalcitonin increased to 23 from 6. Completed pip-tazo x7d, out of ICU. Mental status improved. The ID service is following for AMS and elevated procalcitonin. Plan: 1. Acute metabolic encephalopathy - Patient developed AMS after admission to the ICU - Likely multifactorial in the setting of ETOH withdrawal, polypharmacy, hospital-acquired delirium - Low suspicion for acute RECORDS SECTION SUPERVISOR infection at this time - Patient has been moved out of ICU; clinically improving 2. Elevated procalcitonin- Pro-calcitonin elevation is most likely post- procedural; no suspicion for new/worsening PNA given lack of respiratory symptoms, normal WBC, and improving O2 requirements 3. Cecal pneumatosis- completed piperacillin-tazobactam x7 days 4. b/l pleural effusions, R>L- s/p R thoracentesis 12/29- exudative with negative culture and negative cytology, and R pigtail chest tube; 01/01 CXs show NGTD 5. Acute on chronic hypoxic respiratory failure- initially needed HFNC; patient has been weaned down to 2L NC 6. Pneumomediastinum- no surgical intervention per CT surgery 7. Alcoholic cirrhosis 8. Hypothyroidism 9. ETOH abuse 10. Severe malnutrition 11. Tobacco use disorder 12. COPD Recommendations: 1. Completed piperacillin/tazobactam x7d for possible intra-abdominal infectious process 2. Pleural CXs show NGTD; low suspicion for infection 3. Mental status has improved; no concern of [employer]OR[employer] SECTION SUPERVISOR infection at this time 4. Pro-calcitonin elevation is most likely post-procedural; no suspicion for new/worsening PNA given lack of respiratory symptoms, normal WBC, and improving O2 requirements The ID service will sign off at this time. Feel free to call back with any further questions or concerns. More than 51% total time 35 Minutes counseling (or coordinating care) and providing discussion regarding plan of care, expectations, antimicrobials. * Aster Parks PTA - 01/04/2022 2:50 PM EDT Physical Therapy Facility/Department: [facility] Physical Therapy Daily Treatment Note Name: Jaimie Mcgovern : 1945 Date of Service: 01/04/2022 Discharge Recommendations: Subacute/Jail Facility Patient Diagnosis(es): The encounter diagnosis was Pneumatosis of intestines. Past Medical History: has a past medical history of Alcoholic cirrhosis (HCC), Demand ischemia (HCC), Hypothyroid, and Pneumomediastinum (HCC). Past Surgical History: has a past surgical history that includes Cholecystectomy; Appendectomy; Hysterectomy; and CT GUIDED PLEURAL DRAINAGE W CATH PERC (01/01/2022). Assessment Body Structures, Functions, Activity Limitations Requiring Skilled Therapeutic Intervention: Decreased balance;Decreased endurance;Decreased functional mobility Assessment: Pt requires min assist for bed mobility, transfers, and ambulation short distance. Pt with increased SOB after ambulation. RN states that pt has been off O2, but was on O2 last night. SpO2 down to 85% on room air. Nsg placed pt on 4L and pt recovered quickly to 95% on 4L. No PT goals met this session. Recommend SNF at discharge. Requires PT Follow-Up: Yes Activity Tolerance Activity Tolerance: Patient limited by fatigue;Patient limited by endurance Activity Tolerance Comments: limited by SpO2 Plan Plan Plan: 2-3 times per week Plan weeks: 4 weeks Current Treatment Recommendations: Strengthening, Balance training, Functional mobility training, Transfer training, Gait training, Endurance training, Neuromuscular re-education, Safety education & training, Patient/Caregiver education & training, Equipment evaluation, education, & procurement, Therapeutic activities Safety Devices Type of Devices: Left in bed, Gait belt, Patient at risk for falls, Nurse notified, Call light within reach Restraints Restraints Initially in Place: No Restrictions Restrictions/Precautions Restrictions/Precautions: Fall Risk, Up as Tolerated Required Braces or Orthoses?: No Position Activity Restriction Other position/activity restrictions: tele Subjective General Chart Reviewed: Yes Patient assessed for rehabilitation services?: Yes Family / Caregiver Present: No Diagnosis: Pneumatosis of intestines Follows Commands: Within Functional Limits Subjective Subjective: Pt supine in the bed, agrees to PT. Social/Functional History Social/Functional History Lives With: Alone Type of Home: (Senior Living) Home Layout: One level Home Access: Level entry Bathroom Shower/Tub: Tub/Shower unit Bathroom Toilet: Standard Bathroom Equipment: Grab bars in shower, Shower chair Bathroom Accessibility: Accessible Home Equipment: Cane, Walker, rolling (Pt unclear how often she is using these devices.) Receives Help From: Family ADL Assistance: Independent Homemaking Assistance: Needs assistance Homemaking Responsibilities: No Ambulation Assistance: Independent Transfer Assistance: Independent [employer] Dies Loader: No Mode of Transportation: Family Occupation: Retired Additional Comments: Pt poor historian this date and states she is confused at the beginning of session. Vision/Hearing Cognition Objective Heart Rate: 89 Heart Rate Source: Monitor BP: (!) 155/77 BP Location: Left Arm Patient Position: Supine MAP (Calculated): 103 Resp: 28 SpO2: 96 % O2 Device: Nasal cannula Bed mobility Supine to Sit: Minimal assistance Sit to Supine: Stand by assistance Scooting: Stand by assistance Transfers Sit to Stand: Minimal Assistance Stand to sit: Minimal Assistance Ambulation Surface: level tile Device: Rolling Walker Assistance: Minimal assistance Distance: 12 feet Stairs/Curb Stairs?: No Exercise Treatment: BLE ther ex: supine- ankle pumps. QS, GS, hip abduction, heel slides. seated- LAQ. all x 10 reps AROM OutComes Score AM-PAC Score AM-[facility] Inpatient Mobility Raw Score : 13 (01/04/22 1454) AM-[facility] Inpatient T-Scale Score : 36.74 (09/12/22 1454) Mobility Inpatient CMS 0-100% Score: 64.91 (01/04/221453) Mobility Inpatient CMS G-Code Modifier : CL (01/04/221453) Tinneti Score Goals Short Term Goals Time Frame for Short term goals: 4 weeks Short term goal 1: bed mobility, independent - progressing Short term goal 2: transfers with/without device, modified independent - progressing Short term goal 3: ambulation 50ft with/without device, modified independent - progressing Patient Goals Patient goals : none stated Education Patient Education Education Given To: Patient Education Provided: Role of Therapy;Plan of Care Education Method: Verbal Barriers to Learning: None Education Outcome: Verbalized understanding Therapy Time Individual Concurrent Group Co-treatment Time In 1404 Time Out 1427 Minutes 23 Timed Code Treatment Minutes: (GT, TP) *PPE per facility policy used during session* Aster Parks SH[employer]UL DRIVER * JOHN Shepherd - 01/04/2022 2:21 PM EDT Speech Language Pathology Attempted to see this date for dysphagia treatment. Patient politely declined all PO offered. 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 will follow up with as schedule permits. Glenna Colon MA, CCC-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 * Alejandro Georges MD - 01/04/2022 2:16 PM EDT Images from the original note were not included. PULMONARY SERVICE DAILY PROGRESS NOTE 01/04/2022 Hospital LOS: LOS: 8 days Impression: Bilateral pleural effusions right > L S/p right thoracentesis S/p right pigtail catheter Likely hepatic hydrothorax Hypoxemia - now resolved Emphysema, likely COPD Nicotine dependence, not ready to quit Pneumatosis/pneumomediastinum - asympatomatic and w/o evidence of esophageal perforation Recommendations: Chest tube has had low output; though there is a small remanant effusion on chest xray it ddoesn't appear that the tube is accessing it; moreover, it looks as though the tube was accidentally pulled out a bit based on bedside exam and radiology Hence, I removed the pigtail tube at bedside today; patient tolerated the procedure well; dressing in place; okay to change the dressing in 48 hours Given the cirrhosis and ascites history, likely mechanism of effusion was hepatic hydrothorax; checking a serum-pleural fluid albumin gradient could be supporting evidence Given the high neutrophil count, despite negative cultures, this should be treated with same antibiotic regimen as SBP -- ID is on board, aprpeciate their recs Would avoid chest tubes in the future Lasix and aldactone to manage pleural effusion and ascites Regarding cirrhosis, it appears to be mild; MELD-Na is 9, liver synthetic function seems to be in tact; no thrombocytopenia; may benefit from reassessment Hypoxemia has resolved; she is now on room air Parenchymal infiltrates persist on CXR; infectious w/u negative to date; suggest more aggressive diuresis as patient's hemodynamics tolerate. Interval History/Event Changes: Patient states breathing improving - now on room air No cough or hemoptysis She doesn't quite remember when the last time she had ascites needing paracentesis Allergies Allergies Allergen Reactions Latex Azithromycin did not work Bisoprolol-Hydrochlorothiazide did not work Review of Systems A pertinent review of systems was performed and was otherwise non-contributory. Vitals- BP (!) 155/77 Pulse 72 Temp 97.8 F (36.6 C) (Temporal) Resp 20 Ht 5' (1.524 m) Wt 111 lb 5.3 oz (50.5 kg) SpO2 97% BMI 21.74 kg/m Tmax: Temp (24hrs), Av.8 F (36.6 C), Min:97.1 F (36.2 C), Max:98.2 F (36.8 C) Hemodynamics: Cuff: Systolic (24hrs), Av , Min:130 , Max:165 /Diastolic (24hrs), Av, Min:66, Max:80 Cuff MAP:MAP (mmHg) Av.4 Min: 67 Max: 163 P: Pulse Av.9 Min: 65 Max: 80 Observed RR: Resp Av.3 Min: 16 Max: 20 Observed O2 sats: SpO2 Av.2 % Min: 78 % Max: 100 % Intake/Output Summary (Last 24 hours) at 01/04/2022 1416 Last data filed at 01/04/2022 0435 Gross per 24 hour Intake -- Output 430 ml Net -430 ml Physical exam- General appearance: Not ill appearing, alert, no converstional dyspnea Head: Normocephalic, without obvious abnormality, atraumatic Eyes:Pupils bilateral equal and reactive, EOM intact, conjunctiva - no icterus , no injection Throat: Clear, no lesions, Mallampti =1, no tonsillar eythema or edema Neck: Supple, symmetrical, trachea midline, no significant lymphadenopathy Lungs: Diminshed at bases, scattered rhonchi, no wheeze Heart: RRR, S1, S2 normal, no murmur, click, rub or gallop Abdomen: soft, non-tender, nondistended. Bowel sounds normal Extremities: extremities normal, atraumatic, no cyanosis, edema Musculoskeletal - No deformities Skin: Skin color, texture, turgor normal. No rashes or lesions Neurological: No focal deficits, cranial nerves grossly intact, sensations intact Psychiatric : Mood and effect normal , alert and oriented times 4 Routine labs: Recent Labs 01/02/22 0318 01/03/22 0053 01/04/22 0111 WBC 7.7 7.6 10.0 HGB 10.4* 10.8* 10.7* HCT 31.4* 32.7* 30.9* PLT 268 365 451* Recent Labs 01/02/22 0554 01/03/22 0053 01/04/22 0111 NA 138 138 137 K 3.6 3.6 4.0 CL 110* 107 108* CO2 26 26 22 BUN 5* 10 10 CREATININE 0.54 0.61 0.49* MG -- -- 2.1 PHOS -- -- 4.6* No results for input(s): GLU in the last 72 hours. Other Laboratory - Imaging Studies: Reviewed and as per electronic record. CxR/CT images reviewed by me when available. CXR reviewed. Alejandro Georges MD 01/04/22 * Estefania North RD, LD - 01/04/2022 1:37 PM EDT Comprehensive Nutrition Assessment Type and Reason for Visit: Reassess Nutrition Recommendations/Plan: Recommend to continue Easy to Chew diet as currently ordered. Encourage and assist patient in room-service selction to order nutrient dense food items Per MNT protocol, adjusted ONS: Ensure Enlive as AM snack --> +350 kcal, 20 g protein, 240 mL fluid Ensure Compact as PM snack --> +220 kcal, 9 g protein. 120 mL fluid Please record % meals and oral nutrition supplements consumed in flow-sheet for most accurate nutrient intake assessment. RDN to continue to monitor weekly Malnutrition Assessment: Malnutrition Status: Severe malnutrition (01/01/22 1351) Context: Chronic Illness Findings of the 6 clinical characteristics of malnutrition: Energy Intake: 75% or less estimated energy requirements for 1 month or longer Weight Loss: No significant weight loss Body Fat Loss: Severe body fat loss Orbital, Triceps Muscle Mass Loss: Severe muscle mass loss Thigh (quadraceps), Calf (gastrocnemius), Temples (temporalis), Clavicles (pectoralis & deltoids) Fluid Accumulation: No significant fluid accumulation Supervisor [place] Strength: Not Performed Nutrition Assessment: 76 year old woman who remains admitted as transfer from [facility] with concern for cecal pnematosis. S/P Right thoracentesis on 12/29/21 with 500 mL removal. Had recurrence of BL pleural effusions R> L and multifocal infiltrate L>R on repeat CT 12/31/21, right sided pig tail catheter placed 01/01/22. Geriatrics and palliative care following for declining functional status. Transferred from ICU to [facility] over the weekend. Plans to remove pigtail pending chest Xray later today. Bed scale weight obtained at time of visit 121#. Patient recalls eating about "a quarter" of her meals and taking "one, sometimes two" Ensure supplements daily. Feeling tired from ambulating this morning Nutrition Related Findings: -I/O balance. Jhonny score=16. No edema or skin break down noted. Meds: aldactone, seroquel, synthroid, lovenox. Meds reviewed. Wound Type: (+right sided chest tube) Current Nutrition Intake & Therapies: Average Meal Intake: 1-25% Average Supplements Intake: 51-75%, 26-50% (one to two shakes daily) ADULT DIET; Easy to Chew ADULT ORAL NUTRITION SUPPLEMENT; AM Snack; Standard High Calorie/High Protein Oral Supplement ADULT ORAL NUTRITION SUPPLEMENT; PM Snack; Standard 4 oz Oral Supplement Anthropometric Measures: Height: 5' (152.4 cm) [place] Body Weight (IBW): 100 lbs (45 kg) Admission Body Weight: 115 lb (52.2 kg) Current Body Weight: 121 lb 1.6 oz (54.9 kg), 121.1 % IBW. Weight Source: Bed Scale Current BMI (kg/m2): 23.7 Usual Body Weight: 116 lb (52.6 kg) (noted 07/11/21) % Weight Change (Calculated): 4.4 Weight Adjustment For: No Adjustment BMI Categories: Normal Weight (BMI 22.0 to 24.9) age over 65 Estimated Daily Nutrient Needs: Energy Requirements Based On: Kcal/kg Weight Used for Energy Requirements: Admission Energy (kcal/day): 25-28 kcals/kg = 2194-0272 kcals/day Weight Used for Protein Requirements: Admission Protein (g/day): 1.2-1.4g protein/kg IBW = 63-73g protein/day Method Used for Fluid Requirements: ml/Kg Fluid (ml/day): per MD Nutrition Diagnosis: Inadequate energy intake related to cognitive or neurological impairment as evidenced by NPO or clear liquid status due to medical condition Severe malnutrition, In context of chronic illness related to inadequate protein-energy intake as evidenced by poor intake prior to admission, severe loss of subcutaneous fat, severe muscle loss Nutrition Interventions: Food and/or Nutrient Delivery: Continue Current Diet, Modify Oral Nutrition Supplement, Vitamin Supplement, Mineral Supplement Nutrition Education/Counseling: Education not indicated Coordination of Nutrition Care: Continue to monitor while inpatient Plan of Care discussed with: patient Goals: Previous Goal Met: Progressing toward Goal(s) Goals: other (specify) Specify Other Goals: Patient to meet > 50% estimated needs via PO and ONS prior to discharge Nutrition Monitoring and Evaluation: Behavioral-Environmental Outcomes: None Identified Food/Nutrient Intake Outcomes: Food and Nutrient Intake, Supplement Intake Physical Signs/Symptoms Outcomes: GI Status, Meal Time Behavior, Hemodynamic Status, Chewing or Swallowing, Biochemical Data, Fluid Status or Edema, Nausea or Vomiting, Nutrition Focused Physical Findings, Weight, Skin Discharge Planning: Too soon to determine Estefania North RD, LD Contact: *[phone] [address] eSent[employer] * ELIZ Cedeño - 01/04/2022 11:41 AM EDT Occupational Therapy Facility/Department: [facility] Occupational Therapy daily note Name: Jaimie Mcgovern : 1945 Date of Service: 01/04/2022 Discharge Recommendations: Subacute/Jail Facility Patient Diagnosis(es): The encounter diagnosis was Pneumatosis of intestines. Past Medical History: has a past medical history of Alcoholic cirrhosis (HCC), Demand ischemia (HCC), Hypothyroid, and Pneumomediastinum (HCC). Past Surgical History: has a past surgical history that includes Cholecystectomy; Appendectomy; Hysterectomy; and CT GUIDED PLEURAL DRAINAGE W CATH PERC (01/01/2022). Assessment Performance deficits / Impairments: Decreased functional mobility ;Decreased endurance;Decreased ADL status;Decreased ROM;Decreased balance;Decreased strength;Decreased safe awareness;Decreased high-level IADLs;Decreased cognition Assessment: Pt limited by pain and decreased activity tolerance noted with quick fatigue following short distance ambulation. Min A for bed moblity, sit to stands, ambulation and toileting tasks for balance and assist w/IV pole, chest tubing and 02 tank/cord. Pt alert throughout session requiring no vc's for keeping eyes open; one OT goal met this session. Pt below baseline. Recommend SNF at d/c. REQUIRES OT FOLLOW-UP: Yes Activity Tolerance Activity Tolerance: Patient limited by fatigue;Patient limited by pain Plan Plan Times per Week: 3-5 Plan Weeks: 4 Current Treatment Recommendations: Strengthening, ROM, Balance training, Functional mobility training, Endurance training, Cognitive reorientation, Safety education & training, Patient/Caregiver education & training, Equipment evaluation, education, & procurement, Self-Care / ADL, Cognitive/Perceptual training Plan Comment: Follow OT POC Restrictions Restrictions/Precautions Restrictions/Precautions: Fall Risk, Up as Tolerated Required Braces or Orthoses?: No Position Activity Restriction Other position/activity restrictions: NC, costa, tele, chest tube Subjective General Chart Reviewed: Yes Patient assessed for rehabilitation services?: Yes Additional Pertinent Hx: liver cirrhosis Family / Caregiver Present: No Diagnosis: pneumatosis of intestines Subjective Subjective: Upon arrival, pt supine in bed w/HOB slightly elevated. Pt reports 8/10 pain; Rn notified. Pt stated, "I need to pee" and was agreeable to OT services. Social/Functional History Social/Functional History Lives With: Alone Type of Home: (Senior Living) Home Layout: One level Home Access: Level entry Bathroom Shower/Tub: Tub/Shower unit Bathroom Toilet: Standard Bathroom Equipment: Grab bars in shower, Shower chair Bathroom Accessibility: Accessible Home Equipment: Cane, Walker, rolling (Pt unclear how often she is using these devices.) Receives Help From: Family ADL Assistance: Independent Homemaking Assistance: Needs assistance Homemaking Responsibilities: No Ambulation Assistance: Independent Transfer Assistance: Independent [employer] Dies Loader: No Mode of Transportation: Family Occupation: Retired Additional Comments: Pt poor historian this date and states she is confused at the beginning of session. Objective Heart Rate: 78 Heart Rate Source: Monitor BP: 139/75 BP Location: Left Arm Patient Position: Supine MAP (Calculated): 96.33 Resp: 18 SpO2: 97 % O2 Device: Nasal cannula Safety Devices Type of Devices: Left in bed;Gait belt;Patient at risk for falls;Nurse notified;Call light within reach Toilet Transfers Toilet - Technique: Ambulating Equipment Used: Standard toilet Toilet Transfer: Minimal assistance Toilet Transfers Comments: Min A for ambulation; pt held IV pole, provider assist w/chest tubing and 02 tank. Min A for balance, decreased endurance/pt fatigued quickly. ADL Grooming: Minimal assistance;Contact guard assistance Grooming Skilled Clinical Factors: Min A for IV pole, chest tubing and 02 tank; CGA standing at sink to wash hands. LE Dressing: Stand by assistance;Increased time to complete LE Dressing Skilled Clinical Factors: doffed/donned bilateral socks sitting EOB. Extra time Toileting: Contact guard assistance;Minimal assistance Toileting Skilled Clinical Factors: CGA/Min A for elevation and balance with pericare following bowel/urination void. Additional Comments: Pt fatigues quickly and requires increased assist w/IV, chest tubing and 02 tank. Bed mobility Bridging: Supervision (cues provided; bridging completed for patient to center self in COB) Supine to Sit: Minimal assistance Sit to Supine: Stand by assistance Scooting: Stand by assistance Bed Mobility Comments: Min assist for trunk elevation; pt completed hip rotation and scooting to EOB with extra time. Transfers Stand Step Transfers: Minimal assistance Sit to stand: Minimal assistance Stand to sit: Minimal assistance Transfer Comments: CGA/Min A for sit <> stand from EOB and toilet for balance. AM-PAC Score AM-PAC Inpatient Daily Activity Raw Score: 15 (01/04/22 1140) AM-PAC Inpatient ADL T-Scale Score : 34.69 (01/04/22 1140) ADL Inpatient CMS 0-100% Score: 56.46 (01/04/22 1140) ADL Inpatient CMS G-Code Modifier : CK (01/04/22 1140) Tinneti Score Goals Short Term Goals Time Frame for Short term goals: 4 weeks Short Term Goal 1: Static sitting balance to CGA during unilateral UE task-Progressing Short Term Goal 2: Bed mobility min assist as a precursor to functional tasks-Progressing Short Term Goal 3: Pt to keep eyes open 50% of session-Met 01/04/2022 Short Term Goal 4: Toilet transfer with mod assist-Progressing Patient Goals Patient goals : None stated Therapy Time Individual Concurrent Group Co-treatment Time In 1100 Time Out 1125 Minutes 25 Timed Code Treatment Minutes: 25 Minutes (1 self care 1 fun act) ELIZ Cedeño * Nini Thomas APRN - BISQUE FINISHER - 01/04/2022 10:31 AM EDT Images from the original note were not included. Palliative Care Progress Note Chief Complaint: Jaimie RuizJames a 76 y.o. female with chief complaint of Chest Pain/Abdominal Pain Palliative care is actively following this patient. Assessment/Plan Assessment/Plan Shortness of Breath/Large R pleural effusion/ Pneumomediastinum No surgical intervention recommended Weaned to 2 L NC Plan for pigtail to be removed today Right chest tube Continues pip/tazo 3375mg 7 days -stopped 01/04 Nicotine Patch 21 mg/24 h Review of labs Duoneb and sodium chloride nebs decreased from qid/tid to bid Pulmonary consult to assess underlying lung disease- will need outpatient follow up CXR 01/03 improved - on room air, tolerating well Pigtail site pain - scheduled tylenol - lidocaine patch - prn oxycodone 5-10mg available, using 10mg at a time without oversedation - prn morphine available 2-4mg available appears to be for crisis, recommend using oral Cecal pneumatosis: Pip/lucia 3375 mg 7 days - plan to d/c today r/t diarrhea and continuing abdominal pain - polyethleneglycol and sennosides -docusate sodium both on hold - ID involved due to elevated procal, recs reviewed Debility: Plan to d/c to SNF for PT/OT PT/OT [facility] advising SNF 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 - pending acceptance to [facility] in [place], she was there before and did well, uncertain atthis time if will be able to return home vs LTC there Malnutrition - recommended diet per 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 easy to chew with think liquids , add ensure enlive TID with meals Alcohol abuse: History of cirrhosis-- labs reviewed [facility] protocol d/c 01/01 Phenobarb d/c 01/01 Folic acid changed from IV to po 01/03 Thiamine changed from IV to po 01/03 Agitation - quetiapine 50mg nightly - per daughter over weekend was combative with staff - calm today Palliative Care Encounter -FULL CODE -Daughter Geneva is POA - call to daughter, see notes for details - she is improving, transferred out of ICU to telemetry - open discussion regarding GOC, wanting SNF and hopes for home but would be okay if needed LTC placement. Discussed code status, will remain full code at this time including chest compressions, defibrillation, intubation and vent supports - goals clear without symptoms will sign off at this time, thank you Active Hospital Problems Diagnosis Date Noted Demand ischemia of myocardium (HCC) [I24.8] 12/29/2021 Priority: High Pneumomediastinum (HCC) [J98.2] 12/29/2021 Priority: High Severe malnutrition (HCC) [E43] 01/01/2022 Priority: Medium Alcoholic cirrhosis (HCC) [K70.30] 01/01/2022 Priority: Medium Hypoxia [R09.02] 01/01/2022 Priority: Medium Acute encephalopathy [G93.40] 01/01/2022 Priority: Medium Cognitive deficits [R41.89] 01/01/2022 Priority: Medium Constipation, slow transit [K59.01] 01/01/2022 Priority: Medium Debility [R53.81] 01/01/2022 Priority: Medium Elevated troponin [R77.8] 12/30/2021 Priority: Medium Acute respiratory insufficiency [R06.89] 12/29/2021 Priority: Medium Shortness of breath [R06.02] 12/29/2021 Priority: Medium Pleural effusion on right [J90] 12/29/2021 Priority: Medium Palliative care encounter [Z51.5] 12/29/2021 Priority: Medium Declining functional status [R53.81] 12/28/2021 Priority: Medium At risk for delirium [Z91.89] 12/28/2021 Priority: Medium Alcohol abuse [F10.10] 12/28/2021 Priority: Medium Pneumatosis of intestines [K63.89] 12/27/2021 Priority: Medium Time/Communication Greater than 51% of time spent, total 35 minutes in counseling and coordination of care at the bedside regarding Goals of Care, Symptom Management, and Diagnosis and Prognosis Discharge planning: discharge to [facility] Patient meets criteria for general inpatient hospice care including the following:N/A- Palliative Care Patient Referrals to: None Today Discussed patient and the plan of care with the other interdisciplinary team (IDT) members of Palliative Team, and with Patient, Family, and Floor Nurse Insert attestation statement here if applicable (.disupervision) or (.npattest) I have discussed the patient's case and plan of care with my collaborating physician Dr. Wynn I have seen and examined along with Marti Capps, DESTINY student, see my edits in italics Subjective: Subjective/Events Ms. Avendano is a 76 year old patient with a past medical history of cirrhosis,, COPD, and hypothyroidism. She was transferred from [place] for presentation of right chest, shoulder and abdominal pain. CT in [place] raised concern for pneumomediastinum and cecal pneumatosis. She was a surgery consult at [facility] where no surgical interventions were recommended for pneumomediastinum or right pleural effusion. Thoracentesis 12/29 with an output of 500 ml of sita colored serous fluid, no growth to date on culture. She has had reoccurring pleural effusions and infiltrate on repeat CT scan on 12/31. Rightpigtail catheter placed on 12/31. piperacillin-tazobactam for a total of 7 days. Infectious disease fo llowing. Patient had initial change in mental status in ICU likely related to polypharmacy and alcohol withdrawal. Mentation has improved since that time. [place] protocol for ETOH d/c 12/31. Patient smokes 1 ppd for 45 years and has nicotine patch in place 21 mg/24 h. Pulmonary consult for underlying lung issues TBD. Since last seen: transferred form ICU to telemetry, most awake today compared to previous visits, still admits to pain at pigtail site, no CP, abdominal pain, shortness of breath, nausea, vomiting, positive diarrhea. Appetite fair Goals of care: Improve or Maintain Function/Quality of Life Advance Directives: full code Surrogate: Child Prognosis: unknown Spiritual assessment: No spiritual distress identified Bereavement and grief: To Be Determined ROS: See palliative care ROS/ESAS below; see HPI Family Meeting: Participants:Child and Patient, see above and additional notes for details Objective: Physical Exam BP 139/75 Pulse 78 Temp 98 F (36.7 C) (Temporal) Resp 18 Ht 5' (1.524 m) Wt 111 lb 5.3 oz(50.5 kg) SpO2 97% BMI 21.74 kg/m Physical Exam Vitals and nursing note reviewed. HENT: Head: Normocephalic and atraumatic. Ears: Comments: C/o "the beginning of an earache" Nose: Nose normal. Mouth/Throat: Mouth: Mucous membranes are moist. Eyes: Pupils: Pupils are equal, round, and reactive to light. Cardiovascular: Rate and Rhythm: Normal rate and regular rhythm. Pulses: Normal pulses. Heart sounds: Normal heart sounds. No murmur heard. Comments: No edema B post tib/dorsalis pedis palpable Pulmonary: Effort: Pulmonary effort is normal. No respiratory distress. Breath sounds: No wheezing. Comments: Right chest especially at the "tube site" and rib tenderness Chest: Chest wall: Tenderness present. Abdominal: General: Bowel sounds are increased. Palpations: Abdomen is soft. Tenderness: There is generalized abdominal tenderness and tenderness in the right upper quadrant. Comments: Right upper quadrant Musculoskeletal: General: No swelling or deformity. Cervical back: Normal range of motion. Right lower leg: No edema. Left lower leg: No edema. Skin: General: Skin is warm and dry. Neurological: General: No focal deficit present. Mental Status: She is alert. Mental status is at baseline. Psychiatric: Mood and Affect: Mood normal. [place] Symptom Assessment Score [place] Score Pain Score 7 Tiredness Score 2 Nausea Score 0 Depression Score 5 Anxiety Score 5 Drowsiness Score 2 Anorexia Score (0= eating well, 10= not eating) 5 Wellbeing Score (10= worst sense of well-being) 8 Constipation 0 Dyspnea Score (0= no shortness of breath) 0 Assessed by: patient and provider. Intervention taken for pain: acetaminophen 1,000 mg three times daily, oxycodone 5-10 mg every 4 hours as needed for pain based on pain scale. All other systems were reviewed and are negative. Current Medications: Inpatient medications reviewed: yes Home Medications reviewed: yes 24 Hour PRNMeds: oxycodone 10 mg 3 doses/24 hours, morphine 4mg times 1 IV Results/Verification of Data Review Objective data reviewed: labs, medicationuse, vitals, and chart Data in Support of Terminal Illness: Is patient hospice appropriate? TBD * DESTINY Matthews NP - 01/04/2022 9:13 AM EDT Images from the original note were not included. [facility] Geriatric Medicine Inpatient Consult Service Admission Date: 12/27/2021 Assessment Principal Problem: Pneumomediastinum (HCC) Active Problems: Demand ischemia of myocardium (HCC) Pneumatosis of intestines Declining functional status At risk for delirium Alcohol abuse Acute respiratory insufficiency Shortness of breath Pleural effusion on right Palliative care encounter Elevated troponin Severe malnutrition (HCC) Alcoholic cirrhosis (HCC) Hypoxia Acute encephalopathy Cognitive deficits Constipation, slow transit Debility Resolved Problems: * No resolved hospital problems. * Plan Acute Encephalopathy --Resolved --Etiology likely medications, alcohol withdrawal, hypoxia --Encourage PO intake, time up in chair, family visits, supervised ambulation, and sleep hygiene --If agitated, assess for and consider treating for pain --QTc= 461 --No antipsychotic unless patient is danger to self/others/treatment --Continue PRN melatonin at HS --Monitor for constipation/urinary retention - last BM 12/31 --Possible medication contributions: phenobarb - now off Cognitive deficits --+history of cognitive decline at home. + history of decline in IADL's --TSH WNL, B12 WNL --Head imaging - none available --History concerning for baseline dementia, due to alcohol use + vascular risk factors --Recommend outpatient follow up at [facility] formore in depth cognitive evaluation when in usual state of health. Alcohol Abuse --Now off phenobarb. --Pt aware of recommendation to stop drinking, "not gonna happen" Constipation --Improved --Patient has two scheduled stimulant laxatives ordered: bisacodyl and senna- docusate. Recommend discontinuing scheduled bisacodyl, now on hold Declining functional status --Related to acute medical isuses, deconditioning --Continue PT/OT as able while inpatient --Anticipate d/c to SNF for ongoing daily PT/OT Follow-up: 1-2 days Subjective Chief Complaint: abd/chest pain, shortness of breath Geriatrics consulted for frailty, lives independently, heavy ETOH/Tobacco use HPI- The patient is known to me. 76 y.o. year-old female admitted to acute care from home for abd/chest pain, sob. Diagnosed with cecal pneumatosis/ pneumomediastinum. Per family report, history of short-term memory loss at home prior to hospitalization. Also has history of delirium with UTI. Long-standing alcohol and tobacco use. Interval History: Transferred to telemetry. 6104 No events overnight Awake, alert, oriented to self and place. Says " I can't keep up with what the day is around here' . Appears calm and denies feelings of confusion and anxiousness. Says she just got done working with OT and is a little tired now. Walked to the commode and had a small BM. Denies urinary symptoms. Complains of pain at chest tube site. Also complains of not being able to 'take a full breath like normal'. Says he appetite has yet to return and she just doesn't feel like eating. Forcing herself to eat atleast small amounts. Discussed with RN Seen by PT, min assist, ambulated 5 steps to the left, recommending SNF Review of Systems Constitutional: Positive for appetite change and fatigue. HENT: Negative for sore throat and trouble swallowing. Respiratory: Positive for shortness of breath. Negative for cough and chest tightness. Gastrointestinal: Negative for abdominal pain, constipation and nausea. Genitourinary: Negative for difficulty urinating and dysuria. Musculoskeletal: Positive for myalgias. Neurological: Negative for dizziness and headaches. Psychiatric/Behavioral: Positive for confusion. Negative for agitation and hallucinations. Objective BP 139/75 Pulse 66 Temp 98 F (36.7 C) (Temporal) Resp 17 Ht 5' (1.524 m) Wt 111 lb 5.3 oz(50.5 kg) SpO2 98% BMI 21.74 kg/m Intake/Output Summary (Last 24 hours) at 01/04/2022 0913 Last data filed at 01/04/2022 0435 Gross per 24 hour Intake -- Output 430 ml Net -430 ml Patient Vitals for the past 96 hrs (Last 3 readings): Weight 01/02/22 0400 111 lb 5.3 oz (50.5 kg) Current Facility-Administered Medications: ipratropium-albuterol (DUONEB) nebulizer solution 1 ampule, 1 ampule, Inhalation, BID sodium chloride (Inhalant) 3 % nebulizer solution 4 mL, 4 mL, Nebulization, BID spironolactone (ALDACTONE) tablet 25 mg, 25 mg, Oral, Daily hydrALAZINE (APRESOLINE) injection 10 mg, 10 mg, IntraVENous, Q4H PRN labetalol (NORMODYNE;TRANDATE) injection 10 mg, 10 mg, IntraVENous, Q4H PRN nicotine (NICODERM CQ) 21 MG/24HR 1 patch, 1 patch, TransDERmal, Daily folic acid (FOLVITE) tablet 1 mg, 1 mg, Oral, Daily thiamine mononitrate tablet 100 mg, 100 mg, Oral, Daily QUEtiapine (SEROQUEL) tablet 50 mg, 50 mg, Oral, Nightly potassium chloride (KLOR-CON) packet 40 mEq, 40 mEq, Oral, BID [Held by provider] bisacodyl (DULCOLAX) suppository 10 mg, 10 mg, Rectal, Daily PRN morphine sulfate (PF) injection 2 mg, 2 mg, IntraVENous, Q4H PRN OR morphine sulfate (PF) injection 4 mg, 4 mg, IntraVENous, Q4H PRN Glucose (TRUEPLUS) oral gel 15 g, 15 g, Oral, PRN dextrose 50 % IV solution, 12.5 g, IntraVENous, PRN glucagon (rDNA) injection 1 mg, 1 mg, IntraMUSCular, PRN dextrose 5 % solution, 100 mL/hr, IntraVENous, PRN [Held by provider] polyethylene glycol (GLYCOLAX) packet 17 g, 17 g, Oral, Daily levothyroxine (SYNTHROID) tablet 50 mcg, 50 mcg, Oral, Daily melatonin SL liquid 0.3 mg, 0.3 mg, SubLINGual, Nightly PRN sodium chloride flush 0.9 % injection 5-40 mL, 5-40 mL, IntraCATHeter, Q8H sodium chloride flush 0.9 % injection 5-40 mL, 5-40 mL, IntraCATHeter, PRN sodium chloride flush 0.9 % injection 5-40 mL, 5-40 mL, IntraVENous, 2 times per day sodium chloride flush 0.9 % injection 5-40 mL, 5-40 mL, IntraVENous, PRN 0.9 % sodium chloride infusion, , IntraVENous, PRN acetaminophen (TYLENOL) tablet 1,000 mg, 1,000 mg, Oral, 3 times per day oxyCODONE (ROXICODONE) immediate release tablet 5 mg, 5 mg, Oral, Q4H PRN OR oxyCODONE (ROXICODONE) immediate release tablet 10 mg, 10 mg, Oral, Q4H PRN lidocaine 4 % external patch 1 patch, 1 patch, TransDERmal, Daily [Held by provider] sennosides-docusate sodium (SENOKOT-S) 8.6-50 MG tablet 1 tablet, 1 tablet, Oral, BID [Held by provider] bisacodyl (DULCOLAX) EC tablet 5 mg, 5 mg, Oral, Daily ondansetron (ZOFRAN) injection 4 mg, 4 mg, IntraVENous, Q6H PRN enoxaparin (LOVENOX) injection 40 mg, 40 mg, SubCUTAneous, Daily Physical Exam Constitutional: No acute distress, thin, frail, disheveled Psych: Mood and affect Bright. Good eye contact. Cardiovascular: Regular rate and rhythm, no murmur, no BLE edema Pulmonary/Chest: Diminished to auscultation bilaterally, Increased respiratory effort, no coughing noted Abdominal: Soft, not distended, no tenderness to palpation, BS present, Neurological: alert, inattentive, speech is clear but vague , oriented to place and self, follows commands, no tremor and no rigidity Skin: warm and dry, no visible rashes or wounds Labs and Imaging: Recent Results (from the past 24 hour(s)) POCT Glucose Collection Time: 01/03/22 8:10 PM Result Value Ref Range POC Glucose 115 (H) 70 - 100 mg/dL Basic Metabolic Panel w/ Reflex to MG Collection Time: 01/04/22 1:11 AM Result Value Ref Range Sodium 137 135 - 145 mmol/L Potassium 4.0 3.5 - 5.1 mmol/L Chloride 108 (H) 98 - 107 mmol/L CO2 22 22 - 30 mmol/L Anion Gap 8 3 - 13 mmol/L Glucose 101 (H) 70 - 100 mg/dL BUN 10 9 - 20 mg/dL Creatinine 0.49 (L) 0.52 - 1.25 mg/dL eGFR >90.0 >60 mL/min EGFR IF NonAfrican [place] >90.0 >60 mL/min Calcium 7.9 (L) 8.4 - 10.4 mg/dL CBC with Auto Differential Collection Time: 01/04/22 1:11 AM Result Value Ref Range WBC 10.0 3.6 - 10.7 10*3/uL RBC 2.93 (L) 3.80 - 5.20 10*6/uL Hemoglobin 10.7 (L) 11.7 - 16.0 g/dL Hematocrit 30.9 (L) 35.0 - 47.0 % MCV 105.6 (H) 79.0 - 98.0 fL MCH 36.5 (H) 26.0 - 34.0 pg MCHC 34.6 32.0 - 36.0 % RDW 17.2 (H) 11.5 - 14.5 % Platelets 451 (H) 140 - 440 10*3/uL MPV 7.5 7.4 - 12.4 fL Granulocytes % 83.2 (H) 40.0 - 80.0 % Lymphocyte % 6.5 (L) 20.0 - 40.0 % Monocytes 7.7 2.0 - 10.0 % Eosinophils 2.2 1.0 - 6.0 % Basophils 0.4 0.0 - 2.0 % Absolute Neut # 8.3 (H) 1.8 - 7.0 10*3/uL Absolute Lymph # 0.7 (L) 1.0 - 4.3 10*3/uL Absolute [place] # 0.8 0.0 - 0.8 10*3/uL Absolute Eos # 0.2 0.0 - 0.5 10*3/uL Absolute Baso # 0.0 0.0 - 0.2 10*3/uL Procalcitonin Collection Time: 01/04/22 1:11 AM Result Value Ref Range Procalcitonin 15.03 (H) 0.00 - 0.09 ng/mL Interpretation See Below NA Magnesium Collection Time: 01/04/22 1:11 AM Result Value Ref Range Magnesium 2.1 1.6 - 2.3 mg/dL Phosphorus Collection Time: 01/04/22 1:11 AM Result Value Ref Range Phosphorus 4.6 (H) 2.5 - 4.5 mg/dL Add On Lab Test Collection Time: 01/04/22 6:08 AM Result Value Ref Range Add On Accepted NA POCT Glucose Collection Time: 01/04/22 7:56 AM Result Value Ref Range POC Glucose 91 70 - 100 mg/dL Lab Results Component Value Date TSH 2.263 12/29/2021 Lab Results Component Value Date [id number] 12/30/2021 No results found for: VITD25 Reviewed: active problem list, medication list, lab results, * Hugh Marsh - 01/04/2022 9:11 AM EDT Images from the original note were not included. Med Team Progress Note Jaimie AvendanoIsaias : 1945(76 y.o.) Date: January 04, 2022 Med Team: Chayo Attending: Dr. Acosta Chief Complaint: BL pleural effusions Subjective: - No acute events overnight. - Currently, patient still having right sided flank/abdominal pain near area of pigtail tube. Patient reports pain has improved since admission and pain is usually worse in the morning and improved throughout the day. - Pigtail tube at 700 mL, was at 600 mL yesterday. Pt overall w/no new complaints. Aware of deconditioning and agreeable to SNF on d/c. Had good experience at SNF following hip fx a few years ago. Review of Systems Constitutional: Negative for chills, diaphoresis and fever. HENT: Positive for congestion. Negative for rhinorrhea, sore throat and trouble swallowing. Eyes: Negative for pain and visual disturbance. Respiratory: Positive for cough and shortness of breath. Negative for chest tightness. Cardiovascular: Negative for chest pain and leg swelling. Gastrointestinal: Positive for abdominal pain (RUQ, area of pigtail and chest tube placements) and diarrhea. Negative for blood in stool, constipation, nausea and vomiting. Endocrine: Negative for polydipsia and polyuria. Genitourinary: Negative for dysuria, frequency and hematuria. Skin: Negative for rash and wound. Neurological: Negative for dizziness, weakness, light-headedness, numbness and headaches. Psychiatric/Behavioral: Negative for confusion and sleep disturbance. All other systems reviewed and are negative. Scheduled Meds: ipratropium-albuterol 1 ampule Inhalation BID sodium chloride (Inhalant) 4 mL Nebulization BID spironolactone 25 mg Oral Daily nicotine 1 patch TransDERmal Daily folic acid 1 mg Oral Daily thiamine mononitrate 100 mg Oral Daily QUEtiapine 50 mg Oral Nightly potassium chloride 40 mEq Oral BID [Held by provider] polyethylene glycol 17 g Oral Daily levothyroxine 50 mcg Oral Daily sodium chloride flush 5-40 mL IntraCATHeter Q8H sodium chloride flush 5-40 mL IntraVENous 2 times per day acetaminophen 1,000 mg Oral 3 times per day lidocaine 1 patch TransDERmal Daily [Held by provider] sennosides-docusate sodium 1 tablet Oral BID [Held by provider] bisacodyl 5 mg Oral Daily enoxaparin 40 mg SubCUTAneous Daily Continuous Infusions: dextrose sodium chloride PRN meds used in last 24hrs: Oxycodone 10mg x3 Objective: BP 139/75 Pulse 66 Temp 98 F (36.7 C) (Temporal) Resp 17 Ht 5' (1.524 m) Wt 111 lb 5.3 oz(50.5 kg) SpO2 98% BMI 21.74 kg/m Physical Exam Vitals reviewed. Constitutional: General: She is not in acute distress. Appearance: She is well-developed. She is ill-appearing. HENT: Right Ear: Hearing and external ear normal. Left Ear: Hearing and external ear normal. Nose: Congestion present. Mouth/Throat: Mouth: Mucous membranes are moist. Pharynx: Oropharynx is clear. Eyes: General: Lids are normal. Extraocular Movements: Extraocular movements intact. Conjunctiva/sclera: Conjunctivae normal. Comments: Pupils equal and round Neck: Thyroid: No thyromegaly or thyroid tenderness. Cardiovascular: Rate and Rhythm: Normal rate and regular rhythm. Heart sounds: Normal heart sounds, S1 normal and S2 normal. No murmur heard. No friction rub. No gallop. Pulmonary: Effort: Pulmonary effort is normal. No respiratory distress. Breath sounds: Normal breath sounds. No wheezing. Chest: Breasts: Right: No supraclavicular adenopathy. Left: No supraclavicular adenopathy. Abdominal: General: Bowel sounds are normal. Palpations: Abdomen is soft. There is no mass. Tenderness: There is abdominal tenderness (RUQ). Comments: No hepatosplenomegaly Musculoskeletal: Cervical back: Full passive range of motion without pain and neck supple. Right lower leg: No edema. Left lower leg: No edema. Lymphadenopathy: Cervical: No cervical adenopathy. Upper Body: Right upper body: No supraclavicular adenopathy. Left upper body: No supraclavicular adenopathy. Skin: General: Skin is warm and dry. Findings: No rash. Neurological: Mental Status: She is alert and oriented to person, place, and time. Sensory: Sensation is intact. Deep Tendon Reflexes: Reflexes are normal and symmetric. Psychiatric: Mood and Affect: Mood and affect normal. Cognition and Memory: Memory normal. Judgment: Judgment normal. Comments: Normal insight Frail appearing. Chest tube R chest wall. [facility] within last 24 hours Lab Results Component Value Date/Time WBC 10.0 01/04/2022 01:11 AM Hemoglobin 10.7 (L) 01/04/2022 01:11 AM Hematocrit 30.9 (L) 01/04/2022 01:11 AM Platelets 451 (H) 01/04/2022 01:11 AM MCV 105.6 (H) 01/04/2022 01:11 AM Lab Results Component Value Date/Time Sodium 137 01/04/2022 01:11 AM Potassium 4.0 01/04/2022 01:11 AM Chloride 108 (H) 01/04/2022 01:11 AM CO2 22 01/04/2022 01:11 AM BUN 10 01/04/2022 01:11 AM Creatinine 0.49 (L) 01/04/2022 01:11 AM Glucose 101 (H) 01/04/2022 01:11 AM Calcium 7.9 (L) 01/04/2022 01:11 AM Magnesium 2.1 01/04/2022 01:11 AM Phosphorus 4.6 (H) 01/04/2022 01:11 AM Lab Results Component Value Date/Time Procalcitonin 15.03 (H) 01/04/2022 01:11 AM Assessment and Plan: Pneumomediastinum Cecal Pneumatosis B/L pleural effusions Elevated procalcitonin - CT Chest 12/27: No presence of an esophageal injury. Fairly extensive pneumomediastinum, spanning the level of the thyroid gland of the gastroesophageal junction. Large right and small left pleural effusions with associated atelectatic change - CXR 01/03: Some improved aeration of the right lung base and decreased size of the right pleural effusion - Vitals: HDS, afebrile - Labs: LA 1.6 and downtrending, WBC 7.6 - Procal elevated from 6 to 23 on (01/01), procal recently at 15. Continue to trend - COVID-19 negative - Fluid cxs negative, bcx x1 showing coag neg staph, likely contaminant - No surgical intervention per general surgery. S/p thoracentesis 12/29 with 500 ccs sita colored serous fluid noted, exudative etiology, neg cytology - S/p 01/01 Thoracentesis with right pigtail to water seal (440cc) - cultures came back, showed coag neg staph, concerned for contamination - Per Pulmonology: Continue with goal O2 92% given COPD, acapella, IS, duonebs q4h, 3% nebs TID. Patient diuresed x1 with lasix IV 20 mg 01/01 - Continue diuresis with benton 20 mg - Chest tube removal possibly today per pulmonology, around 600 ccs today. Daily CXRs - Follow-up outpatient Pulm - Per ID: continue with zosyn 12/28-01/04, elevated procal likely secondary to post-procedural etiology, keep monitoring for s/s of infection - Pulmonology following, ID following, recs appreciated - 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 following, continue with ensure, soft/easy chew diet - Serial abdominal exams - Protonix IV daily - CT surgery following, general surgery signed off Chronic RUQ/R chest pain - Moderate pain compared to admission, pt s/p thoracentesis and R pigtail placement. Continue monitoring - Scheuled tylenol, morphine IV prn, oxy prn - Lido patch for R chest pain Hepatic Cirrhosis - Likely secondary to EtOH liver cirrhosis - CT Chest 12/27 showing evidence of hepatic cirrhosis - ALT 14, AST 29, ALP 91 - Continue monitoring liver enzymes Elevated Troponin Secondary to Demand Ischemia Prolonged QTc - elevated troponin likely due to ischemic demand from acute illness- MAP goal >65, no issues atthis time - trop 0.124 12/30 from 0.162 12/29 - Hydralazine and labetalol prn antihypertensives for SBP>160 - 12/29 EKG: NSR 116, Qtc 461 - Continue tele - Cardiology consulted, pending recs - Avoid QT prolonging meds Acute metabolic encephalopathy Declining Functional Status - Developed AMS after admission to ICU. Likely multifactorial in setting of EtOH withdrawal, polypharmacy, hospital-acquired delirium - Patient more at baseline, A&Ox3. was altered upon admission q8h seroquel for delirium - Melatonin nightly - Geriatrics and palliative care following - PT/OT following Urinary Retention - Denies sxs, I/O net -1.6L - urine antigens negaive - Bladder scan 12/28 400ccs - Costa removed 01/03 - Continue monitoring I/O's Macrocytic Anemia - Hgb 10.8, MCV 106.8, overall stable - Likely secondary to EtOH use disorder - B12 wnl - RBC morphology 01/02 overall unremarkable - Continue monitoring H/H Alcohol Use Disorder - Patient has 2-3 glasses of wine daily, not interested in cessation at this time - No withdrawal symptoms noted - folic acid and thiamine - Last dose of scheduled phenobarb 01/02 - [facility] protocols stopped Tobacco Abuse - Pt smokes 1ppd - Continue encouraging cessation Hypothyroidism - TSH wnl on admission - Continue home synthroid 50 mcg COPD - Continue with goal O2 92% given COPD, acapella, IS, duonebs q4h, 3% nebs TID - Pulmonology following - OP pulm follow-up Disposition: SNF ([facility]) when patient is medically stable per surgery recs. - Goals of Care: FULL CODE - DVT Prophylaxis: lovenox 40 q24h - creatinine clearance > 30 - GI Prophylaxis: Not Indicated - Diet: General Associated attestation - Mary Acosta DO - 01/04/2022 6:10 PM EDT I have discussed the care of Jaimie AvendanoJesJessie with the medical student and/or resident. I have personally taken a history, examined the patient, and performed the associated medical decision making activities. I have reviewed & verified the attested documentation. Unless otherwise noted below, this documentation reflects the history, physical exam, and medical decision making that I performed myself. Please see below for my personal highlights or additions to the note. Patient seen and examined by myself on 01/04/22 -pt seen and evaluated by me this afternoon. D/W Palliative care [employer]. -anticpate d/c to SNF once chest tube removed and tolerates that. * Roberto Rodriguez DO - 01/03/2022 2:18 PM EDT Images from the original note were not included. [facility] - Infectious Diseases Attending Progress Note Subjective: During my assessment, patient is alert and oriented, and states that she is feeling well. She has mild soreness around her chest tube insertion site, but otherwise has no new complaints. Denies fever, chills, nausea, vomiting, or abdominal pain. Pigtail to be removed tomorrow. Vitals are stable and she is afebrile. WBC is 6.6. Currently on pip-tazo, day 7. Pleural fluid CXs show NGTD. Objective: Vitals: Patient Vitals for the past 24 hrs: BP Temp Temp src Pulse Resp SpO2 01/03/22 1016 -- -- -- 67 18 100 % 01/03/22 1011 -- -- -- 66 18 98 % 01/03/22 0456 105/60 97.6 F (36.4 C) Temporal 60 16 98 % 01/02/22 2210 122/62 -- -- 76 -- -- 01/02/222151 122/62 97.5 F (36.4 C) Temporal 76 28 95 % 01/02/22 2100 112/60 -- -- 83 28 -- 01/02/22 2000 (!) 120/58 99.4 F (37.4 C) Temporal 85 23 94 % 01/02/22 1900 117/66 -- -- 81 24 -- 01/02/22 1800 130/67 -- -- 96 23 -- 01/02/22 1700 (!) 162/73 -- -- 93 29 -- 01/02/22 1654 -- -- -- (!) 104 22 93 % 01/02/22 1652 -- -- -- 88 29 95 % 01/02/22 1600 (!) 143/71 97.3 F (36.3 C) Temporal 80 26 -- 01/02/22 1500 129/65 -- -- 73 21 -- Physical Exam Constitutional: Appearance: She is not ill-appearing or toxic-appearing. HENT: Head: Normocephalic and atraumatic. Mouth/Throat: Mouth: Mucous membranes are dry. Eyes: General: No scleral icterus. Extraocular Movements: Extraocular movements intact. Pupils: Pupils are equal, round, and reactive to light. Cardiovascular: Rate and Rhythm: Normal rate and regular rhythm. Pulses: Normal pulses. Heart sounds: Normal heart sounds. No murmur heard. No friction rub. No gallop. Pulmonary: Breath sounds: No wheezing, rhonchi or rales. Comments: R chest tube; diminished breath sounds b/l Abdominal: General: Abdomen is flat. Bowel sounds are normal. Palpations: Abdomen is soft. There is no mass. Tenderness: There is no abdominal tenderness. There is no guarding or rebound. Hernia: No hernia is present. Musculoskeletal: Cervical back: Normal range of motion and neck supple. Right lower leg: No edema. Left lower leg: No edema. Skin: General: Skin is warm and dry. Findings: No lesion or rash. Neurological: General: No focal deficit present. Mental Status: She is alert. Psychiatric: Mood and Affect: Mood normal. Judgment: Judgment normal. Labs: Component Value Date/Time NA 138 01/03/2022 0053 K 3.6 01/03/2022 0053 CL 107 01/03/2022 0053 CO2 26 01/03/2022 0053 BUN 10 01/03/2022 005 CREATININE 0.61 01/03/2022 005 GLUCOSE 99 01/03/2022 0053 CALCIUM 7.8 (L) 01/03/2022 0053 PROT 5.9 (L) 01/03/2022 005 LABALBU 2.8 (L) 01/03/2022 005 BILITOT 0.4 01/03/2022 005 ALKPHOS 91 01/03/2022 0053 AST 29 01/03/2022 0053 ALT 14 01/03/2022 005 PROCAL 23.68 (H) 01/02/2022 0318 PROCAL 6.23 (H) 12/31/2021 0258 PROCAL 3.68 (H) 12/29/2021 1018 Component Value Date/Time WBC 7.6 01/03/202252 HGB 10.8 (L) 01/03/202252 HCT 32.7 (L) 01/03/202252 PLT 365 01/03/202252 GRANULOCYTES 80.5 (H) 01/03/202252 LYMPHOPCT 8.6 (L) 01/03/202252 MONOPCT 7.7 01/03/202252 LABEOS 2.4 01/03/202252 BASOPCT 0.8 01/03/202252 NEUTROABS 6.1 01/03/202252 Micro: 12/27 Respiratory Panel, Molecular, with COVID-19 negative 12/27 Blood CXs + for CoNS 12/29 Strep pneumoniae Ag, urine: negative 12/29 Legionella Ag, urine: negative 01/01 Body fluid CX NGTD Lines: 01/01 RUE PIV Antimicrobials, Start/End Dates: 12/28- piperacillin/tazobactam Impression: Ms. Avendano is a 76 y/o F w/ PMH of alcoholic cirrhosis, hypothyroidism, and COPD. Presented to [facility] 12/27 w/ pain in the RUQ, R shoulder, and R chest. CT at [place] [facility] showed cecal pneumatosis and pneumomediastinum, and she was transferred to [facility]. Both general surgery and thoracic surgery were consulted for pneumomediastinum, R pleural effusion. CT Esophagram showed no signs of esophageal injury. Thoracentesis 12/29 yielded 500 mL sita colored serous fluid; fluid CXs show NGTD. She had recurrenceof b/l pleural effusions, R>L, and multifocal infiltrate L>R on repeat CT 12/31/21. R pigtail catheter was placed on 12/31. She is being managed conservatively per the recommendations of general bassam mays. Patient has developed altered mental status since admission, and procalcitonin increased to 23 from 6. The ID service is consulted for AMS and elevated procalcitonin. Plan: 1. Acute metabolic encephalopathy - Patient developed AMS after admission to the ICU - Likely multifactorial in the setting of ETOH withdrawal, polypharmacy, hospital-aquired delirium - Low suspicion for acute RECORDS SECTION SUPERVISOR infection at this time 2. Elevated procalcitonin- Pro-calcitonin elevation is most likely post- procedural; no suspicion for new/worsening PNA given lack of respiratory symptoms, normal WBC, and improving O2 requirements 3. Cecal pneumatosis- continue piperacillin-tazobactam for a total of 7 days 4. b/l pleural effusions, R>L- s/p R thoracentesis on 12/29/21- exudative with negative culture and negative cytology, and R pigtail chest tube 01/01/22 cultures pending 5. Acute on chronic hypoxic respiratory failure- initially needed HFNC; patient has been weaned down to 2L NC; currently on piperacillin-tazobactam 6. Pneumomediastinum- CT surgery did not recommend any surgical intervention 7. Alcoholic cirrhosis 8. Hypothyroidism 9. ETOH abuse 10. Severe malnutrition 11. Tobacco use disorder 12. COPD Recommendations: 1. Discontinue piperacillin/tazobactam after today for possible intra-abdominal infectious process 2. Will follow CX results from pleural fluid 3. Mental status has improved; no concern of RECORDS SECTION SUPERVISOR infection at this time 4. Pro-calcitonin elevation is most likely post-procedural; no suspicion for new/worsening PNA given lack of respiratory symptoms, normal WBC, and improving O2 requirements The ID service will continue to follow. More than 51% total time 35 Minutes counseling (or coordinating care) and providing discussion regarding plan of care, expectations, antimicrobials. * Mely Burch MD - 01/03/2022 12:59 PM EDT Images from the original note were not included. Med Team Progress Note Jaimie Mcgovern : 1945(76 y.o.) Date: January 03, 2022 Med Team: Chayo Attending: Dr. Dhaliwal Chief Complaint: BL pleural effusions Subjective: - No acute events overnight. - Upon examination this AM, patient was resting comfortably in bed. A&Ox3. Denies any new complaints. States that her pain is localized to RUQ, improved since admission and characterized as dull,5/10 pain. Endorses diarrhea unchanged since admission. Denies fevers, chills, CP, SOB, n/v/c, abdominal pain. Saturating well off of NC. Patient has a R pigtail cath in place with about 600ccs fluid. Review of Systems Constitutional: Negative for activity change, appetite change, chills, fatigue and fever. HENT: Negative for postnasal drip, rhinorrhea, sinus pain and sore throat. Respiratory: Negative for apnea, cough, choking, chest tightness, shortness of breath, wheezing andstridor. Cardiovascular: Negative for chest pain, palpitations and leg swelling. Gastrointestinal: Positive for abdominal pain and diarrhea. Negative for abdominal distention, constipation, nausea and vomiting. Mild RUQ abdominal pain similar to baseline on admission Genitourinary: Negative for flank pain, frequency, hematuria and urgency. Musculoskeletal: Negative for arthralgias, back pain and myalgias. Skin: Negative for color change, pallor, rash and wound. Neurological: Negative for dizziness, weakness, light-headedness, numbness and headaches. Psychiatric/Behavioral: Negative for agitation and confusion. Scheduled Meds: ipratropium-albuterol 1 ampule Inhalation BID sodium chloride (Inhalant) 4 mL Nebulization BID spironolactone 25 mg Oral Daily nicotine 1 patch TransDERmal Daily folic acid 1 mg Oral Daily thiamine mononitrate 100 mg Oral Daily QUEtiapine 50 mg Oral Nightly potassium chloride 40 mEq Oral BID [Held by provider] polyethylene glycol 17 g Oral Daily levothyroxine 50 mcg Oral Daily piperacillin-tazobactam 4,500 mg IntraVENous Q6H sodium chloride flush 5-40 mL IntraCATHeter Q8H sodium chloride flush 5-40 mL IntraVENous 2 times per day acetaminophen 1,000 mg Oral 3 times per day lidocaine 1 patch TransDERmal Daily [Held by provider] sennosides-docusate sodium 1 tablet Oral BID [Held by provider] bisacodyl 5 mg Oral Daily enoxaparin 40 mg SubCUTAneous Daily Continuous Infusions: dextrose sodium chloride Objective: BP 105/60 Pulse 67 Temp 97.6 F (36.4 C) (Temporal) Resp 18 Ht 5' (1.524 m) Wt 111 lb 5.3 oz (50.5 kg) SpO2 100% BMI 21.74 kg/m Physical Exam Constitutional: General: She is not in acute distress. Appearance: Normal appearance. She is normal weight. She is not ill-appearing or toxic-appearing. HENT: Head: Normocephalic and atraumatic. Nose: Nose normal. No congestion or rhinorrhea. Mouth/Throat: Mouth: Mucous membranes are moist. Pharynx: Oropharynx is clear. No oropharyngeal exudate. Cardiovascular: Rate and Rhythm: Normal rate and regular rhythm. Pulses: Normal pulses. Heart sounds: Normal heart sounds. No murmur heard. No friction rub. No gallop. Pulmonary: Effort: Pulmonary effort is normal. No respiratory distress. Breath sounds: No stridor. Rhonchi and rales present. No wheezing. Chest: Chest wall: No tenderness. Abdominal: General: Abdomen is flat. Bowel sounds are normal. There is no distension. Palpations: Abdomen is soft. There is no mass. Tenderness: There is no abdominal tenderness. There is no guarding or rebound. Musculoskeletal: Right lower leg: No edema. Left lower leg: No edema. Skin: General: Skin is warm and dry. Coloration: Skin is not jaundiced. Findings: No bruising. Neurological: General: No focal deficit present. Mental Status: She is alert and oriented to person, place, and time. Mental status is at baseline. [facility] within last 24 hours Lab Results Component Value Date/Time WBC 7.6 01/03/2022 12:53 AM Hemoglobin 10.8 (L) 01/03/2022 12:53 AM Hematocrit 32.7 (L) 01/03/2022 12:53 AM Platelets 365 01/03/2022 12:53 AM MCV 106.8 (H) 01/03/2022 12:53 AM Lab Results Component Value Date/Time Sodium 138 01/03/2022 12:53 AM Potassium 3.6 01/03/2022 12:53 AM Chloride 107 01/03/2022 12:53 AM CO2 26 01/03/2022 12:53 AM BUN 10 01/03/2022 12:53 AM Creatinine 0.61 01/03/2022 12:53 AM Glucose 99 01/03/2022 12:53 AM Calcium 7.8 (L) 01/03/2022 12:53 AM Lab Results Component Value Date/Time AST 29 01/03/2022 12:53 AM ALT 14 01/03/2022 12:53 AM Total Protein 5.9 (L) 01/03/2022 12:53 AM Albumin,Serum 2.8 (L) 01/03/2022 12:53 AM Total Bilirubin 0.4 01/03/2022 12:53 AM Alkaline Phosphatase 91 01/03/2022 12:53 AM Lab Results Component Value Date/Time Lactic Acid 1.6 01/03/2022 12:53 AM Assessment and Plan: Pneumomediastinum Cecal Pneumatosis B/L pleural effusions Elevated procalcitonin - CT Chest 12/27: No presence of an esophageal injury. Fairly extensive pneumomediastinum, spanning the level of the thyroid gland of the gastroesophageal junction. Large right and small left pleural effusions with associated atelectatic change - CXR 01/03: Some improved aeration of the right lung base and decreased size of the right pleural effusion - Vitals: HDS, afebrile - Labs: Procal elevated from 6 to 23, LA 1.6 and downtrending, WBC 7.6 - COVID-19 negative - Fluid cxs negative, bcx x1 showing coag neg staph, likely contaminant - No surgical intervention per general surgery. S/p thoracentesis 12/29 with 500 ccs sita colored serous fluid noted, exudative etiology, neg cytology - S/p 01/01 Thoracentesis with right pigtail to water seal (440cc), cultures pending - Per Pulmonology: Continue with goal O2 92% given COPD, acapella, IS, duonebs q4h, 3% nebs TID. Patient diuresed x1 with lasix IV 20 mg 01/01 - Continue diuresis with benton 20 mg - Chest tube removal possibly tomorrow per pulmonology, around 600 ccs today. Daily CXRs - Follow-up outpatient Pulm - Per ID: continue with zosyn 12/28-01/04, elevated procal likely secondary to post-procedural etiology, keep monitoring for s/s of infection - Pulmonology following, ID following, recs appreciated - 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 following, continue with ensure, soft/easy chew diet - Serial abdominal exams - Protonix IV daily - CT surgery following, general surgery signed off Chronic RUQ/R chest pain - Moderate pain compared to admission, pt s/p thoracentesis and R pigtail placement. Continue monitoring - Scheuled tylenol, morphine IV prn, oxy prn - Lido patch for R chest pain Hepatic Cirrhosis - Likely secondary to EtOH liver cirrhosis - CT Chest 12/27 showing evidence of hepatic cirrhosis - ALT 14, AST 29, ALP 91 - Continue monitoring liver enzymes Elevated Troponin Secondary to Demand Ischemia Prolonged QTc - elevated troponin likely due to ischemic demand from acute illness- MAP goal >65, no issues atthis time - trop 0.124 12/30 from 0.162 12/29 - Hydralazine and labetalol prn antihypertensives for SBP>160 - 12/29 EKG: NSR 116, Qtc 461 - Continue tele - Cardiology consulted, pending recs - Avoid QT prolonging meds Acute metabolic encephalopathy Declining Functional Status - Developed AMS after admission to ICU. Likely multifactorial in setting of EtOH withdrawal, polypharmacy, hospital-acquired delirium - Patient more at baseline, A&Ox3. was altered upon admission q8h seroquel for delirium - Melatonin nightly - Geriatrics and palliative care following - PT/OT following Urinary Retention - Denies sxs, I/O net -1.6L - urine antigens negaive - Bladder scan 12/28 400ccs - Costa removed 01/03 - Continue monitoring I/O's Macrocytic Anemia - Hgb 10.8, MCV 106.8, overall stable - Likely secondary to EtOH use disorder - B12 wnl - RBC morphology 01/02 overall unremarkable - Continue monitoring H/H Alcohol Use Disorder - Patient has 2-3 glasses of wine daily, not interested in cessation at this time - No withdrawal symptoms noted - folic acid and thiamine - Last dose of scheduled phenobarb 01/02 - Continue CIWA Tobacco Abuse - Pt smokes 1ppd - Continue encouraging cessation Hypothyroidism - TSH wnl on admission - Continue home synthroid 50 mcg COPD - Continue with goal O2 92% given COPD, acapella, IS, duonebs q4h, 3% nebs TID - Pulmonology following - OP pulm follow-up Disposition: SNF ([facility]) when patient is medically stable per surgery recs. - Goals of Care: FULL CODE - DVT Prophylaxis: lovenox 40 q24h - creatinine clearance > 30 - GI Prophylaxis: Not Indicated - Diet: General Associated attestation - Raman Dhaliwal MD - 01/03/2022 2:01 PM EDT Attending Supervising Physician's Attestation Statement I performed a history and physical examination on the patient and discussed the management with theresident physician. I reviewed and agree with the findings and plan as documented in their note. Seen with med team this morning. Intestinal (cecal) pneumatosis-- CTA negative for severe mesenteric vascular compromise); 7 days ofempiric Zosyn empirically. Pneumomediastinum-- CT showed no esophageal compromise; due to COPD/coughing? Hospital delirium-- likely multifactorial and improving. B loculated pleural effusions including exudative on right -- non-infected per pleural fluid analysis; pigtail removal planned for tomorrow. ETOH and tobacco dependence-- per patient no interest in stopping either; agrees to placement into SNF; advanced directives per [facility] care. * Raman Monte MD - 01/03/2022 12:13 PM EDT Images from the original note were not included. PULMONARY SERVICE DAILY PROGRESS NOTE 01/03/2022 Hospital LOS: LOS: 7 days Impression: BL pleural effusions R>L with right thoracentesis and now pigtail in place on the right. 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 History of liver cirrhosis Pneumotosis Pneumomediastium, no evidence of esophageal perforation Recommendations: Chest tube has low output, however appears to have some residual fluid on CXR. Would likely favor removal in the next day or so given her improvement and history of liver disease etc versus intrapleural lytic therapy. Optimize diuretics lasix + aldactone OP Pulm workup if desired Nebs Wean oxygen No sign of pulmonary infection. Daily CXR Interval History/Event Changes: Patient states breathing improving. Denies fever or chills. Now on H6. No cough or hemoptysis Allergies Allergies Allergen Reactions Latex Azithromycin did not work Bisoprolol-Hydrochlorothiazide did not work Review of Systems A pertinent review of systems was performed and was otherwise non-contributory. Vitals- BP 105/60 Pulse 67 Temp 97.6 F (36.4 C) (Temporal) Resp 18 Ht 5' (1.524 m) Wt 111 lb 5.3 oz (50.5 kg) SpO2 100% BMI 21.74 kg/m Tmax: Temp (24hrs), Av F (36.7 C), Min:97.3 F (36.3 C), Max:99.4 F (37.4 C) Hemodynamics: Cuff: Systolic (24hrs), Av , Min:105 , Max:162 /Diastolic (24hrs), Av, Min:58, Max:73 Cuff MAP:MAP (mmHg) Av.3 Min: 67 Max: 163 P: Pulse Av.7 Min: 60 Max: 104 Observed RR: Resp Av.1 Min: 16 Max: 29 Observed O2 sats: SpO2 Av.2 % Min: 78 % Max: 100 % Intake/Output Summary (Last 24 hours) at 01/03/2022 1213 Last data filed at 01/03/2022 0733 Gross per 24 hour Intake 240 ml Output 580 ml Net -340 ml Physical exam- General appearance: Not ill appearing, alert, no converstional dyspnea Head: Normocephalic, without obvious abnormality, atraumatic Eyes:Pupils bilateral equal and reactive, EOM intact, conjunctiva - no icterus , no injection Throat: Clear, no lesions, Mallampti =1, no tonsillar eythema or edema Neck: Supple, symmetrical, trachea midline, no significant lymphadenopathy Lungs: Diminshed at bases, scattered rhonchi, no wheeze Heart: RRR, S1, S2 normal, no murmur, click, rub or gallop Abdomen: soft, non-tender, nondistended. Bowel sounds normal Extremities: extremities normal, atraumatic, no cyanosis, edema Musculoskeletal - No deformities Skin: Skin color, texture, turgor normal. No rashes or lesions Neurological: No focal deficits, cranial nerves grossly intact, sensations intact Psychiatric : Mood and effect normal , alert and oriented times 4 Routine labs: Recent Labs 01/01/22 0041 01/02/22 0318 01/03/22 0053 WBC 11.8* 7.7 7.6 HGB 10.9* 10.4* 10.8* HCT 32.4* 31.4* 32.7* PLT 220 268 365 Recent Labs 01/01/22 0041 01/02/22 0554 01/03/22 0053 NA 136 138 138 K 4.1 3.6 3.6 CL 112* 110* 107 CO2 22 26 26 BUN 3* 5* 10 CREATININE 0.40* 0.54 0.61 No results for input(s): GLU in the last 72 hours. Other Laboratory - Imaging Studies: Reviewed and as per electronic record. CxR/CT images reviewed by me when available. CXR reviewed. Raman Monte MD 01/03/22 * Dex Puga MD - 01/02/2022 8:27 AM EDT Images from the original note were not included. Department of General Surgery Daily Progress Note ADMIT DATE: 12/27/2021 TODAY'S DATE: 01/02/2022 SUBJECTIVE: ALBERTO Asked me for scissors this AM No nausea or vomiting Abdomen is not bothering her OBJECTIVE: VITALS: BP (!) 140/67 Pulse 76 Temp 97.1 F (36.2 C) (Temporal) Resp 18 Ht 5' (1.524 m) Wt111 lb 5.3 oz (50.5 kg) SpO2 97% BMI 21.74 kg/m INTAKE/OUTPUT: Date 01/02/22 0000 - 01/02/22 235 Shift 9882-2745 9404-4994 0748-9976 24 Hour Total INTAKE P.O.(mL/kg/hr) 250(0.6) 250 I.V.(mL/kg) 226.6(4.5) 226.6(4.5) Shift Total(mL/kg) 476.6(9.4) 476.6(9.4) OUTPUT Urine(mL/kg/hr) 900(2.2) 100 1000 Shift Total(mL/kg) 900(17.8) 100(2) 1000(19.8) Weight (kg) 50.5 50.5 50.5 50.5 I/O last 3 completed shifts: In: 2710.6 [P.O.:250; I.V.:2310.6; IV Piggyback:150] Out: 4610 [Urine:4115; Chest Tube:495] I/O this shift: In: - Out: 100 [Urine:100] PHYSICAL EXAM: Gen: NAD, A&Ox3, pain well controlled Heart: RRR, well perfused Lungs: symmetric chest rise, normal work of breathing, breath sounds b/l Abd: soft, nontender no reobund or guarding. Non tense Ext: no c/c/e no gross deformities Skin: warm, well perfused, no obvious rashes, cellulitis or gross discoloration LABS CBC: Recent Labs 12/31/21 0428 01/01/22 0041 01/02/22 0318 WBC 7.8 11.8* 7.7 HGB 10.6* 10.9* 10.4* HCT 32.2* 32.4* 31.4* PLT 193 220 268 BMP: Recent Labs 12/31/21 0258 01/01/22 0041 01/02/22 0554 NA 137 136 138 K 2.9* 4.1 3.6 CL 111* 112* 110* CO2 23 22 26 BUN 5* 3* 5* CREATININE 0.49* 0.40* 0.54 GLUCOSE 163* 129* 80 Hepatic: Recent Labs 12/31/21 0258 01/01/22 0041 AST 40 35 ALT 12 12 BILITOT 0.9 1.0 ALKPHOS 60 56 Current Inpatient Medications Scheduled Meds: ipratropium-albuterol 1 ampule Inhalation BID sodium chloride (Inhalant) 4 mL Nebulization BID nicotine 1 patch TransDERmal Daily PHENobarbital 16.2 mg Oral Nightly folic acid 1 mg Oral Daily thiamine mononitrate 100 mg Oral Daily QUEtiapine 50 mg Oral Nightly potassium chloride 40 mEq Oral BID [Held by provider] polyethylene glycol 17 g Oral Daily levothyroxine 50 mcg Oral Daily piperacillin-tazobactam 4,500 mg IntraVENous Q6H sodium chloride flush 5-40 mL IntraCATHeter Q8H sodium chloride flush 5-40 mL IntraVENous 2 times per day acetaminophen 1,000 mg Oral 3 times per day lidocaine 1 patch TransDERmal Daily [Held by provider] sennosides-docusate sodium 1 tablet Oral BID [Held by provider] bisacodyl 5 mg Oral Daily enoxaparin 40 mg SubCUTAneous Daily Continuous Infusions: dextrose sodium chloride PRN Meds:hydrALAZINE, labetalol, [Held by provider] bisacodyl, morphine OR morphine, glucose, dextrose, glucagon (rDNA), dextrose, melatonin, sodium chloride flush, sodium chloride flush, sodium chloride, oxyCODONE OR oxyCODONE, ondansetron, [Held by provider] LORazepam OR [Held by provider] LORazepam OR [Held by provider] LORazepam OR [Held by provider] LORazepam OR [Heldby provider] LORazepam OR [Held by provider] LORazepam OR [Held by provider] LORazepam OR [Held by provider] LORazepam ASSESSMENT AND PLAN: 76 y.o. female with cecal pneumatosis and pneumomediastinum - serial abdominal exams, currently non-acute - other management per SICU - No further ACS plans, will sign off Will discuss with Dr. Timothy PUGA MD General Surgery PGY-2 01/02/22 8:27 AM Pager # [phone] This note may have been dictated using [employer] Practice Edition 2.6 and/or [employer] Voice Recognition Feature. The document was proofread; however, unrecognized voice recognition flight dispatcher errors may be present. Associated attestation - Erendira Maciel MD - 01/03/2022 8:40 PM EDT ~~~~~~~~~~~~~~~~~~~~~~~~~~~~~~~~~~~~~~~~~~~~~~~~~~~~~~~~~~~~~ ATTENDING ADDENDUM Hospital Problems Last Modified POA * (Principal) Pneumomediastinum (HCC) 12/29/2021 Yes Demand ischemia of myocardium (HCC) 12/29/2021 Yes Pneumatosis of intestines 12/27/2021 Yes Declining functional status 01/01/2022 Yes At risk for delirium 12/28/2021 Yes Alcohol abuse 12/28/2021 Yes Acute respiratory insufficiency 12/29/2021 Yes Shortness of breath 12/29/2021 Yes Pleural effusion on right 01/01/2022 Yes Palliative care encounter 12/29/2021 Yes Elevated troponin 12/30/2021 Yes Severe malnutrition (HCC) (Chronic) 01/01/2022 Yes Alcoholic cirrhosis (HCC) 01/01/2022 Yes Hypoxia 01/01/2022 Yes Acute encephalopathy 01/01/2022 Yes Cognitive deficits 01/01/2022 Yes Constipation, slow transit 01/01/2022 Yes Debility 01/01/2022 Yes I independently saw the above patient and reviewed the recent events, imaging, labs, vital signs; Iperformed a physical exam and ROS on the same date of service as above. My findings agree with the above note except for any details corrected below. A complete review of systems was obtained and is negative except as stated in HPI. Per Dr. Puga's note Pneumatosis resolved Erendira Maciel MD Division of Trauma Department of Surgery [facility] Pager: [phone] ~~~~~~~~~~~~~~~~~~~~~~~~~~~~~~~~~~~~~~~~~~~~~~~~~~~~~~~~~~~~~ This note may have been dictated using [employer] Edition 2.6 and/or [employer] Voice Recognition Feature. The document was proofread; however, unrecognized voice recognition flight dispatcher errors may be present. * Darlene Hanson, CEPHALOMETRIC TECHNICIAN - 01/02/2022 7:29 AM EDT [facility] Respiratory Care Department Progress Note As part of the Respiratory Assessment Program (RAP), the following Respiratory Therapist evaluationhas been completed, including a chart review and clinical/physical assessment. Respiratory Therapist RAP Evaluation Guideline Points 0 1 2 3 4 Points Strongly Consider History Factor No Pulmonary conditions Stable Pulmonary condition(s) Surgery or Intervention that may impact Pulmonary system (at risk) Surgery or Intervention that is impacting Pulmonary system Active Exacerbation of Pulmonary Condition 0 Respiratory Pattern Regular, RR= 12-18 MISHRA or Increased RR= 19-24 Irregular, or RR= 25-30 SOB, talk in short sentences, or RR= 31-35 Severe SOB, accessory muscle use, one word answers, or RR>35 0 Aerosol Med(s), High Flow O2 Breath Sounds Clear Diminished in 1 lobe Diminished in ? 2 lobes Adventitious breath sounds Coarse crackles, Wheezes, or Diminished in >2 lobes 2 Aerosol Med(s), Bronchial Hygiene, Hyperinflation Cough & Sputum Strong cough, no secretion retention or production Weak cough, no secretion retention or production Weak cough, w/ production (less often than Q2hr), or secretion retention No cough, w/ secretion retention or production (less often than Q2hr) Significant secretion production (more often than Q2hr) or mucus plug 1 Aerosol Med(s), Bronchial Hygiene, Hyperinflation Level of Activity Ambulatory Ambulatory with Assist Up in chair or edge of bed (dangle) Non-ambulatory, bedridden with active ROM Completely paralyzed or without active ROM 3 Triage 5 0-2 Triage 4 3-5 Triage 3 6-10 Triage 2 11-14 Triage 1 ?15 Total 5 Triage Score = 4 TRIAGE SCORING - SUGGESTED FREQUENCIES Aerosol Therapy Bronchial Hygiene Hyperinflation Triage Score Q4h & PRN 1 Q4hWA (QID) & PRN 2 TID & PRN 3 BID & PRN 4 PRN 5 Therapy(s) Indicated Yes/No Aerosol Medication yes Hyperinflation no Bronchial Hygiene no High Flow Oxygen no RT to enter/modify frequency of treatment order in EMR/EHR to match this RAP evaluation. Based on this RAP evaluation the following therapy is being initiated: duoneb & sod chl At the following frequency: bid Comments: Thank you for involving Respiratory in the care of this patient, * Blayne Zelaya MD - 01/02/2022 7:04 AM EDT Daily SICU Progress Note Nurse Practitioner 01/02/2022 7:04 AM Admit Date: 12/27/2021 Post Hospital Day 6 History of Present illness: 76 y.o. female with significant past medical history of cirrhosis, COPD, hypothyroidism who presents with R shoulder, R chest, and RUQ pain. Patient received CT scan at [place] [facility] and was transferred here with concern for cecal pneumatosis as well as pneumomediastinum. PROCEDURES: 12/29 right thoracentesis-525ml bloody fluid 01/01 right thoracentesis with pigtail placement to water seal INCIDENTAL FINDINGS: none CHIEF COMPLAINT: chest pain, abdominal pain PREVIOUS 24 HOUR EVENTS: NAEON. On 2L NC Intermittent agitation, seroquel given in PM, in restaints Seen by Pulm team Consults: IP CONSULT TO GENERAL SURGERY IP CONSULT TO GERIATRICS IP CONSULT TO PALLIATIVE CARE IP CONSULT TO DIETITIAN IP CONSULT TO CARDIOLOGY IP CONSULT TO PULMONOLOGY MEDICATIONS: Current Facility-Administered Medications Medication Dose Route Frequency Provider Last Rate Last Admin hydrALAZINE (APRESOLINE) injection 10 mg 10 mg IntraVENous Q4H PRN DESTINY Philip CNP labetalol (NORMODYNE;TRANDATE) injection 10 mg 10 mg IntraVENous Q4H PRN DESTINY Philip CNP nicotine (NICODERM CQ) 21 MG/24HR 1 patch 1 patch TransDERmal Daily DESTINY Swenson CNP 1 patch at 01/01/22 0505 PHENobarbital (LUMINAL) tablet 16.2 mg 16.2 mg Oral Nightly DESTINY Philip CNP folic acid (FOLVITE) tablet 1 mg 1 mg Oral Daily DESTINY Philip CNP thiamine mononitrate tablet 100 mg 100 mg Oral Daily DESTINY Philip CNP QUEtiapine (SEROQUEL) tablet 50 mg 50 mg Oral Nightly Scott Durant MD 50 mg at 01/02/222 potassium chloride (KLOR-CON) packet 40 mEq 40 mEq Oral BID DESTINY Philip CNP 40 mEq at 01/01/222008 [Held by provider] bisacodyl (DULCOLAX) suppository 10 mg 10 mg Rectal Daily PRN DESTINY Philip CNP morphine sulfate (PF) injection 2 mg 2 mg IntraVENous Q4H PRN DESTINY Philip CNP 2 mg at 01/01/222047 Or morphine sulfate (PF) injection 4 mg 4 mg IntraVENous Q4H PRN DESTINY Philip CNP Glucose (TRUEPLUS) oral gel 15 g 15 g Oral PRN DESTINY Philip CNP dextrose 50 % IV solution 12.5 g IntraVENous PRN DESTINY Philip CNP 12.5 g at 12/30/21 1351 glucagon (rDNA) injection 1 mg 1 mg IntraMUSCular PRN DESTINY Philip CNP dextrose 5 % solution 100 mL/hr IntraVENous PRN DESTINY Philip CNP [Held by provider] polyethylene glycol (GLYCOLAX) packet 17 g 17 g Oral Daily DESTINY Philip CNP 17 g at 12/30/21 1230 levothyroxine (SYNTHROID) tablet 50 mcg 50 mcg Oral Daily DESTINY Philip CNP 50 mcg at 01/01/22 1031 melatonin SL liquid 0.3 mg 0.3 mg SubLINGual Nightly PRN DESTINY Philip CNP 0.3 mg at 12/31/212017 sodium chloride (Inhalant) 3 % nebulizer solution 4 mL 4 mL Nebulization TID DESTINY Philip 4 mL at 12/31/212223 ipratropium-albuterol (DUONEB) nebulizer solution 1 ampule 1 ampule Inhalation Q4H GNIGER Araujo MD 1 ampule at 01/01/222044 piperacillin-tazobactam (ZOSYN) 4500 mg in dextrose 100 mL IVPB extended infusion (premix) 4,500 mgIntraVENous Q6H Yariel Beasley MD 33.3 mL/hr at 01/02/22 0538 4,500 mg at 01/02/22 0538 sodium chloride flush 0.9 % injection 5-40 mL 5-40 mL IntraCATHeter Q8H Wale Christie MD 10 mL at 12/31/21 0251 sodium chloride flush 0.9 % injection 5-40 mL 5-40 mL IntraCATHeter PRN Wale Christie MD sodium chloride flush 0.9 % injection 5-40 mL 5-40 mL IntraVENous 2 times per day Monika Araujo MD 10 mL at 01/01/222010 sodium chloride flush 0.9 % injection 5-40 mL 5-40 mL IntraVENous PRN Monika Araujo MD 0.9 % sodium chloride infusion IntraVENous PRN Monika Araujo MD acetaminophen (TYLENOL) tablet 1,000 mg 1,000 mg Oral 3 times per day Monika Araujo MD 1,000 mg at 01/02/222 oxyCODONE (ROXICODONE) immediate release tablet 5 mg 5 mg Oral Q4H PRN Monika Araujo MD 5 mg at 01/01/22 1822 Or oxyCODONE (ROXICODONE) immediate release tablet 10 mg 10 mg Oral Q4H PRN Monika Araujo MD lidocaine 4 % external patch 1 patch 1 patch TransDERmal Daily Monika Araujo MD 1 patch at 01/01/22 0839 [Held by provider] sennosides-docusate sodium (SENOKOT-S) 8.6-50 MG tablet 1 tablet 1 tablet Oral BID Monika Araujo MD 1 tablet at 12/30/21 2137 [Held by provider] bisacodyl (DULCOLAX) EC tablet 5 mg 5 mg Oral Daily Monika Araujo MD 5 mg at 12/30/21 0827 ondansetron (ZOFRAN) injection 4 mg 4 mg IntraVENous Q6H PRN Monika Araujo MD enoxaparin (LOVENOX) injection 40 mg 40 mg SubCUTAneous Daily Monika Araujo MD 40 mg at 12/31/21 1815 [Held by provider] LORazepam (ATIVAN) tablet 1 mg 1 mg Oral Q1H PRN Monika Araujo MD 1 mg at 12/28/21 1550 Or [Held by provider] LORazepam (ATIVAN) injection 1 mg 1 mg IntraVENous Q1H PRN Monika Araujo MD 1 mg at 12/29/21 0012 Or [Held by provider] LORazepam (ATIVAN) tablet 2 mg 2 mg Oral Q1H PRN Monika Araujo MD Or [Held by provider] LORazepam (ATIVAN) injection 2 mg 2 mg IntraVENous Q1H PRN Monika Araujo MD Or [Held by provider] LORazepam (ATIVAN) tablet 3 mg 3 mg Oral Q1H PRN Monika Araujo MD Or [Held by provider] LORazepam (ATIVAN) injection 3 mg 3 mg IntraVENous Q1H PRSunshine Araujo MD 3 mg at 12/29/21 0120 Or [Held by provider] LORazepam (ATIVAN) tablet 4 mg 4 mg Oral Q1H PRN Monika Aarujo MD Or [Held by provider] LORazepam (ATIVAN) injection 4 mg 4 mg IntraVENous Q1H PRN Monika Araujo MD ARE THERE PERTINENT UPDATES TO PAST,FAMILY, OR SOCIAL HISTORY?: No Subjective: NAEON. Disoriented, in restaints this am. Review of Systems Constitutional: Positive for activity change and appetite change. HENT: Negative for trouble swallowing. Respiratory: Positive for cough and shortness of breath. Cardiovascular: Negative for chest pain. Palpitations: intermittent. Gastrointestinal: Negative for abdominal distention, abdominal pain, constipation, diarrhea, nauseaand vomiting. Genitourinary: Positive for difficulty urinating. Musculoskeletal: Positive for gait problem (genralized weakness). Negative for arthralgias, back pain, myalgias and neck pain. Skin: Negative for wound. Neurological: Negative for dizziness, light-headedness and headaches. Psychiatric/Behavioral: Positive for confusion. Negative for agitation and behavioral problems. PHQ In the last 2 weeks have you had: Little interest or pleasure in doing things No Been feeling down, depressed, or hopeless No If greater then 0, place CLP consult Date PHQ completed: 12/30/21 Objective: Patient Vitals for the past 24 hrs: BP Temp Temp src Pulse Resp SpO2 Height Weight 01/02/22 0600 (!) 143/70 -- -- 88 21 96 % -- -- 01/02/22 0500 (!) 144/72 -- -- 75 16 97 % -- -- 01/02/22 0400 127/69 97.1 F (36.2 C) Temporal 78 20 98 % -- 111 lb 5.3 oz (50.5 kg) 01/02/22 0300 120/72 -- -- 83 20 100 % -- -- 01/02/22 0200 (!) 175/94 -- -- 99 28 99 % -- -- 01/02/22 0100 (!) 174/96 -- -- 88 25 97 % -- -- 01/02/22 0000 (!) 163/109 97.8 F (36.6 C) Temporal 95 25 96 % -- -- 01/01/22 2300 120/64 -- -- 78 23 -- -- -- 01/01/22 2200 117/62 -- -- 73 19 99 % -- -- 01/01/22 2100 -- -- -- 80 20 97 % -- -- 01/01/222044 -- -- -- 80 27 96 % -- -- 01/01/22 2000 104/78 97.7 F (36.5 C) Temporal 95 19 95 % -- -- 01/01/22 1900 121/72 -- -- 92 (!) 32 96 % -- -- 01/01/22 1852 -- -- -- -- 20 -- -- -- 01/01/22 1822 -- -- -- -- 20 -- -- -- 01/01/22 1800 126/63 -- -- 93 30 93 % -- -- 01/01/22 1700 105/68 -- -- (!) 101 (!) 35 92 % -- -- 01/01/22 1629 -- 98.7 F (37.1 C) Temporal 93 20 95 % -- -- 01/01/22 1600 139/82 -- -- 94 29 96 % -- -- 01/01/22 1500 (!) 153/86 -- -- 94 20 93 % -- -- 01/01/22 1439 (!) 160/80 -- -- 90 29 94 % -- -- 01/01/22 1300 (!) 146/73 -- -- 86 (!) 32 97 % -- -- 01/01/22 1220 -- 97.4 F (36.3 C) Temporal 83 (!) 31 95 % -- -- 01/01/22 1200 (!) 168/96 -- -- 85 20 95 % -- -- 01/01/22 1110 -- -- -- -- 15 -- -- -- 01/01/22 1100 (!) 161/74 -- -- 88 27 100 % -- -- 01/01/22 1002 (!) 141/86 -- -- 82 -- 97 % -- -- 01/01/22 1000 (!) 141/86 -- -- -- -- -- -- -- 01/01/22 0955 (!) 153/85 -- -- 85 -- 99 % -- -- 01/01/22 0955 (!) 153/85 -- -- 85 -- 99 % -- -- 01/01/22 0826 -- -- -- 83 21 98 % -- -- 01/01/22 0824 -- -- -- -- -- -- 5' (1.524 m) -- 01/01/22 0806 -- -- -- 83 (!) 36 97 % -- -- 01/01/22 0800 (!) 174/79 98.1 F (36.7 C) Temporal 82 (!) 34 96 % -- -- Date 01/02/22 0000 - 01/02/229 Shift 3030-2972 3558-5734 0541-5352 24 Hour Total INTAKE P.O.(mL/kg/hr) 250 250 I.V.(mL/kg) 226.6(4.5) 226.6(4.5) Shift Total(mL/kg) 476.6(9.4) 476.6(9.4) OUTPUT Urine(mL/kg/hr) 900 900 Shift Total(mL/kg) 900(17.8) 900(17.8) Weight (kg) 50.5 50.5 50.5 50.5 Last BM: 01/01 Diet: Soft/Easy chew with thin liquids (per speech) CVP: Yes Where: Right IJ Chest Tubes: none PHYSICAL: Physical Exam Vitals and nursing note reviewed. Constitutional: General: She is not in acute distress. Appearance: She is ill-appearing. She is not toxic-appearing. HENT: Head: Normocephalic and atraumatic. Right Ear: External ear normal. Left Ear: External ear normal. Nose: Nose normal. Mouth/Throat: Mouth: Mucous membranes are dry. Eyes: Extraocular Movements: Extraocular movements intact. Conjunctiva/sclera: Conjunctivae normal. Pupils: Pupils are equal, round, and reactive to light. Cardiovascular: Rate and Rhythm: Normal rate. Pulses: Normal pulses. Pulmonary: Effort: Pulmonary effort is normal. No respiratory distress. Breath sounds: Rhonchi present. Comments: R CT in place to water seal 500cc sita output overnight, no leak Abdominal: General: Bowel sounds are normal. There is no distension. Palpations: Abdomen is soft. There is no mass. Tenderness: There is abdominal tenderness. There is no guarding or rebound. Hernia: No hernia is present. Genitourinary: Comments: [place] to [place] Musculoskeletal: General: No tenderness or signs of injury. Normal range of motion. Cervical back: Normal range of motion and neck supple. No tenderness. Comments: Generalized weakness Skin: General: Skin is warm and dry. Capillary Refill: Capillary refill takes 2 to 3 seconds. Neurological: Mental Status: She is alert. Comments: Disoriented this am Psychiatric: Mood and Affect: Mood normal. Comments: History of etoh withdraw Sutures or nicolas? No O2: High Flow, wean to goal 92% Data Review Data CBC with Differential: Lab Results Component Value Date/Time WBC 7.7 01/02/2022 03:18 AM RBC 2.96 01/02/2022 03:18 AM HGB 10.4 01/02/2022 03:18 AM HCT 31.4 01/02/2022 03:18 AM PLT 268 01/02/2022 03:18 AM CMP: Lab Results Component Value Date/Time NA 138 01/02/2022 05:54 AM K 3.6 01/02/2022 05:54 AM CL 110 01/02/2022 05:54 AM CO2 26 01/02/2022 05:54 AM BUN 5 01/02/2022 05:54 AM CREATININE 0.54 01/02/2022 05:54 AM GLUCOSE 80 01/02/2022 05:54 AM PROT 5.3 01/01/2022 12:41 AM LABALBU 2.5 01/01/2022 12:41 AM CALCIUM 7.9 01/02/2022 05:54 AM BILITOT 1.0 01/01/2022 12:41 AM ALKPHOS 56 01/01/2022 12:41 AM AST 35 01/01/2022 12:41 AM ALT 12 01/01/2022 12:41 AM BMP: Hepatic Function Panel:Ionized Calcium: No results found for: IONCA Magnesium: Lab Results Component Value Date/Time MG 1.9 12/31/2021 02:58 AM Phosphorus: Lab Results Component Value Date/Time PHOS 3.6 12/30/2021 07:31 AM PT/INR: Lab Results Component Value Date/Time PROTIME 10.4 12/27/2021 11:49 AM INR 1.0 12/27/2021 11:49 AM PTT: No results found for: APTT[APTT Last 3 Troponin: Lab Results Component Value Date/Time TROPONINI 0.124 12/30/2021 12:29 AM TROPONINI 0.156 12/29/2021 06:34 PM TROPONINI 0.162 12/29/2021 10:18 AM Urine Culture: No components found for: CURINE Blood Culture: No components found for: CBLOOD, CFUNGUSBL Blood Culture from Central Line: No components found for: CBLOODLN Stool Culture: No components found for: CSTOOL Sputum Culture: No components found for: CSPUTUM Sputum Culture for AFB: No components found for: CAFBSM Wound Culture: n/a Radiology: XR ABDOMEN (KUB) (SINGLE AP VIEW) Result Date: 12/30/2021 Patient Name: JAIMIE MCGOVERN Diagnostic Radiology ACCESSION EXAM DATE/TIME PROCEDURE ORDERING PROVIDER [id number] 12/30/2021 07:53 EDT CR Abdomen AP [id number] -IS[place]EL [place] CPT code 25303 Reason For Exam (CR Abdomen AP) assess for cecal pneumatosis Report Examination: Abdomen: AP view. Comparison: 12/29/2021. Reason For Study: Assess for cecal pneumatosis. Findings/Interpretations: 1. Limited view of the right lower quadrant shows curvilinear lucenciescephalad to the right greater trochanter which may represent pneumatosis coli. Clarification with CT of the abdomen would be more beneficial. 2. Small amount residual colorectal contrast and solid content. 3. Tubular lucencies overlying the abdomen suggest distal small bowel obstruction. Further evaluation with CT scan of the abdomen and pelvis would be of value. Report Dictated on --- Final --- Dictated: 12/30/2021 11:07 am Dictating Physician: MD MAHAJAN B NELSON Signed Date and Time: 12/30/2021 11:24 am Signed by: MD MAHAJAN B NELSON Transcribed Date and Time: 12/30/2021 11:07 XR ABDOMEN (KUB) (SINGLE AP VIEW) Result Date: 12/29/2021 Patient Name: JAIMIE MCGOVERN Diagnostic Radiology ACCESSION EXAM DATE/TIME PROCEDURE ORDERING PROVIDER [id number] 12/29/2021 10:58 EDT CR Abdomen AP [id number] -BLAYNE ZELAYA CPT code 03261 Reason For Exam (CR Abdomen AP) distention, increase WOB Report CLINICAL INFORMATION: Abdominal pain. Distention. Supine KUB is provided. FINDINGS: Air, stool, and previously administered oral contrast are seen in nondistended loops of: to the level of the rectum. The small bowel is not dilated. IMPRESSION: 1. Nonobstructive bowel gas pattern. Report Dictated on --- Final --- Dictated: 12/29/2021 11:13 am Dictating Physician: MD LOYOLA JEFFREY Signed Date and Time: 12/29/2021 11:14 am Signed by: MD LOYOLA JEFFREY Transcribed Date and Time: 12/29/2021 11:13 CT CHEST W CONTRAST Result Date: 12/27/2021 Patient Name: JAIMIE MCGOVERN [facility]#: [id number] Computed Tomography ACCESSION EXAM DATE/TIME PROCEDURE ORDERING PROVIDER [id number] 12/27/2021 14:[address] Thorax w/ Contrast [id number] MONIKA AYOUB CPT code 58133 Q9967 Reason For Exam (CT Thorax w/ Contrast) CT esophogram for possible esophageal perforation Report EXAMINATION: CT of the chest with oral contrast (CT esophagram). EXAM DATE & TIME: 12/27/2021 2:58 PM EDT INDICATION: CT esophogram for possible esophageal perforation ADDITIONAL INFORMATION: 76-year-old female with suspected perforated esophagus presents for CT esophagram COMPARISON: None LIMITATIONS: None TECHNIQUE: [address] images were obtained of the chest during dynamic injection of oral contrast. Images were reformatted in coronal and sagittal projections using the raw CT data and were interpreted in conjunction with the axial imagesto render the findings listed below. Before infusion of intravenous contrast, radiology personnel in vestigated the possibility of an allergic history and any history of reaction to iodinated contrastmaterial. FINDINGS: Cardiovascular: Atherosclerotic vascular calcifications are present. Mediastinum/pericardium: A moderate amount of pneumomediastinum is present, tracking from the level of the thyroid gland, down to the gastroesophageal junction. No evidence of contrast extravasation into the mediastinum to suggest the presence of an esophageal injury. Thyroid: Unremarkable. Tracheobronchial tree: Some debris is present in the trachea and proximal mainstem bronchi. A large amount of debris is present in the bilateral lower lobe bronchioles, suspicious for aspiration. Pleura: There are large right and small left pleural effusions with associated atelectatic change. No evidence of pneumothorax. Computed Tomography Report Lungs: There is bibasilar scarring/atelectasis and partial collapseof the bilateral lower lobes. There is also mild patchy consolidation near the dependent aspects ofthe lung bases. Nodules: No nodules are present that require follow up. Lymph nodes: No emerging adenopathy. Included images of the upper abdomen: There is colonic interposition. Nodular hepatic margin is suggestive of cirrhotic liver morphology. There is moderate bilateral adrenal nodularity, leftgreater than right. Visualized musculoskeletal structures: No acute osseous abnormality is demonstrated. Mild multilevel spondylosis is present. IMPRESSION: 1. No contrast extravasation to suggest the presence of an esophageal injury. 2. Fairly extensive pneumomediastinum, spanning the level of thethyroid gland of the gastroesophageal junction. 3. Large right and small left pleural effusions with associated atelectatic change. 4. Debris in the trachea, mainstem bronchi and bilateral lower lobebronchioles, suspicious for aspiration. Clinical correlation recommended. 5. Hepatic cirrhosis. 6. Additional chronic findings as above. Report Dictated on --- Final --- Dictated: 12/27/2021 3:37 pm Dictating Physician: MD ARENAS CHRISTOPHER Signed Date and Time:12/27/2021 3:46 pm Signed by: MD ARENAS CHRISTOPHER Transcribed Date and Time: 12/27/2021 3:37 XR CHEST PORTABLE Result Date: 12/30/2021 Patient Name: JAIMIE MCGOVERN Diagnostic Radiology ACCESSION EXAM DATE/TIME PROCEDURE ORDERING PROVIDER [id number] 12/30/2021 06:05 EDT CR Chest Portable MD MACIEL ANDREW CPT code 07814 Reason For Exam (CR Chest Portable) patient with desaturation and tacypnea Report Indication: 76-year-old; inpatient; desaturation and tachypnea. Views: Chest portable Comparison: 12/29/2021 at 5:34 AM Findings: Right internal jugular approach central venous catheter is present with tip overlying the right atria. Cardiac monitoring wires and leads are present. The patient is rotated. The cardiomediastinal silhouette is enlarged. The osseous structures appear stable. A layering right pleural effusion is present which appears decreased compared to prior day. Smallleft pleural effusion. There is thickening of the interstitium.. IMPRESSION: Interval decrease in size of a RIGHT pleural effusion. Bilateral pleural effusions, right greater than left. Pulmonary vasc ular congestion.. Report Dictated on --- Final --- Dictated: 12/30/2021 7:09 am Dictating Physician: MD CARLIN JENNIFER R Signed Date and Time: 12/30/2021 7:12 am Signed by: MD CARLNI JENNIFER R Transcribed Date and Time: 12/30/2021 7:09 XR CHEST PORTABLE Result Date: 12/29/2021 Patient Name: JAIMIE MCGOVERN Diagnostic Radiology ACCESSION EXAM DATE/TIME PROCEDURE ORDERING PROVIDER [id number] 12/29/2021 05:47 EDT CR Chest Portable MONIKA PERES CPT code 97239 Reason For Exam (CR Chest Portable) pneumomediastinum ReportCLINICAL INFORMATION: Respiratory abnormality. History of pneumomediastinum. CHEST X- RAY, PORTABLE,0534 hours: An AP portable view is compared to the prior examination of earlier the same day at 0044 hours. There is no change in the position of the right internal jugular central venous catheter. Amoderate right pleural effusion appears to be slightly increased but differences may be positional.There is mild to moderate pulmonary vascular congestion. No pneumomediastinum is visualized. No other changes. Report Dictated on --- Final --- Dictated: 12/29/2021 8:11 am Dictating Physician: MD MCKENNA HARLAN Signed Date and Time: 12/29/2021 8:20 am Signed by: MD MCKENNA HARLAN Transcribed Date and Time: 12/29/2021 8:11 XR CHEST PORTABLE Result Date: 12/29/2021 Patient Name: JAIMIE MCGOVERN Diagnostic Radiology ACCESSION EXAM DATE/TIME PROCEDURE ORDERING PROVIDER [id number] 12/29/2021 00:49 EDT CR Chest Portable MD MACIEL ANDREW CPT code 90931 Reason For Exam (CR Chest Portable) patient with desaturation and tacypnea Report Chest one view HISTORY: Desaturation Right IJ central line. Moderate right pleural effusion. Adjacent right lower lung infiltrate. Cardiomegaly. Report Dictated on --- Final --- Dictated: 12/29/2021 0:47 am Dictating Physician: MD LIAO MALAY Signed Date and Time: 12/29/2021 0:47 am Signed by: MD LIAO MALAY Transcribed Date and Time: 12/29/2021 0:47 XR CHEST PORTABLE Result Date: 12/28/2021 Patient Name: JAIMIE MCGOVERN Diagnostic Radiology ACCESSION EXAM DATE/TIME PROCEDURE ORDERING PROVIDER [id number] 12/28/2021 12:22 EDT CR Chest Portable MD GONZALEZ DAVID CPT code 05644 Reason For Exam (CR Chest Portable) s/p R IJ CVC placement Report PORTABLE CHEST (Frontal View) History: Catheter placement Comparison: 12/28/2021, 0556 hours Findings: Frontal portable chest view shows the tip of newly inserted right IJ catheter overlies the right atrium/SVC junction. There is large right and small left pleural effusion. There are also right and smaller left basilar atelectasis/infiltrate. The lungs appear less congested compared to last exam. Theheart is borderline in size. There is no mediastinal widening, pneumothorax, or other significant interval change. Report Dictated on --- Final --- Dictated: 21:35 pm Dictating Physician: MD SALAZAR AHMAD Signed Date and Time: 12/28/2021 1:38 pm Signed by: MITCH ARAUZ MD, AHMAD Transcribed Date and Time: 12/28/2021 1:35 XR CHEST PORTABLE Result Date: 12/28/2021 Patient Name: JAIMIE MCGOVERN Diagnostic Radiology ACCESSION EXAM DATE/TIME PROCEDURE ORDERING PROVIDER [id number] 12/28/2021 05:56 EDT CR Chest Portable [id number] MONIKA AYOUB CPT code 09513 Reason For Exam (CR Chest Portable) pneumomediastinum ReportPORTABLE CHEST (Frontal View) History: Respiratory abnormality, pneumomediastinum, follow-up Comparison: 12/27/[address] Findings: Frontal portable chest view shows haziness throughout the right lung and to a lesser degree left lung base suggesting bilateral infiltrate/edema with moderate right and a small left pleural effusions. The heart is borderline in size. Compared to the chest CT of 12/27/2021, previously described pneumomediastinum could not be appreciated on the current radiographs (CTmore sensitive). Continued evaluation and follow-up recommended. Report Dictated on --- Final --- Dictated: 12/28/2021 8:18 am Dictating Physician: MD SALAZAR AHMAD Signed Date and Time: 12/28/2021 8:28 am Signed by: MD SALAZAR AHMAD Transcribed Date and Time: 12/28/2021 8:18 US GUIDE THORACENTESIS Result Date: 12/30/2021 Patient Name: JAIMIE MCGOVERN Ultrasound ACCESSION EXAM DATE/TIME PROCEDURE ORDERING PROVIDER [id number] 12/29/2021 16:07 EDT US Thora-Aspir Pleura w/ [id number] -[place], Image MONIKA CPT code 56914 Reason For Exam (US Thora-Aspir Pleura w/ Image) Thoracentesis Right pleural effusion. Report PROCEDURE: Ultrasound-guided thoracentesis Procedural PersonnelAttending physician(s): Quinn Pastor MD Advanced practice provider(s): Nicola Rob PA-C Indication: Pleural effusion Additional clinical history: None Complications: No immediate complications. IMPRESSION: Successful ultrasound-guided right thoracentesis with drainage of 500 milliliters of cloudy sita-colored serous fluid. Attending physician was present for the entirety of the procedure. PROCEDURE SUMMARY: - Limited thoracic ultrasound - Ultrasound-guided thoracentesis - Additional procedure(s): None PROCEDURE DETAILS: Pre-procedure Consent: Informed consent for the procedure including risks, benefits and alternatives was obtained and time-out was performed prior to the procedure. Preparation: The site was prepared and draped using maximal sterile barrier technique including cutaneous antisepsis. Anesthesia/sedation None Limited thoracic ultrasound Limited thoracic ultrasound was performed using a curved transducer. A safe window for thoracentesis was identified. Moderate to large pleural effusion was seen on the sideof aspiration. The contralateral side was not investigated. Ultrasound Report Thoracentesis Local anesthesia was administered. Ultrasound was used to pick a safe access site. A permanent image was stored. The pleural space was accessed and fluid return confirmed position. The fluid was drained. Catheter placed: 5F Yueh Closure The catheter was removed. A sterile bandage was applied. Post-drainagehemithorax findings: Minimal effusion Additional Details Additional description of procedure: None E quipment details: None Specimens removed: Pleural fluid Estimated blood loss (mL): Less than 10 Report Dictated on --- Final --- Dictated: 12/29/2021 4:13 pm DictatingPhysician: MD PASTOR KEVIN Signed Date and Time: 12/30/2021 8:18 am Signed by: MD PASTOR KEVIN Transcribed Date and Time: 12/29/2021 4:14 Patient Active Problem List Diagnosis Pneumatosis of intestines Declining functional status At risk for delirium Alcohol abuse Acute respiratory insufficiency Shortness of breath Pleural effusion on right Palliative care encounter Demand ischemia of myocardium (HCC) Pneumomediastinum (HCC) Elevated troponin Severe malnutrition (HCC) Alcoholic cirrhosis (HCC) Hypoxia Acute encephalopathy Cognitive deficits Constipation, slow transit Debility ASSESSMENT: 76 yo F who presents with cecal pneumatosis and pneumomediastinum with low concern for esophageal source PLAN: Neuro/Spine: - alcohol withdraw symptoms resolving - transition to nightly Phenobarb -Last day phenobarb 01/02 -qHS seroquel for delerium - scheduled Tylenol, Morphine IV prn, Oxy prn - Lido patch for right chest - often refuses - CIWA scoring protocol for withdrawal (2-3 boxes of wine weekly) - folic acid and thiamine - palliative consult, following for goals of care -?hospice eval, family agreeable - geriatrics consult - Melatonin nightly HEENT: - no acute issues Cardiovascular: - MAP goal >65, no issues at this time - prn antihypertensives for SBP>160 - Hydralazine and Labetalol prn - 12/29 EKG: NSR 116, Qtc 461 - trop 0.124 from 0.162, stop trending (complaint of central CP upon admission) - Consult Cardiology -elevated troponin likely due to ischemic demand from acute illness Pulmonary: - R pleural effusion - exudative and sterile - goal O2 92% given COPD - 01/01 High Flow oxygen this am, wean - acapella, IS - duonebs q4h, 3% nebs TID - covid negative - 01/01 Thoracentesis with right pigtail to water seal (440cc) - 01/01 Thoracentesis culture pending - Consult Pulmonology: -volume overload-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 -Scattered bilateral patchy infiltrates R>L - will continue to monitor clinically and follow fluid cultures- continue drainage today -COPD presumed- follow up outpatient with Pulmonology for PFT and inhaler therapy - 01/01 Lasix 20mg IV once, start aldactone per pulm recs -On floor transfer will defer CT management to Pulm team -Outpatient COPD PFT testing if pt willing FEN/GI: - 01/01 Speech eval: Soft/easy chew diet -Ensure shakes - CVC removed, PIV in place -SLIV - Having loose bowel function, monitor - Zofran prn - Protonix IV daily - Serial abdominal exams, no further imaging - General Surgery consult: -Ok to sign off, will transfer to medicine -Med Team A Dr Dhaliwal accepted : - Urinary retention, bladder scan for 400cc 12/28 - Costa 12/29, goal DC to [facility] today - urine antigens negative - Strict I&Os Heme: - Hgb: stable no concerns ID: - empiric Zosyn with cecal pneumatosis - thoracentesis 12/29 given productive cough and chest pain - Thoracentesis fluid culture, gram stain with no organisms seen - MRSA nasal swab pending -DC Zosyn from cecal pneumatosis standpoint, unclear source of Procal >20 -ID consult - Blood cultures, no growth to date (second culture likely contamination) -Consider urine studies Endo: - hx hypothyroidism - TSH, WNL - Home Synthroid 50mcg daily - hypoglycemia protocol Lines/Devices: - Right IJ central line - goal remove 01/02, establish PIV - Costa- remove today Prophylaxis: DVT: Lovenox Has DVT PPX been started? Yes If no, why? started GI: discontinue Protonix Pressure Ulcer: turns per nursing, patient ambulatory Musculoskeletal: - no acute issues - PT/OT recs SNF WB Status: RUE:AT LUE: AT RLE: AT LLE: AT Medications Reconciled- Yes [x] NO [], why Disposition: H6 telemetry continious pulse ox transfer. SNF placement. Medicine accepted Blayne Zelaya MD PGY3, General Surgery Pager #[phone] Associated attestation - Erendira Maciel MD - 01/03/2022 8:39 PM EDT ~~~~~~~~~~~~~~~~~~~~~~~~~~~~~~~~~~~~~~~~~~~~~~~~~~~~~~~~~~~~~ ATTENDING ADDEND Hospital Problems Last Modified POA * (Principal) Pneumomediastinum (HCC) 12/29/2021 Yes Demand ischemia of myocardium (HCC) 12/29/2021 Yes Pneumatosis of intestines 12/27/2021 Yes Declining functional status 01/01/2022 Yes At risk for delirium 12/28/2021 Yes Alcohol abuse 12/28/2021 Yes Acute respiratory insufficiency 12/29/2021 Yes Shortness of breath 12/29/2021 Yes Pleural effusion on right 01/01/2022 Yes Palliative care encounter 12/29/2021 Yes Elevated troponin 12/30/2021 Yes Severe malnutrition (HCC) (Chronic) 01/01/2022 Yes Alcoholic cirrhosis (HCC) 01/01/2022 Yes Hypoxia 01/01/2022 Yes Acute encephalopathy 01/01/2022 Yes Cognitive deficits 01/01/2022 Yes Constipation, slow transit 01/01/2022 Yes Debility 01/01/2022 Yes I independently saw the above patient and reviewed the recent events, imaging, labs, vital signs; Iperformed a physical exam and ROS on the same date of service as above. My findings agree with the above note except for any details corrected below. A complete review of systems was obtained and is negative except as stated in HPI. 76 yo F who presents with cecal pneumatosis and pneumomediastinum Improved respiratory status Discussed plan detailed below with son at bedside Neurological system - Acute encephalopathy likely metabolic --> ETOH withdrawal --> phenobarb nightly --> likely dc in tomorrow - appreciate pall recs - Multimodal pain control - Delirium precautions, melatonin nightly Circulatory system - elevated trop - resolved - appreciate cards consult --> monitor, demand - SBP < 180 - pneumomediastinum improved Respiratory system - repeat Thoracentesis right for large effusion - CT placed -> CT to water seal --> DC tomorrow - follow up cultures - neg - acute respiratory insufficiency - 92% - Aggressive pulmonary hygiene - pulm consult - suspect underlying lung disease --> COPD, appreciate recs --> lasix + aldactone --> maintenance inhalers Gastrointestinal system - 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 - easy chew - LFTs wnl - history of etoh - Pneumatosis --> resolved on CT - +BM - Bowel regimen - CTS --> no injury to esophagus --> pneumomediastinum likely COPD Renal function - urinary retention --> DC costa - lactic acidosis - resolved - D5 1/2NS 50 --> DC Immunologic system - Monitor for fevers - zosyn x 7 days - Increasing procal --> ID consult Hematologic system - Monitor hemoglobin Endocrine system - Monitor glucose - hypoglycemic protocol - history of hypothyroid --> TSH wnl --> restart synthroid 50 mcg Integumentary system (GI and cutaneous) - Skin checks Musculoskeletal system - PTOT Ppx - Lovenox Greater than 51% of the >= 35 minute total care time throughout the day (including chart review,care coordination, and [id number] encounter) was spent discussing/counseling the patient/family regarding the care plan for Jaimie Mcgovern. Specifically, time spent coordinating care for acute encephalopathy. I examined independently and reviewed relevant data myself and may have done soin the context of team rounds. A full chart review was performed. I attest that this medical recordentry accurately reflects signatures/notations that I made in my capacity as M.D. when I treated/diagnosed Jaimie Mcgovern on the date of service above. I attest that this information is true, accurate, and complete to the best of my knowledge and I understand that any falsification, omission, or concealment of material fact may subject me to administrative, civil, or criminal liability. Erendira Maciel MD Division of Trauma Department of Surgery [facility] Pager: [phone] ~~~~~~~~~~~~~~~~~~~~~~~~~~~~~~~~~~~~~~~~~~~~~~~~~~~~~~~~~~~~~ This note may have been dictated using [employer] Medical Practice Edition 2.6 and/or [employer] Voice Recognition Feature. The document was proofread; however, unrecognized voice recognition flight dispatcher errors may be present. * Cailin Mcdonald APRN - BISQUE FINISHER - 01/01/2022 4:34 PM EDT Images from the original note were not included. [facility] Geriatric Medicine Inpatient Consult Service Admission Date: 12/27/2021 Assessment Principal Problem: Pneumomediastinum (HCC) Active Problems: Demand ischemia of myocardium (HCC) Pneumatosis of intestines Debility At risk for delirium Alcohol abuse Acute respiratory insufficiency Shortness of breath Recurrent pleural effusion Palliative care encounter Elevated troponin Severe malnutrition (HCC) Alcoholic cirrhosis (HCC) Hypoxia Resolved Problems: * No resolved hospital problems. * Plan Acute Encephalopathy --Improving --Etiology likely medications, alcohol withdrawal, hypoxia --Encourage PO intake, time up in chair, family visits, supervised ambulation, and sleep hygiene --If agitated, assess for and consider treating for pain --QTc= 461 --No antipsychotic unless patient is danger to self/others/treatment --Continue PRN melatonin at HS --Monitor for constipation/urinary retention - last BM 12/31 --Possible medication contributions: phenobarb - now off Cognitive deficits --+history of cognitive decline at home. + history of decline in IADL's --TSH WNL, B12 WNL --Head imaging - none available --History concerning for baseline dementia, due to alcohol use + vascular risk factors --Recommend outpatient follow up at [facility] formore in depth cognitive evaluation when in usual state of health. Alcohol Abuse --Now off phenobarb. --Pt aware of recommendation to stop drinking, "not gonna happen" Constipation --Improved --Patient has two scheduled stimulant laxatives ordered: bisacodyl and senna- docusate. Recommend discontinuing scheduled bisacodyl, now on hold Declining functional status --Related to acute medical isuses, deconditioning --Continue PT/OT as able while inpatient --Anticipate d/c to SNF for ongoing daily PT/OT Discussed with [id number], Soha, at bedside Follow-up: will plan to follow up Tuesday, for acute geriatric issues over the weekend, please page Dr. Mendez Subjective Chief Complaint: abd/chest pain, shortness of breath Geriatrics consulted for frailty, lives independently, heavy ETOH/Tobacco use HPI- The patient is new to me but seen by the Geriatric Inpatient Consult team. 76 y.o. year-old female admitted to acute care from home for abd/chest pain, sob. Diagnosed with cecal pneumatosis/ pneumomediastinum. Per family report, history of short-term memory loss at home prior to hospitalization. Also has history of delirium with UTI. Long-standing alcohol and tobacco use. Interval History: Remains on ICU. T223 More lucid this morning per surgery team. Didn't get acetaminopen today due to NPO status for chesttube placement. Phenobarb stopped today. LastAtivan per CIWA was 12/29. Used PRN oxycodone x 1 in thepast 48 hrs. Worked with 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 this afternoon, cleared for easy to chew diet with thin liquids. Trialing off HFNC. Pt reports some pain in chest at tube site. Knows she had a procedure today due to fluid build up in her chest. Knows she has problems with her liver from drinking and problems with her lungs and feet from smoking. Knows she should stop drinking/smoking but says "not gonna happen", knows she doesn't have a long time left to live. Tells me she's been thinking about going back to the SNF where she was previously at discharge. At times aware she's in the hospital, other times tells me she lives here and asks me if I live here too. MOON Soha at bedside, reports family has noticed short term memory decline at home for a while. History of significant delirium in the past. Seen by PT, min assist, ambulated 5 steps to the left, recommending SNF Review of Systems Respiratory: Positive for cough and shortness of breath. Gastrointestinal: Negative for abdominal pain and constipation. Psychiatric/Behavioral: Positive for confusion. Negative for agitation and hallucinations. Objective BP 139/82 Pulse 93 Temp 97.4 F (36.3 C) (Temporal) Resp 20 Ht 5' (1.524 m) Wt 123 lb 9.6 oz (56.1 kg) SpO2 95% BMI 24.14 kg/m Intake/Output Summary (Last 24 hours) at 01/01/2022 1634 Last data filed at 01/01/2022 1200 Gross per 24 hour Intake 1008 ml Output 2590 ml Net -1582 ml Patient Vitals for the past 96 hrs (Last 3 readings): Weight 12/30/21 0400 123 lb 9.6 oz (56.1 kg) Current Facility-Administered Medications: hydrALAZINE (APRESOLINE) injection 10 mg, 10 mg, IntraVENous, Q4H PRN labetalol (NORMODYNE;TRANDATE) injection 10 mg, 10 mg, IntraVENous, Q4H PRN nicotine (NICODERM CQ) 21 MG/24HR 1 patch, 1 patch, TransDERmal, Daily [START ON 01/02/2022] PHENobarbital (LUMINAL) tablet 16.2 mg, 16.2 mg, Oral, Nightly [START ON 01/02/2022] folic acid (FOLVITE) tablet 1 mg, 1 mg, Oral, Daily [START ON 01/02/2022] thiamine mononitrate tablet 100 mg, 100 mg, Oral, Daily potassium chloride (KLOR-CON) packet 40 mEq, 40 mEq, Oral, BID [Held by provider] bisacodyl (DULCOLAX) suppository 10 mg, 10 mg, Rectal, Daily PRN morphine sulfate (PF) injection 2 mg, 2 mg, IntraVENous, Q4H PRN OR morphine sulfate (PF) injection 4 mg, 4 mg, IntraVENous, Q4H PRN Glucose (TRUEPLUS) oral gel 15 g, 15 g, Oral, PRN dextrose 50 % IV solution, 12.5 g, IntraVENous, PRN glucagon (rDNA) injection 1 mg, 1 mg, IntraMUSCular, PRN dextrose 5 % solution, 100 mL/hr, IntraVENous, PRN [Held by provider] polyethylene glycol (GLYCOLAX) packet 17 g, 17 g, Oral, Daily levothyroxine (SYNTHROID) tablet 50 mcg, 50 mcg, Oral, Daily melatonin SL liquid 0.3 mg, 0.3 mg, SubLINGual, Nightly PRN sodium chloride (Inhalant) 3 % nebulizer solution 4 mL, 4 mL, Nebulization, TID ipratropium-albuterol (DUONEB) nebulizer solution 1 ampule, 1 ampule, Inhalation, Q4H WA piperacillin-tazobactam (ZOSYN) 4500 mg in dextrose 100 mL IVPB extended infusion (premix), 4,500 mg, IntraVENous, Q6H sodium chloride flush 0.9 % injection 5-40 mL, 5-40 mL, IntraCATHeter, Q8H sodium chloride flush 0.9 % injection 5-40 mL, 5-40 mL, IntraCATHeter, PRN sodium chloride flush 0.9 % injection 5-40 mL, 5-40 mL, IntraVENous, 2 times per day sodium chloride flush 0.9 % injection 5-40 mL, 5-40 mL, IntraVENous, PRN 0.9 % sodium chloride infusion, , IntraVENous, PRN acetaminophen (TYLENOL) tablet 1,000 mg, 1,000 mg, Oral, 3 times per day oxyCODONE (ROXICODONE) immediate release tablet 5 mg, 5 mg, Oral, Q4H PRN OR oxyCODONE (ROXICODONE) immediate release tablet 10 mg, 10 mg, Oral, Q4H PRN lidocaine 4 % external patch 1 patch, 1 patch, TransDERmal, Daily [Held by provider] sennosides-docusate sodium (SENOKOT-S) 8.6-50 MG tablet 1 tablet, 1 tablet, Oral, BID [Held by provider] bisacodyl (DULCOLAX) EC tablet 5 mg, 5 mg, Oral, Daily ondansetron (ZOFRAN) injection 4 mg, 4 mg, IntraVENous, Q6H PRN enoxaparin (LOVENOX) injection 40 mg, 40 mg, SubCUTAneous, Daily [Held by provider] LORazepam (ATIVAN) tablet 1 mg, 1 mg, Oral, Q1H PRN OR [Held by provider] LORazepam (ATIVAN) injection 1 mg, 1 mg, IntraVENous, Q1H PRN OR [Held by provider] LORazepam (ATIVAN) tablet 2 mg, 2 mg, Oral, Q1H PRN OR [Held by provider] LORazepam (ATIVAN) injection 2 mg, 2mg, IntraVENous, Q1H PRN OR [Held by provider] LORazepam (ATIVAN) tablet 3 mg, 3 mg, Oral, Q1H PRN OR [Held by provider] LORazepam (ATIVAN) injection 3 mg, 3 mg, IntraVENous, Q1H PRN OR [Held by provider] LORazepam (ATIVAN) tablet 4 mg, 4 mg, Oral, Q1H PRN OR [Held by provider] LORazepam (ATIVAN) injection 4 mg, 4 mg, IntraVENous, Q1H PRN Physical Exam Constitutional: No acute distress, thin, frail, disheveled Psych: Mood and affect Bright. Good eye contact. Cardiovascular: Regular rate and rhythm, no murmur, no BLE edema Pulmonary/Chest: Diminished to auscultation bilaterally, Increased respiratory effort, no coughing noted Abdominal: Soft, not distended, no tenderness to palpation, BS present, Neurological: alert, inattentive, speech is clear but vague , oriented to place and self, follows commands, no tremor and no rigidity Skin: warm and dry, no visible rashes or wounds Labs and Imaging: Recent Results (from the past 24 hour(s)) POCT Glucose Collection Time: 12/31/21 8:28 PM Result Value Ref Range POC Glucose 129 (H) 70 - 100 mg/dL Basic Metabolic Panel w/ Reflex to MG Collection Time: 01/01/22 12:41 AM Result Value Ref Range Sodium 136 135 - 145 mmol/L Potassium 4.1 3.5 - 5.1 mmol/L Chloride 112 (H) 98 - 107 mmol/L CO2 22 22 - 30 mmol/L Anion Gap 2 (L) 3 - 13 mmol/L Glucose 129 (H) 70 - 100 mg/dL BUN 3 (L) 9 - 20 mg/dL Creatinine 0.40 (L) 0.52 - 1.25 mg/dL eGFR >90.0 >60 mL/min EGFR IF NonAfrican Trinidadian >90.0 >60 mL/min Calcium 7.2 (L) 8.4 - 10.4 mg/dL CBC with Auto Differential Collection Time: 01/01/22 12:41 AM Result Value Ref Range WBC 11.8 (H) 3.6 - 10.7 10*3/uL RBC 3.05 (L) 3.80 - 5.20 10*6/uL Hemoglobin 10.9 (L) 11.7 - 16.0 g/dL Hematocrit 32.4 (L) 35.0 - 47.0 % MCV 106.1 (H) 79.0 - 98.0 fL MCH 35.8 (H) 26.0 - 34.0 pg MCHC 33.7 32.0 - 36.0 % RDW 17.0 (H) 11.5 - 14.5 % Platelets 220 140 - 440 10*3/uL MPV 7.3 (L) 7.4 - 12.4 fL Granulocytes % 91.7 (H) 40.0 - 80.0 % Lymphocyte % 2.3 (L) 20.0 - 40.0 % Monocytes 5.8 2.0 - 10.0 % Eosinophils 0.1 (L) 1.0 - 6.0 % Basophils 0.1 0.0 - 2.0 % Absolute Neut # 10.9 (H) 1.8 - 7.0 10*3/uL Absolute Lymph # 0.3 (L) 1.0 - 4.3 10*3/uL Absolute [place] # 0.7 0.0 - 0.8 10*3/uL Absolute Eos # 0.0 0.0 - 0.5 10*3/uL Absolute Baso # 0.0 0.0 - 0.2 10*3/uL Hepatic Function Panel Collection Time: 01/01/22 12:41 AM Result Value Ref Range Albumin,Serum 2.5 (L) 3.5 - 5.0 g/dL Total Protein 5.3 (L) 6.3 - 8.2 g/dL Total Bilirubin 1.0 0.2 - 1.3 mg/dL Bilirubin, Direct 0.0 0.0 - 0.3 mg/dL Alkaline Phosphatase 56 38 - 126 U/L ALT 12 0 - 34 U/L AST 35 15 - 46 U/L POCT Glucose Collection Time: 01/01/22 12:51 AM Result Value Ref Range POC Glucose 120 (H) 70 - 100 mg/dL POCT Glucose Collection Time: 01/01/22 12:37 PM Result Value Ref Range POC Glucose 102 (H) 70 - 100 mg/dL Lab Results Component Value Date TSH 2.263 12/29/2021 Lab Results Component Value Date [id number] 12/30/2021 No results found for: VITD25 Reviewed: active problem list, medication list, lab results, * Mily Duarte - 01/01/2022 2:27 PM EDT Physical Therapy Facility/Department: [facility] ICU T2 Physical Therapy treatment note Name: Jaimie Mcgovern : 1945 Date of Service: 01/01/2022 Discharge Recommendations: Subacute/Jail Facility Patient Diagnosis(es): The encounter diagnosis was Pneumatosis of intestines. Past Medical History: has a past medical history of Alcoholic cirrhosis (HCC), Demand ischemia (HCC), Hypothyroid, and Pneumomediastinum (HCC). Past Surgical History: has a past surgical history that includes Cholecystectomy; Appendectomy; Hysterectomy; and CT GUIDED PLEURAL DRAINAGE W CATH PERC (01/01/2022). Assessment Body Structures, Functions, Activity Limitations Requiring Skilled Therapeutic Intervention: Decreased balance;Decreased endurance;Decreased functional mobility Assessment: Pt continues to complete bed mobility and transfers with Antonia. Limited by c/o dizzinessand lightheadedness with drops in SpO2. Prolonged rest breaks this session for SpO2 to recover. Recommend discharge to SNF at this time. Treatment Diagnosis: weakness, difficulty walking Therapy Prognosis: Fair Decision Making: Medium Complexity Requires PT Follow-Up: Yes Activity Tolerance Activity Tolerance: Patient limited by fatigue;Patient limited by endurance Activity Tolerance Comments: limited by SpO2 Plan Plan Plan: 2-3 times per week Plan weeks: 4 weeks Current Treatment Recommendations: Strengthening, Balance training, Functional mobility training, Transfer training, Gait training, Endurance training, Neuromuscular re-education, Safety education & training, Patient/Caregiver education & training, Equipment evaluation, education, & procurement, Therapeutic activities Safety Devices Type of Devices: Left in bed, Gait belt, Patient at risk for falls, Nurse notified, Call light within reach Restraints Restraints Initially in Place: No Restrictions Restrictions/Precautions Restrictions/Precautions: Fall Risk Required Braces or Orthoses?: No Position Activity Restriction Other position/activity restrictions: NC, costa, tele, chest tube Subjective General Chart Reviewed: Yes Patient assessed for rehabilitation services?: Yes Family / Caregiver Present: Yes Follows Commands: Within Functional Limits Subjective Subjective: Pt supine in bed upon arrival with daughter and daughter in law present at bedside. Social/Functional History Vision/Hearing Cognition Cognition Following Commands: Follows one step commands with increased time Safety Judgement: Decreased awareness of need for safety Initiation: Requires cues for some Sequencing: Requires cues for some Objective Bed mobility Supine to Sit: Minimal assistance (hand held and trunk assist to sit EOB) Sit to Supine: Minimal assistance (pt unable to fully lift legs onto bed.) Scooting: Minimal assistance (verbal cues for posture and Antonia to scoot R hip toward EOB.) Bed Mobility Comments: HOB elevated Transfers Sit to Stand: Minimal Assistance (pt requires multiple attempts to stand. verbal cues for hand placement) Stand to sit: Minimal Assistance Lateral Transfers: Minimal Assistance (pt takes 4 steps to left, Antonia for ambulation and FWW guidance) Comment: Pt de-sating this session, SpO2 dropped to low 80s while sititng EOB, encouraged deep breaths through nose, spO2 back to high 80s. while standing for 1 min, pt de-satted to 78, pt sat back on bed and encouraged deep breaths through nose for recovery. Ambulation Surface: level tile Device: Rolling Walker Assistance: Minimal assistance Quality of Gait: staggering, small steps, rounded shoulders, head down posture Gait Deviations: Slow Leighann;Decreased step length;Decreased step height;Staggers Distance: 5 steps to left Comments: pt limited by SpO2 this session. More Ambulation?: No Balance Posture: Fair Sitting - Static: Good Sitting - Dynamic: Fair;+ Standing - Static: Fair;+ Standing - Dynamic: Fair;+ Comments: Pt limited by dizziness and lightheadedness this session. OutComes Score AM-PAC Score AM-PAC Inpatient Mobility Raw Score : 13 (01/01/221426) AM-PAC Inpatient T-Scale Score : 36.74 (01/01/221426) Mobility Inpatient CMS 0-100% Score: 64.91 (01/01/221426) Mobility Inpatient CMS G-Code Modifier : CL (01/01/221426) [place] Score Goals Short Term Goals Time Frame for Short term goals: 4 weeks Short term goal 1: bed mobility, independent - progressing Short term goal 2: transfers with/without device, modified independent - progressing Short term goal 3: ambulation 50ft with/without device, modified independent - progressing Patient Goals Patient goals : none stated Education Patient Education Education Given To: Patient;Family Education Provided: Role of Therapy;Plan of Care Education Method: Verbal Barriers to Learning: None Education Outcome: Verbalized understanding Therapy Time Individual Concurrent Group Co-treatment Time In 1352 Time Out 1413 Minutes 21 Timed Code Treatment Minutes: 21 Minutes 1 FA This physical therapist wore appropriate PPE during therapy session. Mily Duarte, SPT * Estefania North RD, LD - 01/01/2022 1:52 PM EDT Comprehensive Nutrition Assessment Type and Reason for Visit: Reassess Nutrition Recommendations/Plan: Recommend diet per 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: Easy to chew with thin liquids Assist patient in daily room-service participation, assure she is consuming adequate protein and calories Per MNT protocol added: ensure enlive TID with meals (+1050 kcal, 60 g protein, 720 mL free H2O) Should PO improve, may reduce Ensure supplements to BID or once daily Please record % meals and oral nutrition supplements consumed in flow-sheet for most accurate nutrient intake assessment. RDN to continue to monitor weekly: fluid accumulation, weight, skin integrity, trends in lab values, tolerance of diet, ONS, and ability to meet nutrition needs, improvement in clinical status, discharge planning Malnutrition Assessment: Malnutrition Status: Severe malnutrition (01/01/22 1351) Context: Chronic Illness Findings of the 6 clinical characteristics of malnutrition: Energy Intake: 75% or less estimated energy requirements for 1 month or longer Weight Loss: No significant weight loss Body Fat Loss: Severe body fat loss Orbital, Triceps Muscle Mass Loss: Severe muscle mass loss Thigh (quadraceps), Calf (gastrocnemius), Temples (temporalis), Clavicles (pectoralis & deltoids) Fluid Accumulation: No significant fluid accumulation Supervisor [place] Strength: Not Performed Nutrition Assessment: 76 year old woman with PMHx: EtOH cirrhosis, COPD, hypothyroidism who presents with Right shoulder,Right chest, and RUQ pain. Initially presented to [place] ED on 12/27, +CT scan completed: trivial coronary calcification was seen multiple small area of the LAD . Patient then transferred to [facility] d/t concern for cecal pneumatosis as well as pneumomediastinum. Underwent s/p thoracentesis of 525 mL on 12/29/21. +KUB this morning: No pneumatosis intestinalis or pneumatosis coli. Nonobstructive bowel gaspattern . GenSurg with no plans for surgical intervention at this time. +CTS following for poor respiratory status, and no intervention of pneumomediastinum. Remains on HHFNC. 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 recommending: Easy To Chew Menu with Thin Liquids diet when able to advance. This morning, NPO for chest tube placement. Visited patient on her return to the room. 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 Willing to try ONS with meals. Consent obtained and NFPE completed, brought patient menu to revuiew lunch options. Nutrition Related Findings: No skin break down or edema noted at this time. +4 x bm over the past 24 hours. -I/O balance. Meds and labs reviewed. Inadeqaute oral intake for at least 5 days Wound Type: None Current Nutrition Intake & Therapies: Average Meal Intake: 1-25% (noted 1 meal on 12/31/21) Average Supplements Intake: None Ordered ADULT DIET; Easy to Chew ADULT ORAL NUTRITION SUPPLEMENT; Breakfast, Lunch, Dinner; Standard High Calorie/High Protein Oral Supplement Anthropometric Measures: Height: 5' (152.4 cm) [place] Body Weight (IBW): 100 lbs (45 kg) Admission Body Weight: 115 lb (52.2 kg) (estimated on 12/27/21) Current Body Weight: 112 lb 14 oz (51.2 kg), 112.9 % IBW. Weight Source: Bed Scale Current BMI (kg/m2): 22 Usual Body Weight: 116 lb (52.6 kg) (noted 07/11/21) % Weight Change (Calculated): -2.7 Weight Adjustment For: No Adjustment BMI Categories: Normal Weight (BMI 22.0 to 24.9) age over 65 Estimated Daily Nutrient Needs: Energy Requirements Based On: Kcal/kg Weight Used for Energy Requirements: Admission Energy (kcal/day): 25-28 kcals/kg = 3467-0129 kcals/day Weight Used for Protein Requirements: Admission Protein (g/day): 1.2-1.4g protein/kg IBW = 63-73g protein/day Method Used for Fluid Requirements: ml/Kg Fluid (ml/day): per MD Nutrition Diagnosis: Inadequate energy intake related to cognitive or neurological impairment as evidenced by NPO or clear liquid status due to medical condition Severe malnutrition, In context of chronic illness related to inadequate protein-energy intake as evidenced by poor intake prior to admission, severe loss of subcutaneous fat, severe muscle loss Nutrition Interventions: Food and/or Nutrient Delivery: Start Oral Nutrition Supplement, Vitamin Supplement, Mineral Supplement, Start Oral Diet (NPO this morning for repeat thoracentesis? ADAT) Nutrition Education/Counseling: Education not indicated Coordination of Nutrition Care: Continue to monitor while inpatient Plan of Care discussed with: RN, and patient Goals: Previous Goal Met: No Progress toward Goal(s) (PO remains inadeqaute, NPO this morning) Goals: other (specify) Specify Other Goals: Patient to meet > 50% estimated needs via PO and ONS prior to discharge Nutrition Monitoring and Evaluation: Behavioral-Environmental Outcomes: None Identified Food/Nutrient Intake Outcomes: Supplement Intake, Food and Nutrient Intake Physical Signs/Symptoms Outcomes: GI Status, Meal Time Behavior, Hemodynamic Status, Chewing or Swallowing, Biochemical Data, Nausea or Vomiting, Nutrition Focused Physical Findings, Skin, Other (Comment), Weight, Fluid Status or Edema Discharge Planning: Too soon to determine Estefania North RD, LD Contact: *[phone] Or Via eSentire * Nini Thomas APRN - [facility] - 01/01/2022 1:33 PM EDT Images from the original note were not included. Palliative Care Progress Note Chief Complaint: Jaimie Alan a 76 y.o. female with chief complaint of CP, abdominal pain Palliative care is actively following this patient. Assessment/Plan Assessment/Plan Shortness of breath - pending thoracentesis today - on HFNC 50%/35L--weaned to 5L - pleural effusion - pneumomediastinum - reviewed labs - blood cultures - iv abx - lactic acid down trending - active smoker [employer] - hypertonic saline nebs - duonebs Large R pleural effusion - thoracentesis 12/29/21 with 500ML removed - R pigtail placed 01/01/22 for recurrence pleural effusion - pending pulm consult Pneumomediastinum - CTS following, no plans for intervention at this time Cecal pneumatosis - serial films - per SICU team Debility - PT/OT when medically stable - lived alone [employer], most recently daughter was helping with IADLs - she has refused to move in with children who have asked repeatedly - open to SNF at [place] - [facility] aware Alcohol abuse - history of cirrhosis - CIWA protocol--no longer requiring - on phenobarb, reduced to 16.25mg three times per day--dc 01/01/22 - folic acid and thiamine - addiction med when stable Elevated troponin - cardiology seen, with demand ischemia from acute illness Palliative Care Encounter -full code - does not have capacity to make medical decisions - daughter Geneva is HCPOA - more awake and interactive today, able to answer simple yes and no questions, minimal elaboration - daughter at bedside, education regarding pigtail for recurrent pleural effusion, overall mentation improved, still not enough to have GOC conversations, will follow peripherally - will continue to follow for ongoing monitoring of progression of mentation and Dyspnea - will continue to evaluate test results related to Respiratory Failure, medication effectiveness for mentation and Dyspnea, response to treatment of Respiratory Failure - obtaining testing as needed to monitor medication results:N/A - follow Active Hospital Problems Diagnosis Date Noted Demand ischemia of myocardium (HCC) [I24.8] 12/29/2021 Priority: High Pneumomediastinum (HCC) [J98.2] 12/29/2021 Priority: High Elevated troponin [R77.8] 12/30/2021 Priority: Medium Acute respiratory insufficiency [R06.89] 12/29/2021 Priority: Medium Shortness of breath [R06.02] 12/29/2021 Priority: Medium Pleural effusion on right [J90] 12/29/2021 Priority: Medium Palliative care encounter [Z51.5] 12/29/2021 Priority: Medium Debility [R53.81] 12/28/2021 Priority: Medium At risk for delirium [Z91.89] 12/28/2021 Priority: Medium Alcohol abuse [F10.10] 12/28/2021 Priority: Medium Pneumatosis of intestines [K63.89] 12/27/2021 Priority: Medium Time/Communication Greater than 51% of time spent, total 25 minutes in counseling and coordination of care at the bedside regarding See Above Discharge planning: to be determined Patient meets criteria for general inpatient hospice care including the following:N/A- Palliative Care Patient Referrals to: None Today Discussed patient and the plan of care with the other interdisciplinary team (IDT) members of Palliative Team, and with Primary Attending, Patient, Family, and Floor Nurse Insert attestation statement here if applicable (.disupervision) or (.npattest) I have discussed the patient's case and plan of care with my collaborating physician Dr. Wynn Subjective: Subjective/Events Since last seen: recurrent pleural effusion now with pigtail placement this morning, she is more awake and interactive, admits to pain at site of pigtail, not as short of breath, no nausea, vomiting having multiple BMs. Goals of care: Continue Current Management Advance Directives: full code Surrogate: Child Prognosis: unknown Spiritual assessment: No spiritual distress identified Bereavement and grief: Grief Issues Not Identified ROS: See palliative care ROS/ESAS below; see HPI Family Meeting: Participants:Patient and daughter Family meeting was held to discuss: as above Objective: Physical Exam BP (!) 146/73 Pulse 86 Temp 97.4 F (36.3 C) (Temporal) Resp (!) 32 Ht 5' (1.524 m) Wt 123lb 9.6 oz (56.1 kg) SpO2 97% BMI 24.14 kg/m Physical Exam Vitals and nursing note reviewed. Constitutional: General: She is awake. Appearance: She is normal weight. She is ill-appearing. HENT: Head: Normocephalic and atraumatic. Mouth/Throat: Mouth: Mucous membranes are dry. Eyes: General: Right eye: No discharge. Left eye: No discharge. Cardiovascular: Rate and Rhythm: Normal rate and regular rhythm. Pulses: Normal pulses. Heart sounds: Normal heart sounds. No murmur heard. Comments: No edema B post tib/dorsalis pedis palpable Positive mottling Pulmonary: Effort: Respiratory distress (mild) present. Breath sounds: Rhonchi present. Comments: R pigtail to water seal Abdominal: General: Bowel sounds are normal. There is no distension. Palpations: Abdomen is soft. Tenderness: There is no abdominal tenderness. Genitourinary: Comments: Costa to gravity Musculoskeletal: Cervical back: Normal range of motion and neck supple. Skin: General: Skin is warm and dry. Comments: fragile Neurological: Comments: More interactive, not at baseline per daughter at bedside Psychiatric: Comments: No agitation [place] Symptom Assessment Score [place] Score Pain Score 3 Tiredness Score 2 Nausea Score 0 Depression Score 0 Anxiety Score 0 Drowsiness Score 2 Anorexia Score (0= eating well, 10= not eating) 10 Wellbeing Score (10= worst sense of well-being) 10 Constipation 0 Dyspnea Score (0= no shortness of breath) 4 FLACC Scale (For Pain Assessment of the Non-Verbal Patient) Patient is verbal Assessed by: patient and provider. Intervention taken for pain: none All other systems were reviewed and are negative. Current Medications: Inpatient medications reviewed: yes Home Medications reviewed: yes 24 Hour PRNMeds: oxycodone 5mg times 1, melatonin 3mg times 1 Results/Verification of Data Review Objective data reviewed: labs, images, records, medicationuse, vitals, and chart Data in Support of Terminal Illness: Is patient hospice appropriate? TBD * JOHN Ruiz - 01/01/2022 12:50 PM EDT Facility/Department: [facility] ICU T2 Dysphagia Treatment Note NAME: Jaimie Mcgovern : 1945 Patient Diagnosis(es): Patient Active Problem List Diagnosis Pneumatosis of intestines Debility At risk for delirium Alcohol abuse Acute respiratory insufficiency Shortness of breath Pleural effusion on right Palliative care encounter Demand ischemia of myocardium (HCC) Pneumomediastinum (HCC) Elevated troponin Allergies: Allergies Allergen Reactions Latex Azithromycin did not work Bisoprolol-Hydrochlorothiazide did not work Onset Date: 12/27/2021 Oxygen Level: 5 liters nasal canula Current Diet Level: Easy To chew Compensatory Techniques [x]Small bolus; eat slowly to avoid shortness of breath [x]Alternate bites/ sips [x]Position patient upright Pain:RN managing S: Patient is alert and cooperative; daughter is present. O: Assess tolerance of diet A: Patient was NPO for Chest Tube placement this AM. Patient back on nasal canula and has strong vocal quality. Patient reports limited appetite. Patient will to consume water via straw, applesauce, and a piece of olayinka cracker. Patient reports chapped lips which limited patients tolerance of solid boli. Otherwise, there is adequate mastication, bolus formation and AP transit with all tested textures. Laryngeal excursion is clinically appropriate. There is no overt evidence suggestive of aspiration. [] Goal met [x] Progressing as expected [] Progressing slower than expected [] Medical status inhibits participation [] Goals not addressed this session [] Goals revised this session [] Unable to show any progress towards functional goals [] Progress towards functional goal is gradual / fair Routine Education: Results and recommendations from this session were discussed with the patient / RN / family including: diet recommendations (See below), swallowing strategies/compensatory techniques (see above), andtreatment goals in the dysphagia plan of care. Patient shows adequate level of comprehension. Family were available for session / education. P: OK to continue an Easy To Chew diet with Thin Liquids. Discussed menu selection options to limitexpenditure of physical energy during meals. Will continue the dysphagia plan of care and assess potential for diet upgrade next weeks once respiratory status supports same. Time Out: 1230 Session time: 20 minutes An N95 mask and gloves were worn throughout this session. * Dex Puga MD - 01/01/2022 10:44 AM EDT Images from the original note were not included. Department of General Surgery Daily Progress Note ADMIT DATE: 12/27/2021 TODAY'S DATE: 01/01/2022 SUBJECTIVE: CT results noted ALBERTO Much more lucid this AM No nausea or vomiting Says she feels better overall OBJECTIVE: VITALS: BP (!) 141/86 Pulse 82 Temp 98.1 F (36.7 C) (Temporal) Resp 21 Ht 5' (1.524 m) Wt123 lb 9.6 oz (56.1 kg) SpO2 97% BMI 24.14 kg/m INTAKE/OUTPUT: Date 01/01/22 0000 - 01/01/22 2359 Shift 5634-4608 2646-2688 5791-6851 24 Hour Total INTAKE Shift Total(mL/kg) OUTPUT Urine(mL/kg/hr) 940(2.1) 1000 1940 Shift Total(mL/kg) 940(16.8) 1000(17.8) 1940(34.6) Weight (kg) 56.1 56.1 56.1 56.1 I/O last 3 completed shifts: In: 1648 [P.O.:220; I.V.:1328; IV Piggyback:100] Out: 4215 [Urine:4215] I/O this shift: In: - Out: 1000 [Urine:1000] PHYSICAL EXAM: Gen: NAD, A&Ox3, pain well controlled Heart: RRR, well perfused Lungs: symmetric chest rise, normal work of breathing, breath sounds b/l Abd: soft, nontender no reobund or guarding. Non tense Ext: no c/c/e no gross deformities Skin: warm, well perfused, no obvious rashes, cellulitis or gross discoloration LABS CBC: Recent Labs 12/30/21 0617 12/31/21 0428 01/01/22 0041 WBC 6.8 7.8 11.8* HGB 10.2* 10.6* 10.9* HCT 29.7* 32.2* 32.4* PLT 161 193 220 BMP: Recent Labs 12/30/21 0731 12/31/21 0258 01/01/22 0041 NA 136 137 136 K 2.7* 2.9* 4.1 CL 108* 111* 112* CO2 23 23 22 BUN 8* 5* 3* CREATININE 0.53 0.49* 0.40* GLUCOSE 70 163* 129* Hepatic: Recent Labs 12/30/21 0731 12/31/21 0258 01/01/22 0041 AST 42 40 35 ALT 11 12 12 BILITOT 1.1 0.9 1.0 ALKPHOS 52 60 56 Current Inpatient Medications Scheduled Meds: potassium chloride 40 mEq Oral BID PHENobarbital 16.25 mg IntraVENous BID [Held by provider] polyethylene glycol 17 g Oral Daily levothyroxine 50 mcg Oral Daily folic acid IVPB 1 mg IntraVENous Daily sodium chloride (Inhalant) 4 mL Nebulization TID thiamine (VITAMIN B1) IVPB 500 mg IntraVENous TID ipratropium-albuterol 1 ampule Inhalation Q4H WA pantoprazole (PROTONIX) 40 mg injection 40 mg IntraVENous Daily piperacillin-tazobactam 4,500 mg IntraVENous Q6H sodium chloride flush 5-40 mL IntraCATHeter Q8H sodium chloride flush 5-40 mL IntraVENous 2 times per day acetaminophen 1,000 mg Oral 3 times per day lidocaine 1 patch TransDERmal Daily [Held by provider] sennosides-docusate sodium 1 tablet Oral BID [Held by provider] bisacodyl 5 mg Oral Daily enoxaparin 40 mg SubCUTAneous Daily Continuous Infusions: dextrose dextrose 5% and 0.45% NaCl with KCl 20 mEq 50 mL/hr at 01/01/22 0424 sodium chloride PRN Meds:hydrALAZINE, labetalol, [Held by provider] bisacodyl, morphine OR morphine, glucose, dextrose, glucagon (rDNA), dextrose, melatonin, sodium chloride flush, sodium chloride flush, sodium chloride, oxyCODONE OR oxyCODONE, ondansetron, [Held by provider] LORazepam OR [Held by provider] LORazepam OR [Held by provider] LORazepam OR [Held by provider] LORazepam OR [Heldby provider] LORazepam OR [Held by provider] LORazepam OR [Held by provider] LORazepam OR [Held by provider] LORazepam ASSESSMENT AND PLAN: 76 y.o. female with cecal pneumatosis and pneumomediastinum - serial abdominal exams, currently non-acute - other management per SICU - ACS to follow while SICU team also following, will await floor transfer to assume primary care thereafter. Will discuss with Dr. Kyung PUGA MD General Surgery PGY-2 01/01/22 10:44 AM Pager # [phone] This note may have been dictated using [employer] Edition 2.6 and/or [employer] Voice Recognition Feature. The document was proofread; however, unrecognized voice recognition flight dispatcher errors may be present. * Stephanie Olivia RN - 01/01/2022 10:00 AM EDT Patient arrived to Radiology department for Right =Pleural drain placement History, medications and allergies reviewed. Dr. Loyola present. Informed consent obtained prior via telephone [address] table CT imaging completed. Site marked and prepped in sterile fashion. 65ml of tea colored fluid removed aspirated. 12 Fr. Drain placed and secured with Stay-Fix dressingand 2 large Opsites. Drain connected to Atruim. Patient tolerated procedure well.Patient returned to T2 via bed * DESTINY Philip CNP - 01/01/2022 7:02 AM EDT Daily SICU Progress Note Nurse Practitioner 01/01/2022 7:02 AM Admit Date: 12/27/2021 Post Hospital Day 5 History of Present illness: 76 y.o. female with significant past medical history of cirrhosis, COPD, hypothyroidism who presents with R shoulder, R chest, and RUQ pain. Patient received CT scan at [place] [facility] and was transferred here with concern for cecal pneumatosis as well as pneumomediastinum. PROCEDURES: 12/29 right thoracentesis-525ml bloody fluid 01/01 right thoracentesis with pigtail placement to water seal INCIDENTAL FINDINGS: none CHIEF COMPLAINT: chest pain, abdominal pain PREVIOUS 24 HOUR EVENTS: Returned from 3L NC to High flow oxygen requirements Decrease phenobarb nightly CTA chest/abd/pelvis repeat thoracentesis 01/01 w/pigtail placement BMX4 loose stools Consults: IP CONSULT TO GENERAL SURGERY IP CONSULT TO GERIATRICS IP CONSULT TO PALLIATIVE CARE IP CONSULT TO DIETITIAN IP CONSULT TO CARDIOLOGY MEDICATIONS: Current Facility-Administered Medications Medication Dose Route Frequency Provider Last Rate Last Admin potassium chloride (KLOR-CON) packet 40 mEq 40 mEq Oral BID DESTINY Philip CNP 40 mEq at 12/31/212017 [Held by provider] bisacodyl (DULCOLAX) suppository 10 mg 10 mg Rectal Daily PRN DESTINY Philip CNP PHENobarbital (LUMINAL) injection 16.25 mg 16.25 mg IntraVENous BID Yariel Beasley MD 16.25 mg at 12/31/212017 morphine sulfate (PF) injection 2 mg 2 mg IntraVENous Q4H PRN DESTINY Philip CNP Or morphine sulfate (PF) injection 4 mg 4 mg IntraVENous Q4H PRN DESTINY Philip CNP Glucose (TRUEPLUS) oral gel 15 g 15 g Oral PRN DESTINY Philip CNP dextrose 50 % IV solution 12.5 g IntraVENous PRN DESTINY Philip CNP 12.5 g at 12/30/21 1351 glucagon (rDNA) injection 1 mg 1 mg IntraMUSCular PRN DESTINY Philip CNP dextrose 5 % solution 100 mL/hr IntraVENous PRN DESTINY Philip CNP [Held by provider] polyethylene glycol (GLYCOLAX) packet 17 g 17 g Oral Daily DESTINY Philip CNP 17 g at 12/30/21 1230 levothyroxine (SYNTHROID) tablet 50 mcg 50 mcg Oral Daily DESTINY Philip CNP 50 mcg at 12/31/21 0838 dextrose 5 % and 0.45 % NaCl with KCl 20 mEq infusion IntraVENous Continuous Yariel Beasley MD 50 mL/hr at 01/01/22 0424 New Bag at 01/01/22 0424 folic acid 1 mg in sodium chloride 0.9 % 50 mL IVPB 1 mg IntraVENous Daily DESTINY Philip CNP Stopped at 12/31/21917 melatonin SL liquid 0.3 mg 0.3 mg SubLINGual Nightly PRN DESTINY Philip CNP 0.3 mg at 12/31/212017 sodium chloride (Inhalant) 3 % nebulizer solution 4 mL 4 mL Nebulization TID DESTINY Philip 4 mL at 12/31/212223 thiamine (B-1) 500 mg in sodium chloride 0.9 % 100 mL IVPB 500 mg IntraVENous TID DESTINY Philip CNP Stopped at 12/31/212058 ipratropium-albuterol (DUONEB) nebulizer solution 1 ampule 1 ampule Inhalation Q4H GINGER Araujo MD 1 ampule at 12/31/212216 labetalol (NORMODYNE;TRANDATE) injection 10 mg 10 mg IntraVENous Q6H PRN Monika Araujo MD 10 mg at 01/01/22 0531 hydrALAZINE (APRESOLINE) injection 10 mg 10 mg IntraVENous Q6H PRN Monika Araujo MD pantoprazole (PROTONIX) 40 mg in sodium chloride (PF) 10 mL injection 40 mg IntraVENous Daily Monika Araujo MD 40 mg at 12/31/21 0838 piperacillin-tazobactam (ZOSYN) 4500 mg in dextrose 100 mL IVPB extended infusion (premix) 4,500 mgIntraVENous Q6H Yariel Beasley MD 33.3 mL/hr at 01/01/22 0424 4,500 mg at 01/01/22 0424 sodium chloride flush 0.9 % injection 5-40 mL 5-40 mL IntraCATHeter Q8H Wale Christie MD 10 mL at 12/31/21 0251 sodium chloride flush 0.9 % injection 5-40 mL 5-40 mL IntraCATHeter PRN Wale Christie MD sodium chloride flush 0.9 % injection 5-40 mL 5-40 mL IntraVENous 2 times per day Monika Araujo MD 10 mL at 12/30/21 2140 sodium chloride flush 0.9 % injection 5-40 mL 5-40 mL IntraVENous PRN Monika Araujo MD 0.9 % sodium chloride infusion IntraVENous PRN Monika Araujo MD acetaminophen (TYLENOL) tablet 1,000 mg 1,000 mg Oral 3 times per day Monika Araujo MD 1,000 mg at 12/31/21 1610 oxyCODONE (ROXICODONE) immediate release tablet 5 mg 5 mg Oral Q4H PRN Monika Araujo MD 5 mg at 12/30/21 0629 Or oxyCODONE (ROXICODONE) immediate release tablet 10 mg 10 mg Oral Q4H PRN Monika Araujo MD lidocaine 4 % external patch 1 patch 1 patch TransDERmal Daily Monika Araujo MD 1 patch at 12/31/21 0839 [Held by provider] sennosides-docusate sodium (SENOKOT-S) 8.6-50 MG tablet 1 tablet 1 tablet Oral BID Monika Araujo MD 1 tablet at 12/30/217 [Held by provider] bisacodyl (DULCOLAX) EC tablet 5 mg 5 mg Oral Daily Monika Araujo MD 5 mg at 12/30/21 0827 ondansetron (ZOFRAN) injection 4 mg 4 mg IntraVENous Q6H PRN Monika Araujo MD enoxaparin (LOVENOX) injection 40 mg 40 mg SubCUTAneous Daily Monika Araujo MD 40 mg at 12/31/21 1815 [Held by provider] LORazepam (ATIVAN) tablet 1 mg 1 mg Oral Q1H PRN Monika Araujo MD 1 mg at 12/28/21 1550 Or [Held by provider] LORazepam (ATIVAN) injection 1 mg 1 mg IntraVENous Q1H PRN Monika Araujo MD 1 mg at 12/29/21 0012 Or [Held by provider] LORazepam (ATIVAN) tablet 2 mg 2 mg Oral Q1H PRN Monika Araujo MD Or [Held by provider] LORazepam (ATIVAN) injection 2 mg 2 mg IntraVENous Q1H PRN Monika Araujo MD Or [Held by provider] LORazepam (ATIVAN) tablet 3 mg 3 mg Oral Q1H PRN Monika Araujo MD Or [Held by provider] LORazepam (ATIVAN) injection 3 mg 3 mg IntraVENous Q1H PRN Monika Araujo MD 3 mg at 12/29/21 0120 Or [Held by provider] LORazepam (ATIVAN) tablet 4 mg 4 mg Oral Q1H PRN Monika Araujo MD Or [Held by provider] LORazepam (ATIVAN) injection 4 mg 4 mg IntraVENous Q1H PRN Monika Aruajo MD ARE THERE PERTINENT UPDATES TO PAST,FAMILY, OR SOCIAL HISTORY?: No Subjective: States she had several loose stools overnight. Denies abdominal pain or chest pain this am. States she has been coughing and wheezing overnight and feels short of breath this am. Review of Systems Constitutional: Positive for activity change and appetite change. HENT: Negative for trouble swallowing. Respiratory: Positive for cough and shortness of breath. Cardiovascular: Negative for chest pain. Palpitations: intermittent. Gastrointestinal: Negative for abdominal distention, abdominal pain, constipation, diarrhea, nauseaand vomiting. Genitourinary: Positive for difficulty urinating. Musculoskeletal: Positive for gait problem (genralized weakness). Negative for arthralgias, back pain, myalgias and neck pain. Skin: Negative for wound. Neurological: Negative for dizziness, light-headedness and headaches. Psychiatric/Behavioral: Positive for confusion. Negative for agitation and behavioral problems. PHQ In the last 2 weeks have you had: Little interest or pleasure in doing things No Been feeling down, depressed, or hopeless No If greater then 0, place CLP consult Date PHQ completed: 12/30/21 Objective: Patient Vitals for the past 24 hrs: BP Temp Temp src Pulse Resp SpO2 01/01/22 0549 -- -- -- 92 25 97 % 01/01/22 0500 (!) 172/91 -- -- 84 29 97 % 01/01/22 0400 (!) 158/102 -- -- 86 (!) 31 97 % 01/01/22 0300 (!) 134/107 -- -- 83 (!) 35 95 % 01/01/22 0200 (!) 140/80 -- -- 81 (!) 34 96 % 01/01/22 0100 134/89 -- -- 83 30 92 % 01/01/22 0000 136/79 -- -- 78 27 91 % 12/31/21 2300 (!) 145/80 -- -- 84 (!) 36 94 % 12/31/21 2224 -- -- -- -- -- 100 % 12/31/21 2217 -- -- -- -- -- 100 % 12/31/21 2200 (!) 111/97 -- -- 80 27 93 % 12/31/21 2100 (!) 148/81 -- -- 79 29 98 % 12/31/21 2000 (!) 149/91 98.1 F (36.7 C) Temporal 82 (!) 33 97 % 12/31/21 1900 137/80 -- -- 84 19 97 % 12/31/21 1800 137/74 -- -- 81 25 97 % 12/31/21 1700 129/69 -- -- 82 (!) 33 96 % 12/31/21 1600 (!) 164/83 99.9 F (37.7 C) Temporal (!) 112 (!) 33 94 % 12/31/21 1513 -- -- -- 94 28 93 % 12/31/21 1512 -- -- -- 99 (!) 31 95 % 12/31/21 1500 (!) 166/84 -- -- 94 (!) 35 96 % 12/31/21 1400 119/70 -- -- 94 (!) 36 99 % 12/31/21 1300 (!) 140/77 -- -- 100 (!) 33 93 % 12/31/21 1200 138/72 98.2 F (36.8 C) Temporal (!) 103 26 98 % 12/31/21 1102 -- -- -- 92 28 94 % 12/31/21 1100 135/75 -- -- 97 29 93 % 12/31/21 1000 (!) 144/74 -- -- 93 24 96 % 12/31/21 0910 -- -- -- 92 (!) 35 100 % 12/31/21 0909 -- -- -- 92 16 98 % 12/31/21 0900 (!) 171/80 -- -- 95 (!) 40 97 % 12/31/21 0850 (!) 175/97 -- -- 100 25 95 % 12/31/21 0800 -- 100.1 F (37.8 C) Temporal -- -- -- Date 01/01/22 0000 - 01/01/22 2359 Shift 4261-5912 7695-7473 1631-2215 24 Hour Total INTAKE Shift Total(mL/kg) OUTPUT Urine(mL/kg/hr) 400 400 Shift Total(mL/kg) 400(7.1) 400(7.1) Weight (kg) 56.1 56.1 56.1 56.1 Last BM: 01/01 Diet: Soft/Easy chew with thin liquids (per speech) CVP: Yes Where: Right IJ Chest Tubes: none PHYSICAL: Physical Exam Vitals and nursing note reviewed. Constitutional: General: She is not in acute distress. Appearance: She is ill-appearing. She is not toxic-appearing. HENT: Head: Normocephalic and atraumatic. Right Ear: External ear normal. Left Ear: External ear normal. Nose: Nose normal. Mouth/Throat: Mouth: Mucous membranes are dry. Eyes: Extraocular Movements: Extraocular movements intact. Conjunctiva/sclera: Conjunctivae normal. Pupils: Pupils are equal, round, and reactive to light. Cardiovascular: Rate and Rhythm: Normal rate. Pulses: Normal pulses. Pulmonary: Effort: Pulmonary effort is normal. No respiratory distress. Breath sounds: Rhonchi present. Comments: High flow oxygen, wean to goal of 92% Abdominal: General: Bowel sounds are normal. There is no distension. Palpations: Abdomen is soft. There is no mass. Tenderness: There is abdominal tenderness. There is no guarding or rebound. Hernia: No hernia is present. Genitourinary: Comments: Julissa to CLARK Musculoskeletal: General: No tenderness or signs of injury. Normal range of motion. Cervical back: Normal range of motion and neck supple. No tenderness. Comments: Generalized weakness Skin: General: Skin is warm and dry. Capillary Refill: Capillary refill takes 2 to 3 seconds. Neurological: Mental Status: She is alert. Comments: Alert to place and year today Psychiatric: Mood and Affect: Mood normal. Comments: History of etoh withdraw Sutures or nicolas? No O2: High Flow, wean to goal 92% Data Review Data CBC with Differential: Lab Results Component Value Date/Time WBC 11.8 01/01/2022 12:41 AM RBC 3.05 01/01/2022 12:41 AM HGB 10.9 01/01/2022 12:41 AM HCT 32.4 01/01/2022 12:41 AM PLT 220 01/01/2022 12:41 AM CMP: Lab Results Component Value Date/Time NA 136 01/01/2022 12:41 AM K 4.1 01/01/2022 12:41 AM CL 112 01/01/2022 12:41 AM CO2 22 01/01/2022 12:41 AM BUN 3 01/01/2022 12:41 AM CREATININE 0.40 01/01/2022 12:41 AM GLUCOSE 129 01/01/2022 12:41 AM PROT 5.3 01/01/2022 12:41 AM LABALBU 2.5 01/01/2022 12:41 AM CALCIUM 7.2 01/01/2022 12:41 AM BILITOT 1.0 01/01/2022 12:41 AM ALKPHOS 56 01/01/2022 12:41 AM AST 35 01/01/2022 12:41 AM ALT 12 01/01/2022 12:41 AM BMP: Hepatic Function Panel:Ionized Calcium: No results found for: IONCA Magnesium: Lab Results Component Value Date/Time MG 1.9 12/31/2021 02:58 AM Phosphorus: Lab Results Component Value Date/Time PHOS 3.6 12/30/2021 07:31 AM PT/INR: Lab Results Component Value Date/Time PROTIME 10.4 12/27/2021 11:49 AM INR 1.0 12/27/2021 11:49 AM PTT: No results found for: APTT[APTT Last 3 Troponin: Lab Results Component Value Date/Time TROPONINI 0.124 12/30/2021 12:29 AM TROPONINI 0.156 12/29/2021 06:34 PM TROPONINI 0.162 12/29/2021 10:18 AM Urine Culture: No components found for: CURINE Blood Culture: No components found for: CBLOOD, CFUNGUSBL Blood Culture from Central Line: No components found for: CBLOODLN Stool Culture: No components found for: CSTOOL Sputum Culture: No components found for: CSPUTUM Sputum Culture for AFB: No components found for: CAFBSM Wound Culture: n/a Radiology: XR ABDOMEN (KUB) (SINGLE AP VIEW) Result Date: 12/30/2021 Patient Name: JAIMIE MCGOVERN Diagnostic Radiology ACCESSION EXAM DATE/TIME PROCEDURE ORDERING PROVIDER [id number] 12/30/2021 07:53 EDT CR Abdomen AP [id number] ISABEL VICK CPT code 32695 Reason For Exam (CR Abdomen AP) assess for cecal pneumatosis Report Examination: Abdomen: AP view. Comparison: 12/29/2021. Reason For Study: Assess for cecal pneumatosis. Findings/Interpretations: 1. Limited view of the right lower quadrant shows curvilinear lucenciescephalad to the right greater trochanter which may represent pneumatosis coli. Clarification with CT of the abdomen would be more beneficial. 2. Small amount residual colorectal contrast and solid content. 3. Tubular lucencies overlying the abdomen suggest distal small bowel obstruction. Further evaluation with CT scan of the abdomen and pelvis would be of value. Report Dictated on --- Final --- Dictated: 12/30/2021 11:07 am Dictating Physician: MD MAHAJAN B NELSON Signed Date and Time: 12/30/2021 11:24 am Signed by: MD MAHAJAN B NELSON Transcribed Date and Time: 12/30/2021 11:07 XR ABDOMEN (KUB) (SINGLE AP VIEW) Result Date: 12/29/2021 Patient Name: JAIMIE MCGOVERN Diagnostic Radiology ACCESSION EXAM DATE/TIME PROCEDURE ORDERING PROVIDER [id number] 12/29/2021 10:58 EDT CR Abdomen AP [id number] -NATHALIENANCI JIIL CPT code 01319 Reason For Exam (CR Abdomen AP) distention, increase WOB Report CLINICAL INFORMATION: Abdominal pain. Distention. Supine KUB is provided. FINDINGS: Air, stool, and previously administered oral contrast are seen in nondistended loops of: to the level of the rectum. The small bowel is not dilated. IMPRESSION: 1. Nonobstructive bowel gas pattern. Report Dictated on --- Final --- Dictated: 12/29/2021 11:13 am Dictating Physician: MD LOYOLA JEFFREY Signed Date and Time: 12/29/2021 11:14 am Signed by: MD LOYOLA JEFFREY Transcribed Date and Time: 12/29/2021 11:13 CT CHEST W CONTRAST Result Date: 12/27/2021 Patient Name: JAIMIE MCGOVERN Computed Tomography ACCESSION EXAM DATE/TIME PROCEDURE ORDERING PROVIDER [id number] 12/27/2021 14:[address] Thorax w/ Contrast [id number] MONIKA AYOUB CPT code 63581 Q9967 Reason For Exam (CT Thorax w/ Contrast) CT esophogram for possible esophageal perforation Report EXAMINATION: CT of the chest with oral contrast (CT esophagram). EXAM DATE & TIME: 12/27/2021 2:58 PM EDT INDICATION: CT esophogram for possible esophageal perforation ADDITIONAL INFORMATION: 76-year-old female with suspected perforated esophagus presents for CT esophagram COMPARISON: None LIMITATIONS: None TECHNIQUE: [address] images were obtained of the chest during dynamic injection of oral contrast. Images were reformatted in coronal and sagittal projections using the raw CT data and were interpreted in conjunction with the axial imagesto render the findings listed below. Before infusion of intravenous contrast, radiology personnel in vestigated the possibility of an allergic history and any history of reaction to iodinated contrastmaterial. FINDINGS: Cardiovascular: Atherosclerotic vascular calcifications are present. Mediastinum/pericardium: A moderate amount of pneumomediastinum is present, tracking from the level of the thyroid gland, down to the gastroesophageal junction. No evidence of contrast extravasation into the mediastinum to suggest the presence of an esophageal injury. Thyroid: Unremarkable. Tracheobronchial tree: Some debris is present in the trachea and proximal mainstem bronchi. A large amount of debris is present in the bilateral lower lobe bronchioles, suspicious for aspiration. Pleura: There are large right and small left pleural effusions with associated atelectatic change. No evidence of pneumothorax. Computed Tomography Report Lungs: There is bibasilar scarring/atelectasis and partial collapseof the bilateral lower lobes. There is also mild patchy consolidation near the dependent aspects ofthe lung bases. Nodules: No nodules are present that require follow up. Lymph nodes: No emerging adenopathy. Included images of the upper abdomen: There is colonic interposition. Nodular hepatic margin is suggestive of cirrhotic liver morphology. There is moderate bilateral adrenal nodularity, leftgreater than right. Visualized musculoskeletal structures: No acute osseous abnormality is demonstrated. Mild multilevel spondylosis is present. IMPRESSION: 1. No contrast extravasation to suggest the presence of an esophageal injury. 2. Fairly extensive pneumomediastinum, spanning the level of thethyroid gland of the gastroesophageal junction. 3. Large right and small left pleural effusions with associated atelectatic change. 4. Debris in the trachea, mainstem bronchi and bilateral lower lobebronchioles, suspicious for aspiration. Clinical correlation recommended. 5. Hepatic cirrhosis. 6. Additional chronic findings as above. Report Dictated on --- Final --- Dictated: 12/27/2021 3:37 pm Dictating Physician: MD ARENAS CHRISTOPHER Signed Date and Time:12/27/2021 3:46 pm Signed by: MD ARENAS CHRISTOPHER Transcribed Date and Time: 12/27/2021 3:37 XR CHEST PORTABLE Result Date: 12/30/2021 Patient Name: JAIMIE MCGOVERN Diagnostic Radiology ACCESSION EXAM DATE/TIME PROCEDURE ORDERING PROVIDER [id number] 12/30/2021 06:05 EDT CR Chest Portable MD MACIEL ANDREW CPT code 84791 Reason For Exam (CR Chest Portable) patient with desaturation and tacypnea Report Indication: 76-year-old; inpatient; desaturation and tachypnea. Views: Chest portable Comparison: 12/29/2021 at 5:34 AM Findings: Right internal jugular approach central venous catheter is present with tip overlying the right atria. Cardiac monitoring wires and leads are present. The patient is rotated. The cardiomediastinal silhouette is enlarged. The osseous structures appear stable. A layering right pleural effusion is present which appears decreased compared to prior day. Smallleft pleural effusion. There is thickening of the interstitium.. IMPRESSION: Interval decrease in size of a RIGHT pleural effusion. Bilateral pleural effusions, right greater than left. Pulmonary vasc ular congestion.. Report Dictated on --- Final --- Dictated: 12/30/2021 7:09 am Dictating Physician: MD CARLIN JENNIFER R Signed Date and Time: 12/30/2021 7:12 am Signed by: MD CARLIN JENNIFER R Transcribed Date and Time: 12/30/2021 7:09 XR CHEST PORTABLE Result Date: 12/29/2021 Patient Name: JAIMIE MCGOVERN Diagnostic Radiology ACCESSION EXAM DATE/TIME PROCEDURE ORDERING PROVIDER [id number] 12/29/2021 05:47 EDT CR Chest Portable Jb -LEE ANNJYOTI MONIKA CPT code 41153 Reason For Exam (CR Chest Portable) pneumomediastinum ReportCLINICAL INFORMATION: Respiratory abnormality. History of pneumomediastinum. CHEST X- RAY, PORTABLE,0534 hours: An AP portable view is compared to the prior examination of earlier the same day at 0044 hours. There is no change in the position of the right internal jugular central venous catheter. Amoderate right pleural effusion appears to be slightly increased but differences may be positional.There is mild to moderate pulmonary vascular congestion. No pneumomediastinum is visualized. No other changes. Report Dictated on --- Final --- Dictated: 12/29/2021 8:11 am Dictating Physician: MD MCKENNA HARLAN Signed Date and Time: 12/29/2021 8:20 am Signed by: MD MCKENNA HARLAN Transcribed Date and Time: 12/29/2021 8:11 XR CHEST PORTABLE Result Date: 12/29/2021 Patient Name: JAIMIE MCGOVERN Diagnostic Radiology ACCESSION EXAM DATE/TIME PROCEDURE ORDERING PROVIDER [id number] 12/29/2021 00:49 EDT CR Chest Portable MD MACIEL ANDREW CPT code 24816 Reason For Exam (CR Chest Portable) patient with desaturation and tacypnea Report Chest one view HISTORY: Desaturation Right IJ central line. Moderate right pleural effusion. Adjacent right lower lung infiltrate. Cardiomegaly. Report Dictated on --- Final --- Dictated: 12/29/2021 0:47 am Dictating Physician: MD LIAO MALAY Signed Date and Time: 12/29/2021 0:47 am Signed by: MD LIAO MALAY Transcribed Date and Time: 12/29/2021 0:47 XR CHEST PORTABLE Result Date: 12/28/2021 Patient Name: JAIMIE MCGOVERN Diagnostic Radiology ACCESSION EXAM DATE/TIME PROCEDURE ORDERING PROVIDER [id number] 12/28/2021 12:22 EDT CR Chest Portable MD GONZALEZ DAVID CPT code 30837 Reason For Exam (CR Chest Portable) s/p R IJ CVC placement Report PORTABLE CHEST (Frontal View) History: Catheter placement Comparison: 12/28/2021, 0556 hours Findings: Frontal portable chest view shows the tip of newly inserted right IJ catheter overlies the right atrium/SVC junction. There is large right and small left pleural effusion. There are also right and smaller left basilar atelectasis/infiltrate. The lungs appear less congested compared to last exam. Theheart is borderline in size. There is no mediastinal widening, pneumothorax, or other significant interval change. Report Dictated on --- Final --- Dictated: 21:35 pm Dictating Physician: MD SALAZAR AHMAD Signed Date and Time: 12/28/2021 1:38 pm Signed by: MITCH ARAUZ MD, AHMAD Transcribed Date and Time: 12/28/2021 1:35 XR CHEST PORTABLE Result Date: 12/28/2021 Patient Name: JAIMIE MCGOVERN Diagnostic Radiology ACCESSION EXAM DATE/TIME PROCEDURE ORDERING PROVIDER [id number] 12/28/2021 05:56 EDT CR Chest Portable [id number] -MONIKA ARAUJO CPT code 67038 Reason For Exam (CR Chest Portable) pneumomediastinum ReportPORTABLE CHEST (Frontal View) History: Respiratory abnormality, pneumomediastinum, follow-up Comparison: 12/27/[address] Findings: Frontal portable chest view shows haziness throughout the right lung and to a lesser degree left lung base suggesting bilateral infiltrate/edema with moderate right and a small left pleural effusions. The heart is borderline in size. Compared to the chest CT of 12/27/2021, previously described pneumomediastinum could not be appreciated on the current radiographs (CTmore sensitive). Continued evaluation and follow-up recommended. Report Dictated on --- Final --- Dictated: 12/28/2021 8:18 am Dictating Physician: MD SALAZAR AHMAD Signed Date and Time: 12/28/2021 8:28 am Signed by: MD SALAZAR AHMAD Transcribed Date and Time: 12/28/2021 8:18 US GUIDE THORACENTESIS Result Date: 12/30/2021 Patient Name: JAIMIE MCGOVERN Ultrasound ACCESSION EXAM DATE/TIME PROCEDURE ORDERING PROVIDER [id number] 12/29/2021 16:07 EDT US Thora-Aspir Pleura w/ [id number] -GAYLE, Image MONIKA CPT code 99095 Reason For Exam (US Thora-Aspir Pleura w/ Image) Thoracentesis Right pleural effusion. Report PROCEDURE: Ultrasound-guided thoracentesis Procedural PersonnelAttending physician(s): Quinn Pastor MD Advanced practice provider(s): Nicola Rob PA-C Indication: Pleural effusion Additional clinical history: None Complications: No immediate complications. IMPRESSION: Successful ultrasound-guided right thoracentesis with drainage of 500 milliliters of cloudy sita-colored serous fluid. Attending physician was present for the entirety of the procedure. PROCEDURE SUMMARY: - Limited thoracic ultrasound - Ultrasound-guided thoracentesis - Additional procedure(s): None PROCEDURE DETAILS: Pre-procedure Consent: Informed consent for the procedure including risks, benefits and alternatives was obtained and time-out was performed prior to the procedure. Preparation: The site was prepared and draped using maximal sterile barrier technique including cutaneous antisepsis. Anesthesia/sedation None Limited thoracic ultrasound Limited thoracic ultrasound was performed using a curved transducer. A safe window for thoracentesis was identified. Moderate to large pleural effusion was seen on the sideof aspiration. The contralateral side was not investigated. Ultrasound Report Thoracentesis Local anesthesia was administered. Ultrasound was used to pick a safe access site. A permanent image was stored. The pleural space was accessed and fluid return confirmed position. The fluid was drained. Catheter placed: 5F Yueh Closure The catheter was removed. A sterile bandage was applied. Post-drainagehemithorax findings: Minimal effusion Additional Details Additional description of procedure: None E quipment details: None Specimens removed: Pleural fluid Estimated blood loss (mL): Less than 10 Report Dictated on --- Final --- Dictated: 12/29/2021 4:13 pm DictatingPhysician: MD PASTOR KEVIN Signed Date and Time: 12/30/2021 8:18 am Signed by: MD PASTOR KEVIN Transcribed Date and Time: 12/29/2021 4:14 Patient Active Problem List Diagnosis Pneumatosis of intestines Debility At risk for delirium Alcohol abuse Acute respiratory insufficiency Shortness of breath Pleural effusion on right Palliative care encounter Demand ischemia of myocardium (HCC) Pneumomediastinum (HCC) Elevated troponin ASSESSMENT: 76 yo F who presents with cecal pneumatosis and pneumomediastinum with low concern for esophageal source PLAN: Neuro/Spine: - alcohol withdraw symptoms resolving - scheduled Tylenol, Morphine IV prn, Oxy prn - Lido patch for right chest - CIWA scoring protocol for withdrawal (2-3 boxes of wine weekly) - folic acid and thiamine - 12/29 Phenobarb decreased to 16.25mg nightly - palliative consult, following for goals of care - geriatrics consult - Melatonin nightly HEENT: - no acute issues Cardiovascular: - MAP goal >65, no issues at this time - prn antihypertensives for SBP>160 - Hydralazine and Labetalol prn - 12/29 EKG: NSR 116, Qtc 461 - trop 0.124 from 0.162, stop trending (complaint of central CP upon admission) - Consult Cardiology -elevated troponin likely due to ischemic demand from acute illness Pulmonary: - R pleural effusion - 12/29 [facility] thoracentesis: 525ml bloody fluid - Lights criteria ordered and pending - goal O2 92% given COPD - 01/01 High Flow oxygen this am, wean - acapella, IS - duonebs q4h, 3% nebs TID - covid negative - 12/31 Procal elevated 6.23 from 3.68, repeat Q48hrs - 12/29 chest physiotherapy, contraindicated with pleural effusion and pneumomediastinum per RT - 12/31 CTA chest/abd/pelvis Large right and moderate left loculated pleural effusions with atelectasis of the right middle lobe and bilateral lower lobes. Multifocal infiltrate within the left more than right upper lobes. No evidence of pneumatosis intestinalis. -Daily CXR: Multifocal opacities in both lungs, greater on the right and most notable in the upper lobes, not significantly changed. Large right pleural effusion again present. Small left pleural effusion. - 01/01 Right thoracentesis with pigtail placement to water seal - 01/01 Thoracentesis with right pigtail to water seal (440cc) - 01/01 Thoracentesis culture pending - Consult Pulmonology: -volume overload-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 -Scattered bilateral patchy infiltrates L >R - will continue to monitor clinically and follow fluid cultures- currently on zosyn for intra-abdominal infection, prior pleural fluid culture negative -COPD presumed- follow up outpatient with Pulmonology for PFT and inhaler therapy - 01/01 Lasix 20mg IV once - Cardiothoracic consult: -Thoracentesis suggestive of parapneumonic effusion with negative gram stain and some improvement on AM CXR -WBC remains normal -Cardiothoracic surgery will sign off. Thank you for this consult. We appreciate the opportunity tocare for this patient. Please reach out with questions and concerns FEN/GI: - 01/01 Speech eval: Soft/easy chew diet - lactic acid 1.0, stop trending - central line placed for labs and IVF - Bowel regimen held, BMX4 overnight - Zofran prn - Protonix IV daily - 12/31 hypokalemia 2.9, D51/2NS w 20KCL@50 - 01/01 K 4.1 from 2.9 - 12/31 add KCL 40meq BID, mag bolus 2gm IV - 01/01 Discontinue daily KUBs - Serial abdominal exams - General Surgery consult: -serial abdominal exams, currently non-acute - contiune IVF - CTS on board no intervention of pneumomediastinum - other management per SICU - ACS to follow while SICU team also following, will await floor transfer to assume primary care thereafter. : - Urinary retention, bladder scan for 400cc 12/28 - Costa 12/29 - urine antigens negative - Strict I&Os Heme: - Hgb: stable 10.6 from 10.2 ID: - empiric Zosyn with cecal pneumatosis - thoracentesis 12/29 given productive cough and chest pain - Thoracentesis fluid culture, gram stain with no organisms seen - MRSA nasal swab pending - Blood cultures, no growth to date (second culture likely contamination) Endo: - hx hypothyroidism - TSH, WNL - Home Synthroid 50mcg daily - hypoglycemia protocol Lines/Devices: - Right IJ central line - Costa Prophylaxis: DVT: Lovenox Has DVT PPX been started? Yes If no, why? started GI: discontinue Protonix Pressure Ulcer: turns per nursing, patient ambulatory Musculoskeletal: - no acute issues - PT/OT recs SNF WB Status: RUE:AT LUE: AT RLE: AT LLE: AT Medications Reconciled- Yes [x] NO [], why Disposition: Continue T2 care, monitor respiratory status closely. Returned to high flow from 3L NC. Discontinue daily KUB, continue daily CXRs. Leukocytosis 11.8 from 7.8. Consult Pulmonology. [id number] IV once. Obtain peripheral IV and discontinue RIJ. Associated attestation - Erendira Maciel MD - 01/01/2022 9:12 PM EDT ~~~~~~~~~~~~~~~~~~~~~~~~~~~~~~~~~~~~~~~~~~~~~~~~~~~~~~~~~~~~~ ATTENDING ADDENDUM Hospital Problems Last Modified POA * (Principal) Pneumomediastinum (HCC) 12/29/2021 Yes Demand ischemia of myocardium (HCC) 12/29/2021 Yes Pneumatosis of intestines 12/27/2021 Yes Declining functional status 01/01/2022 Yes At risk for delirium 12/28/2021 Yes Alcohol abuse 12/28/2021 Yes Acute respiratory insufficiency 12/29/2021 Yes Shortness of breath 12/29/2021 Yes Pleural effusion on right 01/01/2022 Yes Palliative care encounter 12/29/2021 Yes Elevated troponin 12/30/2021 Yes Severe malnutrition (HCC) (Chronic) 01/01/2022 Yes Alcoholic cirrhosis (HCC) 01/01/2022 Yes Hypoxia 01/01/2022 Yes Acute encephalopathy 01/01/2022 Yes Cognitive deficits 01/01/2022 Yes Constipation, slow transit 01/01/2022 Yes Debility 01/01/2022 Yes I independently saw the above patient and reviewed the recent events, imaging, labs, vital signs; Iperformed a physical exam and ROS on the same date of service as above. My findings agree with the above note except for any details corrected below. A complete review of systems was obtained and is negative except as stated in HPI. 76 yo F who presents with cecal pneumatosis and pneumomediastinum Thoracentesis with CT placed - H2O seal Changed phenobarb to nightly Lasix 20 for worsening respiratory status Neurological system - Acute encephalopathy likely metabolic --> ETOH withdrawal --> phenobarb BID likely switch to nightly - appreciate pall recs - Multimodal pain control - Delirium precautions, melatonin nightly Circulatory system - elevated trop - resolved - appreciate cards consult --> monitor, demand - SBP < 180 - pneumomediastinum improved Respiratory system - repeat Thoracentesis right for large effusion - CT placed -> CT to water seal - follow up cultures - neg - acute respiratory insufficiency - 92% - Aggressive pulmonary hygiene - pulm consult - suspect underlying lung disease --> COPD, appreciate recs --> lasix + aldactone --> maintenance inhalers Gastrointestinal system - 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 - easy chew - LFTs wnl - history of etoh - Pneumatosis --> resolved on CT - +BM - Bowel regimen - CTS --> no injury to esophagus --> pneumomediastinum likely COPD Renal function - urinary retention - Costa - lactic acidosis - resolved - D5 1/2NS 50 --> DC Immunologic system - Monitor for fevers - zosyn x 7 days - trend procalc Hematologic system - Monitor hemoglobin Endocrine system - Monitor glucose - hypoglycemic protocol - history of hypothyroid --> TSH wnl --> restart synthroid 50 mcg Integumentary system (GI and cutaneous) - Skin checks Musculoskeletal system - PTOT Ppx - Lovenox - protonix --> DC Critical Care time spent 39 min. The time involved in the performance of this care was exclusive ofseparately billable procedures, teaching time and treating other patients. The time was spent personally by the attending physician for the following activities: examination of the patient, ordering and/or performing treatment, reviewing the laboratory and radiographic studies, and if applicable, ventilator management and blood gas interpretation. Critical Care was necessary because of an illness or injury that actively impaired one or more vital organ systems such that there was a high probability of imminent life treatening deterioration in the patient's condition. The following organ systems are involved: Neurologic, Respiratory, ID Erendira Maciel MD Division of Trauma Department of Surgery [facility] Pager: [phone] ~~~~~~~~~~~~~~~~~~~~~~~~~~~~~~~~~~~~~~~~~~~~~~~~~~~~~~~~~~~~~ This note may have been dictated using [employer] Edition 2.6 and/or [employer] Voice Recognition Feature. The document was proofread; however, unrecognized voice recognition flight dispatcher errors may be present. * Mily Duarte - 12/31/2021 12:37 PM EDT Physical Therapy Facility/Department: [facility] ICU T2 Physical Therapy Initial Assessment Name: Jaimie Mcgovern : 1945 Date of Service: 12/31/2021 Discharge Recommendations: Subacute/Jail Facility Patient Diagnosis(es): The encounter diagnosis was Pneumatosis of intestines. Past Medical History: has a past medical history of Alcoholic cirrhosis (HCC), Demand ischemia (HCC), Hypothyroid, and Pneumomediastinum (HCC). Past Surgical History: has a past surgical history that includes Cholecystectomy; Appendectomy; andHysterectomy. Assessment Body Structures, Functions, Activity Limitations Requiring Skilled Therapeutic Intervention: Decreased balance;Decreased endurance;Decreased functional mobility Assessment: Pt completes bed mobility with minimal assistance this date, hand held assist and trunkassist to sit EOB. Pt requires Antonia for transfers and lateral ambulation this date with fatigue limiting activity. Recommend discharge to SNF at this time. Treatment Diagnosis: weakness Therapy Prognosis: Fair Decision Making: Medium Complexity Requires PT Follow-Up: Yes Activity Tolerance Activity Tolerance: Patient limited by fatigue;Patient limited by endurance Plan Plan Plan: 2-3 times per week Plan weeks: 4 weeks Current Treatment Recommendations: Strengthening, Balance training, Functional mobility training, Transfer training, Gait training, Endurance training, Neuromuscular re-education, Safety education & training, Patient/Caregiver education & training, Equipment evaluation, education, & procurement, Therapeutic activities Safety Devices Type of Devices: Bed alarm in place, All fall risk precautions in place, Call light within reach, Patient at risk for falls, Left in bed, Nurse notified Restraints Restraints Initially in Place: No Restrictions Restrictions/Precautions Restrictions/Precautions: Fall Risk, Bed Alarm Required Braces or Orthoses?: No Position Activity Restriction Other position/activity restrictions: VANNA, julissa, farrah Subjective General Chart Reviewed: Yes Patient assessed for rehabilitation services?: Yes Family / Caregiver Present: No Diagnosis: Pneumatosis of intestines Follows Commands: Within Functional Limits Subjective Subjective: Pt supine in bed upon arrival. Per nurse, pt going for CT scan soon but OK to be seen. Social/Functional History Social/Functional History Lives With: Alone Type of Home: (Senior Living) Home Layout: One level Home Access: Level entry Bathroom Shower/Tub: Tub/Shower unit Bathroom Toilet: Standard Bathroom Equipment: Grab bars in shower, Shower chair Bathroom Accessibility: Accessible Home Equipment: Cane, Walker, rolling (Pt unclear how often she is using these devices.) Receives Help From: Family ADL Assistance: Independent Homemaking Assistance: Needs assistance Homemaking Responsibilities: No Ambulation Assistance: Independent Transfer Assistance: Independent Active [employer] Dies Loader: No Mode of Transportation: Family Occupation: Retired Additional Comments: Pt poor historian this date and states she is confused at the beginning of session. Vision/Hearing Cognition Orientation Orientation Level: Oriented to place;Oriented to person;Disoriented to time Cognition Following Commands: Follows one step commands with increased time;Follows one step commands with repetition Attention Span: Attends with cues to redirect Initiation: Requires cues for some Sequencing: Requires cues for some Objective Strength RLE Strength RLE: WFL Strength LLE Strength LLE: WFL Bed mobility Supine to Sit: Minimal assistance (hand held assist and trunk assist to sit EOB.) Sit to Supine: Minimal assistance (min assist with legs) Scooting: Minimal assistance (increased time taken to complete due to frequent coughing.) Bed Mobility Comments: HOB elevated Transfers Sit to Stand: Minimal Assistance Stand to sit: Minimal Assistance Lateral Transfers: Minimal Assistance Comment: x2 to FWW. verbal cues for foot placement and directioning. first stand for 3 min while bed sheets are changed. second stand for 30 sec before pt fatigued. Ambulation Surface: level tile Device: Rolling Walker Assistance: Minimal assistance Quality of Gait: staggering, small steps, rounded shoulders, head down posture Gait Deviations: Slow Leighann;Decreased step length;Decreased step height;Staggers Distance: 5 steps to right, 5 steps to left More Ambulation?: Yes Ambulation 2 Surface - 2: level tile Device 2: Rolling Walker Assistance 2: Minimal assistance Quality of Gait 2: staggering, small steps, rounded shoulders, head down posture Gait Deviations: Slow Leighann;Decreased step length;Decreased step height;Staggers Distance: 3 steps to left to be able to sit higher in bed. Comments: pt fatigued quickly after completion. Stairs/Curb Stairs?: No Balance Posture: Fair Sitting - Static: Good Sitting - Dynamic: Fair;+ Standing - Static: Fair;+ Standing - Dynamic: Fair;+ Comments: pt leans significantly forward when coughing while sitting EOB, Antonia to prevent from going too far forward. OutComes Score AM-PAC Score AM-PAC Inpatient Mobility Raw Score : 15 (12/31/211234) AM-PAC Inpatient T-Scale Score : 39.45 (12/31/211234) Mobility Inpatient CMS 0-100% Score: 57.7 (12/31/211234) Mobility Inpatient CMS G-Code Modifier : CK (12/31/211234) Tinneti Score Goals Short Term Goals Time Frame for Short term goals: 4 weeks Short term goal 1: bed mobility, independent Short term goal 2: transfers with/without device, modified independent Short term goal 3: ambulation 50ft with/without device, modified independent Patient Goals Patient goals : none stated Education Patient Education Education Given To: Patient Education Provided: Role of Therapy;Plan of Care Education Method: Verbal Barriers to Learning: None Patient's Physical Therapy Plan of Care supervision is transferred to [facility] Rehab Department Physical Therapist. Goals and/or treatment plan was established in collaboration with patient/family/other representatives. Therapy Time Individual Concurrent Group Co-treatment Time In 1043 Time Out 1058 Minutes 15 Timed Code Treatment Minutes: 15 Minutes This physical therapist wore appropriate PPE during therapy session. Mily Duarte, SPT * JOHN Ruiz - 12/31/2021 12:13 PM EDT Facility/Department: [facility] ICU T2 Dysphagia Treatment Note NAME: Jaimie Mcgovern : 1945 Patient Diagnosis(es): Patient Active Problem List Diagnosis Pneumatosis of intestines Debility At risk for delirium Alcohol abuse Acute respiratory insufficiency Shortness of breath Pleural effusion on right Palliative care encounter Demand ischemia of myocardium (HCC) Pneumomediastinum (HCC) Elevated troponin Allergies: Allergies Allergen Reactions Latex Azithromycin did not work Bisoprolol-Hydrochlorothiazide did not work Onset Date: 12/27/2021 Oxygen Level: O2 Device: nasal canula Liters of Oxygen: 3 liters Current Diet Level: puree with thin liquids CXR 12/29/2021 Lungs: Abnormal. Persistent infiltrate densities and volume loss. Enlarging right effusion.. Limited due to technique. Consider follow-up with PA and lateral chest for persistent symptoms. Compensatory Techniques [x]Small bolus [x]Alternate bites/ sips [x]Position patient upright Pain: RN managing S: More alert today and cooperative. Patient is awaiting a CT of the abdomen but is not NPO. O: Assess tolerance of current menu and assess potential for diet upgrade A: Patient taking puree and thin liquids from her lunch tray without difficulty. Patient has adequate oral motor skills and natural dentition. Patient able to self feed a saltine cracker. Mastication, bolus formation and AP transit are WFL. Patient achieves full oral clearance. Patient is able to drink thin liquids without clinical evidence of aspiration. Patient does have a baseline cough that is witnessed x 1 only. Patient states that the cough "comes and goes". Patient denies dysphagia. [] Goal met [] Progressing as expected [] Progressing slower than expected [] Medical status inhibits participation [] Goals not addressed this session [] Goals revised this session [] Unable to show any progress towards functional goals [x] Progress towards functional goal is gradual / fair Routine Education: Results and recommendations from this session were discussed with the patient / RN including: diet recommendations (See below), swallowing strategies/compensatory techniques (see above), and treatment goals in the dysphagia plan of care. Patient shows fair / good level of comprehension. Family were available for session / education. P: Please upgrade to an Easy To Chew Menu with Thin Liquids. OK for PO meds with water/wastewater engineer. Willcontinue the dysphagia plan of care to ensure patient safety with the upgraded menu. Time Out: 1210 Session time: 20 minutes An N95 mask and gloves were worn throughout this session. * Dex Puga MD - 12/31/2021 10:48 AM EDT Images from the original note were not included. Department of General Surgery Daily Progress Note ADMIT DATE: 12/27/2021 TODAY'S DATE: 12/31/2021 SUBJECTIVE: ALBERTO Confused overnight per RN Had BM yesterday per RN, believes it was formed Complains of persistent chest pain OBJECTIVE: VITALS: BP (!) 144/74 Pulse 93 Temp 100.1 F (37.8 C) (Temporal) Resp 24 Ht 5' (1.524 m) Wt 123 lb 9.6 oz (56.1 kg) SpO2 96% BMI 24.14 kg/m INTAKE/OUTPUT: Date 12/31/21 0000 - 12/31/21 2359 Shift 7823-4015 4235-3087 7511-0582 24 Hour Total INTAKE P.O.(mL/kg/hr) 0(0) 0 I.V.(mL/kg) 397(7.1) 397(7.1) Shift Total(mL/kg) 397(7.1) 397(7.1) OUTPUT Urine(mL/kg/hr) 950(2.1) 300 1250 Shift Total(mL/kg) 950(16.9) 300(5.4) 1250(22.3) Weight (kg) 56.1 56.1 56.1 56.1 I/O last 3 completed shifts: In: 3600 [P.O.:440; I.V.:2500; IV Piggyback:660] Out: 3265 [Urine:3265] I/O this shift: In: - Out: 300 [Urine:300] PHYSICAL EXAM: Gen: NAD, A&Ox3, pain well controlled Heart: RRR, well perfused Lungs: symmetric chest rise, normal work of breathing, breath sounds b/l Abd: soft, focally tender in the RLQ, no reobund or guarding. Non tense Ext: no c/c/e no gross deformities Skin: warm, well perfused, no obvious rashes, cellulitis or gross discoloration LABS CBC: Recent Labs 12/29/21 0148 12/30/21 0617 12/31/21 0428 WBC 10.6 6.8 7.8 HGB 12.1 10.2* 10.6* HCT 35.3 29.7* 32.2* PLT 178 161 193 BMP: Recent Labs 12/30/21 0617 12/30/21 0731 12/31/21 0258 NA 136 136 137 K 2.8* 2.7* 2.9* CL 107 108* 111* CO2 24 23 23 BUN 8* 8* 5* CREATININE 0.57 0.53 0.49* GLUCOSE 61* 70 163* Hepatic: Recent Labs 12/30/21 0731 12/31/21 0258 AST 42 40 ALT 11 12 BILITOT 1.1 0.9 ALKPHOS 52 60 Current Inpatient Medications Scheduled Meds: potassium chloride 40 mEq Oral BID polyethylene glycol 17 g Oral Daily levothyroxine 50 mcg Oral Daily folic acid IVPB 1 mg IntraVENous Daily PHENobarbital 16.25 mg IntraVENous 3 times per day sodium chloride (Inhalant) 4 mL Nebulization TID thiamine (VITAMIN B1) IVPB 500 mg IntraVENous TID ipratropium-albuterol 1 ampule Inhalation Q4H WA pantoprazole (PROTONIX) 40 mg injection 40 mg IntraVENous Daily piperacillin-tazobactam 4,500 mg IntraVENous Q6H sodium chloride flush 5-40 mL IntraCATHeter Q8H sodium chloride flush 5-40 mL IntraVENous 2 times per day acetaminophen 1,000 mg Oral 3 times per day lidocaine 1 patch TransDERmal Daily sennosides-docusate sodium 1 tablet Oral BID bisacodyl 5 mg Oral Daily enoxaparin 40 mg SubCUTAneous Daily Continuous Infusions: dextrose dextrose 5% and 0.45% NaCl with KCl 20 mEq 100 mL/hr at 12/31/21 0950 sodium chloride PRN Meds:bisacodyl, glucose, dextrose, glucagon (rDNA), dextrose, melatonin, labetalol, hydrALAZINE, sodium chloride flush, sodium chloride flush, sodium chloride, oxyCODONE OR oxyCODONE, morphine OR morphine, ondansetron, [Held by provider] LORazepam OR [Held by provider] LORazepam OR [Held by provider] LORazepam OR [Held by provider] LORazepam OR [Held by provider] LORazepam OR [Held by provider] LORazepam OR [Held by provider] LORazepam OR [Held by provider] LORazepam ASSESSMENT AND PLAN: 76 y.o. 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 Will discuss with Dr. Kyung PUGA MD General Surgery PGY-2 12/31/21 10:48 AM Pager # [phone] This note may have been dictated using [employer] Edition 2.6 and/or [employer] Voice Recognition Feature. The document was proofread; however, unrecognized voice recognition flight dispatcher errors may be present. * Kristopher Todd, DESTINY - MOLD MAKING [employer] SHEETS SUPERVISOR - 12/31/2021 9:37 AM EDT Images from the original note were not included. [facility] Geriatric Medicine Inpatient Consult Service Admission Date: 12/27/2021 Assessment Principal Problem: Pneumomediastinum (HCC) Active Problems: Demand ischemia of myocardium (HCC) Pneumatosis of intestines Debility At risk for delirium Alcohol abuse Acute respiratory insufficiency Shortness of breath Pleural effusion on right Palliative care encounter Elevated troponin Resolved Problems: * No resolved hospital problems. * Plan Debility -acute on chronic debility -acute reasons: pleural effusion, pneumomediastinum, cecal pneumatosis -chronic etiology: physical deconditioning, alcohol use, tobacco use, advanced age -PT and OT - will help provide discharge recommendations. High risk for needing facility based rehab following hospitalization -patient reports good family and community support. Unable to obtain collateral information from daughter today to see if she was having more difficulty managing at home -would benefit from a more thorough cognitive evaluation when she is physically feeling better. At Risk for Delirium -risk factors include: age, pain, pain medication, frailty, alcohol use, acute illness -monitor bowels/ bladder -adequate pain control -delirium protocol -recommend scheduling melatonin at night. Alcohol Abuse -ciwa protocol per primary team --Consider addiction medicine consult for additional assistance managing phenobarbital and use of lorazepam per CIWA scale. Addendum Med Recommendations --Consider need for vitamin B12 supplementation with megaloblastic anemia and Vitamin B12 level towards the lower end of normal. --Patient has two scheduled stimulant laxatives ordered: bisacodyl and senna- docusate. Recommend discontinuing scheduled bisacodyl. Follow-up: 1-2 days Subjective Chief Complaint: abd/chest pain, shortness of breath Geriatrics consulted for frailty, lives independently, heavy ETOH/Tobacco use HPI- The patient is known to me. 76 y.o. year-old female admitted to acute care from home for abd/chest pain, sob. Diagnosed with cecal pneumatosis/ pneumomediastinum. Interval History: Remains on ICU. T223 No events overnight. Hasn't been eating much. IV fluids increased. CT of chest, abd, pelvis today. Large Bm this morning. Reports patient will often repeat questions. Pt is awake, alert. Oriented to self, place only. Says she's tired and 'not sure how I feel today'. C/o pain in R chest/abd and slight shortness of breath. Has decreased appetite, doesn't feel like eating much. ( Breakfast tray in front of her, untouched). No urinary complaints, Bm this morning. Await PT recommendations Review of Systems Constitutional: Positive for appetite change and fatigue. HENT: Negative for sore throat and trouble swallowing. Respiratory: Positive for cough and shortness of breath. Gastrointestinal: Negative for abdominal pain and constipation. Genitourinary: Negative for difficulty urinating and dysuria. Neurological: Negative for dizziness and headaches. Psychiatric/Behavioral: Positive for confusion. Negative for agitation. Objective BP (!) 171/80 Pulse 92 Temp 100.1 F (37.8 C) (Temporal) Resp (!) 35 Ht 5' (1.524 m) Wt 123 lb 9.6 oz (56.1 kg) SpO2 100% BMI 24.14 kg/m Intake/Output Summary (Last 24 hours) at 12/31/2021 0937 Last data filed at 12/31/2021 0800 Gross per 24 hour Intake 2600 ml Output 2350 ml Net 250 ml Patient Vitals for the past 96 hrs (Last 3 readings): Weight 12/30/21 0400 123 lb 9.6 oz (56.1 kg) 12/27/21 1040 115 lb (52.2 kg) Current Facility-Administered Medications: potassium chloride (KLOR-CON) packet 40 mEq, 40 mEq, Oral, BID bisacodyl (DULCOLAX) suppository 10 mg, 10 mg, Rectal, Daily PRN Glucose (TRUEPLUS) oral gel 15 g, 15 g, Oral, PRN dextrose 50 % IV solution, 12.5 g, IntraVENous, PRN glucagon (rDNA) injection 1 mg, 1 mg, IntraMUSCular, PRN dextrose 5 % solution, 100 mL/hr, IntraVENous, PRN polyethylene glycol (GLYCOLAX) packet 17 g, 17 g, Oral, Daily levothyroxine (SYNTHROID) tablet 50 mcg, 50 mcg, Oral, Daily dextrose 5 % and 0.45 % NaCl with KCl 20 mEq infusion, , IntraVENous, Continuous folic acid 1 mg in sodium chloride 0.9 % 50 mL IVPB, 1 mg, IntraVENous, Daily PHENobarbital (LUMINAL) injection 16.25 mg, 16.25 mg, IntraVENous, 3 times per day melatonin SL liquid 0.3 mg, 0.3 mg, SubLINGual, Nightly PRN sodium chloride (Inhalant) 3 % nebulizer solution 4 mL, 4 mL, Nebulization, TID thiamine (B-1) 500 mg in sodium chloride 0.9 % 100 mL IVPB, 500 mg, IntraVENous, TID ipratropium-albuterol (DUONEB) nebulizer solution 1 ampule, 1 ampule, Inhalation, Q4H WA labetalol (NORMODYNE;TRANDATE) injection 10 mg, 10 mg, IntraVENous, Q6H PRN hydrALAZINE (APRESOLINE) injection 10 mg, 10 mg, IntraVENous, Q6H PRN pantoprazole (PROTONIX) 40 mg in sodium chloride (PF) 10 mL injection, 40 mg, IntraVENous, Daily piperacillin-tazobactam (ZOSYN) 4500 mg in dextrose 100 mL IVPB extended infusion (premix), 4,500 mg, IntraVENous, Q6H sodium chloride flush 0.9 % injection 5-40 mL, 5-40 mL, IntraCATHeter, Q8H sodium chloride flush 0.9 % injection 5-40 mL, 5-40 mL, IntraCATHeter, PRN sodium chloride flush 0.9 % injection 5-40 mL, 5-40 mL, IntraVENous, 2 times per day sodium chloride flush 0.9 % injection 5-40 mL, 5-40 mL, IntraVENous, PRN 0.9 % sodium chloride infusion, , IntraVENous, PRN acetaminophen (TYLENOL) tablet 1,000 mg, 1,000 mg, Oral, 3 times per day oxyCODONE (ROXICODONE) immediate release tablet 5 mg, 5 mg, Oral, Q4H PRN OR oxyCODONE (ROXICODONE) immediate release tablet 10 mg, 10 mg, Oral, Q4H PRN morphine sulfate (PF) injection 2 mg, 2 mg, IntraVENous, Q2H PRN OR morphine sulfate (PF) injection 4 mg, 4 mg, IntraVENous, Q2H PRN lidocaine 4 % external patch 1 patch, 1 patch, TransDERmal, Daily sennosides-docusate sodium (SENOKOT-S) 8.6-50 MG tablet 1 tablet, 1 tablet, Oral, BID bisacodyl (DULCOLAX) EC tablet 5 mg, 5 mg, Oral, Daily ondansetron (ZOFRAN) injection 4 mg, 4 mg, IntraVENous, Q6H PRN enoxaparin (LOVENOX) injection 40 mg, 40 mg, SubCUTAneous, Daily [Held by provider] LORazepam (ATIVAN) tablet 1 mg, 1 mg, Oral, Q1H PRN OR [Held by provider] LORazepam (ATIVAN) injection 1 mg, 1 mg, IntraVENous, Q1H PRN OR [Held by provider] LORazepam (ATIVAN) tablet 2 mg, 2 mg, Oral, Q1H PRN OR [Held by provider] LORazepam (ATIVAN) injection 2 mg, 2mg, IntraVENous, Q1H PRN OR [Held by provider] LORazepam (ATIVAN) tablet 3 mg, 3 mg, Oral, Q1H PRN OR [Held by provider] LORazepam (ATIVAN) injection 3 mg, 3 mg, IntraVENous, Q1H PRN OR [Held by provider] LORazepam (ATIVAN) tablet 4 mg, 4 mg, Oral, Q1H PRN OR [Held by provider] LORazepam (ATIVAN) injection 4 mg, 4 mg, IntraVENous, Q1H PRN Physical Exam Constitutional: No acute distress, thin, frail, disheveled Psych: Mood and affect Lethargic. Poor eye contact. Cardiovascular: Regular rate and rhythm, no murmur, no BLE edema Pulmonary/Chest: Diminished to auscultation bilaterally, Increased respiratory effort, no coughing noted Abdominal: Soft, not distended, no tenderness to palpation, BS present, Neurological: alert, inattentive, speech is clear but vague , oriented to place and self, follows commands, no tremor and no rigidity Skin: warm and dry, no visible rashes or wounds Labs and Imaging: Recent Results (from the past 24 hour(s)) POCT Glucose Collection Time: 12/30/21 9:42 AM Result Value Ref Range POC Glucose 70 70 - 100 mg/dL POC Glucose, Whole Blood Collection Time: 12/30/21 1:19 PM Result Value Ref Range POC Glucose <50 (L) 70 - 100 mg/dL Confirmation see below NA POCT Glucose Collection Time: 12/30/21 1:51 PM Result Value Ref Range POC Glucose 63 (L) 70 - 100 mg/dL POCT Glucose Collection Time: 12/30/21 2:18 PM Result Value Ref Range POC Glucose 210 (H) 70 - 100 mg/dL POCT Glucose Collection Time: 12/30/21 2:19 PM Result Value Ref Range POC Glucose 163 (H) 70 - 100 mg/dL POCT Glucose Collection Time: 12/30/21 9:45 PM Result Value Ref Range POC Glucose 141 (H) 70 - 100 mg/dL Basic Metabolic Panel w/ Reflex to MG Collection Time: 12/31/21 2:58 AM Result Value Ref Range Sodium 137 135 - 145 mmol/L Potassium 2.9 (L) 3.5 - 5.1 mmol/L Chloride 111 (H) 98 - 107 mmol/L CO2 23 22 - 30 mmol/L Anion Gap 2 (L) 3 - 13 mmol/L Glucose 163 (H) 70 - 100 mg/dL BUN 5 (L) 9 - 20 mg/dL Creatinine 0.49 (L) 0.52 - 1.25 mg/dL eGFR >90.0 >60 mL/min EGFR IF NonAfrican Trin[place]adian >90.0 >60 mL/min Calcium 7.4 (L) 8.4 - 10.4 mg/dL Procalcitonin Collection Time: 12/31/21 2:58 AM Result Value Ref Range Procalcitonin 6.23 (H) 0.00 - 0.09 ng/mL Interpretation See Below NA Magnesium Collection Time: 12/31/21 2:58 AM Result Value Ref Range Magnesium 1.9 1.6 - 2.3 mg/dL Hepatic Function Panel Collection Time: 12/31/21 2:58 AM Result Value Ref Range Albumin,Serum 2.3 (L) 3.5 - 5.0 g/dL Total Protein 4.8 (L) 6.3 - 8.2 g/dL Total Bilirubin 0.9 0.2 - 1.3 mg/dL Bilirubin, Direct 0.0 0.0 - 0.3 mg/dL Alkaline Phosphatase 60 38 - 126 U/L ALT 12 0 - 34 U/L AST 40 15 - 46 U/L CBC with Auto Differential Collection Time: 12/31/21 4:28 AM Result Value Ref Range WBC 7.8 3.6 - 10.7 10*3/uL RBC 3.02 (L) 3.80 - 5.20 10*6/uL Hemoglobin 10.6 (L) 11.7 - 16.0 g/dL Hematocrit 32.2 (L) 35.0 - 47.0 % MCV 106.5 (H) 79.0 - 98.0 fL MCH 35.2 (H) 26.0 - 34.0 pg MCHC 33.1 32.0 - 36.0 % RDW 16.6 (H) 11.5 - 14.5 % Platelets 193 140 - 440 10*3/uL MPV 6.8 (L) 7.4 - 12.4 fL Granulocytes % 85.2 (H) 40.0 - 80.0 % Lymphocyte % 5.4 (L) 20.0 - 40.0 % Monocytes 9.0 2.0 - 10.0 % Eosinophils 0.2 (L) 1.0 - 6.0 % Basophils 0.2 0.0 - 2.0 % Absolute Neut # 6.4 1.8 - 7.0 10*3/uL Absolute Lymph # 0.4 (L) 1.0 - 4.3 10*3/uL Absolute [place] # 0.7 0.0 - 0.8 10*3/uL Absolute Eos # 0.0 0.0 - 0.5 10*3/uL Absolute Baso # 0.0 0.0 - 0.2 10*3/uL Lab Results Component Value Date TSH 2.263 12/29/2021 Lab Results Component Value Date [id number] 12/30/2021 No results found for: VITD25 Reviewed: active problem list, medication list, lab results, imaging * DESTINY Philip CNP - 12/31/2021 6:13 AM EDT Daily SICU Progress Note Nurse Practitioner 12/31/2021 6:13 AM Admit Date: 12/27/2021 Post Hospital Day 4 History of Present illness: 76 y.o. female with significant past medical history of cirrhosis, COPD, hypothyroidism who presents with R shoulder, R chest, and RUQ pain. Patient received CT scan at [place] [facility] and was transferred here with concern for cecal pneumatosis as well as pneumomediastinum. PROCEDURES: 12/29 right thoracentesis-525ml bloody fluid INCIDENTAL FINDINGS: none CHIEF COMPLAINT: chest pain, abdominal pain PREVIOUS 24 HOUR EVENTS: High flow oxygen requirements, wean Decrease phenobarb to BID CTA chest/abd/pelvis, continued chest pain/abd pain Consults: IP CONSULT TO GENERAL SURGERY IP CONSULT TO GERIATRICS IP CONSULT TO PALLIATIVE CARE IP CONSULT TO DIETITIAN IP CONSULT TO CARDIOLOGY MEDICATIONS: Current Facility-Administered Medications Medication Dose Route Frequency Provider Last Rate Last Admin Glucose (TRUEPLUS) oral gel 15 g 15 g Oral PRN DESTINY Philip CNP dextrose 50 % IV solution 12.5 g IntraVENous PRN DESTINY Philip CNP 12.5 g at 12/30/21 1351 glucagon (rDNA) injection 1 mg 1 mg IntraMUSCular PRN DESTINY Philip CNP dextrose 5 % solution 100 mL/hr IntraVENous PRN DESTINY Philip CNP polyethylene glycol (GLYCOLAX) packet 17 g 17 g Oral Daily DESTINY Philip CNP 17 g at 12/30/21 1230 levothyroxine (SYNTHROID) tablet 50 mcg 50 mcg Oral Daily DESTINY Philip CNP 50 mcg at 12/30/21 1230 dextrose 5 % and 0.45 % NaCl with KCl 20 mEq infusion IntraVENous Continuous Aneil Chayo Zelaya MD 50 mL/hr at 12/30/212234 Rate Verify at 12/30/212234 folic acid 1 mg in sodium chloride 0.9 % 50 mL IVPB 1 mg IntraVENous Daily DESTINY Philip CNP Stopped at 12/30/21925 PHENobarbital (LUMINAL) injection 16.25 mg 16.25 mg IntraVENous 3 times per day DESTINY Philip CNP 16.25 mg at 12/30/21 2347 bisacodyl (DULCOLAX) suppository 10 mg 10 mg Rectal Daily DESTINY Philip CNP 10 mg at 12/30/21 100 melatonin SL liquid 0.3 mg 0.3 mg SubLINGual Nightly PRN DESTINY Philip CNP sodium chloride (Inhalant) 3 % nebulizer solution 4 mL 4 mL Nebulization TID DESTINY Philip 4 mL at 12/30/212019 thiamine (B-1) 500 mg in sodium chloride 0.9 % 100 mL IVPB 500 mg IntraVENous TID DESTINY Philip CNP Stopped at 12/30/21 234 ipratropium-albuterol (DUONEB) nebulizer solution 1 ampule 1 ampule Inhalation Q4H DC Monika Araujo MD 1 ampule at 12/30/212019 labetalol (NORMODYNE;TRANDATE) injection 10 mg 10 mg IntraVENous Q6H PRN Monika Araujo MD 10 mg at 12/29/21 010 hydrALAZINE (APRESOLINE) injection 10 mg 10 mg IntraVENous Q6H PRN Monika Araujo MD pantoprazole (PROTONIX) 40 mg in sodium chloride (PF) 10 mL injection 40 mg IntraVENous Daily Monika Araujo MD 40 mg at 12/30/21 0827 piperacillin-tazobactam (ZOSYN) 4500 mg in dextrose 100 mL IVPB extended infusion (premix) 4,500 mgIntraVENous Q6H Yariel Beasley MD 33.3 mL/hr at 12/31/21 0435 4,500 mg at 12/31/21 0435 sodium chloride flush 0.9 % injection 5-40 mL 5-40 mL IntraCATHeter Q8H Wale Christie MD 10 mL at 12/31/21 0251 sodium chloride flush 0.9 % injection 5-40 mL 5-40 mL IntraCATHeter PRN Wale Christie MD sodium chloride flush 0.9 % injection 5-40 mL 5-40 mL IntraVENous 2 times per day Monika Araujo MD 10 mL at 12/30/21 2140 sodium chloride flush 0.9 % injection 5-40 mL 5-40 mL IntraVENous PRN Monika Araujo MD 0.9 % sodium chloride infusion IntraVENous PRN Monika Araujo MD acetaminophen (TYLENOL) tablet 1,000 mg 1,000 mg Oral 3 times per day Monika Araujo MD 1,000 mg at 12/30/21 2358 oxyCODONE (ROXICODONE) immediate release tablet 5 mg 5 mg Oral Q4H PRN Monika Araujo MD 5 mg at 12/30/21 0629 Or oxyCODONE (ROXICODONE) immediate release tablet 10 mg 10 mg Oral Q4H PRN Monika Araujo MD morphine sulfate (PF) injection 2 mg 2 mg IntraVENous Q2H PRN Monika Araujo MD Or morphine sulfate (PF) injection 4 mg 4 mg IntraVENous Q2H PRN Monika Araujo MD 4 mg at 12/27/21 2150 lidocaine 4 % external patch 1 patch 1 patch TransDERmal Daily Monika Araujo MD 1 patch at 12/30/21 0828 sennosides-docusate sodium (SENOKOT-S) 8.6-50 MG tablet 1 tablet 1 tablet Oral BID Monika Araujo MD 1 tablet at 12/30/21 2137 bisacodyl (DULCOLAX) EC tablet 5 mg 5 mg Oral Daily Monika Araujo MD 5 mg at 12/30/21 0827 ondansetron (ZOFRAN) injection 4 mg 4 mg IntraVENous Q6H PRN Monika Araujo MD enoxaparin (LOVENOX) injection 40 mg 40 mg SubCUTAneous Daily Monika Araujo MD 40 mg at 12/30/21 1736 [Held by provider] LORazepam (ATIVAN) tablet 1 mg 1 mg Oral Q1H PRN Monika Araujo MD 1 mg at 12/28/21 1550 Or [Held by provider] LORazepam (ATIVAN) injection 1 mg 1 mg IntraVENous Q1H PRN Monika Araujo MD 1 mg at 12/29/21 0012 Or [Held by provider] LORazepam (ATIVAN) tablet 2 mg 2 mg Oral Q1H PRN Monika Araujo MD Or [Held by provider] LORazepam (ATIVAN) injection 2 mg 2 mg IntraVENous Q1H PRN Monika Araujo MD Or [Held by provider] LORazepam (ATIVAN) tablet 3 mg 3 mg Oral Q1H PRN Monika Araujo MD Or [Held by provider] LORazepam (ATIVAN) injection 3 mg 3 mg IntraVENous Q1H PRN Monika Araujo MD 3 mg at 12/29/21 0120 Or [Held by provider] LORazepam (ATIVAN) tablet 4 mg 4 mg Oral Q1H PRN Monika Araujo MD Or [Held by provider] LORazepam (ATIVAN) injection 4 mg 4 mg IntraVENous Q1H PRN Monika Arauoj MD ARE THERE PERTINENT UPDATES TO PAST,FAMILY, OR SOCIAL HISTORY?: No Subjective: States she does not feel well this am, complaining of right upper chest pain and generalized abdominal pain. Alert to city and place this am. Review of Systems Constitutional: Positive for activity change and appetite change. HENT: Negative for trouble swallowing. Respiratory: Positive for cough and shortness of breath. Cardiovascular: Positive for chest pain. Palpitations: intermittent. Gastrointestinal: Positive for abdominal pain. Negative for abdominal distention, constipation, diarrhea, nausea and vomiting. Genitourinary: Positive for difficulty urinating. Musculoskeletal: Positive for gait problem (genralized weakness). Negative for arthralgias, back pain, myalgias and neck pain. Skin: Negative for wound. Neurological: Negative for dizziness, light-headedness and headaches. Psychiatric/Behavioral: Positive for confusion. Negative for agitation and behavioral problems. PHQ In the last 2 weeks have you had: Little interest or pleasure in doing things No Been feeling down, depressed, or hopeless No If greater then 0, place CLP consult Date PHQ completed: 12/30/21 Objective: Patient Vitals for the past 24 hrs: BP Temp Temp src Pulse Resp SpO2 12/31/21 0300 -- 98.4 F (36.9 C) Temporal -- -- -- 12/30/21 2320 -- 99 F (37.2 C) Temporal 92 26 99 % 12/30/212020 -- -- -- 72 22 100 % 12/30/21 1939 -- (!) 96.5 F (35.8 C) Oral -- -- -- 12/30/21 1800 (!) 100/57 -- -- 75 21 -- 12/30/21 1700 104/73 -- -- 71 19 -- 12/30/21 1600 118/66 98.6 F (37 C) Temporal 73 22 99 % 12/30/21 1502 -- 98.8 F (37.1 C) Temporal -- -- -- 12/30/21 1501 -- -- -- 71 -- -- 12/30/21 1500 (!) 110/57 -- -- 64 22 100 % 12/30/21 1400 131/85 -- -- 76 23 97 % 12/30/21 1300 107/66 -- -- 64 20 -- 12/30/21 1200 131/61 99 F (37.2 C) Temporal 67 20 -- 12/30/21 1100 114/63 -- -- 63 20 -- 12/30/21 1000 (!) 109/55 -- -- 66 20 -- 12/30/21 0900 110/75 -- -- 79 16 95 % 12/30/21 0813 (!) 101/53 97.3 F (36.3 C) Temporal 72 20 -- 12/30/21 0802 -- -- -- 70 22 98 % 12/30/21 0800 (!) 101/53 -- -- 63 21 98 % 12/30/21 0730 -- -- -- 69 -- -- 12/30/21 07 110/63 -- -- 64 28 97 % Last BM: 12/31 Diet: Pureed with thin liquids (per speech) CVP: Yes Where: Right IJ Chest Tubes: none PHYSICAL: Physical Exam Vitals and nursing note reviewed. Constitutional: General: She is not in acute distress. Appearance: She is ill-appearing. She is not toxic-appearing. HENT: Head: Normocephalic and atraumatic. Right Ear: External ear normal. Left Ear: External ear normal. Nose: Nose normal. Mouth/Throat: Mouth: Mucous membranes are dry. Eyes: Extraocular Movements: Extraocular movements intact. Conjunctiva/sclera: Conjunctivae normal. Pupils: Pupils are equal, round, and reactive to light. Cardiovascular: Rate and Rhythm: Normal rate. Pulses: Normal pulses. Pulmonary: Effort: Pulmonary effort is normal. No respiratory distress. Breath sounds: Rhonchi present. Comments: High flow oxygen, wean to goal of 92% Abdominal: General: Bowel sounds are normal. There is no distension. Palpations: Abdomen is soft. There is no mass. Tenderness: There is abdominal tenderness. There is no guarding or rebound. Hernia: No hernia is present. Genitourinary: Comments: [place] to [place] Musculoskeletal: General: No tenderness or signs of injury. Normal range of motion. Cervical back: Normal range of motion and neck supple. No tenderness. Comments: Generalized weakness Skin: General: Skin is warm and dry. Capillary Refill: Capillary refill takes 2 to 3 seconds. Neurological: Mental Status: She is alert. Comments: Alert to place and year today Psychiatric: Mood and Affect: Mood normal. Comments: History of etoh withdraw Sutures or nicolas? No O2: 3L NC Data Review Data CBC with Differential: Lab Results Component Value Date/Time WBC 7.8 12/31/2021 04:28 AM RBC 3.02 12/31/2021 04:28 AM HGB 10.6 12/31/2021 04:28 AM HCT 32.2 12/31/2021 04:28 AM PLT 193 12/31/2021 04:28 AM CMP: Lab Results Component Value Date/Time NA 137 12/31/2021 02:58 AM K 2.9 12/31/2021 02:58 AM CL 111 12/31/2021 02:58 AM CO2 23 12/31/2021 02:58 AM BUN 5 12/31/2021 02:58 AM CREATININE 0.49 12/31/2021 02:58 AM GLUCOSE 163 12/31/2021 02:58 AM PROT 4.8 12/30/2021 07:31 AM LABALBU 2.3 12/30/2021 07:31 AM CALCIUM 7.4 12/31/2021 02:58 AM BILITOT 1.1 12/30/2021 07:31 AM ALKPHOS 52 12/30/2021 07:31 AM AST 42 12/30/2021 07:31 AM ALT 11 12/30/2021 07:31 AM BMP: Hepatic Function Panel:Ionized Calcium: No results found for: IONCA Magnesium: Lab Results Component Value Date/Time MG 1.9 12/31/2021 02:58 AM Phosphorus: Lab Results Component Value Date/Time PHOS 3.6 12/30/2021 07:31 AM PT/INR: Lab Results Component Value Date/Time PROTIME 10.4 12/27/2021 11:49 AM INR 1.0 12/27/2021 11:49 AM PTT: No results found for: APTT[APTT Last 3 Troponin: Lab Results Component Value Date/Time TROPONINI 0.124 12/30/2021 12:29 AM TROPONINI 0.156 12/29/2021 06:34 PM TROPONINI 0.162 12/29/2021 10:18 AM Urine Culture: No components found for: CURINE Blood Culture: No components found for: CBLOOD, CFUNGUSBL Blood Culture from Central Line: No components found for: CBLOODLN Stool Culture: No components found for: CSTOOL Sputum Culture: No components found for: CSPUTUM Sputum Culture for AFB: No components found for: CAFBSM Wound Culture: n/a Radiology: XR ABDOMEN (KUB) (SINGLE AP VIEW) Result Date: 12/30/2021 Patient Name: JAIMIE MCGOVERN Diagnostic Radiology ACCESSION EXAM DATE/TIME PROCEDURE ORDERING PROVIDER [id number] 12/30/2021 07:53 EDT CR Abdomen AP [id number] -IS[place]EL [place] CPT code 37220 Reason For Exam (CR Abdomen AP) assess for cecal pneumatosis Report Examination: Abdomen: AP view. Comparison: 12/29/2021. Reason For Study: Assess for cecal pneumatosis. Findings/Interpretations: 1. Limited view of the right lower quadrant shows curvilinear lucenciescephalad to the right greater trochanter which may represent pneumatosis coli. Clarification with CT of the abdomen would be more beneficial. 2. Small amount residual colorectal contrast and solid content. 3. Tubular lucencies overlying the abdomen suggest distal small bowel obstruction. Further evaluation with CT scan of the abdomen and pelvis would be of value. Report Dictated on --- Final --- Dictated: 12/30/2021 11:07 am Dictating Physician: MD MAHAJAN B NELSON Signed Date and Time: 12/30/2021 11:24 am Signed by: MD MAHAJAN B NELSON Transcribed Date and Time: 12/30/2021 11:07 XR ABDOMEN (KUB) (SINGLE AP VIEW) Result Date: 12/29/2021 Patient Name: JAIMIE MCGOVERN Diagnostic Radiology ACCESSION EXAM DATE/TIME PROCEDURE ORDERING PROVIDER [id number] 12/29/2021 10:58 EDT CR Abdomen AP [id number] -NATHALIE, ANEIL CPT code 44664 Reason For Exam (CR Abdomen AP) distention, increase WOB Report CLINICAL INFORMATION: Abdominal pain. Distention. Supine KUB is provided. FINDINGS: Air, stool, and previously administered oral contrast are seen in nondistended loops of: to the level of the rectum. The small bowel is not dilated. IMPRESSION: 1. Nonobstructive bowel gas pattern. Report Dictated on --- Final --- Dictated: 12/29/2021 11:13 am Dictating Physician: MD LOYOLA JEFFREY Signed Date and Time: 12/29/2021 11:14 am Signed by: MD LOYOLA JEFFREY Transcribed Date and Time: 12/29/2021 11:13 CT CHEST W CONTRAST Result Date: 12/27/2021 Patient Name: JAIMIE MCGOVERN [facility]#: [id number] Computed Tomography ACCESSION EXAM DATE/TIME PROCEDURE ORDERING PROVIDER [id number] 12/27/2021 14:[address] Thorax w/ Contrast [id number] MONIKA AYOUB CPT code 29095 Q9967 Reason For Exam (CT Thorax w/ Contrast) CT esophogram for possible esophageal perforation Report EXAMINATION: CT of the chest with oral contrast (CT esophagram). EXAM DATE & TIME: 12/27/2021 2:58 PM EDT INDICATION: CT esophogram for possible esophageal perforation ADDITIONAL INFORMATION: 76-year-old female with suspected perforated esophagus presents for CT esophagram COMPARISON: None LIMITATIONS: None TECHNIQUE: [address] images were obtained of the chest during dynamic injection of oral contrast. Images were reformatted in coronal and sagittal projections using the raw CT data and were interpreted in conjunction with the axial imagesto render the findings listed below. Before infusion of intravenous contrast, radiology personnel in vestigated the possibility of an allergic history and any history of reaction to iodinated contrastmaterial. FINDINGS: Cardiovascular: Atherosclerotic vascular calcifications are present. Mediastinum/pericardium: A moderate amount of pneumomediastinum is present, tracking from the level of the thyroid gland, down to the gastroesophageal junction. No evidence of contrast extravasation into the mediastinum to suggest the presence of an esophageal injury. Thyroid: Unremarkable. Tracheobronchial tree: Some debris is present in the trachea and proximal mainstem bronchi. A large amount of debris is present in the bilateral lower lobe bronchioles, suspicious for aspiration. Pleura: There are large right and small left pleural effusions with associated atelectatic change. No evidence of pneumothorax. Computed Tomography Report Lungs: There is bibasilar scarring/atelectasis and partial collapseof the bilateral lower lobes. There is also mild patchy consolidation near the dependent aspects ofthe lung bases. Nodules: No nodules are present that require follow up. Lymph nodes: No emerging adenopathy. Included images of the upper abdomen: There is colonic interposition. Nodular hepatic margin is suggestive of cirrhotic liver morphology. There is moderate bilateral adrenal nodularity, leftgreater than right. Visualized musculoskeletal structures: No acute osseous abnormality is demonstrated. Mild multilevel spondylosis is present. IMPRESSION: 1. No contrast extravasation to suggest the presence of an esophageal injury. 2. Fairly extensive pneumomediastinum, spanning the level of thethyroid gland of the gastroesophageal junction. 3. Large right and small left pleural effusions with associated atelectatic change. 4. Debris in the trachea, mainstem bronchi and bilateral lower lobebronchioles, suspicious for aspiration. Clinical correlation recommended. 5. Hepatic cirrhosis. 6. Additional chronic findings as above. Report Dictated on --- Final --- Dictated: 12/27/2021 3:37 pm Dictating Physician: MD ARENAS CHRISTOPHER Signed Date and Time:12/27/2021 3:46 pm Signed by: MD ARENAS CHRISTOPHER Transcribed Date and Time: 12/27/2021 3:37 XR CHEST PORTABLE Result Date: 12/30/2021 Patient Name: JAIMIE MCGOVERN Diagnostic Radiology ACCESSION EXAM DATE/TIME PROCEDURE ORDERING PROVIDER [id number] 12/30/2021 06:05 EDT CR Chest Portable MD MACIEL ANDREW CPT code 70150 Reason For Exam (CR Chest Portable) patient with desaturation and tacypnea Report Indication: 76-year-old; inpatient; desaturation and tachypnea. Views: Chest portable Comparison: 12/29/2021 at 5:34 AM Findings: Right internal jugular approach central venous catheter is present with tip overlying the right atria. Cardiac monitoring wires and leads are present. The patient is rotated. The cardiomediastinal silhouette is enlarged. The osseous structures appear stable. A layering right pleural effusion is present which appears decreased compared to prior day. Smallleft pleural effusion. There is thickening of the interstitium.. IMPRESSION: Interval decrease in size of a RIGHT pleural effusion. Bilateral pleural effusions, right greater than left. Pulmonary vasc ular congestion.. Report Dictated on --- Final --- Dictated: 12/30/2021 7:09 am Dictating Physician: MD CARLIN JENNIFER R Signed Date and Time: 12/30/2021 7:12 am Signed by: MD CARLIN JENNIFER R Transcribed Date and Time: 12/30/2021 7:09 XR CHEST PORTABLE Result Date: 12/29/2021 Patient Name: JAIMIE MCGOVERN Diagnostic Radiology ACCESSION EXAM DATE/TIME PROCEDURE ORDERING PROVIDER [id number] 12/29/2021 05:47 EDT CR Chest Portable [id number] -MONIKA ARAUJO CPT code 53140 Reason For Exam (CR Chest Portable) pneumomediastinum ReportCLINICAL INFORMATION: Respiratory abnormality. History of pneumomediastinum. CHEST X- RAY, PORTABLE,0534 hours: An AP portable view is compared to the prior examination of earlier the same day at 0044 hours. There is no change in the position of the right internal jugular central venous catheter. Amoderate right pleural effusion appears to be slightly increased but differences may be positional.There is mild to moderate pulmonary vascular congestion. No pneumomediastinum is visualized. No other changes. Report Dictated on --- Final --- Dictated: 12/29/2021 8:11 am Dictating Physician: MD MCKENNA HARLAN Signed Date and Time: 12/29/2021 8:20 am Signed by: MD MCKENNA HARLAN Transcribed Date and Time: 12/29/2021 8:11 XR CHEST PORTABLE Result Date: 12/29/2021 Patient Name: JAIMIE MCGOVERN Diagnostic Radiology ACCESSION EXAM DATE/TIME PROCEDURE ORDERING PROVIDER [id number] 12/29/2021 00:49 EDT CR Chest Portable MD MACIEL ANDREW CPT code 78635 Reason For Exam (CR Chest Portable) patient with desaturation and tacypnea Report Chest one view HISTORY: Desaturation Right IJ central line. Moderate right pleural effusion. Adjacent right lower lung infiltrate. Cardiomegaly. Report Dictated on --- Final --- Dictated: 12/29/2021 0:47 am Dictating Physician: MD LIAO MALAY Signed Date and Time: 12/29/2021 0:47 am Signed by: MD LIAO MALAY Transcribed Date and Time: 12/29/2021 0:47 XR CHEST PORTABLE Result Date: 12/28/2021 Patient Name: JAIMIE MCGOVERN Diagnostic Radiology ACCESSION EXAM DATE/TIME PROCEDURE ORDERING PROVIDER [id number] 12/28/2021 12:22 EDT CR Chest Portable MD GONZALEZ DAVID CPT code 12922 Reason For Exam (CR Chest Portable) s/p R IJ CVC placement Report PORTABLE CHEST (Frontal View) History: Catheter placement Comparison: 12/28/2021, 0556 hours Findings: Frontal portable chest view shows the tip of newly inserted right IJ catheter overlies the right atrium/SVC junction. There is large right and small left pleural effusion. There are also right and smaller left basilar atelectasis/infiltrate. The lungs appear less congested compared to last exam. Theheart is borderline in size. There is no mediastinal widening, pneumothorax, or other significant interval change. Report Dictated on --- Final --- Dictated: 21:35 pm Dictating Physician: MD SALAZAR AHMAD Signed Date and Time: 12/28/2021 1:38 pm Signed by: MITCH ARAUZ MD, AHMAD Transcribed Date and Time: 12/28/2021 1:35 XR CHEST PORTABLE Result Date: 12/28/2021 Patient Name: JAIMIE MCGOVERN Diagnostic Radiology ACCESSION EXAM DATE/TIME PROCEDURE ORDERING PROVIDER [id number] 12/28/2021 05:56 EDT CR Chest Portable [id number] -MONIKA ARAUJO CPT code 74242 Reason For Exam (CR Chest Portable) pneumomediastinum ReportPORTABLE CHEST (Frontal View) History: Respiratory abnormality, pneumomediastinum, follow-up Comparison: 12/27/[address] Findings: Frontal portable chest view shows haziness throughout the right lung and to a lesser degree left lung base suggesting bilateral infiltrate/edema with moderate right and a small left pleural effusions. The heart is borderline in size. Compared to the chest CT of 12/27/2021, previously described pneumomediastinum could not be appreciated on the current radiographs (CTmore sensitive). Continued evaluation and follow-up recommended. Report Dictated on --- Final --- Dictated: 12/28/2021 8:18 am Dictating Physician: MD SALAZAR AHMAD Signed Date and Time: 12/28/2021 8:28 am Signed by: MD SALAZAR AHMAD Transcribed Date and Time: 12/28/2021 8:18 US GUIDE THORACENTESIS Result Date: 12/30/2021 Patient Name: JAIMIE MCGOVERN Ultrasound ACCESSION EXAM DATE/TIME PROCEDURE ORDERING PROVIDER [id number] 12/29/2021 16:07 EDT US Thora-Aspir Pleura w/ [id number] -[place], Image MONIKA CPT code 87158 Reason For Exam (US Thora-Aspir Pleura w/ Image) Thoracentesis Right pleural effusion. Report PROCEDURE: Ultrasound-guided thoracentesis Procedural PersonnelAttending physician(s): Quinn Pastor MD Advanced practice provider(s): Nicola Rob PA-C Indication: Pleural effusion Additional clinical history: None Complications: No immediate complications. IMPRESSION: Successful ultrasound-guided right thoracentesis with drainage of 500 milliliters of cloudy sita-colored serous fluid. Attending physician was present for the entirety of the procedure. PROCEDURE SUMMARY: - Limited thoracic ultrasound - Ultrasound-guided thoracentesis - Additional procedure(s): None PROCEDURE DETAILS: Pre-procedure Consent: Informed consent for the procedure including risks, benefits and alternatives was obtained and time-out was performed prior to the procedure. Preparation: The site was prepared and draped using maximal sterile barrier technique including cutaneous antisepsis. Anesthesia/sedation None Limited thoracic ultrasound Limited thoracic ultrasound was performed using a curved transducer. A safe window for thoracentesis was identified. Moderate to large pleural effusion was seen on the sideof aspiration. The contralateral side was not investigated. Ultrasound Report Thoracentesis Local anesthesia was administered. Ultrasound was used to pick a safe access site. A permanent image was stored. The pleural space was accessed and fluid return confirmed position. The fluid was drained. Catheter placed: 5F Yueh Closure The catheter was removed. A sterile bandage was applied. Post-drainagehemithorax findings: Minimal effusion Additional Details Additional description of procedure: None E quipment details: None Specimens removed: Pleural fluid Estimated blood loss (mL): Less than 10 Report Dictated on --- Final --- Dictated: 12/29/2021 4:13 pm DictatingPhysician: MD PASTOR KEVIN Signed Date and Time: 12/30/2021 8:18 am Signed by: MD PASTOR KEVIN Transcribed Date and Time: 12/29/2021 4:14 Patient Active Problem List Diagnosis Pneumatosis of intestines Debility At risk for delirium Alcohol abuse Acute respiratory insufficiency Shortness of breath Pleural effusion on right Palliative care encounter Demand ischemia of myocardium (HCC) Pneumomediastinum (HCC) Elevated troponin ASSESSMENT: 76 yo F who presents with cecal pneumatosis and pneumomediastinum with low concern for esophageal source PLAN: Neuro/Spine: - alcohol withdraw symptoms resolving - scheduled Tylenol, Morphine IV prn, Oxy prn - Lido patch for right chest - CIWA scoring protocol for withdrawal (2-3 boxes of wine weekly) - folic acid and thiamine - 12/29 Phenobarb decreased to 16.25mg BID - palliative consult, following for goals of care - geriatrics consult - Melatonin nightly HEENT: - no acute issues Cardiovascular: - MAP goal >65, no issues at this time - prn antihypertensives for SBP>160 - Hydralazine and Labetalol prn - 12/29 EKG: NSR 116, Qtc 461 - trop 0.124 from 0.162, stop trending (complaint of central CP upon admission) - Consult Cardiology -elevated troponin likely due to ischemic demand from acute illness Pulmonary: - R pleural effusion - 12/29 [facility] thoracentesis: 525ml bloody fluid - Lights criteria ordered and pending - goal O2 92% given COPD - 12/30 High Flow oxygen this am, wean - acapella, IS - duonebs q4h, 3% nebs TID - covid negative - 12/31 Procal elevated 6.23 from 3.68, repeat Q48hrs - 12/29 chest physiotherapy, contraindicated with pleural effusion and pneumomediastinum per RT - 12/31 CTA chest/abd/pelvis pending - Cardiothoracic consult: -Thoracentesis per SICU team today -Will follow-up thoracentesis studies -Management of cecum per Gen surg -Will continue to follow to assess progression of symptoms FEN/GI: - 12/30 Speech eval: Pureed with thin - lactic acid 1.0, stop trending - central line placed for labs and IVF - Bowel regimen - Zofran prn - Protonix IV daily - 12/31 hypokalemia 2.9, D51/2NS w 20KCL@50 - 12/31 add KCL 40meq BID, mag bolus 2gm IV - KUB, daily exams - Serial abdominal exams - General Surgery consult: -serial abdominal exams, currently non-acute - contiune IVF - CTS on board no intervention of pneumomediastinum - other management per SICU - ACS to follow while SICU team also following, will await floor transfer to assume primary care thereafter. : - Urinary retention, bladder scan for 400cc 12/28 - Costa 12/29 - urine antigens negative Heme: - Hgb: stable 10.6 from 10.2 ID: - empiric Zosyn with cecal pneumatosis - thoracentesis 12/29 given productive cough and chest pain - Thoracentesis fluid culture, gram stain with no organisms seen - MRSA nasal swab pending - Blood cultures, no growth to date (second culture likely contamination) Endo: - hx hypothyroidism - TSH, WNL - Home Synthroid 50mcg daily - hypoglycemia protocol Lines/Devices: - Right IJ central line - Costa Prophylaxis: DVT: Lovenox Has DVT PPX been started? Yes If no, why? started GI: protonix IV Pressure Ulcer: turns per nursing, patient ambulatory Musculoskeletal: - no acute issues - PT/OT recs SNF WB Status: RUE:AT LUE: AT RLE: AT LLE: AT Medications Reconciled- Yes [x] NO [], why Disposition: Continue T2 care, monitor respiratory status closely. Weaned from high flow to 3L NC. CTA chest/abd/pelvis pending. Daily KUB, CXRs. Associated attestation - Erendira Maciel MD - 01/01/2022 10:58 AM EDT ATTENDING ADDENDUM Active Diagnoses/Problems this Admission: Hospital Problems Last Modified POA * (Principal) Pneumomediastinum (HCC) 12/29/2021 Yes Demand ischemia of myocardium (HCC) 12/29/2021 Yes Pneumatosis of intestines 12/27/2021 Yes Debility 12/28/2021 Yes At risk for delirium 12/28/2021 Yes Alcohol abuse 12/28/2021 Yes Acute respiratory insufficiency 12/29/2021 Yes Shortness of breath 12/29/2021 Yes Pleural effusion on right 12/29/2021 Yes Palliative care encounter 12/29/2021 Yes Elevated troponin 12/30/2021 Yes I independently saw the above patient and reviewed the recent events, imaging, labs, vital signs; Iperformed a physical exam and ROS. My findings agree with the above note except for any details corrected below. A complete review of systems was obtained and is negative except as stated in HPI. 76 yo F who presents with cecal pneumatosis and pneumomediastinum Weaned to NC Hypoglycemia Phenobarb BID Loose BM CTA chest abd pelvis today Neurological system - Acute encephalopathy likely metabolic --> ETOH withdrawal --> phenobarb BID likely switch to nightly - appreciate pall recs - Multimodal pain control - Delirium precautions, melatonin nightly Circulatory system - elevated trop - appreciate cards consult --> monitor, demand - SBP < 180 - pneumomediastinum improved Respiratory system - repeat Thoracentesis right for large effusion - follow up cultures - neg - acute respiratory insufficiency - 92% - Aggressive pulmonary hygiene - may consider pulm consult - suspect underlying lung disease Gastrointestinal system - 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 - puree with thin - LFTs wnl - history of etoh - Pneumatosis --> resolved on CT - +BM - Bowel regimen - CTS --> no injury to esophagus --> pneumomediastinum likely COPD Renal function - urinary retention - Costa - lactic acidosis - resolved - D5 1/2NS 50 Immunologic system - Monitor for fevers - zosyn x 7 days - trend procalc Hematologic system - Monitor hemoglobin Endocrine system - Monitor glucose - hypoglycemic protocol - history of hypothyroid - no meds --> TSH wnl --> restart synthroid 50 mcg Integumentary system (GI and cutaneous) - Skin checks Musculoskeletal system - PTOT Ppx - Lovenox - protonix Critical Care time spent 41 min. The time involved in the performance of this care was exclusive ofseparately billable procedures, teaching time and treating other patients. The time was spent personally by the attending physician for the following activities: examination of the patient, ordering and/or performing treatment, reviewing the laboratory and radiographic studies, and if applicable, ventilator management and blood gas interpretation. Critical Care was necessary because of an illness or injury that actively impaired one or more vital organ systems such that there was a high probability of imminent life treatening deterioration in the patient's condition. The following organ systems are involved: Neurologic, Respiratory, ID Erendira Maciel MD Division of Trauma Department of Surgery [facility] ~~~~~~~~~~~~~~~~~~~~~~~~~~~~~~~~~~~~~~~~~~~~~~~~~~~~~~~~~~~~~~~~~~~~~~~ This note may have been dictated using [employer] Edition 2.6 and/or [employer] Voice Recognition Feature. The document was proofread; however, unrecognized voice recognition flight dispatcher errors may be present. * Christiano Gonzalez MD - 12/30/2021 11:50 AM EDT Images from the original note were not included. Department of Surgery Surgical Service - Cardiothoracic surgery Daily Progress Note PATIENT NAME: Jaimie Mcgovern : 1945 ATTENDING PHYSICIAN: Johnny Berrios MD ADMIT DATE: 12/27/2021 TODAY'S DATE: 12/30/2021 SUBJECTIVE Patient with stable, poor respiratory status - remains on HFNC. Afebrile, hemodynamically stable. Slightly more interactive today. Pain well-controlled. No nausea or vomiting. Thoracentesis completedyesterday with cloudy serosanguinous fluid. Gram stain from thoracentesis negative. LDH >1000 con sistent with parapneumonic effusion. OBJECTIVE VITALS: BP 114/63 Pulse 63 Temp 97.3 F (36.3 C) (Temporal) Resp 20 Ht 5' (1.524 m) Wt 123lb 9.6 oz (56.1 kg) SpO2 95% BMI 24.14 kg/m PHYSICAL EXAM: CONSTITUTIONAL: NAD, Disoriented, non-participatory PULM: Resp effort labored, on High-flow nasal cannula, decreased right breath sounds; bilateral chest rise, Right chest pain with coughing CV: RRR, no lower extremity edema ABDOMEN: soft, non-distended, RUQ and RLQ mild TTP, Peritoneal signs absent NEURO: Moves all extremities spontaneously, disoriented, follows simple commands PSYCH: unable to assess 2/2 mentation INTAKE/OUTPUT: Date 12/30/21 0000 - 12/30/21 2359 Shift [id number] 5293-0887 8907-0966 24 Hour Total INTAKE P.O.(mL/kg/hr) 120(0.3) 120 I.V.(mL/kg) 580(10.3) 580(10.3) IV Piggyback(mL/kg) 200(3.6) 360(6.4) 560(10) Shift Total(mL/kg) 900(16.1) 360(6.4) 1260(22.5) OUTPUT Urine(mL/kg/hr) 615(1.4) 450 1065 Shift Total(mL/kg) 615(11) 450(8) 1065(19) Weight (kg) 56.1 56.1 56.1 56.1 I/O last 3 completed shifts: In: 4035 [P.O.:120; I.V.:3615; IV Piggyback:300] Out: 4290 [Urine:4290] I/O this shift: In: 360 [IV Piggyback:360] Out: 575 [Urine:575] Data Recent Labs 12/29/21 0148 12/30/21 0617 WBC 10.6 6.8 HGB 12.1 10.2* HCT 35.3 29.7* PLT 178 161 Recent Labs 12/29/21 0148 12/30/21 0617 12/30/21 0731 NA 136 136 136 K 3.4* 2.8* 2.7* CL 107 107 108* CO2 23 24 23 BUN 7* 8* 8* CREATININE 0.50* 0.57 0.53 GLUCOSE 104* 61* 70 Recent Labs 12/30/21 0731 AST 42 ALT 11 BILITOT 1.1 ALKPHOS 52 Imaging Pertinent imaging reviewed. Current Inpatient Medications Current Facility-Administered Medications: potassium chloride 10 mEq/100 mL IVPB (Peripheral Line),10 mEq, IntraVENous, Q1H Glucose (TRUEPLUS) oral gel 15 g, 15 g, Oral, PRN dextrose 50 % IV solution, 12.5 g, IntraVENous, PRN glucagon (rDNA) injection 1 mg, 1 mg, IntraMUSCular, PRN dextrose 5 % solution, 100 mL/hr, IntraVENous, PRN folic acid 1 mg in sodium chloride 0.9 % 50 mL IVPB, 1 mg, IntraVENous, Daily PHENobarbital (LUMINAL) injection 16.25 mg, 16.25 mg, IntraVENous, 3 times per day bisacodyl (DULCOLAX) suppository 10 mg, 10 mg, Rectal, Daily melatonin SL liquid 0.3 mg, 0.3 mg, SubLINGual, Nightly PRN sodium chloride (Inhalant) 3 % nebulizer solution 4 mL, 4 mL, Nebulization, TID thiamine (B-1) 500 mg in sodium chloride 0.9 % 100 mL IVPB, 500 mg, IntraVENous, TID ipratropium-albuterol (DUONEB) nebulizer solution 1 ampule, 1 ampule, Inhalation, Q4H WA labetalol (NORMODYNE;TRANDATE) injection 10 mg, 10 mg, IntraVENous, Q6H PRN hydrALAZINE (APRESOLINE) injection 10 mg, 10 mg, IntraVENous, Q6H PRN pantoprazole (PROTONIX) 40 mg in sodium chloride (PF) 10 mL injection, 40 mg, IntraVENous, Daily piperacillin-tazobactam (ZOSYN) 4500 mg in dextrose 100 mL IVPB extended infusion (premix), 4,500 mg, IntraVENous, Q6H sodium chloride flush 0.9 % injection 5-40 mL, 5-40 mL, IntraCATHeter, Q8H sodium chloride flush 0.9 % injection 5-40 mL, 5-40 mL, IntraCATHeter, PRN sodium chloride flush 0.9 % injection 5-40 mL, 5-40 mL, IntraVENous, 2 times per day sodium chloride flush 0.9 % injection 5-40 mL, 5-40 mL, IntraVENous, PRN 0.9 % sodium chloride infusion, , IntraVENous, PRN acetaminophen (TYLENOL) tablet 1,000 mg, 1,000 mg, Oral, 3 times per day oxyCODONE (ROXICODONE) immediate release tablet 5 mg, 5 mg, Oral, Q4H PRN OR oxyCODONE (ROXICODONE) immediate release tablet 10 mg, 10 mg, Oral, Q4H PRN morphine sulfate (PF) injection 2 mg, 2 mg, IntraVENous, Q2H PRN OR morphine sulfate (PF) injection 4 mg, 4 mg, IntraVENous, Q2H PRN lidocaine 4 % external patch 1 patch, 1 patch, TransDERmal, Daily sennosides-docusate sodium (SENOKOT-S) 8.6-50 MG tablet 1 tablet, 1 tablet, Oral, BID bisacodyl (DULCOLAX) EC tablet 5 mg, 5 mg, Oral, Daily ondansetron (ZOFRAN) injection 4 mg, 4 mg, IntraVENous, Q6H PRN enoxaparin (LOVENOX) injection 40 mg, 40 mg, SubCUTAneous, Daily [Held by provider] LORazepam (ATIVAN) tablet 1 mg, 1 mg, Oral, Q1H PRN OR [Held by provider] LORazepam (ATIVAN) injection 1 mg, 1 mg, IntraVENous, Q1H PRN OR [Held by provider] LORazepam (ATIVAN) tablet 2 mg, 2 mg, Oral, Q1H PRN OR [Held by provider] LORazepam (ATIVAN) injection 2 mg, 2mg, IntraVENous, Q1H PRN OR [Held by provider] LORazepam (ATIVAN) tablet 3 mg, 3 mg, Oral, Q1H PRN OR [Held by provider] LORazepam (ATIVAN) injection 3 mg, 3 mg, IntraVENous, Q1H PRN OR [Held by provider] LORazepam (ATIVAN) tablet 4 mg, 4 mg, Oral, Q1H PRN OR [Held by provider] LORazepam (ATIVAN) injection 4 mg, 4 mg, IntraVENous, Q1H PRN ASSESSMENT AND PLAN 76 y.o. female with cecal pneumoatosis and pneumomediastinum with right pleural effusion. CT Esophagram negative for esophageal injury. Favor parapneumonic effusion with pneumomediastinum 2/2 prolonged coughing -Thoracentesis suggestive of parapneumonic effusion with negative gram stain and some improvement on AM CXR -WBC remains normal -Cardiothoracic surgery will sign off. Thank you for this consult. We appreciate the opportunity tocare for this patient. Please reach out with questions and concerns Discussed with Dr. Britta Gonzalez MD 12/30/2021 11:50 AM * Dacia Presot - 12/30/2021 10:13 AM EDT Occupational Therapy Facility/Department: [facility] ICU T2 Occupational Therapy Initial Assessment Name: Jaimie Mcgovern : 1945 Date of Service: 12/30/2021 Discharge Recommendations: Subacute/Jail Facility Patient Diagnosis(es): The encounter diagnosis was Pneumatosis of intestines. Past Medical History: has a past medical history of Alcoholic cirrhosis (HCC), Demand ischemia (HCC), Hypothyroid, and Pneumomediastinum (HCC). Past Surgical History: has a past surgical history that includes Cholecystectomy; Appendectomy; andHysterectomy. Assessment Performance deficits / Impairments: Decreased functional mobility ;Decreased endurance;Decreased ADL status;Decreased ROM;Decreased balance;Decreased strength;Decreased safe awareness;Decreased high-level IADLs;Decreased cognition Assessment: OT eval completed. Pt presents with the above deficits. Limited by decreased cognition,decreased balance, fatigue, and decreased strength. Currently max x2 for bed mobility and dependentfor LB dressing. Would benefit from continued therapy to increase independence. OT recommending SNF Prognosis: Poor Decision Making: Medium Complexity REQUIRES OT FOLLOW-UP: Yes Activity Tolerance Activity Tolerance: Patient limited by fatigue;Treatment limited secondary to decreased cognition Plan Plan Times per Week: 3-5 Plan Weeks: 4 Current Treatment Recommendations: Strengthening, ROM, Balance training, Functional mobility training, Endurance training, Cognitive reorientation, Safety education & training, Patient/Caregiver education & training, Equipment evaluation, education, & procurement, Self-Care / ADL, Cognitive/Perceptual training Restrictions Restrictions/Precautions Restrictions/Precautions: NPO, Fall Risk (up with assistance) Required Braces or Orthoses?: No Position Activity Restriction Other position/activity restrictions: (+) alarms, high flow, costa Subjective General Chart Reviewed: Yes Patient assessed for rehabilitation services?: Yes Additional Pertinent Hx: liver cirrhosis Family / Caregiver Present: No Diagnosis: pneumatosis of intestines Subjective Subjective: Pt supine in bed upon arrival. Pt agreeable to OT. Pt reported 5/10 pain in right side of abdomen. RN ok'd to work with pt. RN in room throughout session and ok'd to remove and leave off soft bilateral wrist restraints at end of session. Pt very fatigued and required max verbal cues to keep eyes open throughout session. Social/Functional History Social/Functional History Lives With: Alone Type of Home: Apartment Home Layout: One level Home Access: Level entry Bathroom Shower/Tub: Tub/Shower unit Bathroom Toilet: Standard Bathroom Equipment: Grab bars in shower, Shower chair Bathroom Accessibility: Accessible Home Equipment: Cane, Walker, rolling Receives Help From: Family ADL Assistance: Independent Homemaking Assistance: Needs assistance Homemaking Responsibilities: No Ambulation Assistance: Independent Transfer Assistance: Independent [employer] Loader: No Mode of Transportation: Family Occupation: Retired Additional Comments: Pt poor historian. Pt reports her daughter does all cooking and cleaning. Pt reports independent with dressing, bathing, and toileting. Pt reports ambulating with a FWW or cane at times and ambulating without a device at times. Objective Safety Devices Type of Devices: Bed alarm in place;All fall risk precautions in place;Call light within reach;Patient at risk for falls;Left in bed;Nurse notified Restraints Restraints Initially in Place: Yes (soft bilateral wrist restraints on upon arrival. RN ok'd to remove and leave off at end of session) Balance Sitting: (Static sitting EOB with mod assist. Pt extremely wobbly with LOB noted to right and left.Retrograde lean noted with head and neck flexed, able to extend head with max verbal cues) AROM: (Bilateral shoulder flexion ~60 degrees, WFL distally) PROM: (Bilateral shoulder flexion WFL) Strength: (Bilateral shoulder flexion not tested due to decreased ROM, 3+/5 distally. Poor psychiatric social worker supervisor strength) Sensation: (Pt reports no acute changes) ADL LE Dressing: (Dependent to don bilateral socks) Bed mobility Supine to Sit: Maximum assistance;2 Person assistance Sit to Supine: Maximum assistance;2 Person assistance Scooting: Maximal assistance;2 Person assistance (with draw sheet) Vision - Basic Assessment Prior Vision: Wears glasses all the time Patient Visual Report: No visual complaint reported. Hearing Hearing: Within functional limits Cognition Overall Cognitive Status: Exceptions (pt poor historian, difficulty attending to directions, able to follow one steps commands, required max verbal cues to keep eyes open throughout session) Orientation Orientation Level: (A&O to person and place. Time: month "November" able to select month with modverbal cues, year "2021") Education Given To: Patient Education Provided: Role of Therapy;Plan of Care Education Method: Verbal Barriers to Learning: Cognition Education Outcome: Continued education needed [facility] Score AM-[facility] Daily Activity Inpatient How much help for putting on and taking off regular lower body clothing?: Total How much help for Bathing?: Total How much help for Toileting?: Total How much help for putting on and taking off regular upper body clothing?: A Lot How much help for taking care of personal grooming?: A Lot How much help for eating meals?: A Little AM-[facility] Inpatient Daily Activity Raw Score: 10 AM-PAC Inpatient ADL T-Scale Score : 27.31 ADL Inpatient CMS 0-100% Score: 74.7 ADL Inpatient [facility] G-Code Modifier : CL Goals Short Term Goals Time Frame for Short term goals: 4 weeks Short Term Goal 1: Static sitting balance to CGA during unilateral UE task Short Term Goal 2: Bed mobility min assist as a precursor to functional tasks Short Term Goal 3: Pt to keep eyes open 50% of session Short Term Goal 4: Toilet transfer with mod assist Patient Goals Patient goals : None stated Therapy Time Individual Concurrent Group Co-treatment Time In 0825 Time Out 0851 Minutes 26 Timed Code Treatment Minutes: 15 Minutes (1- functional activity) Patient's Occupational Therapy Plan of Care supervision is transferred to [facility] Occupational Therapist. Goals and/or treatment plan was established in collaboration with patient/family/other representatives. This provider wore a surgical mask and gloves for the duration of the session with this patient. 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 Pt c/o abdominal pain. Patient Active Problem List Diagnosis Date Noted Demand ischemia of myocardium (HCC) 12/29/2021 Pneumomediastinum (HCC) 12/29/2021 Elevated troponin 12/30/2021 Acute respiratory insufficiency 12/29/2021 Shortness of breath 12/29/2021 Pleural effusion on right 12/29/2021 Palliative care encounter 12/29/2021 Debility 12/28/2021 At risk for delirium 12/28/2021 Alcohol abuse 12/28/2021 Pneumatosis of intestines 12/27/2021 Past Medical History: Diagnosis Date Alcoholic cirrhosis (HCC) Demand ischemia (HCC) 12/29/2021 Hypothyroid Pneumomediastinum (HCC) 12/29/2021 Past Surgical History: Procedure Laterality Date APPENDECTOMY CHOLECYSTECTOMY HYSTERECTOMY (CERVIX STATUS UNKNOWN) No Known Allergies DATE ONSET: 12/27/21 Date of Evaluation: 12/30/2021 Evaluating Therapist: Glenna Colon MA, CCC- 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 Chest XRAY: 12/29/21 Findings: Right internal jugular approach central venous catheter is present with tip overlying the right atria. Cardiac monitoring wires and leads are present. The patient is rotated. The cardiomediastinal silhouette is enlarged. The osseous structures appear stable. A layering right pleural effusion is present which appears decreased compared to prior day. Small left pleural effusion. There isthickening of the interstitium.. IMPRESSION: Interval decrease in size of a RIGHT pleural effusion.Bilateral pleural effusions, right greater than left. Pulmonary vascular congestion." Chief Complaint: Abdominal Pain- Transfer from [place]. Pt c/o abdominal pain. Reason for Referral Jaimie Mcgovern was referred for a bedside swallow evaluation to assess the efficiency of her swallow function, identify signs and symptoms of aspiration, identify risk factors, and make recommendations regarding safe dietary consistencies, effective compensatory strategies, and safe eating environment. Jaimie Mcgovern is a 76 y.o. female who presents to the emergency department from transfer from [facility] . She had originally presented to [facility] via EMS due to pain in the right side for the past couple days and worsening late last night.There she had scans showing pneumatosis of the cecum concerning for bowel ischemia. She was transferred for surgical evaluation. S/P 2L fluid bolus, Piperacillen/Tazobactam, and pain control. She denies changes in bowel or bladder habits, blood in stools, or changes in stool caliber. She last ate yesterday night. Past medical history is only significant for liver cirrhosis which was diagnosed >5 years ago. She drinks approximately 3 glasses of wine >4x weekly. She is a current everyday smoker of 1ppd, with no prior oxygen requirement. 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 They stated no current interventions to be done per patient family. General Chart Reviewed: Yes Subjective Subjective: Patient alert and resting in bed upon 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 arrival, RN in room throughout session. Patient fully participate throughout session though required consistent cues from 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 to maintain level of alertness for safe participation. Behavior/Cognition: Alert;Pleasant mood;Cooperative Respiratory Status: O2 via nasual cannula O2 Device: High flow nasal cannula Liters of Oxygen: (30L) Communication Observation: Functional Follows Directions: Simple Dentition: Some missing teeth Patient Positioning: Upright in bed Baseline Vocal Quality: Weak;Normal Prior Dysphagia History: NA Consistencies Administered: Pureed;Thin - cup;Thin - straw;Ice Chips Vision and Hearing Vision Vision: Within Functional Limits Hearing Hearing: Within functional limits Current Diet level Current Diet : NPO Oral Motor Labial: No impairment Dentition: Natural Oral Hygiene: Clean;Moist Lingual: No impairment Velum: No Impairment Mandible: No impairment Oral/Pharyngeal Phase Oral Phase: Patient required full assistance with feeding. Did not trial solids this date d/t patient decreased level of alertness. Patient with timely bolus transport and no oral residue. Suspect good bolus control. No anterior spillage of liquids. Patient clinically presents with an essentially normal swallow function. Pharyngeal Phase: No cough or change in vocal quality. Noted strong laryngeal elevation. No watering eyes or increased/effortful breathing following PO trials. Patient clinically presents with an essentially normal pharyngeal phase of the swallow but requires further examination with other PO consistencies. Dysphagia Diagnosis Dysphagia Diagnosis: Swallow function appears WFL;Suspected needs further assessment Dysphagia Impression : Patient clinically presents with an essentially normal swallow but requires further examination with other PO consistencies. Suspect patient current decreased level of alertness impacting dysphagia. Patient requires LP for dysphagia plan of care. Recommendations Recommend Puree Diet with Thin Liquids + safe swallow strategies. Recommend medications in puree asable. Recommend 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 to follow with dysphagia plan of care. Requires 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 Intervention: Yes Recommendations: Dysphagia treatment Diet Solids Recommendation: Pureed Liquid Consistency Recommendation: Thin Compensatory Swallowing Strategies : Upright as possible for all oral intake;Small bites/sips;Totalfeed Recommended Form of Meds: Meds in puree Duration of Treatment: 3x/week for 2 weeks Prognosis Good Education 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 educated patient and RN on safe swallow function, strategies,and dysphagia plan of care. Individuals consulted Consulted and agree with results and recommendations: Patient;RN Treatment/Goals Short-term Goals Timeframe for Short-term Goals: 2 weeks Dysphagia Goals: The patient will tolerate recommended diet without observed clinical signs of aspiration, The patient will recall and perform compensatory strategies, with no cues. Safety Devices Safety Devices Safety Devices in place: Yes Pain: Rn managing patient pain. Therapy Time Time In: 904 Total Time: 10 minutes A surgical mask and gloves were worn throughout this session. Glenna Colon MA, [facility])-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 * Nini Thomas APRN - JONATHAN - 12/30/2021 9:14 AM EDT Images from the original note were not included. Palliative Care Progress Note Chief Complaint: Jaimie Alan a 76 y.o. female with chief complaint of CP, abdominal pain Palliative care is actively following this patient. Assessment/Plan Assessment/Plan Shortness of breath - pending thoracentesis today - on HFNC 50%/35L - pleural effusion - pneumomediastinum - reviewed labs - blood cultures - iv abx - lactic acid down trending - active smoker [employer]IVER - hypertonic saline mebs - duonebs Large R pleural effusion - thoracentesis 12/29/21 with 500ML removed Pneumomediastinum - CTS following, no plans for intervention at this time Cecal pneumatosis - serial films - per SICU team Debility - PT/OT when medically stable - lived alone [employer]IVER, most recently daughter was helping with IADLs - she has refused to move in with children who have asked repeatedly Alcohol abuse - history of cirrhosis - CIDC protocol--much required overnight - on phenobarb, reduced to 16.25mg three times per day - folic acid and thiamine - addiction med when stable Elevated troponin - cardiology seen, with demand ischemia from acute illness Palliative Care Encounter -full code - does not have capacity to make medical decisions - daughter Geneva is HCPOA - more awake and interactive today, able to answer simple yes and no questions, minimal elaboration - daughter at bedside, glad for overall improvement - will continue to follow for ongoing monitoring of progression of mentation and Dyspnea - will continue to evaluate test results related to Respiratory Failure, medication effectiveness for mentation and Dyspnea, response to treatment of Respiratory Failure - obtaining testing as needed to monitor medication results:N/A - follow Active Hospital Problems Diagnosis Date Noted Demand ischemia of myocardium (HCC) [I24.8] 12/29/2021 Priority: High Pneumomediastinum (HCC) [J98.2] 12/29/2021 Priority: High Elevated troponin [R77.8] 12/30/2021 Priority: Medium Acute respiratory insufficiency [R06.89] 12/29/2021 Priority: Medium Shortness of breath [R06.02] 12/29/2021 Priority: Medium Pleural effusion on right [J90] 12/29/2021 Priority: Medium Palliative care encounter [Z51.5] 12/29/2021 Priority: Medium Debility [R53.81] 12/28/2021 Priority: Medium At risk for delirium [Z91.89] 12/28/2021 Priority: Medium Alcohol abuse [F10.10] 12/28/2021 Priority: Medium Pneumatosis of intestines [K63.89] 12/27/2021 Priority: Medium Time/Communication Greater than 51% of time spent, total 25 minutes in counseling and coordination of care at the bedside regarding See Above Discharge planning: to be determined Patient meets criteria for general inpatient hospice care including the following:N/A- Palliative Care Patient Referrals to: None Today Discussed patient and the plan of care with the other interdisciplinary team (IDT) members of Palliative Team, and with Primary Attending, Patient, Family, and Floor Nurse Insert attestation statement here if applicable (.disupervision) or (.npattest) I have discussed the patient's case and plan of care with my collaborating physician Dr. [place] Subjective: Subjective/Events Since last seen: reduced oxygenation requirements, underwent thoracentesis with 500ml removed. Seenby cardiology. Awakens easily to verbal stimuli, daughter at bedside, without pain, CP, abdominal pain (until palpated) breathing easier but not at baseline, no nausea, vomiting, no documented BM since admission. Goals of care: Continue Current Management Advance Directives: full code Surrogate: Child Prognosis: unknown Spiritual assessment: No spiritual distress identified Bereavement and grief: Grief Issues Not Identified ROS: See palliative care ROS/ESAS below; see HPI Family Meeting: Participants:Patient and daughter Family meeting was held to discuss: as above Objective: Physical Exam BP (!) 101/53 Pulse 72 Temp 97.3 F (36.3 C) (Temporal) Resp 20 Ht 5' (1.524 m) Wt 123 lb 9.6 oz (56.1 kg) SpO2 98% BMI 24.14 kg/m Physical Exam Vitals and nursing note reviewed. Constitutional: General: She is awake. Appearance: She is normal weight. She is ill-appearing. HENT: Head: Normocephalic and atraumatic. Mouth/Throat: Mouth: Mucous membranes are dry. Eyes: General: Right eye: No discharge. Left eye: No discharge. Cardiovascular: Rate and Rhythm: Normal rate and regular rhythm. Pulses: Normal pulses. Heart sounds: Normal heart sounds. No murmur heard. Comments: No edema B post tib/dorsalis pedis palpable Pulmonary: Effort: Pulmonary effort is normal. Breath sounds: Normal breath sounds. Abdominal: General: Bowel sounds are normal. There is no distension. Palpations: Abdomen is soft. Tenderness: There is abdominal tenderness. Genitourinary: Comments: [place] to gravity Musculoskeletal: Cervical back: Normal range of motion and neck supple. Skin: General: Skin is warm and dry. Comments: fragile Neurological: Comments: More interactive, not at baseline per daughter at bedside Psychiatric: Comments: No agitation [place] Symptom Assessment Score [place] Score Pain Score 0 Tiredness Score 4 Nausea Score 0 Depression Score 0 Anxiety Score 0 Drowsiness Score 4 Anorexia Score (0= eating well, 10= not eating) 10 Wellbeing Score (10= worst sense of well-being) 10 Constipation 5 Dyspnea Score (0= no shortness of breath) 5 FLACC Scale (For Pain Assessment of the Non-Verbal Patient) Patient is verbal Assessed by: patient and provider. Intervention taken for pain: none All other systems were reviewed and are negative. Current Medications: Inpatient medications reviewed: yes Home Medications reviewed: yes 24 Hour PRNMeds: oxycodone 5mg times 1 Results/Verification of Data Review Objective data reviewed: labs, images, records, medicationuse, vitals, and chart Data in Support of Terminal Illness: Is patient hospice appropriate? TBD * Mary Palacios PT - 12/30/2021 8:42 AM EDT Physical Therapy PT evaluation orders received. PT evaluation attempted. Pt currently working with OT. Will reattempt PT evaluation at a later date or as schedule allows. * DESTINY Matthews NP - 12/30/2021 8:35 AM EDT Images from the original note were not included. [facility] Geriatric Medicine Inpatient Consult Service Admission Date: 12/27/2021 Assessment Principal Problem: Pneumomediastinum (HCC) Active Problems: Demand ischemia of myocardium (HCC) Pneumatosis of intestines Debility At risk for delirium Alcohol abuse Acute respiratory insufficiency Shortness of breath Pleural effusion on right Palliative care encounter Elevated troponin Resolved Problems: * No resolved hospital problems. * Plan Debility -acute on chronic debility -acute reasons: pleural effusion, pneumomediastinum, cecal pneumatosis -chronic etiology: physical deconditioning, alcohol use, tobacco use, advanced age -PT and OT - will help provide discharge recommendations. High risk for needing facility based rehab following hospitalization -patient reports good family and community support. Unable to obtain collateral information from daughter today to see if she was having more difficulty managing at home -would benefit from a more thorough cognitive evaluation when she is physically feeling better. At Risk for Delirium -risk factors include: age, pain, pain medication, frailty, alcohol use, acute illness -monitor bowels/ bladder -adequate pain control -delirium protocol -recommend scheduling melatonin at night. Alcohol Abuse -ciwa protocol per primary team Addendum Medication Recommendations --Change current thiamine order to 500 mg in 100 mL NS or D5W IV TID for 3-7 days, then thiamine 250 mg IV daily for 3-5 days, then 100 mg daily until no longer at risk due to altered mental status with prior to admission alcohol use --Reinitiate home levothyroxine 50 mcg PO daily --Consider addiction medicine consult for additional assistance managing phenobarbital and use of lorazepam per CIWA scale. Follow-up: 1-2 days Subjective Chief Complaint: abd/chest pain, shortness of breath Geriatrics consulted for frailty, lives independently, heavy ETOH/Tobacco use HPI- The patient is known to me. 76 y.o. year-old female admitted to acute care from home for abd/chest pain, sob. Diagnosed with cecal pneumatosis/ pneumomediastinum. Interval History: Remains on ICU. T223 No overnight events, restraints off. Did not get any PRNS - only phenobarb per CIWA More awake but remains very lethargic. Needs prompting to stay awake. Able to tell me she's in the [facility] but is confused otherwise. Complains of pain in R ribs Denies urinary catheter pain/burning. Await PT recommendations Review of Systems Unable to perform ROS: Mental status change Objective BP (!) 101/53 Pulse 72 Temp 97.3 F (36.3 C) (Temporal) Resp 20 Ht 5' (1.524 m) Wt 123 lb 9.6 oz (56.1 kg) SpO2 98% BMI 24.14 kg/m Intake/Output Summary (Last 24 hours) at 12/30/2021 0835 Last data filed at 12/30/2021 0730 Gross per 24 hour Intake 2535 ml Output 2765 ml Net -230 ml Patient Vitals for the past 96 hrs (Last 3 readings): Weight 12/30/21 0400 123 lb 9.6 oz (56.1 kg) 12/27/21 1040 115 lb (52.2 kg) Current Facility-Administered Medications: potassium chloride 10 mEq/100 mL IVPB (Peripheral Line),10 mEq, IntraVENous, Q1H folic acid 1 mg in sodium chloride 0.9 % 50 mL IVPB, 1 mg, IntraVENous, Daily PHENobarbital (LUMINAL) injection 16.25 mg, 16.25 mg, IntraVENous, 3 times per day bisacodyl (DULCOLAX) suppository 10 mg, 10 mg, Rectal, Daily melatonin SL liquid 0.3 mg, 0.3 mg, SubLINGual, Nightly PRN sodium chloride (Inhalant) 3 % nebulizer solution 4 mL, 4 mL, Nebulization, TID thiamine (B-1) 500 mg in sodium chloride 0.9 % 100 mL IVPB, 500 mg, IntraVENous, TID ipratropium-albuterol (DUONEB) nebulizer solution 1 ampule, 1 ampule, Inhalation, Q4H WA labetalol (NORMODYNE;TRANDATE) injection 10 mg, 10 mg, IntraVENous, Q6H PRN hydrALAZINE (APRESOLINE) injection 10 mg, 10 mg, IntraVENous, Q6H PRN pantoprazole (PROTONIX) 40 mg in sodium chloride (PF) 10 mL injection, 40 mg, IntraVENous, Daily piperacillin-tazobactam (ZOSYN) 4500 mg in dextrose 100 mL IVPB extended infusion (premix), 4,500 mg, IntraVENous, Q6H sodium chloride flush 0.9 % injection 5-40 mL, 5-40 mL, IntraCATHeter, Q8H sodium chloride flush 0.9 % injection 5-40 mL, 5-40 mL, IntraCATHeter, PRN lactated ringers infusion, , IntraVENous, Continuous sodium chloride flush 0.9 % injection 5-40 mL, 5-40 mL, IntraVENous, 2 times per day sodium chloride flush 0.9 % injection 5-40 mL, 5-40 mL, IntraVENous, PRN 0.9 % sodium chloride infusion, , IntraVENous, PRN acetaminophen (TYLENOL) tablet 1,000 mg, 1,000 mg, Oral, 3 times per day oxyCODONE (ROXICODONE) immediate release tablet 5 mg, 5 mg, Oral, Q4H PRN OR oxyCODONE (ROXICODONE) immediate release tablet 10 mg, 10 mg, Oral, Q4H PRN morphine sulfate (PF) injection 2 mg, 2 mg, IntraVENous, Q2H PRN OR morphine sulfate (PF) injection 4 mg, 4 mg, IntraVENous, Q2H PRN lidocaine 4 % external patch 1 patch, 1 patch, TransDERmal, Daily sennosides-docusate sodium (SENOKOT-S) 8.6-50 MG tablet 1 tablet, 1 tablet, Oral, BID bisacodyl (DULCOLAX) EC tablet 5 mg, 5 mg, Oral, Daily ondansetron (ZOFRAN) injection 4 mg, 4 mg, IntraVENous, Q6H PRN enoxaparin (LOVENOX) injection 40 mg, 40 mg, SubCUTAneous, Daily [Held by provider] LORazepam (ATIVAN) tablet 1 mg, 1 mg, Oral, Q1H PRN OR [Held by provider] LORazepam (ATIVAN) injection 1 mg, 1 mg, IntraVENous, Q1H PRN OR [Held by provider] LORazepam (ATIVAN) tablet 2 mg, 2 mg, Oral, Q1H PRN OR [Held by provider] LORazepam (ATIVAN) injection 2 mg, 2mg, IntraVENous, Q1H PRN OR [Held by provider] LORazepam (ATIVAN) tablet 3 mg, 3 mg, Oral, Q1H PRN OR [Held by provider] LORazepam (ATIVAN) injection 3 mg, 3 mg, IntraVENous, Q1H PRN OR [Held by provider] LORazepam (ATIVAN) tablet 4 mg, 4 mg, Oral, Q1H PRN OR [Held by provider] LORazepam (ATIVAN) injection 4 mg, 4 mg, IntraVENous, Q1H PRN Physical Exam Constitutional: No acute distress, thin, frail, disheveled Psych: Mood and affect Lethargic. Poor eye contact. Cardiovascular: Regular rate and rhythm, no murmur, no BLE edema Pulmonary/Chest: Diminished to auscultation bilaterally, Increased respiratory effort, no coughing noted Abdominal: Soft, not distended, no tenderness to palpation, BS present, Neurological: somnolent but wakes to stimuli and interacts briefly , inattentive, speech is did notverbalize , disoriented place, follows commands, no tremor and no rigidity Skin: warm and dry, no visible rashes or wounds Labs and Imaging: Recent Results (from the past 24 hour(s)) Legionella Antigen, Urine Collection Time: 12/29/21 10:01 AM Specimen: Urine costa Result Value Ref Range LEGIONELLA ANTIGEN NOT DETECTED Strep Pneumoniae Antigen Collection Time: 12/29/21 10:01 AM Specimen: Urine costa Result Value Ref Range STREP PNEUMONIAE ANTIGEN, URINE NOT DETECTED Lactic Acid Collection Time: 12/29/21 10:18 AM Result Value Ref Range Lactic Acid 1.0 0.7 - 2.0 mmol/L Troponin Collection Time: 12/29/21 10:18 AM Result Value Ref Range Troponin I 0.162 (H) 0.000 - 0.034 ng/mL TSH Collection Time: 12/29/21 10:18 AM Result Value Ref Range TSH 2.263 0.465 - 4.680 u[IU]/mL Ammonia Collection Time: 12/29/21 10:18 AM Result Value Ref Range Ammonia <9 9 - 30 umol/L Procalcitonin Collection Time: 12/29/21 10:18 AM Result Value Ref Range Procalcitonin 3.68 (H) 0.00 - 0.09 ng/mL Interpretation See Below NA Culture, Body Fluid Collection Time: 12/29/21 4:06 PM Specimen: Body Fluid thoracentesis R Result Value Ref Range Gram Stain Result Many polymorphonuclear cells/lpf. No organisms seen. Body Fluid Cell Count with Differential Collection Time: 12/29/21 4:35 PM Result Value Ref Range Fluid Type Thoracentesis NA Nucl Cell, Fluid 6,336 [cells]/uL RED BLOOD CELLS, BODY FLUID 11,310 [RBC]/uL Lactate Dehydrogenase, Body Fluid Collection Time: 12/29/21 4:35 PM Result Value Ref Range LD, Fluid 1,025 No Range U/L Total Protein, Fluid Collection Time: 12/29/21 4:35 PM Result Value Ref Range Protein, body fluid 2.9 No Range g/dL Fluid Type Thoracentesis NA Differential, Body Fluid Collection Time: 12/29/21 4:35 PM Result Value Ref Range Neutrophils % 99 % Monocytes 1 % Differential Count 100 NA Troponin Collection Time: 12/29/21 6:34 PM Result Value Ref Range Troponin I 0.156 (H) 0.000 - 0.034 ng/mL Troponin Collection Time: 12/30/21 12:29 AM Result Value Ref Range Troponin I 0.124 (H) 0.000 - 0.034 ng/mL Basic Metabolic Panel w/ Reflex to MG Collection Time: 12/30/21 6:17 AM Result Value Ref Range Sodium 136 135 - 145 mmol/L Potassium 2.8 (L) 3.5 - 5.1 mmol/L Chloride 107 98 - 107 mmol/L CO2 24 22 - 30 mmol/L Anion Gap 5 3 - 13 mmol/L Glucose 61 (L) 70 - 100 mg/dL BUN 8 (L) 9 - 20 mg/dL Creatinine 0.57 0.52 - 1.25 mg/dL eGFR >90.0 >60 mL/min EGFR IF NonAfrican [place] >90.0 >60 mL/min Calcium 7.7 (L) 8.4 - 10.4 mg/dL CBC with Auto Differential Collection Time: 12/30/21 6:17 AM Result Value Ref Range WBC 6.8 3.6 - 10.7 10*3/uL RBC 2.80 (L) 3.80 - 5.20 10*6/uL Hemoglobin 10.2 (L) 11.7 - 16.0 g/dL Hematocrit 29.7 (L) 35.0 - 47.0 % MCV 106.2 (H) 79.0 - 98.0 fL MCH 36.3 (H) 26.0 - 34.0 pg MCHC 34.2 32.0 - 36.0 % RDW 16.6 (H) 11.5 - 14.5 % Platelets 161 140 - 440 10*3/uL MPV 6.9 (L) 7.4 - 12.4 fL Granulocytes % 80.0 40.0 - 80.0 % Lymphocyte % 10.0 (L) 20.0 - 40.0 % Monocytes 9.1 2.0 - 10.0 % Eosinophils 0.3 (L) 1.0 - 6.0 % Basophils 0.6 0.0 - 2.0 % Absolute Neut # 5.5 1.8 - 7.0 10*3/uL Absolute Lymph # 0.7 (L) 1.0 - 4.3 10*3/uL Absolute [place] # 0.6 0.0 - 0.8 10*3/uL Absolute Eos # 0.0 0.0 - 0.5 10*3/uL Absolute Baso # 0.0 0.0 - 0.2 10*3/uL Vitamin B12 Collection Time: 12/30/21 6:17 AM Result Value Ref Range Vitamin B-12 459 239 - 931 pg/mL Magnesium Collection Time: 12/30/21 6:17 AM Result Value Ref Range Magnesium 1.9 1.6 - 2.3 mg/dL Renal & Liver Profile Collection Time: 12/30/21 7:31 AM Result Value Ref Range Sodium 136 135 - 145 mmol/L Potassium 2.7 (L) 3.5 - 5.1 mmol/L Chloride 108 (H) 98 - 107 mmol/L CO2 23 22 - 30 mmol/L Anion Gap 6 3 - 13 mmol/L Glucose 70 70 - 100 mg/dL BUN 8 (L) 9 - 20 mg/dL Creatinine 0.53 0.52 - 1.25 mg/dL eGFR >90.0 >60 mL/min EGFR IF NonAfrican [place] >90.0 >60 mL/min Calcium 7.7 (L) 8.4 - 10.4 mg/dL Albumin,Serum 2.3 (L) 3.5 - 5.0 g/dL Phosphorus 3.6 2.5 - 4.5 mg/dL Total Protein 4.8 (L) 6.3 - 8.2 g/dL Total Bilirubin 1.1 0.2 - 1.3 mg/dL Bilirubin, Direct 0.0 0.0 - 0.3 mg/dL Alkaline Phosphatase 52 38 - 126 U/L ALT 11 0 - 34 U/L AST 42 15 - 46 U/L Lab Results Component Value Date TSH 2.263 12/29/2021 Lab Results Component Value Date [id number] 12/30/2021 No results found for: [id number] Reviewed: active problem list, medication list, lab results, imaging Electronically signed by Kristopher Todd APRN - [employer] SUPER[employer]OR at 12/30/2021 9:28 AM EDT * Scott Durant MD - 12/30/2021 6:57 AM EDT Images from the original note were not included. Department of General Surgery Daily Progress Note ADMIT DATE: 12/27/2021 TODAY'S DATE: 12/30/2021 SUBJECTIVE: No acute events overnight. Pain reportedly similar to admission, R flank and rib cage. Denies: fevers, chills, nausea, vomiting, shortness of breath or chest pain. Denies bowel function. Alert to self and place, thinks it is October. OBJECTIVE: VITALS: BP 115/71 Pulse 63 Temp 98.8 F (37.1 C) (Temporal) Resp 19 Ht 5' (1.524 m) Wt 123lb 9.6 oz (56.1 kg) SpO2 99% BMI 24.14 kg/m INTAKE/OUTPUT: Date 12/30/21 0000 - 12/30/21 2359 Shift 6463-1512 3898-7048 6035-8400 24 Hour Total INTAKE P.O.(mL/kg/hr) 120 120 I.V.(mL/kg) 580(10.3) 580(10.3) IV Piggyback(mL/kg) 200(3.6) 200(3.6) Shift Total(mL/kg) 900(16.1) 900(16.1) OUTPUT Urine(mL/kg/hr) 490 490 Shift Total(mL/kg) 490(8.7) 490(8.7) Weight (kg) 56.1 56.1 56.1 56.1 I/O last 3 completed shifts: In: 4218 [I.V.:4218] Out: 4450 [Urine:4450] I/O this shift: In: 1000 [P.O.:120; I.V.:580; IV Piggyback:300] Out: 790 [Urine:790] PHYSICAL EXAM: Gen: NAD, A&Ox3, pain well controlled Heart: RRR, well perfused Lungs: symmetric chest rise, normal work of breathing, breath sounds b/l Abd: soft, focally tender in the RLQ, no reobund or guarding. Non tense Ext: no c/c/e no gross deformities Skin: warm, well perfused, no obvious rashes, cellulitis or gross discoloration LABS CBC: Recent Labs 12/27/21 1149 12/29/21 0148 12/30/21 0617 WBC 8.4 10.6 6.8 HGB 13.5 12.1 10.2* HCT 41.2 35.3 29.7* PLT 219 178 161 BMP: Recent Labs 12/27/21 1149 12/29/21 0148 NA 140 136 K 4.4 3.4* CL 112* 107 CO2 20* 23 BUN 9 7* CREATININE 0.52 0.50* GLUCOSE 120* 104* Hepatic: Recent Labs 12/27/21 1149 AST 36 ALT 14 BILITOT 0.8 ALKPHOS 56 Current Inpatient Medications Scheduled Meds: folic acid IVPB 1 mg IntraVENous Daily PHENobarbital 16.25 mg IntraVENous 3 times per day bisacodyl 10 mg Rectal Daily sodium chloride (Inhalant) 4 mL Nebulization TID thiamine (VITAMIN B1) IVPB 500 mg IntraVENous TID ipratropium-albuterol 1 ampule Inhalation Q4H WA pantoprazole (PROTONIX) 40 mg injection 40 mg IntraVENous Daily piperacillin-tazobactam 4,500 mg IntraVENous Q6H sodium chloride flush 5-40 mL IntraCATHeter Q8H sodium chloride flush 5-40 mL IntraVENous 2 times per day acetaminophen 1,000 mg Oral 3 times per day lidocaine 1 patch TransDERmal Daily sennosides-docusate sodium 1 tablet Oral BID bisacodyl 5 mg Oral Daily enoxaparin 40 mg SubCUTAneous Daily Continuous Infusions: lactated ringers 50 mL/hr at 12/30/21 0613 sodium chloride PRN Meds:melatonin, labetalol, hydrALAZINE, sodium chloride flush, sodium chloride flush, sodium chloride, oxyCODONE OR oxyCODONE, morphine OR morphine, ondansetron, [Held by provider] LORazepam OR [Held by provider] LORazepam OR [Held by provider] LORazepam OR [Held by provider] LORazepam OR [Held by provider] LORazepam OR [Held by provider] LORazepam OR [Held by provider] LORazepam OR [Held by provider] LORazepam ASSESSMENT AND PLAN: 76 y.o. 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 Will discuss with Dr. Kyung Durant MD General Surgery PGY-5 12/30/21 6:57 AM Pager # [phone] This note may have been dictated using [employer] Practice Edition 2.6 and/or [employer] Voice Recognition Feature. The document was proofread; however, unrecognized voice recognition flight dispatcher errors may be present. * DESTINY Philip CNP - 12/30/2021 6:13 AM EDT Daily SICU Progress Note Nurse Practitioner 12/30/2021 12:22 PM Admit Date: 12/27/2021 Post Hospital Day 2 History of Present illness: 76 y.o. female with significant past medical history of cirrhosis, COPD, hypothyroidism who presents with R shoulder, R chest, and RUQ pain. Patient received CT scan at [place] [facility] and was transferred here with concern for cecal pneumatosis as well as pneumomediastinum. PROCEDURES: 12/29 right thoracentesis-525ml bloody fluid INCIDENTAL FINDINGS: none CHIEF COMPLAINT: chest pain, abdominal pain PREVIOUS 24 HOUR EVENTS: Etoh withdraw High flow oxygen requirements, wean Decrease phenobarb Consults: IP CONSULT TO GENERAL SURGERY IP CONSULT TO GERIATRICS IP CONSULT TO PALLIATIVE CARE IP CONSULT TO DIETITIAN IP CONSULT TO CARDIOLOGY MEDICATIONS: Current Facility-Administered Medications Medication Dose Route Frequency Provider Last Rate Last Admin Glucose (TRUEPLUS) oral gel 15 g 15 g Oral PRN DESTINY Philip CNP dextrose 50 % IV solution 12.5 g IntraVENous PRN DESTINY Philip CNP glucagon (rDNA) injection 1 mg 1 mg IntraMUSCular PRN DESTINY Philip CNP dextrose 5 % solution 100 mL/hr IntraVENous PRN DESTINY Philip CNP polyethylene glycol (GLYCOLAX) packet 17 g 17 g Oral Daily DESTINY Philip CNP levothyroxine (SYNTHROID) tablet 50 mcg 50 mcg Oral Daily DESTINY Philip CNP folic acid 1 mg in sodium chloride 0.9 % 50 mL IVPB 1 mg IntraVENous Daily DESTINY Philip CNP Stopped at 12/30/21 0926 PHENobarbital (LUMINAL) injection 16.25 mg 16.25 mg IntraVENous 3 times per day DESTINY Philip CNP 16.25 mg at 12/30/21 0851 bisacodyl (DULCOLAX) suppository 10 mg 10 mg Rectal Daily DESTINY Philip CNP 10 mg at 12/30/21 1005 melatonin SL liquid 0.3 mg 0.3 mg SubLINGual Nightly PRN DESTINY Philip CNP sodium chloride (Inhalant) 3 % nebulizer solution 4 mL 4 mL Nebulization TID DESTINY Philip 4 mL at 12/30/21 0802 thiamine (B-1) 500 mg in sodium chloride 0.9 % 100 mL IVPB 500 mg IntraVENous TID DESTINY Philip CNP Stopped at 12/30/21 0926 ipratropium-albuterol (DUONEB) nebulizer solution 1 ampule 1 ampule Inhalation Q4H DC Monika Araujo MD 1 ampule at 12/30/21 1105 labetalol (NORMODYNE;TRANDATE) injection 10 mg 10 mg IntraVENous Q6H PRN Monika Araujo MD 10 mg at 12/29/21 0109 hydrALAZINE (APRESOLINE) injection 10 mg 10 mg IntraVENous Q6H PRN Monika Araujo MD pantoprazole (PROTONIX) 40 mg in sodium chloride (PF) 10 mL injection 40 mg IntraVENous Daily Monika Araujo MD 40 mg at 12/30/21 0827 piperacillin-tazobactam (ZOSYN) 4500 mg in dextrose 100 mL IVPB extended infusion (premix) 4,500 mgIntraVENous Q6H Yariel Beasley MD 33.3 mL/hr at 12/30/21 1009 4,500 mg at 12/30/21 1009 sodium chloride flush 0.9 % injection 5-40 mL 5-40 mL IntraCATHeter Q8H Wale Christie MD 10 mL at 12/30/21 0148 sodium chloride flush 0.9 % injection 5-40 mL 5-40 mL IntraCATHeter PRN Wale Christie MD sodium chloride flush 0.9 % injection 5-40 mL 5-40 mL IntraVENous 2 times per day Monika Araujo MD 10 mL at 12/29/21 2122 sodium chloride flush 0.9 % injection 5-40 mL 5-40 mL IntraVENous PRN Monika Araujo MD 0.9 % sodium chloride infusion IntraVENous PRN Monika Araujo MD acetaminophen (TYLENOL) tablet 1,000 mg 1,000 mg Oral 3 times per day Monika Araujo MD 1,000 mg at 12/30/21 0827 oxyCODONE (ROXICODONE) immediate release tablet 5 mg 5 mg Oral Q4H PRN Monika Araujo MD 5 mg at 12/30/21 0629 Or oxyCODONE (ROXICODONE) immediate release tablet 10 mg 10 mg Oral Q4H PRN Monika Araujo MD morphine sulfate (PF) injection 2 mg 2 mg IntraVENous Q2H PRN Monika Araujo MD Or morphine sulfate (PF) injection 4 mg 4 mg IntraVENous Q2H PRN Monika Araujo MD 4 mg at 12/27/212149 lidocaine 4 % external patch 1 patch 1 patch TransDERmal Daily Monika Araujo MD 1 patch at 12/30/21 0828 sennosides-docusate sodium (SENOKOT-S) 8.6-50 MG tablet 1 tablet 1 tablet Oral BID Monika Araujo MD 1 tablet at 12/30/21 0827 bisacodyl (DULCOLAX) EC tablet 5 mg 5 mg Oral Daily Monika Araujo MD 5 mg at 12/30/21 0827 ondansetron (ZOFRAN) injection 4 mg 4 mg IntraVENous Q6H PRN Monika Araujo MD enoxaparin (LOVENOX) injection 40 mg 40 mg SubCUTAneous Daily Monika Araujo MD 40 mg at 12/29/21 1840 [Held by provider] LORazepam (ATIVAN) tablet 1 mg 1 mg Oral Q1H PRN Monika Araujo MD 1 mg at 12/28/21 1550 Or [Held by provider] LORazepam (ATIVAN) injection 1 mg 1 mg IntraVENous Q1H PRN Monika Araujo MD 1 mg at 12/29/21 0012 Or [Held by provider] LORazepam (ATIVAN) tablet 2 mg 2 mg Oral Q1H PRN Monika Araujo MD Or [Held by provider] LORazepam (ATIVAN) injection 2 mg 2 mg IntraVENous Q1H PRN Monika Araujo MD Or [Held by provider] LORazepam (ATIVAN) tablet 3 mg 3 mg Oral Q1H PRN Monika Araujo MD Or [Held by provider] LORazepam (ATIVAN) injection 3 mg 3 mg IntraVENous Q1H PRN Monika Arauoj MD 3 mg at 12/29/21 0120 Or [Held by provider] LORazepam (ATIVAN) tablet 4 mg 4 mg Oral Q1H PRN Monika Araujo MD Or [Held by provider] LORazepam (ATIVAN) injection 4 mg 4 mg IntraVENous Q1H PRN Monika Araujo MD ARE THERE PERTINENT UPDATES TO PAST,FAMILY, OR SOCIAL HISTORY?: No Subjective: States she is having generalized abdominal pain this am, it is similar to the chronic pain that shehas had for years due to her liver cirrhosis. She denies shortness of breath, she admits to coughing which is also chronic. Review of Systems Constitutional: Positive for activity change and appetite change. HENT: Negative for trouble swallowing. Respiratory: Positive for cough and shortness of breath. Cardiovascular: Positive for chest pain. Palpitations: intermittent. Gastrointestinal: Positive for abdominal pain and constipation. Negative for abdominal distention, diarrhea, nausea and vomiting. Genitourinary: Positive for difficulty urinating. Musculoskeletal: Positive for gait problem. Negative for arthralgias, back pain, myalgias and neck pain. Skin: Negative for wound. Neurological: Negative for dizziness, light-headedness and headaches. Psychiatric/Behavioral: Positive for confusion. PHQ In the last 2 weeks have you had: Little interest or pleasure in doing things No Been feeling down, depressed, or hopeless No If greater then 0, place CLP consult Date PHQ completed: 12/30/21 Objective: Patient Vitals for the past 24 hrs: BP Temp Temp src Pulse Resp SpO2 Height Weight 12/30/21 1100 114/63 -- -- 63 20 -- -- -- 12/30/21 1000 (!) 109/55 -- -- 66 20 -- -- -- 12/30/21 0900 110/75 -- -- 79 16 95 % -- -- 12/30/21 0813 (!) 101/53 97.3 F (36.3 C) Temporal 72 20 -- -- -- 12/30/21 0802 -- -- -- 70 22 98 % -- -- 12/30/21 0800 (!) 101/53 -- -- 63 21 98 % -- -- 12/30/21 0730 -- -- -- 69 -- -- -- -- 12/30/21 0700 110/63 -- -- 64 28 97 % -- -- 12/30/21 0600 115/71 -- -- 63 19 99 % -- -- 12/30/21 0500 115/69 -- -- 71 24 99 % -- -- 12/30/21 0400 107/62 98.8 F (37.1 C) Temporal 70 24 98 % -- 123 lb 9.6 oz (56.1 kg) 12/30/21 0321 -- -- -- 77 28 98 % -- -- 12/30/21 0300 124/64 -- -- 69 28 98 % -- -- 12/30/21 0200 125/81 -- -- 70 28 98 % -- -- 12/30/21 0100 137/65 -- -- 75 27 98 % -- -- 12/30/21 0000 (!) 140/70 98.7 F (37.1 C) Temporal 78 24 98 % -- -- 12/29/21 2300 (!) 144/76 -- -- 84 30 -- -- -- 12/29/21 2200 130/66 -- -- 97 19 97 % -- -- 12/29/21 2100 125/68 -- -- 90 29 97 % -- -- 12/29/212015 -- -- -- 91 30 96 % -- -- 12/29/212014 -- -- -- 92 30 95 % -- -- 12/29/212013 -- -- -- 89 30 95 % -- -- 12/29/21 2000 118/63 98.8 F (37.1 C) Temporal 90 28 96 % -- -- 12/29/21 1800 132/63 -- -- 82 26 97 % -- -- 12/29/21 1700 (!) 145/72 -- -- 81 25 97 % -- -- 12/29/21 1623 -- -- -- -- -- -- 5' (1.524 m) -- 12/29/21 1600 (!) 146/94 100.4 F (38 C) Temporal 94 29 -- -- -- 12/29/21 1529 -- -- -- 60 -- -- -- -- 12/29/21 1500 (!) 146/73 98.1 F (36.7 C) -- 83 29 95 % -- -- 12/29/21 1400 -- -- -- 81 26 97 % -- -- 12/29/21 1300 129/65 -- -- 86 26 97 % -- -- Date 12/30/21 0000 - 12/30/21 2359 Shift [id number] 6372-7772 2183-8594 24 Hour Total INTAKE P.O. 120 120 I.V.(mL/kg/hr) 580(1.3) 580 IV Piggyback 200 360 560 Shift Total(mL/kg) 900(16.1) 360(6.4) 1260(22.5) OUTPUT Urine(mL/kg/hr) 615(1.4) 450 1065 Shift Total(mL/kg) 615(11) 450(8) 1065(19) Weight (kg) 56.1 56.1 56.1 56.1 Last BM: [employer] Diet: Pureed with thin liquids (per speech) CVP: Yes Where: Right IJ Chest Tubes: none PHYSICAL: Physical Exam Vitals and nursing note reviewed. Constitutional: General: She is not in acute distress. Appearance: She is ill-appearing. She is not toxic-appearing. HENT: Head: Normocephalic and atraumatic. Right Ear: External ear normal. Left Ear: External ear normal. Nose: Nose normal. Mouth/Throat: Mouth: Mucous membranes are dry. Eyes: Extraocular Movements: Extraocular movements intact. Conjunctiva/sclera: Conjunctivae normal. Pupils: Pupils are equal, round, and reactive to light. Cardiovascular: Rate and Rhythm: Normal rate. Pulses: Normal pulses. Pulmonary: Effort: Pulmonary effort is normal. No respiratory distress. Breath sounds: Rhonchi present. Comments: High flow oxygen, wean to goal of 92% Abdominal: General: Bowel sounds are normal. There is no distension. Palpations: Abdomen is soft. There is no mass. Tenderness: There is abdominal tenderness. There is no guarding or rebound. Hernia: No hernia is present. Genitourinary: Comments: Costa to [place] Musculoskeletal: General: No tenderness or signs of injury. Normal range of motion. Cervical back: Normal range of motion and neck supple. No tenderness. Comments: Generalized weakness Skin: General: Skin is warm and dry. Capillary Refill: Capillary refill takes 2 to 3 seconds. Neurological: Mental Status: She is alert. Comments: Alert to place and year today Psychiatric: Mood and Affect: Mood normal. Comments: History of etoh withdraw Sutures or nicolas? No O2: High Flow / / /FiO2 : 50 % Data Review Data CBC with Differential: Lab Results Component Value Date/Time WBC 6.8 12/30/2021 06:17 AM RBC 2.80 12/30/2021 06:17 AM HGB 10.2 12/30/2021 06:17 AM HCT 29.7 12/30/2021 06:17 AM PLT 161 12/30/2021 06:17 AM CMP: Lab Results Component Value Date/Time NA 136 12/30/2021 07:31 AM K 2.7 12/30/2021 07:31 AM CL 108 12/30/2021 07:31 AM CO2 23 12/30/2021 07:31 AM BUN 8 12/30/2021 07:31 AM CREATININE 0.53 12/30/2021 07:31 AM GLUCOSE 70 12/30/2021 07:31 AM PROT 4.8 12/30/2021 07:31 AM LABALBU 2.3 12/30/2021 07:31 AM CALCIUM 7.7 12/30/2021 07:31 AM BILITOT 1.1 12/30/2021 07:31 AM ALKPHOS 52 12/30/2021 07:31 AM AST 42 12/30/2021 07:31 AM ALT 11 12/30/2021 07:31 AM BMP: Hepatic Function Panel:Ionized Calcium: No results found for: IONCA Magnesium: Lab Results Component Value Date/Time MG 1.9 12/30/2021 06:17 AM Phosphorus: Lab Results Component Value Date/Time PHOS 3.6 12/30/2021 07:31 AM PT/INR: Lab Results Component Value Date/Time PROTIME 10.4 12/27/2021 11:49 AM INR 1.0 12/27/2021 11:49 AM PTT: No results found for: APTT[APTT Last 3 Troponin: Lab Results Component Value Date/Time TROPONINI 0.124 12/30/2021 12:29 AM TROPONINI 0.156 12/29/2021 06:34 PM TROPONINI 0.162 12/29/2021 10:18 AM Urine Culture: No components found for: CURINE Blood Culture: No components found for: CBLOOD, CFUNGUSBL Blood Culture from Central Line: No components found for: CBLOODLN Stool Culture: No components found for: CSTOOL Sputum Culture: No components found for: CSPUTUM Sputum Culture for AFB: No components found for: CAFBSM Wound Culture: n/a Radiology: XR ABDOMEN (KUB) (SINGLE AP VIEW) Result Date: 12/30/2021 Patient Name: JAIMIE MCGOVERN Diagnostic Radiology ACCESSION EXAM DATE/TIME PROCEDURE ORDERING PROVIDER [id number] 12/30/2021 07:53 EDT CR Abdomen AP [id number] ISABEL VICK CPT code 20993 Reason For Exam (CR Abdomen AP) assess for cecal pneumatosis Report Examination: Abdomen: AP view. Comparison: 12/29/2021. Reason For Study: Assess for cecal pneumatosis. Findings/Interpretations: 1. Limited view of the right lower quadrant shows curvilinear lucenciescephalad to the right greater trochanter which may represent pneumatosis coli. Clarification with CT of the abdomen would be more beneficial. 2. Small amount residual colorectal contrast and solid content. 3. Tubular lucencies overlying the abdomen suggest distal small bowel obstruction. Further evaluation with CT scan of the abdomen and pelvis would be of value. Report Dictated on --- Final --- Dictated: 12/30/2021 11:07 am Dictating Physician: MD MAHAJAN B NELSON Signed Date and Time: 12/30/2021 11:24 am Signed by: MD MAHAJAN B NELSON Transcribed Date and Time: 12/30/2021 11:07 XR ABDOMEN (KUB) (SINGLE AP VIEW) Result Date: 12/29/2021 Patient Name: JAIMIE MCGOVERN Diagnostic Radiology ACCESSION EXAM DATE/TIME PROCEDURE ORDERING PROVIDER [id number] 12/29/2021 10:58 EDT CR Abdomen AP [id number] -BLAYNE ZELAYA CPT code 27070 Reason For Exam (CR Abdomen AP) distention, increase WOB Report CLINICAL INFORMATION: Abdominal pain. Distention. Supine KUB is provided. FINDINGS: Air, stool, and previously administered oral contrast are seen in nondistended loops of: to the level of the rectum. The small bowel is not dilated. IMPRESSION: 1. Nonobstructive bowel gas pattern. Report Dictated on --- Final --- Dictated: 12/29/2021 11:13 am Dictating Physician: MD LOYOLA JEFFREY Signed Date and Time: 12/29/2021 11:14 am Signed by: MD LOYOLA JEFFREY Transcribed Date and Time: 12/29/2021 11:13 CT CHEST W CONTRAST Result Date: 12/27/2021 Patient Name: JAIMIE MCGOVERN Computed Tomography ACCESSION EXAM DATE/TIME PROCEDURE ORDERING PROVIDER [id number] 12/27/2021 14:[address] Thorax w/ Contrast [id number] -MONIKA ARAUJO CPT code 25100 Q9967 Reason For Exam (CT Thorax w/ Contrast) CT esophogram for possible esophageal perforation Report EXAMINATION: CT of the chest with oral contrast (CT esophagram). EXAM DATE & TIME: 12/27/2021 2:58 PM EDT INDICATION: CT esophogram for possible esophageal perforation ADDITIONAL INFORMATION: 76-year-old female with suspected perforated esophagus presents for CT esophagram COMPARISON: None LIMITATIONS: None TECHNIQUE: [address] images were obtained of the chest during dynamic injection of oral contrast. Images were reformatted in coronal and sagittal projections using the raw CT data and were interpreted in conjunction with the axial imagesto render the findings listed below. Before infusion of intravenous contrast, radiology personnel in vestigated the possibility of an allergic history and any history of reaction to iodinated contrastmaterial. FINDINGS: Cardiovascular: Atherosclerotic vascular calcifications are present. Mediastinum/pericardium: A moderate amount of pneumomediastinum is present, tracking from the level of the thyroid gland, down to the gastroesophageal junction. No evidence of contrast extravasation into the mediastinum to suggest the presence of an esophageal injury. Thyroid: Unremarkable. Tracheobronchial tree: Some debris is present in the trachea and proximal mainstem bronchi. A large amount of debris is present in the bilateral lower lobe bronchioles, suspicious for aspiration. Pleura: There are large right and small left pleural effusions with associated atelectatic change. No evidence of pneumothorax. Computed Tomography Report Lungs: There is bibasilar scarring/atelectasis and partial collapseof the bilateral lower lobes. There is also mild patchy consolidation near the dependent aspects ofthe lung bases. Nodules: No nodules are present that require follow up. Lymph nodes: No emerging adenopathy. Included images of the upper abdomen: There is colonic interposition. Nodular hepatic margin is suggestive of cirrhotic liver morphology. There is moderate bilateral adrenal nodularity, leftgreater than right. Visualized musculoskeletal structures: No acute osseous abnormality is demonstrated. Mild multilevel spondylosis is present. IMPRESSION: 1. No contrast extravasation to suggest the presence of an esophageal injury. 2. Fairly extensive pneumomediastinum, spanning the level of thethyroid gland of the gastroesophageal junction. 3. Large right and small left pleural effusions with associated atelectatic change. 4. Debris in the trachea, mainstem bronchi and bilateral lower lobebronchioles, suspicious for aspiration. Clinical correlation recommended. 5. Hepatic cirrhosis. 6. Additional chronic findings as above. Report Dictated on --- Final --- Dictated: 12/27/2021 3:37 pm Dictating Physician: MD ARENAS CHRISTOPHER Signed Date and Time:12/27/2021 3:46 pm Signed by: MD ARENAS CHRISTOPHER Transcribed Date and Time: 12/27/2021 3:37 XR CHEST PORTABLE Result Date: 12/30/2021 Patient Name: JAIMIE MCGOVERN Diagnostic Radiology ACCESSION EXAM DATE/TIME PROCEDURE ORDERING PROVIDER [id number] 12/30/2021 06:05 EDT CR Chest Portable MD MACIEL ANDREW CPT code 61264 Reason For Exam (CR Chest Portable) patient with desaturation and tacypnea Report Indication: 76-year-old; inpatient; desaturation and tachypnea. Views: Chest portable Comparison: 12/29/2021 at 5:34 AM Findings: Right internal jugular approach central venous catheter is present with tip overlying the right atria. Cardiac monitoring wires and leads are present. The patient is rotated. The cardiomediastinal silhouette is enlarged. The osseous structures appear stable. A layering right pleural effusion is present which appears decreased compared to prior day. Smallleft pleural effusion. There is thickening of the interstitium.. IMPRESSION: Interval decrease in size of a RIGHT pleural effusion. Bilateral pleural effusions, right greater than left. Pulmonary vasc ular congestion.. Report Dictated on --- Final --- Dictated: 12/30/2021 7:09 am Dictating Physician: MD CARLIN JENNIFER R Signed Date and Time: 12/30/2021 7:12 am Signed by: MD CARLIN JENNIFER R Transcribed Date and Time: 12/30/2021 7:09 XR CHEST PORTABLE Result Date: 12/29/2021 Patient Name: JAIMIE MCGOVERN Diagnostic Radiology ACCESSION EXAM DATE/TIME PROCEDURE ORDERING PROVIDER [id number] 12/29/2021 05:47 EDT CR Chest Portable MONIKA PERES CPT code 58576 Reason For Exam (CR Chest Portable) pneumomediastinum ReportCLINICAL INFORMATION: Respiratory abnormality. History of pneumomediastinum. CHEST X- RAY, PORTABLE,0534 hours: An AP portable view is compared to the prior examination of earlier the same day at 0044 hours. There is no change in the position of the right internal jugular central venous catheter. Amoderate right pleural effusion appears to be slightly increased but differences may be positional.There is mild to moderate pulmonary vascular congestion. No pneumomediastinum is visualized. No other changes. Report Dictated on --- Final --- Dictated: 12/29/2021 8:11 am Dictating Physician: MD MCKENNA HARLAN Signed Date and Time: 12/29/2021 8:20 am Signed by: MD MCKENNA HARLAN Transcribed Date and Time: 12/29/2021 8:11 XR CHEST PORTABLE Result Date: 12/29/2021 Patient Name: JAIMIE MCGOVERN Diagnostic Radiology ACCESSION EXAM DATE/TIME PROCEDURE ORDERING PROVIDER [id number] 12/29/2021 00:49 EDT CR Chest Portable MD MACIEL ANDREW CPT code 37731 Reason For Exam (CR Chest Portable) patient with desaturation and tacypnea Report Chest one view HISTORY: Desaturation Right IJ central line. Moderate right pleural effusion. Adjacent right lower lung infiltrate. Cardiomegaly. Report Dictated on --- Final --- Dictated: 12/29/2021 0:47 am Dictating Physician: MD LIAO MALAY Signed Date and Time: 12/29/2021 0:47 am Signed by: MD LIAO MALAY Transcribed Date and Time: 12/29/2021 0:47 XR CHEST PORTABLE Result Date: 12/28/2021 Patient Name: JAIMIE MCGOVERN Diagnostic Radiology ACCESSION EXAM DATE/TIME PROCEDURE ORDERING PROVIDER [id number] 12/28/2021 12:22 EDT CR Chest Portable MD GONZALEZ DAVID CPT code 65539 Reason For Exam (CR Chest Portable) s/p R IJ CVC placement Report PORTABLE CHEST (Frontal View) History: Catheter placement Comparison: 12/28/2021, 0556 hours Findings: Frontal portable chest view shows the tip of newly inserted right IJ catheter overlies the right atrium/SVC junction. There is large right and small left pleural effusion. There are also right and smaller left basilar atelectasis/infiltrate. The lungs appear less congested compared to last exam. Theheart is borderline in size. There is no mediastinal widening, pneumothorax, or other significant interval change. Report Dictated on --- Final --- Dictated: 21:35 pm Dictating Physician: MD SALAZAR AHMAD Signed Date and Time: 12/28/2021 1:38 pm Signed by: MITCH ARAUZ MD, AHMAD Transcribed Date and Time: 12/28/2021 1:35 XR CHEST PORTABLE Result Date: 12/28/2021 Patient Name: JAIMIE MCGOVERN Diagnostic Radiology ACCESSION EXAM DATE/TIME PROCEDURE ORDERING PROVIDER [id number] 12/28/2021 05:56 EDT CR Chest Portable [id number] MONIKA AYOUB CPT code 55624 Reason For Exam (CR Chest Portable) pneumomediastinum ReportPORTABLE CHEST (Frontal View) History: Respiratory abnormality, pneumomediastinum, follow-up Comparison: 12/27/[address] Findings: Frontal portable chest view shows haziness throughout the right lung and to a lesser degree left lung base suggesting bilateral infiltrate/edema with moderate right and a small left pleural effusions. The heart is borderline in size. Compared to the chest CT of 12/27/2021, previously described pneumomediastinum could not be appreciated on the current radiographs (CTmore sensitive). Continued evaluation and follow-up recommended. Report Dictated on --- Final --- Dictated: 12/28/2021 8:18 am Dictating Physician: MD SALAZAR AHMAD Signed Date and Time: 12/28/2021 8:28 am Signed by: MD SALAZAR AHMAD Transcribed Date and Time: 12/28/2021 8:18 US GUIDE THORACENTESIS Result Date: 12/30/2021 Patient Name: JAIMIE MCGOVERN Ultrasound ACCESSION EXAM DATE/TIME PROCEDURE ORDERING PROVIDER [id number] 12/29/2021 16:07 EDT US Thora-Aspir Pleura w/ [id number] -MARGISABELLATTA, Image MONIKA CPT code 52563 Reason For Exam (US Thora-Aspir Pleura w/ Image) Thoracentesis Right pleural effusion. Report PROCEDURE: Ultrasound-guided thoracentesis Procedural PersonnelAttending physician(s): Quinn Pastor MD Advanced practice provider(s): Nicola Rob PA-C Indication: Pleural effusion Additional clinical history: None Complications: No immediate complications. IMPRESSION: Successful ultrasound-guided right thoracentesis with drainage of 500 milliliters of cloudy sita-colored serous fluid. Attending physician was present for the entirety of the procedure. PROCEDURE SUMMARY: - Limited thoracic ultrasound - Ultrasound-guided thoracentesis - Additional procedure(s): None PROCEDURE DETAILS: Pre-procedure Consent: Informed consent for the procedure including risks, benefits and alternatives was obtained and time-out was performed prior to the procedure. Preparation: The site was prepared and draped using maximal sterile barrier technique including cutaneous antisepsis. Anesthesia/sedation None Limited thoracic ultrasound Limited thoracic ultrasound was performed using a curved transducer. A safe window for thoracentesis was identified. Moderate to large pleural effusion was seen on the sideof aspiration. The contralateral side was not investigated. Ultrasound Report Thoracentesis Local anesthesia was administered. Ultrasound was used to pick a safe access site. A permanent image was stored. The pleural space was accessed and fluid return confirmed position. The fluid was drained. Catheter placed: 5F Yueh Closure The catheter was removed. A sterile bandage was applied. Post-drainagehemithorax findings: Minimal effusion Additional Details Additional description of procedure: None E quipment details: None Specimens removed: Pleural fluid Estimated blood loss (mL): Less than 10 Report Dictated on --- Final --- Dictated: 12/29/2021 4:13 pm DictatingPhysician: MD PASTOR KEVIN Signed Date and Time: 12/30/2021 8:18 am Signed by: MD PASTOR KEVIN Transcribed Date and Time: 12/29/2021 4:14 Patient Active Problem List Diagnosis Pneumatosis of intestines Debility At risk for delirium Alcohol abuse Acute respiratory insufficiency Shortness of breath Pleural effusion on right Palliative care encounter Demand ischemia of myocardium (HCC) Pneumomediastinum (HCC) Elevated troponin ASSESSMENT: 76 yo F who presents with cecal pneumatosis and pneumomediastinum with low concern for esophageal source PLAN: Neuro/Spine: - alcohol withdraw symptoms - scheduled Tylenol, Morphine IV prn, Oxy prn - CIWA protocol for likely withdrawal (2-3 boxes of wine weekly) - folic acid and thiamine - 12/29 Phenobarb decreased from 32.5mg to 16.25 Q8hrs - palliative consult, following for goals of care - geriatrics consult - Melatonin nightly HEENT: - no acute issues Cardiovascular: - MAP goal >65, no issues at this time - prn antihypertensives for SBP>160 - Hydralazine and Labetalol prn - 12/29 EKG: NSR 116, Qtc 461 - trop 0.124 from 0.162, continue to trend (complaint of central CP upon admission) - Consult Cardiology -elevated troponin likely due to ischemic demand from acute illness Pulmonary: - R pleural effusion - 12/29 [facility] thoracentesis: 525ml bloody fluid - Lights criteria ordered and pending - goal O2 92% given COPD - 12/30 High Flow oxygen this am, wean - acapella, IS - duonebs q4h, 3% nebs TID - covid negative - 12/29 Procal elevated 3.68, repeat Q48hrs - 12/29 chest physiotherapy - Cardiothoracic consult: -Thoracentesis per SICU team today -Will follow-up thoracentesis studies -Management of cecum per Gen surg -Will continue to follow to assess progression of symptoms FEN/GI: - discontinue LR at 50cc/hr - 12/30 Speech eval: Pureed with thin - lactic acid 1.0, stop trending - central line placed for labs and IVF - 12/30 Increase Bowel regimen - Zofran prn - Protonix IV daily - 12/30 hypokalemia 2.8, 40meq IV - repeat CMP, LFTs WNL - 12/30 hypocalcemia 7.7, albumin 2.3 - KUB, daily exams - Serial abdominal exams - General Surgery consult: -serial abdominal exams, currently non-acute - contiune IVF - CTS on board no intervention of pneumomediastinum - other management per SICU - ACS to follow while SICU team also following, will await floor transfer to assume primary care thereafter. : - Urinary retention, bladder scan for 400cc 12/28 - Costa 12/29 - urine antigens negative Heme: - Hgb: stable 10.2 from 12.1 from 13.5 ID: - empiric Zosyn with cecal pneumatosis - thoracentesis 12/29 given productive cough and chest pain - Thoracentesis fluid culture, gram stain with no organisms seen - MRSA nasal swab pending - Blood cultures, no growth to date (second culture likely contamination) Endo: - hx hypothyroidism - TSH, WNL - Home Synthroid 50mcg daily Lines/Devices: - Right IJ central line - Costa - Soft wrist restraints prn Prophylaxis: DVT: Lovenox Has DVT PPX been started? Yes If no, why? started GI: protonix IV Pressure Ulcer: turns per nursing, patient ambulatory Musculoskeletal: - no acute issues - PT/OT recs pending WB Status: RUE:AT LUE: AT RLE: AT LLE: AT Medications Reconciled- Yes [x] NO [], why Disposition: Continue T2 care, monitor respiratory status closely. Wean high flow oxygen to goal of92%. Stop IVFs today. Replace K+ today, will recheck labs at 1400. Daily KUB, CXRs. ABG pending. Stop trending troponins. Speech cleared for Pureed with thin liquids. Associated attestation - Erendira Maciel MD - 12/31/2021 11:28 AM EDT ATTENDING ADDENDUM Active Diagnoses/Problems this Admission: Hospital Problems Last Modified POA * (Principal) Pneumomediastinum (HCC) 12/29/2021 Yes Demand ischemia of myocardium (HCC) 12/29/2021 Yes Pneumatosis of intestines 12/27/2021 Yes Debility 12/28/2021 Yes At risk for delirium 12/28/2021 Yes Alcohol abuse 12/28/2021 Yes Acute respiratory insufficiency 12/29/2021 Yes Shortness of breath 12/29/2021 Yes Pleural effusion on right 12/29/2021 Yes Palliative care encounter 12/29/2021 Yes Elevated troponin 12/30/2021 Yes I independently saw the above patient and reviewed the recent events, imaging, labs, vital signs; Iperformed a physical exam and ROS. My findings agree with the above note except for any details corrected below. A complete review of systems was obtained and is negative except as stated in HPI. 76 yo F who presents with cecal pneumatosis and pneumomediastinum Acute respiratory insuffiencey High flow Phenobarb to 16.25 TID Cards consult Neurological system - Acute encephalopathy likely metabolic --> ETOH withdrawal --> phenobarb - appreciate pall recs - Multimodal pain control - Delirium precautions, melatonin nightly Circulatory system - Vtach - elevated trop - appreciate cards consult --> monitor, demand - SBP < 180 Respiratory system - 525ml from thoracentesis --> bloody - follow up cultures - acute respiratory insufficiency - weaning hi flow - 92% - Aggressive pulmonary hygiene Gastrointestinal system - 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 - puree with thin - LFTs wnl - history of etoh - Pneumatosis --> serial KUB and abd exams - Bowel regimen - CTS --> no injury to esophagus --> pneumomediastinum likely COPD Renal function - urinary retention - Costa - lactic acidosis - resolved - D5 1/2NS 50 Immunologic system - Monitor for fevers - zosyn x 7 days - trend procalc Hematologic system - Monitor hemoglobin Endocrine system - Monitor glucose - hypoglycemic protocol - history of hypothyroid - no meds --> TSH wnl Integumentary system (GI and cutaneous) - Skin checks Musculoskeletal system - PTOT Ppx - Lovenox - protonix Critical Care time spent 40 min. The time involved in the performance of this care was exclusive ofseparately billable procedures, teaching time and treating other patients. The time was spent personally by the attending physician for the following activities: examination of the patient, ordering and/or performing treatment, reviewing the laboratory and radiographic studies, and if applicable, ventilator management and blood gas interpretation. Critical Care was necessary because of an illness or injury that actively impaired one or more vital organ systems such that there was a high probability of imminent life treatening deterioration in the patient's condition. The following organ systems are involved: Neurologic, Respiratory, ID Erendira Maciel MD Division of Trauma Department of Surgery [facility] ~~~~~~~~~~~~~~~~~~~~~~~~~~~~~~~~~~~~~~~~~~~~~~~~~~~~~~~~~~~~~~~~~~~~~~~ This note may have been dictated using [employer] Edition 2.6 and/or [employer] Voice Recognition Feature. The document was proofread; however, unrecognized voice recognition flight dispatcher errors may be present. * Maki Carey RD, LD - 12/29/2021 4:56 PM EDT Comprehensive Nutrition Assessment Type and Reason for Visit: Initial, Consult (Community [facility] W[facility] Prevention 12/29/21) Nutrition Recommendations/Plan: Continue NPO. If po is contraindicated can provide EN. Recommend for EN: Peptide Based (Vital 1.5) @ 35 mls/hour = 1260 kcals, 56g protein, 641 mls free H20 = 24 kcals/kg + 1.07g protein/kg ABW (52.2kgs). Monitor nutritional status. Malnutrition Assessment: Malnutrition Status: At risk for malnutrition (Comment) (12/29/21 2056) Context: Acute Illness Findings of the 6 clinical characteristics of malnutrition: Energy Intake: Mild decrease in energy intake (Comment) Weight Loss: Unable to assess Body Fat Loss: Unable to assess Muscle Mass Loss: Unable to assess Fluid Accumulation: No significant fluid accumulation Supervisor [place] Strength: Not Performed Nutrition Assessment: Pt is a 76 y.o. female with PMH significant for alcohol related liver cirrhosis (diagnosed ~5 yearsago), +1 ppd smoker, Buerger s disease (thromboangiitis obliterans), drinks ~3 glasses of wine daily, open vicenta, appy, and hysterectomy who presents [facility] from [facility] for concern for pneumatosis of the cecum concerning for bowel ischemia/esophageal perf in setting of right sided abd/chest/neck pain. CT esophagram - no extravasation of contrast. Pt with usual poor intake per family, has been tolerating wine and tea, no choking or emesis per pt. CIWA in place; she became increasingly agitated and confused overnight requiring Ativan and Phenobarb. Geriatric consult notes acute on chronic debility. Unable to follow simple commands or participate in her exam. Nutrition Related Findings: +BS, abd soft, no edema Wound Type: None Current Nutrition Intake & Therapies: Average Meal Intake: NPO Average Supplements Intake: NPO Diet NPO Exceptions are: Sips of Water with Meds Anthropometric Measures: Height: 5' (152.4 cm) [place] Body Weight (IBW): 100 lbs (45 kg) Admission Body Weight: 115 lb (52.2 kg) (stated on admission) Current Body Weight: 122 lb 2.2 oz (55.4 kg), 122.1 % IBW. Weight Source: (estimated) Current BMI (kg/m2): 23.9 BMI Categories: Normal Weight (BMI 18.5-24.9) Estimated Daily Nutrient Needs: Energy Requirements Based On: Kcal/kg Weight Used for Energy Requirements: Admission Energy (kcal/day): 25-28 kcals/kg = 4067-4909 kcals/day Weight Used for Protein Requirements: Admission Protein (g/day): 1.2-1.4g protein/kg IBW = 63-73g protein/day Method Used for Fluid Requirements: ml/Kg Fluid (ml/day): per MD BMP: Recent Labs 12/27/21 1149 12/29/21 0148 NA 140 136 K 4.4 3.4* CL 112* 107 CO2 20* 23 BUN 9 7* CREATININE 0.52 0.50* GLUCOSE 120* 104* CALCIUM 7.9* 8.1* MG -- 1.6 BG - WNL. Mg - WNL. K+ - decreased. HEPATIC: Recent Labs 12/27/21 1149 AST 36 ALT 14 BILITOT 0.8 ALKPHOS 56 Nutrition Diagnosis: Inadequate energy intake related to cognitive or neurological impairment as evidenced by NPO or clear liquid status due to medical condition Nutrition Interventions: Food and/or Nutrient Delivery: Continue NPO (? start EN) Nutrition Education/Counseling: Education not indicated Coordination of Nutrition Care: Continue to monitor while inpatient Goals: Goals: Initiate nutrition support Nutrition Monitoring and Evaluation: Food/Nutrient Intake Outcomes: Enteral Nutrition Intake/Tolerance, Diet Advancement/Tolerance Physical Signs/Symptoms Outcomes: Biochemical Data, Nutrition Focused Physical Findings, Skin, Weight, GI Status, Fluid Status or Edema, Hemodynamic Status Discharge Planning: Too soon to determine Maki Carey RD, JOSELUIS Contact: Pager #[phone] * Julio César Raygoza MD - 12/29/2021 4:42 PM EDT CARDIOLOGY CONSULTATION Patient Name: Jaimie Mcgovern : 1945 Reason for Consultation: Elevated troponin History of Present Illness: Jaimie Mcgovern is 76 years old. She was transported from [facility] to our institution due to chest and abdominal pain. She was found on CAT scan to pneumomediastinum. We have been asked to see due to some reported chest discomfort and elevated troponin. Patient is not able to give any history since admitted. He has a history of alcohol and smoking use. Daughter was present which was able to provide some history. She has a history of alcohol abuse with cirrhosis. Electrocardiogram onadmission showed a sinus rhythm late transition mild nonspecific T flattening the second and third EKG showed similar findings. No acute significant EKG changes were seen. Initial troponin 0.0250.039and 0.162. Hemoglobin 17.5 with macrocytic indices. Admission she did have elevated bands of 35% with a white blood cell count of 8400. Procalcitonin 3.[address] scan trivial coronary calcification was seen multiple small area of the LAD. Circumflex and right coronary arteries. To be grossly free of coronary calcification. Past Medical History: has a past medical history of Alcoholic cirrhosis (HCC), Demand ischemia (HCC), Hypothyroid, and Pneumomediastinum (HCC). Surgical History: has a past surgical history that includes Cholecystectomy; Appendectomy; and Hysterectomy. Social History: Lives by self, small 1 room apartment, smokes and drinks heavily for years. Daughter helps with some day-to-day activity. She does not climb. Family History: Not able to be obtained Medications: Non on admit Allergies: Patient has no allergy information on record. Review of Systems: Review of Systems Unable to perform ROS: Mental status change Physical Examination: VitalSigns: BP (!) 146/94 Pulse 94 Temp 100.4 F (38 C) (Temporal) Resp 29 Ht 5' (1.524 m) Wt 115 lb (52.2 kg) SpO2 95% BMI 22.46 kg/m Physical Exam Constitutional: Appearance: She is well-developed and underweight. She is ill-appearing. Interventions: Face mask in place. HENT: Head: Normocephalic. Eyes: General: No scleral icterus. Conjunctiva/sclera: Conjunctivae normal. Pupils: Pupils are equal, round, and reactive to light. Neck: Thyroid: No thyromegaly. Vascular: No carotid bruit, hepatojugular reflux or JVD. Cardiovascular: Rate and Rhythm: Normal rate and regular rhythm. Heart sounds: Normal heart sounds. No murmur heard. No friction rub. No gallop. Pulmonary: Effort: No respiratory distress. Breath sounds: Transmitted upper airway sounds present. Decreased breath sounds and rhonchi present. No wheezing or rales. Chest: Chest wall: No tenderness. Abdominal: General: Abdomen is flat. Bowel sounds are decreased. There is no distension. Palpations: There is no hepatomegaly or splenomegaly. Tenderness: There is no abdominal tenderness. There is no guarding or rebound. Musculoskeletal: Cervical back: No edema or erythema. Comments: Gait not able to be tested due to the acuity of illness Skin: General: Skin is warm and dry. Findings: No bruising. Comments: Cool extremities, not mottled , slightly reddened, no edema Neurological: General: No focal deficit present. Mental Status: She is lethargic. Psychiatric: Mood and Affect: Mood is not depressed. Comments: Unable to obtain adequate psychiatric evaluation due to the patient being sedated for alcohol withdrawal as well as the acuity of illness Alert and Oriented X 3 Pertinent Labs: CBC: Recent Labs 12/27/21 1149 12/29/21 0148 WBC 8.4 10.6 HGB 13.5 12.1 PLT 219 178 BMP: Recent Labs 12/27/21 1149 12/29/21 0148 NA 140 136 K 4.4 3.4* CL 112* 107 CO2 20* 23 BUN 9 7* CREATININE 0.52 0.50* GLUCOSE 120* 104* ABGs: Lab Results Component Value Date/Time PHART 7.436 12/29/2021 01:39 AM PO2ART 64.8 12/29/2021 01:39 AM [id number] 31.1 12/29/2021 01:39 AM INR: Recent Labs 12/27/21 1149 INR 1.0 PRO-BNP: No results for input(s): BNP in the last 72 hours. TSH: Lab Results Component Value Date TSH 2.263 12/29/2021 Cardiac Injury Profile: Recent Labs 12/29/21 0148 12/29/21 1018 TROPONINI 0.039* 0.162* Lipid Profile: No results found for: TRIG, HDL, LDLCALC, CHOL Hemoglobin A1C: No components found for: HGBA1C ECG: Sinus rhythm late transition no acute EKG changes Assessment: Principal Problem: Pneumomediastinum (HCC) Active Problems: Demand ischemia of myocardium (HCC) Pneumatosis of intestines Debility At risk for delirium Alcohol abuse Acute respiratory insufficiency Shortness of breath Pleural effusion on right Palliative care encounter Resolved Problems: * No resolved hospital problems. * Plan: Jaimie Mcgovern Presents with both chest and abdominal discomfort to an outside facility. She was found to have a pneumomediastinum as well as colonic pneumatosis. She currently is in a sinus rhythm. I did a [id number] echocardiogram which showed dynamic left ventricular function with no wall motion abnormalityseen. Valvular structures were grossly normal. Her cardiac biomarkers are slightly elevated. Likelythis is just demand ischemia. CT scan of her chest, which I personally reviewed showed no significant coronary calcification. She had a pleural effusion drained Which appears somewhat bloody. Cytology and cell count pending. She had 1 of 2 blood cultures positive for staphylococcal species. She Does have an elevated procalcitonin level and bands present. She is on broad spectrum antibiotics. At this time no specific additional cardiac testing would be required. We will see again with you in the morning. Again likely the slight troponin rise is from demand ischemia from her acute illness Julio César Raygoza MD In preparation for this encounter, we have personally reviewed pertinent lab work, imaging, and cardiac testing. NOTE: This report was transcribed using voice recognition software. Every effort was made to ensureaccuracy; however, inadvertent computerized flight dispatcher errors may be present. * Nadira Sanchez - 12/29/2021 2:31 PM EDT Occupational Therapy Facility/Department: [facility] ICU T2 Occupational Therapy Initial Assessment Name: Jaimie Mcgovern : 1945 Date of Service: 12/29/2021 OT eval and treat orders received. RN requested to hold therapy at this time d/t noting pt with worsening condition. Will re-attempt at later date. Nadira Sanchez, S/OT * Mily Duarte - 12/29/2021 11:34 AM EDT Physical Therapy PT evaluation orders received. Per RN, hold PT. Per MD notes worsening condition. Will reattempt PTevaluation at a later date or as schedule allows. Mily Duarte, SPT * Kristopher Todd APRN - [place] - 12/29/2021 9:58 AM EDT Images from the original note were not included. [facility] Geriatric Medicine Inpatient Consult Service Admission Date: 12/27/2021 Assessment Active Problems: Pneumatosis of intestines Debility At risk for delirium Alcohol abuse Resolved Problems: * No resolved hospital problems. * Plan Debility -acute on chronic debility -acute reasons: pleural effusion, pneumomediastinum, cecal pneumatosis -chronic etiology: physical deconditioning, alcohol use, tobacco use, advanced age -PT and OT - will help provide discharge recommendations. High risk for needing facility based rehab following hospitalization -patient reports good family and community support. Unable to obtain collateral information from daughter today to see if she was having more difficulty managing at home -would benefit from a more thorough cognitive evaluation when she is physically feeling better. At Risk for Delirium -risk factors include: age, pain, pain medication, frailty, alcohol use, acute illness -monitor bowels/ bladder -adequate pain control -delirium protocol -recommend scheduling melatonin at night. Alcohol Abuse -ciwa protocol per primary team Addendum Medication Recommendations --Change current thiamine order to 500 mg in 100 mL NS or D5W IV TID for 3-7 days, then thiamine 250 mg IV daily for 3-5 days, then 100 mg daily until no longer at risk due to altered mental status with prior to admission alcohol use --Reinitiate home levothyroxine 50 mcg PO daily --Consider addiction medicine consult for additional assistance managing phenobarbital and use of lorazepam per CIWA scale. Follow-up: 1-2 days Subjective Chief Complaint: abd/chest pain, shortness of breath Geriatrics consulted for frailty, lives independently, heavy ETOH/Tobacco use HPI- The patient is new to me but seen by the Geriatric Inpatient Consult team. 76 y.o. year-old female admitted to acute care from home for abd/chest pain, sob. Diagnosed with cecal pneumatosis/ pneumomediastinum. Interval History: Remains on ICU. 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 On High Flow NC Pt in bed with family at bedside. Pt awaken briefly but despite several attempts is unable to provide feedback. Await PT recommendations Review of Systems Unable to perform ROS: Mental status change Objective BP 118/67 Pulse 81 Temp 98.4 F (36.9 C) (Temporal) Resp 18 Ht 5' (1.524 m) Wt 115 lb (52.2 kg) SpO2 92% BMI 22.46 kg/m Intake/Output Summary (Last 24 hours) at 12/29/2021 0958 Last data filed at 12/29/2021 0924 Gross per 24 hour Intake 2683 ml Output 3600 ml Net -917 ml Patient Vitals for the past 96 hrs (Last 3 readings): Weight 12/27/21 1040 115 lb (52.2 kg) Current Facility-Administered Medications: sodium chloride (Inhalant) 3 % nebulizer solution 4 mL, 4 mL, Nebulization, PRN calcium gluconate 1,000 mg in dextrose 5 % 100 mL IVPB, 1,000 mg, IntraVENous, Once folic acid 1 mg in sodium chloride 0.9 % 50 mL IVPB, 1 mg, IntraVENous, Daily PHENobarbital (LUMINAL) injection 16.25 mg, 16.25 mg, IntraVENous, 3 times per day bisacodyl (DULCOLAX) suppository 10 mg, 10 mg, Rectal, Daily sodium chloride (Inhalant) 3 % nebulizer solution 4 mL, 4 mL, Nebulization, PRN melatonin SL liquid 0.3 mg, 0.3 mg, SubLINGual, Nightly PRN thiamine (B-1) injection 100 mg, 100 mg, IntraVENous, Daily ipratropium-albuterol (DUONEB) nebulizer solution 1 ampule, 1 ampule, Inhalation, Q4H WA labetalol (NORMODYNE;TRANDATE) injection 10 mg, 10 mg, IntraVENous, Q6H PRN hydrALAZINE (APRESOLINE) injection 10 mg, 10 mg, IntraVENous, Q6H PRN pantoprazole (PROTONIX) 40 mg in sodium chloride (PF) 10 mL injection, 40 mg, IntraVENous, Daily piperacillin-tazobactam (ZOSYN) 4500 mg in dextrose 100 mL IVPB extended infusion (premix), 4,500 mg, IntraVENous, Q6H sodium chloride flush 0.9 % injection 5-40 mL, 5-40 mL, IntraCATHeter, Q8H sodium chloride flush 0.9 % injection 5-40 mL, 5-40 mL, IntraCATHeter, PRN lactated ringers infusion, , IntraVENous, Continuous sodium chloride flush 0.9 % injection 5-40 mL, 5-40 mL, IntraVENous, 2 times per day sodium chloride flush 0.9 % injection 5-40 mL, 5-40 mL, IntraVENous, PRN 0.9 % sodium chloride infusion, , IntraVENous, PRN acetaminophen (TYLENOL) tablet 1,000 mg, 1,000 mg, Oral, 3 times per day oxyCODONE (ROXICODONE) immediate release tablet 5 mg, 5 mg, Oral, Q4H PRN OR oxyCODONE (ROXICODONE) immediate release tablet 10 mg, 10 mg, Oral, Q4H PRN morphine sulfate (PF) injection 2 mg, 2 mg, IntraVENous, Q2H PRN OR morphine sulfate (PF) injection 4 mg, 4 mg, IntraVENous, Q2H PRN lidocaine 4 % external patch 1 patch, 1 patch, TransDERmal, Daily sennosides-docusate sodium (SENOKOT-S) 8.6-50 MG tablet 1 tablet, 1 tablet, Oral, BID bisacodyl (DULCOLAX) EC tablet 5 mg, 5 mg, Oral, Daily ondansetron (ZOFRAN) injection 4 mg, 4 mg, IntraVENous, Q6H PRN enoxaparin (LOVENOX) injection 40 mg, 40 mg, SubCUTAneous, Daily [Held by provider] LORazepam (ATIVAN) tablet 1 mg, 1 mg, Oral, Q1H PRN OR [Held by provider] LORazepam (ATIVAN) injection 1 mg, 1 mg, IntraVENous, Q1H PRN OR [Held by provider] LORazepam (ATIVAN) tablet 2 mg, 2 mg, Oral, Q1H PRN OR [Held by provider] LORazepam (ATIVAN) injection 2 mg, 2mg, IntraVENous, Q1H PRN OR [Held by provider] LORazepam (ATIVAN) tablet 3 mg, 3 mg, Oral, Q1H PRN OR [Held by provider] LORazepam (ATIVAN) injection 3 mg, 3 mg, IntraVENous, Q1H PRN OR [Held by provider] LORazepam (ATIVAN) tablet 4 mg, 4 mg, Oral, Q1H PRN OR [Held by provider] LORazepam (ATIVAN) injection 4 mg, 4 mg, IntraVENous, Q1H PRN Physical Exam Constitutional: mild acute distress, thin, frail, disheveled Psych: Mood and affect somnolent . Poor eye contact. Cardiovascular: Regular rate and rhythm, no murmur, no BLE edema Pulmonary/Chest: Diminished to auscultation bilaterally, Increased respiratory effort, no coughing noted Abdominal: Soft, not distended, no tenderness to palpation, BS present, Neurological: somnolent, doesn't respond appropriately , inattentive, speech is did not verbalize ,disoriented disoriented , does not follow commands, no tremor and no rigidity Skin: warm and dry, no visible rashes or wounds Labs and Imaging: Recent Results (from the past 24 hour(s)) Lactic Acid Collection Time: 12/28/21 1:31 PM Result Value Ref Range Lactic Acid 3.6 (HH) 0.7 - 2.0 mmol/L Troponin Collection Time: 12/28/21 1:31 PM Result Value Ref Range Troponin I 0.025 0.000 - 0.034 ng/mL Lactic Acid Collection Time: 12/28/21 7:27 PM Result Value Ref Range Lactic Acid 2.4 (HH) 0.7 - 2.0 mmol/L Troponin Collection Time: 12/28/21 7:27 PM Result Value Ref Range Troponin I 0.027 0.000 - 0.034 ng/mL POC Arterial Respiratory Panel - Rapid Response Collection Time: 12/29/21 1:39 AM Result Value Ref Range POC Sodium 135 133 - 145 mmol/L POC Potassium 3.4 3.4 - 5.1 mmol/L POC Hematocrit 40 37 - 52 % pH, Arterial 7.436 7.350 - 7.450 NA pCO2, Arterial 31.1 (L) 35.0 - 45.0 mm[Hg] pO2, Arterial 64.8 (L) 80.0 - 100.0 mm[Hg] HCO3, Arterial 20.9 (L) 21.0 - 25.0 mmol/L Base Excess, Arterial -2.3 -3.0 - 3.0 mmol/L O2 Sat, Arterial 93.3 (L) 95.0 - 100.0 % TCO2, Arterial 21.9 (L) 23.0 - 27.0 mmol/L Protein, Total Collection Time: 12/29/21 1:48 AM Result Value Ref Range Total Protein 5.5 (L) 6.3 - 8.2 g/dL Lactate Dehydrogenase Collection Time: 12/29/21 1:48 AM Result Value Ref Range LD 199 120 - 246 U/L Troponin Collection Time: 12/29/21 1:48 AM Result Value Ref Range Troponin I 0.039 (H) 0.000 - 0.034 ng/mL Lactic Acid Collection Time: 12/29/21 1:48 AM Result Value Ref Range Lactic Acid 2.1 (HH) 0.7 - 2.0 mmol/L CBC with Auto Differential Collection Time: 12/29/21 1:48 AM Result Value Ref Range WBC 10.6 3.6 - 10.7 10*3/uL RBC 3.30 (L) 3.80 - 5.20 10*6/uL Hemoglobin 12.1 11.7 - 16.0 g/dL Hematocrit 35.3 35.0 - 47.0 % MCV 106.9 (H) 79.0 - 98.0 fL MCH 36.6 (H) 26.0 - 34.0 pg MCHC 34.2 32.0 - 36.0 % RDW 16.8 (H) 11.5 - 14.5 % Platelets 178 140 - 440 10*3/uL MPV 6.7 (L) 7.4 - 12.4 fL Granulocytes % 92.0 (H) 40.0 - 80.0 % Lymphocyte % 3.5 (L) 20.0 - 40.0 % Monocytes 4.0 2.0 - 10.0 % Eosinophils 0.1 (L) 1.0 - 6.0 % Basophils 0.4 0.0 - 2.0 % Absolute Neut # 9.8 (H) 1.8 - 7.0 10*3/uL Absolute Lymph # 0.4 (L) 1.0 - 4.3 10*3/uL Absolute [place] # 0.4 0.0 - 0.8 10*3/uL Absolute Eos # 0.0 0.0 - 0.5 10*3/uL Absolute Baso # 0.0 0.0 - 0.2 10*3/uL Basic Metabolic Panel w/ Reflex to MG Collection Time: 12/29/21 1:48 AM Result Value Ref Range Sodium 136 135 - 145 mmol/L Potassium 3.4 (L) 3.5 - 5.1 mmol/L Chloride 107 98 - 107 mmol/L CO2 23 22 - 30 mmol/L Anion Gap 6 3 - 13 mmol/L Glucose 104 (H) 70 - 100 mg/dL BUN 7 (L) 9 - 20 mg/dL Creatinine 0.50 (L) 0.52 - 1.25 mg/dL eGFR >90.0 >60 mL/min EGFR IF NonAfrican [place] >90.0 >60 mL/min Calcium 8.1 (L) 8.4 - 10.4 mg/dL Magnesium Collection Time: 12/29/21 1:48 AM Result Value Ref Range Magnesium 1.6 1.6 - 2.3 mg/dL No results found for: TSH No results found for: [id number] No results found for: VITD25 Reviewed: active problem list, medication list, lab results, imaging * Christiano Gonzalez MD - 12/29/2021 7:14 AM EDT Images from the original note were not included. Department of Surgery Surgical Service - Cardiothoracic surgery Daily Progress Note PATIENT NAME: Jaimie Mcgovern : 1945 ATTENDING PHYSICIAN: Johnny Berrios MD ADMIT DATE: 12/27/2021 TODAY'S DATE: 12/29/2021 SUBJECTIVE Patient with worsening respiratory status, now on HFNC. Afebrile, hemodynamically stable. More disoriented today. Minimally participatory. Pain well-controlled. No nausea or vomiting. NPO pending general surgical workup. Thoracentesis not completed yesterday. OBJECTIVE VITALS: BP 118/67 Pulse 81 Temp 98.7 F (37.1 C) Resp 26 Ht 5' (1.524 m) Wt 115 lb (52.2 kg) SpO2 99% BMI 22.46 kg/m PHYSICAL EXAM: CONSTITUTIONAL: NAD, Disoriented, non-participatory PULM: Resp effort labored, on High-flow nasal cannula, decreased right breath sounds; bilateral chest rise, Right chest pain with coughing CV: RRR, no lower extremity edema ABDOMEN: soft, non-distended, RUQ and RLQ mild TTP, Peritoneal signs absent NEURO: Moves all extremities spontaneously, disoriented PSYCH: unable to assess 2/2 mentation INTAKE/OUTPUT: Date 12/29/21 0000 - 12/29/21 2359 Shift 4001-0932 8863-0299 2834-4177 24 Hour Total INTAKE I.V.(mL/kg) 1500(28.8) 1500(28.8) Shift Total(mL/kg) 1500(28.8) 1500(28.8) OUTPUT Urine(mL/kg/hr) 1350 1350 Shift Total(mL/kg) 1350(25.9) 1350(25.9) Weight (kg) 52.2 52.2 52.2 52.2 I/O last 3 completed shifts: In: 2683 [I.V.:2683] Out: 2600 [Urine:2600] No intake/output data recorded. Data Recent Labs 12/27/21 1149 12/29/21 0148 WBC 8.4 10.6 HGB 13.5 12.1 HCT 41.2 35.3 PLT 219 178 Recent Labs 12/27/21 1149 12/29/21 0148 NA 140 136 K 4.4 3.4* CL 112* 107 CO2 20* 23 BUN 9 7* CREATININE 0.52 0.50* GLUCOSE 120* 104* Recent Labs 12/27/21 1149 AST 36 ALT 14 BILITOT 0.8 ALKPHOS 56 Imaging Pertinent imaging reviewed. Current Inpatient Medications Current Facility-Administered Medications: sodium chloride (Inhalant) 3 % nebulizer solution 4 mL, 4 mL, Nebulization, PRN calcium gluconate 1,000 mg in dextrose 5 % 100 mL IVPB, 1,000 mg, IntraVENous, Once potassium chloride 10 mEq/100 mL IVPB (Peripheral Line), 10 mEq, IntraVENous, Once thiamine (B-1) injection 100 mg, 100 mg, IntraVENous, Daily ipratropium-albuterol (DUONEB) nebulizer solution 1 ampule, 1 ampule, Inhalation, Q4H WA labetalol (NORMODYNE;TRANDATE) injection 10 mg, 10 mg, IntraVENous, Q6H PRN hydrALAZINE (APRESOLINE) injection 10 mg, 10 mg, IntraVENous, Q6H PRN pantoprazole (PROTONIX) 40 mg in sodium chloride (PF) 10 mL injection, 40 mg, IntraVENous, Daily piperacillin-tazobactam (ZOSYN) 4500 mg in dextrose 100 mL IVPB extended infusion (premix), 4,500 mg, IntraVENous, Q6H sodium chloride flush 0.9 % injection 5-40 mL, 5-40 mL, IntraCATHeter, Q8H sodium chloride flush 0.9 % injection 5-40 mL, 5-40 mL, IntraCATHeter, PRN PHENobarbital (LUMINAL) injection 32.5 mg, 32.5 mg, IntraVENous, 3 times per day lactated ringers infusion, , IntraVENous, Continuous sodium chloride flush 0.9 % injection 5-40 mL, 5-40 mL, IntraVENous, 2 times per day sodium chloride flush 0.9 % injection 5-40 mL, 5-40 mL, IntraVENous, PRN 0.9 % sodium chloride infusion, , IntraVENous, PRN folic acid (FOLVITE) tablet 1 mg, 1 mg, Oral, Daily acetaminophen (TYLENOL) tablet 1,000 mg, 1,000 mg, Oral, 3 times per day oxyCODONE (ROXICODONE) immediate release tablet 5 mg, 5 mg, Oral, Q4H PRN OR oxyCODONE (ROXICODONE) immediate release tablet 10 mg, 10 mg, Oral, Q4H PRN morphine sulfate (PF) injection 2 mg, 2 mg, IntraVENous, Q2H PRN OR morphine sulfate (PF) injection 4 mg, 4 mg, IntraVENous, Q2H PRN lidocaine 4 % external patch 1 patch, 1 patch, TransDERmal, Daily sennosides-docusate sodium (SENOKOT-S) 8.6-50 MG tablet 1 tablet, 1 tablet, Oral, BID bisacodyl (DULCOLAX) EC tablet 5 mg, 5 mg, Oral, Daily bisacodyl (DULCOLAX) suppository 10 mg, 10 mg, Rectal, Daily PRN ondansetron (ZOFRAN) injection 4 mg, 4 mg, IntraVENous, Q6H PRN enoxaparin (LOVENOX) injection 40 mg, 40 mg, SubCUTAneous, Daily LORazepam (ATIVAN) tablet 1 mg, 1 mg, Oral, Q1H PRN OR LORazepam (ATIVAN) injection 1 mg, 1 mg,IntraVENous, Q1H PRN OR LORazepam (ATIVAN) tablet 2 mg, 2 mg, Oral, Q1H PRN OR LORazepam (ATIVAN) injection 2 mg, 2 mg, IntraVENous, Q1H PRN OR LORazepam (ATIVAN) tablet 3 mg, 3 mg, Oral,Q1H PRN OR LORazepam (ATIVAN) injection 3 mg, 3 mg, IntraVENous, Q1H PRN OR LORazepam (ATIVAN) tablet 4 mg, 4 mg, Oral, Q1H PRN OR LORazepam (ATIVAN) injection 4 mg, 4 mg, IntraVENous, Q1H PRN ASSESSMENT AND PLAN 76 y.o. female with cecal pneumoatosis and pneumomediastinum with right pleural effusion. CT Esophagram negative for esophageal injury. Favor parapneumonic effusion with pneumomediastinum 2/2 prolonged coughing -Thoracentesis per SICU team today -Will follow-up thoracentesis studies -Management of cecum per Gen surg -Will continue to follow to assess progression of symptoms Discussed with Dr. Britta Gonzalez MD 12/29/2021 7:14 AM Associated attestation - Alessandra Callejas DO - 12/29/2021 4:54 PM EDT ATTESTATION The patient was seen and examined. I have reviewed the patients presentation, histories, imaging and serology studies. I agree with the above assessment and plan. My date of service is 12/29/2021. Respiratory status deteriorated over last 24 hours. Plan for thoracentesis per SICU. Defer diet to general surgery. No indication for acute CTS intervention. I (Alessandra Callejas) personally supervised the resident in the evaluation and development of a treatment plan for this patient including using nursing/ems notes. I personally discussed the review of systems and interviewed the patient along with performing a physical examination. In addition, I discussed the patient's condition and treatment options with them. I have also reviewed and agree with the past medical, family and social history unless otherwise noted and personally reviewed the imagingand labs. This note may be a delayed entry. All of the patient's questions were answered. Greater than 51% of the 35 minute face to face encounter was spent discussing/counseling the patient regarding the care plan for this patient. The patient was seen and examined independently and relevant data reviewed by myself. A full chart review was performed. Electronically signed by Alessandra Callejas DO * Scott Durant MD - 12/29/2021 7:13 AM EDT Images from the original note were not included. Department of General Surgery Daily Progress Note ADMIT DATE: 12/27/2021 TODAY'S DATE: 12/29/2021 SUBJECTIVE: No acute events overnight. Pain reportedly similar to admission. Denies: fevers, chills, nausea, vomiting, shortness of breath or chest pain. Denies bowel function. Confused this AM but reportedly at baseline. OBJECTIVE: VITALS: BP 118/67 Pulse 81 Temp 98.7 F (37.1 C) Resp 26 Ht 5' (1.524 m) Wt 115 lb (52.2 kg) SpO2 99% BMI 22.46 kg/m INTAKE/OUTPUT: Date 12/29/21 0000 - 12/29/21 2359 Shift 1875-2979 3850-9764 9806-8879 24 Hour Total INTAKE I.V.(mL/kg) 1500(28.8) 1500(28.8) Shift Total(mL/kg) 1500(28.8) 1500(28.8) OUTPUT Urine(mL/kg/hr) 1350 1350 Shift Total(mL/kg) 1350(25.9) 1350(25.9) Weight (kg) 52.2 52.2 52.2 52.2 I/O last 3 completed shifts: In: 2683 [I.V.:2683] Out: 2600 [Urine:2600] No intake/output data recorded. PHYSICAL EXAM: Gen: NAD, A&Ox3, pain well controlled Heart: RRR, well perfused Lungs: symmetric chest rise, normal work of breathing, breath sounds b/l Abd: soft, focally tender in the RLQ, no reobund or guarding. Non tense Ext: no c/c/e no gross deformities Skin: warm, well perfused, no obvious rashes, cellulitis or gross discoloration LABS CBC: Recent Labs 12/27/21 1149 12/29/21 0148 WBC 8.4 10.6 HGB 13.5 12.1 HCT 41.2 35.3 PLT 219 178 BMP: Recent Labs 12/27/21 1149 12/29/21 0148 NA 140 136 K 4.4 3.4* CL 112* 107 CO2 20* 23 BUN 9 7* CREATININE 0.52 0.50* GLUCOSE 120* 104* Hepatic: Recent Labs 12/27/21 1149 AST 36 ALT 14 BILITOT 0.8 ALKPHOS 56 Current Inpatient Medications Scheduled Meds: calcium gluconate 1,000 mg IntraVENous Once potassium chloride 10 mEq IntraVENous Once thiamine 100 mg IntraVENous Daily ipratropium-albuterol 1 ampule Inhalation Q4H WA pantoprazole (PROTONIX) 40 mg injection 40 mg IntraVENous Daily piperacillin-tazobactam 4,500 mg IntraVENous Q6H sodium chloride flush 5-40 mL IntraCATHeter Q8H PHENobarbital 32.5 mg IntraVENous 3 times per day sodium chloride flush 5-40 mL IntraVENous 2 times per day folic acid 1 mg Oral Daily acetaminophen 1,000 mg Oral 3 times per day lidocaine 1 patch TransDERmal Daily sennosides-docusate sodium 1 tablet Oral BID bisacodyl 5 mg Oral Daily enoxaparin 40 mg SubCUTAneous Daily Continuous Infusions: lactated ringers 100 mL/hr at 12/28/21 0934 sodium chloride PRN Meds:sodium chloride (Inhalant), labetalol, hydrALAZINE, sodium chloride flush, sodium chlorideflush, sodium chloride, oxyCODONE OR oxyCODONE, morphine OR morphine, bisacodyl, ondansetron, LORazepam OR LORazepam OR LORazepam OR LORazepam OR LORazepam OR LORazepam OR LORazepam OR LORazepam ASSESSMENT AND PLAN: 76 y.o. female with cecal pneumatosis and pneumomediastinum - serial abdominal exams, currently non acute - contiune IVF - CTS on board no intervention of pneumomediastinum - other management per SICU - ACS to follow while SICU team also following, will await floor transfer to assume primary care thereafter. Will discuss with Dr. Kyung Durant MD General Surgery PGY-5 12/29/21 7:14 AM Pager # [phone] This note may have been dictated using [employer] Edition 2.6 and/or [employer] Voice Recognition Feature. The document was proofread; however, unrecognized voice recognition flight dispatcher errors may be present. * Isabel Nj, TRANSPORT COMPANY 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 FINISHER - 12/29/2021 7:04 AM EDT Department of General Surgery Daily Progress Note SUBJECTIVE: Unable to provide subjective findings, overnight patient become increasingly confused and agitated. Required Ativan X 3 doses for a total of 7mg. No nausea or emesis. No bowel movement since admit. OBJECTIVE: Agitated this am, in soft wrist restraints bilaterally and high flow oxygen. Opens eyes at times but is not following any other commands. Labored respirations, will monitor closely. VITALS: BP 110/64 Pulse 85 Temp 98.7 F (37.1 C) Resp 26 Ht 5' (1.524 m) Wt 115 lb (52.2 kg) SpO2 99% BMI 22.46 kg/m INTAKE/OUTPUT: Date 12/29/21 0000 - 12/29/21 2359 Shift 2237-1029 6339-1039 1260-8009 24 Hour Total INTAKE I.V.(mL/kg/hr) 1500 1500 Shift Total(mL/kg) 1500(28.8) 1500(28.8) OUTPUT Urine(mL/kg/hr) 1350 1350 Shift Total(mL/kg) 1350(25.9) 1350(25.9) Weight (kg) 52.2 52.2 52.2 52.2 I/O last 3 completed shifts: In: 2683 [I.V.:2683] Out: 2600 [Urine:2600] No intake/output data recorded. PHYSICAL EXAM: Gen: Opens eyes with sternal rub, agitated at times. Unable to follow simple commands or participate in her exam. Heart: RRR, well perfused Lungs: symmetric chest rise, increased work of breathing, coarse breath sounds, persisting cough near baseline per patient Abd: soft, nondistended, no rebound tenderness or guarding apparent on exam. Difficult to assess due to change in mental status overnight. Ext: no c/c/e no gross deformities Skin: warm, well perfused, <2 cm cap refill, no obvious rashes, cellulitis or gross discoloration LABS CBC: Recent Labs 12/27/21 1149 12/29/21 0148 WBC 8.4 10.6 HGB 13.5 12.1 HCT 41.2 35.3 PLT 219 178 BMP: Recent Labs 12/27/21 1149 12/29/21 0148 NA 140 136 K 4.4 3.4* CL 112* 107 CO2 20* 23 BUN 9 7* CREATININE 0.52 0.50* GLUCOSE 120* 104* Hepatic: Recent Labs 12/27/21 1149 AST 36 ALT 14 BILITOT 0.8 ALKPHOS 56 Current Inpatient Medications Scheduled Meds: calcium gluconate 1,000 mg IntraVENous Once potassium chloride 10 mEq IntraVENous Once thiamine 100 mg IntraVENous Daily ipratropium-albuterol 1 ampule Inhalation Q4H WA pantoprazole (PROTONIX) 40 mg injection 40 mg IntraVENous Daily piperacillin-tazobactam 4,500 mg IntraVENous Q6H sodium chloride flush 5-40 mL IntraCATHeter Q8H PHENobarbital 32.5 mg IntraVENous 3 times per day sodium chloride flush 5-40 mL IntraVENous 2 times per day folic acid 1 mg Oral Daily acetaminophen 1,000 mg Oral 3 times per day lidocaine 1 patch TransDERmal Daily sennosides-docusate sodium 1 tablet Oral BID bisacodyl 5 mg Oral Daily enoxaparin 40 mg SubCUTAneous Daily Continuous Infusions: lactated ringers 100 mL/hr at 12/28/21 0934 sodium chloride PRN Meds:sodium chloride (Inhalant), labetalol, hydrALAZINE, sodium chloride flush, sodium chlorideflush, sodium chloride, oxyCODONE OR oxyCODONE, morphine OR morphine, bisacodyl, ondansetron, LORazepam OR LORazepam OR LORazepam OR LORazepam OR LORazepam OR LORazepam OR LORazepam OR LORazepam ASSESSMENT: 76 yo F who presents with cecal pneumatosis and pneumomediastinum with low concern for esophageal source. Patient Active Problem List Diagnosis Pneumatosis of intestines PLAN: Neuro/Spine: - alcohol withdraw symptoms - scheduled Tylenol, Morphine IV prn, Oxy prn - CIWA protocol for likely withdrawal (2-3 boxes of wine weekly) - folic acid and thiamine - 12/29 Phenobarb decreased from 32.5mg to 16.25 Q8hrs - palliative consult recs pending - geriatrics consult - Melatonin nightly HEENT: - no acute issues Cardiovascular: - MAP goal >65, no issues at this time - prn antihypertensives for SBP>160 - Hydralazine and Labetalol prn - 12/29 EKG: NSR 116, Qtc 461 - trop 0.162, continue to trend Q6 (complaint of central CP upon admission) - Consult Cardiology, recs pending Pulmonary: - R pleural effusion - [facility] thoracentesis ordered - Lights criteria ordered - Will be performed 12/29 - goal O2 92% given COPD - 12/29 High Flow oxygen this am - acapella, IS - duonebs q4h, 3% nebs TID - covid negative - Procal elevated 3.68 - 12/29 chest physiotherapy FEN/GI: - LR at 50cc/hr with PRN bolus - NPO sips w meds - lactic acid 1.0, stop trending - central line placed for labs and IVF - Bowel regimen - Zofran prn - Protonix IV daily : - Urinary retention, bladder scan for 400cc this am - Costa 12/29 - urine antigens pending - KUB 12/29 negative Heme: - Hgb: stable 12.1 from 13.5 ID: - low concern for infectious process at this time - empiric Zosyn with cecal pneumatosis - thoracentesis ordered for 12/29 given productive cough and chest pain - MRSA nasal swab pending - Blood cultures, no growth to date Endo: - hx hypothyroidism - TSH, WNL Lines/Devices: - Right IJ central line - Costa - Soft wrist restraints Prophylaxis: DVT: Lovenox Has DVT PPX been started? Yes If no, why? started GI: protonix IV Pressure Ulcer: turns per nursing, patient ambulatory Musculoskeletal: - no acute issues - PT/OT recs pending WB Status: RUE:AT LUE: AT RLE: AT LLE: AT Staff: Will discuss with Dr. Erendira Nj BISQUE FINISHER Associated attestation - Erendira Maciel MD - 12/30/2021 8:41 AM EDT ATTENDING ADDENDUM Active Diagnoses/Problems this Admission: Hospital Problems Last Modified POA * (Principal) Pneumomediastinum (HCC) 12/29/2021 Yes Demand ischemia of myocardium (HCC) 12/29/2021 Yes Pneumatosis of intestines 12/27/2021 Yes Debility 12/28/2021 Yes At risk for delirium 12/28/2021 Yes Alcohol abuse 12/28/2021 Yes Acute respiratory insufficiency 12/29/2021 Yes Shortness of breath 12/29/2021 Yes Pleural effusion on right 12/29/2021 Yes Palliative care encounter 12/29/2021 Yes Elevated troponin 12/30/2021 Yes I independently saw the above patient and reviewed the recent events, imaging, labs, vital signs; Iperformed a physical exam and ROS. My findings agree with the above note except for any details corrected below. A complete review of systems was obtained and is negative except as stated in HPI. 76 yo F who presents with cecal pneumatosis and pneumomediastinum ETOH withdrawal Acute respiratory insuffiencey High flow Phenobarb decrease to 16.[address] costa KUB Cards consult thoracentesis Neurological system - Acute encephalopathy likely metabolic --> ETOH withdrawal --> phenobarb --> DC ativan --> CIWA - appreciate pall recs - Multimodal pain control - Delirium precautions, melatonin nightly Circulatory system - Vtach - elevated trop - appreciate cards consult --> monitor - SBP < 180 Respiratory system - 525ml from thoracentesis --> bloody - follow up cultures - acute respiratory insufficiency - weaning hi flow - 92% - Aggressive pulmonary hygiene Gastrointestinal system - 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 - LFTs wnl - history of etoh - Pneumatosis --> serial KUB and abd exams - Bowel regimen - CTS --> no injury to esophagus --> pneumomediastinum likely COPD Renal function - urinary retention - Costa placed - lactic acidosis - resolved Immunologic system - Monitor for fevers - zosyn x 7 days - trend procalc Hematologic system - Monitor hemoglobin Endocrine system - Monitor glucose - hypoglycemic protocol - history of hypothyroid - no meds --> TSH wnl Integumentary system (GI and cutaneous) - Skin checks Musculoskeletal system - PTOT Ppx - Lovenox - protonix Critical Care time spent 45 min. The time involved in the performance of this care was exclusive ofseparately billable procedures, teaching time and treating other patients. The time was spent personally by the attending physician for the following activities: examination of the patient, ordering and/or performing treatment, reviewing the laboratory and radiographic studies, and if applicable, ventilator management and blood gas interpretation. Critical Care was necessary because of an illness or injury that actively impaired one or more vital organ systems such that there was a high probability of imminent life treatening deterioration in the patient's condition. The following organ systems are involved: Neurologic, Respiratory, LD Erendira Maciel MD Division of Trauma Department of Surgery [facility] ~~~~~~~~~~~~~~~~~~~~~~~~~~~~~~~~~~~~~~~~~~~~~~~~~~~~~~~~~~~~~~~~~~~~~~~ This note may have been dictated using [employer] Edition 2.6 and/or [employer] Voice Recognition Feature. The document was proofread; however, unrecognized voice recognition flight dispatcher errors may be present. * Blayne Zelaya MD - 12/28/2021 11:09 AM EDT Family Communication Number Called: N/A Name of Designated Family Seam Taper Machine: Patient's son Family Seam Taper Machine Updated on the Following: Patient and family at the bedside were updated on work-up and plan of care. Questions answered. Informed consent obtained for central line placement. Risk benefits and alternatives to the procedure were explained at length. Questions were answered. Patient is agreeable to proceeding with central line placement. Blayne Zelaya MD PGY3, General Surgery Pager #[phone] * Christiano Gonzalez MD - 12/28/2021 8:11 AM EDT Department of Surgery Surgical Service - Cardiothoracic surgery Daily Progress Note PATIENT NAME: Jaimie Mcgovern : 1945 ATTENDING PHYSICIAN: Johnny Berrios MD ADMIT DATE: 12/27/2021 TODAY'S DATE: 12/28/2021 SUBJECTIVE No acute events overnight. Afebrile, hemodynamically stable. Endorses Right chest wall pain and right abdominal pain. Pain well-controlled. No nausea or vomiting. NPO pending general surgical workup.Passing flatus. CT Esophagram negative for esophageal leak. Patient endorses persistent cough x 2-3weeks. OBJECTIVE VITALS: BP (!) 157/75 Pulse 91 Temp 98.3 F (36.8 C) (Oral) Resp 26 Ht 5' (1.524 m) Wt 115lb (52.2 kg) SpO2 100% BMI 22.46 kg/m PHYSICAL EXAM: CONSTITUTIONAL: NAD, A&O X3. PULM: Resp effort easy and unlabored, bilateral chest rise, Right chest pain with coughing CV: RRR, no lower extremity edema ABDOMEN: soft, non-distended, RUQ and RLQ mild TTP, Peritoneal signs absent NEURO: Moves all extremities spontaneously, A&O x3 PSYCH: Appropriate mood and affect INTAKE/OUTPUT: No intake/output data recorded. No intake/output data recorded. Data Recent Labs 12/27/21 1149 WBC 8.4 HGB 13.5 HCT 41.2 PLT 219 Recent Labs 12/27/21 1149 NA 140 K 4.4 CL 112* CO2 20* BUN 9 CREATININE 0.52 GLUCOSE 120* Recent Labs 12/27/21 1149 AST 36 ALT 14 BILITOT 0.8 ALKPHOS 56 Imaging Pertinent imaging reviewed. Current Inpatient Medications Current Facility-Administered Medications: thiamine (B-1) injection 100 mg, 100 mg, IntraVENous, Daily ipratropium-albuterol (DUONEB) nebulizer solution 1 ampule, 1 ampule, Inhalation, Q4H WA labetalol (NORMODYNE;TRANDATE) injection 10 mg, 10 mg, IntraVENous, Q6H PRN hydrALAZINE (APRESOLINE) injection 10 mg, 10 mg, IntraVENous, Q6H PRN pantoprazole (PROTONIX) 40 mg in sodium chloride (PF) 10 mL injection, 40 mg, IntraVENous, Daily lactated ringers infusion, , IntraVENous, Continuous sodium chloride flush 0.9 % injection 5-40 mL, 5-40 mL, IntraVENous, 2 times per day sodium chloride flush 0.9 % injection 5-40 mL, 5-40 mL, IntraVENous, PRN 0.9 % sodium chloride infusion, , IntraVENous, PRN folic acid (FOLVITE) tablet 1 mg, 1 mg, Oral, Daily acetaminophen (TYLENOL) tablet 1,000 mg, 1,000 mg, Oral, 3 times per day oxyCODONE (ROXICODONE) immediate release tablet 5 mg, 5 mg, Oral, Q4H PRN OR oxyCODONE (ROXICODONE) immediate release tablet 10 mg, 10 mg, Oral, Q4H PRN morphine sulfate (PF) injection 2 mg, 2 mg, IntraVENous, Q2H PRN OR morphine sulfate (PF) injection 4 mg, 4 mg, IntraVENous, Q2H PRN lidocaine 4 % external patch 1 patch, 1 patch, TransDERmal, Daily sennosides-docusate sodium (SENOKOT-S) 8.6-50 MG tablet 1 tablet, 1 tablet, Oral, BID bisacodyl (DULCOLAX) EC tablet 5 mg, 5 mg, Oral, Daily bisacodyl (DULCOLAX) suppository 10 mg, 10 mg, Rectal, Daily PRN ondansetron (ZOFRAN) injection 4 mg, 4 mg, IntraVENous, Q6H PRN enoxaparin (LOVENOX) injection 40 mg, 40 mg, SubCUTAneous, Daily LORazepam (ATIVAN) tablet 1 mg, 1 mg, Oral, Q1H PRN OR LORazepam (ATIVAN) injection 1 mg, 1 mg,IntraVENous, Q1H PRN OR LORazepam (ATIVAN) tablet 2 mg, 2 mg, Oral, Q1H PRN OR LORazepam (ATIVAN) injection 2 mg, 2 mg, IntraVENous, Q1H PRN OR LORazepam (ATIVAN) tablet 3 mg, 3 mg, Oral,Q1H PRN OR LORazepam (ATIVAN) injection 3 mg, 3 mg, IntraVENous, Q1H PRN OR LORazepam (ATIVAN) tablet 4 mg, 4 mg, Oral, Q1H PRN OR LORazepam (ATIVAN) injection 4 mg, 4 mg, IntraVENous, Q1H PRN ASSESSMENT AND PLAN 76 y.o. female with cecal pneumoatosis and pneumomediastinum with right pleural effusion. CT Esophagram negative for esophageal injury. Favor parapneumonic effusion with pneumomediastinum 2/2 prolonged coughing -Thoracentesis per SICU team today -Will follow-up thoracentesis studies -Management of cecum per Gen surg -Will continue to follow to assess progression of symptoms Discussed with Dr. Britta Gonzalez MD 12/28/2021 8:12 AM Associated attestation - Alessandra Callejas DO - 12/28/2021 9:40 AM EDT ATTESTATION The patient was seen and examined. I have reviewed the patients presentation, histories, imaging and serology studies. I agree with the above assessment and plan. My date of service is 12/28/2021. Please refer to consult note for additional details. Patient seen and examined. No crepitus, no acute events. Ok for diet from CTS standpoint. SICU planning thoracentesis will follow results, anticipate parapneumonic/reactive. Does have bibasilar effusions present R>L. No acute CTS interventions. I (Alessandra Callejas) personally supervised the resident in the evaluation and development of a treatment plan for this patient including using nursing/ems notes. I personally discussed the review of systems and interviewed the patient along with performing a physical examination. In addition, I discussed the patient's condition and treatment options with them. I have also reviewed and agree with the past medical, family and social history unless otherwise noted and personally reviewed the imagingand labs. This note may be a delayed entry. All of the patient's questions were answered. Greater than 51% of the 35 minute face to face encounter was spent discussing/counseling the patient regarding the care plan for this patient. The patient was seen and examined independently and relevant data reviewed by myself. A full chart review was performed. Electronically signed by Alessandra Callejas DO * Jesika Stallings RN - 12/28/2021 3:55 AM EDT This RN, other Rns on the unit and rpaid response all attempted to obtain IV access and bloodwork from patient but were unsuccessful. Dr Maciel made aware * Jesika Stallings RN - 12/27/2021 8:28 PM EDT Repeat lactic sent to lab. Patient is very difficult to obtain blood work from * Monika Araujo MD - 12/27/2021 8:06 PM EDT Multiple attempts to receive repeat lactic acid level have failed. Continuing to work with criticalcare lab and nursing to obtain. Monika Araujo MD General Surgery, PGY-3 12/27/21 8:08 PM Pager # [phone] documented in this encounterSUMMA Work Phone: [phone] Hospital Discharge instructions* Discharge Instr - OLIVERIO* Leonarda Casillas RN - 01/07/2022 11:13 AM EDT Continuity of Care Form Patient Name: Jaimie Mcgovern : 1945 Admit date: 12/27/2021 Discharge date: 01/07/22 Code Status Order: Full Code Advance Directives: Admitting Physician: Johnny Berrios MD PCP: Michael Cox MD Discharging Nurse: Leonarda Casillas Discharging Hospital Unit/Room#: 6104/659114 Discharging Unit Emergency Contact: Extended Emergency Contact Information Primary Emergency Contact: Geneva Zaidi Relation: Child Secondary Emergency Contact: Declan Avendano Mobile Relation: Child Past Surgical History: Past Surgical History: Procedure Laterality Date APPENDECTOMY CHOLECYSTECTOMY CT INSERT CATH PLEURA W IMAGE 01/01/2022 CT INSERT CATH PLEURA W IMAGE HYSTERECTOMY (CERVIX STATUS UNKNOWN) Immunization History: There is no immunization history on file for this patient. Active Problems: Patient Active Problem List Diagnosis Code Declining functional status R53.81 At risk for delirium Z91.89 Alcohol abuse F10.10 Acute respiratory insufficiency R06.89 Pleural effusion on right J90 Severe malnutrition (HCC) E43 Alcoholic cirrhosis (HCC) K70.30 Cognitive deficits R41.89 Debility R53.81 Isolation/Infection: Isolation No Isolation Patient Infection Status Infection Onset Added Last Indicated Last Indicated By Review Planned Expiration Resolved Resolved By None active Resolved COVID-19 (Rule Out) 12/27/21 12/27/21 12/27/21 Respiratory Panel, Molecular, with COVID-19 (Restricted: peds pts or suitable admitted adults) (Ordered) 12/27/21 Rule-Out Test Resulted COVID-19 (Rule Out) 12/27/21 12/27/21 12/27/21 POCT COVID-19, Antigen (Ordered) 12/27/21 Rule-Out Test Resulted Nurse Assessment: Last Vital Signs: BP (!) 142/70 Pulse 69 Temp 97 F (36.1 C) (Temporal) Resp 17 Ht 5' (1.524m) Wt 111 lb 5.3 oz (50.5 kg) SpO2 92% BMI 21.74 kg/m Last documented pain score (0-10 scale): Pain Level: 9 Last Weight: Wt Readings from Last 1 Encounters: 01/02/22 111 lb 5.3 oz (50.5 kg) Mental Status: oriented, alert, coherent, logical, thought processes intact, and able to concentrate and follow conversation IV Access: - None Nursing Mobility/ADLs: Walking Assisted Transfer Assisted Bathing Assisted Dressing Assisted Toileting Assisted Feeding Independent Safety Trainer Independent Med Delivery whole Wound Care Documentation and Therapy: Wound 01/02/22 Thigh Distal;Right (Active) Wound Etiology Skin Tear 01/07/2247 Dressing Status Clean;Dry;Intact 01/06/221999 Wound Cleansed Soap and water 01/03/22 07 Dressing/Treatment Foam 01/07/22 0847 Wound Assessment Dry 01/07/22 08 Drainage Amount None 01/06/221999 Odor None 01/06/221999 Lelia-wound Assessment Other (Comment) 01/07/22 0847 Number of days: 4 Incision 01/04/22 Chest Lower;Right (Active) Dressing Status Clean;Dry;Intact 01/07/22 0847 Dressing/Treatment Dry dressing 01/07/22 0847 Closure Other (Comment) 01/06/221999 Incision Assessment Other (Comment) 01/06/221999 Drainage Amount None 01/06/221999 Odor None 01/06/221999 Lelia-incision Assessment Other (Comment) 01/07/22 0847 Number of days: 3 Elimination: Continence: Bowel: Yes Bladder: Yes Urinary Catheter: None Colostomy/Ileostomy/Ileal Conduit: No Date of Last BM: 01/06/2022 No intake or output data in the 24 hours ending 01/07/22 1110 No intake/output data recorded. Safety Concerns: At Risk for Falls Impairments/Disabilities: None Nutrition Therapy: Current Nutrition Therapy: - Oral Diet: General Routes of Feeding: Oral Liquids: Thin Liquids Daily Fluid Restriction: no Last Modified Barium Swallow with Video (Video Swallowing Test): not done Treatments at the Time of Hospital Discharge: Respiratory Treatments: Oxygen Therapy: is not on home oxygen therapy. Ventilator: - No ventilator support Rehab Therapies: Physical Therapy and Occupational Therapy Weight Bearing Status/Restrictions: No weight bearing restrictions Other Medical Equipment (for information only, NOT a DME order): walker Other Treatments: Patient's personal belongings (please select all that are sent with patient): None RN SIGNATURE: CASE MANAGEMENT/SOCIAL WORK SECTION Inpatient Status Date: Readmission Risk Assessment Score: Readmission Risk Risk of Unplanned Readmission: 17 Discharging to Facility/ Agency Name: [facility] Address: [facility] [phone] Fax: Dialysis Facility (if applicable) Name: Address: Dialysis Schedule: Phone: Fax: [employer] It/Spanish Tutor signature: PHYSICIAN SECTION Prognosis: Fair Condition at Discharge: Stable Rehab Potential (if transferring to Rehab): Fair Recommended Labs or Other Treatments After Discharge: Patient started on lasix 20 mg daily and aldactone 25 mg on admission. She is discharged on lasix 20 mg and aldactone 50 mg once daily. Given this increase in aldactone, recheck BMP in 3 days. Patient may need K replacement depending on BMP results. Physician Certification: I certify the above information and transfer of [facility] for the continuing treatment of the diagnosis listed and that she requires Jail Facility for greater 30 days. Update Admission H&P: No change in H&P PHYSICIAN SIGNATURE: documented in this encounterSUMMA Work Phone: [phone] 361-130507-29-2022 Miscellaneous Notes* Telephone Encounter - Elizabeth Guido Ma - 11/20/2021 9:05 AM EDT Call to daughter, [place]. She feels the main issue is her feet, having vascular issues and losing toes. Worried about getting around. Daughter, states yes she thinks she's deteriorated not getting around well with using walker. Calling her daily for the past couple weeks crying. Daughter agreeable to ER eval to see if placement could be done at [place]. Elizabeth Guido Ma * Telephone Encounter - Michael Cox MD - 11/20/2021 8:37 AM EDT Is there something acute going on? ie-has she suddenly deteriorated, best place to evaluate why would be ER * Telephone Encounter - Cailin Castañeda RN - 11/20/2021 8:33 AM EDT Pts daughter called in and reports her mother has been upset all last week. She reports mother is saying, "I can't take care of myself and I want to go to a Senior Living.". Daughter said she is not sure what she needs to do and would like some help. Let her know I would send message through to provider and SW. documented in this encounterUniversity [facility]06-29-2022 NotePatient Outreach (INTMMN) JAIMIE AVENDANO ([id number]) 1945 F Date Time Provider Department 10/21/21 MICHAEL COX INTANGELA During your visit today, we recorded the following information about you: Allergies As of Date: 10/21/2021 Noted Allergy Reaction LATEX 11/19/2008 Z LADAN (AZITHROMYCIN) 01/11/2008 Comments: did not work ZIAC (BISOPROLOL-HYDROCHLOROTHIAZ*01/11/2008 Comments: did not work Date Reviewed: 07/11/2021 Reviewed by: Graciela Chamorro LPN - Fully Assessed Visit Diagnosis:Encounter for screening mammogram for breast cancer [Z12.31] Order(s):[facility] SCREENING [[id number]] Order #: [id number] FUTURE Prescriptions as of 10/26/2021 - levothyroxine (SYNTHROID) 50 mcg tablet Take 1 tablet by mouth once daily. Take on empty stomach. For thyroid. - ARIPiprazole (ABILIFY) 2 mg tablet Take 1 tablet by mouth once daily. - mirtazapine (REMERON) 15 mg tablet Take 1 tablet by mouth daily at bedtime. - albuterol HFA (VENTOLIN HFA) 90 mcg/actuation inhaler Inhale 2 Puffs as instructed every 4 hours as needed for wheezing/shortness of breath. - tiotropium bromide (SPIRIVA RESPIMAT) 2.5 mcg/actuation inhaler Inhale 2 Puffs as instructed once daily. Inhale two puffs once daily. Problem List As Of Date 10/21/2021 Noted Resolved Essential hypertension [I10] DIABETES MELLITUS TYPE II-UNCOMPL [E11.9] 01/30/2014 REGIONAL ENTERITIS NOS [K50.90] HYPOPOTASSEMIA [E87.6] SKIN SENSATION DISTURB [R20.9] HYPERLIPIDEMIA NEC/NOS [E78.5] MALAISE AND FATIGUE NEC [R53.81, R53.83] ANEMIA NOS [D64.9] 02/06/2008 Hepatic cirrhosis (HCC) [K74.60] 12/03/2008 Other Ascites [R18.8] 12/09/2008 Tobacco abuse [Z72.0] 01/17/2014 Hypothyroidism [E03.9] 05/29/2014 Difficult airway [T88.4XXA] 07/02/2014 Neuropathy (HCC) [G62.9] 11/17/2017 Encounter Status:Closed by Minuum, rocket staffUSER on 10/26/21[facility] 07-11-2021 NoteHNO ID: [id number] Author: Michael Cox MD Service: ? Author Type: Physician Type: Progress Notes Filed: 07/11/2021 11:14 AM Note Text: No charge for visit today. Family brought her in because in the last two weeks, her toes on both feet have turned blue cold and are extremely painful. /10. Even with elevation, has several toes on both feet that are very dusky, blue, cold to touch and painful. Has palpable dorsalis pedis pulses. No redness or warmth. I worry about acute ischemia given her hx and I have absolutely no way of evaluating that over the weekend. To [facility] ER. ER passport completed for transfer of care.[facility] 01-30-2014 History of Past illness Narrative* Problem Noted Date Resolved Date DIABETES MELLITUS TYPE II-UNCOMPL 01/30/2014 documented as of this encounter (statuses as of 10/26/2021) [facility]10[facility] History of Past illness Narrative* Problem Noted Date Resolved Date DIABETES MELLITUS TYPE II-UNCOMPL 01/30/2014 documented as of this encounter (statuses as of 04/18/2022) [facility] History of Past illness Narrative* Problem Noted Date Resolved Date DIABETES MELLITUS TYPE II-UNCOMPL 01/30/2014 documented as of this encounter (statuses as of 08/20/2022) [facility]* Diagnosis Onset Date Resolution Status PVD (peripheral vascular disease) acute Tobacco user [facility] Work Phone: Evaluation note* Diagnosis Encounter for screening mammogram for breast cancer documented in this encounter [facility] noteNo assessment information availableWChillicothe Hospital Work Phone: Evaluation note* Diagnosis Pneumomediastinum (HCC)- Primary Interstitial emphysema Pneumatosis of intestines Other specified disorder of intestines Pleural effusion Unspecified pleural effusion Declining functional status Debility, unspecified At risk for delirium Alcohol abuse Alcohol abuse, unspecified Acute respiratory insufficiency Other pulmonary insufficiency, not elsewhere classified Shortness of breath Pleural effusion on right Unspecified pleural effusion Palliative care encounter Encounter for palliative care Demand ischemia of myocardium (HCC) Other acute and subacute form of ischemic heart disease Elevated troponin Other abnormal blood chemistry Severe malnutrition (HCC) Nutritional marasmus Alcoholic cirrhosis (HCC) Alcoholic cirrhosis of liver Hypoxia Hypoxemia Acute encephalopathy Encephalopathy, unspecified Cognitive deficits Unspecified persistent mental disorders due to conditions classified elsewhere Constipation, slow transit Slow transit constipation Debility Debility, unspecified Need for management of chest tube documented in this encounter [facility] Work Phone: Evaluation note* Diagnosis Onset Date Resolution Status Claudication of right lower extremity chronic [facility] Work Phone: Evaluation note* Diagnosis Onset Date Resolution Status Claudication of right lower extremity chronic PVD (peripheral vascular disease) [facility] Work Phone: Evaluation note* Diagnosis Onset Date Resolution Status PVD (peripheral vascular disease) [facility] Work Phone: Hospital Discharge instructionsAmbulatory Orders* Vascular Location: None Selected [facility] Work Phone: Reason for referral (narrative)* Diagnostic Procedure Only (Routine) - Pending Review Specialty Diagnoses / Procedures Referred By Alessandro t Referred To Contact [facility] Diagnoses Encounter for screening mammogram for breast cancer Procedures JACQUI SCREENING SCREENING MAMMOGRAPHY BI 2-VIEW BREAST INC CAD Michael Cox MD [address] [place] [address] [facility] [address] [place] [address] Referral ID Status Reason Start Date Expiration Date Visits Requested Visits Authorized [id number] Pending Review Auto-Generat ed Referral 10/21/2021 11/20/2022 [facility]No reason for referral information availableWChillicothe Hospital Work Phone: Chief Complaint and Reason for Visit Chief Complaint b/l toes blue and pa inful PAIN LT LEG PVD TEST 08/05 Reason for Visit PVD (peripheral vasc ular disease) Tobacco user Chief Complaint flank pain Chief Complaint flank pain LABWORK LABWORK NEW SYMPTOMS/CONCERNS Chief Complaint LABWORK LABWORK ALF LAB WORK MONTHLY EXAM NEW SYMPTOMS/CONCERNS ALF LAB WORK Chief Complaint LABWORK LABWORK ALF LAB WORK MONTHLY EXAM NEW SYMPTOMS/CONCERNS ALF LABWORK ALF LAB WORK Chief Complaint LABWORK ALF LAB WORK MONTHLY EXAM NEW SYMPTOMS/CONCERNS ALF LABWORK ALF LAB WORK ALF LABWORK NEW SYMPTOMS/CONCERNS Chief Complaint ALF LAB WOR K MONTHLY EXAM NEW SYMPTOMS/CONCERNS ALF LABWORK ALF LAB WORK ALF LABWORK NEW SYMPTOMS/CONCERNS MONTHLY EXAM LABWORK MONTHLY EXAM Chief Complaint ALF LABWORK ALF LAB WORK ALF LABWORK NEW SYMPTOMS/CONCERNS MONTHLY EXAM LABWORK MONTHLY EXAM ALF LABWORK Chief Complaint ALF LABWORK MONTHLY EXAM ALF LABWORK NEW CONCERN ALF LAB WORK MONTHLY EXAM NEW CONCERN ALF LABWORK Chief Complaint ALF LABWORK MONTHLY EXAM ALF LABWORK NEW CONCERN ALF LAB WORK MONTHLY EXAM NEW CONCERN ALF LABWORK ALF LABWORK Chief Complaint ALF LABWORK NEW CONCERN ALF LAB WORK MONTHLY EXAM NEW CONCERN ALF LABWORK ALF LABWORK MONTHLY EXAM ALF LABWORK Peripheral vascular disease, unspecified Chief Complaint NEW CONCERN ALF LAB WORK MONTHLY EXAM NEW CONCERN ALF LABWORK ALF LABWORK MONTHLY EXAM NEW CONCERN ALF LABWORK Peripheral vascular disease, unspecified MONTHLY EXAM CONSULT-PVD LABWORK right hip pain Reason for Visit Claudication of righ t lower extremity Chief Complaint ALF LABWORK MONTHLY EXAM NEW CONCERN ALF LABWORK Peripheral vascular disease, unspecified MONTHLY EXAM CONSULT-PVD LABWORK right hip pain NEW CONCERN NEW CONCERN ALF LABWORK Reason for Visit Claudication of righ t lower extremity Chief Complaint NEW CONCERN ALF LABWORK Peripheral vascular disease, unspecified MONTHLY EXAM CONSULT-PVD LABWORK right hip pain NEW CONCERN NEW CONCERN ALF LABWORK MONTHLY EXAM Peripheral vascular disease, unspecified Reason for Visit Claudication of righ t lower extremity Chief Complaint CONSULT-PVD LABWORK right hip pain NEW CONCERN NEW CONCERN ALF LABWORK MONTHLY EXAM ALF LABWORK Peripheral vascular disease, unspecified NEW CONCERN DISCUSS RESULTS ALF LABWORK Reason for Visit Claudication of righ t lower extremity PVD (peripheral vascular disease) Chief Complaint ALF LABWORK MONTHLY EXAM ALF LABWORK Peripheral vascular disease, unspecified NEW CONCERN DISCUSS RESULTS ALF LABWORK LABWORK Reason for Visit PVD (peripheral vasc ular disease) Chief Complaint ALF LABWORK Peripheral vascular disease, unspecified NEW CONCERN DISCUSS RESULTS ALF LABWORK MONTHLY EXAM - MD NEW CONCERN LABWORK LABWORK Reason for Visit PVD (peripheral vasc ular disease) Chief Complaint ALF LABWORK MONTHLY EXAM - MD NEW CONCERN LABWORK MONTHLY EXAM 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 MONTHLY EXAM NEW CONCERN NEW CONCERN LABWORK MONTHLY EXAM ALF LAB WORK Chief Complaint NEW CONCERN ALF LABWORK Peripheral vascular disease, unspecified MONTHLY EXAM CONSULT-PVD LABWORK right hip pain NEW CONCERN NEW CONCERN ALF LABWORK MONTHLY EXAM ALF LABWORK Peripheral vascular disease, unspecified Reason for Visit Claudication of righ t lower extremity Chief Complaint Admit Date LABWORK March 30, 2024 5 :00am MONTHLY NOTE April 03, 2024 2:26pm ALF LAB WORK April 27, 2024 5:00am MONTHLY EXAM May 08, 2024 3 :45pm NEW CONCERN May 16, 2024 9 :24am ALF LAB WORK June 01, 2024 4:00am ALF LAB WORK June 07 5:00am MONTHLY EXAM June 21, 2024 11:47am Peripheral vascular disease June 27 8:21am ALF LAB WORK June 29, 2024 5: 00am MONTHLY EXAM July 03, 2024 3:0 4pm Reason for Visit Admit Date PVD (peripheral vascular disease) June 27, 2024 8:21am Chief Complaint Admit Date ALF LAB WORK April 27, 2024 5:00am MONTHLY EXAM May 08, 2024 3 :45pm NEW CONCERN May 16, 2024 9 :24am ALF LAB WORK June 01, 2024 4:00am ALF LAB WORK June 07 5:00am MONTHLY EXAM June 21, 2024 11:47am Peripheral vascular disease June 27, 2 025 8:21am ALF LAB WORK June 29, 2024 5: 00am MONTHLY EXAM July 03, 2024 3:0 4pm PVD July 31, 2024 10:5 9am Chief Complaint Admit Date MONTHLY EXAM May 08, 2024 3 :45pm NEW CONCERN May 16, 2024 9 :24am ALF LAB WORK June 01, 2024 4:00am ALF LAB WORK June 07 5:00am MONTHLY EXAM June 21, 2024 11:47am Peripheral vascular disease June 27, 2 025 8:21am ALF LAB WORK June 29, 2024 5: 00am MONTHLY EXAM July 03, 2024 3:0 4pm PVD July 31, 2024 10:5 9am ADMISSION EXAM July 31, 2024 5:24 pm Chief Complaint Admit Date ALF LAB WORK June 01, 2024 4:00am ALF LAB WORK June 07 5:00am MONTHLY EXAM June 21, 2024 11:47am Peripheral vascular disease June 27, 2 025 8:21am ALF LAB WORK June 29, 2024 5: 00am MONTHLY EXAM July 03, 2024 3:0 4pm PVD July 31, 2024 10:5 9am ADMISSION EXAM July 31, 2024 5:24 pm ALF LAB WORK August 24, 2024 5:00 am Chief Complaint Admit Date PVD July 31, 2024 10:5 9am ADMISSION EXAM July 31, 2024 5:24 pm ALF LAB WORK August 24, 2024 5:00 am New Concern October 02, 2024 1:57 pm Family History No Family History Records Found Relationship Condition Age at Onset Recorded Date/T nora Unknown Family History?Cance r, Diabetes, Heart Disease Unknown June 27, 2018 7:24pm Family History?Heart Disease Unknown November 26, 2016 1:59pm Family History?Heart Disease Unknown June 27, 2018 7:24pm Relationship Condition Age at Onset Recorded Date/T nora Unknown Family History?Cance r, Diabetes, Heart Disease Unknown June 27, 2018 6:24pm Family History?Heart Disease Unknown November 26, 2016 12:59pm Family History?Heart Disease Unknown June 27, 2018 6:24pm Relationship Condition Age at Onset Recorded Date/T nora Unknown Family History?Cance r, Diabetes, Heart Disease Unknown June 27, 2018 6:24pm Family History?Heart Disease Unknown June 27, 2018 6:24pm Family History?Heart Disease Unknown May 20, 2022 9:02am Relationship Condition Age at Onset Recorded Date/T nora Unknown Family History?Cance r, Diabetes, Heart Disease Unknown June 27, 2018 7:24pm Family History?Heart Disease Unknown June 27, 2018 7:24pm Family History?Heart Disease Unknown May 20, 2022 10:02am Relationship Condition Age at Onset Recorded Date/T nora Unknown Family History?Cance r, Diabetes, Heart Disease Unknown June 27, 2018 7:24pm Family History?Heart Disease Unknown June 27, 2018 7:24pm Family History?Heart Disease Unknown August 12, 2022 3:01pm Relationship Condition Age at Onset Recorded Date/T nora Unknown Family History?Cance r, Diabetes, Heart Disease Unknown June 27, 2018 6:24pm Family History?Heart Disease Unknown June 27, 2018 6:24pm Family History?Heart Disease Unknown February 24, 2023 10:52am Relationship Condition Age at Onset Recorded Date/T nora Unknown Family History?Cance r, Diabetes, Heart Disease Unknown June 27, 2018 7:24pm Family History?Heart Disease Unknown June 27, 2018 7:24pm Family History?Heart Disease Unknown February 24, 2023 11:52am Relationship Condition Age at Onset Recorded Date/T nora Not Specified Diabetes mellitus Unknown Malignant neoplasm Unknown Hypertension Unknown Cerebrovascular accident (CVA) Unknown Advance Directives No Advanced Directives Records Found Advance Directive Response Recorded Date/ Time Living Will Yes July 11, 2021 11:28am Power of Inventory Specialist Yes July 11 11:28am Documents on File Type Date Recorded Patient Seam Taper Machine Expl anation Advance Directive(s) Advance Directive(s) 04/21/2009 10:48 PM Advance Directive Response Recorded Date/ Time Living Will No December 27, 2 022 1:33am Power of Inventory Specialist No December 27, 2021 1:33am Documents on File Type Date Recorded Patient Seam Taper Machine Expl anation ACP-Advance Directive 12/27/2021 Latest Code Status on File Code Status Date Activated Date Inactivated Comments Full Code 12/27/2021 5:57 PM Advance Directive Response Recorded Date/ Time Living Will No December 27, 2 022 12:33am Power of Inventory Specialist No December 27, 2021 12:33am Documents on File Type Date Recorded Patient Seam Taper Machine Expl anation Advance Directive(s) 04/21/2009 10:48 PM Advance Directive Response Recorded Date/ Time Living Will No May 20 9:02am Power of Inventory Specialist No May 20, 2022 9:02am Advance Directive Response Recorded Date/ Time Living Will No May 20 10:02am Power of Inventory Specialist No May 20, 2022 10:02am Advance Directive Response Recorded Date/ Time Living Will No August 12, 2022 3:01pm Power of Inventory Specialist No August 12 3:01pm Advance Directive Response Recorded Date/ Time Name of Medical Power of Inventory Specialist [place] (daugh ter) January 30, 2023 4:43pm Living Will Yes January 30 4:43pm Power of Inventory Specialist Yes January 30, 023 4:43pm Advance Directive Response Recorded Date/ Time Living Will Yes February 24 10:52am Power of Inventory Specialist Yes February 24, 2023 10:52am Name of Medical Power of Inventory Specialist [place] (daugh ter) January 30, 2023 3:43pm Advance Directive Response Recorded Date/ Time Living Will Yes February 24 10:52am Power of Inventory Specialist Yes February 24, 2023 10:52am Advance Directive Response Recorded Date/ Time Living Will Yes February 24 11:52am Power of Inventory Specialist Yes February 24, 2023 11:52am Summary Purpose Additional Source Comments Goals (unrecognized section and content) Goals may be documented in a n alternate sectionGoals may be documented in an alternate sectionGoals may be documented in an alternate sectionGoals may be documented in an alternate sectionGoals may be documented in an alternate sectionGoals may be documented in an alternate sectionGoals may be documented in an alternate sectionGoals may be documented in an alternate sectionGoals may be documented in an alternate sectionGoals may be documented in an alternate sectionGoals may be documented in an alternate sectionGoals may be documented in an alternate sectionGoals may be documented in an alternate sectionGoals may be documented in an alternate sectionGoals may be documented in an alternate sectionGoals may be documented in an alternate sectionGoals may be documented in an alternate sectionGoals may be documented in an alternate sectionGoals may be documented in an alternate sectionGoals may be documented in an alternate sectionGoals may be documented in an alternate sectionGoals may be documented in an alternate sectionGoals may be documented in an alternate sectionGoals may be documented in an alternate sectionGoals may be documented in an alternate sectionGoals may be documented in an alternate sectionGoals may be documented in an alternate sectionGoals may be documented in an alternate section Source Comments (unrecognize d section and content) In the event this informatio n is protected by the Federal Confidentiality of Alcohol and Drug Abuse Patient Records regulations: The Federal rules restrict any use of the information to criminally investigate or prosecute any alcohol or drug abuse patient.[facility] CenterIn the event this information is protected by the Federal Confidentiality of Alcohol and Drug Abuse Patient Records regulations: The Federal rules restrict any use of the information to criminally investigate or prosecute any alcohol or drug abuse patient.[facility] CenterIn the event this information is protected by the Federal Confidentiality of Alcohol and Drug Abuse Patient Records regulations: The Federal rules restrict any use of the information to criminally investigate or prosecute any alcohol or drug abuse patient.[facility] Care Teams (unrecognized sec tion and content) Team Status: Active Member Role Status Dates Dr. Viviana Mcgee MD Primary Care Provider Active Team Status: Active Member Role Status Dates Dr. Viviana Mcgee MD Primary Care Provider Active Start: June 01, 2024 Viviana ABBOTT MD Attending Provider Active Start: June 01, 2024 Viviana ABBOTT MD Referring Provider Active Start: June 01, 2024 Team Status: Active Member Role Status Dates Dr. Viviana Mcgee MD Primary Care Provider Active Start: June 07, 2024 Vivinaa ABBOTT MD Attending Provider Active Start: June 07, 2024 Team Status: Inactive Member Role Status Dates Dr. Viviana Mcgee MD Primary Care Provider Active Start: June 21, 2024 End: June 21, 2024 LAURA Mendes Attending Provider Active St art: June 21, 2024 End: June 21, 2024 Team Status: Inactive Member Role Status Dates Dr. Viviana Mgcee MD Primary Care Provider Active Start: June 27, 2024 End: June 27, 2024 Dr. Viviana Mcgee MD Referring Provider Active Start: June 27, 2024 End: June 27, 2024 LAURA Irby Attending Provider Active Star t: June 27, 2024 End: June 27, 2024 Team Status: Inactive Member Role Status Dates Dr. Viviana Mcgee MD Primary Care Provider Active Start: June 29, 2024 End: June 29, 2024 RAYNE Bhatia Attending Provider Active Start: June 29, 2024 End: June 29, 2024 Team Status: Inactive Member Role Status Dates Dr. Viviana Mcgee MD Primary Care Provider Active Start: July 03, 2024 End: July 03, 2024 Dr. Viviana Mcgee MD Attending Provider Active Start: July 03, 2024 End: July 03, 2024 Team Status: Inactive Member Role Status Dates Dr. Viviana Mcgee MD Primary Care Provider Active Start: July 31, 2024 End: July 31, 2024 LAURA Irby Attending Provider Active Star t: July 31, 2024 End: July 31, 2024 LAURA Irby Referring Provider Active Star t: July 31, 2024 End: July 31, 2024 Team Status: Active Member Role Status Dates Dr. Viviana Mcgee MD Primary Care Provider Active Start: July 31, 2024 Dr. Zachary Cruz MD Attending Provider Active S tart: July 31, 2024 LAURA Irby Referring Provider Active Star t: July 31, 2024 Team Status: Inactive Member Role Status Dates Dr. Viviana Mcgee MD Primary Care Provider Active Start: July 31, 2024 End: July 31, 2024 Matilda Doherty NP MOLD MA[employer] SHEETS SUPERVISOR-C Attending Provider Active Start: July 31, 2024 End: July 31, 2024 Team Status: Inactive Member Role Status Dates Dr. Viviana Mcgee MD Primary Care Provider Active Start: August 24, 2024 End: August 24, 2024 Viviana ABBOTT MD Attending Provider Active Start: August 24, 2024 End: August 24, 2024 Team Status: Inactive Member Role Status Dates Dr. Viviana Mcgee MD Primary Care Provider Active Start: May 08, 2024 End: May 08, 2024 Dr. Viviana Mcgee MD Attending Provider Active Start: May 08, 2024 End: May 08, 2024 Team Status: Inactive Member Role Status Dates Dr. Viviana Mcgee MD Primary Care Provider Active Start: May 16, 2024 End: May 16, 2024 Matilda Doherty NP MOLD MAKING PLAST[employer] SHEETS SUPERVISOR-C Attending Provider Active Start: May 16, 2024 End: May 16, 2024 Team Status: Active Member Role Status Dates Dr. Viviana Mcgee MD Primary Care Provider Active Start: August 24, 2024 Viviana ABBOTT MD Attending Provider Active Start: August 24, 2024 Team Status: Active Member Role Status Dates Dr. Viviana Mcgee MD Primary Care Provider Active Start: April 27, 2024 Viviana ABBOTT MD Attending Provider Active Start: April 27, 2024 [employer]im [employer] Burr Operator Relationship Specialty Start Date End Date Michael Cox MD [address], [place] [address] PCP - General Family Practice 11/17/17 Tr[employer] And Bur[employer] Operator Relationship Specialty Start Date End Date Michael Cox MD [address] [place], [place] [id number] PCP - General Family Medicine 12/30/21 Tr[employer] And Bur[employer] Operator Relationship Specialty Start Date End Date Michael Cox MD [address], [place] [id number] PCP - General Family Medicine 11/17/17 Team Status: Active Member Role Status Dates No Primary Care Physician Family Provider Active Dr. Michael Cox MD Primary Care Provider Active Team Status: Inactive Member Role Status Dates Dr. Michael Cox MD Primary Care Provider Active BRENDA Crawford NPC Attending Provider Active Team Status: Inactive Member Role Status Dates Dr. Michael Cox MD Primary Care Provider Active Dr. Viviana Mcgee MD Attending Provider Active Team Status: Inactive Member Role Status Dates Dr. Michael Cox MD Primary Care Provider Active Alex Weir MD Attending Provider Active Team Status: Inactive Member Role Status Dates Dr. Michael Cox MD Primary Care Provider Active Alex Weir MD Attending Provider, Referring Provi korey Active Team Status: Inactive Member Role Status Dates Dr. Michael Cox MD Primary Care Provider Active Viviana Mcgee MD Attending Provider, Referring Pr ovider Active Team Status: Inactive Member Role Status Dates Dr. Michael Cox MD Primary Care Provider Active RAYNE Crawford Attending Provider Active Team Status: Inactive Member Role Status Dates Dr. Michael Cox MD Primary Care Provider Active Viviana Mcgee MD Attending Provider Active Team Status: Active Member Role Status Dates Dr. Michael Cox MD Primary Care Provider Active Alex Weir MD Attending Provider Active Team Status: Inactive Member Role Status Dates Dr. Michael Cox MD Primary Care Provider Active Matilda Tickton OLS, [employer]OR-C Attending Provider Active Team Status: Inactive Member Role Status Dates Dr. Michael Cox MD Primary Care Provider Active Alex ABBOTT MD Attending Provider Active Team Status: Inactive Member Role Status Dates Dr. Michael Cox MD Primary Care Provider Active Viviana ABBOTT MD Attending Provider, Referring Provider Active Team Status: Inactive Member Role Status Dates Dr. Michael Cox MD Primary Care Provider Active Viviana ABBOTT MD Attending Provider Active Team Status: Active Member Role Status Dates Dr. Michael Cox MD Primary Care Provider Active Viviana ABBOTT MD Attending Provider Active Team Status: Active Member Role Status Dates Dr. Michael Cox MD Primary Care Provider Active Alex ABBOTT MD Attending Provider, Referring Pr ovider Active Team Status: Active Member Role Status Dates Dr. Michael Cox MD Primary Care Provider Active Alex ABBOTT MD Attending Provider Active Team Status: Inactive Member Role Status Dates Dr. Michael Cox MD Primary Care Provider Active Alex ABBOTT MD Attending Provider, Referring Pr ovider Active Team Status: Active Member Role Status Dates Dr. Michael Cox MD Primary Care Provider Active Dr. Zachary Cruz MD Attending Provider Active Matilda Doherty [employer] SUPERVISOR, [employer] SUPERVISOR-C Referring Provider Active Team Status: Active Member Role Status Dates Dr. Michael Cox MD Primary Care Provider Active Matilda Doherty [employer] SUPERVISOR, [employer] SUPERVISOR-C Attending Provider Active Team Status: Inactive Member Role Status Dates Dr. Michael Cox MD Primary Care Provider Active Matilda Doherty [employer] SUPERVISOR, [employer] SUPERVISOR-C Attending Provider, Referring Provider Active Team Status: Active Member Role Status No Primary Care Physician Family Provider Active Dr. Viviana Mcgee MD Primary Care Provider Active Team Status: Inactive Member Role Status Dates Dr. Michael Cox MD Primary Care Provider, Referring Provider Active Dr. Zachary Cruz MD Attending Provider Active Team Status: Inactive Member Role Status Dates Dr. Darlene Veliz MD Attending Provider, Emergency Provider Active Dr. Viviana Mcgee MD Primary Care Provider Active Team Status: Inactive Member Role Status Dates Dr. Michael Cox MD Primary Care Provider Active Dr. Zachary Cruz MD Attending Provider, Referring Pro vider Active Team Status: Inactive Member Role Status Dates Dr. Viviana Mcgee MD Primary Care Provider Active Matilda Doherty [employer] SUPERVISOR, [employer] SUPERVISOR-C Attending Provider Active Team Status: Inactive Member Role Status Dates Dr. Viviana Mcgee MD Primary Care Provider Active [facility] Attending Provider Active Team Status: Inactive Member Role Status Dates Dr. Viviana Mcgee MD Primary Care Provider, Atten ding Provider Active Team Status: Inactive Member Role Status Dates Dr. Viviana Mcgee MD Primary Care Provider Active LAURA Irby Attending Provider, Referring Provid er Active Team Status: Active Member Role Status Dates Dr. Viviana Mcgee MD Primary Care Provider Active Viviana ABBOTT MD Attending Provider Active Team Status: Inactive Member Role Status Dates Dr. Viviana Mcgee MD Primary Care Provider, Refer ring Provider Active Dr. Zachary Cruz MD Attending Provider Active Team Status: Inactive Member Role Status Dates Dr. Viviana Mcgee MD Primary Care Provider Active Viviana ABBOTT MD Attending Provider Active Team Status: Inactive Member Role Status Dates Dr. Viviana Mcgee MD Primary Care Provider Active Matilda ABBOTT NP-C Attending Provider Active Team Status: Inactive Member Role Status Dates Dr. Viviana Mcgee MD Primary Care Provider Active Lesvia Glez NP-C Attending Provider Active Team Status: Inactive Member Role Status Dates Dr. Viviana Mcgee MD Primary Care Provider Active Cr SANCHEZ PA Attending Provider Active Team Status: Active Member Role Status Dates Dr. Viviana Mcgee MD Primary Care Provider Active Matilda ABBOTT NP-C Attending Provider Active Team Status: Inactive Member Role Status Dates Dr. Viviana Mcgee MD Primary Care Provider Active Start: March 30, 2024 End: March 30, 2024 Viviana ABBOTT MD Attending Provider Active Start: March 30, 2024 End: March 30, 2024 Team Status: Inactive Member Role Status Dates Dr. Viviana Mcgee MD Primary Care Provider Active Start: April 03, 2024 End: April 03, 2024 Matilda Doherty NP, [employer] SUPER[employer]OR-C Attending Provider Active Start: April 03, 2024 End: April 03, 2024 Team Status: Active Member Role/Relationship Status Dates Dr. Viviana Mcgee MD Primary Care Provider Active Team Status: Inactive Member Role/Relationship Status Dates Dr. Viviana Mcgee MD Primary Care Provider Active Start: July 31, 2024 End: July 31, 2024 LAURA Irby Attending Provider Active Star t: July 31, 2024 End: July 31, 2024 LAURA Irby Referring Provider Active Star t: July 31, 2024 End: July 31, 2024 Team Status: Active Member Role/Relationship Status Dates Dr. Viviana Mcgee MD Primary Care Provider Active Start: July 31, 2024 Dr. Zachary Cruz MD Attending Provider Active S tart: July 31, 2024 LAURA Irby Referring Provider Active Star t: July 31, 2024 Team Status: Inactive Member Role/Relationship Status Dates Dr. Viviana Mcgee MD Primary Care Provider Active Start: July 31, 2024 End: July 31, 2024 Matilda Doherty [employer] SUPERVISOR, [employer] SUPERVISOR-C Attending Provider Active Start: July 31, 2024 End: July 31, 2024 Team Status: Inactive Member Role/Relationship Status Dates Dr. Viviana Mcgee MD Primary Care Provider Active Start: August 24, 2024 End: August 24, 2024 Viviana ABBOTT MD Attending Provider Active Start: August 24, 2024 End: August 24, 2024 Team Status: Inactive Member Role/Relationship Status Dates Dr. Viviana Mcgee MD Primary Care Provider Active Start: October 02, 2024 End: October 02, 2024 Dr. Viviana Mcgee MD Attending Provider Active Start: October 02, 2024 End: October 02, 2024 INFORMATION SOURCE (unrecogn ized section and content) DATE CREATED AUTHOR 01/19/2022 [facility] [employer] DATE CREATED AUTHOR AUTHOR'S ORGANIZ ATION 01/28/2022 [facility] [employer] DATE CREATED AUTHOR AUTHOR'S ORGANIZ ATION 04/18/2022 [facility] DATE CREATED AUTHOR AUTHOR'S ORGANIZ ATION 11/10/2024 [facility] Reason for Visit (unrecogniz ed section and content) Reason Comments Abdominal Pain Transfer from [facility] r. Pt c/o abdominal pain. Reason Comments Patient Update Patient Question Help with Senior Living Reason Onset Date Comments Population Health Navigation Outreach 08/20/2022 [facility] NO PCP Ordered Prescriptions (unrec ognized section and content) Prescription Sig Dispensed Refills Start Date End Da te oxyCODONE (ROXICODONE) 5 MG immediate release tabletIndications:Pleur al effusion Take 1 tablet by mouth every 6 hours as needed for Pain for up to 5 days. 20 tablet 0 01/07/2022 01/12/2022 ipratropium-albuterol (DUONEB) 0.5-2.5 (3) MG/3ML SOLN nebulizer solution Inhale 3 mLs into the lungs 2 times daily as needed for Shortness of Breath 360 mL 0 01/07/2022 spironolactone (ALDACTONE) 25 MG tablet Take 1 tablet by mouth 2 times daily 30 tablet 3 01/07/2022 nicotine (NICODERM CQ) 21 MG/24HR Place 1 patch onto the skin daily 30 patch 3 01/08/2022 thiamine mononitrate (THIAMINE) 100 MG tablet Take 1 tablet by mouth daily 0 01/08/2022 folic acid (FOLVITE) 1 MG tablet Take 1 tablet by mouth daily 30 tablet 3 01/08/2022 lidocaine 4 % external patch Place 1 patch onto the skin daily 0 01/08/2022 QUEtiapine (SEROQUEL) 50 MG tablet Take 1 tablet by mouth nightly 60 tablet 3 01/07/2022 furosemide (LASIX) 20 MG tablet Take 1 tablet by mouth daily 60 tablet 3 01/08/2022 amoxicillin-clavulanate (AUGMENTIN) 875-125 MG per tablet Take 1 tablet by mouth 2 times daily for 5 days 10 tablet 0 01/08/2022 01/07/2022 oxyCODONE (ROXICODONE) 5 MG immediate release tabletIndications:Pleur al effusion Take 1 tablet by mouth every 6 hours as needed for Pain for up to 5 days. 0 01/07/2022 01/07/2022 spironolactone (ALDACTONE) 25 MG tablet Take 2 tablets by mouth daily 30 tablet 3 01/08/2022 01/07/2022 Scheduled Active and Recently Administ ered Medications (unrecognized section and content) Medication Order 01/05/2022 01/06/2022 01/07/2022 acetaminophen (TYLENOL) tablet 1,000 mg 1,000 mg, Oral, EVERY 8 HOURS SCHEDULED (3 times per day), First dose on 12/27/21 at 2200, Until Discontinued, Maximum dose of acetaminophen is 4000 mg from all sources in 24 hours. 0059 (Given - Provider: Meredith Cadet RN)0753 (Given - Provider: Chacorta Snow RN)1357 (Given - Provider: Chacorta Snow RN) 0000 (Not Given - Provider: Bekah Multani, ARYAN - Reason: Patient/family refused)0846 (Given - Provider: Sonya Goff RN)1558 (Given - Provider: Sonya Goff RN) 0130 (Not Given - Provider: Bekah Multani RN - Reason: Patient/family refused)0847 (Given - Provider: Leonarda Casillas RN)1548 (Given - Provider: Leonarda Casillas RN) bisacodyl (DULCOLAX) EC tablet 5 mg 5 mg, Oral, DAILY, First dose on 12/27/21 at 1815, Until Discontinued, Do not crush or break. 0900 (Automatically Held - Provider: Ezekiel Maciel MD) 0900 (Automatically Held) 0900 (Automatically Held) enoxaparin (LOVENOX) injection 40 mg 40 mg, SubCUTAneous, DAILY, First dose on 12/27/21 at 1900, Until Discontinued, Indication of Use: Prophylaxis-DVT/PE 1753 (Given - Provider: Chacorta Snow RN) 1600 (Given - Provider: Sonya Goff RN) 1548 (Given - Provider: Leonarda Casillas RN) folic acid (FOLVITE) tablet 1 mg 1 mg, Oral, DAILY, First dose on 01/02/22 at 0900, Until Discontinued 0753 (Given - Provider: Chacorta Snow RN) 0846 (Given - Provider: Sonya Goff, ARYAN) 0847 (Given - Provider: Leonarda Casillas RN) furosemide (LASIX) injection 40 mg (COMPLETED) 40 mg, IntraVENous, ONCE, 1 dose, On Tue01/05/22 at 1045 1356 (Given - Provider: Chacorta Snow, ARYAN) furosemide (LASIX) tablet 20 mg 20 mg, Oral, DAILY, First dose on Tue01/06/22 at 1315, Until Discontinued 1558 (Given - Provider: Sonya Goff RN) 0847 (Given - Provider: Leonarda Casillas, ARYAN) ipratropium-albuterol (DUONEB) nebulizer solution 1 ampule (CANCELED) 1 ampule, Inhalation, 2 TIMES DAILY, First dose (after last modification) on Tue01/02/22 at 1600, Until Discontinued, Initiate RT Bronchodilator Protocol: No 0920 (Given - Provider: Lou Yan RCP)1740 (Given - Provider: Lou Yan RCP) 0839 (Given - Provider: Darlene Hanson RCP) levothyroxine (SYNTHROID) tablet 50 mcg 50 mcg, Oral, DAILY, First dose on Tue12/30/21 at 1245, Until Discontinued, Tube feeding (TF) interaction, obtain physician order to manage, recommend holding TF for 30 minutes before and after dose. 0753 (Given - Provider: Chacorta Snow RN) 0846 (Given - Provider: Sonya Goff RN) 0847 (Given - Provider: Leonarda Casillas RN) lidocaine 4 % external patch 1 patch 1 patch, TransDERmal, Administer over 12 Hours, DAILY, First dose on Tue12/27/21 at 1815, Apply patch to R chest. Patch may remain in place for up to 12 hours in any 24 hour period. 0754 (Patch Applied - Provider: Chacorta Snow RN)2013 (Patch Removed - Provider: Bekah Multani RN) 0847 (Patch Applied - Provider: Sonya Goff RN)2258 (Patch Removed - Provider: Bekah Multani RN) 0847 (Patch Applied - Provider: Leonarda Casillas RN)2046 (Due: Patch Removed - Provider: Leonarda Casillas RN) nicotine (NICODERM CQ) 21 MG/24HR 1 patch 1 patch, TransDERmal, Administer over 24 Hours, DAILY, First dose on Tue01/01/22 at 1345, Apply new patch to nonhairy, clean, dry skin on the upper body or upper outer arm. Rotate patch sites. Notify pharmacy if patient or provider prefers patch to be removed at bedtime and replaced in the morning. Hazardous Medication -- Refer to facility policy for handling and disposal. 0754 (Patch Applied - Provider: Chacorta Snow RN) 0716 (Patch Removed - Provider: Sonya Goff RN)0847 (Patch Applied - Provider: Sonya Goff RN) 0846 (Patch Applied - Provider: Loenarda Casillas RN) polyethylene glycol (GLYCOLAX) packet 17 g 17 g, Oral, DAILY, First dose on Tue12/30/21 at 1245, Until Discontinued 09 (Automatically Held - Provider: Ezekiel Maciel MD) 09 (Automatically Held) 09 (Automatically Held) potassium chloride (KLOR-CON) packet 40 mEq 40 mEq, Oral, 2 TIMES DAILY, First dose on Carly 12/31/21 at 0900, Until Discontinued, Dilute with at least 4 ounces of cold water. May further dilute if GI adverse effects occur. 0756 (Given - Provider: Chacorta Snow RN)2011 (Given - Provider: Bekah Multani RN) 08 (Given - Provider: Sonya Goff RN)2147 (Given - Provider: Bekah Multani RN) 08 (Given - Provider: Leonarda Casillas RN)2099 (Due) QUEtiapine (SEROQUEL) tablet 50 mg 50 mg, Oral, NIGHTLY, First dose on Tue01/01/22 at 2145, Until Discontinued 2011 (Given - Provider: Bekah Multani RN) 2147 (Given - Provider: Bekah Multani RN) 2100 (Due) sennosides-docusate sodium (SENOKOT-S) 8.6-50 MG tablet 1 tablet 1 tablet, Oral, 2 TIMES DAILY, First dose on Tue12/27/21 at 2100, Until Discontinued 09 (Automatically Held - Provider: Ezekiel Maciel MD)2099 (Automatically Held - Provider: Ezekiel Maciel MD) 0900 (Automatically Held)2099 (Automatically Held) 09 (Automatically Held)2099 (Automatically Held) sodium chloride (Inhalant) 3 % nebulizer solution 4 mL (CANCELED) 4 mL, Nebulization, 2 TIMES DAILY, First dose (after last modification) on 01/02/22 at 1600, Until Discontinued 09 (Given - Provider: Lou Yan RCP)1747 (Given - Provider: Lou Yan RCP) 0841 (Not Given - Provider: Darlene Hanson RCP - Reason: Patient/family refused - Comment: Not needing to cough anything out this morning) sodium chloride flush 0.9 % injection 5-40 mL 5-40 mL, IntraVENous, EVERY 12 HOURS SCHEDULED (2 times per day), First dose on Tue12/27/21 at 2100, Until Discontinued, For Line Patency: Peripheral IV = 5 mL; Midline or Central Line = 10 mL/lumen. If following IV push medication, administer flush at same rate as the IV push. Flush volume is determined by type of infusion therapy being given. For non-viscous solutions use: Peripheral IV = 5 mL Midline or Central Line = 10 mL/lumen For viscous solutions (i.e. blood components, parenteral nutrition, contrast media, or after obtaining blood sample) use: Peripheral IV = 10 mL Midline or Central Line = 20 mL/lumen 0755 (Given - Provider: Chacorta Snow RN)2012 (Given - Provider: Bekah Multani RN) 0847 (Given - Provider: Sonya Goff RN)2149 (Given - Provider: Bekah Multani RN) 0847 (Given - Provider: Leonarda Casillas RN)2100 (Due) sodium chloride flush 0.9 % injection 5-40 mL 5-40 mL, IntraCATHeter, EVERY 8 HOURS, First dose on Tue12/28/21 at 1830, Until Discontinued, For Line Patency: Peripheral IV = 5 mL; Midline or Central Line = 10 mL/lumen. If following IV push medication, administer flush at same rate as the IV push. Flush volume is determined by type of infusion therapy being given. For non-viscous solutions use: Peripheral IV = 5 mL Midline or Central Line = 10 mL/lumen For viscous solutions (i.e. blood components, parenteral nutrition, contrast media, or after obtaining blood sample) use: Peripheral IV = 10 mL Midline or Central Line = 20 mL/lumen 0230 (Not Given - Provider: Meredith Cadet RN - Reason: Other)1320 (Not Given - Provider: Chacorta Snow RN - Reason: Other)1722 (Not Given - Provider: Chacorta Snow RN - Reason: Other) 0245 (Not Given - Provider: Bekah Multani RN - Reason: Other)0945 (Not Given - Provider: Sonya Goff RN - Reason: Other)1644 (Not Given - Provider: Sonya Goff RN - Reason: Other) 0151 (Not Given - Provider: Bekah Multani RN - Reason: Other)0850 (Not Given - Provider: Leonarda Casillas RN - Reason: Other)1830 (Due) spironolactone (ALDACTONE) tablet 25 mg 25 mg, Oral, DAILY, First dose on 01/02/22 at 1100, Until Discontinued 0753 (Given - Provider: Chacorta Snow RN) 0847 (Given - Provider: Sonya Goff RN) 0847 (Given - Provider: Leonarda Casillas RN) thiamine mononitrate tablet 100 mg 100 mg, Oral, DAILY, First dose on 01/02/22 at 0900, Until Discontinued 0753 (Given - Provider: Chacorta Snow RN) 0846 (Given - Provider: Sonya Goff RN) 0847 (Given - Provider: Leonarda Casillas RN) PRN Medication Order 01/05/2022 01/06/2022 01/07/2022 0.9 % sodium chloride infusion IntraVENous, at 5-250 mL/hr, PRN, if patient receiving piggyback infusions and maintenance fluids are not ordered OR KVO fluids to protect IV site / prevent frequent line interruptions/ long duration, Starting on 12/27/21 at 1757, For piggyback infusion, administer at same rate as piggyback for a total of 25 mL. Enter 25 mL into dose field and piggyback rate into rate field of order. If piggyback is infusing at a rate less than 100 mL/hr, enter 25 mL into dose field and 100 mL/hr into rate field of order. For KVO fluids, enter rate of 20 mL/hr or less into rate field of order. bisacodyl (DULCOLAX) suppository 10 mg 10 mg, Rectal, DAILY PRN, Starting on Carly 12/31/21 at 0830, Until Discontinued, Constipation, First line therapy for constipation dextrose 5 % solution 100 mL/hr, IntraVENous, PRN, Blood sugar less than 70mg/dL, Starting on Tue12/30/21 at 0944, Start infusion following administration of dextrose 50% or glucagon. dextrose 50 % IV solution 12.5 g, IntraVENous, PRN, Starting on Tue12/30/21 at 0944, Until Discontinued, Low blood sugar, Blood glucose less than 70 mg/dL and patient NOT ALERT or NPO., If patient does not respond within 5 minutes, repeat dose x1. Start D5W at 100 mL/hour until ordering provider can be reached. Repeat blood glucose in 15 minutes. If blood glucose is less than 70 mg/dL, repeat treatment and recheck blood glucose in 15 minutes x2. glucagon (rDNA) injection 1 mg 1 mg, IntraMUSCular, PRN, Starting on Tue12/30/21 at 0944, Until Discontinued, Low blood sugar, Blood glucose less than 70 mg/dL and patient NOT ALERT or NPO and does not have IV access., After administration, attempt intravenous access and start D5W at 100 mL/hr. Repeat blood glucose in 15 minutes x2 and notify provider. Glucose (TRUEPLUS) oral gel 15 g 15 g, Oral, PRN, Starting on Tue12/30/21 at 0944, Until Discontinued, Low blood sugar, If blood glucose less than 50 mg/dL and patient ALERT and NOT NPO, give 2 tubes glucose gel. If blood glucose less than 70 mg/dL and patient ALERT and NOT NPO, give 1 tube glucose gel. Repeat blood glucose in 15 minutes. If blood glucose is less than 70 mg/dL, repeat treatment and recheck blood glucose in 15 minutes x2 and notify provider. hydrALAZINE (APRESOLINE) injection 10 mg 10 mg, IntraVENous, EVERY 4 HOURS PRN, Starting on Tue01/01/22 at 0709, Until Discontinued, High Blood Pressure, for SBP>160, hold for HR>105, second line ipratropium-albuterol (DUONEB) nebulizer solution 1 ampule 1 ampule, Inhalation, 2 TIMES DAILY PRN, Starting on Tue01/06/22 at 0945, Until Discontinued, Shortness of Breath, Initiate RT Bronchodilator Protocol: No labetalol (NORMODYNE;TRANDATE) injection 10 mg 10 mg, IntraVENous, EVERY 4 HOURS PRN, Starting on Tue01/01/22 at 0715, Until Discontinued, High Blood Pressure, for SBP>160, hold for HR<60, first line melatonin SL liquid 0.3 mg 0.3 mg, SubLINGual, NIGHTLY PRN, Starting on Tue12/29/21 at 2100, Until Discontinued, Sleep 2235 (Given - Provider: Kade Zepeda LPN) 2148 (Given - Provider: Bekah Multani RN) ondansetron (ZOFRAN) injection 4 mg 4 mg, IntraVENous, EVERY 6 HOURS PRN, Starting on Tue12/27/21 at 1757, Until Discontinued, Nausea, Vomiting oxyCODONE (ROXICODONE) immediate release tablet 10 mg(Linked Group 1) 10 mg, Oral, EVERY 4 HOURS PRN, Starting on Tue12/27/21 at 1757, Until Discontinued, Pain Severe (7-10) 0754 (Given - Provider: Chacorta Snow RN)1356 (Given - Provider: Chacorta Snow RN)2011 (Given - Provider: Bekah Multani RN) 1558 (Given - Provider: Sonya Goff RN)214 (Given - Provider: Bekah Multani RN) 0847 (Given - Provider: Leonarda Casillas RN)1548 (Given - Provider: Leonarda Casillas RN) oxyCODONE (ROXICODONE) immediate release tablet 5 mg(Linked Group 1) 5 mg, Oral, EVERY 4 HOURS PRN, Starting on Tue12/27/21 at 1757, Until Discontinued, Pain Moderate (4-6) 0754 (See Alternative - Provider: Chacorta Snow RN)1356 (See Alternative - Provider: Chacorta Snow RN)2011 (See Alternative - Provider: Bekah Multani RN) 155 (See Alternative - Provider: Sonya Goff RN)214 (See Alternative - Provider: Bekah Multani RN) 0847 (See Alternative - Provider: Leonarda Casillas RN)1548 (See Alternative - Provider: Leonarda Casillas RN) sodium chloride (Inhalant) 3 % nebulizer solution 4 mL 4 mL, Nebulization, 2 TIMES DAILY PRN, Starting on Tue01/06/22 at 0945, Until Discontinued, Cough sodium chloride flush 0.9 % injection 5-40 mL 5-40 mL, IntraVENous, PRN, Starting on Tue12/27/21 at 1757, Until Discontinued, Line Care, After every IV line use, For Line Patency: Peripheral IV = 5 mL; Midline or Central Line = 10 mL/lumen. If following IV push medication, administer flush at same rate as the IV push. Flush volume is determined by type of infusion therapy being given. For non-viscous solutions use: Peripheral IV = 5 mL Midline or Central Line = 10 mL/lumen For viscous solutions (i.e. blood components, parenteral nutrition, contrast media, or after obtaining blood sample) use: Peripheral IV = 10 mL Midline or Central Line = 20 mL/lumen sodium chloride flush 0.9 % injection 5-40 mL 5-40 mL, IntraCATHeter, PRN, Starting on 12/28/21 at 1800, Until Discontinued, Line Care, before and after blood draws, infusion or medication administration, For Line Patency: Peripheral IV = 5 mL; Midline or Central Line = 10 mL/lumen. If following IV push medication, administer flush at same rate as the IV push. Flush volume is determined by type of infusion therapy being given. For non-viscous solutions use: Peripheral IV = 5 mL Midline or Central Line = 10 mL/lumen For viscous solutions (i.e. blood components, parenteral nutrition, contrast media, or after obtaining blood sample) use: Peripheral IV = 10 mL Midline or Central Line = 20 mL/lumen Linked Groups Order Group 1: oxyCODONE (ROXICODONE) immediate release tablet 5 mgJump to med 5 mg, Oral, EVERY 4 HOURS PRN, Starting on 12/27/21 at 1757, Until Discontinued, Pain Moderate (4-6) Or oxyCODONE (ROXICODONE) immediate release tablet 10 mgJump to med 10 mg, Oral, EVERY 4 HOURS PRN, Starting on 12/27/21 at 1757, Until Discontinued, Pain Severe (7-10) FOR RECORDS PERTAINING TO PATIENTS WHO ARE OR HAVE BEEN ENROLLED IN A CHEMICAL DEPENDENCY/SUBSTANCEABUSE PROGRAM, SOME INFORMATION MAY BE OMITTED. This clinical summary was aggregated from multiple sources. Caution should be exercised in using it in the provision of clinical care. This summary normalizes information from multiple sources, and as a consequence, information in this document may materially change the coding, format and clinical context of patient data. In addition, data may be omitted in some cases. CLINICAL DECISIONS SHOULD BE BASED ON THE PRIMARY CLINICAL RECORDS. [facility]. provides no warranty or guarantee of the accuracy or completeness of information in this document.
[2024-11-23 07:59] LABS: Vitamin B12 795 pg/mL (180-914)
== END ==
LOC: OLS.WHLTSB 05:00
PROVIDERS: PCP Internal Medicine; Visit Provider Internal Medicine
DX: E03.9 Hypothyroidism, unspecified (principal); J44.9 Chronic obstructive pulmonary disease, unspecified; G89.29 Other chronic pain
CPT/HCPCS: 36415; 82607; 84443

== ENCOUNTER → 2024-12-28 05:00 | Outpatient (REF) | payer MEDICARE, MEDICAID, SELFPAY ==
--- OUTSIDE RECORDS SUMMARY | 2024-12-28 03:47 | XMS RPT_ITS | CCD ---
Author Organization [facility] Care Team Providers Care Furnace Attendant Name Role Phone Dr. Michael Cox Primary Care Provider Dr. Roc Timmons Attending Provider Dr. Roc Timmons Referring Provider Dr. Michael Cox Referring Provider Michael Cox MD Primary Care Provider Michael Cox MD Primary Care Provider Michael Cox Primary Care Unavailable Marcus Murry Referring Unavailable Johnny Berrios Attending Unavailable Dr. Michael Cox Primary Care Provider RAYNE Doherty NP Attending Provider MICHAEL Bergeron Attending Unavailable MICHAEL COX Primary Care Unavailable Michael Cox MD Primary Care Provider Dr. Michael Cox Primary Care Provider Dr. Viviana Mcgee Attending Provider [phone] RAYNE Doherty Attending Provider [phone] Dr. Michael Cox Primary Care Provider Bessy BARRON, RAYNE Grey Attending Provider Dr. Viviana Gaines Attending Provider Bessy OLS, ANDERSON-Delano Grey Attending Provider Unavailable Primary Care Provider Dr. Michael Sosa Primary Care Provider Dr. Viviana Mcgee Attending Provider [place] REGISTERED VASCULAR TECHNOLOGIST (RVT), REGISTERED VASCULAR TECHNOLOGIST (RVT)-C Matilda Attending Provider Dr. Michael Bergeron Primary Care Provider Dr. Viviana Mcgee Attending Provider [phone] Dr. Zachary Cruz Attending Provider [phone] [place] REGISTERED VASCULAR TECHNOLOGIST (RVT), REGISTERED VASCULAR TECHNOLOGIST (RVT)-C Matilda Referring Provider Dr. Mcihael Bergeron Referring Provider Dr. Michael Cox Primary Care Provider [place] REGISTERED VASCULAR TECHNOLOGIST (RVT), REGISTERED VASCULAR TECHNOLOGIST (RVT)-C Matilda Attending Provider Unav Dr. Zachary Gómez Attending Provider [phone] [place] REGISTERED VASCULAR TECHNOLOGIST (RVT), REGISTERED VASCULAR TECHNOLOGIST (RVT)-C Matilda Referring Provider Gemav Dr. Viviana Perez Attending Provider [phone] Dr. Michael Cox Referring Provider Dr. Viviana Mcgee Primary Care Provider [phone] Dr. Michael Cox Primary Care Provider [place] REGISTERED VASCULAR TECHNOLOGIST (RVT), REGISTERED VASCULAR TECHNOLOGIST (RVT)-C Matilda Attending Provider Dr. Michael Bergeron Primary Care Provider Dr. Zachary Cruz Attending Provider [phone] [place] REGISTERED VASCULAR TECHNOLOGIST (RVT), REGISTERED VASCULAR TECHNOLOGIST (RVT)-C Matilda Attending Provider Dr. Viviana Mcgee Attending Provider [phone] Dr. Viviana Mcgee Referring Provider [phone] Dr. Viviana Mcgee Primary Care Provider [phone] [place] REGISTERED VASCULAR TECHNOLOGIST (RVT), REGISTERED VASCULAR TECHNOLOGIST (RVT)-C Matilda Attending Provider Dr. Zachary Cruz Attending Provider [phone] Dr. Viviana Mcgee Primary Care Provider [phone] [place] REGISTERED VASCULAR TECHNOLOGIST (RVT), REGISTERED VASCULAR TECHNOLOGIST (RVT)-C Matilda Attending Provider Dr. Viviana Mcgee Referring Provider [phone] Dr. Zachary Cruz Attending Provider [phone] Dr. Viviana Mcgee Attending Provider [phone] Dr. Viviana Mcgee Primary Care Provider [phone] Bessy REGISTERED VASCULAR TECHNOLOGIST (RVT), REGISTERED VASCULAR TECHNOLOGIST (RVT)-C Matilda Attending Provider Newton REGISTERED VASCULAR TECHNOLOGIST (RVT)-C Lesvia Attending Provider [phone] LAURA Perdomo Attending Provider [phone] Everardo STANLEY, Dr. Michelle Primary Care Provider Viviana Mcgee MD Attending Provider Jacintaa colleen Doherty REGISTERED VASCULAR TECHNOLOGIST (RVT)-C, Matilda Attending Provider Everardo STANLEY, Dr. Michelle Attending Provider [phone] Viviana Mcgee MD Referring Provider Cr Delatorre Attending Provider Everardo STANLEY, Dr. Michelle Referring Provider [phone] Lacy Mcmanus Attending Provider Bessy REGISTERED VASCULAR TECHNOLOGIST (RVT)-CMatilda Attending Provider [phone] Everardo STANLEY, Dr. Michelle Primary Care Provider Viviana Mcgee MD Attending Provider Shahid Doherty REGISTERED VASCULAR TECHNOLOGIST (RVT)-C, Matilda Attending Provider Lacy Mcmanus Referring Provider [phone] Zachary Cruz MD Attending Provider [phone] Everardo STANLEY, Dr. Michelle Primary Care Provider Viviana Mcgee MD Attending Provider UnavailDr. Viviana Todd MD Primary Care Provider Dr. Viviana Mcgee MD Attending Provider [phone] Bessy REGISTERED VASCULAR TECHNOLOGIST (RVT)-C, Matilda Attending Provider Everardo STANLEY, Dr. Michelle Primary Care Provider Lacy Mcmanus Attending Provider [phone] Viviana Mcgee MD Attending Provider Unavailchayo Mcgee MD, Dr. Efewongbe Attending Provider Matilda Doherty NP Attending Unavailable Oleghe, Efewongbe Primary Care Unavailable Oleghe, Efewongbe Primary Care Unavailable Cr Perdomo Attending Unavailable Matilda Doherty NP Attending Unavailable Oleghe, Efewongbe Primary Care Unavailable Oleghe, Efewongbe Attending Unavailable Oleghe, Efewongbe Primary Care Unavailable Oleghe, Efewongbe Primary Care Unavailable Oleghe OLS, Efewongbe Attending Unavailabl e Oleghe OLS, Efewongbe Attending Unavailabl e Oleghe, Efewongbe Primary Care Unavailable Oleghe, Efewongbe Primary Care Unavailable Barbour, Lacy Referring Unavailable BarbourJuan Francisco rosalesison Attending Unavailable Oleghe OLS, Efewongbe Attending Unavailabl e Oleghe, Efewongbe Primary Care Unavailable Oleghe, Efewongbe Referring Unavailable Oleghe, Efewongbe Primary Care Unavailable Lacy Barbour Attending Unavailable Oleghe, Efewongbe Primary Care Unavailable Lesvia Glez Attending Unavailable Zachary Cruz Attending Unavailable Oleghe, Efewongbe Primary Care Unavailable Barbour, Lacy Referring Unavailable Oleghe, Efewongbe Primary Care Unavailable Oleghe OLS, Efewongbe Attending Unavailabl e Oleghe, Efewongbe Primary Care Unavailable Oleghe OLS, Efewongbe Attending Unavailabl e Oleghe OLS, Efewongbe Attending Unavailabl e Oleghe, Efewongbe Primary Care Unavailable Matilda Emmanuel Attending Unavailable Oleghe, Efewongbe Primary Care Unavailable Oleghe OLS, Efewongbe Referring Unavailabl e Oleghe, Efewongbe Primary Care Unavailable Oleghe OLS, Efewongbe Attending Unavailabl e Oleghe, Efewongbe Primary Care Unavailable Oleghe OLS, Efewongbe Attending Unavailabl e Oleghe OLS, Efewongbe Attending Unavailabl e Oleghe, Efewongbe Primary Care Unavailable Oleghe OLS, Efewongbe Attending Unavailabl e Oleghe, Efewongbe Primary Care Unavailable Oleghe, Efewongbe Primary Care Unavailable Oleghe, Efewongbe Attending Unavailable Oleghe OLS, Efewongbe Attending Unavailabl e Oleghe, Efewongbe Primary Care Unavailable Oleluize OLS Efewongbe Attending Unavailabl e Oleghe, Efewongbe Primary Care Unavailable Oleghe, Efewongbe Attending Unavailable Oleghe, Efewongbe Primary Care Unavailable Oleghe, Efewongbe Attending Unavailable Oleghe, Efewongbe Primary Care Unavailable Bessy REGISTERED VASCULAR TECHNOLOGIST (RVT), Matilda Attending Unavailable Oleghe, Efewongbe Primary Care Unavailable Oleghe, Efewongbe Primary Care Unavailable Bessy REGISTERED VASCULAR TECHNOLOGIST (RVT)Matilda Attending Unavailable Oleghe, Efewongbe Primary Care Unavailable Oleghe, Efewongbe Attending Unavailable Allergies Allergy Classification Reported Allergen(s) Allergy Type Date of Onset Reaction(s) Facility (20 sources) Adhesive Tape; Translations: [adhesive tape] Propensity to adverse reactions 2 Rash [facility] (19 sources) Azithromycin; Translations: [AZITHROMYCIN] Drug Allergy 8 PT UNSURE OF REACTION [facility] Work Phone: (5 sources) Bisoprolol / hydroCHLOROthiaz guerita; Translations: [BISOPROLOL-HYDR OCHLOROTHIAZIDE] Drug Allergy 8 [facility] Work Phone: (5 sources) Latex; Translations: [LATEX] Propensity to adverse reactions 9 [facility] Work Phone: (14 sources) Bisoprolol Drug Allergy 3 PT UNSURE OF REACTION [facility] (1 source) Azithromycin Drug Allergy 5 [facility] Repository (1 source) Bisoprolol Drug Allergy 5 [facility] Repository Medications Current Medications Medication Drug [...] mg from all sources in 24 hours. [id number] 200 actuat albuterol 0.09 mg/actuat metered dose [...] Comment on above: Take 1 tablet by [facility] once daily. bisacodyl 10 mg rectal suppository [...] injectable solution (3 sources) Start: 12-28-2021 End: 12-28-2021 500 mL, IntraVENous, at 247. 9 mL/hr, Administer over 121 Minutes, ONCE, On 12/28/21 at 1530, For 1 dose Start: 12-27-2021 End: 12-30-2021 IntraVENous, at 50 mL/hr, CO NTINUOUS, Starting on Tue12/27/21 at 1430 cholecalciferol 0.05 mg oral capsule (5 sources) Vitamin D Start: 06-27-2024 take 1 capsule by mouth once daily Cholecalciferol (Vitamin D3) 50 mcg (2,000 unit) capsule Discontinued 50 ug PO daily June 27, 2024 1:00am docusate sodium 50 mg / sennosides, intermediate 8.6 mg oral tablet (1 source) Start: [...] sulfate 40 mg/ml injection (1 source) Start: 2 End: 2 2,000 mg, IntraVENous, at 25 mL/hr, Administer over 2 Hours, ONCE, On Carly 12/31/21 at 1200, For 1 dose Recommended infusion rate not to exceed 1,000 mg (milligrams) per hour. mirtazapine 15 mg oral tablet (17 sources) Start: 3 End: take 1 tablet by mouth at bedtime [...] mg, IntraVENous, ONCE, 1 d ose, On 12/28/21 at 1200 If oral and IV narcotics [...] IntraVENous, EVERY 6 HOURS PRN, Starting on 12/27/21 at 1757, Until Discontinued, Nausea, Vomiting PHENobarbital [...] 24 and 32 mcg/mL polyethylene glycol [id number] mg powder for oral solution (1 source) [...] on 08-24-2024 TSH Qn 1.860 uIU/mL 0.300-4.200 [facility] Vitamin B12 ser/plasOrdered By: Viviana Mcgee on 08-24-2024 Cobalamin (Vitamin B12) [Mass/Vol] 885 pg/mL 180-914 [facility] Arterial study reportOrdered By: Zachary Cruz on 07-31-2024 Noninvasive arteriosclerosis study report [facility] [address] [place] [address] Lower Ext Art Exam w/o Exercis 07/31/24 1102 MR#: [id number] Acct: [id number] Name: JAIMIE AVENDANO Rep #:[id number] : 1945 79 From: Zachary Adams Attending Dr: LAURA Irby Stat us: REG CLI Ordering Dr: Lacy Barbour Date: Location: [facility] Sex: F C Admitted: Reason For Study [...] Dictated: 07/31/24 1102 Date Transcribed: 07/31/24 1800 Product Marketing Director: Signed [facility] Work Phone: Lower Ext Art Exam w/o Exerc do 07-31-2024 Lower Ext Art Exam w/o Exercis [facility] [address] [place] [id number] Lower Ext Art Exam w/o Exercis 07/31/241101 MR#: [id number] Acct: [id number] Name: JAIMIE AVENDANO Rep #: [id number] : 1945 79 From: Zachary Cruz MD Attending Dr: LAURA Irby Status: REG CLI Ordering Dr: Lacy Barbour Date: 07/31/24 Location: [facility] Sex: F C Admitted: Reason For Study [...] Dictated: 07/31/24 1102 Date Transcribed: 07/31/24 1800 Product Marketing Director: Signed Normal [facility] Calculated very low density lipoprotein (VLDL) cholesterol measurementOrdered By: Matilda Doherty on 06-29-2024 Calculated very low density lipoprotein (VLDL) cholesterol measurement 31 mg/dL [facility] VLDL Cholesterol 31 mg/dL [facility] LDL calc ser/plasOrdered By: Matilda Doherty on 06-29-2024 Cholesterol in LDL [Mass/Vol] 34 mg/dL [facility] Comment on above: Goiiilvimq=919-150 m g/dL & Higher Tmsj=985 mg/dL or greater LDL Cholesterol, Calculated 34 mg/dL [facility] Comment on above: Mrmgoyqfnl=149-816 m g/dL & Higher Pxfz=401 mg/dL or greater Screening total cholesterol/ high density lipoprotein (HDL) cholesterol ratioOrdered By: Matilda Doherty on 06-29-2024 Cholesterol.total/Vicenta sterol in HDL [Mass ratio] 2.68 {ratio} [facility] Serum or plasma cholesterol in HDL measurement (mass/volume)Ordered By: Matilda Doherty on 06-29-2024 Cholesterol in HDL [Mass/Vol] 39 mg/dL Low >40 [facility] Comment on above: National Cholesterol Education Program (NCEP) guidelines:<40 mg/dL: Low HDL-cholesterol (major risk factor for CHD)>= 60 mg/dL: High HDL-cholesterol (negative risk factor for CHD)HDL-cholesterol is affected by a number of factors, e.g. smoking, exercise, hormones, sex and age. Serum or plasma cholesterol measurement (mass/volume)Ordered By: Matilda Doherty on 06-29-2024 Cholesterol [Mass/Vol] 105 mg/dL <201 [facility] Comment on above: Cholesterol level, D esirable <200 mg/dLBorderline high cholesterol 200-239 mg/dLHigh cholesterol >=240 mg/dLRecommendations of the NCEP Adult Treatment Panel for the following risk-cutoff thresholds for the [place] population. Triglycerides measurementOrd ered By: Matilda Doherty on 06-29-2024 Triglyceride [Mass/Vol] 157 mg/dL <[address] [facility] Comment on above: The drugs N-Acetylcy steine and Metamizole may falsely depress this assay. Normal range: <150 mg/dLBorderline High: 150-199 mg/dLHigh: 200-499 mg/dLVery High: >500 mg/dL Justen 06-27-2024 MARY [facility] [address] [place] [address] OFFICE VISIT Date of Service: 06/27/24 MR#: [id number] Acct: [id number] Name: JAIMIE AVENDANO Rep #: [id number] : 1945 Provider: LAURA Irby Age/Sex: 78/F [...] disorders, N (more content not included)... Normal [facility] Hemoglobin A1c percentageOrd ered By: Viviana Mcgee on 06-07-2024 HbA1c (Bld) [Mass fraction] 6.4 % High 3.8-5.6 [facility] Comment on above: Normal < 5.7 % Predi abetic 5.7 - 6.4 % Diabetic >or= 6.5 % Please note range changes. Vitamin B12 measurementOrder ed By: Viviana Mcgee on 06-01-2024 Cobalamin (Vitamin B12) [Mass/Vol] 475 pg/mL 211-911 [facility] 72-JN-Usfuish DOrdered By: Ji Mcgee on 04-27-2024 Vitamin D 25-Hydroxy 22.5 ng/mL [facility] Comment on above: Vitamin D 25(OH) Sta tus Range Deficiency <20 ng/mL (50nmol/L) Insufficiency 20 - 30 ng/mL (50 - 75 nmol/L) Sufficiency 30 - 100 ng/mL (75 - 250 nmol/L) Toxicity >100 ng/mL (>250 nmol/L) Absolute neutrophil countOrd ered By: Viviana Mcgee on 04-27-2024 Neutrophils (Bld) [#/Vol] 2.3 10*3/uL 2.0-7.7 [facility] Albumin to globulin ratioOrd ered By: Viviana Mcgee on 04-27-2024 Albumin/Globulin [Mass ratio] 1.0 {ratio} 0.9-2.4 [facility] Basophil percentageOrdered B y: Viviana Mcgee on 04-27-2024 Basophils/100 WBC (Bld) 0.9 % 0-[address] [facility] Bilirubin, totalOrdered By: Viviana Mcgee on 04-27-2024 Bilirubin [Mass/Vol] 0.40 mg/dL 0.20-1.00 [facility] Comment on above: For patients on eltr ombopag therapy, use of Dimension [place] TBIL is not recommended. Blood urea nitrogen (BUN)/cr eatinine ratioOrdered By: Viviana Mcgee on 04-27-2024 Urea nitrogen/Creatinine [Mass ratio] 14.4 mg/mg 10-20 [facility] Carbon dioxide measurementOr dered By: Viviana Mcgee on 04-27-2024 CO2 [Moles/Vol] 27.0 mmol/L 21.0-32.0 [facility] Chloride measurementOrdered By: Viviana Mcgee on 04-27-2024 Chloride [Moles/Vol] 110 mmol/L High 98-107 [facility] Eosinophil percentageOrdered By: Viviana Mcgee on 04-27-2024 Eosinophils/100 WBC (Bld) 2.9 % 0-5 [facility] Erythrocyte distribution wid th (RBC) [Ratio]Ordered By: Viviana Mcgee on 04-27-2024 Erythrocyte distribution width (RBC) [Entitic vol] 45.0 fL High 35.1-43.9 [facility] Erythrocyte distribution wid th ratioOrdered By: Viviana Mcgee on 04-27-2024 Erythrocyte distribution width (RBC) [Ratio] 12.5 % 11.6-14.6 [facility] Estimated glomerular filtrat ion rate (GFR) AmericanOrdered By: Viviana Mcgee on 04-27-2024 Estimated GFR (MDRD) Amer 85 mL/min >60 [facility] Comment on above: GFR Calc Glomerular filtration rate ( GFR) estimationOrdered By: Viviana Mcgee on 04-27-2024 Estimated GFR (MDRD) Non-Af Amer 71 mL/min >60 [facility] Comment on above: Non- GFR Calc Glucose measurementOrdered B y: Viviana Mcgee on 04-27-2024 Glucose [Mass/Vol] 107 mg/dL High 74-106 [facility] Comment on above: Fasting Glucose resu lt from 100 to 125 mg/dL suggests IMPAIRED HOMEOSTASIS per A.D.A. criteria. Hematocrit Auto (Bld) [Volum e fraction]Ordered By: Viviana Mcgee on 04-27-2024 Hematocrit (Bld) [Volume fraction] 37.6 % 37-47 [facility] Hemoglobin measurementOrdere d By: Viviana Mcgee on 04-27-2024 Hemoglobin (Bld) [Mass/Vol] 12.1 g/dL 12.0-15.0 [facility] Immature granulocytes/100 WB C Auto (Bld)Ordered By: Viviana Mcgee on 04-27-2024 Immature granulocytes/100 WBC (Bld) 0.200 % 0.0-0.9 [facility] Comment on above: IG% - Immature Granu locytes (promyelocytes, myelocytes and metamyelocytes) > 1% indicates that a LEFT SHIFT is Present. Laboratory - Chemistry and C hemistry - challengeOrdered By: Viviana Mcgee on 04-27-2024 AST [Catalytic activity/Vol] 18 U/L 15-37 [facility] Lymphocytes Auto (Unsp spec) [#/Vol]Ordered By: Viviana Mcgee on 04-27-2024 Lymphocytes (Bld) [#/Vol] 1.58 10*3/uL 0.83-4.51 [facility] Lymphocytes/100 WBC Auto (Un sp spec)Ordered By: Viviana Mcgee on 04-27-2024 Lymphocytes/100 WBC (Bld) 35.0 % 19-41 [facility] MCV (mean corpuscular volume ) determinationOrdered By: Viviana Mcgee on 04-27-2024 MCV (RBC) [Entitic vol] 98.2 fL 81-[address] [facility] Mean corpuscular hemoglobin (MCH) determinationOrdered By: Viviana Mcgee on 04-27-2024 MCH (RBC) [Entitic mass] 31.6 pg 27.0-32.0 [facility] Mean corpuscular hemoglobin concentration (MCHC) determinationOrdered By: Viviana Mcgee on 04-27-2024 MCHC (RBC) [Mass/Vol] 32.2 g/dL 32-36 [facility] Mean platelet volume determi nationOrdered By: Viviana Mcgee on 04-27-2024 Platelet mean volume (Bld) [Entitic vol] 9.8 fL 6.2-12.0 [facility] Monocyte percentageOrdered B y: Viviana Mcgee on 04-27-2024 Monocytes/100 WBC (Bld) 10.2 % High 0-[address] [facility] Neutrophil percentageOrdered By: Viviana Mcgee on 04-27-2024 Neutrophils/100 WBC (Bld) 50.8 % 47-70 [facility] Nucleated red blood cell per centageOrdered By: Viviana Mcgee on 04-27-2024 Nucleated RBC/100 WBC (Bld) [Ratio] 0 % 0-5 [facility] Platelet countOrdered By: Link Mcgee on 04-27-2024 Platelets (Bld) [#/Vol] 240 10*3/uL 150-450 [facility] Potassium measurementOrdered By: Viviana Mcgee on 04-27-2024 Potassium [Moles/Vol] 3.7 mmol/L 3.5-5.1 [facility] RBC Auto (Bld) [#/Vol]Ordere d By: Viviana Mcgee on 04-27-2024 RBC (Bld) [#/Vol] 3.83 10*6/uL Low 4.2-5.4 [facility] Serum anion gap measurementO rdered By: Viviana Mcgee on 04-27-2024 Anion gap [Moles/Vol] 4 mmol/L Low 5-15 [facility] Serum globulin measurementOr dered By: Viviana Mcgee on 04-27-2024 Globulin (S) [Mass/Vol] 3.2 g/dL 2.2-4.[address] [facility] Serum or plasma alanine jay otransferase (ALT) measurementOrdered By: Viviana Mcgee on 04-27-2024 ALT [Catalytic activity/Vol] 18 U/L 13-56 [facility] Serum or plasma albumin fiona urement (mass/volume)Ordered By: Viviana Mcgee on 04-27-2024 Albumin [Mass/Vol] 3.2 g/dL 3.2-5.0 [facility] Serum or plasma alkaline dmitry sphatase measurementOrdered By: Linklawsonjose apapa Watsonluizji on 04-27-2024 ALP [Catalytic activity/Vol] 108 U/L 45-117 [facility] Serum or plasma calcium fiona urement (mass/volume)Ordered By: Linklawsonclint Walterluizji on 04-27-2024 Calcium [Mass/Vol] 8.4 mg/dL Low 8.5-10.1 [facility] Serum or plasma creatinine m easurement (mass/volume)Ordered By: Linklawsonjose apapa Watsonluizji on 04-27-2024 Creatinine [Mass/Vol] 0.83 mg/dL 0.55-1.02 [facility] Comment on above: The validity of the calculated GFR & GFRAA in patients over 70 years has not been determined. Clinical correlation is essential. Serum or plasma urea nitroge n measurement (mass/volume)Ordered By: Viviana Mcgee on 04-27-2024 Urea nitrogen [Mass/Vol] 12 mg/dL 7-18 [facility] Sodium levelOrdered By: Reynaldo jaramillo Walterluizji on 04-27-2024 Sodium [Moles/Vol] 141 mmol/L 136-145 [facility] Total proteinOrdered By: Reza boothe Walterluizji on 04-27-2024 Protein [Mass/Vol] 6.4 g/dL 6.4-8.2 [facility] White blood cell (WBC) count Ordered By: Viviana Mcgee on 04-27-2024 WBC (Bld) [#/Vol] 4.5 10*3/uL 4.4-11.0 [facility] Absolute neutrophil countOrd ered By: Linklevy Watsonluizji on 03-30-2024 Neutrophils (Bld) [#/Vol] 3.0 10*3/uL 2.0-7.7 [facility] Albumin to globulin ratioOrd ered By: Linklevy Watsonluizji on 03-30-2024 Albumin/Globulin [Mass ratio] 1.1 {ratio} 0.9-2.4 [facility] Basophil percentageOrdered B y: Linklevy Watsonluizji on 03-30-2024 Basophils/100 WBC (Bld) 0.9 % 0-[address] [facility] Bilirubin, totalOrdered By: Viviana Mcgee on 03-30-2024 Bilirubin [Mass/Vol] 0.40 mg/dL 0.20-1.00 [facility] Comment on above: For patients on eltr ombopag therapy, use of Dimension [place] TBIL is not recommended. Blood urea nitrogen (BUN)/cr eatinine ratioOrdered By: Viviana Mcgee on 03-30-2024 Urea nitrogen/Creatinine [Mass ratio] 15.5 mg/mg 10-20 [facility] Carbon dioxide measurementOr dered By: Viviana Mcgee on 03-30-2024 CO2 [Moles/Vol] 27.0 mmol/L 21.0-32.0 [facility] Chloride measurementOrdered By: Viviana Mcgee on 03-30-2024 Chloride [Moles/Vol] 112 mmol/L High 98-107 [facility] Eosinophil percentageOrdered By: Viviana Mcgee on 03-30-2024 Eosinophils/100 WBC (Bld) 2.8 % 0-5 [facility] Erythrocyte distribution wid th (RBC) [Ratio]Ordered By: Viviana Mcgee on 03-30-2024 Erythrocyte distribution width (RBC) [Entitic vol] 46.0 fL High 35.1-43.9 [facility] Erythrocyte distribution wid th ratioOrdered By: Viviana Mcgee on 03-30-2024 Erythrocyte distribution width (RBC) [Ratio] 12.8 % 11.6-14.6 [facility] Estimated glomerular filtrat ion rate (GFR) AmericanOrdered By: Viviana Mcgee on 03-30-2024 Estimated GFR (MDRD) Amer 93 mL/min >60 [facility] Comment on above: GFR Calc Glomerular filtration rate ( GFR) estimationOrdered By: Viviana Mcgee on 03-30-2024 Estimated GFR (MDRD) Non-Af Amer 77 mL/min >60 [facility] Comment on above: Non- GFR Calc Glucose measurementOrdered B y: Viviana Mcgee on 03-30-2024 Glucose [Mass/Vol] 119 mg/dL High 74-106 [facility] Comment on above: Fasting Glucose resu lt from 100 to 125 mg/dL suggests IMPAIRED HOMEOSTASIS per A.D.A. criteria. Hematocrit Auto (Bld) [Volum e fraction]Ordered By: Viviana Mcgee on 03-30-2024 Hematocrit (Bld) [Volume fraction] 37.1 % 37-47 [facility] Hemoglobin measurementOrdere d By: Viviana Mcgee on 03-30-2024 Hemoglobin (Bld) [Mass/Vol] 12.1 g/dL 12.0-15.0 [facility] Immature granulocytes/100 WB C Auto (Bld)Ordered By: Viviana Mcgee on 03-30-2024 Immature granulocytes/100 WBC (Bld) 0.400 % 0.0-0.9 [facility] Comment on above: IG% - Immature Granu locytes (promyelocytes, myelocytes and metamyelocytes) > 1% indicates that a LEFT SHIFT is Present. Laboratory - Chemistry and C hemistry - challengeOrdered By: Viviana Mcgee on 03-30-2024 AST [Catalytic activity/Vol] 14 U/L Low 15-37 [facility] Lymphocytes Auto (Unsp spec) [#/Vol]Ordered By: Viviana Mcgee on 03-30-2024 Lymphocytes (Bld) [#/Vol] 1.63 10*3/uL 0.83-4.51 [facility] Lymphocytes/100 WBC Auto (Un sp spec)Ordered By: Viviana Mcgee on 03-30-2024 Lymphocytes/100 WBC (Bld) 30.2 % 19-41 [facility] MCV (mean corpuscular volume ) determinationOrdered By: Viviana Mcgee on 03-30-2024 MCV (RBC) [Entitic vol] 98.1 fL 81-[address] [facility] Mean corpuscular hemoglobin (MCH) determinationOrdered By: Viviana Mcgee on 03-30-2024 MCH (RBC) [Entitic mass] 32.0 pg 27.0-32.0 [facility] Mean corpuscular hemoglobin concentration (MCHC) determinationOrdered By: Viviana Mcgee on 03-30-2024 MCHC (RBC) [Mass/Vol] 32.6 g/dL 32-36 [facility] Mean platelet volume determi nationOrdered By: Viviana Mcgee on 03-30-2024 Platelet mean volume (Bld) [Entitic vol] 9.8 fL 6.2-12.0 [facility] Monocyte percentageOrdered B y: Viviana Mcgee on 03-30-2024 Monocytes/100 WBC (Bld) 10.4 % High 0-[address] [facility] Neutrophil percentageOrdered By: Viviana Mcgee on 03-30-2024 Neutrophils/100 WBC (Bld) 55.3 % 47-70 [facility] Nucleated red blood cell per centageOrdered By: Viviana Mcgee on 03-30-2024 Nucleated RBC/100 WBC (Bld) [Ratio] 0 % 0-5 [facility] Platelet countOrdered By: Link Mcgee on 03-30-2024 Platelets (Bld) [#/Vol] 241 10*3/uL 150-450 [facility] Potassium measurementOrdered By: Viviana Mcgee on 03-30-2024 Potassium [Moles/Vol] 3.7 mmol/L 3.5-5.1 [facility] RBC Auto (Bld) [#/Vol]Ordere d By: Viviana Mcgee on 03-30-2024 RBC (Bld) [#/Vol] 3.78 10*6/uL Low 4.2-5.4 [facility] Serum anion gap measurementO rdered By: Viviana Mcgee on 03-30-2024 Anion gap [Moles/Vol] 6 mmol/L 5-15 [facility] Serum globulin measurementOr dered By: Viviana Mcgee on 03-30-2024 Globulin (S) [Mass/Vol] 3.1 g/dL 2.2-4.2 [facility] Serum or plasma alanine jay otransferase (ALT) measurementOrdered By: Viviana Mcgee on 03-30-2024 ALT [Catalytic activity/Vol] 15 U/L 13-56 [facility] Serum or plasma albumin fiona urement (mass/volume)Ordered By: Linklevy Watsonluizji on 03-30-2024 Albumin [Mass/Vol] 3.5 g/dL 3.2-5.0 [facility] Serum or plasma alkaline dmitry sphatase measurementOrdered By: Linklawsonjose apapa Watsonluizji on 03-30-2024 ALP [Catalytic activity/Vol] 114 U/L 45-117 [facility] Serum or plasma calcium fiona urement (mass/volume)Ordered By: Viviana Watsonluizji on 03-30-2024 Calcium [Mass/Vol] 8.5 mg/dL 8.5-10.1 [facility] Serum or plasma creatinine m easurement (mass/volume)Ordered By: Linklevy Watsonluizji on 03-30-2024 Creatinine [Mass/Vol] 0.77 mg/dL 0.55-1.02 [facility] Comment on above: The validity of the calculated GFR & GFRAA in patients over 70 years has not been determined. Clinical correlation is essential. Serum or plasma urea nitroge n measurement (mass/volume)Ordered By: Linklevy Mcgee on 03-30-2024 Urea nitrogen [Mass/Vol] 12 mg/dL 7-18 [facility] Sodium levelOrdered By: Linklawson clint Walterluizji on 03-30-2024 Sodium [Moles/Vol] 144 mmol/L 136-145 [facility] Total proteinOrdered By: Reza boothe Walterluizji on 03-30-2024 Protein [Mass/Vol] 6.6 g/dL 6.4-8.2 [facility] White blood cell (WBC) count Ordered By: Viviana Mcgee on 03-30-2024 WBC (Bld) [#/Vol] 5.4 10*3/uL 4.4-11.0 [facility] Absolute lymphocyte countOrd ered By: Matilda Doherty on 08-26-2023 Lymphocytes Auto (Unsp spec) [#/Vol] 1.44 10*3/uL 0.83-4.51 [facility] Automated lymphocyte count a s percentage of total leukocytesOrdered By: Matilda Doherty on 08-26-2023 Lymphocytes/100 WBC Auto (Unsp spec) 30.2 % 19-41 [facility] Basophil percentageOrdered B y: Matilda Doherty on 08-26-2023 Basophils/100 WBC (Bld) 1.3 % 0-[address] [facility] Bilirubin [Mass/Vol] 0.30 mg/dL 0.20-1.00 [facility] Comment on above: For patients on eltr ombopag therapy, use of Dimension [place] TBIL is not recommended. Chloride [Moles/Vol] 109 mmol/L 98-107 [facility] Eosinophils/100 WBC (Bld) 3.8 % 0-5 [facility] Glucose [Mass/Vol] 121 mg/dL 74-106 [facility] Comment on above: Fasting Glucose resu lt from 100 to 125 mg/dL suggests IMPAIRED HOMEOSTASIS per A.D.A. criteria. Hemoglobin (Bld) [Mass/Vol] 12.1 g/dL 12.0-15.0 [facility] Monocytes/100 WBC (Bld) 11.7 % 0-[address] [facility] Neutrophils (Bld) [#/Vol] 2.5 10*3/uL 2.0-7.7 [facility] Neutrophils/100 WBC (Bld) 52.8 % 47-70 [facility] Potassium [Moles/Vol] 4.3 mmol/L 3.5-5.1 [facility] Protein [Mass/Vol] 6.9 g/dL 6.4-8.2 [facility] Sodium [Moles/Vol] 141 mmol/L 136-145 [facility] WBC (Bld) [#/Vol] 4.8 10*3/uL 4.4-11.0 [facility] Determination of erythrocyte mean corpuscular volume (MCV)Ordered By: Matilda Doherty on 08-26-2023 MCV (RBC) [Entitic vol] 99.5 fL 81-[address] [facility] Erythrocyte distribution wid th ratioOrdered By: Matilda Doherty on 08-26-2023 Erythrocyte distribution width (RBC) [Ratio] 12.6 % 11.6-14.6 [facility] Erythrocyte distribution wid th standard deviationOrdered By: Matilda Doherty on 08-26-2023 Erythrocyte distribution width (RBC) [Entitic vol] 46.0 fL 35.1-43.9 [facility] Hematocrit Auto (Bld) [Volum e fraction]Ordered By: Matilda Doherty on 08-26-2023 Hematocrit (Bld) [Volume fraction] 37.6 % 37-47 [facility] Immature granulocytes/100 WB C Auto (Bld)Ordered By: Matilda Doherty on 08-26-2023 Immature granulocytes/100 WBC (Bld) 0.200 % 0.0-0.9 [facility] Comment on above: IG% - Immature Granu locytes (promyelocytes, myelocytes and metamyelocytes) > 1% indicates that a LEFT SHIFT is Present. Laboratory - Chemistry and C hemistry - challengeOrdered By: Matilda Doherty on 08-26-2023 Albumin/Globulin [Mass ratio] 1.1 {ratio} 0.9-2.4 [facility] ALP [Catalytic activity/Vol] 89 U/L 45-117 [facility] ALT [Catalytic activity/Vol] 17 U/L 13-56 [facility] CO2 [Moles/Vol] 24.0 mmol/L 21.0-32.0 [facility] Globulin (S) [Mass/Vol] 3.3 g/dL 2.2-4.[address] [facility] Urea nitrogen/Creatinine [Mass ratio] 17.3 mg/mg 10-20 [facility] Laboratory - Hematology and Cell countsOrdered By: Matilda Doherty on 08-26-2023 MCH (RBC) [Entitic mass] 32.0 pg 27.0-32.0 [facility] MCHC (RBC) [Mass/Vol] 32.2 g/dL 32-36 [facility] Nucleated RBC/100 WBC (Bld) [Ratio] 0 % 0-5 [facility] Platelet mean volume (Bld) [Entitic vol] 9.3 fL 6.2-12.0 [facility] Platelets (Bld) [#/Vol] 250 10*3/uL 150-450 [facility] No Panel InformationOrdered By: Matilda Doherty on 08-26-2023 Estimated GFR (MDRD) Amer 76 mL/min >60 [facility] Comment on above: GFR Calc Estimated GFR (MDRD) Non-Af Amer 63 mL/min >60 [facility] Comment on above: Non- GFR Calc RBC Auto (Bld) [#/Vol]Ordere d By: Matilda Doherty on 08-26-2023 RBC (Bld) [#/Vol] 3.78 10*6/uL 4.2-5.4 [facility] Serum or plasma calcium fiona urement (mass/volume)Ordered By: Matilda Doherty on 08-26-2023 Calcium [Mass/Vol] 8.8 mg/dL 8.5-10.1 [facility] Serum or plasma creatinine m easurement (mass/volume)Ordered By: Matilda Doherty on 08-26-2023 Creatinine [Mass/Vol] 0.92 mg/dL 0.55-1.02 [facility] Comment on above: The validity of the calculated GFR & GFRAA in patients over 70 years has not been determined. Clinical correlation is essential. Serum or plasma thyroid stim ulating hormone (TSH) measurement (units/volume)Ordered By: Matilda Doherty on 08-26-2023 TSH Qn 1.89 uIU/mL 0.358-3.74 [facility] Serum or plasma urea nitroge n measurement (mass/volume)Ordered By: Matilda Doherty on 08-26-2023 Urea nitrogen [Mass/Vol] 16 mg/dL 7-18 [facility] Thin prep Papanicolaou smear with manual screeningOrdered By: Matilda Doherty on 08-26-2023 Thin prep Papanicolaou smear with manual screening 3.6 g/dL 3.2-5.0 [facility] Thin prep Papanicolaou smear with manual screening 16 U/L 15-37 [facility] Thin prep Papanicolaou smear with manual screening 8 5-15 [facility] No Panel InformationOrdered By: Viviana Mcgee on 08-16-2023 Vitamin D 25-Hydroxy 74.1 ng/mL [facility] Comment on above: Vitamin D 25(OH) Sta tus Range Deficiency <20 ng/mL (50nmol/L) Insufficiency 20 - 30 ng/mL (50 - 75 nmol/L) Sufficiency 30 - 100 ng/mL (75 - 250 nmol/L) Toxicity >100 ng/mL (>250 nmol/L) Absolute lymphocyte countOrd ered By: Viviana Watsonluizji on 07-29-2023 Lymphocytes Auto (Unsp spec) [#/Vol] 1.41 10*3/uL 0.83-4.51 [facility] Automated lymphocyte count a s percentage of total leukocytesOrdered By: Reynaldojose apapa Watsonluizji on 07-29-2023 Lymphocytes/100 WBC Auto (Unsp spec) 21.1 % 19-41 [facility] Basophil percentageOrdered B y: [place] on 07-29-2023 Basophils/100 WBC (Bld) 0.7 % 0-[address] [facility] Bilirubin [Mass/Vol] 0.30 mg/dL 0.20-1.00 [facility] Comment on above: For patients on eltr ombopag therapy, use of Dimension [place] TBIL is not recommended. Chloride [Moles/Vol] 113 mmol/L 98-107 [facility] Eosinophils/100 WBC (Bld) 2.7 % 0-5 [facility] Glucose [Mass/Vol] 112 mg/dL 74-106 [facility] Comment on above: Fasting Glucose resu lt from 100 to 125 mg/dL suggests IMPAIRED HOMEOSTASIS per A.D.A. criteria. Hemoglobin (Bld) [Mass/Vol] 12.0 g/dL 12.0-15.0 [facility] Monocytes/100 WBC (Bld) 9.1 % 0-[address] [facility] Neutrophils (Bld) [#/Vol] 4.4 10*3/uL 2.0-7.7 [facility] Neutrophils/100 WBC (Bld) 66.0 % 47-70 [facility] Potassium [Moles/Vol] 4.0 mmol/L 3.5-5.1 [facility] Protein [Mass/Vol] 6.8 g/dL 6.4-8.2 [facility] Sodium [Moles/Vol] 142 mmol/L 136-145 [facility] WBC (Bld) [#/Vol] 6.7 10*3/uL 4.4-11.0 [facility] Determination of erythrocyte mean corpuscular volume (MCV)Ordered By: Viviana Mcgee on 07-29-2023 MCV (RBC) [Entitic vol] 99.2 fL 81-[address] [facility] Erythrocyte distribution wid th ratioOrdered By: levy Mcgee on 07-29-2023 Erythrocyte distribution width (RBC) [Ratio] 12.8 % 11.6-14.6 [facility] Erythrocyte distribution wid th standard deviationOrdered By: [facility] [address] Walterji on 07-29-2023 Erythrocyte distribution width (RBC) [Entitic vol] 46.4 fL 35.1-43.9 [facility] Hematocrit Auto (Bld) [Volum e fraction]Ordered By: [facility] [address] Everardo on 07-29-2023 Hematocrit (Bld) [Volume fraction] 37.3 % 37-47 [facility] Immature granulocytes/100 WB C Auto (Bld)Ordered By: [facility] [address] Walterji on 07-29-2023 Immature granulocytes/100 WBC (Bld) 0.400 % 0.0-0.9 [facility] Comment on above: IG% - Immature Granu locytes (promyelocytes, myelocytes and metamyelocytes) > 1% indicates that a LEFT SHIFT is Present. Laboratory - Chemistry and C hemistry - challengeOrdered By: lawsonshullsburgpapa Watsonji on 07-29-2023 Albumin/Globulin [Mass ratio] 1.0 {ratio} 0.9-2.4 [facility] ALP [Catalytic activity/Vol] 92 U/L 45-117 [facility] ALT [Catalytic activity/Vol] 15 U/L 13-56 [facility] CO2 [Moles/Vol] 25.0 mmol/L 21.0-32.0 [facility] Globulin (S) [Mass/Vol] 3.4 g/dL 2.2-4.2 [facility] Urea nitrogen/Creatinine [Mass ratio] 13.4 mg/mg 10-20 [facility] Laboratory - Hematology and Cell countsOrdered By: lawsonshullsburgpapa Mcgee on 07-29-2023 MCH (RBC) [Entitic mass] 31.9 pg 27.0-32.0 [facility] MCHC (RBC) [Mass/Vol] 32.2 g/dL 32-36 [facility] Nucleated RBC/100 WBC (Bld) [Ratio] 0 % 0-5 [facility] Platelet mean volume (Bld) [Entitic vol] 9.4 fL 6.2-12.0 [facility] Platelets (Bld) [#/Vol] 275 10*3/uL 150-450 [facility] No Panel InformationOrdered By: Viviana Mcgee on 07-29-2023 Estimated GFR (MDRD) Amer 79 mL/min >60 [facility] Comment on above: GFR Calc Estimated GFR (MDRD) Non-Af Amer 65 mL/min >60 [facility] Comment on above: Non- GFR Calc RBC Auto (Bld) [#/Vol]Ordere d By: Viviana Mcgee on 07-29-2023 RBC (Bld) [#/Vol] 3.76 10*6/uL 4.2-5.4 [facility] Serum or plasma calcium fiona urement (mass/volume)Ordered By: Viviana Mcgee on 07-29-2023 Calcium [Mass/Vol] 8.8 mg/dL 8.5-10.1 [facility] Serum or plasma creatinine m easurement (mass/volume)Ordered By: Viviana Mcgee on 07-29-2023 Creatinine [Mass/Vol] 0.89 mg/dL 0.55-1.02 [facility] Comment on above: The validity of the calculated GFR & GFRAA in patients over 70 years has not been determined. Clinical correlation is essential. Serum or plasma urea nitroge n measurement (mass/volume)Ordered By: Viviana Mcgee on 07-29-2023 Urea nitrogen [Mass/Vol] 12 mg/dL 7-18 [facility] Thin prep Papanicolaou smear with manual screeningOrdered By: Viviana Mcgee on 07-29-2023 Thin prep Papanicolaou smear with manual screening 3.4 g/dL 3.2-5.0 [facility] Thin prep Papanicolaou smear with manual screening 17 U/L 15-37 [facility] Thin prep Papanicolaou smear with manual screening 4 5-15 [facility] Absolute lymphocyte countOrd ered By: Matilda Doherty on 06-24-2023 Lymphocytes Auto (Unsp spec) [#/Vol] 1.01 10*3/uL 0.83-4.51 [facility] Automated lymphocyte count a s percentage of total leukocytesOrdered By: Matilda Doherty on 06-24-2023 Lymphocytes/100 WBC Auto (Unsp spec) 16.4 % 19-41 [facility] Basophil percentageOrdered B y: Matilda Doherty on 06-24-2023 Basophils/100 WBC (Bld) 0.7 % 0-[address] [facility] Bilirubin [Mass/Vol] 0.40 mg/dL 0.20-1.00 [facility] Comment on above: For patients on eltr ombopag therapy, use of Dimension [place] TBIL is not recommended. Chloride [Moles/Vol] 111 mmol/L 98-107 [facility] Cholesterol [Mass/Vol] 108 mg/dL <200 [facility] Comment on above: <200 mg/dL Desirable 200-240 mg/dL Borderline >240 mg/dL High Risk Eosinophils/100 WBC (Bld) 2.9 % 0-5 [facility] Glucose [Mass/Vol] 142 mg/dL 74-106 [facility] Comment on above: Fasting Glucose resu lt greater than or equal to 126 mg/dL suggests DIABETES MELLITUS per A.D.A. criteria. Hemoglobin (Bld) [Mass/Vol] 11.9 g/dL 12.0-15.0 [facility] Monocytes/100 WBC (Bld) 11.5 % 0-10 [facility] Neutrophils (Bld) [#/Vol] 4.2 10*3/uL 2.0-7.7 [facility] Neutrophils/100 WBC (Bld) 68.3 % 47-70 [facility] Potassium [Moles/Vol] 4.3 mmol/L 3.5-5.1 [facility] Protein [Mass/Vol] 6.8 g/dL 6.4-8.2 [facility] Sodium [Moles/Vol] 140 mmol/L 136-145 [facility] Triglyceride [Mass/Vol] 204 mg/dL <[address] [facility] Comment on above: The drugs N-Acetylcy steine and Metamizole may falsely depress this assay.Serum Triglycerides Reference Interval Normal <150 mg/dL Borderline high 150 - 199 mg/dL High 200 - 499 mg/dL Very High > or = 500 mg/dL WBC (Bld) [#/Vol] 6.2 10*3/uL 4.4-11.0 [facility] Determination of erythrocyte mean corpuscular volume (MCV)Ordered By: Matilda Doherty on 06-24-2023 MCV (RBC) [Entitic vol] 98.9 fL 81-[address] [facility] Erythrocyte distribution wid th ratioOrdered By: Matilda Doherty on 06-24-2023 Erythrocyte distribution width (RBC) [Ratio] 12.8 % 11.6-14.6 [facility] Erythrocyte distribution wid th standard deviationOrdered By: Matilda Doherty on 06-24-2023 Erythrocyte distribution width (RBC) [Entitic vol] 46.1 fL 35.1-43.9 [facility] Hematocrit Auto (Bld) [Volum e fraction]Ordered By: Matilda Doherty on 06-24-2023 Hematocrit (Bld) [Volume fraction] 36.5 % 37-47 [facility] Immature granulocytes/100 WB C Auto (Bld)Ordered By: Matilda Doherty on 06-24-2023 Immature granulocytes/100 WBC (Bld) 0.200 % 0.0-0.9 [facility] Comment on above: IG% - Immature Granu locytes (promyelocytes, myelocytes and metamyelocytes) > 1% indicates that a LEFT SHIFT is Present. Laboratory - Chemistry and C hemistry - challengeOrdered By: Matilda Doherty on 06-24-2023 Albumin/Globulin [Mass ratio] 1.0 {ratio} 0.9-2.4 [facility] ALP [Catalytic activity/Vol] 110 U/L 45-117 [facility] ALT [Catalytic activity/Vol] 16 U/L 13-56 [facility] Cholesterol in HDL [Mass/Vol] 38 mg/dL >40 [facility] Comment on above: The drugs N-Acetylcy steine and Metamizole may falsely depress this assay. Reference Range HDL <40 mg/dL Low HDL Cholesterol HDL >or= 60 mg/dL High HDL Cholesterol Cholesterol in LDL [Mass/Vol] 29 mg/dL 0-130 [facility] CO2 [Moles/Vol] 25.0 mmol/L 21.0-32.0 [facility] Globulin (S) [Mass/Vol] 3.4 g/dL 2.2-4.[address] [facility] Urea nitrogen/Creatinine [Mass ratio] 12.3 mg/mg 10-20 [facility] Laboratory - Hematology and Cell countsOrdered By: Matilda Doherty on 06-24-2023 MCH (RBC) [Entitic mass] 32.2 pg 27.0-32.0 [facility] MCHC (RBC) [Mass/Vol] 32.6 g/dL 32-36 [facility] Nucleated RBC/100 WBC (Bld) [Ratio] 0 % 0-5 [facility] Platelet mean volume (Bld) [Entitic vol] 9.1 fL 6.2-12.0 [facility] Platelets (Bld) [#/Vol] 267 10*3/uL 150-450 [facility] No Panel InformationOrdered By: Matilda Doherty on 06-24-2023 Estimated GFR (MDRD) Amer 72 mL/min >60 [facility] Comment on above: GFR Calc Estimated GFR (MDRD) Non-Af Amer 59 mL/min >60 [facility] Comment on above: Non- GFR Calc VLDL Cholesterol 41 mg/dL 5-40 [facility] RBC Auto (Bld) [#/Vol]Ordere d By: Matilda Doherty on 06-24-2023 RBC (Bld) [#/Vol] 3.69 10*6/uL 4.2-5.4 [facility] Serum or plasma calcium fiona urement (mass/volume)Ordered By: Matilda Doherty on 06-24-2023 Calcium [Mass/Vol] 9.2 mg/dL 8.5-10.1 [facility] Serum or plasma creatinine m easurement (mass/volume)Ordered By: Matilda Doherty on 06-24-2023 Creatinine [Mass/Vol] 0.97 mg/dL 0.55-1.02 [facility] Comment on above: The validity of the calculated GFR & GFRAA in patients over 70 years has not been determined. Clinical correlation is essential. Serum or plasma urea nitroge n measurement (mass/volume)Ordered By: Matilda Doherty on 06-24-2023 Urea nitrogen [Mass/Vol] 12 mg/dL 7-18 [facility] Thin prep Papanicolaou smear with manual screeningOrdered By: Matilda Doherty on 06-24-2023 Thin prep Papanicolaou smear with manual screening 3.4 g/dL 3.2-5.0 [facility] Thin prep Papanicolaou smear with manual screening 11 U/L 15-37 [facility] Thin prep Papanicolaou smear with manual screening 4 5-15 [facility] Whole blood hemoglobin A1c/t otal hemoglobin ratio (mass fraction)Ordered By: Matilda Doherty on 06-24-2023 HbA1c (Bld) [Mass fraction] 7.5 % 3.8-5.6 [facility] Comment on above: Normal < 5.7 % Predi abetic 5.7 - 6.4 % Diabetic >or= 6.5 % Please note range changes. Absolute lymphocyte countOrd ered By: Viviana Mcgee on 05-27-2023 Lymphocytes Auto (Unsp spec) [#/Vol] 1.09 10*3/uL 0.83-4.51 [facility] Automated lymphocyte count a s percentage of total leukocytesOrdered By: Viviana Mcgee on 05-27-2023 Lymphocytes/100 WBC Auto (Unsp spec) 9.6 % 19-41 [facility] Basophil percentageOrdered B y: Viviana Mcgee on 05-27-2023 Basophils/100 WBC (Bld) 0.4 % 0-1 [facility] Bilirubin [Mass/Vol] 0.20 mg/dL 0.20-1.00 [facility] Comment on above: For patients on eltr ombopag therapy, use of Dimension [place] TBIL is not recommended. Chloride [Moles/Vol] 114 mmol/L 98-107 [facility] Eosinophils/100 WBC (Bld) 0.7 % 0-5 [facility] Glucose [Mass/Vol] 224 mg/dL 74-106 [facility] Comment on above: Glucose result great er than or equal to 200 mg/dLsuggests DIABETES MELLITUS per A.D.A. criteria. Hemoglobin (Bld) [Mass/Vol] 12.5 g/dL 12.0-15.0 [facility] Monocytes/100 WBC (Bld) 9.0 % 0-[address] [facility] Neutrophils (Bld) [#/Vol] 9.1 10*3/uL 2.0-7.7 [facility] Neutrophils/100 WBC (Bld) 80.0 % 47-70 [facility] Potassium [Moles/Vol] 4.6 mmol/L 3.5-5.1 [facility] Protein [Mass/Vol] 7.9 g/dL 6.4-8.2 [facility] Sodium [Moles/Vol] 137 mmol/L 136-145 [facility] WBC (Bld) [#/Vol] 11.3 10*3/uL 4.4-11.0 [facility] Determination of erythrocyte mean corpuscular volume (MCV)Ordered By: Viviana Mcgee on 05-27-2023 MCV (RBC) [Entitic vol] 101.0 fL 81-[address] [facility] Erythrocyte distribution wid th ratioOrdered By: Reynaldoshullsburgpapa Mcgee on 05-27-2023 Erythrocyte distribution width (RBC) [Ratio] 13.0 % 11.6-14.6 [facility] Erythrocyte distribution wid th standard deviationOrdered By: [facility] Watsonji on 05-27-2023 Erythrocyte distribution width (RBC) [Entitic vol] 48.2 fL 35.1-43.9 [facility] Hematocrit Auto (Bld) [Volum e fraction]Ordered By: Viviana Mcgee on 05-27-2023 Hematocrit (Bld) [Volume fraction] 39.5 % 37-47 [facility] Immature granulocytes/100 WB C Auto (Bld)Ordered By: Viviana Mcgee on 05-27-2023 Immature granulocytes/100 WBC (Bld) 0.300 % 0.0-0.9 [facility] Comment on above: IG% - Immature Granu locytes (promyelocytes, myelocytes and metamyelocytes) > 1% indicates that a LEFT SHIFT is Present. Laboratory - Chemistry and C hemistry - challengeOrdered By: Viviana Mcgee on 05-27-2023 Albumin/Globulin [Mass ratio] 0.9 {ratio} 0.9-2.4 [facility] ALP [Catalytic activity/Vol] 117 U/L 45-117 [facility] ALT [Catalytic activity/Vol] 21 U/L 13-56 [facility] CO2 [Moles/Vol] 19.0 mmol/L 21.0-32.0 [facility] Globulin (S) [Mass/Vol] 4.1 g/dL 2.2-4.[address] [facility] Urea nitrogen/Creatinine [Mass ratio] 18.8 mg/mg 10-20 [facility] Laboratory - Hematology and Cell countsOrdered By: Viviana Mcgee on 05-27-2023 MCH (RBC) [Entitic mass] 32.0 pg 27.0-32.0 [facility] MCHC (RBC) [Mass/Vol] 31.6 g/dL 32-36 [facility] Nucleated RBC/100 WBC (Bld) [Ratio] 0 % 0-5 [facility] Platelets (Bld) [#/Vol] 301 10*3/uL 150-450 [facility] No Panel InformationOrdered By: Viviana Mcgee on 05-27-2023 Estimated GFR (MDRD) Amer 61 mL/min >60 [facility] Comment on above: GFR Calc Estimated GFR (MDRD) Non-Af Amer 50 mL/min >60 [facility] Comment on above: Non- GFR Calc Platelet mean volume Bj-Ec ker (Bld) [Entitic vol]Ordered By: Viviana Mcgee on 05-27-2023 Platelet mean volume (Bld) [Entitic vol] 9.3 fL 6.2-12.0 [facility] RBC Auto (Bld) [#/Vol]Ordere d By: Viviana Mcgee on 05-27-2023 RBC (Bld) [#/Vol] 3.91 10*6/uL 4.2-5.4 [facility] Serum or plasma calcium fiona urement (mass/volume)Ordered By: Viviana Mcgee on 05-27-2023 Calcium [Mass/Vol] 9.0 mg/dL 8.5-10.1 [facility] Serum or plasma creatinine m easurement (mass/volume)Ordered By: Viviana Mcgee on 05-27-2023 Creatinine [Mass/Vol] 1.12 mg/dL 0.55-1.02 [facility] Comment on above: The validity of the calculated GFR & GFRAA in patients over 70 years has not been determined. Clinical correlation is essential. Serum or plasma urea nitroge n measurement (mass/volume)Ordered By: levy Mcgee on 05-27-2023 Urea nitrogen [Mass/Vol] 21 mg/dL 7-18 [facility] Thin prep Papanicolaou smear with manual screeningOrdered By: [facility] Walter[facility]ji on 05-27-2023 Thin prep Papanicolaou smear with manual screening 3.8 g/dL 3.2-5.0 [facility] Thin prep Papanicolaou smear with manual screening 14 U/L 15-37 [facility] Thin prep Papanicolaou smear with manual screening 4 5-15 [facility] Absolute lymphocyte countOrd ered By: levy Waltertamica on 04-29-2023 Lymphocytes Auto (Unsp spec) [#/Vol] 1.47 10*3/uL 0.83-4.51 [facility] Basophil percentageOrdered B y: Viviana Waltertamica on 04-29-2023 Basophils/100 WBC (Bld) 1.3 % 0-1 [facility] Bilirubin [Mass/Vol] 0.30 mg/dL 0.20-1.00 [facility] Comment on above: For patients on eltr ombopag therapy, use of Dimension [place] TBIL is not recommended. Chloride [Moles/Vol] 109 mmol/L 98-107 [facility] Eosinophils/100 WBC (Bld) 3.0 % 0-5 [facility] Glucose [Mass/Vol] 144 mg/dL 74-106 [facility] Comment on above: Fasting Glucose resu lt greater than or equal to 126 mg/dL suggests DIABETES MELLITUS per A.D.A. criteria. Neutrophils (Bld) [#/Vol] 3.4 10*3/uL 2.0-7.7 [facility] Neutrophils/100 WBC (Bld) 60.2 % 47-70 [facility] Potassium [Moles/Vol] 4.1 mmol/L 3.5-5.1 [facility] Protein [Mass/Vol] 7.5 g/dL 6.4-8.2 [facility] Sodium [Moles/Vol] 139 mmol/L 136-145 [facility] WBC (Bld) [#/Vol] 5.6 10*3/uL 4.4-11.0 [facility] Blood erythrocytes count (nu mber/volume)Ordered By: Viviana Mcgee on 04-29-2023 RBC (Bld) [#/Vol] 3.98 10*6/uL 4.2-5.4 [facility] Blood hemoglobin measurement (mass/volume)Ordered By: Viviana Mcgee on 04-29-2023 Hemoglobin (Bld) [Mass/Vol] 12.6 g/dL 12.0-15.0 [facility] Blood lymphocytes/100 leukoc ytesOrdered By: Reynald[facility]ullsburgpapa Mcgee on 04-29-2023 Lymphocytes/100 WBC (Bld) 26.3 % 19-41 [facility] Blood monocytes/100 leukocyt esOrdered By: Viviana Mcgee on 04-29-2023 Monocytes/100 WBC (Bld) 8.8 % 0-10 [facility] Blood platelet mean volumeOr dered By: Viviana Mcgee on 04-29-2023 Platelet mean volume (Bld) [Entitic vol] 9.3 fL 6.2-12.0 [facility] Determination of erythrocyte mean corpuscular volume (MCV)Ordered By: Viviana Mcgee on 04-29-2023 MCV (RBC) [Entitic vol] 98.7 fL 81-99 [facility] Hematocrit Auto (Bld) [Volum e fraction]Ordered By: Viviana Mcgee on 04-29-2023 Hematocrit (Bld) [Volume fraction] 39.3 % 37-47 [facility] Laboratory - Chemistry and C hemistry - challengeOrdered By: Viviana Mcgee on 04-29-2023 ALP [Catalytic activity/Vol] 102 U/L 45-117 [facility] ALT [Catalytic activity/Vol] 14 U/L 13-56 [facility] CO2 [Moles/Vol] 25.0 mmol/L 21.0-32.0 [facility] Globulin (S) [Mass/Vol] 3.9 g/dL 2.2-4.[address] [facility] Urea nitrogen/Creatinine [Mass ratio] 16.7 mg/mg 10-20 [facility] Laboratory - Hematology and Cell countsOrdered By: Viviana Mcgee on 04-29-2023 Erythrocyte distribution width (RBC) [Entitic vol] 46.8 fL 35.1-43.9 [facility] Erythrocyte distribution width (RBC) [Ratio] 12.9 % 11.6-14.6 [facility] Immature granulocytes/100 WBC (Bld) 0.400 % 0.0-0.9 [facility] Comment on above: IG% - Immature Granu locytes (promyelocytes, myelocytes and metamyelocytes) > 1% indicates that a LEFT SHIFT is Present. MCH (RBC) [Entitic mass] 31.7 pg 27.0-32.0 [facility] Nucleated RBC/100 WBC (Bld) [Ratio] 0 % 0-5 [facility] MCHC Auto (RBC) [Mass/Vol]Or dered By: Viviana Mcgee on 04-29-2023 MCHC (RBC) [Mass/Vol] 32.1 g/dL 32-36 [facility] No Panel InformationOrdered By: Viviana Mcgee on 04-29-2023 Estimated GFR (MDRD) Amer 73 mL/min >60 [facility] Comment on above: GFR Calc Estimated GFR (MDRD) Non-Af Amer 60 mL/min >60 [facility] Comment on above: Non- GFR Calc Vitamin D 25-Hydroxy 13.0 ng/mL [facility] Comment on above: Vitamin D 25(OH) Sta tus Range Deficiency <20 ng/mL (50nmol/L) Insufficiency 20 - 30 ng/mL (50 - 75 nmol/L) Sufficiency 30 - 100 ng/mL (75 - 250 nmol/L) Toxicity >100 ng/mL (>250 nmol/L) Platelets bldOrdered By: Reza Mcgee on 04-29-2023 Platelets (Bld) [#/Vol] 289 10*3/uL 150-450 [facility] Serum or plasma albumin fiona urement (mass/volume)Ordered By: Viviana Mcgee on 04-29-2023 Albumin [Mass/Vol] 3.6 g/dL 3.2-5.0 [facility] Serum or plasma albumin/glob ulin mass ratioOrdered By: Viviana Mcgee on 04-29-2023 Albumin/Globulin [Mass ratio] 0.9 {ratio} 0.9-2.4 [facility] Serum or plasma calcium fiona urement (mass/volume)Ordered By: lawsonshullsburgpapa Mcgee on 04-29-2023 Calcium [Mass/Vol] 9.0 mg/dL 8.5-10.1 [facility] Serum or plasma creatinine m easurement (mass/volume)Ordered By: lawsonshullsburgpapa Mcgee on 04-29-2023 Creatinine [Mass/Vol] 0.96 mg/dL 0.55-1.02 [facility] Comment on above: The validity of the calculated GFR & GFRAA in patients over 70 years has not been determined. Clinical correlation is essential. Serum or plasma urea nitroge n measurement (mass/volume)Ordered By: Viviana Mcgee on 04-29-2023 Urea nitrogen [Mass/Vol] 16 mg/dL 7-18 [facility] Thin prep Papanicolaou smear with manual screeningOrdered By: lawsonshullsburgpapa Mcgee on 04-29-2023 Thin prep Papanicolaou smear with manual screening 10 U/L 15-37 [facility] Thin prep Papanicolaou smear with manual screening 5 5-15 [facility] Absolute lymphocyte countOrd ered By: Viviana Mcgee on 03-25-2023 Lymphocytes Auto (Unsp spec) [#/Vol] 1.53 10*3/uL 0.83-4.51 [facility] Basophil percentageOrdered B y: Viviana Mcgee on 03-25-2023 Basophils/100 WBC (Bld) 0.8 % 0-[address] [facility] Bilirubin [Mass/Vol] 0.20 mg/dL 0.20-1.00 [facility] Comment on above: For patients on eltr ombopag therapy, use of Dimension [place] TBIL is not recommended. Chloride [Moles/Vol] 107 mmol/L 98-107 [facility] Eosinophils/100 WBC (Bld) 2.3 % 0-5 [facility] Glucose [Mass/Vol] 189 mg/dL 74-106 [facility] Comment on above: Fasting Glucose resu lt greater than or equal to 126 mg/dL suggests DIABETES MELLITUS per A.D.A. criteria. Neutrophils (Bld) [#/Vol] 4.9 10*3/uL 2.0-7.7 [facility] Neutrophils/100 WBC (Bld) 66.1 % 47-70 [facility] Potassium [Moles/Vol] 4.4 mmol/L 3.5-5.1 [facility] Protein [Mass/Vol] 7.8 g/dL 6.4-8.2 [facility] Sodium [Moles/Vol] 135 mmol/L 136-145 [facility] WBC (Bld) [#/Vol] 7.4 10*3/uL 4.4-11.0 [facility] Blood erythrocytes count (nu mber/volume)Ordered By: Viviana Mcgee on 03-25-2023 RBC (Bld) [#/Vol] 3.98 10*6/uL 4.2-5.4 [facility] Blood hemoglobin measurement (mass/volume)Ordered By: Viviana Mcgee on 03-25-2023 Hemoglobin (Bld) [Mass/Vol] 12.6 g/dL 12.0-15.0 [facility] Blood lymphocytes/100 leukoc ytesOrdered By: Viviana Mcgee on 03-25-2023 Lymphocytes/100 WBC (Bld) 20.6 % 19-41 [facility] Blood monocytes/100 leukocyt esOrdered By: Viviana Mcgee on 03-25-2023 Monocytes/100 WBC (Bld) 9.7 % 0-10 [facility] Blood platelet mean volumeOr dered By: Viviana Mcgee on 03-25-2023 Platelet mean volume (Bld) [Entitic vol] 9.1 fL 6.2-12.0 [facility] Determination of erythrocyte mean corpuscular volume (MCV)Ordered By: Viviana Mcgee on 03-25-2023 MCV (RBC) [Entitic vol] 97.5 fL 81-[address] [facility] Hematocrit Auto (Bld) [Volum e fraction]Ordered By: Viviana Mcgee on 03-25-2023 Hematocrit (Bld) [Volume fraction] 38.8 % 37-47 [facility] Laboratory - Chemistry and C hemistry - challengeOrdered By: lawsonshullsburgpapa Mcgee on 03-25-2023 ALP [Catalytic activity/Vol] 109 U/L 45-117 [facility] ALT [Catalytic activity/Vol] 16 U/L 13-56 [facility] CO2 [Moles/Vol] 23.0 mmol/L 21.0-32.0 [facility] Globulin (S) [Mass/Vol] 4.1 g/dL 2.2-4.[address] [facility] Urea nitrogen/Creatinine [Mass ratio] 19.6 mg/mg 10-20 [facility] - Hematology and Cell countsOrdered By: Viviana Mcgee on 03-25-2023 Erythrocyte distribution width (RBC) [Entitic vol] 44.2 fL 35.1-43.9 [facility] Erythrocyte distribution width (RBC) [Ratio] 12.2 % 11.6-14.6 [facility] Immature granulocytes/100 WBC (Bld) 0.500 % 0.0-0.9 [facility] Comment on above: IG% - Immature Granu locytes (promyelocytes, myelocytes and metamyelocytes) > 1% indicates that a LEFT SHIFT is Present. MCH (RBC) [Entitic mass] 31.7 pg 27.0-32.0 [facility] Nucleated RBC/100 WBC (Bld) [Ratio] 0 % 0-5 [facility] MCHC Auto (RBC) [Mass/Vol]Or dered By: Viviana Mcgee on 03-25-2023 MCHC (RBC) [Mass/Vol] 32.5 g/dL 32-36 [facility] No Panel InformationOrdered By: Viviana Mcgee on 03-25-2023 Estimated GFR (MDRD) Amer 68 mL/min >60 [facility] Comment on above: GFR Calc Estimated GFR (MDRD) Non-Af Amer 56 mL/min >60 [facility] Comment on above: Non- GFR Calc Platelets bldOrdered By: Reza shyann Everardo on 03-25-2023 Platelets (Bld) [#/Vol] 337 10*3/uL 150-450 [facility] Serum or plasma albumin fiona urement (mass/volume)Ordered By: Viviana Mcgee on 03-25-2023 Albumin [Mass/Vol] 3.7 g/dL 3.2-5.0 [facility] Serum or plasma albumin/glob ulin mass ratioOrdered By: Viviana Mcgee on 03-25-2023 Albumin/Globulin [Mass ratio] 0.9 {ratio} 0.9-2.4 [facility] Serum or plasma calcium fiona urement (mass/volume)Ordered By: Viviana Mcgee on 03-25-2023 Calcium [Mass/Vol] 9.1 mg/dL 8.5-10.1 [facility] Serum or plasma creatinine m easurement (mass/volume)Ordered By: Viviana Mcgee on 03-25-2023 Creatinine [Mass/Vol] 1.02 mg/dL 0.55-1.02 [facility] Comment on above: The validity of the calculated GFR & GFRAA in patients over 70 years has not been determined. Clinical correlation is essential. Serum or plasma urea nitroge n measurement (mass/volume)Ordered By: Viviana Mcgee on 03-25-2023 Urea nitrogen [Mass/Vol] 20 mg/dL 7-18 [facility] Thin prep Papanicolaou smear with manual screeningOrdered By: Viviana Mcgee on 03-25-2023 Thin prep Papanicolaou smear with manual screening 10 U/L 15-37 [facility] Thin prep Papanicolaou smear with manual screening 5 5-15 [facility] Absolute lymphocyte countOrd ered By: Juan Carlos Living on 02-25-2023 Lymphocytes Auto (Unsp spec) [#/Vol] 1.49 10*3/uL 0.83-4.51 [facility] Basophil percentageOrdered B y: Juan Carlos Living on 02-25-2023 Basophils/100 WBC (Bld) 1.0 % 0-1 [facility] Bilirubin [Mass/Vol] 0.30 mg/dL 0.20-1.00 [facility] Comment on above: For patients on eltr ombopag therapy, use of Dimension [place] TBIL is not recommended. Chloride [Moles/Vol] 109 mmol/L 98-107 [facility] Eosinophils/100 WBC (Bld) 3.1 % 0-5 [facility] Glucose [Mass/Vol] 165 mg/dL 74-106 [facility] Comment on above: Fasting Glucose resu lt greater than or equal to 126 mg/dL suggests DIABETES MELLITUS per A.D.A. criteria. Neutrophils (Bld) [#/Vol] 2.8 10*3/uL 2.0-7.7 [facility] Neutrophils/100 WBC (Bld) 54.5 % 47-70 [facility] Potassium [Moles/Vol] 4.2 mmol/L 3.5-5.1 [facility] Protein [Mass/Vol] 6.9 g/dL 6.4-8.2 [facility] Sodium [Moles/Vol] 139 mmol/L 136-145 [facility] WBC (Bld) [#/Vol] 5.1 10*3/uL 4.4-11.0 [facility] Blood erythrocytes count (nu mber/volume)Ordered By: [facility] on 02-25-2023 RBC (Bld) [#/Vol] 3.70 10*6/uL 4.2-5.4 [facility] Blood hemoglobin measurement (mass/volume)Ordered By: [facility] on 02-25-2023 Hemoglobin (Bld) [Mass/Vol] 12.1 g/dL 12.0-15.0 [facility] Blood lymphocytes/100 leukoc ytesOrdered By: [place] [facility] on 02-25-2023 Lymphocytes/100 WBC (Bld) 29.2 % 19-41 [facility] Blood monocytes/100 leukocyt esOrdered By: [place] [facility] on 02-25-2023 Monocytes/100 WBC (Bld) 11.8 % 0-10 [facility] Blood platelet mean volumeOr dered By: [place] [facility] on 02-25-2023 Platelet mean volume (Bld) [Entitic vol] 9.3 fL 6.2-12.0 [facility] Determination of erythrocyte mean corpuscular volume (MCV)Ordered By: [place] [facility] on 02-25-2023 MCV (RBC) [Entitic vol] 97.8 fL 81-[address] [facility] Hematocrit Auto (Bld) [Volum e fraction]Ordered By: [place] [facility] on 02-25-2023 Hematocrit (Bld) [Volume fraction] 36.2 % 37-47 [facility] Laboratory - Chemistry and C hemistry - challengeOrdered By: [place] [facility] on 02-25-2023 ALP [Catalytic activity/Vol] 102 U/L 45-117 [facility] ALT [Catalytic activity/Vol] 15 U/L 13-56 [facility] CO2 [Moles/Vol] 26.0 mmol/L 21.0-32.0 [facility] Globulin (S) [Mass/Vol] 3.8 g/dL 2.2-4.[address] [facility] Urea nitrogen/Creatinine [Mass ratio] 14.4 mg/mg 10-20 [facility] Laboratory - Hematology and Cell countsOrdered By: [facility] on 02-25-2023 Erythrocyte distribution width (RBC) [Entitic vol] 45.0 fL 35.1-43.9 [facility] Erythrocyte distribution width (RBC) [Ratio] 12.5 % 11.6-14.6 [facility] Immature granulocytes/100 WBC (Bld) 0.400 % 0.0-0.9 [facility] Comment on above: IG% - Immature Granu locytes (promyelocytes, myelocytes and metamyelocytes) > 1% indicates that a LEFT SHIFT is Present. MCH (RBC) [Entitic mass] 32.7 pg 27.0-32.0 [facility] Nucleated RBC/100 WBC (Bld) [Ratio] 0 % 0-5 [facility] MCHC Auto (RBC) [Mass/Vol]Or dered By: [place] [facility] on 02-25-2023 MCHC (RBC) [Mass/Vol] 33.4 g/dL 32-36 [facility] No Panel InformationOrdered By: [place] [facility] on 02-25-2023 Estimated GFR (MDRD) Amer 78 mL/min >60 [facility] Comment on above: GFR Calc Estimated GFR (MDRD) Non-Af Amer 64 mL/min >60 [facility] Comment on above: Non- GFR Calc Platelets bldOrdered By: Damian ribera Living on 02-25-2023 Platelets (Bld) [#/Vol] 281 10*3/uL 150-450 [facility] Serum or plasma albumin fiona urement (mass/volume)Ordered By: [facility] on 02-25-2023 Albumin [Mass/Vol] 3.1 g/dL 3.2-5.0 [facility] Serum or plasma albumin/glob ulin mass ratioOrdered By: [facility] on 02-25-2023 Albumin/Globulin [Mass ratio] 0.8 {ratio} 0.9-2.4 [facility] Serum or plasma calcium fiona urement (mass/volume)Ordered By: [facility] on 02-25-2023 Calcium [Mass/Vol] 8.4 mg/dL 8.5-10.1 [facility] Serum or plasma creatinine m easurement (mass/volume)Ordered By: [facility] on 02-25-2023 Creatinine [Mass/Vol] 0.90 mg/dL 0.55-1.02 [facility] Comment on above: The validity of the calculated GFR & GFRAA in patients over 70 years has not been determined. Clinical correlation is essential. Serum or plasma urea nitroge n measurement (mass/volume)Ordered By: [facility] on 02-25-2023 Urea nitrogen [Mass/Vol] 13 mg/dL 7-18 [facility] Thin prep Papanicolaou smear with manual screeningOrdered By: [facility] on 02-25-2023 Thin prep Papanicolaou smear with manual screening 9 U/L 15-37 [facility] Thin prep Papanicolaou smear with manual screening 4 5-15 [facility] Absolute lymphocyte countOrd ered By: Viviana Mcgee on 01-28-2023 Lymphocytes Auto (Unsp spec) [#/Vol] 1.28 10*3/uL 0.83-4.51 [facility] Basophil percentageOrdered B y: Viviana Mcgee on 01-28-2023 Basophils/100 WBC (Bld) 0.9 % 0-[address] [facility] Bilirubin [Mass/Vol] 0.30 mg/dL 0.20-1.00 [facility] Comment on above: For patients on eltr ombopag therapy, use of Dimension [place] TBIL is not recommended. Chloride [Moles/Vol] 109 mmol/L 98-107 [facility] Eosinophils/100 WBC (Bld) 2.4 % 0-5 [facility] Glucose [Mass/Vol] 152 mg/dL 74-106 [facility] Comment on above: Fasting Glucose resu lt greater than or equal to 126 mg/dL suggests DIABETES MELLITUS per A.D.A. criteria. Neutrophils (Bld) [#/Vol] 3.5 10*3/uL 2.0-7.7 [facility] Neutrophils/100 WBC (Bld) 62.7 % 47-70 [facility] Potassium [Moles/Vol] 4.1 mmol/L 3.5-5.1 [facility] Protein [Mass/Vol] 7.2 g/dL 6.4-8.2 [facility] Sodium [Moles/Vol] 139 mmol/L 136-145 [facility] WBC (Bld) [#/Vol] 5.5 10*3/uL 4.4-11.0 [facility] Blood erythrocytes count (nu mber/volume)Ordered By: Viviana Mcgee on 01-28-2023 RBC (Bld) [#/Vol] 3.75 10*6/uL 4.2-5.4 [facility] Blood hemoglobin measurement (mass/volume)Ordered By: Viviana Mcgee on 01-28-2023 Hemoglobin (Bld) [Mass/Vol] 12.1 g/dL 12.0-15.0 [facility] Blood lymphocytes/100 leukoc ytesOrdered By: Viviana Mcgee on 01-28-2023 Lymphocytes/100 WBC (Bld) 23.2 % 19-41 [facility] Blood monocytes/100 leukocyt esOrdered By: Viviana Mcgee on 01-28-2023 Monocytes/100 WBC (Bld) 10.3 % 0-10 [facility] Blood platelet mean volumeOr dered By: Viviana Mcgee on 01-28-2023 Platelet mean volume (Bld) [Entitic vol] 9.3 fL 6.2-12.0 [facility] Determination of erythrocyte mean corpuscular volume (MCV)Ordered By: Viviana Mcgee on 01-28-2023 MCV (RBC) [Entitic vol] 100.5 fL 81-[address] [facility] Hematocrit Auto (Bld) [Volum e fraction]Ordered By: [facility] on 01-28-2023 Hematocrit (Bld) [Volume fraction] 37.7 % 37-47 [facility] Laboratory - Chemistry and C hemistry - challengeOrdered By: [facility] [address] [facility] 01-28-2023 ALP [Catalytic activity/Vol] 107 U/L 45-117 [facility] ALT [Catalytic activity/Vol] 17 U/L 13-56 [facility] CO2 [Moles/Vol] 26.0 mmol/L 21.0-32.0 [facility] Globulin (S) [Mass/Vol] 3.8 g/dL 2.2-4.[address] [facility] Urea nitrogen/Creatinine [Mass ratio] 13.7 mg/mg 10-20 [facility] - Hematology and Cell countsOrdered By: [facility] Watson[facility] on 01-28-2023 Erythrocyte distribution width (RBC) [Entitic vol] 45.0 fL 35.1-43.9 [facility] Erythrocyte distribution width (RBC) [Ratio] 12.2 % 11.6-14.6 [facility] Immature granulocytes/100 WBC (Bld) 0.500 % 0.0-0.9 [facility] Comment on above: IG% - Immature Granu locytes (promyelocytes, myelocytes and metamyelocytes) > 1% indicates that a LEFT SHIFT is Present. MCH (RBC) [Entitic mass] 32.3 pg 27.0-32.0 [facility] Nucleated RBC/100 WBC (Bld) [Ratio] 0 % 0-5 [facility] MCHC Auto (RBC) [Mass/Vol]Or dered By: [facility] on 01-28-2023 MCHC (RBC) [Mass/Vol] 32.1 g/dL 32-36 [facility] No Panel InformationOrdered By: Viviana Mcgee on 01-28-2023 Estimated GFR (MDRD) Amer 74 mL/min >60 [facility] Comment on above: GFR Calc Estimated GFR (MDRD) Non-Af Amer 61 mL/min >60 [facility] Comment on above: Non- GFR Calc Platelets bldOrdered By: Reza Mcgee on 01-28-2023 Platelets (Bld) [#/Vol] 292 10*3/uL 150-450 [facility] Serum or plasma albumin fiona urement (mass/volume)Ordered By: Viviana Mcgee on 01-28-2023 Albumin [Mass/Vol] 3.4 g/dL 3.2-5.0 [facility] Serum or plasma albumin/glob ulin mass ratioOrdered By: Viviana Mcgee on 01-28-2023 Albumin/Globulin [Mass ratio] 0.9 {ratio} 0.9-2.4 [facility] Serum or plasma calcium fiona urement (mass/volume)Ordered By: Viviana Mcgee on 01-28-2023 Calcium [Mass/Vol] 9.0 mg/dL 8.5-10.1 [facility] Serum or plasma creatinine m easurement (mass/volume)Ordered By: Viviana Mcgee on 01-28-2023 Creatinine [Mass/Vol] 0.95 mg/dL 0.55-1.02 [facility] Comment on above: The validity of the calculated GFR & GFRAA in patients over 70 years has not been determined. Clinical correlation is essential. Serum or plasma urea nitroge n measurement (mass/volume)Ordered By: Viviana Mcgee on 01-28-2023 Urea nitrogen [Mass/Vol] 13 mg/dL 7-18 [facility] Thin prep Papanicolaou smear with manual screeningOrdered By: Viviana Mcgee on 01-28-2023 Thin prep Papanicolaou smear with manual screening 10 U/L 15-37 [facility] Thin prep Papanicolaou smear with manual screening 4 5-15 [facility] No Panel InformationOrdered By: Zachary Cruz on 01-26-2023 Estimated GFR (MDRD) Amer 59 mL/min >60 [facility] Comment on above: GFR Calc Estimated GFR (MDRD) Non-Af Amer 48 mL/min >60 [facility] Comment on above: Non- GFR Calc Serum or plasma creatinine m easurement (mass/volume)Ordered By: Zachary Cruz on 01-26-2023 Creatinine [Mass/Vol] 1.16 mg/dL 0.55-1.02 [facility] Comment on above: The validity of the calculated GFR & GFRAA in patients over 70 years has not been determined. Clinical correlation is essential. Absolute lymphocyte countOrd ered By: Alex Weir on 12-24-2022 Lymphocytes Auto (Unsp spec) [#/Vol] 1.57 10*3/uL 0.83-4.51 [facility] Basophil percentageOrdered B y: Alex Weir on 12-24-2022 Basophils/100 WBC (Bld) 1.0 % 0-[address] [facility] Bilirubin [Mass/Vol] 0.30 mg/dL 0.20-1.00 [facility] Comment on above: For patients on eltr ombopag therapy, use of Dimension [place] TBIL is not recommended. Chloride [Moles/Vol] 108 mmol/L 98-107 [facility] Eosinophils/100 WBC (Bld) 2.7 % 0-5 [facility] Glucose [Mass/Vol] 133 mg/dL 74-106 [facility] Comment on above: Fasting Glucose resu lt greater than or equal to 126 mg/dL suggests DIABETES MELLITUS per A.D.A. criteria. Neutrophils (Bld) [#/Vol] 3.9 10*3/uL 2.0-7.7 [facility] Neutrophils/100 WBC (Bld) 61.5 % 47-70 [facility] Potassium [Moles/Vol] 4.1 mmol/L 3.5-5.1 [facility] Protein [Mass/Vol] 7.6 g/dL 6.4-8.2 [facility] Sodium [Moles/Vol] 140 mmol/L 136-145 [facility] WBC (Bld) [#/Vol] 6.3 10*3/uL 4.4-11.0 [facility] Blood erythrocytes count (nu mber/volume)Ordered By: Alex Weir on 12-24-2022 RBC (Bld) [#/Vol] 3.99 10*6/uL 4.2-5.4 [facility] Blood hemoglobin measurement (mass/volume)Ordered By: Alex Weir on 12-24-2022 Hemoglobin (Bld) [Mass/Vol] 12.8 g/dL 12.0-15.0 [facility] Blood lymphocytes/100 leukoc ytesOrdered By: Alex Weir on 12-24-2022 Lymphocytes/100 WBC (Bld) 25.1 % 19-41 [facility] Blood monocytes/100 leukocyt esOrdered By: Alex Weir on 12-24-2022 Monocytes/100 WBC (Bld) 9.4 % 0-[address] [facility] Blood platelet mean volumeOr dered By: Alex Weir on 12-24-2022 Platelet mean volume (Bld) [Entitic vol] 9.4 fL 6.2-12.0 [facility] Determination of erythrocyte mean corpuscular volume (MCV)Ordered By: Alex Weir on 12-24-2022 MCV (RBC) [Entitic vol] 101.0 fL 81-[address] [facility] Hematocrit Auto (Bld) [Volum e fraction]Ordered By: Alex Weir on 12-24-2022 Hematocrit (Bld) [Volume fraction] 40.3 % 37-47 [facility] - Chemistry and C hemistry - challengeOrdered By: Alex Weir on 12-24-2022 ALP [Catalytic activity/Vol] 108 U/L 45-117 [facility] ALT [Catalytic activity/Vol] 16 U/L 13-56 [facility] CO2 [Moles/Vol] 27.0 mmol/L 21.0-32.0 [facility] Globulin (S) [Mass/Vol] 3.8 g/dL 2.2-4.[address] [facility] Urea nitrogen/Creatinine [Mass ratio] 16.5 mg/mg 10-20 [facility] Laboratory - Hematology and Cell countsOrdered By: Alex Weir on 12-24-2022 Erythrocyte distribution width (RBC) [Entitic vol] 46.8 fL 35.1-43.9 [facility] Erythrocyte distribution width (RBC) [Ratio] 12.6 % 11.6-14.6 [facility] Immature granulocytes/100 WBC (Bld) 0.300 % 0.0-0.9 [facility] Comment on above: IG% - Immature Granu locytes (promyelocytes, myelocytes and metamyelocytes) > 1% indicates that a LEFT SHIFT is Present. MCH (RBC) [Entitic mass] 32.1 pg 27.0-32.0 [facility] Nucleated RBC/100 WBC (Bld) [Ratio] 0 % 0-5 [facility] MCHC Auto (RBC) [Mass/Vol]Or dered By: Alex Weir on 12-24-2022 MCHC (RBC) [Mass/Vol] 31.8 g/dL 32-36 [facility] No Panel InformationOrdered By: Alex Weir on 12-24-2022 Estimated GFR (MDRD) Amer 78 mL/min >60 [facility] Comment on above: GFR Calc Estimated GFR (MDRD) Non-Af Amer 64 mL/min >60 [facility] Comment on above: Non- GFR Calc Platelets bldOrdered By: Kunal Weir on 12-24-2022 Platelets (Bld) [#/Vol] 308 10*3/uL 150-450 [facility] Serum or plasma albumin fiona urement (mass/volume)Ordered By: Alex Weir on 12-24-2022 Albumin [Mass/Vol] 3.8 g/dL 3.2-5.0 [facility] Serum or plasma albumin/glob ulin mass ratioOrdered By: Alex Weir on 12-24-2022 Albumin/Globulin [Mass ratio] 1.0 {ratio} 0.9-2.4 [facility] Serum or plasma calcium fiona urement (mass/volume)Ordered By: Alex Weir on 12-24-2022 Calcium [Mass/Vol] 9.0 mg/dL 8.5-10.1 [facility] Serum or plasma creatinine m easurement (mass/volume)Ordered By: Alex Weir on 12-24-2022 Creatinine [Mass/Vol] 0.91 mg/dL 0.55-1.02 [facility] Comment on above: The validity of the calculated GFR & GFRAA in patients over 70 years has not been determined. Clinical correlation is essential. Serum or plasma urea nitroge n measurement (mass/volume)Ordered By: Alex Weir on 12-24-2022 Urea nitrogen [Mass/Vol] 15 mg/dL 7-18 [facility] Thin prep Papanicolaou smear with manual screeningOrdered By: Alex Weir on 12-24-2022 Thin prep Papanicolaou smear with manual screening 11 U/L 15-37 [facility] Thin prep Papanicolaou smear with manual screening 5 5-15 [facility] Absolute lymphocyte countOrd ered By: Alex Weir on 11-26-2022 Lymphocytes Auto (Unsp spec) [#/Vol] 1.32 10*3/uL 0.83-4.51 [facility] Basophil percentageOrdered B y: Alex Weir on 11-26-2022 Basophils/100 WBC (Bld) 1.6 % 0-1 [facility] Bilirubin [Mass/Vol] 0.30 mg/dL 0.20-1.00 [facility] Comment on above: For patients on eltr ombopag therapy, use of Dimension [place] TBIL is not recommended. Chloride [Moles/Vol] 109 mmol/L 98-107 [facility] Eosinophils/100 WBC (Bld) 4.9 % 0-5 [facility] Glucose [Mass/Vol] 132 mg/dL 74-106 [facility] Comment on above: Fasting Glucose resu lt greater than or equal to 126 mg/dL suggests DIABETES MELLITUS per A.D.A. criteria. Neutrophils (Bld) [#/Vol] 2.7 10*3/uL 2.0-7.7 [facility] Neutrophils/100 WBC (Bld) 55.1 % 47-70 [facility] Potassium [Moles/Vol] 4.1 mmol/L 3.5-5.1 [facility] Protein [Mass/Vol] 6.9 g/dL 6.4-8.2 [facility] Sodium [Moles/Vol] 139 mmol/L 136-145 [facility] WBC (Bld) [#/Vol] 4.9 10*3/uL 4.4-11.0 [facility] Blood erythrocytes count (nu mber/volume)Ordered By: Alex Weir on 11-26-2022 RBC (Bld) [#/Vol] 3.71 10*6/uL 4.2-5.4 [facility] Blood hemoglobin measurement (mass/volume)Ordered By: Alex Weir on 11-26-2022 Hemoglobin (Bld) [Mass/Vol] 12.1 g/dL 12.0-15.0 [facility] Blood lymphocytes/100 leukoc ytesOrdered By: Alex Weir on 11-26-2022 Lymphocytes/100 WBC (Bld) 27.1 % 19-41 [facility] Blood monocytes/100 leukocyt esOrdered By: Alex Weir on 11-26-2022 Monocytes/100 WBC (Bld) 11.1 % 0-[address] [facility] Blood platelet mean volumeOr dered By: Alex Weir on 11-26-2022 Platelet mean volume (Bld) [Entitic vol] 9.2 fL 6.2-12.0 [facility] Determination of erythrocyte mean corpuscular volume (MCV)Ordered By: Alex Weir on 11-26-2022 MCV (RBC) [Entitic vol] 96.2 fL 81-[address] [facility] Hematocrit Auto (Bld) [Volum e fraction]Ordered By: Alex Weir on 11-26-2022 Hematocrit (Bld) [Volume fraction] 35.7 % 37-47 [facility] Laboratory - Chemistry and C hemistry - challengeOrdered By: Alex Weir on 11-26-2022 ALP [Catalytic activity/Vol] 104 U/L 45-117 [facility] ALT [Catalytic activity/Vol] 16 U/L 13-56 [facility] CO2 [Moles/Vol] 23.0 mmol/L 21.0-32.0 [facility] Globulin (S) [Mass/Vol] 3.5 g/dL 2.2-4.[address] [facility] Urea nitrogen/Creatinine [Mass ratio] 18.3 mg/mg 10-20 [facility] - Hematology and Cell countsOrdered By: Alex Weir on 11-26-2022 Erythrocyte distribution width (RBC) [Entitic vol] 44.2 fL 35.1-43.9 [facility] Erythrocyte distribution width (RBC) [Ratio] 12.6 % 11.6-14.6 [facility] Immature granulocytes/100 WBC (Bld) 0.200 % 0.0-0.9 [facility] Comment on above: IG% - Immature Granu locytes (promyelocytes, myelocytes and metamyelocytes) > 1% indicates that a LEFT SHIFT is Present. MCH (RBC) [Entitic mass] 32.6 pg 27.0-32.0 [facility] Nucleated RBC/100 WBC (Bld) [Ratio] 0 % 0-5 [facility] MCHC Auto (RBC) [Mass/Vol]Or dered By: Alex Weir on 11-26-2022 MCHC (RBC) [Mass/Vol] 33.9 g/dL 32-36 [facility] No Panel InformationOrdered By: Alex Weir on 11-26-2022 Estimated GFR (MDRD) Amer 81 mL/min >60 [facility] Comment on above: GFR Calc Estimated GFR (MDRD) Non-Af Amer 67 mL/min >60 [facility] Comment on above: Non- GFR Calc Platelets bldOrdered By: Kunal Weir on 11-26-2022 Platelets (Bld) [#/Vol] 264 10*3/uL 150-450 [facility] Serum or plasma albumin fiona urement (mass/volume)Ordered By: Alex Weir on 11-26-2022 Albumin [Mass/Vol] 3.4 g/dL 3.2-5.0 [facility] Serum or plasma albumin/glob ulin mass ratioOrdered By: Alex Weir on 11-26-2022 Albumin/Globulin [Mass ratio] 1.0 {ratio} 0.9-2.4 [facility] Serum or plasma calcium fiona urement (mass/volume)Ordered By: Alex Weir on 11-26-2022 Calcium [Mass/Vol] 8.8 mg/dL 8.5-10.1 [facility] Serum or plasma creatinine m easurement (mass/volume)Ordered By: Alex Weir on 11-26-2022 Creatinine [Mass/Vol] 0.88 mg/dL 0.55-1.02 [facility] Comment on above: The validity of the calculated GFR & GFRAA in patients over 70 years has not been determined. Clinical correlation is essential. Serum or plasma urea nitroge n measurement (mass/volume)Ordered By: Alex Weir on 11-26-2022 Urea nitrogen [Mass/Vol] 16 mg/dL 7-18 [facility] Thin prep Papanicolaou smear with manual screeningOrdered By: Alex Weir on 11-26-2022 Thin prep Papanicolaou smear with manual screening 11 U/L 15-37 [facility] Thin prep Papanicolaou smear with manual screening 7 5-15 [facility] Absolute lymphocyte countOrd ered By: Viviana Mcgee on 11-09-2022 Lymphocytes Auto (Unsp spec) [#/Vol] 1.33 10*3/uL 0.83-4.51 [facility] Basophil percentageOrdered B y: Viviana Mcgee on 11-09-2022 Basophils/100 WBC (Bld) 1.1 % 0-[address] [facility] Bilirubin [Mass/Vol] 0.30 mg/dL 0.20-1.00 [facility] Comment on above: For patients on eltr ombopag therapy, use of Dimension [place] TBIL is not recommended. Chloride [Moles/Vol] 111 mmol/L 98-107 [facility] Eosinophils/100 WBC (Bld) 5.1 % 0-5 [facility] Glucose [Mass/Vol] 135 mg/dL 74-106 [facility] Comment on above: Fasting Glucose resu lt greater than or equal to 126 mg/dL suggests DIABETES MELLITUS per A.D.A. criteria. Neutrophils (Bld) [#/Vol] 2.5 10*3/uL 2.0-7.7 [facility] Neutrophils/100 WBC (Bld) 52.7 % 47-70 [facility] Potassium [Moles/Vol] 4.2 mmol/L 3.5-5.1 [facility] Protein [Mass/Vol] 6.8 g/dL 6.4-8.2 [facility] Sodium [Moles/Vol] 141 mmol/L 136-145 [facility] WBC (Bld) [#/Vol] 4.7 10*3/uL 4.4-11.0 [facility] Blood erythrocytes count (nu mber/volume)Ordered By: Viviana Mcgee on 11-09-2022 RBC (Bld) [#/Vol] 3.77 10*6/uL 4.2-5.4 [facility] Blood hemoglobin measurement (mass/volume)Ordered By: Viviana Mcgee on 11-09-2022 Hemoglobin (Bld) [Mass/Vol] 11.9 g/dL 12.0-15.0 [facility] Blood lymphocytes/100 leukoc ytesOrdered By: levy Mcgee on 11-09-2022 Lymphocytes/100 WBC (Bld) 28.2 % 19-41 [facility] Blood monocytes/100 leukocyt esOrdered By: [facility] on 11-09-2022 Monocytes/100 WBC (Bld) 12.7 % 0-[address] [facility] Blood platelet mean volumeOr dered By: levy Mcgee on 11-09-2022 Platelet mean volume (Bld) [Entitic vol] 9.0 fL 6.2-12.0 [facility] Determination of erythrocyte mean corpuscular volume (MCV)Ordered By: [facility] Mcgee on 11-09-2022 MCV (RBC) [Entitic vol] 97.3 fL 81-99 [facility] Hematocrit Auto (Bld) [Volum e fraction]Ordered By: [facility] on 11-09-2022 Hematocrit (Bld) [Volume fraction] 36.7 % 37-47 [facility] - Chemistry and C hemistry - challengeOrdered By: [facility] Mcgee on 11-09-2022 ALP [Catalytic activity/Vol] 103 U/L 45-117 [facility] ALT [Catalytic activity/Vol] 15 U/L 13-56 [facility] CO2 [Moles/Vol] 24.0 mmol/L 21.0-32.0 [facility] Globulin (S) [Mass/Vol] 3.6 g/dL 2.2-4.2 [facility] Urea nitrogen/Creatinine [Mass ratio] 15.7 mg/mg 10-20 [facility] - Hematology and Cell countsOrdered By: [facility] Mcgee on 11-09-2022 Erythrocyte distribution width (RBC) [Entitic vol] 45.0 fL 35.1-43.9 [facility] Erythrocyte distribution width (RBC) [Ratio] 12.6 % 11.6-14.6 [facility] Immature granulocytes/100 WBC (Bld) 0.200 % 0.0-0.9 [facility] Comment on above: IG% - Immature Granu locytes (promyelocytes, myelocytes and metamyelocytes) > 1% indicates that a LEFT SHIFT is Present. MCH (RBC) [Entitic mass] 31.6 pg 27.0-32.0 [facility] Nucleated RBC/100 WBC (Bld) [Ratio] 0 % 0-5 [facility] MCHC Auto (RBC) [Mass/Vol]Or dered By: Viviana Mcgee on 11-09-2022 MCHC (RBC) [Mass/Vol] 32.4 g/dL 32-36 [facility] No Panel InformationOrdered By: Viviana Mcgee on 11-09-2022 Estimated GFR (MDRD) Amer 79 mL/min >60 [facility] Comment on above: GFR Calc Estimated GFR (MDRD) Non-Af Amer 66 mL/min >60 [facility] Comment on above: Non- GFR Calc Platelets bldOrdered By: Reza Mcgee on 11-09-2022 Platelets (Bld) [#/Vol] 256 10*3/uL 150-450 [facility] Serum or plasma albumin fiona urement (mass/volume)Ordered By: Viviana Mcgee on 11-09-2022 Albumin [Mass/Vol] 3.2 g/dL 3.2-5.0 [facility] Serum or plasma albumin/glob ulin mass ratioOrdered By: Viviana Mcgee on 11-09-2022 Albumin/Globulin [Mass ratio] 0.9 {ratio} 0.9-2.4 [facility] Serum or plasma calcium fiona urement (mass/volume)Ordered By: Viviana Mcgee on 11-09-2022 Calcium [Mass/Vol] 8.7 mg/dL 8.5-10.1 [facility] Serum or plasma creatinine m easurement (mass/volume)Ordered By: Viviana Mcgee on 11-09-2022 Creatinine [Mass/Vol] 0.89 mg/dL 0.55-1.02 [facility] Comment on above: The validity of the calculated GFR & GFRAA in patients over 70 years has not been determined. Clinical correlation is essential. Serum or plasma urea nitroge n measurement (mass/volume)Ordered By: Viviana Mcgee on 11-09-2022 Urea nitrogen [Mass/Vol] 14 mg/dL - [facility] Thin prep Papanicolaou smear with manual screeningOrdered By: Viviana Mcgee on 11-09-2022 Thin prep Papanicolaou smear with manual screening 12 U/L 15- [facility] Thin prep Papanicolaou smear with manual screening 6 5-15 [facility] Absolute lymphocyte countOrd ered By: Alex Weir on 10-29-2022 Lymphocytes Auto (Unsp spec) [#/Vol] 1.55 10*3/uL 0.83-4.51 [facility] Basophil percentageOrdered B y: Alex Weir on 10-29-2022 Basophils/100 WBC (Bld) 1.3 % 0-1 [facility] Bilirubin [Mass/Vol] 0.30 mg/dL 0.20-1.00 [facility] Comment on above: For patients on eltr ombopag therapy, use of Dimension [place] TBIL is not recommended. Chloride [Moles/Vol] 107 mmol/L 98-107 [facility] Eosinophils/100 WBC (Bld) 4.6 % 0-5 [facility] Glucose [Mass/Vol] 112 mg/dL 74-106 [facility] Comment on above: Fasting Glucose resu lt from 100 to 125 mg/dL suggests IMPAIRED HOMEOSTASIS per A.D.A. criteria. Neutrophils (Bld) [#/Vol] 2.5 10*3/uL 2.0-7.7 [facility] Neutrophils/100 WBC (Bld) 51.6 % 47-70 [facility] Potassium [Moles/Vol] 4.3 mmol/L 3.5-5.1 [facility] Protein [Mass/Vol] 7.7 g/dL 6.4-8.2 [facility] Sodium [Moles/Vol] 138 mmol/L 136-145 [facility] WBC (Bld) [#/Vol] 4.8 10*3/uL 4.4-11.0 [facility] Blood erythrocytes count (nu mber/volume)Ordered By: Alex Weir on 10-29-2022 RBC (Bld) [#/Vol] 4.00 10*6/uL 4.2-5.4 [facility] Blood hemoglobin measurement (mass/volume)Ordered By: Alex Weir on 10-29-2022 Hemoglobin (Bld) [Mass/Vol] 13.2 g/dL 12.0-15.0 [facility] Blood lymphocytes/100 leukoc ytesOrdered By: Alex Weir on 10-29-2022 Lymphocytes/100 WBC (Bld) 32.6 % 19-41 [facility] Blood monocytes/100 leukocyt esOrdered By: Alex Weir on 10-29-2022 Monocytes/100 WBC (Bld) 9.7 % 0-[address] [facility] Blood platelet mean volumeOr dered By: Alex Weir on 10-29-2022 Platelet mean volume (Bld) [Entitic vol] 9.1 fL 6.2-12.0 [facility] Determination of erythrocyte mean corpuscular volume (MCV)Ordered By: Alex Weir on 10-29-2022 MCV (RBC) [Entitic vol] 97.5 fL 81-[address] [facility] Hematocrit Auto (Bld) [Volum e fraction]Ordered By: Alex Weir on 10-29-2022 Hematocrit (Bld) [Volume fraction] 39.0 % 37-47 [facility] - Chemistry and C hemistry - challengeOrdered By: Alex Weir on 10-29-2022 ALP [Catalytic activity/Vol] 109 U/L 45-117 [facility] ALT [Catalytic activity/Vol] 18 U/L 13-56 [facility] CO2 [Moles/Vol] 26.0 mmol/L 21.0-32.0 [facility] Globulin (S) [Mass/Vol] 3.9 g/dL 2.2-4.[address] [facility] Urea nitrogen/Creatinine [Mass ratio] 18.0 mg/mg 10-20 [facility] - Hematology and Cell countsOrdered By: Alex Weir on 10-29-2022 Erythrocyte distribution width (RBC) [Entitic vol] 45.5 fL 35.1-43.9 [facility] Erythrocyte distribution width (RBC) [Ratio] 12.7 % 11.6-14.6 [facility] Immature granulocytes/100 WBC (Bld) 0.200 % 0.0-0.9 [facility] Comment on above: IG% - Immature Granu locytes (promyelocytes, myelocytes and metamyelocytes) > 1% indicates that a LEFT SHIFT is Present. MCH (RBC) [Entitic mass] 33.0 pg 27.0-32.0 [facility] Nucleated RBC/100 WBC (Bld) [Ratio] 0 % 0-5 [facility] MCHC Auto (RBC) [Mass/Vol]Or dered By: Alex Weir on 10-29-2022 MCHC (RBC) [Mass/Vol] 33.8 g/dL 32-36 [facility] No Panel InformationOrdered By: Alex Weir on 10-29-2022 Estimated GFR (MDRD) Amer 70 mL/min >60 [facility] Comment on above: GFR Calc Estimated GFR (MDRD) Non-Af Amer 58 mL/min >60 [facility] Comment on above: Non- GFR Calc Platelets bldOrdered By: Kunal Weir on 10-29-2022 Platelets (Bld) [#/Vol] 282 10*3/uL 150-450 [facility] Serum or plasma albumin fiona urement (mass/volume)Ordered By: Alex Weir on 10-29-2022 Albumin [Mass/Vol] 3.8 g/dL 3.2-5.0 [facility] Serum or plasma albumin/glob ulin mass ratioOrdered By: Alex Weir on 10-29-2022 Albumin/Globulin [Mass ratio] 1.0 {ratio} 0.9-2.4 [facility] Serum or plasma calcium fiona urement (mass/volume)Ordered By: Alex Weir on 10-29-2022 Calcium [Mass/Vol] 9.1 mg/dL 8.5-10.1 [facility] Serum or plasma creatinine m easurement (mass/volume)Ordered By: Alex Weir on 10-29-2022 Creatinine [Mass/Vol] 1.00 mg/dL 0.55-1.02 [facility] Comment on above: The validity of the calculated GFR & GFRAA in patients over 70 years has not been determined. Clinical correlation is essential. Serum or plasma urea nitroge n measurement (mass/volume)Ordered By: Alex Weir on 10-29-2022 Urea nitrogen [Mass/Vol] 18 mg/dL 7-18 [facility] Thin prep Papanicolaou smear with manual screeningOrdered By: Alex Weir on 10-29-2022 Thin prep Papanicolaou smear with manual screening 15 U/L 15-37 [facility] Thin prep Papanicolaou smear with manual screening 5 5-15 [facility] Absolute lymphocyte countOrd ered By: Alex Weir on 09-24-2022 Lymphocytes Auto (Unsp spec) [#/Vol] 1.68 10*3/uL 0.83-4.51 [facility] Basophil percentageOrdered B y: Alex Weir on 09-24-2022 Basophils/100 WBC (Bld) 0.6 % 0-1 [facility] Bilirubin [Mass/Vol] 0.30 mg/dL 0.20-1.00 [facility] Comment on above: For patients on eltr ombopag therapy, use of Dimension [place] TBIL is not recommended. Chloride [Moles/Vol] 110 mmol/L 98-107 [facility] Eosinophils/100 WBC (Bld) 3.3 % 0-5 [facility] Glucose [Mass/Vol] 124 mg/dL 74-106 [facility] Comment on above: Fasting Glucose resu lt from 100 to 125 mg/dL suggests IMPAIRED HOMEOSTASIS per A.D.A. criteria. Neutrophils (Bld) [#/Vol] 2.8 10*3/uL 2.0-7.7 [facility] Neutrophils/100 WBC (Bld) 51.1 % 47-70 [facility] Potassium [Moles/Vol] 4.4 mmol/L 3.5-5.1 [facility] Protein [Mass/Vol] 7.1 g/dL 6.4-8.2 [facility] Sodium [Moles/Vol] 139 mmol/L 136-145 [facility] WBC (Bld) [#/Vol] 5.4 10*3/uL 4.4-11.0 [facility] Blood erythrocytes count (nu mber/volume)Ordered By: Alex Weir on 09-24-2022 RBC (Bld) [#/Vol] 3.82 10*6/uL 4.2-5.4 [facility] Blood hemoglobin measurement (mass/volume)Ordered By: Alex Weir on 09-24-2022 Hemoglobin (Bld) [Mass/Vol] 12.1 g/dL 12.0-15.0 [facility] Blood lymphocytes/100 leukoc ytesOrdered By: Alex Weir on 09-24-2022 Lymphocytes/100 WBC (Bld) 31.2 % 19-41 [facility] Blood monocytes/100 leukocyt esOrdered By: Alex Weir on 09-24-2022 Monocytes/100 WBC (Bld) 13.4 % 0-[address] [facility] Blood platelet mean volumeOr dered By: Alex Weir on 09-24-2022 Platelet mean volume (Bld) [Entitic vol] 8.9 fL 6.2-12.0 [facility] Determination of erythrocyte mean corpuscular volume (MCV)Ordered By: Alex Weir on 09-24-2022 MCV (RBC) [Entitic vol] 95.5 fL 81-[address] [facility] Hematocrit Auto (Bld) [Volum e fraction]Ordered By: Alex Weir on 09-24-2022 Hematocrit (Bld) [Volume fraction] 36.5 % 37-47 [facility] - Chemistry and C hemistry - challengeOrdered By: Alex Weir on 09-24-2022 ALP [Catalytic activity/Vol] 115 U/L 45-117 [facility] ALT [Catalytic activity/Vol] 20 U/L 13-56 [facility] CO2 [Moles/Vol] 23.0 mmol/L 21.0-32.0 [facility] Globulin (S) [Mass/Vol] 3.9 g/dL 2.2-4.[address] [facility] Urea nitrogen/Creatinine [Mass ratio] 18.8 mg/mg 10-20 [facility] - Hematology and Cell countsOrdered By: Alex Weir on 09-24-2022 Erythrocyte distribution width (RBC) [Entitic vol] 45.3 fL 35.1-43.9 [facility] Erythrocyte distribution width (RBC) [Ratio] 13.0 % 11.6-14.6 [facility] Immature granulocytes/100 WBC (Bld) 0.400 % 0.0-0.9 [facility] Comment on above: IG% - Immature Granu locytes (promyelocytes, myelocytes and metamyelocytes) > 1% indicates that a LEFT SHIFT is Present. MCH (RBC) [Entitic mass] 31.7 pg 27.0-32.0 [facility] Nucleated RBC/100 WBC (Bld) [Ratio] 0 % 0-5 [facility] MCHC Auto (RBC) [Mass/Vol]Or dered By: Alex Weir on 09-24-2022 MCHC (RBC) [Mass/Vol] 33.2 g/dL 32-36 [facility] No Panel InformationOrdered By: Alex Weir on 09-24-2022 Estimated GFR (MDRD) Amer 84 mL/min >60 [facility] Comment on above: GFR Calc Estimated GFR (MDRD) Non-Af Amer 69 mL/min >60 [facility] Comment on above: Non- GFR Calc Thyroid Stimulating Hormone (TSH) 2.25 uIU/mL 0.358-3.74 [facility] Platelets bldOrdered By: Kunal Weir on 09-24-2022 Platelets (Bld) [#/Vol] 286 10*3/uL 150-450 [facility] Serum or plasma albumin fiona urement (mass/volume)Ordered By: Alex Weir on 09-24-2022 Albumin [Mass/Vol] 3.2 g/dL 3.2-5.0 [facility] Serum or plasma albumin/glob ulin mass ratioOrdered By: Alex Weir on 09-24-2022 Albumin/Globulin [Mass ratio] 0.8 {ratio} 0.9-2.4 [facility] Serum or plasma calcium fiona urement (mass/volume)Ordered By: Alex Weir on 09-24-2022 Calcium [Mass/Vol] 8.6 mg/dL 8.5-10.1 [facility] Serum or plasma creatinine m easurement (mass/volume)Ordered By: Alex Weir on 09-24-2022 Creatinine [Mass/Vol] 0.85 mg/dL 0.55-1.02 [facility] Comment on above: The validity of the calculated GFR & GFRAA in patients over 70 years has not been determined. Clinical correlation is essential. Serum or plasma urea nitroge n measurement (mass/volume)Ordered By: Alex Weir on 09-24-2022 Urea nitrogen [Mass/Vol] 16 mg/dL 7-18 [facility] Thin prep Papanicolaou smear with manual screeningOrdered By: Alex Weir on 09-24-2022 Thin prep Papanicolaou smear with manual screening 14 U/L 15-37 [facility] Thin prep Papanicolaou smear with manual screening 6 5-15 [facility] Absolute lymphocyte countOrd ered By: Alex Weir on 08-27-2022 Lymphocytes Auto (Unsp spec) [#/Vol] 1.65 10*3/uL 0.83-4.51 [facility] Basophil percentageOrdered B y: Alex Weir on 08-27-2022 Basophils/100 WBC (Bld) 1.1 % 0-1 [facility] Bilirubin [Mass/Vol] 0.20 mg/dL 0.20-1.00 [facility] Comment on above: For patients on eltr ombopag therapy, use of Dimension [place] TBIL is not recommended. Chloride [Moles/Vol] 110 mmol/L 98-107 [facility] Eosinophils/100 WBC (Bld) 3.6 % 0-5 [facility] Glucose [Mass/Vol] 105 mg/dL 74-106 [facility] Comment on above: Fasting Glucose resu lt from 100 to 125 mg/dL suggests IMPAIRED HOMEOSTASIS per A.D.A. criteria. Neutrophils (Bld) [#/Vol] 2.7 10*3/uL 2.0-7.7 [facility] Neutrophils/100 WBC (Bld) 50.9 % 47-70 [facility] Potassium [Moles/Vol] 4.5 mmol/L 3.5-5.1 [facility] Protein [Mass/Vol] 6.8 g/dL 6.4-8.2 [facility] Sodium [Moles/Vol] 142 mmol/L 136-145 [facility] WBC (Bld) [#/Vol] 5.3 10*3/uL 4.4-11.0 [facility] Blood erythrocytes count (nu mber/volume)Ordered By: Alex Weir on 08-27-2022 RBC (Bld) [#/Vol] 3.84 10*6/uL 4.2-5.4 [facility] Blood hemoglobin measurement (mass/volume)Ordered By: Alex Weir on 08-27-2022 Hemoglobin (Bld) [Mass/Vol] 12.0 g/dL 12.0-15.0 [facility] Blood lymphocytes/100 leukoc ytesOrdered By: Alex Weir on 08-27-2022 Lymphocytes/100 WBC (Bld) 31.4 % 19-41 [facility] Blood monocytes/100 leukocyt esOrdered By: Alex Weir on 08-27-2022 Monocytes/100 WBC (Bld) 12.6 % 0-[address] [facility] Blood platelet mean volumeOr dered By: Alex Weir on 08-27-2022 Platelet mean volume (Bld) [Entitic vol] 9.6 fL 6.2-12.0 [facility] Determination of erythrocyte mean corpuscular volume (MCV)Ordered By: Alex Weir on 08-27-2022 MCV (RBC) [Entitic vol] 95.6 fL 81-[address] [facility] Hematocrit Auto (Bld) [Volum e fraction]Ordered By: Alex Weir on 08-27-2022 Hematocrit (Bld) [Volume fraction] 36.7 % 37-47 [facility] - Chemistry and C hemistry - challengeOrdered By: Alex Weir on 08-27-2022 ALP [Catalytic activity/Vol] 94 U/L 45-117 [facility] ALT [Catalytic activity/Vol] 19 U/L 13-56 [facility] CO2 [Moles/Vol] 22.0 mmol/L 21.0-32.0 [facility] Globulin (S) [Mass/Vol] 3.4 g/dL 2.2-4.[address] [facility] Urea nitrogen/Creatinine [Mass ratio] 24.6 mg/mg 10-20 [facility] - Hematology and Cell countsOrdered By: Alex Weir on 08-27-2022 Erythrocyte distribution width (RBC) [Entitic vol] 44.7 fL 35.1-43.9 [facility] Erythrocyte distribution width (RBC) [Ratio] 12.8 % 11.6-14.6 [facility] Immature granulocytes/100 WBC (Bld) 0.400 % 0.0-0.9 [facility] Comment on above: IG% - Immature Granu locytes (promyelocytes, myelocytes and metamyelocytes) > 1% indicates that a LEFT SHIFT is Present. MCH (RBC) [Entitic mass] 31.3 pg 27.0-32.0 [facility] Nucleated RBC/100 WBC (Bld) [Ratio] 0 % 0-5 [facility] MCHC Auto (RBC) [Mass/Vol]Or dered By: Alex Weir on 08-27-2022 MCHC (RBC) [Mass/Vol] 32.7 g/dL 32-36 [facility] No Panel InformationOrdered By: Alex Weir on 08-27-2022 Estimated GFR (MDRD) Amer 84 mL/min >60 [facility] Comment on above: GFR Calc Estimated GFR (MDRD) Non-Af Amer 69 mL/min >60 [facility] Comment on above: Non- GFR Calc Platelets bldOrdered By: Kunal Weir on 08-27-2022 Platelets (Bld) [#/Vol] 270 10*3/uL 150-450 [facility] Serum or plasma albumin fiona urement (mass/volume)Ordered By: Alex Weir on 08-27-2022 Albumin [Mass/Vol] 3.4 g/dL 3.2-5.0 [facility] Serum or plasma albumin/glob ulin mass ratioOrdered By: Alex Weir on 08-27-2022 Albumin/Globulin [Mass ratio] 1.0 {ratio} 0.9-2.4 [facility] Serum or plasma calcium fiona urement (mass/volume)Ordered By: Alex Weir on 08-27-2022 Calcium [Mass/Vol] 8.7 mg/dL 8.5-10.1 [facility] Serum or plasma creatinine m easurement (mass/volume)Ordered By: Alex Weir on 08-27-2022 Creatinine [Mass/Vol] 0.85 mg/dL 0.55-1.02 [facility] Comment on above: The validity of the calculated GFR & GFRAA in patients over 70 years has not been determined. Clinical correlation is essential. Serum or plasma urea nitroge n measurement (mass/volume)Ordered By: Alex Weir on 08-27-2022 Urea nitrogen [Mass/Vol] 21 mg/dL 7-18 [facility] Thin prep Papanicolaou smear with manual screeningOrdered By: Alex Weir on 08-27-2022 Thin prep Papanicolaou smear with manual screening 11 U/L 15-37 [facility] Thin prep Papanicolaou smear with manual screening 10 5-15 [facility] Absolute lymphocyte countOrd ered By: Alex Weir on 06-25-2022 Lymphocytes Auto (Unsp spec) [#/Vol] 1.43 10*3/uL 0.83-4.51 [facility] Basophil percentageOrdered B y: Alex Weir on 06-25-2022 Basophils/100 WBC (Bld) 0.8 % 0-[address] [facility] Bilirubin [Mass/Vol] 0.30 mg/dL 0.20-1.00 [facility] Comment on above: For patients on eltr ombopag therapy, use of Dimension [place] TBIL is not recommended. Chloride [Moles/Vol] 108 mmol/L 98-107 [facility] Eosinophils/100 WBC (Bld) 3.2 % 0-5 [facility] Glucose [Mass/Vol] 122 mg/dL 74-106 [facility] Comment on above: Fasting Glucose resu lt from 100 to 125 mg/dL suggests IMPAIRED HOMEOSTASIS per A.D.A. criteria. Neutrophils (Bld) [#/Vol] 2.7 10*3/uL 2.0-7.7 [facility] Neutrophils/100 WBC (Bld) 54.1 % 47-70 [facility] Potassium [Moles/Vol] 4.5 mmol/L 3.5-5.1 [facility] Protein [Mass/Vol] 6.4 g/dL 6.4-8.2 [facility] Sodium [Moles/Vol] 141 mmol/L 136-145 [facility] WBC (Bld) [#/Vol] 5.0 10*3/uL 4.4-11.0 [facility] Blood erythrocytes count (nu mber/volume)Ordered By: Alex Weir on 06-25-2022 RBC (Bld) [#/Vol] 3.96 10*6/uL 4.2-5.4 [facility] Blood hemoglobin measurement (mass/volume)Ordered By: Alex Weir on 06-25-2022 Hemoglobin (Bld) [Mass/Vol] 12.0 g/dL 12.0-15.0 [facility] Blood lymphocytes/100 leukoc ytesOrdered By: Alex Weir on 06-25-2022 Lymphocytes/100 WBC (Bld) 28.8 % 19-41 [facility] Blood monocytes/100 leukocyt esOrdered By: Alex Weir on 06-25-2022 Monocytes/100 WBC (Bld) 12.7 % 0-[address] [facility] Blood platelet mean volumeOr dered By: Alex Weir on 06-25-2022 Platelet mean volume (Bld) [Entitic vol] 9.6 fL 6.2-12.0 [facility] Determination of erythrocyte mean corpuscular volume (MCV)Ordered By: Alex Weir on 06-25-2022 MCV (RBC) [Entitic vol] 92.2 fL 81-[address] [facility] Hematocrit Auto (Bld) [Volum e fraction]Ordered By: Alex Weir on 06-25-2022 Hematocrit (Bld) [Volume fraction] 36.5 % 37-47 [facility] - Chemistry and C hemistry - challengeOrdered By: Alex Weir on 06-25-2022 ALP [Catalytic activity/Vol] 94 U/L 45-117 [facility] ALT [Catalytic activity/Vol] 17 U/L 13-56 [facility] CO2 [Moles/Vol] 25.0 mmol/L 21.0-32.0 [facility] Globulin (S) [Mass/Vol] 3.2 g/dL 2.2-4.[address] [facility] Urea nitrogen/Creatinine [Mass ratio] 15.6 mg/mg 10-20 [facility] - Hematology and Cell countsOrdered By: Alex Weir on 06-25-2022 Erythrocyte distribution width (RBC) [Entitic vol] 47.5 fL 35.1-43.9 [facility] Erythrocyte distribution width (RBC) [Ratio] 14.1 % 11.6-14.6 [facility] Immature granulocytes/100 WBC (Bld) 0.400 % 0.0-0.9 [facility] Comment on above: IG% - Immature Granu locytes (promyelocytes, myelocytes and metamyelocytes) > 1% indicates that a LEFT SHIFT is Present. MCH (RBC) [Entitic mass] 30.3 pg 27.0-32.0 [facility] Nucleated RBC/100 WBC (Bld) [Ratio] 0 % 0-5 [facility] MCHC Auto (RBC) [Mass/Vol]Or dered By: Alex Weir on 06-25-2022 MCHC (RBC) [Mass/Vol] 32.9 g/dL 32-36 [facility] No Panel InformationOrdered By: Alex Weir on 06-25-2022 Estimated GFR (MDRD) Amer 86 mL/min >60 [facility] Comment on above: GFR Calc Estimated GFR (MDRD) Non-Af Amer 71 mL/min >60 [facility] Comment on above: Non- GFR Calc Platelets bldOrdered By: Kunal Weir on 06-25-2022 Platelets (Bld) [#/Vol] 237 10*3/uL 150-450 [facility] Serum or plasma albumin fiona urement (mass/volume)Ordered By: Alex Weir on 06-25-2022 Albumin [Mass/Vol] 3.2 g/dL 3.2-5.0 [facility] Serum or plasma albumin/glob ulin mass ratioOrdered By: Alex Weir on 06-25-2022 Albumin/Globulin [Mass ratio] 1.0 {ratio} 0.9-2.4 [facility] Serum or plasma calcium fiona urement (mass/volume)Ordered By: Alex Weir on 06-25-2022 Calcium [Mass/Vol] 9.0 mg/dL 8.5-10.1 [facility] Serum or plasma creatinine m easurement (mass/volume)Ordered By: Alex Weir on 06-25-2022 Creatinine [Mass/Vol] 0.83 mg/dL 0.55-1.02 [facility] Comment on above: The validity of the calculated GFR & GFRAA in patients over 70 years has not been determined. Clinical correlation is essential. Serum or plasma urea nitroge n measurement (mass/volume)Ordered By: Alex Weir on 06-25-2022 Urea nitrogen [Mass/Vol] 13 mg/dL 7-18 [facility] Thin prep Papanicolaou smear with manual screeningOrdered By: Alex Weir on 06-25-2022 Thin prep Papanicolaou smear with manual screening 12 U/L 15-37 [facility] Thin prep Papanicolaou smear with manual screening 8 5-15 [facility] Absolute lymphocyte countOrd ered By: Viviana Mcgee on 05-28-2022 Lymphocytes Auto (Unsp spec) [#/Vol] 1.54 10*3/uL 0.83-4.51 [facility] Basophil percentageOrdered B y: Viviana Mcgee on 05-28-2022 Basophils/100 WBC (Bld) 1.4 % 0-[address] [facility] Bilirubin [Mass/Vol] 0.30 mg/dL 0.20-1.00 [facility] Comment on above: For patients on eltr ombopag therapy, use of Dimension [place] TBIL is not recommended. Chloride [Moles/Vol] 111 mmol/L 98-107 [facility] Eosinophils/100 WBC (Bld) 4.3 % 0-5 [facility] Glucose [Mass/Vol] 105 mg/dL 74-106 [facility] Comment on above: Fasting Glucose resu lt from 100 to 125 mg/dL suggests IMPAIRED HOMEOSTASIS per A.D.A. criteria. Neutrophils (Bld) [#/Vol] 2.0 10*3/uL 2.0-7.7 [facility] Neutrophils/100 WBC (Bld) 44.7 % 47-70 [facility] Potassium [Moles/Vol] 4.2 mmol/L 3.5-5.1 [facility] Protein [Mass/Vol] 6.4 g/dL 6.4-8.2 [facility] Sodium [Moles/Vol] 142 mmol/L 136-145 [facility] WBC (Bld) [#/Vol] 4.4 10*3/uL 4.4-11.0 [facility] Blood erythrocytes count (nu mber/volume)Ordered By: Viviana Mcgee on 05-28-2022 RBC (Bld) [#/Vol] 4.06 10*6/uL 4.2-5.4 [facility] Blood hemoglobin measurement (mass/volume)Ordered By: Viviana Mcgee on 05-28-2022 Hemoglobin (Bld) [Mass/Vol] 11.9 g/dL 12.0-15.0 [facility] Blood lymphocytes/100 leukoc ytesOrdered By: Viviana Mcgee on 05-28-2022 Lymphocytes/100 WBC (Bld) 35.2 % 19-41 [facility] Blood monocytes/100 leukocyt esOrdered By: lawsons[place]ull[place]papa Mcgee on 05-28-2022 Monocytes/100 WBC (Bld) 14.4 % 0-[address] [facility] Blood platelet mean volumeOr dered By: Viviana Mcgee on 05-28-2022 Platelet mean volume (Bld) [Entitic vol] 9.2 fL 6.2-12.0 [facility] Determination of erythrocyte mean corpuscular volume (MCV)Ordered By: Viviana Mcgee on 05-28-2022 MCV (RBC) [Entitic vol] 89.2 fL 81-[address] [facility] Hematocrit Auto (Bld) [Volum e fraction]Ordered By: Viviana Mcgee on 05-28-2022 Hematocrit (Bld) [Volume fraction] 36.2 % 37-47 [facility] - Chemistry and C hemistry - challengeOrdered By: lawsonshull[place]papa Mcgee on 05-28-2022 ALP [Catalytic activity/Vol] 91 U/L 45-117 [facility] ALT [Catalytic activity/Vol] 14 U/L 13-56 [facility] CO2 [Moles/Vol] 22.0 mmol/L 21.0-32.0 [facility] Globulin (S) [Mass/Vol] 3.3 g/dL 2.2-4.[address] [facility] Urea nitrogen/Creatinine [Mass ratio] 18.8 mg/mg 10-20 [facility] - Hematology and Cell countsOrdered By: levy Mcgee on 05-28-2022 Erythrocyte distribution width (RBC) [Entitic vol] 51.6 fL 35.1-43.9 [facility] Erythrocyte distribution width (RBC) [Ratio] 15.8 % 11.6-14.6 [facility] Immature granulocytes/100 WBC (Bld) 0.000 % 0.0-0.9 [facility] Comment on above: IG% - Immature Granu locytes (promyelocytes, myelocytes and metamyelocytes) > 1% indicates that a LEFT SHIFT is Present. MCH (RBC) [Entitic mass] 29.3 pg 27.0-32.0 [facility] Nucleated RBC/100 WBC (Bld) [Ratio] 0 % 0-5 [facility] MCHC Auto (RBC) [Mass/Vol]Or dered By: Viviana Mcgee on 05-28-2022 MCHC (RBC) [Mass/Vol] 32.9 g/dL 32-36 [facility] No Panel InformationOrdered By: Viviana Mcgee on 05-28-2022 Estimated GFR (MDRD) Amer 84 mL/min >60 [facility] Comment on above: GFR Calc Estimated GFR (MDRD) Non-Af Amer 69 mL/min >60 [facility] Comment on above: Non- GFR Calc Platelets bldOrdered By: Reza Mcgee on 05-28-2022 Platelets (Bld) [#/Vol] 219 10*3/uL 150-450 [facility] Serum or plasma albumin fiona urement (mass/volume)Ordered By: Viviana Mcgee on 05-28-2022 Albumin [Mass/Vol] 3.1 g/dL 3.2-5.0 [facility] Serum or plasma albumin/glob ulin mass ratioOrdered By: Viviana Mcgee on 05-28-2022 Albumin/Globulin [Mass ratio] 0.9 {ratio} 0.9-2.4 [facility] Serum or plasma calcium fiona urement (mass/volume)Ordered By: Viviana Mcgee on 05-28-2022 Calcium [Mass/Vol] 8.3 mg/dL 8.5-10.1 [facility] Serum or plasma creatinine m easurement (mass/volume)Ordered By: Viviana Mcgee on 05-28-2022 Creatinine [Mass/Vol] 0.85 mg/dL 0.55-1.02 [facility] Comment on above: The validity of the calculated GFR & GFRAA in patients over 70 years has not been determined. Clinical correlation is essential. Serum or plasma urea nitroge n measurement (mass/volume)Ordered By: Viviana Mcgee on 05-28-2022 Urea nitrogen [Mass/Vol] 16 mg/dL 7-18 [facility] Thin prep Papanicolaou smear with manual screeningOrdered By: Viviana Mcgee on 05-28-2022 Thin prep Papanicolaou smear with manual screening 14 U/L 15-37 [facility] Thin prep Papanicolaou smear with manual screening 9 5-15 [facility] Absolute lymphocyte countOrd ered By: Alex Weir on 04-30-2022 Lymphocytes Auto (Unsp spec) [#/Vol] 1.52 10*3/uL 0.83-4.51 [facility] Basophil percentageOrdered B y: Alex Weir on 04-30-2022 Basophils/100 WBC (Bld) 1.4 % 0-1 [facility] Bilirubin [Mass/Vol] 0.30 mg/dL 0.20-1.00 [facility] Comment on above: For patients on eltr ombopag therapy, use of Dimension [place] TBIL is not recommended. Chloride [Moles/Vol] 111 mmol/L 98-107 [facility] Eosinophils/100 WBC (Bld) 3.5 % 0-5 [facility] Glucose [Mass/Vol] 110 mg/dL 74-106 [facility] Comment on above: Fasting Glucose resu lt from 100 to 125 mg/dL suggests IMPAIRED HOMEOSTASIS per A.D.A. criteria. Neutrophils (Bld) [#/Vol] 2.7 10*3/uL 2.0-7.7 [facility] Neutrophils/100 WBC (Bld) 52.1 % 47-70 [facility] Potassium [Moles/Vol] 4.3 mmol/L 3.5-5.1 [facility] Protein [Mass/Vol] 6.4 g/dL 6.4-8.2 [facility] Sodium [Moles/Vol] 141 mmol/L 136-145 [facility] WBC (Bld) [#/Vol] 5.2 10*3/uL 4.4-11.0 [facility] Blood erythrocytes count (nu mber/volume)Ordered By: Alex Weir on 04-30-2022 RBC (Bld) [#/Vol] 4.07 10*6/uL 4.2-5.4 [facility] Blood hemoglobin measurement (mass/volume)Ordered By: Alex Weir on 04-30-2022 Hemoglobin (Bld) [Mass/Vol] 11.5 g/dL 12.0-15.0 [facility] Blood lymphocytes/100 leukoc ytesOrdered By: Alex Weir on 04-30-2022 Lymphocytes/100 WBC (Bld) 29.4 % 19-41 [facility] Blood monocytes/100 leukocyt esOrdered By: Alex Weir on 04-30-2022 Monocytes/100 WBC (Bld) 13.0 % 0-[address] [facility] Blood platelet mean volumeOr dered By: Alex Weir on 04-30-2022 Platelet mean volume (Bld) [Entitic vol] 9.1 fL 6.2-12.0 [facility] Determination of erythrocyte mean corpuscular volume (MCV)Ordered By: Alex Weir on 04-30-2022 MCV (RBC) [Entitic vol] 88.2 fL 81-[address] [facility] Hematocrit Auto (Bld) [Volum e fraction]Ordered By: Alex Weir on 04-30-2022 Hematocrit (Bld) [Volume fraction] 35.9 % 37-47 [facility] - Chemistry and C hemistry - challengeOrdered By: Alex Weir on 04-30-2022 ALP [Catalytic activity/Vol] 102 U/L 45-117 [facility] ALT [Catalytic activity/Vol] 15 U/L 13-56 [facility] CO2 [Moles/Vol] 27.0 mmol/L 21.0-32.0 [facility] Globulin (S) [Mass/Vol] 3.3 g/dL 2.2-4.[address] [facility] Urea nitrogen/Creatinine [Mass ratio] 18.0 mg/mg 10-20 [facility] - Hematology and Cell countsOrdered By: Alex Weir on 04-30-2022 Erythrocyte distribution width (RBC) [Entitic vol] 55.8 fL 35.1-43.9 [facility] Erythrocyte distribution width (RBC) [Ratio] 17.4 % 11.6-14.6 [facility] Immature granulocytes/100 WBC (Bld) 0.600 % 0.0-0.9 [facility] Comment on above: IG% - Immature Granu locytes (promyelocytes, myelocytes and metamyelocytes) > 1% indicates that a LEFT SHIFT is Present. MCH (RBC) [Entitic mass] 28.3 pg 27.0-32.0 [facility] Nucleated RBC/100 WBC (Bld) [Ratio] 0 % 0-5 [facility] MCHC Auto (RBC) [Mass/Vol]Or dered By: Alex Weir on 04-30-2022 MCHC (RBC) [Mass/Vol] 32.0 g/dL 32-36 [facility] No Panel InformationOrdered By: Alex Weir on 04-30-2022 Estimated GFR (MDRD) Amer 80 mL/min >60 [facility] Comment on above: GFR Calc Estimated GFR (MDRD) Non-Af Amer 66 mL/min >60 [facility] Comment on above: Non- GFR Calc Platelets bldOrdered By: Kunal Weir on 04-30-2022 Platelets (Bld) [#/Vol] 280 10*3/uL 150-450 [facility] Serum or plasma albumin fiona urement (mass/volume)Ordered By: Alex Weir on 04-30-2022 Albumin [Mass/Vol] 3.1 g/dL 3.2-5.0 [facility] Serum or plasma albumin/glob ulin mass ratioOrdered By: Alex Weir on 04-30-2022 Albumin/Globulin [Mass ratio] 0.9 {ratio} 0.9-2.4 [facility] Serum or plasma calcium fiona urement (mass/volume)Ordered By: Alex Weir on 04-30-2022 Calcium [Mass/Vol] 8.9 mg/dL 8.5-10.1 [facility] Serum or plasma creatinine m easurement (mass/volume)Ordered By: Alex Weir on 04-30-2022 Creatinine [Mass/Vol] 0.89 mg/dL 0.55-1.02 [facility] Comment on above: The validity of the calculated GFR & GFRAA in patients over 70 years has not been determined. Clinical correlation is essential. Serum or plasma urea nitroge n measurement (mass/volume)Ordered By: Alex Weir on 04-30-2022 Urea nitrogen [Mass/Vol] 16 mg/dL 7-18 [facility] Thin prep Papanicolaou smear with manual screeningOrdered By: Alex Weir on 04-30-2022 Thin prep Papanicolaou smear with manual screening 11 U/L 15-37 [facility] Thin prep Papanicolaou smear with manual screening 3 5-15 [facility] No Panel InformationOrdered By: Viviana Mcgee on 03-29-2022 Thyroid Stimulating Hormone (TSH) 2.52 uIU/mL 0.358-3.74 [facility] Absolute lymphocyte countOrd ered By: Alex Weir on 03-26-2022 Lymphocytes Auto (Unsp spec) [#/Vol] 0.77 10*3/uL 0.83-4.51 [facility] Basophil percentageOrdered B y: Alex Weir on 03-26-2022 Basophils/100 WBC (Bld) 0.6 % 0-1 [facility] Bilirubin [Mass/Vol] 0.20 mg/dL 0.20-1.00 [facility] Comment on above: For patients on eltr ombopag therapy, use of Dimension [place] TBIL is not recommended. Chloride [Moles/Vol] 107 mmol/L 98-107 [facility] Eosinophils/100 WBC (Bld) 1.7 % 0-5 [facility] Glucose [Mass/Vol] 115 mg/dL 74-106 [facility] Comment on above: Fasting Glucose resu lt from 100 to 125 mg/dL suggests IMPAIRED HOMEOSTASIS per A.D.A. criteria. Neutrophils (Bld) [#/Vol] 8.0 10*3/uL 2.0-7.7 [facility] Neutrophils/100 WBC (Bld) 82.4 % 47-70 [facility] Potassium [Moles/Vol] 4.2 mmol/L 3.5-5.1 [facility] Protein [Mass/Vol] 7.2 g/dL 6.4-8.2 [facility] Sodium [Moles/Vol] 138 mmol/L 136-145 [facility] WBC (Bld) [#/Vol] 9.6 10*3/uL 4.4-11.0 [facility] Blood erythrocytes count (nu mber/volume)Ordered By: Alex Weir on 03-26-2022 RBC (Bld) [#/Vol] 4.15 10*6/uL 4.2-5.4 [facility] Blood hemoglobin measurement (mass/volume)Ordered By: Alex Weir on 03-26-2022 Hemoglobin (Bld) [Mass/Vol] 11.5 g/dL 12.0-15.0 [facility] Blood lymphocytes/100 leukoc ytesOrdered By: Alex Weir on 03-26-2022 Lymphocytes/100 WBC (Bld) 8.0 % 19-41 [facility] Blood monocytes/100 leukocyt esOrdered By: Alex Weir on 03-26-2022 Monocytes/100 WBC (Bld) 7.0 % 0-[address] [facility] Blood platelet mean volumeOr dered By: Alex Weir on 03-26-2022 Platelet mean volume (Bld) [Entitic vol] 8.9 fL 6.2-12.0 [facility] Determination of erythrocyte mean corpuscular volume (MCV)Ordered By: Alex Weir on 03-26-2022 MCV (RBC) [Entitic vol] 90.6 fL 81-[address] [facility] Hematocrit Auto (Bld) [Volum e fraction]Ordered By: Alex Weir on 03-26-2022 Hematocrit (Bld) [Volume fraction] 37.6 % 37-47 [facility] - Chemistry and C hemistry - challengeOrdered By: Alex Weir on 03-26-2022 ALP [Catalytic activity/Vol] 125 U/L 45-117 [facility] ALT [Catalytic activity/Vol] 15 U/L 13-56 [facility] CO2 [Moles/Vol] 26.0 mmol/L 21.0-32.0 [facility] Globulin (S) [Mass/Vol] 4.0 g/dL 2.2-4.[address] [facility] Urea nitrogen/Creatinine [Mass ratio] 14.1 mg/mg 10-20 [facility] - Hematology and Cell countsOrdered By: Alex Weir on 03-26-2022 Erythrocyte distribution width (RBC) [Entitic vol] 59.8 fL 35.1-43.9 [facility] Erythrocyte distribution width (RBC) [Ratio] 17.9 % 11.6-14.6 [facility] Immature granulocytes/100 WBC (Bld) 0.300 % 0.0-0.9 [facility] Comment on above: IG% - Immature Granu locytes (promyelocytes, myelocytes and metamyelocytes) > 1% indicates that a LEFT SHIFT is Present. MCH (RBC) [Entitic mass] 27.7 pg 27.0-32.0 [facility] Nucleated RBC/100 WBC (Bld) [Ratio] 0 % 0-5 [facility] MCHC Auto (RBC) [Mass/Vol]Or dered By: Alex Weir on 03-26-2022 MCHC (RBC) [Mass/Vol] 30.6 g/dL 32-36 [facility] No Panel InformationOrdered By: Alex Weir on 03-26-2022 Estimated GFR (MDRD) Amer 84 mL/min >60 [facility] Comment on above: GFR Calc Estimated GFR (MDRD) Non-Af Amer 69 mL/min >60 [facility] Comment on above: Non- GFR Calc Platelets bldOrdered By: Kunal Weir on 03-26-2022 Platelets (Bld) [#/Vol] 334 10*3/uL 150-450 [facility] Serum or plasma albumin fiona urement (mass/volume)Ordered By: Alex Weir on 03-26-2022 Albumin [Mass/Vol] 3.2 g/dL 3.2-5.0 [facility] Serum or plasma albumin/glob ulin mass ratioOrdered By: Alex Weir on 03-26-2022 Albumin/Globulin [Mass ratio] 0.8 {ratio} 0.9-2.4 [facility] Serum or plasma calcium fiona urement (mass/volume)Ordered By: Alex Weir on 03-26-2022 Calcium [Mass/Vol] 8.9 mg/dL 8.5-10.1 [facility] Serum or plasma creatinine m easurement (mass/volume)Ordered By: Alex Weir on 03-26-2022 Creatinine [Mass/Vol] 0.85 mg/dL 0.55-1.02 [facility] Comment on above: The validity of the calculated GFR & GFRAA in patients over 70 years has not been determined. Clinical correlation is essential. Serum or plasma urea nitroge n measurement (mass/volume)Ordered By: Alex Weir on 12-02-2022 Urea nitrogen [Mass/Vol] 12 mg/dL 7-18 [facility] Thin prep Papanicolaou smear with manual screeningOrdered By: Alex Weir on 03-26-2022 Thin prep Papanicolaou smear with manual screening 12 U/L 15-37 [facility] Thin prep Papanicolaou smear with manual screening 5 5-15 [facility] Absolute lymphocyte countOrd ered By: Alex Weir on 02-26-2022 Lymphocytes Auto (Unsp spec) [#/Vol] 1.59 10*3/uL 0.83-4.51 [facility] Basophil percentageOrdered B y: Alex Weir on 02-26-2022 Basophils/100 WBC (Bld) 1.6 % 0-[address] [facility] Bilirubin [Mass/Vol] 0.20 mg/dL 0.20-1.00 [facility] Comment on above: For patients on eltr ombopag therapy, use of Dimension [place] TBIL is not recommended. Chloride [Moles/Vol] 101 mmol/L 98-107 [facility] Eosinophils/100 WBC (Bld) 5.8 % 0-5 [facility] Glucose [Mass/Vol] 99 mg/dL 74-106 [facility] Neutrophils (Bld) [#/Vol] 2.5 10*3/uL 2.0-7.7 [facility] Neutrophils/100 WBC (Bld) 48.1 % 47-70 [facility] Potassium [Moles/Vol] 4.3 mmol/L 3.5-5.1 [facility] Protein [Mass/Vol] 7.3 g/dL 6.4-8.2 [facility] Sodium [Moles/Vol] 134 mmol/L 136-145 [facility] WBC (Bld) [#/Vol] 5.1 10*3/uL 4.4-11.0 [facility] Blood erythrocytes count (nu mber/volume)Ordered By: Alex Weir on 02-26-2022 RBC (Bld) [#/Vol] 3.49 10*6/uL 4.2-5.4 [facility] Blood hemoglobin measurement (mass/volume)Ordered By: Alex Weir on 02-26-2022 Hemoglobin (Bld) [Mass/Vol] 10.1 g/dL 12.0-15.0 [facility] Blood lymphocytes/100 leukoc ytesOrdered By: Alex Weir on 02-26-2022 Lymphocytes/100 WBC (Bld) 31.0 % 19-41 [facility] Blood monocytes/100 leukocyt esOrdered By: Alex Weir on 02-26-2022 Monocytes/100 WBC (Bld) 12.9 % 0-[address] [facility] Blood platelet mean volumeOr dered By: Alex Weir on 02-26-2022 Platelet mean volume (Bld) [Entitic vol] 8.4 fL 6.2-12.0 [facility] Determination of erythrocyte mean corpuscular volume (MCV)Ordered By: Alex Weir on 02-26-2022 MCV (RBC) [Entitic vol] 89.7 fL 81-[address] [facility] Hematocrit Auto (Bld) [Volum e fraction]Ordered By: Alex Weir on 02-26-2022 Hematocrit (Bld) [Volume fraction] 31.3 % 37-47 [facility] Laboratory - Chemistry and C hemistry - challengeOrdered By: Alex Weir on 02-26-2022 ALP [Catalytic activity/Vol] 110 U/L 45-117 [facility] ALT [Catalytic activity/Vol] 15 U/L 13-56 [facility] CO2 [Moles/Vol] 27.0 mmol/L 21.0-32.0 [facility] Globulin (S) [Mass/Vol] 4.5 g/dL 2.2-4.[address] [facility] Urea nitrogen/Creatinine [Mass ratio] 11.1 mg/mg 10-20 [facility] Laboratory - Hematology and Cell countsOrdered By: Alex Weir on 02-26-2022 Erythrocyte distribution width (RBC) [Entitic vol] 59.3 fL 35.1-43.9 [facility] Erythrocyte distribution width (RBC) [Ratio] 18.0 % 11.6-14.6 [facility] Immature granulocytes/100 WBC (Bld) 0.600 % 0.0-0.9 [facility] Comment on above: IG% - Immature Granu locytes (promyelocytes, myelocytes and metamyelocytes) > 1% indicates that a LEFT SHIFT is Present. MCH (RBC) [Entitic mass] 28.9 pg 27.0-32.0 [facility] Nucleated RBC/100 WBC (Bld) [Ratio] 0 % [facility] [Mass/Vol]Or dered By: Alex Weir on 02-26-2022 MCHC (RBC) [Mass/Vol] 32.3 g/dL 32-36 [facility] No Panel InformationOrdered By: Alex Weir on 02-26-2022 Estimated GFR (MDRD) Amer 88 mL/min >60 [facility] Comment on above: GFR Calc Estimated GFR (MDRD) Non-Af Amer 73 mL/min >60 [facility] Comment on above: Non- GFR Calc Platelets bldOrdered By: Kunal Weir on 02-26-2022 Platelets (Bld) [#/Vol] 358 10*3/uL 150-450 [facility] Serum or plasma albumin fiona urement (mass/volume)Ordered By: Alex Weir on 02-26-2022 Albumin [Mass/Vol] 2.8 g/dL 3.2-5.0 [facility] Serum or plasma albumin/glob ulin mass ratioOrdered By: Alex Weir on 02-26-2022 Albumin/Globulin [Mass ratio] 0.6 {ratio} 0.9-2.4 [facility] Serum or plasma calcium fiona urement (mass/volume)Ordered By: Alex Weir on 02-26-2022 Calcium [Mass/Vol] 9.3 mg/dL 8.5-10.1 [facility] Serum or plasma creatinine m easurement (mass/volume)Ordered By: Alex Weir on 02-26-2022 Creatinine [Mass/Vol] 0.81 mg/dL 0.55-1.02 [facility] Comment on above: The validity of the calculated GFR & GFRAA in patients over 70 years has not been determined. Clinical correlation is essential. Serum or plasma urea nitroge n measurement (mass/volume)Ordered By: Alex Weir on 02-26-2022 Urea nitrogen [Mass/Vol] 9 mg/dL 7-18 [facility] Thin prep Papanicolaou smear with manual screeningOrdered By: Alex Weir on 02-26-2022 Thin prep Papanicolaou smear with manual screening 13 U/L 15-37 [facility] Thin prep Papanicolaou smear with manual screening 6 5-15 [facility] Absolute lymphocyte countOrd ered By: Alex Weir on 01-29-2022 Lymphocytes Auto (Unsp spec) [#/Vol] 1.55 10*3/uL 0.83-4.51 [facility] Basophil percentageOrdered B y: Alex Weir on 01-29-2022 Basophils/100 WBC (Bld) 0.8 % 0-[address] [facility] Bilirubin [Mass/Vol] 0.10 mg/dL 0.20-1.00 [facility] Comment on above: For patients on eltr ombopag therapy, use of Dimension [place] TBIL is not recommended. Chloride [Moles/Vol] 101 mmol/L 98-107 [facility] Eosinophils/100 WBC (Bld) 3.0 % 0-5 [facility] Glucose [Mass/Vol] 101 mg/dL 74-106 [facility] Comment on above: Fasting Glucose resu lt from 100 to 125 mg/dL suggests IMPAIRED HOMEOSTASIS per A.D.A. criteria. Neutrophils (Bld) [#/Vol] 5.7 10*3/uL 2.0-7.7 [facility] Neutrophils/100 WBC (Bld) 67.6 % 47-70 [facility] Potassium [Moles/Vol] 4.6 mmol/L 3.5-5.1 [facility] Protein [Mass/Vol] 7.6 g/dL 6.4-8.2 [facility] Sodium [Moles/Vol] 135 mmol/L 136-145 [facility] WBC (Bld) [#/Vol] 8.4 10*3/uL 4.4-11.0 [facility] Blood erythrocytes count (nu mber/volume)Ordered By: Alex Weir on 01-29-2022 RBC (Bld) [#/Vol] 2.89 10*6/uL 4.2-5.4 [facility] Blood hemoglobin measurement (mass/volume)Ordered By: Alex Weir on 01-29-2022 Hemoglobin (Bld) [Mass/Vol] 9.2 g/dL 12.0-15.0 [facility] Blood lymphocytes/100 leukoc ytesOrdered By: Alex Weir on 01-29-2022 Lymphocytes/100 WBC (Bld) 18.5 % 19-41 [facility] Blood monocytes/100 leukocyt esOrdered By: Alex Weir on 01-29-2022 Monocytes/100 WBC (Bld) 9.9 % 0-[address] [facility] Blood platelet adequacy dete ction by light microscopyOrdered By: Alex Weir on 01-29-2022 Platelets LM Ql (Bld) ADEQUATE ADEQ [facility] Blood platelet mean volumeOr dered By: Alex Weir on 01-29-2022 Platelet mean volume (Bld) [Entitic vol] 8.7 fL 6.2-12.0 [facility] Determination of erythrocyte mean corpuscular volume (MCV)Ordered By: Alex Weir on 01-29-2022 MCV (RBC) [Entitic vol] 99.3 fL 81-[address] [facility] Hematocrit Auto (Bld) [Volum e fraction]Ordered By: Alex Weir on 01-29-2022 Hematocrit (Bld) [Volume fraction] 28.7 % 37-47 [facility] Laboratory - Chemistry and C hemistry - challengeOrdered By: Alex Weir on 01-29-2022 ALP [Catalytic activity/Vol] 98 U/L 45-117 [facility] ALT [Catalytic activity/Vol] 22 U/L 13-56 [facility] CO2 [Moles/Vol] 26.0 mmol/L 21.0-32.0 [facility] Globulin (S) [Mass/Vol] 5.2 g/dL 2.2-4.[address] [facility] Urea nitrogen/Creatinine [Mass ratio] 11.8 mg/mg 10-20 [facility] Laboratory - Hematology and Cell countsOrdered By: Alex Weir on 01-29-2022 Anisocytosis Ql (Bld) 1+ [facility] Erythrocyte distribution width (RBC) [Entitic vol] 65.9 fL 35.1-43.9 [facility] Erythrocyte distribution width (RBC) [Ratio] 18.0 % 11.6-14.6 [facility] Immature granulocytes/100 WBC (Bld) 0.200 % 0.0-0.9 [facility] Comment on above: IG% - Immature Granu locytes (promyelocytes, myelocytes and metamyelocytes) > 1% indicates that a LEFT SHIFT is Present. MCH (RBC) [Entitic mass] 31.8 pg 27.0-32.0 [facility] Nucleated RBC/100 WBC (Bld) [Ratio] 0 % 0-5 [facility] MCHC Auto (RBC) [Mass/Vol]Or dered By: Alex Weir on 01-29-2022 MCHC (RBC) [Mass/Vol] 32.1 g/dL 32-36 [facility] No Panel InformationOrdered By: Alex Weir on 01-29-2022 Estimated GFR (MDRD) Amer 96 mL/min >60 [facility] Comment on above: GFR Calc Estimated GFR (MDRD) Non-Af Amer 79 mL/min >60 [facility] Comment on above: Non- GFR Calc Platelets bldOrdered By: Kunal Weir on 01-29-2022 Platelets (Bld) [#/Vol] 486 10*3/uL 150-450 [facility] RBC morphologyOrdered By: Naida Weir on 01-29-2022 RBC morphology finding Nom (Bld) N CHROM NORMAL NORM C&C [facility] Serum or plasma albumin fiona urement (mass/volume)Ordered By: Alex Weir on 01-29-2022 Albumin [Mass/Vol] 2.4 g/dL 3.2-5.0 [facility] Serum or plasma albumin/glob ulin mass ratioOrdered By: Alex Weir on 01-29-2022 Albumin/Globulin [Mass ratio] 0.5 {ratio} 0.9-2.4 [facility] Serum or plasma calcium fiona urement (mass/volume)Ordered By: Alex Weir on 01-29-2022 Calcium [Mass/Vol] 9.4 mg/dL 8.5-10.1 [facility] Serum or plasma creatinine m easurement (mass/volume)Ordered By: Alex Weir on 01-29-2022 Creatinine [Mass/Vol] 0.76 mg/dL 0.55-1.02 [facility] Comment on above: The validity of the calculated GFR & GFRAA in patients over 70 years has not been determined. Clinical correlation is essential. Serum or plasma urea nitroge n measurement (mass/volume)Ordered By: Alex Weir on 01-29-2022 Urea nitrogen [Mass/Vol] 9 mg/dL 7-18 [facility] Thin prep Papanicolaou smear with manual screeningOrdered By: Alex Weir on 01-29-2022 Thin prep Papanicolaou smear with manual screening 16 U/L 15-37 [facility] Thin prep Papanicolaou smear with manual screening 8 5-15 [facility] Absolute lymphocyte counton 01-11-2022 Lymphocytes Auto (Unsp spec) [#/Vol] 0.80 10*3/uL 0.83-4.51 [facility] Work Phone: Basophil percentageon 2021 Basophils/100 WBC (Bld) 0.7 % 0-[address] [facility] Work Phone: Bilirubin [Mass/Vol] 0.30 mg/dL 0.20-1.00 [facility] Work Phone: Comment on above: For patients on eltr ombopag therapy, use of Dimension [place] TBIL is not recommended. Chloride [Moles/Vol] 100 mmol/L 98-107 [facility] Work Phone: Eosinophils/100 WBC (Bld) 0.8 % 0-5 [facility] Work Phone: Glucose [Mass/Vol] 84 mg/dL 74-106 [facility] Work Phone: Neutrophils (Bld) [#/Vol] 6.7 10*3/uL 2.0-7.7 [facility] Work Phone: Neutrophils/100 WBC (Bld) 76.8 % 47-70 [facility] Work Phone: Potassium [Moles/Vol] 3.8 mmol/L 3.5-5.1 [facility] Work Phone: Protein [Mass/Vol] 7.0 g/dL 6.4-8.2 [facility] Work Phone: Sodium [Moles/Vol] 135 mmol/L 136-145 [facility] Work Phone: WBC (Bld) [#/Vol] 8.8 10*3/uL 4.4-11.0 [facility] Work Phone: Blood erythrocytes count (nu mber/volume)on 01-11-2022 RBC (Bld) [#/Vol] 2.73 10*6/uL 4.2-5.4 [facility] Work Phone: Blood hemoglobin measurement (mass/volume)on 01-11-2022 Hemoglobin (Bld) [Mass/Vol] 9.4 g/dL 12.0-15.0 [facility] Work Phone: Blood lymphocytes/100 leukoc yteson 01-11-2022 Lymphocytes/100 WBC (Bld) 9.1 % 19-41 [facility] Work Phone: Blood monocytes/100 leukocyt eson 01-11-2022 Monocytes/100 WBC (Bld) 11.8 % 0-[address] [facility] Work Phone: Blood platelet adequacy dete ction by light microscopyon 01-11-2022 Platelets LM Ql (Bld) [employer] ADEQ [facility] Work Phone: Blood platelet mean volumeon 01-11-2022 Platelet mean volume (Bld) [Entitic vol] 8.6 fL 6.2-12.0 [facility] Work Phone: Determination of erythrocyte mean corpuscular volume (MCV)on 01-11-2022 MCV (RBC) [Entitic vol] 107.0 fL 81-[address] [facility] Work Phone: Hematocrit Auto (Bld) [Volum e fraction]on 01-11-2022 Hematocrit (Bld) [Volume fraction] 29.2 % 37-47 [facility] Work Phone: Laboratory - Chemistry and C hemistry - challengeon 01-11-2022 ALP [Catalytic activity/Vol] 148 U/L 45-117 [facility] Work Phone: ALT [Catalytic activity/Vol] 56 U/L 13-56 [facility] Work Phone: [phone] CO2 [Moles/Vol] 25.0 mmol/L 21.0-32.0 [facility] Work Phone: Globulin (S) [Mass/Vol] 5.2 g/dL 2.2-4.[address] [facility] Work Phone: [phone] Urea nitrogen/Creatinine [Mass ratio] 8.5 mg/mg 10-20 [facility] Work Phone: [phone] Laboratory - Hematology and Cell countson 01-11-2022 Anisocytosis Ql (Bld) 1+ [facility] Work Phone: [phone] Erythrocyte distribution width (RBC) [Entitic vol] 65.2 fL 35.1-43.9 [facility] Work Phone: [phone] Erythrocyte distribution width (RBC) [Ratio] 16.7 % 11.6-14.6 [facility] Work Phone: Immature granulocytes/100 WBC (Bld) 0.800 % 0.0-0.9 [facility] Work Phone: [phone] Comment on above: IG% - Immature Granu locytes (promyelocytes, myelocytes and metamyelocytes) > 1% indicates that a LEFT SHIFT is Present. MCH (RBC) [Entitic mass] 34.4 pg 27.0-32.0 [facility] Work Phone: Nucleated RBC/100 WBC (Bld) [Ratio] 0 % 0-5 [facility] Work Phone: MCHC Auto (RBC) [Mass/Vol]on 01-11-2022 MCHC (RBC) [Mass/Vol] 32.2 g/dL 32-36 [facility] Work Phone: No Panel Informationon 01-11 Estimated GFR (MDRD) Amer 128 mL/min >60 [facility] Work Phone: Comment on above: GFR Calc Estimated GFR (MDRD) Non-Af Amer 106 mL/min >60 [facility] Work Phone: [phone] Comment on above: Non- GFR Calc Platelets bldon 01-11-2022 Platelets (Bld) [#/Vol] 846 10*3/uL 150-450 [facility] Work Phone: Comment on above: CRITICAL VALUE VERIF IED. CALLED TO LEANNA BAEZA ([facility])01/11/22 0834 Cr [place].RESULTS READ BACK BY SAME. Previous reported result: 846 [id number] by: MSTONENel on 01/11/22:0834 AMENDED REPORT 01/11/22 0834 PLT previously reported as: 846 *H K/mm3 Review by pathologiston 12-24 Pathologist review Guy (Unsp spec) [Interp] Reviewed [facility] Work Phone: Comment on above: Previous reported re sult: Iqra najera Edited by: ANDERSON on 01/12/22:1304Mild Macrocytic anemia.Thrombocytosis.Clinical correlation necessary.Chao Mathews M.D. 01/12/22 AMENDED REPORT 01/12/22 1304 PATH REV previously reported as: Iqra najera Serum or plasma albumin fiona urement (mass/volume)on 01-11-2022 Albumin [Mass/Vol] 1.8 g/dL 3.2-5.0 [facility] Work Phone: Serum or plasma albumin/glob ulin mass ratioon 01-11-2022 Albumin/Globulin [Mass ratio] 0.3 {ratio} 0.9-2.4 [facility] Work Phone: Serum or plasma calcium fiona urement (mass/volume)on 01-11-2022 Calcium [Mass/Vol] 8.7 mg/dL 8.5-10.1 [facility] Work Phone: Serum or plasma creatinine m easurement (mass/volume)on 01-11-2022 Creatinine [Mass/Vol] 0.59 mg/dL 0.55-1.02 [facility] Work Phone: Comment on above: The validity of the calculated GFR & GFRAA in patients over 70 years has not been determined. Clinical correlation is essential. Serum or plasma urea nitroge n measurement (mass/volume)on 01-11-2022 Urea nitrogen [Mass/Vol] 5 mg/dL 7-18 [facility] Work Phone: Thin prep Papanicolaou smear with manual screeningon 01-11-2022 Thin prep Papanicolaou smear with manual screening 41 U/L 15-37 [facility] Work Phone: Thin prep Papanicolaou smear with manual screening 10 5-15 [facility] Work Phone: Basic Metabolic Panelon 12-24 Calcium [Mass/Vol] 8.6 mg/dL Normal 8.4-10.4 [facility] Comment on above: Performed By: #### H LALA BMP3M #### [facility] [address] [place], [place] Glucose [Mass/Vol] 86 mg/dL Normal 70-100 [facility] Comment on above: Performed By: #### H LALA BMP3M #### [facility] [employer] [place] [address] [place], [place] Urea nitrogen [Mass/Vol] 9 mg/dL Normal 9-20 [facility] Comment on above: Performed By: #### H LALA BMP3M #### [facility] [employer] [facility] [address] [place], [place] Anion gap [Moles/Vol] 8 mmol/L Normal 3-13 [facility] Comment on above: Performed By: #### H EMDF BMP3M #### [facility] [employer] [facility] [address] [place], [place] CO2 [Moles/Vol] 23 mmol/L Normal 22-30 [facility] Comment on above: Performed By: #### H EMDF BMP3M #### [facility] [employer] [facility] [address], [place] Creatinine [Mass/Vol] 0.55 mg/dL Normal 0.52-1.25 [facility] Comment on above: Performed By: #### H EMDF BMP3M #### [facility] [employer] [facility] [address], [place] eGFR OTHER > 90.0 Normal >60 [facility] Comment on above: Result Comment: KDIG O [...] Performed By: #### H LALA BMP3M #### [address] GFR/1.73 sq M.predicted among blacks MDRD (S/P/Bld) [Vol rate/Area] mL/min/{1.73_m2} Normal >60 [facility] Comment on above: Performed By: #### H LALA BMP3M #### [address] Chloride [Moles/Vol] 105 mmol/L Normal 98-107 [facility] Comment on above: Performed By: #### H LALA BMP3M #### [address] Potassium [Moles/Vol] 4.8 mmol/L Normal 3.5-5.1 [facility] Comment on above: Performed By: #### H LALA BMP3M #### [place] [address] [place], [place] Sodium [Moles/Vol] 136 mmol/L Normal 135-145 [facility] Comment on above: Performed By: #### H LALA BMP3M #### [address] Basic Metabolic Panel w/ Ref emmanuel [...] P INF mL/min [facility] EGFR IF NonAfrican Turkmen mL/min 60 - PINF mL/min [facility] Glucose [Mass/Vol] 86 mg/dL 70 - 100 mg/dL [facility] Potassium [Moles/Vol] 4.8 mmol/L 3.5 - 5.1 mmol/L [facility] Sodium [Moles/Vol] 136 mmol/L 135 - 145 mmol/L [facility] Urea nitrogen (BldV) [Mass/Vol] 9 mg/dL 9 - 20 mg/dL [facility] CBC with Auto Differentialon [...] 11.2 g/dL Low 11.7 - 16 g/dL [facility] Interpretation and review of laboratory results Abnormal [...] 3.28 10*6/uL Low 3.8 - 5.2 10*6/uL [facility] WBC (Bld) [#/Vol] 10.8 10*3/uL High 3.6 - 10.7 10*3/uL [facility] 01-07-2022 SARS-CoV-2 (COVID-19) RNA LISE+probe Ql (Unsp spec) Not detected Not Detected [facility] CR Chest Portableon 01-08-20 22 CR Chest Portable Patient Name: JAIMIE MCGOVERN Diagnostic Radiology ACCESSION EXAM DATE/TIME PROCEDURE ORDERING PROVIDER [id number] 01/07/2022 06:40 EDT CR Chest Portable [id number] -NATHALIE, ANEIL CPT code 44338 Reason For Exam (CR Chest Portable) patient [...] Transcribed Date and Time: 01/07/2022 7:25 Normal [facility] Hemogram w/ Autodiffon 01-07 Abs Baso Cnt 0.1 10*3/uL Normal 0.0-0.2 [facility] Comment on above: Performed By: #### H LALA BMP3M #### [place] [address] [place] [address] Abs Neutrophile Cnt 8.9 10*3/uL High 1.8-7.0 [facility] Comment on above: Performed By: #### H LALA BMP3M #### [place] [address] [place] [address] Basophils/100 WBC (Bld) 0.6 % Normal 0.0-2.[address] [facility] Comment on above: Performed By: #### H LALA BMP3M #### [address] [address] Eosinophils (Bld) [#/Vol] 0.1 10*3/uL Normal 0.0-0.5 [facility] Comment on above: Performed By: #### H EMDF BMP3M #### [place] [address] [place] [address] Eosinophils/100 WBC (Bld) 1.1 % Normal 1.0-6.0 [facility] Comment on above: Performed By: #### H EMDLavon BMP3M #### [address] [address] Granulocytes/100 WBC (Bld) 79.2 % Normal 40.0-80.0 [facility] Comment on above: Performed By: #### H EMDLavon BMP3M #### [place] [address] [place], [place] Lymphocytes (Bld) [#/Vol] 0.9 10*3/uL Low 1.0-4.3 [facility] Comment on above: Performed By: #### H EMDF BMP3M #### [facility] [address] [place] [address] Lymphocytes/100 WBC (Bld) 8.4 % Low 20.0-40.0 [facility] Comment on above: Performed By: #### H EMDF BMP3M #### [facility] [address] [place], [place] Monocytes (Bld) [#/Vol] 1.2 10*3/uL High 0.0-0.8 [facility] Comment on above: Performed By: #### H EMDF BMP3M #### [facility] [address] [place], [place] Monocytes/100 WBC (Bld) 10.7 % High 2.0-10.0 [facility] Comment on above: Performed By: #### H EMDF BMP3M #### [facility] [address] [place], [place] Erythrocyte distribution width (RBC) [Ratio] 18.6 % High 11.5-14.5 [facility] Comment on above: Performed By: #### H EMDF, BMP3M #### [facility] [address] [place], [place] Hematocrit (Bld) [Volume fraction] 34.9 % Low 35.0-47.0 [facility] Comment on above: Performed By: #### H EMDF BMP3M #### [facility] [address] [place], [place] Hemoglobin (Bld) [Mass/Vol] 11.2 g/dL Low 11.7-16.0 [facility] Comment on above: Performed By: #### H EMDF, BMP3M #### [facility] [address] [place], [place] MCH (RBC) [Entitic mass] 34.1 pg High 26.0-34.0 [facility] Comment on above: Performed By: #### Micheal REEVES BMP3M #### [place] [address] [place], [place] MCHC 32.1 % Normal 32.0-36.0 [facility] Comment on above: Performed By: #### Micheal REEVES BMP3M #### [place] [address] [place], [place] MCV (RBC) [Entitic vol] 106.4 fL High 79.0-98.[address] [facility] Comment on above: Performed By: #### H LALA BMP3M #### [place] [address] [place], [place] Platelet mean volume (Bld) [Entitic vol] 7.3 fL Low 7.4-12.4 [facility] Comment on above: Result Comment: MPV is a calculated measurement using platelet volume ratio. Performed By: #### Micheal REEVES BMP3M #### [place] [address] [place], [place] Platelets (Bld) [#/Vol] 725 10*3/uL High 140-440 [facility] Comment on above: Performed By: #### Micheal REEVES BMP3M #### [place] [address] [place], [place] RBC (Bld) [#/Vol] 3.28 10*6/uL Low 3.80-5.20 [facility] Comment on above: Performed By: #### Micheal REEVES BMP3M #### [address] WBC (Bld) [#/Vol] 10.8 10*3/uL High 3.6-10.7 [facility] Comment on above: Performed By: #### Micheal REEVES BMP3M #### [address] No Panel Informationon 01-07 Radiology Study observation (narrative) [facility] Work Phone: [id number] 01-07-2022 SARS-CoV-2 (COVID-19) RNA LISE+probe Ql (Unsp spec) SARS-CoV-2 --> Status: F Not Detected. Expected result: Not Detected _ Method: Real-time, RT-PCR Negative results do not preclude SARS-CoV-2 infection and should not be used as the sole basis for treatment or other patient management decisions. This assay was developed by [employer] and distributed under an Emergency Use Authorization (EUA) granted by the FDA for the qualitative detection of SARS-CoV-2 nucleic acid. Provider and patient fact sheets can be found at https://www.[facility].gov/ edia/783049/download and https://www.[employer].gov/ [employer]/167340/download. Expected result: Not Detected _ Method: Real-time, RT-PCR Negative results do not preclude SARS-CoV-2 infection and should not be used as the sole basis for treatment or other patient management decisions. This assay was developed by [employer] and distributed under an Emergency Use Authorization (EUA) granted by the FDA for the qualitative detection of SARS-CoV-2 nucleic acid. Provider and patient fact sheets can be found at https://www.[employer].gov/ edia/863104/download and https://www.[employer].gov/ [employer]/617756/download. Normal [facility] Comment on above: Performed By: #### B MP3M, HEMDF, MG3, PHOS3, PCAL #### [address] [address] VL LOWER EXTREMITY BILATERAL VENOUS DUPLEXon 01-07-2022 [facility] CARDIOLOG[facility] Work Phone: VL LOWER EXTREMITY BILATERAL VENOUS DUPLEXOrdered By: Rob Combs on 01-07-2022 [facility] Work Phone: VL Venous Duplex US Lower Ex t Bilateralon 01-07-2022 VL Venous Duplex US Lower Ext Bilateral Patient Name: JAIMIE [facility] Ultrasound ACCESSION EXAM DATE/TIME PROCEDURE ORDERING PROVIDER [id number] 01/07/2022 14:19 EDT VL Venous Duplex US [id number] -NATHALIE, ANEIL Lower Ext Bilateral CPT code 40236 Reason For Exam (VL Venous Duplex US Lower Ext Bilateral) edema Report [facility] -------- Lower Extremity Venous Duplex Report Patient Olimpia, : 1945 Study 01/07/2022 Name: Jaimie (76yrs) Date: Patient [id number] Age: 76 Account: [id number] ID: Gender: F Loc: 6104 BP: Ordering Physician: Blayne Zelaya [employer] Installer: Carolina Mccormack RVT Interpreting Physician: Rob Combs MD -------- Location: [facility] -------- Indications: BLE edema. -------- Conclusions 1. [...] supine position. Images were obtained using a [employer] vascular ultrasound machine. -------- Ultrasound Report Venous [...] peroneal +Patent (more content not included)... Normal [facility] [employer] [facility] XR CHEST PORTABLEon 01-08-20 22 [facility] [employer] Work Phone: XR CHEST PORTABLEOrdered By: Jack Blankenship on 01-07-2022 [facility] Work Phone: Basic Metabolic Panelon 12-24 Anion gap [Moles/Vol] 8 mmol/L Normal 3-13 [facility] Comment on above: Performed By: #### H LALA BMP3M ####[facility] [employer] [id number] [place] [address] Calcium [Mass/Vol] 8.4 mg/dL Normal 8.4-10.4 [facility] Comment on above: Performed By: #### H LALA, BMP3M ####[facility] [employer] [id number] [place] [address] CO2 [Moles/Vol] 22 mmol/L Normal 22-30 [facility] Comment on above: Performed By: #### H MAGDALENA REEVES3M ####[address] [place], [place] Creatinine [Mass/Vol] 0.60 mg/dL Normal 0.52-1.25 [facility] Comment on above: Performed By: #### H MAGDALENA REEVES3M ####[address] [place] [address] GFR/1.73 sq M.predicted among blacks MDRD (S/P/Bld) [Vol rate/Area] mL/min/{1.73_m2} Normal >60 [facility] Comment on above: Performed By: #### H MAGDALENA REEVES3M ####[address] [place] [address] GFR/1.73 sq M.predicted among non-blacks MDRD (S/P/Bld) [Vol rate/Area] 89.5 mL/min/{1.73_m2} Normal >60 [facility] Comment on above: Result Comment: KDIG O [...] secretion. Performed By: #### H MAGDALENA REEVES3M ####[address] [place] [address] Glucose [Mass/Vol] 107 mg/dL High 70-100 [facility] Comment on above: Performed By: #### H EMDF, BMP3M ####[facility] [place] [address] Urea nitrogen [Mass/Vol] 8 mg/dL Low 9-20 [facility] Comment on above: Performed By: #### H LALA BMP3M ####[facility] [place] [address] Chloride [Moles/Vol] 107 mmol/L Normal 98-107 [facility] Comment on above: Performed By: #### H LALA BMP3M ####[address] [place] [address] Potassium [Moles/Vol] 4.2 mmol/L Normal 3.5-5.1 [facility] Comment on above: Performed By: #### H LALA BMP3M ####[address] [place] [address] Sodium [Moles/Vol] 137 mmol/L Normal 135-145 [facility] Comment on above: Performed By: #### H LALA BMP3M ####[address] [place] [address] Basic Metabolic Panel w/ Ref emmanuel to [...] P INF mL/min [facility] EGFR IF NonAfrican Turkmen 89.5 mL/min 60 - PINF mL/min [facility] Glucose [Mass/Vol] 107 mg/dL High 70 - 100 mg/dL [facility] Interpretation and review of laboratory results Abnormal [facility] Potassium [Moles/Vol] 4.2 mmol/L 3.5 - 5.1 mmol/L [facility] Sodium [Moles/Vol] 137 mmol/L 135 - 145 mmol/L [facility] Urea nitrogen (BldV) [Mass/Vol] 8 mg/dL Low 9 - 20 mg/dL [facility] CBC with Auto Differentialon 01-06-2022 Absolute Baso [...] 10.9 g/dL Low 11.7 - 16 g/dL [facility] Interpretation and review of laboratory results Abnormal [...] 3.17 10*6/uL Low 3.8 - 5.2 10*6/uL [facility] WBC (Bld) [#/Vol] 12.3 10*3/uL High 3.6 - 10.7 10*3/uL [facility] CR Chest Portableon 01-07-20 CR Chest Portable Patient Name: JAIMIE MCGOVERN Diagnostic Radiology ACCESSION EXAM DATE/TIME PROCEDURE ORDERING PROVIDER [id number] 01/06/2022 06:48 EDT CR Chest Portable [id number] -NATHALIE, ANEIL CPT code 36921 Reason For Exam (CR Chest Portable) patient [...] Transcribed Date and Time: 01/06/2022 8:25 Normal [facility] Culture, Body Fluidon 2021 Body Fluid Cult/Smear, Aerobic No growth at 5 days. [facility] Gram Stain Result [facility] Hem[facility] w/ Autodiffon 01-06 Abs Baso Cnt 0.2 10*3/uL Normal 0.0-0.2 [facility] Comment on above: Performed By: #### H EMDF, BMP3M ####[address] [place] [address] Abs Neutrophile Cnt 10.5 10*3/uL High 1.8-7.0 [facility] Comment on above: Performed By: #### H EMDF BMP3M ####[address] [place] [address] Basophils/100 WBC (Bld) 1.4 % Normal 0.0-2.0 [facility] Comment on above: Performed By: #### H EMDF, BMP3M ####[address] [place] [address] Eosinophils (Bld) [#/Vol] 0.1 10*3/uL Normal 0.0-0.5 [facility] Comment on above: Performed By: #### H EMDF BMP3M ####[address] [address] Eosinophils/100 WBC (Bld) 0.9 % Low 1.0-6.0 [facility] Comment on above: Performed By: #### H EMDF BMP3M ####[address] [address] Granulocytes/100 WBC (Bld) 83.1 % High 40.0-80.0 [facility] Comment on above: Performed By: #### H EMDF, BMP3M ####[address] [address] Lymphocytes (Bld) [#/Vol] 0.8 10*3/uL Low 1.0-4.3 [facility] Comment on above: Performed By: #### H EMDF, BMP3M ####[address] [address] Lymphocytes/100 WBC (Bld) 6.3 % Low 20.0-40.0 [facility] Comment on above: Performed By: #### H EMDF, BMP3M ####[address] [address] Monocytes (Bld) [#/Vol] 1.0 10*3/uL High 0.0-0.8 [facility] Comment on above: Performed By: #### H MAGDALENA REEVES3M ####[address] Monocytes/100 WBC (Bld) 8.3 % Normal 2.0-10.[address] [facility] Comment on above: Performed By: #### MAGDALENA BOBO3M ####[address] Erythrocyte distribution width (RBC) [Ratio] 17.8 % High 11.5-14.5 [facility] Comment on above: Performed By: #### MAGDALENA BOBO3M ####[address] Hematocrit (Bld) [Volume fraction] 33.4 % Low 35.0-47.0 [facility] Comment on above: Performed By: #### MAGDALENA BOBO3M ####[address] Hemoglobin (Bld) [Mass/Vol] 10.9 g/dL Low 11.7-16.0 [facility] Comment on above: Performed By: #### MAGDALENA BOBO3M ####[address] MCH (RBC) [Entitic mass] 34.5 pg High 26.0-34.0 [facility] Comment on above: Performed By: #### Micheal REEVES BMP3M ####[address] MCHC 32.7 % Normal 32.0-36.0 [facility] Comment on above: Performed By: #### MAGDALENA BOBO3M ####[address] MCV (RBC) [Entitic vol] 105.5 fL High 79.0-98.[address] [facility] Comment on above: Performed By: #### MAGDALENA BOBO3M ####[facility] [employer] [id number] [place], [place] Platelet mean volume (Bld) [Entitic vol] 7.3 fL Low 7.4-12.4 [facility] Comment on above: Result Comment: MPV is a calculated measurement using platelet volume ratio. Performed By: #### H LALA BMP3M ####[facility] [employer] [id number] [place], [place] Platelets (Bld) [#/Vol] 647 10*3/uL High 140-440 [facility] Comment on above: Performed By: #### H EMDLavon BMP3M ####[facility] [employer] [id number] [place], [place] RBC (Bld) [#/Vol] 3.17 10*6/uL Low 3.80-5.20 [facility] Comment on above: Performed By: #### H LALA BMP3M ####[facility] [employer] [id number] [place], [place] WBC (Bld) [#/Vol] 12.3 10*3/uL High 3.6-10.7 [facility] Comment on above: Performed By: #### H LALA BMP3M ####[facility] [employer] [id number] [place], [place] No Panel Informationon 01-06 Radiology Study observation (narrative) [facility] Work Phone: US GUIDE THORACENTESISon [facility] Work Phone: [facility] Work Phone: US Thora-Aspir Pleura w/ Shawanda geon 01-06-2022 US Thora-Aspir Pleura w/ Image Patient Name: JAIMIE MCGOVERN Ultrasound ACCESSION EXAM DATE/TIME PROCEDURE ORDERING PROVIDER [id number] 01/06/2022 15:22 EDT US Thora-Aspir Pleura w/ [id number] -MELY BURCH Image CPT code 40968 Reason For Exam (US Thora-Aspir Pleura w/ [...] Dictated: 01/06/2022 4:08 pm Dictating Physician: MD OBEY, RAFAEL Signed Date and Time: 01/06/2022 4:29 pm Signed by: MD LIAO MALAY Transcribed Date and Time: 01/06/2022 4:09 Normal [place] XR CHEST PORTABLEon 01-07-20 22 [facility] Work Phone: [facility] Work Phone: Add On Lab Teston 01-05-2022 Add On Accepted [facility] Add on test from HISon 01-05 Add on test from HIS Accepted Normal [facility] Comment on above: Result Comment: Spec imen available & acceptable for analysis. Performed By: #### A DDON ####[facility] [place], [place] Basic Metabolic Panelon 12-24 Calcium [Mass/Vol] 8.0 mg/dL Low 8.4-10.4 [facility] Comment on above: Performed By: #### H EMDF BMP3M #### [facility] [address] [place], [place] Anion gap [Moles/Vol] 8 mmol/L Normal 07-05 [facility] Comment on above: Performed By: #### H EMDF BMP3M #### [facility] [address] [place], [place] CO2 [Moles/Vol] 17 mmol/L Low - [facility] Comment on above: Performed By: #### H EMDF BMP3M #### [facility] [address] [place], [place] Creatinine [Mass/Vol] 0.46 mg/dL Low 0.52-1.25 [facility] Comment on above: Performed By: #### H EMDF BMP3M #### [facility] [address] [place], [place] eGFR OTHER > 90.0 Normal >60 [facility] Comment on above: Result Comment: KDIG O [...] Performed By: #### H MAGDALENA REEVES3M #### [address] [place], [place] GFR/1.73 sq M.predicted among blacks MDRD (S/P/Bld) [Vol rate/Area] mL/min/{1.73_m2} Normal >60 [facility] Comment on above: Performed By: #### MAGDALENA BOBO3M #### [address] Glucose [Mass/Vol] 64 mg/dL Low 70-100 [facility] Comment on above: Performed By: #### Micheal REEVES BMP3M #### [address] Urea nitrogen [Mass/Vol] 6 mg/dL Low 9-20 [facility] Comment on above: Performed By: #### H MAGDALENA REEVES3M #### [address] Chloride [Moles/Vol] 108 mmol/L High 98-107 [facility] Comment on above: Performed By: #### Micheal REEVES BMP3M #### [address] Potassium [Moles/Vol] 4.7 mmol/L Normal 3.5-5.1 [facility] Comment on above: Performed By: #### MAGDALENA BOBO3M #### [address] Sodium [Moles/Vol] 133 mmol/L Low 135-145 [facility] Comment on above: Performed By: #### Micheal REEVES BMP3M #### [address] [place], [place] Basic Metabolic Panel w/ Ref emmanuel to MGon 09-13-2022 Anion gap [Moles/Vol] 8 mmol/L 3 - 13 mmol/L [facility] Calcium [Mass/Vol] 8.0 mg/dL Low 8.4 - 10. 4 mg/dL [facility] Chloride [Moles/Vol] 108 mmol/L High 98 - 10 7 mmol/L [facility] CO2 [Moles/Vol] 17 mmol/L Low 22 - 30 mmol/L [facility] Creatinine [Mass/Vol] 0.46 mg/dL Low 0.52 - 1.25 mg/dL [facility] eGFR mL/min 60 - P INF mL/min [facility] EGFR IF NonAfrican Turkmen mL/min 60 - PINF mL/min [facility] Glucose [Mass/Vol] 64 mg/dL Low 70 - 100 mg/dL [facility] Interpretation and review of laboratory results Abnormal [facility] Potassium [Moles/Vol] 4.7 mmol/L 3.5 - 5.1 mmol/L [facility] Sodium [Moles/Vol] 133 mmol/L Low 135 - 145 mmol/L [facility] Urea nitrogen (BldV) [Mass/Vol] 6 mg/dL Low 9 - 20 mg/dL [facility] CBC with Auto Differentialon [...] 11.6 g/dL Low 11.7 - 16 g/dL [facility] Interpretation and review of laboratory results Abnormal [...] 13.4 10*3/uL High 3.6 - 10.7 10*3/uL [facility] CR Chest Portableon 01-06-20 CR Chest Portable Patient Name: JAIMIE MCGOVERN Diagnostic Radiology ACCESSION EXAM DATE/TIME PROCEDURE ORDERING PROVIDER [id number] 01/05/2022 06:51 EDT CR Chest Portable [id number] -NATHALIE, ANEIL CPT code 10275 Reason For Exam (CR Chest Portable) patient [...] Transcribed Date and Time: 01/05/2022 9:19 Normal [facility] Hemogram w/ Autodiffon 01-05 Abs Baso Cnt 0.0 10*3/uL Normal 0.0-0.2 [facility] Comment on above: Performed By: #### H EMDLavon BMP3M #### [facility] [address] [place] [address] Abs Neutrophile Cnt 11.3 10*3/uL High 1.8-7.0 [facility] Comment on above: Performed By: #### H EMDF BMP3M #### [address] [address] Basophils/100 WBC (Bld) 0.3 % Normal 0.0-2.[address] [facility] Comment on above: Performed By: #### H EMDF BMP3M #### [facility] [address] [place] [address] Eosinophils (Bld) [#/Vol] 0.1 10*3/uL Normal 0.0-0.5 [facility] Comment on above: Performed By: #### H EMDF BMP3M #### [facility] [address] [place] [address] Eosinophils/100 WBC (Bld) 1.1 % Normal 1.0-6.0 [facility] Comment on above: Performed By: #### H EMDLavon BMP3M #### [facility] [address] [place], [place] Erythrocyte distribution width (RBC) [Ratio] 18.1 % High 11.5-14.5 [facility] Comment on above: Performed By: #### Micheal REEVES BMP3M #### [address] Granulocytes/100 WBC (Bld) 84.2 % High 40.0-80.0 [facility] Comment on above: Performed By: #### Micheal REEVES BMP3M #### [address] [place] Hematocrit (Bld) [Volume fraction] 35.7 % Normal 35.0-47.0 [facility] Comment on above: Performed By: #### Micheal REEVES BMP3M #### [address] [place] Hemoglobin (Bld) [Mass/Vol] 11.6 g/dL Low 11.7-16.0 [facility] Comment on above: Performed By: #### Micheal REEVES BMP3M #### [address] [place] Lymphocytes (Bld) [#/Vol] 0.8 10*3/uL Low 1.0-4.3 [facility] Comment on above: Performed By: #### Micheal REEVES BMP3M #### [address] [place] Lymphocytes/100 WBC (Bld) 6.0 % Low 20.0-40.0 [facility] Comment on above: Performed By: #### Micheal REEVES BMP3M #### [address] [place] MCH (RBC) [Entitic mass] 35.4 pg High 26.0-34.0 [facility] Comment on above: Performed By: #### Micheal REEVES BMP3M #### [address] [place] MCHC 32.6 % Normal 32.0-36.0 [facility] Comment on above: Performed By: #### Micheal REEVES BMP3M #### [facility] [address] [place], [place] MCV (RBC) [Entitic vol] 108.5 fL High 79.0-98.[address] [facility] Comment on above: Performed By: #### H LALA BMP3M #### [address] [place] Monocytes (Bld) [#/Vol] 1.1 10*3/uL High 0.0-0.8 [facility] Comment on above: Performed By: #### H LALA BMP3M #### [address] [place] Monocytes/100 WBC (Bld) 8.4 % Normal 2.0-10.[address] [facility] Comment on above: Performed By: #### H LALA BMP3M #### [address] [place], [place] Platelet mean volume (Bld) [Entitic vol] 7.1 fL Low 7.4-12.4 [facility] Comment on above: Result Comment: MPV is a calculated measurement using platelet volume ratio. Performed By: #### H LALA BMP3M #### [address] [place] Platelets (Bld) [#/Vol] 500 10*3/uL High 140-440 [facility] Comment on above: Performed By: #### H LALA BMP3M #### [address] [place] RBC (Bld) [#/Vol] 3.29 10*6/uL Low 3.80-5.20 [facility] Comment on above: Performed By: #### H LALA BMP3M #### [address] [place], [place] WBC (Bld) [#/Vol] 13.4 10*3/uL High 3.6-10.7 [facility] Comment on above: Performed By: #### H LALA BMP3M #### [address] [place] Hepatic Functionon 2 ALP [Catalytic activity/Vol] 94 U/L Normal 38-126 [facility] Comment on above: Result Comment: Slig htly hemolysed, interpret with caution. Performed By: #### H LALA BMP3M #### [facility] [address] [place], [place] ALT [Catalytic activity/Vol] 23 U/L Normal 0-34 [facility] Comment on above: Result Comment: The ALT test is performed by an updated assay method. Please note that the reference intervals have been changed and are now sex specific. Performed By: #### H ALLA BMP3M #### [address] [place] AST [Catalytic activity/Vol] 55 U/L High 15-46 [facility] Comment on above: Result Comment: Slig htly hemolysed, interpret with caution. Performed By: #### H LALA BMP3M #### [address] [place] Bilirubin [Mass/Vol] 0.7 mg/dL Normal 0.2-1.3 [facility] Comment on above: Performed By: #### H LALA BMP3M #### [address] [place] Bilirubin.indirect [Mass/Vol] 0.0 mg/dL Normal 0.0-0.3 [facility] Comment on above: Performed By: #### H LALA BMP3M #### [address] [place] Protein [Mass/Vol] 5.5 g/dL Low 6.3-8.2 [facility] Comment on above: Performed By: #### H LALA BMP3M #### [address] [place] Albumin [Mass/Vol] 3.0 g/dL Low 3.5-5.0 [facility] Comment on above: Performed By: #### H LALA BMP3M #### [address] [place] [address] Hepatic Function Panelon Albumin [Mass/Vol] 3.0 g/dL Low 3.5 - 5 g/dL [facility] ALP (Bld) [Catalytic activity/Vol] 94 U/L 38 - 126 U/L [facility] ALT [Catalytic activity/Vol] 23 U/L 0 - 34 U/L [facility] AST [Catalytic activity/Vol] 55 U/L High 15 - 46 U/L [facility] Bilirubin [Mass/Vol] 0.7 mg/dL 0.2 - 1 .3 mg/dL [facility] Bilirubin.indirect [Mass/Vol] 0.0 mg/dL 0 - 0.3 mg/dL [facility] Free PSA/Total PSA [Mass fraction] 5.5 g/dL Low 6.3 - 8.2 g/dL [facility] Interpretation and review of laboratory results Abnormal [facility] Procalcitoninon 01-05-2022 Procalcitonin 14.05 ng/mL High 0.00-0.09 [facility] Comment on above: Performed By: #### H EMDF, BMP3M #### [address] [address] Interpretation See Below [facility] Interpretation and review of laboratory results Abnormal [facility] Procalcitonin 14.05 ng/mL High 0 - 0.09 ng/mL [facility] XR CHEST PORTABLEon 01-06-20 22 [facility] Work Phone: [facility] Work Phone: Radiology Study observation (narrative) [facility] Work Phone: Add On Lab Teston 01-04-2022 Add On Accepted [facility] Add on test from HISon 01-04 Add on test from HIS Accepted Normal [facility] Comment on above: Result Comment: Spec imen available & acceptable for analysis. Performed By: #### A DDON ####[address] [place] [address] Albumin, Body Fluidon 2021 Fluid Type Thoracentesis Normal [facility] Comment on above: Performed By: #### B MP3M, HEMDF, MG3, PHOS3, PCAL #### [address] [place] Albumin [Mass/Vol] 1.3 g/dL Normal No Range [facility] Comment on above: Performed By: #### B MP3M, HEMDF, MG3, PHOS3, PCAL #### [address] [place], [place] Albumin, Fluid 1.3 g/dL No Range [facility] Fluid Type Thoracentesis [facility] Basic Metabolic Panelon 12-24 Anion gap [Moles/Vol] 8 mmol/L Normal 3-13 [facility] Comment on above: Performed By: #### B MP3M, HEMDF, MG3, PHOS3, PCAL #### [address] [place] Calcium [Mass/Vol] 7.9 mg/dL Low 8.4-10.4 [facility] Comment on above: Performed By: #### B MP3M, HEMDF, MG3, PHOS3, PCAL #### [address] [place], [place] CO2 [Moles/Vol] 22 mmol/L Normal 22-30 [facility] Comment on above: Performed By: #### B MP3M, HEMDF, MG3, PHOS3, PCAL #### [address] [place] Creatinine [Mass/Vol] 0.49 mg/dL Low 0.52-1.25 [facility] Comment on above: Performed By: #### B MP3M, HEMDF, MG3, PHOS3, PCAL #### [address] [place] eGFR OTHER > 90.0 Normal >60 [facility] Comment on above: Result Comment: KDIG O [...] B MP3M, HEMDF, MG3, PHOS3, PCAL #### [address] [address] GFR/1.73 sq M.predicted among blacks MDRD (S/P/Bld) [Vol rate/Area] mL/min/{1.73_m2} Normal >60 [facility] Comment on above: Performed By: #### B MP3M, HEMDF, MG3, PHOS3, PCAL #### [address] [address] Glucose [Mass/Vol] 101 mg/dL High 70-100 [facility] Comment on above: Performed By: #### B MP3M, HEMDF, MG3, PHOS3, PCAL #### [address] [address] Urea nitrogen [Mass/Vol] 10 mg/dL Normal 9-20 [facility] Comment on above: Performed By: #### B MP3M, HEMDF, MG3, PHOS3, PCAL #### [address] [address] Chloride [Moles/Vol] 108 mmol/L High 98-107 [facility] Comment on above: Performed By: #### B MP3M, HEMDF, MG3, PHOS3, PCAL #### [address] [address] Potassium [Moles/Vol] 4.0 mmol/L Normal 3.5-5.1 [facility] Comment on above: Performed By: #### B MP3M, HEMDF, MG3, PHOS3, PCAL #### [facility] [address] [place] [address] Sodium [Moles/Vol] 137 mmol/L Normal 135-145 [facility] Comment on above: Performed By: #### B MP3M, HEMDF, MG3, PHOS3, PCAL #### [facility] [address] [place] [address] Basic Metabolic Panel w/ Ref emmanuel to MGon 01-04-2022 Anion gap [Moles/Vol] 8 mmol/L 3 - 13 mmol/L [facility] Calcium [Mass/Vol] 7.9 mg/dL Low 8.4 - 10. 4 mg/dL [facility] Chloride [Moles/Vol] 108 mmol/L High 98 - 10 7 mmol/L [facility] CO2 [Moles/Vol] 22 mmol/L 22 - 30 mmol/L [facility] Creatinine [Mass/Vol] 0.49 mg/dL Low 0.52 - 1.25 mg/dL [facility] eGFR mL/min 60 - P INF mL/min [facility] EGFR IF NonAfrican Turkmen mL/min 60 - PINF mL/min [facility] Glucose [Mass/Vol] 101 mg/dL High 70 - 100 mg/dL [facility] Interpretation and review of laboratory results Abnormal [facility] Potassium [Moles/Vol] 4.0 mmol/L 3.5 - 5.1 mmol/L [facility] Sodium [Moles/Vol] 137 mmol/L 135 - 145 mmol/L [facility] Urea nitrogen (BldV) [Mass/Vol] 10 mg/dL 9 - 20 mg/dL [facility] CBC with Auto Differentialon [...] [#/Vol] 10.0 10*3/uL 3.6 - 10.7 10*3/uL [facility] CR Chest Portableon 01-05-20 CR Chest Portable Patient Name: JAIMIE MCGOVERN Diagnostic Radiology ACCESSION EXAM DATE/TIME PROCEDURE ORDERING PROVIDER [id number] 01/04/2022 06:30 EDT CR Chest Portable [id number] -NATHALIE, ANEIL CPT code 56310 Reason For Exam (CR Chest Portable) patient [...] Transcribed Date and Time: 01/04/2022 6:36 Normal [facility] Glucose,Bedsideon 01-04-2022 Glucose [Mass/Vol] 157 mg/dL High 70-100 [facility] Work Phone: Comment on above: Result Comment: Test performed by glucose meter. Results may be 10%-15% lower than serum/plasma values. (CLIA ID [id number]) Performed By: #### B GLU #### [place] [address] [place] [address] Glucose [Mass/Vol] 104 mg/dL High 70-100 [facility] Comment on above: Result Comment: Test performed by glucose meter. Results may be 10%-15% lower than serum/plasma values. (CLIA ID [id number]) Performed By: #### H EMDF, BMP3M #### [facility] [address] [place] [address] Glucose [Mass/Vol] 91 mg/dL Normal 70-100 [facility] Comment on above: Result Comment: Test performed by glucose meter. Results may be 10%-15% lower than serum/plasma values. (CLIA ID [id number]) Performed By: #### B GLU ####[facility] [place], [place] Hemogram w/ Autodiffon 01-04 Abs Baso Cnt 0.0 10*3/uL Normal 0.0-0.2 [facility] Comment on above: Performed By: #### B MP3M, HEMDF, MG3, PHOS3, PCAL #### [facility] [address] [place], [place] Abs Neutrophile Cnt 8.3 10*3/uL High 1.8-7.0 [facility] Comment on above: Performed By: #### B MP3M, HEMDF, MG3, PHOS3, PCAL #### [facility] [address] [place], [place] Basophils/100 WBC (Bld) 0.4 % Normal 0.0-2.[address] [facility] Comment on above: Performed By: #### B MP3M, HEMDF, MG3, PHOS3, PCAL #### [place] [address] [place], [place] Eosinophils (Bld) [#/Vol] 0.2 10*3/uL Normal 0.0-0.5 [facility] Comment on above: Performed By: #### B MP3M, HEMDF, MG3, PHOS3, PCAL #### [facility] [address] [place], [place] Eosinophils/100 WBC (Bld) 2.2 % Normal 1.0-6.0 [facility] Comment on above: Performed By: #### B MP3M, HEMDF, MG3, PHOS3, PCAL #### [place] [address], [place] Erythrocyte distribution width (RBC) [Ratio] 17.2 % High 11.5-14.5 [facility] Comment on above: Performed By: #### B MP3M, HEMDF, MG3, PHOS3, PCAL #### [place] [address] [place], [place] Granulocytes/100 WBC (Bld) 83.2 % High 40.0-80.0 [facility] Comment on above: Performed By: #### B MP3M, HEMDF, MG3, PHOS3, PCAL #### [address] Hematocrit (Bld) [Volume fraction] 30.9 % Low 35.0-47.0 [facility] Comment on above: Performed By: #### B MP3M, HEMDF, MG3, PHOS3, PCAL #### [place] [address] [place], [place] Hemoglobin (Bld) [Mass/Vol] 10.7 g/dL Low 11.7-16.0 [facility] Comment on above: Performed By: #### B MP3M, HEMDF, MG3, PHOS3, PCAL #### [address] Lymphocytes (Bld) [#/Vol] 0.7 10*3/uL Low 1.0-4.3 [facility] Comment on above: Performed By: #### B MP3M, HEMDF, MG3, PHOS3, PCAL #### [address] Lymphocytes/100 WBC (Bld) 6.5 % Low 20.0-40.0 [facility] Comment on above: Performed By: #### B MP3M, HEMDF, MG3, PHOS3, PCAL #### [address] MCH (RBC) [Entitic mass] 36.5 pg High 26.0-34.0 [facility] Comment on above: Performed By: #### B MP3M, HEMDF, MG3, PHOS3, PCAL #### [address] MCHC 34.6 % Normal 32.0-36.0 [facility] Comment on above: Performed By: #### B MP3M, HEMDF, MG3, PHOS3, PCAL #### [address] MCV (RBC) [Entitic vol] 105.6 fL High 79.0-98.[address] [facility] Comment on above: Performed By: #### B MP3M, HEMDF, MG3, PHOS3, PCAL #### [place] [address] [place], [place] Monocytes (Bld) [#/Vol] 0.8 10*3/uL Normal 0.0-0.8 [facility] Comment on above: Performed By: #### B MP3M, HEMDF, MG3, PHOS3, PCAL #### [place] [address] [place], [place] Monocytes/100 WBC (Bld) 7.7 % Normal 2.0-10.[address] [facility] Comment on above: Performed By: #### B MP3M, HEMDF, MG3, PHOS3, PCAL #### [place] [address] [place], [place] Platelet mean volume (Bld) [Entitic vol] 7.5 fL Normal 7.4-12.4 [facility] Comment on above: Result Comment: MPV is a calculated measurement using platelet volume ratio. Performed By: #### B MP3M, HEMDF, MG3, PHOS3, PCAL #### [place] [address] [place], [place] Platelets (Bld) [#/Vol] 451 10*3/uL High 140-440 [facility] Comment on above: Performed By: #### B MP3M, HEMDF, MG3, PHOS3, PCAL #### [place] [address] [place], [place] RBC (Bld) [#/Vol] 2.93 10*6/uL Low 3.80-5.20 [facility] Comment on above: Performed By: #### B MP3M, HEMDF, MG3, PHOS3, PCAL #### [place] [address] [place], [place] WBC (Bld) [#/Vol] 10.0 10*3/uL Normal 3.6-10.7 [facility] Comment on above: Performed By: #### B MP3M, HEMDF, MG3, PHOS3, PCAL #### [facility] [address] [place] [address] Magnesiumon 01-04-2022 Magnesium [Mass/Vol] 2.1 mg/dL Normal 1.6-2.3 [facility] Comment on above: Performed By: #### B MP3M, HEMDF, MG3, PHOS3, PCAL #### [facility] [address] [place] [address] Magnesium [Mass/Vol] 2.1 mg/dL 1.6 - 2 .3 mg/dL [facility] No Panel InformationOrdered By: Johnny Salas on 01-04-2022 Interpretation and review of laboratory results Abnormal [facility] Work Phone: [phone] [facility] Work Phone: [phone] Panel Informationon 01-04 [facility] CARDIOLOGY [facility] Radiology Study observation (narrative) [facility] Work Phone: POCT Glucoseon 01-04-2022 Interpretation and review of laboratory results Abnormal [facility] Work Phone: [facility] Work Phone: [facility] Glucose [Mass/Vol] 91 mg/dL 70 - 100 mg/dL [facility] Work Phone: [facility] Work Phone: POCT GlucoseOrdered By: Isra Salas on 01-04-2022 Glucose [Mass/Vol] 104 mg/dL High 70 - 100 mg/dL [facility] Work Phone: Phosphoruson 01-04-2022 Phosphate [Mass/Vol] 4.6 mg/dL High 2.5-4.5 [facility] Comment on above: Performed By: #### B MP3M, HEMDF, MG3, PHOS3, PCAL #### [facility] [address] [place] [address] Interpretation and review of laboratory results Abnormal [facility] Phosphate [Mass/Vol] 4.6 mg/dL High 2.5 - 4 .5 mg/dL [facility] Procalcitoninon 01-04-2022 Procalcitonin 15.03 ng/mL High 0.00-0.09 [facility] Comment on above: Performed By: #### B MP3M, HEMDF, MG3, PHOS3, PCAL #### [facility] [address] [place] [address] Interpretation See Below Normal [facility] Comment on above: Result Comment: PCT <0.50 = Low risk of severe sepsis and/or septic shock. PCT >2.00 = High risk of severe sepsis and/or septic shock. Performed By: #### B MP3M, HEMDF, MG3, PHOS3, PCAL #### [facility] [address] [place] [address] US ABDOMEN LIMITEDon 022 [facility] RAD [facility] Work Phone: US ABDOMEN LIMITEDOrdered By : Froilan Elam on 01-04-2022 [facility] Work Phone: US Abdomen Limitedon 022 US Abdomen Limited Patient Name: JAIMIE MCGOVERN Ultrasound ACCESSION EXAM DATE/TIME PROCEDURE ORDERING PROVIDER [id number] 01/04/2022 16:53 EDT US Abdomen Limited [id number] -PATRICK MELY CPT code 43688 Reason For Exam (US Abdomen Limited) ascites [...] Transcribed Date and Time: 01/04/2022 11:46 Normal [facility] VL DUP LOWER EXTREMITY VENOU S BILATERALon 01-04-2022 [facility] Work Phone: [facility] Work Phone: XR CHEST PORTABLEon 01-05-20 22 [facility] Work Phone: [facility] Work Phone: Basic Metabolic Panelon 12-24 Calcium [Mass/Vol] 7.8 mg/dL Low 8.4-10.4 [facility] Comment on above: Performed By: #### B MP3M, LFT3, HEMDF ####[facility] [employer] [id number] [employer] [place] [address] Anion gap [Moles/Vol] 5 mmol/L Normal 3-13 [facility] Comment on above: Performed By: #### B MP3M, LFT3, HEMDF ####[facility] [employer] [id number] [employer] [place] [address] CO2 [Moles/Vol] 26 mmol/L Normal 22-30 [facility] Comment on above: Performed By: #### B MP3M, LFT3, HEMDF ####[facility] [place] [address] Glucose [Mass/Vol] 99 mg/dL Normal 70-100 [facility] Comment on above: Performed By: #### B MP3M, LFT3, HEMDF ####[facility] [id number] [place] [address] Urea nitrogen [Mass/Vol] 10 mg/dL Normal 9-20 [facility] Comment on above: Performed By: #### B MP3M, LFT3, HEMDF ####[facility] [employer] [id number] [place] [address] Creatinine [Mass/Vol] 0.61 mg/dL Normal 0.52-1.25 [facility] Comment on above: Performed By: #### B MP3M, LFT3, HEMDF ####[facility] [id number] [employer] [place] [address] GFR/1.73 sq M.predicted among blacks MDRD (S/P/Bld) [Vol rate/Area] mL/min/{1.73_m2} Normal >60 [facility] Comment on above: Performed By: #### B MP3M, LFT3, HEMDF ####[place] [place] [address] GFR/1.73 sq M.predicted among non-blacks MDRD (S/P/Bld) [Vol rate/Area] 89.0 mL/min/{1.73_m2} Normal >60 [facility] Comment on above: Result Comment: KDIG O [...] By: #### B MP3M, LFT3, HEMDF ####[address] Chloride [Moles/Vol] 107 mmol/L Normal 98-107 [facility] Comment on above: Performed By: #### Ruchi MP3M, LFT3, HEMDF ####[place] [address] [place], [place] Potassium [Moles/Vol] 3.6 mmol/L Normal 3.5-5.1 [facility] Comment on above: Performed By: #### B MP3M, LFT3, HEMDF ####[place] [place], [place] Sodium [Moles/Vol] 138 mmol/L Normal 135-145 [facility] Comment on above: Performed By: #### B MP3M, LFT3, HEMDF ####[address] [place] [address] Basic Metabolic Panel w/ Ref emmanuel to [...] P INF mL/min [facility] EGFR IF NonAfrican Turkmen 89.0 mL/min 60 - PINF mL/min [facility] [...] [#/Vol] 7.6 10*3/uL 3.6 - 10.7 10*3/uL [facility] CR Chest Portableon 01-04-20 CR Chest Portable Patient Name: JAIMIE MCGOVERN Diagnostic Radiology ACCESSION EXAM DATE/TIME PROCEDURE ORDERING PROVIDER [id number] 01/03/2022 08:23 EDT CR Chest Portable MD MACIEL ANDREW CPT code 10428 Reason For Exam (CR Chest Portable) patient [...] Transcribed Date and Time: 01/03/2022 8:20 Normal [facility] Culture, Body Fluidon 2021 Body Fluid Cult/Smear, Aerobic No growth at 5 days. [facility] Gram Stain Result [facility] Glucose,Bedsideon 01-03-2022 Glucose [Mass/Vol] 115 mg/dL High 70-100 [facility] Comment on above: Result Comment: Test performed by glucose meter. Results may be 10%-15% lower than serum/plasma values. (CLIA ID [id number]) Performed By: #### B GLU #### [facility] [address] [place], [place] Hemogram w/ Autodiffon 01-03 Abs Baso Cnt 0.1 10*3/uL Normal 0.0-0.2 [facility] Comment on above: Performed By: #### B MP3M, LFT3, HEMDF ####[facility] [place], [place] Abs Neutrophile Cnt 6.1 10*3/uL Normal 1.8-7.0 [facility] Comment on above: Performed By: #### B MP3M, LFT3, HEMDF ####[address] [place] [place], [place] Basophils/100 WBC (Bld) 0.8 % Normal 0.0-2.0 [facility] Comment on above: Performed By: #### B MP3M, LFT3, HEMDF ####[address] [place] [place], [place] Eosinophils (Bld) [#/Vol] 0.2 10*3/uL Normal 0.0-0.5 [facility] Comment on above: Performed By: #### B MP3M, LFT3, HEMDF ####[place] [place] [address] Eosinophils/100 WBC (Bld) 2.4 % Normal 1.0-6.0 [facility] Comment on above: Performed By: #### B MP3M, LFT3, HEMDF ####[place] [address] [place] Erythrocyte distribution width (RBC) [Ratio] 17.5 % High 11.5-14.5 [facility] Comment on above: Performed By: #### B MP3M, LFT3, HEMDF ####[address] Granulocytes/100 WBC (Bld) 80.5 % High 40.0-80.0 [facility] Comment on above: Performed By: #### B MP3M, LFT3, HEMDF ####[address] Hematocrit (Bld) [Volume fraction] 32.7 % Low 35.0-47.0 [facility] Comment on above: Performed By: #### B MP3M, LFT3, HEMDF ####[address] [address] Hemoglobin (Bld) [Mass/Vol] 10.8 g/dL Low 11.7-16.0 [facility] Comment on above: Performed By: #### B MP3M, LFT3, HEMDF ####[address] [address] Lymphocytes (Bld) [#/Vol] 0.7 10*3/uL Low 1.0-4.3 [facility] Comment on above: Performed By: #### B MP3M, LFT3, HEMDF ####[address] [address] Lymphocytes/100 WBC (Bld) 8.6 % Low 20.0-40.0 [facility] Comment on above: Performed By: #### B MP3M, LFT3, HEMDF ####[address] [place] [place], [place] MCH (RBC) [Entitic mass] 35.2 pg High 26.0-34.0 [facility] Comment on above: Performed By: #### B MP3M, LFT3, HEMDF ####[address] MCHC 33.0 % Normal 32.0-36.0 [facility] Comment on above: Performed By: #### B MP3M, LFT3, HEMDF ####[place] [place] [place], [place] MCV (RBC) [Entitic vol] 106.8 fL High 79.0-98.[address] [facility] Comment on above: Performed By: #### B MP3M, LFT3, HEMDF ####[address] Monocytes (Bld) [#/Vol] 0.6 10*3/uL Normal 0.0-0.8 [facility] Comment on above: Performed By: #### B MP3M, LFT3, HEMDF ####[address] [place] [place], [place] Monocytes/100 WBC (Bld) 7.7 % Normal 2.0-10.[address] [facility] Comment on above: Performed By: #### B MP3M, LFT3, HEMDF ####[address] Platelet mean volume (Bld) [Entitic vol] 7.6 fL Normal 7.4-12.4 [facility] Comment on above: Result Comment: MPV is a calculated measurement using platelet volume ratio. Performed By: #### B MP3M, LFT3, HEMDF ####[address] [place], [place] Platelets (Bld) [#/Vol] 365 10*3/uL Normal 140-440 [facility] Comment on above: Performed By: #### B MP3M, LFT3, HEMDF ####[place] [place], [place] RBC (Bld) [#/Vol] 3.06 10*6/uL Low 3.80-5.20 [facility] Comment on above: Performed By: #### B MP3M, LFT3, HEMDF ####[address] [place], [place] WBC (Bld) [#/Vol] 7.6 10*3/uL Normal 3.6-10.7 [facility] Comment on above: Performed By: #### B MP3M, LFT3, HEMDF ####[address] [place], [place] Hepatic Functionon 2 ALP [Catalytic activity/Vol] 91 U/L Normal 38-126 [facility] Comment on above: Performed By: #### B MP3M, LFT3, HEMDF ####[address] [place], [place] ALT [Catalytic activity/Vol] 14 U/L Normal 0-34 [facility] Comment on above: Result Comment: The ALT test is performed by an updated assay method. Please note that the reference intervals have been changed and are now sex specific. Performed By: #### B MP3M, LFT3, HEMDF ####[address] [place], [place] AST [Catalytic activity/Vol] 29 U/L Normal 15-46 [facility] Comment on above: Performed By: #### B MP3M, LFT3, HEMDF ####[address] [place], [place] Bilirubin [Mass/Vol] 0.4 mg/dL Normal 0.2-1.3 [facility] Comment on above: Performed By: #### B MP3M, LFT3, HEMDF ####[address] [place], [place] Protein [Mass/Vol] 5.9 g/dL Low 6.3-8.2 [facility] Comment on above: Performed By: #### B MP3M, LFT3, HEMDF ####[facility] [employer] [id number] [place], [place] Bilirubin.indirect [Mass/Vol] 0.0 mg/dL Normal 0.0-0.3 [facility] Comment on above: Performed By: #### B MP3M, LFT3, HEMDF ####[facility] [employer] [id number] [place], [place] Albumin [Mass/Vol] 2.8 g/dL Low 3.5-5.0 [facility] Comment on above: Performed By: #### B MP3M, LFT3, HEMDF ####[facility] [employer] [id number] [place], [place] Hepatic Function Panelon Albumin [Mass/Vol] 2.8 g/dL Low 3.5 - 5 g/dL [facility] ALP (Bld) [Catalytic activity/Vol] 91 U/L 38 - 126 U/L [facility] ALT [Catalytic activity/Vol] 14 U/L 0 - 34 U/L [facility] AST [Catalytic activity/Vol] 29 U/L 15 - 46 U/L [facility] Bilirubin [Mass/Vol] 0.4 mg/dL 0.2 - 1 .3 mg/dL [facility] Bilirubin.indirect [Mass/Vol] 0.0 mg/dL 0 - 0.3 mg/dL [facility] Free PSA/Total PSA [Mass fraction] 5.9 g/dL Low 6.3 - 8.2 g/dL [facility] Lactic Acidon 01-03-2022 Lactate [Moles/Vol] 1.6 mmol/L Normal 0.7-2.0 [facility] Comment on above: Performed By: #### L ACT3 ####[address] Lactate [Moles/Vol] 1.6 mmol/L 0.7 - 2 mmol/L [facility] No Panel Informationon 01-03 Radiology Study observation (narrative) [facility] Work Phone: Interpretation and review of laboratory results Abnormal [facility] POCT GlucoseOrdered By: Corbin Carpio on 01-03-2022 Glucose [Mass/Vol] 115 mg/dL High 70 - 100 mg/dL [facility] Work Phone: Interpretation and review of laboratory results Abnormal [facility] Work Phone: [facility] Work Phone: POCT Glucoseon 01-03-2022 [facility] Procalcitoninon 01-03-2022 Interpretation See Below Normal [facility] Comment on above: Result Comment: PCT <0.50 = Low risk of severe sepsis and/or septic shock. PCT >2.00 = High risk of severe sepsis and/or septic shock. Performed By: #### H EMDF, BMP3M #### [address] [address] VL Venous Duplex US Lower Ex t Bilateralon 01-03-2022 VL Venous Duplex US Lower Ext Bilateral Patient Name: JAIMIE MCGOVERN Ultrasound ACCESSION EXAM DATE/TIME PROCEDURE ORDERING PROVIDER [id number] 01/03/2022 12:07 EDT VL Venous Duplex [place] [id number] -YARIEL BEASLEY Lower Ext Bilateral CPT code 11331 Reason For Exam (VL Venous Duplex US Lower Ext Bilateral) elevated procalcitonin and edema Report [facility] -------- Lower Extremity Venous Duplex Report Patient Olimpia : 1945 Study 01/03/2022 Name: Jaimie (76yrs) Date: Patient [id number] Age: 76 Account: [id number] ID: Gender: F Loc: 6104 BP: Ordering Physician: Yariel Beasley [employer] Installer: Aleja Kevin RDMS, RVT Interpreting Physician: Alex Diop MD -------- Location: [facility] -------- Indications: Elevated procalcitionin and edema. -------- [...] supine position. Images were obtained using a [employer] E10s vascular ultrasound machine. -------- Ultrasound Report Venous [...] + -- (more content not included)... Normal [facility] [employer] System XR CHEST PORTABLEon 01-04-20 22 [facility] Work Phone: XR CHEST PORTABLEOrdered By: Isaaih Pantoja on 01-03-2022 [employer] Work Phone: Basic Metabolic Panelon 12-24 Anion gap [Moles/Vol] 1 mmol/L Low 3-13 [facility] Comment on above: Performed By: #### B GLU #### [facility] [address] [place], [place] Calcium [Mass/Vol] 7.9 mg/dL Low 8.4-10.4 [facility] Comment on above: Performed By: #### B GLU #### [facility] [address] [place], [place] CO2 [Moles/Vol] 26 mmol/L Normal 22-30 [facility] Comment on above: Performed By: #### B GLU #### [facility] [address] [place], [place] Creatinine [Mass/Vol] 0.54 mg/dL Normal 0.52-1.25 [facility] Comment on above: Performed By: #### B GLU #### [facility] [employer] [facility] [address] [place], [place] eGFR OTHER > 90.0 Normal >60 [facility] Comment on above: Result Comment: KDIG O [...] secretion. Performed By: #### B GLU #### [place] [place], [place] GFR/1.73 sq M.predicted among blacks MDRD (S/P/Bld) [Vol rate/Area] mL/min/{1.73_m2} Normal >60 [facility] Comment on above: Performed By: #### B GLU #### [place] [address] Glucose [Mass/Vol] 80 mg/dL Normal 70-100 [facility] Comment on above: Performed By: #### B GLU #### [place] Urea nitrogen [Mass/Vol] 5 mg/dL Low 9-20 [facility] Comment on above: Performed By: #### B GLU #### [place] [address] Chloride [Moles/Vol] 110 mmol/L High 98-107 [facility] Comment on above: Performed By: #### B GLU #### [place] [address] Potassium [Moles/Vol] 3.6 mmol/L Normal 3.5-5.1 [facility] Comment on above: Performed By: #### B GLU #### [place] [address] Sodium [Moles/Vol] 138 mmol/L Normal 135-145 [facility] Comment on above: Performed By: #### B GLU #### [place] [address] [facility] Basic Metabolic PanelOrdered By: Ledy Penn on 01-02-2022 Anion gap [Moles/Vol] 1 mmol/L Low 3 - 13 mmol/L [facility] Calcium [Mass/Vol] 7.9 mg/dL Low 8.4 - 10. 4 mg/dL [facility] Chloride [Moles/Vol] 110 mmol/L High 98 - 10 7 mmol/L [facility] CO2 [Moles/Vol] 26 mmol/L 22 - 30 mmol/L [facility] Creatinine [Mass/Vol] 0.54 mg/dL 0.52 - 1.25 mg/dL [facility] eGFR mL/min 60 - P INF mL/min [facility] EGFR IF NonAfrican Turkmen mL/min 60 - PINF mL/min [facility] Glucose [Mass/Vol] 80 mg/dL 70 - 100 mg/dL [facility] Interpretation and review of laboratory results Abnormal [facility] Potassium [Moles/Vol] 3.6 mmol/L 3.5 - 5.1 mmol/L [facility] Sodium [Moles/Vol] 138 mmol/L 135 - 145 mmol/L [facility] Urea nitrogen (BldV) [Mass/Vol] 5 mg/dL Low 9 - 20 mg/dL [facility] CBC with Auto Differentialon 01-02-2022 Hematocrit (Bld) [Volume fraction] 31.4 % Low 35 - 47 % [facility] Hemoglobin (Bld) [Mass/Vol] 10.4 g/dL Low 11.7 - 16 g/dL [facility] Interpretation and review of laboratory results Abnormal [facility] MCH (RBC) [Entitic mass] 35.0 pg High 26 - 34 pg [facility] MCHC (RBC) [Mass/Vol] 33.0 % 32 - 36 % [facility] MCV (RBC) [Entitic vol] 106.1 fL High 79 - 98 fL [facility] Platelet distribution width (Bld) [Ratio] 17.0 % High 11.5 - 14.5 % [facility] Platelet mean volume (Bld) [Entitic vol] 7.8 fL 7.4 - 12.4 fL [facility] Platelets (Bld) [#/Vol] 268 10*3/uL 140 - 440 10*3/uL [facility] RBC (Bld) [#/Vol] 2.96 10*6/uL Low 3.8 - 5.2 10*6/uL [facility] WBC (Bld) [#/Vol] 7.7 10*3/uL 3.6 - 10.7 10*3/uL [facility] CR Chest Portableon 01-03-20 CR Chest Portable Patient Name: [id number] Diagnostic Radiology ACCESSION EXAM DATE/TIME PROCEDURE ORDERING PROVIDER [id number] 01/02/2022 06:01 EDT CR Chest Portable MD MACIEL ANDREW CPT code 50484 Reason For Exam (CR Chest Portable) patient [...] Transcribed Date and Time: 01/02/2022 7:16 Normal [facility] CULTURE BLOODon 01-02-2022 Microscopic examination of blood, culture CULTURE BLOOD --> Status: F No growth at 5 days. Normal [facility] Comment on above: Performed By: #### B MP3M, HEMDF, MG3, PHOS3, PCAL #### [address] [address] Culture, Bloodon 01-02-2022 Blood Culture, Routine No growth at 5 days. [facility] Work Phone: [facility] Work Phone: Glucose,Bedsideon 01-02-2022 Glucose [Mass/Vol] 100 mg/dL Normal 70-100 [facility] Comment on above: Result Comment: Test performed by glucose meter. Results may be 10%-15% lower than serum/plasma values. (CLIA ID [id number]) Performed By: #### B GLU ####[address] Hemogram w/ Autodiffon 01-02 Erythrocyte distribution width (RBC) [Ratio] 17.0 % High 11.5-14.5 [facility] Comment on above: Performed By: #### DAVID BOBO ####[address] [place], [place] Hematocrit (Bld) [Volume fraction] 31.4 % Low 35.0-47.0 [facility] Comment on above: Performed By: #### DAVID BOBO ####[address] [place], [place] Hemoglobin (Bld) [Mass/Vol] 10.4 g/dL Low 11.7-16.0 [facility] Comment on above: Performed By: #### DAVID BOBO ####[address] [place], [place] MCH (RBC) [Entitic mass] 35.0 pg High 26.0-34.0 [facility] Comment on above: Performed By: #### DAVID BOBO ####[address] [place], [place] MCHC 33.0 % Normal 32.0-36.0 [facility] Comment on above: Performed By: #### DAVID BOBO ####[address] [place], [place] MCV (RBC) [Entitic vol] 106.1 fL High 79.0-98.[address] [facility] Comment on above: Performed By: #### DAVID BOBO ####[address] Platelet mean volume (Bld) [Entitic vol] 7.8 fL Normal 7.4-12.4 [facility] Comment on above: Result Comment: MPV is a calculated measurement using platelet volume ratio. Performed By: #### DAVID BOBO ####[id number] [place], [place] Platelets (Bld) [#/Vol] 268 10*3/uL Normal 140-440 [facility] Comment on above: Performed By: ###DAVID SHERMAN ####[id number] [place], [place] RBC (Bld) [#/Vol] 2.96 10*6/uL Low 3.80-5.20 [facility] Comment on above: Performed By: #### DAVID BOBO ####[address] WBC (Bld) [#/Vol] 7.7 10*3/uL Normal 3.6-10.7 [facility] Comment on above: Performed By: ###DAVID SHERMAN ####[address] Manual Diffon 01-02-2022 Abs Lymph Cnt 0.5 10*3/uL Low 1.1-4.5 [facility] Comment on above: Performed By: #### DAVID BOBO ####[address] Abs Monocyte Cnt 0.5 10*3/uL Normal 0.2-1.1 [facility] Comment on above: Performed By: #### DAVID BOBO ####[id number] [place], [place] Abs Neutrophile Cnt 6.7 10*3/uL Normal 2.2-8.2 [facility] Comment on above: Performed By: ###DAVID SHERMAN ####[id number] [place], [place] Anisocytosis Slight Normal [facility] Comment on above: Performed By: #### DAVID BOBO ####[address] Bands 16 % High 0-3 [facility] Comment on above: Performed By: #### DAVID BOBO ####[address], [place] Brandt Cells Slight Normal [facility] Comment on above: Performed By: #### DAVID BOBO ####[facility] [id number] [place], [place] Lymphocytes 7 % Low 20-40 [facility] Comment on above: Performed By: #### DAVID BOBO ####[facility] [id number] [place], [place] Macrocytosis Slight Normal [facility] Comment on above: Performed By: #### DAVID BOBO ####[facility] [id number] [place], [place] Monocytes 6 % Normal 2-10 [facility] Comment on above: Performed By: #### DAVID BOBO ####[facility] [id number] [place], [place] Ovalocytes Slight Normal [facility] Comment on above: Performed By: #### DAVID BOBO ####[facility] [id number] [place], [place] Poikilocytosis Slight Normal [facility] Comment on above: Performed By: #### DAVID BOBO ####[facility] [id number] [place], [place] Polychromasia Slight Normal [facility] Comment on above: Performed By: #### DAVID BOBO ####[facility] [id number] [place], [place] RBC Morphology ABNORMAL Normal [facility] Comment on above: Performed By: #### DAVID BOBO ####[facility] [address] [place], [place] Seg Neutrophils 71 % Normal 40-80 [facility] Comment on above: Performed By: #### DAVID BOBO ####[facility] [address] [place], [place] Target Cells Slight Normal [facility] Comment on above: Performed By: #### DAVID BOBO ####[address] Tear Drop Forms Slight Normal [facility] Comment on above: Performed By: #### DAVID BOBO ####[address] Toxic Granulation Slight Normal [facility] Comment on above: Performed By: #### DAVID BOBO ####[address] Toxic Vacuoles Slight Normal [facility] Comment on above: Performed By: #### DAVID BOBO ####[address] Abs Baso Cnt 0.0 10*3/uL Normal 0.0-0.2 [facility] Comment on above: Performed By: #### DAVID BOBO ####[address] Abs Eosin Cnt 0.0 10*3/uL Normal 0.0-0.5 [facility] Comment on above: Performed By: #### DAVID BOBO ####[address] Basophils 0 % Normal 0-2 [facility] Comment on above: Performed By: #### DAVID BOBO ####[address] Cells counted 100 Normal [facility] Comment on above: Performed By: #### DAVID BOBO ####[address] Eosinophils 0 % Low 1-6 [facility] Comment on above: Performed By: #### DAVID BOBO ####[address] Manual Differentialon 2021 Absolute Baso # 0.0 10*3/uL 0 - 0.2 10*3/uL [facility] Absolute Eos # 0.0 10*3/uL 0 - 0.5 10*3/uL [facility] Absolute Lymph # 0.5 10*3/uL Low 1.1 - 4.5 10*3/uL [facility] Absolute Aurora # 0.5 10*3/uL 0.2 - 1.1 10*3/uL [facility] Absolute Neut # 6.7 10*3/uL 2.2 - 8.2 10*3/uL [facility] Anisocytosis Slight [facility] Bands 16 % High 0 - 3 % [facility] Basophils/100 WBC (Bld) 0 % 0 - 2 % S [facility] Dunning Cells Slight [facility] Eosinophils/100 WBC (Bld) 0 [...] Toxic Granulation Slight [facility] TOXIC VACUOLES Slight [facility] POCT Glucoseon 01-02-2022 Glucose [Mass/Vol] 100 mg/dL 70 - 100 mg/dL [facility] Work Phone: [phone] [facility] Work Phone: Procalcitoninon 01-02-2022 Procalcitonin 23.68 ng/mL High 0.00-0.09 [facility] Comment on above: Performed By: #### B GLU #### [facility] [address] [place] [address] Interpretation See Below [facility] Interpretation and review of laboratory results Abnormal [facility] Procalcitonin 23.68 ng/mL High 0 - 0.09 ng/mL [facility] XR CHEST PORTABLEon 01-03-20 22 [facility] Work Phone: [facility] Work Phone: Radiology Study observation (narrative) [facility] Work Phone: Basic Metabolic Panelon 09-0 Calcium [Mass/Vol] 7.2 mg/dL Low 8.4-10.4 [facility] Comment on above: Performed By: #### B GLU #### [facility] [address] [place], [place] Glucose [Mass/Vol] 129 mg/dL High 70-100 [facility] Comment on above: Performed By: #### B GLU #### [facility] [address] [place], [place] Urea nitrogen [Mass/Vol] 3 mg/dL Low 9-20 [facility] Comment on above: Performed By: #### B GLU #### [facility] [address] [place], [place] Anion gap [Moles/Vol] 2 mmol/L Low 3-13 [facility] Comment on above: Performed By: #### B GLU #### [facility] [address] [place], [place] CO2 [Moles/Vol] 22 mmol/L Normal 22-30 [facility] Comment on above: Performed By: #### B GLU #### [facility] [address] [place], [place] Creatinine [Mass/Vol] 0.40 mg/dL Low 0.52-1.25 [facility] Comment on above: Performed By: #### B GLU #### [facility] [address] [place], [place] eGFR OTHER > 90.0 Normal >60 [facility] Comment on above: Result Comment: KDIG O [...] secretion. Performed By: #### B GLU #### [facility] [address] [place] [address] GFR/1.73 sq M.predicted among blacks MDRD (S/P/Bld) [Vol rate/Area] mL/min/{1.73_m2} Normal >60 [facility] Comment on above: Performed By: #### B GLU #### [address] [place] [address] Chloride [Moles/Vol] 112 mmol/L High 98-107 [facility] Comment on above: Performed By: #### B GLU #### [address] [place] [address] Potassium [Moles/Vol] 4.1 mmol/L Normal 3.5-5.1 [facility] Comment on above: Performed By: #### B GLU #### [address] [place] [address] Sodium [Moles/Vol] 136 mmol/L Normal 135-145 [facility] Comment on above: Performed By: #### B GLU #### [address] [place] [address] Basic Metabolic Panel w/ Ref emmanuel to MGon 01-01-2022 Anion gap [Moles/Vol] 2 mmol/L Low 3 - 13 mmol/L [facility] Calcium [Mass/Vol] 7.2 mg/dL Low 8.4 - 10. 4 mg/dL [facility] Chloride [Moles/Vol] 112 mmol/L High 98 - 10 7 mmol/L [facility] CO2 [Moles/Vol] 22 mmol/L 22 - 30 mmol/L [facility] Creatinine [Mass/Vol] 0.4 mg/dL Low 0.52 - 1.25 mg/dL [facility] eGFR mL/min 60 - P INF mL/min [facility] EGFR IF NonAfrican Turkmen mL/min 60 - PINF mL/min [facility] Glucose [Mass/Vol] 129 mg/dL High 70 - 100 mg/dL [facility] Potassium [Moles/Vol] 4.1 mmol/L 3.5 - 5.1 [...] [#/Vol] 220 10*3/uL 140 - 440 10*3/uL [facility] RBC (Bld) [#/Vol] 3.05 10*6/uL Low 3.8 - 5.2 10*6/uL [facility] WBC (Bld) [#/Vol] 11.8 10*3/uL High 3.6 - 10.7 10*3/uL [facility] CR Abdomen APon 01-01-2022 CR Abdomen AP Patient Name: JAIMIE MCGOVERN Diagnostic Radiology ACCESSION EXAM DATE/TIME PROCEDURE ORDERING PROVIDER [id number] 01/01/2022 06:10 EDT CR Abdomen AP [id number] -[place]EL [place] CPT code 76926 Reason For Exam (CR Abdomen AP) assess [...] Transcribed Date and Time: 01/01/2022 7:24 Normal [facility] CR Chest Portableon 01-02-20 CR Chest Portable Patient Name: JAIMIE MCGOVERN Diagnostic Radiology ACCESSION EXAM DATE/TIME PROCEDURE ORDERING PROVIDER [id number] 01/01/2022 11:08 EDT CR Chest Portable ISABEL RAHMAN CPT code 75566 Reason For Exam (CR Chest Portable) right [...] NICHOLAS Transcribed Date and Time: 01/01/2022 12:17 [facility] CR Chest Portable Patient Name: JAIMIE MCGOVERN Diagnostic Radiology ACCESSION EXAM DATE/TIME PROCEDURE ORDERING PROVIDER [id number] 01/01/2022 06:10 EDT CR Chest Portable MD MACIEL ANDREW CPT code 72945 Reason For Exam (CR Chest Portable) patient [...] Transcribed Date and Time: 01/01/2022 7:[address] [facility] [address] GUIDED PLEURAL DRAINAGE W CATH PERCon 01-01-2022 [facility] RAD [facility] Work Phone: [facility] Work Phone: CT Insert Cath Pleura w/ Shawanda geon 01-01-2022 CT Insert Cath Pleura w/ Image Patient Name: JAIMIE MCGOVERN Computed Tomography ACCESSION EXAM DATE/TIME PROCEDURE ORDERING PROVIDER [id number] 01/01/2022 10:[address] Insert Cath Pleura w/ [id number] -NATHALIE, ANEIL Image CPT code 79992 Reason For Exam (CT Insert Cath Pleura [...] Subsequently, the tract was dilated. A 12 Georgian pigtail drainage catheter was advanced into position. [...] Transcribed Date and Time: 01/01/2022 10:45 Normal [facility] CULTURE AND STAIN - FLUIDon 01-01-2022 CULTURE AND STAIN - FLUID CULTURE & STAIN - FLUID --> Status: F No growth at 5 days. STAIN GRAM --> Status: F Many polymorphonuclear cells/lpf. No organisms seen. No organisms seen. Normal [facility] Comment on above: Performed By: #### B MP3M, HEMDF, MG3, PHOS3, PCAL #### [facility] [address] [place], [place] Glucose,Bedsideon 01-01-2022 Glucose [Mass/Vol] 125 mg/dL High 70-100 [facility] Comment on above: Result Comment: Test performed by glucose meter. Results may be 10%-15% lower than serum/plasma values. (CLIA ID [id number]) Performed By: #### B GLU ####[id number] [place], [place] Glucose [Mass/Vol] 102 mg/dL High 70-100 [facility] Comment on above: Result Comment: Test performed by glucose meter. Results may be 10%-15% lower than serum/plasma values. (CLIA ID [id number]) Performed By: #### B GLU #### [facility] [address] [place], [place] Glucose [Mass/Vol] 120 mg/dL High 70-100 [facility] Comment on above: Result Comment: Test performed by glucose meter. Results may be 10%-15% lower than serum/plasma values. (CLIA ID [id number]) Performed By: #### B GLU ####[facility] [employer] [id number] [place], [place] Hemogram w/ Autodiffon 01-01 Abs Baso Cnt 0.0 10*3/uL Normal 0.0-0.2 [facility] Comment on above: Performed By: #### B GLU #### [facility] [address] [place], [place] Abs Neutrophile Cnt 10.9 10*3/uL High 1.8-7.0 [facility] Comment on above: Performed By: #### B GLU #### [facility] [address] [place], [place] Basophils/100 WBC (Bld) 0.1 % Normal 0.0-2.[address] [facility] Comment on above: Performed By: #### B GLU #### [facility] [address] [place], [place] Eosinophils (Bld) [#/Vol] 0.0 10*3/uL Normal 0.0-0.5 [facility] Comment on above: Performed By: #### B GLU #### [facility] [address] [place], [place] Eosinophils/100 WBC (Bld) 0.1 % Low 1.0-6.0 [facility] Comment on above: Performed By: #### B GLU #### [facility] [address] [place], [place] Erythrocyte distribution width (RBC) [Ratio] 17.0 % High 11.5-14.5 [facility] Comment on above: Performed By: #### B GLU #### [facility] [address] [place], [place] Granulocytes/100 WBC (Bld) 91.7 % High 40.0-80.0 [facility] Comment on above: Performed By: #### B GLU #### [facility] [address] [place], [place] Hematocrit (Bld) [Volume fraction] 32.4 % Low 35.0-47.0 [facility] Comment on above: Performed By: #### B GLU #### [facility] [address] [place], [place] Hemoglobin (Bld) [Mass/Vol] 10.9 g/dL Low 11.7-16.0 [facility] Comment on above: Performed By: #### B GLU #### [facility] [address] [place], [place] Lymphocytes (Bld) [#/Vol] 0.3 10*3/uL Low 1.0-4.3 [facility] Comment on above: Performed By: #### B GLU #### [facility] [address] [place], [place] Lymphocytes/100 WBC (Bld) 2.3 % Low 20.0-40.0 [facility] Comment on above: Performed By: #### B GLU #### [facility] [address] [place], [place] MCH (RBC) [Entitic mass] 35.8 pg High 26.0-34.0 [facility] Comment on above: Performed By: #### B GLU #### [facility] [address] [place] [address] MCHC 33.7 % Normal 32.0-36.0 [facility] Comment on above: Performed By: #### B GLU #### [facility] [address] [place], [place] MCV (RBC) [Entitic vol] 106.1 fL High 79.0-98.[address] [facility] Comment on above: Performed By: #### B GLU #### [facility] [address] [place], [place] Monocytes (Bld) [#/Vol] 0.7 10*3/uL Normal 0.0-0.8 [facility] Comment on above: Performed By: #### B GLU #### [facility] [address] [place], [place] Monocytes/100 WBC (Bld) 5.8 % Normal 2.0-10.[address] [facility] Comment on above: Performed By: #### B GLU #### [facility] [address] [place], [place] Platelet mean volume (Bld) [Entitic vol] 7.3 fL Low 7.4-12.4 [facility] Comment on above: Result Comment: MPV is a calculated measurement using platelet volume ratio. Performed By: #### B GLU #### [facility] [address] [place] [address] Platelets (Bld) [#/Vol] 220 10*3/uL Normal 140-440 [facility] Comment on above: Performed By: #### B GLU #### [facility] [address] [place], [place] RBC (Bld) [#/Vol] 3.05 10*6/uL Low 3.80-5.20 [facility] Comment on above: Performed By: #### B GLU #### [facility] [address] [place], [place] WBC (Bld) [#/Vol] 11.8 10*3/uL High 3.6-10.7 [facility] Comment on above: Performed By: #### B GLU #### [facility] [address] [place], [place] Hepatic Functionon 2 ALP [Catalytic activity/Vol] 56 U/L Normal 38-126 [facility] Comment on above: Performed By: #### B GLU #### [address] [place], [place] ALT [Catalytic activity/Vol] 12 U/L Normal 0-34 [facility] Comment on above: Result Comment: The ALT test is performed by an updated assay method. Please note that the reference intervals have been changed and are now sex specific. Performed By: #### B GLU #### [facility] [address] [place], [place] AST [Catalytic activity/Vol] 35 U/L Normal 15-46 [facility] Comment on above: Performed By: #### B GLU #### [facility] [address] [place], [place] Bilirubin [Mass/Vol] 1.0 mg/dL Normal 0.2-1.3 [facility] Comment on above: Performed By: #### B GLU #### [facility] [address] [place], [place] Bilirubin.indirect [Mass/Vol] 0.0 mg/dL Normal 0.0-0.3 [facility] Comment on above: Performed By: #### B GLU #### [facility] [address] [place], [place] Protein [Mass/Vol] 5.3 g/dL Low 6.3-8.2 [facility] Comment on above: Performed By: #### B GLU #### [facility] [address] [place] [address] Albumin [Mass/Vol] 2.5 g/dL Low 3.5-5.0 [facility] Comment on above: Performed By: #### B GLU #### [facility] [address] [place] [address] Hepatic Function Panelon Albumin [Mass/Vol] 2.5 g/dL [...] 5.3 g/dL Low 6.3 - 8.2 g/dL [facility] No Panel Informationon 01-01 Radiology Study observation (narrative) [facility] Work Phone: Interpretation and review of laboratory results Abnormal [facility] POCT GlucoseOrdered By: Vamshi Solorio on 01-01-2022 Glucose [Mass/Vol] 125 mg/dL High 70 - 100 mg/dL [facility] Work Phone: Interpretation and review of laboratory results Abnormal [facility] Work Phone: [facility] Work Phone: POCT Glucoseon 01-01-2022 [facility] Glucose [Mass/Vol] 102 mg/dL High 70 - 100 mg/dL [facility] Work Phone: Interpretation and review of laboratory results Abnormal [facility] Work Phone: [facility] Work Phone: Glucose [Mass/Vol] 120 mg/dL High 70 - 100 mg/dL [facility] Work Phone: Interpretation and review of laboratory results Abnormal [facility] Work Phone: [facility] Work Phone: Procalcitoninon 01-01-2022 Interpretation See Below Normal [facility] Comment on above: Result Comment: PCT <0.50 = Low risk of severe sepsis and/or septic shock. PCT >2.00 = High risk of severe sepsis and/or septic shock. Performed By: #### B GLU #### [facility] [address] [place] [address] Staph Aureus Complete Nasalo n 01-01-2022 Staph Aureus Complete Nasal Staph Screen --> Status: F No S. aureus detected. Negative nasal MRSA PCR has a high negative predictive value for MRSA pneumonia. Consider stopping vancomycin if no other clinical indication. Contact Antimicrobial Stewardship for further recommendations. The analytical performance characteristics of this assay have been determined by [employer] in accordance with CLIA regulations. The modifications [...] of this assay have been determined by [employer] in accordance with CLIA regulations. The modifications have not been cleared or approved by the U. S. Food and Drug Administration; however, the FDA has determined that such clearance or approval is not necessary. Normal [facility] Comment on above: Performed By: #### B MP3M, HEMDF, MG3, PHOS3, PCAL #### [facility] [employer] [address] [place] [address] XR ABDOMEN (KUB) (SINGLE AP VIEW)on 01-01-2022 [facility] Work Phone: XR ABDOMEN (KUB) (SINGLE AP VIEW)Ordered By: Ted Sunshine on 01-01-2022 [facility] Work Phone: XR CHEST PORTABLEon 01-02-20 [facility] Work Phone: [phone] [facility] Work Phone: [phone] [facility] Work Phone: [phone] [facility] Work Phone: Basic Metabolic Panelon Calcium [Mass/Vol] 7.4 mg/dL Low 8.4-10.4 [facility] Comment on above: Performed By: #### M G3, LFT3, PCAL, BMP3M ####[facility] [place] [address] Glucose [Mass/Vol] 163 mg/dL High 70-100 [facility] Comment on above: Performed By: #### M G3, LFT3, PCAL, BMP3M ####[facility] [place] [address] Anion gap [Moles/Vol] 2 mmol/L Low 3-13 [facility] Comment on above: Performed By: #### M G3, LFT3, PCAL, BMP3M ####[address] [place] [address] CO2 [Moles/Vol] 23 mmol/L Normal 22-30 [facility] Comment on above: Performed By: #### M G3, LFT3, PCAL, BMP3M ####[facility] [id number] [place] [address] Creatinine [Mass/Vol] 0.49 mg/dL Low 0.52-1.25 [facility] Comment on above: Performed By: #### M G3, LFT3, PCAL, BMP3M ####[facility] [place] [address] eGFR OTHER > 90.0 Normal >60 [facility] Comment on above: Result Comment: KDIG O [...] By: #### M G3, LFT3, PCAL, BMP3M ####[facility] [employer] [id number] [place], [place] GFR/1.73 sq M.predicted among blacks MDRD (S/P/Bld) [Vol rate/Area] mL/min/{1.73_m2} Normal >60 [facility] Comment on above: Performed By: #### M G3, LFT3, PCAL, BMP3M ####[address] Urea nitrogen [Mass/Vol] 5 mg/dL Low 9-20 [facility] Comment on above: Performed By: #### M G3, LFT3, PCAL, BMP3M ####[address] [place], [place] Chloride [Moles/Vol] 111 mmol/L High 98-107 [facility] Comment on above: Performed By: #### M G3, LFT3, PCAL, BMP3M ####[address] [place], [place] Potassium [Moles/Vol] 2.9 mmol/L Low 3.5-5.1 [facility] Comment on above: Performed By: #### M G3, LFT3, PCAL, BMP3M ####[address] [place], [place] Sodium [Moles/Vol] 137 mmol/L Normal 135-145 [facility] Comment on above: Performed By: #### M G3, LFT3, PCAL, BMP3M ####[address] [place] [address] Basic Metabolic Panel w/ Ref emmanuel to [...] P INF mL/min [facility] EGFR IF NonAfrican Turkmen mL/min 60 - PINF mL/min [facility] Glucose [Mass/Vol] 163 mg/dL High 70 - 100 mg/dL [facility] Interpretation and review of laboratory results Abnormal [facility] Potassium [Moles/Vol] 2.9 mmol/L Low 3.5 - 5.1 mmol/L [facility] Sodium [Moles/Vol] 137 mmol/L 135 - 145 mmol/L [facility] Urea nitrogen (BldV) [Mass/Vol] 5 mg/dL Low 9 - 20 mg/dL [facility] CBC with Auto Differentialon [...] 10.6 g/dL Low 11.7 - 16 g/dL [facility] [...] [#/Vol] 7.8 10*3/uL 3.6 - 10.7 10*3/uL [facility] CR Abdomen APon 12-31-2021 CR Abdomen AP Patient Name: JAIMIE MCGOVERN Diagnostic Radiology ACCESSION EXAM DATE/TIME PROCEDURE ORDERING PROVIDER [id number] 12/31/2021 05:51 EDT CR Abdomen AP [id number] -[place] CPT code 68346 Reason For Exam (CR Abdomen AP) assess [...] Transcribed Date and Time: 12/31/2021 7:34 Normal [facility] CR Chest Portableon 01-01-20 CR Chest Portable Patient Name: JAIMIE MCGOVERN [facility]#: [id number] Diagnostic Radiology ACCESSION EXAM DATE/TIME PROCEDURE ORDERING PROVIDER [id number] 12/31/2021 05:51 EDT CR Chest Portable MD MACIEL ANDREW CPT code 02641 Reason For Exam (CR Chest Portable) patient [...] JOHN Transcribed Date and Time: 12/31/2021 7:15 Normal [facility] CTA CHEST ABDOMEN PELVIS W C ONTRASTon 12-31-2021 [facility] Work Phone: [facility] Work Phone: CTA Chest/Abdomen/Pelvis w/ + w/o contraon 12-31-2021 CTA Chest/Abdomen/Pelvis w/ + w/o contra Patient Name: JAIMIE MCGOVERN Computed Tomography ACCESSION EXAM DATE/TIME PROCEDURE ORDERING PROVIDER [id number] 12/31/2021 12:41 EDT CTA Chest/Abdomen/Pelvis [id number] -[place] w/ + w/o contra CPT code 07532 [id number] Reason For Exam (CTA Chest/Abdomen/Pelvis w/ [...] Time: 12/31/2021 3:16 pm Signed by: MD BECERRA WASSIM OSAMA Transcribed Date and Time: 12/31/2021 2:58 Normal [facility] Cytology, Non-Gynon 01-01-20 22 Cytology report Cyto stain.thin prep Doc (Cvx/Vag) SEE BELOW [facility] Glucose, Bedsideon 09-08-202 2 Confirmation see below Normal [facility] Comment on above: Result Comment: No c onfirmation received. Performed By: #### G LUB ####[facility] [address] Glucose,Bedside < 50 Low 70-100 [facility] Comment on above: Result Comment: Test performed by glucose meter. Results may be 10%-15% lower than serum/plasma values. (CLIA ID [id number]) Performed By: #### G LUB ####[facility] [employer] [address] [facility] [place] Glucose,Bedsideon 12-31-2021 Glucose [Mass/Vol] 129 mg/dL High 70-100 [facility] Comment on above: Result Comment: Test performed by glucose meter. Results may be 10%-15% lower than serum/plasma values. (CLIA ID [id number]) Performed By: #### B GLU ####[facility] [employer] [id number] [facility], [place] Glucose [Mass/Vol] 165 mg/dL High 70-100 [facility] Comment on above: Result Comment: Test performed by glucose meter. Results may be 10%-15% lower than serum/plasma values. (CLIA ID [id number]) Performed By: #### B GLU ####[facility] [employer] [id number] [facility], [place] Hemogram w/ Autodiffon 12-31 Abs Baso Cnt 0.0 10*3/uL Normal 0.0-0.2 [facility] Comment on above: Performed By: #### H EMDF ####[facility] [employer] [id number] [facility], [place] Abs Neutrophile Cnt 6.4 10*3/uL Normal 1.8-7.0 [facility] Comment on above: Performed By: #### H EMDF ####[facility] [employer] [id number] [facility], [place] Basophils/100 WBC (Bld) 0.2 % Normal 0.0-2.0 [facility] Comment on above: Performed By: #### H EMDF ####[facility] [address] [place] [address] Eosinophils (Bld) [#/Vol] 0.0 10*3/uL Normal 0.0-0.5 [facility] Comment on above: Performed By: #### H EMDF ####[address] [place] [address] Eosinophils/100 WBC (Bld) 0.2 % Low 1.0-6.0 [facility] Comment on above: Performed By: #### H EMDF ####[address] [address] Granulocytes/100 WBC (Bld) 85.2 % High 40.0-80.0 [facility] Comment on above: Performed By: #### H EMDF ####[address] [address] Lymphocytes (Bld) [#/Vol] 0.4 10*3/uL Low 1.0-4.3 [facility] Comment on above: Performed By: #### H EMDF ####[address] [address] Lymphocytes/100 WBC (Bld) 5.4 % Low 20.0-40.0 [facility] Comment on above: Performed By: #### H EMDF ####[address] [address] Monocytes (Bld) [#/Vol] 0.7 10*3/uL Normal 0.0-0.8 [facility] Comment on above: Performed By: #### H EMDF ####[facility] [employer] [id number] [place] [address] Monocytes/100 WBC (Bld) 9.0 % Normal 2.0-10.0 [facility] Comment on above: Performed By: #### H EMDF ####[facility] [employer] [address] [address] Erythrocyte distribution width (RBC) [Ratio] 16.6 % High 11.5-14.5 [facility] Comment on above: Performed By: #### H EMDF ####[address] [place], [place] Hematocrit (Bld) [Volume fraction] 32.2 % Low 35.0-47.0 [facility] Comment on above: Performed By: #### H EMDF ####[address] [place], [place] Hemoglobin (Bld) [Mass/Vol] 10.6 g/dL Low 11.7-16.0 [facility] Comment on above: Performed By: #### H EMDF ####[address] [place], [place] MCH (RBC) [Entitic mass] 35.2 pg High 26.0-34.0 [facility] Comment on above: Performed By: #### H EMDF ####[address] [place], [place] MCHC 33.1 % Normal 32.0-36.0 [facility] Comment on above: Performed By: #### H EMDF ####[address] MCV (RBC) [Entitic vol] 106.5 fL High 79.0-98.[address] [facility] Comment on above: Performed By: #### H EMDF ####[address] [place], [place] Platelet mean volume (Bld) [Entitic vol] 6.8 fL Low 7.4-12.4 [facility] Comment on above: Result Comment: MPV is a calculated measurement using platelet volume ratio. Performed By: #### H EMDF ####[address] [place], [place] Platelets (Bld) [#/Vol] 193 10*3/uL Normal 140-440 [facility] Comment on above: Performed By: #### H EMDF ####[address] [place], [place] RBC (Bld) [#/Vol] 3.02 10*6/uL Low 3.80-5.20 [facility] Comment on above: Performed By: #### H EMDF ####[facility] [place], [place] WBC (Bld) [#/Vol] 7.8 10*3/uL Normal 3.6-10.7 [facility] Comment on above: Performed By: #### H EMDF ####[address] [place], [place] Hepatic Functionon 2 ALP [Catalytic activity/Vol] 60 U/L Normal 38-126 [facility] Comment on above: Performed By: #### H LALA BMP3M #### [facility] [address] [place], [place] ALT [Catalytic activity/Vol] 12 U/L Normal 0-34 [facility] Comment on above: Result Comment: The ALT test is performed by an updated assay method. Please note that the reference intervals have been changed and are now sex specific. Performed By: #### H LALA BMP3M #### [facility] [address] [place], [place] AST [Catalytic activity/Vol] 40 U/L Normal 15-46 [facility] Comment on above: Performed By: #### H LALA BMP3M #### [facility] [address] [place], [place] Protein [Mass/Vol] 4.8 g/dL Low 6.3-8.2 [facility] Comment on above: Performed By: #### H LALA BMP3M #### [facility] [address] [place], [place] Bilirubin [Mass/Vol] 0.9 mg/dL Normal 0.2-1.3 [facility] Comment on above: Performed By: #### H LALA BMP3M #### [facility] [address] [place], [place] Bilirubin.indirect [Mass/Vol] 0.0 mg/dL Normal 0.0-0.3 [facility] Comment on above: Performed By: #### H EMDLavon, BMP3M #### [facility] [address] [place] [address] Albumin [Mass/Vol] 2.3 g/dL Low 3.5-5.0 [facility] Comment on above: Performed By: #### H MAGDALENA REEVES3M #### [facility] [address] [place] [address] Hepatic Function Panelon Albumin [Mass/Vol] 2.3 g/dL Low 3.5 - 5 g/dL [facility] A ALP (Bld) [Catalytic activity/Vol] 60 U/L 38 - 126 U/L [facility] ALT [Catalytic activity/Vol] 12 U/L 0 - 34 U/L [facility] AST [Catalytic activity/Vol] 40 U/L 15 - 46 U/L [facility] Bilirubin [Mass/Vol] 0.9 mg/dL 0.2 - 1 .3 mg/dL [facility] Bilirubin.indirect [Mass/Vol] 0.0 mg/dL 0 - 0.3 mg/dL [facility] Free PSA/Total PSA [Mass fraction] 4.8 g/dL Low 6.3 - 8.2 g/dL [facility] Interpretation and review of laboratory results Abnormal [facility] MRSA by PCRon 12-31-2021 Staph Aureus Sc [facility] Magnesiumon 12-31-2021 Magnesium [Mass/Vol] 1.9 mg/dL Normal 1.6-2.3 [facility] Comment on above: Performed By: #### H MAGDALENA REEVES3Geronimo #### [facility] [address] [place] [address] Magnesium [Mass/Vol] 1.9 mg/dL 1.6 - 2 .3 mg/dL [facility] No Panel Informationon 12-31 Radiology Study observation (narrative) [facility] Work Phone: POC Glucose, Whole Bloodon 0 12-31-2021 Confirmation see below [facility] Glucose [Mass/Vol] mg/dL Low 70 - 100 mg/dL [facility] Interpretation and review of laboratory results Abnormal [facility] POCT GlucoseOrdered By: Gerda Stiles on 12-31-2021 Glucose [Mass/Vol] 129 mg/dL High 70 - 100 mg/dL [facility] Work Phone: Interpretation and review of laboratory results Abnormal [facility] Work Phone: [facility] Work Phone: POCT Glucoseon 12-31-2021 [facility] PO[facility] GlucoseOrdered By: Cruz Weir on 12-31-2021 Glucose [Mass/Vol] 165 mg/dL High 70 - 100 mg/dL [facility] Work Phone: Interpretation and review of laboratory results Abnormal [facility] Work Phone: [facility] Work Phone: Procalcitoninon 12-31-2021 Procalcitonin 6.23 ng/mL High 0.00-0.09 [facility] Comment on above: Performed By: #### H EMDF, BMP3M #### [facility] [employer] [address] [address] Interpretation See Below [facility] Interpretation and review of laboratory results Abnormal [facility] Procalcitonin 6.23 ng/mL High 0 - 0.09 ng/mL [facility] Interpretation See Below Normal [facility] Comment on above: Result Comment: PCT <0.50 = Low risk of severe sepsis and/or septic shock. PCT >2.00 = High risk of severe sepsis and/or septic shock. Performed By: #### H EMDF, BMP3M #### [address] [address] VL LOWER EXTREMITY BILATERAL VENOUS DUPLEXon 12-31-2021 [facility] Work Phone: VL LOWER EXTREMITY BILATERAL VENOUS DUPLEXOrdered By: Alex Diop on 12-31-2021 [facility] Work Phone: VL Venous Duplex US Lower Ex t Bilateralon 12-31-2021 VL Venous Duplex US Lower Ext Bilateral Patient Name: JAIMIE MCGOVERN Ultrasound ACCESSION EXAM DATE/TIME PROCEDURE ORDERING PROVIDER [id number] 12/31/2021 12:39 EDT VL Venous Duplex [place] [id number] -[place] Lower Ext Bilateral CPT code 74346 Reason For Exam (VL Venous Duplex US Lower Ext Bilateral) edema Report [facility] -------- Lower Extremity Venous Duplex Report Patient Olimpia, : 1945 Study 12/31/2021 Name: Jaimie (76yrs) Date: Patient [id number] Age: 76 Account: [id number] ID: Gender: F Loc: T223 BP: Ordering Physician: Isabel [employer] Installer: Marylou [facility] RVT Interpreting Physician: Alex Diop MD -------- Location: [facility] -------- Indications: Edema left calf. -------- Conclusions [...] supine position. Images were obtained using a [employer] vascular ultrasound machine. -------- Ultrasound Report Venous [...] + + (more content not included)... Normal [employer] XR ABDOMEN (KUB) (SINGLE AP VIEW)on 12-31-2021 [facility] [email or web address] Work Phone: XR ABDOMEN (KUB) (SINGLE AP VIEW)Ordered By: Kisha Becerra on 12-31-2021 [email or web address] Work Phone: XR CHEST PORTABLEon 01-01-20 [facility] [email or web address] RAD [email or web address] Work Phone: XR CHEST PORTABLEOrdered By: Alex Cerrato on 12-31-2021 [facility] Work Phone: Arterial Blood Gaseson 12-30 CO2 [Moles/Vol] 22.7 mmol/L Low 23.0-27.0 [facility] Comment on above: Performed By: #### H EMDF BMP3M #### [facility] [address] [place], [place] HCO3 (Bld) [Moles/Vol] 21.7 mmol/L Normal 21.0-25.0 [facility] Comment on above: Performed By: #### H EMDF BMP3M #### [address] [place], [place] Hemoglobin (Bld) [Mass/Vol] 11.7 g/dL Normal [facility]Only [facility] Comment on above: Performed By: #### H EMDF BMP3M #### [address] [place], [place] Oxygen (Bld) [Partial pressure] 62.1 mm[Hg] Low 80.0-100.0 [facility] Comment on above: Performed By: #### H EMDF BMP3M #### [address] [place] Oxygen saturation in Blood 91.8 % Low 95.0-100.0 [facility] Comment on above: Performed By: #### H EMDF, BMP3M #### [facility] [address] [place], [place] pCO2 32.2 mm[Hg] Low 35.0-45.0 [facility] Comment on above: Performed By: #### H EMDF BMP3M #### [facility] [address] [place], [place] pH 7.446 Normal 7.350-7.450 [facility] Comment on above: Performed By: #### H EMDF, BMP3M #### [facility] [address] [place], [place] Std Base Excess -1.7 mmol/L Normal -3.0-3.0 [facility] Comment on above: Performed By: #### H EMDF, BMP3M #### [facility] [address] [place], [place] FIO2 No data Normal [facility] Comment on above: Performed By: #### H EMDF, BMP3M #### [facility] [address] [place], [place] Basic Metabolic Panelon 09-0 -2021 Anion gap [Moles/Vol] 5 mmol/L Normal 3-13 [facility] Comment on above: Performed By: #### H EMDF, BMP3M #### [facility] [address] [place], [place] Calcium [Mass/Vol] 7.7 mg/dL Low 8.4-10.4 [facility] Comment on above: Performed By: #### H EMDF, BMP3M #### [facility] [address] [place], [place] CO2 [Moles/Vol] 24 mmol/L Normal 22-30 [facility] Comment on above: Performed By: #### H EMDF, BMP3M #### [facility] [address] [place], [place] Creatinine [Mass/Vol] 0.57 mg/dL Normal 0.52-1.25 [facility] Comment on above: Performed By: #### H EMDF, BMP3M #### [facility] [address] [place], [place] eGFR OTHER > 90.0 Normal >60 [facility] Comment on above: Result Comment: KDIG O [...] secretion. Performed By: #### MAGDALENA BOBO3M #### [facility] [address] [place], [place] GFR/1.73 sq M.predicted among blacks MDRD (S/P/Bld) [Vol rate/Area] mL/min/{1.73_m2} Normal >60 [facility] Comment on above: Performed By: #### Micheal REEVES BMP3M #### [facility] [address] [place], [place] Glucose [Mass/Vol] 61 mg/dL Low 70-100 [facility] Comment on above: Performed By: #### Micheal REEVES BMP3M #### [address] [place], [place] Urea nitrogen [Mass/Vol] 8 mg/dL Low 9-20 [facility] Comment on above: Performed By: #### Micheal REEVES BMP3M #### [address] [place], [place] Potassium [Moles/Vol] 2.8 mmol/L Low 3.5-5.1 [facility] Comment on above: Performed By: #### Micheal REEVES BMP3M #### [facility] [address] [place], [place] Sodium [Moles/Vol] 136 mmol/L Normal 135-145 [facility] Comment on above: Performed By: #### Micheal REEVES BMP3M #### [facility] [address] [place] [address] Chloride [Moles/Vol] 107 mmol/L Normal 98-107 [facility] Comment on above: Performed By: #### Micheal REEVES BMP3M #### [facility] [address] [place] [address] Basic Metabolic Panel w/ Ref emmanuel to MGon 12-30-2021 Anion gap [Moles/Vol] 5 mmol/L 3 - 13 mmol/L [facility] Calcium [Mass/Vol] 7.7 mg/dL Low 8.4 - 10. 4 mg/dL [facility] Chloride [Moles/Vol] 107 mmol/L 98 - 10 7 mmol/L [facility] CO2 [Moles/Vol] 24 mmol/L 22 - 30 mmol/L [facility] Creatinine [Mass/Vol] 0.57 mg/dL 0.52 - 1.25 mg/dL [facility] eGFR mL/min 60 - P INF mL/min [facility] EGFR IF NonAfrican Turkmen mL/min 60 - PINF mL/min [facility] Glucose [Mass/Vol] 61 mg/dL Low 70 - 100 mg/dL [facility] Interpretation and review of laboratory results Abnormal [facility] Potassium [Moles/Vol] 2.8 mmol/L Low 3.5 - 5.1 mmol/L [facility] Sodium [Moles/Vol] 136 mmol/L 135 - 145 mmol/L [facility] Urea nitrogen (BldV) [Mass/Vol] 8 mg/dL Low 9 - 20 mg/dL [facility] Blood Gas, Arterialon 2021 Base Excess, Arterial -1.7 mmol/L -3 - 3 mmol/L [facility] Work Phone: CO2 [Moles/Vol] 22.7 mmol/L Low 23 - 27 mmol/L [facility] Work Phone: FIO2 Arterial No data [facility] Work Phone: HCO3 (Bld) [Moles/Vol] 21.7 mmol/L 21 - 25 mmol/L [facility] Work Phone: Hemoglobin (Bld) [Mass/Vol] 11.7 g/dL ScreenOnly [facility] Work Phone: Interpretation and review of laboratory results Abnormal [facility] Work Phone: Oxygen saturation in Blood 91.8 % Low 95 - 100 % [facility] Work Phone: pCO2, Arterial 32.2 mm[Hg] Low 35 - 45 mm[Hg] [facility] Work Phone: pH, Arterial 7.446 [facility] Work Phone: pO2, Arterial 62.1 mm[Hg] Low 80 - 100 mm[Hg] [facility] Work Phone: [facility] Work Phone: CBC with Auto Differentialon 12-30-2021 [...] 10.2 g/dL Low 11.7 - 16 g/dL [facility] Interpretation and review of laboratory results Abnormal [...] 2.80 10*6/uL Low 3.8 - 5.2 10*6/uL [facility] WBC (Bld) [#/Vol] 6.8 10*3/uL 3.6 - 10.7 10*3/uL [facility] CR Abdomen APon 12-30-2021 CR Abdomen AP Patient Name: JAIMIE MCGOVERN Diagnostic Radiology ACCESSION EXAM DATE/TIME PROCEDURE ORDERING PROVIDER [id number] 12/30/2021 07:53 EDT CR Abdomen AP [id number] -[place] CPT code 25745 Reason For Exam (CR Abdomen AP) assess [...] Transcribed Date and Time: 12/30/2021 11:07 Normal [facility] CR Chest Portableon 12-31-19 22 CR Chest Portable Patient Name: JAIMIE MCGOVERN Diagnostic Radiology ACCESSION EXAM DATE/TIME PROCEDURE ORDERING PROVIDER [id number] 12/30/2021 06:05 EDT CR Chest Portable MD MACIEL ANDREW CPT code 19813 Reason For Exam (CR Chest Portable) patient [...] R Transcribed Date and Time: 12/30/2021 7:09 Normal [facility] CULTURE BLOOD (Two)on 2021 Microscopic examination of blood, culture CULTURE BLOOD (Two) --> Status: F Coagulase negative Staphylococcus species DETECTED. Presumptive identification performed using ProsperArray PCR methodology; confirmatory identification to follow. _ The ProsperArray BCID2 PCR Panel can detect the following [...] VIM, and mcr-1. Presumptive identification performed using [employer] Film[employer] PCR methodology; confirmatory identification to follow. _ The ProsperArray BCID2 PCR Panel can detect the following [...] be positive with the same organism. Normal [facility] Comment on above: Performed By: #### C /BLT ####[address] [place] [address] Culture, Blood 2on 2 Blood Culture, Routine Staphylococcus hominis Abnormal [facility] Work Phone: Interpretation and review of laboratory results Abnormal [facility] Work Phone: [facility] Work Phone: EKG 12 Leadon 12-30-2021 [facility] Work Phone: EKG 12 LeadOrdered By: Tiago Moses on 12-30-2021 [facility] Work Phone: Glucose,Bedsideon 12-30-2021 Glucose [Mass/Vol] 141 mg/dL High 70-100 [facility] Comment on above: Result Comment: Test performed by glucose meter. Results may be 10%-15% lower than serum/plasma values. (CLIA ID [id number]) Performed By: #### B GLU ####[address] [place] [address] Glucose [Mass/Vol] 163 mg/dL High 70-100 [facility] Comment on above: Result Comment: Test performed by glucose meter. Results may be 10%-15% lower than serum/plasma values. (CLIA ID [id number]) Performed By: #### B MP3M, HEMDF, MG3, PHOS3, PCAL #### [facility] [address] [place] [address] Glucose [Mass/Vol] 210 mg/dL High 70-100 [facility] Comment on above: Result Comment: Test performed by glucose meter. Results may be 10%-15% lower than serum/plasma values. (CLIA ID [id number]) Performed By: #### B MP3M, HEMDF, MG3, PHOS3, PCAL #### [facility] [address] [place], [place] Glucose [Mass/Vol] 63 mg/dL Low 70-100 [facility] Comment on above: Result Comment: Test performed by glucose meter. Results may be 10%-15% lower than serum/plasma values. (CLIA ID [id number]) Performed By: #### B MP3M, HEMDF, MG3, PHOS3, PCAL #### [facility] [employer] [facility] [address] [place], [place] Glucose [Mass/Vol] 70 mg/dL Normal 70-100 [facility] Comment on above: Result Comment: Test performed by glucose meter. Results may be 10%-15% lower than serum/plasma values. (CLIA ID [id number]) Performed By: #### H EMDF, BMP3M #### [facility] [employer] [facility] [address] [place], [place] Hemogram w/ Autodiffon 12-30 Abs Baso Cnt 0.0 10*3/uL Normal 0.0-0.2 [facility] Comment on above: Performed By: #### H EMDF, BMP3M #### [facility] [address] [place], [place] Abs Neutrophile Cnt 5.5 10*3/uL Normal 1.8-7.0 [facility] Comment on above: Performed By: #### H MAGDALENA REEVES3M #### [address] Basophils/100 WBC (Bld) 0.6 % Normal 0.0-2.[address] [facility] Comment on above: Performed By: #### H LALA BMP3M #### [address] Eosinophils (Bld) [#/Vol] 0.0 10*3/uL Normal 0.0-0.5 [facility] Comment on above: Performed By: #### H LALA BMP3M #### [address] Eosinophils/100 WBC (Bld) 0.3 % Low 1.0-6.0 [facility] Comment on above: Performed By: #### H LALA BMP3M #### [address] Erythrocyte distribution width (RBC) [Ratio] 16.6 % High 11.5-14.5 [facility] Comment on above: Performed By: #### H LALA BMP3M #### [address] Granulocytes/100 WBC (Bld) 80.0 % Normal 40.0-80.0 [facility] Comment on above: Performed By: #### H LALA BMP3M #### [address] Hematocrit (Bld) [Volume fraction] 29.7 % Low 35.0-47.0 [facility] Comment on above: Performed By: #### H LALA BMP3M #### [address] Hemoglobin (Bld) [Mass/Vol] 10.2 g/dL Low 11.7-16.0 [facility] Comment on above: Performed By: #### H LALA BMP3M #### [facility] [address] [place], [place] Lymphocytes (Bld) [#/Vol] 0.7 10*3/uL Low 1.0-4.3 [facility] Comment on above: Performed By: #### H EMDLavon BMP3M #### [facility] [address] [place], [place] Lymphocytes/100 WBC (Bld) 10.0 % Low 20.0-40.0 [facility] Comment on above: Performed By: #### H EMDLavon BMP3M #### [facility] [address] [place], [place] MCH (RBC) [Entitic mass] 36.3 pg High 26.0-34.0 [facility] Comment on above: Performed By: #### H EMDLavon BMP3M #### [address] [place], [place] MCHC 34.2 % Normal 32.0-36.0 [facility] Comment on above: Performed By: #### H EMDLavon BMP3M #### [place] [address] [place] MCV (RBC) [Entitic vol] 106.2 fL High 79.0-98.[address] [facility] Comment on above: Performed By: #### H EMDF BMP3M #### [place] [place], [place] Monocytes (Bld) [#/Vol] 0.6 10*3/uL Normal 0.0-0.8 [facility] Comment on above: Performed By: #### H EMDF BMP3M #### [facility] [address] [place], [place] Monocytes/100 WBC (Bld) 9.1 % Normal 2.0-10.[address] [facility] Comment on above: Performed By: #### H EMDF BMP3M #### [facility] [address] [place], [place] Platelet mean volume (Bld) [Entitic vol] 6.9 fL Low 7.4-12.4 [facility] Comment on above: Result Comment: MPV is a calculated measurement using platelet volume ratio. Performed By: #### H MAGDALENA REEVES3M #### [facility] [address] [place], [place] Platelets (Bld) [#/Vol] 161 10*3/uL Normal 140-440 [facility] Comment on above: Performed By: #### H LALA BMP3M #### [facility] [address] [place], [place] RBC (Bld) [#/Vol] 2.80 10*6/uL Low 3.80-5.20 [facility] Comment on above: Performed By: #### H LALA BMP3M #### [place] [address] [place], [place] WBC (Bld) [#/Vol] 6.8 10*3/uL Normal 3.6-10.7 [facility] Comment on above: Performed By: #### H LALA BMP3M #### [place] [address] [place], [place] Hepatic/Renal Panelon 2021 ALP [Catalytic activity/Vol] 52 U/L Normal 38-126 [facility] Comment on above: Performed By: #### H LALA BMP3M #### [place] [address] [place], [place] ALT [Catalytic activity/Vol] 11 U/L Normal 0-34 [facility] Comment on above: Result Comment: The ALT test is performed by an updated assay method. Please note that the reference intervals have been changed and are now sex specific. Performed By: #### H LALA BMP3M #### [facility] [address] [place], [place] AST [Catalytic activity/Vol] 42 U/L Normal 15-46 [facility] Comment on above: Performed By: #### H LALA BMP3M #### [place] [address] [place] Calcium [Mass/Vol] 7.7 mg/dL Low 8.4-10.4 [facility] Comment on above: Performed By: #### H EMDF, BMP3M #### [facility] [address] [place] [address] Glucose [Mass/Vol] 70 mg/dL Normal 70-100 [facility] Comment on above: Performed By: #### H EMDF, BMP3M #### [facility] [address] [place] [address] Phosphate [Mass/Vol] 3.6 mg/dL Normal 2.5-4.5 [facility] Comment on above: Performed By: #### H EMDF, BMP3M #### [facility] [address] [place] [address] Protein [Mass/Vol] 4.8 g/dL Low 6.3-8.2 [facility] Comment on above: Performed By: #### H EMDF, BMP3M #### [facility] [address] [place] [address] Urea nitrogen [Mass/Vol] 8 mg/dL Low 9-20 [facility] Comment on above: Performed By: #### H EMDF, BMP3M #### [facility] [address] [place] Anion gap [Moles/Vol] 6 mmol/L Normal 3-13 [facility] Comment on above: Performed By: #### H EMDF, BMP3M #### [facility] [address] [place] [address] Bilirubin [Mass/Vol] 1.1 mg/dL Normal 0.2-1.3 [facility] Comment on above: Performed By: #### H EMDF, BMP3M #### [facility] [address] [place] [address] Bilirubin.indirect [Mass/Vol] 0.0 mg/dL Normal 0.0-0.3 [facility] Comment on above: Performed By: #### H EMDF, BMP3M #### [facility] [address] [place] [address] CO2 [Moles/Vol] 23 mmol/L Normal 22-30 [facility] Comment on above: Performed By: #### H LALA BMP3M #### [facility] [address] [place], [place] Creatinine [Mass/Vol] 0.53 mg/dL Normal 0.52-1.25 [facility] Comment on above: Performed By: #### H LALA BMP3M #### [facility] [address] [place], [place] eGFR OTHER > 90.0 Normal >60 [facility] Comment on above: Result Comment: KDIG O [...] Performed By: #### H LALA BMP3M #### [facility] [address] [place], [place] GFR/1.73 sq M.predicted among blacks MDRD (S/P/Bld) [Vol rate/Area] mL/min/{1.73_m2} Normal >60 [facility] Comment on above: Performed By: #### H LALA BMP3M #### [facility] [address] [place], [place] Potassium [Moles/Vol] 2.7 mmol/L Low 3.5-5.1 [facility] Comment on above: Performed By: #### H LALA BMP3M #### [facility] [address] [place], [place] Sodium [Moles/Vol] 136 mmol/L Normal 135-145 [facility] Comment on above: Performed By: #### H EMDF, BMP3M #### [facility] [address] [place] [address] Albumin [Mass/Vol] 2.3 g/dL Low 3.5-5.0 [facility] Comment on above: Performed By: #### H EMDF, BMP3M #### [facility] [address] [place] [address] Chloride [Moles/Vol] 108 mmol/L High 98-107 [facility] Comment on above: Performed By: #### H EMDF, BMP3M #### [facility] [address] [place] [address] Magnesiumon 12-30-2021 Magnesium [Mass/Vol] 1.9 mg/dL Normal 1.6-2.3 [facility] Comment on above: Performed By: #### H EMDF, BMP3M #### [facility] [address] [place] [address] Magnesium [Mass/Vol] 1.9 mg/dL 1.6 - 2 .3 mg/dL [facility] No Panel Informationon 12-30 Interpretation and review of laboratory results Abnormal [facility] Work Phone: [facility] Work Phone: Blood Culture, Routine [employer] Work Phone: Radiology Study observation (narrative) [facility] Work Phone: POCT GlucoseOrdered By: Rock Corbett on 12-30-2021 Glucose [Mass/Vol] 141 mg/dL High 70 - 100 mg/dL [facility] Work Phone: Interpretation and review of laboratory results Abnormal [facility] Work Phone: [facility] Work Phone: POCT Glucoseon 12-30-2021 [facility] Glucose [Mass/Vol] 210 mg/dL High 70 - 100 mg/dL [facility] Work Phone: Glucose [Mass/Vol] 163 mg/dL High 70 - 100 mg/dL [facility] Work Phone: [facility] POCT GlucoseOrdered By: Laura Hilliard on 12-30-2021 Glucose [Mass/Vol] 63 mg/dL Low 70 - 100 mg/dL [facility] Work Phone: Interpretation and review of laboratory results Abnormal [facility] Work Phone: [facility] Work Phone: POCT GlucoseOrdered By: Chidi Brewer on 12-30-2021 Glucose [Mass/Vol] 70 mg/dL 70 - 100 mg/dL [facility] Renal & Liver Profileon Albumin [Mass/Vol] 2.3 [...] P INF mL/min [facility] EGFR IF NonAfrican Turkmen mL/min 60 - PINF mL/min [facility] Free PSA/Total PSA [Mass fraction] 4.8 g/dL Low 6.3 - 8.2 g/dL [facility] Glucose [Mass/Vol] 70 mg/dL 70 - 100 mg/dL [facility] Interpretation and review of laboratory results Abnormal [facility] Phosphate [Mass/Vol] 3.6 mg/dL 2.5 - 4 .5 mg/dL [facility] Potassium [Moles/Vol] 2.7 mmol/L Low 3.5 - 5.1 mmol/L [facility] Sodium [Moles/Vol] 136 mmol/L 135 - 145 mmol/L [facility] Urea nitrogen (BldV) [Mass/Vol] 8 mg/dL Low 9 - 20 mg/dL [facility] Troponinon 12-30-2021 Interpretation and review of laboratory results Abnormal [facility] Work Phone: Troponin I.cardiac [Mass/Vol] 0.124 ng/mL High 0 - 0.034 ng/mL [facility] Work Phone: [facility] Work Phone: Troponin Ion 12-30-2021 Troponin I.cardiac [Mass/Vol] 0.124 ng/mL High 0.000-0.034 [facility] Comment on above: Result Comment: . Performed By: #### B MP3M, HEMDF, MG3, PHOS3, PCAL #### [facility] [address] [place] [address] US GUIDE THORACENTESISon [facility] Work Phone: US GUIDE THORACENTESISOrdere d By: Quinn Pastor on 12-30-2021 [facility] Work Phone: Vitamin B12on 12-30-2021 Cobalamin (Vitamin B12) [Mass/Vol] 459 pg/mL Normal 239-931 [facility] Comment on above: Performed By: #### H EMDF, BMP3M #### [facility] [address] [place] [address] Cobalamin (Vitamin B12) [Mass/Vol] 459 pg/mL 239 - 931 pg/mL [facility] XR ABDOMEN (KUB) (SINGLE AP VIEW)on 12-30-2021 [facility] Work Phone: XR ABDOMEN (KUB) (SINGLE AP VIEW)Ordered By: Faheem Mahajan on 12-30-2021 [facility] Work Phone: XR CHEST PORTABLEon 12-31-19 [facility] RAD [facility] Work Phone: XR CHEST PORTABLEOrdered By: Darlene Carlin on 12-30-2021 [facility] Work Phone: Ammoniaon 12-29-2021 Ammonia (P) [Mass/Vol] ug/dL Normal 9-30 [facility] Comment on above: Performed By: #### B MP3M, HEMDF, MG3, PHOS3, PCAL #### [address] [place], [place] Ammonia (P) [Mass/Vol] ug/dL 9 - 30 umol/L [facility] Work Phone: [facility] Work Phone: Arterial Respiratory Panel - Rapid Responseon 12-29-2021 Base Excess -2.3 mmol/L Normal -3.0-3.0 [facility] Comment on above: Performed By: #### B MP3M, HEMDF, MG3, PHOS3, PCAL #### [address] [place], [place] CO2 [Moles/Vol] 21.9 mmol/L Low 23.0-27.0 [facility] Comment on above: Performed By: #### B MP3M, HEMDF, MG3, PHOS3, PCAL #### [address] [place] HCO3 (Bld) [Moles/Vol] 20.9 mmol/L Low 21.0-25.[address] [facility] Comment on above: Performed By: #### B MP3M, HEMDF, MG3, PHOS3, PCAL #### [address] [address] [place], [place] Hematocrit, Whole Blood 40 % Normal 37-[address] [facility] Comment on above: Result Comment: Perf ormed by CLIA ID: [id number] [place], [place] Performed By: #### B MP3M, HEMDF, MG3, PHOS3, PCAL #### [address], [place] Oxygen (Bld) [Partial pressure] 64.8 mm[Hg] Low 80.0-100.0 [facility] Comment on above: Performed By: #### B MP3M, HEMDF, MG3, PHOS3, PCAL #### [address] [place] Oxygen saturation in Blood 93.3 % Low 95.0-100.0 [facility] Comment on above: Performed By: #### B MP3M, HEMDF, MG3, PHOS3, PCAL #### [address] [place], [place] pCO2 31.1 mm[Hg] Low 35.0-45.0 [facility] Comment on above: Performed By: #### B MP3M, HEMDF, MG3, PHOS3, PCAL #### [address] [place], [place] pH 7.436 Normal 7.350-7.450 [facility] Comment on above: Performed By: #### B MP3M, HEMDF, MG3, PHOS3, PCAL #### [address] [place] Potassium [Moles/Vol] 3.4 mmol/L Normal 3.4-5.1 [facility] Comment on above: Performed By: #### B MP3M, HEMDF, MG3, PHOS3, PCAL #### [address] Sodium [Moles/Vol] 135 mmol/L Normal 133-145 [facility] Comment on above: Performed By: #### B MP3M, HEMDF, MG3, PHOS3, PCAL #### [address] [address] [place], [place] Basic Metabolic Panelon 09-0 -2021 Anion gap [Moles/Vol] 6 mmol/L Normal 3-13 [facility] Comment on above: Performed By: #### B MP3M, HEMDF, MG3, PHOS3, PCAL #### [facility] [address] [place], [place] Calcium [Mass/Vol] 8.1 mg/dL Low 8.4-10.4 [facility] Comment on above: Performed By: #### B MP3M, HEMDF, MG3, PHOS3, PCAL #### [facility] [address] [place], [place] CO2 [Moles/Vol] 23 mmol/L Normal 22-30 [facility] Comment on above: Performed By: #### B MP3M, HEMDF, MG3, PHOS3, PCAL #### [address] [place] Glucose [Mass/Vol] 104 mg/dL High 70-100 [facility] Comment on above: Performed By: #### B MP3M, HEMDF, MG3, PHOS3, PCAL #### [address] Urea nitrogen [Mass/Vol] 7 mg/dL Low 9-20 [facility] Comment on above: Performed By: #### B MP3M, HEMDF, MG3, PHOS3, PCAL #### [address] Creatinine [Mass/Vol] 0.50 mg/dL Low 0.52-1.25 [facility] Comment on above: Performed By: #### B MP3M, HEMDF, MG3, PHOS3, PCAL #### [facility] [address] [place], [place] eGFR OTHER > 90.0 Normal >60 [facility] Comment on above: Result Comment: KDIG O [...] B MP3M, HEMDF, MG3, PHOS3, PCAL #### [address] GFR/1.73 sq M.predicted among blacks MDRD (S/P/Bld) [Vol rate/Area] mL/min/{1.73_m2} Normal >60 [facility] Comment on above: Performed By: #### B MP3M, HEMDF, MG3, PHOS3, PCAL #### [address] [address] [place], [place] Potassium [Moles/Vol] 3.4 mmol/L Low 3.5-5.1 [facility] Comment on above: Performed By: #### B MP3M, HEMDF, MG3, PHOS3, PCAL #### [address] Sodium [Moles/Vol] 136 mmol/L Normal 135-145 [facility] Comment on above: Performed By: #### B MP3M, HEMDF, MG3, PHOS3, PCAL #### [address] [address] [place], [place] Chloride [Moles/Vol] 107 mmol/L Normal 98-107 [facility] Comment on above: Performed By: #### B MP3M, HEMDF, MG3, PHOS3, PCAL #### [address] Basic Metabolic Panel w/ Ref emmanuel to MGon 12-29-2021 Anion gap [Moles/Vol] 6 mmol/L 3 - 13 mmol/L [facility] Work Phone: Calcium [Mass/Vol] 8.1 mg/dL Low 8.4 - 10. 4 mg/dL [email or web address] Work Phone: Chloride [Moles/Vol] 107 mmol/L 98 - 10 7 mmol/L [email or web address] Work Phone: CO2 [Moles/Vol] 23 mmol/L 22 - 30 mmol/L [email or web address] Work Phone: [phone] Creatinine [Mass/Vol] 0.5 mg/dL Low 0.52 - 1.25 mg/dL [email or web address] Work Phone: eGFR mL/min 60 - P INF mL/min [email or web address] Work Phone: EGFR IF NonAfrican Turkmen mL/min 60 - PINF mL/min [employer] Work Phone: [phone] Glucose [Mass/Vol] 104 mg/dL High 70 - 100 mg/dL [facility] Work Phone: [phone] Potassium [Moles/Vol] 3.4 mmol/L Low 3.5 - 5.1 mmol/L [facility] Work Phone: [phone] Sodium [Moles/Vol] 136 mmol/L 135 - 145 mmol/L [facility] Work Phone: [phone] Urea nitrogen (BldV) [Mass/Vol] 7 mg/dL Low 9 - 20 mg/dL [facility] Work Phone: Body Fluid Cell Count with D ifferentialon 12-29-2021 Fluid Type Thoracentesis [facility] Nucl Cell, Fluid 6336 {cells}/uL [facility] RED BLOOD CELLS, BODY FLUID 19485 {RBC}/uL [facility] CBC with Auto Differentialon 12-29-2021 Absolute Baso # 0.0 10*3/uL 0 - 0.2 10*3/uL [facility] Absolute Neut # 9.8 10*3/uL High 1.8 [...] [Mass/Vol] 12.1 g/dL 11.7 - 16 g/dL [facility] Interpretation and review of laboratory results Abnormal [...] [#/Vol] 10.6 10*3/uL 3.6 - 10.7 10*3/uL [facility] CR Abdomen APon 12-29-2021 CR Abdomen AP Patient Name: JAIMIE MCGOVERN Diagnostic Radiology ACCESSION EXAM DATE/TIME PROCEDURE ORDERING PROVIDER [id number] 12/29/2021 10:58 EDT CR Abdomen AP [id number] -NATHALIE, ANEIL CPT code 20306 Reason For Exam (CR Abdomen AP) distention, [...] Transcribed Date and Time: 12/29/2021 11:13 Normal [facility] CR Chest Portableon 12-30-19 CR Chest Portable Patient Name: JAIMIE MCGOVERN Diagnostic Radiology ACCESSION EXAM DATE/TIME PROCEDURE ORDERING PROVIDER [id number] 12/29/2021 05:47 EDT CR Chest Portable [id number] HURLEY CPT code 50438 Reason For Exam (CR Chest Portable) pneumomediastinum [...] Transcribed Date and Time: 12/29/2021 8:11 Normal [facility] CR Chest Portable Patient Name: JAIMIE MCGOVERN Diagnostic Radiology ACCESSION EXAM DATE/TIME PROCEDURE ORDERING PROVIDER [id number] 12/29/2021 00:49 EDT CR Chest Portable MD MACIEL ANDREW CPT code 24842 Reason For Exam (CR Chest Portable) patient with desaturation and tacypnea Report Chest one view HISTORY: Desaturation Right IJ central line. Moderate right pleural effusion. Adjacent right lower lung infiltrate. Cardiomegaly. Report Dictated on Final Dictated: 12/29/2021 0:47 am Dictating Physician: MD LIAO MALAY Signed Date and Time: 12/29/2021 0:47 am Signed by: MD LIAO MALAY Transcribed Date and Time: 12/29/2021 0:47 Normal [facility] CULTURE AND STAIN - FLUIDon 12-29-2021 CULTURE AND STAIN - FLUID CULTURE & STAIN - FLUID --> Status: F No growth at 5 days. STAIN GRAM --> Status: F Many polymorphonuclear cells/lpf. No organisms seen. No organisms seen. Normal [facility] Comment on above: Performed By: #### B MP3M, HEMDF, MG3, PHOS3, PCAL #### [facility] [address] [place] [address] Cell Count,Body Fluidon Nucleated Cells 6336 {cells}/uL Normal [facility] Comment on above: Order Comment: rt. t hora ev=362 ml Performed By: #### B GLU #### [facility] [address] [place], [place] [address] {RBC}/uL Normal [facility] Comment on above: Order Comment: rt. t hora tg=498 ml Performed By: #### B GLU #### [facility] [address] [place] [address] Fluid Type Thoracentesis Normal [facility] Comment on above: Order Comment: rt. t hora vb=694 ml Performed By: #### B GLU #### [facility] [address] [place] [address] Differential, Body Fluidon 0 12-29-2021 Differential Count 100 [facility] Monocytes/100 WBC (Bld) 1 % S [facility] Neutrophils/100 WBC (Bld) 99 % [facility] Differential,Body Fluidson 0 12-29-2021 Monocytes/100 WBC (Bld) 1 % Normal [facility] Comment on above: Order Comment: rt. t hora lm=304 ml Performed By: #### B MP3M, HEMDF, MG3, PHOS3, PCAL #### [facility] [address] [place] [address] Neutrophils/100 WBC (Bld) 99 % Normal [facility] Comment on above: Order Comment: rt. t hora tc=470 ml Performed By: #### B MP3M, HEMDF, MG3, PHOS3, PCAL #### [facility] [address] [place] [address] Cells Counted for Diff 100 Normal [facility] Comment on above: Order Comment: rt. t hora vo=690 ml Performed By: #### B MP3M, HEMDF, MG3, PHOS3, PCAL #### [facility] [address] [place] [address] EKG 12 Leadon 12-29-2021 [facility] Work Phone: [facility] Work Phone: [facility] Work Phone: EKG 12 LeadOrdered By: Phoebe Mccracken on 12-29-2021 [facility] Work Phone: Hemogram w/ Autodiffon 12-29 Abs Baso Cnt 0.0 10*3/uL Normal 0.0-0.2 [facility] Comment on above: Performed By: #### B MP3M, HEMDF, MG3, PHOS3, PCAL #### [facility] [address] [place] [address] Abs Neutrophile Cnt 9.8 10*3/uL High 1.8-7.0 [facility] Comment on above: Performed By: #### B MP3M, HEMDF, MG3, PHOS3, PCAL #### [facility] [address] [place] [address] Basophils/100 WBC (Bld) 0.4 % Normal 0.0-2.[address] [facility] Comment on above: Performed By: #### B MP3M, HEMDF, MG3, PHOS3, PCAL #### [address] [address] [place], [place] Eosinophils (Bld) [#/Vol] 0.0 10*3/uL Normal 0.0-0.5 [facility] Comment on above: Performed By: #### B MP3M, HEMDF, MG3, PHOS3, PCAL #### [address] [address] [place], [place] Eosinophils/100 WBC (Bld) 0.1 % Low 1.0-6.0 [facility] Comment on above: Performed By: #### B MP3M, HEMDF, MG3, PHOS3, PCAL #### [address] Erythrocyte distribution width (RBC) [Ratio] 16.8 % High 11.5-14.5 [facility] Comment on above: Performed By: #### B MP3M, HEMDF, MG3, PHOS3, PCAL #### [address] Granulocytes/100 WBC (Bld) 92.0 % High 40.0-80.0 [facility] Comment on above: Performed By: #### B MP3M, HEMDF, MG3, PHOS3, PCAL #### [address] Hematocrit (Bld) [Volume fraction] 35.3 % Normal 35.0-47.0 [facility] Comment on above: Performed By: #### B MP3M, HEMDF, MG3, PHOS3, PCAL #### [address] Hemoglobin (Bld) [Mass/Vol] 12.1 g/dL Normal 11.7-16.0 [facility] Comment on above: Performed By: #### B MP3M, HEMDF, MG3, PHOS3, PCAL #### [address] Lymphocytes (Bld) [#/Vol] 0.4 10*3/uL Low 1.0-4.3 [facility] Comment on above: Performed By: #### B MP3M, HEMDF, MG3, PHOS3, PCAL #### [address] Lymphocytes/100 WBC (Bld) 3.5 % Low 20.0-40.0 [facility] Comment on above: Performed By: #### B MP3M, HEMDF, MG3, PHOS3, PCAL #### [address] [place] MCH (RBC) [Entitic mass] 36.6 pg High 26.0-34.0 [facility] Comment on above: Performed By: #### B MP3M, HEMDF, MG3, PHOS3, PCAL #### [address] [place] MCHC 34.2 % Normal 32.0-36.0 [facility] Comment on above: Performed By: #### B MP3M, HEMDF, MG3, PHOS3, PCAL #### [address] [place] MCV (RBC) [Entitic vol] 106.9 fL High 79.0-98.[address] [facility] Comment on above: Performed By: #### B MP3M, HEMDF, MG3, PHOS3, PCAL #### [address] [place] Monocytes (Bld) [#/Vol] 0.4 10*3/uL Normal 0.0-0.8 [facility] Comment on above: Performed By: #### B MP3M, HEMDF, MG3, PHOS3, PCAL #### [address] [address] [place], [place] Monocytes/100 WBC (Bld) 4.0 % Normal 2.0-10.[address] [facility] Comment on above: Performed By: #### B MP3M, HEMDF, MG3, PHOS3, PCAL #### [address] Platelet mean volume (Bld) [Entitic vol] 6.7 fL Low 7.4-12.4 [facility] Comment on above: Result Comment: MPV is a calculated measurement using platelet volume ratio. Performed By: #### B MP3M, HEMDF, MG3, PHOS3, PCAL #### [address] [place] Platelets (Bld) [#/Vol] 178 10*3/uL Normal 140-440 [facility] Comment on above: Performed By: #### B MP3M, HEMDF, MG3, PHOS3, PCAL #### [address] [place] RBC (Bld) [#/Vol] 3.30 10*6/uL Low 3.80-5.20 [facility] Comment on above: Performed By: #### B MP3M, HEMDF, MG3, PHOS3, PCAL #### [address] [place] WBC (Bld) [#/Vol] 10.6 10*3/uL Normal 3.6-10.7 [facility] Comment on above: Performed By: #### B MP3M, HEMDF, MG3, PHOS3, PCAL #### [address] [place] LDHon 12-29-2021 LDH 199 U/L Normal 120-246 [facility] Comment on above: Performed By: #### H EMDF, BMP3M #### [address] [place] LDH, Body Fluidon 12-29-2021 LDH, Body Fluid 1025 U/L Normal No Range [facility] Comment on above: Order Comment: rt. t hora rx=699 ml Performed By: #### B GLU #### [address] [place] LEGIONELLA AG, URINEon 12-29 LEGIONELLA AG, URINE Not detected Normal [facility] Comment on above: Performed By: #### B MP3M, HEMDF, MG3, PHOS3, PCAL #### [address] [address] Lactate Dehydrogenaseon 09 LD 199 U/L 120 - 246 U/L [facility] Lactate Dehydrogenase, Body Fluidon 12-29-2021 LD, Fluid 1025 U/L No Range [facility] Lactic Acidon 12-29-2021 Lactate [Moles/Vol] 1.0 mmol/L Normal 0.7-2.0 [facility] Comment on above: Performed By: #### B MP3M, HEMDF, MG3, PHOS3, PCAL #### [address] [address] Lactate [Moles/Vol] 1 mmol/L 0.7 - 2 mmol/L [facility] Lactate [Moles/Vol] 2.1 mmol/L Critically high 0.7-2.0 [facility] Comment on above: Performed By: #### B MP3M, HEMDF, MG3, PHOS3, PCAL #### [address] [address] Lactate [Moles/Vol] 2.1 mmol/L Critically high 0.7 - 2 mmol/L [facility] Legionella Antigen, Urineon 12-29-2021 LEGIONELLA ANTIGEN Not detected [facility] Work Phone: Magnesiumon 12-29-2021 Magnesium [Mass/Vol] 1.6 mg/dL Normal 1.6-2.3 [facility] Comment on above: Performed By: #### B MP3M, HEMDF, MG3, PHOS3, PCAL #### [address] [address] Magnesium [Mass/Vol] 1.6 mg/dL 1.6 - 2 .3 mg/dL [facility] Work Phone: [facility] Work Phone: Medical Cytologyon 2 Medical Cytology [facility] [id number] DEPARTMENT OF PATHOLOGY AND [facility] LABORATORY MEDICINE [address] [place] [address] FINAL MEDICAL CYTOLOGY REPORT NAME: JAIMIE MCGOVERN : 1945 76 Y F BILLING NO.: [id number] LOCATION: 1T2I T2 INPAT T223 PROCEDURE 12/29/2021 DATE: PHYSICIAN: [...] characteristics determined by the clinical [facility]. They have not been cleared by [...] negativity on decalcified specimens. Case reviewed at [facility] [address] [place] [address]. DEPARTMENT OF PATHOLOGY AND LABORATORY MEDICINE [place], [place] [address] [email or web address] Normal [facility] No Panel Informationon 12-29 [facility] Work Phone: Radiology Study observation (narrative) [facility] Work Phone: Interpretation and review of laboratory results Abnormal [facility] Interpretation and review of laboratory results Abnormal [facility] POC Arterial Respiratory Pastor el - Rapid Responseon 12-29-2021 Base Excess, Arterial -2.3 mmol/L -3 - 3 mmol/L [facility] CO2 [Moles/Vol] 21.9 mmol/L Low 23 - 27 mmol/L [facility] HCO3 (Bld) [Moles/Vol] 20.9 mmol/L Low 21 - 25 mmol/L [facility] Hematocrit (Bld) [Volume fraction] 40 % 37 - 52 % [facility] Oxygen saturation in Blood 93.3 % Low 95 - 100 % [facility] pCO2, Arterial 31.1 mm[Hg] Low 35 - 45 mm[Hg] [facility] pH, Arterial 7.436 [facility] pO2, Arterial 64.8 mm[Hg] Low 80 - 100 mm[Hg] [facility] Potassium [Moles/Vol] 3.4 mmol/L 3.4 - 5.1 mmol/L [facility] Sodium [Moles/Vol] 135 mmol/L 133 - 145 mmol/L [facility] Procalcitoninon 12-29-2021 Procalcitonin 3.68 ng/mL High 0.00-0.09 [facility] Comment on above: Performed By: #### B MP3M, HEMDF, MG3, PHOS3, PCAL #### [facility] [address] [place] [address] Interpretation See Below [facility] Work Phone: Interpretation and review of laboratory results Abnormal [facility] Work Phone: [phone] Procalcitonin 3.68 ng/mL High 0 - 0.09 ng/mL [facility] Work Phone: [phone] [facility] Work Phone: Interpretation See Below Normal [facility] Comment on above: Result Comment: PCT <0.50 = Low risk of severe sepsis and/or septic shock. PCT >2.00 = High risk of severe sepsis and/or septic shock. Performed By: #### B MP3M, HEMDF, MG3, PHOS3, PCAL #### [facility] [address] [place] [address] Protein, Totalon 12-29-2021 Free PSA/Total PSA [Mass fraction] 5.5 g/dL Low 6.3 - 8.2 g/dL [facility] Interpretation and review of laboratory results Abnormal [facility] Protein, Total Body Fluidon 12-29-2021 Protein,Total-Body Fld 2.9 g/dL Normal No Range [facility] Comment on above: Order Comment: rt. t hora fq=035 ml Performed By: #### B GLU #### [facility] [address] [place] [address] STREP PNEUMO ANTIGEN, URINEo n 12-29-2021 STREP PNEUMO ANTIGEN, URINE Not detected Normal [facility] Comment on above: Performed By: #### B MP3M, HEMDF, MG3, PHOS3, PCAL #### [facility] [address] [place] [address] Strep Pneumoniae Antigenon 0 12-29-2021 STREP PNEUMONIAE ANTIGEN, URINE Not detected [facility] Work Phone: TSHon 12-29-2021 TSH Qn 2.263 u[IU]/mL 0.465 - 4.68 u[IU]/mL [facility] Work Phone: [phone] [facility] Work Phone: [phone] Thyroid Stim. Hormoneon 09-0 Thyroid Stim. Hormone 2.263 u[IU]/mL Normal 0.465-4.68 0 [facility] Comment on above: Performed By: #### B MP3M, HEMDF, MG3, PHOS3, PCAL #### [facility] [address] [place] [address] Total Proteinon 12-29-2021 Protein [Mass/Vol] 5.5 g/dL Low 6.3-8.2 [facility] Comment on above: Performed By: #### H EMDF, BMP3M #### [address] [place] [address] Total Protein, Fluidon 12-29 Fluid Type Thoracentesis [facility] Protein, body fluid 2.9 g/dL No Range [facility] Troponinon 12-29-2021 Interpretation and review of laboratory results Abnormal [facility] Work Phone: [phone] Troponin I.cardiac [Mass/Vol] 0.156 ng/mL High 0 - 0.034 ng/mL [facility] Work Phone: [phone] [facility] Work Phone: [phone] Interpretation and review of laboratory results Abnormal [facility] Work Phone: [phone] Troponin I.cardiac [Mass/Vol] 0.162 ng/mL High 0 - 0.034 ng/mL [facility] Work Phone: [phone] [facility] Work Phone: [phone] Interpretation and review of laboratory results Abnormal [facility] Work Phone: [phone] Troponin I.cardiac [Mass/Vol] 0.039 ng/mL High 0 - 0.034 ng/mL [facility] Work Phone: [phone] [facility] Work Phone: Troponin Ion 12-29-2021 Troponin I.cardiac [Mass/Vol] 0.156 ng/mL High 0.000-0.034 [facility] [employer] [facility] Comment on above: Result Comment: . Performed By: #### H EMDF, BMP3M #### [employer] [address] [place], [place] Troponin I.cardiac [Mass/Vol] 0.162 ng/mL High 0.000-0.034 [facility] Comment on above: Result Comment: . Performed By: #### T ROPN ####[employer] [address], [place] Troponin I.cardiac [Mass/Vol] 0.039 ng/mL High 0.000-0.034 [facility] [employer] [facility] Comment on above: Result Comment: . Performed By: #### B MP3M, HEMDF, MG3, PHOS3, PCAL #### [employer] [facility] [address] [place], [place] US Thora-Aspir Pleura w/ Shawanda geon 12-29-2021 US Thora-Aspir Pleura w/ Image Patient Name: JAIMIE MCGOVERN Ultrasound ACCESSION EXAM DATE/TIME PROCEDURE ORDERING PROVIDER [id number] 12/29/2021 16:07 EDT US Thora-Aspir Pleura w/ [id number] -[place], Image MONIKA CPT code 14138 Reason For Exam (US Thora-Aspir Pleura w/ [...] Transcribed Date and Time: 12/29/2021 4:14 Normal [facility] XR ABDOMEN (KUB) (SINGLE AP VIEW)on 12-29-2021 [facility] Work Phone: XR ABDOMEN (KUB) (SINGLE AP VIEW)Ordered By: Froilan Loyola on 12-29-2021 [facility] Work Phone: XR CHEST PORTABLEon 12-30-19 22 [facility] Work Phone: [facility] Work Phone: XR CHEST PORTABLEOrdered By: Jorge Mckenna on 12-29-2021 [facility] Work Phone: XR CHEST PORTABLEOrdered By: Rafael Liao on 12-29-2021 [facility] Work Phone: CR Chest Portableon 12-29-19 CR Chest Portable Patient Name: JAIMIE MCGOVERN Diagnostic Radiology ACCESSION EXAM DATE/TIME PROCEDURE ORDERING PROVIDER [id number] 12/28/2021 12:22 EDT CR Chest Portable MD GONZALEZ DAVID CPT code 36175 Reason For Exam (CR Chest Portable) s/p [...] Transcribed Date and Time: 12/28/2021 1:35 Normal [facility] CR Chest Portable Patient Name: JAIMIE MCGOVERN Diagnostic Radiology ACCESSION EXAM DATE/TIME PROCEDURE ORDERING PROVIDER [id number] 12/28/2021 05:56 EDT CR Chest Portable [id number] MONIKA AYOUB CPT code 91271 Reason For Exam (CR Chest Portable) pneumomediastinum [...] Dictated: 12/28/2021 8:18 am Dictating Physician: MD MARTIN, KANDI Signed Date and Time: 12/28/2021 8:28 am Signed by: MD SALAZAR AHMAD Transcribed Date and Time: 12/28/2021 8:18 Normal [facility] Lactic Acidon 12-28-2021 Lactate [Moles/Vol] 2.4 mmol/L Critically high 0.7-2.0 [facility] Comment on above: Performed By: #### H EMDF, BMP3M #### [facility] [address] [place], [place] Lactate [Moles/Vol] 3.6 mmol/L Critically high 0.7-2.0 [facility] Comment on above: Performed By: #### L ACT3 ####[id number] [place], [place] Interpretation and review of laboratory results Abnormal [facility] Lactate [Moles/Vol] 3.6 mmol/L Critically high 0.7 - 2 mmol/L [facility] No Panel Informationon 12-28 [facility] Work Phone: [phone] [facility] Radiology Study observation (narrative) [facility] Work Phone: [phone] Troponinon 12-28-2021 Troponin I.cardiac [Mass/Vol] 0.027 ng/mL 0 - 0.034 ng/mL [facility] Work Phone: [phone] Troponin I.cardiac [Mass/Vol] 0.025 ng/mL 0 - 0.034 ng/mL [facility] Work Phone: [phone] Troponin Ion 12-28-2021 Troponin I.cardiac [Mass/Vol] 0.027 ng/mL Normal 0.000-0.034 [facility] Comment on above: Result Comment: . Performed By: #### T ROPN ####[address] Troponin I.cardiac [Mass/Vol] 0.025 ng/mL Normal 0.000-0.034 [facility] Comment on above: Result Comment: . Performed By: #### T ROPN ####[facility] [place], [place] XR CHEST PORTABLEon 12-29-19 [facility] Work Phone: [facility] Work Phone: [facility] Work Phone: XR CHEST PORTABLEOrdered By: Unknown Result on 12-28-2021 [facility] Absolute lymphocyte counton 12-27-2021 Lymphocytes Auto (Unsp spec) [#/Vol] 0.99 10*3/uL 0.83-4.51 [facility] Work Phone: Add On Lab Teston 12-27-2021 Add On Accepted [facility] Add on test from HISon 12-27 Add on test from HIS Accepted Normal [facility] Comment on above: Result Comment: Spec imen available & acceptable for analysis. Performed By: #### B MP3M, HEMDF, MG3, PHOS3, PCAL #### [facility] [address] [place], [place] Basic Metabolic Panelon Anion gap [Moles/Vol] 7 mmol/L Normal 3-13 [facility] Comment on above: Performed By: #### B MP3M, HEMDF, MG3, PHOS3, PCAL #### [facility] [address] [place], [place] Calcium [Mass/Vol] 7.9 mg/dL Low 8.4-10.4 [facility] Comment on above: Performed By: #### B MP3M, HEMDF, MG3, PHOS3, PCAL #### [address] [place], [place] CO2 [Moles/Vol] 20 mmol/L Low 22-30 [facility] Comment on above: Performed By: #### B MP3M, HEMDF, MG3, PHOS3, PCAL #### [facility] [address] [place] [address] Glucose [Mass/Vol] 120 mg/dL High 70-100 [facility] Comment on above: Performed By: #### B MP3M, HEMDF, MG3, PHOS3, PCAL #### [facility] [address] [place] [address] Urea nitrogen [Mass/Vol] 9 mg/dL Normal 9-20 [facility] Comment on above: Performed By: #### B MP3M, HEMDF, MG3, PHOS3, PCAL #### [facility] [address] [place] [address] Creatinine [Mass/Vol] 0.52 mg/dL Normal 0.52-1.25 [facility] Comment on above: Performed By: #### B MP3M, HEMDF, MG3, PHOS3, PCAL #### [address] [place] [address] eGFR OTHER > 90.0 Normal >60 [facility] Comment on above: Result Comment: KDIG O [...] B MP3M, HEMDF, MG3, PHOS3, PCAL #### [facility] [address] [place] [address] GFR/1.73 sq M.predicted among blacks MDRD (S/P/Bld) [Vol rate/Area] mL/min/{1.73_m2} Normal >60 [facility] Comment on above: Performed By: #### B MP3M, HEMDF, MG3, PHOS3, PCAL #### [facility] [address] [place] [address] Chloride [Moles/Vol] 112 mmol/L High 98-107 [facility] Comment on above: Performed By: #### B MP3M, HEMDF, MG3, PHOS3, PCAL #### [facility] [address] [place] [address] Potassium [Moles/Vol] 4.4 mmol/L Normal 3.5-5.1 [facility] Comment on above: Result Comment: Slig htly hemolysed, interpret with caution. Performed By: #### B MP3M, HEMDF, MG3, PHOS3, PCAL #### [address] [place] [address] Sodium [Moles/Vol] 140 mmol/L Normal 135-145 [facility] Comment on above: Performed By: #### B MP3M, HEMDF, MG3, PHOS3, PCAL #### [address] [place] [address] Anion gap [Moles/Vol] 7 mmol/L 3 - 13 mmol/L [facility] Work Phone: Calcium [Mass/Vol] 7.9 mg/dL Low 8.4 - 10. 4 mg/dL [facility] Work Phone: Chloride [Moles/Vol] 112 mmol/L High 98 - 10 7 mmol/L [facility] Work Phone: [phone] CO2 [Moles/Vol] 20 mmol/L Low 22 - 30 mmol/L [facility] Work Phone: Creatinine [Mass/Vol] 0.52 mg/dL 0.52 - 1.25 mg/dL [facility] Work Phone: eGFR mL/min 60 - P INF mL/min [facility] Work Phone: EGFR IF NonAfrican Turkmen mL/min 60 - PINF mL/min [facility] Work Phone: Glucose [Mass/Vol] 120 mg/dL High 70 - 100 mg/dL [facility] Work Phone: [phone] Interpretation and review of laboratory results Abnormal [facility] Work Phone: [phone] Potassium [Moles/Vol] 4.4 mmol/L 3.5 - 5.1 mmol/L [facility] Work Phone: [phone] Sodium [Moles/Vol] 140 mmol/L 135 - 145 mmol/L [facility] Work Phone: [phone] Urea nitrogen (BldV) [Mass/Vol] 9 mg/dL 9 - 20 mg/dL [facility] Work Phone: [phone] [facility] Work Phone: [phone] Basophil percentageon 2021 Lactate [Moles/Vol] 2.5 mmol/L 0.4-2.0 [facility] Work Phone: Comment on above: Critical Result(s) C alled at: 09:11:21 12/27/2021 by: Mercedes Panda to [place]. Results read back by same. Basophil percentage 0 SEEN /hpf 0-5 [facility] Work Phone: Basophils/100 WBC (Bld) 0.5 % 0-[address] [facility] Work Phone: Bilirubin [Mass/Vol] 0.20 mg/dL 0.20-1.00 [facility] Work Phone: Comment on above: For patients on eltr ombopag therapy, use of Dimension [place] TBIL is not recommended. Chloride [Moles/Vol] 114 mmol/L 98-107 [facility] Work Phone: Eosinophils/100 WBC (Bld) 0.8 % 0-5 [facility] Work Phone: Glucose [Mass/Vol] 173 mg/dL 74-106 [facility] Work Phone: Comment on above: Fasting Glucose resu lt greater than or equal to 126 mg/dL suggests DIABETES MELLITUS per A.D.A. criteria. Neutrophils (Bld) [#/Vol] 12.6 10*3/uL 2.0-7.7 [facility] Work Phone: Neutrophils/100 WBC (Bld) 83.6 % 47-70 [facility] Work Phone: Potassium [Moles/Vol] 3.7 mmol/L 3.5-5.1 [facility] Work Phone: Protein [Mass/Vol] 6.7 g/dL 6.4-8.2 [facility] Work Phone: Sodium [Moles/Vol] 145 mmol/L 136-145 [facility] Work Phone: WBC (Bld) [#/Vol] 15.1 10*3/uL 4.4-11.0 [facility] Work Phone: Bilirubin Test strip Ql (U)o n 12-27-2021 Bilirubin Ql (U) Negative Negative [facility] Work Phone: Blood erythrocytes count (nu mber/volume)on 12-27-2021 RBC (Bld) [#/Vol] 3.93 10*6/uL 4.2-5.4 [facility] Work Phone: Blood hemoglobin measurement (mass/volume)on 12-27-2021 Hemoglobin (Bld) [Mass/Vol] 14.2 g/dL 12.0-15.0 [facility] Work Phone: Blood lymphocytes/100 leukoc yteson 12-27-2021 Lymphocytes/100 WBC (Bld) 6.6 % 19-41 [facility] Work Phone: Blood monocytes/100 leukocyt eson 12-27-2021 Monocytes/100 WBC (Bld) 8.2 % 0-[address] [facility] Work Phone: Blood platelet mean volumeon 12-27-2021 Platelet mean volume (Bld) [Entitic vol] 8.4 fL 6.2-12.0 [facility] Work Phone: CBC with Auto Differentialon 12-27-2021 Hematocrit (Bld) [Volume fraction] 41.2 % 35 - 47 % [facility] Work Phone: 1 Hemoglobin (Bld) [Mass/Vol] 13.5 g/dL 11.7 - 16 g/dL [facility] Work Phone: 1 Interpretation and review of laboratory results Abnormal [facility] Work Phone: 1 MCH (RBC) [Entitic mass] 35.8 pg High 26 - 34 pg [facility] Work Phone: MCHC (RBC) [Mass/Vol] 32.9 % 32 - 36 % [facility] Work Phone: MCV (RBC) [Entitic vol] 108.9 fL High 79 - 98 fL [facility] Work Phone: Platelet distribution width (Bld) [Ratio] 17.3 % High 11.5 - 14.5 % [facility] Work Phone: Platelet mean volume (Bld) [Entitic vol] 6.9 fL Low 7.4 - 12.4 fL [facility] Work Phone: Platelets (Bld) [#/Vol] 219 10*3/uL 140 - 440 10*3/uL [facility] Work Phone: 1 RBC (Bld) [#/Vol] 3.78 10*6/uL Low 3.8 - 5.2 10*6/uL [facility] Work Phone: WBC (Bld) [#/Vol] 8.4 10*3/uL 3.6 - 10.7 10*3/uL [facility] Work Phone: 1 [facility] Work Phone: COVID and Resp PCR Panelon 0 12-27-2021 [...] Panel. _ Expected Result: Not Detected The [place] Upper Respiratory Pathogens PCR Panel can detect the following targets: SARS-CoV-2, Adenovirus, Coronavirus 229E, Coronavirus HKU1, Coronavirus NL63, Coronavirus OC43, Human Metapneumovirus, Human Rhinovirus/Enteroviru s, Influenza A, Influenza B, Parainfluenza Virus 1, Parainfluenza Virus 2, Parainfluenza Virus 3, Parainfluenza Virus 4, Respiratory Syncytial Virus, Bordetella pertussis, Bordetella parapertussis, Chlamydia pneumoniae, Mycoplasma pneumoniae. Method: Real-time PCR. Normal [facility] Comment on above: Performed By: #### B MP3M, HEMDF, MG3, PHOS3, PCAL #### [facility] [address] [place] [address] [address] CHEST W CONTRASTon 2021 [facility] [employer] Work Phone: Radiology Study observation (narrative) [employer] Work Phone: CT CHEST W CONTRASTOrdered B y: Theolinnette Dagoberto on 12-27-2021 [facility] Work Phone: CT Chest w/ Contraston 12-27 CT Chest w/ Contrast Patient Name: JAIMIE MCGOVERN Computed Tomography ACCESSION EXAM DATE/TIME PROCEDURE ORDERING PROVIDER [id number] 12/27/2021 14:[address] Thorax w/ Contrast [id number] MONIKA AYOUB CPT code 78954 Q9967 Reason For Exam (CT Thorax w/ [...] Dictated: 12/27/2021 3:37 pm Dictating Physician: MD DAGOBERTO, ZION Signed Date and Time: 12/27/2021 3:46 pm Signed by: MD BANKS CHRISTOPHER Transcribed Date and Time: 12/27/2021 3:37 Normal [facility] Determination of erythrocyte mean corpuscular volume (MCV)on 12-27-2021 MCV (RBC) [Entitic vol] 108.9 fL 81-[address] [facility] Work Phone: Direct bilirubinon 2 Bilirubin.direct [Mass/Vol] 0.09 mg/dL 0.00-0.30 [facility] Work Phone: ED Provider Noteon 2 ED Provider Note [facility] EMERGENCY DEPT EMERGENCY DEPARTMENT ENCOUNTER Pt Name: Jaimie Mcgovern Birthdate 1945 Date of evaluation: 12/27/2021 Provider: Mary Queen MD CHIEF COMPLAINT Chief Complaint Patient presents with Abdominal Pain Transfer from [place]. Pt c/o abdominal pain. HISTORY OF PRESENT ILLNESS (Location/Symptom, Timing/Onset, Context/Setting, Quality, Duration, Modifying Factors, Severity) Note limiting factors. I wore a kn95 mask for the entirety of this encounter. Jaimie Mcgovern is a 76 y.o. female who presents to the emergency department from transfer from [facility] . She had originally presented to [facility] via EMS due to pain in [...] Emergency Physician): Findings present in documentation from [place] ED. Interpretation per the Radiologist below, if available at the time of this note: CT CHEST W CONTRAST Result Date: 12/27/2021 Patient Name: JAIMIE MCGOVERN Computed Tomography ACCESSION EXAM DATE/TIME PROCEDURE ORDERING PROVIDER [id number] 12/27/2021 14:[address] Thorax w/ Contrast [id number] BELENKAREN MONIKA CPT code 72896 Q9967 Reason For Exam (CT Thorax w/ Contrast) CT esophogram for possible esophageal perforation Report EXAMINATION: CT of the chest with oral contrast (CT esophagram). EXAM DATE & TIME: 12/27/2021 2:58 PM EDT INDICATION: CT esophogram for possible esophageal perforation ADDITIONAL INFORMATION: 76-year-old female with suspected perforated esophagus presents for CT esophagram COMPARISON: None LIMITATIONS: (more content not included)... Normal [facility] ED Provider Note Emergency Department Encounter [facility] [...] ED course/MDM: I, Dr. Hicks, am the work measurement engineer of record. I personally saw the patient [...] dictations but occasionally words are mis-transcribed.) Dex Hicks, DO D.A.M. [employer] Dex Hicks DO 12/27/21 1053 Normal [facility] Hematocrit Auto (Bld) [Volum e fraction]on 12-27-2021 Hematocrit (Bld) [Volume fraction] 42.8 % 37-47 [facility] Work Phone: Hemogram w/ Autodiffon 12-27 Erythrocyte distribution width (RBC) [Ratio] 17.3 % High 11.5-14.5 [facility] Comment on above: Performed By: #### B MP3M, HEMDF, MG3, PHOS3, PCAL #### [address] Hematocrit (Bld) [Volume fraction] 41.2 % Normal 35.0-47.0 [facility] Comment on above: Performed By: #### B MP3M, HEMDF, MG3, PHOS3, PCAL #### [address] Hemoglobin (Bld) [Mass/Vol] 13.5 g/dL Normal 11.7-16.0 [facility] Comment on above: Performed By: #### B MP3M, HEMDF, MG3, PHOS3, PCAL #### [address] MCH (RBC) [Entitic mass] 35.8 pg High 26.0-34.0 [facility] Comment on above: Performed By: #### B MP3M, HEMDF, MG3, PHOS3, PCAL #### [address] MCHC 32.9 % Normal 32.0-36.0 [facility] Comment on above: Performed By: #### B MP3M, HEMDF, MG3, PHOS3, PCAL #### [address], [place] MCV (RBC) [Entitic vol] 108.9 fL High 79.0-98.[address] [facility] Comment on above: Performed By: #### B MP3M, HEMDF, MG3, PHOS3, PCAL #### [address] [place] [place] Platelet mean volume (Bld) [Entitic vol] 6.9 fL Low 7.4-12.4 [facility] Comment on above: Result Comment: MPV is a calculated measurement using platelet volume ratio. Performed By: #### B MP3M, HEMDF, MG3, PHOS3, PCAL #### [address], [place] Platelets (Bld) [#/Vol] 219 10*3/uL Normal 140-440 [facility] Comment on above: Performed By: #### B MP3M, HEMDF, MG3, PHOS3, PCAL #### [address], [place] RBC (Bld) [#/Vol] 3.78 10*6/uL Low 3.80-5.20 [facility] Comment on above: Performed By: #### B MP3M, HEMDF, MG3, PHOS3, PCAL #### [address], [place] WBC (Bld) [#/Vol] 8.4 10*3/uL Normal 3.6-10.7 [facility] Comment on above: Performed By: #### B MP3M, HEMDF, MG3, PHOS3, PCAL #### [address] [place], [place] Hepatic Functionon 2 ALT [Catalytic activity/Vol] 14 U/L Normal 0-34 [facility] Comment on above: Result Comment: The ALT test is performed by an updated assay method. Please note that the reference intervals have been changed and are now sex specific. Performed By: #### B MP3M, HEMDF, MG3, PHOS3, PCAL #### [facility] [address] [place], [place] ALP [Catalytic activity/Vol] 56 U/L Normal 38-126 [facility] Comment on above: Result Comment: Slig htly hemolysed, interpret with caution. Performed By: #### B MP3M, HEMDF, MG3, PHOS3, PCAL #### [facility] [address], [place] AST [Catalytic activity/Vol] 36 U/L Normal 15-46 [facility] Comment on above: Result Comment: Slig htly hemolysed, interpret with caution. Performed By: #### B MP3M, HEMDF, MG3, PHOS3, PCAL #### [address] [place] [address] Bilirubin [Mass/Vol] 0.8 mg/dL Normal 0.2-1.3 [facility] Comment on above: Performed By: #### B MP3M, HEMDF, MG3, PHOS3, PCAL #### [address], [place] Bilirubin.indirect [Mass/Vol] 0.0 mg/dL Normal 0.0-0.3 [facility] Comment on above: Performed By: #### B MP3M, HEMDF, MG3, PHOS3, PCAL #### [address] [place] [address] Protein [Mass/Vol] 6.4 g/dL Normal 6.3-8.2 [facility] Comment on above: Result Comment: Slig htly hemolysed, interpret with caution. Performed By: #### B MP3M, HEMDF, MG3, PHOS3, PCAL #### [address] [place] [address] Albumin [Mass/Vol] 3.5 g/dL Normal 3.5-5.0 [facility] Comment on above: Result Comment: Slig htly hemolysed, interpret with caution. Performed By: #### B MP3M, HEMDF, MG3, PHOS3, PCAL #### [facility] [address] [place] [address] Hepatic Function Panelon Albumin [Mass/Vol] 3.5 g/dL 3.5 - 5 g/dL [facility] Work Phone: [phone] ALP (Bld) [Catalytic activity/Vol] 56 U/L 38 - 126 U/L [facility] Work Phone: [phone] [Catalytic activity/Vol] 14 U/L 0 - 34 U/L [facility] Work Phone: [phone] [Catalytic activity/Vol] 36 U/L 15 - 46 U/L [facility] Work Phone: [phone] Bilirubin [Mass/Vol] 0.8 mg/dL 0.2 - 1 .3 mg/dL [facility] Work Phone: [phone] Bilirubin.indirect [Mass/Vol] 0.0 mg/dL 0 - 0.3 mg/dL [facility] Work Phone: [phone] Free PSA/Total PSA [Mass fraction] 6.4 g/dL 6.3 - 8.2 g/dL [facility] Work Phone: [phone] [facility] Work Phone: [phone] INR in Blood by Coagulation assayon 12-27-2021 INR Coag (Bld) [Relative time] 1.0 {INR} [facility] Work Phone: Ketones Test strip Ql (U)on 12-27-2021 Ketones Ql (U) Negative Negative [facility] Work Phone: Laboratory - Chemistry and C hemistry - challengeon 12-27-2021 ALP [Catalytic activity/Vol] 86 U/L 45-117 [facility] Work Phone: ALT [Catalytic activity/Vol] 13 U/L 13-56 [facility] Work Phone: CO2 [Moles/Vol] 19.0 mmol/L 21.0-32.0 [facility] Work Phone: Globulin (S) [Mass/Vol] 3.5 g/dL 2.2-4.[address] [facility] Work Phone: Lipase [Catalytic activity/Vol] 128 U/L 73-393 [facility] Work Phone: Urea nitrogen/Creatinine [Mass ratio] 8.9 mg/mg 10-20 [facility] Work Phone: Laboratory - Coagulationon 0 12-27-2021 aPTT Coag (Bld) [Time] 21.0 s 24.1-36.2 [facility] Work Phone: PT Coag (PPP) [Time] 13.2 s 11.7-14.9 [facility] Work Phone: Laboratory - Hematology and Cell countson 12-27-2021 Erythrocyte distribution width (RBC) [Entitic vol] 61.1 fL 35.1-43.9 [facility] Work Phone: Erythrocyte distribution width (RBC) [Ratio] 15.2 % 11.6-14.6 [facility] Work Phone: [phone] Immature granulocytes/100 WBC (Bld) 0.300 % 0.0-0.9 [facility] Work Phone: Comment on above: IG% - Immature Granu locytes (promyelocytes, myelocytes and metamyelocytes) > 1% indicates that a LEFT SHIFT is Present. MCH (RBC) [Entitic mass] 36.1 pg 27.0-32.0 [facility] Work Phone: Nucleated RBC/100 WBC (Bld) [Ratio] 0 % 0-5 [facility] Work Phone: [phone] Lactic Acidon 12-27-2021 Lactate [Moles/Vol] 4.4 mmol/L Critically high 0.7-2.0 [facility] Comment on above: Performed By: #### B MP3M, HEMDF, MG3, PHOS3, PCAL #### [address] Interpretation and review of laboratory results Abnormal [facility] Work Phone: Lactate [Moles/Vol] 4.4 mmol/L Critically high 0.7 - 2 mmol/L [facility] Work Phone: Lactate [Moles/Vol] 3.3 mmol/L Critically high 0.7-2.0 [facility] Comment on above: Result Comment: Crit ical Panic Lactate has fallen below the [facility] CCL/ED Panic Call Protocol. For [facility] ED patients ONLY the Lactate Levels greater than 2.0 and less than or equal to 4.0 mmol/L fall under the Panic Call Policy. Performed By: #### B MP3M, HEMDF, MG3, PHOS3, PCAL #### [address] [address] Interpretation and review of laboratory results Abnormal [facility] Work Phone: Lactate [Moles/Vol] 3.3 mmol/L Critically high 0.7 - 2 mmol/L [facility] Work Phone: [facility] Work Phone: MCHC Auto (RBC) [Mass/Vol]on 12-27-2021 MCHC (RBC) [Mass/Vol] 33.2 g/dL 32-36 [facility] Work Phone: Manual Diffon 12-27-2021 Abs Baso Cnt 0.0 10*3/uL Normal 0.0-0.2 [facility] Comment on above: Performed By: #### B MP3M, HEMDF, MG3, PHOS3, PCAL #### [address] [place] [address] Abs Eosin Cnt 0.0 10*3/uL Normal 0.0-0.5 [facility] Comment on above: Performed By: #### B MP3M, HEMDF, MG3, PHOS3, PCAL #### [address] [address] [place], [place] Abs Lymph Cnt 0.3 10*3/uL Low 1.1-4.5 [facility] Comment on above: Performed By: #### B MP3M, HEMDF, MG3, PHOS3, PCAL #### [facility] [address], [place] Abs Monocyte Cnt 0.1 10*3/uL Low 0.2-1.1 [facility] Comment on above: Performed By: #### B MP3M, HEMDF, MG3, PHOS3, PCAL #### [facility] [address] [place] Abs Neutrophile Cnt 8.0 10*3/uL Normal 2.2-8.2 [facility] Comment on above: Performed By: #### B MP3M, HEMDF, MG3, PHOS3, PCAL #### [facility] [address] [place] Anisocytosis Slight Normal [facility] Comment on above: Performed By: #### B MP3M, HEMDF, MG3, PHOS3, PCAL #### [facility] [address] Bands 35 % High 0-3 [facility] Comment on above: Performed By: #### B MP3M, HEMDF, MG3, PHOS3, PCAL #### [facility] [address] [place], [place] Basophils 0 % Normal 0-2 [facility] Comment on above: Performed By: #### B MP3M, HEMDF, MG3, PHOS3, PCAL #### [facility] [place] [place] Cells counted 100 Normal [facility] Comment on above: Performed By: #### B MP3M, HEMDF, MG3, PHOS3, PCAL #### [facility] [place] [place] Eosinophils 0 % Low 1-6 [facility] Comment on above: Performed By: #### B MP3M, HEMDF, MG3, PHOS3, PCAL #### [facility] [address] [place], [place] Lymphocytes 4 % Low 20-40 [facility] Comment on above: Performed By: #### B MP3M, HEMDF, MG3, PHOS3, PCAL #### [facility] [address] [place], [place] Macrocytosis Slight Normal [facility] Comment on above: Performed By: #### B MP3M, HEMDF, MG3, PHOS3, PCAL #### [facility] [address] [place] [place], [place] Monocytes 1 % Low 2-10 [facility] Comment on above: Performed By: #### B MP3M, HEMDF, MG3, PHOS3, PCAL #### [facility] [address] [place] [place], [place] RBC Morphology ABNORMAL Normal [facility] Comment on above: Performed By: #### B MP3M, HEMDF, MG3, PHOS3, PCAL #### [facility] [address] [place] [place], [place] Seg Neutrophils 60 % Normal 40-80 [facility] Comment on above: Performed By: #### B MP3M, HEMDF, MG3, PHOS3, PCAL #### [facility] [address] [place] [place], [place] Manual Differentialon 2021 Absolute Baso # 0.0 10*3/uL 0 - 0.2 10*3/uL [facility] Work Phone: [phone] Absolute Eos # 0.0 10*3/uL 0 - 0.5 10*3/uL [email or web address] Work Phone: [phone] Absolute Lymph # 0.3 10*3/uL Low 1.1 - 4.5 10*3/uL [email or web address] Work Phone: [phone] Absolute [place] # 0.1 10*3/uL Low 0.2 - 1.1 10*3/uL [email or web address] Work Phone: [phone] Absolute Neut # 8.0 10*3/uL 2.2 - 8.2 10*3/uL [email or web address] Work Phone: Anisocytosis Slight [facility] Work Phone: Bands 35 % High 0 - 3 % [facility] Work Phone: Basophils/100 WBC (Bld) 0 % 0 - 2 % [facility] Work Phone: Eosinophils/100 WBC (Bld) 0 % Low 1 - 6 % [facility] Work Phone: Interpretation and review of laboratory results Abnormal [facility] Work Phone: Lymphocytes/100 WBC (Bld) 4 % Low 20 - 40 % [facility] Work Phone: Macrocytosis Slight [facility] Work Phone: Monocytes/100 WBC (Bld) 1 % Low 2 - 10 % [facility] Work Phone: RBC (Bld) [#/Vol] ABNORMAL [facility] Work Phone: Seg Neutrophils 60 % 40 - 80 % [facility] Work Phone: TOTAL CELLS COUNTED 100 [facility] Work Phone: [facility] Work Phone: Mucus LM Ql (Urine sed)on Mucus Ql (Urine sed) 0 SEEN /hpf [facility] Work Phone: Nitrite Test strip Ql (U)on 12-27-2021 Nitrite Ql (U) Negative Negative [facility] Work Phone: No Panel Informationon 12-27 [facility] Work Phone: Estimated Creatinine Clearance Calc 39.50 ml/min [facility] Work Phone: Estimated GFR (MDRD) Amer 69 mL/min >60 [facility] Work Phone: Comment on above: GFR Calc Estimated GFR (MDRD) Non-Af Amer 57 mL/min >60 [facility] Work Phone: Comment on above: Non- GFR Calc POCT COVID-19, Antigenon 09- 04-2022 SARS-CoV-2 Nucleocapsid Antigen Negative Negative NA [facility] Platelets bldon 12-27-2021 Platelets (Bld) [#/Vol] 243 10*3/uL 150-450 [facility] Work Phone: Protein Test strip Ql (U)on 12-27-2021 Protein Ql (U) Negative Negative [facility] Work Phone: Prothrombin Timeon INR 1.0 Normal 0.9-1.1 [facility] Comment on above: Result Comment: Darion mmended [...] B MP3M, HEMDF, MG3, PHOS3, PCAL #### [place] [address] [place] [address] PT Coag (PPP) [Time] 10.4 s Normal 9.0-12.0 [facility] Comment on above: Result Comment: . Performed By: #### B MP3M, HEMDF, MG3, PHOS3, PCAL #### [place] [address] [place] [address] Protime-INRon 12-27-2021 INR Coag (Bld) [Relative time] 1.0 {INR} [facility] Work Phone: PT Coag (PPP) [Time] 10.4 s 9 - [address] [facility] Work Phone: [facility] Work Phone: Respiratory Panel, Molecular , with COVID-19 (Restricted: peds pts or suitable admitted adults)on 12-27-2021 Respiratory Panel Molecular, with COVID [facility] SARS-CoV-2 Antigenon 022 SARS-CoV-2 Antigen Negative Normal Negative [facility] Comment on above: Order Comment: ORDER WAS [...] can be found at the following sites: https://www.fda.gov/media/252503/download https://www.Between [employer].gov/media/115711/download Performed By: #### H [facility], BMP3M #### [address] [address] Serum or plasma acetone fiona urement (mass/volume)on 12-27-2021 Acetone [Mass/Vol] Negative NEG [facility] Work Phone: Serum or plasma albumin fiona urement (mass/volume)on 12-27-2021 Albumin [Mass/Vol] 3.2 g/dL 3.2-5.0 [facility] Work Phone: Serum or plasma calcium fiona urement (mass/volume)on 12-27-2021 Calcium [Mass/Vol] 8.1 mg/dL 8.5-10.1 [facility] Work Phone: Serum or plasma creatinine m easurement (mass/volume)on 12-27-2021 Creatinine [Mass/Vol] 1.01 mg/dL 0.55-1.02 [facility] Work Phone: Comment on above: The validity of the calculated GFR & GFRAA in patients over 70 years has not been determined. Clinical correlation is essential. Serum or plasma urea nitroge n measurement (mass/volume)on 12-27-2021 Urea nitrogen [Mass/Vol] 9 mg/dL 7-18 [facility] Work Phone: Squamous epithelial cells de tection in urine sediment by light microscopyon 12-27-2021 Epithelial cells.squamous LM Ql (Urine sed) 0 SEEN /hpf 5-10 [facility] Work Phone: Thin prep Papanicolaou smear with manual screeningon 12-27-2021 Thin prep Papanicolaou smear with manual screening 11 U/L 15-37 [facility] Work Phone: Thin prep Papanicolaou smear with manual screening 12 5-15 [facility] Work Phone: Urine blood detectionon -0 RBC Ql (U) Negative Negative [facility] Work Phone: RBC Ql (U) 0 SEEN /hpf 0-5 [facility] Work Phone: Urine clarityon 12-27-2021 Clarity (U) Clear Clear [facility] Work Phone: Urine color determinationon 12-27-2021 Color (U) Yellow Yellow [facility] Work Phone: Urine glucose detectionon Glucose Ql (U) Normal mg/dl Normal [facility] Work Phone: Urine leukocyte esterase det ection by dipstickon 12-27-2021 Leukocyte esterase Test strip Ql (U) Negative Negative [facility] Work Phone: Urine pHon 12-27-2021 pH (U) 6.0 [pH] 5.0 - 8.0 [facility] Work Phone: Urine sediment bacteria coun t by microscopy (number/high power field)on 12-27-2021 Bacteria LM.HPF (Urine sed) [#/Area] RARE /hpf None Seen [facility] Work Phone: Urine specific gravity measu rementon 12-27-2021 Specific gravity (U) [Rel density] 1.015 1.002-1.030 [facility] Work Phone: Urobilinogen Auto test strip Ql (U)on 12-27-2021 Urobilinogen Ql (U) Normal mg/dl Normal [facility] Work Phone: CNPNon 12-07-2021 CNPN Telephone ([facility]) JAIMIE AVENDANO ([id number]) 1945 F Date Time Provider Department 12/07/21 [...] 6 months This is intermittent leave Michael Cxo MD 12/09/2021 12:20 PM Signed done Jesika Rosales 12/09/2021 1:09 PM Signed Forms completed and faxed back to [facility]. Jesika Rosales Allergies As of Date: 12/07/2021 Noted Allergy Reaction LATEX 11/19/2008 Z LADAN (AZITHROMYCIN) 01/11/2008 Comments: did not work ZIAC (BISOPROLOL-HYDROCHLO ROTHIAZ*01/11/2008 Comments: did not work Date Reviewed: 07/11/2021 Reviewed by: Graciela Chamorro LPN - Fully Assessed Reason for Visit: FMLA Paperwork [4187] Prescriptions as of 12/09/2021 - levothyroxine (SYNTHROID) [...] Encounter Status:Closed by JESIKA ROSALES on 12/09/21 [facility] 11-20-2021 [facility] JAIMIE AVENDANO ([id number]) 1945 F Date Time Provider Department 11/20/21 MICHAEL COX [facility] During your visit today, we recorded the following information about you: Cailin Castañeda RN 11/20/2021 8:36 AM Signed Pts daughter called in and reports her mother has been upset all last week. She reports mother is saying, "I can't take care of myself and I want to go to a Shelter.". Daughter said she is not sure what [...] see if placement could be done at [place] Allergies As of Date: 11/20/2021 Noted Allergy Reaction LATEX 11/19/2008 Z LADAN (AZITHROMYCIN) 01/11/2008 Comments: did not work ZIAC (BISOPROLOL-HYDROCHLO ROTHIAZ*01/11/2008 Comments: did not work Date Reviewed: 07/11/2021 Reviewed by: Graciela Chamorro LPN - Fully Assessed Reason for Visit: Patient Update [1234] Patient Question [1477] Help with Shelter [Other] Prescriptions as of 04/16/2022 - levothyroxine [...] Encounter Status:Closed by CAILIN CASTAÑEDA on 04/16/22 [facility] 07-16-2021 [facility] JAIMIE AVENDANO ([id number]) 1945 F Date Time Provider Department 07/16/21 MICHAEL COX [facility] During your visit today, we recorded the following information about you: Bernarda Eisenberg LPN 07/16/2021 10:03 AM Signed Darlene with [facility] out of [facility] called to see if you received a fax they sent yesterday at pt's request to have cancer screening done at her home per Darlene. 1. Did you receive fax form? IF not phone [phone]. 2. Require form to be fax back with Doctor's signature. Bernarda Eisenberg LPN Graciela Chamorro LPN 07/16/2021 2:24 PM Signed Patient [...] by GRACIELA CHAMORRO LPN on 07/16/21 Normal [facility] Absolute lymphocyte counton 07-11-2021 Lymphocytes Auto (Unsp spec) [#/Vol] 0.73 10*3/uL 0.83-4.51 [facility] Work Phone: Basophil percentageon 2021 Basophils/100 WBC (Bld) 0.6 % 0-[address] [facility] Work Phone: Bilirubin [Mass/Vol] 0.30 mg/dL 0.20-1.00 [facility] Work Phone: Comment on above: For patients on eltr ombopag therapy, use of Dimension [place] TBIL is not recommended. Chloride [Moles/Vol] 109 mmol/L 98-107 [facility] Work Phone: Eosinophils/100 WBC (Bld) 2.5 % 0-5 [facility] Work Phone: [phone] Glucose [Mass/Vol] 103 mg/dL 74-106 [facility] Work Phone: Comment on above: Fasting Glucose resu lt from 100 to 125 mg/dL suggests IMPAIRED HOMEOSTASIS per A.D.A. criteria. Neutrophils (Bld) [#/Vol] 3.4 10*3/uL 2.0-7.7 [facility] Work Phone: Neutrophils/100 WBC (Bld) 70.7 % 47-70 [facility] Work Phone: Potassium [Moles/Vol] 4.1 mmol/L 3.5-5.1 [facility] Work Phone: Protein [Mass/Vol] 6.9 g/dL 6.4-8.2 [facility] Work Phone: Sodium [Moles/Vol] 138 mmol/L 136-145 [facility] Work Phone: WBC (Bld) [#/Vol] 4.8 10*3/uL 4.4-11.0 [facility] Work Phone: Blood erythrocytes count (nu mber/volume)on 07-11-2021 RBC (Bld) [#/Vol] 4.14 10*6/uL 4.2-5.4 [facility] Work Phone: Blood hemoglobin measurement (mass/volume)on 07-11-2021 Hemoglobin (Bld) [Mass/Vol] 14.7 g/dL 12.0-15.0 [facility] Work Phone: Blood lymphocytes/100 leukoc yteson 07-11-2021 Lymphocytes/100 WBC (Bld) 15.3 % 19-41 [facility] Work Phone: Blood monocytes/100 leukocyt eson 07-11-2021 Monocytes/100 WBC (Bld) 10.5 % 0-[address] [facility] Work Phone: Blood platelet mean volumeon 07-11-2021 Platelet mean volume (Bld) [Entitic vol] 9.0 fL 6.2-12.0 [facility] Work Phone: CNOVon 07-11-2021 CNOV Office Visit ([facility] ) JAIMIE AVENDANO ([id number]) 1945 F Date Time Provider Department 07/11/21 [...] of evaluating that over the weekend. To [facility] ER. ER passport completed for transfer of [...] Encounter Status:Closed by MICHAEL COX on 07/11/21 [facility] Determination of erythrocyte mean corpuscular volume (MCV)on 07-11-2021 MCV (RBC) [Entitic vol] 101.9 fL 81-[address] [facility] Work Phone: Hematocrit Auto (Bld) [Volum e fraction]on 07-11-2021 Hematocrit (Bld) [Volume fraction] 42.2 % 37-47 [facility] Work Phone: [phone] Laboratory - Chemistry and C hemistry - challengeon 07-11-2021 ALP [Catalytic activity/Vol] 104 U/L 45-117 [facility] Work Phone: [phone] ALT [Catalytic activity/Vol] 18 U/L 13-56 [facility] Work Phone: [phone] CO2 [Moles/Vol] 27.0 mmol/L 21.0-32.0 [facility] Work Phone: [phone] Free T4 [Mass/Vol] 0.95 ng/dL 0.76-1.46 [facility] Work Phone: [phone] Globulin (S) [Mass/Vol] 3.3 g/dL 2.2-4.[address] [facility] Work Phone: [phone] Urea nitrogen/Creatinine [Mass ratio] 11.9 mg/mg 10-20 [facility] Work Phone: [phone] Laboratory - Hematology and Cell countson 07-11-2021 Erythrocyte distribution width (RBC) [Entitic vol] 51.2 fL 35.1-43.9 [facility] Work Phone: [phone] Erythrocyte distribution width (RBC) [Ratio] 13.6 % 11.6-14.6 [facility] Work Phone: [phone] Immature granulocytes/100 WBC (Bld) 0.400 % 0.0-0.9 [facility] Work Phone: [phone] Comment on above: IG% - Immature Granu locytes (promyelocytes, myelocytes and metamyelocytes) > 1% indicates that a LEFT SHIFT is Present. MCH (RBC) [Entitic mass] 35.5 pg 27.0-32.0 [facility] Work Phone: [phone] Nucleated RBC/100 WBC (Bld) [Ratio] 0 % 0-5 [facility] Work Phone: [phone] MCHC Auto (RBC) [Mass/Vol]on 07-11-2021 MCHC (RBC) [Mass/Vol] 34.8 g/dL 32-36 [facility] Work Phone: No Panel Informationon 07-11 Estimated Creatinine Clearance Calc 39.94 ml/min [facility] Work Phone: Estimated GFR (MDRD) Amer 96 mL/min >60 [facility] Work Phone: Comment on above: GFR Calc Estimated GFR (MDRD) Non-Af Amer 79 mL/min >60 [facility] Work Phone: Comment on above: Non- GFR Calc Free Triiodothyronine (T3) pg/dL 2.4 pg/mL 2.18-3.98 [facility] Work Phone: Thyroid Stimulating Hormone (TSH) 3.54 uIU/mL 0.358-3.74 [facility] Work Phone: Platelets bldon 07-11-2021 Platelets (Bld) [#/Vol] 209 10*3/uL 150-450 [facility] Work Phone: Serum or plasma albumin fiona urement (mass/volume)on 07-11-2021 Albumin [Mass/Vol] 3.6 g/dL 3.2-5.0 [facility] Work Phone: Serum or plasma albumin/glob ulin mass ratioon 07-11-2021 Albumin/Globulin [Mass ratio] 1.1 {ratio} 0.9-2.4 [facility] Work Phone: Serum or plasma calcium fiona urement (mass/volume)on 07-11-2021 Calcium [Mass/Vol] 8.6 mg/dL 8.5-10.1 [facility] Work Phone: Serum or plasma creatinine m easurement (mass/volume)on 07-11-2021 Creatinine [Mass/Vol] 0.76 mg/dL 0.55-1.02 [facility] Work Phone: Comment on above: The validity of the calculated GFR & GFRAA in patients over 70 years has not been determined. Clinical correlation is essential. Serum or plasma urea nitroge n measurement (mass/volume)on 07-11-2021 Urea nitrogen [Mass/Vol] 9 mg/dL 7-18 [facility] Work Phone: Thin prep Papanicolaou smear with manual screeningon 07-11-2021 Thin prep Papanicolaou smear with manual screening 13 U/L 15-37 [facility] Work Phone: Thin prep Papanicolaou smear with manual screening 2 5-15 [facility] Work Phone: COVID-19 virus antigen assay SARS-CoV-2 (COVID-19) Ag IA.rapid Ql (Resp) [facility] Work Phone: Vital Signs Date Time Vital Sign Value Performing Clinician Faci lity 11-06-2024 14:57-0400 Body height 160.[address] Viviana Mcgee MD Work Phone: [facility] 06-27-2024 08:37-0500 Body temperature 98.2 [degF] Dr. Viviana Mcgee MD Work Phone: [facility] 06-27-2024 08:37-0500 Body weight 67.[address] Viviana Mcgee MD Work Phone: [facility] 06-27-2024 08:37-0500 Diastolic blood pressure 90 mm[Hg] Dr. Viviana Mcgee MD Work Phone: [facility] 06-27-2024 08:37-0500 Heart rate 80 /min Dr. Viviana Mcgee MD Work Phone: [facility] 06-27-2024 08:37-0500 Respiratory rate 14 /min Dr. Viviana Mcgee MD Work Phone: [facility] 06-27-2024 08:37-0500 SaO2% (BldA) [Mass fraction] 98 % Dr. Viviana Mcgee MD Work Phone: [facility] 06-27-2024 08:37-0500 Systolic blood pressure 167 mm[Hg] Dr. Viviana Mcgee MD Work Phone: [facility] 04-27-2023 15:25-0500 Body temperature 98 [degF] Dr. Michael Cox Work Phone: 0(009)113-633074 [place] [address] 04-27-2023 15:25-0500 Body weight 68.[address] Michael Cox Work Phone: 0(938)567-834274 [place] [address] 04-27-2023 15:25-0500 Diastolic blood pressure 77 mm[Hg] Dr. Michael Cox Work Phone: 5(684)858-789374 [place] [address] 04-27-2023 15:25-0500 Heart rate 63 /min Dr. Michael Cox Work Phone: 0(895)693-112974 [place] [address] 04-27-2023 15:25-0500 Respiratory rate 16 /min Dr. Michael Cox Work Phone: 6(147)333-703074 [place] [address] 04-27-2023 15:25-0500 SaO2% (BldA) [Mass fraction] 98 % Dr. Michael Cox Work Phone: 6(168)825-327974 [place] [address] 04-27-2023 15:25-0500 Systolic blood pressure 167 mm[Hg] Dr. Michael Cox Work Phone: 2(779)362-917174 [place] [address] 02-24-2023 11:52-0400 Body height 160.[address] Michael Cox Work Phone: 5(544)452-997174 [place] [address] 01-30-2023 18:46-0400 Diastolic blood pressure 83 mm[Hg] Dr. Michael Cox Work Phone: 0(835)921-296074 [place] [address] 01-30-2023 18:46-0400 Heart rate 63 /min Dr. Michael Cox Work Phone: 2(790)293-858074 [place] [address] 01-30-2023 18:46-0400 Respiratory rate 14 /min Dr. Michael Cox Work Phone: 0(213)964-825574 [place] [address] 01-30-2023 18:46-0400 SaO2% (BldA) [Mass fraction] 97 % Dr. Michael Cox Work Phone: 8(160)145-447148 [place] [address] 01-30-2023 18:46-0400 Systolic blood pressure 162 mm[Hg] Dr. Michael Cox Work Phone: 0(505)216-518048 [place] [address] 01-30-2023 16:40-0400 Body height 160.[address] Michael Cox Work Phone: 8(511)630-309648 [place] [address] 01-30-2023 16:40-0400 Body mass index (BMI) [Ratio] 26.7 kg/m2 Dr. Michael Cox Work Phone: 3(713)868-373448 [place] [address] 01-30-2023 16:40-0400 Body temperature 97.7 [degF] Dr. Michael Cox Work Phone: 6(496)654-229748 [place] [address] 01-30-2023 16:40-0400 Body weight 68.[address] Michael Cox Work Phone: 5(589)650-607048 [place] [address] 08-12-2022 15:01-0400 Body mass index (BMI) [Ratio] 25.8 kg/m2 Dr. Michael Cox Work Phone: 9(800)821-261248 [place] [address] 08-12-2022 15:01-0400 Body temperature 98.2 [degF] Dr. Michael Cox Work Phone: 6(064)739-605448 [place] [address] 08-12-2022 15:01-0400 Body weight 66.[address] Michael Cox Work Phone: 6(382)416-486548 [place] [address] 08-12-2022 15:01-0400 Diastolic blood pressure 70 mm[Hg] Dr. Michael Cox Work Phone: 1(069)659-734348 [place] [address] 08-12-2022 15:01-0400 Heart rate 65 /min Dr. Michael Cox Work Phone: 6(895)998-548448 [place] [address] 08-12-2022 15:01-0400 Respiratory rate 16 /min Dr. Michael Cox Work Phone: 0(295)454-236248 [place] [address] 08-12-2022 15:01-0400 SaO2% (BldA) [Mass fraction] 96 % Dr. Michael Cox Work Phone: [facility] 08-12-2022 15:01-0400 Systolic blood pressure 128 mm[Hg] Dr. Michael Cox Work Phone: [facility] 05-20-2022 09:02-0500 Body height 160.[address] Michael Cox Work Phone: [facility] 01-07-2022 04:16-0400 Body temperature 97 [degF] Dex Hicks [facility] Work Phone: [facility] 01-07-2022 04:16-0400 Diastolic blood pressure 70 mm[Hg] Dex Hicks DO Work Phone: [employer] 01-07-2022 04:16-0400 Heart rate 69 /min Dex [employer] Work Phone: [employer] 01-07-2022 04:16-0400 Respiratory rate 17 /min Dex [employer] Work Phone: [employer] 01-07-2022 04:16-0400 SaO2% (BldA) [Mass fraction] 92 % Dex [employer] Work Phone: [employer] 01-07-2022 04:16-0400 Systolic blood pressure 142 mm[Hg] Dex [employer] DO Work Phone: [employer] 01-04-2022 09:05-0400 Body height 152.4 cm Dex [employer] Work Phone: [employer] 01-02-2022 04:00-0400 Body mass index (BMI) [Ratio] 21.74 kg/m2 Dex [employer] Work Phone: [employer] 01-02-2022 04:00-0400 Body weight 50.5 kg Dex [employer] Work Phone: [facility] 12-27-2021 09:04-0400 Body temperature 98.4 [degF] [facility] Work Phone: 12-27-2021 09:04-0400 Diastolic blood pressure 73 mm[Hg] [facility] Work Phone: 12-27-2021 09:04-0400 Heart rate 96 /min [facility] Work Phone: 12-27-2021 09:04-0400 Inhaled oxygen flow rate 3 L/min [facility] Work Phone: 12-27-2021 09:04-0400 Respiratory rate 18 /min [facility] Work Phone: 12-27-2021 09:04-0400 SaO2% (BldA) [Mass fraction] 96 % [facility] Work Phone: 12-27-2021 09:04-0400 Systolic blood pressure 173 mm[Hg] [facility] Work Phone: 12-27-2021 00:47-0400 Body height 160.02 cm [facility] Work Phone: 12-27-2021 00:47-0400 Body mass index (BMI) [Ratio] 20 kg/m2 [facility] Work Phone: 12-27-2021 00:47-0400 Body weight 51.2 kg [facility] Work Phone: 08-07-2021 13:04-0400 Body height 160.[address] Michael Cox Work Phone: [facility] Work Phone: 08-07-2021 13:04-0400 Body temperature 97.6 [degF] Dr. Michael Cox Work Phone: [facility] Work Phone: 08-07-2021 13:04-0400 Diastolic blood pressure 88 mm[Hg] Dr. Michael Cox Work Phone: [facility] Work Phone: 08-07-2021 13:04-0400 Heart rate 91 /min Dr. Michael Cox Work Phone: [facility] Work Phone: 08-07-2021 13:04-0400 Respiratory rate 18 /min Dr. Michael Cox Work Phone: [facility] Work Phone: 08-07-2021 13:04-0400 SaO2% (BldA) [Mass fraction] 97 % Dr. Michael Cox Work Phone: [facility] Work Phone: 08-07-2021 13:04-0400 Systolic blood pressure 158 mm[Hg] Dr. Michael Cox Work Phone: [facility] Work Phone: 07-11-2021 14:02-0400 Diastolic blood pressure 93 mm[Hg] Dr. Michael Cox Work Phone: [facility] Work Phone: 07-11-2021 14:02-0400 Heart rate 76 /min Dr. Michael Cox Work Phone: [facility] Work Phone: 07-11-2021 14:02-0400 Respiratory rate 15 /min Dr. Michael Cox Work Phone: [facility] Work Phone: 07-11-2021 14:02-0400 SaO2% (BldA) [Mass fraction] 98 % Dr. Michael Cox Work Phone: [facility] Work Phone: 07-11-2021 14:02-0400 Systolic blood pressure 179 mm[Hg] Dr. Michael Cox Work Phone: [facility] Work Phone: 07-11-2021 11:21-0400 Body mass index (BMI) [Ratio] 20 kg/m2 Dr. Michael Cox Work Phone: [facility] Work Phone: 07-11-2021 11:21-0400 Body temperature 98.5 [degF] Dr. Michael Cox Work Phone: [facility] Work Phone: 07-11-2021 11:21-0400 Body weight 51.[address] Michael Cox Work Phone: [facility] Work Phone: Encounters Encounter Date Encounter Type Care Provider Facility Start: 11-23-2024 ambulatory Viviaan ABBOTT Fa cility:[facility] Start: 10-02-2024 End: 10-02-[address] Viviana Mcgee MD Work Phone: -[facility] Start: 10-02-2024 End: 10-02-[address] Viviana Mcgee MD -[facility] Work Phone: Start: 08-24-2024 End: 08-24-[address] Viviana Mcgee MD Work Phone: [facility] Work Phone: Start: 08-24-2024 End: 08-24-2024 Departed Referred Viviana Mcgee MD -[facility] [place] Start: 08-24-2024 Registered Referred Viviana Mcgee MD -[facility] [place] Start: 08-24-2024 End: 08-24-2024 ambulatory Viviana ABBOTT Facility:[facility] Start: 07-31-2024 End: 07-31-[address] Viviana Mcgee MD Work Phone: [facility] Work Phone: Start: 07-31-2024 End: 07-31-2024 Patient encounter procedure Matilda MCLAIN -[facility] Work Phone: Start: 07-31-2024 Non-patient / Non-visit Dr. Zachary gupta MD -[facility] Start: 07-31-2024 End: 07-31-[address] Viviana Mcgee MD Work Phone: [facility] Work Phone: Start: 07-31-2024 End: 07-31-2024 Patient encounter procedure Lacy SANCHEZ -Cardiovascular Services Work Phone: Start: 07-31-2024 End: 07-31-2024 ambulatory Efewongbe Oleghe Facility:[facility] Start: 07-03-2024 End: 07-03-2024 ambulatory Efewongbe Oleghe Facility:[facility] Start: 07-03-2024 End: 07-03-[address] Viviana Mcgee MD -[facility] Work Phone: Start: 06-29-2024 End: 06-29-[address] Viviana Mcgee MD Work Phone: [facility] Work Phone: Start: 06-29-2024 End: 06-29-2024 Departed Referred Matilda Doherty NP-C [facility] Start: 06-29-2024 End: 06-29-2024 ambulatory Matilda ABBOTT Facility:[facility] Start: 06-27-2024 End: 06-27-2024 Patient encounter procedure Lacy SANCHEZ -[facility] Work Phone: Start: 06-27-2024 End: 06-27-2024 ambulatory Eflawsonongbe Jeromee Facility:[facility] Start: 06-21-2024 End: 06-21-2024 ambulatory Efewongbe Oleluize Facility:[facility] Start: 06-21-2024 End: 06-21-2024 Patient encounter procedure Cr SANCHEZ -[facility] Work Phone: Start: 06-07-2024 ambulatory Efewongbe Jeromee Facili ty:[facility] Start: 06-07-2024 Registered Referred Viviana Mcgee MD [facility] Start: 06-01-2024 ambulatory Efewongbe Oleghe OLS Fa cility:[facility] Start: 06-01-2024 [facility] Start: 05-16-2024 End: 05-16-2024 ambulatory Matilda Tickton REGISTERED VASCULAR TECHNOLOGIST (RVT) Facility:[facility] Start: 05-16-2024 End: 05-16-2024 Patient encounter procedure Matilda Doherty REGISTERED VASCULAR TECHNOLOGIST (RVT)- -[facility] Work Phone: Start: 05-08-2024 End: 05-08-2024 ambulatory Efewongbe Oleghe Facility:[facility] Start: 05-08-2024 End: 05-08-[address] Viviana Mcgee MD -[facility] Work Phone: Start: 04-27-2024 ambulatory Efewongbe Oleghe Facili ty:[facility] Start: 04-27-2024 Registered Referred Viviana Mcgee MD [facility] Start: 04-03-2024 End: 04-03-2024 ambulatory Matilda Doherty REGISTERED VASCULAR TECHNOLOGIST (RVT) Facility:[facility] Start: 04-03-2024 End: 04-03-2024 Patient encounter procedure Matilda Doherty REGISTERED VASCULAR TECHNOLOGIST (RVT)-[facility] Work Phone: Start: 03-30-2024 End: 03-30-2024 Departed Referred Viviana Mcgee MD [facility] Start: 03-30-2024 End: 03-30-2024 ambulatory Efewongbe Oleghe OLS Facility:[facility] Start: 03-21-2024 End: 03-21-2024 ambulatory Efewongbe Oleghe Facility:[facility] Start: 02-28-2024 End: 02-28-2024 ambulatory Efewongbe Oleghe Facility:[facility] Start: 02-24-2024 End: 02-24-2024 ambulatory Efewongbe Oleghe Facility:[facility] Start: 01-27-2024 End: 01-27-2024 ambulatory Efewongbe Oleghe OLS Facility:[facility] Start: 01-25-2024 End: 01-25-2024 ambulatory Matilda Doherty REGISTERED VASCULAR TECHNOLOGIST (RVT) Facility:[facility] Start: 01-06-2024 ambulatory Efewongbe Oleghe OLS Fa cility:[facility] Start: 01-03-2024 End: 01-03-2024 ambulatory Efewongbe Oleghe Facility:[facility] Start: 12-30-2023 ambulatory Viviana ABBOTT Fa cility:[facility] Start: 12-28-2023 ambulatory Viviana ABBOTT Fa cility:[facility] Start: 12-19-2023 End: 12-19-2023 ambulatory Viviana Mcgee Facility:[facility] Start: 08-26-[address] lFavio Mcgee Work Phone: [facility] Start: 08-16-2023 End: 08-16-[address] Viviana Mcgee Work Phone: [facility] Work Phone: Start: 08-16-2023 End: 08-16-[address] Viviana Mcgee Work Phone: [facility] Start: 08-04-2023 End: 08-04-[address] Viviana Mcgee Work Phone: [facility] Work Phone: Start: 07-29-2023 End: 07-29-[address] Viviana Mcgee Work Phone: [facility] Work Phone: Start: 07-29-2023 End: 07-29-[address] Viviana Mcgee Work Phone: [facility] Start: 07-29-[address] Flavio Mcgee Work Phone: [facility] Start: 07-11-2023 End: 07-11-[address] Viviana Mcgee Work Phone: [facility] Work Phone: Start: 06-29-2023 End: 06-29-[address] Viviana Mcgee Work Phone: [facility] Work Phone: Start: 06-28-2023 End: 06-28-[address] Viviana Mcgee Work Phone: [facility] Work Phone: Start: 06-24-2023 End: 06-24-[address] Viviana Mcgee Work Phone: [facility] Work Phone: Start: 06-24-2023 End: 06-24-[address] Viviana Mcgee Work Phone: [facility] Start: 06-20-2023 End: 06-20-[address] Viviana Mcgee Work Phone: [facility] Work Phone: Start: 05-27-2023 End: 05-27-[address] Viviana Mcgee Work Phone: [facility] Work Phone: Start: 05-27-2023 End: 05-27-[address] Viviana Mcgee Work Phone: [facility] Start: 05-25-2023 End: 05-25-[address] Viviana Mcgee Work Phone: [facility] Work Phone: Start: 05-10-2023 End: 05-10-[address] Viviana Mcgee Work Phone: [facility] Work Phone: Start: 04-29-2023 End: 04-29-[address] Michael Cox Work Phone: [facility] Work Phone: Start: 04-29-2023 End: 04-29-[address] Michael Cox Work Phone: [facility] Start: 04-27-2023 End: 04-27-[address] Michael Cox Work Phone: [facility] Work Phone: Start: 04-07-2023 End: 04-07-[address] Michael Cox Work Phone: [facility] Work Phone: Start: 03-28-2023 End: 03-28-[address] Michael Cox Work Phone: [facility] Work Phone: Start: 03-28-2023 End: 03-28-[address] Michael Cox Work Phone: [facility] Work Phone: Start: 03-25-2023 End: 03-25-[address] Michael Cox Work Phone: [facility] Work Phone: Start: 03-25-2023 End: 03-25-[address] Michael Cox Work Phone: [facility] Start: 03-25-[address] Aidan Cox Work Phone: [facility] Start: 03-08-2023 End: 03-08-[address] Michael Cox Work Phone: [facility] Work Phone: Start: 02-25-2023 End: 02-25-[address] Michael Cox Work Phone: [facility] Work Phone: Start: 02-25-2023 End: 02-25-[address] Michael Cox Work Phone: [facility] Start: 02-08-2023 End: 02-08-[address] Michael Cox Work Phone: [facility] Work Phone: Start: 02-02-2023 End: 02-02-[address] Michael Cox Work Phone: [facility] Work Phone: Start: 01-30-2023 End: 01-30-2023 Emergency department patient visit Dr. Michael Cox Work Phone: [facility] Work Phone: Start: 01-28-2023 End: 01-28-[address] Michael Cox Work Phone: [facility] Work Phone: Start: 01-28-2023 End: 01-28-[address] Michael Cox Work Phone: [facility] Start: 01-26-2023 End: 01-26-[address] Michael Cox Work Phone: [facility] V[facility] Surgery Work Phone: Start: 01-11-2023 End: 01-11-[address] Michael Cox Work Phone: [facility] Work Phone: Start: 01-11-2023 Non-patient / Non-visit Dr. Day Cox Work Phone: [facility] Start: 01-07-2023 Non-patient / Non-visit [facility] Day [facility] Start: 01-07-2023 End: 01-07-[address] [facility] Work Phone: Start: 12-24-2022 End: 12-24-[address] Michael Cox Work Phone: [facility] Work Phone: Start: 12-24-2022 End: 12-24-[address] Michael Cox Work Phone: [facility] Start: 12-23-2022 End: 12-23-[address] Michael Cox Work Phone: [facility] Work Phone: Start: 11-29-2022 End: 11-29-[address] Michael Cox Work Phone: [facility] Work Phone: Start: 11-26-2022 End: 11-26-[address] Michael Cox Work Phone: [facility] Work Phone: Start: 11-26-2022 End: 11-26-[address] Michael Cox Work Phone: [facility] Start: 11-26-[address] Aidan Cox Work Phone: [facility] Start: 11-09-2022 End: 11-09-[address] Michael Cox Work Phone: [facility] Work Phone: Start: 11-09-2022 End: 11-09-[address] Michael Cox Work Phone: [facility] Start: 11-09-[address] Aidan Cox Work Phone: [facility] Start: 11-08-2022 End: 11-08-[address] Michael Cox Work Phone: [facility] Work Phone: Start: 11-02-2022 End: 11-02-[address] Michael Cox Work Phone: [facility] Work Phone: Start: 10-29-2022 End: 10-29-[address] Michael Cox Work Phone: [facility] Work Phone: Start: 10-29-2022 End: 10-29-[address] Michael Cox Work Phone: [facility] Start: 10-29-[address] Aidan Cox Work Phone: [facility] Start: 10-20-2022 End: 10-20-[address] Michael Cox Work Phone: [facility] Work Phone: Start: 09-24-2022 End: 09-24-[address] Michael Cox Work Phone: [facility] Work Phone: Start: 09-24-2022 End: 09-24-[address] Michael Cox Work Phone: [facility] Start: 09-14-2022 End: 09-14-[address] Michael Cox Work Phone: [facility] Work Phone: Start: 08-27-2022 End: 08-27-[address] Michael Cox Work Phone: [facility] Start: 08-20-2022 ambulatory Kinsey Leon [facility] Comment on above: Population Health Na vigation Outreach (ACO NO PCP) Start: 06-25-2022 End: 06-25-[address] Michael Cox Work Phone: [facility] Work Phone: Start: 06-25-2022 End: 06-25-[address] Michael Cox Work Phone: [facility] Start: 06-25-[address] Aidan Cox Work Phone: [facility] Start: 06-08-2022 End: 06-08-[address] Michael Cox Work Phone: [facility] Start: 05-28-2022 End: 05-28-[address] Michael Cox Work Phone: [facility] Work Phone: Start: 05-28-2022 End: 05-28-[address] Michael Cox Work Phone: [facility] Start: 05-11-2022 End: 05-11-[address] Michael Cox Work Phone: [facility] Start: 05-10-2022 End: 05-10-[address] Michael Cox Work Phone: [facility] Start: 04-30-2022 End: 04-30-[address] Michael Cox Work Phone: [facility] Work Phone: Start: 04-30-2022 End: 04-30-[address] Michael Cox Work Phone: [facility] Start: 04-30-[address] Aidan Cox Work Phone: [facility] Start: 03-29-2022 End: 03-29-[address] Michael Cox Work Phone: [facility] Work Phone: Start: 03-29-2022 End: 03-29-[address] Michael Cox Work Phone: [facility] Start: 03-29-[address] Aidan Cox Work Phone: [facility] Start: 03-26-2022 End: 03-26-[address] Michael Cox Work Phone: [facility] Work Phone: Start: 03-26-2022 End: 03-26-[address] Michael Cox Work Phone: [facility] Start: 03-26-[address] Aidan Cox Work Phone: [facility] Start: 03-10-2022 End: 03-10-[address] Michael Cox Work Phone: [facility] Start: 03-02-2022 End: 03-02-[address] Michael Cox Work Phone: [facility] Start: 02-26-2022 End: 02-26-[address] Michael Cox Work Phone: [facility] Work Phone: Start: 02-26-2022 End: 02-26-[address] Michael Cox Work Phone: [facility] Start: 02-26-[address] Aidan Cox Work Phone: [facility] Start: 01-29-2022 End: 01-29-[address] Michael Cox Work Phone: [facility] Work Phone: Start: 01-29-2022 End: 01-29-[address] Michael Cox Work Phone: [facility] Start: 01-11-[address] Aidan Cox Work Phone: [facility] Start: 12-27-2021 End: 01-07-2022 Evaluation and management of inpatient [facility] Start: 12-27-2021 End: 01-07-2022 Evaluation and management of inpatient Dex Hicks DO Work Phone: [facility] Start: 12-27-2021 End: 12-27-2021 Emergency department patient visit [facility] Start: 11-20-2021 Telephone encounter Michael Cox MD Work Phone: [facility] [place] Comment on above: Patient Update; Yola ent Question; Help with Shelter Start: 10-21-2021 ambulatory Michael Cox MD Work Phone: [facility] [place] Start: 08-07-2021 End: 08-07-[address] Michael Cox Work Phone: [facility] Start: 08-05-2021 Non-patient / Non-visit Dr. Day Cox Work Phone: [facility] Start: 08-05-2021 End: 08-05-[address] Michael Cox Work Phone: [facility] Start: 07-11-2021 End: 07-11-2021 ambulatory MICHAEL COX Facility:[facility] Start: 07-11-2021 End: 07-11-2021 Emergency department patient visit Dr. Michael Cox Work Phone: [facility] Procedures Date Procedure Procedure Detail Performing Clinician Start: 03-28-2023 CT of abdominal aort a with contrast Dr. Michael Cox Work Phone: Start: 01-30-2023 Plain X-ray of femur Dr Mohamud Cox Work Phone: Start: 01-30-[address] Mohamud Cox Work Phone: Start: 01-30-2023 Pelvis X-ray Dr. Aidan Cox Work Phone: Start: 01-07-2022 Dup-scan xtr veins c omplete bilateral study Aneil Chayo Zelaya MD Work Phone: Start: 01-07-2022 COVID-19 [...] REFLEX TO MG FOR LOW K Nanciil Chayo Zelaya MD Work Phone: Start: 01-05-2022 [...] xcpt urine blood/stool aerobic isol Isabel Nj UTILITY DIVISION PROJECT MANAGER - STOCK OR DELIVERY CLERK Work Phone: Start: 01-01-2022 Other source albumin quantitative each specimen Isabel Nj UTILITY DIVISION PROJECT MANAGER - STOCK OR DELIVERY CLERK Work Phone: Start: 01-01-2022 Radiologic exam ches t single view Isabel Nj UTILITY DIVISION PROJECT MANAGER - STOCK OR DELIVERY CLERK Work Phone: Start: 01-01-2022 Perq drainage pleura insert cath w/imaging Blayne Zelaya MD Work Phone: Start: 01-01-2022 Radiologic exam ches t single view Blayne Zelaya MD Work Phone: Start: 01-01-2022 Radiologic exam abdo men 1 view Isabel Nj UTILITY DIVISION PROJECT MANAGER - STOCK OR DELIVERY CLERK Work Phone: Start: 01-01-2022 End: 01-01-2022 Gluc [...] Start: 12-31-2021 MRSA BY PCR Isabel hayes UTILITY DIVISION PROJECT MANAGER - [facility] Work Phone: Start: 12-31-2021 Gluc bld gluc mntr d ev cleared fda spec home use Johnny Berrios MD Work Phone: Start: 12-31-2021 Ct angiography chest w/contrast/noncontrast Isabel Nj UTILITY DIVISION PROJECT MANAGER - STOCK OR DELIVERY CLERK Work Phone: Start: 12-31-2021 Dup-scan xtr veins c omplete bilateral study Blayne Zelaya MD Work Phone: Start: 12-31-2021 Radiologic exam abdo men 1 view Isabel Nj UTILITY DIVISION PROJECT MANAGER - STOCK OR DELIVERY CLERK Work Phone: Start: 12-31-2021 Radiologic exam ches t single view Blayne Zelaya MD Work Phone: Start: 12-31-2021 Blood count complete auto&auto difrntl wbc Ezekiel Maciel MD Work Phone: Start: 12-31-2021 Assay of magnesium Carmelina sa Leon Araujo MD Work Phone: Start: 12-31-2021 BASIC METABOLIC PANE L W/ REFLEX TO MG FOR LOW K Blayne Lambertod MD Work Phone: Start: 12-31-2021 Hepatic function [...] juan Beasley MD Work Phone: Start: 12-30-2021 MASTER SCHEDULER CLINICAL BEDSIDE SWALLOW EVALUATION & TREATMENT Yariel Beasley MD Work Phone: Start: 12-30-2021 Radiologic exam abdo men 1 view Isabel Roxane UTILITY DIVISION PROJECT MANAGER - STOCK OR DELIVERY CLERK Work Phone: Start: 12-30-2021 RENAL & LIVER PROFILE L danielle Roxane UTILITY DIVISION PROJECT MANAGER - STOCK OR DELIVERY CLERK Work Phone: Start: 12-30-2021 BASIC METABOLIC PANE L W/ REFLEX TO MG FOR LOW K Aneil A Stefania Zelaya MD Work Phone: Start: 12-30-2021 Cyanocobalamin vitamin b-12 Kristopher Todd UTILITY DIVISION PROJECT MANAGER - REGISTERED VASCULAR TECHNOLOGIST (RVT) Work Phone: Start: 12-30-2021 Radiologic exam ches t single view Aneil A Stefania Zelaya MD Work Phone: Start: 12-30-2021 Assay of troponin quantitative Yariel Beasley MD Work Phone: Start: 12-29-2021 Assay of troponin quantitative Yariel Beasley MD Work Phone: Start: 12-29-2021 Cell count misc body fluids w/differential count Monika Araujo MD Work Phone: Start: 12-29-2021 DIFFERENTIAL, BODY FLUID Monika Araujo MD Work Phone: Start: 12-29-2021 Lactate dehydrogenase [...] view Blayne Zelaya MD Work Phone: Start: 12-28-2021 Assay of [...] Author Start: 09-15-2025 LIPID SCREEN LIPID SCREEN [facility] Start: 09-16-2023 DIABETES SCREEN DIABETES SCREEN [facility] Start: 08-26-2023 Thyroid stimulating hormone measurement [facility] Start: 08-26-[address] [facility] Start: 01-30-[address] [facility] Start: 01-11-2023 Patient referral [facility] Work Phone: Start: 12-27-2022 Influenza vaccination LUNG CANCER SC REENING [facility] Start: 12-24-2022 Influenza vaccination INFLUENZ A (Season Ended) [facility] Start: 07-11-2022 ANNUAL PCP TEAM JUVENILE JUSTICE OFFICER PATRICIA DISEASE VISIT ANNUAL PCP TEAM CHRONIC DISEASE VISIT [facility] Start: 04-25-2022 ADVANCE DIRECTIVE DISCUSSION ADVANCE DIRECTIVE DISCUSSION [facility] Start: 04-25-2022 DEPRESSION ASSESSMENT DEPRESSION ASS ESSMENT [facility] Start: 12-24-2021 Influenza vaccination INFLUENZA (#1) [facility] Start: 12-24-2021 [facility] Start: 06-30-2021 COVID-19 VACCINE (3 - Booster for Moderna series) COVID-19 VACCINE (3 - Booster for Moderna series) [facility] Start: 04-25-2021 ADVANCE DIRECTIVE DISCUSSION ADVANCE DIRECTIVE DISCUSSION [facility] Start: 04-25-2021 DEPRESSION ASSESSMENT DEPRESSION ASS ESSMENT [facility] Start: 03-27-2021 COVID-19 VACCINE (3 - Booster for Moderna series) COVID-19 VACCINE (3 - Booster for Moderna series) [facility] Start: 02-27-2021 [facility] Start: 02-16-2017 Adult depression scr eening assessment DEPRESSION SCREENING [facility] Start: 02-11-2017 Mammography MAMMOGRAM [facility] Start: 04-01-2015 COLORECTAL CANCER SCREENING COLORECTAL CANCER SCREENING [facility] Start: 04-01-2015 FECAL OCCULT BLOOD FECAL OCCULT BLOO D [facility] Start: 2007 HEPATITIS B (1 of 3 - Risk 3-dose series) HEPATITIS B (1 of 3 - Risk 3-dose series) [facility] Start: 06-30-1997 Influenza vaccination LUNG CANCER SC REENING [facility] Start: 06-30-1997 SHINGRIX VACCINE (1 of 2) CAMPOS GRIX VACCINE (1 of 2) [facility] Start: 06-30-1992 COLOGUARD (FIT-DNA) COLOGUARD (FIT-D NA) [facility] Start: 06-30-1992 Colonoscopy COLONOSCOPY [facility] Start: 06-30-[address] COLONOGRAPHY [facility] Start: 06-30-[address] [facility] Start: 06-30-1966 HEPATITIS B (1 of 3 - Risk 3-dose series) HEPATITIS B (1 of 3 - Risk 3-dose series) [facility] Start: 06-30-1966 Urine microalbumin profile DTAP,TDAP ,TD (1 - Tdap) [facility] Start: 06-30-1966 [facility] Start: 06-30-1965 BP CONTROLLED (<130/80) BP CONTROLLE D (<130/80) [facility] Start: 06-30-1965 MMR (1 of 2 - Risk 2 -dose series) MMR (1 of 2 - Risk 2-dose series) [facility] Start: 06-30-1957 MENINGOCOCCAL B: Con environmental conflict manager based on risk (1 of 4 - Increased Risk Bexsero 2-dose series) MENINGOCOCCAL B: Consider based on risk (1 of 4 - Increased Risk Bexsero 2-dose series) [facility] Start: 06-30-1953 PNEUMOCOCCAL: 65+ (1 - PCV) PNEUMOCOCCAL: 65+ (1 - PCV) [facility] Start: 06-30-1948 HEPATITIS A (1 of 2 - Risk 2-dose series) HEPATITIS A (1 of 2 - Risk 2-dose series) [facility] Work Phone: Alanine aminotransfe rase [Enzymatic activity/volume] in Serum or Plasma [facility] Albumin [Mass/volume ] in Serum or Plasma [facility] Alkaline phosphatase [Enzymatic activity/volume] in Serum or Plasma [facility] Anion gap measurement [facility] Ankle brachial press ure index [facility] Aspartate aminotrans ferase [Enzymatic activity/volume] in Serum or Plasma [facility] End: 01-17-2022 Basic Metabolic Panel w/ Reflex to MG [facility] Work Phone: Basic Metabolic Pane l w/ Reflex to MG [facility] Work Phone: Bilirubin, total measurement [facility] BUN/Creatinine ratio [facility] Calcium [Mass/volume ] in Serum or Plasma [facility] Carbon dioxide, tota l [Moles/volume] in Serum or Plasma [facility] End: 01-17-2022 CBC W Auto Differential panel - Blood [facility] Work Phone: Chloride [Moles/volu me] in Serum or Plasma [facility] Creatinine [Moles/vo lume] in Serum or Plasma [facility] Glucose [Mass/volume ] in Serum or Plasma [facility] Work Phone: Glucose [Mass/volume ] in Serum or Plasma [facility] End: 12-31-2021 Hepatic function 2000 panel - Serum or Plasma [facility] Work Phone: End: 12-27-2021 Lactate [Moles/volume] in Serum or Plasma [facility] Work Phone: Measurement of renal function [facility] End: 12-29-2021 MRSA by PCR [facility] Work Phone: Nasotracheal suctioning [facility] Work Phone: Oxygen therapy [[facility] Data Set] [facility] Work Phone: Patient Education [facility] Work Phone: Patient referral [facility] Work Phone: Potassium [Moles/vol ume] in Serum or Plasma [facility] End: 12-27-2021 Protime-INR [facility] Work Phone: End: 11-20-2022 Screening mammography bi 2-view breast inc cad JACQUI SCREENING Radiology Routine Encounter for screening mammogram for breast cancer 1 Occurrences starting 10/21/2021 until 11/20/2022 [facility] Work Phone: Comment on above: 1 Occurrences starti ng 10/21/2021 until 11/20/2022 Sodium [Moles/volume ] in Serum or Plasma [facility] Total protein measurement [facility] Urea nitrogen [Mass/volume] in Serum or Plasma [facility] VL LOWER EXTREMITY BILATERAL VENOUS DUPLEX [facility] Work Phone: XR CHEST PORTABLE [facility] Work Phone: Immunizations Immunization Date Immunization Notes Care Provider Fa irwin 01-30-2021 COVID-19 vaccine, fu ll dose (MODERNA) Michael Cox MD Work Phone: [facility] Payers Date Payer Category Payer Medicaid [id number] 2023 Self-pay [id number] 2023 Unknown [id number] 2010 Medicare [id number] 2010 Medicare MEDICARE MEDICAR E A AND B [id number] 2010-Present [phone] [place] [address] Medicare [id number] 2010 Medicare 1945 Unknown [id number] Unknown [id number] 2.16.840.1.766018.3.579.2.462 Unknown [id number] 2.16.840.1.156483.3.579.2.462 Unknown [id number] 2.16.840.1.693621.3.579.2.462 Unknown [id number] 2.16.840.1.221419.3.579.2.462 Unknown [id number] 2.16.840.1.636169.3.579.2.462 Unknown [id number] 2.16.840.1.350674.3.579.2.462 Unknown [id number] 2.16.840.1.791860.3.579.2.462 Unknown [id number] 2.16.840.1.383726.3.579.2.462 Unknown [id number] 2.16.840.1.572827.3.579.2.462 Unknown [id number] 2.16.840.1.189332.3.579.2.462 Unknown [id number] 2.16.840.1.894571.3.579.2.462 Unknown [id number] 2.16.840.1.821093.3.579.2.462 Unknown [id number] 2.16.840.1.352735.3.579.2.462 Unknown [id number] 2.16.840.1.375439.3.579.2.462 Unknown [id number] 2.16.840.1.539808.3.579.2.462 Unknown [id number] 2.16.840.1.023100.3.579.2.462 Unknown [id number] 2.16.840.1.518814.3.579.2.462 Unknown [id number] 2.16.840.1.850275.3.579.2.462 Unknown [id number] 2.16.840.1.496385.3.579.2.462 Unknown [id number] 2.16.840.1.140187.3.579.2.462 Unknown [id number] 2.16.840.1.728965.3.579.2.462 Unknown [id number] 2.16.840.1.554899.3.579.2.462 Unknown [id number] 2.16.840.1.967571.3.579.2.462 Unknown [id number] 2.16.840.1.186188.3.579.2.462 Unknown [id number] 2.16.840.1.633831.3.579.2.462 Unknown [id number] 2.16840.1.979193.3.579.2.462 Unknown [id number] 2.16840.1.178872.3.579.2.462 Social History Date Type Detail Facility Start: 08-07-2021 End: 02-24-2023 Tobacco smoking status [facility] Unknown if ever smoked [facility] Start: 06-27-[address] [facility] Start: 06-27-[address] [facility] Start: 11-26-[address] [facility] Start: 06-29-[address] [facility] Start: 1945 Sex Assigned At Female W [facility] Start: 07-25-2017 End: 01-04-2022 Tobacco smoking status OKIS Smokes tobacco daily [facility] History of tobacco use Cigarette Smoker [facility] Start: 07-11-2021 Alcohol intake Current drinke r of alcohol (finding) [facility] Start: 07-25-2017 End: 07-11-2021 Alcohol intake [facility] Start: 1945 Sex Assigned At Not on file [facility] Start: 07-25-2017 End: 01-04-2022 Tobacco use and exposure Smokeless tobacco non-user [email or web address] Work Phone: Start: 12-25-2021 End: 01-04-2022 Exposure to SARS-CoV-2 (event) Not sure [facility] Work Phone: Start: 04-27-2023 End: 11-06-2024 Tobacco smoking status NHIS Ex-smoker (finding) [facility] Start: 07-26-2024 End: 08-06-2024 Sex Female (finding) [facility] Mental Status Date Assessment Result Facility 12-27-2021 Cognitive function Level Of Cons ciousness Awake;Alert;Follows Commands [facility] Work Phone: Clinical Notes 01-30-2014 to 06-27-2024 Note Date & Type Note Facility 06-27-2024 Evaluation note Diagnosis Onset Date Resolution PVD (peripheral vascular disease) chronic June 27 8:21am [facility] Work Phone: [phone]) 977-677304-28-2023 History of Present illness Narrative* Kinsey Gordon - 08/20/2022 1:38 PM EDT POPULATION HEALTH NAVIGATION OUTREACH Action/FYI I left a voice message and a my chart message Patient Identified by Name and : NO Outreach Outcome/Action Unable to reach patient: Left message Simplifyt message sent Did you use a PCP [...] 20, 2022 1:39 PM [facility] Note Attestation with edits by Mary Acosta DO at 01/27/2022 2:34 PM Patient seen & examined on day of discharge. Please refer to note dated on the day of discharge (01/07/2022) for associated attestation, exam, and plan. 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 Patient received CT scan at [place] ED and was transferred here with concern [...] her SICU stay. CT esophogram performed at [facility] with no extravasation of contrast and working [...] atherosclerotic disease noted. Significant (more content not included)...[facility]09-15-2022 History of Present illness Narrative* Leonarda Casillas RN - 01/07/2022 3:40 PM EDT Report called to [facility] [place]. All questions answered. Patient to be picked up at 1630. * Sofiya Wall PTA - 01/07/2022 12:08 PM EDT Physical Therapy Facility/Department: [facility] Physical Therapy Treatment Note Name: Jaimie Mcgovern : 1945 Date of Service: 01/07/2022 Discharge Recommendations: Subacute/Retirement Facility Patient Diagnosis(es): The primary encounter diagnosis [...] History Lives With: Alone Type of Home: (Shelter) Home Layout: One level Home Access: Level entry Bathroom Shower/Tub: Tub/Shower unit Bathroom Toilet: Standard Bathroom Equipment: Grab bars in shower, Shower chair Bathroom Accessibility: Accessible Home Equipment: Cane, Walker, rolling (Pt unclear how often she is using these devices.) Receives Help From: Family ADL Assistance: Independent Homemaking Assistance: Needs assistance Homemaking Responsibilities: No Ambulation Assistance: Independent Transfer Assistance: Independent Active Head Of History: No Mode of Transportation: Family Occupation: Retired [...] Timed Code Treatment Minutes: 9 Minutes (TP) BUSINESS OBJECTS DEVELOPER wore surgical mask and gloves throughout entire [...] oriented times 4 Routine labs: Recent Labs 01/05/225701/06/2250201/07/22 0042 WBC 13.4* 12.3* 10.8* HGB 11.6* 10.9* 11.2* HCT 35.7 33.4* 34.9* PLT 500* 647* 725* Recent Labs 01/05/225701/06/2250201/07/22 0042 NA 133* 137 136 K 4.7 [...] today [facility]. - Patient stable for DC to SNF [facility] Review of Systems Constitutional: Negative for chills, [...] ID still following - Zoysn completed - MASTER SCHEDULER following, continue with ensure, soft/easy chew diet [...] following - OP pulm follow-up Disposition: SNF ([facility]) when patient is medically stable per surgery [...] Patient tolerated procedure well. Pt transported to [place] [address] * ELIZ Buck - 01/06/2022 12:35 PM EDT Occupational Therapy Facility/Department: [facility] Occupational Therapy Treatment Name: Jaimie Mcgovern : 1945 Date of Service: 01/06/2022 Discharge Recommendations: Subacute/Retirement Facility Assessment Assessment: Progressing toward goals; would [...] to sit: Contact guard assistance AM-PAC Score [facility] Inpatient Daily Activity Raw Score: 16 (01/06/221323) [facility] Inpatient ADL T-Scale Score : 35.96 (01/06/221323) [...] 01/06/2022 11:24 AM EDT Physical Therapy Facility/Department: [facility] Physical Therapy Daily Treatment Note Name: Jaimie Mcgovern : 1945 Date of Service: 01/06/2022 Discharge Recommendations: Subacute/Retirement Facility Patient Diagnosis(es): The encounter diagnosis was [...] History Lives With: Alone Type of Home: (Shelter) Home Layout: One level Home Access: Level entry Bathroom Shower/Tub: Tub/Shower unit Bathroom Toilet: Standard Bathroom Equipment: Grab bars in shower, Shower chair Bathroom Accessibility: Accessible Home Equipment: Cane, Walker, rolling (Pt unclear how often she is using these devices.) Receives Help From: Family ADL Assistance: Independent Homemaking Assistance: Needs assistance Homemaking Responsibilities: No Ambulation Assistance: Independent Transfer Assistance: Independent Active Head Of History: No Mode of Transportation: Family Occupation: Retired [...] Hanson RCP - 01/06/2022 9:30 AM EDT [facility] Respiratory Care Department Progress Note As part [...] care of this patient, * Kristopher Todd, UTILITY DIVISION PROJECT MANAGER - REGISTERED VASCULAR TECHNOLOGIST (RVT) - 01/06/2022 9:04 AM EDT Images from the original note were not included. [facility] Geriatric Medicine Inpatient Consult Service Admission Date: [...] factors --Recommend outpatient follow up at [facility] formore in depth cognitive [...] eGFR >90.0 >60 mL/min EGFR IF NonAfrican Turkmen 89.5 >60 mL/min Calcium 8.4 8.4 - [...] 0.8 (L) 1.0 - 4.3 10*3/uL Absolute Aurora # 1.0 (H) 0.0 - 0.8 10*3/uL Absolute Eos # 0.1 0.0 - 0.5 10*3/uL Absolute Baso # 0.2 0.0 - 0.2 10*3/uL Lab Results Component Value Date TSH 2.263 12/29/2021 Lab Results Component Value Date [id number] 459 12/30/2021 No results found for: VITD25 [...] ID still following - Zoysn completed - MASTER SCHEDULER following, continue with ensure, soft/easy chew diet [...] Last dose of scheduled phenobarb 01/02 - [facility] protocols stopped Tobacco Abuse - Pt smokes 1ppd - Continue encouraging cessation Hypothyroidism - TSH wnl on admission - Continue home synthroid 50 mcg COPD - Continue with goal O2 92% given COPD, acapella, IS, duonebs q4h, 3% nebs TID - Pulmonology following - OP pulm follow-up Disposition: SNF ([facility]) when patient is medically stable per surgery recs. - Goals of Care: FULL CODE - DVT Prophylaxis: lovenox 40 q24h - creatinine clearance > 30 - GI Prophylaxis: Not Indicated - Diet: General Associated attestation - Mary Acosta DO - 01/06/2022 5:18 PM EDT I have discussed the care of Jaimie AvendanoIsaias with the medical student and/or resident. I [...] d/c to SNF 01/08 * Aster Parks, MARCOS - 01/05/2022 11:50 AM EDT Physical Therapy Facility/Department: [facility] Physical Therapy Daily Treatment Note Name: Jaimie Mcgovern : 1945 Date of Service: 01/05/2022 Discharge Recommendations: Subacute/Retirement Facility Patient Diagnosis(es): The encounter diagnosis was [...] History Lives With: Alone Type of Home: (Shelter) Home Layout: One level Home Access: Level entry Bathroom Shower/Tub: Tub/Shower unit Bathroom Toilet: Standard Bathroom Equipment: Grab bars in shower, Shower chair Bathroom Accessibility: Accessible Home Equipment: Cane, Walker, rolling (Pt unclear how often she is using these devices.) Receives Help From: Family ADL Assistance: Independent Homemaking Assistance: Needs assistance Homemaking Responsibilities: No Ambulation Assistance: Independent Transfer Assistance: Independent Active Head Of History: No Mode of Transportation: Family Occupation: Retired [...] Mobility Raw Score : 13 (01/05/22 115) [facility] Inpatient T-Scale Score : 36.74 (01/05/22 115) [...] facility policy used during session* Aster Parks BUSINESS OBJECTS DEVELOPER * Maki Crystal, MASTER SCHEDULER - 01/05/2022 11:24 AM EDT Facility/Department: [facility] Dysphagia Treatment Note NAME: Jaimie [...] Intake/Output Summary (Last 24 hours) at 01/05/2022 0951 Last data filed at 01/04/2022 1900 Gross [...] me. This note documented and discussed by housesmith Dr. Valverde reflects my history, exam and [...] Conjunctiva []Injected [x]Non-Injected Pinnae []Normal []Other Dentitian []Anvik Teeth []Dentures []edentulous Oral Mucosa [x][place] [x]Moist []Dry Oral ETT []Present [x]Absent Neck: [...] [x]Absent FLORES ([]RUE []RLE []LUE []LLE) Neurologic: [place] []Yes []No Corneal reflexes []Present []Absent Plantar [...] not included. Med Team Progress Note Jaimie AvendanoMonyjada : 1945(76 y.o.) Date: January 05, 2022 [...] Pulmonology following, ID following, recs appreciated - MASTER SCHEDULER following, continue with ensure, soft/easy chew diet [...] Last dose of scheduled phenobarb 01/02 - [facility] protocols stopped Tobacco Abuse - Pt smokes 1ppd - Continue encouraging cessation Hypothyroidism - TSH wnl on admission - Continue home synthroid 50 mcg COPD - Continue with goal O2 92% given COPD, acapella, IS, duonebs q4h, 3% nebs TID - Pulmonology following - OP pulm follow-up Disposition: SNF ([facility]) when patient is medically stable per surgery [...] from the original note were not included. [facility] - Infectious Diseases Attending Progress [...] show NGTD. Plan is for d/c to [facility] per primary. Objective: Vitals: Patient Vitals for [...] C) Temporal 76 16 93 % -- 01/03/22 2010 130/71 97.1 F (36.2 C) Temporal 68 [...] PROT 5.9 (L) 01/03/202252 LABALBU 2.8 (L) 01/03/202252 BILITOT 0.4 01/03/202252 ALKPHOS 91 01/03/2022 0053 AST 29 01/03/2022 0053 ALT 14 01/03/202252 PROCAL 15.03 (H) 01/04/2022110 PROCAL 23.68 (H) [...] RUQ, R shoulder, R chest. CT at [place] ED showed cecal pneumatosis and pneumomediastinum,and she was transferred to [facility]. CT Esophagram showed no signs of esophageal [...] hospital-acquired delirium - Low suspicion for acute PROPULSION MACHINERY SERVICE ENGINEER infection at this time - Patient has [...] Mental status has improved; no concern of PROPULSION MACHINERY SERVICE ENGINEER infection at this time 4. Pro-calcitonin elevation [...] plan of care, expectations, antimicrobials. * Aster Parks, MARCOS - 01/04/2022 2:50 PM EDT Physical Therapy Facility/Department: [facility] Physical Therapy Daily Treatment Note Name: Jaimie Mcgovern : 1945 Date of Service: 01/04/2022 Discharge Recommendations: Subacute/Retirement Facility Patient Diagnosis(es): The encounter diagnosis was [...] History Lives With: Alone Type of Home: (Shelter) Home Layout: One level Home Access: Level entry Bathroom Shower/Tub: Tub/Shower unit Bathroom Toilet: Standard Bathroom Equipment: Grab bars in shower, Shower chair Bathroom Accessibility: Accessible Home Equipment: Cane, Walker, rolling (Pt unclear how often she is using these devices.) Receives Help From: Family ADL Assistance: Independent Homemaking Assistance: Needs assistance Homemaking Responsibilities: No Ambulation Assistance: Independent Transfer Assistance: Independent Active Head Of History: No Mode of Transportation: Family Occupation: Retired [...] 10 reps AROM OutComes Score AM-PAC Score [facility] Inpatient Mobility Raw Score : 13 (01/04/22 2564) [facility] Inpatient T-Scale Score : 36.74 (01/04/221453) Mobility Inpatient CMS 0-100% Score: 64.91 (01/04/221453) [...] facility policy used during session* Aster Parks BUSINESS OBJECTS DEVELOPER * JOHN Shepherd - 01/04/2022 2:21 PM EDT Speech Language Pathology Attempted to see this date for dysphagia treatment. Patient politely declined all PO offered. MASTER SCHEDULER will follow up with as schedule permits. Glenna Colon MA, [facility]-MASTER SCHEDULER * Alejandro Georges MD - 01/04/2022 2:16 [...] deltoids) Fluid Accumulation: No significant fluid accumulation Superintendent Production Strength: Not Performed Nutrition Assessment: 76 year old woman who remains admitted as transfer from [facility] with concern for cecal pnematosis. S/P Right thoracentesis on 12/29/21 with 500 mL removal. Had recurrence of BL pleural effusions R> L and multifocal infiltrate L>R on repeat CT 12/31/21, right sided pig tail catheter placed 01/01/22. Geriatrics and palliative care following for declining functional status. Transferred from ICU to [facility] over the weekend. Plans to remove pigtail [...] Supplement Anthropometric Measures: Height: 5' (152.4 cm) [place] Body Weight (IBW): 100 lbs (45 kg) [...] Requirements: Admission Energy (kcal/day): 25-28 kcals/kg = 7488-7519 kcals/day Weight Used for Protein Requirements: Admission [...] to determine Estefania North RD, LD Contact: *[phone] [employer] [place] * ELIZ Cedeño - 01/04/2022 11:41 AM EDT Occupational Therapy Facility/Department: [facility] Occupational Therapy daily note Name: Jaimie Mcgovern : 1945 Date of Service: 01/04/2022 Discharge Recommendations: Subacute/Retirement Facility Patient Diagnosis(es): The encounter diagnosis was [...] History Lives With: Alone Type of Home: (Shelter) Home Layout: One level Home Access: Level entry Bathroom Shower/Tub: Tub/Shower unit Bathroom Toilet: Standard Bathroom Equipment: Grab bars in shower, Shower chair Bathroom Accessibility: Accessible Home Equipment: Cane, Walker, rolling (Pt unclear how often she is using these devices.) Receives Help From: Family ADL Assistance: Independent Homemaking Assistance: Needs assistance Homemaking Responsibilities: No Ambulation Assistance: Independent Transfer Assistance: Independent Active Head Of History: No Mode of Transportation: Family Occupation: Retired [...] ELIZ Cedeño * Nini Thomas APRN - JONATHAN - 01/04/2022 10:31 AM EDT Images from [...] PT/OT PT/OT [facility] advising SNF Lived alone 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 She was transferred from [place] for presentation of right chest, shoulder and abdominal pain. CT in [place] raised concern for pneumomediastinum and cecal pneumatosis. She was a surgery consult at [facility] where no surgical interventions were recommended for [...] withdrawal. Mentation has improved since that time. [facility] protocol for ETOH d/c 12/31. Patient smokes [...] baseline. Psychiatric: Mood and Affect: Mood normal. [place] Symptom Assessment Score [place] Score Pain Score 7 Tiredness Score 2 [...] from the original note were not included. [facility] Geriatric Medicine Inpatient Consult Service Admission Date: [...] factors --Recommend outpatient [facility] at [facility] [...] eGFR >90.0 >60 mL/min EGFR IF NonAfrican Turkmen >90.0 >60 mL/min Calcium 7.9 (L) 8.4 [...] 0.7 (L) 1.0 - 4.3 10*3/uL Absolute [place] # 0.8 0.0 - 0.8 10*3/uL Absolute [...] 2.263 12/29/2021 Lab Results Component Value Date [id number] 459 12/30/2021 No results found for: VITD25 Reviewed: active problem list, medication list, lab results, * Hugh Marsh - 01/04/2022 9:11 AM EDT Images from the original note were not included. Med Team Progress Note Jaimie AvendanoMonyjada : 1945(76 y.o.) Date: January 04, 2022 [...] Pulmonology following, ID following, recs appreciated - MASTER SCHEDULER following, continue with ensure, soft/easy chew diet [...] Last dose of scheduled phenobarb 01/02 - [facility] protocols stopped Tobacco Abuse - Pt smokes 1ppd - Continue encouraging cessation Hypothyroidism - TSH wnl on admission - Continue home synthroid 50 mcg COPD - Continue with goal O2 92% given COPD, acapella, IS, duonebs q4h, 3% nebs TID - Pulmonology following - OP pulm follow-up Disposition: SNF ([facility]) when patient is medically stable per surgery [...] by me this afternoon. D/W Palliative care REGISTERED VASCULAR TECHNOLOGIST (RVT). -anticpate d/c to SNF once chest tube removed and tolerates that. * Roberto Rodriguez DO - 01/03/2022 2:18 PM EDT Images from the original note were not included. [facility] - Infectious Diseases Attending Progress [...] (36.4 C) Temporal 60 16 98 % 09/10/22 2210 122/62 -- -- 76 -- -- [...] CO2 26 01/03/2022 0053 BUN 10 01/03/2022 0053 CREATININE 0.61 01/03/2022 005 GLUCOSE 99 01/03/2022 0053 CALCIUM 7.8 (L) 01/03/2022 0053 PROT 5.9 (L) 01/03/2022 005 LABALBU 2.8 (L) 01/03/2022 005 BILITOT 0.4 01/03/2022 0053 ALKPHOS 91 01/03/2022 0053 AST 29 01/03/2022 0053 ALT 14 01/03/2022 0053 PROCAL 23.68 (H) 01/02/2022 0318 PROCAL 6.23 (H) 12/31/2021 0258 PROCAL 3.68 (H) 12/29/2021 1018 Component Value Date/Time WBC 7.6 01/03/2022 005 HGB 10.8 (L) 01/03/2022 005 HCT 32.7 (L) 01/03/2022 005 PLT 365 01/03/2022 005 GRANULOCYTES 80.5 (H) 01/03/2022 005 LYMPHOPCT 8.6 (L) 01/03/202252 MONOPCT 7.7 01/03/2022 005 LABEOS 2.4 01/03/2022 005 BASOPCT 0.8 01/03/2022 005 NEUTROABS 6.1 01/03/2022 005 Micro: 12/27 Respiratory Panel, Molecular, with COVID-19 negative 12/27 Blood CXs + for CoNS 12/29 Strep pneumoniae Ag, urine: negative 12/29 Legionella Ag, urine: negative 01/01 Body fluid CX NGTD Lines: 01/01 RUE PIV Antimicrobials, Start/End Dates: 12/28- piperacillin/tazobactam Impression: Ms. Avendano is a 76 y/o F w/ PMH of alcoholic cirrhosis, hypothyroidism, and COPD. Presented to [facility] 12/27 w/ pain in the RUQ, R shoulder, and R chest. CT at [place] ED showed cecal pneumatosis and pneumomediastinum, and she was transferred to [facility]. Both general surgery and thoracic surgery were [...] hospital-aquired delirium - Low suspicion for acute PROPULSION MACHINERY SERVICE ENGINEER infection at this time 2. Elevated procalcitonin- [...] Mental status has improved; no concern of PROPULSION MACHINERY SERVICE ENGINEER infection at this time 4. Pro-calcitonin elevation [...] y.o.) Date: January 03, 2022 Med Team: A Attending: Dr. Dhaliwal Chief Complaint: BL pleural [...] Pulmonology following, ID following, recs appreciated - MASTER SCHEDULER following, continue with ensure, soft/easy chew diet [...] following - OP pulm follow-up Disposition: SNF ([facility]) when patient is medically stable per surgery [...] to placement into SNF; advanced directives per [facility] care. * Raman Monte MD - 01/03/2022 [...] Date 01/02/22 0000 - 01/02/22 235 Shift 0712-0903 6458-2818 6725-7611 24 Hour Total INTAKE P.O.(mL/kg/hr) 250(0.6) 250 [...] 80 Hepatic: Recent Labs 12/31/21 0258 01/01/22 004 AST 40 35 ALT 12 12 BILITOT [...] Surgery PGY-2 01/02/22 8:27 AM Pager # [phone] This note may have been dictated using Branding Brand Practice Edition 2.6 and/or Radiation Watch Voice Recognition Feature. The document was proofread; however, unrecognized voice recognition lever miller errors may be present. Associated attestation - [...] MD Division of Trauma Department of Surgery [facility] Pager: [phone] ~~~~~~~~~~~~~~~~~~~~~~~~~~~~~~~~~~~~~~~~~~~~~~~~~~~~~~~~~~~~~ This note may have been dictated using [employer] Medical Practice Edition 2.6 and/or Radiation Watch Voice Recognition Feature. The document was proofread; however, unrecognized voice recognition lever miller errors may be present. * Darlene Hanson, SYSTEM SOFTWARE DEVELOPER - 01/02/2022 7:29 AM EDT [facility] Respiratory Care Department Progress Note As part [...] RUQ pain. Patient received CT scan at [place] ED and was transferred here with concern [...] DESTINY Swenson CNP 1 patch at 01/01/22 4955 PHENobarbital (LUMINAL) tablet 16.2 mg 16.2 mg [...] Q4H GINGER Araujo MD 1 ampule at 01/01/222044 piperacillin-tazobactam [...] day Monika Araujo MD 1,000 mg at 01/02/22 0003 oxyCODONE (ROXICODONE) immediate release tablet 5 mg [...] -- Date 01/02/22 0000 - 01/02/229 Shift 7864-6423 8130-7898 7552-5963 24 Hour Total INTAKE P.O.(mL/kg/hr) 250 250 [...] Radiology ACCESSION EXAM DATE/TIME PROCEDURE ORDERING PROVIDER [id number] 12/30/2021 07:53 EDT CR Abdomen AP [id number] -ISABEL [place] CPT code 32255 Reason For Exam (CR Abdomen AP) assess [...] Radiology ACCESSION EXAM DATE/TIME PROCEDURE ORDERING PROVIDER [id number] 12/29/2021 10:58 EDT CR Abdomen AP [id number] -BLAYNE ZELAYA CPT code 00980 Reason For Exam (CR Abdomen AP) distention, [...] Result Date: 12/27/2021 [id number] Computed Tomography ACCESSION EXAM DATE/TIME PROCEDURE ORDERING PROVIDER [id number] 12/27/2021 14:[address] Thorax w/ Contrast [id number] MONIKA AYOUB CPT code 95916 Q9967 Reason For Exam (CT Thorax w/ [...] Dictated: 12/27/2021 3:37 pm Dictating Physician: MD BANKS CHRISTOPHER Signed Date and Time:12/27/2021 3:46 pm Signed by: MD BANKS CHRISTOPHER Transcribed Date and Time: 12/27/2021 3:37 XR CHEST PORTABLE Result Date: 12/30/2021 Patient Name: JAIMIE MCGOVERN Diagnostic Radiology ACCESSION EXAM DATE/TIME PROCEDURE ORDERING PROVIDER [id number] 12/30/2021 06:05 EDT CR Chest Portable MD MACIEL ANDREW CPT code 45174 Reason For Exam (CR Chest Portable) patient [...] Radiology ACCESSION EXAM DATE/TIME PROCEDURE ORDERING PROVIDER [id number] 12/29/2021 05:47 EDT CR Chest Portable MONIKA PERES CPT code 02899 Reason For Exam (CR Chest Portable) pneumomediastinum [...] Radiology ACCESSION EXAM DATE/TIME PROCEDURE ORDERING PROVIDER [id number] 12/29/2021 00:49 EDT CR Chest Portable MD MACIEL ANDREW CPT code 99670 Reason For Exam (CR Chest Portable) patient [...] Radiology ACCESSION EXAM DATE/TIME PROCEDURE ORDERING PROVIDER [id number] 12/28/2021 12:22 EDT CR Chest Portable MD GONZALEZ DAVID CPT code 51008 Reason For Exam (CR Chest Portable) s/p [...] Radiology ACCESSION EXAM DATE/TIME PROCEDURE ORDERING PROVIDER [id number] 12/28/2021 05:56 EDT CR Chest Portable [id number] -MONIKA ARAUJO CPT code 98214 Reason For Exam (CR Chest Portable) pneumomediastinum [...] Ultrasound ACCESSION EXAM DATE/TIME PROCEDURE ORDERING PROVIDER [id number] 12/29/2021 16:07 EDT US Thora-Aspir Pleura w/ [id number] -MARGIOTTA, Image MONIKA CPT code 34170 Reason For Exam (US Thora-Aspir Pleura w/ [...] - goal O2 92% given COPD - 9/9 High Flow oxygen this am, wean - [...] Blayne Zelaya MD PGY3, General Surgery Pager #[phone] Associated attestation - Erendira Maciel MD - 01/03/2022 8:39 PM EDT ~~~~~~~~~~~~~~~~~~~~~~~~~~~~~~~~~~~~~~~~~~~~~~~~~~~~~~~~~~~~~ ATTENDING ADDENDUM Hospital Problems [...] aldactone --> maintenance inhalers Gastrointestinal system - MASTER SCHEDULER - easy chew - LFTs wnl - [...] the day (including chart review,care coordination, and [id number] encounter) was spent discussing/counseling the patient/family regarding [...] MD Division of Trauma Department of Surgery [facility] Pager: [phone] ~~~~~~~~~~~~~~~~~~~~~~~~~~~~~~~~~~~~~~~~~~~~~~~~~~~~~~~~~~~~~ This note may have been dictated using [employer] Medical Practice Edition 2.6 and/or Radiation Watch Voice Recognition Feature. The document was proofread; however, unrecognized voice recognition lever miller errors may be present. * Cailin Mcdonald APRN - STOCK OR DELIVERY CLERK - 01/01/2022 4:34 PM EDT Images from the original note were not included. [facility] Geriatric Medicine Inpatient Consult Service Admission Date: [...] at [facility] formore in depth cognitive [...] SNF for ongoing daily PT/OT Discussed with [id number], Soha, at bedside Follow-up: will plan to [...] 1 in thepast 48 hrs. Worked with MASTER SCHEDULER this afternoon, cleared for easy to chew [...] eGFR >90.0 >60 mL/min EGFR IF NonAfrican Turkmen >90.0 >60 mL/min Calcium 7.2 (L) 8.4 [...] 0.3 (L) 1.0 - 4.3 10*3/uL Absolute Aurora # 0.7 0.0 - 0.8 10*3/uL Absolute [...] 2.263 12/29/2021 Lab Results Component Value Date [id number] 459 12/30/2021 No results found for: VITD25 Reviewed: active problem list, medication list, lab results, * Mily Duarte - 01/01/2022 2:27 PM EDT Physical Therapy Facility/Department: [facility] ICU T2 Physical Therapy treatment note Name: Jaimie Mcgovern : 1945 Date of Service: 01/01/2022 Discharge Recommendations: Subacute/Retirement Facility Patient Diagnosis(es): The encounter diagnosis was [...] Visit: Reassess Nutrition Recommendations/Plan: Recommend diet per MASTER SCHEDULER: Easy to chew with thin liquids Assist [...] deltoids) Fluid Accumulation: No significant fluid accumulation Superintendent Production Strength: Not Performed Nutrition Assessment: 76 year old woman with PMHx: EtOH cirrhosis, COPD, hypothyroidism who presents with Right shoulder,Right chest, and RUQ pain. Initially presented to [place] ED on 12/27, +CT scan completed: trivial coronary calcification was seen multiple small area of the LAD . Patient then transferred to [facility] d/t concern for cecal pneumatosis as well as pneumomediastinum. Underwent s/p thoracentesis of 525 mL on 12/29/21. +KUB this morning: No pneumatosis intestinalis or pneumatosis coli. Nonobstructive bowel gaspattern . GenSurg with no plans for surgical intervention at this time. +CTS following for poor respiratory status, and no intervention of pneumomediastinum. Remains on HHFNC. MASTER SCHEDULER recommending: Easy To Chew Menu with Thin Liquids diet when able to advance. This morning, NPO for chest tube placement. Visited patient on her return to the room. Per RN patient with suboptimal intake BUSINESS OBJECTS DEVELOPER and since admit. Willing to try ONS [...] Supplement Anthropometric Measures: Height: 5' (152.4 cm) [place] Body Weight (IBW): 100 lbs (45 kg) [...] Requirements: Admission Energy (kcal/day): 25-28 kcals/kg = 0930-6241 kcals/day Weight Used for Protein Requirements: Admission [...] to determine Estefania North RD, LD Contact: [phone] [employer] .fr [place] * Nini Thomas, DESTINY - STOCK OR DELIVERY CLERK - 01/01/2022 1:33 PM EDT Images from [...] lactic acid down trending - active smoker BUSINESS OBJECTS DEVELOPER - hypertonic saline nebs - duonebs Large R pleural effusion - thoracentesis 12/29/21 with 500ML removed - R pigtail placed 01/01/22 for recurrence pleural effusion - pending pulm consult Pneumomediastinum - CTS following, no plans for intervention at this time Cecal pneumatosis - serial films - per SICU team Debility - PT/OT when medically stable - lived alone 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 TBD * JONH Ruiz - 01/01/2022 12:50 PM EDT Facility/Department: [facility] ICU T2 Dysphagia Treatment Note NAME: Jaimie [...] Date 01/01/22 0000 - 01/01/22 2359 Shift 6771-4417 6974-0682 4360-3590 24 Hour Total INTAKE Shift Total(mL/kg) OUTPUT [...] Surgery PGY-2 01/01/22 10:44 AM Pager # [phone] This note may have been dictated using [employer] Medical Practice Edition 2.6 and/or Radiation Watch Voice Recognition Feature. The document was proofread; however, unrecognized voice recognition lever miller errors may be present. * Stephanie Olivia [...] RUQ pain. Patient received CT scan at [place] ED and was transferred here with concern [...] IntraVENous Daily DESTINY Philip CNP Stopped at 12/31/2118 melatonin SL liquid 0.3 mg 0.3 mg [...] solution 1 ampule 1 ampule Inhalation Q4H WA Monika Araujo MD 1 ampule at 12/31/212216 labetalol [...] Date 01/01/22 0000 - 01/01/22 2359 Shift 9206-1533 7781-1375 8577-8298 24 Hour Total INTAKE Shift Total(mL/kg) OUTPUT [...] Radiology ACCESSION EXAM DATE/TIME PROCEDURE ORDERING PROVIDER [id number] 12/30/2021 07:53 EDT CR Abdomen AP [id number] ISABEL VICK CPT code 92605 Reason For Exam (CR Abdomen AP) assess [...] Radiology ACCESSION EXAM DATE/TIME PROCEDURE ORDERING PROVIDER [id number] 12/29/2021 10:58 EDT CR Abdomen AP [id number] -NATHALIENANCI JIIL CPT code 78556 Reason For Exam (CR Abdomen AP) distention, [...] Tomography ACCESSION EXAM DATE/TIME PROCEDURE ORDERING PROVIDER [id number] 12/27/2021 14:[address] Thorax w/ Contrast [id number] MONIKA AYOUB CPT code 97678 Q9967 Reason For Exam (CT Thorax w/ [...] Dictated: 12/27/2021 3:37 pm Dictating Physician: MD BANKS CHRISTOPHER Signed Date and Time:12/27/2021 3:46 pm Signed by: MD BANKS CHRISTOPHER Transcribed Date and Time: 12/27/2021 3:37 XR CHEST PORTABLE Result Date: 12/30/2021 Patient Name: JAIMIE MCGOVERN Diagnostic Radiology ACCESSION EXAM DATE/TIME PROCEDURE ORDERING PROVIDER [id number] 12/30/2021 06:05 EDT CR Chest Portable MD MACIEL ANDREW CPT code 36105 Reason For Exam (CR Chest Portable) patient [...] Radiology ACCESSION EXAM DATE/TIME PROCEDURE ORDERING PROVIDER [id number] 12/29/2021 05:47 EDT CR Chest Portable [id number] -LEE ANNJYOTI MONIKA CPT code 35070 Reason For Exam (CR Chest Portable) pneumomediastinum [...] Radiology ACCESSION EXAM DATE/TIME PROCEDURE ORDERING PROVIDER [id number] 12/29/2021 00:49 EDT CR Chest Portable MD MACIEL ANDREW CPT code 42464 Reason For Exam (CR Chest Portable) patient [...] Radiology ACCESSION EXAM DATE/TIME PROCEDURE ORDERING PROVIDER [id number] 12/28/2021 12:22 EDT CR Chest Portable MD GONZALEZ DAVID CPT code 68078 Reason For Exam (CR Chest Portable) s/p [...] Radiology ACCESSION EXAM DATE/TIME PROCEDURE ORDERING PROVIDER [id number] 12/28/2021 05:56 EDT CR Chest Portable [id number] -MONIKA ARAUJO CPT code 57165 Reason For Exam (CR Chest Portable) pneumomediastinum [...] Ultrasound ACCESSION EXAM DATE/TIME PROCEDURE ORDERING PROVIDER [id number] 12/29/2021 16:07 EDT US Thora-Aspir Pleura w/ [id number] -GAYLE, Image MONIKA CPT code 65964 Reason For Exam (US Thora-Aspir Pleura w/ [...] w 20KCL@50 - 01/01 K 4.1 from 2. - 12/31 add KCL 40meq BID, mag [...] CXRs. Leukocytosis 11.8 from 7.8. Consult Pulmonology. Nufli06bw IV once. Obtain peripheral IV and discontinue [...] aldactone --> maintenance inhalers Gastrointestinal system - MASTER SCHEDULER - easy chew - LFTs wnl - [...] MD Division of Trauma Department of Surgery [facility] Pager: [phone] ~~~~~~~~~~~~~~~~~~~~~~~~~~~~~~~~~~~~~~~~~~~~~~~~~~~~~~~~~~~~~ This note may have been dictated using [employer] Medical Practice Edition 2.6 and/or Radiation Watch Voice Recognition Feature. The document was proofread; however, unrecognized voice recognition lever miller errors may be present. * Mily Duarte - 12/31/2021 12:37 PM EDT Physical Therapy Facility/Department: [facility] ICU T2 Physical Therapy Initial Assessment Name: Jaimie Mcgovern : 1945 Date of Service: 12/31/2021 Discharge Recommendations: Subacute/Retirement Facility Patient Diagnosis(es): The encounter diagnosis was [...] No Position Activity Restriction Other position/activity restrictions: julissa PRABHAKAR, farrah Subjective General Chart Reviewed: Yes Patient assessed for rehabilitation services?: Yes Family / Caregiver Present: No Diagnosis: Pneumatosis of intestines Follows Commands: Within Functional Limits Subjective Subjective: Pt supine in bed upon arrival. Per nurse, pt going for CT scan soon but OK to be seen. Social/Functional History Social/Functional History Lives With: Alone Type of Home: (Shelter) Home Layout: One level Home Access: Level entry Bathroom Shower/Tub: Tub/Shower unit Bathroom Toilet: Standard Bathroom Equipment: Grab bars in shower, Shower chair Bathroom Accessibility: Accessible Home Equipment: Cane, Walker, rolling (Pt unclear how often she is using these devices.) Receives Help From: Family ADL Assistance: Independent Homemaking Assistance: Needs assistance Homemaking Responsibilities: No Ambulation Assistance: Independent Transfer Assistance: Independent Active Head Of History: No Mode of Transportation: Family Occupation: Retired [...] too far forward. OutComes Score AM-PAC Score [facility] Inpatient Mobility Raw Score : 15 (12/31/21 [facility]) [facility] Inpatient T-Scale Score : 39.45 (12/31/211234) Mobility [...] Plan of Care supervision is transferred to [facility] Rehab Department Physical Therapist. Goals and/or treatment plan was established in collaboration with patient/family/other representatives. Therapy Time Individual Concurrent Group Co-treatment Time In 1043 Time Out 1058 Minutes 15 Timed Code Treatment Minutes: 15 Minutes This physical therapist wore appropriate PPE during therapy session. Mily Duarte, SPT * JOHN Ruiz - 12/31/2021 12:13 PM EDT Facility/Department: [facility] ICU T2 Dysphagia Treatment Note NAME: Jaimie [...] Thin Liquids. OK for PO meds with water pollution control inspector. Willcontinue the dysphagia plan of care to [...] Date 12/31/21 0000 - 12/31/21 2359 Shift 4384-0456 9993-1909 8021-6000 24 Hour Total INTAKE P.O.(mL/kg/hr) 0(0) 0 [...] Surgery PGY-2 12/31/21 10:48 AM Pager # [phone] This note may have been dictated using [employer] Medical Practice Edition 2.6 and/or Radiation Watch Voice Recognition Feature. The document was proofread; however, unrecognized voice recognition lever miller errors may be present. * Kristopher Todd, UTILITY DIVISION PROJECT MANAGER - REGISTERED VASCULAR TECHNOLOGIST (RVT) - 12/31/2021 9:37 AM EDT Images from the original note were not included. [facility] Geriatric Medicine Inpatient Consult Service Admission Date: [...] eGFR >90.0 >60 mL/min EGFR IF NonAfrican Turkmen >90.0 >60 mL/min Calcium 7.4 (L) 8.4 [...] 0.4 (L) 1.0 - 4.3 10*3/uL Absolute Aurora # 0.7 0.0 - 0.8 10*3/uL Absolute Eos # 0.0 0.0 - 0.5 10*3/uL Absolute Baso # 0.0 0.0 - 0.2 10*3/uL Lab Results Component Value Date TSH 2.263 12/29/2021 Lab Results Component Value Date [id number] 459 12/30/2021 No results found for: VITD25 [...] RUQ pain. Patient received CT scan at [place] ED and was transferred here with concern [...] 15 g 15 g Oral PRN DESTINY Phiilp CNP dextrose 50 % IV solution 12.5 [...] TID DESTINY Philip CNP Stopped at 12/30/21 2344 ipratropium-albuterol (DUONEB) nebulizer solution 1 ampule 1 ampule Inhalation Q4H LA Monika Araujo MD 1 ampule at 12/30/212019 [...] IVPB extended infusion (premix) 4,500 mgIntraVENous Q6H aYriel Beasley MD 33.3 mL/hr at 12/31/21 0435 [...] 5-40 mL 5-40 mL IntraVENous PRN Monika Arajuo MD 0.9 % sodium chloride infusion IntraVENous [...] Monika Araujo MD 1 tablet at 12/30/217 bisacodyl (DULCOLAX) EC tablet 5 mg 5 [...] 109/55 -- -- 66 20 -- 12/30/21 09 110/75 -- -- 79 16 95 % 12/30/21 0813 (!) 101/53 97.3 F (36.3 C) Temporal 72 20 -- 12/30/21 0802 -- -- -- 70 22 98 % 12/30/21 08 (!) 101/53 -- -- 63 21 98 [...] Radiology ACCESSION EXAM DATE/TIME PROCEDURE ORDERING PROVIDER [id number] 12/30/2021 07:53 EDT CR Abdomen AP [id number] -ISABEL [place] CPT code 98429 Reason For Exam (CR Abdomen AP) assess [...] Radiology ACCESSION EXAM DATE/TIME PROCEDURE ORDERING PROVIDER [id number] 12/29/2021 10:58 EDT CR Abdomen AP [id number] -NATHALIE, ANEIL CPT code 22050 Reason For Exam (CR Abdomen AP) distention, [...] Tomography ACCESSION EXAM DATE/TIME PROCEDURE ORDERING PROVIDER [id number] 12/27/2021 14:[address] Thorax w/ Contrast [id number] MONIKA AYOUB CPT code 83095 Q9967 Reason For Exam (CT Thorax w/ [...] Dictated: 12/27/2021 3:37 pm Dictating Physician: MD BANKS CHRISTOPHER Signed Date and Time:12/27/2021 3:46 pm Signed by: MD BANKS CHRISTOPHER Transcribed Date and Time: 12/27/2021 3:37 XR CHEST PORTABLE Result Date: 12/30/2021 Patient Name: JAIMIE MCOGVERN Diagnostic Radiology ACCESSION EXAM DATE/TIME PROCEDURE ORDERING PROVIDER [id number] 12/30/2021 06:05 EDT CR Chest Portable MD MACIEL ANDREW CPT code 22055 Reason For Exam (CR Chest Portable) patient [...] Radiology ACCESSION EXAM DATE/TIME PROCEDURE ORDERING PROVIDER [id number] 12/29/2021 05:47 EDT CR Chest Portable Jb -LEE ANNJYOTI MONIKA CPT code 78869 Reason For Exam (CR Chest Portable) pneumomediastinum [...] Radiology ACCESSION EXAM DATE/TIME PROCEDURE ORDERING PROVIDER [id number] 12/29/2021 00:49 EDT CR Chest Portable MD MACIEL ANDREW CPT code 24580 Reason For Exam (CR Chest Portable) patient [...] Radiology ACCESSION EXAM DATE/TIME PROCEDURE ORDERING PROVIDER [id number] 12/28/2021 12:22 EDT CR Chest Portable MD GONZALEZ DAVID CPT code 75541 Reason For Exam (CR Chest Portable) s/p [...] Radiology ACCESSION EXAM DATE/TIME PROCEDURE ORDERING PROVIDER [id number] 12/28/2021 05:56 EDT CR Chest Portable [id number] -MONIKA ARAUJO CPT code 46185 Reason For Exam (CR Chest Portable) pneumomediastinum [...] Dictated: 12/28/2021 8:18 am Dictating Physician: MD MARTIN, KANDI Signed Date and Time: 12/28/2021 8:28 am Signed by: MD SALAZAR AHMAD Transcribed Date and Time: 12/28/2021 8:18 US GUIDE THORACENTESIS Result Date: 12/30/2021 Patient Name: JAIMIE MCGOVERN Ultrasound ACCESSION EXAM DATE/TIME PROCEDURE ORDERING PROVIDER [id number] 12/29/2021 16:07 EDT US Thora-Aspir Pleura w/ [id number] -MARGIOTTA, Image MONIKA CPT code 27662 Reason For Exam (US Thora-Aspir Pleura w/ [...] suspect underlying lung disease Gastrointestinal system - MASTER SCHEDULER - puree with thin - LFTs wnl [...] MD Division of Trauma Department of Surgery [facility] ~~~~~~~~~~~~~~~~~~~~~~~~~~~~~~~~~~~~~~~~~~~~~~~~~~~~~~~~~~~~~~~~~~~~~~~ This note may have been dictated using [employer] Medical Practice Edition 2.6 and/or Radiation Watch Voice Recognition Feature. The document was proofread; however, unrecognized voice recognition lever miller errors may be present. * Christiano Gonzalez [...] Date 12/30/21 0000 - 12/30/21 2359 Shift 0036-0719 5406-0863 2793-1040 24 Hour Total INTAKE P.O.(mL/kg/hr) 120(0.3) 120 [...] 12/30/2021 10:13 AM EDT Occupational Therapy Facility/Department: [facility] ICU T2 Occupational Therapy Initial Assessment Name: Jaimie Mcgovern : 1945 Date of Service: 12/30/2021 Discharge Recommendations: Subacute/Retirement Facility Patient Diagnosis(es): The encounter diagnosis was [...] Ambulation Assistance: Independent Transfer Assistance: Independent Active Head Of History: No Mode of Transportation: Family Occupation: Retired [...] due to decreased ROM, 3+/5 distally. Poor deburr operator strength) Sensation: (Pt reports no acute changes) [...] Learning: Cognition Education Outcome: Continued education needed [facility] Score [facility] Daily Activity Inpatient How much help for putting on and taking off regular lower body clothing?: Total How much help for Bathing?: Total How much help for Toileting?: Total How much help for putting on and taking off regular upper body clothing?: A Lot How much help for taking care of personal grooming?: A Lot How much help for eating meals?: A Little [facility] Inpatient Daily Activity Raw Score: 10 AM-PAC Inpatient ADL T-Scale Score : 27.31 ADL Inpatient CMS 0-100% Score: 74.7 ADL Inpatient [facility] G-Code Modifier : CL Goals Short [...] duration of the session with this patient. Jovi Boykin/OT * JOHN Shepherd - 12/30/2021 9:45 AM EDT Speech Language Pathology Facility/Department: [facility] T2 Speech Language Pathology Clinical Bedside Swallow Evaluation NAME:Jaimie Mcgovern : 1945 (76 y.o.) ROOM: [place] [address] ADMISSION DATE: 12/27/2021 PATIENT DIAGNOSIS(ES): Pneumatosis of intestines [K63.89] Chief Complaint Patient presents with Abdominal Pain Transfer from [place]. Pt c/o abdominal pain. Patient Active Problem [...] 12/30/2021 Evaluating Therapist: Glenna Colon MA, CCC- MASTER SCHEDULER Chest XRAY: 12/29/21 Findings: Right internal jugular [...] congestion." Chief Complaint: Abdominal Pain- Transfer from [place]. Pt c/o abdominal pain. Reason for Referral Jaimie Mcgovern was referred for a bedside swallow evaluation to assess the efficiency of her swallow function, identify signs and symptoms of aspiration, identify risk factors, and make recommendations regarding safe dietary consistencies, effective compensatory strategies, and safe eating environment. Jaimie Mcgovern is a 76 y.o. female who presents to the emergency department from transfer from [facility] . She had originally presented to [facility] via EMS due to pain in [...] Patient alert and resting in bed upon MASTER SCHEDULER arrival, RN in room throughout session. Patient fully participate throughout session though required consistent cues from MASTER SCHEDULER to maintain level of alertness for safe [...] strategies. Recommend medications in puree asable. Recommend MASTER SCHEDULER to follow with dysphagia plan of care. Requires MASTER SCHEDULER Intervention: Yes Recommendations: Dysphagia treatment Diet Solids Recommendation: Pureed Liquid Consistency Recommendation: Thin Compensatory Swallowing Strategies : Upright as possible for all oral intake;Small bites/sips;Totalfeed Recommended Form of Meds: Meds in puree Duration of Treatment: 3x/week for 2 weeks Prognosis Good Education MASTER SCHEDULER educated patient and RN on safe swallow [...] worn throughout this session. 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 [facility] Geriatric Medicine Inpatient Consult Service Admission Date: [...] Able to tell me she's in the [facility] but is confused otherwise. Complains of [...] eGFR >90.0 >60 mL/min EGFR IF NonAfrican Turkmen >90.0 >60 mL/min Calcium 7.7 (L) 8.4 [...] 0.7 (L) 1.0 - 4.3 10*3/uL Absolute Aurora # 0.6 0.0 - 0.8 10*3/uL Absolute [...] eGFR >90.0 >60 mL/min EGFR IF NonAfrican Turkmen >90.0 >60 mL/min Calcium 7.7 (L) 8.4 [...] 2.263 12/29/2021 Lab Results Component Value Date [id number] 459 12/30/2021 No results found for: VITD25 Reviewed: active problem list, medication list, lab results, imaging * Soctt Durant MD - 12/30/2021 6:57 AM EDT [...] Date 12/30/21 0000 - 12/30/21 2359 Shift 5099-0591 0900-4751 7573-9147 24 Hour Total INTAKE P.O.(mL/kg/hr) 120 120 [...] This note may have been dictated using [employer] Practice Edition 2.6 and/or Radiation Watch Voice Recognition Feature. The document was proofread; however, unrecognized voice recognition lever miller errors may be present. * DESTINY Philip CNP - 12/30/2021 6:13 AM EDT Daily SICU Progress Note Nurse Practitioner 12/30/2021 12:22 PM Admit Date: 12/27/2021 Post Hospital Day 2 History of Present illness: 76 y.o. female with significant past medical history of cirrhosis, COPD, hypothyroidism who presents with R shoulder, R chest, and RUQ pain. Patient received CT scan at [place] [facility] and was transferred here with concern [...] Q4H GINGER Araujo MD 1 ampule at 12/30/21 1105 [...] is similar to the chronic pain that yeisons had for years due to her liver [...] Date 12/30/21 0000 - 12/30/21 2359 Shift [id number] 0627-7427 8596-7035 24 Hour Total INTAKE P.O. 120 120 I.V.(mL/kg/hr) 580(1.3) 580 IV Piggyback 200 360 560 Shift Total(mL/kg) 900(16.1) 360(6.4) 1260(22.5) OUTPUT Urine(mL/kg/hr) 615(1.4) 450 1065 Shift Total(mL/kg) 615(11) 450(8) 1065(19) Weight (kg) 56.1 56.1 56.1 56.1 Last BM: BUSINESS OBJECTS DEVELOPER Diet: Pureed with thin liquids (per speech) [...] Radiology ACCESSION EXAM DATE/TIME PROCEDURE ORDERING PROVIDER [id number] 12/30/2021 07:53 EDT CR Abdomen AP [id number] ISABEL VICK CPT code 01840 Reason For Exam (CR Abdomen AP) assess [...] Radiology ACCESSION EXAM DATE/TIME PROCEDURE ORDERING PROVIDER [id number] 12/29/2021 10:58 EDT CR Abdomen AP [id number] -BLAYNE ZELAYA CPT code 08471 Reason For Exam (CR Abdomen AP) distention, [...] Tomography ACCESSION EXAM DATE/TIME PROCEDURE ORDERING PROVIDER [id number] 12/27/2021 14:[address] Thorax w/ Contrast [id number] -LOBITOTTA, MONIKA CPT code 91026 Q9967 Reason For Exam (CT Thorax w/ [...] Dictated: 12/27/2021 3:37 pm Dictating Physician: MD BANKS CHRISTOPHER Signed Date and Time:12/27/2021 3:46 pm Signed by: MD BANKS CHRISTOPHER Transcribed Date and Time: 12/27/2021 3:37 XR CHEST PORTABLE Result Date: 12/30/2021 Patient Name: JAIMIE MCGOVERN Diagnostic Radiology ACCESSION EXAM DATE/TIME PROCEDURE ORDERING PROVIDER [id number] 12/30/2021 06:05 EDT CR Chest Portable MD MACIEL ANDREW CPT code 36450 Reason For Exam (CR Chest Portable) patient [...] Radiology ACCESSION EXAM DATE/TIME PROCEDURE ORDERING PROVIDER [id number] 12/29/2021 05:47 EDT CR Chest Portable MONIKA PERES CPT code 79111 Reason For Exam (CR Chest Portable) pneumomediastinum [...] Radiology ACCESSION EXAM DATE/TIME PROCEDURE ORDERING PROVIDER [id number] 12/29/2021 00:49 EDT CR Chest Portable MD MACIEL ANDREW CPT code 86996 Reason For Exam (CR Chest Portable) patient [...] Radiology ACCESSION EXAM DATE/TIME PROCEDURE ORDERING PROVIDER [id number] 12/28/2021 12:22 EDT CR Chest Portable MD GONZALEZ DAVID CPT code 07162 Reason For Exam (CR Chest Portable) s/p [...] Radiology ACCESSION EXAM DATE/TIME PROCEDURE ORDERING PROVIDER [id number] 12/28/2021 05:56 EDT CR Chest Portable [id number] MONIKA AYOUB CPT code 81031 Reason For Exam (CR Chest Portable) pneumomediastinum [...] Ultrasound ACCESSION EXAM DATE/TIME PROCEDURE ORDERING PROVIDER [id number] 12/29/2021 16:07 EDT US Thora-Aspir Pleura w/ [id number] -MARGISABELLATTA, Image MONIKA CPT code 55844 Reason For Exam (US Thora-Aspir Pleura w/ [...] - Aggressive pulmonary hygiene Gastrointestinal system - MASTER SCHEDULER - puree with thin - LFTs wnl [...] MD Division of Trauma Department of Surgery [facility] ~~~~~~~~~~~~~~~~~~~~~~~~~~~~~~~~~~~~~~~~~~~~~~~~~~~~~~~~~~~~~~~~~~~~~~~ This note may have been dictated using [employer] Medical Practice Edition 2.6 and/or Radiation Watch Voice Recognition Feature. The document was proofread; however, unrecognized voice recognition lever miller errors may be present. * Maki Carey RD, LD - 12/29/2021 4:56 PM EDT Comprehensive Nutrition Assessment Type and Reason for Visit: Initial, Consult ([facility] Wound Care Prevention 12/29/21) Nutrition Recommendations/Plan: Continue NPO. If po is contraindicated can provide EN. Recommend for EN: Peptide Based (Vital 1.5) @ 35 mls/hour = 1260 kcals, 56g protein, 641 mls free H20 = 24 kcals/kg + 1.07g protein/kg ABW (52.2kgs). Monitor nutritional status. Malnutrition Assessment: Malnutrition Status: At risk for malnutrition (Comment) (12/29/21 9843) Context: Acute Illness Findings of the 6 clinical characteristics of malnutrition: Energy Intake: Mild decrease in energy intake (Comment) Weight Loss: Unable to assess Body Fat Loss: Unable to assess Muscle Mass Loss: Unable to assess Fluid Accumulation: No significant fluid accumulation Superintendent Production Strength: Not Performed Nutrition Assessment: Pt is a 76 y.o. female with PMH significant for alcohol related liver cirrhosis (diagnosed ~5 yearsago), +1 ppd smoker, Buerger s disease (thromboangiitis obliterans), drinks ~3 glasses of wine daily, open vicenta, appy, and hysterectomy who presents [facility] from [facility] for concern for pneumatosis of the [...] Meds Anthropometric Measures: Height: 5' (152.4 cm) Bolton Body Weight (IBW): 100 lbs (45 kg) Admission Body Weight: 115 lb (52.2 kg) (stated on admission) Current Body Weight: 122 lb 2.2 oz (55.4 kg), 122.1 % IBW. Weight Source: (estimated) Current BMI (kg/m2): 23.9 BMI Categories: Normal Weight (BMI 18.5-24.9) Estimated Daily Nutrient Needs: Energy Requirements Based On: Kcal/kg Weight Used for Energy Requirements: Admission Energy (kcal/day): 25-28 kcals/kg = 1000-1991 kcals/day Weight Used for Protein Requirements: Admission [...] determine Maki Carey RD, JOSELUIS Contact: Pager #[phone] * Julio César Raygoza MD - 12/29/2021 4:42 PM EDT CARDIOLOGY CONSULTATION Patient Name: Jaimie Mcgovern : 1945 Reason for Consultation: Elevated troponin History of Present Illness: Jaimie Mcgovern is 76 years old. She was transported from [facility] to our institution due to chest [...] 01:39 AM PO2ART 64.8 12/29/2021 01:39 AM RMQ3IEN 31.1 12/29/2021 01:39 AM INR: Recent Labs [...] in a sinus rhythm. I did a hchpv-ph-hmux echocardiogram which showed dynamic left ventricular function [...] was made to ensureaccuracy; however, inadvertent computerized lever miller errors may be present. * Nadira Sanchez - 12/29/2021 2:31 PM EDT Occupational Therapy Facility/Department: [facility] ICU T2 Occupational Therapy Initial Assessment Name: Jaimie Mcgovern : 1945 Date of Service: 12/29/2021 OT eval and treat orders received. RN requested to hold therapy at this time d/t MD noting pt with worsening condition. Will re-attempt at later date. Nadira Sanchez, S/OT * Mily Duarte - 12/29/2021 11:34 AM EDT Physical Therapy PT evaluation orders received. Per RN, hold PT. Per MD notes worsening condition. Will reattempt PTevaluation at a later date or as schedule allows. Mily Duarte, SPT * DESTINY Matthews NP - 12/29/2021 9:58 AM EDT Images from the original note were not included. [facility] Geriatric Medicine Inpatient Consult Service Admission Date: [...] Dtr confirms 'full code' with palliative care REGISTERED VASCULAR TECHNOLOGIST (RVT) Given multiple doses of lorazepam per CIWA. [...] 0.4 (L) 1.0 - 4.3 10*3/uL Absolute Aurora # 0.4 0.0 - 0.8 10*3/uL Absolute [...] eGFR >90.0 >60 mL/min EGFR IF NonAfrican Turkmen >90.0 >60 mL/min Calcium 8.1 (L) 8.4 - 10.4 mg/dL Magnesium Collection Time: 12/29/21 1:48 AM Result Value Ref Range Magnesium 1.6 1.6 - 2.3 mg/dL No results found for: TSH No results found for: [id number] No results found for: VITD25 Reviewed: active [...] Date 12/29/21 0000 - 12/29/21 2359 Shift 4818-7587 3925-0486 9928-2402 24 Hour Total INTAKE I.V.(mL/kg) 1500(28.8) 1500(28.8) [...] Date 12/29/21 0000 - 12/29/21 2359 Shift 0165-5924 0948-5324 1352-8932 24 Hour Total INTAKE I.V.(mL/kg) 1500(28.8) 1500(28.8) [...] This note may have been dictated using [employer] Medical Practice Edition 2.6 and/or Radiation Watch Voice Recognition Feature. The document was proofread; however, unrecognized voice recognition lever miller errors may be present. * Isabel Nj, UTILITY DIVISION PROJECT MANAGER - STOCK OR DELIVERY CLERK - 12/29/2021 7:04 AM EDT Department of [...] Date 12/29/21 0000 - 12/29/21 2359 Shift [id number] 0612-8136 2528-6212 24 Hour Total INTAKE I.V.(mL/kg/hr) 1500 1500 [...] Tylenol, Morphine IV prn, Oxy prn - CILA protocol for likely withdrawal (2-3 boxes of [...] Staff: Will discuss with Dr. Erendira Nj CNP Associated attestation - Erendira Maciel MD - [...] - Aggressive pulmonary hygiene Gastrointestinal system - MASTER SCHEDULER - LFTs wnl - history of etoh [...] MD Division of Trauma Department of Surgery [facility] ~~~~~~~~~~~~~~~~~~~~~~~~~~~~~~~~~~~~~~~~~~~~~~~~~~~~~~~~~~~~~~~~~~~~~~~ This note may have been dictated using [employer] Medical Practice Edition 2.6 and/or Radiation Watch Voice Recognition Feature. The document was proofread; however, unrecognized voice recognition lever miller errors may be present. * Blayne Zelaya MD - 12/28/2021 11:09 AM EDT Family Communication Number Called: N/A Name of Designated Family Shaker Plate Operator: Patient's son Family Shaker Plate Operator Updated on the Following: Patient and family at the bedside were updated on work-up and plan of care. Questions answered. Informed consent obtained for central line placement. Risk benefits and alternatives to the procedure were explained at length. Questions were answered. Patient is agreeable to proceeding with central line placement. Blayne Zelaya MD PGY3, General Surgery Pager #[phone] * Christiano Gonzalez MD - 12/28/2021 8:11 [...] [id number] documented in this encounterSUMMA Work Phone: 1(364) 291-114609-15-2022 Hospital Discharge instructions* Discharge Instr - OLIVERIO* Leonarda Casillas RN - 01/07/2022 11:13 AM EDT Continuity of Care Form Patient Name: Jaimie Mcgovern : 1945 Admit date: 12/27/2021 Discharge date: 01/07/22 Code Status Order: Full Code Advance Directives: Admitting Physician: Johnny Berrios MD PCP: Michael Cox MD Discharging Nurse: Leonarda Casillas Discharging Hospital Unit/Room#: [id number] Discharging Unit Emergency Contact: Extended Emergency Contact [...] Assisted Dressing Assisted Toileting Assisted Feeding Independent Moving Picture Operator Independent Med Delivery whole Wound Care Documentation and Therapy: Wound 01/02/22 Thigh Distal;Right (Active) Wound Etiology Skin Tear 01/07/22 0847 Dressing Status Clean;Dry;Intact 01/06/221999 Wound Cleansed Soap and water 01/03/22 0727 Dressing/Treatment Foam 01/07/22 0847 Wound Assessment Dry 01/07/22 0847 Drainage Amount None 01/06/221999 Odor None 01/06/221999 Ellia-wound Assessment Other (Comment) 01/07/22 0847 Number of [...] Agency Name: [facility] Address: [address] [phone] Fax: Dialysis Facility (if applicable) Name: Address: Dialysis Schedule: Phone: Fax: Glass Grinder/Installation And Repair Technician signature: PHYSICIAN SECTION Prognosis: Fair Condition at [...] above information and [facility] diagnosis listed and that she requires Retirement Facility for greater 30 days. Update Admission H&P: No change in H&P PHYSICIAN SIGNATURE: documented in this encounterSUMMA Work Phone: 1(641) 729-100107-29-2022 Miscellaneous Notes* Telephone Encounter - Elizabeth Guido [...] see if placement could be done at [place]. Elizabeth Guido Ma * Telephone Encounter - [...] and I want to go to a Shelter.". Daughter said she is not sure what she needs to do and would like some help. Let her know I would send message through to provider and SW. documented in [facility] NotePatient Outreach (INTMMN) JAIMIE AVENDANO ([id number]) 1945 F Date Time Provider Department 10/21/21 MICHAEL COX During your visit today, we recorded the following information about you: Allergies As of Date: 10/21/2021 Noted Allergy Reaction LATEX 11/19/2008 Z LADAN (AZITHROMYCIN) 01/11/2008 Comments: did not work ZIAC (BISOPROLOL-HYDROCHLOROTHIAZ*01/11/2008 Comments: did not work Date Reviewed: 07/11/2021 Reviewed by: Graciela Chamorro LPN - Fully Assessed Visit Diagnosis:Encounter for screening mammogram for breast cancer [Z12.31] Order(s):[facility] SCREENING [1160300] Order #: [id number] FUTURE Prescriptions as of 10/26/2021 - levothyroxine [...] Neuropathy (HCC) [G62.9] 11/17/2017 Encounter Status:Closed by [employer], PRODUSER on 10/26/21[facility] 07-11-2021 NoteHNO ID: [id number] Author: Michael Cox MD Service: ? Author [...] of evaluating that over the weekend. To [facility] ER. ER passport completed for transfer of care.[facility] 01-30-2014 History of Past illness Narrative* Problem Noted Date Resolved Date DIABETES MELLITUS TYPE II-UNCOMPL 01/30/2014 documented as of this encounter (statuses as of 10/26/2021) [facility] History of Past illness Narrative* Problem Noted Date Resolved Date DIABETES MELLITUS TYPE II-UNCOMPL 01/30/2014 documented as of this encounter (statuses as of 04/18/2022) [facility] History of Past illness Narrative* Problem Noted Date Resolved Date DIABETES MELLITUS TYPE II-UNCOMPL 01/30/2014 documented as of this encounter (statuses as of 08/20/2022) [facility]* Diagnosis Onset Date Resolution Status PVD (peripheral vascular disease) acute Tobacco user [facility] Work Phone: Evaluation note* Diagnosis Encounter for screening mammogram for breast cancer documented in this encounter [facility] noteNo assessment information availableWMercy Health St. [facility] Work Phone: Evaluation note* Diagnosis Pneumomediastinum [...] of chest tube [facility] Work [facility] note* Diagnosis Onset Date Resolution Status Claudication of right lower extremity chronic [facility] Work Phone: Evaluation note* Diagnosis Onset Date Resolution Status Claudication of right lower extremity chronic PVD (peripheral vascular disease) [facility] Work Phone: Evaluation note* Diagnosis Onset Date Resolution Status PVD (peripheral vascular disease) [facility] Work Phone: Hospital Discharge instructionsAmbulatory Orders* Vascular Location: None Selected [facility] Work Phone: Reason for referral (narrative)* Diagnostic Procedure Only (Routine) - Pending Review Specialty Diagnoses / Procedures Referred By Alessandro t Referred To Contact [facility] Diagnoses Encounter for screening mammogram for breast cancer Procedures JACQUI SCREENING SCREENING MAMMOGRAPHY BI 2-VIEW BREAST INC CAD Michael Cox MD [address] [place] [address] [facility] [address] [place] [address] Referral ID Status Reason Start Date Expiration Date Visits Requested Visits Authorized [id number] Pending Review Auto-Generat ed Referral 10/21/2021 11/20/2022 1 1 [facility] for referral (narrative)No reason for referral information availableWMercy Health St[facility] Work Phone: Chief Complaint and Reason for Visit Chief Complaint b/l toes blue and pa inful PAIN LT LEG PVD TEST 08/05 Reason for Visit PVD (peripheral vasc ular disease) Tobacco user Chief Complaint flank pain Chief Complaint flank pain LABWORK LABWORK NEW SYMPTOMS/CONCERNS Chief Complaint LABWORK LABWORK RESIDENTIAL LAB WORK MONTHLY EXAM NEW SYMPTOMS/CONCERNS RESIDENTIAL LAB WORK Chief Complaint LABWORK LABWORK RESIDENTIAL LAB WORK MONTHLY EXAM NEW SYMPTOMS/CONCERNS RESIDENTIAL LABWORK RESIDENTIAL LAB WORK Chief Complaint LABWORK RESIDENTIAL LAB WORK MONTHLY EXAM NEW SYMPTOMS/CONCERNS RESIDENTIAL LABWORK RESIDENTIAL LAB WORK RESIDENTIAL LABWORK NEW SYMPTOMS/CONCERNS Chief Complaint RESIDENTIAL LAB WOR K MONTHLY EXAM NEW SYMPTOMS/CONCERNS RESIDENTIAL LABWORK RESIDENTIAL LAB WORK RESIDENTIAL LABWORK NEW SYMPTOMS/CONCERNS MONTHLY EXAM LABWORK MONTHLY EXAM Chief Complaint RESIDENTIAL LABWORK RESIDENTIAL LAB WORK RESIDENTIAL LABWORK NEW SYMPTOMS/CONCERNS MONTHLY EXAM LABWORK MONTHLY EXAM RESIDENTIAL LABWORK Chief Complaint RESIDENTIAL LABWORK MONTHLY EXAM RESIDENTIAL LABWORK NEW CONCERN RESIDENTIAL LAB WORK MONTHLY EXAM NEW CONCERN RESIDENTIAL LABWORK Chief Complaint RESIDENTIAL LABWORK MONTHLY EXAM RESIDENTIAL LABWORK NEW CONCERN RESIDENTIAL LAB WORK MONTHLY EXAM NEW CONCERN RESIDENTIAL LABWORK RESIDENTIAL LABWORK Chief Complaint RESIDENTIAL LABWORK NEW CONCERN RESIDENTIAL LAB WORK MONTHLY EXAM NEW CONCERN RESIDENTIAL LABWORK RESIDENTIAL LABWORK MONTHLY EXAM RESIDENTIAL LABWORK Peripheral vascular disease, unspecified Chief Complaint NEW CONCERN RESIDENTIAL LAB WORK MONTHLY EXAM NEW CONCERN RESIDENTIAL LABWORK RESIDENTIAL LABWORK MONTHLY EXAM NEW CONCERN RESIDENTIAL LABWORK Peripheral vascular disease, unspecified MONTHLY EXAM CONSULT-PVD LABWORK right hip pain Reason for Visit Claudication of righ t lower extremity Chief Complaint RESIDENTIAL LABWORK MONTHLY EXAM NEW CONCERN RESIDENTIAL LABWORK Peripheral vascular disease, unspecified MONTHLY EXAM CONSULT-PVD LABWORK right hip pain NEW CONCERN NEW CONCERN RESIDENTIAL LABWORK Reason for Visit Claudication of righ t lower extremity Chief Complaint NEW CONCERN RESIDENTIAL LABWORK Peripheral vascular disease, unspecified MONTHLY EXAM CONSULT-PVD LABWORK right hip pain NEW CONCERN NEW CONCERN RESIDENTIAL LABWORK MONTHLY EXAM Peripheral vascular disease, unspecified Reason for Visit Claudication of righ t lower extremity Chief Complaint CONSULT-PVD LABWORK right hip pain NEW CONCERN NEW CONCERN RESIDENTIAL LABWORK MONTHLY EXAM RESIDENTIAL LABWORK Peripheral vascular disease, unspecified NEW CONCERN DISCUSS RESULTS RESIDENTIAL LABWORK Reason for Visit Claudication of righ t lower extremity PVD (peripheral vascular disease) Chief Complaint RESIDENTIAL LABWORK MONTHLY EXAM RESIDENTIAL LABWORK Peripheral vascular disease, unspecified NEW CONCERN DISCUSS RESULTS RESIDENTIAL LABWORK LABWORK Reason for Visit PVD (peripheral vasc ular disease) Chief Complaint RESIDENTIAL LABWORK Peripheral vascular disease, unspecified NEW CONCERN DISCUSS RESULTS RESIDENTIAL LABWORK MONTHLY EXAM - MD NEW CONCERN LABWORK LABWORK Reason for Visit PVD (peripheral vasc ular disease) Chief Complaint RESIDENTIAL LABWORK MONTHLY EXAM - MD NEW CONCERN LABWORK MONTHLY EXAM REGISTERED VASCULAR TECHNOLOGIST (RVT) LABWORK MONTHLY EXAM NEW CONCERN NEW CONCERN LABWORK MONTHLY EXAM RESIDENTIAL LAB WORK Chief Complaint NEW CONCERN RESIDENTIAL LABWORK Peripheral vascular disease, unspecified MONTHLY EXAM CONSULT-PVD LABWORK right hip pain NEW CONCERN NEW CONCERN RESIDENTIAL LABWORK MONTHLY EXAM RESIDENTIAL LABWORK Peripheral vascular disease, unspecified Reason for Visit Claudication of righ t lower extremity Chief Complaint Admit Date LABWORK March 30, 2024 5 :00am MONTHLY NOTE April 03, 2024 2:26pm RESIDENTIAL LAB WORK April 27, 2024 5:00am MONTHLY EXAM May 08, 2024 3 :45pm NEW CONCERN May 16, 2024 9 :24am RESIDENTIAL LAB WORK June 01, 2024 4:00am RESIDENTIAL LAB WORK June 07 5:00am MONTHLY EXAM June 21, 2024 11:47am Peripheral vascular disease June 27 8:21am RESIDENTIAL LAB WORK June 29, 2024 5: 00am MONTHLY EXAM July 03, 2024 3:0 4pm Reason for Visit Admit Date PVD (peripheral vascular disease) June 27, 2024 8:21am Chief Complaint Admit Date RESIDENTIAL LAB WORK April 27, 2024 5:00am MONTHLY EXAM May 08, 2024 3 :45pm NEW CONCERN May 16, 2024 9 :24am RESIDENTIAL LAB WORK June 01, 2024 4:00am RESIDENTIAL LAB WORK June 07 5:00am MONTHLY EXAM June 21, 2024 11:47am Peripheral vascular disease June 27, 2 025 8:21am RESIDENTIAL LAB WORK June 29, 2024 5: 00am MONTHLY EXAM July 03, 2024 3:0 4pm PVD July 31, 2024 10:5 9am Chief Complaint Admit Date MONTHLY EXAM May 08, 2024 3 :45pm NEW CONCERN May 16, 2024 9 :24am RESIDENTIAL LAB WORK June 01, 2024 4:00am RESIDENTIAL LAB WORK June 07 5:00am MONTHLY EXAM June 21, 2024 11:47am Peripheral vascular disease June 27, 2 025 8:21am RESIDENTIAL LAB WORK June 29, 2024 5: 00am MONTHLY EXAM July 03, 2024 3:0 4pm PVD July 31, 2024 10:5 9am ADMISSION EXAM July 31, 2024 5:24 pm Chief Complaint Admit Date RESIDENTIAL LAB WORK June 01, 2024 4:00am RESIDENTIAL LAB WORK June 07 5:00am MONTHLY EXAM June 21, 2024 11:47am Peripheral vascular disease June 27, 2 025 8:21am RESIDENTIAL LAB WORK June 29, 2024 5: 00am MONTHLY EXAM July 03, 2024 3:0 4pm PVD July 31, 2024 10:5 9am ADMISSION EXAM July 31, 2024 5:24 pm RESIDENTIAL LAB WORK August 24, 2024 5:00 am Chief Complaint Admit Date PVD July 31, 2024 10:5 9am ADMISSION EXAM July 31, 2024 5:24 pm RESIDENTIAL LAB WORK August 24, 2024 5:00 am [...] Relationship Condition Age at Onset Recorded Date/T onra Unknown Family History?Cance r, Diabetes, Heart Disease [...] Yes July 11, 2021 11:28am Power of Flare Breaker Yes July 11 11:28am Documents on File Type Date Recorded Patient Shaker Plate Operator Expl anation Advance Directive(s) Advance Directive(s) 04/21/2009 10:48 PM Advance Directive Response Recorded Date/ Time Living Will No December 27, 2 022 1:33am Power of Flare Breaker No December 27, 2021 1:33am Documents on File Type Date Recorded Patient Shaker Plate Operator Expl anation ACP-Advance Directive 12/27/2021 Latest Code Status on File Code Status Date Activated Date Inactivated Comments Full Code 12/27/2021 5:57 PM Advance Directive Response Recorded Date/ Time Living Will No December 27, 2 022 12:33am Power of Flare Breaker No December 27, 2021 12:33am Documents on File Type Date Recorded Patient Shaker Plate Operator Expl anation Advance Directive(s) 04/21/2009 10:48 PM Advance Directive Response Recorded Date/ Time Living Will No May 20 9:02am Power of Flare Breaker No May 20, 2022 9:02am Advance Directive Response Recorded Date/ Time Living Will No May 20 10:02am Power of Flare Breaker No May 20, 2022 10:02am Advance Directive Response Recorded Date/ Time Living Will No August 12, 2022 3:01pm Power of Flare Breaker No August 12 3:01pm Advance Directive Response Recorded Date/ Time Name of Medical Power of Flare Breaker [place] (daugh ter) January 30, 2023 4:43pm Living Will Yes January 30 4:43pm Power of Flare Breaker Yes January 30, 023 4:43pm Advance Directive Response Recorded Date/ Time Living Will Yes February 24 10:52am Power of Flare Breaker Yes February 24, 2023 10:52am Name of Medical Power of Flare Breaker [place] (daugh ter) January 30, 2023 3:43pm Advance Directive Response Recorded Date/ Time Living Will Yes February 24 10:52am Power of Flare Breaker Yes February 24, 2023 10:52am Advance Directive Response Recorded Date/ Time Living Will Yes February 24 11:52am Power of Flare Breaker Yes February 24, 2023 11:52am Summary Purpose [...] or prosecute any alcohol or drug abuse patient.[facility] HospitalIn the event this information is protected by the Federal Confidentiality of Alcohol and Drug Abuse Patient Records regulations: The Federal rules restrict any use of the information to criminally investigate or prosecute any alcohol or drug abuse patient.[facility] HospitalIn the event this information is protected by the Federal Confidentiality of Alcohol and Drug Abuse Patient Records regulations: The Federal rules restrict any use of the information to criminally investigate or prosecute any alcohol or drug abuse patient.[facility] Care Teams (unrecognized sec tion and content) [...] Care Provider Active Start: June 07, 2024 Viviana ABBOTT MD Attending Provider Active [...] End: July 31, 2024 Matilda Doherty NP REGISTERED VASCULAR TECHNOLOGIST (RVT)-C Attending Provider Active Start: July 31, 2024 [...] End: May 16, 2024 Matilda Doherty NP REGISTERED VASCULAR TECHNOLOGIST (RVT)-C Attending Provider Active Start: May 16, 2024 [...] Attending Provider Active Start: April 27, 2024 Furnace Attendant Relationship Specialty Start Date End Date Michael Cox MD [address] [place] [address] PCP - General Family Practice 11/17/17 Furnace Attendant Relationship Specialty Start Date End Date Michael Cox MD [address], [place] [id number] PCP - General Family Medicine 12/30/21 Furnace Attendant Relationship Specialty Start Date End Date Michael Cox MD [address], [place] [id number] PCP - General Family Medicine 11/17/17 Team Status: Active Member Role Status Dates No Primary Care Physician Family Provider Active Dr. Michael Cox MD Primary Care Provider Active Team Status: Inactive Member Role Status Dates Dr. Michael Cox MD Primary Care Provider Active Matilda Doherty NP, NP-C Attending Provider Active Team Status: Inactive Member Role Status Dates Dr. Michael Cxo MD Primary Care Provider Active Dr. Viviana [...] Cox MD Primary Care Provider Active BRENDA CrawfordC Attending Provider Active Team Status: Inactive Member Role Status Dates Dr. Michael Cox MD Primary Care Provider Active Viviana Mcgee MD Attending Provider Active Team Status: Active Member Role Status Dates Dr. Michael Cox MD Primary Care Provider Active Alex Weir MD Attending Provider Active Team Status: Inactive Member Role Status Dates Dr. Michael Cox MD Primary Care Provider Active Matilda Tickton OLS, REGISTERED VASCULAR TECHNOLOGIST (RVT)-C Attending Provider Active Team Status: Inactive Member [...] Zachary Cruz MD Attending Provider Active Matilda Dhoerty REGISTERED VASCULAR TECHNOLOGIST (RVT), REGISTERED VASCULAR TECHNOLOGIST (RVT)-C Referring Provider Active Team Status: Active Member Role Status Dates Dr. Michael Cox MD Primary Care Provider Active Matilda Doherty REGISTERED VASCULAR TECHNOLOGIST (RVT), REGISTERED VASCULAR TECHNOLOGIST (RVT)-C Attending Provider Active Team Status: Inactive Member Role Status Dates Dr. Michael Cox MD Primary Care Provider Active Matilda Doherty REGISTERED VASCULAR TECHNOLOGIST (RVT), REGISTERED VASCULAR TECHNOLOGIST (RVT)-C Attending Provider, Referring Provider Active Team Status: [...] MD Primary Care Provider Active Matilda Doherty REGISTERED VASCULAR TECHNOLOGIST (RVT), REGISTERED VASCULAR TECHNOLOGIST (RVT)-C Attending Provider Active Team Status: Inactive Member Role Status Dates Dr. Viviana Mcgee MD Primary Care Provider Active [facility] Attending Provider Active Team Status: Inactive Member [...] Mcgee MD Primary Care Provider Active LAURA Mendes Attending Provider Active Team Status: Active Member [...] 2024 End: April 03, 2024 Matilda Doherty NP REGISTERED VASCULAR TECHNOLOGIST (RVT)-C Attending Provider Active Start: April 03, 2024 [...] Active S tart: July 31, 2024 LAURA Iryb Referring Provider Active Star t: July 31, 2024 Team Status: Inactive Member Role/Relationship Status Dates Dr. Viviana Mcgee MD Primary Care Provider Active Start: July 31, 2024 End: July 31, 2024 Matilda Doherty REGISTERED VASCULAR TECHNOLOGIST (RVT), REGISTERED VASCULAR TECHNOLOGIST (RVT)-C Attending Provider Active Start: July 31, 2024 [...] section and content) DATE CREATED AUTHOR [facility]/2022 [facility] DATE CREATED AUTHOR AUTHOR'S ORGANIZ ATION 01/28/2022 [facility] [employer] DATE CREATED AUTHOR AUTHOR'S ORGANIZ ATION 04/18/2022 [facility] DATE CREATED AUTHOR AUTHOR'S ORGANIZ ATION 11/25/2024 [facility] Reason for Visit (unrecogniz ed section and content) Reason Comments Abdominal Pain Transfer from [facility] r. Pt c/o abdominal pain. Reason Comments Patient Update Patient Question Help with Shelter Reason Onset Date Comments Population Health Navigation [...] Meredith Cadet RN)0753 (Given - Provider: Chacorta Snow, ARYAN)1357 (Given - Provider: Chacorta Snow RN) 0000 (Not Given - Provider: Bekah Multani, ARYAN - Reason: Patient/family refused)0846 (Given - Provider: Sonya Goff RN)1558 (Given - Provider: Sonya Goff RN) 0130 (Not Given - Provider: Bekah Multani RN - Reason: Patient/family refused)0847 (Given - Provider: Leonarda Casillas, ARYAN)1548 (Given - Provider: Leonarda Casillas RN) bisacodyl [...] Goff RN) 1548 (Given - Provider: Leonarda Casillas, ARYAN) folic acid (FOLVITE) tablet 1 mg 1 mg, Oral, DAILY, First dose on 01/02/22 at 0900, Until Discontinued 0753 (Given - Provider: Chacorta Snow RN) 0846 (Given - Provider: Sonya Goff, ARYAN) 0847 (Given - Provider: Leonarda Casillas RN) furosemide (LASIX) injection 40 mg (COMPLETED) 40 mg, IntraVENous, ONCE, 1 dose, On Tue01/05/22 at 1045 1356 (Given - Provider: Chacorta Snow RN) furosemide (LASIX) tablet 20 mg 20 mg, Oral, DAILY, First dose on Tue01/06/22 at 1315, Until Discontinued 1558 (Given - Provider: Sonya Goff RN) 0847 (Given - Provider: Leonarda Casillas, RN) ipratropium-albuterol (DUONEB) nebulizer solution 1 ampule (CANCELED) [...] 0847 (Patch Applied - Provider: Sonya Goff RN)2257 (Patch Removed - Provider: Bekah Multani RN) 0847 (Patch Applied - Provider: Leonarda Casillas, RN)2046 (Due: Patch Removed - Provider: Leonarda Casillas, RN) nicotine (NICODERM CQ) 21 MG/24HR 1 [...] Goff RN) 0846 (Patch Applied - Provider: Leonarda Casillas RN) polyethylene glycol (GLYCOLAX) packet 17 g 17 g, Oral, DAILY, First dose on Tue12/30/21 at 1245, Until Discontinued 0900 (Automatically Held - Provider: Ezekiel Maciel MD) 09 (Automatically Held) 09 (Automatically Held) potassium chloride (KLOR-CON) packet 40 mEq 40 mEq, Oral, 2 TIMES DAILY, First dose on Tue12/31/21 at 0900, Until Discontinued, Dilute with at least 4 ounces of cold water. May further dilute if GI adverse effects occur. 0756 (Given - Provider: Chacorta Snow RN)2011 (Given - Provider: Bekah Multani RN) 08 (Given - Provider: Sonya Goff RN)2147 (Given - Provider: Bekah Multani RN) 08 (Given - Provider: Leonarda Casillas, ARYAN)2100 (Due) QUEtiapine (SEROQUEL) tablet 50 mg 50 [...] Discontinued 09 (Given - Provider: Lou Yan RCP)174 (Given - Provider: Lou Yan RCP) 0841 [...] Until Discontinued 0753 (Given - Provider: Chacorta Snwo RN) 0846 (Given - Provider: Sonya Goff [...] Blood sugar less than 70mg/dL, Starting on 12/30/21 at 0944, Start infusion following administration of [...] (See Alternative - Provider: Bekah Multani RN) 1558 (See Alternative - Provider: Sonya Goff RN)2148 (See Alternative - Provider: Bekah Multani RN) [...] BE BASED ON THE PRIMARY CLINICAL RECORDS. [facility] provides no warranty or guarantee of the accuracy or completeness of information in this document.
[2024-12-28 08:33] LABS: Vitamin D,25 Hydroxy 30.5 ng/mL (30-100)
== END ==
LOC: OLS.WHLTSB 05:00
PROVIDERS: PCP Internal Medicine; Visit Provider Internal Medicine
DX: E55.9 Vitamin D deficiency, unspecified (principal)
CPT/HCPCS: 36415; 82306

== ENCOUNTER → 2025-03-01 | Outpatient (REF) | payer MEDICARE, MEDICAID, SELFPAY ==
--- OUTSIDE RECORDS SUMMARY | 2025-03-01 04:05 | XMS RPT_ITS | CCD ---
Author Organization [facility] Informat ion Partnership [facility] Care Team Providers Care Assistant Guest Services Manager Name Role Phone Dr. Michael Cox Primary [...] Provider Dr. Viviana Mcgee Attending Provider [place] TEST DATA DEVELOPER, TEST DATA DEVELOPER-C Matilda Attending Provider Dr. Michael Bergeron Primary Care Provider Dr. Viviana Mcgee Attending Provider [phone] Dr. Zachary Cruz Attending Provider [phone] [place] TEST DATA DEVELOPER, TEST DATA DEVELOPER-C Matilda Referring Provider Dr. Michael Bergeron Referring Provider Dr. Michael Cox Primary Care Provider [place] TEST DATA DEVELOPER, TEST DATA DEVELOPER-C Matilda Attending Provider Unav Dr. Zachary Gómez Attending Provider [phone] [place] TEST DATA DEVELOPER, TEST DATA DEVELOPER-C Matilda Referring Provider Gemav Dr. Viviana Perez Attending Provider [phone] Dr. Michael Cox Referring Provider Dr. Viviana Mcgee Primary Care Provider [phone] Dr. Michael Cox Primary Care Provider [place] TEST DATA DEVELOPER, TEST DATA DEVELOPER-C Matilda Attending Provider Dr. Michael Bergeron Primary Care Provider Dr. Zcahary Cruz Attending Provider [phone] [place] TEST DATA DEVELOPER, TEST DATA DEVELOPER-C Matilda Attending Provider Dr. Viviana Mcgee Attending Provider [phone] Dr. Viviana Mcgee Referring Provider [phone] Dr. Viviana Mcgee Primary Care Provider [phone] [place] TEST DATA DEVELOPER, TEST DATA DEVELOPER-C Matilda Attending Provider Dr. Zachary Cruz Attending Provider [phone] Dr. Viviana Mcgee Primary Care Provider [phone] [place] TEST DATA DEVELOPER, TEST DATA DEVELOPER-C Matilda Attending Provider Dr. Viviana Mcgee Referring Provider [phone] Dr. Zachary Cruz Attending Provider [phone] Dr. Viviana Mcgee Attending Provider [phone] Dr. Viviana Mcgee Primary Care Provider [phone] Bessy TEST DATA DEVELOPER, TEST DATA DEVELOPER-C Matilda Attending Provider Newton TEST DATA DEVELOPER-C Lesvia Attending Provider [phone] LAURA Perdomo Attending Provider [phone] Eevrardo STANLEY, Dr. Michelle Primary Care Provider Viviana Mcgee MD Attending Provider Jacintaa colleen Doherty TEST DATA DEVELOPER-C, Matilda Attending Provider Everardo STANLEY, Dr. Michelle Attending Provider [phone] Viviana Mcgee MD Referring Provider Cr Delatorre Attending Provider Everardo STANLEY, Dr. Michelle Referring Provider [phone] Lacy Mcmanus Attending Provider Bessy TEST DATA DEVELOPER-CMatilda Attending Provider [phone] Everardo STANLEY, Dr. Michelle Primary Care Provider Viviana Mcgee MD Attending Provider Shahid Doherty TEST DATA DEVELOPER-C, Matilda Attending Provider Lacy Mcmanus Referring Provider [phone] Zachary Cruz MD Attending Provider [phone] Everardo STANLEY, Dr. Michelle Primary Care Provider Viviana Mcgee MD Attending Provider UnavailDr. Viviana Todd MD Primary Care Provider Dr. Viviana Mcgee MD Attending Provider [phone] Bessy TEST DATA DEVELOPER-C, Matilda Attending Provider Everardo STANLEY, Dr. Michelle Primary Care Provider Lacy Mcmanus Attending Provider [phone] Viviana Mcgee MD Attending Provider Unavailchayo Mgcee MD, Dr. Efewongbe Attending Provider Everardo STANLEY, Dr. Michelle Primary Care Physician Everardo STANLEY, Dr. Michelle Attending Physician [phone] Everardo STANLEY, Viviana Attending Physician Unavail able Bessy TEST DATA DEVELOPER-C, Matilda Attending Physician Oleghe, Efewongbe Primary Care Unavailable Jorden Trejo Attending Unavailable Oleghe, Efewongbe Primary Care Unavailable Oleghe, Efewongbe Attending Unavailable Oleghe, Efewongbe Primary Care Unavailable [place] TEST DATA DEVELOPER, Matilda Attending Unavailable Oleghe, Efewongbe Primary Care Unavailable Oleghe OLS, Efewongbe Attending Unavailabl e Oleghe, Efewongbe Primary Care Unavailable Oleghe OLS, Efewongbe Attending Unavailabl e Oleghe, Efewongbe Primary Care Unavailable Oleghe OLS, Efewongbe Attending Unavailabl e Oleghe, Efewongbe Primary Care Unavailable Oleghe OLS, Efewongbe Attending Unavailabl e [place] OLS, Matilda Attending Unavailable Oleghe, Efewongbe Primary Care Unavailable Oleghe, Efewongbe Primary Care Unavailable Oleghe OLS, Efewongbe Attending Unavailabl e Oleghe OLS, Efewongbe Referring Unavailabl e Oleghe, Efewongbe Primary Care Unavailable [place] TEST DATA DEVELOPER, Matilda Attending Unavailable Zachary Cruz Attending Unavailable Oleghe, Efewongbe Primary Care Unavailable BarbourJuan Francisco rosalesison Referring Unavailable Oleghe, Efewongbe Primary Care Unavailable Oleghe, Efewongbe Attending Unavailable [place] TEST DATA DEVELOPER, Matilda Attending Unavailable Oleghe, Efewongbe Primary Care Unavailable Oleghe, Efewongbe Attending Unavailable Oleghe, Efewongbe Primary Care Unavailable Oleghe, Efewongbe Attending Unavailable Oleghe, Efewongbe Primary Care Unavailable [place] TEST DATA DEVELOPER, Matilda Attending Unavailable Oleghe, Efewongbe Primary Care Unavailable [place] TEST DATA DEVELOPER, Matilda Attending Unavailable Oleghe, Efewongbe Primary Care Unavailable Oleghe, Efewongbe Referring Unavailable Oleghe, Efewongbe Primary Care Unavailable Barbour Lacy Attending Unavailable Oleghe, Efewongbe Primary Care Unavailable Barbour, Lacy Referring Unavailable Barbour, Lacy Attending Unavailable Oleghe, Efewongbe Primary Care Unavailable Oleghe OLS, Efewongbe Attending Unavailabl e Oleghe OLS, Efewongbe Attending Unavailabl e Oleghe, Efewongbe Primary Care Unavailable Oleghe OLS, Efewongbe Attending Unavailabl e Oleghe, Efewongbe Primary Care Unavailable Oleghe OLS, Efewongbe Attending Unavailabl e Oleghe, Efewongbe Primary Care Unavailable Oleghe, Efewongbe Primary Care Unavailable Cr Perdomo Attending Unavailable Terri Salas Attending Unavailable Oleghe, Efewongbe Primary Care Unavailable Oleghe, Efewongbe Referring Unavailable Everardo STANLEY, Dr. Michelle Primary Care Physician Dr. Viviana Mcgee MD Referring Provider [phone] Josue TEST DATA DEVELOPER-C, Terri Attending Physician [phone] Neil STANLEY, Dr. Leonardo Attending Physician Allergies Allergy Classification Reported Allergen(s) Allergy Type Date of Onset Reaction(s) Facility (20 sources) Adhesive Tape; Translations: [adhesive tape] Propensity to adverse reactions 2 Rash [facility] (20 sources) Azithromycin; Translations: [AZITHROMYCIN] Drug Allergy 8 PT UNSURE OF REACTION [facility] Work Phone: (5 sources) Bisoprolol / hydroCHLOROthiaz guerita; Translations: [BISOPROLOL-HYDR OCHLOROTHIAZIDE] Drug Allergy 8 [facility] Work Phone: (5 sources) Latex; Translations: [LATEX] Propensity to adverse reactions 9 [facility] Work Phone: (18 sources) Bisoprolol Drug Allergy 3 PT UNSURE OF REACTION [facility] (1 source) Azithromycin Drug Allergy 5 [facility] Repository (1 source) Bisoprolol Drug Allergy 5 [facility] Repository Medications Current Medications Medication Drug Class(es) Dates Sig (Normalized) Sig (Original) acetaminophen 500 mg oral tablet (3 sources) Start: 02-06-2025 take 1 tablet by mouth every six hours as needed Start: 12-27-2021 take 1 dose by mouth three times daily 1,000 mg, Oral, EVERY 8 HOURS SCHEDULED (3 times per day), First dose on Tue12/27/21 at 2200, Until Discontinued Maximum dose of acetaminophen is 4000 mg from all sources in 24 hours. albuterol 0.833 mg/ml / ipratropium bromide 0.167 mg/ml inhalation solution (4 sources) Anticholinergic, beta2-Adrenergic Agonist Start: 01-07-2022 Start: 01-02-2022 End: 01-06-2022 1 ampule, Inhalation, 2 TIME S DAILY PRN, Starting on Tue01/06/22 at 0945, Until Discontinued, Shortness of Breath Initiate RT Bronchodilator Protocol: No Start: 12-28-2021 End: 01-02-2022 1 ampule, Inhalation, EVERY 4 HOURS WHILE AWAKE, First dose on Tue12/28/21 at 0800, Until Discontinued Initiate RT Bronchodilator Protocol: No amoxicillin 875 mg / clavula makenna 125 mg oral tablet (1 source) Penicillin-class Antibacterial Start: 01-08-2022 End: 01-07-2022 Start: 01-08-2022 End: 01-07-2022 aspirin 81 mg delayed release oral tablet (14 sources) Platelet Aggregation Inhibitor, Nonsteroidal Anti-inflammatory Drug Start: 04-29-2023 take 1 tablet by mouth once daily atorvastatin 80 mg oral tablet (14 sources) HMG-CoA Reductase Inhibitor Start: 04-29-2023 take 1 tablet by mouth at bedtime cholecalciferol 0.05 mg oral capsule (9 sources) Vitamin D Start: 06-27-2024 take 1 capsule by mouth once daily cholecalciferol 9.52 unt/ml / glucose 357 mg/ml [...] NOT NPO, give 1 tube glucose gel. Repe at blood glucose in 15 minutes. If blood glucose is less than 70 mg/dL, repeat treatment and recheck blood glucose in 15 minutes x2 and notify provider. docusate sodium 100 mg oral capsule (18 sources) Start: 01-26-2023 take 1 capsule by mouth at bedtime folic acid 1 mg oral tablet (3 sources) Start: 01-08-2022 Start: 01-02-2022 take 1 mg by mouth once daily 1 mg, Oral, DAILY, First dose on Tue01/02/22 at 0900, Until Discontinued Start: 12-27-2021 End: 12-29-2021 take 1 mg by mouth once daily 1 mg, Oral, DAILY, First dose on Tue12/27/21 at 1815, Until Discontinued furosemide 20 mg oral tablet (20 sources) Loop Diuretic Start: 01-26-2023 take 1 tablet by teo th once daily in the morning Start: 01-08-2022 Start: 01-06-2022 take 20 mg [...] 12 hours in any 24 hour period. losartan potassium 25 mg oral tablet (2 sources) Angiotensin 2 Receptor Leanna Start: 02-06-2025 take 1 tablet by mouth once daily melatonin 5 mg oral capsule (18 sources) Start: 01-26-2023 take 1 mg by mouth at bedtime Start: 01-26-2023 take 1 mg by mouth at bedtime Melatonin Active MG PO AT BEDTIME January 26, 2023 12:00am meloxicam 7.5 mg oral tablet (14 sources) Nonsteroidal Anti-inflammatory Drug Start: 04-27-2023 take 1 tablet by mouth once daily 24 hr nicotine 0.875 mg/hr transdermal system [...] sources) Opioid Agonist Start: 01-07-2022 End: 01-12-2022 pantoprazole 20 mg delayed release oral tablet (2 sources) Proton Pump Inhibitor Start: 02-06-2025 take 1 tablet by mouth once daily QUEtiapine 50 mg oral tablet (2 sources) Atypical Antipsychotic Start: 01-01-2022 SITagliptin 100 mg oral tablet (9 sources) Dipeptidyl Peptidase 4 Inhibitor Start: 06-27-2024 take 1 tablet by mouth once daily spironolactone 25 mg oral tablet (20 sources) Aldosterone Antagonist Start: 01-26-2023 take 1 tablet by mouth twice daily Start: 01-08-2022 End: 01-07-2022 Start: 01-02-2022 thiamine 100 mg oral tablet (5 sources) Start: 01-08-2022 Start: 01-02-2022 take 100 mg by mouth once daily 100 mg, Oral, DAILY, First dose on 01/02/22 at 0900, Until Discontinued Start: 12-28-2021 End: 12-28-2021 Doses greater than 100 mg sh ould be administered over 1-2 minutes 200 mg, IntraVENous, ONCE, 1 dose, On 12/28/21 at 1530 Start: 12-28-2021 End: 12-29-2021 Doses greater than 100 mg sh ould be administered over 1-2 minutes 100 mg, IntraVENous, DAILY, First dose on 12/28/21 at 0900, Until Discontinued Start: 12-27-2021 End: 12-28-2021 take 100 mg by mouth once daily 100 mg, Oral, DAILY, First dose on 12/27/21 at 1815, Until Discontinued traMADol hydrochloride 50 mg oral tablet (14 sources) Opioid Agonist Start: 02-15-2025 take 1 tablet by mouth every twelve hours as needed for pain, then take 1 tablet by mouth every six hours as needed for pain Start: 02-15-2025 take 1 tablet by teo th every twelve hours as needed for pain, then take 1 tablet by mouth every six hours as needed for pain Start: 01-14-2025 End: 02-13-2025 take 1 tablet by mouth every twelve hours as needed for pain, then take 1 tablet by mouth every six hours as needed for pain Tramadol 50 mg tablet Discontinued 50 mg PO As Directed 120 30 0 January 14, 2025 11:41am February 12, 2025 12:00am February 13, 2025 12:09am pain 1 tab p.o. every 12 hours routine and 1 tab p.o. every 6 hours prn pain. Start: 01-01-2025 End: 01-11-2025 take 1 tablet by mouth every twelve hours as needed for pain, then take 1 tablet by mouth every six hours as needed for pain Tramadol 50 mg tablet Discontinued 50 mg PO As Directed 40 10 0 January 01, 2025 12:00am January 10, 2025 12:00am January 11, 2025 12:10am pain 1 tab p.o. every 12 hours routine and 1 tab p.o. every 6 hours prn pain. traZODone hydrochloride 50 mg oral tablet (2 sources) Serotonin Reuptake Inhibitor Start: 02-06-2025 vitamin b12 1 mg oral tablet (9 sources) Vitamin B12 Start: 06-27-2024 take 1 tablet by mouth once daily Completed/Discontinued Medications Medication Drug Class(es) Dates Sig (Normalized) Sig (Original) [id number] actuat albuterol 0.09 mg/actuat metered dose [...] Comment on above: Take 1 tablet by [facility] once daily. bisacodyl 10 mg rectal suppository [...] CO NTINUOUS, Starting on Tue12/27/21 at 1430 docusate sodium 50 mg / sennosides, care home 8.6 mg oral tablet (1 source) Start: [...] at 1900, Until Discontinued Indication of Use: Prophylaxis-DVT/ PE glucagon (rdna) 1 mg injection (1 source) [...] take 1 tablet by mouth once daily Comment on above: Take 1 tablet by [facility] once daily. Take on empty stomach. For thyroid. 50 ml magnesium sulfate 40 mg/ml injection (1 source) Start: 2 End: 2 2,000 mg, IntraVENous, at 25 mL/hr, Administer over 2 Hours, ONCE, On Carly 12/31/21 at 1200, For 1 dose Recommended infusion rate not to exceed 1,000 mg (milligrams) per hour. mirtazapine 15 mg oral tablet (20 sources) Start: 3 End: 5 take 1 [...] omeprazole 20 mg delayed release oral capsule (7 sources) Proton Pump Inhibitor Start: 06-27-2024 take [...] 16.2 mg, Oral, NIGHTLY, First dose on 01/02/22 at 2100, Until Discontinued Start: 12-31-2021 End: 01-01-2022 16.25 mg, IntraVENous, 2 PAO ES DAILY, First dose (after last modification) on Carly 12/31/21 at 2100, Until Discontinued Start: 12-28-2021 End: [...] 24 and 32 mcg/mL polyethylene glycol 3350 50519 mg powder for oral solution (1 source) [...] 100 mL/hr predniSONE 20 mg oral tablet (18 sources) Start: 01-30-2023 End: 04-27-2023 take 2 tablets by mouth once daily Prednisone 20 mg tablet Discontinued 40 mg PO DAILY January 30, 2023 12:00am April 27, 2023 4:38pm Start: 01-30-2023 End: 04-27-2023 take 40 mg by mouth once daily Prednisone Discontinued 40 MG PO DAILY January 30, 2023 12:00am April 27, 2023 4:38pm sodium chloride 30 mg/ml inhalation solution (8 [...] needed 5-40 mL, IntraVENous, PRN, Starting on 12/27/21 at 1757, Until Discontinued, Line Care, After [...] once daily. Inhale two puffs once daily. (5 sources) Start: 12-29-2021 End: 01-01-2022 500 [...] [Unspecified severe protein-calorie malnutrition] Onset: 01-01-2022 Chronic Osteoarthritis (8 sources) Osteoarthritis of knee; Translations: [Unilateral primary osteoarthritis, unspecified knee] 02-06-2025 Chronic Other aftercare (2 sources) Patient encounter status; Translations: [Encounter for palliative care] Onset: 12-29-2021 Resolved: 01-07-2022 Episodic Other circulatory disease (19 sources) Abnormal peripheral pulse; Translations: [Other specified symptoms and signs involving the circulatory and respiratory systems] 12-23-2022 Episodic Other connective tissue disease (18 sources) Thigh pain; Translations: [Pain in right [...] Onset: 06-11-2024 Chronic Other nervous system disorders (3 sources) Skin sensation disturbance; Translations: [Unspecified disturbances of skin sensation] 01-11-2008 Episodic Other nervous system disorders (2 sources) Impaired cognition; Translations: [Other symptoms and signs involving cognitive functions and awareness] Onset: 01-01-2022 Episodic Other non-traumatic joint disorders (20 sources) Pain in right knee; Translations: [Right knee pain] 06-27-2018 Episodic Other non-traumatic joint disorders (3 sources) Pain in left knee; Translations: [Left knee pain] Onset: 02-06-2025 02-06-2025 Episodic Other non-traumatic joint disorders (1 source) Pain in left hip; Translations: [Pain in left hip] Onset: 02-06-2025 Episodic Other non-traumatic joint disorders (2 sources) Hip pain; Translations: [Pain in left hip] 02-06-2025 Episodic Other screening for suspected conditions (not [...] Test Name Value Interpretation Reference Range Facility HIP, UNI W/ Pelvis 2-3 Views on 02-06-2025 HIP, UNI W/ Pelvis 2-3 Views [facility] Imaging Services [address] [place] [address] HIP, UNI W/ Pelvis 2-3 Views MR#: [id number] Acct: [id number] Name: JAIMIE AVENDANO Rep #: [id number] : 1945 F 79 From: Harman Lawrence MD PCP: Dr. Viviana Mcgee MD Status: DEP AMB Study: HIP, UNI W/ Pelvis 2-3 Views Date of Exam: Exam# [id number] Ordering Dr: Terri Salas TEST DATA DEVELOPER-C PROCEDURE: HIP, UNI W/ PELVIS 2-3 VIEWS 02/06/2025 REASON FOR EXAM: L HIP PAIN, LIMITED ROM TECHNIQUE: Procedure Code: RADHP Modality: DX Procedure: HIP, UNI W/ PELVIS 2-3 VIEWS Laterality: Left COMPARISON: None FINDINGS: The bony pelvis is intact. The SI joints are normal. There is mild degenerative disc disease, L3-4 through L5-S1. There are no soft tissue abnormalities. AP view of the right hip demonstrates a screw plate and compression screw through healed intertrochanteric fracture. There is no evidence of acute fracture or dislocation. There is moderate arthritis of the right hip. The periarticular soft tissues are normal. AP and lateral views of the left hip demonstrate no evidence of fracture or dislocation. There is moderate arthritis of the left hip. The periarticular soft tissues are normal. RAD/HIP, UNI W/ Pelvis 2-3 Views IMPRESSION: Moderate arthritis of the left hip. Other findings as noted. Reading Location: [place] [address] CC: TEST DATA DEVELOPERAkira Salas; Dr. Viviana Mcgee MD Manufacturing Quality Inspector: Signed Normal [facility] Knee 4 or More Viewson 02-06 Knee 4 or More Views [facility] Imaging Services [address] [place] [id number] Knee 4 or More Views MR#: [id number] Acct: [id number] Name: JAIMIE AVENDANO Rep #: [id number] : 1945 F 79 From: Harman Lawrence MD PCP: Dr. Viviana Mcgee MD Status: DEP AMB Study: Knee 4 or More Views Date of Exam: 02/06/25 Exam# [id number] Ordering Dr: Terri Salas PROCEDURE: KNEE 4 OR MORE VIEWS 02/06/2025 REASON FOR EXAM: CHRONIC PAIN, NKI TECHNIQUE: Procedure Code: RADKN Modality: DX Procedure: KNEE 4 OR MORE VIEWS Laterality: Left COMPARISON: None FINDINGS: There is no evidence of fracture or dislocation. There is mild arthritis of the patellofemoral joint. There is no arthritis of the medial joint space compartment of the knee. There is no arthritis of the lateral joint space compartment of the knee. There is enthesopathy of the patella. There is no knee joint effusion. The periarticular soft tissues are unremarkable. RAD/Knee 4 or More Views IMPRESSION: Mild arthritis of the patellofemoral joint. Reading Location: [place] [address] CC: RAYNE Saals; Dr. Viviana Mcgee MD Manufacturing Quality Inspector: Signed Normal [facility] Orthopedic Visit Reporton Orthopedic Visit Report [facility] Orthopedics [facility] [facility] [address] [place] [address] OFFICE VISIT Date of Service: 02/06/25 MR#: [id number] Acct: [id number] Name: JAIMIE AVENDANO Rep #: [id number] : 1945 Provider: RAYNE ta Age/Sex: 79/F Location: [facility].SANYA Status: Signed Intake Vital Signs 01/22/25 12:36 02/06/25 09:29 Height 5 ft 3 in 5 ft 3 in Weight: 141 lb BMI 25.0 Intake Visit Reasons: LEFT KNEE Chief Complaint: left knee Accompanied by: Caregiver Is patient in pain?: Yes (Left knee) Pain scale (1-10): 5 Allergies azithromycin Allergy (Intermediate, Verified 02/06/25 09:32) PT UNSURE OF REACTION bisoprolol Allergy (Intermediate, Verified 02/06/25 09:32) PT UNSURE OF REACTION adhesive tape Adverse Reaction (Verified 02/06/25 09:32) Rash Medications ???Medication ???Instructions ???Recorded ???Confirmed ???Type levothyroxine 50 mcg tablet 50 mcg PO DAILY 07/11/21 02/06/25 History docusate sodium 100 mg capsule 100 mg PO QHS 01/26/23 02/06/25 Hi story (Colace) furosemide 20 mg tablet (Lasix) 20 mg PO QAM 01/26/23 02/06/25 His tory melatonin 5 mg capsule mg PO QHS 01/26/23 02/06/25 Histor y spironolactone 25 mg tablet 25 mg PO BID 01/26/23 02/06/25 His tory meloxicam 7.5 mg tablet 7.5 mg PO DAILY 04/27/23 02/06/25 History aspirin 81 mg tablet,delayed 81 mg PO DAILY #30 tabs 04/29/23 1 Rx release (Adult Aspirin Regimen) atorvastatin 80 mg tablet 80 mg PO QHS #30 tabs 04/29/23 Rx cholecalciferol (vitamin D3) 50 50 mcg PO QDAY 06/27/24 02/06/25 H istory mcg (2,000 unit) capsule cyanocobalamin (vitamin B-12) 1,000 mcg PO QDAY 06/27/24 5 History 1,000 mcg tablet sitagliptin phosphate 100 mg 100 mg PO QDAY 06/27/24 02/06/25 H istory tablet (Januvia) tramadol 50 mg tablet 50 mg PO DIRECTED pain 30 days 01/14/25 02/06/25 Rx #120 tabs acetaminophen 500 mg tablet 500 mg PO Q6H PRN 02/06/25 5 History losartan 25 mg tablet 25 mg PO QDAY 02/06/25 02/06/25 Hi story pantoprazole 20 mg tablet,delayed 20 mg PO QDAY 02/06/25 02/06/25 H istory release trazodone 50 mg tablet mg PO 02/06/25 02/06/25 History Have you fallen in the past year?: No PFSH Medical History PAD (peripheral artery disease) Neuropathy Dementia Alcohol abuse Anxiety Depression Cirrhosis Smoker Essential hypertension Chronic pain syndrome Surgical History History of repair of right hip joint History of hysterectomy History of appendectomy History of cholecystectomy Family History Other CVA (cerebral vascular accident) Cancer Diabetes Hypertension Social History Smoking Status: Former smoker Tobacco: How many years used: 40 alcohol intake: former substance use type: does not use HPI LEFT KNEE Details: This documentation accurately reflects the service provided and the decisions made by me, RAYNE Reeves 02/06/2528. Part of today???s visit was documented by Padmini Jacobs RN, acting as scribe. JAIMIE AVENDANO is a 79 year old F here today for left knee pain. She presents ambulating with a walker. She complains of ongoing pain for the last year that has progressively been getting worse. Her knee does feel like it is going to give out on her at times during ambulation. She complains of pain on the lateral knee that extends up her anterior thigh into her groin. She denies previous surgery or trauma to the knee. Denies any known injury or aggravators. Patient has been using Biofreeze 3 times a daily which helps short-term, completed PT at [facility] which helped some. No bracing or wraps attempted. Patient takes Tylenol 4 times a day and prescription meloxicam with minimal effect over time. Patient states she has pain to the upper leg with activity and in the morning, sharp pain to the inner groin with limited range of motion over the last year, no identified injury. Unable to differentiate if the left groin or left knee pain is worse, states weakness of the quad region. Has noticed significant limited range of motion of her hip over time. History of right hip fracture with repair approximately 2 years ago. Facility paperwork accompanies patient for today's visit. ROS Const All systems reviewed are unremarkable except as noted in H and other (A O x 3, no apparent distress. No recent illness.) ENT Denies dizziness Card Denies chest pain, Denies dyspnea and Denies edema Resp Denies cough, Denies dyspnea and Reports other (No recent URI) GI Reports system reviewed and no additional complaints, except (more content not included)... Normal [facility] TSH DL <= 0.005 mIU/L QnOrde red By: Viviana Mcgee on 11-23-2024 TSH Qn 2.370 uIU/mL 0.300-4.200 [facility] Vitamin B12 ser/plasOrdered By: Viviana Mcgee on 11-23-2024 Cobalamin (Vitamin B12) [Mass/Vol] 795 pg/mL 180-914 [facility] TSH DL <= 0.005 mIU/L QnOrde red By: Viviana Mcgee on 08-24-2024 TSH Qn 1.860 uIU/mL 0.300-4.200 [facility] Vitamin B12 ser/plasOrdered By: Reynaldosanta fepapa Mcgee on 08-24-2024 Cobalamin (Vitamin B12) [Mass/Vol] 885 pg/mL 180-914 [facility] [facility] Arterial study reportOrdered By: Zachary Cruz on 07-31-2024 Noninvasive arteriosclerosis study report [facility] [place] [address] Lower Ext Art Exam w/o Exercis 07/31/24 1102 MR#: [id number] Acct: [id number] Name: JAIMIE AVENDANO Rep #:[id number] : 1945 79 From: Zachary Adams Attending Dr: LAURA Irby Stat us: REG CLI Ordering Dr: Lacy Barbour Date: Location: [facility] Sex: F C Admitted: Reason For [...] Dictated: 07/31/24 1102 Date Transcribed: 07/31/24 1800 Manufacturing Quality Inspector: Signed [facility] Work Phone: Lower Ext Art Exam w/o Exerc do 07-31-2024 Lower Ext Art Exam w/o Exercis [facility] [address] [place] [address] Lower Ext Art Exam w/o Exercis 07/31/24 110 MR#: [id number] Acct: [id number] Name: JAIMIE AVENDANO Rep #: [id number] : 1945 79 From: Zachary Cruz MD Attending Dr: LAURA Irby Status: REG CLI Ordering Dr: Lacy Barbour Date: 07/31/24 Location: [facility] Sex: F C Admitted: Reason For [...] Physician: Viviana Mcgee Performed By: GARRETT NANCE [facility] 07/31/24 1800 Date Zachary Cruz MD CC: LAURA Irby; Dr. Viviana Mcgee MD Date Dictated: 07/31/24 1102 Date Transcribed: 07/31/24 1800 Manufacturing Quality Inspector: Signed Normal [facility] Calculated very low density lipoprotein (VLDL) cholesterol measurementOrdered By: Matilda Doherty on 06-29-2024 Calculated very low density lipoprotein (VLDL) cholesterol measurement 31 mg/dL [facility] VLDL Cholesterol 31 mg/dL [facility] LDL calc ser/plasOrdered By: Matilda Doherty on 06-29-2024 Cholesterol in LDL [Mass/Vol] 34 mg/dL [facility] Comment on above: Dmdkoxhaxr=888-817 m g/dL & Higher Bbfo=086 mg/dL or greater LDL Cholesterol, Calculated 34 mg/dL [facility] Comment on above: Gppkxaakvv=040-670 m g/dL & Higher Isxr=212 mg/dL or greater Screening total cholesterol/ high density lipoprotein (HDL) cholesterol ratioOrdered By: Matilda Doherty on 06-29-2024 Cholesterol.total/Vicenta sterol in HDL [Mass ratio] 2.68 {ratio} [facility] Serum or plasma cholesterol in HDL measurement (mass/volume)Ordered By: Matilda Doherty on 06-29-2024 Cholesterol in HDL [Mass/Vol] 39 mg/dL Low >40 [facility] Comment on above: National Cholesterol Education Program (NCEP) guidelines:<40 mg/dL: Low HDL-cholesterol (major risk factor for CHD)>= 60 mg/dL: High HDL-cholesterol (negative risk factor for CHD)HDL-cholesterol is affected by a number of factors, e.g. smoking, exercise, hormones, sex and age. Serum or plasma cholesterol measurement (mass/volume)Ordered By: Matilda Doherty on 06-29-2024 Cholesterol [Mass/Vol] 105 mg/dL <201 [facility] Comment on above: Cholesterol level, D esirable <200 mg/dLBorderline high cholesterol 200-239 mg/dLHigh cholesterol >=240 mg/dLRecommendations of the NCEP Adult Treatment Panel for the following risk-cutoff thresholds for the [place] population. Triglycerides measurementOrd ered By: Matilda Doherty on 06-29-2024 Triglyceride [Mass/Vol] 157 mg/dL <199 [facility] Comment on above: The drugs N-Acetylcy steine and Metamizole may falsely depress this assay. Normal range: <150 mg/dLBorderline High: 150-199 mg/dLHigh: 200-499 mg/dLVery High: >500 mg/dL Justen 06-27-2024 [facility] [address] [place] [address] OFFICE VISIT Date of Service: 06/27/24 MR#: [id number] Acct: [id number] Name: JAIMIE AVENDANO Rep #: [id number] : 1945 Provider: LAURA Irby Age/Sex: 78/F Location: [email or web address] Status: Signed Intake Vital Signs 02/24/23 11:52 [...] disorders, N (more content not included)... Normal [facility] Hemoglobin A1c percentageOrd ered By: Viviana Mcgee on 06-07-2024 HbA1c (Bld) [Mass fraction] 6.4 % High 3.8-5.6 [facility] Comment on above: Normal < 5.7 % Predi abetic 5.7 - 6.4 % Diabetic >or= 6.5 % Please note range changes. Vitamin B12 measurementOrder ed By: Viviana Mcgee on 06-01-2024 Cobalamin (Vitamin B12) [Mass/Vol] 475 pg/mL 211-911 [facility] 16-UZ-Ourwlmc DOrdered By: Ji Mcgee on 04-27-2024 Vitamin D 25-Hydroxy 22.5 ng/mL [facility] Comment on above: Vitamin D 25(OH) Sta tus Range Deficiency <20 ng/mL (50nmol/L) Insufficiency 20 - 30 ng/mL (50 - 75 nmol/L) Sufficiency 30 - 100 ng/mL (75 - 250 nmol/L) Toxicity >100 ng/mL (>250 nmol/L) Absolute neutrophil countOrd ered By: Viviana Mcgee on 04-27-2024 Neutrophils (Bld) [#/Vol] 2.3 10*3/uL 2.0-7.7 [facility] Albumin to globulin ratioOrd ered By: Viviana Mcgee on 04-27-2024 Albumin/Globulin [Mass ratio] 1.0 {ratio} 0.9-2.4 [facility] Basophil percentageOrdered B y: Viviana Mcgee on 04-27-2024 Basophils/100 WBC (Bld) 0.9 % 0-1 [facility] Bilirubin, totalOrdered By: Viviana Mcgee on 04-27-2024 Bilirubin [Mass/Vol] 0.40 mg/dL 0.20-1.00 [facility] Comment on above: For patients on eltr ombopag therapy, use of Dimension [place] TBIL is not recommended. Blood urea nitrogen (BUN)/cr eatinine ratioOrdered By: Viviana Mcgee on 04-27-2024 Urea nitrogen/Creatinine [Mass ratio] 14.4 mg/mg 10-20 [facility] Carbon dioxide measurementOr dered By: Viviana Mcgee on 04-27-2024 CO2 [Moles/Vol] 27.0 mmol/L 21.0-32.0 [facility] Chloride measurementOrdered By: Viviana Mcgee on 04-27-2024 Chloride [Moles/Vol] 110 mmol/L High 98-107 [facility] Eosinophil percentageOrdered By: Viviana Mcgee on 04-27-2024 Eosinophils/100 WBC (Bld) 2.9 % 0-5 [facility] Erythrocyte distribution wid th (RBC) [Ratio]Ordered By: Viviana Mgcee on 04-27-2024 Erythrocyte distribution width (RBC) [Entitic vol] 45.0 fL High 35.1-43.9 [facility] Erythrocyte distribution wid th ratioOrdered By: Viviana Mcgee on 04-27-2024 Erythrocyte distribution width (RBC) [Ratio] 12.5 % 11.6-14.6 [facility] Estimated glomerular filtrat ion rate (GFR) AmericanOrdered By: Viviana Mcgee on 04-27-2024 Estimated GFR (MDRD) Amer 85 mL/min >60 [facility] Comment on above: GFR Calc Glomerular filtration rate ( GFR) estimationOrdered By: Viviana Mcgee on 04-27-2024 Estimated GFR (MDRD) Non-Af Amer 71 mL/min >60 [facility] Comment on above: Non- GFR Calc Glucose measurementOrdered B y: Viviana Mcgee on 04-27-2024 Glucose [Mass/Vol] 107 mg/dL High 74-106 [facility] Comment on above: Fasting Glucose resu lt from 100 to 125 mg/dL suggests IMPAIRED HOMEOSTASIS per A.D.A. criteria. Hematocrit Auto (Bld) [Volum e fraction]Ordered By: Viviana Mcgee on 04-27-2024 Hematocrit (Bld) [Volume fraction] 37.6 % 37-47 [facility] Hemoglobin measurementOrdere d By: Viviana Mcgee on 04-27-2024 Hemoglobin (Bld) [Mass/Vol] 12.1 g/dL 12.0-15.0 [facility] Immature granulocytes/100 WB C Auto (Bld)Ordered By: Viviana Mcgee on 04-27-2024 Immature granulocytes/100 WBC (Bld) 0.200 % 0.0-0.9 [facility] Comment on above: IG% - Immature Granu locytes (promyelocytes, myelocytes and metamyelocytes) > 1% indicates that a LEFT SHIFT is Present. Laboratory - Chemistry and C hemistry - challengeOrdered By: Viviana Mcgee on 04-27-2024 AST [Catalytic activity/Vol] 18 U/L 15-37 [facility] Lymphocytes Auto (Unsp spec) [#/Vol]Ordered By: Viviana Mcgee on 04-27-2024 Lymphocytes (Bld) [#/Vol] 1.58 10*3/uL 0.83-4.51 [facility] Lymphocytes/100 WBC Auto (Un sp spec)Ordered By: Viviana Mcgee on 04-27-2024 Lymphocytes/100 WBC (Bld) 35.0 % 19-41 [facility] MCV (mean corpuscular volume ) determinationOrdered By: Viviana Mcgee on 04-27-2024 MCV (RBC) [Entitic vol] 98.2 fL 81-99 [facility] Mean corpuscular hemoglobin (MCH) determinationOrdered By: Viviana Mcgee on 04-27-2024 MCH (RBC) [Entitic mass] 31.6 pg 27.0-32.0 [facility] Mean corpuscular hemoglobin concentration (MCHC) determinationOrdered By: Viviana Mcgee on 04-27-2024 MCHC (RBC) [Mass/Vol] 32.2 g/dL 32-36 [facility] Mean platelet volume determi nationOrdered By: Viviana Mcgee on 04-27-2024 Platelet mean volume (Bld) [Entitic vol] 9.8 fL 6.2-12.0 [facility] Monocyte percentageOrdered B y: Viviana Mcgee on 04-27-2024 Monocytes/100 WBC (Bld) 10.2 % High 0-10 [facility] Neutrophil percentageOrdered By: Viviana Mcgee on 04-27-2024 Neutrophils/100 WBC (Bld) 50.8 % 47-70 [facility] Nucleated red blood cell per centageOrdered By: Viviana Mcgee on 04-27-2024 Nucleated RBC/100 WBC (Bld) [Ratio] 0 % 0-5 [facility] Platelet countOrdered By: Link Mcgee on 04-27-2024 Platelets (Bld) [#/Vol] 240 10*3/uL 150-450 [facility] Potassium measurementOrdered By: Viviana Mcgee on 04-27-2024 Potassium [Moles/Vol] 3.7 mmol/L 3.5-5.1 [facility] RBC Auto (Bld) [#/Vol]Ordere d By: Viviana Mcgee on 04-27-2024 RBC (Bld) [#/Vol] 3.83 10*6/uL Low 4.2-5.4 [facility] Serum anion gap measurementO rdered By: Viviana Mcgee on 04-27-2024 Anion gap [Moles/Vol] 4 mmol/L Low 5-15 [facility] Serum globulin measurementOr dered By: Viviana Mcgee on 04-27-2024 Globulin (S) [Mass/Vol] 3.2 g/dL 2.2-4.2 [facility] Serum or plasma alanine jay otransferase (ALT) measurementOrdered By: Viviana Mcgee on 04-27-2024 ALT [Catalytic activity/Vol] 18 U/L 13-56 [facility] Serum or plasma albumin fiona urement (mass/volume)Ordered By: Viviana Mcgee on 04-27-2024 Albumin [Mass/Vol] 3.2 g/dL 3.2-5.0 [facility] Serum or plasma alkaline dmitry sphatase measurementOrdered By: Viviana Walterluizji on 04-27-2024 ALP [Catalytic activity/Vol] 108 U/L 45-117 [facility] Serum or plasma calcium fiona urement (mass/volume)Ordered By: Linklawsonclint Walterluizji on 04-27-2024 Calcium [Mass/Vol] 8.4 mg/dL Low 8.5-10.1 [facility] Serum or plasma creatinine m easurement (mass/volume)Ordered By: Viviana Walterluizji on 04-27-2024 Creatinine [Mass/Vol] 0.83 mg/dL 0.55-1.02 [facility] Comment on above: The validity of the calculated GFR & GFRAA in patients over 70 years has not been determined. Clinical correlation is essential. Serum or plasma urea nitroge n measurement (mass/volume)Ordered By: Linklawsonjose apapa Watsonluizji on 04-27-2024 Urea nitrogen [Mass/Vol] 12 mg/dL 7-18 [facility] Sodium levelOrdered By: Reynaldo jaramillo Walterluizji on 04-27-2024 Sodium [Moles/Vol] 141 mmol/L 136-145 [facility] Total proteinOrdered By: Reza boothe Walterluizji on 04-27-2024 Protein [Mass/Vol] 6.4 g/dL 6.4-8.2 [facility] White blood cell (WBC) count Ordered By: Linklawsonjose apapa Watsonluizji on 04-27-2024 WBC (Bld) [#/Vol] 4.5 10*3/uL 4.4-11.0 [facility] Absolute neutrophil countOrd ered By: Linklawsonjose apapa Watsonluizji on 03-30-2024 Neutrophils (Bld) [#/Vol] 3.0 10*3/uL 2.0-7.7 [facility] Albumin to globulin ratioOrd ered By: Linklawsonclint Walterluizji on 03-30-2024 Albumin/Globulin [Mass ratio] 1.1 {ratio} 0.9-2.4 [facility] Basophil percentageOrdered B y: [place] Watsonluizji on 03-30-2024 Basophils/100 WBC (Bld) 0.9 % 0-1 [facility] Bilirubin, totalOrdered By: Viviana Mcgee on 03-30-2024 Bilirubin [Mass/Vol] 0.40 mg/dL 0.20-1.00 [facility] Comment on above: For patients on eltr ombopag therapy, use of Dimension [place] TBIL is not recommended. Blood urea nitrogen (BUN)/cr eatinine ratioOrdered By: Viviana Mcgee on 03-30-2024 Urea nitrogen/Creatinine [Mass ratio] 15.5 mg/mg 10-20 [facility] Carbon dioxide measurementOr dered By: Viviana Mcgee on 03-30-2024 CO2 [Moles/Vol] 27.0 mmol/L 21.0-32.0 [facility] Chloride measurementOrdered By: Viviana Mcgee on 03-30-2024 Chloride [Moles/Vol] 112 mmol/L High 98-107 [facility] Eosinophil percentageOrdered By: Viviana Mcgee on 03-30-2024 Eosinophils/100 WBC (Bld) 2.8 % 0-5 [facility] Erythrocyte distribution wid th (RBC) [Ratio]Ordered By: Viviana Mcgee on 03-30-2024 Erythrocyte distribution width (RBC) [Entitic vol] 46.0 fL High 35.1-43.9 [facility] Erythrocyte distribution wid th ratioOrdered By: Viviana Mcgee on 03-30-2024 Erythrocyte distribution width (RBC) [Ratio] 12.8 % 11.6-14.6 [facility] Estimated glomerular filtrat ion rate (GFR) AmericanOrdered By: Viviana Mcgee on 03-30-2024 Estimated GFR (MDRD) Amer 93 mL/min >60 [facility] Comment on above: GFR Calc Glomerular filtration rate ( GFR) estimationOrdered By: Viviana Mcgee on 03-30-2024 Estimated GFR (MDRD) Non-Af Amer 77 mL/min >60 [facility] Comment on above: Non- GFR Calc Glucose measurementOrdered B y: Viviana Mcgee on 03-30-2024 Glucose [Mass/Vol] 119 mg/dL High 74-106 [facility] Comment on above: Fasting Glucose resu lt from 100 to 125 mg/dL suggests IMPAIRED HOMEOSTASIS per A.D.A. criteria. Hematocrit Auto (Bld) [Volum e fraction]Ordered By: Viviana Mcgee on 03-30-2024 Hematocrit (Bld) [Volume fraction] 37.1 % 37-47 [facility] Hemoglobin measurementOrdere d By: Viviana Mcgee on 03-30-2024 Hemoglobin (Bld) [Mass/Vol] 12.1 g/dL 12.0-15.0 [facility] Immature granulocytes/100 WB C Auto (Bld)Ordered By: Viviana Mcgee on 03-30-2024 Immature granulocytes/100 WBC (Bld) 0.400 % 0.0-0.9 [facility] Comment on above: IG% - Immature Granu locytes (promyelocytes, myelocytes and metamyelocytes) > 1% indicates that a LEFT SHIFT is Present. Laboratory - Chemistry and C hemistry - challengeOrdered By: Viviana Mcgee on 03-30-2024 AST [Catalytic activity/Vol] 14 U/L Low 15-37 [facility] Lymphocytes Auto (Unsp spec) [#/Vol]Ordered By: Viviana Mcgee on 03-30-2024 Lymphocytes (Bld) [#/Vol] 1.63 10*3/uL 0.83-4.51 [facility] Lymphocytes/100 WBC Auto (Un sp spec)Ordered By: Viviana Mcgee on 03-30-2024 Lymphocytes/100 WBC (Bld) 30.2 % 19-41 [facility] MCV (mean corpuscular volume ) determinationOrdered By: Viviana Mcgee on 03-30-2024 MCV (RBC) [Entitic vol] 98.1 fL 81-99 [facility] Mean corpuscular hemoglobin (MCH) determinationOrdered By: Viviana Mcgee on 03-30-2024 MCH (RBC) [Entitic mass] 32.0 pg 27.0-32.0 [facility] Mean corpuscular hemoglobin concentration (MCHC) determinationOrdered By: Viviana Mcgee on 03-30-2024 MCHC (RBC) [Mass/Vol] 32.6 g/dL 32-36 [facility] Mean platelet volume determi nationOrdered By: Viviana Mcgee on 03-30-2024 Platelet mean volume (Bld) [Entitic vol] 9.8 fL 6.2-12.0 [facility] Monocyte percentageOrdered B y: Viviana Mcgee on 03-30-2024 Monocytes/100 WBC (Bld) 10.4 % High 0-10 [facility] Neutrophil percentageOrdered By: Viviana Mcgee on 03-30-2024 Neutrophils/100 WBC (Bld) 55.3 % 47-70 [facility] Nucleated red blood cell per centageOrdered By: Viviana Mcgee on 03-30-2024 Nucleated RBC/100 WBC (Bld) [Ratio] 0 % 0-5 [facility] Platelet countOrdered By: Link Mcgee on 03-30-2024 Platelets (Bld) [#/Vol] 241 10*3/uL 150-450 [facility] Potassium measurementOrdered By: Viviana Mcgee on 03-30-2024 Potassium [Moles/Vol] 3.7 mmol/L 3.5-5.1 [facility] RBC Auto (Bld) [#/Vol]Ordere d By: Viviana Mcgee on 03-30-2024 RBC (Bld) [#/Vol] 3.78 10*6/uL Low 4.2-5.4 [facility] Serum anion gap measurementO rdered By: Viviana Mcgee on 03-30-2024 Anion gap [Moles/Vol] 6 mmol/L 5-15 [facility] Serum globulin measurementOr dered By: Viviana Mcgee on 03-30-2024 Globulin (S) [Mass/Vol] 3.1 g/dL 2.2-4.2 [facility] Serum or plasma alanine jay otransferase (ALT) measurementOrdered By: Viviana Mcgee on 03-30-2024 ALT [Catalytic activity/Vol] 15 U/L 13-56 [facility] Serum or plasma albumin fiona urement (mass/volume)Ordered By: Linklevy Mcgee on 03-30-2024 Albumin [Mass/Vol] 3.5 g/dL 3.2-5.0 [facility] Serum or plasma alkaline dmitry sphatase measurementOrdered By: Linklawsonjose apapa Watsonluizji on 03-30-2024 ALP [Catalytic activity/Vol] 114 U/L 45-117 [facility] Serum or plasma calcium fiona urement (mass/volume)Ordered By: Viviana Mcgee on 03-30-2024 Calcium [Mass/Vol] 8.5 mg/dL 8.5-10.1 [facility] Serum or plasma creatinine m easurement (mass/volume)Ordered By: Linklevy Watsonluizji on 03-30-2024 Creatinine [Mass/Vol] 0.77 mg/dL 0.55-1.02 [facility] Comment on above: The validity of the calculated GFR & GFRAA in patients over 70 years has not been determined. Clinical correlation is essential. Serum or plasma urea nitroge n measurement (mass/volume)Ordered By: Linklevy Mcgee on 03-30-2024 Urea nitrogen [Mass/Vol] 12 mg/dL 7-18 [facility] Sodium levelOrdered By: Reynaldo jaramillo Walterluizji on 03-30-2024 Sodium [Moles/Vol] 144 mmol/L 136-145 [facility] Total proteinOrdered By: Reza boothe Walterluizji on 03-30-2024 Protein [Mass/Vol] 6.6 g/dL 6.4-8.2 [facility] White blood cell (WBC) count Ordered By: Viviana Mcgee on 03-30-2024 WBC (Bld) [#/Vol] 5.4 10*3/uL 4.4-11.0 [facility] Absolute lymphocyte countOrd ered By: Matilda Doherty on 08-26-2023 Lymphocytes Auto (Unsp spec) [#/Vol] 1.44 10*3/uL 0.83-4.51 [facility] Automated lymphocyte count a s percentage of total leukocytesOrdered By: Matilda Doherty on 08-26-2023 Lymphocytes/100 WBC Auto (Unsp spec) 30.2 % 19-41 [facility] Basophil percentageOrdered B y: Matilda Doherty on 08-26-2023 Basophils/100 WBC (Bld) 1.3 % 0-1 [facility] Bilirubin [Mass/Vol] 0.30 mg/dL 0.20-1.00 [facility] Comment on above: For patients on eltr ombopag therapy, use of Dimension [place] TBIL is not recommended. Chloride [Moles/Vol] 109 mmol/L 98-107 [facility] Eosinophils/100 WBC (Bld) 3.8 % 0-5 [facility] Glucose [Mass/Vol] 121 mg/dL 74-106 [facility] Comment on above: Fasting Glucose resu lt from 100 to 125 mg/dL suggests IMPAIRED HOMEOSTASIS per A.D.A. criteria. Hemoglobin (Bld) [Mass/Vol] 12.1 g/dL 12.0-15.0 [facility] Monocytes/100 WBC (Bld) 11.7 % 0-10 [facility] Neutrophils (Bld) [#/Vol] 2.5 10*3/uL 2.0-7.7 [facility] Neutrophils/100 WBC (Bld) 52.8 % 47-70 [facility] Potassium [Moles/Vol] 4.3 mmol/L 3.5-5.1 [facility] Protein [Mass/Vol] 6.9 g/dL 6.4-8.2 [facility] Sodium [Moles/Vol] 141 mmol/L 136-145 [facility] WBC (Bld) [#/Vol] 4.8 10*3/uL 4.4-11.0 [facility] Determination of erythrocyte mean corpuscular volume (MCV)Ordered By: Matilda Doherty on 08-26-2023 MCV (RBC) [Entitic vol] 99.5 fL 81-99 [facility] Erythrocyte distribution wid th ratioOrdered By: Matilda Doherty on 08-26-2023 Erythrocyte distribution width (RBC) [Ratio] 12.6 % 11.6-14.6 [facility] Erythrocyte distribution wid th standard deviationOrdered By: Matilda Doherty on 08-26-2023 Erythrocyte distribution width (RBC) [Entitic vol] 46.0 fL 35.1-43.9 [facility] Hematocrit Auto (Bld) [Volum e fraction]Ordered By: Matilda Doherty on 08-26-2023 Hematocrit (Bld) [Volume fraction] 37.6 % 37-47 [facility] Immature granulocytes/100 WB C Auto (Bld)Ordered By: Matilda Doherty on 08-26-2023 Immature granulocytes/100 WBC (Bld) 0.200 % 0.0-0.9 [facility] Comment on above: IG% - Immature Granu locytes (promyelocytes, myelocytes and metamyelocytes) > 1% indicates that a LEFT SHIFT is Present. Laboratory - Chemistry and C hemistry - challengeOrdered By: Matilda Doherty on 08-26-2023 Albumin/Globulin [Mass ratio] 1.1 {ratio} 0.9-2.4 [facility] ALP [Catalytic activity/Vol] 89 U/L 45-117 [facility] ALT [Catalytic activity/Vol] 17 U/L 13-56 [facility] CO2 [Moles/Vol] 24.0 mmol/L 21.0-32.0 [facility] Globulin (S) [Mass/Vol] 3.3 g/dL 2.2-4.2 [facility] Urea nitrogen/Creatinine [Mass ratio] 17.3 mg/mg 10-20 [facility] Laboratory - Hematology and Cell countsOrdered By: Matilda Doherty on 08-26-2023 MCH (RBC) [Entitic mass] 32.0 pg 27.0-32.0 [facility] MCHC (RBC) [Mass/Vol] 32.2 g/dL 32-36 [facility] Nucleated RBC/100 WBC (Bld) [Ratio] 0 % 0-5 [facility] Platelet mean volume (Bld) [Entitic vol] 9.3 fL 6.2-12.0 [facility] Platelets (Bld) [#/Vol] 250 10*3/uL 150-450 [facility] No Panel InformationOrdered By: Matilda Doherty on 08-26-2023 Estimated GFR (MDRD) Amer 76 mL/min >60 [facility] Comment on above: GFR Calc Estimated GFR (MDRD) Non-Af Amer 63 mL/min >60 [facility] Comment on above: Non- GFR Calc RBC Auto (Bld) [#/Vol]Ordere d By: Matilda Doherty on 08-26-2023 RBC (Bld) [#/Vol] 3.78 10*6/uL 4.2-5.4 [facility] Serum or plasma calcium fiona urement (mass/volume)Ordered By: Matilda Doherty on 08-26-2023 Calcium [Mass/Vol] 8.8 mg/dL 8.5-10.1 [facility] Serum or plasma creatinine m easurement (mass/volume)Ordered By: Matilda Doherty on 08-26-2023 Creatinine [Mass/Vol] 0.92 mg/dL 0.55-1.02 [facility] Comment on above: The validity of the calculated GFR & GFRAA in patients over 70 years has not been determined. Clinical correlation is essential. Serum or plasma thyroid stim ulating hormone (TSH) measurement (units/volume)Ordered By: Matilda Doherty on 08-26-2023 TSH Qn 1.89 uIU/mL 0.358-3.74 [facility] Serum or plasma urea nitroge n measurement (mass/volume)Ordered By: Matilda Doherty on 08-26-2023 Urea nitrogen [Mass/Vol] 16 mg/dL 7-18 [facility] Thin prep Papanicolaou smear with manual screeningOrdered By: Matilda Doherty on 08-26-2023 Thin prep Papanicolaou smear with manual screening 3.6 g/dL 3.2-5.0 [facility] Thin prep Papanicolaou smear with manual screening 16 U/L 15-37 [facility] Thin prep Papanicolaou smear with manual screening 8 5-15 [facility] No Panel InformationOrdered By: Viviana Mcgee on 08-16-2023 Vitamin D 25-Hydroxy 74.1 ng/mL [facility] Comment on above: Vitamin D 25(OH) Sta tus Range Deficiency <20 ng/mL (50nmol/L) Insufficiency 20 - 30 ng/mL (50 - 75 nmol/L) Sufficiency 30 - 100 ng/mL (75 - 250 nmol/L) Toxicity >100 ng/mL (>250 nmol/L) Absolute lymphocyte countOrd ered By: [place] Watsonluizji on 07-29-2023 Lymphocytes Auto (Unsp spec) [#/Vol] 1.41 10*3/uL 0.83-4.51 [facility] Automated lymphocyte count a s percentage of total leukocytesOrdered By: Viviana Walterluizji on 07-29-2023 Lymphocytes/100 WBC Auto (Unsp spec) 21.1 % 19-41 [facility] Basophil percentageOrdered B y: Viviana Waltertamica on 07-29-2023 Basophils/100 WBC (Bld) 0.7 % 0-1 [facility] Bilirubin [Mass/Vol] 0.30 mg/dL 0.20-1.00 [facility] Comment on above: For patients on eltr ombopag therapy, use of Dimension [place] TBIL is not recommended. Chloride [Moles/Vol] 113 mmol/L 98-107 [facility] Eosinophils/100 WBC (Bld) 2.7 % 0-5 [facility] Glucose [Mass/Vol] 112 mg/dL 74-106 [facility] Comment on above: Fasting Glucose resu lt from 100 to 125 mg/dL suggests IMPAIRED HOMEOSTASIS per A.D.A. criteria. Hemoglobin (Bld) [Mass/Vol] 12.0 g/dL 12.0-15.0 [facility] Monocytes/100 WBC (Bld) 9.1 % 0-10 [facility] Neutrophils (Bld) [#/Vol] 4.4 10*3/uL 2.0-7.7 [facility] Neutrophils/100 WBC (Bld) 66.0 % 47-70 [facility] Potassium [Moles/Vol] 4.0 mmol/L 3.5-5.1 [facility] Protein [Mass/Vol] 6.8 g/dL 6.4-8.2 [facility] Sodium [Moles/Vol] 142 mmol/L 136-145 [facility] WBC (Bld) [#/Vol] 6.7 10*3/uL 4.4-11.0 [facility] Determination of erythrocyte mean corpuscular volume (MCV)Ordered By: Viviana Mcgee on 04-05-2024 MCV (RBC) [Entitic vol] 99.2 fL 81-99 [facility] Erythrocyte distribution wid th ratioOrdered By: Viviana Mcgee on 07-29-2023 Erythrocyte distribution width (RBC) [Ratio] 12.8 % 11.6-14.6 [facility] Erythrocyte distribution wid th standard deviationOrdered By: [facility] on 07-29-2023 Erythrocyte distribution width (RBC) [Entitic vol] 46.4 fL 35.1-43.9 [facility] Hematocrit Auto (Bld) [Volum e fraction]Ordered By: Viviana Mcgee on 07-29-2023 Hematocrit (Bld) [Volume fraction] 37.3 % 37-47 [facility] Immature granulocytes/100 WB C Auto (Bld)Ordered By: lawsonsanta fepapa Mcgee on 07-29-2023 Immature granulocytes/100 WBC (Bld) 0.400 % 0.0-0.9 [facility] Comment on above: IG% - Immature Granu locytes (promyelocytes, myelocytes and metamyelocytes) > 1% indicates that a LEFT SHIFT is Present. Laboratory - Chemistry and C hemistry - challengeOrdered By: Viviana Mcgee on 07-29-2023 Albumin/Globulin [Mass ratio] 1.0 {ratio} 0.9-2.4 [facility] ALP [Catalytic activity/Vol] 92 U/L 45-117 [facility] ALT [Catalytic activity/Vol] 15 U/L 13-56 [facility] CO2 [Moles/Vol] 25.0 mmol/L 21.0-32.0 [facility] Globulin (S) [Mass/Vol] 3.4 g/dL 2.2-4.2 [facility] Urea nitrogen/Creatinine [Mass ratio] 13.4 mg/mg 10-20 [facility] Laboratory - Hematology and Cell countsOrdered By: Viviana Mcgee on 07-29-2023 MCH (RBC) [Entitic mass] 31.9 pg 27.0-32.0 [facility] MCHC (RBC) [Mass/Vol] 32.2 g/dL 32-36 [facility] Nucleated RBC/100 WBC (Bld) [Ratio] 0 % 0-5 [facility] Platelet mean volume (Bld) [Entitic vol] 9.4 fL 6.2-12.0 [facility] Platelets (Bld) [#/Vol] 275 10*3/uL 150-450 [facility] No Panel InformationOrdered By: Viviana Mcgee on 07-29-2023 Estimated GFR (MDRD) Amer 79 mL/min >60 [facility] Comment on above: GFR Calc Estimated GFR (MDRD) Non-Af Amer 65 mL/min >60 [facility] Comment on above: Non- GFR Calc RBC Auto (Bld) [#/Vol]Ordere d By: Viviana Mcgee on 07-29-2023 RBC (Bld) [#/Vol] 3.76 10*6/uL 4.2-5.4 [facility] Serum or plasma calcium fiona urement (mass/volume)Ordered By: Viviana Mcgee on 07-29-2023 Calcium [Mass/Vol] 8.8 mg/dL 8.5-10.1 [facility] Serum or plasma creatinine m easurement (mass/volume)Ordered By: Viviana Mcgee on 07-29-2023 Creatinine [Mass/Vol] 0.89 mg/dL 0.55-1.02 [facility] Comment on above: The validity of the calculated GFR & GFRAA in patients over 70 years has not been determined. Clinical correlation is essential. Serum or plasma urea nitroge n measurement (mass/volume)Ordered By: Viviana Mcgee on 07-29-2023 Urea nitrogen [Mass/Vol] 12 mg/dL 7-18 [facility] Thin prep Papanicolaou smear with manual screeningOrdered By: Viviana Mcgee on 07-29-2023 Thin prep Papanicolaou smear with manual screening 3.4 g/dL 3.2-5.0 [facility] Thin prep Papanicolaou smear with manual screening 17 U/L 15-37 [facility] Thin prep Papanicolaou smear with manual screening 4 5-15 [facility] Absolute lymphocyte countOrd ered By: Matilda Doherty on 06-24-2023 Lymphocytes Auto (Unsp spec) [#/Vol] 1.01 10*3/uL 0.83-4.51 [facility] Automated lymphocyte count a s percentage of total leukocytesOrdered By: Matilda Estellaheaven on 06-24-2023 Lymphocytes/100 WBC Auto (Unsp spec) 16.4 % 19-41 [facility] Basophil percentageOrdered B y: Matilda Doherty on 06-24-2023 Basophils/100 WBC (Bld) 0.7 % 0-1 [facility] Bilirubin [Mass/Vol] 0.40 mg/dL 0.20-1.00 [facility] Comment on above: For patients on eltr ombopag therapy, use of Dimension [place] TBIL is not recommended. Chloride [Moles/Vol] 111 mmol/L 98-107 [facility] Cholesterol [Mass/Vol] 108 mg/dL <200 [facility] Comment on above: <200 mg/dL Desirable 200-240 mg/dL Borderline >240 mg/dL High Risk Eosinophils/100 WBC (Bld) 2.9 % 0-5 [facility] Glucose [Mass/Vol] 142 mg/dL 74-106 [facility] Comment on above: Fasting Glucose resu lt greater than or equal to 126 mg/dL suggests DIABETES MELLITUS per A.D.A. criteria. Hemoglobin (Bld) [Mass/Vol] 11.9 g/dL 12.0-15.0 [facility] Monocytes/100 WBC (Bld) 11.5 % 0-10 [facility] Neutrophils (Bld) [#/Vol] 4.2 10*3/uL 2.0-7.7 [facility] Neutrophils/100 WBC (Bld) 68.3 % 47-70 [facility] Potassium [Moles/Vol] 4.3 mmol/L 3.5-5.1 [facility] Protein [Mass/Vol] 6.8 g/dL 6.4-8.2 [facility] Sodium [Moles/Vol] 140 mmol/L 136-145 [facility] Triglyceride [Mass/Vol] 204 mg/dL <199 [facility] Comment on above: The drugs N-Acetylcy steine and Metamizole may falsely depress this assay.Serum Triglycerides Reference Interval Normal <150 mg/dL Borderline high 150 - 199 mg/dL High 200 - 499 mg/dL Very High > or = 500 mg/dL WBC (Bld) [#/Vol] 6.2 10*3/uL 4.4-11.0 [facility] Determination of erythrocyte mean corpuscular volume (MCV)Ordered By: Matilda Doherty on 06-24-2023 MCV (RBC) [Entitic vol] 98.9 fL 81-99 [facility] Erythrocyte distribution wid th ratioOrdered By: Matilda Doherty on 06-24-2023 Erythrocyte distribution width (RBC) [Ratio] 12.8 % 11.6-14.6 [facility] Erythrocyte distribution wid th standard deviationOrdered By: Matilda Doherty on 06-24-2023 Erythrocyte distribution width (RBC) [Entitic vol] 46.1 fL 35.1-43.9 [facility] Hematocrit Auto (Bld) [Volum e fraction]Ordered By: Matilda Doherty on 06-24-2023 Hematocrit (Bld) [Volume fraction] 36.5 % 37-47 [facility] Immature granulocytes/100 WB C Auto (Bld)Ordered By: Matilda Doherty on 06-24-2023 Immature granulocytes/100 WBC (Bld) 0.200 % 0.0-0.9 [facility] Comment on above: IG% - Immature Granu locytes (promyelocytes, myelocytes and metamyelocytes) > 1% indicates that a LEFT SHIFT is Present. Laboratory - Chemistry and C hemistry - challengeOrdered By: Matilda Doherty on 06-24-2023 Albumin/Globulin [Mass ratio] 1.0 {ratio} 0.9-2.4 [facility] ALP [Catalytic activity/Vol] 110 U/L 45-117 [facility] ALT [Catalytic activity/Vol] 16 U/L 13-56 [facility] Cholesterol in HDL [Mass/Vol] 38 mg/dL >40 [facility] Comment on above: The drugs N-Acetylcy steine and Metamizole may falsely depress this assay. Reference Range HDL <40 mg/dL Low HDL Cholesterol HDL >or= 60 mg/dL High HDL Cholesterol Cholesterol in LDL [Mass/Vol] 29 mg/dL 0-130 [facility] CO2 [Moles/Vol] 25.0 mmol/L 21.0-32.0 [facility] Globulin (S) [Mass/Vol] 3.4 g/dL 2.2-4.2 [facility] Urea nitrogen/Creatinine [Mass ratio] 12.3 mg/mg 10-20 [facility] Laboratory - Hematology and Cell countsOrdered By: Matilda Doherty on 06-24-2023 MCH (RBC) [Entitic mass] 32.2 pg 27.0-32.0 [facility] MCHC (RBC) [Mass/Vol] 32.6 g/dL 32-36 [facility] Nucleated RBC/100 WBC (Bld) [Ratio] 0 % 0-5 [facility] Platelet mean volume (Bld) [Entitic vol] 9.1 fL 6.2-12.0 [facility] Platelets (Bld) [#/Vol] 267 10*3/uL 150-450 [facility] No Panel InformationOrdered By: Matilda Doherty on 06-24-2023 Estimated GFR (MDRD) Amer 72 mL/min >60 [facility] Comment on above: GFR Calc Estimated GFR (MDRD) Non-Af Amer 59 mL/min >60 [facility] Comment on above: Non- GFR Calc VLDL Cholesterol 41 mg/dL 5-40 [facility] RBC Auto (Bld) [#/Vol]Ordere d By: Matilda Doherty on 06-24-2023 RBC (Bld) [#/Vol] 3.69 10*6/uL 4.2-5.4 [facility] [place] [place] Serum or plasma calcium fiona urement (mass/volume)Ordered By: Matilda Doherty on 06-24-2023 Calcium [Mass/Vol] 9.2 mg/dL 8.5-10.1 [facility] Serum or plasma creatinine m easurement (mass/volume)Ordered By: Matilda Doherty on 06-24-2023 Creatinine [Mass/Vol] 0.97 mg/dL 0.55-1.02 [facility] Comment on above: The validity of the calculated GFR & GFRAA in patients over 70 years has not been determined. Clinical correlation is essential. Serum or plasma urea nitroge n measurement (mass/volume)Ordered By: Matilda Doherty on 06-24-2023 Urea nitrogen [Mass/Vol] 12 mg/dL 7-18 [facility] Thin prep Papanicolaou smear with manual screeningOrdered By: Matilda Doherty on 06-24-2023 Thin prep Papanicolaou smear with manual screening 3.4 g/dL 3.2-5.0 [facility] Thin prep Papanicolaou smear with manual screening 11 U/L 15-37 [facility] Thin prep Papanicolaou smear with manual screening 4 5-15 [facility] Whole blood hemoglobin A1c/t otal hemoglobin ratio (mass fraction)Ordered By: Matilda Doherty on 06-24-2023 HbA1c (Bld) [Mass fraction] 7.5 % 3.8-5.6 [facility] Comment on above: Normal < 5.7 % Predi abetic 5.7 - 6.4 % Diabetic >or= 6.5 % Please note range changes. Absolute lymphocyte countOrd ered By: Reynaldosanta fepapa Mcgee on 05-27-2023 Lymphocytes Auto (Unsp spec) [#/Vol] 1.09 10*3/uL 0.83-4.51 [facility] Automated lymphocyte count a s percentage of total leukocytesOrdered By: Viviana Mcgee on 05-27-2023 Lymphocytes/100 WBC Auto (Unsp spec) 9.6 % 19-41 [facility] Basophil percentageOrdered B y: Viviana Mcgee on 05-27-2023 Basophils/100 WBC (Bld) 0.4 % 0-1 [facility] Bilirubin [Mass/Vol] 0.20 mg/dL 0.20-1.00 [facility] Comment on above: For patients on eltr ombopag therapy, use of Dimension [place] TBIL is not recommended. Chloride [Moles/Vol] 114 mmol/L 98-107 [facility] Eosinophils/100 WBC (Bld) 0.7 % 0-5 [facility] Glucose [Mass/Vol] 224 mg/dL 74-106 [facility] Comment on above: Glucose result great er than or equal to 200 mg/dLsuggests DIABETES MELLITUS per A.D.A. criteria. Hemoglobin (Bld) [Mass/Vol] 12.5 g/dL 12.0-15.0 [facility] Monocytes/100 WBC (Bld) 9.0 % 0-10 [facility] Neutrophils (Bld) [#/Vol] 9.1 10*3/uL 2.0-7.7 [facility] Neutrophils/100 WBC (Bld) 80.0 % 47-70 [facility] Potassium [Moles/Vol] 4.6 mmol/L 3.5-5.1 [facility] Protein [Mass/Vol] 7.9 g/dL 6.4-8.2 [facility] Sodium [Moles/Vol] 137 mmol/L 136-145 [facility] WBC (Bld) [#/Vol] 11.3 10*3/uL 4.4-11.0 [facility] Determination of erythrocyte mean corpuscular volume (MCV)Ordered By: Viviana Mcgee on 05-27-2023 MCV (RBC) [Entitic vol] 101.0 fL 81-99 [facility] Erythrocyte distribution wid th ratioOrdered By: [facility] Watsonji on 05-27-2023 Erythrocyte distribution width (RBC) [Ratio] 13.0 % 11.6-14.6 [facility] Erythrocyte distribution wid th standard deviationOrdered By: [facility] Watsonji on 05-27-2023 Erythrocyte distribution width (RBC) [Entitic vol] 48.2 fL 35.1-43.9 [facility] Hematocrit Auto (Bld) [Volum e fraction]Ordered By: Reynaldosanta fepapa Mcgee on 05-27-2023 Hematocrit (Bld) [Volume fraction] 39.5 % 37-47 [facility] Immature granulocytes/100 WB C Auto (Bld)Ordered By: Viivana Mcgee on 05-27-2023 Immature granulocytes/100 WBC (Bld) 0.300 % 0.0-0.9 [facility] Comment on above: IG% - Immature Granu locytes (promyelocytes, myelocytes and metamyelocytes) > 1% indicates that a LEFT SHIFT is Present. Laboratory - Chemistry and C hemistry - challengeOrdered By: Viviana Mcgee on 05-27-2023 Albumin/Globulin [Mass ratio] 0.9 {ratio} 0.9-2.4 [facility] ALP [Catalytic activity/Vol] 117 U/L 45-117 [facility] ALT [Catalytic activity/Vol] 21 U/L 13-56 [facility] CO2 [Moles/Vol] 19.0 mmol/L 21.0-32.0 [facility] Globulin (S) [Mass/Vol] 4.1 g/dL 2.2-4.2 [facility] Urea nitrogen/Creatinine [Mass ratio] 18.8 mg/mg 10-20 [facility] Laboratory - Hematology and Cell countsOrdered By: Viviana Mcgee on 05-27-2023 MCH (RBC) [Entitic mass] 32.0 pg 27.0-32.0 [facility] MCHC (RBC) [Mass/Vol] 31.6 g/dL 32-36 [facility] Nucleated RBC/100 WBC (Bld) [Ratio] 0 % 0-5 [facility] Platelets (Bld) [#/Vol] 301 10*3/uL 150-450 [facility] No Panel InformationOrdered By: Viviana Mcgee on 05-27-2023 Estimated GFR (MDRD) Amer 61 mL/min >60 [facility] Comment on above: GFR Calc Estimated GFR (MDRD) Non-Af Amer 50 mL/min >60 [facility] Comment on above: Non- GFR Calc Platelet mean volume Bj-Ec ker (Bld) [Entitic vol]Ordered By: Viviana Mcgee on 05-27-2023 Platelet mean volume (Bld) [Entitic vol] 9.3 fL 6.2-12.0 [facility] RBC Auto (Bld) [#/Vol]Ordere d By: Viviana Mcgee on 05-27-2023 RBC (Bld) [#/Vol] 3.91 10*6/uL 4.2-5.4 [facility] [place] [place] Serum or plasma calcium fiona urement (mass/volume)Ordered By: Viviana Mcgee on 05-27-2023 Calcium [Mass/Vol] 9.0 mg/dL 8.5-10.1 [facility] [place] [place] Serum or plasma creatinine m easurement (mass/volume)Ordered By: Viviana Mcgee on 05-27-2023 Creatinine [Mass/Vol] 1.12 mg/dL 0.55-1.02 [facility] Comment on above: The validity of the calculated GFR & GFRAA in patients over 70 years has not been determined. Clinical correlation is essential. Serum or plasma urea nitroge n measurement (mass/volume)Ordered By: Viviana Mcgee on 05-27-2023 Urea nitrogen [Mass/Vol] 21 mg/dL 7-18 [facility] Thin prep Papanicolaou smear with manual screeningOrdered By: Viviana Mcgee on 05-27-2023 Thin prep Papanicolaou smear with manual screening 3.8 g/dL 3.2-5.0 [facility] Thin prep Papanicolaou smear with manual screening 14 U/L 15-37 [facility] Thin prep Papanicolaou smear with manual screening 4 5-15 [facility] Absolute lymphocyte countOrd ered By: Viviana Mcgee on 04-29-2023 Lymphocytes Auto (Unsp spec) [#/Vol] 1.47 10*3/uL 0.83-4.51 [facility] Basophil percentageOrdered B y: Viviana Mcgee on 04-29-2023 Basophils/100 WBC (Bld) 1.3 % 0-1 [facility] Bilirubin [Mass/Vol] 0.30 mg/dL 0.20-1.00 [facility] Comment on above: For patients on eltr ombopag therapy, use of Dimension [place] TBIL is not recommended. Chloride [Moles/Vol] 109 mmol/L 98-107 [facility] Eosinophils/100 WBC (Bld) 3.0 % 0-5 [facility] Glucose [Mass/Vol] 144 mg/dL 74-106 [facility] Comment on above: Fasting Glucose resu lt greater than or equal to 126 mg/dL suggests DIABETES MELLITUS per A.D.A. criteria. Neutrophils (Bld) [#/Vol] 3.4 10*3/uL 2.0-7.7 [facility] Neutrophils/100 WBC (Bld) 60.2 % 47-70 [facility] Potassium [Moles/Vol] 4.1 mmol/L 3.5-5.1 [facility] Protein [Mass/Vol] 7.5 g/dL 6.4-8.2 [facility] Sodium [Moles/Vol] 139 mmol/L 136-145 [facility] WBC (Bld) [#/Vol] 5.6 10*3/uL 4.4-11.0 [facility] Blood erythrocytes count (nu mber/volume)Ordered By: Viviana Mcgee on 04-29-2023 RBC (Bld) [#/Vol] 3.98 10*6/uL 4.2-5.4 [facility] Blood hemoglobin measurement (mass/volume)Ordered By: Viviana Mcgee on 04-29-2023 Hemoglobin (Bld) [Mass/Vol] 12.6 g/dL 12.0-15.0 [facility] Blood lymphocytes/100 leukoc ytesOrdered By: Viviana Mcgee on 04-29-2023 Lymphocytes/100 WBC (Bld) 26.3 % 19-41 [facility] Blood monocytes/100 leukocyt esOrdered By: Viviana Mcgee on 04-29-2023 Monocytes/100 WBC (Bld) 8.8 % 0-10 [facility] Blood platelet mean volumeOr dered By: Viviana Mcgee on 04-29-2023 Platelet mean volume (Bld) [Entitic vol] 9.3 fL 6.2-12.0 [facility] Determination of erythrocyte mean corpuscular volume (MCV)Ordered By: Viviana Mcgee on 04-29-2023 MCV (RBC) [Entitic vol] 98.7 fL 81-99 [facility] Hematocrit Auto (Bld) [Volum e fraction]Ordered By: Viviana Mcgee on 04-29-2023 Hematocrit (Bld) [Volume fraction] 39.3 % 37-47 [facility] Laboratory - Chemistry and C hemistry - challengeOrdered By: Viviana Mcgee on 04-29-2023 ALP [Catalytic activity/Vol] 102 U/L 45-117 [facility] ALT [Catalytic activity/Vol] 14 U/L 13-56 [facility] CO2 [Moles/Vol] 25.0 mmol/L 21.0-32.0 [facility] Globulin (S) [Mass/Vol] 3.9 g/dL 2.2-4.2 [facility] Urea nitrogen/Creatinine [Mass ratio] 16.7 mg/mg 10-20 [facility] Laboratory - Hematology and Cell countsOrdered By: Viviana Mcgee on 04-29-2023 Erythrocyte distribution width (RBC) [Entitic vol] 46.8 fL 35.1-43.9 [facility] Erythrocyte distribution width (RBC) [Ratio] 12.9 % 11.6-14.6 [facility] Immature granulocytes/100 WBC (Bld) 0.400 % 0.0-0.9 [facility] Comment on above: IG% - Immature Granu locytes (promyelocytes, myelocytes and metamyelocytes) > 1% indicates that a LEFT SHIFT is Present. MCH (RBC) [Entitic mass] 31.7 pg 27.0-32.0 [facility] Nucleated RBC/100 WBC (Bld) [Ratio] 0 % 0-5 [facility] MCHC Auto (RBC) [Mass/Vol]Or dered By: Viviana Mcgee on 04-29-2023 MCHC (RBC) [Mass/Vol] 32.1 g/dL 32-36 [facility] No Panel InformationOrdered By: Viviana Mcgee on 04-29-2023 Estimated GFR (MDRD) Amer 73 mL/min >60 [facility] Comment on above: GFR Calc Estimated GFR (MDRD) Non-Af Amer 60 mL/min >60 [facility] Comment on above: Non- GFR Calc Vitamin D 25-Hydroxy 13.0 ng/mL [facility] Comment on above: Vitamin D 25(OH) Sta tus Range Deficiency <20 ng/mL (50nmol/L) Insufficiency 20 - 30 ng/mL (50 - 75 nmol/L) Sufficiency 30 - 100 ng/mL (75 - 250 nmol/L) Toxicity >100 ng/mL (>250 nmol/L) Platelets bldOrdered By: Reza Mcgee on 04-29-2023 Platelets (Bld) [#/Vol] 289 10*3/uL 150-450 [facility] Serum or plasma albumin fiona urement (mass/volume)Ordered By: Viviana Mcgee on 04-29-2023 Albumin [Mass/Vol] 3.6 g/dL 3.2-5.0 [facility] Serum or plasma albumin/glob ulin mass ratioOrdered By: Viviana Mcgee on 04-29-2023 Albumin/Globulin [Mass ratio] 0.9 {ratio} 0.9-2.4 [facility] Serum or plasma calcium fiona urement (mass/volume)Ordered By: Viviana Mcgee on 04-29-2023 Calcium [Mass/Vol] 9.0 mg/dL 8.5-10.1 [facility] Serum or plasma creatinine m easurement (mass/volume)Ordered By: Viviana Mcgee on 04-29-2023 Creatinine [Mass/Vol] 0.96 mg/dL 0.55-1.02 [facility] Comment on above: The validity of the calculated GFR & GFRAA in patients over 70 years has not been determined. Clinical correlation is essential. Serum or plasma urea nitroge n measurement (mass/volume)Ordered By: Viviana Mcgee on 04-29-2023 Urea nitrogen [Mass/Vol] 16 mg/dL 7-18 [facility] Thin prep Papanicolaou smear with manual screeningOrdered By: Viviana Mcgee on 04-29-2023 Thin prep Papanicolaou smear with manual screening 10 U/L 15-37 [facility] Thin prep Papanicolaou smear with manual screening 5 5-15 [facility] Absolute lymphocyte countOrd ered By: Viviana Mcgee on 03-25-2023 Lymphocytes Auto (Unsp spec) [#/Vol] 1.53 10*3/uL 0.83-4.51 [facility] Basophil percentageOrdered B y: Viviana Mcgee on 03-25-2023 Basophils/100 WBC (Bld) 0.8 % 0-1 [facility] Bilirubin [Mass/Vol] 0.20 mg/dL 0.20-1.00 [facility] Comment on above: For patients on eltr ombopag therapy, use of Dimension [place] TBIL is not recommended. Chloride [Moles/Vol] 107 mmol/L 98-107 [facility] Eosinophils/100 WBC (Bld) 2.3 % 0-5 [facility] Glucose [Mass/Vol] 189 mg/dL 74-106 [facility] Comment on above: Fasting Glucose resu lt greater than or equal to 126 mg/dL suggests DIABETES MELLITUS per A.D.A. criteria. Neutrophils (Bld) [#/Vol] 4.9 10*3/uL 2.0-7.7 [facility] Neutrophils/100 WBC (Bld) 66.1 % 47-70 [facility] Potassium [Moles/Vol] 4.4 mmol/L 3.5-5.1 [facility] Protein [Mass/Vol] 7.8 g/dL 6.4-8.2 [facility] Sodium [Moles/Vol] 135 mmol/L 136-145 [facility] WBC (Bld) [#/Vol] 7.4 10*3/uL 4.4-11.0 [facility] Blood erythrocytes count (nu mber/volume)Ordered By: Viviana Mcgee on 03-25-2023 RBC (Bld) [#/Vol] 3.98 10*6/uL 4.2-5.4 [facility] Blood hemoglobin measurement (mass/volume)Ordered By: Viviana Mcgee on 03-25-2023 Hemoglobin (Bld) [Mass/Vol] 12.6 g/dL 12.0-15.0 [facility] Blood lymphocytes/100 leukoc ytesOrdered By: Viviana Mcgee on 03-25-2023 Lymphocytes/100 WBC (Bld) 20.6 % 19-41 [facility] Blood monocytes/100 leukocyt esOrdered By: Viviana Mcgee on 03-25-2023 Monocytes/100 WBC (Bld) 9.7 % 0-10 [facility] Blood platelet mean volumeOr dered By: Viviana Mcgee on 03-25-2023 Platelet mean volume (Bld) [Entitic vol] 9.1 fL 6.2-12.0 [facility] Determination of erythrocyte mean corpuscular volume (MCV)Ordered By: Viviana Mcgee on 03-25-2023 MCV (RBC) [Entitic vol] 97.5 fL 81-99 [facility] Hematocrit Auto (Bld) [Volum e fraction]Ordered By: Viviana Mcgee on 03-25-2023 Hematocrit (Bld) [Volume fraction] 38.8 % 37-47 [facility] - Chemistry and C hemistry - challengeOrdered By: Viviana Mcgee on 03-25-2023 ALP [Catalytic activity/Vol] 109 U/L 45-117 [facility] ALT [Catalytic activity/Vol] 16 U/L 13-56 [facility] CO2 [Moles/Vol] 23.0 mmol/L 21.0-32.0 [facility] Globulin (S) [Mass/Vol] 4.1 g/dL 2.2-4.2 [facility] Urea nitrogen/Creatinine [Mass ratio] 19.6 mg/mg 10-20 [facility] - Hematology and Cell countsOrdered By: Viviana Mcgee on 03-25-2023 Erythrocyte distribution width (RBC) [Entitic vol] 44.2 fL 35.1-43.9 [facility] Erythrocyte distribution width (RBC) [Ratio] 12.2 % 11.6-14.6 [facility] Immature granulocytes/100 WBC (Bld) 0.500 % 0.0-0.9 [facility] Comment on above: IG% - Immature Granu locytes (promyelocytes, myelocytes and metamyelocytes) > 1% indicates that a LEFT SHIFT is Present. MCH (RBC) [Entitic mass] 31.7 pg 27.0-32.0 [facility] Nucleated RBC/100 WBC (Bld) [Ratio] 0 % 0-5 [facility] MCHC Auto (RBC) [Mass/Vol]Or dered By: Viviana Mcgee on 03-25-2023 MCHC (RBC) [Mass/Vol] 32.5 g/dL 32-36 [facility] No Panel InformationOrdered By: Viviana Mcgee on 03-25-2023 Estimated GFR (MDRD) Amer 68 mL/min >60 [facility] Comment on above: GFR Calc Estimated GFR (MDRD) Non-Af Amer 56 mL/min >60 [facility] Comment on above: Non- GFR Calc Platelets bldOrdered By: Reza boothe Everardo on 03-25-2023 Platelets (Bld) [#/Vol] 337 10*3/uL 150-450 [facility] Serum or plasma albumin fiona urement (mass/volume)Ordered By: Viviana Mcgee on 03-25-2023 Albumin [Mass/Vol] 3.7 g/dL 3.2-5.0 [facility] Serum or plasma albumin/glob ulin mass ratioOrdered By: Viviana Mcgee on 03-25-2023 Albumin/Globulin [Mass ratio] 0.9 {ratio} 0.9-2.4 [facility] Serum or plasma calcium fiona urement (mass/volume)Ordered By: Viviana Mcgee on 03-25-2023 Calcium [Mass/Vol] 9.1 mg/dL 8.5-10.1 [facility] Serum or plasma creatinine m easurement (mass/volume)Ordered By: Viviana Mcgee on 03-25-2023 Creatinine [Mass/Vol] 1.02 mg/dL 0.55-1.02 [facility] Comment on above: The validity of the calculated GFR & GFRAA in patients over 70 years has not been determined. Clinical correlation is essential. Serum or plasma urea nitroge n measurement (mass/volume)Ordered By: Viviana Mcgee on 03-25-2023 Urea nitrogen [Mass/Vol] 20 mg/dL 7-18 [facility] Thin prep Papanicolaou smear with manual screeningOrdered By: Viviana Mcgee on 03-25-2023 Thin prep Papanicolaou smear with manual screening 10 U/L 15-37 [facility] Thin prep Papanicolaou smear with manual screening 5 5-15 [facility] Absolute lymphocyte countOrd ered By: Juan Carlos Living on 02-25-2023 Lymphocytes Auto (Unsp spec) [#/Vol] 1.49 10*3/uL 0.83-4.51 [facility] Basophil percentageOrdered B y: Juan Carlos Living on 02-25-2023 Basophils/100 WBC (Bld) 1.0 % 0-1 [facility] Bilirubin [Mass/Vol] 0.30 mg/dL 0.20-1.00 [facility] Comment on above: For patients on eltr ombopag therapy, use of Dimension [place] TBIL is not recommended. Chloride [Moles/Vol] 109 mmol/L 98-107 [facility] Eosinophils/100 WBC (Bld) 3.1 % 0-5 [facility] Glucose [Mass/Vol] 165 mg/dL 74-106 [facility] Comment on above: Fasting Glucose resu lt greater than or equal to 126 mg/dL suggests DIABETES MELLITUS per A.D.A. criteria. Neutrophils (Bld) [#/Vol] 2.8 10*3/uL 2.0-7.7 [facility] Neutrophils/100 WBC (Bld) 54.5 % 47-70 [facility] Potassium [Moles/Vol] 4.2 mmol/L 3.5-5.1 [facility] Protein [Mass/Vol] 6.9 g/dL 6.4-8.2 [facility] Sodium [Moles/Vol] 139 mmol/L 136-145 [facility] WBC (Bld) [#/Vol] 5.1 10*3/uL 4.4-11.0 [facility] Blood erythrocytes count (nu mber/volume)Ordered By: [facility] on 02-25-2023 RBC (Bld) [#/Vol] 3.70 10*6/uL 4.2-5.4 [facility] Blood hemoglobin measurement (mass/volume)Ordered By: [facility] on 02-25-2023 Hemoglobin (Bld) [Mass/Vol] 12.1 g/dL 12.0-15.0 [facility] Blood lymphocytes/100 leukoc ytesOrdered By: [facility] on 02-25-2023 Lymphocytes/100 WBC (Bld) 29.2 % 19-41 [facility] Blood monocytes/100 leukocyt esOrdered By: [facility] on 02-25-2023 Monocytes/100 WBC (Bld) 11.8 % 0-10 [facility] Blood platelet mean volumeOr dered By: [facility] on 02-25-2023 Platelet mean volume (Bld) [Entitic vol] 9.3 fL 6.2-12.0 [facility] Determination of erythrocyte mean corpuscular volume (MCV)Ordered By: [place] [facility] on 02-25-2023 MCV (RBC) [Entitic vol] 97.8 fL 81-99 [facility] Hematocrit Auto (Bld) [Volum e fraction]Ordered By: [facility] on 02-25-2023 Hematocrit (Bld) [Volume fraction] 36.2 % 37-47 [facility] - Chemistry and C hemistry - challengeOrdered By: [facility] on 02-25-2023 ALP [Catalytic activity/Vol] 102 U/L 45-117 [facility] ALT [Catalytic activity/Vol] 15 U/L 13-56 [facility] CO2 [Moles/Vol] 26.0 mmol/L 21.0-32.0 [facility] Globulin (S) [Mass/Vol] 3.8 g/dL 2.2-4.2 [facility] Urea nitrogen/Creatinine [Mass ratio] 14.4 mg/mg 10-20 [facility] - Hematology and Cell countsOrdered By: [facility] on 02-25-2023 Erythrocyte distribution width (RBC) [Entitic vol] 45.0 fL 35.1-43.9 [facility] Erythrocyte distribution width (RBC) [Ratio] 12.5 % 11.6-14.6 [facility] Immature granulocytes/100 WBC (Bld) 0.400 % 0.0-0.9 [facility] Comment on above: IG% - Immature Granu locytes (promyelocytes, myelocytes and metamyelocytes) > 1% indicates that a LEFT SHIFT is Present. MCH (RBC) [Entitic mass] 32.7 pg 27.0-32.0 [facility] Nucleated RBC/100 WBC (Bld) [Ratio] 0 % 0-5 [facility] MCHC Auto (RBC) [Mass/Vol]Or dered By: [place] [facility] on 02-25-2023 MCHC (RBC) [Mass/Vol] 33.4 g/dL 32-36 [facility] No Panel InformationOrdered By: [facility] on 02-25-2023 Estimated GFR (MDRD) Amer 78 mL/min >60 [facility] Comment on above: GFR Calc Estimated GFR (MDRD) Non-Af Amer 64 mL/min >60 [facility] Comment on above: Non- GFR Calc Platelets bldOrdered By: Damian ribera Living on 02-25-2023 Platelets (Bld) [#/Vol] 281 10*3/uL 150-450 [facility] Serum or plasma albumin fiona urement (mass/volume)Ordered By: [facility] on 02-25-2023 Albumin [Mass/Vol] 3.1 g/dL 3.2-5.0 [facility] Serum or plasma albumin/glob ulin mass ratioOrdered By: [facility] on 02-25-2023 Albumin/Globulin [Mass ratio] 0.8 {ratio} 0.9-2.4 [facility] Serum or plasma calcium fiona urement (mass/volume)Ordered By: [facility] on 02-25-2023 Calcium [Mass/Vol] 8.4 mg/dL 8.5-10.1 [facility] Serum or plasma creatinine m easurement (mass/volume)Ordered By: [facility] on 02-25-2023 Creatinine [Mass/Vol] 0.90 mg/dL 0.55-1.02 [facility] Comment on above: The validity of the calculated GFR & GFRAA in patients over 70 years has not been determined. Clinical correlation is essential. Serum or plasma urea nitroge n measurement (mass/volume)Ordered By: [facility] on 02-25-2023 Urea nitrogen [Mass/Vol] 13 mg/dL 7-18 [facility] Thin prep Papanicolaou smear with manual screeningOrdered By: [facility] on 02-25-2023 Thin prep Papanicolaou smear with manual screening 9 U/L 15-37 [facility] Thin prep Papanicolaou smear with manual screening 4 5-15 [facility] Absolute lymphocyte countOrd ered By: Viviana Mcgee on 01-28-2023 Lymphocytes Auto (Unsp spec) [#/Vol] 1.28 10*3/uL 0.83-4.51 [facility] Basophil percentageOrdered B y: Viviana Mcgee on 01-28-2023 Basophils/100 WBC (Bld) 0.9 % 0-1 [facility] Bilirubin [Mass/Vol] 0.30 mg/dL 0.20-1.00 [facility] Comment on above: For patients on eltr ombopag therapy, use of Dimension [place] TBIL is not recommended. Chloride [Moles/Vol] 109 mmol/L 98-107 [facility] Eosinophils/100 WBC (Bld) 2.4 % 0-5 [facility] Glucose [Mass/Vol] 152 mg/dL 74-106 [facility] Comment on above: Fasting Glucose resu lt greater than or equal to 126 mg/dL suggests DIABETES MELLITUS per A.D.A. criteria. Neutrophils (Bld) [#/Vol] 3.5 10*3/uL 2.0-7.7 [facility] Neutrophils/100 WBC (Bld) 62.7 % 47-70 [facility] Potassium [Moles/Vol] 4.1 mmol/L 3.5-5.1 [facility] Protein [Mass/Vol] 7.2 g/dL 6.4-8.2 [facility] Sodium [Moles/Vol] 139 mmol/L 136-145 [facility] WBC (Bld) [#/Vol] 5.5 10*3/uL 4.4-11.0 [facility] Blood erythrocytes count (nu mber/volume)Ordered By: Viviana Mcgee on 01-28-2023 RBC (Bld) [#/Vol] 3.75 10*6/uL 4.2-5.4 [facility] Blood hemoglobin measurement (mass/volume)Ordered By: Viviana Mcgee on 01-28-2023 Hemoglobin (Bld) [Mass/Vol] 12.1 g/dL 12.0-15.0 [facility] Blood lymphocytes/100 leukoc ytesOrdered By: Viviana Mcgee on 01-28-2023 Lymphocytes/100 WBC (Bld) 23.2 % 19-41 [facility] Blood monocytes/100 leukocyt esOrdered By: Viviana Mcgee on 01-28-2023 Monocytes/100 WBC (Bld) 10.3 % 0-10 [facility] Blood platelet mean volumeOr dered By: Viviana Mcgee on 01-28-2023 Platelet mean volume (Bld) [Entitic vol] 9.3 fL 6.2-12.0 [facility] Determination of erythrocyte mean corpuscular volume (MCV)Ordered By: Viviana Mcgee on 01-28-2023 MCV (RBC) [Entitic vol] 100.5 fL 81-99 [facility] Hematocrit Auto (Bld) [Volum e fraction]Ordered By: Viviana Mcgee on 01-28-2023 Hematocrit (Bld) [Volume fraction] 37.7 % 37-47 [facility] - Chemistry and C hemistry - challengeOrdered By: lawsonsanta fepapa Mcgee on 01-28-2023 ALP [Catalytic activity/Vol] 107 U/L 45-117 [facility] ALT [Catalytic activity/Vol] 17 U/L 13-56 [facility] CO2 [Moles/Vol] 26.0 mmol/L 21.0-32.0 [facility] Globulin (S) [Mass/Vol] 3.8 g/dL 2.2-4.2 [facility] Urea nitrogen/Creatinine [Mass ratio] 13.7 mg/mg 10-20 [facility] - Hematology and Cell countsOrdered By: Reynaldosanta fepapa Mcgee on 01-28-2023 Erythrocyte distribution width (RBC) [Entitic vol] 45.0 fL 35.1-43.9 [facility] Erythrocyte distribution width (RBC) [Ratio] 12.2 % 11.6-14.6 [facility] Immature granulocytes/100 WBC (Bld) 0.500 % 0.0-0.9 [facility] Comment on above: IG% - Immature Granu locytes (promyelocytes, myelocytes and metamyelocytes) > 1% indicates that a LEFT SHIFT is Present. MCH (RBC) [Entitic mass] 32.3 pg 27.0-32.0 [facility] Nucleated RBC/100 WBC (Bld) [Ratio] 0 % 0-5 [facility] MCHC Auto (RBC) [Mass/Vol]Or dered By: Viviana Mcgee on 01-28-2023 MCHC (RBC) [Mass/Vol] 32.1 g/dL 32-36 [facility] No Panel InformationOrdered By: Viviana Mcgee on 01-28-2023 Estimated GFR (MDRD) Amer 74 mL/min >60 [facility] Comment on above: GFR Calc Estimated GFR (MDRD) Non-Af Amer 61 mL/min >60 [facility] Comment on above: Non- GFR Calc Platelets bldOrdered By: Reza Mcgee on 01-28-2023 Platelets (Bld) [#/Vol] 292 10*3/uL 150-450 [facility] Serum or plasma albumin fiona urement (mass/volume)Ordered By: Viviana Mcgee on 01-28-2023 Albumin [Mass/Vol] 3.4 g/dL 3.2-5.0 [facility] Serum or plasma albumin/glob ulin mass ratioOrdered By: Viviana Mcgee on 01-28-2023 Albumin/Globulin [Mass ratio] 0.9 {ratio} 0.9-2.4 [facility] Serum or plasma calcium fiona urement (mass/volume)Ordered By: Viviana Mcgee on 01-28-2023 Calcium [Mass/Vol] 9.0 mg/dL 8.5-10.1 [facility] Serum or plasma creatinine m easurement (mass/volume)Ordered By: Viviana Mcgee on 01-28-2023 Creatinine [Mass/Vol] 0.95 mg/dL 0.55-1.02 [facility] Comment on above: The validity of the calculated GFR & GFRAA in patients over 70 years has not been determined. Clinical correlation is essential. Serum or plasma urea nitroge n measurement (mass/volume)Ordered By: Viviana Mcgee on 01-28-2023 Urea nitrogen [Mass/Vol] 13 mg/dL 7-18 [facility] Thin prep Papanicolaou smear with manual screeningOrdered By: Viviana Mcgee on 01-28-2023 Thin prep Papanicolaou smear with manual screening 10 U/L 15-37 [facility] Thin prep Papanicolaou smear with manual screening 4 5-15 [facility] No Panel InformationOrdered By: Zachary Cruz on 01-26-2023 Estimated GFR (MDRD) Amer 59 mL/min >60 [facility] Comment on above: GFR Calc Estimated GFR (MDRD) Non-Af Amer 48 mL/min >60 [facility] Comment on above: Non- GFR Calc Serum or plasma creatinine m easurement (mass/volume)Ordered By: Zachary Cruz on 01-26-2023 Creatinine [Mass/Vol] 1.16 mg/dL 0.55-1.02 [facility] Comment on above: The validity of the calculated GFR & GFRAA in patients over 70 years has not been determined. Clinical correlation is essential. Absolute lymphocyte countOrd ered By: Alex Weir on 12-24-2022 Lymphocytes Auto (Unsp spec) [#/Vol] 1.57 10*3/uL 0.83-4.51 [facility] Basophil percentageOrdered B y: Alex Weir on 12-24-2022 Basophils/100 WBC (Bld) 1.0 % 0-1 [facility] Bilirubin [Mass/Vol] 0.30 mg/dL 0.20-1.00 [facility] Comment on above: For patients on eltr ombopag therapy, use of Dimension [place] TBIL is not recommended. Chloride [Moles/Vol] 108 mmol/L 98-107 [facility] Eosinophils/100 WBC (Bld) 2.7 % 0-5 [facility] Glucose [Mass/Vol] 133 mg/dL 74-106 [facility] Comment on above: Fasting Glucose resu lt greater than or equal to 126 mg/dL suggests DIABETES MELLITUS per A.D.A. criteria. Neutrophils (Bld) [#/Vol] 3.9 10*3/uL 2.0-7.7 [facility] Neutrophils/100 WBC (Bld) 61.5 % 47-70 [facility] Potassium [Moles/Vol] 4.1 mmol/L 3.5-5.1 [facility] Protein [Mass/Vol] 7.6 g/dL 6.4-8.2 [facility] Sodium [Moles/Vol] 140 mmol/L 136-145 [facility] WBC (Bld) [#/Vol] 6.3 10*3/uL 4.4-11.0 [facility] Blood erythrocytes count (nu mber/volume)Ordered By: Alex Weir on 12-24-2022 RBC (Bld) [#/Vol] 3.99 10*6/uL 4.2-5.4 [facility] Blood hemoglobin measurement (mass/volume)Ordered By: Alex Weir on 12-24-2022 Hemoglobin (Bld) [Mass/Vol] 12.8 g/dL 12.0-15.0 [facility] Blood lymphocytes/100 leukoc ytesOrdered By: Alex Weir on 12-24-2022 Lymphocytes/100 WBC (Bld) 25.1 % 19-41 [facility] Blood monocytes/100 leukocyt esOrdered By: Alex Weir on 12-24-2022 Monocytes/100 WBC (Bld) 9.4 % 0-10 [facility] Blood platelet mean volumeOr dered By: Alex Weir on 12-24-2022 Platelet mean volume (Bld) [Entitic vol] 9.4 fL 6.2-12.0 [facility] Determination of erythrocyte mean corpuscular volume (MCV)Ordered By: Alex Weir on 12-24-2022 MCV (RBC) [Entitic vol] 101.0 fL 81-99 [facility] Hematocrit Auto (Bld) [Volum e fraction]Ordered By: Alex Weir on 12-24-2022 Hematocrit (Bld) [Volume fraction] 40.3 % 37-47 [facility] - Chemistry and C hemistry - challengeOrdered By: Alex Weir on 12-24-2022 ALP [Catalytic activity/Vol] 108 U/L 45-117 [facility] ALT [Catalytic activity/Vol] 16 U/L 13-56 [facility] CO2 [Moles/Vol] 27.0 mmol/L 21.0-32.0 [facility] Globulin (S) [Mass/Vol] 3.8 g/dL 2.2-4.2 [facility] Urea nitrogen/Creatinine [Mass ratio] 16.5 mg/mg 10-20 [facility] - Hematology and Cell countsOrdered By: Alex Weir on 12-24-2022 Erythrocyte distribution width (RBC) [Entitic vol] 46.8 fL 35.1-43.9 [facility] Erythrocyte distribution width (RBC) [Ratio] 12.6 % 11.6-14.6 [facility] Immature granulocytes/100 WBC (Bld) 0.300 % 0.0-0.9 [facility] Comment on above: IG% - Immature Granu locytes (promyelocytes, myelocytes and metamyelocytes) > 1% indicates that a LEFT SHIFT is Present. MCH (RBC) [Entitic mass] 32.1 pg 27.0-32.0 [facility] Nucleated RBC/100 WBC (Bld) [Ratio] 0 % 0-5 [facility] MCHC Auto (RBC) [Mass/Vol]Or dered By: Alex Weir on 12-24-2022 MCHC (RBC) [Mass/Vol] 31.8 g/dL 32-36 [facility] No Panel InformationOrdered By: Alex Weir on 12-24-2022 Estimated GFR (MDRD) Amer 78 mL/min >60 [facility] Comment on above: GFR Calc Estimated GFR (MDRD) Non-Af Amer 64 mL/min >60 [facility] Comment on above: Non- GFR Calc Platelets bldOrdered By: Kunal Weir on 12-24-2022 Platelets (Bld) [#/Vol] 308 10*3/uL 150-450 [facility] Serum or plasma albumin fiona urement (mass/volume)Ordered By: Alex Weir on 12-24-2022 Albumin [Mass/Vol] 3.8 g/dL 3.2-5.0 [facility] Serum or plasma albumin/glob ulin mass ratioOrdered By: Alex Weir on 12-24-2022 Albumin/Globulin [Mass ratio] 1.0 {ratio} 0.9-2.4 [facility] Serum or plasma calcium fiona urement (mass/volume)Ordered By: Alex Weir on 12-24-2022 Calcium [Mass/Vol] 9.0 mg/dL 8.5-10.1 [facility] Serum or plasma creatinine m easurement (mass/volume)Ordered By: Alex Weir on 12-24-2022 Creatinine [Mass/Vol] 0.91 mg/dL 0.55-1.02 [facility] Comment on above: The validity of the calculated GFR & GFRAA in patients over 70 years has not been determined. Clinical correlation is essential. Serum or plasma urea nitroge n measurement (mass/volume)Ordered By: Alex Weir on 12-24-2022 Urea nitrogen [Mass/Vol] 15 mg/dL 7-18 [facility] Thin prep Papanicolaou smear with manual screeningOrdered By: Alex Weir on 12-24-2022 Thin prep Papanicolaou smear with manual screening 11 U/L 15-37 [facility] Thin prep Papanicolaou smear with manual screening 5 5-15 [facility] Absolute lymphocyte countOrd ered By: Alex Weir on 11-26-2022 Lymphocytes Auto (Unsp spec) [#/Vol] 1.32 10*3/uL 0.83-4.51 [facility] Basophil percentageOrdered B y: Alex Weir on 11-26-2022 Basophils/100 WBC (Bld) 1.6 % 0-1 [facility] Bilirubin [Mass/Vol] 0.30 mg/dL 0.20-1.00 [facility] Comment on above: For patients on eltr ombopag therapy, use of Dimension [place] TBIL is not recommended. Chloride [Moles/Vol] 109 mmol/L 98-107 [facility] Eosinophils/100 WBC (Bld) 4.9 % 0-5 [facility] Glucose [Mass/Vol] 132 mg/dL 74-106 [facility] Comment on above: Fasting Glucose resu lt greater than or equal to 126 mg/dL suggests DIABETES MELLITUS per A.D.A. criteria. Neutrophils (Bld) [#/Vol] 2.7 10*3/uL 2.0-7.7 [facility] Neutrophils/100 WBC (Bld) 55.1 % 47-70 [facility] Potassium [Moles/Vol] 4.1 mmol/L 3.5-5.1 [facility] Protein [Mass/Vol] 6.9 g/dL 6.4-8.2 [facility] Sodium [Moles/Vol] 139 mmol/L 136-145 [facility] WBC (Bld) [#/Vol] 4.9 10*3/uL 4.4-11.0 [facility] Blood erythrocytes count (nu mber/volume)Ordered By: Alex Weir on 11-26-2022 RBC (Bld) [#/Vol] 3.71 10*6/uL 4.2-5.4 [facility] Blood hemoglobin measurement (mass/volume)Ordered By: Alex Weir on 11-26-2022 Hemoglobin (Bld) [Mass/Vol] 12.1 g/dL 12.0-15.0 [facility] Blood lymphocytes/100 leukoc ytesOrdered By: Alex Weir on 11-26-2022 Lymphocytes/100 WBC (Bld) 27.1 % 19-41 [facility] Blood monocytes/100 leukocyt esOrdered By: Alex Weir on 11-26-2022 Monocytes/100 WBC (Bld) 11.1 % 0-10 [facility] Blood platelet mean volumeOr dered By: Alex Weir on 11-26-2022 Platelet mean volume (Bld) [Entitic vol] 9.2 fL 6.2-12.0 [facility] Determination of erythrocyte mean corpuscular volume (MCV)Ordered By: Alex Weir on 11-26-2022 MCV (RBC) [Entitic vol] 96.2 fL 81-99 [facility] Hematocrit Auto (Bld) [Volum e fraction]Ordered By: Alex Weir on 11-26-2022 Hematocrit (Bld) [Volume fraction] 35.7 % 37-47 [facility] - Chemistry and C hemistry - challengeOrdered By: Alex Weir on 11-26-2022 ALP [Catalytic activity/Vol] 104 U/L 45-117 [facility] ALT [Catalytic activity/Vol] 16 U/L 13-56 [facility] CO2 [Moles/Vol] 23.0 mmol/L 21.0-32.0 [facility] Globulin (S) [Mass/Vol] 3.5 g/dL 2.2-4.2 [facility] Urea nitrogen/Creatinine [Mass ratio] 18.3 mg/mg 10-20 [facility] - Hematology and Cell countsOrdered By: Alex Weir on 11-26-2022 Erythrocyte distribution width (RBC) [Entitic vol] 44.2 fL 35.1-43.9 [facility] Erythrocyte distribution width (RBC) [Ratio] 12.6 % 11.6-14.6 [facility] Immature granulocytes/100 WBC (Bld) 0.200 % 0.0-0.9 [facility] Comment on above: IG% - Immature Granu locytes (promyelocytes, myelocytes and metamyelocytes) > 1% indicates that a LEFT SHIFT is Present. MCH (RBC) [Entitic mass] 32.6 pg 27.0-32.0 [facility] Nucleated RBC/100 WBC (Bld) [Ratio] 0 % 0-5 [facility] MCHC Auto (RBC) [Mass/Vol]Or dered By: Alex Weir on 11-26-2022 MCHC (RBC) [Mass/Vol] 33.9 g/dL 32-36 [facility] No Panel InformationOrdered By: Alex Weir on 11-26-2022 Estimated GFR (MDRD) Amer 81 mL/min >60 [facility] Comment on above: GFR Calc Estimated GFR (MDRD) Non-Af Amer 67 mL/min >60 [facility] Comment on above: Non- GFR Calc Platelets bldOrdered By: Kunal Weir on 11-26-2022 Platelets (Bld) [#/Vol] 264 10*3/uL 150-450 [facility] Serum or plasma albumin fiona urement (mass/volume)Ordered By: Alex Weir on 11-26-2022 Albumin [Mass/Vol] 3.4 g/dL 3.2-5.0 [facility] Serum or plasma albumin/glob ulin mass ratioOrdered By: Alex Weir on 11-26-2022 Albumin/Globulin [Mass ratio] 1.0 {ratio} 0.9-2.4 [facility] Serum or plasma calcium fiona urement (mass/volume)Ordered By: Alex Weir on 11-26-2022 Calcium [Mass/Vol] 8.8 mg/dL 8.5-10.1 [facility] Serum or plasma creatinine m easurement (mass/volume)Ordered By: Alex Weir on 11-26-2022 Creatinine [Mass/Vol] 0.88 mg/dL 0.55-1.02 [facility] Comment on above: The validity of the calculated GFR & GFRAA in patients over 70 years has not been determined. Clinical correlation is essential. Serum or plasma urea nitroge n measurement (mass/volume)Ordered By: Alex Weir on 11-26-2022 Urea nitrogen [Mass/Vol] 16 mg/dL 7-18 [facility] Thin prep Papanicolaou smear with manual screeningOrdered By: Alex Weir on 11-26-2022 Thin prep Papanicolaou smear with manual screening 11 U/L 15-37 [facility] Thin prep Papanicolaou smear with manual screening 7 5-15 [facility] Absolute lymphocyte countOrd ered By: Viviana Mcgee on 11-09-2022 Lymphocytes Auto (Unsp spec) [#/Vol] 1.33 10*3/uL 0.83-4.51 [facility] Basophil percentageOrdered B y: Viviana Mcgee on 11-09-2022 Basophils/100 WBC (Bld) 1.1 % 0-1 [facility] Bilirubin [Mass/Vol] 0.30 mg/dL 0.20-1.00 [facility] Comment on above: For patients on eltr ombopag therapy, use of Dimension [place] TBIL is not recommended. Chloride [Moles/Vol] 111 mmol/L 98-107 [facility] Eosinophils/100 WBC (Bld) 5.1 % 0-5 [facility] Glucose [Mass/Vol] 135 mg/dL 74-106 [facility] Comment on above: Fasting Glucose resu lt greater than or equal to 126 mg/dL suggests DIABETES MELLITUS per A.D.A. criteria. Neutrophils (Bld) [#/Vol] 2.5 10*3/uL 2.0-7.7 [facility] Neutrophils/100 WBC (Bld) 52.7 % 47-70 [facility] Potassium [Moles/Vol] 4.2 mmol/L 3.5-5.1 [facility] Protein [Mass/Vol] 6.8 g/dL 6.4-8.2 [facility] Sodium [Moles/Vol] 141 mmol/L 136-145 [facility] WBC (Bld) [#/Vol] 4.7 10*3/uL 4.4-11.0 [facility] Blood erythrocytes count (nu mber/volume)Ordered By: Viviana Mcgee on 11-09-2022 RBC (Bld) [#/Vol] 3.77 10*6/uL 4.2-5.4 [facility] Blood hemoglobin measurement (mass/volume)Ordered By: Viviana Mcgee on 11-09-2022 Hemoglobin (Bld) [Mass/Vol] 11.9 g/dL 12.0-15.0 [facility] Blood lymphocytes/100 leukoc ytesOrdered By: Viviana Mcgee on 11-09-2022 Lymphocytes/100 WBC (Bld) 28.2 % 19-41 [facility] Blood monocytes/100 leukocyt esOrdered By: levy Mcgee on 11-09-2022 Monocytes/100 WBC (Bld) 12.7 % 0-10 [facility] Blood platelet mean volumeOr dered By: levy Mcgee on 11-09-2022 Platelet mean volume (Bld) [Entitic vol] 9.0 fL 6.2-12.0 [facility] Determination of erythrocyte mean corpuscular volume (MCV)Ordered By: Viviana Mcgee on 11-09-2022 MCV (RBC) [Entitic vol] 97.3 fL 81-99 [facility] Hematocrit Auto (Bld) [Volum e fraction]Ordered By: Viviana Mcgee on 11-09-2022 Hematocrit (Bld) [Volume fraction] 36.7 % 37-47 [facility] Laboratory - Chemistry and C hemistry - challengeOrdered By: Viviana Mcgee on 11-09-2022 ALP [Catalytic activity/Vol] 103 U/L 45-117 [facility] ALT [Catalytic activity/Vol] 15 U/L 13-56 [facility] CO2 [Moles/Vol] 24.0 mmol/L 21.0-32.0 [facility] Globulin (S) [Mass/Vol] 3.6 g/dL 2.2-4.2 [facility] Urea nitrogen/Creatinine [Mass ratio] 15.7 mg/mg 10-20 [facility] Laboratory - Hematology and Cell countsOrdered By: Viviana Mcgee on 11-09-2022 Erythrocyte distribution width (RBC) [Entitic vol] 45.0 fL 35.1-43.9 [facility] Erythrocyte distribution width (RBC) [Ratio] 12.6 % 11.6-14.6 [facility] Immature granulocytes/100 WBC (Bld) 0.200 % 0.0-0.9 [facility] Comment on above: IG% - Immature Granu locytes (promyelocytes, myelocytes and metamyelocytes) > 1% indicates that a LEFT SHIFT is Present. MCH (RBC) [Entitic mass] 31.6 pg 27.0-32.0 [facility] Nucleated RBC/100 WBC (Bld) [Ratio] 0 % 0-5 [facility] MCHC Auto (RBC) [Mass/Vol]Or dered By: Viviana Mcgee on 11-09-2022 MCHC (RBC) [Mass/Vol] 32.4 g/dL 32-36 [facility] No Panel InformationOrdered By: Viviana Mcgee on 11-09-2022 Estimated GFR (MDRD) Amer 79 mL/min >60 [facility] Comment on above: GFR Calc Estimated GFR (MDRD) Non-Af Amer 66 mL/min >60 [facility] Comment on above: Non- GFR Calc Platelets bldOrdered By: Reza Mcgee on 11-09-2022 Platelets (Bld) [#/Vol] 256 10*3/uL 150-450 [facility] Serum or plasma albumin fiona urement (mass/volume)Ordered By: Viviana Mcgee on 11-09-2022 Albumin [Mass/Vol] 3.2 g/dL 3.2-5.0 [facility] Serum or plasma albumin/glob ulin mass ratioOrdered By: Viviana Mcgee on 11-09-2022 Albumin/Globulin [Mass ratio] 0.9 {ratio} 0.9-2.4 [facility] Serum or plasma calcium fiona urement (mass/volume)Ordered By: Viviana Mcgee on 11-09-2022 Calcium [Mass/Vol] 8.7 mg/dL 8.5-10.1 [facility] Serum or plasma creatinine m easurement (mass/volume)Ordered By: Viviana Mcgee on 11-09-2022 Creatinine [Mass/Vol] 0.89 mg/dL 0.55-1.02 [facility] Comment on above: The validity of the calculated GFR & GFRAA in patients over 70 years has not been determined. Clinical correlation is essential. Serum or plasma urea nitroge n measurement (mass/volume)Ordered By: Viviana Mcgee on 11-09-2022 Urea nitrogen [Mass/Vol] 14 mg/dL - [facility] Thin prep Papanicolaou smear with manual screeningOrdered By: Viviana Mcgee on 11-09-2022 Thin prep Papanicolaou smear with manual screening 12 U/L 15- [facility] Thin prep Papanicolaou smear with manual screening 6 5-15 [facility] Absolute lymphocyte countOrd ered By: Alex Weir on 10-29-2022 Lymphocytes Auto (Unsp spec) [#/Vol] 1.55 10*3/uL 0.83-4.51 [facility] Basophil percentageOrdered B y: Alex Weir on 10-29-2022 Basophils/100 WBC (Bld) 1.3 % 0-1 [facility] Bilirubin [Mass/Vol] 0.30 mg/dL 0.20-1.00 [facility] Comment on above: For patients on eltr ombopag therapy, use of Dimension [place] TBIL is not recommended. Chloride [Moles/Vol] 107 mmol/L 98-107 [facility] Eosinophils/100 WBC (Bld) 4.6 % 0-5 [facility] Glucose [Mass/Vol] 112 mg/dL 74-106 [facility] Comment on above: Fasting Glucose resu lt from 100 to 125 mg/dL suggests IMPAIRED HOMEOSTASIS per A.D.A. criteria. Neutrophils (Bld) [#/Vol] 2.5 10*3/uL 2.0-7.7 [facility] Neutrophils/100 WBC (Bld) 51.6 % 47-70 [facility] Potassium [Moles/Vol] 4.3 mmol/L 3.5-5.1 [facility] Protein [Mass/Vol] 7.7 g/dL 6.4-8.2 [facility] Sodium [Moles/Vol] 138 mmol/L 136-145 [facility] WBC (Bld) [#/Vol] 4.8 10*3/uL 4.4-11.0 [facility] Blood erythrocytes count (nu mber/volume)Ordered By: Alex Weir on 10-29-2022 RBC (Bld) [#/Vol] 4.00 10*6/uL 4.2-5.4 [facility] Blood hemoglobin measurement (mass/volume)Ordered By: Alex Weir on 10-29-2022 Hemoglobin (Bld) [Mass/Vol] 13.2 g/dL 12.0-15.0 [facility] Blood lymphocytes/100 leukoc ytesOrdered By: Alex Weir on 10-29-2022 Lymphocytes/100 WBC (Bld) 32.6 % 19-41 [facility] Blood monocytes/100 leukocyt esOrdered By: Alex Weir on 10-29-2022 Monocytes/100 WBC (Bld) 9.7 % 0-10 [facility] Blood platelet mean volumeOr dered By: Alex Weir on 10-29-2022 Platelet mean volume (Bld) [Entitic vol] 9.1 fL 6.2-12.0 [facility] Determination of erythrocyte mean corpuscular volume (MCV)Ordered By: Alex Weir on 10-29-2022 MCV (RBC) [Entitic vol] 97.5 fL 81-99 [facility] Hematocrit Auto (Bld) [Volum e fraction]Ordered By: Alex Weir on 10-29-2022 Hematocrit (Bld) [Volume fraction] 39.0 % 37-47 [facility] Laboratory - Chemistry and C hemistry - challengeOrdered By: Alex Weir on 10-29-2022 ALP [Catalytic activity/Vol] 109 U/L 45-117 [facility] ALT [Catalytic activity/Vol] 18 U/L 13-56 [facility] CO2 [Moles/Vol] 26.0 mmol/L 21.0-32.0 [facility] Globulin (S) [Mass/Vol] 3.9 g/dL 2.2-4.2 [facility] Urea nitrogen/Creatinine [Mass ratio] 18.0 mg/mg 10-20 [facility] - Hematology and Cell countsOrdered By: Alex Weir on 10-29-2022 Erythrocyte distribution width (RBC) [Entitic vol] 45.5 fL 35.1-43.9 [facility] Erythrocyte distribution width (RBC) [Ratio] 12.7 % 11.6-14.6 [facility] Immature granulocytes/100 WBC (Bld) 0.200 % 0.0-0.9 [facility] Comment on above: IG% - Immature Granu locytes (promyelocytes, myelocytes and metamyelocytes) > 1% indicates that a LEFT SHIFT is Present. MCH (RBC) [Entitic mass] 33.0 pg 27.0-32.0 [facility] Nucleated RBC/100 WBC (Bld) [Ratio] 0 % 0-5 [facility] MCHC Auto (RBC) [Mass/Vol]Or dered By: Alex Weir on 10-29-2022 MCHC (RBC) [Mass/Vol] 33.8 g/dL 32-36 [facility] No Panel InformationOrdered By: Alex Weir on 10-29-2022 Estimated GFR (MDRD) Amer 70 mL/min >60 [facility] Comment on above: GFR Calc Estimated GFR (MDRD) Non-Af Amer 58 mL/min >60 [facility] Comment on above: Non- GFR Calc Platelets bldOrdered By: Kunal Weir on 10-29-2022 Platelets (Bld) [#/Vol] 282 10*3/uL 150-450 [facility] Serum or plasma albumin fiona urement (mass/volume)Ordered By: Alex Weir on 10-29-2022 Albumin [Mass/Vol] 3.8 g/dL 3.2-5.0 [facility] Serum or plasma albumin/glob ulin mass ratioOrdered By: Alex Weir on 10-29-2022 Albumin/Globulin [Mass ratio] 1.0 {ratio} 0.9-2.4 [facility] Serum or plasma calcium fiona urement (mass/volume)Ordered By: Alex Weir on 10-29-2022 Calcium [Mass/Vol] 9.1 mg/dL 8.5-10.1 [facility] Serum or plasma creatinine m easurement (mass/volume)Ordered By: Alex Weir on 10-29-2022 Creatinine [Mass/Vol] 1.00 mg/dL 0.55-1.02 [facility] Comment on above: The validity of the calculated GFR & GFRAA in patients over 70 years has not been determined. Clinical correlation is essential. Serum or plasma urea nitroge n measurement (mass/volume)Ordered By: Alex Weir on 10-29-2022 Urea nitrogen [Mass/Vol] 18 mg/dL 7-18 [facility] Thin prep Papanicolaou smear with manual screeningOrdered By: Alex Weir on 10-29-2022 Thin prep Papanicolaou smear with manual screening 15 U/L 15-37 [facility] Thin prep Papanicolaou smear with manual screening 5 5-15 [facility] Absolute lymphocyte countOrd ered By: Alex Weir on 09-24-2022 Lymphocytes Auto (Unsp spec) [#/Vol] 1.68 10*3/uL 0.83-4.51 [facility] Basophil percentageOrdered B y: Alex Weir on 09-24-2022 Basophils/100 WBC (Bld) 0.6 % 0-1 [facility] Bilirubin [Mass/Vol] 0.30 mg/dL 0.20-1.00 [facility] Comment on above: For patients on eltr ombopag therapy, use of Dimension [place] TBIL is not recommended. Chloride [Moles/Vol] 110 mmol/L 98-107 [facility] Eosinophils/100 WBC (Bld) 3.3 % 0-5 [facility] Glucose [Mass/Vol] 124 mg/dL 74-106 [facility] Comment on above: Fasting Glucose resu lt from 100 to 125 mg/dL suggests IMPAIRED HOMEOSTASIS per A.D.A. criteria. Neutrophils (Bld) [#/Vol] 2.8 10*3/uL 2.0-7.7 [facility] Neutrophils/100 WBC (Bld) 51.1 % 47-70 [facility] Potassium [Moles/Vol] 4.4 mmol/L 3.5-5.1 [facility] Protein [Mass/Vol] 7.1 g/dL 6.4-8.2 [facility] Sodium [Moles/Vol] 139 mmol/L 136-145 [facility] WBC (Bld) [#/Vol] 5.4 10*3/uL 4.4-11.0 [facility] Blood erythrocytes count (nu mber/volume)Ordered By: Alex Weir on 09-24-2022 RBC (Bld) [#/Vol] 3.82 10*6/uL 4.2-5.4 [facility] Blood hemoglobin measurement (mass/volume)Ordered By: Alex Weir on 09-24-2022 Hemoglobin (Bld) [Mass/Vol] 12.1 g/dL 12.0-15.0 [facility] Blood lymphocytes/100 leukoc ytesOrdered By: Alex Weir on 09-24-2022 Lymphocytes/100 WBC (Bld) 31.2 % 19-41 [facility] Blood monocytes/100 leukocyt esOrdered By: Alex Weir on 09-24-2022 Monocytes/100 WBC (Bld) 13.4 % 0-10 [facility] Blood platelet mean volumeOr dered By: Alex Weir on 09-24-2022 Platelet mean volume (Bld) [Entitic vol] 8.9 fL 6.2-12.0 [facility] Determination of erythrocyte mean corpuscular volume (MCV)Ordered By: Alex Weir on 09-24-2022 MCV (RBC) [Entitic vol] 95.5 fL 81-99 [facility] Hematocrit Auto (Bld) [Volum e fraction]Ordered By: Alex Weir on 09-24-2022 Hematocrit (Bld) [Volume fraction] 36.5 % 37-47 [facility] Laboratory - Chemistry and C hemistry - challengeOrdered By: Alex Weir on 09-24-2022 ALP [Catalytic activity/Vol] 115 U/L 45-117 [facility] ALT [Catalytic activity/Vol] 20 U/L 13-56 [facility] CO2 [Moles/Vol] 23.0 mmol/L 21.0-32.0 [facility] Globulin (S) [Mass/Vol] 3.9 g/dL 2.2-4.2 [facility] Urea nitrogen/Creatinine [Mass ratio] 18.8 mg/mg 10-20 [facility] - Hematology and Cell countsOrdered By: Alex Weir on 09-24-2022 Erythrocyte distribution width (RBC) [Entitic vol] 45.3 fL 35.1-43.9 [facility] Erythrocyte distribution width (RBC) [Ratio] 13.0 % 11.6-14.6 [facility] Immature granulocytes/100 WBC (Bld) 0.400 % 0.0-0.9 [facility] Comment on above: IG% - Immature Granu locytes (promyelocytes, myelocytes and metamyelocytes) > 1% indicates that a LEFT SHIFT is Present. MCH (RBC) [Entitic mass] 31.7 pg 27.0-32.0 [facility] Nucleated RBC/100 WBC (Bld) [Ratio] 0 % 0-5 [facility] MCHC Auto (RBC) [Mass/Vol]Or dered By: Alex Weir on 09-24-2022 MCHC (RBC) [Mass/Vol] 33.2 g/dL 32-36 [facility] No Panel InformationOrdered By: Alex Weir on 09-24-2022 Estimated GFR (MDRD) Amer 84 mL/min >60 [facility] Comment on above: GFR Calc Estimated GFR (MDRD) Non-Af Amer 69 mL/min >60 [facility] Comment on above: Non- GFR Calc Thyroid Stimulating Hormone (TSH) 2.25 uIU/mL 0.358-3.74 [facility] Platelets bldOrdered By: Kunal Weir on 09-24-2022 Platelets (Bld) [#/Vol] 286 10*3/uL 150-450 [facility] Serum or plasma albumin fiona urement (mass/volume)Ordered By: Alex Weir on 09-24-2022 Albumin [Mass/Vol] 3.2 g/dL 3.2-5.0 [facility] Serum or plasma albumin/glob ulin mass ratioOrdered By: Alex Weir on 09-24-2022 Albumin/Globulin [Mass ratio] 0.8 {ratio} 0.9-2.4 [facility] Serum or plasma calcium fiona urement (mass/volume)Ordered By: Alex Weir on 09-24-2022 Calcium [Mass/Vol] 8.6 mg/dL 8.5-10.1 [facility] Serum or plasma creatinine m easurement (mass/volume)Ordered By: Alex Weir on 09-24-2022 Creatinine [Mass/Vol] 0.85 mg/dL 0.55-1.02 [facility] Comment on above: The validity of the calculated GFR & GFRAA in patients over 70 years has not been determined. Clinical correlation is essential. Serum or plasma urea nitroge n measurement (mass/volume)Ordered By: Alex Weir on 09-24-2022 Urea nitrogen [Mass/Vol] 16 mg/dL 7-18 [facility] Thin prep Papanicolaou smear with manual screeningOrdered By: Alex Weir on 09-24-2022 Thin prep Papanicolaou smear with manual screening 14 U/L 15-37 [facility] Thin prep Papanicolaou smear with manual screening 6 5-15 [facility] Absolute lymphocyte countOrd ered By: Alex Weir on 08-27-2022 Lymphocytes Auto (Unsp spec) [#/Vol] 1.65 10*3/uL 0.83-4.51 [facility] Basophil percentageOrdered B y: Alex Weir on 08-27-2022 Basophils/100 WBC (Bld) 1.1 % 0-1 [facility] Bilirubin [Mass/Vol] 0.20 mg/dL 0.20-1.00 [facility] Comment on above: For patients on eltr ombopag therapy, use of Dimension [place] TBIL is not recommended. Chloride [Moles/Vol] 110 mmol/L 98-107 [facility] Eosinophils/100 WBC (Bld) 3.6 % 0-5 [facility] Glucose [Mass/Vol] 105 mg/dL 74-106 [facility] Comment on above: Fasting Glucose resu lt from 100 to 125 mg/dL suggests IMPAIRED HOMEOSTASIS per A.D.A. criteria. Neutrophils (Bld) [#/Vol] 2.7 10*3/uL 2.0-7.7 [facility] Neutrophils/100 WBC (Bld) 50.9 % 47-70 [facility] Potassium [Moles/Vol] 4.5 mmol/L 3.5-5.1 [facility] Protein [Mass/Vol] 6.8 g/dL 6.4-8.2 [facility] Sodium [Moles/Vol] 142 mmol/L 136-145 [facility] WBC (Bld) [#/Vol] 5.3 10*3/uL 4.4-11.0 [facility] Blood erythrocytes count (nu mber/volume)Ordered By: Alex Weir on 08-27-2022 RBC (Bld) [#/Vol] 3.84 10*6/uL 4.2-5.4 [facility] Blood hemoglobin measurement (mass/volume)Ordered By: Alex Weir on 08-27-2022 Hemoglobin (Bld) [Mass/Vol] 12.0 g/dL 12.0-15.0 [facility] Blood lymphocytes/100 leukoc ytesOrdered By: Alex Weir on 08-27-2022 Lymphocytes/100 WBC (Bld) 31.4 % 19-41 [facility] Blood monocytes/100 leukocyt esOrdered By: Alex Weir on 08-27-2022 Monocytes/100 WBC (Bld) 12.6 % 0-10 [facility] Blood platelet mean volumeOr dered By: Alex Weir on 08-27-2022 Platelet mean volume (Bld) [Entitic vol] 9.6 fL 6.2-12.0 [facility] Determination of erythrocyte mean corpuscular volume (MCV)Ordered By: Alex Weir on 08-27-2022 MCV (RBC) [Entitic vol] 95.6 fL 81-99 [facility] Hematocrit Auto (Bld) [Volum e fraction]Ordered By: Alex Weir on 08-27-2022 Hematocrit (Bld) [Volume fraction] 36.7 % 37-47 [facility] Laboratory - Chemistry and C hemistry - challengeOrdered By: Alex Weir on 08-27-2022 ALP [Catalytic activity/Vol] 94 U/L 45-117 [facility] ALT [Catalytic activity/Vol] 19 U/L 13-56 [facility] CO2 [Moles/Vol] 22.0 mmol/L 21.0-32.0 [facility] Globulin (S) [Mass/Vol] 3.4 g/dL 2.2-4.2 [facility] Urea nitrogen/Creatinine [Mass ratio] 24.6 mg/mg 10-20 [facility] - Hematology and Cell countsOrdered By: Alex Weir on 08-27-2022 Erythrocyte distribution width (RBC) [Entitic vol] 44.7 fL 35.1-43.9 [facility] Erythrocyte distribution width (RBC) [Ratio] 12.8 % 11.6-14.6 [facility] Immature granulocytes/100 WBC (Bld) 0.400 % 0.0-0.9 [facility] Comment on above: IG% - Immature Granu locytes (promyelocytes, myelocytes and metamyelocytes) > 1% indicates that a LEFT SHIFT is Present. MCH (RBC) [Entitic mass] 31.3 pg 27.0-32.0 [facility] Nucleated RBC/100 WBC (Bld) [Ratio] 0 % 0-5 [facility] MCHC Auto (RBC) [Mass/Vol]Or dered By: Alex Weir on 08-27-2022 MCHC (RBC) [Mass/Vol] 32.7 g/dL 32-36 [facility] No Panel InformationOrdered By: Alex Weir on 08-27-2022 Estimated GFR (MDRD) Amer 84 mL/min >60 [facility] Comment on above: GFR Calc Estimated GFR (MDRD) Non-Af Amer 69 mL/min >60 [facility] Comment on above: Non- GFR Calc Platelets bldOrdered By: Kunal Weir on 08-27-2022 Platelets (Bld) [#/Vol] 270 10*3/uL 150-450 [facility] Serum or plasma albumin fiona urement (mass/volume)Ordered By: Alex Weir on 08-27-2022 Albumin [Mass/Vol] 3.4 g/dL 3.2-5.0 [facility] Serum or plasma albumin/glob ulin mass ratioOrdered By: Alxe Weri on 08-27-2022 Albumin/Globulin [Mass ratio] 1.0 {ratio} 0.9-2.4 [facility] Serum or plasma calcium fiona urement (mass/volume)Ordered By: Alex Weir on 08-27-2022 Calcium [Mass/Vol] 8.7 mg/dL 8.5-10.1 [facility] Serum or plasma creatinine m easurement (mass/volume)Ordered By: Alex Weir on 08-27-2022 Creatinine [Mass/Vol] 0.85 mg/dL 0.55-1.02 [facility] Comment on above: The validity of the calculated GFR & GFRAA in patients over 70 years has not been determined. Clinical correlation is essential. Serum or plasma urea nitroge n measurement (mass/volume)Ordered By: Alex Weir on 08-27-2022 Urea nitrogen [Mass/Vol] 21 mg/dL 7-18 [facility] Thin prep Papanicolaou smear with manual screeningOrdered By: Alex Weir on 08-27-2022 Thin prep Papanicolaou smear with manual screening 11 U/L 15-37 [facility] Thin prep Papanicolaou smear with manual screening 10 5-15 [facility] Absolute lymphocyte countOrd ered By: Alex Weir on 06-25-2022 Lymphocytes Auto (Unsp spec) [#/Vol] 1.43 10*3/uL 0.83-4.51 [facility] Basophil percentageOrdered B y: Alex Weir on 06-25-2022 Basophils/100 WBC (Bld) 0.8 % 0-1 [facility] Bilirubin [Mass/Vol] 0.30 mg/dL 0.20-1.00 [facility] Comment on above: For patients on eltr ombopag therapy, use of Dimension [place] TBIL is not recommended. Chloride [Moles/Vol] 108 mmol/L 98-107 [facility] Eosinophils/100 WBC (Bld) 3.2 % 0-5 [facility] Glucose [Mass/Vol] 122 mg/dL 74-106 [facility] Comment on above: Fasting Glucose resu lt from 100 to 125 mg/dL suggests IMPAIRED HOMEOSTASIS per A.D.A. criteria. Neutrophils (Bld) [#/Vol] 2.7 10*3/uL 2.0-7.7 [facility] Neutrophils/100 WBC (Bld) 54.1 % 47-70 [facility] Potassium [Moles/Vol] 4.5 mmol/L 3.5-5.1 [facility] Protein [Mass/Vol] 6.4 g/dL 6.4-8.2 [facility] Sodium [Moles/Vol] 141 mmol/L 136-145 [facility] WBC (Bld) [#/Vol] 5.0 10*3/uL 4.4-11.0 [facility] Blood erythrocytes count (nu mber/volume)Ordered By: Alex Weir on 06-25-2022 RBC (Bld) [#/Vol] 3.96 10*6/uL 4.2-5.4 [facility] Blood hemoglobin measurement (mass/volume)Ordered By: Alex Weir on 06-25-2022 Hemoglobin (Bld) [Mass/Vol] 12.0 g/dL 12.0-15.0 [facility] Blood lymphocytes/100 leukoc ytesOrdered By: Alex Weir on 06-25-2022 Lymphocytes/100 WBC (Bld) 28.8 % 19-41 [facility] Blood monocytes/100 leukocyt esOrdered By: Alex Weir on 06-25-2022 Monocytes/100 WBC (Bld) 12.7 % 0-10 [facility] Blood platelet mean volumeOr dered By: Alex Weir on 06-25-2022 Platelet mean volume (Bld) [Entitic vol] 9.6 fL 6.2-12.0 [facility] Determination of erythrocyte mean corpuscular volume (MCV)Ordered By: Alex Weir on 06-25-2022 MCV (RBC) [Entitic vol] 92.2 fL 81-99 [facility] Hematocrit Auto (Bld) [Volum e fraction]Ordered By: Alex Weir on 06-25-2022 Hematocrit (Bld) [Volume fraction] 36.5 % 37-47 [facility] Laboratory - Chemistry and C hemistry - challengeOrdered By: Alex Weir on 06-25-2022 ALP [Catalytic activity/Vol] 94 U/L 45-117 [facility] ALT [Catalytic activity/Vol] 17 U/L 13-56 [facility] CO2 [Moles/Vol] 25.0 mmol/L 21.0-32.0 [facility] [facility] Globulin (S) [Mass/Vol] 3.2 g/dL 2.2-4.2 [facility] Urea nitrogen/Creatinine [Mass ratio] 15.6 mg/mg 10-20 [facility] - Hematology and Cell countsOrdered By: Alex Weir on 06-25-2022 Erythrocyte distribution width (RBC) [Entitic vol] 47.5 fL 35.1-43.9 [facility] Erythrocyte distribution width (RBC) [Ratio] 14.1 % 11.6-14.6 [facility] Immature granulocytes/100 WBC (Bld) 0.400 % 0.0-0.9 [facility] Comment on above: IG% - Immature Granu locytes (promyelocytes, myelocytes and metamyelocytes) > 1% indicates that a LEFT SHIFT is Present. MCH (RBC) [Entitic mass] 30.3 pg 27.0-32.0 [facility] Nucleated RBC/100 [facility] (Bld) [[facility]] 0 [facility] [Mass/Vol]Or dered By: Alex Weir on 06-25-2022 MCHC (RBC) [Mass/Vol] 32.9 g/dL 32-36 [facility] No Panel InformationOrdered By: Alex Weir on 06-25-2022 Estimated GFR (MDRD) Amer 86 mL/min >60 [facility] Comment on above: GFR Calc Estimated GFR (MDRD) Non-Af Amer 71 mL/min >60 [facility] Comment on above: Non- GFR Calc Platelets bldOrdered By: Kunal Weir on 06-25-2022 Platelets (Bld) [#/Vol] 237 10*3/uL 150-450 [facility] Serum or plasma albumin fiona urement (mass/volume)Ordered By: Alex Weir on 06-25-2022 Albumin [Mass/Vol] 3.2 g/dL 3.2-5.0 [facility] Serum or plasma albumin/glob ulin mass ratioOrdered By: Alex Weir on 06-25-2022 Albumin/Globulin [Mass ratio] 1.0 {ratio} 0.9-2.4 [facility] Serum or plasma calcium fiona urement (mass/volume)Ordered By: Alex Weir on 06-25-2022 Calcium [Mass/Vol] 9.0 mg/dL 8.5-10.1 [facility] Serum or plasma creatinine m easurement (mass/volume)Ordered By: Alex Weir on 06-25-2022 Creatinine [Mass/Vol] 0.83 mg/dL 0.55-1.02 [facility] Comment on above: The validity of the calculated GFR & GFRAA in patients over 70 years has not been determined. Clinical correlation is essential. Serum or plasma urea nitroge n measurement (mass/volume)Ordered By: Alex Weir on 06-25-2022 Urea nitrogen [Mass/Vol] 13 mg/dL 7-18 [facility] Thin prep Papanicolaou smear with manual screeningOrdered By: Alex Weir on 06-25-2022 Thin prep Papanicolaou smear with manual screening 12 U/L 15-37 [facility] Thin prep Papanicolaou smear with manual screening 8 5-15 [facility] Absolute lymphocyte countOrd ered By: Viviana Mcgee on 05-28-2022 Lymphocytes Auto (Unsp spec) [#/Vol] 1.54 10*3/uL 0.83-4.51 [facility] Basophil percentageOrdered B y: Viviana Mcgee on 05-28-2022 Basophils/100 WBC (Bld) 1.4 % 0-1 [facility] Bilirubin [Mass/Vol] 0.30 mg/dL 0.20-1.00 [facility] Comment on above: For patients on eltr ombopag therapy, use of Dimension [place] TBIL is not recommended. Chloride [Moles/Vol] 111 mmol/L 98-107 [facility] Eosinophils/100 WBC (Bld) 4.3 % 0-5 [facility] Glucose [Mass/Vol] 105 mg/dL 74-106 [facility] Comment on above: Fasting Glucose resu lt from 100 to 125 mg/dL suggests IMPAIRED HOMEOSTASIS per A.D.A. criteria. Neutrophils (Bld) [#/Vol] 2.0 10*3/uL 2.0-7.7 [facility] Neutrophils/100 WBC (Bld) 44.7 % 47-70 [facility] Potassium [Moles/Vol] 4.2 mmol/L 3.5-5.1 [facility] Protein [Mass/Vol] 6.4 g/dL 6.4-8.2 [facility] Sodium [Moles/Vol] 142 mmol/L 136-145 [facility] WBC (Bld) [#/Vol] 4.4 10*3/uL 4.4-11.0 [facility] Blood erythrocytes count (nu mber/volume)Ordered By: Viviana Mcgee on 05-28-2022 RBC (Bld) [#/Vol] 4.06 10*6/uL 4.2-5.4 [facility] Blood hemoglobin measurement (mass/volume)Ordered By: Viviana Mcgee on 05-28-2022 Hemoglobin (Bld) [Mass/Vol] 11.9 g/dL 12.0-15.0 [facility] Blood lymphocytes/100 leukoc ytesOrdered By: Viviana Mcgee on 05-28-2022 Lymphocytes/100 WBC (Bld) 35.2 % 19-41 [facility] Blood monocytes/100 leukocyt esOrdered By: lawsonsanta fepapa Mcgee on 05-28-2022 Monocytes/100 WBC (Bld) 14.4 % 0-10 [facility] Blood platelet mean volumeOr dered By: Viviana Mcgee on 05-28-2022 Platelet mean volume (Bld) [Entitic vol] 9.2 fL 6.2-12.0 [facility] Determination of erythrocyte mean corpuscular volume (MCV)Ordered By: Viviana Mcgee on 05-28-2022 MCV (RBC) [Entitic vol] 89.2 fL 81-99 [facility] Hematocrit Auto (Bld) [Volum e fraction]Or[facility] By: [facility] Hematocrit (Bld) [Volume fraction] 36.2 % 37-47 [facility] - Chemistry and C hemistry - challengeOrdered By: lawsonsanta fepapa Mcgee on 05-28-2022 ALP [Catalytic activity/Vol] 91 U/L 45-117 [facility] ALT [Catalytic activity/Vol] 14 U/L 13-56 [facility] CO2 [Moles/Vol] 22.0 mmol/L 21.0-32.0 [facility] Globulin (S) [Mass/Vol] 3.3 g/dL 2.2-4.2 [facility] Urea nitrogen/Creatinine [Mass ratio] 18.8 mg/mg 10-20 [facility] - Hematology and Cell countsOrdered By: lawsonsanta fepapa Mcgee on 05-28-2022 Erythrocyte distribution width (RBC) [Entitic vol] 51.6 fL 35.1-43.9 [facility] Erythrocyte distribution width (RBC) [Ratio] 15.8 % 11.6-14.6 [facility] Immature granulocytes/100 WBC (Bld) 0.000 % 0.0-0.9 [facility] Comment on above: IG% - Immature Granu locytes (promyelocytes, myelocytes and metamyelocytes) > 1% indicates that a LEFT SHIFT is Present. MCH (RBC) [Entitic mass] 29.3 pg 27.0-32.0 [facility] Nucleated RBC/100 WBC (Bld) [Ratio] 0 % 0-5 [facility] MCHC Auto (RBC) [Mass/Vol]Or dered By: Viviana Mcgee on 05-28-2022 MCHC (RBC) [Mass/Vol] 32.9 g/dL 32-36 [facility] No Panel InformationOrdered By: Viviana Mcgee on 05-28-2022 Estimated GFR (MDRD) Amer 84 mL/min >60 [facility] Comment on above: GFR Calc Estimated GFR (MDRD) Non-Af Amer 69 mL/min >60 [facility] Comment on above: Non- GFR Calc Platelets bldOrdered By: Reza Mcgee on 05-28-2022 Platelets (Bld) [#/Vol] 219 10*3/uL 150-450 [facility] Serum or plasma albumin fiona urement (mass/volume)Ordered By: Viviana Mcgee on 05-28-2022 Albumin [Mass/Vol] 3.1 g/dL 3.2-5.0 [facility] Serum or plasma albumin/glob ulin mass ratioOrdered By: Viviana Mcgee on 05-28-2022 Albumin/Globulin [Mass ratio] 0.9 {ratio} 0.9-2.4 [facility] Serum or plasma calcium fiona urement (mass/volume)Ordered By: Viviana Mcgee on 05-28-2022 Calcium [Mass/Vol] 8.3 mg/dL 8.5-10.1 [facility] Serum or plasma creatinine m easurement (mass/volume)Ordered By: Viviana Mcgee on 05-28-2022 Creatinine [Mass/Vol] 0.85 mg/dL 0.55-1.02 [facility] Comment on above: The validity of the calculated GFR & GFRAA in patients over 70 years has not been determined. Clinical correlation is essential. Serum or plasma urea nitroge n measurement (mass/volume)Ordered By: Viviana Mcgee on 05-28-2022 Urea nitrogen [Mass/Vol] 16 mg/dL 7-18 [facility] Thin prep Papanicolaou smear with manual screeningOrdered By: Viviana Mcgee on 05-28-2022 Thin prep Papanicolaou smear with manual screening 14 U/L 15-37 [facility] Thin prep Papanicolaou smear with manual screening 9 5-15 [facility] Absolute lymphocyte countOrd ered By: Alex Weir on 04-30-2022 Lymphocytes Auto (Unsp spec) [#/Vol] 1.52 10*3/uL 0.83-4.51 [facility] Basophil percentageOrdered B y: Alex Weir on 04-30-2022 Basophils/100 WBC (Bld) 1.4 % 0-1 [facility] Bilirubin [Mass/Vol] 0.30 mg/dL 0.20-1.00 [facility] Comment on above: For patients on eltr ombopag therapy, use of Dimension [place] TBIL is not recommended. Chloride [Moles/Vol] 111 mmol/L 98-107 [facility] Eosinophils/100 WBC (Bld) 3.5 % 0-5 [facility] Glucose [Mass/Vol] 110 mg/dL 74-106 [facility] Comment on above: Fasting Glucose resu lt from 100 to 125 mg/dL suggests IMPAIRED HOMEOSTASIS per A.D.A. criteria. Neutrophils (Bld) [#/Vol] 2.7 10*3/uL 2.0-7.7 [facility] Neutrophils/100 WBC (Bld) 52.1 % 47-70 [facility] Potassium [Moles/Vol] 4.3 mmol/L 3.5-5.1 [facility] Protein [Mass/Vol] 6.4 g/dL 6.4-8.2 [facility] Sodium [Moles/Vol] 141 mmol/L 136-145 [facility] WBC (Bld) [#/Vol] 5.2 10*3/uL 4.4-11.0 [facility] Blood erythrocytes count (nu mber/volume)Ordered By: Alex Weir on 04-30-2022 RBC (Bld) [#/Vol] 4.07 10*6/uL 4.2-5.4 [facility] Blood hemoglobin measurement (mass/volume)Ordered By: Alex Weir on 04-30-2022 Hemoglobin (Bld) [Mass/Vol] 11.5 g/dL 12.0-15.0 [facility] Blood lymphocytes/100 leukoc ytesOrdered By: Alex Weir on 04-30-2022 Lymphocytes/100 WBC (Bld) 29.4 % 19-41 [facility] Blood monocytes/100 leukocyt esOrdered By: Alex Weir on 04-30-2022 Monocytes/100 WBC (Bld) 13.0 % 0-10 [facility] Blood platelet mean volumeOr dered By: Alex Weir on 04-30-2022 Platelet mean volume (Bld) [Entitic vol] 9.1 fL 6.2-12.0 [facility] Determination of erythrocyte mean corpuscular volume (MCV)Ordered By: Alex Weir on 04-30-2022 MCV (RBC) [Entitic vol] 88.2 fL 81-99 [facility] Hematocrit Auto (Bld) [Volum e fraction]Ordered By: Alex Weir on 04-30-2022 Hematocrit (Bld) [Volume fraction] 35.9 % 37-47 [facility] - Chemistry and C hemistry - challengeOrdered By: Alex Weir on 04-30-2022 ALP [Catalytic activity/Vol] 102 U/L 45-117 [facility] ALT [Catalytic activity/Vol] 15 U/L 13-56 [facility] CO2 [Moles/Vol] 27.0 mmol/L 21.0-32.0 [facility] Globulin (S) [Mass/Vol] 3.3 g/dL 2.2-4.2 [facility] Urea nitrogen/Creatinine [Mass ratio] 18.0 mg/mg 10-20 [facility] - Hematology and Cell countsOrdered By: Alex Weir on 04-30-2022 Erythrocyte distribution width (RBC) [Entitic vol] 55.8 fL 35.1-43.9 [facility] Erythrocyte distribution width (RBC) [Ratio] 17.4 % 11.6-14.6 [facility] Immature granulocytes/100 WBC (Bld) 0.600 % 0.0-0.9 [facility] Comment on above: IG% - Immature Granu locytes (promyelocytes, myelocytes and metamyelocytes) > 1% indicates that a LEFT SHIFT is Present. MCH (RBC) [Entitic mass] 28.3 pg 27.0-32.0 [facility] Nucleated RBC/100 WBC (Bld) [Ratio] 0 % 0-5 [facility] MCHC Auto (RBC) [Mass/Vol]Or dered By: Alex Weir on 04-30-2022 MCHC (RBC) [Mass/Vol] 32.0 g/dL 32-36 [facility] No Panel InformationOrdered By: Alex Weir on 04-30-2022 Estimated GFR (MDRD) Amer 80 mL/min >60 [facility] Comment on above: GFR Calc Estimated GFR (MDRD) Non-Af Amer 66 mL/min >60 [facility] Comment on above: Non- GFR Calc Platelets bldOrdered By: Kunal Weir on 04-30-2022 Platelets (Bld) [#/Vol] 280 10*3/uL 150-450 [facility] Serum or plasma albumin fiona urement (mass/volume)Ordered By: Alex Weir on 04-30-2022 Albumin [Mass/Vol] 3.1 g/dL 3.2-5.0 [facility] Serum or plasma albumin/glob ulin mass ratioOrdered By: Alex Weir on 04-30-2022 Albumin/Globulin [Mass ratio] 0.9 {ratio} 0.9-2.4 [facility] Serum or plasma calcium fiona urement (mass/volume)Ordered By: Alex Weir on 04-30-2022 Calcium [Mass/Vol] 8.9 mg/dL 8.5-10.1 [facility] Serum or plasma creatinine m easurement (mass/volume)Ordered By: Alex Weir on 04-30-2022 Creatinine [Mass/Vol] 0.89 mg/dL 0.55-1.02 [facility] Comment on above: The validity of the calculated GFR & GFRAA in patients over 70 years has not been determined. Clinical correlation is essential. Serum or plasma urea nitroge n measurement (mass/volume)Ordered By: Alex Weir on 04-30-2022 Urea nitrogen [Mass/Vol] 16 mg/dL 7-18 [facility] Thin prep Papanicolaou smear with manual screeningOrdered By: Alex Weir on 04-30-2022 Thin prep Papanicolaou smear with manual screening 11 U/L 15-37 [facility] Thin prep Papanicolaou smear with manual screening 3 5-15 [facility] No Panel InformationOrdered By: Viviana Mcgee on 03-29-2022 Thyroid Stimulating Hormone (TSH) 2.52 uIU/mL 0.358-3.74 [facility] Absolute lymphocyte countOrd ered By: Alex Weir on 03-26-2022 Lymphocytes Auto (Unsp spec) [#/Vol] 0.77 10*3/uL 0.83-4.51 [facility] Basophil percentageOrdered B y: Alex Weir on 03-26-2022 Basophils/100 WBC (Bld) 0.6 % 0-1 [facility] Bilirubin [Mass/Vol] 0.20 mg/dL 0.20-1.00 [facility] Comment on above: For patients on eltr ombopag therapy, use of Dimension [place] TBIL is not recommended. Chloride [Moles/Vol] 107 mmol/L 98-107 [facility] Eosinophils/100 WBC (Bld) 1.7 % 0-5 [facility] Glucose [Mass/Vol] 115 mg/dL 74-106 [facility] Comment on above: Fasting Glucose resu lt from 100 to 125 mg/dL suggests IMPAIRED HOMEOSTASIS per A.D.A. criteria. Neutrophils (Bld) [#/Vol] 8.0 10*3/uL 2.0-7.7 [facility] Neutrophils/100 WBC (Bld) 82.4 % 47-70 [facility] Potassium [Moles/Vol] 4.2 mmol/L 3.5-5.1 [facility] Protein [Mass/Vol] 7.2 g/dL 6.4-8.2 [facility] Sodium [Moles/Vol] 138 mmol/L 136-145 [facility] WBC (Bld) [#/Vol] 9.6 10*3/uL 4.4-11.0 [facility] Blood erythrocytes count (nu mber/volume)Ordered By: Alex Weir on 03-26-2022 RBC (Bld) [#/Vol] 4.15 10*6/uL 4.2-5.4 [facility] Blood hemoglobin measurement (mass/volume)Ordered By: Alex Weir on 03-26-2022 Hemoglobin (Bld) [Mass/Vol] 11.5 g/dL 12.0-15.0 [facility] Blood lymphocytes/100 leukoc ytesOrdered By: Alex Weir on 03-26-2022 Lymphocytes/100 WBC (Bld) 8.0 % 19-41 [facility] Blood monocytes/100 leukocyt esOrdered By: Alex Weir on 03-26-2022 Monocytes/100 WBC (Bld) 7.0 % 0-10 [facility] Blood platelet mean volumeOr dered By: Alex Weir on 03-26-2022 Platelet mean volume (Bld) [Entitic vol] 8.9 fL 6.2-12.0 [facility] Determination of erythrocyte mean corpuscular volume (MCV)Ordered By: Alex Weir on 03-26-2022 MCV (RBC) [Entitic vol] 90.6 fL 81-99 [facility] Hematocrit Auto (Bld) [Volum e fraction]Ordered By: Alex Weir on 03-26-2022 Hematocrit (Bld) [Volume fraction] 37.6 % 37-47 [facility] - Chemistry and C hemistry - challengeOrdered By: Alex Weir on 03-26-2022 ALP [Catalytic activity/Vol] 125 U/L 45-117 [facility] ALT [Catalytic activity/Vol] 15 U/L 13-56 [facility] CO2 [Moles/Vol] 26.0 mmol/L 21.0-32.0 [facility] Globulin (S) [Mass/Vol] 4.0 g/dL 2.2-4.2 [facility] Urea nitrogen/Creatinine [Mass ratio] 14.1 mg/mg 10-20 [facility] - Hematology and Cell countsOrdered By: Alex Weir on 03-26-2022 Erythrocyte distribution width (RBC) [Entitic vol] 59.8 fL 35.1-43.9 [facility] Erythrocyte distribution width (RBC) [Ratio] 17.9 % 11.6-14.6 [facility] Immature granulocytes/100 WBC (Bld) 0.300 % 0.0-0.9 [facility] Comment on above: IG% - Immature Granu locytes (promyelocytes, myelocytes and metamyelocytes) > 1% indicates that a LEFT SHIFT is Present. MCH (RBC) [Entitic mass] 27.7 pg 27.0-32.0 [facility] Nucleated RBC/100 WBC (Bld) [Ratio] 0 % 0-5 [facility] MCHC Auto (RBC) [Mass/Vol]Or dered By: Alex Weir on 03-26-2022 MCHC (RBC) [Mass/Vol] 30.6 g/dL 32-36 [facility] No Panel InformationOrdered By: Alex Weir on 03-26-2022 Estimated GFR (MDRD) Amer 84 mL/min >60 [facility] Comment on above: GFR Calc Estimated GFR (MDRD) Non-Af Amer 69 mL/min >60 [facility] Comment on above: Non- GFR Calc Platelets bldOrdered By: Kunal Weir on 03-26-2022 Platelets (Bld) [#/Vol] 334 10*3/uL 150-450 [facility] Serum or plasma albumin fiona urement (mass/volume)Ordered By: Alex Weir on 03-26-2022 Albumin [Mass/Vol] 3.2 g/dL 3.2-5.0 [facility] Serum or plasma albumin/glob ulin mass ratioOrdered By: Alex Weir on 03-26-2022 Albumin/Globulin [Mass ratio] 0.8 {ratio} 0.9-2.4 [facility] Serum or plasma calcium fiona urement (mass/volume)Ordered By: Alex Weir on 03-26-2022 Calcium [Mass/Vol] 8.9 mg/dL 8.5-10.1 [facility] Serum or plasma creatinine m easurement (mass/volume)Ordered By: Alex Weir on 03-26-2022 Creatinine [Mass/Vol] 0.85 mg/dL 0.55-1.02 [facility] Comment on above: The validity of the calculated GFR & GFRAA in patients over 70 years has not been determined. Clinical correlation is essential. Serum or plasma urea nitroge n measurement (mass/volume)Ordered By: Alex Weir on 03-26-2022 Urea nitrogen [Mass/Vol] 12 mg/dL 7-18 [facility] Thin prep Papanicolaou smear with manual screeningOrdered By: Alex Weir on 03-26-2022 Thin prep Papanicolaou smear with manual screening 12 U/L 15-37 [facility] Thin prep Papanicolaou smear with manual screening 5 5-15 [facility] Absolute lymphocyte countOrd ered By: Alex Weir on 02-26-2022 Lymphocytes Auto (Unsp spec) [#/Vol] 1.59 10*3/uL 0.83-4.51 [facility] Basophil percentageOrdered B y: Alex Weir on 02-26-2022 Basophils/100 WBC (Bld) 1.6 % 0-1 [facility] Bilirubin [Mass/Vol] 0.20 mg/dL 0.20-1.00 [facility] Comment on above: For patients on eltr ombopag therapy, use of Dimension [place] TBIL is not recommended. Chloride [Moles/Vol] 101 mmol/L 98-107 [facility] Eosinophils/100 WBC (Bld) 5.8 % 0-5 [facility] Glucose [Mass/Vol] 99 mg/dL 74-106 [facility] Neutrophils (Bld) [#/Vol] 2.5 10*3/uL 2.0-7.7 [facility] Neutrophils/100 WBC (Bld) 48.1 % 47-70 [facility] Potassium [Moles/Vol] 4.3 mmol/L 3.5-5.1 [facility] Protein [Mass/Vol] 7.3 g/dL 6.4-8.2 [facility] Sodium [Moles/Vol] 134 mmol/L 136-145 [facility] WBC (Bld) [#/Vol] 5.1 10*3/uL 4.4-11.0 [facility] Blood erythrocytes count (nu mber/volume)Ordered By: Alex Weir on 02-26-2022 RBC (Bld) [#/Vol] 3.49 10*6/uL 4.2-5.4 [facility] Blood hemoglobin measurement (mass/volume)Ordered By: Alex Weir on 02-26-2022 Hemoglobin (Bld) [Mass/Vol] 10.1 g/dL 12.0-15.0 [facility] Blood lymphocytes/100 leukoc ytesOrdered By: Alex Weir on 02-26-2022 Lymphocytes/100 WBC (Bld) 31.0 % 19-41 [facility] Blood monocytes/100 leukocyt esOrdered By: Alex Weir on 02-26-2022 Monocytes/100 WBC (Bld) 12.9 % 0-10 [facility] Blood platelet mean volumeOr dered By: Alex Weir on 02-26-2022 Platelet mean volume (Bld) [Entitic vol] 8.4 fL 6.2-12.0 [facility] Determination of erythrocyte mean corpuscular volume (MCV)Ordered By: Alex Weir on 02-26-2022 MCV (RBC) [Entitic vol] 89.7 fL 81-99 [facility] Hematocrit Auto (Bld) [Volum e fraction]Ordered By: Alex Weir on 02-26-2022 Hematocrit (Bld) [Volume fraction] 31.3 % 37-47 [facility] - Chemistry and C hemistry - challengeOrdered By: Alex Weir on 02-26-2022 ALP [Catalytic activity/Vol] 110 U/L 45-117 [facility] ALT [Catalytic activity/Vol] 15 U/L 13-56 [facility] CO2 [Moles/Vol] 27.0 mmol/L 21.0-32.0 [facility] Globulin (S) [Mass/Vol] 4.5 g/dL 2.2-4.2 [facility] Urea nitrogen/Creatinine [Mass ratio] 11.1 mg/mg 10-20 [facility] - Hematology and Cell countsOrdered By: Alex Weir on 02-26-2022 Erythrocyte distribution width (RBC) [Entitic vol] 59.3 fL 35.1-43.9 [facility] Erythrocyte distribution width (RBC) [Ratio] 18.0 % 11.6-14.6 [facility] Immature granulocytes/100 WBC (Bld) 0.600 % 0.0-0.9 [facility] Comment on above: IG% - Immature Granu locytes (promyelocytes, myelocytes and metamyelocytes) > 1% indicates that a LEFT SHIFT is Present. MCH (RBC) [Entitic mass] 28.9 pg 27.0-32.0 [facility] Nucleated RBC/100 W[facility] (Bld) [[facility]] 0 [facility] [Mass/Vol]Or dered By: Alex Weir on 02-26-2022 MCHC (RBC) [Mass/Vol] 32.3 g/dL 32-36 [facility] No Panel InformationOrdered By: Alex Weir on 02-26-2022 Estimated GFR (MDRD) Amer 88 mL/min >60 [facility] Comment on above: GFR Calc Estimated GFR (MDRD) Non-Af Amer 73 mL/min >60 [facility] Comment on above: Non- GFR Calc Platelets bldOrdered By: Kunal Weir on 02-26-2022 Platelets (Bld) [#/Vol] 358 10*3/uL 150-450 [facility] Serum or plasma albumin fiona urement (mass/volume)Ordered By: Alex Weir on 02-26-2022 Albumin [Mass/Vol] 2.8 g/dL 3.2-5.0 [facility] Serum or plasma albumin/glob ulin mass ratioOrdered By: Alex Weir on 02-26-2022 Albumin/Globulin [Mass ratio] 0.6 {ratio} 0.9-2.4 [facility] Serum or plasma calcium fiona urement (mass/volume)Ordered By: Alex Weir on 02-26-2022 Calcium [Mass/Vol] 9.3 mg/dL 8.5-10.1 [facility] Serum or plasma creatinine m easurement (mass/volume)Ordered By: Alex Weir on 02-26-2022 Creatinine [Mass/Vol] 0.81 mg/dL 0.55-1.02 [facility] Comment on above: The validity of the calculated GFR & GFRAA in patients over 70 years has not been determined. Clinical correlation is essential. Serum or plasma urea nitroge n measurement (mass/volume)Ordered By: Alex Weir on 02-26-2022 Urea nitrogen [Mass/Vol] 9 mg/dL 7-18 [facility] Thin prep Papanicolaou smear with manual screeningOrdered By: Alex Weir on 02-26-2022 Thin prep Papanicolaou smear with manual screening 13 U/L 15-37 [facility] Thin prep Papanicolaou smear with manual screening 6 5-15 [facility] Absolute lymphocyte countOrd ered By: Alex Weir on 01-29-2022 Lymphocytes Auto (Unsp spec) [#/Vol] 1.55 10*3/uL 0.83-4.51 [facility] Basophil percentageOrdered B y: Alex Weir on 01-29-2022 Basophils/100 WBC (Bld) 0.8 % 0-1 [facility] Bilirubin [Mass/Vol] 0.10 mg/dL 0.20-1.00 [facility] Comment on above: For patients on eltr ombopag therapy, use of Dimension [place] TBIL is not recommended. Chloride [Moles/Vol] 101 mmol/L 98-107 [facility] Eosinophils/100 WBC (Bld) 3.0 % 0-5 [facility] Glucose [Mass/Vol] 101 mg/dL 74-106 [facility] Comment on above: Fasting Glucose resu lt from 100 to 125 mg/dL suggests IMPAIRED HOMEOSTASIS per A.D.A. criteria. Neutrophils (Bld) [#/Vol] 5.7 10*3/uL 2.0-7.7 [facility] Neutrophils/100 WBC (Bld) 67.6 % 47-70 [facility] Potassium [Moles/Vol] 4.6 mmol/L 3.5-5.1 [facility] Protein [Mass/Vol] 7.6 g/dL 6.4-8.2 [facility] Sodium [Moles/Vol] 135 mmol/L 136-145 [facility] WBC (Bld) [#/Vol] 8.4 10*3/uL 4.4-11.0 [facility] Blood erythrocytes count (nu mber/volume)Ordered By: Alex Weir on 01-29-2022 RBC (Bld) [#/Vol] 2.89 10*6/uL 4.2-5.4 [facility] Blood hemoglobin measurement (mass/volume)Ordered By: Alex Weir on 01-29-2022 Hemoglobin (Bld) [Mass/Vol] 9.2 g/dL 12.0-15.0 [facility] Blood lymphocytes/100 leukoc ytesOrdered By: Alex Weir on 01-29-2022 Lymphocytes/100 WBC (Bld) 18.5 % 19-41 [facility] Blood monocytes/100 leukocyt esOrdered By: Alex Weir on 01-29-2022 Monocytes/100 WBC (Bld) 9.9 % 0-10 [facility] Blood platelet adequacy dete ction by light microscopyOrdered By: Alex Weir on 01-29-2022 Platelets LM Ql (Bld) ADEQUATE ADEQ [facility] Blood platelet mean volumeOr dered By: Alex Weir on 01-29-2022 Platelet mean volume (Bld) [Entitic vol] 8.7 fL 6.2-12.0 [facility] Determination of erythrocyte mean corpuscular volume (MCV)Ordered By: Alex Weir on 01-29-2022 MCV (RBC) [Entitic vol] 99.3 fL 81-99 [facility] Hematocrit Auto (Bld) [Volum e fraction]Ordered By: Alex Weir on 01-29-2022 Hematocrit (Bld) [Volume fraction] 28.7 % 37-47 [facility] Laboratory - Chemistry and C hemistry - challengeOrdered By: Alex Weir on 01-29-2022 ALP [Catalytic activity/Vol] 98 U/L 45-117 [facility] ALT [Catalytic activity/Vol] 22 U/L 13-56 [facility] CO2 [Moles/Vol] 26.0 mmol/L 21.0-32.0 [facility] Globulin (S) [Mass/Vol] 5.2 g/dL 2.2-4.2 [facility] Urea nitrogen/Creatinine [Mass ratio] 11.8 mg/mg 10-20 [facility] Laboratory - Hematology and Cell countsOrdered By: Alex Weir on 01-29-2022 Anisocytosis Ql (Bld) 1+ [facility] Erythrocyte distribution width (RBC) [Entitic vol] 65.9 fL 35.1-43.9 [facility] Erythrocyte distribution width (RBC) [Ratio] 18.0 % 11.6-14.6 [facility] Immature granulocytes/100 WBC (Bld) 0.200 % 0.0-0.9 [facility] Comment on above: IG% - Immature Granu locytes (promyelocytes, myelocytes and metamyelocytes) > 1% indicates that a LEFT SHIFT is Present. MCH (RBC) [Entitic mass] 31.8 pg 27.0-32.0 [facility] Nucleated RBC/100 WBC (Bld) [Ratio] 0 % 0-5 [facility] MCHC Auto (RBC) [Mass/Vol]Or dered By: Alex Weir on 01-29-2022 MCHC (RBC) [Mass/Vol] 32.1 g/dL 32-36 [facility] No Panel InformationOrdered By: Alex Weir on 01-29-2022 Estimated GFR (MDRD) Amer 96 mL/min >60 [facility] Comment on above: GFR Calc Estimated GFR (MDRD) Non-Af Amer 79 mL/min >60 [facility] Comment on above: Non- GFR Calc Platelets bldOrdered By: Kunal Weir on 01-29-2022 Platelets (Bld) [#/Vol] 486 10*3/uL 150-450 [facility] RBC morphologyOrdered By: Naida Weir on 01-29-2022 RBC morphology finding Nom (Bld) N CHROM NORMAL NORM C&C [facility] Serum or plasma albumin fiona urement (mass/volume)Ordered By: Alex Weir on 01-29-2022 Albumin [Mass/Vol] 2.4 g/dL 3.2-5.0 [facility] Serum or plasma albumin/glob ulin mass ratioOrdered By: Alex Weir on 01-29-2022 Albumin/Globulin [Mass ratio] 0.5 {ratio} 0.9-2.4 [facility] Serum or plasma calcium fiona urement (mass/volume)Ordered By: Alex Weir on 01-29-2022 Calcium [Mass/Vol] 9.4 mg/dL 8.5-10.1 [facility] Serum or plasma creatinine m easurement (mass/volume)Ordered By: Alex Weir on 01-29-2022 Creatinine [Mass/Vol] 0.76 mg/dL 0.55-1.02 [facility] Comment on above: The validity of the calculated GFR & GFRAA in patients over 70 years has not been determined. Clinical correlation is essential. Serum or plasma urea nitroge n measurement (mass/volume)Ordered By: Alex Weir on 01-29-2022 Urea nitrogen [Mass/Vol] 9 mg/dL 7-18 [facility] Thin prep Papanicolaou smear with manual screeningOrdered By: Alex Weir on 01-29-2022 Thin prep Papanicolaou smear with manual screening 16 U/L 15-37 [facility] Thin prep Papanicolaou smear with manual screening 8 5-15 [facility] Absolute lymphocyte counton 01-11-2022 Lymphocytes Auto (Unsp spec) [#/Vol] 0.80 10*3/uL 0.83-4.51 [facility] Work Phone: Basophil percentageon 2021 Basophils/100 WBC (Bld) 0.7 % 0-1 [facility] Work Phone: Bilirubin [Mass/Vol] 0.30 mg/dL 0.20-1.00 [facility] Work Phone: Comment on above: For patients on eltr ombopag therapy, use of Dimension [place] TBIL is not recommended. Chloride [Moles/Vol] 100 mmol/L 98-107 [facility] Work Phone: Eosinophils/100 WBC (Bld) 0.8 % 0-5 [facility] Work Phone: Glucose [Mass/Vol] 84 mg/dL 74-106 [facility] Work Phone: Neutrophils (Bld) [#/Vol] 6.7 10*3/uL 2.0-7.7 [facility] Work Phone: Neutrophils/100 WBC (Bld) 76.8 % 47-70 [facility] Work Phone: Potassium [Moles/Vol] 3.8 mmol/L 3.5-5.1 [facility] Work Phone: Protein [Mass/Vol] 7.0 g/dL 6.4-8.2 [facility] Work Phone: Sodium [Moles/Vol] 135 mmol/L 136-145 [facility] Work Phone: WBC (Bld) [#/Vol] 8.8 10*3/uL 4.4-11.0 [facility] Work Phone: Blood erythrocytes count (nu mber/volume)on 01-11-2022 RBC (Bld) [#/Vol] 2.73 10*6/uL 4.2-5.4 [facility] Work Phone: Blood hemoglobin measurement (mass/volume)on 01-11-2022 Hemoglobin (Bld) [Mass/Vol] 9.4 g/dL 12.0-15.0 [facility] Work Phone: Blood lymphocytes/100 leukoc yteson 01-11-2022 Lymphocytes/100 WBC (Bld) 9.1 % 19-41 [facility] Work Phone: [phone] Blood monocytes/100 leukocyt eson 01-11-2022 Monocytes/100 WBC (Bld) 11.8 % 0-10 [facility] Work Phone: Blood platelet adequacy dete ction by light microscopyon 01-11-2022 Platelets LM Ql (Bld) MKD INC ADEQ [facility] Work Phone: Blood platelet mean volumeon 01-11-2022 Platelet mean volume (Bld) [Entitic vol] 8.6 fL 6.2-12.0 [facility] Work Phone: Determination of erythrocyte mean corpuscular volume (MCV)on 01-11-2022 MCV (RBC) [Entitic vol] 107.0 fL 81-99 [facility] Work Phone: Hematocrit Auto (Bld) [Volum e fraction]on 01-11-2022 Hematocrit (Bld) [Volume fraction] 29.2 % 37-47 [facility] Work Phone: [phone] Laboratory - Chemistry and C hemistry - challengeon 01-11-2022 ALP [Catalytic activity/Vol] 148 U/L 45-117 [facility] Work Phone: ALT [Catalytic activity/Vol] 56 U/L 13-56 [facility] Work Phone: CO2 [Moles/Vol] 25.0 mmol/L 21.0-32.0 [facility] Work Phone: Globulin (S) [Mass/Vol] 5.2 g/dL 2.2-4.2 [facility] Work Phone: [phone] Urea nitrogen/Creatinine [Mass ratio] 8.5 mg/mg 10-20 [facility] Work Phone: Laboratory - Hematology and Cell countson 01-11-2022 Anisocytosis Ql (Bld) 1+ [facility] Work Phone: [phone] Erythrocyte distribution width (RBC) [Entitic vol] 65.2 fL 35.1-43.9 [facility] Work Phone: [phone] Erythrocyte distribution width (RBC) [Ratio] 16.7 % 11.6-14.6 [facility] Work Phone: Immature granulocytes/100 WBC (Bld) 0.800 % 0.0-0.9 [facility] Work Phone: Comment on above: IG% - Immature Granu locytes (promyelocytes, myelocytes and metamyelocytes) > 1% indicates that a LEFT SHIFT is Present. MCH (RBC) [Entitic mass] 34.4 pg 27.0-32.0 [facility] Work Phone: Nucleated RBC/100 WBC (Bld) [Ratio] 0 % 0-5 [facility] Work Phone: MCHC Auto (RBC) [Mass/Vol]on 01-11-2022 MCHC (RBC) [Mass/Vol] 32.2 g/dL 32-36 [facility] Work Phone: No Panel Informationon 01-11 Estimated GFR (MDRD) Amer 128 mL/min >60 [facility] Work Phone: Comment on above: GFR Calc Estimated GFR (MDRD) Non-Af Amer 106 mL/min >60 [facility] Work Phone: Comment on above: Non- GFR Calc Platelets bldon 01-11-2022 Platelets (Bld) [#/Vol] 846 10*3/uL 150-450 [facility] Work Phone: Comment on above: CRITICAL VALUE VERIF IED. CALLED TO LEANNA BAEZA ([facility])01/11/22 0834 [address] [place].RESULTS READ BACK BY SAME. Previous reported result: [id number] by: MICHELLE on 01/11/22:0834 AMENDED REPORT 01/11/22 0834 PLT previously reported as: 846 *H K/mm3 Review by pathologiston 12-24 Pathologist review Guy (Unsp spec) [Interp] Reviewed [facility] Work Phone: Comment on above: Previous reported re sult: Iqra reinaldo Edited by: ANDERSON on 01/12/22:1304Mild Macrocytic anemia.Thrombocytosis.Clinical correlation necessary.Chao Mathews M.D. 01/12/22 AMENDED REPORT 01/12/22 1304 PATH REV previously reported as: Iqra najera Serum or plasma albumin fiona urement (mass/volume)on 01-11-2022 Albumin [Mass/Vol] 1.8 g/dL 3.2-5.0 [facility] Work Phone: Serum or plasma albumin/glob ulin mass ratioon 01-11-2022 Albumin/Globulin [Mass ratio] 0.3 {ratio} 0.9-2.4 [facility] Work Phone: Serum or plasma calcium fiona urement (mass/volume)on 01-11-2022 Calcium [Mass/Vol] 8.7 mg/dL 8.5-10.1 [facility] Work Phone: Serum or plasma creatinine m easurement (mass/volume)on 01-11-2022 Creatinine [Mass/Vol] 0.59 mg/dL 0.55-1.02 [facility] Work Phone: Comment on above: The validity of the calculated GFR & GFRAA in patients over 70 years has not been determined. Clinical correlation is essential. Serum or plasma urea nitroge n measurement (mass/volume)on 01-11-2022 Urea nitrogen [Mass/Vol] 5 mg/dL 7-18 [facility] Work Phone: Thin prep Papanicolaou smear with manual screeningon 01-11-2022 Thin prep Papanicolaou smear with manual screening 41 U/L 15-37 [facility] Work Phone: Thin prep Papanicolaou smear with manual screening 10 5-15 [facility] Work Phone: Basic Metabolic Panelon 12-24 Calcium [Mass/Vol] 8.6 mg/dL Normal 8.4-10.4 [facility] Comment on above: Performed By: #### H EMDF, BMP3M #### [facility] [address], [place] Glucose [Mass/Vol] 86 mg/dL Normal 70-100 [facility] Comment on above: Performed By: #### H EMDF, BMP3M #### [facility] [employer] [facility] [address], [place] Urea nitrogen [Mass/Vol] 9 mg/dL Normal 9-20 [facility] Comment on above: Performed By: #### H EMDF, BMP3M #### [facility] [employer] [facility] [address], [place] Anion gap [Moles/Vol] 8 mmol/L Normal 3-13 [facility] Comment on above: Performed By: #### H EMDF, BMP3M #### [facility] [employer] [facility] [address], [place] CO2 [Moles/Vol] 23 mmol/L Normal 22-30 [facility] Comment on above: Performed By: #### H EMDF, BMP3M #### [facility] [address], [place] Creatinine [Mass/Vol] 0.55 mg/dL Normal 0.52-1.25 [facility] Comment on above: Performed By: #### H EMDF, BMP3M #### [facility] [address], [place] eGFR OTHER > 90.0 Normal >60 [facility] Comment on above: Result Comment: KDIG [...] Performed By: #### H LALA BMP3M #### [place] [address], [place] GFR/1.73 sq M.predicted among blacks MDRD (S/P/Bld) [Vol rate/Area] mL/min/{1.73_m2} Normal >60 [facility] Comment on above: Performed By: #### H LALA BMP3M #### [place] [address], [place] Chloride [Moles/Vol] 105 mmol/L Normal 98-107 [facility] Comment on above: Performed By: #### H LALA BMP3M #### [place] [address] [place] [place], [place] Potassium [Moles/Vol] 4.8 mmol/L Normal 3.5-5.1 [facility] Comment on above: Performed By: #### H LALA BMP3M #### [place] [address] [place], [place] Sodium [Moles/Vol] 136 mmol/L Normal 135-145 [facility] Comment on above: Performed By: #### H LALA BMP3M #### [place] [address], [place] Basic Metabolic Panel w/ Ref emmanuel [...] P INF mL/min [facility] EGFR IF NonAfrican Bhutanese mL/min 60 - PINF mL/min [facility] Glucose [Mass/Vol] 86 mg/dL 70 - 100 mg/dL [facility] Potassium [Moles/Vol] 4.8 mmol/L 3.5 - 5.1 mmol/L [facility] Sodium [Moles/Vol] 136 mmol/L 135 - 145 mmol/L [facility] Urea nitrogen (BldV) [Mass/Vol] 9 mg/dL 9 - 20 mg/dL [facility] CBC with Auto Differentialon [...] 11.2 g/dL Low 11.7 - 16 g/dL [facility] Interpretation and review of laboratory results [...] 10.8 10*3/uL High 3.6 - 10.7 10*3/uL [facility] COVID-19on 01-07-2022 SARS-CoV-2 (COVID-19) RNA LISE+probe Ql (Unsp spec) Not detected Not Detected [facility] CR Chest Portableon 01-08-20 22 CR Chest Portable Patient Name: JAIMIE MCGOVERN Diagnostic Radiology ACCESSION EXAM DATE/TIME PROCEDURE ORDERING PROVIDER [id number] 01/07/2022 06:40 EDT CR Chest Portable [id number] -NATHALIE, ANEIL CPT code 15119 Reason For Exam (CR Chest Portable) patient [...] Transcribed Date and Time: 01/07/2022 7:25 Normal [facility] Hemogram w/ Autodiffon 01-07 Abs Baso Cnt 0.1 10*3/uL Normal 0.0-0.2 [facility] Comment on above: Performed By: #### H LALA BMP3M #### [address] [address] Abs Neutrophile Cnt 8.9 10*3/uL High 1.8-7.0 [facility] Comment on above: Performed By: #### H LALA BMP3M #### [place] [address] [place] [address] Basophils/100 WBC (Bld) 0.6 % Normal 0.0-2.0 [facility] Comment on above: Performed By: #### H LALA BMP3M #### [address] [address] Eosinophils (Bld) [#/Vol] 0.1 10*3/uL Normal 0.0-0.5 [facility] Comment on above: Performed By: #### H EMDF BMP3M #### [place] [address] [place] [address] Eosinophils/100 WBC (Bld) 1.1 % Normal 1.0-6.0 [facility] Comment on above: Performed By: #### H EMDLavon BMP3M #### [address] [address] Granulocytes/100 WBC (Bld) 79.2 % Normal 40.0-80.0 [facility] Comment on above: Performed By: #### H EMDLavon BMP3M #### [address] Lymphocytes (Bld) [#/Vol] 0.9 10*3/uL Low 1.0-4.3 [facility] Comment on above: Performed By: #### H LALA BMP3M #### [facility] [address] [place] [address] Lymphocytes/100 WBC (Bld) 8.4 % Low 20.0-40.0 [facility] Comment on above: Performed By: #### H LALA BMP3M #### [place] [address], [place] Monocytes (Bld) [#/Vol] 1.2 10*3/uL High 0.0-0.8 [facility] Comment on above: Performed By: #### H LALA BMP3M #### [place] [address], [place] Monocytes/100 WBC (Bld) 10.7 % High 2.0-10.0 [facility] Comment on above: Performed By: #### H LALA BMP3M #### [place] [address], [place] Erythrocyte distribution width (RBC) [Ratio] 18.6 % High 11.5-14.5 [facility] Comment on above: Performed By: #### H LALA BMP3M #### [place] [address], [place] Hematocrit (Bld) [Volume fraction] 34.9 % Low 35.0-47.0 [facility] Comment on above: Performed By: #### H LALA BMP3M #### [place] [address], [place] Hemoglobin (Bld) [Mass/Vol] 11.2 g/dL Low 11.7-16.0 [facility] Comment on above: Performed By: #### H LALA BMP3M #### [place] [address], [place] MCH (RBC) [Entitic mass] 34.1 pg High 26.0-34.0 [facility] Comment on above: Performed By: #### H LALA BMP3M #### [place] [address] [place] MCHC 32.1 % Normal 32.0-36.0 [facility] Comment on above: Performed By: #### H LALA BMP3M #### [place] [address], [place] MCV (RBC) [Entitic vol] 106.4 fL High 79.0-98.0 [facility] Comment on above: Performed By: #### H LALA BMP3M #### [place] [address], [place] Platelet mean volume (Bld) [Entitic vol] 7.3 fL Low 7.4-12.4 [facility] Comment on above: Result Comment: MPV is a calculated measurement using platelet volume ratio. Performed By: #### Micheal REEVES BMP3M #### [place] [address], [place] Platelets (Bld) [#/Vol] 725 10*3/uL High 140-440 [facility] Comment on above: Performed By: #### Micheal REEVES BMP3M #### [place] [address], [place] RBC (Bld) [#/Vol] 3.28 10*6/uL Low 3.80-5.20 [facility] Comment on above: Performed By: #### Micheal REEVES BMP3M #### [place] [address], [place] WBC (Bld) [#/Vol] 10.8 10*3/uL High 3.6-10.7 [facility] Comment on above: Performed By: #### Micheal REEVES BMP3M #### [place] [address] [place], [place] No Panel Informationon 01-07 Radiology Study observation (narrative) [facility] Work Phone: [id number] 01-07-2022 SARS-CoV-2 (COVID-19) RNA LISE+probe Ql (Unsp spec) SARS-CoV-2 --> Status: F Not Detected. Expected result: Not Detected _ Method: Real-time, RT-PCR Negative results do not preclude SARS-CoV-2 infection and should not be used as the sole basis for treatment or other patient management decisions. This assay was developed by [employer] and distributed under an Emergency Use Authorization (EUA) granted by the [facility] for the qualitative detection of SARS-CoV-2 nucleic acid. Provider and patient fact sheets can be found at https://www.[facility].gov/ edia/885396/download and https://www.[employer].gov/ edia/798008/download. Expected result: Not Detected _ Method: Real-time, RT-PCR Negative results do not preclude SARS-CoV-2 infection and should not be used as the sole basis for treatment or other patient management decisions. This assay was developed by [employer] and distributed under an Emergency Use Authorization (EUA) granted by the FDA for the qualitative detection of SARS-CoV-2 nucleic acid. Provider and patient fact sheets can be found at https://www.[employer].gov/ edia/317435/download and https://www.[employer].gov/ [employer]/021776/download. Normal [facility] Comment on above: Performed By: #### B MP3M, HEMDF, MG3, PHOS3, PCAL #### [facility] [address] [place] [address] VL LOWER EXTREMITY BILATERAL VENOUS DUPLEXon 01-07-2022 [facility] Work Phone: VL LOWER EXTREMITY BILATERAL VENOUS DUPLEXOrdered By: Rob Combs on 01-07-2022 [facility] Work Phone: VL Venous Duplex US Lower Ex t Bilateralon 01-07-2022 VL Venous Duplex US Lower Ext Bilateral Patient Name: JAIMIE MCGOVERN Ultrasound ACCESSION EXAM DATE/TIME PROCEDURE ORDERING PROVIDER [id number] 01/07/2022 14:19 EDT VL Venous Duplex US [id number] -NATHALIE, ANEIL Lower Ext Bilateral CPT code 26288 Reason For Exam (VL Venous Duplex US Lower Ext Bilateral) edema Report [facility] -------- Lower Extremity Venous Duplex Report Patient Olimpia, : 1945 Study 01/07/2022 Name: Jaimie (76yrs) Date: Patient [id number] Age: 76 Account: [id number] ID: Gender: F Loc: 6104 BP: Ordering Physician: Blayne Zelaya Chief Recordist: Carolina Mccormack RVT Interpreting Physician: Rob Combs MD -------- Location: [facility] -------- Indications: BLE edema. -------- Conclusions [...] supine position. Images were obtained using a [employer] vascular ultrasound machine. -------- Ultrasound Report Venous [...] peroneal +Patent (more content not included)... Normal [facility] XR CHEST PORTABLEon 01-08-20 22 [facility] [employer] Work Phone: XR CHEST PORTABLEOrdered By: Jack Blankenship on 01-07-2022 [facility] Work Phone: Basic Metabolic Panelon 12-24 Anion gap [Moles/Vol] 8 mmol/L Normal 3-13 [facility] Comment on above: Performed By: #### H LALA BMP3M ####[facility] [employer] [id number] [place] [address] Calcium [Mass/Vol] 8.4 mg/dL Normal 8.4-10.4 [facility] Comment on above: Performed By: #### H LALA BMP3M ####[facility] [employer] [id number] [place] [address] CO2 [Moles/Vol] 22 mmol/L Normal 22-30 [facility] Comment on above: Performed By: #### H LALA BMP3M ####[facility] [place], [place] Creatinine [Mass/Vol] 0.60 mg/dL Normal 0.52-1.25 [facility] Comment on above: Performed By: #### H LALA BMP3M ####[place] [address] [place], [place] GFR/1.73 sq M.predicted among blacks MDRD (S/P/Bld) [Vol rate/Area] mL/min/{1.73_m2} Normal >60 [facility] Comment on above: Performed By: #### H LALA BMP3M ####[address] [place] [address] [place], [place] GFR/1.73 sq M.predicted among non-blacks MDRD (S/P/Bld) [Vol rate/Area] 89.5 mL/min/{1.73_m2} Normal >60 [facility] Comment on above: Result Comment: KDIG [...] secretion. Performed By: #### H LALA BMP3M ####[address] [place], [place] Glucose [Mass/Vol] 107 mg/dL High 70-100 [facility] Comment on above: Performed By: #### H LALA BMP3M ####[facility] [place] [address] Urea nitrogen [Mass/Vol] 8 mg/dL Low 9-20 [facility] Comment on above: Performed By: #### H LALA BMP3M ####[facility] [place] [address] Chloride [Moles/Vol] 107 mmol/L Normal 98-107 [facility] Comment on above: Performed By: #### H LALA BMP3M ####[facility] [place] [address] Potassium [Moles/Vol] 4.2 mmol/L Normal 3.5-5.1 [facility] Comment on above: Performed By: #### H LALA BMP3M ####[facility] [place] [address] Sodium [Moles/Vol] 137 mmol/L Normal 135-145 [facility] Comment on above: Performed By: #### H LALA BMP3M ####[place] [address] [place] [address] Basic Metabolic Panel w/ Ref emmanuel to [...] P INF mL/min [facility] EGFR IF NonAfrican Bhutanese 89.5 mL/min 60 - PINF mL/min [facility] Glucose [Mass/Vol] 107 mg/dL High 70 - 100 mg/dL [facility] Interpretation and review of laboratory results Abnormal [facility] Potassium [Moles/Vol] 4.2 mmol/L 3.5 - 5.1 mmol/L [facility] Sodium [Moles/Vol] 137 mmol/L 135 - 145 mmol/L [facility] Urea nitrogen (BldV) [Mass/Vol] 8 mg/dL Low 9 - 20 mg/dL [facility] CBC with Auto Differentialon 01-06-2022 Absolute Baso [...] 10.9 g/dL Low 11.7 - 16 g/dL [facility] Interpretation and review of laboratory results [...] 3.17 10*6/uL Low 3.8 - 5.2 10*6/uL [facility] WBC (Bld) [#/Vol] 12.3 10*3/uL High 3.6 - 10.7 10*3/uL [facility] CR Chest Portableon 01-07-20 CR Chest Portable Patient Name: JAIMIE MCGOVERN Diagnostic Radiology ACCESSION EXAM DATE/TIME PROCEDURE ORDERING PROVIDER [id number] 01/06/2022 06:48 EDT CR Chest Portable [id number] -NATHALIE, ANEIL CPT code 03383 Reason For Exam (CR Chest Portable) patient [...] Transcribed Date and Time: 01/06/2022 8:25 Normal [facility] Culture, Body Fluidon 2021 Body Fluid Cult/Smear, Aerobic No growth at 5 days. [facility] Gram Stain Result [facility] w/ Autodiffon 01-06 Abs Baso Cnt 0.2 10*3/uL Normal 0.0-0.2 [facility] Comment on above: Performed By: #### H EMDF, BMP3M ####[facility] [place] [place] [address] Abs Neutrophile Cnt 10.5 10*3/uL High 1.8-7.0 [facility] Comment on above: Performed By: #### H LALA BMP3M ####[facility] [id number] [place] [place] [place] [address] Basophils/100 WBC (Bld) 1.4 % Normal 0.0-2.0 [facility] Comment on above: Performed By: #### H EMDLavon BMP3M ####[address] [place] [address] Eosinophils (Bld) [#/Vol] 0.1 10*3/uL Normal 0.0-0.5 [facility] Comment on above: Performed By: #### H LALA BMP3M ####[address] [place] [address] Eosinophils/100 WBC (Bld) 0.9 % Low 1.0-6.0 [facility] Comment on above: Performed By: #### H LALA BMP3M ####[address] [place] [address] Granulocytes/100 WBC (Bld) 83.1 % High 40.0-80.0 [facility] Comment on above: Performed By: #### H EMDLavon BMP3M ####[address] [place] [address] Lymphocytes (Bld) [#/Vol] 0.8 10*3/uL Low 1.0-4.3 [facility] Comment on above: Performed By: #### H EMDF BMP3M ####[address] [place] [address] Lymphocytes/100 WBC (Bld) 6.3 % Low 20.0-40.0 [facility] Comment on above: Performed By: #### H EMDF BMP3M ####[address] [place] [address] Monocytes (Bld) [#/Vol] 1.0 10*3/uL High 0.0-0.8 [facility] Comment on above: Performed By: #### H MAGDALENA REEVES3M ####[address] Monocytes/100 WBC (Bld) 8.3 % Normal 2.0-10.0 [facility] Comment on above: Performed By: #### H MAGDALENA REEVES3M ####[address] Erythrocyte distribution width (RBC) [Ratio] 17.8 % High 11.5-14.5 [facility] Comment on above: Performed By: #### H MAGDALENA REEVES3M ####[address] Hematocrit (Bld) [Volume fraction] 33.4 % Low 35.0-47.0 [facility] Comment on above: Performed By: #### MAGDALENA BOBO3M ####[address] Hemoglobin (Bld) [Mass/Vol] 10.9 g/dL Low 11.7-16.0 [facility] Comment on above: Performed By: #### H MAGDALENA REEVES3M ####[address] MCH (RBC) [Entitic mass] 34.5 pg High 26.0-34.0 [facility] Comment on above: Performed By: #### H LALA BMP3M ####[address] MCHC 32.7 % Normal 32.0-36.0 [facility] Comment on above: Performed By: #### H LALA BMP3M ####[address] MCV (RBC) [Entitic vol] 105.5 fL High 79.0-98.0 [facility] Comment on above: Performed By: #### H LALA BMP3M ####[address] [place], [place] Platelet mean volume (Bld) [Entitic vol] 7.3 fL Low 7.4-12.4 [facility] Comment on above: Result Comment: MPV is a calculated measurement using platelet volume ratio. Performed By: #### H LALA BMP3M ####[facility] [employer] [id number] [place], [place] Platelets (Bld) [#/Vol] 647 10*3/uL High 140-440 [facility] Comment on above: Performed By: #### H LALA BMP3M ####[facility] [employer] [id number] [place], [place] RBC (Bld) [#/Vol] 3.17 10*6/uL Low 3.80-5.20 [facility] Comment on above: Performed By: #### H EMDLavon BMP3M ####[facility] [employer] [id number] [place], [place] WBC (Bld) [#/Vol] 12.3 10*3/uL High 3.6-10.7 [facility] Comment on above: Performed By: #### H LALA BMP3M ####[facility] [employer] [id number] [place], [place] No Panel Informationon 01-06 Radiology Study observation (narrative) [facility] Work Phone: US GUIDE THORACENTESISon [facility] Work Phone: [facility] Work Phone: US Thora-Aspir Pleura w/ Shawanda geon 01-06-2022 US Thora-Aspir Pleura w/ Image Patient Name: JAIMIE MCGOVERN Ultrasound ACCESSION EXAM DATE/TIME PROCEDURE ORDERING PROVIDER [id number] 01/06/2022 15:22 EDT US Thora-Aspir Pleura w/ [id number] -PATRICK, MELY Image CPT code 06827 Reason For Exam (US Thora-Aspir Pleura w/ [...] Transcribed Date and Time: 01/06/2022 4:09 Normal natue XR CHEST PORTABLEon 01-07-[address] [facility] [employer] [facility] [employer] Work Phone: [facility] Work Phone: Add On Lab Teston 01-05-2022 Add On Accepted [facility] Add on test from HISon 01-05 Add on test from HIS Accepted Normal [facility] Comment on above: Result Comment: Spec imen available & acceptable for analysis. Performed By: #### A DDON ####[facility] [place], [place] Basic Metabolic Panelon 12-24 Calcium [Mass/Vol] 8.0 mg/dL Low 8.4-10.4 [facility] Comment on above: Performed By: #### H EMDF BMP3M #### [facility] [address] [place], [place] Anion gap [Moles/Vol] 8 mmol/L Normal 07-05 [facility] Comment on above: Performed By: #### H EMDF BMP3M #### [facility] [address] [place], [place] CO2 [Moles/Vol] 17 mmol/L Low - [facility] Comment on above: Performed By: #### H EMDF BMP3M #### [facility] [address] [place], [place] Creatinine [Mass/Vol] 0.46 mg/dL Low 0.52-1.25 [facility] Comment on above: Performed By: #### H EMDF BMP3M #### [facility] [address] [place], [place] eGFR OTHER > 90.0 Normal >60 [facility] Comment on above: Result Comment: KDIG [...] secretion. Performed By: #### MAGDALENA BOBO3M #### [address] [place], [place] GFR/1.73 sq M.predicted among blacks MDRD (S/P/Bld) [Vol rate/Area] mL/min/{1.73_m2} Normal >60 [facility] Comment on above: Performed By: #### H MAGDALENA REEVES3M #### [address] [place], [place] Glucose [Mass/Vol] 64 mg/dL Low 70-100 [facility] Comment on above: Performed By: #### Micheal REEVES BMP3M #### [address] [place], [place] Urea nitrogen [Mass/Vol] 6 mg/dL Low 9-20 [facility] Comment on above: Performed By: #### MAGDALENA BOBO3M #### [address] [place], [place] Chloride [Moles/Vol] 108 mmol/L High 98-107 [facility] Comment on above: Performed By: #### Micheal REEVES BMP3M #### [address] [place], [place] Potassium [Moles/Vol] 4.7 mmol/L Normal 3.5-5.1 [facility] Comment on above: Performed By: #### Micheal REEVES BMP3M #### [address] [place] Sodium [Moles/Vol] 133 mmol/L Low 135-145 [facility] Comment on above: Performed By: #### Micheal REEVES BMP3M #### [address] [place], [place] Basic Metabolic Panel w/ Ref emmanuel [...] P INF mL/min [facility] EGFR IF NonAfrican Bhutanese mL/min 60 - PINF mL/min [facility] Glucose [Mass/Vol] 64 mg/dL Low 70 - 100 mg/dL [facility] Interpretation and review of laboratory results Abnormal [facility] Potassium [Moles/Vol] 4.7 mmol/L 3.5 - 5.1 mmol/L [facility] Sodium [Moles/Vol] 133 mmol/L Low 135 - 145 mmol/L [facility] Urea nitrogen (BldV) [Mass/Vol] 6 mg/dL Low 9 - 20 mg/dL [facility] CBC with Auto Differentialon [...] 11.6 g/dL Low 11.7 - 16 g/dL [facility] Interpretation and review of laboratory results [...] 13.4 10*3/uL High 3.6 - 10.7 10*3/uL [facility] CR Chest Portableon 01-06-20 CR Chest Portable Patient Name: JAIMIE MCGOVERN Diagnostic Radiology ACCESSION EXAM DATE/TIME PROCEDURE ORDERING PROVIDER [id number] 01/05/2022 06:51 EDT CR Chest Portable [id number] -NATHALIE, ANEIL CPT code 52437 Reason For Exam (CR Chest Portable) patient [...] Transcribed Date and Time: 01/05/2022 9:19 Normal [facility] Hemogram w/ Autodiffon 01-05 Abs Baso Cnt 0.0 10*3/uL Normal 0.0-0.2 [facility] Comment on above: Performed By: #### H EMDF BMP3M #### [facility] [address] [place], [place] Abs Neutrophile Cnt 11.3 10*3/uL High 1.8-7.0 [facility] Comment on above: Performed By: #### H EMDF, BMP3M #### [address] [place], [place] Basophils/100 WBC (Bld) 0.3 % Normal 0.0-2.0 [facility] Comment on above: Performed By: #### H EMDF, BMP3M #### [facility] [address] [place], [place] Eosinophils (Bld) [#/Vol] 0.1 10*3/uL Normal 0.0-0.5 [facility] Comment on above: Performed By: #### H EMDF, BMP3M #### [facility] [address] [place], [place] Eosinophils/100 WBC (Bld) 1.1 % Normal 1.0-6.0 [facility] Comment on above: Performed By: #### H EMDF, BMP3M #### [facility] [address] [place], [place] Erythrocyte distribution width (RBC) [Ratio] 18.1 % High 11.5-14.5 [facility] Comment on above: Performed By: #### H MAGDALENA REEVES3M #### [address] [place] Granulocytes/100 WBC (Bld) 84.2 % High 40.0-80.0 [facility] Comment on above: Performed By: #### H MAGDALENA REEVES3M #### [address] [place] Hematocrit (Bld) [Volume fraction] 35.7 % Normal 35.0-47.0 [facility] Comment on above: Performed By: #### H MAGDALENA REEVES3M #### [address] [place] Hemoglobin (Bld) [Mass/Vol] 11.6 g/dL Low 11.7-16.0 [facility] Comment on above: Performed By: #### H MAGDALENA REEVES3M #### [address] [place] Lymphocytes (Bld) [#/Vol] 0.8 10*3/uL Low 1.0-4.3 [facility] Comment on above: Performed By: #### Micheal REEVES BMP3M #### [address] [place] Lymphocytes/100 WBC (Bld) 6.0 % Low 20.0-40.0 [facility] Comment on above: Performed By: #### H LALA BMP3M #### [address] [place] MCH (RBC) [Entitic mass] 35.4 pg High 26.0-34.0 [facility] Comment on above: Performed By: #### H LALA BMP3M #### [address] [place] MCHC 32.6 % Normal 32.0-36.0 [facility] Comment on above: Performed By: #### Micheal REEVES BMP3M #### [address] [place] MCV (RBC) [Entitic vol] 108.5 fL High 79.0-98.0 [facility] Comment on above: Performed By: #### H LALA BMP3M #### [address] Monocytes (Bld) [#/Vol] 1.1 10*3/uL High 0.0-0.8 [facility] Comment on above: Performed By: #### H LALA BMP3M #### [address] [place] Monocytes/100 WBC (Bld) 8.4 % Normal 2.0-10.0 [facility] Comment on above: Performed By: #### H LALA BMP3M #### [address] Platelet mean volume (Bld) [Entitic vol] 7.1 fL Low 7.4-12.4 [facility] Comment on above: Result Comment: MPV is a calculated measurement using platelet volume ratio. Performed By: #### H LALA BMP3M #### [address] Platelets (Bld) [#/Vol] 500 10*3/uL High 140-440 [facility] Comment on above: Performed By: #### H LALA BMP3M #### [address] RBC (Bld) [#/Vol] 3.29 10*6/uL Low 3.80-5.20 [facility] Comment on above: Performed By: #### H LALA BMP3M #### [address] WBC (Bld) [#/Vol] 13.4 10*3/uL High 3.6-10.7 [facility] Comment on above: Performed By: #### H LALA BMP3M #### [address] Hepatic Functionon 2 ALP [Catalytic activity/Vol] 94 U/L Normal 38-126 [facility] Comment on above: Result Comment: Slig htly hemolysed, interpret with caution. Performed By: #### H LALA BMP3M #### [facility] [address] [place], [place] ALT [Catalytic activity/Vol] 23 U/L Normal 0-34 [facility] Comment on above: Result Comment: The ALT test is performed by an updated assay method. Please note that the reference intervals have been changed and are now sex specific. Performed By: #### H LALA BMP3M #### [address] [place] AST [Catalytic activity/Vol] 55 U/L High 15-46 [facility] Comment on above: Result Comment: Slig htly hemolysed, interpret with caution. Performed By: #### H LALA BMP3M #### [address] [place] Bilirubin [Mass/Vol] 0.7 mg/dL Normal 0.2-1.3 [facility] Comment on above: Performed By: #### H LALA BMP3M #### [address] [place] Bilirubin.indirect [Mass/Vol] 0.0 mg/dL Normal 0.0-0.3 [facility] Comment on above: Performed By: #### H LALA BMP3M #### [facility] [address] [place] Protein [Mass/Vol] 5.5 g/dL Low 6.3-8.2 [facility] Comment on above: Performed By: #### H LALA BMP3M #### [address] [place] Albumin [Mass/Vol] 3.0 g/dL Low 3.5-5.0 [facility] Comment on above: Performed By: #### H LALA BMP3M #### [address] [place] [address] Hepatic Function Panelon Albumin [Mass/Vol] 3.0 g/dL Low 3.5 - 5 g/dL [facility] ALP (Bld) [Catalytic activity/Vol] 94 U/L 38 - 126 U/L [facility] ALT [Catalytic activity/Vol] 23 U/L 0 - 34 U/L [facility] AST [Catalytic activity/Vol] 55 U/L High 15 - 46 U/L [facility] Bilirubin [Mass/Vol] 0.7 mg/dL 0.2 - 1 .3 mg/dL [facility] Bilirubin.indirect [Mass/Vol] 0.0 mg/dL 0 - 0.3 mg/dL [facility] Free PSA/Total PSA [Mass fraction] 5.5 g/dL Low 6.3 - 8.2 g/dL [facility] Interpretation and review of laboratory results Abnormal [facility] Procalcitoninon 01-05-2022 Procalcitonin 14.05 ng/mL High 0.00-0.09 [facility] Comment on above: Performed By: #### H EMDF, BMP3M #### [facility] [address] [place] [address] Interpretation See Below [facility] Interpretation and review of laboratory results Abnormal [facility] Procalcitonin 14.05 ng/mL High 0 - 0.09 ng/mL [facility] XR CHEST PORTABLEon 01-06-20 22 [facility] Work Phone: [facility] Work Phone: Radiology Study observation (narrative) [facility] Work Phone: Add On Lab Teston 01-04-2022 Add On Accepted [facility] Add on test from HISon 01-04 Add on test from HIS Accepted Normal [facility] Comment on above: Result Comment: Spec imen available & acceptable for analysis. Performed By: #### A DDON ####[facility] [place] [address] Albumin, Body Fluidon 2021 Fluid Type Thoracentesis Normal [facility] Comment on above: Performed By: #### B MP3M, HEMDF, MG3, PHOS3, PCAL #### [address] [place] Albumin [Mass/Vol] 1.3 g/dL Normal No Range [facility] Comment on above: Performed By: #### B MP3M, HEMDF, MG3, PHOS3, PCAL #### [address] [place], [place] Albumin, Fluid 1.3 g/dL No Range [facility] Fluid Type Thoracentesis [facility] Basic Metabolic Panelon 12-24-2021 Anion gap [Moles/Vol] 8 mmol/L Normal 3-13 [facility] Comment on above: Performed By: #### B MP3M, HEMDF, MG3, PHOS3, PCAL #### [address] [place] Calcium [Mass/Vol] 7.9 mg/dL Low 8.4-10.4 [facility] Comment on above: Performed By: #### B MP3M, HEMDF, MG3, PHOS3, PCAL #### [address] [place] CO2 [Moles/Vol] 22 mmol/L Normal 22-30 [facility] Comment on above: Performed By: #### B MP3M, HEMDF, MG3, PHOS3, PCAL #### [address] [place] Creatinine [Mass/Vol] 0.49 mg/dL Low 0.52-1.25 [facility] Comment on above: Performed By: #### B MP3M, HEMDF, MG3, PHOS3, PCAL #### [address] [place] eGFR OTHER > 90.0 Normal >60 [facility] Comment on above: Result Comment: KDIG [...] B MP3M, HEMDF, MG3, PHOS3, PCAL #### [address] [address] GFR/1.73 sq M.predicted among blacks MDRD (S/P/Bld) [Vol rate/Area] mL/min/{1.73_m2} Normal >60 [facility] Comment on above: Performed By: #### B MP3M, HEMDF, MG3, PHOS3, PCAL #### [address] [place] [address] Glucose [Mass/Vol] 101 mg/dL High 70-100 [facility] Comment on above: Performed By: #### B MP3M, HEMDF, MG3, PHOS3, PCAL #### [address] [address] Urea nitrogen [Mass/Vol] 10 mg/dL Normal 9-20 [facility] Comment on above: Performed By: #### B MP3M, HEMDF, MG3, PHOS3, PCAL #### [address] [place] [address] Chloride [Moles/Vol] 108 mmol/L High 98-107 [facility] Comment on above: Performed By: #### B MP3M, HEMDF, MG3, PHOS3, PCAL #### [address] [place] [address] Potassium [Moles/Vol] 4.0 mmol/L Normal 3.5-5.1 [facility] Comment on above: Performed By: #### B MP3M, HEMDF, MG3, PHOS3, PCAL #### [facility] [address] [place] [address] Sodium [Moles/Vol] 137 mmol/L Normal 135-145 [facility] Comment on above: Performed By: #### B MP3M, HEMDF, MG3, PHOS3, PCAL #### [facility] [address] [place] [address] Basic Metabolic Panel w/ Ref emmanuel to [...] P INF mL/min [facility] EGFR IF NonAfrican Bhutanese mL/min 60 - PINF mL/min [facility] Glucose [Mass/Vol] 101 mg/dL High 70 - 100 mg/dL [facility] Interpretation and review of laboratory results Abnormal [facility] Potassium [Moles/Vol] 4.0 mmol/L 3.5 - 5.1 mmol/L [facility] Sodium [Moles/Vol] 137 mmol/L 135 - 145 mmol/L [facility] Urea nitrogen (BldV) [Mass/Vol] 10 mg/dL 9 - 20 mg/dL [facility] CBC with Auto Differentialon [...] [#/Vol] 10.0 10*3/uL 3.6 - 10.7 10*3/uL [facility] CR Chest Portableon 01-05-20 CR Chest Portable Patient Name: JAIMIE MCGOVERN Diagnostic Radiology ACCESSION EXAM DATE/TIME PROCEDURE ORDERING PROVIDER [id number] 01/04/2022 06:30 EDT CR Chest Portable [id number] -NATHALIE, ANEIL CPT code 93903 Reason For Exam (CR Chest Portable) patient [...] Transcribed Date and Time: 01/04/2022 6:36 Normal [facility] Glucose,Bedsideon 01-04-2022 Glucose [Mass/Vol] 157 mg/dL High 70-100 [facility] Work Phone: Comment on above: Result Comment: Test performed by glucose meter. Results may be 10%-15% lower than serum/plasma values. (CLIA ID [id number]) Performed By: #### B GLU #### [address] [place] [address] Glucose [Mass/Vol] 104 mg/dL High 70-100 [facility] Comment on above: Result Comment: Test performed by glucose meter. Results may be 10%-15% lower than serum/plasma values. (CLIA ID [id number]) Performed By: #### H EMDF, BMP3M #### [facility] [address] [place] [address] Glucose [Mass/Vol] 91 mg/dL Normal 70-100 [facility] Comment on above: Result Comment: Test performed by glucose meter. Results may be 10%-15% lower than serum/plasma values. (CLIA ID [id number]) Performed By: #### B GLU ####[facility] [place], [place] Hemogram w/ Autodiffon 01-04 Abs Baso Cnt 0.0 10*3/uL Normal 0.0-0.2 [facility] Comment on above: Performed By: #### B MP3M, HEMDF, MG3, PHOS3, PCAL #### [facility] [address] [place], [place] Abs Neutrophile Cnt 8.3 10*3/uL High 1.8-7.0 [facility] Comment on above: Performed By: #### B MP3M, HEMDF, MG3, PHOS3, PCAL #### [address] [place], [place] Basophils/100 WBC (Bld) 0.4 % Normal 0.0-2.0 [facility] Comment on above: Performed By: #### B MP3M, HEMDF, MG3, PHOS3, PCAL #### [address] [place] Eosinophils (Bld) [#/Vol] 0.2 10*3/uL Normal 0.0-0.5 [facility] Comment on above: Performed By: #### B MP3M, HEMDF, MG3, PHOS3, PCAL #### [address] [place] Eosinophils/100 WBC (Bld) 2.2 % Normal 1.0-6.0 [facility] Comment on above: Performed By: #### B MP3M, HEMDF, MG3, PHOS3, PCAL #### [address] [place] Erythrocyte distribution width (RBC) [Ratio] 17.2 % High 11.5-14.5 [facility] Comment on above: Performed By: #### B MP3M, HEMDF, MG3, PHOS3, PCAL #### [address] [address] [place] Granulocytes/100 WBC (Bld) 83.2 % High 40.0-80.0 [facility] Comment on above: Performed By: #### B MP3M, HEMDF, MG3, PHOS3, PCAL #### [address] [place] Hematocrit (Bld) [Volume fraction] 30.9 % Low 35.0-47.0 [facility] Comment on above: Performed By: #### B MP3M, HEMDF, MG3, PHOS3, PCAL #### [address] [address] [place] Hemoglobin (Bld) [Mass/Vol] 10.7 g/dL Low 11.7-16.0 [facility] Comment on above: Performed By: #### B MP3M, HEMDF, MG3, PHOS3, PCAL #### [address] Lymphocytes (Bld) [#/Vol] 0.7 10*3/uL Low 1.0-4.3 [facility] Comment on above: Performed By: #### B MP3M, HEMDF, MG3, PHOS3, PCAL #### [address] Lymphocytes/100 WBC (Bld) 6.5 % Low 20.0-40.0 [facility] Comment on above: Performed By: #### B MP3M, HEMDF, MG3, PHOS3, PCAL #### [address] MCH (RBC) [Entitic mass] 36.5 pg High 26.0-34.0 [facility] Comment on above: Performed By: #### B MP3M, HEMDF, MG3, PHOS3, PCAL #### [address] MCHC 34.6 % Normal 32.0-36.0 [facility] Comment on above: Performed By: #### B MP3M, HEMDF, MG3, PHOS3, PCAL #### [address] MCV (RBC) [Entitic vol] 105.6 fL High 79.0-98.0 [facility] Comment on above: Performed By: #### B MP3M, HEMDF, MG3, PHOS3, PCAL #### [address] [place], [place] Monocytes (Bld) [#/Vol] 0.8 10*3/uL Normal 0.0-0.8 [facility] Comment on above: Performed By: #### B MP3M, HEMDF, MG3, PHOS3, PCAL #### [address] [address] [place] Monocytes/100 WBC (Bld) 7.7 % Normal 2.0-10.0 [facility] Comment on above: Performed By: #### B MP3M, HEMDF, MG3, PHOS3, PCAL #### [address] [address] [place] Platelet mean volume (Bld) [Entitic vol] 7.5 fL Normal 7.4-12.4 [facility] Comment on above: Result Comment: MPV is a calculated measurement using platelet volume ratio. Performed By: #### B MP3M, HEMDF, MG3, PHOS3, PCAL #### [address] [address] [place] Platelets (Bld) [#/Vol] 451 10*3/uL High 140-440 [facility] Comment on above: Performed By: #### B MP3M, HEMDF, MG3, PHOS3, PCAL #### [address] [place] RBC (Bld) [#/Vol] 2.93 10*6/uL Low 3.80-5.20 [facility] Comment on above: Performed By: #### B MP3M, HEMDF, MG3, PHOS3, PCAL #### [address] WBC (Bld) [#/Vol] 10.0 10*3/uL Normal 3.6-10.7 [facility] Comment on above: Performed By: #### B MP3M, HEMDF, MG3, PHOS3, PCAL #### [facility] [address] [place] [address] Magnesiumon 01-04-2022 Magnesium [Mass/Vol] 2.1 mg/dL Normal 1.6-2.3 [facility] Comment on above: Performed By: #### B MP3M, HEMDF, MG3, PHOS3, PCAL #### [facility] [address] [place] [address] Magnesium [Mass/Vol] 2.1 mg/dL 1.6 - 2 .3 mg/dL [facility] No Panel InformationOrdered By: Johnny Salas on 01-04-2022 Interpretation and review of laboratory results Abnormal [facility] Work Phone: [phone] [facility] Work Phone: [phone] Panel Informationon 01-04 [facility] C[facility] Radiology Study observation (narrative) [facility] Work Phone: POCT Glucoseon 01-04-2022 Interpretation and review of laboratory results Abnormal [facility] Work Phone: [facility] Work Phone: [facility] Glucose [Mass/Vol] 91 mg/dL 70 - 100 mg/dL [facility] Work Phone: [facility] Work Phone: POCT GlucoseOrdered By: Isra Salas on 01-04-2022 Glucose [Mass/Vol] 104 mg/dL High 70 - 100 mg/dL [facility] Work Phone: Phosphoruson 01-04-2022 Phosphate [Mass/Vol] 4.6 mg/dL High 2.5-4.5 [facility] Comment on above: Performed By: #### B MP3M, HEMDF, MG3, PHOS3, PCAL #### [facility] [address] [place] [address] Interpretation and review of laboratory results Abnormal [facility] Phosphate [Mass/Vol] 4.6 mg/dL High 2.5 - 4 .5 mg/dL [facility] Procalcitoninon 01-04-2022 Procalcitonin 15.03 ng/mL High 0.00-0.09 [facility] Comment on above: Performed By: #### B MP3M, HEMDF, MG3, PHOS3, PCAL #### [facility] [address] [place] [address] Interpretation See Below Normal [facility] Comment on above: Result Comment: PCT <0.50 = Low risk of severe sepsis and/or septic shock. PCT >2.00 = High risk of severe sepsis and/or septic shock. Performed By: #### B MP3M, HEMDF, MG3, PHOS3, PCAL #### [facility] [address] [place] [address] US ABDOMEN LIMITEDon 022 [facility] Work Phone: US ABDOMEN LIMITEDOrdered By : Froilan Elam on 01-04-2022 [facility] Work Phone: US Abdomen Limitedon 022 US Abdomen Limited Patient Name: JAIMIE MCGOVERN Ultrasound ACCESSION EXAM DATE/TIME PROCEDURE ORDERING PROVIDER [id number] 01/04/2022 16:53 EDT US Abdomen Limited [id number] KOLBY MELY CPT code 64626 Reason For Exam (US Abdomen Limited) ascites [...] Transcribed Date and Time: 01/04/2022 11:46 Normal [facility] VL DUP LOWER EXTREMITY VENOU S BILATERALon 01-04-2022 [facility] Work Phone: [facility] Work Phone: [phone] XR CHEST PORTABLEon 01-05-20 22 [facility] Work Phone: [phone] [facility] Work Phone: Basic Metabolic Panelon 12-24 Calcium [Mass/Vol] 7.8 mg/dL Low 8.4-10.4 [facility] Comment on above: Performed By: #### B MP3M, LFT3, HEMDF ####[id number] [place] [address] Anion gap [Moles/Vol] 5 mmol/L Normal 3-13 [facility] Comment on above: Performed By: #### B MP3M, LFT3, HEMDF ####[id number] [place] [address] CO2 [Moles/Vol] 26 mmol/L Normal 22-30 [facility] Comment on above: Performed By: #### B MP3M, LFT3, HEMDF ####[id number] [place] [address] Glucose [Mass/Vol] 99 mg/dL Normal 70-100 [facility] Comment on above: Performed By: #### B MP3M, LFT3, HEMDF ####[id number] [place] [address] Urea nitrogen [Mass/Vol] 10 mg/dL Normal 9-20 [facility] Comment on above: Performed By: #### B MP3M, LFT3, HEMDF ####[id number] [place] [address] Creatinine [Mass/Vol] 0.61 mg/dL Normal 0.52-1.25 [facility] Comment on above: Performed By: #### B MP3M, LFT3, HEMDF ####[id number] [place] [address] GFR/1.73 sq M.predicted among blacks MDRD (S/P/Bld) [Vol rate/Area] mL/min/{1.73_m2} Normal >60 [facility] Comment on above: Performed By: #### B MP3M, LFT3, HEMDF ####[address] [place], [place] GFR/1.73 sq M.predicted among non-blacks MDRD (S/P/Bld) [Vol rate/Area] 89.0 mL/min/{1.73_m2} Normal >60 [facility] Comment on above: Result Comment: KDIG [...] Performed By: #### B MP3M, LFT3, HEMDF ####[address] [place], [place] Chloride [Moles/Vol] 107 mmol/L Normal 98-107 [facility] Comment on above: Performed By: #### B MP3M, LFT3, HEMDF ####[address] [place], [place] Potassium [Moles/Vol] 3.6 mmol/L Normal 3.5-5.1 [facility] Comment on above: Performed By: #### B MP3M, LFT3, HEMDF ####[address] [place], [place] Sodium [Moles/Vol] 138 mmol/L Normal 135-145 [facility] Comment on above: Performed By: #### B MP3M, LFT3, HEMDF ####[address] [place] [address] Basic Metabolic Panel w/ Ref emmanuel to [...] P INF mL/min [facility] EGFR IF NonAfrican Bhutanese 89.0 mL/min 60 - PINF mL/min [facility] [...] [#/Vol] 7.6 10*3/uL 3.6 - 10.7 10*3/uL [facility] CR Chest Portableon 01-04-20 CR Chest Portable Patient Name: JAIMIE MCGOVERN Diagnostic Radiology ACCESSION EXAM DATE/TIME PROCEDURE ORDERING PROVIDER [id number] 01/03/2022 08:23 EDT CR Chest Portable MD MACIEL ANDREW CPT code 53518 Reason For Exam (CR Chest Portable) patient [...] Transcribed Date and Time: 01/03/2022 8:20 Normal [facility] Culture, Body Fluidon 2021 Body Fluid Cult/Smear, Aerobic No growth at 5 days. [facility] Gram Stain Result [facility] Glucose,Bedsideon 01-03-2022 Glucose [Mass/Vol] 115 mg/dL High 70-100 [facility] Comment on above: Result Comment: Test performed by glucose meter. Results may be 10%-15% lower than serum/plasma values. (CLIA ID [id number]) Performed By: #### B GLU #### [facility] [address] [place] [address] Hemogram w/ Autodiffon 01-03 Abs Baso Cnt 0.1 10*3/uL Normal 0.0-0.2 [facility] Comment on above: Performed By: #### B MP3M, LFT3, HEMDF ####[facility] [place] [address] Abs Neutrophile Cnt 6.1 10*3/uL Normal 1.8-7.0 [facility] Comment on above: Performed By: #### B MP3M, LFT3, HEMDF ####[facility] [place] [address] Basophils/100 WBC (Bld) 0.8 % Normal 0.0-2.0 [facility] Comment on above: Performed By: #### B MP3M, LFT3, HEMDF ####[address] [place] [address] Eosinophils (Bld) [#/Vol] 0.2 10*3/uL Normal 0.0-0.5 [facility] Comment on above: Performed By: #### B MP3M, LFT3, HEMDF ####[address] Eosinophils/100 WBC (Bld) 2.4 % Normal 1.0-6.0 [facility] Comment on above: Performed By: #### B MP3M, LFT3, HEMDF ####[address] Erythrocyte distribution width (RBC) [Ratio] 17.5 % High 11.5-14.5 [facility] Comment on above: Performed By: #### B MP3M, LFT3, HEMDF ####[address] Granulocytes/100 WBC (Bld) 80.5 % High 40.0-80.0 [facility] Comment on above: Performed By: #### B MP3M, LFT3, HEMDF ####[address] Hematocrit (Bld) [Volume fraction] 32.7 % Low 35.0-47.0 [facility] Comment on above: Performed By: #### B MP3M, LFT3, HEMDF ####[address] Hemoglobin (Bld) [Mass/Vol] 10.8 g/dL Low 11.7-16.0 [facility] Comment on above: Performed By: #### B MP3M, LFT3, HEMDF ####[address] Lymphocytes (Bld) [#/Vol] 0.7 10*3/uL Low 1.0-4.3 [facility] Comment on above: Performed By: #### B MP3M, LFT3, HEMDF ####[address] Lymphocytes/100 WBC (Bld) 8.6 % Low 20.0-40.0 [facility] Comment on above: Performed By: #### B MP3M, LFT3, HEMDF ####[address] [place], [place] MCH (RBC) [Entitic mass] 35.2 pg High 26.0-34.0 [facility] Comment on above: Performed By: #### B MP3M, LFT3, HEMDF ####[address] [place], [place] MCHC 33.0 % Normal 32.0-36.0 [facility] Comment on above: Performed By: #### B MP3M, LFT3, HEMDF ####[address] [place], [place] MCV (RBC) [Entitic vol] 106.8 fL High 79.0-98.0 [facility] Comment on above: Performed By: #### B MP3M, LFT3, HEMDF ####[address] Monocytes (Bld) [#/Vol] 0.6 10*3/uL Normal 0.0-0.8 [facility] Comment on above: Performed By: #### B MP3M, LFT3, HEMDF ####[address] [place], [place] Monocytes/100 WBC (Bld) 7.7 % Normal 2.0-10.0 [facility] Comment on above: Performed By: #### B MP3M, LFT3, HEMDF ####[address] Platelet mean volume (Bld) [Entitic vol] 7.6 fL Normal 7.4-12.4 [facility] Comment on above: Result Comment: MPV is a calculated measurement using platelet volume ratio. Performed By: #### B MP3M, LFT3, HEMDF ####[address] [place], [place] Platelets (Bld) [#/Vol] 365 10*3/uL Normal 140-440 [facility] Comment on above: Performed By: #### B MP3M, LFT3, HEMDF ####[address] [place], [place] RBC (Bld) [#/Vol] 3.06 10*6/uL Low 3.80-5.20 [facility] Comment on above: Performed By: #### B MP3M, LFT3, HEMDF ####[address] [place], [place] WBC (Bld) [#/Vol] 7.6 10*3/uL Normal 3.6-10.7 [facility] Comment on above: Performed By: #### B MP3M, LFT3, HEMDF ####[address] [place], [place] Hepatic Functionon 2 ALP [Catalytic activity/Vol] 91 U/L Normal 38-126 [facility] Comment on above: Performed By: #### B MP3M, LFT3, HEMDF ####[address] [place], [place] ALT [Catalytic activity/Vol] 14 U/L Normal 0-34 [facility] Comment on above: Result Comment: The ALT test is performed by an updated assay method. Please note that the reference intervals have been changed and are now sex specific. Performed By: #### B MP3M, LFT3, HEMDF ####[address] [place], [place] AST [Catalytic activity/Vol] 29 U/L Normal 15-46 [facility] Comment on above: Performed By: #### B MP3M, LFT3, HEMDF ####[address] [place], [place] Bilirubin [Mass/Vol] 0.4 mg/dL Normal 0.2-1.3 [facility] Comment on above: Performed By: #### B MP3M, LFT3, HEMDF ####[address] [place], [place] Protein [Mass/Vol] 5.9 g/dL Low 6.3-8.2 [facility] Comment on above: Performed By: #### B MP3M, LFT3, HEMDF ####[employer] [id number] [place], [place] Bilirubin.indirect [Mass/Vol] 0.0 mg/dL Normal 0.0-0.3 [facility] Comment on above: Performed By: #### B MP3M, LFT3, HEMDF ####[facility] [employer] [id number] [place], [place] Albumin [Mass/Vol] 2.8 g/dL Low 3.5-5.0 [facility] Comment on above: Performed By: #### B MP3M, LFT3, HEMDF ####[facility] [employer] [id number] [place], [place] Hepatic Function Panelon Albumin [Mass/Vol] 2.8 g/dL Low 3.5 - 5 g/dL [facility] ALP (Bld) [Catalytic activity/Vol] 91 U/L 38 - 126 U/L [facility] ALT [Catalytic activity/Vol] 14 U/L 0 - 34 U/L [facility] AST [Catalytic activity/Vol] 29 U/L 15 - 46 U/L [facility] Bilirubin [Mass/Vol] 0.4 mg/dL 0.2 - 1 .3 mg/dL [facility] Bilirubin.indirect [Mass/Vol] 0.0 mg/dL 0 - 0.3 mg/dL [facility] Free PSA/Total PSA [Mass fraction] 5.9 g/dL Low 6.3 - 8.2 g/dL [facility] Lactic Acidon 01-03-2022 Lactate [Moles/Vol] 1.6 mmol/L Normal 0.7-2.0 [facility] Comment on above: Performed By: #### L ACT3 ####[facility] [employer] [id number] [place], [place] Lactate [Moles/Vol] 1.6 mmol/L 0.7 - 2 mmol/L [facility] No Panel Informationon 01-03 Radiology Study observation (narrative) [facility] Work Phone: Interpretation and review of laboratory results Abnormal [facility] POCT GlucoseOrdered By: Corbin Carpio on 01-03-2022 Glucose [Mass/Vol] 115 mg/dL High 70 - 100 mg/dL [facility] Work Phone: Interpretation and review of laboratory results Abnormal [facility] Work Phone: [facility] Work Phone: POCT Glucoseon 01-03-2022 [facility] Procalcitoninon 01-03-2022 Interpretation See Below Normal [facility] Comment on above: Result Comment: PCT <0.50 = Low risk of severe sepsis and/or septic shock. PCT >2.00 = High risk of severe sepsis and/or septic shock. Performed By: #### H EMD, BMP3M #### [address] [address] VL Venous Duplex US Lower Ex t Bilateralon 01-03-2022 VL Venous Duplex US Lower Ext Bilateral Patient Name: JAIMIE MCGOVERN Ultrasound ACCESSION EXAM DATE/TIME PROCEDURE ORDERING PROVIDER [id number] 01/03/2022 12:07 EDT VL Venous Duplex [place] [id number] -YARIEL BEASLEY Lower Ext Bilateral CPT code 11909 Reason For Exam (VL Venous Duplex US Lower Ext Bilateral) elevated procalcitonin and edema Report [facility] -------- Lower Extremity Venous Duplex Report Patient Olimpia : 1945 Study 01/03/2022 Name: Jaimie (76yrs) Date: Patient [id number] Age: 76 Account: [id number] ID: Gender: F Loc: 6104 BP: Ordering Physician: Yariel Beasley Chief Recordist: Aleja Kevin RDMS, RVT Interpreting Physician: Alex Diop MD -------- Location: [facility] -------- Indications: Elevated procalcitionin and edema. [...] + -- (more content not included)... Normal [facility] XR CHEST PORTABLEon 01-04-20 22 [facility] Work Phone: XR CHEST PORTABLEOrdered By: Isaiah Pantoja on 01-03-2022 [facility] Work Phone: Basic Metabolic Panelon 12-24 Anion gap [Moles/Vol] 1 mmol/L Low 3-13 [facility] Comment on above: Performed By: #### B GLU #### [facility] [address], [place] Calcium [Mass/Vol] 7.9 mg/dL Low 8.4-10.4 [facility] Comment on above: Performed By: #### B GLU #### [facility] [address], [place] CO2 [Moles/Vol] 26 mmol/L Normal 22-30 [facility] Comment on above: Performed By: #### B GLU #### [facility] [address], [place] Creatinine [Mass/Vol] 0.54 mg/dL Normal 0.52-1.25 [facility] Comment on above: Performed By: #### B GLU #### [facility] [address], [place] eGFR OTHER > 90.0 Normal >60 [facility] Comment on above: Result Comment: KDIG [...] secretion. Performed By: #### B GLU #### [facility] [address], [place] GFR/1.73 sq M.predicted among blacks MDRD (S/P/Bld) [Vol rate/Area] mL/min/{1.73_m2} Normal >60 [facility] Comment on above: Performed By: #### B GLU #### [address], [place] Glucose [Mass/Vol] 80 mg/dL Normal 70-100 [facility] Comment on above: Performed By: #### B GLU #### [address], [place] Urea nitrogen [Mass/Vol] 5 mg/dL Low 9-20 [facility] Comment on above: Performed By: #### B GLU #### [address], [place] Chloride [Moles/Vol] 110 mmol/L High 98-107 [facility] Comment on above: Performed By: #### B GLU #### [address], [place] Potassium [Moles/Vol] 3.6 mmol/L Normal 3.5-5.1 [facility] Comment on above: Performed By: #### B GLU #### [address], [place] Sodium [Moles/Vol] 138 mmol/L Normal 135-145 [facility] Comment on above: Performed By: #### B GLU #### [address] [facility] Basic Metabolic PanelOrdered By: Ledy Penn on 01-02-2022 Anion gap [Moles/Vol] 1 mmol/L Low 3 - 13 mmol/L [facility] Calcium [Mass/Vol] 7.9 mg/dL Low 8.4 - 10. 4 mg/dL [facility] Chloride [Moles/Vol] 110 mmol/L High 98 - 10 7 mmol/L [facility] CO2 [Moles/Vol] 26 mmol/L 22 - 30 mmol/L [facility] Creatinine [Mass/Vol] 0.54 mg/dL 0.52 - 1.25 mg/dL [facility] eGFR mL/min 60 - P INF mL/min [facility] EGFR IF NonAfrican Bhutanese mL/min 60 - PINF mL/min [facility] Glucose [...] 10.4 g/dL Low 11.7 - 16 g/dL [facility] Interpretation and review of laboratory results Abnormal [facility] MCH (RBC) [Entitic mass] 35.0 pg High 26 - 34 pg [facility] MCHC (RBC) [Mass/Vol] 33.0 % 32 - 36 % [facility] MCV (RBC) [Entitic vol] 106.1 fL High 79 - 98 fL [facility] Platelet distribution width (Bld) [Ratio] 17.0 % High 11.5 - 14.5 % [facility] Platelet mean volume (Bld) [Entitic vol] 7.8 fL 7.4 - 12.4 fL [facility] Platelets (Bld) [#/Vol] 268 10*3/uL 140 - 440 10*3/uL [facility] RBC (Bld) [#/Vol] 2.96 10*6/uL Low 3.8 - 5.2 10*6/uL [facility] WBC (Bld) [#/Vol] 7.7 10*3/uL 3.6 - 10.7 10*3/uL [facility] CR Chest Portableon 01-03-20 CR Chest Portable Patient Name: JAIMIE MCGOVERN [facility]#: [id number] Diagnostic Radiology ACCESSION EXAM DATE/TIME PROCEDURE ORDERING PROVIDER [id number] 01/02/2022 06:01 EDT CR Chest Portable MD MACIEL ANDREW CPT code 18488 Reason For Exam (CR Chest Portable) patient [...] Transcribed Date and Time: 01/02/2022 7:16 Normal [facility] CULTURE BLOODon 01-02-2022 Microscopic examination of blood, culture CULTURE BLOOD --> Status: F No growth at 5 days. Normal [facility] Comment on above: Performed By: #### B MP3M, HEMDF, MG3, PHOS3, PCAL #### [facility] [employer] [facility] [address] [place] [address] Culture, Bloodon 01-02-2022 Blood Culture, Routine No growth at 5 days. [facility] Work Phone: [facility] Work Phone: Glucose,Bedsideon 01-02-2022 Glucose [Mass/Vol] 100 mg/dL Normal 70-100 [facility] Comment on above: Result Comment: Test performed by glucose meter. Results may be 10%-15% lower than serum/plasma values. (CLIA ID [id number]) Performed By: #### B GLU ####[address] [place], [place] Hemogram w/ Autodiffon 01-02 Erythrocyte distribution width (RBC) [Ratio] 17.0 % High 11.5-14.5 [facility] Comment on above: Performed By: #### DAVID BOBO ####[address] [place], [place] Hematocrit (Bld) [Volume fraction] 31.4 % Low 35.0-47.0 [facility] Comment on above: Performed By: #### DAVID BOBO ####[address] [place], [place] Hemoglobin (Bld) [Mass/Vol] 10.4 g/dL Low 11.7-16.0 [facility] Comment on above: Performed By: #### DAVID BOBO ####[address] [place], [place] MCH (RBC) [Entitic mass] 35.0 pg High 26.0-34.0 [facility] Comment on above: Performed By: #### DAVID BOBO ####[address] [place], [place] MCHC 33.0 % Normal 32.0-36.0 [facility] Comment on above: Performed By: #### DAVID BOBO ####[address] MCV (RBC) [Entitic vol] 106.1 fL High 79.0-98.0 [facility] Comment on above: Performed By: #### DAVID BOBO ####[address] Platelet mean volume (Bld) [Entitic vol] 7.8 fL Normal 7.4-12.4 [facility] Comment on above: Result Comment: MPV is a calculated measurement using platelet volume ratio. Performed By: #### DAVID BOBO ####[address] Platelets (Bld) [#/Vol] 268 10*3/uL Normal 140-440 [facility] Comment on above: Performed By: ###DAVID SHERMAN ####[address] RBC (Bld) [#/Vol] 2.96 10*6/uL Low 3.80-5.20 [facility] Comment on above: Performed By: ###DAVID SHERMAN ####[address] WBC (Bld) [#/Vol] 7.7 10*3/uL Normal 3.6-10.7 [facility] Comment on above: Performed By: ###DAVID SHERMAN ####[address] Manual Diffon 01-02-2022 Abs Lymph Cnt 0.5 10*3/uL Low 1.1-4.5 [facility] Comment on above: Performed By: #### DAVID BOBO ####[address] Abs Monocyte Cnt 0.5 10*3/uL Normal 0.2-1.1 [facility] Comment on above: Performed By: #### DAVID BOBO ####[address] Abs Neutrophile Cnt 6.7 10*3/uL Normal 2.2-8.2 [facility] Comment on above: Performed By: ###DAVID SHERMAN ####[address] Anisocytosis Slight Normal [facility] Comment on above: Performed By: ###DAVID SHERMAN ####[address] Bands 16 % High 0-3 [facility] Comment on above: Performed By: ###DAVID SHERMAN ####[address] Brandt Cells Slight Normal [facility] Comment on above: Performed By: #### DAVID BOBO ####[facility] [address] [place], [place] Lymphocytes 7 % Low 20-40 [facility] Comment on above: Performed By: #### DAVID BOBO ####[facility] [id number] [place], [place] Macrocytosis Slight Normal [facility] Comment on above: Performed By: #### DAVID BOBO ####[facility] [id number] [place], [place] Monocytes 6 % Normal 2-10 [facility] Comment on above: Performed By: #### DAVID BOBO ####[facility] [id number] [place], [place] Ovalocytes Slight Normal [facility] Comment on above: Performed By: #### DAVID BOBO ####[facility] [id number] [place], [place] Poikilocytosis Slight Normal [facility] Comment on above: Performed By: #### DAVID BOBO ####[facility] [address] [place], [place] Polychromasia Slight Normal [facility] Comment on above: Performed By: #### DAVID BOBO ####[facility] [id number] [place], [place] RBC Morphology ABNORMAL Normal [facility] Comment on above: Performed By: #### DAVID BOBO ####[facility] [id number] [place], [place] Seg Neutrophils 71 % Normal 40-80 [facility] Comment on above: Performed By: #### DAVID BOBO ####[facility] [address] [place], [place] Target Cells Slight Normal [facility] Comment on above: Performed By: #### DAVID BOBO ####[facility] [address] [place], [place] Tear Drop Forms Slight Normal [facility] Comment on above: Performed By: #### DAVID BOBO ####[address] Toxic Granulation Slight Normal [facility] Comment on above: Performed By: #### DAVID BOBO ####[address] Toxic Vacuoles Slight Normal [facility] Comment on above: Performed By: #### DAVID BOBO ####[address] Abs Baso Cnt 0.0 10*3/uL Normal 0.0-0.2 [facility] Comment on above: Performed By: #### DAVID BOBO ####[address] Abs Eosin Cnt 0.0 10*3/uL Normal 0.0-0.5 [facility] Comment on above: Performed By: #### DAVID BOBO ####[address] Basophils 0 % Normal 0-2 [facility] Comment on above: Performed By: #### DAVID BOBO ####[address] Cells counted 100 Normal [facility] Comment on above: Performed By: #### DAVID BOBO ####[address] Eosinophils 0 % Low 1-6 [facility] Comment on above: Performed By: #### DAVID BOBO ####[address] Manual Differentialon 2021 Absolute Baso # 0.0 10*3/uL 0 - 0.2 10*3/uL [facility] Absolute Eos # 0.0 10*3/uL 0 - 0.5 10*3/uL [facility] Absolute Lymph # 0.5 10*3/uL Low 1.1 - 4.5 10*3/uL [facility] Absolute [place]cock # 0.5 10*3/uL 0.2 - 1.1 10*3/uL [facility] Absolute Neut # 6.7 10*3/uL 2.2 - 8.2 10*3/uL [facility] Anisocytosis Slight [facility] Bands 16 % High 0 - 3 % [facility] Basophils/100 WBC (Bld) 0 % 0 - 2 % S [facility] [place] Cells Slight [facility] Eosinophils/100 WBC (Bld) 0 [...] Toxic Granulation Slight [facility] TOXIC VACUOLES Slight [facility] POCT Glucoseon 01-02-2022 Glucose [Mass/Vol] 100 mg/dL 70 - 100 mg/dL [facility] Work Phone: [phone] [facility] Work Phone: [phone] Procalcitoninon 01-02-2022 Procalcitonin 23.68 ng/mL High 0.00-0.09 [facility] Comment on above: Performed By: #### B GLU #### [facility] [address] [place] [address] Interpretation See Below [facility] Interpretation and review of laboratory results Abnormal [facility] Procalcitonin 23.68 ng/mL High 0 - 0.09 ng/mL [facility] XR CHEST PORTABLEon 01-03-20 22 [facility] Work Phone: [phone] [facility] Work Phone: [phone] Radiology Study observation (narrative) [facility] Work Phone: [phone] Basic Metabolic Panelon - Calcium [Mass/Vol] 7.2 mg/dL Low 8.4-10.4 [facility] Comment on above: Performed By: #### B GLU #### [facility] [address], [place] Glucose [Mass/Vol] 129 mg/dL High 70-100 [facility] Comment on above: Performed By: #### B GLU #### [facility] [address], [place] Urea nitrogen [Mass/Vol] 3 mg/dL Low 9-20 [facility] Comment on above: Performed By: #### B GLU #### [facility] [address], [place] Anion gap [Moles/Vol] 2 mmol/L Low 3-13 [facility] Comment on above: Performed By: #### B GLU #### [facility] [address], [place] CO2 [Moles/Vol] 22 mmol/L Normal 22-30 [facility] Comment on above: Performed By: #### B GLU #### [facility] [address], [place] Creatinine [Mass/Vol] 0.40 mg/dL Low 0.52-1.25 [facility] Comment on above: Performed By: #### B GLU #### [facility] [address], [place] eGFR OTHER > 90.0 Normal >60 [facility] Comment on above: Result Comment: KDIG [...] secretion. Performed By: #### B GLU #### [place] [address], [place] GFR/1.73 sq M.predicted among blacks MDRD (S/P/Bld) [Vol rate/Area] mL/min/{1.73_m2} Normal >60 [facility] Comment on above: Performed By: #### B GLU #### [facility] [address], [place] Chloride [Moles/Vol] 112 mmol/L High 98-107 [facility] Comment on above: Performed By: #### B GLU #### [place] [address], [place] Potassium [Moles/Vol] 4.1 mmol/L Normal 3.5-5.1 [facility] Comment on above: Performed By: #### B GLU #### [place] [address], [place] Sodium [Moles/Vol] 136 mmol/L Normal 135-145 [facility] Comment on above: Performed By: #### B GLU #### [place] [address], [place] Basic Metabolic Panel w/ Ref emmanuel to MGon 01-01-2022 Anion gap [Moles/Vol] 2 mmol/L Low 3 - 13 mmol/L [facility] Calcium [Mass/Vol] 7.2 mg/dL Low 8.4 - 10. 4 mg/dL [facility] Chloride [Moles/Vol] 112 mmol/L High 98 - 10 7 mmol/L [facility] CO2 [Moles/Vol] 22 mmol/L 22 - 30 mmol/L [facility] Creatinine [Mass/Vol] 0.4 mg/dL Low 0.52 - 1.25 mg/dL [facility] eGFR mL/min 60 - P INF mL/min [facility] EGFR IF NonAfrican Bhutanese mL/min 60 - PINF mL/min [facility] Glucose [Mass/Vol] 129 mg/dL High 70 - 100 mg/dL [facility] Potassium [Moles/Vol] 4.1 mmol/L 3.5 - [...] 3.05 10*6/uL Low 3.8 - 5.2 10*6/uL [facility] WBC (Bld) [#/Vol] 11.8 10*3/uL High 3.6 - 10.7 10*3/uL [facility] CR Abdomen APon 01-01-2022 CR Abdomen AP Patient Name: JAIMIE MCGOVERN Diagnostic Radiology ACCESSION EXAM DATE/TIME PROCEDURE ORDERING PROVIDER [id number] 01/01/2022 06:10 EDT CR Abdomen AP [id number] -[place] CPT code 30489 Reason For Exam (CR Abdomen AP) assess [...] Transcribed Date and Time: 01/01/2022 7:24 Normal [facility] CR Chest Portableon 01-02-20 CR Chest Portable Patient Name: JAIMIE MCGOVERN Diagnostic Radiology ACCESSION EXAM DATE/TIME PROCEDURE ORDERING PROVIDER [id number] 01/01/2022 11:08 EDT CR Chest Portable [id number] -[place] CPT code 20062 Reason For Exam (CR Chest Portable) right [...] NICHOLAS Transcribed Date and Time: 01/01/2022 12:17 [facility] CR Chest Portable Patient Name: JAIMIE MCGOVERN Diagnostic Radiology ACCESSION EXAM DATE/TIME PROCEDURE ORDERING PROVIDER [id number] 01/01/2022 06:10 EDT CR Chest Portable MD MACIEL ANDREW CPT code 27057 Reason For Exam (CR Chest Portable) patient [...] NICHOLAS Transcribed Date and Time: 01/01/2022 7:[address] [facility] [address] GUIDED PLEURAL DRAINAGE W CATH PERCon 01-01-2022 [facility] Work Phone: [facility] Work Phone: CT Insert Cath Pleura w/ Shawanda geon 01-01-2022 CT Insert Cath Pleura w/ Image Patient Name: JAIMIE MCGOVERN Computed Tomography ACCESSION EXAM DATE/TIME PROCEDURE ORDERING PROVIDER [id number] 01/01/2022 10:[address] Insert Cath Pleura w/ [id number] -NATHALIE, ANEIL Image CPT code 16909 Reason For Exam (CT Insert Cath Pleura [...] Subsequently, the tract was dilated. A 12 Sammarinese pigtail drainage catheter was advanced into position. [...] Transcribed Date and Time: 01/01/2022 10:45 Normal [facility] CULTURE AND STAIN - FLUIDon 01-01-2022 CULTURE AND STAIN - FLUID CULTURE & STAIN - FLUID --> Status: F No growth at 5 days. STAIN GRAM --> Status: F Many polymorphonuclear cells/lpf. No organisms seen. No organisms seen. Normal [facility] Comment on above: Performed By: #### B MP3M, HEMDF, MG3, PHOS3, PCAL #### [facility] [address], [place] Glucose,Bedsideon 01-01-2022 Glucose [Mass/Vol] 125 mg/dL High 70-100 [facility] Comment on above: Result Comment: Test performed by glucose meter. Results may be 10%-15% lower than serum/plasma values. (CLIA ID [id number]) Performed By: #### B GLU ####[place] [address] [place], [place] Glucose [Mass/Vol] 102 mg/dL High 70-100 [facility] Comment on above: Result Comment: Test performed by glucose meter. Results may be 10%-15% lower than serum/plasma values. (CLIA ID [id number]) Performed By: #### B GLU #### [facility] [address], [place] Glucose [Mass/Vol] 120 mg/dL High 70-100 [facility] Comment on above: Result Comment: Test performed by glucose meter. Results may be 10%-15% lower than serum/plasma values. (CLIA ID [id number]) Performed By: #### B GLU ####[place] [address] [place], [place] Hemogram w/ Autodiffon 01-01 Abs Baso Cnt 0.0 10*3/uL Normal 0.0-0.2 [facility] Comment on above: Performed By: #### B GLU #### [facility] [address], [place] Abs Neutrophile Cnt 10.9 10*3/uL High 1.8-7.0 [facility] Comment on above: Performed By: #### B GLU #### [facility] [address] [place] [address] Basophils/100 WBC (Bld) 0.1 % Normal 0.0-2.0 [facility] Comment on above: Performed By: #### B GLU #### [facility] [address], [place] Eosinophils (Bld) [#/Vol] 0.0 10*3/uL Normal 0.0-0.5 [facility] Comment on above: Performed By: #### B GLU #### [facility] [address], [place] Eosinophils/100 WBC (Bld) 0.1 % Low 1.0-6.0 [facility] Comment on above: Performed By: #### B GLU #### [facility] [address], [place] Erythrocyte distribution width (RBC) [Ratio] 17.0 % High 11.5-14.5 [facility] Comment on above: Performed By: #### B GLU #### [facility] [address] [place] [address] Granulocytes/100 WBC (Bld) 91.7 % High 40.0-80.0 [facility] Comment on above: Performed By: #### B GLU #### [facility] [address] [place] [address] Hematocrit (Bld) [Volume fraction] 32.4 % Low 35.0-47.0 [facility] Comment on above: Performed By: #### B GLU #### [facility] [address] [place] [address] Hemoglobin (Bld) [Mass/Vol] 10.9 g/dL Low 11.7-16.0 [facility] Comment on above: Performed By: #### B GLU #### [facility] [address], [place] Lymphocytes (Bld) [#/Vol] 0.3 10*3/uL Low 1.0-4.3 [facility] Comment on above: Performed By: #### B GLU #### [facility] [address] [place] [address] Lymphocytes/100 WBC (Bld) 2.3 % Low 20.0-40.0 [facility] Comment on above: Performed By: #### B GLU #### [facility] [address] [place] [address] MCH (RBC) [Entitic mass] 35.8 pg High 26.0-34.0 [facility] Comment on above: Performed By: #### B GLU #### [facility] [address] [place] [address] MCHC 33.7 % Normal 32.0-36.0 [facility] Comment on above: Performed By: #### B GLU #### [place] [address], [place] MCV (RBC) [Entitic vol] 106.1 fL High 79.0-98.0 [facility] Comment on above: Performed By: #### B GLU #### [place] [address], [place] Monocytes (Bld) [#/Vol] 0.7 10*3/uL Normal 0.0-0.8 [facility] Comment on above: Performed By: #### B GLU #### [facility] [address] [place] [address] Monocytes/100 WBC (Bld) 5.8 % Normal 2.0-10.0 [facility] Comment on above: Performed By: #### B GLU #### [facility] [address], [place] Platelet mean volume (Bld) [Entitic vol] 7.3 fL Low 7.4-12.4 [facility] Comment on above: Result Comment: MPV is a calculated measurement using platelet volume ratio. Performed By: #### B GLU #### [facility] [address], [place] Platelets (Bld) [#/Vol] 220 10*3/uL Normal 140-440 [facility] Comment on above: Performed By: #### B GLU #### [facility] [address] RBC (Bld) [#/Vol] 3.05 10*6/uL Low 3.80-5.20 [facility] Comment on above: Performed By: #### B GLU #### [facility] [address] WBC (Bld) [#/Vol] 11.8 10*3/uL High 3.6-10.7 [facility] Comment on above: Performed By: #### B GLU #### [facility] [address], [place] Hepatic Functionon 2 ALP [Catalytic activity/Vol] 56 U/L Normal 38-126 [facility] Comment on above: Performed By: #### B GLU #### [facility] [address] [place] ALT [Catalytic activity/Vol] 12 U/L Normal 0-34 [facility] Comment on above: Result Comment: The ALT test is performed by an updated assay method. Please note that the reference intervals have been changed and are now sex specific. Performed By: #### B GLU #### [facility] [address], [place] AST [Catalytic activity/Vol] 35 U/L Normal 15-46 [facility] Comment on above: Performed By: #### B GLU #### [facility] [address] Bilirubin [Mass/Vol] 1.0 mg/dL Normal 0.2-1.3 [facility] Comment on above: Performed By: #### B GLU #### [facility] [address] Bilirubin.indirect [Mass/Vol] 0.0 mg/dL Normal 0.0-0.3 [facility] Comment on above: Performed By: #### B GLU #### [facility] [address] Protein [Mass/Vol] 5.3 g/dL Low 6.3-8.2 [facility] Comment on above: Performed By: #### B GLU #### [facility] [address] [place] [address] Albumin [Mass/Vol] 2.5 g/dL Low 3.5-5.0 [facility] Comment on above: Performed By: #### B GLU #### [facility] [address] [place] [address] Hepatic Function Panelon Albumin [Mass/Vol] 2.5 g/dL [...] 5.3 g/dL Low 6.3 - 8.2 g/dL [facility] No Panel Informationon 01-01 Radiology Study observation (narrative) [facility] Work Phone: Interpretation and review of laboratory results Abnormal [facility] POCT GlucoseOrdered By: Vamshi Solorio on 01-01-2022 Glucose [Mass/Vol] 125 mg/dL High 70 - 100 mg/dL [facility] Work Phone: Interpretation and review of laboratory results Abnormal [facility] Work Phone: [facility] Work Phone: POCT Glucoseon 01-01-2022 [facility] Glucose [Mass/Vol] 102 mg/dL High 70 - 100 mg/dL [facility] Work Phone: Interpretation and review of laboratory results Abnormal [facility] Work Phone: [facility] Work Phone: Glucose [Mass/Vol] 120 mg/dL High 70 - 100 mg/dL [facility] Work Phone: Interpretation and review of laboratory results Abnormal [facility] Work Phone: [facility] Work Phone: Procalcitoninon 01-01-2022 Interpretation See Below Normal [facility] Comment on above: Result Comment: PCT <0.50 = Low risk of severe sepsis and/or septic shock. PCT >2.00 = High risk of severe sepsis and/or septic shock. Performed By: #### B GLU #### [facility] [employer] [address] [place] [address] Staph Aureus Complete Nasalo n 01-01-2022 Staph Aureus Complete Nasal Staph Screen --> Status: F No S. aureus detected. Negative nasal MRSA PCR has a high negative predictive value for MRSA pneumonia. Consider stopping vancomycin if no other clinical indication. Contact Antimicrobial Stewardship for further recommendations. The analytical performance characteristics of this assay have been determined by [employer] in accordance with CLIA regulations. The modifications [...] of this assay have been determined by [employer] in accordance with CLIA regulations. The modifications have not been cleared or approved by the U. S. Food and Drug Administration; however, the FDA has determined that such clearance or approval is not necessary. Normal [facility] Comment on above: Performed By: #### B MP3M, HEMDF, MG3, PHOS3, PCAL #### [facility] [address] [place] [address] XR ABDOMEN (KUB) (SINGLE AP VIEW)on 01-01-2022 [facility] [employer] Work Phone: XR ABDOMEN (KUB) (SINGLE AP VIEW)Ordered By: Ted Sunshine on 01-01-2022 [facility] Work Phone: XR CHEST PORTABLEon 01-02-20 [facility] Work Phone: [phone] [facility] Work Phone: [phone] [facility] Work Phone: [phone] [facility] Work Phone: [phone] Basic Metabolic Panelon - Calcium [Mass/Vol] 7.4 mg/dL Low 8.4-10.4 [facility] Comment on above: Performed By: #### M G3, LFT3, PCAL, BMP3M ####[facility] [employer] [id number] [place] [address] Glucose [Mass/Vol] 163 mg/dL High 70-100 [facility] Comment on above: Performed By: #### M G3, LFT3, PCAL, BMP3M ####[facility] [employer] [id number] [facility] [place] [address] Anion gap [Moles/Vol] 2 mmol/L Low 3-13 [facility] Comment on above: Performed By: #### M G3, LFT3, PCAL, BMP3M ####[facility] [employer] [id number] [place] [address] CO2 [Moles/Vol] 23 mmol/L Normal 22-30 [facility] Comment on above: Performed By: #### M G3, LFT3, PCAL, BMP3M ####[facility] [employer] [id number] [facility] [address] Creatinine [Mass/Vol] 0.49 mg/dL Low 0.52-1.25 [facility] Comment on above: Performed By: #### M G3, LFT3, PCAL, BMP3M ####[facility] [employer] [id number]mon[place] [address] eGFR OTHER > 90.0 Normal >60 [facility] Comment on above: Result Comment: KDIG [...] By: #### M G3, LFT3, PCAL, BMP3M ####[address] GFR/1.73 sq M.predicted among blacks MDRD (S/P/Bld) [Vol rate/Area] mL/min/{1.73_m2} Normal >60 [facility] Comment on above: Performed By: #### M G3, LFT3, PCAL, BMP3M ####[address] Urea nitrogen [Mass/Vol] 5 mg/dL Low 9-20 [facility] Comment on above: Performed By: #### M G3, LFT3, PCAL, BMP3M ####[address] Chloride [Moles/Vol] 111 mmol/L High 98-107 [facility] Comment on above: Performed By: #### M G3, LFT3, PCAL, BMP3M ####[address] Potassium [Moles/Vol] 2.9 mmol/L Low 3.5-5.1 [facility] Comment on above: Performed By: #### M G3, LFT3, PCAL, BMP3M ####[address] Sodium [Moles/Vol] 137 mmol/L Normal 135-145 [facility] Comment on above: Performed By: #### M G3, LFT3, PCAL, BMP3M ####[address] Basic Metabolic Panel w/ Ref emmanuel [...] P INF mL/min [facility] EGFR IF NonAfrican Bhutanese mL/min 60 - PINF mL/min [facility] Glucose [Mass/Vol] 163 mg/dL High 70 - 100 mg/dL [facility] Interpretation and review of laboratory results Abnormal [facility] Potassium [Moles/Vol] 2.9 mmol/L Low 3.5 - 5.1 mmol/L [facility] Sodium [Moles/Vol] 137 mmol/L 135 - 145 mmol/L [facility] Urea nitrogen (BldV) [Mass/Vol] 5 mg/dL Low 9 - 20 mg/dL [facility] CBC with Auto Differentialon [...] 10.6 g/dL Low 11.7 - 16 g/dL [facility] Interpretation and review of laboratory results [...] [#/Vol] 7.8 10*3/uL 3.6 - 10.7 10*3/uL [facility]en APon 12-31-2021 CR Abdomen AP Patient Name: JAIMIE MCGOVERN Diagnostic Radiology ACCESSION EXAM DATE/TIME PROCEDURE ORDERING PROVIDER [id number] 12/31/2021 05:51 EDT CR Abdomen AP [id number] -[place] CPT code 74129 Reason For Exam (CR Abdomen AP) assess [...] [place]AMA Transcribed Date and Time: 12/31/2021 7:34 [facility] CR Chest Portableon 01-01-20 CR Chest Portable Patient Name: JAIMIE MCGOVERN Diagnostic Radiology ACCESSION EXAM DATE/TIME PROCEDURE ORDERING PROVIDER [id number] 12/31/2021 05:51 EDT CR Chest Portable MD MACIEL ANDREW CPT code 26695 Reason For Exam (CR Chest Portable) patient [...] JOHN Transcribed Date and Time: 12/31/2021 7:15 [facility] CTA CHEST ABDOMEN PELVIS W C ONTRASTon 12-31-2021 [facility] RAD [facility] Work Phone: [facility] Work Phone: CTA Chest/Abdomen/Pelvis w/ + w/o contraon 12-31-2021 [facility] Chest/Abdomen/Pelvis w/ + w/o contra Patient Name: JAIMIE MCGOVERN Computed Tomography ACCESSION EXAM DATE/TIME PROCEDURE ORDERING PROVIDER [id number] 12/31/2021 12:41 EDT [facility] Chest/Abdomen/Pelvis [id number] -[place] w/ + w/o contra CPT code 77513 11837 [id number] Reason For Exam (CTA Chest/Abdomen/Pelvis w/ [...] Transcribed Date and Time: 12/31/2021 2:58 Normal [facility] Cytology, Non-Gynon 01-01-20 22 Cytology report Cyto stain.thin prep Doc (Cvx/Vag) SEE BELOW [facility] Glucose, Bedsideon 2 Confirmation see below Normal [facility] Comment on above: Result Comment: No c onfirmation received. Performed By: #### G LUB ####[facility] [employer] [id number] [place], [place] Glucose,Bedside < 50 Low 70-100 [facility] Comment on above: Result Comment: Test performed by glucose meter. Results may be 10%-15% lower than serum/plasma values. (CLIA ID [id number]) Performed By: #### G LUB ####[facility] [employer] [id number] [facility], [place] Glucose,Bedsideon 12-31-2021 Glucose [Mass/Vol] 129 mg/dL High 70-100 [facility] Comment on above: Result Comment: Test performed by glucose meter. Results may be 10%-15% lower than serum/plasma values. (CLIA ID [id number]) Performed By: #### B GLU ####[place] [address] [place], [place] Glucose [Mass/Vol] 165 mg/dL High 70-100 [facility] Comment on above: Result Comment: Test performed by glucose meter. Results may be 10%-15% lower than serum/plasma values. (CLIA ID [id number]) Performed By: #### B GLU ####[place] [address] [place], [place] Hemogram w/ Autodiffon 12-31 Abs Baso Cnt 0.0 10*3/uL Normal 0.0-0.2 [facility] Comment on above: Performed By: #### H EMDF ####[place] [address] [place], [place] Abs Neutrophile Cnt 6.4 10*3/uL Normal 1.8-7.0 [facility] Comment on above: Performed By: #### H EMDF ####[place] [address] [place], [place] Basophils/100 WBC (Bld) 0.2 % Normal 0.0-2.0 [facility] Comment on above: Performed By: #### H EMDF ####[facility] [address] [place] [address] Eosinophils (Bld) [#/Vol] 0.0 10*3/uL Normal 0.0-0.5 [facility] Comment on above: Performed By: #### H EMDF ####[place] [place] [place] [address] Eosinophils/100 WBC (Bld) 0.2 % Low 1.0-6.0 [facility] Comment on above: Performed By: #### H EMDF ####[address] [address] Granulocytes/100 WBC (Bld) 85.2 % High 40.0-80.0 [facility] Comment on above: Performed By: #### H EMDF ####[address] [address] Lymphocytes (Bld) [#/Vol] 0.4 10*3/uL Low 1.0-4.3 [facility] Comment on above: Performed By: #### H EMDF ####[address] [address] Lymphocytes/100 WBC (Bld) 5.4 % Low 20.0-40.0 [facility] Comment on above: Performed By: #### H EMDF ####[address] [address] Monocytes (Bld) [#/Vol] 0.7 10*3/uL Normal 0.0-0.8 [facility] Comment on above: Performed By: #### H EMDF ####[facility] [id number] [place] [address] Monocytes/100 WBC (Bld) 9.0 % Normal 2.0-10.0 [facility] Comment on above: Performed By: #### H EMDF ####[address] [address] Erythrocyte distribution width (RBC) [Ratio] 16.6 % High 11.5-14.5 [facility] Comment on above: Performed By: #### H EMDF ####[place] [place] [place], [place] Hematocrit (Bld) [Volume fraction] 32.2 % Low 35.0-47.0 [facility] Comment on above: Performed By: #### H EMDF ####[place] [place], [place] Hemoglobin (Bld) [Mass/Vol] 10.6 g/dL Low 11.7-16.0 [facility] Comment on above: Performed By: #### H EMDF ####[address] MCH (RBC) [Entitic mass] 35.2 pg High 26.0-34.0 [facility] Comment on above: Performed By: #### H EMDF ####[address] MCHC 33.1 % Normal 32.0-36.0 [facility] Comment on above: Performed By: #### H EMDF ####[address] MCV (RBC) [Entitic vol] 106.5 fL High 79.0-98.0 [facility] Comment on above: Performed By: #### H EMDF ####[address] Platelet mean volume (Bld) [Entitic vol] 6.8 fL Low 7.4-12.4 [facility] Comment on above: Result Comment: MPV is a calculated measurement using platelet volume ratio. Performed By: #### H EMDF ####[address] Platelets (Bld) [#/Vol] 193 10*3/uL Normal 140-440 [facility] Comment on above: Performed By: #### H EMDF ####[address] RBC (Bld) [#/Vol] 3.02 10*6/uL Low 3.80-5.20 [facility] Comment on above: Performed By: #### H EMDF ####[facility] [place] WBC (Bld) [#/Vol] 7.8 10*3/uL Normal 3.6-10.7 [facility] Comment on above: Performed By: #### H EMDF ####[facility] [place], [place] Hepatic Functionon 2 ALP [Catalytic activity/Vol] 60 U/L Normal 38-126 [facility] Comment on above: Performed By: #### H LALA BMP3M #### [place] [address], [place] ALT [Catalytic activity/Vol] 12 U/L Normal 0-34 [facility] Comment on above: Result Comment: The ALT test is performed by an updated assay method. Please note that the reference intervals have been changed and are now sex specific. Performed By: #### H LALA BMP3M #### [facility] [address], [place] AST [Catalytic activity/Vol] 40 U/L Normal 15-46 [facility] Comment on above: Performed By: #### H LALA BMP3M #### [facility] [address], [place] Protein [Mass/Vol] 4.8 g/dL Low 6.3-8.2 [facility] Comment on above: Performed By: #### H LALA BMP3M #### [facility] [address], [place] Bilirubin [Mass/Vol] 0.9 mg/dL Normal 0.2-1.3 [facility] Comment on above: Performed By: #### H LALA BMP3M #### [facility] [address], [place] Bilirubin.indirect [Mass/Vol] 0.0 mg/dL Normal 0.0-0.3 [facility] Comment on above: Performed By: #### H LALA BMP3M #### [facility] [address] [place] [address] Albumin [Mass/Vol] 2.3 g/dL Low 3.5-5.0 [facility] Comment on above: Performed By: #### H MAGDALENA REEVES3M #### [facility] [address] [place] [address] Hepatic Function Panelon Albumin [Mass/Vol] 2.3 g/dL Low 3.5 - 5 g/dL [facility] ALP (Bld) [Catalytic activity/Vol] 60 U/L 38 - 126 U/L [facility] ALT [Catalytic activity/Vol] 12 U/L 0 - 34 U/L [facility] AST [Catalytic activity/Vol] 40 U/L 15 - 46 U/L [facility] Bilirubin [Mass/Vol] 0.9 mg/dL 0.2 - 1 .3 mg/dL [facility] Bilirubin.indirect [Mass/Vol] 0.0 mg/dL 0 - 0.3 mg/dL [facility] Free PSA/Total PSA [Mass fraction] 4.8 g/dL Low 6.3 - 8.2 g/dL [facility] Interpretation and review of laboratory results Abnormal [facility] MRSA by PCRon 12-31-2021 Staph Aureus Sc [facility] Magnesiumon 12-31-2021 Magnesium [Mass/Vol] 1.9 mg/dL Normal 1.6-2.3 [facility] Comment on above: Performed By: #### H MAGDALENA REEVES3Geronimo #### [facility] [address] [place] [address] Magnesium [Mass/Vol] 1.9 mg/dL 1.6 - 2 .3 mg/dL [facility] No Panel Informationon 12-31 Radiology Study observation (narrative) [facility] Work Phone: POC Glucose, Whole Bloodon 0 12-31-2021 Confirmation see below [facility] Glucose [Mass/Vol] mg/dL Low 70 - 100 mg/dL [facility] Interpretation and review of laboratory results Abnormal [facility] POCT GlucoseOrdered By: Gerda Stiles on 12-31-2021 Glucose [Mass/Vol] 129 mg/dL High 70 - 100 mg/dL [facility] Work Phone: Interpretation and review of laboratory results Abnormal [facility] Work Phone: [facility] Work Phone: POCT Glucoseon 12-31-2021 [facility] POCT GlucoseOrdered By: Cruz Weir on 12-31-2021 Glucose [Mass/Vol] 165 mg/dL High 70 - 100 mg/dL [facility] Work Phone: Interpretation and review of laboratory results Abnormal [facility] Work Phone: [facility] Work Phone: Procalcitoninon 12-31-2021 Procalcitonin 6.23 ng/mL High 0.00-0.09 [facility] Comment on above: Performed By: #### H EMDF, BMP3M #### [address] [address] Interpretation See Below [facility] Interpretation and review of laboratory results Abnormal [facility] Procalcitonin 6.23 ng/mL High 0 - 0.09 ng/mL [facility] Interpretation See Below Normal [facility] Comment on above: Result Comment: PCT <0.50 = Low risk of severe sepsis and/or septic shock. PCT >2.00 = High risk of severe sepsis and/or septic shock. Performed By: #### H EMDF, BMP3M #### [address] [address] VL LOWER EXTREMITY BILATERAL VENOUS DUPLEXon 12-31-2021 [facility] Work Phone: VL LOWER EXTREMITY BILATERAL VENOUS DUPLEXOrdered By: Alex Diop on 12-31-2021 [facility] Work Phone: VL Venous Duplex US Lower Ex t Bilateralon 12-31-2021 VL Venous Duplex US Lower Ext Bilateral Patient Name: JAIMIE MCGOVERN Ultrasound ACCESSION EXAM DATE/TIME PROCEDURE ORDERING PROVIDER [id number] 12/31/2021 12:39 EDT VL Venous Duplex [place] [id number] -[place] Lower Ext Bilateral CPT code 02458 Reason For Exam (VL Venous Duplex US Lower Ext Bilateral) edema Report [facility] [place] -------- Lower Extremity Venous Duplex Report Patient Olimpia, : 1945 Study 12/31/2021 Name: Jaimie (76yrs) Date: Patient [id number] Age: 76 Account: [id number] ID: Gender: F Loc: T223 BP: Ordering Physician: Isabel [place] Chief Recordist: Marylou Harper RVT Interpreting Physician: Alex Diop MD -------- Location: [facility] -------- Indications: Edema left calf. -------- [...] supine position. Images were obtained using a [employer] vascular ultrasound machine. -------- Ultrasound Report Venous [...] + + (more content not included)... Normal [facility] XR ABDOMEN (KUB) (SINGLE AP VIEW)on 12-31-2021 [facility] [employer] Work Phone: XR ABDOMEN (KUB) (SINGLE AP VIEW)Ordered By: Kisha Becerra on 12-31-2021 [employer] Work Phone: XR CHEST PORTABLEon 01-01-20 [facility] [employer] Work Phone: XR CHEST PORTABLEOrdered By: Alex Cerrato on 12-31-2021 [facility] Work Phone: Arterial Blood Gaseson 12-30 CO2 [Moles/Vol] 22.7 mmol/L Low 23.0-27.0 [facility] Comment on above: Performed By: #### H EMDLavon BMP3M #### [facility] [address], [place] HCO3 (Bld) [Moles/Vol] 21.7 mmol/L Normal 21.0-25.0 [facility] Comment on above: Performed By: #### H EMDF BMP3M #### [facility] [address], [place] Hemoglobin (Bld) [Mass/Vol] 11.7 g/dL Normal ScreenOnly [facility] Comment on above: Performed By: #### H EMDF BMP3M #### [facility] [address], [place] Oxygen (Bld) [Partial pressure] 62.1 mm[Hg] Low 80.0-100.0 [facility] Comment on above: Performed By: #### H EMDF BMP3M #### [facility] [address] [place] Oxygen saturation in Blood 91.8 % Low 95.0-100.0 [facility] Comment on above: Performed By: #### H EMDF, BMP3M #### [facility] [address] [place] pCO2 32.2 mm[Hg] Low 35.0-45.0 [facility] Comment on above: Performed By: #### H EMDF BMP3M #### [facility] [address] [place] pH 7.446 Normal 7.350-7.450 [facility] Comment on above: Performed By: #### H EMDF, BMP3M #### [facility] [address], [place] Std Base Excess -1.7 mmol/L Normal -3.0-3.0 [facility] Comment on above: Performed By: #### H LALA BMP3M #### [facility] [address] [place] FIO2 No data Normal [facility] Comment on above: Performed By: #### H LALA BMP3M #### [facility] [address] [place] [address] Basic Metabolic Panelon 09-0 -2021 Anion gap [Moles/Vol] 5 mmol/L Normal 3-13 [facility] Comment on above: Performed By: #### H TRAEF BMP3M #### [facility] [address], [place] Calcium [Mass/Vol] 7.7 mg/dL Low 8.4-10.4 [facility] Comment on above: Performed By: #### H LALA BMP3M #### [facility] [address] [place] CO2 [Moles/Vol] 24 mmol/L Normal 22-30 [facility] Comment on above: Performed By: #### H LALA BMP3M #### [facility] [address], [place] Creatinine [Mass/Vol] 0.57 mg/dL Normal 0.52-1.25 [facility] Comment on above: Performed By: #### H LALA BMP3M #### [facility] [address], [place] eGFR OTHER > 90.0 Normal >60 [facility] Comment on above: Result Comment: KDIG [...] secretion. Performed By: #### MAGDALENA BOBO3M #### [facility] [address], [place] GFR/1.73 sq M.predicted among blacks MDRD (S/P/Bld) [Vol rate/Area] mL/min/{1.73_m2} Normal >60 [facility] Comment on above: Performed By: #### Micheal REEVES BMP3M #### [place] [address], [place] Glucose [Mass/Vol] 61 mg/dL Low 70-100 [facility] Comment on above: Performed By: #### Micheal REEVES BMP3M #### [place] [address], [place] Urea nitrogen [Mass/Vol] 8 mg/dL Low 9-20 [facility] Comment on above: Performed By: #### Micheal REEVES BMP3M #### [place] [address], [place] Potassium [Moles/Vol] 2.8 mmol/L Low 3.5-5.1 [facility] Comment on above: Performed By: #### Micheal REEVES BMP3M #### [place] [address], [place] Sodium [Moles/Vol] 136 mmol/L Normal 135-145 [facility] Comment on above: Performed By: #### Micheal REEVES BMP3M #### [place] [address], [place] Chloride [Moles/Vol] 107 mmol/L Normal 98-107 [facility] Comment on above: Performed By: #### Micheal REEVES BMP3M #### [place] [address], [place] Basic Metabolic Panel w/ Ref emmanuel to MGon 12-30-2021 Anion gap [Moles/Vol] 5 mmol/L 3 - 13 mmol/L [facility] Calcium [Mass/Vol] 7.7 mg/dL Low 8.4 - 10. 4 mg/dL [facility] Chloride [Moles/Vol] 107 mmol/L 98 - 10 7 mmol/L [facility] CO2 [Moles/Vol] 24 mmol/L 22 - 30 mmol/L [facility] Creatinine [Mass/Vol] 0.57 mg/dL 0.52 - 1.25 mg/dL [facility] eGFR mL/min 60 - P INF mL/min [facility] EGFR IF NonAfrican Bhutanese mL/min 60 - PINF mL/min [facility] Glucose [Mass/Vol] 61 mg/dL Low 70 - 100 mg/dL [facility] Interpretation and review of laboratory results Abnormal [facility] Potassium [Moles/Vol] 2.8 mmol/L Low 3.5 - 5.1 mmol/L [facility] Sodium [Moles/Vol] 136 mmol/L 135 - 145 mmol/L [facility] Urea nitrogen (BldV) [Mass/Vol] 8 mg/dL Low 9 - 20 mg/dL [facility] Blood Gas, Arterialon 2021 Base Excess, Arterial -1.7 mmol/L -3 - 3 mmol/L [facility] Work Phone: CO2 [Moles/Vol] 22.7 mmol/L Low 23 - 27 mmol/L [facility] Work Phone: FIO2 Arterial No data [facility] Work Phone: HCO3 (Bld) [Moles/Vol] 21.7 mmol/L 21 - 25 mmol/L [facility] Work Phone: Hemoglobin (Bld) [Mass/Vol] 11.7 g/dL ScreenOnly [facility] Work Phone: Interpretation and review of laboratory results Abnormal [facility] Work Phone: Oxygen saturation in Blood 91.8 % Low 95 - 100 % [facility] Work Phone: pCO2, Arterial 32.2 mm[Hg] Low 35 - 45 mm[Hg] [facility] Work Phone: pH, Arterial 7.446 [facility] Work Phone: pO2, Arterial 62.1 mm[Hg] Low 80 - 100 mm[Hg] [facility] Work Phone: [facility] Work Phone: CBC with Auto Differentialon 12-30-2021 [...] 10.2 g/dL Low 11.7 - 16 g/dL [facility] Interpretation and review of laboratory results [...] [#/Vol] 6.8 10*3/uL 3.6 - 10.7 10*3/uL [facility] CR Abdomen APon 12-30-2021 CR Abdomen AP Patient Name: JAIMIE MCGOVERN Diagnostic Radiology ACCESSION EXAM DATE/TIME PROCEDURE ORDERING PROVIDER [id number] 12/30/2021 07:53 EDT CR Abdomen AP [id number] -[place] CPT code 60277 Reason For Exam (CR Abdomen AP) assess [...] Transcribed Date and Time: 12/30/2021 11:07 Normal [facility] CR Chest Portableon 12-31-19 22 CR Chest Portable Patient Name: JAIMIE MCGOVERN Diagnostic Radiology ACCESSION EXAM DATE/TIME PROCEDURE ORDERING PROVIDER [id number] 12/30/2021 06:05 EDT CR Chest Portable MD MACIEL ANDREW CPT code 85613 Reason For Exam (CR Chest Portable) patient [...] R Transcribed Date and Time: 12/30/2021 7:09 [facility] CULTURE BLOOD (Two)on 2021 Microscopic examination of blood, culture CULTURE BLOOD (Two) --> Status: F Coagulase negative Staphylococcus species DETECTED. Presumptive identification performed using [employer] PCR methodology; confirmatory identification to follow. _ [facility] BCID2 PCR Panel can detect the following [...] VIM, and mcr-1. Presumptive identification performed using [employer] PCR methodology; confirmatory identification to follow. _ The [facility] BCID2 PCR Panel can detect the following [...] be positive with the same organism. Normal [facility] Comment on above: Performed By: #### C /BLT ####[facility] [employer] [place] [address] Culture, Blood 2on 2 Blood Culture, Routine Staphylococcus hominis Abnormal [facility] Work Phone: Interpretation and review of laboratory results Abnormal [facility] Work Phone: [facility] Work Phone: EKG 12 Leadon 12-30-2021 [facility] Work Phone: EKG 12 LeadOrdered By: Tiago Moses on 12-30-2021 [facility] Work Phone: Glucose,Bedsideon 12-30-2021 Glucose [Mass/Vol] 141 mg/dL High 70-100 [facility] Comment on above: Result Comment: Test performed by glucose meter. Results may be 10%-15% lower than serum/plasma values. (CLIA ID [id number]) Performed By: #### B GLU ####[facility] [employer] [place], [place] Glucose [Mass/Vol] 163 mg/dL High 70-100 [facility] Comment on above: Result Comment: Test performed by glucose meter. Results may be 10%-15% lower than serum/plasma values. (CLIA ID [id number]) Performed By: #### B MP3M, HEMDF, MG3, PHOS3, PCAL #### [facility] [address], [place] Glucose [Mass/Vol] 210 mg/dL High 70-100 [facility] Comment on above: Result Comment: Test performed by glucose meter. Results may be 10%-15% lower than serum/plasma values. (CLIA ID [id number]) Performed By: #### B MP3M, HEMDF, MG3, PHOS3, PCAL #### [place] [address], [place] Glucose [Mass/Vol] 63 mg/dL Low 70-100 [facility] Comment on above: Result Comment: Test performed by glucose meter. Results may be 10%-15% lower than serum/plasma values. (CLIA ID [id number]) Performed By: #### B MP3M, HEMDF, MG3, PHOS3, PCAL #### [facility] [employer] [facility] [address], [place] Glucose [Mass/Vol] 70 mg/dL Normal 70-100 [facility] Comment on above: Result Comment: Test performed by glucose meter. Results may be 10%-15% lower than serum/plasma values. (CLIA ID [id number]) Performed By: #### H EMDF, BMP3M #### [facility] [address], [place] Hemogram w/ Autodiffon 12-30 Abs Baso Cnt 0.0 10*3/uL Normal 0.0-0.2 [facility] Comment on above: Performed By: #### H EMDF, BMP3M #### [facility] [address], [place] Abs Neutrophile Cnt 5.5 10*3/uL Normal 1.8-7.0 [facility] Comment on above: Performed By: #### H LALA BMP3M #### [address] Basophils/100 WBC (Bld) 0.6 % Normal 0.0-2.0 [facility] Comment on above: Performed By: #### H LALA BMP3M #### [address] Eosinophils (Bld) [#/Vol] 0.0 10*3/uL Normal 0.0-0.5 [facility] Comment on above: Performed By: #### H LALA BMP3M #### [address] Eosinophils/100 WBC (Bld) 0.3 % Low 1.0-6.0 [facility] Comment on above: Performed By: #### H LALA BMP3M #### [address] Erythrocyte distribution width (RBC) [Ratio] 16.6 % High 11.5-14.5 [facility] Comment on above: Performed By: #### H LALA BMP3M #### [address] Granulocytes/100 WBC (Bld) 80.0 % Normal 40.0-80.0 [facility] Comment on above: Performed By: #### H LALA BMP3M #### [address] Hematocrit (Bld) [Volume fraction] 29.7 % Low 35.0-47.0 [facility] Comment on above: Performed By: #### H LALA BMP3M #### [address] Hemoglobin (Bld) [Mass/Vol] 10.2 g/dL Low 11.7-16.0 [facility] Comment on above: Performed By: #### H LALA BMP3M #### [address], [place] Lymphocytes (Bld) [#/Vol] 0.7 10*3/uL Low 1.0-4.3 [facility] Comment on above: Performed By: #### H LALA BMP3M #### [facility] [address], [place] Lymphocytes/100 WBC (Bld) 10.0 % Low 20.0-40.0 [facility] Comment on above: Performed By: #### H LALA BMP3M #### [place] [address], [place] MCH (RBC) [Entitic mass] 36.3 pg High 26.0-34.0 [facility] Comment on above: Performed By: #### H LALA BMP3M #### [place] [address], [place] MCHC 34.2 % Normal 32.0-36.0 [facility] Comment on above: Performed By: #### H LALA BMP3M #### [place] [address], [place] MCV (RBC) [Entitic vol] 106.2 fL High 79.0-98.0 [facility] Comment on above: Performed By: #### H LALA BMP3M #### [place] [address], [place] Monocytes (Bld) [#/Vol] 0.6 10*3/uL Normal 0.0-0.8 [facility] Comment on above: Performed By: #### H LALA BMP3M #### [place] [address], [place] Monocytes/100 WBC (Bld) 9.1 % Normal 2.0-10.0 [facility] Comment on above: Performed By: #### H LALA BMP3M #### [place] [address], [place] Platelet mean volume (Bld) [Entitic vol] 6.9 fL Low 7.4-12.4 [facility] Comment on above: Result Comment: MPV is a calculated measurement using platelet volume ratio. Performed By: #### H LALA BMP3M #### [facility] [address], [place] Platelets (Bld) [#/Vol] 161 10*3/uL Normal 140-440 [facility] Comment on above: Performed By: #### H LALA BMP3M #### [facility] [address] [place] RBC (Bld) [#/Vol] 2.80 10*6/uL Low 3.80-5.20 [facility] Comment on above: Performed By: #### H LALA BMP3M #### [place] [address], [place] WBC (Bld) [#/Vol] 6.8 10*3/uL Normal 3.6-10.7 [facility] Comment on above: Performed By: #### H LALA BMP3M #### [place] [address], [place] Hepatic/Renal Panelon 2021 ALP [Catalytic activity/Vol] 52 U/L Normal 38-126 [facility] Comment on above: Performed By: #### H LALA BMP3M #### [place] [address], [place] ALT [Catalytic activity/Vol] 11 U/L Normal 0-34 [facility] Comment on above: Result Comment: The ALT test is performed by an updated assay method. Please note that the reference intervals have been changed and are now sex specific. Performed By: #### H LALA BMP3M #### [facility] [address], [place] AST [Catalytic activity/Vol] 42 U/L Normal 15-46 [facility] Comment on above: Performed By: #### H LALA BMP3M #### [place] [address], [place] Calcium [Mass/Vol] 7.7 mg/dL Low 8.4-10.4 [facility] Comment on above: Performed By: #### H EMDF, BMP3M #### [facility] [address] [place] [address] Glucose [Mass/Vol] 70 mg/dL Normal 70-100 [facility] Comment on above: Performed By: #### H EMDF, BMP3M #### [facility] [address] [place] [address] Phosphate [Mass/Vol] 3.6 mg/dL Normal 2.5-4.5 [facility] Comment on above: Performed By: #### H EMDF, BMP3M #### [facility] [address] [place] [address] Protein [Mass/Vol] 4.8 g/dL Low 6.3-8.2 [facility] Comment on above: Performed By: #### H EMDF, BMP3M #### [facility] [address] [place] [address] Urea nitrogen [Mass/Vol] 8 mg/dL Low 9-20 [facility] Comment on above: Performed By: #### H EMDF, BMP3M #### [facility] [address] [place] [address] Anion gap [Moles/Vol] 6 mmol/L Normal 3-13 [facility] Comment on above: Performed By: #### H EMDF, BMP3M #### [facility] [address] [place] [address] Bilirubin [Mass/Vol] 1.1 mg/dL Normal 0.2-1.3 [facility] Comment on above: Performed By: #### H EMDF, BMP3M #### [facility] [address] [place] [address] Bilirubin.indirect [Mass/Vol] 0.0 mg/dL Normal 0.0-0.3 [facility] Comment on above: Performed By: #### H EMDF, BMP3M #### [facility] [address] [place] [address] CO2 [Moles/Vol] 23 mmol/L Normal 22-30 [facility] Comment on above: Performed By: #### H MAGDALENA REEVES3M #### [facility] [address] [place] Creatinine [Mass/Vol] 0.53 mg/dL Normal 0.52-1.25 [facility] Comment on above: Performed By: #### H LALA BMP3M #### [facility] [address], [place] eGFR OTHER > 90.0 Normal >60 [facility] Comment on above: Result Comment: KDIG [...] Performed By: #### H MAGDALENA REEVES3M #### [facility] [address], [place] GFR/1.73 sq M.predicted among blacks MDRD (S/P/Bld) [Vol rate/Area] mL/min/{1.73_m2} Normal >60 [facility] Comment on above: Performed By: #### H LALA BMP3M #### [facility] [address] [place], [place] Potassium [Moles/Vol] 2.7 mmol/L Low 3.5-5.1 [facility] Comment on above: Performed By: #### H LALA BMP3M #### [facility] [address] [place], [place] Sodium [Moles/Vol] 136 mmol/L Normal 135-145 [facility] Comment on above: Performed By: #### H EMDF BMP3M #### [facility] [address] [place] [address] Albumin [Mass/Vol] 2.3 g/dL Low 3.5-5.0 [facility] Comment on above: Performed By: #### H EMDF, BMP3M #### [facility] [address] [place] [address] Chloride [Moles/Vol] 108 mmol/L High 98-107 [facility] Comment on above: Performed By: #### H EMDF BMP3M #### [facility] [address] [place] [address] Magnesiumon 12-30-2021 Magnesium [Mass/Vol] 1.9 mg/dL Normal 1.6-2.3 [facility] Comment on above: Performed By: #### H EMDF BMP3M #### [facility] [address] [place] [address] Magnesium [Mass/Vol] 1.9 mg/dL 1.6 - 2 .3 mg/dL [facility] No Panel Informationon 12-30 Interpretation and review of laboratory results Abnormal [facility] Work Phone: [facility] Work Phone: Blood Culture, Routine [employer] Work Phone: Radiology Study observation (narrative) [facility] Work Phone: POCT GlucoseOrdered By: Rock Corbett on 12-30-2021 Glucose [Mass/Vol] 141 mg/dL High 70 - 100 mg/dL [facility] Work Phone: Interpretation and review of laboratory results Abnormal [facility] Work Phone: [facility] Work Phone: POCT Glucoseon 12-30-2021 [facility] Glucose [Mass/Vol] 210 mg/dL High 70 - 100 mg/dL [facility] Work Phone: Glucose [Mass/Vol] 163 mg/dL High 70 - 100 mg/dL [facility] Work Phone: [facility] POCT GlucoseOrdered By: Laura Hilliard on 12-30-2021 Glucose [Mass/Vol] 63 mg/dL Low 70 - 100 mg/dL [facility] Work Phone: Interpretation and review of laboratory results Abnormal [facility] Work Phone: [facility] Work Phone: POCT GlucoseOrdered By: Chidi Brewer on 12-30-2021 Glucose [Mass/Vol] 70 mg/dL 70 - 100 mg/dL [facility] [facility] Renal & Liver Profileon Albumin [Mass/Vol] [...] P INF mL/min [facility] EGFR IF NonAfrican Bhutanese mL/min 60 - PINF mL/min [facility] Free PSA/Total PSA [Mass fraction] 4.8 g/dL Low 6.3 - 8.2 g/dL [facility] Glucose [Mass/Vol] 70 mg/dL 70 - 100 mg/dL [facility] Interpretation and review of laboratory results Abnormal [facility] Phosphate [Mass/Vol] 3.6 mg/dL 2.5 - 4 .5 mg/dL [facility] Potassium [Moles/Vol] 2.7 mmol/L Low 3.5 - 5.1 mmol/L [facility] Sodium [Moles/Vol] 136 mmol/L 135 - 145 mmol/L [facility] Urea nitrogen (BldV) [Mass/Vol] 8 mg/dL Low 9 - 20 mg/dL [facility] Troponinon 12-30-2021 Interpretation and review of laboratory results Abnormal [facility] Work Phone: Troponin I.cardiac [Mass/Vol] 0.124 ng/mL High 0 - 0.034 ng/mL [facility] Work Phone: [facility] Work Phone: Troponin Ion 12-30-2021 Troponin I.cardiac [Mass/Vol] 0.124 ng/mL High 0.000-0.034 [facility] Comment on above: Result Comment: . Performed By: #### B MP3M, HEMDF, MG3, PHOS3, PCAL #### [facility] [employer] [address] [place] [address] [place] GUIDE THORACENTESISon [facility] Work Phone: US GUIDE THORACENTESISOrdere d By: Quinn Pastor on 12-30-2021 [facility] Work Phone: Vitamin B12on 12-30-2021 Cobalamin (Vitamin B12) [Mass/Vol] 459 pg/mL Normal 239-931 [facility] Comment on above: Performed By: #### H EMDF, BMP3M #### [facility] [employer] [address] [place] [address] Cobalamin (Vitamin B12) [Mass/Vol] 459 pg/mL 239 - 931 pg/mL [facility] XR ABDOMEN (KUB) (SINGLE AP VIEW)on 12-30-2021 [facility] Work Phone: XR ABDOMEN (KUB) (SINGLE AP VIEW)Ordered By: Faheem Mahajan on 12-30-2021 [facility] Work Phone: XR CHEST PORTABLEon 12-31-19 [facility] Work Phone: XR CHEST PORTABLEOrdered By: Darlene Carlin on 12-30-2021 [facility] Work Phone: Ammoniaon 12-29-2021 Ammonia (P) [Mass/Vol] ug/dL Normal 9-30 [facility] Comment on above: Performed By: #### B MP3M, HEMDF, MG3, PHOS3, PCAL #### [address] [address] [place], [place] Ammonia (P) [Mass/Vol] ug/dL 9 - 30 umol/L [facility] Work Phone: [facility] Work Phone: Arterial Respiratory Panel - Rapid Responseon 12-29-2021 Base Excess -2.3 mmol/L Normal -3.0-3.0 [facility] Comment on above: Performed By: #### B MP3M, HEMDF, MG3, PHOS3, PCAL #### [address] [address] [place], [place] CO2 [Moles/Vol] 21.9 mmol/L Low 23.0-27.0 [facility] Comment on above: Performed By: #### B MP3M, HEMDF, MG3, PHOS3, PCAL #### [address] [address] [place], [place] HCO3 (Bld) [Moles/Vol] 20.9 mmol/L Low 21.0-25.0 S [facility] Comment on above: Performed By: #### B MP3M, HEMDF, MG3, PHOS3, PCAL #### [address] Hematocrit, Whole Blood 40 % Normal 37-52 S [facility] Comment on above: Result Comment: Perf ormed by CLIA ID: [id number] [place], [place] Performed By: #### B MP3M, HEMDF, MG3, PHOS3, PCAL #### [address] [place], [place] Oxygen (Bld) [Partial pressure] 64.8 mm[Hg] Low 80.0-100.0 [facility] Comment on above: Performed By: #### B MP3M, HEMDF, MG3, PHOS3, PCAL #### [address] [address] [place], [place] Oxygen saturation in Blood 93.3 % Low 95.0-100.0 [facility] Comment on above: Performed By: #### B MP3M, HEMDF, MG3, PHOS3, PCAL #### [address] [place], [place] pCO2 31.1 mm[Hg] Low 35.0-45.0 [facility] Comment on above: Performed By: #### B MP3M, HEMDF, MG3, PHOS3, PCAL #### [address] [place], [place] pH 7.436 Normal 7.350-7.450 [facility] Comment on above: Performed By: #### B MP3M, HEMDF, MG3, PHOS3, PCAL #### [address] [address] [place] [place], [place] Potassium [Moles/Vol] 3.4 mmol/L Normal 3.4-5.1 [facility] Comment on above: Performed By: #### B MP3M, HEMDF, MG3, PHOS3, PCAL #### [address] [place], [place] Sodium [Moles/Vol] 135 mmol/L Normal 133-145 [facility] Comment on above: Performed By: #### B MP3M, HEMDF, MG3, PHOS3, PCAL #### [address] [address] [place], [place] Basic Metabolic Panelon 09-0 -2021 Anion gap [Moles/Vol] 6 mmol/L Normal 3-13 [facility] Comment on above: Performed By: #### B MP3M, HEMDF, MG3, PHOS3, PCAL #### [facility] [address], [place] Calcium [Mass/Vol] 8.1 mg/dL Low 8.4-10.4 [facility] Comment on above: Performed By: #### B MP3M, HEMDF, MG3, PHOS3, PCAL #### [facility] [address], [place] CO2 [Moles/Vol] 23 mmol/L Normal 22-30 [facility] Comment on above: Performed By: #### B MP3M, HEMDF, MG3, PHOS3, PCAL #### [address] [address] [place], [place] Glucose [Mass/Vol] 104 mg/dL High 70-100 [facility] Comment on above: Performed By: #### B MP3M, HEMDF, MG3, PHOS3, PCAL #### [address] [address], [place] Urea nitrogen [Mass/Vol] 7 mg/dL Low 9-20 [facility] Comment on above: Performed By: #### B MP3M, HEMDF, MG3, PHOS3, PCAL #### [address] [address] [place], [place] Creatinine [Mass/Vol] 0.50 mg/dL Low 0.52-1.25 [facility] Comment on above: Performed By: #### B MP3M, HEMDF, MG3, PHOS3, PCAL #### [address] [address] [address] [place], [place] eGFR OTHER > 90.0 Normal >60 [facility] Comment on above: Result Comment: KDIG [...] B MP3M, HEMDF, MG3, PHOS3, PCAL #### [address] [address] [place], [place] GFR/1.73 sq M.predicted among blacks MDRD (S/P/Bld) [Vol rate/Area] mL/min/{1.73_m2} Normal >60 [facility] Comment on above: Performed By: #### B MP3M, HEMDF, MG3, PHOS3, PCAL #### [address] [address] [place], [place] Potassium [Moles/Vol] 3.4 mmol/L Low 3.5-5.1 [facility] Comment on above: Performed By: #### B MP3M, HEMDF, MG3, PHOS3, PCAL #### [address] [address] [place] Sodium [Moles/Vol] 136 mmol/L Normal 135-145 [facility] Comment on above: Performed By: #### B MP3M, HEMDF, MG3, PHOS3, PCAL #### [address] [address] [place], [place] Chloride [Moles/Vol] 107 mmol/L Normal 98-107 [facility] Comment on above: Performed By: #### B MP3M, HEMDF, MG3, PHOS3, PCAL #### [address] Basic Metabolic Panel w/ Ref emmanuel to MGon 12-29-2021 Anion gap [Moles/Vol] 6 mmol/L 3 - 13 mmol/L [facility] Work Phone: Calcium [Mass/Vol] 8.1 mg/dL Low 8.4 - 10. 4 mg/dL [facility] Work Phone: Chloride [Moles/Vol] 107 mmol/L 98 - 10 7 mmol/L [facility] Work Phone: CO2 [Moles/Vol] 23 mmol/L 22 - 30 mmol/L [facility] Work Phone: Creatinine [Mass/Vol] 0.5 mg/dL Low 0.52 - 1.25 mg/dL [facility] Work Phone: eGFR mL/min 60 - P INF mL/min [facility] Work Phone: EGFR IF NonAfrican Bhutanese mL/min 60 - PINF mL/min [facility] Work Phone: Glucose [Mass/Vol] 104 mg/dL High 70 - 100 mg/dL [facility] Work Phone: Potassium [Moles/Vol] 3.4 mmol/L Low 3.5 - 5.1 mmol/L [facility] Work Phone: Sodium [Moles/Vol] 136 mmol/L 135 - 145 mmol/L [facility] Work Phone: Urea nitrogen (BldV) [Mass/Vol] 7 mg/dL Low 9 - 20 mg/dL [facility] Work Phone: Body Fluid Cell Count with D ifferentialon 12-29-2021 Fluid Type Thoracentesis [facility] Nucl Cell, Fluid 6336 {cells}/uL [facility] RED BLOOD CELLS, BODY FLUID 48267 {RBC}/uL [facility] CBC with Auto Differentialon 12-29-2021 Absolute Baso # 0.0 10*3/uL 0 - 0.2 10*3/uL [facility] Absolute Neut # 9.8 10*3/uL High [...] [Mass/Vol] 12.1 g/dL 11.7 - 16 g/dL [facility] Interpretation and review of laboratory results [...] [#/Vol] 10.6 10*3/uL 3.6 - 10.7 10*3/uL [facility] CR Abdomen APon 12-29-2021 CR Abdomen AP Patient Name: JAIMIE MCGOVERN Diagnostic Radiology ACCESSION EXAM DATE/TIME PROCEDURE ORDERING PROVIDER [id number] 12/29/2021 10:58 EDT CR Abdomen AP [id number] -NATHALIE, ANEIL CPT code 93572 Reason For Exam (CR Abdomen AP) distention, [...] Transcribed Date and Time: 12/29/2021 11:13 Normal [facility] CR Chest Portableon 12-30-19 CR Chest Portable Patient Name: JAIMIE MCGOVERN Diagnostic Radiology ACCESSION EXAM DATE/TIME PROCEDURE ORDERING PROVIDER [id number] 12/29/2021 05:47 EDT CR Chest Portable [id number] -MONIKA ARAUJO CPT code 59836 Reason For Exam (CR Chest Portable) pneumomediastinum [...] Transcribed Date and Time: 12/29/2021 8:11 Normal [facility] CR Chest Portable Patient Name: JAIMIE MCGOVERN Diagnostic Radiology ACCESSION EXAM DATE/TIME PROCEDURE ORDERING PROVIDER [id number] 12/29/2021 00:49 EDT CR Chest Portable MD MACIEL ANDREW CPT code 61696 Reason For Exam (CR Chest Portable) patient with desaturation and tacypnea Report Chest one view HISTORY: Desaturation Right IJ central line. Moderate right pleural effusion. Adjacent right lower lung infiltrate. Cardiomegaly. Report Dictated on Final Dictated: 12/29/2021 0:47 am Dictating Physician: MD LIAO MALAY Signed Date and Time: 12/29/2021 0:47 am Signed by: MD LIAO MALAY Transcribed Date and Time: 12/29/2021 0:47 Normal [facility] CULTURE AND STAIN - FLUIDon 12-29-2021 CULTURE AND STAIN - FLUID CULTURE & STAIN - FLUID --> Status: F No growth at 5 days. STAIN GRAM --> Status: F Many polymorphonuclear cells/lpf. No organisms seen. No organisms seen. Normal [facility] Comment on above: Performed By: #### B MP3M, HEMDF, MG3, PHOS3, PCAL #### [facility] [address], [place] Cell Count,Body Fluidon Nucleated Cells 6336 {cells}/uL Normal [facility] Comment on above: Order Comment: rt. t hora qx=375 ml Performed By: #### B GLU #### [facility] [address], [place] [address] {RBC}/uL Normal [facility] Comment on above: Order Comment: rt. t hora ax=427 ml Performed By: #### B GLU #### [facility] [address], [place] Fluid Type Thoracentesis Normal [facility] Comment on above: Order Comment: rt. t hora to=052 ml Performed By: #### B GLU #### [facility] [address], [place] Differential, Body Fluidon 0 12-29-2021 Differential Count 100 [facility] Monocytes/100 WBC (Bld) 1 % S [facility] Neutrophils/100 WBC (Bld) 99 % [facility] Differential,Body Fluidson 0 12-29-2021 Monocytes/100 WBC (Bld) 1 % Normal [facility] Comment on above: Order Comment: rt. t hora nw=420 ml Performed By: #### B MP3M, HEMDF, MG3, PHOS3, PCAL #### [facility] [address] [place] [address] Neutrophils/100 WBC (Bld) 99 % Normal [facility] Comment on above: Order Comment: rt. t hora az=252 ml Performed By: #### B MP3M, HEMDF, MG3, PHOS3, PCAL #### [facility] [address] [place] [address] Cells Counted for Diff 100 Normal [facility] Comment on above: Order Comment: rt. t hora io=720 ml Performed By: #### B MP3M, HEMDF, MG3, PHOS3, PCAL #### [facility] [address] [place] [address] EKG 12 Leadon 12-29-2021 [facility] Work Phone: [facility] Work Phone: [facility] Work Phone: EKG 12 LeadOrdered By: Phoebe Mccracken on 12-29-2021 [facility] Work Phone: Hemogram w/ Autodiffon 12-29 Abs Baso Cnt 0.0 10*3/uL Normal 0.0-0.2 [facility] Comment on above: Performed By: #### B MP3M, HEMDF, MG3, PHOS3, PCAL #### [facility] [address] [place] [address] Abs Neutrophile Cnt 9.8 10*3/uL High 1.8-7.0 [facility] Comment on above: Performed By: #### B MP3M, HEMDF, MG3, PHOS3, PCAL #### [facility] [address] [place] [address] Basophils/100 WBC (Bld) 0.4 % Normal 0.0-2.0 [facility] Comment on above: Performed By: #### B MP3M, HEMDF, MG3, PHOS3, PCAL #### [address] [address] [place], [place] Eosinophils (Bld) [#/Vol] 0.0 10*3/uL Normal 0.0-0.5 [facility] Comment on above: Performed By: #### B MP3M, HEMDF, MG3, PHOS3, PCAL #### [address] [address], [place] Eosinophils/100 WBC (Bld) 0.1 % Low 1.0-6.0 [facility] Comment on above: Performed By: #### B MP3M, HEMDF, MG3, PHOS3, PCAL #### [address] Erythrocyte distribution width (RBC) [Ratio] 16.8 % High 11.5-14.5 [facility] Comment on above: Performed By: #### B MP3M, HEMDF, MG3, PHOS3, PCAL #### [address] Granulocytes/100 WBC (Bld) 92.0 % High 40.0-80.0 [facility] Comment on above: Performed By: #### B MP3M, HEMDF, MG3, PHOS3, PCAL #### [address] [address] [place], [place] Hematocrit (Bld) [Volume fraction] 35.3 % Normal 35.0-47.0 [facility] Comment on above: Performed By: #### B MP3M, HEMDF, MG3, PHOS3, PCAL #### [address] Hemoglobin (Bld) [Mass/Vol] 12.1 g/dL Normal 11.7-16.0 [facility] Comment on above: Performed By: #### B MP3M, HEMDF, MG3, PHOS3, PCAL #### [address] [address] [place], [place] Lymphocytes (Bld) [#/Vol] 0.4 10*3/uL Low 1.0-4.3 [facility] Comment on above: Performed By: #### B MP3M, HEMDF, MG3, PHOS3, PCAL #### [facility] [address], [place] Lymphocytes/100 WBC (Bld) 3.5 % Low 20.0-40.0 [facility] Comment on above: Performed By: #### B MP3M, HEMDF, MG3, PHOS3, PCAL #### [address] [place], [place] MCH (RBC) [Entitic mass] 36.6 pg High 26.0-34.0 [facility] Comment on above: Performed By: #### B MP3M, HEMDF, MG3, PHOS3, PCAL #### [address] MCHC 34.2 % Normal 32.0-36.0 [facility] Comment on above: Performed By: #### B MP3M, HEMDF, MG3, PHOS3, PCAL #### [address] MCV (RBC) [Entitic vol] 106.9 fL High 79.0-98.0 [facility] Comment on above: Performed By: #### B MP3M, HEMDF, MG3, PHOS3, PCAL #### [address] [address], [place] Monocytes (Bld) [#/Vol] 0.4 10*3/uL Normal 0.0-0.8 [facility] Comment on above: Performed By: #### B MP3M, HEMDF, MG3, PHOS3, PCAL #### [address] [place], [place] Monocytes/100 WBC (Bld) 4.0 % Normal 2.0-10.0 [facility] Comment on above: Performed By: #### B MP3M, HEMDF, MG3, PHOS3, PCAL #### [facility] [address], [place] Platelet mean volume (Bld) [Entitic vol] 6.7 fL Low 7.4-12.4 [facility] Comment on above: Result Comment: MPV is a calculated measurement using platelet volume ratio. Performed By: #### B MP3M, HEMDF, MG3, PHOS3, PCAL #### [facility] [address], [place] Platelets (Bld) [#/Vol] 178 10*3/uL Normal 140-440 [facility] Comment on above: Performed By: #### B MP3M, HEMDF, MG3, PHOS3, PCAL #### [address] [place], [place] RBC (Bld) [#/Vol] 3.30 10*6/uL Low 3.80-5.20 [facility] Comment on above: Performed By: #### B MP3M, HEMDF, MG3, PHOS3, PCAL #### [address] WBC (Bld) [#/Vol] 10.6 10*3/uL Normal 3.6-10.7 [facility] Comment on above: Performed By: #### B MP3M, HEMDF, MG3, PHOS3, PCAL #### [address] [place], [place] LDHon 12-29-2021 LDH 199 U/L Normal 120-246 [facility] Comment on above: Performed By: #### H EMDF, BMP3M #### [address] [address] [place] LDH, Body Fluidon 12-29-2021 LDH, Body Fluid 1025 U/L Normal No Range [facility] Comment on above: Order Comment: rt. t hora ie=437 ml Performed By: #### B GLU #### [address] [address] [place], [place] LEGIONELLA AG, URINEon 12-29 LEGIONELLA AG, URINE Not detected Normal [facility] Comment on above: Performed By: #### B MP3M, HEMDF, MG3, PHOS3, PCAL #### [address] [address] Lactate Dehydrogenaseon LD 199 U/L 120 - 246 U/L [facility] Lactate Dehydrogenase, Body Fluidon 12-29-2021 LD, Fluid 1025 U/L No Range [facility] Lactic Acidon 12-29-2021 Lactate [Moles/Vol] 1.0 mmol/L Normal 0.7-2.0 [facility] Comment on above: Performed By: #### B MP3M, HEMDF, MG3, PHOS3, PCAL #### [address] [address] Lactate [Moles/Vol] 1 mmol/L 0.7 - 2 mmol/L [facility] Lactate [Moles/Vol] 2.1 mmol/L Critically high 0.7-2.0 [facility] Comment on above: Performed By: #### B MP3M, HEMDF, MG3, PHOS3, PCAL #### [address] [address] Lactate [Moles/Vol] 2.1 mmol/L Critically high 0.7 - 2 mmol/L [facility] Legionella Antigen, Urineon 12-29-2021 LEGIONELLA ANTIGEN Not detected [facility] Work Phone: Magnesiumon 12-29-2021 Magnesium [Mass/Vol] 1.6 mg/dL Normal 1.6-2.3 [facility] Comment on above: Performed By: #### B MP3M, HEMDF, MG3, PHOS3, PCAL #### [address] [address] Magnesium [Mass/Vol] 1.6 mg/dL 1.6 - 2 .3 mg/dL [facility] Work Phone: [facility] Work Phone: Medical Cytology 09-06-[address] [facility] [id number] DEPARTMENT OF PATHOLOGY AND [facility] LABORATORY MEDICINE [address] [place] [address] FINAL MEDICAL CYTOLOGY REPORT NAME: JAIMIE MCGOVERN : 1945 76 Y F BILLING NO.: [id number] LOCATION: 1I T2 INPAT T223 PROCEDURE 12/29/2021 01 DATE: PHYSICIAN: MONIKA ARAUJO MD RECEIVED DATE: [...] characteristics determined by the clinical laboratories of [facility] [employer] [facility]. They have not been cleared by [...] negativity on decalcified specimens. Case reviewed at [facility] [address] [place] [address]. DEPARTMENT OF PATHOLOGY AND LABORATORY MEDICINE [place], [place] [address] [email or web address] Normal [facility] No Panel Informationon 12-29 [facility] Work Phone: Radiology Study observation (narrative) [facility] Work Phone: Interpretation and review of laboratory results Abnormal [facility] Interpretation and review of laboratory results Abnormal [facility] POC Arterial Respiratory Pastor el - Rapid Responseon 12-29-2021 Base Excess, Arterial -2.3 mmol/L -3 - 3 mmol/L [facility] CO2 [Moles/Vol] 21.9 mmol/L Low 23 - 27 mmol/L [facility] HCO3 (Bld) [Moles/Vol] 20.9 mmol/L Low 21 - 25 mmol/L [facility] Hematocrit (Bld) [Volume fraction] 40 % 37 - 52 % [facility] Oxygen saturation in Blood 93.3 % Low 95 - 100 % [facility] pCO2, Arterial 31.1 mm[Hg] Low 35 - 45 mm[Hg] [facility] pH, Arterial 7.436 [facility] pO2, Arterial 64.8 mm[Hg] Low 80 - 100 mm[Hg] [facility] Potassium [Moles/Vol] 3.4 mmol/L 3.4 - 5.1 mmol/L [facility] Sodium [Moles/Vol] 135 mmol/L 133 - 145 mmol/L [facility] Procalcitoninon 12-29-2021 Procalcitonin 3.68 ng/mL High 0.00-0.09 [facility] Comment on above: Performed By: #### B MP3M, HEMDF, MG3, PHOS3, PCAL #### [facility] [address] [place] [address] Interpretation See Below [facility] Work Phone: Interpretation and review of laboratory results Abnormal [facility] Work Phone: [phone] Procalcitonin 3.68 ng/mL High 0 - 0.09 ng/mL [facility] Work Phone: [phone] [facility] Work Phone: [phone] Interpretation See Below Normal [facility] Comment on above: Result Comment: PCT <0.50 = Low risk of severe sepsis and/or septic shock. PCT >2.00 = High risk of severe sepsis and/or septic shock. Performed By: #### B MP3M, HEMDF, MG3, PHOS3, PCAL #### [facility] [address] [place] Protein, Totalon 12-29-2021 Free PSA/Total PSA [Mass fraction] 5.5 g/dL Low 6.3 - 8.2 g/dL [facility] Interpretation and review of laboratory results Abnormal [facility] Protein, Total Body Fluidon 12-29-2021 Protein,Total-Body Fld 2.9 g/dL Normal No Range [facility] Comment on above: Order Comment: rt. t hora gz=320 ml Performed By: #### B GLU #### [facility] [address] [place] STREP PNEUMO ANTIGEN, URINEo n 12-29-2021 STREP PNEUMO ANTIGEN, URINE Not detected Normal [facility] Comment on above: Performed By: #### B MP3M, HEMDF, MG3, PHOS3, PCAL #### [facility] [address] [place] [address] Strep Pneumoniae Antigenon 0 12-29-2021 STREP PNEUMONIAE ANTIGEN, URINE Not detected [facility] Work Phone: TSHon 12-29-2021 TSH Qn 2.263 u[IU]/mL 0.465 - 4.68 u[IU]/mL [facility] Work Phone: [phone] [facility] Work Phone: [phone] Thyroid Stim. Hormoneon Thyroid Stim. Hormone 2.263 u[IU]/mL Normal 0.465-4.68 0 [facility] Comment on above: Performed By: #### B MP3M, HEMDF, MG3, PHOS3, PCAL #### [address] [address] Total Proteinon 12-29-2021 Protein [Mass/Vol] 5.5 g/dL Low 6.3-8.2 [facility] Comment on above: Performed By: #### H EMDF, BMP3M #### [address] [address] Total Protein, Fluidon 12-29 Fluid Type Thoracentesis [facility] Protein, body fluid 2.9 g/dL No Range [facility] Troponinon 12-29-2021 Interpretation and review of laboratory results Abnormal [facility] Work Phone: [phone] Troponin I.cardiac [Mass/Vol] 0.156 ng/mL High 0 - 0.034 ng/mL [facility] Work Phone: [phone] [facility] Work Phone: [phone] Interpretation and review of laboratory results Abnormal [facility] Work Phone: [phone] Troponin I.cardiac [Mass/Vol] 0.162 ng/mL High 0 - 0.034 ng/mL [facility] Work Phone: [phone] [facility] Work Phone: [phone] Interpretation and review of laboratory results Abnormal [facility] Work Phone: [phone] Troponin I.cardiac [Mass/Vol] 0.039 ng/mL High 0 - 0.034 ng/mL [facility] Work Phone: [phone] [facility] Work Phone: [phone] Troponin Ion 12-29-2021 Troponin I.cardiac [Mass/Vol] 0.156 ng/mL High 0.000-0.034 [facility] [employer] [facility] Comment on above: Result Comment: . Performed By: #### H EMDF, BMP3M #### [employer] [facility] [address], [place] Troponin I.cardiac [Mass/Vol] 0.162 ng/mL High 0.000-0.034 [facility] [employer] Comment on above: Result Comment: . Performed By: #### T ROPN ####[employer] [id number] [place], [place] Troponin I.cardiac [Mass/Vol] 0.039 ng/mL High 0.000-0.034 [facility] [employer] Comment on above: Result Comment: . Performed By: #### B MP3M, HEMDF, MG3, PHOS3, PCAL #### [employer] [facility] [address], [place] Thora-Aspir Pleura w/ Shawanda geon 12-29-2021 [place] Thora-Aspir Pleura w/ Image Patient Name: JAIMIE MCGOVERN Ultrasound ACCESSION EXAM DATE/TIME PROCEDURE ORDERING PROVIDER [id number] 12/29/2021 16:07 EDT [place] Thora-Aspir Pleura w/ [id number] -[place]BITOT[place], Image MONIKA CPT code 28338 Reason For Exam (US Thora-Aspir Pleura w/ [...] Transcribed Date and Time: 12/29/2021 4:14 Normal [facility] XR ABDOMEN (KUB) (SINGLE AP VIEW)on 12-29-2021 [facility] Work Phone: XR ABDOMEN (KUB) (SINGLE AP VIEW)Ordered By: Froilan Loyola on 12-29-2021 [facility] Work Phone: XR CHEST PORTABLEon 12-30-19 22 [facility] Work Phone: [facility] Work Phone: XR CHEST PORTABLEOrdered By: Jorge Mckenna on 12-29-2021 [facility] Work Phone: XR CHEST PORTABLEOrdered By: Rafael Liao on 12-29-2021 [facility] Work Phone: CR Chest Portableon 12-29-19 22 CR Chest Portable Patient Name: AVENDANO-MOZELLE, JAIMIE Diagnostic Radiology ACCESSION EXAM DATE/TIME PROCEDURE ORDERING PROVIDER [id number] 12/28/2021 12:22 EDT CR Chest Portable MD GONZALEZ DAVID CPT code 44185 Reason For Exam (CR Chest Portable) s/p [...] Transcribed Date and Time: 12/28/2021 1:35 Normal [facility] CR Chest Portable Patient Name: JAIMIE MCGOVERN Diagnostic Radiology ACCESSION EXAM DATE/TIME PROCEDURE ORDERING PROVIDER [id number] 12/28/2021 05:56 EDT CR Chest Portable [id number] MONIKA AYOUB CPT code 77669 Reason For Exam (CR Chest Portable) pneumomediastinum [...] Transcribed Date and Time: 12/28/2021 8:18 Normal [facility] Lactic Acidon 12-28-2021 Lactate [Moles/Vol] 2.4 mmol/L Critically high 0.7-2.0 [facility] Comment on above: Performed By: #### H EMDF, BMP3M #### [facility] [address] [place], [place] Lactate [Moles/Vol] 3.6 mmol/L Critically high 0.7-2.0 [facility] Comment on above: Performed By: #### L ACT3 ####[address] [place], [place] Interpretation and review of laboratory results Abnormal [facility] Lactate [Moles/Vol] 3.6 mmol/L Critically high 0.7 - 2 mmol/L [facility] No Panel Informationon 12-28 [facility] Work Phone: [phone] [facility] Radiology Study observation (narrative) [facility] Work Phone: Troponinon 12-28-2021 Troponin I.cardiac [Mass/Vol] 0.027 ng/mL 0 - 0.034 ng/mL [facility] Work Phone: [phone] Troponin I.cardiac [Mass/Vol] 0.025 ng/mL 0 - 0.034 ng/mL [facility] Work Phone: Troponin Ion 12-28-2021 Troponin I.cardiac [Mass/Vol] 0.027 ng/mL Normal 0.000-0.034 [facility] Comment on above: Result Comment: . Performed By: #### T ROPN ####[address] Troponin I.cardiac [Mass/Vol] 0.025 ng/mL Normal 0.000-0.034 [facility] Comment on above: Result Comment: . Performed By: #### T ROPN ####[facility] [place], [place] XR CHEST PORTABLEon 12-29-19 [facility] Work Phone: [facility] Work Phone: [facility] Work Phone: XR CHEST PORTABLEOrdered By: Unknown Result on 12-28-2021 [facility] Absolute lymphocyte counton 12-27-2021 Lymphocytes Auto (Unsp spec) [#/Vol] 0.99 10*3/uL 0.83-4.51 [facility] Work Phone: Add On Lab Teston 12-27-2021 Add On Accepted [facility] Add on test from HISon 12-27 Add on test from HIS Accepted Normal [facility] Comment on above: Result Comment: Spec imen available & acceptable for analysis. Performed By: #### B MP3M, HEMDF, MG3, PHOS3, PCAL #### [facility] [address] [place], [place] Basic Metabolic Panelon Anion gap [Moles/Vol] 7 mmol/L Normal 3-13 [facility] Comment on above: Performed By: #### B MP3M, HEMDF, MG3, PHOS3, PCAL #### [facility] [address], [place] Calcium [Mass/Vol] 7.9 mg/dL Low 8.4-10.4 [facility] Comment on above: Performed By: #### B MP3M, HEMDF, MG3, PHOS3, PCAL #### [facility] [address] [place], [place] CO2 [Moles/Vol] 20 mmol/L Low 22-30 [facility] Comment on above: Performed By: #### B MP3M, HEMDF, MG3, PHOS3, PCAL #### [facility] [address] [place], [place] Glucose [Mass/Vol] 120 mg/dL High 70-100 [facility] Comment on above: Performed By: #### B MP3M, HEMDF, MG3, PHOS3, PCAL #### [facility] [address] [place], [place] Urea nitrogen [Mass/Vol] 9 mg/dL Normal 9-20 [facility] Comment on above: Performed By: #### B MP3M, HEMDF, MG3, PHOS3, PCAL #### [address] Creatinine [Mass/Vol] 0.52 mg/dL Normal 0.52-1.25 [facility] Comment on above: Performed By: #### B MP3M, HEMDF, MG3, PHOS3, PCAL #### [address] eGFR OTHER > 90.0 Normal >60 [facility] Comment on above: Result Comment: KDIG [...] B MP3M, HEMDF, MG3, PHOS3, PCAL #### [address] GFR/1.73 sq M.predicted among blacks MDRD (S/P/Bld) [Vol rate/Area] mL/min/{1.73_m2} Normal >60 [facility] Comment on above: Performed By: #### B MP3M, HEMDF, MG3, PHOS3, PCAL #### [facility] [address] [place] [address] Chloride [Moles/Vol] 112 mmol/L High 98-107 [facility] Comment on above: Performed By: #### B MP3M, HEMDF, MG3, PHOS3, PCAL #### [facility] [address] [place] [address] Potassium [Moles/Vol] 4.4 mmol/L Normal 3.5-5.1 [facility] Comment on above: Result Comment: Slig htly hemolysed, interpret with caution. Performed By: #### B MP3M, HEMDF, MG3, PHOS3, PCAL #### [facility] [address] [place] [address] Sodium [Moles/Vol] 140 mmol/L Normal 135-145 [facility] Comment on above: Performed By: #### B MP3M, HEMDF, MG3, PHOS3, PCAL #### [facility] [address] [place] [address] Anion gap [Moles/Vol] 7 mmol/L 3 - 13 mmol/L [facility] Work Phone: Calcium [Mass/Vol] 7.9 mg/dL Low 8.4 - 10. 4 mg/dL [facility] Work Phone: [phone] Chloride [Moles/Vol] 112 mmol/L High 98 - 10 7 mmol/L [facility] Work Phone: [phone] CO2 [Moles/Vol] 20 mmol/L Low 22 - 30 mmol/L [facility] Work Phone: [phone] Creatinine [Mass/Vol] 0.52 mg/dL 0.52 - 1.25 mg/dL [facility] Work Phone: eGFR mL/min 60 - P INF mL/min [facility] Work Phone: [phone] EGFR IF NonAfrican Bhutanese mL/min 60 - PINF mL/min [facility] Work Phone: Glucose [Mass/Vol] 120 mg/dL High 70 - 100 mg/dL [facility] Work Phone: [phone] Interpretation and review of laboratory results Abnormal [facility] Work Phone: [phone] Potassium [Moles/Vol] 4.4 mmol/L 3.5 - 5.1 mmol/L [facility] Work Phone: [phone] Sodium [Moles/Vol] 140 mmol/L 135 - 145 mmol/L [facility] Work Phone: [phone] Urea nitrogen (BldV) [Mass/Vol] 9 mg/dL 9 - 20 mg/dL [facility] Work Phone: [phone] [facility] Work Phone: [phone] Basophil percentageon 2021 Lactate [Moles/Vol] 2.5 mmol/L 0.4-2.0 [facility] Work Phone: Comment on above: Critical Result(s) C alled at: 09:11:21 12/27/2021 by: Mercedes Panda to [facility]. Results read back by same. Basophil percentage 0 SEEN /hpf 0-5 [facility] Work Phone: Basophils/100 WBC (Bld) 0.5 % 0-1 [facility] Work Phone: Bilirubin [Mass/Vol] 0.20 mg/dL 0.20-1.00 [facility] Work Phone: Comment on above: For patients on eltr ombopag therapy, use of Dimension [place] TBIL is not recommended. Chloride [Moles/Vol] 114 mmol/L 98-107 [facility] Work Phone: Eosinophils/100 WBC (Bld) 0.8 % 0-5 [facility] Work Phone: Glucose [Mass/Vol] 173 mg/dL 74-106 [facility] Work Phone: Comment on above: Fasting Glucose resu lt greater than or equal to 126 mg/dL suggests DIABETES MELLITUS per A.D.A. criteria. Neutrophils (Bld) [#/Vol] 12.6 10*3/uL 2.0-7.7 [facility] Work Phone: Neutrophils/100 WBC (Bld) 83.6 % 47-70 [facility] Work Phone: Potassium [Moles/Vol] 3.7 mmol/L 3.5-5.1 [facility] Work Phone: Protein [Mass/Vol] 6.7 g/dL 6.4-8.2 [facility] Work Phone: Sodium [Moles/Vol] 145 mmol/L 136-145 [facility] Work Phone: WBC (Bld) [#/Vol] 15.1 10*3/uL 4.4-11.0 [facility] Work Phone: Bilirubin Test strip Ql (U)o n 12-27-2021 Bilirubin Ql (U) Negative Negative [facility] Work Phone: Blood erythrocytes count (nu mber/volume)on 12-27-2021 RBC (Bld) [#/Vol] 3.93 10*6/uL 4.2-5.4 [facility] Work Phone: Blood hemoglobin measurement (mass/volume)on 12-27-2021 Hemoglobin (Bld) [Mass/Vol] 14.2 g/dL 12.0-15.0 [facility] Work Phone: Blood lymphocytes/100 leukoc yteson 12-27-2021 Lymphocytes/100 WBC (Bld) 6.6 % 19-41 [facility] Work Phone: Blood monocytes/100 leukocyt eson 12-27-2021 Monocytes/100 WBC (Bld) 8.2 % 0-10 [facility] Work Phone: Blood platelet mean volumeon 12-27-2021 Platelet mean volume (Bld) [Entitic vol] 8.4 fL 6.2-12.0 [facility] Work Phone: CBC with Auto Differentialon 12-27-2021 Hematocrit (Bld) [Volume fraction] 41.2 % 35 - 47 % [facility] Work Phone: [phone] Hemoglobin (Bld) [Mass/Vol] 13.5 g/dL 11.7 - 16 g/dL [facility] Work Phone: [phone] Interpretation and review of laboratory results Abnormal [facility] Work Phone: [phone] MCH (RBC) [Entitic mass] 35.8 pg High 26 - 34 pg [facility] Work Phone: [phone] MCHC (RBC) [Mass/Vol] 32.9 % 32 - 36 % [facility] Work Phone: [phone] MCV (RBC) [Entitic vol] 108.9 fL High 79 - 98 fL [facility] Work Phone: [phone] Platelet distribution width (Bld) [Ratio] 17.3 % High 11.5 - 14.5 % [facility] Work Phone: [phone] Platelet mean volume (Bld) [Entitic vol] 6.9 fL Low 7.4 - 12.4 fL [facility] Work Phone: [phone] Platelets (Bld) [#/Vol] 219 10*3/uL 140 - 440 10*3/uL [facility] Work Phone: [phone] RBC (Bld) [#/Vol] 3.78 10*6/uL Low 3.8 - 5.2 10*6/uL [facility] Work Phone: [phone] WBC (Bld) [#/Vol] 8.4 10*3/uL 3.6 - 10.7 10*3/uL [facility] Work Phone: [phone] [facility] Work Phone: [phone] COVID and Resp PCR Panelon 0 12-27-2021 [...] Panel. _ Expected Result: Not Detected [employer] Upper Respiratory Pathogens PCR Panel can detect the following targets: SARS-CoV-2, Adenovirus, Coronavirus 229E, Coronavirus HKU1, Coronavirus NL63, Coronavirus OC43, Human Metapneumovirus, Human Rhinovirus/Enteroviru s, Influenza A, Influenza B, Parainfluenza Virus 1, Parainfluenza Virus 2, Parainfluenza Virus 3, Parainfluenza Virus 4, Respiratory Syncytial Virus, Bordetella pertussis, Bordetella parapertussis, Chlamydia pneumoniae, Mycoplasma pneumoniae. Method: Real-time PCR. Normal [facility] [employer] [facility] Comment on above: Performed By: #### B MP3M, HEMDF, MG3, PHOS3, PCAL #### [facility] [address] [place] [address] [address] CHEST W CONTRASTon 2021 [facility] [employer] Work Phone: Radiology Study observation (narrative) [facility] Work Phone: CT CHEST W CONTRASTOrdered B y: Evgeny Arenas on 12-27-2021 [facility] Work Phone: CT Chest w/ Contraston 12-27 CT Chest w/ Contrast [facility]: [id number] Tom[facility] ACCESSION EXAM DATE/TIME PROCEDURE ORDERING PROVIDER [id number] 12/27/2021 14:[address] Thorax w/ Contrast [id number] MONIKA AYOUB CPT code 78044 Q9967 Reason For Exam (CT Thorax w/ [...] Transcribed Date and Time: 12/27/2021 3:37 Normal [facility] Determination of erythrocyte mean corpuscular volume (MCV)on 12-27-2021 MCV (RBC) [Entitic vol] 108.9 fL 81-99 [facility] Work Phone: Direct bilirubinon 2 Bilirubin.direct [Mass/Vol] 0.09 mg/dL 0.00-0.30 [facility] Work Phone: ED Provider Noteon 2 ED Provider Note [facility]Y [facility]PT EMERGENCY DEPARTMENT ENCOUNTER Pt Name: Jaimie Mcgovern Birthdate 1945 Date of evaluation: 12/27/2021 Provider: Mary Queen MD CHIEF COMPLAINT Chief Complaint Patient presents with Abdominal Pain Transfer from [place]. Pt c/o abdominal pain. HISTORY OF PRESENT ILLNESS (Location/Symptom, Timing/Onset, Context/Setting, Quality, Duration, Modifying Factors, Severity) Note limiting factors. I wore a kn95 mask for the entirety of this encounter. Jaimie Mcgovern is a 76 y.o. female who presents to the emergency department from transfer from [facility] . She had originally presented to [facility] via EMS due to pain in [...] Emergency Physician): Findings present in documentation from [place] ED. Interpretation per the Radiologist below, if available at the time of this note: CT CHEST W CONTRAST Result Date: 12/27/2021 Patient Name: JAIMIE MCGOVERN Computed Tomography ACCESSION EXAM DATE/TIME PROCEDURE ORDERING PROVIDER [id number] 12/27/2021 14:[address] Thorax w/ Contrast [id number] MONIKA AYOUB CPT code 41301 Q9967 Reason For Exam (CT Thorax w/ Contrast) CT esophogram for possible esophageal perforation Report EXAMINATION: CT of the chest with oral contrast (CT esophagram). EXAM DATE & TIME: 12/27/2021 2:58 PM EDT INDICATION: CT esophogram for possible esophageal perforation ADDITIONAL INFORMATION: 76-year-old female with suspected perforated esophagus presents for CT esophagram COMPARISON: None LIMITATIONS: (more content not included)... Normal [facility] ED Provider Note Emergency Department Encounter [...] ED course/MDM: I, Dr. Hicks, am the educational speech language clinician of record. I personally saw the [...] occasionally words are mis-transcribed.) Dex Hicks, DO [employer] Dex Hicks DO 12/27/21 1053 Normal [facility] Hematocrit Auto (Bld) [Volum e fraction]on 12-27-2021 Hematocrit (Bld) [Volume fraction] 42.8 % 37-47 [facility] Work Phone: Hemogram w/ Autodiffon 12-27 Erythrocyte distribution width (RBC) [Ratio] 17.3 % High 11.5-14.5 [facility] Comment on above: Performed By: #### B MP3M, HEMDF, MG3, PHOS3, PCAL #### [address] Hematocrit (Bld) [Volume fraction] 41.2 % Normal 35.0-47.0 [facility] Comment on above: Performed By: #### B MP3M, HEMDF, MG3, PHOS3, PCAL #### [address] Hemoglobin (Bld) [Mass/Vol] 13.5 g/dL Normal 11.7-16.0 [facility] Comment on above: Performed By: #### B MP3M, HEMDF, MG3, PHOS3, PCAL #### [address] MCH (RBC) [Entitic mass] 35.8 pg High 26.0-34.0 [facility] Comment on above: Performed By: #### B MP3M, HEMDF, MG3, PHOS3, PCAL #### [address] MCHC 32.9 % Normal 32.0-36.0 [facility] Comment on above: Performed By: #### B MP3M, HEMDF, MG3, PHOS3, PCAL #### [address] [place], [place] MCV (RBC) [Entitic vol] 108.9 fL High 79.0-98.0 [facility] Comment on above: Performed By: #### B MP3M, HEMDF, MG3, PHOS3, PCAL #### [address], [place] Platelet mean volume (Bld) [Entitic vol] 6.9 fL Low 7.4-12.4 [facility] Comment on above: Result Comment: MPV is a calculated measurement using platelet volume ratio. Performed By: #### B MP3M, HEMDF, MG3, PHOS3, PCAL #### [address] [place], [place] Platelets (Bld) [#/Vol] 219 10*3/uL Normal 140-440 [facility] Comment on above: Performed By: #### B MP3M, HEMDF, MG3, PHOS3, PCAL #### [address] [place], [place] RBC (Bld) [#/Vol] 3.78 10*6/uL Low 3.80-5.20 [facility] Comment on above: Performed By: #### B MP3M, HEMDF, MG3, PHOS3, PCAL #### [address] [place], [place] WBC (Bld) [#/Vol] 8.4 10*3/uL Normal 3.6-10.7 [facility] Comment on above: Performed By: #### B MP3M, HEMDF, MG3, PHOS3, PCAL #### [address] [place], [place] Hepatic Functionon 2 ALT [Catalytic activity/Vol] 14 U/L Normal 0-34 [facility] Comment on above: Result Comment: The ALT test is performed by an updated assay method. Please note that the reference intervals have been changed and are now sex specific. Performed By: #### B MP3M, HEMDF, MG3, PHOS3, PCAL #### [facility] [address], [place] ALP [Catalytic activity/Vol] 56 U/L Normal 38-126 [facility] Comment on above: Result Comment: Slig htly hemolysed, interpret with caution. Performed By: #### B MP3M, HEMDF, MG3, PHOS3, PCAL #### [address] [place], [place] AST [Catalytic activity/Vol] 36 U/L Normal 15-46 [facility] Comment on above: Result Comment: Slig htly hemolysed, interpret with caution. Performed By: #### B MP3M, HEMDF, MG3, PHOS3, PCAL #### [address], [place] Bilirubin [Mass/Vol] 0.8 mg/dL Normal 0.2-1.3 [facility] Comment on above: Performed By: #### B MP3M, HEMDF, MG3, PHOS3, PCAL #### [address], [place] Bilirubin.indirect [Mass/Vol] 0.0 mg/dL Normal 0.0-0.3 [facility] Comment on above: Performed By: #### B MP3M, HEMDF, MG3, PHOS3, PCAL #### [address] [place], [place] Protein [Mass/Vol] 6.4 g/dL Normal 6.3-8.2 [facility] Comment on above: Result Comment: Slig htly hemolysed, interpret with caution. Performed By: #### B MP3M, HEMDF, MG3, PHOS3, PCAL #### [address], [place] Albumin [Mass/Vol] 3.5 g/dL Normal 3.5-5.0 [facility] Comment on above: Result Comment: Slig htly hemolysed, interpret with caution. Performed By: #### B MP3M, HEMDF, MG3, PHOS3, PCAL #### [address] [address] Hepatic Function Panelon Albumin [Mass/Vol] 3.5 g/dL 3.5 - 5 g/dL [facility] Work Phone: [phone] ALP (Bld) [Catalytic activity/Vol] 56 U/L 38 - 126 U/L [facility] Work Phone: [phone] [Catalytic activity/Vol] 14 U/L 0 - 34 U/L [facility] Work Phone: [phone] [Catalytic activity/Vol] 36 U/L 15 - 46 U/L [facility] Work Phone: [phone] Bilirubin [Mass/Vol] 0.8 mg/dL 0.2 - 1 .3 mg/dL [facility] Work Phone: [phone] Bilirubin.indirect [Mass/Vol] 0.0 mg/dL 0 - 0.3 mg/dL [facility] Work Phone: [phone] Free PSA/Total PSA [Mass fraction] 6.4 g/dL 6.3 - 8.2 g/dL [facility] Work Phone: [phone] [facility] Work Phone: [phone] INR in Blood by Coagulation assayon 12-27-2021 INR Coag (Bld) [Relative time] 1.0 {INR} [facility] Work Phone: Ketones Test strip Ql (U)on 12-27-2021 Ketones Ql (U) Negative Negative [facility] Work Phone: Laboratory - Chemistry and C hemistry - challengeon 12-27-2021 ALP [Catalytic activity/Vol] 86 U/L 45-117 [facility] Work Phone: ALT [Catalytic activity/Vol] 13 U/L 13-56 [facility] Work Phone: CO2 [Moles/Vol] 19.0 mmol/L 21.0-32.0 [facility] Work Phone: Globulin (S) [Mass/Vol] 3.5 g/dL 2.2-4.2 [facility] Work Phone: Lipase [Catalytic activity/Vol] 128 U/L 73-393 [facility] Work Phone: Urea nitrogen/Creatinine [Mass ratio] 8.9 mg/mg 10-20 [facility] Work Phone: Laboratory - Coagulationon 0 12-27-2021 aPTT Coag (Bld) [Time] 21.0 s 24.1-36.2 [facility] [place] [place] Work Phone: PT Coag (PPP) [Time] 13.2 s 11.7-14.9 [facility] Work Phone: Laboratory - Hematology and Cell countson 12-27-2021 Erythrocyte distribution width (RBC) [Entitic vol] 61.1 fL 35.1-43.9 [facility] Work Phone: Erythrocyte distribution width (RBC) [Ratio] 15.2 % 11.6-14.6 [facility] Work Phone: [phone] Immature granulocytes/100 WBC (Bld) 0.300 % 0.0-0.9 [facility] Work Phone: Comment on above: IG% - Immature Granu locytes (promyelocytes, myelocytes and metamyelocytes) > 1% indicates that a LEFT SHIFT is Present. MCH (RBC) [Entitic mass] 36.1 pg 27.0-32.0 [facility] Work Phone: Nucleated RBC/100 WBC (Bld) [Ratio] 0 % 0-5 [facility] Work Phone: [phone] Lactic Acidon 12-27-2021 Lactate [Moles/Vol] 4.4 mmol/L Critically high 0.7-2.0 [facility] Comment on above: Performed By: #### B MP3M, HEMDF, MG3, PHOS3, PCAL #### [address] [address] Interpretation and review of laboratory results Abnormal [facility] Work Phone: Lactate [Moles/Vol] 4.4 mmol/L Critically high 0.7 - 2 mmol/L [facility] Work Phone: Lactate [Moles/Vol] 3.3 mmol/L Critically high 0.7-2.0 [facility] Comment on above: Result Comment: Crit ica Panic Lactate has fallen below the [facility] CCL/ED Panic Call Protocol. For [facility] ED patients ONLY the Lactate Levels greater than 2.0 and less than or equal to 4.0 mmol/L fall under the Panic Call Policy. Performed By: #### B MP3M, HEMDF, MG3, PHOS3, PCAL #### [address] [address] Interpretation and review of laboratory results Abnormal [facility] Work Phone: Lactate [Moles/Vol] 3.3 mmol/L Critically high 0.7 - 2 mmol/L [facility] Work Phone: [facility] Work Phone: MCHC Auto (RBC) [Mass/Vol]on 12-27-2021 MCHC (RBC) [Mass/Vol] 33.2 g/dL 32-36 [facility] Work Phone: Manual Diffon 12-27-2021 Abs Baso Cnt 0.0 10*3/uL Normal 0.0-0.2 [facility] Comment on above: Performed By: #### B MP3M, HEMDF, MG3, PHOS3, PCAL #### [address] [address] Abs Eosin Cnt 0.0 10*3/uL Normal 0.0-0.5 [facility] Comment on above: Performed By: #### B MP3M, HEMDF, MG3, PHOS3, PCAL #### [address] [address] Abs Lymph Cnt 0.3 10*3/uL Low 1.1-4.5 [facility] Comment on above: Performed By: #### B MP3M, HEMDF, MG3, PHOS3, PCAL #### [address] [place] [address] [address], [place] Abs Monocyte Cnt 0.1 10*3/uL Low 0.2-1.1 [facility] Comment on above: Performed By: #### B MP3M, HEMDF, MG3, PHOS3, PCAL #### [address] [place] [address] [address], [place] Abs Neutrophile Cnt 8.0 10*3/uL Normal 2.2-8.2 [facility] Comment on above: Performed By: #### B MP3M, HEMDF, MG3, PHOS3, PCAL #### [address] [address] [place], [place] Anisocytosis Slight Normal [facility] Comment on above: Performed By: #### B MP3M, HEMDF, MG3, PHOS3, PCAL #### [address] [place] [address] [address] [place], [place] Bands 35 % High 0-3 [facility] Comment on above: Performed By: #### B MP3M, HEMDF, MG3, PHOS3, PCAL #### [address] [address] [place] Basophils 0 % Normal 0-2 [facility] Comment on above: Performed By: #### B MP3M, HEMDF, MG3, PHOS3, PCAL #### [place] [address] [address] [place], [place] Cells counted 100 Normal [facility] Comment on above: Performed By: #### B MP3M, HEMDF, MG3, PHOS3, PCAL #### [address] [address] [place] Eosinophils 0 % Low 1-6 [facility] Comment on above: Performed By: #### B MP3M, HEMDF, MG3, PHOS3, PCAL #### [place] [address] [address] [place], [place] Lymphocytes 4 % Low 20-40 [facility] Comment on above: Performed By: #### B MP3M, HEMDF, MG3, PHOS3, PCAL #### [facility] [address] [place] [place], [place] Macrocytosis Slight Normal [facility] Comment on above: Performed By: #### B MP3M, HEMDF, MG3, PHOS3, PCAL #### [facility] [address] Monocytes 1 % Low 2-10 [facility] Comment on above: Performed By: #### B MP3M, HEMDF, MG3, PHOS3, PCAL #### [facility] [address] RBC Morphology ABNORMAL Normal [facility] Comment on above: Performed By: #### B MP3M, HEMDF, MG3, PHOS3, PCAL #### [facility] [address], [place] Seg Neutrophils 60 % Normal 40-80 [facility] Comment on above: Performed By: #### B MP3M, HEMDF, MG3, PHOS3, PCAL #### [facility] [address], [place] Manual Differentialon 2021 Absolute Baso # 0.0 10*3/uL 0 - 0.2 10*3/uL [facility] Work Phone: [phone] Absolute Eos # 0.0 10*3/uL 0 - 0.5 10*3/uL [facility] Work Phone: [phone] Absolute Lymph # 0.3 10*3/uL Low 1.1 - 4.5 10*3/uL [facility] Work Phone: [phone] Absolute Glasscock # 0.1 10*3/uL Low 0.2 - 1.1 10*3/uL [facility] Work Phone: [phone] Absolute Neut # 8.0 10*3/uL 2.2 - 8.2 10*3/uL [facility] Work Phone: [phone] Anisocytosis Slight [facility] Work Phone: Bands 35 % High 0 - 3 % [facility] Work Phone: Basophils/100 WBC (Bld) 0 % 0 - 2 % [facility] Work Phone: Eosinophils/100 WBC (Bld) 0 % Low 1 - 6 % [facility] Work Phone: Interpretation and review of laboratory results Abnormal [facility] Work Phone: Lymphocytes/100 WBC (Bld) 4 % Low 20 - 40 % [facility] Work Phone: Macrocytosis Slight [facility] Work Phone: Monocytes/100 WBC (Bld) 1 % Low 2 - 10 % [facility] Work Phone: RBC (Bld) [#/Vol] ABNORMAL [facility] Work Phone: Seg Neutrophils 60 % 40 - 80 % [facility] Work Phone: TOTAL CELLS COUNTED 100 [facility] Work Phone: [phone] [facility] Work Phone: Mucus LM Ql (Urine sed)on Mucus Ql (Urine sed) 0 SEEN /hpf [facility] Work Phone: Nitrite Test strip Ql (U)on 12-27-2021 Nitrite Ql (U) Negative Negative [facility] Work Phone: No Panel Informationon 12-27 [facility] Work Phone: Estimated Creatinine Clearance Calc 39.50 ml/min [facility] Work Phone: Estimated GFR (MDRD) Amer 69 mL/min >60 [facility] Work Phone: Comment on above: GFR Calc Estimated GFR (MDRD) Non-Af Amer 57 mL/min >60 [facility] Work Phone: Comment on above: Non- GFR Calc POCT COVID-19, Antigenon SARS-CoV-2 Nucleocapsid Antigen Negative Negative NA [facility] Platelets bldon 12-27-2021 Platelets (Bld) [#/Vol] 243 10*3/uL 150-450 [facility] Work Phone: Protein Test strip Ql (U)on 12-27-2021 Protein Ql (U) Negative Negative [facility] Work Phone: Prothrombin Timeon INR 1.0 Normal 0.9-1.1 [facility] Comment on above: Result Comment: Darion [...] B MP3M, HEMDF, MG3, PHOS3, PCAL #### [address] [place] [address] PT Coag (PPP) [Time] 10.4 s Normal 9.0-12.0 [facility] Comment on above: Result Comment: . Performed By: #### B MP3M, HEMDF, MG3, PHOS3, PCAL #### [address] [place] [address] Protime-INRon 12-27-2021 INR Coag (Bld) [Relative time] 1.0 {INR} [facility] Work Phone: PT Coag (PPP) [Time] 10.4 s 9 - 12 s [facility] Work Phone: [facility] Work Phone: Respiratory Panel, Molecular , with COVID-19 (Restricted: peds pts or suitable admitted adults)on 12-27-2021 Respiratory Panel Molecular, with COVID [facility] SARS-CoV-2 Antigenon 022 SARS-CoV-2 Antigen Negative Normal Negative [facility] Comment on above: Order Comment: ORDER [...] can be found at the following sites: https://www.[employer].gov/media/109438/download https://www.[employer].gov/media/954031/download Performed By: #### H EMD, BMP3M #### [address] [address] Serum or plasma acetone fiona urement (mass/volume)on 12-27-2021 Acetone [Mass/Vol] Negative NEG [facility] Work Phone: Serum or plasma albumin fiona urement (mass/volume)on 12-27-2021 Albumin [Mass/Vol] 3.2 g/dL 3.2-5.0 [facility] Work Phone: Serum or plasma calcium fiona urement (mass/volume)on 12-27-2021 Calcium [Mass/Vol] 8.1 mg/dL 8.5-10.1 [facility] Work Phone: Serum or plasma creatinine m easurement (mass/volume)on 12-27-2021 Creatinine [Mass/Vol] 1.01 mg/dL 0.55-1.02 [facility] Work Phone: Comment on above: The validity of the calculated GFR & GFRAA in patients over 70 years has not been determined. Clinical correlation is essential. Serum or plasma urea nitroge n measurement (mass/volume)on 12-27-2021 Urea nitrogen [Mass/Vol] 9 mg/dL 7-18 [facility] Work Phone: Squamous epithelial cells de tection in urine sediment by light microscopyon 12-27-2021 Epithelial cells.squamous LM Ql (Urine sed) 0 SEEN /hpf 5-10 [facility] Work Phone: Thin prep Papanicolaou smear with manual screeningon 12-27-2021 Thin prep Papanicolaou smear with manual screening 11 U/L 15-37 [facility] Work Phone: Thin prep Papanicolaou smear with manual screening 12 5-15 [facility] Work Phone: Urine blood detectionon 09-0 RBC Ql (U) Negative Negative [facility] Work Phone: RBC Ql (U) 0 SEEN /hpf 0-5 [facility] Work Phone: Urine clarityon 12-27-2021 Clarity (U) Clear Clear [facility] Work Phone: Urine color determinationon 12-27-2021 Color (U) Yellow Yellow [facility] Work Phone: Urine glucose detectionon Glucose Ql (U) Normal mg/dl Normal [facility] Work Phone: Urine leukocyte esterase det ection by dipstickon 12-27-2021 Leukocyte esterase Test strip Ql (U) Negative Negative [facility] Work Phone: Urine pHon 12-27-2021 pH (U) 6.0 [pH] 5.0 - 8.0 [facility] Work Phone: Urine sediment bacteria coun t by microscopy (number/high power field)on 12-27-2021 Bacteria LM.HPF (Urine sed) [#/Area] RARE /hpf None Seen [facility] Work Phone: Urine specific gravity measu rementon 12-27-2021 Specific gravity (U) [Rel density] 1.015 1.002-1.030 [facility] Work Phone: Urobilinogen Auto test strip Ql (U)on 12-27-2021 Urobilinogen Ql (U) Normal mg/dl Normal [facility] Work Phone: CNPNon 12-07-2021 CNPN Telephone ([facility]) JAIMIE AVENDANO ([id number]) 1945 F Date Time Provider Department 12/07/21 MICHAEL COX During your visit today, we recorded the following information about you: Graciela Chamorro LPN 12/07/2021 7:17 PM Signed FMLA in office for patient daughter (Jasmin Zaidi). Placed on Dr Cox's desk for review. Michael Cxo MD 12/08/2021 5:01 PM Signed Is this [...] Signed Forms completed and faxed back to [facility]. Jesika Rosales Allergies As of Date: 12/07/2021 Noted Allergy Reaction LATEX 11/19/2008 Z LADAN (AZITHROMYCIN) 01/11/2008 Comments: did not work ZIAC (BISOPROLOL-HYDROCHLO ROTHIAZ*01/11/2008 Comments: did not work Date Reviewed: 07/11/2021 Reviewed by: Graciela Chamorro LPN - Fully Assessed Reason for Visit: FMLA Paperwork [418] Prescriptions as of 12/09/2021 - levothyroxine (SYNTHROID) [...] Encounter Status:Closed by JESIKA ROSALES on [facility]09/21 [facility] JAIM[facility] AVENDANO ([id number]) 1945 F Date Time Provider Department 11/20/21 MICHAEL COX During your visit today, we recorded the following information about you: Cailin Castañeda, RN 11/20/2021 8:36 AM Signed Pts daughter called in and reports her mother has been upset all last week. She reports mother is saying, "I can't take care of myself and I want to go to a Retirement.". Daughter said she is not sure what [...] see if placement could be done at [place]. Elizabeth Guido Ma Allergies As of Date: 11/20/2021 Noted Allergy Reaction LATEX 11/19/2008 Z LADAN (AZITHROMYCIN) 01/11/2008 Comments: did not work ZIAC (BISOPROLOL-HYDROCHLO ROTHIAZ*01/11/2008 Comments: did not work Date Reviewed: 07/11/2021 Reviewed by: Graciela Chamorro LPN - Fully Assessed Reason for Visit: Patient Update [1234] Patient Question [6397] Help with Retirement [Other] Prescriptions as of 04/16/2022 - levothyroxine [...] Encounter Status:Closed by CAILIN CASTAÑEDA on 04/16/22 [facility] JAIMIE AVENDANO ([id number]) 1945 F Date Time Provider Department 07/16/21 MICHAEL COX [facility] During your visit today, we recorded the following information about you: Bernarda Eisenberg LPN 07/16/2021 10:03 AM Signed Darlene with [facility] out of [facility] called to see if you received a fax they sent yesterday at pt's request to have cancer screening done at her home per Darlene. 1. Did you receive fax form? IF not phone [phone]. 2. Require form to be fax back with Doctor's signature. Bernarda Chamorro LPN 07/16/2021 2:24 PM Signed Patient declines at this time. I spoke to patient to family about this testing. If decides that wants to complete testing will do this through [facility]. Faxed this paperwork back. Allergies As [...] by GRACIELA CHAMORRO LPN on 07/16/21 Normal [facility] Absolute lymphocyte counton 07-11-2021 Lymphocytes Auto (Unsp spec) [#/Vol] 0.73 10*3/uL 0.83-4.51 [facility] Work Phone: Basophil percentageon 2021 Basophils/100 WBC (Bld) 0.6 % 0-1 [facility] Work Phone: Bilirubin [Mass/Vol] 0.30 mg/dL 0.20-1.00 [facility] Work Phone: Comment on above: For patients on eltr ombopag therapy, use of Dimension [place] TBIL is not recommended. Chloride [Moles/Vol] 109 mmol/L 98-107 [facility] Work Phone: Eosinophils/100 WBC (Bld) 2.5 % 0-5 [facility] Work Phone: Glucose [Mass/Vol] 103 mg/dL 74-106 [facility] Work Phone: Comment on above: Fasting Glucose resu lt from 100 to 125 mg/dL suggests IMPAIRED HOMEOSTASIS per A.D.A. criteria. Neutrophils (Bld) [#/Vol] 3.4 10*3/uL 2.0-7.7 [facility] Work Phone: Neutrophils/100 WBC (Bld) 70.7 % 47-70 [facility] Work Phone: Potassium [Moles/Vol] 4.1 mmol/L 3.5-5.1 [facility] Work Phone: Protein [Mass/Vol] 6.9 g/dL 6.4-8.2 [facility] Work Phone: Sodium [Moles/Vol] 138 mmol/L 136-145 [facility] Work Phone: WBC (Bld) [#/Vol] 4.8 10*3/uL 4.4-11.0 [facility] Work Phone: Blood erythrocytes count (nu mber/volume)on 07-11-2021 RBC (Bld) [#/Vol] 4.14 10*6/uL 4.2-5.4 [facility] Work Phone: Blood hemoglobin measurement (mass/volume)on 07-11-2021 Hemoglobin (Bld) [Mass/Vol] 14.7 g/dL 12.0-15.0 [facility] Work Phone: Blood lymphocytes/100 leukoc yteson 07-11-2021 Lymphocytes/100 WBC (Bld) 15.3 % 19-41 [facility] Work Phone: Blood monocytes/100 leukocyt eson 07-11-2021 Monocytes/100 WBC (Bld) 10.5 % 0-10 [facility] Work Phone: Blood platelet mean volumeon 07-11-2021 Platelet mean volume (Bld) [Entitic vol] 9.0 fL 6.2-12.0 [facility] Work Phone: CNOVon 07-11-2021 CNOV Office Visit (FAMPWS ) JAIMIE AVENDANO ([id number]) 1945 F Date Time Provider Department 07/11/21 [...] of evaluating that over the weekend. To [facility] ER. ER passport completed for [...] Encounter Status:Closed by MICHAEL COX on 07/11/21 [facility] Determination of erythrocyte mean corpuscular volume (MCV)on 07-11-2021 MCV (RBC) [Entitic vol] 101.9 fL 81-99 [facility] Work Phone: Hematocrit Auto (Bld) [Volum e fraction]on 07-11-2021 Hematocrit (Bld) [Volume fraction] 42.2 % 37-47 [facility] Work Phone: [phone] Laboratory - Chemistry and C hemistry - challengeon 07-11-2021 ALP [Catalytic activity/Vol] 104 U/L 45-117 [facility] Work Phone: [phone] ALT [Catalytic activity/Vol] 18 U/L 13-56 [facility] Work Phone: [phone] CO2 [Moles/Vol] 27.0 mmol/L 21.0-32.0 [facility] Work Phone: [phone] Free T4 [Mass/Vol] 0.95 ng/dL 0.76-1.46 [facility] [place] Work Phone: [phone] Globulin (S) [Mass/Vol] 3.3 g/dL 2.2-4.2 [facility] Work Phone: [phone] Urea nitrogen/Creatinine [Mass ratio] 11.9 mg/mg 10-20 [facility] Work Phone: [phone] Laboratory - Hematology and Cell countson 07-11-2021 Erythrocyte distribution width (RBC) [Entitic vol] 51.2 fL 35.1-43.9 [facility] Work Phone: [phone] Erythrocyte distribution width (RBC) [Ratio] 13.6 % 11.6-14.6 [facility] Work Phone: [phone] Immature granulocytes/100 WBC (Bld) 0.400 % 0.0-0.9 [facility] Work Phone: [phone] Comment on above: IG% - Immature Granu locytes (promyelocytes, myelocytes and metamyelocytes) > 1% indicates that a LEFT SHIFT is Present. MCH (RBC) [Entitic mass] 35.5 pg 27.0-32.0 [facility] Work Phone: [phone] Nucleated RBC/100 WBC (Bld) [Ratio] 0 % 0-5 [facility] Work Phone: [phone] MCHC Auto (RBC) [Mass/Vol]on 07-11-2021 MCHC (RBC) [Mass/Vol] 34.8 g/dL 32-36 [facility] Work Phone: No Panel Informationon 07-11 Estimated Creatinine Clearance Calc 39.94 ml/min [facility] Work Phone: Estimated GFR (MDRD) Amer 96 mL/min >60 [facility] Work Phone: Comment on above: GFR Calc Estimated GFR (MDRD) Non-Af Amer 79 mL/min >60 [facility] Work Phone: Comment on above: Non- GFR Calc Free Triiodothyronine (T3) pg/dL 2.4 pg/mL 2.18-3.98 [facility] Work Phone: Thyroid Stimulating Hormone (TSH) 3.54 uIU/mL 0.358-3.74 [facility] Work Phone: Platelets bldon 07-11-2021 Platelets (Bld) [#/Vol] 209 10*3/uL 150-450 [facility] Work Phone: Serum or plasma albumin fiona urement (mass/volume)on 07-11-2021 Albumin [Mass/Vol] 3.6 g/dL 3.2-5.0 [facility] Work Phone: Serum or plasma albumin/glob ulin mass ratioon 07-11-2021 Albumin/Globulin [Mass ratio] 1.1 {ratio} 0.9-2.4 [facility] Work Phone: [phone] Serum or plasma calcium fiona urement (mass/volume)on 07-11-2021 Calcium [Mass/Vol] 8.6 mg/dL 8.5-10.1 [facility] Work Phone: [phone] Serum or plasma creatinine m easurement (mass/volume)on 07-11-2021 Creatinine [Mass/Vol] 0.76 mg/dL 0.55-1.02 [facility] Work Phone: Comment on above: The validity of the calculated GFR & GFRAA in patients over 70 years has not been determined. Clinical correlation is essential. Serum or plasma urea nitroge n measurement (mass/volume)on 07-11-2021 Urea nitrogen [Mass/Vol] 9 mg/dL 7-18 [facility] Work Phone: Thin prep Papanicolaou smear with manual screeningon 07-11-2021 Thin prep Papanicolaou smear with manual screening 13 U/L 15-37 [facility] Work Phone: Thin prep Papanicolaou smear with manual screening 2 5-15 [facility] Work Phone: COVID-19 virus antigen assay SARS-CoV-2 (COVID-19) Ag IA.rapid Ql (Resp) [facility] Work Phone: Vital Signs Date Time Vital Sign Value Performing Clinician Ana Laura tuttle 02-06-2025 09:29-0400 Body height 160.[address] Viviana Mcgee MD Work Phone: [facility] 02-06-2025 09:29-0400 Body mass index (BMI) [Ratio] 25 kg/m2 Dr. Viviana Mcgee MD Work Phone: [facility] 02-06-2025 09:29-0400 Body weight 63.[address] Viviana Mcgee MD Work Phone: [facility] 01-22-2025 12:36-0400 Body height 160.[address] Viviana Mcgee MD Work Phone: [facility] 11-06-2024 14:57-0400 Body height 160.[address] Viviana Mcgee MD Work Phone: [facility] 06-27-2024 08:37-0500 Body temperature 98.2 [degF] Dr. Viviana Mcgee MD Work Phone: [facility] 06-27-2024 08:37-0500 Body weight 67.[address] Viviana Mcgee MD Work Phone: [facility] 06-27-2024 08:37-0500 Diastolic blood pressure 90 mm[Hg] Dr. Viviana Mcgee MD Work Phone: [facility] 06-27-2024 08:37-0500 Heart rate 80 /min Dr. Viviana Mcgee MD Work Phone: [facility] 06-27-2024 08:37-0500 Respiratory rate 14 /min Dr. Viviana Mgcee MD Work Phone: [facility] 06-27-2024 08:37-0500 SaO2% (BldA) [Mass fraction] 98 % Dr. Viviana Mcgee MD Work Phone: [facility] 06-27-2024 08:37-0500 Systolic blood pressure 167 mm[Hg] Dr. Viviana Mcgee MD Work Phone: [facility] 04-27-2023 15:25-0500 Body temperature 98 [degF] Dr. Michael Cox Work Phone: 5(399)731-810401 [place] [address] 04-27-2023 15:25-0500 Body weight 68.[address] Michael Cox Work Phone: 7(047)804-353101 [place] [address] 04-27-2023 15:25-0500 Diastolic blood pressure 77 mm[Hg] Dr. Michael Cox Work Phone: 5(740)775-419701 [place] [address] 04-27-2023 15:25-0500 Heart rate 63 /min Dr. Michael Cox Work Phone: 0(079)663-106201 [place] [address] 04-27-2023 15:25-0500 Respiratory rate 16 /min Dr. Michael Cox Work Phone: 3(645)229-460201 [place] [address] 04-27-2023 15:25-0500 SaO2% (BldA) [Mass fraction] 98 % Dr. Michael Cox Work Phone: [facility] 04-27-2023 15:25-0500 Systolic blood pressure 167 mm[Hg] Dr. Michael Cox Work Phone: [facility] 02-24-2023 11:52-0400 Body height 160.[address] Michael Cox Work Phone: 2(659)068-196494 [place] [address] 01-30-2023 18:46-0400 Diastolic blood pressure 83 mm[Hg] Dr. Michael Cox Work Phone: 2(679)691-434694 [place] [address] 01-30-2023 18:46-0400 Heart rate 63 /min Dr. Michael Cox Work Phone: 1(295)561-855994 [place] [address] 01-30-2023 18:46-0400 Respiratory rate 14 /min Dr. Michael Cox Work Phone: 6(223)302-035994 [place] [address] 01-30-2023 18:46-0400 SaO2% (BldA) [Mass fraction] 97 % Dr. Michael Cox Work Phone: 7(332)262-441194 [place] [address] 01-30-2023 18:46-0400 Systolic blood pressure 162 mm[Hg] Dr. Michael Cox Work Phone: 5(509)389-638494 [place] [address] 01-30-2023 16:40-0400 Body height 160.[address] Michael Cox Work Phone: 1(001)625-064394 [place] [address] 01-30-2023 16:40-0400 Body mass index (BMI) [Ratio] 26.7 kg/m2 Dr. Michael Cox Work Phone: 2(652)702-533894 [place] [address] 01-30-2023 16:40-0400 Body temperature 97.7 [degF] Dr. Michael Cox Work Phone: 1(730)737-452094 [place] [address] 01-30-2023 16:40-0400 Body weight 68.[address] Michael Cox Work Phone: 8(871)652-990494 [place] [address] 08-12-2022 15:01-0400 Body mass index (BMI) [Ratio] 25.8 kg/m2 Dr. Michael Cox Work Phone: 6(847)384-724394 [place] [address] 08-12-2022 15:01-0400 Body temperature 98.2 [degF] Dr. Michael Cox Work Phone: 2(498)520-831994 [place] [address] 08-12-2022 15:01-0400 Body weight 66.[address] Michael Cox Work Phone: [facility] 08-12-2022 15:01-0400 Diastolic blood pressure 70 mm[Hg] Dr. Michael Cox Work Phone: [facility] 08-12-2022 15:01-0400 Heart rate 65 /min Dr. Michael Cox Work Phone: [facility] 08-12-2022 15:01-0400 Respiratory rate 16 /min Dr. Michael Cox Work Phone: [facility] 08-12-2022 15:01-0400 SaO2% (BldA) [Mass fraction] 96 % Dr. Michael Cox Work Phone: [facility] 08-12-2022 15:01-0400 Systolic blood pressure 128 mm[Hg] Dr. Michael Cox Work Phone: [facility] 05-20-2022 09:02-0500 Body height 160.[address] Michael Cox Work Phone: [facility] 01-07-2022 04:16-0400 Body temperature 97 [degF] Dex BeltranhopTo DO Work Phone: [facility] 01-07-2022 04:16-0400 Diastolic blood pressure 70 mm[Hg] Dex [employer]borne [employer] DO Work Phone: [facility] 01-07-2022 04:16-0400 Heart rate 69 /min Dex JahopTo DO Work Phone: [facility] 01-07-2022 04:16-0400 Respiratory rate 17 /min Dex JahopTo DO Work Phone: [facility] 01-07-2022 04:16-0400 SaO2% (BldA) [Mass fraction] 92 % Dex JahopTo DO Work Phone: [facility] 01-07-2022 04:16-0400 Systolic blood pressure 142 mm[Hg] Dex JahopTo DO Work Phone: [facility] 01-04-2022 09:05-0400 Body height 152.4 cm [facility] Work Phone: [facility] 01-02-2022 04:00-0400 Body mass index (BMI) [Ratio] 21.74 kg/m2 Dex Hicks Work Phone: [facility] 01-02-2022 04:00-0400 Body weight 50.5 kg [facility] Work Phone: [facility] 12-27-2021 09:04-0400 Body temperature 98.4 [degF] [facility] Work Phone: 12-27-2021 09:04-0400 Diastolic blood pressure 73 mm[Hg] [facility] Work Phone: 12-27-2021 09:04-0400 Heart rate 96 /min [facility] Work Phone: 12-27-2021 09:04-0400 Inhaled oxygen flow rate 3 L/min [facility] Work Phone: 12-27-2021 09:04-0400 Respiratory rate 18 /min [facility] Work Phone: 12-27-2021 09:04-0400 SaO2% (BldA) [Mass fraction] 96 % [facility] Work Phone: 12-27-2021 09:04-0400 Systolic blood pressure 173 mm[Hg] [facility] Work Phone: 12-27-2021 00:47-0400 Body height 160.02 cm [facility] Work Phone: 12-27-2021 00:47-0400 Body mass index (BMI) [Ratio] 20 kg/m2 [facility] Work Phone: 12-27-2021 00:47-0400 Body weight 51.2 kg [facility] Work Phone: 08-07-2021 13:04-0400 Body height 160.[address] Michael Cox Work Phone: [facility] Work Phone: 08-07-2021 13:04-0400 Body temperature 97.6 [degF] Dr. Michael Cox Work Phone: [facility] Work Phone: 08-07-2021 13:04-0400 Diastolic blood pressure 88 mm[Hg] Dr. Michael Cox Work Phone: [facility] Work Phone: 08-07-2021 13:04-0400 Heart rate 91 /min Dr. Michael Cox Work Phone: [facility] Work Phone: 08-07-2021 13:04-0400 Respiratory rate 18 /min Dr. Michael Cox Work Phone: [facility] Work Phone: 08-07-2021 13:04-0400 SaO2% (BldA) [Mass fraction] 97 % Dr. Michael Cox Work Phone: [facility] Work Phone: 08-07-2021 13:04-0400 Systolic blood pressure 158 mm[Hg] Dr. Michael Cox Work Phone: [facility] Work Phone: 07-11-2021 14:02-0400 Diastolic blood pressure 93 mm[Hg] Dr. Michael Cox Work Phone: [facility] Work Phone: 07-11-2021 14:02-0400 Heart rate 76 /min Dr. Michael Cox Work Phone: [facility] Work Phone: 07-11-2021 14:02-0400 Respiratory rate 15 /min Dr. Michael Cox Work Phone: [facility] Work Phone: 07-11-2021 14:02-0400 SaO2% (BldA) [Mass fraction] 98 % Dr. Michael Cox Work Phone: [facility] Work Phone: 07-11-2021 14:02-0400 Systolic blood pressure 179 mm[Hg] Dr. Michael Cox Work Phone: [facility] Work Phone: 07-11-2021 11:21-0400 Body mass index (BMI) [Ratio] 20 kg/m2 Dr. Michael Cox Work Phone: [facility] Work Phone: 07-11-2021 11:21-0400 Body temperature 98.5 [degF] Dr. Michael Cox Work Phone: [facility] Work Phone: 07-11-2021 11:21-0400 Body weight 51.[address] Michael Cox Work Phone: [facility] Work Phone: Encounters Encounter Date Encounter Type Care Provider Facility Start: 02-06-2025 End: 02-06-2025 Patient encounter procedure Terri MCLAIN [facility] Work Phone: Start: 02-06-2025 End: 02-06-2025 ambulatory Terri Salas Facility:[facility] Start: 01-07-2025 End: 01-07-[address] Viviana Mcgee MD Work Phone: -[facility] Start: 01-07-2025 End: 01-07-2025 Patient encounter procedure Matilda MCLAIN -[facility] Work Phone: Start: 01-01-2025 End: 01-01-[address] Viviana Mcgee MD Work Phone: -[facility] Start: 01-01-2025 End: 01-01-2025 Patient encounter procedure Matilda MCLAIN -[facility] Work Phone: Start: 12-28-2024 ambulatory Viviana Shankari ty:[facility] Start: 12-28-2024 Registered Referred Viviana Mcgee MD -[facility] Start: 11-23-2024 ambulatory Viviana Mcgee [facility] ty:[facility] Start: 11-23-2024 [facility] Start: 10-02-2024 End: 10-02-[address] Viviana Mcgee MD Work Phone: [facility] Start: 10-02-2024 End: 10-02-[address] Viviana Mcgee MD -[facility] Work Phone: Start: 08-24-2024 End: 08-24-[address] Viviana Mcgee MD Work Phone: [facility] Work Phone: Start: 08-24-2024 End: 08-24-2024 [facility] Start: 08-24-2024 [facility] Start: 08-24-2024 End: 08-24-2024 ambulatory Viviana Mcgee Facility:[facility] Start: 07-31-2024 End: 07-31-[address] Viviana Mcgee MD Work Phone: [facility] Work Phone: Start: 07-31-2024 End: 07-31-2024 Patient encounter procedure Matilda MCLAIN -[facility] Work Phone: Start: 07-31-2024 Non-patient / Non-visit Dr. Zachary gupta MD -[facility] Start: 07-31-2024 End: 07-31-[address] Viviana Mcgee MD Work Phone: [facility] Work Phone: Start: 07-31-2024 End: 07-31-2024 Patient encounter procedure Lacy SANCHEZ -[facility] Work Phone: Start: 07-31-2024 End: 07-31-2024 ambulatory Efewongbe Oleghe Facility:[facility] Start: 07-03-2024 End: 07-03-2024 ambulatory Efewongbe Oleghe Facility:[facility] Start: 07-03-2024 End: 07-03-[address] Viviana Mcgee MD -[facility] Work Phone: Start: 06-29-2024 End: 06-29-[address] Viviana Mcgee MD Work Phone: [facility] Work Phone: Start: 06-29-2024 End: 06-29-2024 Departed Referred Matilda MCLAIN -[facility] Start: 06-29-2024 End: 06-29-2024 ambulatory Matilda ABBOTT Facility:[facility] Start: 06-27-2024 End: 06-27-2024 Patient encounter procedure Lacy SANCHEZ -[facility] Work Phone: Start: 06-27-2024 End: 06-27-2024 ambulatory Efewongbe Oleghe Facility:[facility] Start: 06-21-2024 End: 06-21-2024 ambulatory Efewongbe Oleghe Facility:[facility] Start: 06-21-2024 End: 06-21-2024 Patient encounter procedure Cr SANCHEZ -[facility] Work Phone: Start: 06-07-2024 ambulatory Efewongbe Oleghe Facili ty:[facility] Start: 06-07-2024 Registered Referred Viviana Mcgee MD [facility] Start: 06-01-2024 ambulatory Efewongbe Oleghe Facili ty:[facility] Start: 06-01-2024 [facility] Start: 05-16-2024 End: 05-16-2024 ambulatory Efewongbe Oleghe Facility:[facility] Start: 05-16-2024 End: 05-16-2024 Patient encounter procedure Matilda MCLAIN -[facility] Work Phone: Start: 05-08-2024 End: 05-08-2024 ambulatory Viviana Canoe Facility:[facility] Start: 05-08-2024 End: 05-08-[address] Viviana Mcgee MD [facility] Work Phone: Start: 04-27-2024 ambulatory Viviana Mcgee Facili ty:[facility] Start: 04-27-2024 Registered Referred Viviana Mcgee MD [facility] Start: 04-03-2024 End: 04-03-2024 ambulatory Eflawsonjose abe Walterluize Facility:[facility] Start: 04-03-2024 End: 04-03-2024 Patient encounter procedure Matilda MCLAIN -[facility] Work Phone: Start: 03-30-2024 End: 03-30-2024 Departed Referred Viviana Mcgee MD [facility] Start: 03-30-2024 End: 03-30-2024 ambulatory Efjohnbe Jeromee OLS Facility:[facility] Start: 03-21-2024 End: 03-21-2024 ambulatory Efewongbe Jeromee OLS Facility:[facility] Start: 02-28-2024 End: 02-28-2024 ambulatory Efewjose abe Walterluize Facility:[facility] Start: 02-24-2024 End: 02-24-2024 ambulatory Efewongbe Jeromee OLS Facility:[facility] Start: 08-26-[address] Flavio Mcgee Work Phone: [facility] Start: 08-16-2023 End: 08-16-[address] Viviana Mcgee Work Phone: [facility] Work Phone: Start: 08-16-2023 End: 08-16-[address] Viviana Mcgee Work Phone: [facility] Start: 08-04-2023 End: 08-04-[address] Viviana Mcgee Work Phone: [facility] Work Phone: Start: 07-29-2023 End: 07-29-[address] Viviana Mcgee Work Phone: [facility] Work Phone: Start: 07-29-2023 End: 07-29-[address] Viviana Mcgee Work Phone: [facility] Start: 07-29-[address] Flavio Mcgee Work Phone: [facility] Start: 07-11-2023 End: 07-11-[address] Viviana Mcgee Work Phone: [facility] Work Phone: Start: 06-29-2023 End: 06-29-[address] Viviana Mcgee Work Phone: [facility] Work Phone: Start: 06-28-2023 End: 06-28-[address] Viviana Mcgee Work Phone: [facility] Work Phone: Start: 06-24-2023 End: 06-24-[address] Viviana Mcgee Work Phone: [facility] Work Phone: Start: 06-24-2023 End: 06-24-[address] Viviana Mcgee Work Phone: [facility] Start: 06-20-2023 End: 06-20-[address] Viviana Mcgee Work Phone: [facility] Work Phone: Start: 05-27-2023 End: 05-27-[address] Viviana Mcgee Work Phone: [facility] Work Phone: Start: 05-27-2023 End: 05-27-[address] Viviana Mcgee Work Phone: [facility] Start: 05-25-2023 End: 05-25-[address] Viviana Mcgee Work Phone: [facility] Work Phone: Start: 05-10-2023 End: 05-10-[address] Viviana Mcgee Work Phone: [facility] Work Phone: Start: 04-29-2023 End: 04-29-[address] Michael Cox Work Phone: [facility] Work Phone: Start: 04-29-2023 End: 04-29-[address] Michael Cox Work Phone: [facility] Start: 04-27-2023 End: 04-27-[address] Michael Cox Work Phone: [facility] Work Phone: Start: 04-07-2023 End: 04-07-[address] Michael Cox Work Phone: [facility] Work Phone: Start: 03-28-2023 End: 03-28-[address] Michael Cox Work Phone: [facility] Work Phone: Start: 03-28-2023 End: 03-28-[address] Michael Cox Work Phone: [facility] Work Phone: Start: 03-25-2023 End: 03-25-[address] Michael Cox Work Phone: [facility] Work Phone: Start: 03-25-2023 End: 03-25-[address] Michael Cox Work Phone: [facility] Start: 03-25-[address] Aidan Cox Work Phone: [facility] Start: 03-08-2023 End: 03-08-[address] Michael Cox Work Phone: [facility] Work Phone: Start: 02-25-2023 End: 02-25-[address] Michael Cox Work Phone: [facility] Work Phone: Start: 02-25-2023 End: 02-25-[address] Michael Cox Work Phone: [facility] Start: 02-08-2023 End: 02-08-[address] Michael Cox Work Phone: [facility] Work Phone: Start: 02-02-2023 End: 02-02-[address] Michael Cox Work Phone: [facility] Work Phone: Start: 01-30-2023 End: 01-30-2023 Emergency department patient visit Dr. Michael Cox Work Phone: [facility] Work Phone: Start: 01-28-2023 End: 01-28-[address] Michael Cox Work Phone: [facility] Work Phone: Start: 01-28-2023 End: 01-28-[address] Michael Cox Work Phone: [facility] Start: 01-26-2023 End: 01-26-[address] Michael Cox Work Phone: [facility] Work Phone: Start: 01-11-2023 End: 01-11-[address] Michael Cox Work Phone: [facility] Work Phone: Start: 01-11-2023 Non-patient / Non-visit Dr. Day Cox Work Phone: [facility] Start: 01-07-2023 Non-patient / Non-visit Dr. Day Cox Work Phone: [facility] Start: 01-07-2023 End: 01-07-[address] [facility] Work [facility]: Start: 12-24-2022 End: 12-24-[address] Michael Cox Work Phone: [facility] Work Phone: Start: 12-24-2022 End: 12-24-[address] Michael Cox Work Phone: [facility] Start: 12-23-2022 End: 12-23-[address] Michael Cox Work Phone: [facility] Work Phone: Start: 11-29-2022 End: 11-29-[address] Michael Cox Work Phone: [facility] Work Phone: Start: 11-26-2022 End: 11-26-[address] Michael Cox Work Phone: [facility] Work Phone: Start: 11-26-2022 End: 11-26-[address] Michael Cox Work Phone: [facility] Start: 11-26-[address] Aidan Cox Work Phone: [facility] Start: 11-09-2022 End: 11-09-[address] Michael Cox Work Phone: [facility] Work Phone: Start: 11-09-2022 End: 11-09-[address] Michael Cox Work Phone: [facility] Start: 11-09-[address] Aidan Cox Work Phone: [facility] Start: 11-08-2022 End: 11-08-[address] Michael Cox Work Phone: [facility] Work Phone: Start: 11-02-2022 End: 11-02-[address] Michael Cox Work Phone: [facility] Work Phone: Start: 10-29-2022 End: 10-29-[address] Michael Cox Work Phone: [facility] Work Phone: Start: 10-29-2022 End: 10-29-[address] Michael Cox Work Phone: [facility] Start: 10-29-[address] Aidan Cox Work Phone: [facility] Start: 10-20-2022 End: 10-20-[address] Michael Cox Work Phone: [facility] Work Phone: Start: 09-24-2022 End: 09-24-[address] Michael Cox Work Phone: [facility] Work Phone: Start: 09-24-2022 End: 09-24-[address] Michael Cox Work Phone: [facility] Start: 09-14-2022 End: 09-14-[address] Michael Cox Work Phone: [facility] Work Phone: Start: 08-27-2022 End: 08-27-[address] Michael Cox Work Phone: [facility] Start: 08-20-2022 ambulatory Kinsey Gordon [facility] Comment on above: Population Health Na vigation Outreach (ACO NO PCP) Start: 06-25-2022 End: 06-25-[address] Michael Cox Work Phone: [facility] Work Phone: Start: 06-25-2022 End: 06-25-[address] Michael Cox Work Phone: [facility] Start: 06-25-[address] Aidan Cox Work Phone: [phone] [place] [address] Start: 06-08-2022 End: 06-08-[address] Michael Cox Work Phone: [phone] [place] [address] Start: 05-28-2022 End: 05-28-[address] Michael Cox Work Phone: [facility] Work Phone: Start: 05-28-2022 End: 05-28-[address] Michael Cox Work Phone: [phone] [place] [address] Start: 05-11-2022 End: 05-11-[address] Michael Cox Work Phone: [phone] [place] [address] Start: 05-10-2022 End: 05-10-[address] Michael Cox Work Phone: [phone] [place] [address] Start: 04-30-2022 End: 04-30-[address] Michael Cox Work Phone: [facility] Work Phone: Start: 04-30-2022 End: 04-30-[address] Michael Cox Work Phone: [facility] Start: 04-30-[address] Aidan Cox Work Phone: [facility] Start: 03-29-2022 End: 03-29-[address] Michael Cox Work Phone: [facility] Work Phone: Start: 03-29-2022 End: 03-29-[address] Michael Cox Work Phone: [facility] Start: 03-29-[address] Aidan Cox Work Phone: [facility] Start: 03-26-2022 End: 03-26-[address] Michael Cox Work Phone: [facility] Work Phone: Start: 03-26-2022 End: 03-26-[address] Michael Cox Work Phone: [facility] Start: 03-26-[address] Aidan Cox Work Phone: [facility] Start: 03-10-2022 End: 03-10-[address] Michael Cox Work Phone: [facility] Start: 03-02-2022 End: 03-02-[address] Michael Cox Work Phone: [facility] Start: 02-26-2022 End: 02-26-[address] Michael Cox Work Phone: [facility] Work Phone: Start: 02-26-2022 End: 02-26-[address] Michael Cox Work Phone: [facility] Start: 02-26-[address] Aidan Cox Work Phone: [facility] Start: 01-29-2022 End: 01-29-[address] Michael Cox Work Phone: [facility] Work Phone: Start: 01-29-2022 End: 01-29-[address] Michael Cox Work Phone: [facility] Start: 01-11-[address] Aidan Cox Work Phone: [facility] Start: 12-27-2021 End: 01-07-2022 Evaluation and management of inpatient [place] [facility] Start: 12-27-2021 End: 01-07-2022 Evaluation and management of inpatient Dex Hicks DO Work Phone: [facility] Start: 12-27-2021 End: 12-27-2021 Emergency department patient visit [facility] Start: 11-20-2021 Telephone encounter Michael Cox MD Work Phone: [facility] [place] Comment on above: Patient Update; Yola ent Question; Help with Retirement Start: 10-21-2021 ambulatory Michael Cox MD Work Phone: [facility] [place] Start: 08-07-2021 End: 08-07-[address] Michael Cox Work Phone: [facility] Start: 08-05-2021 Non-patient / Non-visit Dr. Day Cox Work Phone: [facility] Start: 08-05-2021 End: 08-05-[address] Michael Cox Work Phone: [facility] Start: 07-11-2021 End: 07-11-2021 ambulatory MICHAEL CXO Facility:[facility] Start: 07-11-2021 End: 07-11-2021 Emergency department patient visit Dr. Michael Cox Work Phone: [facility] Procedures Date Procedure Procedure Detail Performing Clinician Start: 02-06-2025 Plain x-ray of pelvi s and lower extremity Dr. Viviana Mcgee MD Work Phone: Start: 02-06-2025 Radiologic exam knee complete 4/more views Dr. Viviana Mcgee MD Work Phone: Start: 12-28-2024 Vitamin D, 25-hydrox y measurement Dr. Viviana Mcgee MD Work Phone: Comment on above: Vitamin D StatusDefi ciency: <20 ng/mL (50nmol/L)Insufficiency: 20-30 ng/mL (50-75 nmol/L)Sufficiency: 30-100 ng/mL (75-250 nmol/L)Toxicity: >100 ng/mL (>250 nmol/L) Start: 03-28-2023 CT of abdominal aort a [...] 01-05-2022 Radiologic exam ches t single view Aneil A Stefania Zelaya MD Work Phone: Start: 01-05-2022 BASIC METABOLIC PANE L W/ REFLEX TO MG FOR LOW K Aneil A Stefania Zelaya MD Work Phone: Start: 01-05-2022 Blood count complete auto&auto difrntl wbc Aneil A Stefania Zelaya MD Work Phone: Start: 01-05-2022 Hepatic function panel Aneil A Stefania Zelaya MD Work Phone: Start: 01-04-2022 Gluc [...] Radiologic exam ches t single view Blayne A Stefania Zelaya MD Work Phone: Start: 01-04-2022 Assay of magnesium Anei l Chayo Zelaya MD Work Phone: Start: 01-04-2022 BASIC [...] xcpt urine blood/stool aerobic isol Isabel Nj PAIRER SUBSTANDARD - NUTRITION EDUCATOR Work Phone: Start: 01-01-2022 Other source albumin quantitative each specimen Isabel Nj PAIRER [employer]STANDARD - NUTRITION EDUCATOR Work Phone: Start: 01-01-2022 Radiologic exam ches t single view Isabel Nj PAIRER SUBSTANDARD - NUTRITION EDUCATOR Work Phone: Start: 01-01-2022 Perq drainage pleura insert cath w/imaging Blayne Zelaya MD Work Phone: Start: 01-01-2022 Radiologic exam ches t single view Blayne Zelaya MD Work Phone: Start: 01-01-2022 Radiologic exam abdo men 1 view Isabel Nj PAIRER SUBSTANDARD - NUTRITION EDUCATOR Work Phone: Start: 01-01-2022 End: 01-01-2022 Gluc [...] Start: 12-31-2021 MRSA BY PCR Isabel hayes PAIRER [employer]STANDARD - NUTRITION EDUCATOR Work Phone: Start: 12-31-2021 Gluc bld gluc mntr d ev cleared fda spec home use Johnny Berrios MD Work Phone: Start: 12-31-2021 Ct angiography chest w/contrast/noncontrast Isabel Nj PAIRER [employer]STANDARD - NUTRITION EDUCATOR Work Phone: Start: 12-31-2021 Dup-scan xtr veins c omplete bilateral study Blayne Zelaya MD Work Phone: Start: 12-31-2021 Radiologic exam abdo men 1 view Isabel Nj PAIRER SUBSTANDARD - NUTRITION EDUCATOR Work Phone: Start: 12-31-2021 Radiologic exam ches t single view Blayne Zelaya MD Work Phone: Start: 12-31-2021 Blood count complete auto&auto difrntl wbc Jovi Maciel MD Work Phone: Start: 12-31-2021 Assay of magnesium Aravind sa Katlin Araujo MD Work Phone: Start: 12-31-2021 BASIC [...] juan Beasley MD Work Phone: Start: 12-30-2021 LINE SERVER CLINICAL BEDSIDE SWALLOW EVALUATION & TREATMENT Yariel Beasley MD Work Phone: Start: 12-30-2021 Radiologic exam abdo men 1 view Isabel Wheaton PAIRER [employer]STANDARD - NUTRITION EDUCATOR Work Phone: Start: 12-30-2021 RENAL & LIVER PROFILE L danielle Nj PAIRER SUBSTANDARD - NUTRITION EDUCATOR Work Phone: Start: 12-30-2021 BASIC METABOLIC PANE L W/ REFLEX TO MG FOR LOW K Blayne Zelaya MD Work Phone: Start: 12-30-2021 Cyanocobalamin vitamin b-12 Kristopher Todd PAIRER SUBSTANDARD - TEST DATA DEVELOPER Work Phone: Start: 12-30-2021 Radiologic exam ches [...] Work Phone: Start: 12-29-2021 TOTAL PROTEIN, FLUID Eusebio Araujo MD Work Phone: Start: 12-29-2021 Cul [...] routine ecg w/le ast 12 lds w/i&r Jovi Maciel MD Work Phone: Start: 12-29-2021 Assay [...] Author Start: 09-15-2025 LIPID SCREEN LIPID SCREEN [facility] Start: 09-16-2023 DIABETES SCREEN DIABETES SCREEN [facility] Start: 08-26-2023 Thyroid stimulating hormone measurement [facility] Start: 08-26-2023 [facility] Start: 01-30-2023 [facility] Start: 01-11-2023 Patient referral [facility] Work Phone: Start: 12-27-2022 Influenza vaccination LUNG CANCER SC REENING [facility] Start: 12-24-2022 Influenza vaccination INFLUENZ A (Season Ended) [facility] Start: 07-11-2022 ANNUAL PCP TEAM WASHHOUSE HAND PATRICIA DISEASE VISIT ANNUAL PCP TEAM CHRONIC DISEASE VISIT [facility] Start: 04-25-2022 ADVANCE DIRECTIVE DISCUSSION ADVANCE DIRECTIVE DISCUSSION [facility] Start: 04-25-2022 DEPRESSION ASSESSMENT [facility] Start: 12-24-2021 Influenza vaccination INFLUENZA (#1) [facility] Start: 12-24-2021 [facility] Start: 06-30-2021 COVID-19 VACCINE (3 - Booster for Moderna series) COVID-19 VACCINE (3 - Booster for Moderna series) [facility] Start: 04-25-2021 ADVANCE DIRECTIVE DISCUSSION ADVANCE DIRECTIVE DISCUSSION [facility] Start: 04-25-2021 DEPRESSION ASSESSMENT DEPRESSION ASS ESSMENT [facility] Start: 03-27-2021 COVID-19 VACCINE (3 - Booster for Moderna series) COVID-19 VACCINE (3 - Booster for Moderna series) [facility] Start: 02-27-2021 [facility] Start: 02-16-2017 Adult depression scr eening assessment DEPRESSION SCREENING [facility] Start: 02-11-2017 Mammography MAMMOGRAM [facility] Start: 04-01-2015 COLORECTAL CANCER SCREENING COLORECTAL CANCER SCREENING [facility] Start: 04-01-2015 FECAL OCCULT BLOOD FECAL OCCULT BLOO D [facility] Start: 2007 HEPATITIS B (1 of 3 - Risk 3-dose series) HEPATITIS B (1 of 3 - Risk 3-dose series) [facility] Start: 06-30-1997 Influenza vaccination LUNG CANCER SC REENING [facility] Start: 06-30-1997 SHINGRIX VACCINE (1 of 2) CAMPOS GRIX VACCINE (1 of 2) [facility] Start: 06-30-1992 COLOGUARD (FIT-DNA) COLOGUARD (FIT-D NA) [facility] Start: 06-30-1992 Colonoscopy COLONOSCOPY [facility] Start: 06-30-[address] COLONOGRAPHY [facility] Start: 06-30-1992 SIGMOIDOSCOPY SIGMOIDOSCOPY [facility] Start: 06-30-1966 HEPATITIS B (1 of 3 - Risk 3-dose series) HEPATITIS B (1 of 3 - Risk 3-dose series) [facility] Start: 06-30-1966 Urine microalbumin profile DTAP,TDAP ,TD (1 - Tdap) [facility] Start: 06-30-1966 [facility] Start: 06-30-1965 BP CONTROLLED (<130/80) BP CONTROLLE D (<130/80) [facility] Start: 06-30-1965 MMR (1 of 2 - Risk 2 -dose series) MMR (1 of 2 - Risk 2-dose series) [facility] Start: 06-30-1957 MENINGOCOCCAL B: Con bird cage assembler based on risk (1 of 4 - Increased Risk Bexsero 2-dose series) MENINGOCOCCAL B: Consider based on risk (1 of 4 - Increased Risk Bexsero 2-dose series) [facility] Start: 06-30-1953 PNEUMOCOCCAL: 65+ (1 - PCV) PNEUMOCOCCAL: 65+ (1 - PCV) [facility] Start: 06-30-1948 HEPATITIS A (1 of 2 - Risk 2-dose series) HEPATITIS A (1 of 2 - Risk 2-dose series) [facility] [employer] [facility] Work Phone: Alanine aminotransfe rase [Enzymatic activity/volume] in Serum or Plasma [facility] Albumin [Mass/volume ] in Serum or Plasma [facility] Alkaline phosphatase [Enzymatic activity/volume] in Serum or Plasma [facility] Anion gap measurement [facility] Ankle brachial press ure index [facility] Aspartate aminotrans ferase [Enzymatic activity/volume] in Serum or Plasma [facility] End: 01-17-2022 Basic Metabolic Panel w/ Reflex to MG [facility] Work Phone: Basic Metabolic Pane l w/ Reflex to MG [facility] Work Phone: Bilirubin, total measurement [facility] BUN/Creatinine ratio [facility] Calcium [Mass/volume ] in Serum or Plasma [facility] Carbon dioxide, tota l [Moles/volume] in Serum or Plasma [facility] End: 01-17-2022 CBC W Auto Differential panel - Blood [facility] Work Phone: Chloride [Moles/volu me] in Serum or Plasma [facility] Creatinine [Moles/vo lume] in Serum or Plasma [facility] Glucose [Mass/volume ] in Serum or Plasma [facility] Work Phone: Glucose [Mass/volume ] in Serum or Plasma [facility] End: 12-31-2021 Hepatic function 2000 panel - Serum or Plasma [facility] Work Phone: End: 12-27-2021 Lactate [Moles/volume] in Serum or Plasma [facility] Work Phone: Measurement of renal function [facility] End: 12-29-2021 MRSA by PCR [facility] Work Phone: Nasotracheal suctioning [facility] Work Phone: Oxygen therapy [[facility] Data Set] [facility] Work Phone: Patient Education [facility] Work Phone: Patient referral [facility] Work Phone: Potassium [Moles/vol ume] in Serum or Plasma [facility] End: 12-27-2021 Protime-INR [facility] Work Phone: End: 11-20-2022 Screening mammography bi 2-view breast inc cad JACQUI SCREENING Radiology Routine Encounter for screening mammogram for breast cancer 1 Occurrences starting 10/21/2021 until 11/20/2022 [facility] Work Phone: Comment on above: 1 Occurrences starti ng 10/21/2021 until 11/20/2022 Sodium [Moles/volume ] in Serum or Plasma [facility] Total protein measurement [facility] Urea nitrogen [Mass/volume] in Serum or Plasma [facility] VL LOWER EXTREMITY BILATERAL VENOUS DUPLEX [facility] Work Phone: XR CHEST PORTABLE [facility] Work Phone: Immunizations Immunization Date Immunization Notes Care Provider Laurie gayle 01-30-2021 COVID-19 vaccine, fu ll dose (MODERNA) Michael Cox MD Work Phone: [facility] Payers Date Payer Category Payer Medicaid [id number] 2024 Self-pay [id number] 2024 Unknown [id number] 2010 Medicare [id number] 2010 Medicare MEDICARE MEDICAR E A AND B [id number] 2010-Present [phone] [place] [address] Medicare [id number] 2010 Medicare 1945 Unknown [id number] 2.840.1.392667.3.579.2.668 Unknown [id number] 2.840.1.105821.3.579.2.462 Unknown [id number] 2.16.840.1.322233.3.579.2.462 Unknown [id number] 2.16.840.1.262637.3.579.2.462 Unknown [id number] 2.16.840.1.180197.3.579.2.462 Unknown [id number] 2.16.840.1.239805.3.579.2.462 Unknown [id number] 2.16.840.1.499880.3.579.2.462 Unknown [id number] 2.16.840.1.635509.3.579.2.462 Unknown [id number] 2.16.840.1.825721.3.579.2.462 Unknown [id number] 2.840.1.893002.3.579.2.462 Unknown [id number] 2.840.1.075160.3.579.2.462 Unknown [id number] 2..840.1.283170.3.579.2.462 Unknown [id number] 2.840.1.811883.3.579.2.462 Unknown [id number] 2.16.840.1.222430.3.579.2.462 Unknown [id number] 2.840.1.691146.3.579.2.462 Unknown [id number] 2.16.840.1.553663.3.579.2.462 Unknown [id number] 2.16.840.1.661017.3.579.2.462 Unknown [id number] 2.16.840.1.230434.3.579.2.462 Unknown [id number] 2.16.840.1.773449.3.579.2.462 Unknown [id number] 2.16.840.1.554764.3.579.2.462 Unknown [id number] 2.16.840.1.144202.3.579.2.462 Unknown [id number] 2.16.840.1.421656.3.579.2.462 Unknown [id number] 2.16.840.1.922422.3.579.2.462 Unknown [id number] 2.16.840.1.767624.3.579.2.462 Unknown [id number] 2.16840.1.597327.3.579.2.462 Unknown [id number] 2.16.840.1.312146.3.579.2.462 Social History Date Type Detail Facility Start: 08-07-2021 End: 02-24-2023 Tobacco smoking status SCIS Unknown if ever smoked [facility] Start: 06-27-2018 Heavy [facility] Start: 06-27-2018 None [facility] Start: 11-26-2016 Alone [facility] Start: 06-29-2018 Cigarettes [facility] Start: 1945 Sex Assigned At Female [facility] Start: 07-25-2017 End: 01-04-2022 Tobacco smoking status NHIS Smokes tobacco daily [facility] History of tobacco use Cigarette Smoker [facility] Start: 07-11-2021 Alcohol intake Current drinke r of alcohol (finding) [facility] Start: 07-25-2017 End: 07-11-2021 Alcohol intake [facility] Start: 1945 Sex Assigned At Not on file [facility] Start: 07-25-2017 End: 01-04-2022 Tobacco use and exposure Smokeless tobacco non-user [facility] Work Phone: Start: 12-25-2021 End: 01-04-2022 Exposure to SARS-CoV-2 (event) Not sure [facility] Work Phone: Start: 04-27-2023 End: 01-22-2025 Tobacco smoking status NHIS Ex-smoker (finding) [facility] Start: 07-26-2024 End: 08-06-2024 Sex Female (finding) [facility] Sex Female [facility] Mental Status Date Assessment Result Facility 12-27-2021 Cognitive function Level Of Cons ciousness Awake;Alert;Follows Commands [facility] Work Phone: Clinical Notes 01-30-2014 to 02-06-2025 Note Date & Type Note Facility 02-06-2025 Radiology Diagnostic study note [facility] Imaging Services [address] [place] [address] HIP, UNI W/ Pelvis 2-3 Views MR#: [id number] Acct: [id number] Name: JAIMIE AVENDANO Rep #: [id number] : 1945 F 79 From: Pao Lawrence MD PCP: Dr. Viviana Mcgee MD Status: D EP AMB Study:HIP, UNI W/ Pelvis 2-3 Views Date of Ex am: 02/06/25 Exam# [id number] Ordering Dr: Jovi Salas PROCEDURE: HIP, UNI W/ PELVIS 2-3 VIEWS 02/06/2025 REASON FOR EXAM: L HIP PAIN, LIMITED ROM TECHNIQUE: Procedure Code: RADHP Modality: DX Procedure: HIP, UNI W/ PELVIS 2-3 VIEWS Laterality: Left COMPARISON: None FINDINGS: The bony pelvis is intact. The SI joints are normal. There is mild degenerativedisc disease, L3-4 through L5-S1. There are no soft tissue abnormalities. AP view of the right hip demonstrates a screw plate and compression screw through healed intertrochanteric fracture. There is no evidence of acute fracture or dislocation. There is moderate arthritis of the right hip. The periarticular soft tissues are normal. AP and lateral views of the left hip demonstrate no evidence of fracture or dislocation. There is moderate arthritis of the left hip. The periarticular soft tissues are normal. RAD/HIP, UNI W/ Pelvis 2-3 Views IMPRESSION: Moderate arthritis of the left hip. Other findings as noted. Reading Location: [place] [address] CC: TEST DATA DEVELOPER-C Terri Salas; Dr. Viviana Mcgee MD ~ Manufacturing Quality Inspector: Signed [facility] Work Phone: 02-06-2025 Progress note [facility] 02-06-2025 Radiology Diagnostic study note [facility] Imaging Services [address] [place], [place] [address] Knee 4 or More Views MR#: [id number] Acct: [id number] Name: JAIMIE AVENDANO Rep #: [id number] : 1945 F 79 From: Pao Lawrence MD PCP: Dr. Viviana Mcgee MD Status: D EP AMB Study:Knee 4 or More Views Date of Exam: 02/06/25 Exam# [id number] Ordering Dr: Jovi Salas TEST DATA DEVELOPERAkira PROCEDURE: KNEE 4 OR MORE VIEWS 02/06/2025 REASON FOR EXAM: CHRONIC PAIN, NKI TECHNIQUE: Procedure Code: RADKN Modality: DX Procedure: KNEE 4 OR MORE VIEWS Laterality: Left COMPARISON: None FINDINGS: There is no evidence of fracture or dislocation. There is mild arthritis of thepatellofemoral joint. There is no arthritis of the medial joint space compartment of the knee. There is no arthritis of the lateral joint space compartment of the knee. There is enthesopathy of the patella. There is no knee joint effusion. The periarticular soft tissues are unremarkable. RAD/Knee 4 or More Views IMPRESSION: Mild arthritis of the patellofemoral joint. Reading Location: [place] [address] CC: TEST DATA DEVELOPER-C Terri Salas; Dr. Viviana Mcgee MD ~ Manufacturing Quality Inspector: Signed [facility] Work Phone: 06-27-2024 Evaluation note Diagnosis Onset Date Resolution PVD (peripheral vascular disease) chronic June 27 8:21am [facility] Work Phone: 1(242) 461-362304-28-2023 History of Present illness Narrative* Kinsey Gordon - 08/20/2022 1:38 PM EDT POPULATION HEALTH NAVIGATION OUTREACH Action/FYI I left a voice message and a my chart message Patient Identified by Name and : NO Outreach Outcome/Action Unable to reach patient: Left message [employer] message sent Did you use a PCP [...] 20, 2022 1:39 PM [facility] Attestation with edits by Mary [...] pain 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 Patient received CT scan at [place] ED and was transferred here with concern [...] her SICU stay. CT esophogram performed at [facility] with no extravasation of contrast [...] atherosclerotic disease noted. Significant (more content not included)...[facility]09-15-2022 History of Present illness Narrative* Leonarda Casillas RN - 01/07/2022 3:40 PM EDT Report called to GEORGETTE Tamayo at [place]. All questions answered. Patient to be picked up at 1630. * Sofiya Wall PTA - 01/07/2022 12:08 PM EDT Physical Therapy Facility/Department: [facility] Physical Therapy Treatment Note Name: Jaimie Mcgovern : 1945 Date of Service: 01/07/2022 Discharge Recommendations: Subacute/Long Term Facility Patient Diagnosis(es): The primary encounter diagnosis [...] History Lives With: Alone Type of Home: (Retirement) Home Layout: One level Home Access: Level entry Bathroom Shower/Tub: Tub/Shower unit Bathroom Toilet: Standard Bathroom Equipment: Grab bars in shower, Shower chair Bathroom Accessibility: Accessible Home Equipment: Cane, Walker, rolling (Pt unclear how often she is using these devices.) Receives Help From: Family ADL Assistance: Independent Homemaking Assistance: Needs assistance Homemaking Responsibilities: No Ambulation Assistance: Independent Transfer Assistance: Independent Active Fence Manufacture Supervisor: No Mode of Transportation: Family Occupation: Retired [...] Timed Code Treatment Minutes: 9 Minutes (TP) 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 - Patient stable for DC to SN[facility] Review of Systems Constitutional: Negative for chills, [...] ID still following - Zoysn completed - LINE SERVER following, continue with ensure, soft/easy chew diet [...] following - OP pulm follow-up Disposition: SNF ([facility]) when patient is medically stable per surgery [...] procedure well. Pt transported to [place] [address] * ELIZ Buck - 01/06/2022 12:35 PM EDT Occupational Therapy Facility/Department: [facility] Occupational Therapy Treatment Name: Jaimie Mcgovern : 1945 Date of Service: 01/06/2022 Discharge Recommendations: Subacute/Long Term Facility Assessment Assessment: Progressing toward goals; would [...] to sit: Contact guard assistance AM-PAC Score AM-PAC Inpatient Daily Activity Raw Score: 16 (01/06/221323) AM-PAC Inpatient ADL T-Scale Score : 35.96 (01/06/221323) [...] 01/06/2022 11:24 AM EDT Physical Therapy Facility/Department: [facility] Physical Therapy Daily Treatment Note Name: Jaimie Mcgovern : 1945 Date of Service: 01/06/2022 Discharge Recommendations: Subacute/Long Term Facility Patient Diagnosis(es): The encounter diagnosis was [...] History Lives With: Alone Type of Home: (Retirement) Home Layout: One level Home Access: Level entry Bathroom Shower/Tub: Tub/Shower unit Bathroom Toilet: Standard Bathroom Equipment: Grab bars in shower, Shower chair Bathroom Accessibility: Accessible Home Equipment: Cane, Walker, rolling (Pt unclear how often she is using these devices.) Receives Help From: Family ADL Assistance: Independent Homemaking Assistance: Needs assistance Homemaking Responsibilities: No Ambulation Assistance: Independent Transfer Assistance: Independent Active Fence Manufacture Supervisor: No Mode of Transportation: Family Occupation: Retired [...] per facility policy used during session* Aster Parks, CORPORATE STAFF ACCOUNTANT * Darlene Hanson, BIOLOGIST - 01/06/2022 9:30 AM EDT [facility] Respiratory Care Department Progress Note As part [...] the care of this patient, * Kristopher Todd APRN - TEST DATA DEVELOPER - 01/06/2022 9:04 AM EDT Images from the original note were not included. [facility] Geriatric Medicine Inpatient Consult Service Admission [...] factors --Recommend outpatient follow [facility] at [facility] formore in depth cognitive [...] eGFR >90.0 >60 mL/min EGFR IF NonAfrican Bhutanese 89.5 >60 mL/min Calcium 8.4 8.4 - [...] 0.8 (L) 1.0 - 4.3 10*3/uL Absolute Glasscock # 1.0 (H) 0.0 - 0.8 10*3/uL Absolute Eos # 0.1 0.0 - 0.5 10*3/uL Absolute Baso # 0.2 0.0 - 0.2 10*3/uL Lab Results Component Value Date TSH 2.263 12/29/2021 Lab Results Component Value Date [id number] 459 12/30/2021 No results found for: VITD25 Reviewed: active problem list, medication list, lab results, * Hugh Marsh - 01/06/2022 7:38 AM EDT Images from the original note were not included. Med Team Progress Note Jaimie Mcgovern : 1945(76 y.o.) Date: January 06, 2022 Med Team: A Attending: Chief Complaint: BL P Subjective: - [...] ID still following - Zoysn completed - LINE SERVER following, continue with ensure, soft/easy chew diet [...] Last dose of scheduled phenobarb 01/02 - [facility] protocols stopped Tobacco Abuse - Pt smokes 1ppd - Continue encouraging cessation Hypothyroidism - TSH wnl on admission - Continue home synthroid 50 mcg COPD - Continue with goal O2 92% given COPD, acapella, IS, duonebs q4h, 3% nebs TID - Pulmonology following - OP pulm follow-up Disposition: SNF ([facility]) when patient is medically stable per surgery [...] d/c to SNF 01/08 * Aster Parks, CORPORATE STAFF ACCOUNTANT - 01/05/2022 11:50 AM EDT Physical Therapy Facility/Department: [facility] Physical Therapy Daily Treatment Note Name: Jaimie Mcgovern : 1945 Date of Service: 01/05/2022 Discharge Recommendations: Subacute/Long Term Facility Patient Diagnosis(es): The encounter diagnosis was [...] History Lives With: Alone Type of Home: (Retirement) Home Layout: One level Home Access: Level entry Bathroom Shower/Tub: Tub/Shower unit Bathroom Toilet: Standard Bathroom Equipment: Grab bars in shower, Shower chair Bathroom Accessibility: Accessible Home Equipment: Cane, Walker, rolling (Pt unclear how often she is using these devices.) Receives Help From: Family ADL Assistance: Independent Homemaking Assistance: Needs assistance Homemaking Responsibilities: No Ambulation Assistance: Independent Transfer Assistance: Independent Active Fence Manufacture Supervisor: No Mode of Transportation: Family Occupation: Retired [...] Mobility Raw Score : 13 (01/05/22 115) AM-PAC Inpatient T-Scale Score : 36.74 (01/05/22 115) Mobility Inpatient CMS 0-100% Score: 64.91 (01/05/22 115) Mobility Inpatient CMS G-Code Modifier : CL (01/05/22 115) Goals Short Term Goals Time Frame for [...] facility policy used during session* Aster Parks CORPORATE STAFF ACCOUNTANT * Maki Crystal LINE SERVER - 01/05/2022 11:24 AM EDT Facility/Department: [facility] Dysphagia Treatment Note NAME: Jaimie Mcgovern [...] Thought content normal. Routine labs: Recent Labs 01/03/223 01/04/22 01101/05/2257 WBC 7.6 10.0 13.4* HGB 10.8* 10.7* 11.6* HCT 32.7* 30.9* 35.7 PLT 365 451* 500* Recent Labs 01/03/223 01/04/22 0111 01/05/2257 NA 138 137 133* K 3.6 4.0 [...] me. This note documented and discussed by editor house organ Dr. Valverde reflects my history, exam and [...] Conjunctiva []Injected [x]Non-Injected Pinnae []Normal []Other Dentitian []Cheesh-Na Teeth []Dentures []edentulous Oral Mucosa [x][place] [x]Moist []Dry Oral ETT []Present [x]Absent Neck: [...] [x]Absent FLORES ([]RUE []RLE []LUE []LLE) Neurologic: [place] []Yes []No Corneal reflexes []Present []Absent Plantar [...] Jaimie Mcgovern : 1945(76 y.o.) Date: January 05, 2022 [...] Pulmonology following, ID following, recs appreciated - LINE SERVER following, continue with ensure, soft/easy chew diet [...] following - OP pulm follow-up Disposition: SNF ([facility]) when patient is medically stable per surgery [...] from the original note were not included. [facility] - Infectious Diseases Attending Progress Note Subjective: [...] show NGTD. Plan is for d/c to [facility] per primary. Objective: Vitals: Patient Vitals [...] normal. Labs: Component Value Date/Time NA 137 01/04/2022 011 K 4.0 01/04/2022110 CL 108 (H) 01/04/2022 011 CO2 22 01/04/2022 011 BUN 10 01/04/2022110 CREATININE 0.49 (L) 01/04/2022110 GLUCOSE 101 (H) 01/04/2022110 CALCIUM 7.9 (L) 01/04/2022110 PROT 5.9 (L) 01/03/202252 LABALBU 2.8 (L) 01/03/202252 BILITOT 0.4 01/03/202252 ALKPHOS 91 01/03/202252 AST 29 01/03/202252 ALT 14 01/03/202252 PROCAL 15.03 (H) 01/04/2022110 PROCAL 23.68 (H) 01/02/2022 0318 PROCAL 6.23 (H) 12/31/2021 0258 Component Value Date/Time WBC 10.0 01/04/2022110 HGB 10.7 (L) 01/04/2022110 HCT 30.9 (L) 01/04/2022110 PLT 451 (H) 01/04/2022110 GRANULOCYTES 83.2 (H) 01/04/2022110 LYMPHOPCT 6.5 (L) 01/04/2022110 MONOPCT 7.7 01/04/2022110 LABEOS 2.2 01/04/2022110 BASOPCT 0.4 01/04/2022110 NEUTROABS 8.3 (H) 01/04/2022110 Micro: 12/27 Respiratory panel, molecular, w/ COVID-19: [...] RUQ, R shoulder, R chest. CT at [place] ED showed cecal pneumatosis and pneumomediastinum,and she was transferred to [facility]. CT Esophagram showed no signs [...] hospital-acquired delirium - Low suspicion for acute BED TEACHER infection at this time - Patient has [...] Mental status has improved; no concern of BED TEACHER infection at this time 4. Pro-calcitonin elevation [...] 01/04/2022 2:50 PM EDT Physical Therapy Facility/Department: [facility] Physical Therapy Daily Treatment Note Name: Jaimie AvendanoMonyjada : 1945 Date of Service: 01/04/2022 Discharge Recommendations: Subacute/Long Term Facility Patient Diagnosis(es): The encounter diagnosis was [...] History Lives With: Alone Type of Home: (Retirement) Home Layout: One level Home Access: Level entry Bathroom Shower/Tub: Tub/Shower unit Bathroom Toilet: Standard Bathroom Equipment: Grab bars in shower, Shower chair Bathroom Accessibility: Accessible Home Equipment: Cane, Walker, rolling (Pt unclear how often she is using these devices.) Receives Help From: Family ADL Assistance: Independent Homemaking Assistance: Needs assistance Homemaking Responsibilities: No Ambulation Assistance: Independent Transfer Assistance: Independent Active Fence Manufacture Supervisor: No Mode of Transportation: Family Occupation: Retired [...] AM-PAC Inpatient Mobility Raw Score : 13 (01/04/221453) AM-PAC Inpatient T-Scale Score : 36.74 (01/04/221453) Mobility [...] used during session* Aster Parks PTA * Glenna Colon, LINE SERVER - 01/04/2022 2:21 PM EDT Speech Language Pathology Attempted to see this date for dysphagia treatment. Patient politely declined all PO offered. LINE SERVER will follow up with as schedule permits. Glenna Colon MA, [facility]-LINE SERVER * Alejandro Georges MD - 01/04/2022 2:16 [...] deltoids) Fluid Accumulation: No significant fluid accumulation Inspector Air Carrier Strength: Not Performed Nutrition Assessment: 76 year old woman who remains admitted as transfer from [facility] with concern for cecal pnematosis. S/P Right thoracentesis on 12/29/21 with 500 mL removal. Had recurrence of BL pleural effusions R> L and multifocal infiltrate L>R on repeat CT 12/31/21, right sided pig tail catheter placed 01/01/22. Geriatrics and palliative care following for declining functional status. Transferred from ICU to [facility] over the weekend. Plans to remove [...] Supplement Anthropometric Measures: Height: 5' (152.4 cm) [place] Body Weight (IBW): 100 lbs (45 kg) [...] Requirements: Admission Energy (kcal/day): 25-28 kcals/kg = 1822-8523 kcals/day Weight Used for Protein Requirements: Admission [...] to determine Estefania [address], LD Contact: *[phone] [address] [employer] * ELIZ Cedeño - 01/04/2022 11:41 AM EDT Occupational Therapy Facility/Department: [facility] Occupational Therapy daily note Name: Jaimie Mcgovern : 1945 Date of Service: 01/04/2022 Discharge Recommendations: Subacute/Long Term Facility Patient Diagnosis(es): The encounter diagnosis was [...] History Lives With: Alone Type of Home: (Retirement) Home Layout: One level Home Access: Level entry Bathroom Shower/Tub: Tub/Shower unit Bathroom Toilet: Standard Bathroom Equipment: Grab bars in shower, Shower chair Bathroom Accessibility: Accessible Home Equipment: Cane, Walker, rolling (Pt unclear how often she is using these devices.) Receives Help From: Family ADL Assistance: Independent Homemaking Assistance: Needs assistance Homemaking Responsibilities: No Ambulation Assistance: Independent Transfer Assistance: Independent Active Fence Manufacture Supervisor: No Mode of Transportation: Family Occupation: Retired [...] EOB and toilet for balance. AM-PAC Score AM-[facility] Inpatient Daily Activity Raw Score: 15 (01/04/22 [...] 1 fun act) ELIZ Cedeño * Nini Thomas, PAIRER SUBSTANDARD - NUTRITION EDUCATOR - 01/04/2022 10:31 AM EDT Images from [...] PT/OT PT/OT [facility] advising SNF Lived alone CORPORATE STAFF ACCOUNTANT- steady decline in function - pending acceptance to [facility] in [place], she was there before and did well, uncertain atthis time if will be able to return home vs LTC there Malnutrition - recommended diet per LINE SERVER easy to chew with think liquids , add ensure enlive TID with meals Alcohol abuse: History of cirrhosis-- labs reviewed [facility] protocol d/c 01/01 Phenobarb d/c [...] Diagnosis and Prognosis Discharge planning: discharge to [facility] Patient meets criteria for general inpatient hospice [...] COPD, and hypothyroidism. She was transferred from [place] for presentation of right chest, shoulder and abdominal pain. CT in [place] raised concern for pneumomediastinum and cecal pneumatosis. She was a surgery consult at [facility] where no surgical interventions were [...] withdrawal. Mentation has improved since that time. [facility] protocol for ETOH d/c 12/31. Patient smokes [...] baseline. Psychiatric: Mood and Affect: Mood normal. Caspar Symptom Assessment Score Caspar Score Pain Score 7 Tiredness Score 2 [...] from the original note were not included. [facility] Geriatric Medicine Inpatient Consult Service Admission [...] [facility] formore in depth cognitive [...] eGFR >90.0 >60 mL/min EGFR IF NonAfrican Bhutanese >90.0 >60 mL/min Calcium 7.9 (L) 8.4 [...] 0.7 (L) 1.0 - 4.3 10*3/uL Absolute Glasscock # 0.8 0.0 - 0.8 10*3/uL Absolute [...] 2.263 12/29/2021 Lab Results Component Value Date [id number] 459 12/30/2021 No results found for: VITD25 Reviewed: active problem list, medication list, lab results, * Hugh Marsh - 01/04/2022 9:11 AM EDT Images from the original note were not included. Med Team Progress Note Jaimie Mcgovern : 1945(76 y.o.) Date: January 04, 2022 Med Team: A Attending: Dr. Acosta Chief Complaint: BL pleural [...] Pulmonology following, ID following, recs appreciated - LINE SERVER following, continue with ensure, soft/easy chew diet [...] Last dose of scheduled phenobarb 01/02 - [facility] protocols stopped Tobacco Abuse - Pt smokes 1ppd - Continue encouraging cessation Hypothyroidism - TSH wnl on admission - Continue home synthroid 50 mcg COPD - Continue with goal O2 92% given COPD, acapella, IS, duonebs q4h, 3% nebs TID - Pulmonology following - OP pulm follow-up Disposition: SNF ([facility]) when patient is medically stable per surgery [...] by me this afternoon. D/W Palliative care TEST DATA DEVELOPER. -anticpate d/c to SNF once chest tube removed and tolerates that. * Roberto Rodriguez, DO - 01/03/2022 2:18 PM EDT Images from the original note were not included. [facility] - Infectious Diseases Attending Progress Note Subjective: [...] 2210 122/62 -- -- 76 -- -- 01/02/22 2152 122/62 97.5 F (36.4 C) Temporal 78 [...] BUN 10 01/03/2022 0053 CREATININE 0.61 01/03/2022 0053 GLUCOSE 99 01/03/2022 0053 CALCIUM 7.8 (L) 01/03/2022 0053 PROT 5.9 (L) 01/03/2022 0053 LABALBU 2.8 (L) 01/03/2022 0053 BILITOT 0.4 01/03/2022 0053 ALKPHOS 91 01/03/2022 0053 AST 29 01/03/2022 0053 ALT 14 01/03/2022 0053 PROCAL 23.68 (H) 01/02/2022 0318 PROCAL 6.23 (H) 12/31/2021 0258 PROCAL 3.68 (H) 12/29/2021 1018 Component Value Date/Time WBC 7.6 01/03/2022 0053 HGB 10.8 (L) 01/03/2022 0053 HCT 32.7 (L) 01/03/202252 PLT 365 01/03/202252 [...] alcoholic cirrhosis, hypothyroidism, and COPD. Presented to [facility] 12/27 w/ pain in the RUQ, R shoulder, and R chest. CT at [place] [facility] showed cecal pneumatosis and pneumomediastinum, and she was transferred to [facility]. Both general surgery and thoracic [...] conservatively per the recommendations of general bassam davon. Patient has developed altered mental status since admission, and procalcitonin increased to 23 from 6. The ID service is consulted for AMS and elevated procalcitonin. Plan: 1. Acute metabolic encephalopathy - Patient developed AMS after admission to the ICU - Likely multifactorial in the setting of ETOH withdrawal, polypharmacy, hospital-aquired delirium - Low suspicion for acute BED TEACHER infection at this time 2. Elevated procalcitonin- [...] Mental status has improved; no concern of BED TEACHER infection at this time 4. Pro-calcitonin elevation [...] Pulmonology following, ID following, recs appreciated - LINE SERVER following, continue with ensure, soft/easy chew diet [...] following - OP pulm follow-up Disposition: SNF ([facility]) when patient is medically stable per surgery [...] to placement into SNF; advanced directives per Pall care. * Raman Monte MD - 01/03/2022 [...] kg/m INTAKE/OUTPUT: Date 01/02/22 0000 - 01/02/22 2359 Shift 2765-2760 5341-8585 5915-1288 24 Hour Total INTAKE P.O.(mL/kg/hr) 250(0.6) 250 [...] Surgery PGY-2 01/02/22 8:27 AM Pager # [phone] This note may have been dictated using WazeTrip Medical Practice Edition 2.6 and/or Happy Elements Voice Recognition Feature. The document was proofread; however, unrecognized voice recognition automobile insurance claim examiner errors may be present. Associated attestation - Erendira Maciel MD - 01/03/2022 8:40 PM EDT ~~~~~~~~~~~~~~~~~~~~~~~~~~~~~~~~~~~~~~~~~~~~~~~~~~~~~~~~~~~~~ ATTENDING [facility] Hospital Problems Last Modified POA * (Principal) [...] MD Division of Trauma Department of Surgery [facility] Pager: [phone] ~~~~~~~~~~~~~~~~~~~~~~~~~~~~~~~~~~~~~~~~~~~~~~~~~~~~~~~~~~~~~ This note may have been dictated using W[employer] Medical Practice Edition 2.6 and/or Happy Elements Voice Recognition Feature. The document was proofread; however, unrecognized voice recognition automobile insurance claim examiner errors may be present. * Darlene Hanson, [facility] - 01/02/2022 7:29 AM EDT [facility] Respiratory Care Department Progress Note As [...] RUQ pain. Patient received CT scan at [place] [facility] and was transferred here with concern [...] DESTINY Swenson CNP 1 patch at 01/01/22 1435 PHENobarbital (LUMINAL) tablet 16.2 mg 16.2 mg Oral Nightly DESTINY Philip CNP folic acid (FOLVITE) tablet 1 mg 1 mg Oral Daily DESTINY Philip CNP thiamine mononitrate tablet 100 mg 100 mg Oral Daily DESTINY Philip CNP QUEtiapine (SEROQUEL) tablet 50 mg 50 mg Oral Nightly Scott Durant MD 50 mg at 01/02/22 0003 potassium chloride (KLOR-CON) packet 40 mEq 40 [...] solution 1 ampule 1 ampule Inhalation Q4H MA Monika Araujo MD 1 ampule at 01/01/22 2045 piperacillin-tazobactam (ZOSYN) 4500 mg in dextrose 100 [...] -- 80 20 97 % -- -- 01/01/22 2045 -- -- -- 80 27 96 % [...] % -- -- Date 01/02/22 0000 - 01/02/22 2359 Shift [id number] 1062-9942 6399-4875 24 Hour Total INTAKE P.O.(mL/kg/hr) 250 250 [...] Radiology ACCESSION EXAM DATE/TIME PROCEDURE ORDERING PROVIDER [id number] 12/30/2021 07:53 EDT CR Abdomen AP [id number] -ISABEL [place] CPT code 40864 Reason For Exam (CR Abdomen AP) assess [...] Radiology ACCESSION EXAM DATE/TIME PROCEDURE ORDERING PROVIDER [id number] 12/29/2021 10:58 EDT CR Abdomen AP [id number] BLAYNE HILL CPT code 81739 Reason For Exam (CR Abdomen AP) distention, [...] Tomography ACCESSION EXAM DATE/TIME PROCEDURE ORDERING PROVIDER [id number] 12/27/2021 14:[address] Thorax w/ Contrast [id number] MONIKA AYOUB CPT code 50962 Q9967 Reason For Exam (CT Thorax w/ [...] Radiology ACCESSION EXAM DATE/TIME PROCEDURE ORDERING PROVIDER [id number] 12/30/2021 06:05 EDT CR Chest Portable TIMOTHY, MD, JOVI CPT code 38338 Reason For Exam (CR Chest Portable) patient [...] Radiology ACCESSION EXAM DATE/TIME PROCEDURE ORDERING PROVIDER [id number] 12/29/2021 05:47 EDT CR Chest Portable [id number] EUSEBIO AYOUBYSSA CPT code 59841 Reason For Exam (CR Chest Portable) pneumomediastinum [...] Radiology ACCESSION EXAM DATE/TIME PROCEDURE ORDERING PROVIDER [id number] 12/29/2021 00:49 EDT CR Chest Portable MD MACIEL ANDREW CPT code 69085 Reason For Exam (CR Chest Portable) patient [...] Radiology ACCESSION EXAM DATE/TIME PROCEDURE ORDERING PROVIDER [id number] 12/28/2021 12:22 EDT CR Chest Portable MD GONZALEZ DAVID CPT code 63956 Reason For Exam (CR Chest Portable) s/p [...] Radiology ACCESSION EXAM DATE/TIME PROCEDURE ORDERING PROVIDER [id number] 12/28/2021 05:56 EDT CR Chest Portable [id number] -MARGIOTTA, MONIKA CPT code 61676 Reason For Exam (CR Chest Portable) pneumomediastinum [...] Ultrasound ACCESSION EXAM DATE/TIME PROCEDURE ORDERING PROVIDER [id number] 12/29/2021 16:07 EDT US Thora-Aspir Pleura w/ [id number] -MARGIOTTA, Image MONIKA CPT code 42797 Reason For Exam (US Thora-Aspir Pleura w/ [...] Blayne Zelaya MD PGY3, General Surgery Pager #[phone] Associated attestation - Erendira Maciel MD - [...] aldactone --> maintenance inhalers Gastrointestinal system - LINE SERVER - easy chew - LFTs wnl - [...] the day (including chart review,care coordination, and [id number] encounter) was spent discussing/counseling the patient/family regarding [...] MD Division of Trauma Department of Surgery [facility] Pager: [phone] ~~~~~~~~~~~~~~~~~~~~~~~~~~~~~~~~~~~~~~~~~~~~~~~~~~~~~~~~~~~~~ This note may have been dictated using W[employer]Trip Medical Practice Edition 2.6 and/or Happy Elements Voice Recognition Feature. The document was proofread; however, unrecognized voice recognition automobile insurance claim examiner errors may be present. * Cailin Mcdonald APRN - NUTRITION EDUCATOR - 01/01/2022 4:34 PM EDT Images from the original note were not included. [facility] Geriatric Medicine Inpatient Consult Service Admission [...] factors --Recommend outpatient follow up at [facility] formore in depth cognitive [...] SNF for ongoing daily PT/OT Discussed with [id number], Soha, at bedside Follow-up: will plan to [...] 1 in thepast 48 hrs. Worked with LINE SERVER this afternoon, cleared for easy to chew [...] eGFR >90.0 >60 mL/min EGFR IF NonAfrican Bhutanese >90.0 >60 mL/min Calcium 7.2 (L) 8.4 [...] 0.3 (L) 1.0 - 4.3 10*3/uL Absolute Glasscock # 0.7 0.0 - 0.8 10*3/uL Absolute [...] 2.263 12/29/2021 Lab Results Component Value Date [id number] 12/30/2021 No results found for: VITD25 Reviewed: active problem list, medication list, lab results, * Mily Mendenhallharper - 01/01/2022 2:27 PM EDT Physical Therapy Facility/Department: [facility] ICU T2 Physical Therapy treatment note Name: Jaimie Mcgovern : 1945 Date of Service: 01/01/2022 Discharge Recommendations: Subacute/Long Term Facility Patient Diagnosis(es): The encounter diagnosis was [...] Visit: Reassess Nutrition Recommendations/Plan: Recommend diet per LINE SERVER: Easy to chew with thin liquids Assist [...] deltoids) Fluid Accumulation: No significant fluid accumulation Inspector Air Carrier Strength: Not Performed Nutrition Assessment: 76 year old woman with PMHx: EtOH cirrhosis, COPD, hypothyroidism who presents with Right shoulder,Right chest, and RUQ pain. Initially presented to [place] [facility] on 12/27, +CT scan completed: trivial coronary calcification was seen multiple small area of the LAD . Patient then transferred to [facility] d/t concern for cecal pneumatosis as well as pneumomediastinum. Underwent s/p thoracentesis of 525 mL on 12/29/21. +KUB this morning: No pneumatosis intestinalis or pneumatosis coli. Nonobstructive bowel gaspattern . GenSurg with no plans for surgical intervention at this time. +CTS following for poor respiratory status, and no intervention of pneumomediastinum. Remains on HHFNC. LINE SERVER recommending: Easy To Chew Menu with Thin Liquids diet when able to advance. This morning, NPO for chest tube placement. Visited patient on her return to the room. Per RN patient with suboptimal intake CORPORATE STAFF ACCOUNTANT and since admit. Willing to try ONS [...] Supplement Anthropometric Measures: Height: 5' (152.4 cm) [place] Body Weight (IBW): 100 lbs (45 kg) [...] Requirements: Admission Energy (kcal/day): 25-28 kcals/kg = 6068-0646 kcals/day Weight Used for Protein Requirements: Admission [...] Too soon to determine Estefania North RD, JOSELUIS Contact: [phone] Or [employer] * Nini Katlin Thomas, PAIRER SUBSTANDARD - NUTRITION EDUCATOR - 01/01/2022 1:33 PM EDT Images from the original note were not included. Palliative Care Progress Note Chief Complaint: Jaimie AvendanoJesBuck a 76 y.o. female with chief complaint of CP, abdominal pain Palliative care is actively following this patient. Assessment/Plan Assessment/Plan Shortness of breath - pending thoracentesis today - on HFNC 50%/35L--weaned to 5L - pleural effusion - pneumomediastinum - reviewed labs - blood cultures - iv abx - lactic acid down trending - active smoker CORPORATE STAFF ACCOUNTANT - hypertonic saline nebs - duonebs Large R pleural effusion - thoracentesis 12/29/21 with 500ML removed - R pigtail placed 01/01/22 for recurrence pleural effusion - pending pulm consult Pneumomediastinum - CTS following, no plans for intervention at this time Cecal pneumatosis - serial films - per SICU team Debility - PT/OT when medically stable - lived alone CORPORATE STAFF ACCOUNTANT, most recently daughter was helping with IADLs - she has refused to move in with children who have asked repeatedly - open to SNF at [place] - TCC/MAT SEWER aware Alcohol abuse - history of cirrhosis - [facility] protocol--no longer requiring - on phenobarb, reduced [...] daughter at bedside Psychiatric: Comments: No agitation Caspar Symptom Assessment Score Caspar Score Pain Score 3 Tiredness Score 2 [...] Illness: Is patient hospice appropriate? TBD * Maki Crystal, JOHN - 01/01/2022 12:50 PM EDT Facility/Department: [facility] ICU T2 Dysphagia Treatment Note [...] Date 01/01/22 0000 - 01/01/22 2359 Shift [id number] 9624-3047 5028-0524 24 Hour Total INTAKE Shift Total(mL/kg) OUTPUT [...] 2.9* 4.1 CL 108* 111* 112* CO2 BUN 8* 5* 3* CREATININE 0.53 0.49* [...] Surgery PGY-2 01/01/22 10:44 AM Pager # [phone] This note may have been dictated using [employer] Practice Edition 2.6 and/or Happy Elements Voice Recognition Feature. The document was proofread; however, unrecognized voice recognition automobile insurance claim examiner errors may be present. * Stephanie Olivia [...] well.Patient returned to T2 via bed * Isabel Nj APRN - JONATHAN - 01/01/2022 7:02 AM EDT Daily SICU Progress Note Nurse Practitioner 01/01/2022 7:02 AM Admit Date: 12/27/2021 Post Hospital Day 5 History of Present illness: 76 y.o. female with significant past medical history of cirrhosis, COPD, hypothyroidism who presents with R shoulder, R chest, and RUQ pain. Patient received CT scan at [place] [facility] and was transferred here with concern [...] IntraVENous Daily DESTINY Philip CNP Stopped at 12/31/21 09 melatonin SL liquid 0.3 mg 0.3 mg [...] solution 1 ampule 1 ampule Inhalation Q4H MA Monika Araujo MD 1 ampule at 12/31/21 2217 labetalol (NORMODYNE;TRANDATE) injection 10 mg 10 mg [...] mg 1 mg IntraVENous Q1H PRN Monika rAaujo MD 1 mg at 12/29/21 0012 Or [...] Date 01/01/22 0000 - 01/01/22 2359 Shift 7398-7302 8095-8082 9083-9897 24 Hour Total INTAKE Shift Total(mL/kg) OUTPUT [...] Radiology ACCESSION EXAM DATE/TIME PROCEDURE ORDERING PROVIDER [id number] 12/30/2021 07:53 EDT CR Abdomen AP [id number] -ISABEL [place] CPT code 73777 Reason For Exam (CR Abdomen AP) assess [...] Radiology ACCESSION EXAM DATE/TIME PROCEDURE ORDERING PROVIDER [id number] 12/29/2021 10:58 EDT CR Abdomen AP [id number] -BLAYNE ZELAYA CPT code 66030 Reason For Exam (CR Abdomen AP) distention, [...] Tomography ACCESSION EXAM DATE/TIME PROCEDURE ORDERING PROVIDER [id number] 12/27/2021 14:[address] Thorax w/ Contrast [id number] MARYAMISABELLAMAYIMONIKA Domingo CPT code 90778 Q9967 Reason For Exam (CT Thorax w/ [...] Radiology ACCESSION EXAM DATE/TIME PROCEDURE ORDERING PROVIDER [id number] 12/30/2021 06:05 EDT CR Chest Portable MD MACIEL ANDREW CPT code 35086 Reason For Exam (CR Chest Portable) patient [...] Radiology ACCESSION EXAM DATE/TIME PROCEDURE ORDERING PROVIDER [id number] 12/29/2021 05:47 EDT CR Chest Portable [id number] -ARAVIND ARAUJOSA CPT code 00387 Reason For Exam (CR Chest Portable) pneumomediastinum [...] Radiology ACCESSION EXAM DATE/TIME PROCEDURE ORDERING PROVIDER [id number] 12/29/2021 00:49 EDT CR Chest Portable MD MACIEL ANDREW CPT code 17581 Reason For Exam (CR Chest Portable) patient with desaturation and tacypnea Report Chest one view HISTORY: Desaturation Right IJ central line. Moderate right pleural effusion. Adjacent right lower lung infiltrate. Cardiomegaly. Report Dictated on --- Final --- Dictated: 12/29/2021 0:47 am Dictating Physician: MD LIOA MALAY Signed Date and Time: 12/29/2021 0:47 am Signed by: MD LIAO MALAY Transcribed Date and Time: 12/29/2021 0:47 XR CHEST PORTABLE Result Date: 12/28/2021 Patient Name: JAIMIE MCGOVERN Diagnostic Radiology ACCESSION EXAM DATE/TIME PROCEDURE ORDERING PROVIDER [id number] 12/28/2021 12:22 EDT CR Chest Portable MD GONZALEZ DAVID CPT code 23560 Reason For Exam (CR Chest Portable) s/p [...] Radiology ACCESSION EXAM DATE/TIME PROCEDURE ORDERING PROVIDER [id number] 12/28/2021 05:56 EDT CR Chest Portable [id number] -MONIKA ARAUJO CPT code 11302 Reason For Exam (CR Chest Portable) pneumomediastinum [...] Ultrasound ACCESSION EXAM DATE/TIME PROCEDURE ORDERING PROVIDER [id number] 12/29/2021 16:07 EDT US Thora-Aspir Pleura w/ [id number] -GAYLE, Image MONIKA CPT code 76647 Reason For Exam (US Thora-Aspir Pleura w/ [...] CXRs. Leukocytosis 11.8 from 7.8. Consult Pulmonology. Dfium80iu IV once. Obtain peripheral IV and discontinue RIJ. Associated attestation - Eerndira Maciel MD - 01/01/2022 9:12 PM EDT ~~~~~~~~~~~~~~~~~~~~~~~~~~~~~~~~~~~~~~~~~~~~~~~~~~~~~~~~~~~~~ [facility] Problems Last Modified POA * (Principal) [...] aldactone --> maintenance inhalers Gastrointestinal system - LINE SERVER - easy chew - LFTs wnl - [...] MD Division of Trauma Department of Surgery [facility] Pager: [phone] ~~~~~~~~~~~~~~~~~~~~~~~~~~~~~~~~~~~~~~~~~~~~~~~~~~~~~~~~~~~~~ This note may have been dictated using WazeTrip Medical Practice Edition 2.6 and/or Happy Elements Voice Recognition Feature. The document was proofread; however, unrecognized voice recognition automobile insurance claim examiner errors may be present. * Mily Gerald - 12/31/2021 12:37 PM EDT Physical Therapy Facility/Department: [facility] ICU T2 Physical Therapy Initial Assessment Name: Jaimie AvendanoIsaias : 1945 Date of Service: 12/31/2021 Discharge Recommendations: Subacute/Long Term Facility Patient Diagnosis(es): The encounter diagnosis was [...] Position Activity Restriction Other position/activity restrictions: julissa PRABHAKAR tele Subjective General Chart Reviewed: Yes Patient assessed for rehabilitation services?: Yes Family / Caregiver Present: No Diagnosis: Pneumatosis of intestines Follows Commands: Within Functional Limits Subjective Subjective: Pt supine in bed upon arrival. Per nurse, pt going for CT scan soon but OK to be seen. Social/Functional History Social/Functional History Lives With: Alone Type of Home: (Retirement) Home Layout: One level Home Access: Level entry Bathroom Shower/Tub: Tub/Shower unit Bathroom Toilet: Standard Bathroom Equipment: Grab bars in shower, Shower chair Bathroom Accessibility: Accessible Home Equipment: Cane, Walker, rolling (Pt unclear how often she is using these devices.) Receives Help From: Family ADL Assistance: Independent Homemaking Assistance: Needs assistance Homemaking Responsibilities: No Ambulation Assistance: Independent Transfer Assistance: Independent Active Fence Manufacture Supervisor: No Mode of Transportation: Family Occupation: Retired [...] from going too far forward. OutComes Score AM-[facility] Score AM-[facility] Inpatient Mobility Raw Score : 15 (12/31/21 1235) AM-PAC Inpatient T-Scale Score : 39.45 (12/31/21 1235) Mobility Inpatient CMS 0-100% Score: 57.7 (12/31/21 1235) Mobility Inpatient CMS G-Code Modifier : CK [...] Plan of Care supervision is transferred to [facility] Rehab Department Physical Therapist. Goals and/or treatment plan was established in collaboration with patient/family/other representatives. Therapy Time Individual Concurrent Group Co-treatment Time In 1043 Time Out 1058 Minutes 15 Timed Code Treatment Minutes: 15 Minutes This physical therapist wore appropriate PPE during therapy session. Mily Duarte, SPT * JOHN Ruiz - 12/31/2021 12:13 PM EDT Facility/Department: [facility] ICU T2 Dysphagia Treatment Note [...] Liquids. OK for PO meds with water treatment plant operator. Willcontinue the dysphagia plan of care to [...] 96% BMI 24.14 kg/m INTAKE/OUTPUT: Date 12/31/21 - 12/31/21 235 Shift 4545-3866 3993-1405 6052-7644 24 Hour Total INTAKE P.O.(mL/kg/hr) 0(0) 0 [...] Surgery PGY-2 12/31/21 10:48 AM Pager # [phone] This note may have been dictated using WazeTrip Medical Practice Edition 2.6 and/or Happy Elements Voice Recognition Feature. The document was proofread; however, unrecognized voice recognition automobile insurance claim examiner errors may be present. * Kristopher Jenny Todd, PAIRER SUBSTANDARD - TEST DATA DEVELOPER - 12/31/2021 9:37 AM EDT Images from the original note were not included. [facility] Geriatric Medicine Inpatient Consult Service Admission [...] eGFR >90.0 >60 mL/min EGFR IF NonAfrican Bhutanese >90.0 >60 mL/min Calcium 7.4 (L) 8.4 [...] 0.4 (L) 1.0 - 4.3 10*3/uL Absolute Glasscock # 0.7 0.0 - 0.8 10*3/uL Absolute Eos # 0.0 0.0 - 0.5 10*3/uL Absolute Baso # 0.0 0.0 - 0.2 10*3/uL Lab Results Component Value Date TSH 2.263 12/29/2021 Lab Results Component Value Date [id number] 459 12/30/2021 No results found for: VITD25 [...] RUQ pain. Patient received CT scan at [place] [facility] and was transferred here with concern [...] with KCl 20 mEq infusion IntraVENous Continuous Anesukhwinder Zelaya MD 50 mL/hr at 12/30/21 2235 Rate Verify at 12/30/212234 folic acid 1 mg in sodium chloride 0.9 % 50 mL IVPB 1 mg IntraVENous Daily DESTINY Philip CNP Stopped at 12/30/21 09 PHENobarbital (LUMINAL) injection 16.25 mg 16.25 mg IntraVENous 3 times per day DESTINY Philip CNP 16.25 mg at 12/30/21 2347 bisacodyl (DULCOLAX) suppository 10 mg 10 mg Rectal Daily Isabel Nj APRN - NUTRITION EDUCATOR 10 mg at 12/30/21 1005 melatonin SL liquid 0.3 mg 0.3 mg SubLINGual Nightly PRN DESTINY Philip CNP sodium chloride (Inhalant) 3 % nebulizer solution 4 mL 4 mL Nebulization TID Isabel Nj APRN -NUTRITION EDUCATOR 4 mL at 12/30/212019 thiamine (B-1) 500 mg in sodium chloride 0.9 % 100 mL IVPB 500 mg IntraVENous TID Isabel Nj APRN - NUTRITION EDUCATOR Stopped at 12/30/21 2344 ipratropium-albuterol (DUONEB) nebulizer solution 1 ampule 1 ampule Inhalation Q4H WA Monika Araujo MD 1 ampule at 12/30/212019 [...] injection 4 mg 4 mg IntraVENous Q1H PRSunshine Araujo MD ARE THERE PERTINENT UPDATES TO [...] -- -- -- 69 -- -- 12/30/21 0700 110/63 -- -- [...] Radiology ACCESSION EXAM DATE/TIME PROCEDURE ORDERING PROVIDER [id number] 12/30/2021 07:53 EDT CR Abdomen AP [id number] -ISABEL [place] CPT code 03762 Reason For Exam (CR Abdomen AP) assess [...] AP VIEW) Result Date: 12/29/2021 Patient Name: AJIMIE MCGOVERN Diagnostic Radiology ACCESSION EXAM DATE/TIME PROCEDURE ORDERING PROVIDER [id number] 12/29/2021 10:58 EDT CR Abdomen AP [id number] -NATHALIE, ANEIL CPT code 80602 Reason For Exam (CR Abdomen AP) distention, [...] Tomography ACCESSION EXAM DATE/TIME PROCEDURE ORDERING PROVIDER [id number] 12/27/2021 14:[address] Thorax w/ Contrast [id number] -MONIKA ARAUJO CPT code 54211 Q9967 Reason For Exam (CT Thorax w/ [...] Result Date: 12/30/2021 [id number] Radiology ACCESSION EXAM DATE/TIME PROCEDURE ORDERING PROVIDER [id number] 12/30/2021 06:05 EDT CR Chest Portable MD MACIEL ANDREW CPT code 91441 Reason For Exam (CR Chest Portable) patient [...] Result Date: 12/29/2021 [id number] Diagnostic Radiology ACCESSION EXAM DATE/TIME PROCEDURE ORDERING PROVIDER [id number] 12/29/2021 05:47 EDT CR Chest Portable MONIKA PERES CPT code 82524 Reason For Exam (CR Chest Portable) pneumomediastinum [...] Radiology ACCESSION EXAM DATE/TIME PROCEDURE ORDERING PROVIDER [id number] 12/29/2021 00:49 EDT CR Chest Portable MD MACIEL ANDREW CPT code 31052 Reason For Exam (CR Chest Portable) patient [...] Radiology ACCESSION EXAM DATE/TIME PROCEDURE ORDERING PROVIDER [id number] 12/28/2021 12:22 EDT CR Chest Portable MD GONZALEZ DAVID CPT code 50525 Reason For Exam (CR Chest Portable) s/p [...] PORTABLE Result Date: 12/28/2021 Patient Name: JAIMIE MCGOEVRN Diagnostic Radiology ACCESSION EXAM DATE/TIME PROCEDURE ORDERING PROVIDER [id number] 12/28/2021 05:56 EDT CR Chest Portable [id number] -MONIKA ARAUJO CPT code 44462 Reason For Exam (CR Chest Portable) pneumomediastinum [...] Ultrasound ACCESSION EXAM DATE/TIME PROCEDURE ORDERING PROVIDER [id number] 12/29/2021 16:07 EDT US Thora-Aspir Pleura w/ [id number] -GAYLE, Image MONIKA CPT code 91009 Reason For Exam (US Thora-Aspir Pleura w/ [...] suspect underlying lung disease Gastrointestinal system - LINE SERVER - puree with thin - LFTs wnl [...] MD Division of Trauma Department of Surgery [facility] ~~~~~~~~~~~~~~~~~~~~~~~~~~~~~~~~~~~~~~~~~~~~~~~~~~~~~~~~~~~~~~~~~~~~~~~ This note may have been dictated using W[employer]Trip Medical Practice Edition 2.6 and/or Happy Elements Voice Recognition Feature. The document was proofread; however, unrecognized voice recognition automobile insurance claim examiner errors may be present. * Christiano Gonzalez [...] mentation INTAKE/OUTPUT: Date 12/30/21 0000 - 12/30/21 235 Shift 0037-3475 0526-6226 0441-6330 24 Hour Total INTAKE P.O.(mL/kg/hr) 120(0.3) 120 [...] Gonzalez MD 12/30/2021 11:50 AM * Dacia Wang - 12/30/2021 10:13 AM EDT Occupational Therapy Facility/Department: [facility] ICU T2 Occupational Therapy Initial Assessment Name: Jaimie Mcgovern : 1945 Date of Service: 12/30/2021 Discharge Recommendations: Subacute/Long Term Facility Patient Diagnosis(es): The encounter diagnosis was [...] Ambulation Assistance: Independent Transfer Assistance: Independent Active Fence Manufacture Supervisor: No Mode of Transportation: Family Occupation: Retired [...] due to decreased ROM, 3+/5 distally. Poor manager technical services strength) Sensation: (Pt reports no acute changes) [...] Learning: Cognition Education Outcome: Continued education needed AM-PAC Score AM-PAC Daily Activity Inpatient How much help for putting on and taking off regular lower body clothing?: Total How much help for Bathing?: Total How much help for Toileting?: Total How much help for putting on and taking off regular upper body clothing?: A Lot How much help for taking care of personal grooming?: A Lot How much help for eating meals?: A Little AM-PAC Inpatient Daily Activity Raw Score: 10 AM-PAC Inpatient ADL T-Scale Score : 27.31 ADL Inpatient CMS 0-100% Score: 74.7 ADL Inpatient CMS G-Code Modifier : CL Goals Short Term [...] Time Individual Concurrent Group Co-treatment Time In 08 Time Out 0851 Minutes 26 Timed Code Treatment Minutes: 15 Minutes (1- functional activity) Patient's Occupational Therapy Plan of Care supervision is transferred to [facility] Occupational Therapist. Goals and/or treatment plan was established in collaboration with patient/family/other representatives. This provider wore a surgical mask and gloves for the duration of the session with this patient. Dacia Wang, S/OT * JOHN Shepherd - 12/30/2021 9:45 AM EDT Speech Language Pathology Facility/Department: [facility] T2 Speech Language Pathology Clinical Bedside Swallow Evaluation NAME:Jaimie Mcgovern : 1945 (76 y.o.) ROOM: [facility]/[id number] ADMISSION DATE: 12/27/2021 PATIENT DIAGNOSIS(ES): Pneumatosis of intestines [K63.89] Chief Complaint Patient presents with Abdominal Pain Transfer from [place]. Pt c/o abdominal pain. Patient Active Problem [...] 12/30/2021 Evaluating Therapist: Glenna Colon MA, CCC- LINE SERVER Chest XRAY: 12/29/21 Findings: Right internal jugular [...] congestion." Chief Complaint: Abdominal Pain- Transfer from [place]. Pt c/o abdominal pain. Reason for Referral Jaimie Mcgovern was referred for a bedside swallow evaluation to assess the efficiency of her swallow function, identify signs and symptoms of aspiration, identify risk factors, and make recommendations regarding safe dietary consistencies, effective compensatory strategies, and safe eating environment. Jaimie Mcgovern is a 76 y.o. female who presents to the emergency department from transfer from [facility] . She had originally presented to [facility] via EMS due to pain in [...] Patient alert and resting in bed upon LINE SERVER arrival, RN in room throughout session. Patient fully participate throughout session though required consistent cues from LINE SERVER to maintain level of alertness for safe [...] strategies. Recommend medications in puree asable. Recommend LINE SERVER to follow with dysphagia plan of care. Requires LINE SERVER Intervention: Yes Recommendations: Dysphagia treatment Diet Solids Recommendation: Pureed Liquid Consistency Recommendation: Thin Compensatory Swallowing Strategies : Upright as possible for all oral intake;Small bites/sips;Totalfeed Recommended Form of Meds: Meds in puree Duration of Treatment: 3x/week for 2 weeks Prognosis Good Education LINE SERVER educated patient and RN on safe swallow [...] worn throughout this session. Glenna Colon MA, [facility]-LINE SERVER * Nini Thomas APRN - NUTRITION EDUCATOR - 12/30/2021 9:14 AM EDT Images from the original note were not included. Palliative Care Progress Note Chief Complaint: Jaimie AvendanoPatti a 76 y.o. female with chief complaint of CP, abdominal pain Palliative care is actively following this patient. Assessment/Plan Assessment/Plan Shortness of breath - pending thoracentesis today - on HFNC 50%/35L - pleural effusion - pneumomediastinum - reviewed labs - blood cultures - iv abx - lactic acid down trending - active smoker CORPORATE STAFF ACCOUNTANT - hypertonic saline mebs - duonebs Large R pleural effusion - thoracentesis 12/29/21 with 500ML removed Pneumomediastinum - CTS following, no plans for intervention at this time Cecal pneumatosis - serial films - per SICU team Debility - PT/OT when medically stable - lived alone CORPORATE STAFF ACCOUNTANT, most recently daughter was helping with IADLs - she has refused to move in with children who have asked repeatedly Alcohol abuse - history of cirrhosis - CIWA protocol--much required overnight - on phenobarb, reduced [...] daughter at bedside Psychiatric: Comments: No agitation Caspar Symptom Assessment Score Caspar Score Pain Score 0 Tiredness Score 4 [...] Is patient hospice appropriate? TBD * Mary Palacios, PT - 12/30/2021 8:42 AM EDT Physical Therapy PT evaluation orders received. PT evaluation attempted. Pt currently working with OT. Will reattempt PT evaluation at a later date or as schedule allows. * DESTINY Matthews NP - 12/30/2021 8:35 AM EDT Images from the original note were not included. [facility] Geriatric Medicine Inpatient Consult Service Admission [...] Able to tell me she's in the [facility] but is confused otherwise. Complains of pain in R ribs Denies urinary catheter pain/burning. Await PT recommendations Review of Systems Unable to perform ROS: Mental status change Objective BP (!) 101/53 Pulse 72 Temp 97.3 F (36.3 C) (Temporal) Resp 20 Ht 5' (1.524 m) Wt 123 lb9.6 oz (56.1 kg) SpO2 98% BMI 24.14 [...] eGFR >90.0 >60 mL/min EGFR IF NonAfrican Bhutanese >90.0 >60 mL/min Calcium 7.7 (L) 8.4 [...] 0.7 (L) 1.0 - 4.3 10*3/uL Absolute Glasscock # 0.6 0.0 - 0.8 10*3/uL Absolute [...] eGFR >90.0 >60 mL/min EGFR IF NonAfrican Bhutanese >90.0 >60 mL/min Calcium 7.7 (L) 8.4 [...] 2.263 12/29/2021 Lab Results Component Value Date [id number] 12/30/2021 No results found for: VITD25 Reviewed: active problem list, medication list, lab results, imaging * Scott Durant MD - 12/30/2021 6:57 [...] Date 12/30/21 0000 - 12/30/21 2359 Shift 4013-9017 6596-6871 3755-8124 24 Hour Total INTAKE P.O.(mL/kg/hr) 120 120 [...] Surgery PGY-5 12/30/21 6:57 AM Pager # [phone] This note may have been dictated using [employer] Edition 2.6 and/or Happy Elements Voice Recognition Feature. The document was proofread; however, unrecognized voice recognition automobile insurance claim examiner errors may be present. * Isabel Nj APRN - NUTRITION EDUCATOR - 12/30/2021 6:13 AM EDT Daily SICU Progress Note Nurse Practitioner 12/30/2021 12:22 PM Admit Date: 12/27/2021 Post Hospital Day 2 History of Present illness: 76 y.o. female with significant past medical history of cirrhosis, COPD, hypothyroidism who presents with R shoulder, R chest, and RUQ pain. Patient received CT scan at [facility] ED and was transferred here with concern [...] 100 mL IVPB 500 mg IntraVENous TID Isabel Nj APRN - NUTRITION EDUCATOR Stopped at 12/30/21 09 ipratropium-albuterol (DUONEB) nebulizer solution 1 ampule 1 ampule Inhalation Q4H WA Monika Araujo MD 1 ampule at 12/30/21 [...] mL IntraVENous 2 times per day Monika Aruajo MD 10 mL at 12/29/21 2122 sodium [...] is similar to the chronic pain that alyssa had for years due to her liver [...] Date 12/30/21 0000 - 12/30/21 2359 Shift 6684-4553 0004-9366 2152-9902 24 Hour Total INTAKE P.O. 120 120 I.V.(mL/kg/hr) 580(1.3) 580 IV Piggyback 200 360 560 Shift Total(mL/kg) 900(16.1) 360(6.4) 1260(22.5) OUTPUT Urine(mL/kg/hr) 615(1.4) 450 1065 Shift Total(mL/kg) 615(11) 450(8) 1065(19) Weight (kg) 56.1 56.1 56.1 56.1 Last BM: CORPORATE STAFF ACCOUNTANT Diet: Pureed with thin liquids (per speech) [...] Radiology ACCESSION EXAM DATE/TIME PROCEDURE ORDERING PROVIDER [id number] 12/30/2021 07:53 EDT CR Abdomen AP [id number] -ISABEL NJ CPT code 03007 Reason For Exam (CR Abdomen AP) assess [...] Radiology ACCESSION EXAM DATE/TIME PROCEDURE ORDERING PROVIDER [id number] 12/29/2021 10:58 EDT CR Abdomen AP [id number] -NATHALIEGARRETT JIIL CPT code 02271 Reason For Exam (CR Abdomen AP) distention, [...] Tomography ACCESSION EXAM DATE/TIME PROCEDURE ORDERING PROVIDER [id number] 12/27/2021 14:[address] Thorax w/ Contrast [id number] -MONIKA ARAUJO CPT code 93979 Q9967 Reason For Exam (CT Thorax w/ [...] Radiology ACCESSION EXAM DATE/TIME PROCEDURE ORDERING PROVIDER [id number] 12/30/2021 06:05 EDT CR Chest Portable MD MACIEL ANDREW CPT code 39652 Reason For Exam (CR Chest Portable) patient [...] Radiology ACCESSION EXAM DATE/TIME PROCEDURE ORDERING PROVIDER [id number] 12/29/2021 05:47 EDT CR Chest Portable [id number] -MONIKA ARAUJO CPT code 95658 Reason For Exam (CR Chest Portable) pneumomediastinum [...] Radiology ACCESSION EXAM DATE/TIME PROCEDURE ORDERING PROVIDER [id number] 12/29/2021 00:49 EDT CR Chest Portable MD MACIEL ANDREW CPT code 57985 Reason For Exam (CR Chest Portable) patient [...] Radiology ACCESSION EXAM DATE/TIME PROCEDURE ORDERING PROVIDER [id number] 12/28/2021 12:22 EDT CR Chest Portable MD GONZALEZ DAVID CPT code 43353 Reason For Exam (CR Chest Portable) s/p [...] Radiology ACCESSION EXAM DATE/TIME PROCEDURE ORDERING PROVIDER [id number] 12/28/2021 05:56 EDT CR Chest Portable [id number] -GAYLE, MONIKA CPT code 16704 Reason For Exam (CR Chest Portable) pneumomediastinum [...] Ultrasound ACCESSION EXAM DATE/TIME PROCEDURE ORDERING PROVIDER [id number] 12/29/2021 16:07 EDT US Thora-Aspir Pleura w/ [id number] -MARGIOTTA, Image MONIKA CPT code 52962 Reason For Exam (US Thora-Aspir Pleura w/ [...] - Aggressive pulmonary hygiene Gastrointestinal system - LINE SERVER - puree with thin - LFTs wnl [...] MD Division of Trauma Department of Surgery [facility] ~~~~~~~~~~~~~~~~~~~~~~~~~~~~~~~~~~~~~~~~~~~~~~~~~~~~~~~~~~~~~~~~~~~~~~~ This note may have been dictated using [employer] Medical Practice Edition 2.6 and/or Happy Elements Voice Recognition Feature. The document was proofread; however, unrecognized voice recognition automobile insurance claim examiner errors may be present. * Maki Carey RD, LD - 12/29/2021 4:56 PM EDT Comprehensive Nutrition Assessment Type and Reason for Visit: Initial, Consult ([facility] Prevention 12/29/21) Nutrition Recommendations/Plan: Continue NPO. If po is contraindicated can provide EN. Recommend for EN: Peptide Based (Vital 1.5) @ 35 mls/hour = 1260 kcals, 56g protein, 641 mls free H20 = 24 kcals/kg + 1.07g protein/kg ABW (52.2kgs). Monitor nutritional status. Malnutrition Assessment: Malnutrition Status: At risk for malnutrition (Comment) (12/29/21 5206) Context: Acute Illness Findings of the 6 clinical characteristics of malnutrition: Energy Intake: Mild decrease in energy intake (Comment) Weight Loss: Unable to assess Body Fat Loss: Unable to assess Muscle Mass Loss: Unable to assess Fluid Accumulation: No significant fluid accumulation Inspector Air Carrier Strength: Not Performed Nutrition Assessment: Pt is a 76 y.o. female with PMH significant for alcohol related liver cirrhosis (diagnosed ~5 yearsago), +1 ppd smoker, Buerger s disease (thromboangiitis obliterans), drinks ~3 glasses of wine daily, open vicenta, appy, and hysterectomy who presents [facility] from [facility] for concern for pneumatosis of the [...] Meds Anthropometric Measures: Height: 5' (152.4 cm) [place] Body Weight (IBW): 100 lbs (45 kg) Admission Body Weight: 115 lb (52.2 kg) (stated on admission) Current Body Weight: 122 lb 2.2 oz (55.4 kg), 122.1 % IBW. Weight Source: (estimated) Current BMI (kg/m2): 23.9 BMI Categories: Normal Weight (BMI 18.5-24.9) Estimated Daily Nutrient Needs: Energy Requirements Based On: Kcal/kg Weight Used for Energy Requirements: Admission Energy (kcal/day): 25-28 kcals/kg = 1661-3170 kcals/day Weight Used for Protein Requirements: Admission [...] Too soon to determine Maki Carey RD, LD Contact: Pager #[phone] * Julio César Raygoza MD - 12/29/2021 4:42 PM EDT CARDIOLOGY CONSULTATION Patient Name: Jaimie Mcgovern : 1945 Reason for Consultation: Elevated troponin History of Present Illness: Jaimie Mcgovern is 76 years old. She was transported from [facility] to our institution due to chest [...] 01:39 AM PO2ART 64.8 12/29/2021 01:39 AM KON7FJY 31.1 12/29/2021 01:39 AM INR: Recent Labs [...] in a sinus rhythm. I did a iktdv-lr-cami echocardiogram which showed dynamic left ventricular function [...] was made to ensureaccuracy; however, inadvertent computerized automobile insurance claim examiner errors may be present. * Nadira Sanchez - 12/29/2021 2:31 PM EDT Occupational Therapy Facility/Department: [facility] ICU T2 Occupational Therapy Initial Assessment Name: Jaimie Mcgovern : 1945 Date of Service: 12/29/2021 OT eval and treat orders received. RN requested to hold therapy at this time d/t MD noting pt with worsening condition. Will re-attempt at later date. Jovi Carson/OT * Mily Duarte - 12/29/2021 11:34 AM EDT Physical Therapy PT evaluation orders received. Per RN, hold PT. Per MD notes worsening condition. Will reattempt PTevaluation at a later date or as schedule allows. Mily Duarte, SPT * Kristopher Todd, DESTINY - TEST DATA DEVELOPER - 12/29/2021 9:58 AM EDT Images from the original note were not included. [facility] Geriatric Medicine Inpatient Consult Service Admission [...] Dtr confirms 'full code' with palliative care TEST DATA DEVELOPER Given multiple doses of lorazepam per CIWA. [...] 0.4 (L) 1.0 - 4.3 10*3/uL Absolute Glasscock # 0.4 0.0 - 0.8 10*3/uL Absolute [...] eGFR >90.0 >60 mL/min EGFR IF NonAfrican Bhutanese >90.0 >60 mL/min Calcium 8.1 (L) 8.4 - 10.4 mg/dL Magnesium Collection Time: 12/29/21 1:48 AM Result Value Ref Range Magnesium 1.6 1.6 - 2.3 mg/dL No results found for: TSH No results found for: [id number] No results found for: VITD25 Reviewed: active [...] Date 12/29/21 0000 - 12/29/21 2359 Shift 5997-4713 4252-6226 0237-8677 24 Hour Total INTAKE I.V.(mL/kg) 1500(28.8) 1500(28.8) [...] Date 12/29/21 0000 - 12/29/21 2359 Shift 0851-8418 7071-8931 8251-6066 24 Hour Total INTAKE I.V.(mL/kg) 1500(28.8) 1500(28.8) Shift Total(mL/kg) 1500(28.8) 1500(28.8) OUTPUT Urine(mL/kg/hr) 1350 1350 Shift Total(mL/kg) 1350(25.9) 1350(25.9) Weight (kg) 52.2 52.2 52.2 52.2 I/O last 3 completed shifts: In: 2682 [I.V.:268] Out: 2600 [Urine:2600] No intake/output data recorded. [...] This note may have been dictated using [employer] Medical Practice Edition 2.6 and/or Happy Elements Voice Recognition Feature. The document was proofread; however, unrecognized voice recognition automobile insurance claim examiner errors may be present. * Isabel Nj APRN - NUTRITION EDUCATOR - 12/29/2021 7:04 AM EDT Department of [...] Date 12/29/21 0000 - 12/29/21 2359 Shift 5371-3782 8480-9476 0936-6587 24 Hour Total INTAKE I.V.(mL/kg/hr) 1500 1500 [...] Tylenol, Morphine IV prn, Oxy prn - WA protocol for likely withdrawal (2-3 boxes of [...] AT Staff: Will discuss with Dr. Erendira Hall McMahon NUTRITION EDUCATOR Associated attestation - Erendira Maciel MD - [...] - Aggressive pulmonary hygiene Gastrointestinal system - LINE SERVER - LFTs wnl - history of etoh [...] MD Division of Trauma Department of Surgery [facility] ~~~~~~~~~~~~~~~~~~~~~~~~~~~~~~~~~~~~~~~~~~~~~~~~~~~~~~~~~~~~~~~~~~~~~~~ This note may have been dictated using [employer] Medical Practice Edition 2.6 and/or Happy Elements Voice Recognition Feature. The document was proofread; however, unrecognized voice recognition automobile insurance claim examiner errors may be present. * Blayne Zelaya MD - 12/28/2021 11:09 AM EDT Family Communication Number Called: N/A Name of Designated Family Fire Prevention Captain: Patient's son Family Fire Prevention Captain Updated on the Following: Patient and family at the bedside were updated on work-up and plan of care. Questions answered. Informed consent obtained for central line placement. Risk benefits and alternatives to the procedure were explained at length. Questions were answered. Patient is agreeable to proceeding with central line placement. Blayne Zelaya MD PGY3, General Surgery Pager #[phone] * Christiano Gonzalez MD - 12/28/2021 8:11 [...] [phone] documented in this encounterSUMMA Work Phone: 1(215) 303-289209-15-2022 Hospital Discharge instructions* Discharge Instr - OLIVERIO* Leonarda Casillas RN - 01/07/2022 11:13 AM EDT Continuity of Care Form Patient Name: Jaimie Mcgovern : 1945 Admit date: 12/27/2021 Discharge date: 01/07/22 Code Status Order: Full Code Advance Directives: Admitting Physician: Johnny Berrios MD PCP: Michael Cox MD Discharging Nurse: Leonarda Casillas Discharging Hospital Unit/Room#: 6104/625059 Discharging Unit Emergency Contact: Extended Emergency Contact [...] Assisted Dressing Assisted Toileting Assisted Feeding Independent Enrollment Consultant Independent Med Delivery whole Wound Care Documentation and Therapy: Wound 01/02/22 Thigh Distal;Right (Active) Wound Etiology Skin Tear 01/07/22 08 Dressing Status Clean;Dry;Intact 01/06/221999 Wound Cleansed Soap and water 01/03/22 0727 Dressing/Treatment Foam 01/07/22 0847 Wound Assessment Dry 01/07/22 08 Drainage Amount None 01/06/221999 Odor None 01/06/221999 Lelia-wound Assessment Other (Comment) 01/07/22 0847 Number of days: 4 Incision 01/04/22 Chest Lower;Right (Active) Dressing Status Clean;Dry;Intact 01/07/22 08 Dressing/Treatment Dry dressing 01/07/22 08 Closure Other (Comment) 01/06/221999 Incision Assessment Other [...] Readmission: 17 Discharging to Facility/ Agency Name: [facility] Address: [address] [place] [address] Fax: Dialysis Facility (if applicable) Name: Address: Dialysis Schedule: Phone: Fax: Grinder Setup Operator/Dampener Operator signature: PHYSICIAN SECTION Prognosis: Fair Condition at [...] above information and transfer of Jaimie Mcgovern isnecessary for the continuing treatment of the diagnosis listed and that she requires Long Term Facility for greater 30 days. Update Admission H&P: No change in H&P PHYSICIAN SIGNATURE: [facility] Work Phone: 1(735) 519-749507-29-2022 Miscellaneous Notes* Telephone Encounter - Elizabeth Guido [...] see if placement could be done at [place]. Elizabeth Guido Ma * Telephone Encounter - [...] and I want to go to a Retirement.". Daughter said she is not sure what she needs to do and would like some help. Let her know I would send message through to provider and SW. [facility] in [facility] NotePatient Outreach (INTMMN) JAIMIE AVENDANO ([id number]) 1945 F Date Time Provider Department 10/21/21 [...] for screening mammogram for breast cancer [Z12.31] Order(s):[facility] SCREENING [[id number]] Order #: [id number] FUTURE Prescriptions as of 10/26/2021 - levothyroxine [...] Neuropathy (HCC) [G62.9] 11/17/2017 Encounter Status:Closed by APOORVA ROACH on 10/26/21[facility] 07-11[facility]2021 NoteHNO ID: [id number] Author: Michael Cox MD Service: ? Author Type: Physician Type: Progress Notes Filed: 07/11/2021 11:14 AM Note Text: No charge for visit today. Family brought her in because in the last two weeks, her toes on both feet have turned blue cold and are extremely painful. 10. Even with elevation, has several toes on both feet that are very dusky, blue, cold to touch and painful. Has palpable dorsalis pedis pulses. No redness or warmth. I worry about acute ischemia given her hx and I have absolutely no way of evaluating that over the weekend. To [facility] ER. ER passport completed for transfer of care.[facility] 01-30-2014 History of Past illness Narrative* Problem Noted Date Resolved Date DIABETES MELLITUS TYPE II-UNCOMPL 01/30/2014 documented as of this encounter (statuses as of 10/26/2021) [facility] History of Past illness Narrative* Problem Noted Date Resolved Date DIABETES MELLITUS TYPE II-UNCOMPL 01/30/2014 documented as of this encounter (statuses as of 04/18/2022) [facility] History of Past illness Narrative* Problem Noted Date Resolved Date DIABETES MELLITUS TYPE II-UNCOMPL 01/30/2014 documented as of this encounter (statuses as of 08/20/2022) [facility]* Diagnosis Onset Date Resolution Status PVD (peripheral vascular disease) acute Tobacco user chronic [facility] Work Phone: Evaluation note* Diagnosis Encounter for screening mammogram for breast cancer documented in this encounter [facility] [place] noteNo assessment information availableWHenry County Hospital Work Phone: Evaluation note* Diagnosis Pneumomediastinum [...] of chest tube documented in this encounter [facility] Work Phone: Evaluation note* Diagnosis Onset Date Resolution Status Claudication of right lower extremity chronic [facility] Work Phone: Evaluation note* Diagnosis Onset Date Resolution Status Claudication of right lower extremity chronic PVD (peripheral vascular disease) [facility] Work Phone: Evaluation note* Diagnosis Onset Date Resolution Status PVD (peripheral vascular disease) [facility] Work Phone: Evaluation note* Diagnosis Onset Date Resolution Status Admit Date Osteoarthritis, localized, knee acut e February 06, 2025 9:24am Primary localized osteoarthr itis of left hip acute February 06 9:24am [facility] Work Phone: Hospital Discharge instructionsAmbulatory Orders* Vascular Location: None Selected [facility] Work Phone: Progress note Author Terri Salas [facility] Note Date/Time February 06, 2025 1 0:36am [facility] [address] [place] [address] OFFICE VISIT Date of Service: 02/06/25 MR#: [id number] Acct: [id number] Name: JAIMIE AVENDANO Rep #: [id number] : 1945 Provider: RAYNE Salas Age/Sex: 79/F Location: [facility]SANYA Status: Signed Intake Vital Signs 01/22/25 12:36 02/06/25 09:29 Height 5 ft 3 in 5 ft 3 in Weight: 141 lb BMI 25.0 Intake Visit Reasons: LEFT KNEE Chief Complaint: left knee Accompanied by: Caregiver Is patient in pain?: Yes (Left knee) Pain scale (1-10): 5 Allergies azithromycin Allergy (Intermediate, Verified 02/06/25 09:32) PT UNSURE OF REACTION bisoprolol Allergy (Intermediate, Verified 02/06/25 09:32) PT UNSURE OF REACTION adhesive tape Adverse Reaction (Verified 02/06/25 09:32) Rash Medications ?Medication ?Instructions ?Recorded ?Confirmed ?Type levothyroxine 50 mcg tablet 50 mcg PO DAILY 07/11/21 1 History docusate sodium 100 mg capsule 100 mg PO QHS 01/26/23 02/06/25 History (Colace) furosemide 20 mg tablet (Lasix) 20 mg PO QAM 01/26/23 02/06/25 History melatonin 5 mg capsule mg PO QHS 01/26/23 02/06/25 History spironolactone 25 mg tablet 25 mg PO BID 01/26/2301/23 History meloxicam 7.5 mg tablet 7.5 mg PO DAILY 04/27/23 History aspirin 81 mg tablet,delayed 81 mg PO DAILY #30 tabs 0 04/29/23 02/06/25 Rx release (Adult Aspirin Regimen) atorvastatin 80 mg tablet 80 mg PO QHS #30 tabs 02/06/25 Rx cholecalciferol (vitamin D3) 50 50 mcg PO QDAY 5 02/06/25 History mcg (2,000 unit) capsule cyanocobalamin (vitamin B-12) 1,000 mcg PO QDAY 02/06/25 History 1,000 mcg tablet sitagliptin phosphate 100 mg 100 mg PO QDAY 06/27/24 1 History tablet (Januvia) tramadol 50 mg tablet 50 mg PO DIRECTED pain 30 days 01/14/25 02/06/25 Rx #120 tabs acetaminophen 500 mg tablet 500 mg PO Q6H PRN 02/06/25 02/06/25 History losartan 25 mg tablet 25 mg PO QDAY 02/06/2502/06 History pantoprazole 20 mg tablet,delayed 20 mg PO QDAY 02/06/25 History release trazodone 50 mg tablet mg PO 02/06/25 02/06/25 Hist ory Have you fallen in the past year?: No PFSH Medical History PAD (peripheral artery disease) Neuropathy Dementia Alcohol abuse Anxiety Depression Cirrhosis Smoker Essential hypertension Chronic pain syndrome Surgical History History of repair of right hip joint History of hysterectomy History of appendectomy History of cholecystectomy Family History Other CVA (cerebral vascular accident) Cancer Diabetes Hypertension Social History Smoking Status: Former smoker Tobacco: How many years used: 40 alcohol intake: former substance use type: does not use HPI LEFT KNEE Details: This documentation accurately reflects the service provided and the decisions made by me, BRENDA ReevesC 02/06/25927. Part of today?s visit was documented by Padmini Jacobs RN, acting as scribe. JAIMIE AVENDANO is a 79 year old F here today for left knee pain. She presents ambulating with a walker. She complains of ongoing pain for the last year that has progressively been getting worse. Her knee does feel like it is going to give out on her at times during ambulation. She complains of pain on the lateralknee that extends up her anterior thigh into her groin. She denies previous surgery or trauma to the knee. Denies any known injury or aggravators. Patienthas been using Biofreeze 3 times a daily which helps short-term, [facility]. No bracing or wraps attempted. Patient takes Tylenol 4 times a day and prescription meloxicam with minimal effect over time. Patient states she has pain to the upper leg with activity and in the morning, sharp pain to the inner groin with limited range of motion over the last year, no identified injury. Unable to differentiate if the left groin or left knee pain is worse, states weakness of the quad region. Has noticed significant limited range of motion of her hip over time. History of right hip fracture with repairapproximately 2 years ago. Facility paperwork accompanies patient for today's visit. ROS Const All systems reviewed & are unremarkable except as noted in H and other (A&O x 3,no apparent distress. No recent illness.) ENT Denies dizziness Card Denies chest pain, Denies dyspnea and Denies edema Resp Denies cough, Denies dyspnea and Reports other (No recent URI) GI Reports system reviewed and no additional complaints, except as documented, Denies nausea and Denies vomiting Musc Reports as per HPI, Reports abnormal gait, Reports arthralgias, Reports joint swelling and Reports limited range of motion Neuro Yes abnormal gait, No dizziness and Yes other Psych Reports system reviewed and no additional complaints, except as documented Jonny/Lymph Denies easy bleeding and Denies easy bruising Ortho Exam General General: Yes no acute distress and Yes well groomed Neurologic: Yes alert and Yes oriented x3 Psychologic: Yes reasonable and appropriate Left Knee KNEE: Skin is pink, warm, dry and intact. There is no ecchymosis or skin discoloration present. There is moderate swelling of the lateral suprapatellar region, somewhat spongy in texture Range of motion: 0 to 130 degrees with mild tightness Palpation: No pain on palpation over medial or lateral compartments, patella, lower leg. Mild discomfort with palpation of distal to mid quad. Mild tightness of the mid to distal IT band present Special tests: Robe negative; anterior drawer negative; posterior drawer negative; medial joint opening negative; lateral joint opening negative Lower leg is soft, nontender, easily compressible, Homans negative. Mild crepitus on palpation with today's assessment Gait: Ambulates with antalgic gait with walker, noted on exam, right leg is shorter than left leg, reports since hip surgery 2 years ago Full range of distal joints with no symptom aggravation Distal motor or sensory intact with brisk cap refill at 2 seconds Left Hip HIP: Skin is pink, warm, dry and intact, no skin discoloration present ROM: Flexion 40 degrees; Extension 20 degree; Adduction 10 degrees; Abduction 30 degrees Tenderness: Low back negative; Greater trochanter negative; anterior hip positive to anterior and medial region; SI joint negative Tests: Logroll positive; NICK negative; Straight leg raise positive symptom aggravation with quad weakness noted Supplemental Info Independent review of left knee imaging reviewed during today's visit. There ismild to moderate degenerative changes noted, no acute fracture or malalignment noted. After exam of the knee, additional imaging ordered of the left hip. Independentreview of the left hip x-ray shows advanced degenerative changes with loss of joint spacing. No acute fracture or misalignment noted. Images were collaborated with Dr. Kauffman on date of visit Await radiology report Coding Level of Care Code Off vis,new,level 4 Diagnoses Osteoarthritis, localized, knee M17.10 Primary localized osteoarthritis of left hip M16.12 Assessment and Plan Assessment and Plan (1) Osteoarthritis, localized, knee: Status: Acute Plan: Patient declined cortisone injection after reviewing risk and benefits due to personal preference. We did discuss benefits including both resolution of swelling and pain as well as diagnostic due to concern for advanced degenerativechanges of the left hip. Recommend diclofenac gel 1%, topical 4 times daily to the left knee as needed for pain, swelling and/or stiffness Prescription for meloxicam 7.5 mg p.o. once daily to be taken with previously prescribed meloxicam 7.5 mg making total dose of 15 mg/day x 30 days with 1 refill. Attempted to access most recent lab work to assess kidney function, notavailable in the EHR. If this is effective, will defer further refills to PCP to monitor over time. PT eval and teach HEP Left knee compression sleeve with weightbearing activity, may remove with rest and sleep. Okay to purchase 1 with stability strapping Follow-up in [address] Kauffman for eval of left hip pain and degenerativechanges, sooner for changes or concerns Copy of office visit notes to be faxed to care facility, written paperwork provided Patient in agreement with plan of care This document has been transcribed using WazeT[employer] dictation software. There may beincorrect words, spelling, and punctuation. (2) Primary localized osteoarthritis of left hip: Status: Acute Orders: Orders Knee 4 or More Views Today M25.562 - Pain in left knee Clinical Quality Measures Falls Risk Screening/Assistive Devices Have you fallen in the past year?: No 02/06/25 1257 <Electronically signed by Terri MCLAIN> Date _ Terri MCLAIN Cosigner Signature: Date (if applicable) CC: ~ [facility] Work Phone: Reason for referral (narrative)* Diagnostic Procedure Only (Routine) - Pending Review Specialty Diagnoses / Procedures Referred By Contac t Referred To Contact [facility] Diagnoses Encounter for screening mammogram for breast cancer Procedures JACQUI SCREENING SCREENING MAMMOGRAPHY BI 2-VIEW BREAST INC CAD Michael Cox MD [address] [place] [address] [facility] [address] [place] [address] Referral ID Status Reason Start Date Expiration Date Visits Requested Visits Authorized [id number] Pending Review Auto-Generat ed Referral 10/21/2021 11/20/2022 1 1 [facility] for referral (narrative)No reason for referral [facility] Work Phone: Chief Complaint and Reason for Visit Chief Complaint b/l toes blue and pa inful PAIN LT LEG PVD TEST 08/05 Reason for Visit PVD (peripheral vasc ular disease) Tobacco user Chief Complaint flank pain Chief Complaint flank pain LABWORK LABWORK NEW SYMPTOMS/CONCERNS Chief Complaint LABWORK LABWORK HALFWAY LAB WORK MONTHLY EXAM NEW SYMPTOMS/CONCERNS HALFWAY LAB WORK Chief Complaint LABWORK LABWORK HALFWAY LAB WORK MONTHLY EXAM NEW SYMPTOMS/CONCERNS HALFWAY LABWORK HALFWAY LAB WORK Chief Complaint LABWORK HALFWAY LAB WORK MONTHLY EXAM NEW SYMPTOMS/CONCERNS HALFWAY LABWORK HALFWAY LAB WORK HALFWAY LABWORK NEW SYMPTOMS/CONCERNS Chief Complaint HALFWAY LAB WOR K MONTHLY EXAM NEW SYMPTOMS/CONCERNS HALFWAY LABWORK HALFWAY LAB WORK HALFWAY LABWORK NEW SYMPTOMS/CONCERNS MONTHLY EXAM LABWORK MONTHLY EXAM Chief Complaint HALFWAY LABWORK HALFWAY LAB WORK HALFWAY LABWORK NEW SYMPTOMS/CONCERNS MONTHLY EXAM LABWORK MONTHLY EXAM HALFWAY LABWORK Chief Complaint HALFWAY LABWORK MONTHLY EXAM HALFWAY LABWORK NEW CONCERN HALFWAY LAB WORK MONTHLY EXAM NEW CONCERN HALFWAY LABWORK Chief Complaint HALFWAY LABWORK MONTHLY EXAM HALFWAY LABWORK NEW CONCERN HALFWAY LAB WORK MONTHLY EXAM NEW CONCERN HALFWAY LABWORK HALFWAY LABWORK Chief Complaint HALFWAY LABWORK NEW CONCERN HALFWAY LAB WORK MONTHLY EXAM NEW CONCERN HALFWAY LABWORK HALFWAY LABWORK MONTHLY EXAM HALFWAY LABWORK Peripheral vascular disease, unspecified Chief Complaint NEW CONCERN HALFWAY LAB WORK MONTHLY EXAM NEW CONCERN HALFWAY LABWORK HALFWAY LABWORK MONTHLY EXAM NEW CONCERN HALFWAY LABWORK Peripheral vascular disease, unspecified MONTHLY EXAM CONSULT-PVD LABWORK right hip pain Reason for Visit Claudication of righ t lower extremity Chief Complaint HALFWAY LABWORK MONTHLY EXAM NEW CONCERN HALFWAY LABWORK Peripheral vascular disease, unspecified MONTHLY EXAM CONSULT-PVD LABWORK right hip pain NEW CONCERN NEW CONCERN HALFWAY LABWORK Reason for Visit Claudication of righ t lower extremity Chief Complaint NEW CONCERN HALFWAY LABWORK Peripheral vascular disease, unspecified MONTHLY EXAM CONSULT-PVD LABWORK right hip pain NEW CONCERN NEW CONCERN HALFWAY LABWORK MONTHLY EXAM Peripheral vascular disease, unspecified Reason for Visit Claudication of righ t lower extremity Chief Complaint CONSULT-PVD LABWORK right hip pain NEW CONCERN NEW CONCERN HALFWAY LABWORK MONTHLY EXAM HALFWAY LABWORK Peripheral vascular disease, unspecified NEW CONCERN DISCUSS RESULTS HALFWAY LABWORK Reason for Visit Claudication of righ t lower extremity PVD (peripheral vascular disease) Chief Complaint HALFWAY LABWORK MONTHLY EXAM HALFWAY LABWORK Peripheral vascular disease, unspecified NEW CONCERN DISCUSS RESULTS HALFWAY LABWORK LABWORK Reason for Visit PVD (peripheral vasc ular disease) Chief Complaint HALFWAY LABWORK Peripheral vascular disease, unspecified NEW CONCERN DISCUSS RESULTS HALFWAY LABWORK MONTHLY EXAM - MD NEW CONCERN LABWORK LABWORK Reason for Visit PVD (peripheral vasc ular disease) Chief Complaint HALFWAY LABWORK MONTHLY EXAM - MD NEW CONCERN LABWORK MONTHLY EXAM TEST DATA DEVELOPER LABWORK MONTHLY EXAM NEW CONCERN NEW CONCERN LABWORK MONTHLY EXAM HALFWAY LAB WORK Chief Complaint NEW CONCERN HALFWAY LABWORK Peripheral vascular disease, unspecified MONTHLY EXAM CONSULT-PVD LABWORK right hip pain NEW CONCERN NEW CONCERN HALFWAY LABWORK MONTHLY EXAM HALFWAY LABWORK Peripheral vascular disease, unspecified Reason for Visit Claudication of righ t lower extremity Chief Complaint Admit Date LABWORK March 30, 2024 5 :00am MONTHLY NOTE April 03, 2024 2:26pm HALFWAY LAB WORK April 27, 2024 5:00am MONTHLY EXAM May 08, 2024 3 :45pm NEW CONCERN May 16, 2024 9 :24am HALFWAY LAB WORK June 01, 2024 4:00am HALFWAY LAB WORK June 07 5:00am MONTHLY EXAM June 21, 2024 11:47am Peripheral vascular disease June 27, 2 025 8:21am HALFWAY LAB WORK June 29, 2024 5: 00am MONTHLY EXAM July 03, 2024 3:0 4pm Reason for Visit Admit Date PVD (peripheral vascular disease) June 27, 2024 8:21am Chief Complaint Admit Date HALFWAY LAB WORK April 27, 2024 5:00am MONTHLY EXAM May 08, 2024 3 :45pm NEW CONCERN May 16, 2024 9 :24am HALFWAY LAB WORK June 01, 2024 4:00am HALFWAY LAB WORK June 07 5:00am MONTHLY EXAM June 21, 2024 11:47am Peripheral vascular disease June 27, 2 025 8:21am HALFWAY LAB WORK June 29, 2024 5: 00am MONTHLY EXAM July 03, 2024 3:0 4pm PVD July 31, 2024 10:5 9am Chief Complaint Admit Date MONTHLY EXAM May 08, 2024 3 :45pm NEW CONCERN May 16, 2024 9 :24am HALFWAY LAB WORK June 01, 2024 4:00am HALFWAY LAB WORK June 07 5:00am MONTHLY EXAM June 21, 2024 11:47am Peripheral vascular disease June 27, 2 025 8:21am HALFWAY LAB WORK June 29, 2024 5: 00am MONTHLY EXAM July 03, 2024 3:0 4pm PVD July 31, 2024 10:5 9am ADMISSION EXAM July 31, 2024 5:24 pm Chief Complaint Admit Date HALFWAY LAB WORK June 01, 2024 4:00am HALFWAY LAB WORK June 07 5:00am MONTHLY EXAM June 21, 2024 11:47am Peripheral vascular disease June 27, 2 025 8:21am HALFWAY LAB WORK June 29, 2024 5: 00am MONTHLY EXAM July 03, 2024 3:0 4pm PVD July 31, 2024 10:5 9am ADMISSION EXAM July 31, 2024 5:24 pm HALFWAY LAB WORK August 24, 2024 5:00 am Chief Complaint Admit Date PVD July 31, 2024 10:5 9am ADMISSION EXAM July 31, 2024 5:24 pm HALFWAY LAB WORK August 24, 2024 5:00 am New Concern October 02, 2024 1:57 pm Chief Complaint Admit Date New Concern October 02, 2024 1:57 pm LABWORK November 23, 2024 5:0 0am LABWORK December 28, 2024 5:00am NEW CONCERN January 01, 2025 5:37pm NEW CONCERN January 07, 2025 5:36pm Chief Complaint Admit Date LABWORK November 23, 2024 5:0 0am LABWORK December 28, 2024 5:00am NEW CONCERN January 01, 2025 5:37pm NEW CONCERN January 07, 2025 5:36pm LEFT KNEE February 06, 2025 9 :24am room 4 February 06, 2025 9 :38am Reason for Visit Admit Date Osteoarthritis, localized, knee February 06, 2025 9:24am Primary localized osteoarthritis of left hip February 06, 2025 9:24am Family History Relationship Condition Age at Onset Recorded Date/T [...] Unknown Cerebrovascular accident (CVA) Unknown Advance Directives Advance Directive Response Recorded Date/ Time Living Will Yes July 11, 2021 11:28am Power of Respiratory Physician Yes July 11 11:28am Documents on File Type Date Recorded 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 Advance Directive(s) Advance Directive(s) 04/21/2009 10:48 PM Advance Directive Response Recorded Date/ Time Living Will No December 27, 022 1:33am Power of Respiratory Physician No December 27, 2021 1:33am Documents on File Type Date Recorded 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 ACP-Advance Directive 12/27/2021 Latest Code Status on File Code Status Date Activated Date Inactivated Comments Full Code 12/27/2021 5:57 PM Advance Directive Response Recorded Date/ Time Living Will No December 27, 2 022 12:33am Power of Respiratory Physician No December 27, 2021 12:33am Documents on File Type Date Recorded 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 Advance Directive(s) 04/21/2009 10:48 PM Advance Directive Response Recorded Date/ Time Living Will No May 20 9:02am Power of Respiratory Physician No May 20, 2022 9:02am Advance Directive Response Recorded Date/ Time Living Will No May 20 10:02am Power of Respiratory Physician No May 20, 2022 10:02am Advance Directive Response Recorded Date/ Time Living Will No August 12, 2022 3:01pm Power of Respiratory Physician No August 12 3:01pm Advance Directive Response Recorded Date/ Time Name of Medical Power of Respiratory Physician [place] (jessica trivedi) January 30, 2023 4:43pm Living Will Yes January 30 4:43pm Power of Respiratory Physician Yes January 30, 2 023 4:43pm Advance Directive Response Recorded Date/ Time Living Will Yes February 24 10:52am Power of Respiratory Physician Yes February 24, 2023 10:52am Name of Medical Power of Respiratory Physician [place] (jessica ter) January 30, 2023 3:43pm Advance Directive Response Recorded Date/ Time Living Will Yes February 24 10:52am Power of Respiratory Physician Yes February 24, 2023 10:52am Advance Directive Response Recorded Date/ Time Living Will Yes February 24 11:52am Power of Respiratory Physician Yes February 24, 2023 11:52am Summary Purpose [...] or prosecute any alcohol or drug abuse patient.[facility] Hospital[facility] the event this information is protected by the Federal Confidentiality of Alcohol and Drug Abuse Patient Records regulations: The Federal rules restrict any use of the information to criminally investigate or prosecute any alcohol or drug abuse patient.[facility] HospitalIn the event this information is protected by the Federal Confidentiality of Alcohol and Drug Abuse Patient Records regulations: The Federal rules restrict any use of the information to criminally investigate or prosecute any alcohol or drug abuse patient.[facility] Care Teams (unrecognized sec tion and [...] June 29, 2024 End: June 29, 2024 BRENDA BhatiaC Attending Provider Active Start: June 29, 2024 [...] July 31, 2024 End: July 31, 2024 ALURA Irby Referring Provider Active Star t: July [...] 31, 2024 End: July 31, 2024 Matilda Tickton TEST DATA DEVELOPER, TEST DATA DEVELOPER-C Attending Provider Active Start: July 31, 2024 [...] 2024 End: May 16, 2024 Matilda Doherty TEST DATA DEVELOPER, TEST DATA DEVELOPER-C Attending Provider Active Start: May 16, 2024 [...] Attending Provider Active Start: April 27, 2024 Assistant Guest Services Manager Relationship Specialty Start Date End Date Michael Cox MD [address] [place] [address] [phone] PCP - General Family Practice 11/17/17 Assistant Guest Services Manager Relationship Specialty Start Date End Date Michael Cox MD [address] [place] [address] [phone] PCP - General Family Medicine 12/30/21 Assistant Guest Services Manager Relationship Specialty Start Date End Date Michael Cox MD [address] [place] [address] [phone] PCP - General Family Medicine 11/17/17 Team Status: Active Member Role Status Dates No Primary Care Physician Family Provider Active Dr. Michael Cox MD Primary Care Provider Active Team Status: Inactive Member Role Status Dates Dr. Michael Cox MD Primary Care Provider Active Matilda Doherty NP TEST DATA DEVELOPER-C Attending Provider Active Team Status: Inactive Member [...] MD Primary Care Provider Active Matilda Doherty NP-C Attending Provider Active Team Status: Inactive Member Role Status Dates Dr. Michael Cox MD Primary Care Provider Active Viviana Mcgee MD Attending Provider Active Team Status: Active Member Role Status Dates Dr. Michael Cox MD Primary Care Provider Active Alex Weir MD Attending Provider Active Team Status: Inactive Member Role Status Dates Dr. Michael Cox MD Primary Care Provider Active RAYNE Bhatia Attending Provider Active Team Status: Inactive Member [...] Cruz MD Attending Provider Active Matilda Doherty TEST DATA DEVELOPER, TEST DATA DEVELOPER-C Referring Provider Active Team Status: Active Member Role Status Dates Dr. Michael Cox MD Primary Care Provider Active Matilda Doherty TEST DATA DEVELOPER, TEST DATA DEVELOPER-C Attending Provider Active Team Status: Inactive Member Role Status Dates Dr. Michael Cox MD Primary Care Provider Active Matilda Doherty TEST DATA DEVELOPER, TEST DATA DEVELOPER-C Attending Provider, Referring Provider Active Team Status: [...] MD Primary Care Provider Active Matilda Doherty TEST DATA DEVELOPER, TEST DATA DEVELOPER-C Attending Provider Active Team Status: Inactive Member Role Status Dates Dr. Viviana Mcgee MD Primary Care Provider Active [facility] Attending Provider Active Team Status: Inactive Member [...] Viviana Mcgee MD Primary Care Provider Active BRENDA ChambersC Attending Provider Active Team Status: Inactive Member [...] End: April 03, 2024 Matilda Doherty NP TEST DATA DEVELOPER-C Attending Provider Active Start: April 03, 2024 [...] End: July 31, 2024 Matilda Doherty NP TEST DATA DEVELOPER-C Attending Provider Active Start: July 31, 2024 [...] October 02, 2024 End: October 02, 2024 Team Status: Active Member Role/Relationship Status Dates Dr. Viviana Mcgee MD Primary care physician Activ e Team Status: Inactive Member Role/Relationship Status Dates Dr. Viviana Mcgee MD Primary care physician Activ e Start: October 02, 2024 End: October 02, 2024 Dr. Viviana Mcgee MD Attending physician Active Start: October 02, 2024 End: October 02, 2024 Team Status: Active Member Role/Relationship Status Dates Dr. Viviana Mcgee MD Primary care physician Activ e Start: November 23, 2024 Viviana ABBOTT MD Attending physician Active Start: November 23, 2024 Team Status: Active Member Role/Relationship Status Dates Dr. Viviana Mcgee MD Primary care physician Activ e Start: December 28, 2024 Viviana ABBOTT MD Attending physician Active Start: December 28, 2024 Team Status: Inactive Member Role/Relationship Status Dates Dr. Viviana Mcgee MD Primary care physician Activ e Start: January 01, 2025 End: January 01, 2025 Matilda Doherty NP, TEST DATA DEVELOPER-C Attending physician Active Start: January 01, 2025 End: January 01, 2025 Team Status: Inactive Member Role/Relationship Status Dates Dr. Viviana Mcgee MD Primary care physician Activ e Start: January 07, 2025 End: January 07, 2025 Matilda Doherty NP, TEST DATA DEVELOPER-C Attending physician Active Start: January 07, 2025 End: January 07, 2025 Team Status: Active Member Role/Relationship Status Dates Dr. Viviana Mcgee MD Primary care physician Activ e Start: November 23, 2024 Viviana ABBOTT MD Attending physician Active Start: November 23, 2024 Team Status: Active Member Role/Relationship Status Dates Dr. Viviana Mcgee MD Primary care physician Activ e Start: December 28, 2024 Viviana ABBOTT MD Attending physician Active Start: December 28, 2024 Team Status: Inactive Member Role/Relationship Status Dates Dr. Viviana Mcgee MD Primary care physician Activ e Start: January 01, 2025 End: January 01, 2025 Matilda Doherty NP TEST DATA DEVELOPER-C Attending physician Active Start: January 01, 2025 End: January 01, 2025 Team Status: Inactive Member Role/Relationship Status Dates Dr. Viviana Mcgee MD Primary care physician Activ e Start: January 07, 2025 End: January 07, 2025 Matilda Doherty NP, NP-C Attending physician Active Start: January 07, 2025 End: January 07, 2025 Team Status: Inactive Member Role/Relationship Status Dates Dr. Viviana Mcgee MD Primary care physician Activ e Start: February 06, 2025 End: February 06, 2025 Dr. Viviana Mcgee MD Referring Provider Active Start: February 06, 2025 End: February 06, 2025 RAYNE Reeves Attending physician Active Start: February 06, 2025 End: February 06, 2025 Team Status: Inactive Member Role/Relationship Status Dates Dr. Viviana Mcgee MD Primary care physician Activ e Start: February 06, 2025 End: February 06, 2025 Dr. Jorden Trejo MD Attending physician Active Start: February 06, 2025 End: February 06, 2025 INFORMATION SOURCE (unrecogn ized section and content) DATE CREATED AUTHOR [facility] DATE CREATED AUTHOR AUTHOR'S ORGANIZ ATION 01/28/2022 [facility] [employer] DATE CREATED AUTHOR AUTHOR'S ORGANIZ ATION 04/18/2022 [facility] DATE CREATED AUTHOR AUTHOR'S ORGANIZ ATION 02/08/2025 [facility] Reason for Visit (unrecogniz ed section and content) Reason Comments Abdominal Pain Transfer from [facility] r. Pt c/o abdominal pain. Reason Comments Patient Update Patient Question Help with Retirement Reason Onset Date Comments Population Health Navigation [...] RN) 0000 (Not Given - Provider: Bekah Multani RN - Reason: Patient/family refused)0846 (Given - Provider: [...] or break. 0900 (Automatically Held - Provider: Jovi Maciel MD) 0900 (Automatically Held) 0900 (Automatically [...] 0847 (Given - Provider: Leonarda Casillas RN) ipratropium-albuterol (DUONEB) nebulizer solution 1 ampule [...] RN) 0846 (Patch Applied - Provider: Leonarda Casillas, ARYAN) polyethylene glycol (GLYCOLAX) packet 17 g 17 g, Oral, DAILY, First dose on Tue12/30/21 at 1245, Until Discontinued 09 (Automatically Held - Provider: Jovi Maciel MD) 899 (Automatically Held) 899 (Automatically Held) potassium chloride (KLOR-CON) packet 40 mEq 40 mEq, Oral, 2 TIMES DAILY, First dose on Tue12/31/21 at 0900, Until Discontinued, Dilute with at least 4 ounces of cold water. May further dilute if GI adverse effects occur. 0756 (Given - Provider: Chacorta Snow RN)2011 (Given - Provider: Bekah Multani RN) 0846 (Given - Provider: Sonya Goff RN)2147 (Given - Provider: Bekah Multani RN) 08 (Given - Provider: Leonarda Casillas, ARYAN)2099 (Due) QUEtiapine (SEROQUEL) tablet 50 mg 50 mg, Oral, NIGHTLY, First dose on Tue01/01/22 at 2145, Until Discontinued 2011 (Given - Provider: Bekah Multani RN) 2147 (Given - Provider: Bekah Multani RN) 2099 (Due) sennosides-docusate sodium (SENOKOT-S) 8.6-50 MG tablet 1 tablet 1 tablet, Oral, 2 TIMES DAILY, First dose on Tue12/27/21 at 2100, Until Discontinued 899 (Automatically Held - Provider: Jovi Maciel MD)2099 (Automatically Held - Provider: Jovi Maciel MD) 09 (Automatically Held)2099 (Automatically Held) 09 (Automatically Held)2099 (Automatically Held) sodium chloride (Inhalant) 3 % nebulizer solution 4 mL (CANCELED) 4 mL, Nebulization, 2 TIMES DAILY, First dose (after last modification) on Tue01/02/22 at 1600, Until Discontinued 0925 (Given - Provider: Lou Yan RCP)1747 (Given [...] mL/lumen 0755 (Given - Provider: Chacorta Snow RN)2013 (Given - Provider: Bekah Multani RN) 0847 (Given - Provider: Sonya Goff, ARYAN)2149 (Given - Provider: Bekah Multani RN) 0847 [...] frequent line interruptions/ long duration, Starting on [place] 12/27/21 at 1757, For piggyback infusion, administer [...] Zepeda LPN) 2148 (Given - Provider: Bekah Multani, ARYAN) ondansetron (ZOFRAN) injection 4 mg 4 mg, IntraVENous, EVERY 6 HOURS PRN, Starting on Tue12/27/21 at 1757, Until Discontinued, Nausea, Vomiting oxyCODONE (ROXICODONE) immediate release tablet 10 mg(Linked Group 1) 10 mg, Oral, EVERY 4 HOURS PRN, Starting on Tue12/27/21 at 1757, Until Discontinued, Pain Severe (7-10) 0754 (Given - Provider: Chacorta Snow RN)1356 (Given - Provider: Chacorta Snow, ARYAN)2011 (Given - Provider: Bekah Multani RN) 1558 (Given - Provider: Sonya Goff RN)2148 (Given - Provider: Bekah Multani RN) 0847 [...] mL 5-40 mL, IntraVENous, PRN, Starting on 12/27/21 at 1757, Until Discontinued, Line Care, After [...] mL 5-40 mL, IntraCATHeter, PRN, Starting on Tue12/28/21 at 1800, Until [...] BE BASED ON THE PRIMARY CLINICAL RECORDS. [facility] [employer] [facility]. provides no warranty or guarantee of the accuracy or completeness of information in this document.
[2025-03-01 07:34] LABS: Vitamin B12 542 pg/mL (180-914)
== END ==
LOC: OLS.WHLTSB 05:00
PROVIDERS: PCP Internal Medicine; Visit Provider Internal Medicine
DX: E03.9 Hypothyroidism, unspecified (principal); J98.2 Interstitial emphysema; J44.9 Chronic obstructive pulmonary disease, unspecified; I10 Essential (primary) hypertension; G89.29 Other chronic pain
CPT/HCPCS: 36415; 82607; 84443

== ENCOUNTER → 2025-03-04 | Outpatient (CLI) | payer MEDICARE, MEDICAID, SELFPAY ==
--- NOTE | 2025-03-04 13:55 | RAD_ITS ---
PROCEDURE: LUMBAR SPINE 2 OR 3 VIEWS 03/04/2025 REASON FOR EXAM: HIP AND KNEE PAIN TECHNIQUE: Procedure Code: RADSPLL Modality: DX Procedure: LUMBAR SPINE 2 OR 3 VIEWS FINDINGS: No evidence of acute fracture or dislocation. Levoscoliosis. [id number] degenerative changes of the visualized spine. Vses-ys-aipecxmi superior endplate compression deformity of L2 of undetermined age. Grade 1 anterolisthesis of L4 on L5. RAD/Lumbar Spine 2 or 3 Views IMPRESSION: Spondylosis. Spondylolisthesis. Scoliosis. Reading Location: [id number]
== END | disposition home or self-care (01) ==
PROVIDERS: PCP Internal Medicine; Referring Provider Orthopaedic Surgery; Visit Provider Orthopaedic Surgery
DX: M16.12 Unilateral primary osteoarthritis, left hip (principal)
CPT/HCPCS: 72100